=== PATIENT | female | born 1970 | race Caucasian/White ===

== ENCOUNTER → 2017-03-06 | Outpatient (CLI) | payer OTHER ==
[2017-03-06 10:34] LABS: ALT 24 U/L (9-52); AST 19 U/L (14-36); Alkaline Phosphatase 72 U/L (38-126); Anion Gap 11 mmol/L; Blood Urea Nitrogen 17 mg/dL (7-17); Calcium 9.4 mg/dL (8.4-10.2); Carbon Dioxide 23 mmol/L (22-30); Chloride 105 mmol/L (98-107); Cholesterol 283 mg/dL (<200); Glucose 111 mg/dL (74-99); HDL Cholesterol 56 mg/dL (40-60); Non-African American GFR(MDRD) >60 (>60 ml/min/1.73 sqM); Potassium 3.8 mmol/L (3.5-5.1); Sodium 139 mmol/L (137-145); Total Bilirubin 0.5 mg/dL (0.2-1.3); Total Protein 7.5 g/dL (6.3-8.2); Triglycerides 169 mg/dL (<150)
== END | disposition home or self-care (01) ==
LOC: LABWHC1 09:26
PROVIDERS: ATTEND Internal Medicine Cardiovascular Disease
DX: E78.5 Hyperlipidemia, unspecified (principal); R06.02 Shortness of breath
CPT/HCPCS: 36415; 80053; 80061; 83880

== ENCOUNTER 2017-04-10 22:24 | Emergency (ER) | payer OTHER ==
[2017-04-10] MEDS ORDERED: PROPARACAINE 0.5% OPHTH DROPS 15 ML BTL BOTH EYES STA (22:59)
--- NOTE | 2017-04-10 23:04 | ED ---
ENT HPI - General Chief complaint: ENT Stated complaint: eye drainage & burning Time Seen by Provider: 04/10/17 22:53 Source: patient, RN notes reviewed, old records reviewed Mode of arrival: ambulatory Limitations: no limitations - History of Present Illness Initial comments: 47-year-old female complains of bilateral eye pain and burning and drainage for the past 3 days. She reports that he pain originally started on Thursday. She states that she was recently got over an eye infection and was put on polymyxin B drops. Patient reports that she stop the drops on Thursday. She was good for a day. Then the irritation restarted on Thursday. She reports that she thinks she may have been bit by a mosquito near in her left eye. She states it's a clear fluid in denies any yellow or green drainage. She reports that her eyes feel dry. She states that the eye pain is worse in the left eye. She denies any fevers or chills. She reports she does have a mild headache due to the eye pain. Patient reports that she did start to wear her contacts yesterday on despite having the eye pain. She did not wear her contacts today. - Related Data Previous Rx's Medication Instructions Recorded Atorvastatin [Lipitor] 10 mg PO HS #30 tab 08/28/16 Docusate [Colace] 100 mg PO BID #60 cap 08/28/16 EPINEPHrine (Auto Inject) [Epipen] 0.3 mg IM ONCE PRN #1 syringe 08/28/16 LORazepam [Ativan] 0.5 mg PO HS #30 tab 08/28/16 Levothyroxine Sodium [Synthroid] 75 mcg PO DAILY #30 tab 08/28/16 Loratadine [Claritin] 5 mg PO DAILY #30 tab 08/28/16 Nicotine 14Mg/24Hr Patch [Habitrol] 1 patch TRANSDERM DAILY #28 patch 08/28/16 Pantoprazole Sodium [Protonix] 40 mg PO DAILY #30 tablet.dr 08/28/16 Propranolol [Inderal] 40 mg PO BID #60 tab 08/28/16 Tiotropium 18 Mcg/Puff [Spiriva] 1 cap INHALATION RT-DAILY #1 08/28/16 inhaler Topiramate [Topamax] 50 mg PO BID #120 tab 08/28/16 Triamterene-Hctz 37.5-25Mg 1 cap PO DAILY #30 cap 08/28/16 [Dyazide 37.5-25 Capsule] Venlafaxine HCl ER [Effexor XR] 150 mg PO DAILY #30 cap.er.24h 08/28/16 risperiDONE [RisperDAL] 2 mg PO BID #60 tab 08/28/16 Ciprofloxacin Ophth Soln [Cipro 1 drops LEFT EYE Q4HR #1 bottle 04/10/17 0.3% Ophth Soln] Ketotifen 0.025% Ophth Soln 1 drop BOTH EYES BID #1 bottle 04/10/17 [Zaditor] Allergies Allergy/AdvReac Type Severity Reaction Status Date / Time furosemide [From Lasix] Allergy hypotension Verified 04/10/17 22:49 ibuprofen [From Motrin] Allergy Unknown Verified 04/10/17 22:49 Review of Systems ROS Statement: Those systems with pertinent positive or pertinent negative responses have been documented in the HPI. ROS Other: All systems not noted in ROS Statement are negative. Past Medical History Past Medical History: Asthma, Heart Failure, COPD, Hyperlipidemia, Hypertension , Myocardial Infarction ([place]), Seizure Disorder, Thyroid Disorder Additional Past Medical History / Comment(s): IBS, colitis, fibromyalgia, restless legs flexed syndrome, migraine, vitamin D deficiency, left breast mass a 1 cm, gastritis Last Myocardial Infarction Date:: unknown History of Any Multi-Drug Resistant Organisms: None Reported Past Surgical History: Appendectomy, Hysterectomy Additional Past Surgical History / Comment(s): D&C, uterine ablation, bilateral arthroscopic knee of the knees Past Anesthesia/Blood Transfusion Reactions: No Reported Reaction Past Psychological History: Anxiety, Bipolar, Depression Smoking Status: Current every day smoker Past Alcohol Use History: Rare Past Drug Use History: Marijuana - Past Family History Father Additional Family Medical History / Comment(s): Father is 59 years of age with history of heart problems. Mother Additional Family Medical History / Comment(s): Mother is alive at age 62 with history of heart failure. Brother(s) Additional Family Medical History / Comment(s): Patient had 1 brother that at 5 months of age. Sister(s) Additional Family Medical History / Comment(s): Patient has one sister with history of depression and bipolar. Patient has 2 half-sisters and one at age 26 from overdose. Patient does not have any children. General Exam - General Exam Comments Initial Comments: 47-year-old female. No distress. Limitations: no limitations General appearance: alert, in no apparent distress Head exam: Present: atraumatic, normocephalic, normal inspection Eye exam: Present: normal appearance, PERRL, EOMI, conjunctival injection ( Bilateral conjunctival injection. Left eye is worse on the right .). Absent: scleral icterus, periorbital swelling ENT exam: Present: normal exam, normal oropharynx, mucous membranes moist Neck exam: Present: normal inspection. Absent: tenderness, meningismus, lymphadenopathy Respiratory exam: Present: normal lung sounds bilaterally. Absent: respiratory distress, wheezes, rales, rhonchi, stridor Cardiovascular Exam: Present: regular rate, normal rhythm, normal heart sounds. Absent: systolic murmur, diastolic murmur, rubs, gallop, clicks GI/Abdominal exam: Present: soft, normal bowel sounds. Absent: distended, tenderness, guarding, rebound, rigid Extremities exam: Present: normal inspection, full ROM, normal capillary refill. Absent: tenderness, pedal edema, joint swelling, calf tenderness Back exam: Present: normal inspection Neurological exam: Present: alert, oriented X3, CN II-XII intact Psychiatric exam: Present: normal affect, normal mood Skin exam: Present: warm, dry, intact, normal color. Absent: rash Course Vital Signs 04/10/17 22:45 Temperature 97.5 F L Pulse Rate 76 Respiratory 20 Rate Blood Pressure 100/51 O2 Sat by Pulse 97 Oximetry Medical Decision Making - Medical Decision Making 47-year-old female complains of bilateral eye pain and burning and drainage for the past 3 days. She reports that he pain originally started on Thursday. She states that she was recently got over an eye infection and was put on polymyxin B drops. Patient reports that she stop the drops on Thursday. She was good for a day. Then the irritation restarted on Thursday. She reports that she thinks she may have been bit by a mosquito near in her left eye. She states it's a clear fluid in denies any yellow or green drainage. She reports that her eyes feel dry. Patient does have significant conjunctivitis in the left eye. There is an area of firmness towards the epicanthus consistent with possible insect or mosquito bite. Patient's were seen eye exam was performed shows no evidence of ulcerations. Pressures were normal at 16 and for the right eye and 15 for the left eye. Patient visual acuity was mildly disturbed with 20/50 of the left eye and 20/30 of the right eye. She reports that she is typically 20/30 does have to wear glasses and contacts. Patient has been advised to use antihistamines as it does appear to be somewhat of an ALLERGIC reaction over the eye. Patient will be started on Zaditor drops. Given she also wears contacts and has been rubbing her eyes frequently and would also like to cover her for infection. She is recently finished polymyxin B drops. Discussed that with contacts there is more likely to have a soonest pseudomonas infection and she will be started on Cipro drops. Discussed no use of contacts. Discussed if it worsens he needs return to the emergency department. Patient agrees to treatment plan will comply. Return parameters were discussed. Discussed close follow-up with egg worker referral. Disposition Clinical Impression: Allergic conjunctivitis, left eye Disposition: HOME SELF-CARE Condition: Good Instructions: Conjunctivitis (ED) Additional Instructions: Patient is to follow-up with primary care provider as well as egg worker. No contact use until cleared. Use the ALLERGY drops and continue to take Benadryl. Patient should take Motrin and Tylenol for pain. Patient also use the antihistamine drops, and antibiotic drops. Prescriptions: Ciprofloxacin Ophth Soln [Cipro 0.3% Ophth Soln] 1 drops LEFT EYE Q4HR #1 bottle Ketotifen 0.025% Ophth Soln [Zaditor] 1 drop BOTH EYES BID #1 bottle Referrals: Evelio Álvarez MD [Primary Care Provider] - 1-2 days Edward Hall MD [STAFF PHYSICIAN] - 1-2 days Time of Disposition: 23:27
[2017-04-10] MEDS ORDERED: CIPROFLOXACIN 0.3% OPHTH SOLN 2.5 ML BTL LEFT EYE STA (23:19)
[2017-04-10] MEDS ORDERED: KETOTIFEN 0.025% OPHTH DROPS 5 ML BTL LEFT EYE STA (23:19)
[2017-04-10 23:38] VITALS: BP 118/74; PULSE 63; RESP 15; TEMP 97.9
== END 2017-04-10 23:37 | disposition home or self-care (01) ==
LOC: EC 22:24
DX: H10.12 Acute atopic conjunctivitis, left eye (principal); F17.200 Nicotine dependence, unspecified, uncomplicated; Z88.6 Allergy status to analgesic agent; Z88.8 Allergy status to other drugs, medicaments and biological substances
CPT/HCPCS: 99283

== ENCOUNTER → 2017-04-22 | Outpatient (CLI) | payer OTHER ==
--- NOTE | 2017-04-22 13:58 | MM ---
Reason for exam: clinical finding. History: Patient is postmenopausal and is nulliparous. Family history of breast cancer in paternal aunt at age 42. Took hormonal contraceptives for 6 months. Indicated problem(s): lump or thickening in the left breast. Physical Findings: Nurse Summary: 0.5cm nodule in the left breast at 6 o'clock (nurse jack). [facility] Diagnostic Mammo w CAD MIKE Bilateral CC and MLO view(s) were taken. There are scattered fibroglandular densities. There is no discrete abnormality including area of concern. No significant new findings when compared with previous films. These results were verbally communicated with the patient and result sheet given to the patient on 04/22/17. ASSESSMENT: Incomplete: need additional imaging evaluation, BI-RAD 0 RECOMMENDATION: Ultrasound of the left breast. Manage patient on a clinical basis.
--- NOTE | 2017-04-22 13:58 | USB ---
Reason for exam: additional evaluation requested from abnormal screening. History: Patient is postmenopausal and is nulliparous. Family history of breast cancer in paternal aunt at age 42. Took hormonal contraceptives for 6 months. US Breast Limited LT Left breast ultrasound demonstrates no cystic or solid lesion seen. These results were verbally communicated with the patient and result sheet given to the patient on 04/22/17. ASSESSMENT: Negative, BI-RAD 1 RECOMMENDATION: Routine screening mammogram of both breasts in 1 year. Manage patient on a clinical basis.
--- NOTE | 2017-04-29 15:44 | P.ARTDOP ---
Arterial Doppler LOWER EXTREMITY ARTERIAL DOPPLER: DATE OF SERVICE: 04/22/2017 Reason for study: Bilateral leg pain. Doppler waveforms: Multiphasic bilaterally throughout. Pulse volume recording: []. Pressure gradients: None. Ankle-brachial indices: Greater than 1 bilaterally. Toe pressures: [] on the right, [] on the left Impression: Normal study.
== END | disposition home or self-care (01) ==
LOC: RADMAMWWP 11:54
PROVIDERS: ATTEND Internal Medicine
DX: N63 Unspecified lump in breast (principal); M79.1 Myalgia
CPT/HCPCS: 93922; 76642; G0204

== ENCOUNTER → 2017-04-23 | Outpatient (CLI) | payer OTHER ==
--- NOTE | 2017-04-23 11:45 | MR ---
EXAMINATION TYPE: MR brain/cspine wo DATE OF EXAM: 04/23/2017 10:56 AM COMPARISON: NONE HISTORY: Neck pain, leg spasms, loss of balance Multiplanar and multispin-echo imaging of the brain was performed . The ventricles, basal cisterns and sulci overlying the cerebral convexities are within normal limits. There is no evidence for midline shift or mass effect. Acute intracranial hemorrhage or extra-axial collection is not evident. Approximately 4to 5 tiny nonspecific foci of increased signal within the deep white matter of both ce rebral hemispheres. No acute edema is identified. The paranasal sinuses and mastoid air cells are well-aerated. IMPRESSION: Nonspecific white matter changes. EXAMINATION TYPE: MR brain/cspine wo DATE OF EXAM: 04/23/2017 10:56 AM COMPARISON: NONE HISTORY: Neck pain, leg spasms, loss of balance Multiplanar MultiSpin echo imaging of the cervical spine was performed. Comparison: none C2-C3: No evidence for degenerative disc disease. No disc bulge/herniation or protrusion. No Canal stenosis. Foramina are patent bilaterally. C3-C4: Mild disc desiccation noted. Left paracentral disc bulge mildly effaces the ventral thecal sac . No evidence for central stenosis. No foraminal encroachment identified. C4-C5: Mild disc desiccation noted. Posterocentral disc bulge with small disc protrusion. Mild efface ment ventral thecal sac. No evidence for cord contact or central stenosis. Foramina are patent bilate rally. C5-C6: Moderate disc desiccation with mild to moderate circumferential disc bulge. Small left paracen tral disc protrusion suspected. Mild encapsulating spur resulting in hard disc. Effacement of the ngozi tral thecal sac with mild constriction noted however no definite overt stenosis is present at this ti me. Mild left foraminal encroachment is identified. C6-C7: Mild disc desiccation is identified. No disc bulge/herniation or protrusion. No Canal stenosi s. Foramina are patent bilaterally. C7-T1: No evidence for degenerative disc disease. No disc bulge/herniation or protrusion. No Canal stenosis. Foramina are patent bilaterally. Cervical segments are intact. There is normal alignment. Cervical spinal cord is of normal signal. Craniovertebral junction relationships are within normal limits. IMPRESSION: 1. Multilevel degenerative disc disease. 2. Disc bulging and small protrusions as discussed. Constriction of the ankle sac at C5-[address] stenosis. See above.
== END | disposition home or self-care (01) ==
LOC: RADMRIMAIN 09:42
PROVIDERS: ATTEND Psychiatry & Neurology Neurology
DX: R90.82 White matter disease, unspecified (principal); M50.30 Other cervical disc degeneration, unspecified cervical region; M50.21 Other cervical disc displacement, high cervical region
CPT/HCPCS: 70551; 72141

== ENCOUNTER 2017-04-30 20:06 | Inpatient (IN) | payer OTHER ==
[2017-04-30] MEDS ORDERED: SODIUM CHLORIDE 0.9% 1,000 ML IV STA (21:43)
[2017-04-30] MEDS ORDERED: levETIRAcetam IV 500 MG in SODIUM CHLORIDE 0.9% 100 ML IVPB STA (21:45)
[2017-04-30] MEDS ORDERED: NALOXONE 0.4 MG/ML 1 ML VIAL IV PRN (22:02)
--- NOTE | 2017-04-30 22:07 | ED ---
Seizure HPI <Philipp Sandhu - Last Filed: 04/30/17 22:14> - General Source: patient Mode of arrival: wheelchair Limitations: no limitations <Ceci Flores - Last Filed: 04/30/17 22:28> - General Chief Complaint: Seizure Stated Complaint: Seizure Time Seen by Provider: 04/30/17 20:51 - History of Present Illness Initial Comments: 47-year-old female patient presents to emergency department today for evaluation after having a seizure at home. Patient was seen earlier in the department for similar symptoms and admitted, however left from the fifth floor against medical advice. Patient states that when she got home she was resting on the couch, patient states that next thing she knew she woke up, stated she was very groggy and confused. Patient believed she had a seizure at that time. She denies any loss of bowel or bladder function. She states that no one was home at the time and therefore the episode was unwitnessed. Patient states that she currently has a migraine headache, feels very tired, and is requesting to be admitted again. Patient denies any neck pain, chest pain, shortness of breath, abdominal pain, nausea, vomiting, difficulty with urination or bowel movements. She denies any fever or chills. Denies any falls or injuries from the seizure. Patient states that the seizures began over the last 2 weeks. She denies any history of seizures prior to this. Patient states that she did have an MRI for history of migraines and neck pain 1 week ago. (Ceci Flores) - Related Data Home Medications Medication Instructions Recorded Confirmed Albuterol Inhaler [Ventolin Hfa 1 - 2 puff INHALATION RT-Q6H PRN 04/30/17 Inhaler] Albuterol Nebulized [Ventolin 2.5 mg INHALATION RT-Q4H 04/30/17 04/30/17 Nebulized] Asenapine Maleate [Saphris] 10 mg SUBLINGUAL BID 04/30/17 04/30/17 Estradiol [Estrace] 1 mg PO DAILY 04/30/17 04/30/17 Fluticasone/Vilanterol [Breo 1 puff INHALATION RT-DAILY 04/30/17 04/30/17 Ellipta 100-25 Mcg Inhaler] Gabapentin 600 mg PO TID 04/30/17 04/30/17 Sertraline [Zoloft] 150 mg PO DAILY 04/30/17 04/30/17 Topiramate [Topamax] 25 mg PO BID 04/30/17 04/30/17 cloNIDine HCL [cloNIDine HCL] 0.3 mg PO TID 04/30/17 04/30/17 rOPINIRole HCL [Requip] 1.5 mg PO HS 04/30/17 04/30/17 traZODone HCL [Desyrel] 200 mg PO HS 04/30/17 04/30/17 Previous Rx's Medication Instructions Recorded Atorvastatin [Lipitor] 10 mg PO HS #30 tab 08/28/16 Docusate [Colace] 100 mg PO BID #60 cap 08/28/16 EPINEPHrine (Auto Inject) [Epipen] 0.3 mg IM ONCE PRN #1 syringe 08/28/16 Levothyroxine Sodium [Synthroid] 75 mcg PO DAILY #30 tab 08/28/16 Loratadine [Claritin] 5 mg PO DAILY #30 tab 08/28/16 Pantoprazole Sodium [Protonix] 40 mg PO DAILY #30 tablet.dr 08/28/16 Propranolol [Inderal] 40 mg PO BID #60 tab 08/28/16 Tiotropium 18 Mcg/Puff [Spiriva] 1 cap INHALATION RT-DAILY #1 08/28/16 inhaler Triamterene-Hctz 37.5-25Mg 1 cap PO DAILY #30 cap 08/28/16 [Dyazide 37.5-25 Capsule] Allergies Allergy/AdvReac Type Severity Reaction Status Date / Time bee venom protein (honey bee) Allergy Anaphylaxis Verified 04/30/17 20:50 furosemide [From Lasix] Allergy hypotension Verified 04/30/17 20:50 ibuprofen [From Motrin] Allergy Unknown Verified 04/30/17 20:50 Review of Systems ROS Other: All systems not noted in ROS Statement are negative. <Philipp Sandhu - Last Filed: 04/30/17 22:14> ROS Other: All systems not noted in ROS Statement are negative. <Ceci Flores - Last Filed: 04/30/17 22:28> ROS Statement: Those systems with pertinent positive or pertinent negative responses have been documented in the HPI. Past Medical History Past Medical History: Asthma, Heart Failure, COPD, Hyperlipidemia, Hypertension , Myocardial Infarction ([place]), Seizure Disorder, Thyroid Disorder Additional Past Medical History / Comment(s): Migraines which have recently been more severe, new seizures per pt, IBS, colitis, fibromyalgia, restless legs syndrome, vitamin D deficiency, left breast mass a 1 cm being monitored, gastritis, hiatal hernia, hypothyroid. Pt states she had a stress test yesterday at [facility] and a recent MRI of head/neck and a recent mammogram. Last Myocardial Infarction Date:: Pt states 2013-hospitalized at [facility] History of Any Multi-Drug Resistant Organisms: None Reported Past Surgical History: Appendectomy, Hysterectomy, Orthopedic Surgery, Uterine Ablation Additional Past Surgical History / Comment(s): D&C, bilateral arthroscopic knee sx, EGD/colonoscopy Past Anesthesia/Blood Transfusion Reactions: No Reported Reaction Past Psychological History: Anxiety, Bipolar, Depression Smoking Status: Current every day smoker Past Alcohol Use History: None Reported Past Drug Use History: Marijuana - Past Family History Father Family Medical History: Cancer Additional Family Medical History / Comment(s): Father of pancreatic cancer at the age of 62yrs. Mother Family Medical History: Congestive Heart Failure (CHF) Additional Family Medical History / Comment(s): Mother of CHF at the age of 60yrs. Brother(s) Additional Family Medical History / Comment(s): Patient had 1 brother that at 5 months of age. Sister(s) Additional Family Medical History / Comment(s): Patient has one sister with history of depression and bipolar. Patient has 2 half-sisters and one at age 26 from overdose. Patient does not have any children. <Ceci Flores - Last Filed: 04/30/17 22:28> General Exam Limitations: no limitations General appearance: in no apparent distress, other (Patient is drowsy) Head exam: Present: atraumatic, normocephalic, normal inspection Eye exam: Present: normal appearance, PERRL, EOMI. Absent: scleral icterus, conjunctival injection, periorbital swelling ENT exam: Present: normal exam, normal oropharynx, mucous membranes moist Neck exam: Present: normal inspection. Absent: tenderness, meningismus, lymphadenopathy Respiratory exam: Present: normal lung sounds bilaterally. Absent: respiratory distress, wheezes, rales, rhonchi, stridor Cardiovascular Exam: Present: regular rate, normal rhythm, normal heart sounds. Absent: systolic murmur, diastolic murmur, rubs, gallop, clicks GI/Abdominal exam: Present: soft, normal bowel sounds. Absent: distended, tenderness, guarding, rebound, rigid Extremities exam: Present: normal inspection, full ROM, normal capillary refill. Absent: tenderness, pedal edema, joint swelling, calf tenderness Back exam: Present: normal inspection Neurological exam: Present: oriented X3, CN II-XII intact. Absent: alert ( Drowsy), other (Patient is arousable to verbal stimuli. Slow to respond however answers are appropriate. ) Psychiatric exam: Present: normal affect, normal mood Skin exam: Present: warm, dry, intact, normal color. Absent: rash <Ceci Flores - Last Filed: 04/30/17 22:28> Medical Decision Making <Philipp Sandhu - Last Filed: 04/30/17 22:14> <Ceci Flores - Last Filed: 04/30/17 22:28> - Medical Decision Making Patient reportedly left AMA earlier and went home and had another seizure. Case was discussed with Dr. Laws who will readmit the [facility] call. (Philipp Sandhu) 47-year-old female patient sent to emergency department today for evaluation after experiencing a seizure at home. The patient reportedly left AMA earlier today after being admitted for a similar episode. Patient was brought back in stating that she agrees to be admitted again. Lab work was performed. Keppra 500 mg given in emergency department. No CT of the brain was ordered as patient did have an MRI one week ago, she states that seizures did start prior to the MRI however she did not inform her neurologist of this. Dr. Sandhu by attending did speak to Dr. Delong and patient will be admitted for fruther neurological evaluation. (Ceci Flores) Disposition <Philipp Sandhu - Last Filed: 04/30/17 22:14> Decision to Admit Reason: Admit from EC Decision Date: 04/30/17 Decision Time: 22:07 <Ceci Flores - Last Filed: 04/30/17 22:28> Clinical Impression: New onset seizure Disposition: ADMITTED IP TO THIS [facility] Condition: Fair Referrals: Evelio Álvarez MD [Primary Care Provider] - 1-2 days
[2017-04-30 22:25] LABS: Appearance,Urine Clear (Clear); Bilirubin,Urine Negative (Negative); Glucose,Urine (UA) Negative (Negative); Ketones,Urine Negative (Negative); Leukocyte Esterase,Urine Negative (Negative); Nitrite,Urine Negative (Negative); PH, Urine 6.5 (5.0-8.0); Protein,Urine Negative (Negative); Specific Gravity,Urine 1.006 (1.001-1.035); UA Billing (MACRO vs. MICRO) CHEM; Urobilinogen,Urine <2.0 mg/dL (<2.0)
[2017-04-30 22:48] LABS: Basophils % (A) 1 %; CH 33.2; CHCM 34.1; Eosinophils % (A) 3 %; HCT 43.8 % (34.0-46.0); HDW 2.45; HGB 15.2 gm/dL (11.4-16.0); Luc % (Auto) 2; Lymphocytes % (A) 33 %; MCHC 34.8 g/dL (31.0-37.0); MCV 97.8 fL (80.0-100.0); Mean Platelet Volume 6.4; Monocytes % (A) 6 %; Neutrophils # (A) 6.6 k/uL (1.3-7.7); Neutrophils % (A) 56 %; RBC 4.47 m/uL (3.80-5.40); RDW 12.7 % (11.5-15.5); WBC 11.8 k/uL (3.8-10.6); WBC (Perox) 11.62
[2017-04-30 22:49] LABS: Basophils # (A) 0.1 k/uL (0-0.2); Eosinophils # (A) 0.4 k/uL (0-0.7); Luc # (Auto) 0.28; Lymphocytes # (A) 3.8 k/uL (1.0-4.8); Monocytes # (A) 0.7 k/uL (0-1.0)
[2017-04-30 22:57] LABS: ALT 28 U/L (9-52); AST 21 U/L (14-36); Alkaline Phosphatase 67 U/L (38-126); Anion Gap 7 mmol/L; Blood Urea Nitrogen 10 mg/dL (7-17); Calcium 9.1 mg/dL (8.4-10.2); Carbon Dioxide 26 mmol/L (22-30); Chloride 108 mmol/L (98-107); Glucose 74 mg/dL (74-99); Non-African American GFR(MDRD) >60 (>60 ml/min/1.73 sqM); Potassium 3.3 mmol/L (3.5-5.1); Sodium 141 mmol/L (137-145); Total Bilirubin 0.3 mg/dL (0.2-1.3); Total Protein 6.6 g/dL (6.3-8.2)
--- NOTE | 2017-05-01 00:55 | P.PN ---
Subjective Principal diagnosis: Seizures Patient is a 47 years old female sent hypertension bipolar disorder headaches and a recent seizure episodes left the hospital AGAINST MEDICAL ADVICE, after her departure according to her she was doing okay until 6 PM when she had seizure was generalized was of consciousness unwitnessed with no apparent serious injury, she is sleepy but able to provide information and history was in the room was well, according to the patient she left because, "they messed up my schedule medication", the was upset at her and are not to let her go again if she wants to leave AMA however excipient to him that this is illegal and we have to abide by her wishes if she isn't appropriate mental state, patient stated that she did not have marijuana which she uses medically but her drug screen came back positive for THC, denied any change in her medication or any other symptoms Objective - Vital Signs Vital signs: Vital Signs Temp 96.8 F L 05/01/17 00:29 Pulse 78 05/01/17 00:29 Resp 18 05/01/17 00:29 BP 110/64 05/01/17 00:29 Pulse Ox 95 05/01/17 00:29 Intake & Output 04/30/17 04/30/17 05/01/17 06:59 18:59 06:59 Weight 78.018 kg - Constitutional General appearance: Present: average body habitus, disheveled, no acute distress - EENT Eyes: Present: PERRLA, normal appearance. Absent: photophobia, ptosis Ears: bilateral: normal - Neck Neck: Present: normal ROM, thyromegaly. Absent: lymphadenopathy, rigidity Carotids: bilateral: upstroke normal Thyroid: bilateral: normal size - Respiratory Respiratory: bilateral: CTA, negative: rales, rhonchi - Cardiovascular Rhythm: regular Heart sounds: normal: S1, S2 Abnormal Heart Sounds: Absent: systolic murmur, diastolic murmur, S4 Gallop - Gastrointestinal General gastrointestinal: Present: normal bowel sounds, soft. Absent: distended , hepatomegaly, tenderness - Integumentary Integumentary: Present: normal, normal turgor. Absent: cellulitis, flushed, jaundiced, rash - Neurologic Neurologic: Present: CNII-XII intact. Absent: focal deficits - Psychiatric Psychiatric: Present: A&O x's 3, appropriate affect, intact judgment & insight - Labs CBC & Chem 7: 04/30/17 22:30 04/30/17 22:30 Labs: Abnormal Lab Results - Last 24 Hours (Table) 04/30/17 04/30/17 04/30/17 Range/Units 22:05 22:30 22:30 WBC 11.8 H (3.8-10.6) k/uL Potassium 3.3 L (3.5-5.1) mmol/L Chloride 108 H (98-107) mmol/L Ur Barbiturates Screen Detected H (NotDetected) U Benzodiazepines Scrn Detected H (NotDetected) U Marijuana (THC) Screen Detected H (NotDetected) Assessment and Plan (1) New onset seizure Narrative/Plan: As per patient as per above the patient is back with seizures after leaving AMA. Explained to her and counseled her extensively along with her and also told her questionsI and addressed all her concerns, I explained the importance of following up medical recommendation she agreed and promised to comply, we will reconsult neurology place her on telemetry supplement his oxygen provided Ativan IV 1 mg as needed for seizures every 4 hours, we will also order neurochecks to be done every 2-4 hours, I iasked to provide a list of her medication with schedule and i will reconcil and resume.. Her seizures could be caused by TSC, we will await neurology recommendation she had a negative MRI as an outpatient and here her head CAT scan is negative Status: Acute (2) Bipolar 1 disorder, manic, moderate Narrative/Plan: This is chronic problem , we will obtain psychiatriy consult and resume her medication for now Status: Chronic (3) Hypertension Narrative/Plan: Blood pressure stable we will review medication and adjust as needed Status: Chronic Time with Patient: Greater than 30
[2017-05-01] MEDS ORDERED: ALBUTEROL NEBULIZED 2.5 MG/3 ML INHALATION PRN (04:50)
[2017-05-01] MEDS ORDERED: ACETAMINOPHEN TAB 325 MG TAB PO PRN (04:55)
[2017-05-01] MEDS ORDERED: cloNIDine HCL 0.1 MG TAB PO ONE (06:00)
[2017-05-01] MEDS ORDERED: GABAPENTIN 300 MG CAP PO ONE (06:00)
[2017-05-01] MEDS: LEVOTHYROXINE 75 MCG TAB PO SCH (06:29)
[2017-05-01] MEDS: SERTRALINE 100 MG TAB PO SCH (08:15)
[2017-05-01] MEDS: PROPRANOLOL 40 MG TAB PO SCH ×2 (08:15→20:05)
[2017-05-01] MEDS: ALBUTEROL NEBULIZED 2.5 MG/3 ML INHALATION SCH ×4 (08:15→20:01)
[2017-05-01] MEDS: ESTRADIOL 0.5 MG TAB PO SCH (08:15)
[2017-05-01] MEDS: SYMBICORT 80-4.5 MCG INHALER INHALATION SCH ×2 (08:15→20:01)
[2017-05-01] MEDS: ASENAPINE 5 MG TAB SUBLINGUAL SCH ×2 (08:16→21:52)
[2017-05-01] MEDS: LORATADINE 10 MG TAB PO SCH (08:16)
[2017-05-01] MEDS: TIOTROPIUM 18 MCG/PUFF INHALER INHALATION SCH (08:16)
[2017-05-01] MEDS: DOCUSATE 100 MG CAP PO SCH ×2 (08:17→20:05)
[2017-05-01] MEDS: levETIRAcetam IV 500 MG in SODIUM CHLORIDE 0.9% 100 ML IVPB SCH ×2 (08:17→21:51)
[2017-05-01] MEDS: TRIAMTERENE-HCTZ 37.5-25MG 1 EACH CAP PO SCH (08:18)
[2017-05-01] MEDS: PANTOPRAZOLE 40 MG TABLET PO SCH (08:18)
[2017-05-01] MEDS: TOPIRAMATE 25 MG TAB PO SCH ×2 (08:18→20:06)
[2017-05-01] MEDS: NICOTINE 21MG/24HR PATCH TRANSDERM SCH (08:19)
[2017-05-01] MEDS: BUTALB/APAP/CAFF 50-325-40MG TAB PO PRN ×3 (11:14→20:09)
[2017-05-01] MEDS ORDERED: POTASSIUM CHLORIDE ORAL LIQUID 40 MEQ/30 ML CUP PO ONE (11:19)
[2017-05-01] MEDS: cloNIDine HCL 0.1 MG TAB PO SCH ×2 (15:01→21:51)
[2017-05-01] MEDS: GABAPENTIN 300 MG CAP PO SCH ×2 (15:02→21:51)
--- NOTE | 2017-05-01 16:21 | P.PN ---
Subjective Principal diagnosis: Seizures patient is a 47-year-old female with a past medical history of migraine, irritable bowel syndrome, anxiety and mental illness, and recent onset of seizure disorder who initially had presented on 04/30 with seizures. She then left AMA 04/30 with home and additional seizure. She really presented to the emergency department. She was admitted for further evaluation of her seizure. She had been seeing Dr. Powell in the clinic and had a recent MRI of the brain. She admits to increased stress. She has not had any changes in her medications by formerly [facility]. After a long discussion she feels that her seizures may be brought on by stress. Her significant other was not a witness to the last seizure. Patient seen and examined at bedside. She complains of a headache. She believes this is due to her Topamax being decreased approximately 7 months ago. She has not had any additional seizures since admission. She is upset and tearful. She denies any chest pain, shortness of breath, nausea, vomiting, or diarrhea. She denies any unusual weakness or numbness. Objective - Vital Signs Vital signs: Vital Signs Temp 96.7 F L 05/01/17 07:00 Pulse 88 05/01/17 08:25 Resp 20 05/01/17 07:00 BP 121/65 05/01/17 07:00 Pulse Ox 98 05/01/17 08:15 Intake & Output 04/30/17 05/01/17 05/01/17 18:59 06:59 18:59 Intake Total 200 Balance 200 Weight 78.018 kg Intake: Oral 200 Other: # Voids 1 - Exam General: non toxic, no distress, appears at stated age Derm: no rashes, no lesions Head: atraumatic, normocephalic, symmetric Eyes: EOMI, no lid lag, anicteric sclera ENT: no post nasal drip, no thrush Mouth: no lip lesion, mucus membranes moist Cardiovascular: S1S2 reg, no murmur, positive posterior tibial pulse bilateral, Lungs: CTA bilateral, no rhonchi, no rales , no accessory muscle use Abdominal: soft, nontender to palpation, no guarding, no appreciable organomegaly Ext: no gross muscle atrophy, no edema, no contractures Neuro: CN II-XI grossly intact, no focal neuro deficits Psych: Alert, oriented, anxious - Labs CBC & Chem 7: 04/30/17 22:30 04/30/17 22:30 Labs: Abnormal Lab Results - Last 24 Hours (Table) 04/30/17 04/30/17 04/30/17 Range/Units 22:05 22:30 22:30 WBC 11.8 H (3.8-10.6) k/uL Potassium 3.3 L (3.5-5.1) mmol/L Chloride 108 H (98-107) mmol/L Ur Barbiturates Screen Detected H (NotDetected) U Benzodiazepines Scrn Detected H (NotDetected) U Marijuana (THC) Screen Detected H (NotDetected) Assessment and Plan Plan: # breakthrough seizure with recently diagnosed seizure disorder8. Continue Keppra, seizure precautions, neuro checks, EEG,await neurology evaluation, ? stress induced, ? pseudoseizure activity # anxiety with history of bipolar and depression-patient denies suicidal ideation, consult psychiatry, maintain home psychiatric medications, check TSH #migraine headache-continue Topamax will not increase at this time until evaluated by neurology, as needed Fioricet # Leukocytosis undetermined etiology-repeat CBC in a.m., may be secondary to seizure activity # hypokalemia-replace and recheck #HTN- continue clonidine Chronic: IVS Fibromyalgia Restless leg syndrome Vitamin D deficiency Hiatal hernia Hypothyroidism Dyslipidemia Congestive heart failure, chronic, unknown ejection fraction DVT prophylaxis: early ambulation Discussed with: patient, nursing on phone, significant other Anticipated discharge: 24-48 hours if seizure free Anticipated discharge place: home A total of 45 minutes was spent on the care of this complex patient more than 50% of the time was spent in counseling and care coordination.
[2017-05-01] MEDS ORDERED: traZODone HCL 100 MG TAB PO SCH (21:00)
[2017-05-01] MEDS ORDERED: ATORVASTATIN 10 MG TAB PO SCH (21:00)
[2017-05-02] MEDS: BUTALB/APAP/CAFF 50-325-40MG TAB PO PRN ×2 (02:55→07:48)
[2017-05-02] MEDS: LEVOTHYROXINE 75 MCG TAB PO SCH (06:32)
[2017-05-02 07:27] LABS: CH 33.6; CHCM 33.6; HCT 44.2 % (34.0-46.0); HDW 2.41; HGB 14.4 gm/dL (11.4-16.0); MCH 32.7 pg (25.0-35.0); MCHC 32.6 g/dL (31.0-37.0); MCV 100.3 fL (80.0-100.0); Mean Platelet Volume 7.3; RBC 4.41 m/uL (3.80-5.40); RDW 13.3 % (11.5-15.5); WBC 9.5 k/uL (3.8-10.6)
[2017-05-02 07:49] LABS: ALT 30 U/L (9-52); AST 17 U/L (14-36); Alkaline Phosphatase 69 U/L (38-126); Anion Gap 9 mmol/L; Blood Urea Nitrogen 16 mg/dL (7-17); Calcium 8.7 mg/dL (8.4-10.2); Carbon Dioxide 22 mmol/L (22-30); Chloride 110 mmol/L (98-107); Glucose 108 mg/dL (74-99); Magnesium 1.6 mg/dL (1.6-2.3); Non-African American GFR(MDRD) >60 (>60 ml/min/1.73 sqM); Potassium 3.8 mmol/L (3.5-5.1); Sodium 141 mmol/L (137-145); Total Bilirubin 0.2 mg/dL (0.2-1.3); Total Protein 6.5 g/dL (6.3-8.2)
[2017-05-02] MEDS: cloNIDine HCL 0.1 MG TAB PO SCH (07:49)
[2017-05-02] MEDS: DOCUSATE 100 MG CAP PO SCH (07:49)
[2017-05-02] MEDS: NICOTINE 21MG/24HR PATCH TRANSDERM SCH (07:49)
[2017-05-02 07:50] VITALS: BP 93/61; PULSE 73; RESP 16; TEMP 96.6
[2017-05-02] MEDS: LORATADINE 10 MG TAB PO SCH (07:51)
[2017-05-02] MEDS: PROPRANOLOL 40 MG TAB PO SCH (07:52)
[2017-05-02] MEDS: SERTRALINE 100 MG TAB PO SCH (07:52)
[2017-05-02] MEDS: PANTOPRAZOLE 40 MG TABLET PO SCH (07:54)
[2017-05-02] MEDS: ESTRADIOL 0.5 MG TAB PO SCH (07:55)
[2017-05-02] MEDS: GABAPENTIN 300 MG CAP PO SCH (07:55)
[2017-05-02] MEDS: ASENAPINE 5 MG TAB SUBLINGUAL SCH (07:55)
[2017-05-02] MEDS: TRIAMTERENE-HCTZ 37.5-25MG 1 EACH CAP PO SCH (07:57)
[2017-05-02] MEDS ORDERED: ALBUTEROL NEBULIZED 2.5 MG/3 ML INHALATION SCH (08:00)
--- NOTE | 2017-05-02 08:46 | P.CNNES ---
History of Present Illness Consult date: 05/01/17 Reason for Consult: Patient with seizure disorder. History of Present Illness: This patient is a 47-year-old right-handed white female who was brought into the emergency room at [facility] for breakthrough seizure. Patient apparently signed out AGAINST MEDICAL ADVICE the day before but returned as she had a seizure at home. Apparently she was sitting on the couch and suddenly developed acute confusion followed by seizure-like activity. She denied any bowel or bladder incontinence during this episode. She apparently has a history of underlying seizure disorder for which she has been taking Keppra for seizure prevention. She had been taking Keppra 500 mg twice a day and Keppra blood level was ordered today. Patient did undergo an MRI of the brain and cervical spine on 04/23/2017. MRI of the brain revealed nonspecific white matter changes. MRI of the cervical spine revealed disc bulging and spinal stenosis at C5-C6 level. Cervical spinal cord signal was normal throughout. The patient states that she also has a history of migraine headaches. She has been taking Topamax 50 mg twice a day. We would recommend that she be maintained on the same dose. We would also recommend that she should increase her Keppra level to 750 mg twice a day. We will obtain a Keppra level for her and adjust her dose as needed. We will obtain routine EEG as well for further evaluation. The patient states that she has not had recent follow-up with her psychologist and psychiatrist. We would recommend possible inpatient psychiatry consultation for the patient. Patient has been noncompliant and has signed out AGAINST MEDICAL ADVICE recently and we have stressed to her that she needs to make a decision for further treatment and care of her multiple complex medical issues. We will continue close neurological evaluation of this patient during this admission. Her overall prognosis at this time remains guarded. Review of Systems Constitutional: Denies chills, Denies fever Eyes: denies blurred vision, denies pain Ears, nose, mouth and throat: Denies headache, Denies sore throat Cardiovascular: Denies chest pain, Denies shortness of breath Respiratory: Denies cough Gastrointestinal: Denies abdominal pain, Denies diarrhea, Denies nausea, Denies vomiting Genitourinary: Denies dysuria, Denies hematuria Musculoskeletal: Denies myalgias Integumentary: Denies pruritus, Denies rash Neurological: Reports change in mentation, Reports confusion, Reports convulsions, Reports headaches, Reports memory loss, Reports seizures, Reports tingling, Denies numbness, Denies weakness Psychiatric: Denies anxiety, Denies depression Endocrine: Denies fatigue, Denies weight change Past Medical History Past Medical History: Asthma, Heart Failure, COPD, Hyperlipidemia, Hypertension , Myocardial Infarction ([place]), Seizure Disorder, Thyroid Disorder Additional Past Medical History / Comment(s): Migraines which have recently been more severe, new seizures per pt, IBS, colitis, fibromyalgia, restless legs syndrome, vitamin D deficiency, left breast mass a 1 cm being monitored, gastritis, hiatal hernia, hypothyroid. Pt states she had a stress test yesterday at [facility] and a recent MRI of head/neck and a recent mammogram. Last Myocardial Infarction Date:: Pt states 2013-hospitalized at [facility] History of Any Multi-Drug Resistant Organisms: None Reported Past Surgical History: Appendectomy, Hysterectomy, Orthopedic Surgery, Uterine Ablation Additional Past Surgical History / Comment(s): D&C, bilateral arthroscopic knee sx, EGD/colonoscopy Past Anesthesia/Blood Transfusion Reactions: No Reported Reaction Past Psychological History: Anxiety, Bipolar, Depression Additional Psychological History / Comment(s): Borderline personality disorder. Pt states her mental health is stable and that her current medications are working well for her. She resides with a roomate. She does not drive, her friend drives her. She is otherwise, independent. Smoking Status: Current every day smoker Past Alcohol Use History: None Reported Additional Past Alcohol Use History / Comment(s): Patient is a smoker of 1 packs per day since she was 16 years of age. She states she has been using medical marijuana on a daily basis, either as edibles or a joint. Past Drug Use History: Marijuana Additional Drug Use History / Comment(s): See above - Past Family History Father Family Medical History: Cancer Additional Family Medical History / Comment(s): Father of pancreatic cancer at the age of 62yrs. Mother Family Medical History: Congestive Heart Failure (CHF) Additional Family Medical History / Comment(s): Mother of CHF at the age of 60yrs. Brother(s) Additional Family Medical History / Comment(s): Patient had 1 brother that at 5 months of age. Sister(s) Additional Family Medical History / Comment(s): Patient has one sister with history of depression and bipolar. Patient has 2 half-sisters and one at age 26 from overdose. Patient does not have any children. Medications and Allergies Home Medications Medication Instructions Recorded Confirmed Type Albuterol Inhaler [Ventolin Hfa 1 - 2 puff INHALATION RT-Q6H PRN 04/30/17 History Inhaler] Albuterol Nebulized [Ventolin 2.5 mg INHALATION RT-Q4H 04/30/17 04/30/17 History Nebulized] Asenapine Maleate [Saphris] 10 mg SUBLINGUAL BID 04/30/17 04/30/17 History Estradiol [Estrace] 1 mg PO DAILY 04/30/17 04/30/17 History Fluticasone/Vilanterol [Breo 1 puff INHALATION RT-DAILY 04/30/17 04/30/17 History Ellipta 100-25 Mcg Inhaler] Gabapentin 600 mg PO TID 04/30/17 04/30/17 History Sertraline [Zoloft] 150 mg PO DAILY 04/30/17 04/30/17 History Topiramate [Topamax] 25 mg PO BID 04/30/17 04/30/17 History cloNIDine HCL [cloNIDine HCL] 0.3 mg PO TID 04/30/17 04/30/17 History rOPINIRole HCL [Requip] 1.5 mg PO HS 04/30/17 04/30/17 History traZODone HCL [Desyrel] 200 mg PO HS 04/30/17 04/30/17 History Allergies Allergy/AdvReac Type Severity Reaction Status Date / Time bee venom protein (honey bee) Allergy Anaphylaxis Verified 04/30/17 20:50 furosemide [From Lasix] Allergy hypotension Verified 04/30/17 20:50 ibuprofen [From Motrin] Allergy Unknown Verified 04/30/17 20:50 Physical Examination - Vital Signs Vital Signs: Vital Signs Temp Pulse Pulse Resp BP Pulse Ox 05/01/17 23:00 97.4 F L 80 18 101/51 96 05/01/17 15:41 18 05/01/17 15:00 97.2 F L 79 18 113/62 97 05/01/17 08:25 88 05/01/17 08:15 84 98 05/01/17 07:00 96.7 F L 94 20 121/65 97 05/01/17 06:35 119/76 05/01/17 00:29 96.8 F L 78 18 110/64 95 Intake and Output 05/01/17 05/01/17 05/02/17 14:59 22:59 06:59 Intake Total 440 200 Balance 440 200 Intake: Oral 440 200 Other: # Voids 3 1 # Bowel Movements 0 - Constitutional General appearance: average body habitus, cooperative - EENT EENT: PERRL, mucous membranes moist - Respiratory Respiratory: lungs clear, normal breath sounds - Cardiovascular Cardiovascular: regular rate, normal S1, normal S2 Extremities: no peripheral edema bilaterally - Gastrointestinal Gastrointestinal: normoactive bowel sounds - Integumentary Integumentary: normal - Neurologic Cranial nerve examination: PERRL, EOMI, VFF, V1/V2/V3 grossly intact, face symmetric, intact gag reflex, intact corneal reflex, normal palatal elevation Speech examination: intact Sensorimotor examination: intact Motor examination - right side: 4/5: biceps, triceps, wrist flexion, wrist extension, transportation security screener, hip flexors, knee extensors, dorsiflexion, toe extension (EHL) , plantarflexion Motor examination - left side: 4/5: biceps, triceps, wrist flexion, wrist extension, transportation security screener, hip flexors, knee extensors, dorsiflexion, toe extension (EHL) , plantarflexion Detailed sensory examination: intact Reflex and gait examination: intact Reflexes: 1+: ankle, bicep, knee, tricep - Musculoskeletal Musculoskeletal: no pain - Psychiatric Psychiatric: mood/affect appropriate, cooperative Results - Laboratory Findings CBC and BMP: 05/02/17 07:11 05/02/17 07:11 Abnormal Lab Findings: Abnormal Labs 04/30/17 04/30/17 04/30/17 22:05 22:30 22:30 WBC 11.8 H Potassium 3.3 L Chloride 108 H Ur Barbiturates Screen Detected H U Benzodiazepines Scrn Detected H U Marijuana (THC) Screen Detected H Assessment and Plan (1) Complex partial epilepsy Status: Acute Code(s): G40.209 - LOCAL-REL SYMPTC EPI W CMPLX PRT SEIZ,NOT NTRCT,W/O STAT EPI (2) Cervical disc disease Status: Acute Code(s): M50.90 - CERVICAL DISC DISORDER, UNSP, UNSPECIFIED CERVICAL REGION (3) Bipolar 1 disorder, manic, moderate Status: Chronic Code(s): F31.12 - BIPOLAR DISORD, CRNT EPISODE MANIC W/O PSYCH FEATURES, MOD (4) Chronic schizoaffective disorder with acute exacerbation Status: Chronic Code(s): F25.8 - OTHER SCHIZOAFFECTIVE DISORDERS Plan: This patient is a 47-year-old female who has a long-standing history of seizure disorder. She has been on treatment for seizures for the past several years. She was brought into the emergency room after she signed out AGAINST MEDICAL ADVICE. She had a seizure at home and return to the ER for further treatment. She is undergone computed tomography scan and recent MRI of the brain and cervical spine. MRI of the brain revealed nonspecific white matter changes. MRI of the cervical spine reveals a disc bulge with mild cord involvement at C5- C6 level. We are recommending orthopedic spine surgery consultation for further assessment. Patient is to be maintained on Keppra for long-term seizure prophylaxis. We recommend to increase her dose of Keppra to 750 mg twice a day. We will obtain a repeat Keppra blood level tomorrow morning and will await the results. Would recommend a psychiatry consultation for this patient given her rather extensive psychiatric history. Her overall prognosis at this time remains very guarded. Time with Patient: Greater than 30
[2017-05-02] MEDS ORDERED: TOPIRAMATE 25 MG TAB PO SCH (09:00)
[2017-05-02] MEDS ORDERED: levETIRAcetam IV 750 MG in SODIUM CHLORIDE 0.9% 100 ML IVPB SCH (09:00)
[2017-05-02] MEDS: TIOTROPIUM 18 MCG/PUFF INHALER INHALATION SCH (09:02)
[2017-05-02] MEDS: SYMBICORT 80-4.5 MCG INHALER INHALATION SCH (09:02)
--- NOTE | 2017-05-02 17:15 | P.DS ---
Providers Date of admission: 04/30/17 21:45 Expected date of discharge: 05/02/17 ( left AGAINST MEDICAL ADVICE at 1300) Attending physician: Albaro Delong MD Consults: 04/30/17 22:02 Consult Physician Stat Consulting Provider: Ritika Pendleton Consult Reason/Comments: New Onset Seizure Do you want consulting provider notified?: Yes 05/01/17 12:04 Consult Physician Routine Consulting Provider: Reji Cueto Consult Reason/Comments: anxiety, stress, seen by [facility] Do you want consulting provider notified?: Yes 05/02/17 09:00 Consult Physician Urgent Consulting Provider: Maribel Golden Consult Reason/Comments: Cervical spondylosis and disc herniation. Do you want consulting provider notified?: Yes Primary care physician: Evelio Álvarez - [place] Diagnosis(es) (1) Complex partial epilepsy Status: Acute (2) New onset seizure Status: Acute (3) Schizoaffective disorder Status: Acute (4) Hypertension Status: Chronic Priority: Low (5) Migraine headache Status: Acute (6) Leukocytosis Status: Acute (7) Hypokalemia Status: Acute (8) Fibromyalgia Status: Acute Hospital Course: Patient is a 47-year-old female with past medical history of migraine headaches, irritable bowel syndrome, anxiety and mental illness, and break through seizures with a history of complex partial epilepsy who initially presented on 04/30 with new seizures. She left against medical advise on 04/30. She returned the same day after having another seizure. She was started on IV Keppra by the ER. She was admitted for further monitoring and care. She was seen by neurology who recommended Keppra 500 mg twice daily in addition to her normal regimen. She did not have any more witnessed seizures during her hospital stay. She again left AGAINST MEDICAL ADVICE on 05/02. I did try to convince her to stay. We discussed the risks of recurrent seizures, worsening of her condition, and possibility of . She still wanted to leave AMA. She was alert and oriented 3. She appeared to have a clear thought process. She was upset about delay in seeing the neurologist. Vital signs reviewed and stable General: non toxic, no distress, appears at stated age Derm: no rashes, no lesions Head: atraumatic, normocephalic, symmetric Eyes: EOMI, no lid lag, anicteric sclera ENT: no post nasal drip, no thrush Mouth: no lip lesion, mucus membranes moist Cardiovascular: S1S2 reg, no murmur, positive posterior tibial pulse bilateral, Lungs: CTA bilateral, no rhonchi, no rales , no accessory muscle use Abdominal: soft, nontender to palpation, no guarding, no appreciable organomegaly Ext: no gross muscle atrophy, trace edema , no contractures Neuro: CN II-XI grossly intact, no focal neuro deficits Psych: Alert, oriented, appropriate affect A total of 20 minutes was spent preparing this complex discharge summary. Patient Condition at Discharge: Fair Plan - Discharge Summary New Discharge Prescriptions: New levETIRAcetam [Keppra] 750 mg PO BID #60 tab No Action Atorvastatin [Lipitor] 10 mg PO HS #30 tab Docusate [Colace] 100 mg PO BID #60 cap EPINEPHrine (Auto Inject) [Epipen] 0.3 mg IM ONCE PRN #1 syringe PRN Reason: Anaphylaxis Levothyroxine Sodium [Synthroid] 75 mcg PO DAILY #30 tab Loratadine [Claritin] 5 mg PO DAILY #30 tab Pantoprazole Sodium [Protonix] 40 mg PO DAILY #30 tablet.dr Propranolol [Inderal] 40 mg PO BID #60 tab Tiotropium 18 Mcg/Puff [Spiriva] 1 cap INHALATION RT-DAILY #1 inhaler Triamterene-Hctz 37.5-25Mg [Dyazide 37.5-25 Capsule] 1 cap PO DAILY #30 cap Topiramate [Topamax] 25 mg PO BID Estradiol [Estrace] 1 mg PO DAILY cloNIDine HCL [cloNIDine HCL] 0.3 mg PO TID Fluticasone/Vilanterol [Breo Ellipta 100-25 Mcg Inhaler] 1 puff INHALATION RT -DAILY Albuterol Inhaler [Ventolin Hfa Inhaler] 1 - 2 puff INHALATION RT-Q6H PRN PRN Reason: Shortness Of Breath Sertraline [Zoloft] 150 mg PO DAILY Albuterol Nebulized [Ventolin Nebulized] 2.5 mg INHALATION RT-Q4H traZODone HCL [Desyrel] 200 mg PO HS Asenapine Maleate [Saphris] 10 mg SUBLINGUAL BID Gabapentin 600 mg PO TID rOPINIRole HCL [Requip] 1.5 mg PO HS Discharge Medication List Atorvastatin [Lipitor] 10 mg PO HS #30 tab 08/28/16 [Rx] Docusate [Colace] 100 mg PO BID #60 cap 08/28/16 [Rx] EPINEPHrine (Auto Inject) [Epipen] 0.3 mg IM ONCE PRN #1 syringe 08/28/16 [Rx] Levothyroxine Sodium [Synthroid] 75 mcg PO DAILY #30 tab 08/28/16 [Rx] Loratadine [Claritin] 5 mg PO DAILY #30 tab 08/28/16 [Rx] Pantoprazole Sodium [Protonix] 40 mg PO DAILY #30 tablet.dr 08/28/16 [Rx] Propranolol [Inderal] 40 mg PO BID #60 tab 08/28/16 [Rx] Tiotropium 18 Mcg/Puff [Spiriva] 1 cap INHALATION RT-DAILY #1 inhaler 08/28/16 [ Rx] Triamterene-Hctz 37.5-25Mg [Dyazide 37.5-25 Capsule] 1 cap PO DAILY #30 cap [Rx] Albuterol Inhaler [Ventolin Hfa Inhaler] 1 - 2 puff INHALATION RT-Q6H PRN [History] Albuterol Nebulized [Ventolin Nebulized] 2.5 mg INHALATION RT-Q4H 04/30/17 [ History] Asenapine Maleate [Saphris] 10 mg SUBLINGUAL BID 04/30/17 [History] Estradiol [Estrace] 1 mg PO DAILY 04/30/17 [History] Fluticasone/Vilanterol [Breo Ellipta 100-25 Mcg Inhaler] 1 puff INHALATION RT- DAILY 04/30/17 [History] Gabapentin 600 mg PO TID 04/30/17 [History] Sertraline [Zoloft] 150 mg PO DAILY 04/30/17 [History] Topiramate [Topamax] 25 mg PO BID 04/30/17 [History] cloNIDine HCL [cloNIDine HCL] 0.3 mg PO TID 04/30/17 [History] rOPINIRole HCL [Requip] 1.5 mg PO HS 04/30/17 [History] traZODone HCL [Desyrel] 200 mg PO HS 04/30/17 [History] levETIRAcetam [Keppra] 750 mg PO BID #60 tab 05/02/17 [Rx] Follow up Appointment(s)/Referral(s): Evelio Álvarez MD [Primary Care Provider] - 1-2 days Discharge Disposition: Left Against Medical Advice
== END 2017-05-02 12:04 | disposition left against medical advice (07) | DRG 101 ==
LOC: EC 20:06 → 4MS4W 21:45
PROVIDERS: ADMIT Internal Medicine; ATTEND Internal Medicine
DX: G40.209 Localization-related (focal) (partial) symptomatic epilepsy and epileptic syndromes with complex partial seizures, not intractable, without status epilepticus (principal); I11.0 Hypertensive heart disease with heart failure; I50.9 Heart failure, unspecified; F25.9 Schizoaffective disorder, unspecified; E03.9 Hypothyroidism, unspecified; D72.829 Elevated white blood cell count, unspecified; E78.5 Hyperlipidemia, unspecified; E87.6 Hypokalemia; F17.200 Nicotine dependence, unspecified, uncomplicated; F41.9 Anxiety disorder, unspecified; F60.3 Borderline personality disorder; G25.81 Restless legs syndrome; G43.909 Migraine, unspecified, not intractable, without status migrainosus; I25.2 Old myocardial infarction; J44.9 Chronic obstructive pulmonary disease, unspecified; K58.9 Irritable bowel syndrome, unspecified; M47.812 Spondylosis without myelopathy or radiculopathy, cervical region; M48.02 Spinal stenosis, cervical region; M79.7 Fibromyalgia; M50.20 Other cervical disc displacement, unspecified cervical region; E55.9 Vitamin D deficiency, unspecified; F32.9 Major depressive disorder, single episode, unspecified; K44.9 Diaphragmatic hernia without obstruction or gangrene; N63 Unspecified lump in breast; F12.90 Cannabis use, unspecified, uncomplicated; Z91.19 Patient's noncompliance with other medical treatment and regimen; Z79.899 Other long term (current) drug therapy; Z88.5 Allergy status to narcotic agent; Z88.8 Allergy status to other drugs, medicaments and biological substances
CPT/HCPCS: 80053; 80177; 80306; 81003; 83735; 84443; 85025; 85027; 94640; 96365; 99285

== ENCOUNTER → 2017-05-14 | Outpatient (CLI) | payer OTHER | END | disposition home or self-care (01) | LOC: LABWHC1 08:05 | PROVIDERS: ATTEND Psychiatry & Neurology Neurology | DX: M47.22 Other spondylosis with radiculopathy, cervical region (principal) | CPT/HCPCS: 36415; 80177 ==

== ENCOUNTER 2017-05-24 09:55 | Emergency (ER) | payer OTHER ==
[2017-05-24] MEDS ORDERED: LORazepam 2 MG/ML SYRINGE IV STA (10:37)
[2017-05-24] MEDS ORDERED: SODIUM CHLORIDE 0.9% 1,000 ML IV STA (10:37)
--- NOTE | 2017-05-24 10:39 | ED ---
General Adult HPI - General Chief complaint: Seizure Stated complaint: seizure Time Seen by Provider: 05/24/17 10:30 Source: patient, RN notes reviewed Mode of arrival: wheelchair Limitations: no limitations - History of Present Illness Initial comments: 47-year-old female presents to the emergency Department chief complaint of seizure. Patient has recently been diagnosed with seizures and was started on Keppra. Patient states she's under the care of Dr. Pendleton. Patient states that she's been more stress and anxiety lately and that seems to promote her seizures and she's had one a day for the past 3 days. They last the most 30 seconds according to the family member who has witnessed them. She has never hurt any part of her body during the seizure. They state they were concerned because she continues to have these seizures so he thought that they should be seen. This time she denies any pain. She states she does have chronic migraines and she has a little bit of a headache she's also been under a lot of stress lately. Patient and family were concerned due to seizures without that they should be seen. Patient denies any recent fever, chills, shortness of breath, chest pain, back pain, abdominal pain, nausea vomiting, numbness or tingling, dysuria or hematuria, constipation or diarrhea, headaches or visual changes, or any other current symptoms. - Related Data Home Medications Medication Instructions Recorded Confirmed Albuterol Inhaler [Ventolin Hfa 1 - 2 puff INHALATION RT-Q6H PRN 04/30/17 Inhaler] Albuterol Nebulized [Ventolin 2.5 mg INHALATION RT-Q4H 04/30/17 05/24/17 Nebulized] Asenapine Maleate [Saphris] 10 mg SUBLINGUAL BID 04/30/17 05/24/17 Estradiol [Estrace] 1 mg PO DAILY 04/30/17 05/24/17 Fluticasone/Vilanterol [Breo 1 puff INHALATION RT-DAILY 04/30/17 05/24/17 Ellipta 100-25 Mcg Inhaler] Gabapentin 600 mg PO TID 04/30/17 05/24/17 Sertraline [Zoloft] 150 mg PO DAILY 04/30/17 05/24/17 Topiramate [Topamax] 25 mg PO BID 04/30/17 05/24/17 cloNIDine HCL [cloNIDine HCL] 0.3 mg PO TID 04/30/17 05/24/17 rOPINIRole HCL [Requip] 1.5 mg PO HS 04/30/17 05/24/17 traZODone HCL [Desyrel] 200 mg PO HS 04/30/17 05/24/17 Atorvastatin [Lipitor] 40 mg PO HS 05/24/17 05/24/17 Loratadine [Claritin] 10 mg PO DAILY 05/24/17 05/24/17 Previous Rx's Medication Instructions Recorded Docusate [Colace] 100 mg PO BID #60 cap 08/28/16 EPINEPHrine (Auto Inject) [Epipen] 0.3 mg IM ONCE PRN #1 syringe 08/28/16 Levothyroxine Sodium [Synthroid] 75 mcg PO DAILY #30 tab 08/28/16 Pantoprazole Sodium [Protonix] 40 mg PO DAILY #30 tablet. 08/28/16 Propranolol [Inderal] 40 mg PO BID #60 tab 08/28/16 Tiotropium 18 Mcg/Puff [Spiriva] 1 cap INHALATION RT-DAILY #1 08/28/16 inhaler Triamterene-Hctz 37.5-25Mg 1 cap PO DAILY #30 cap 08/28/16 [Dyazide 37.5-25 Capsule] levETIRAcetam [Keppra] 750 mg PO BID #60 tab 05/02/17 Allergies Allergy/AdvReac Type Severity Reaction Status Date / Time bee venom protein (honey bee) Allergy Anaphylaxis Verified 05/24/17 11:31 furosemide [From Lasix] Allergy hypotension Verified 05/24/17 11:31 ibuprofen [From Motrin] Allergy Unknown Verified 05/24/17 11:31 Review of Systems ROS Statement: Those systems with pertinent positive or pertinent negative responses have been documented in the HPI. ROS Other: All systems not noted in ROS Statement are negative. Past Medical History Past Medical History: Asthma, Heart Failure, COPD, Hyperlipidemia, Hypertension , Myocardial Infarction ([place]), Seizure Disorder, Thyroid Disorder Additional Past Medical History / Comment(s): Migraines which have recently been more severe, new seizures per pt, IBS, colitis, fibromyalgia, restless legs syndrome, vitamin D deficiency, left breast mass a 1 cm being monitored, gastritis, hiatal hernia, hypothyroid. Pt states she had a stress test yesterday at [facility] and a recent MRI of head/neck and a recent mammogram. Last Myocardial Infarction Date:: Pt 2013-hospitalized at [facility] History of Any Multi-Drug Resistant Organisms: None Reported Past Surgical History: Appendectomy, Hysterectomy, Orthopedic Surgery, Uterine Ablation Additional Past Surgical History / Comment(s): D&C, bilateral arthroscopic knee sx, EGD/colonoscopy Past Anesthesia/Blood Transfusion Reactions: No Reported Reaction Past Psychological History: Anxiety, Bipolar, Depression Smoking Status: Current every day smoker Past Alcohol Use History: None Reported Past Drug Use History: Marijuana - Past Family History Father Family Medical History: Cancer Additional Family Medical History / Comment(s): Father of pancreatic cancer at the age of 62yrs. Mother Family Medical History: Congestive Heart Failure (CHF) Additional Family Medical History / Comment(s): Mother of CHF at the age of 60yrs. Brother(s) Additional Family Medical History / Comment(s): Patient had 1 brother that at 5 months of age. Sister(s) Additional Family Medical History / Comment(s): Patient has one sister with history of depression and bipolar. Patient has 2 half-sisters and one at age 26 from overdose. Patient does not have any children. General Exam - General Exam Comments Initial Comments: General: The patient is awake and alert, in no distress, and does not appear acutely ill. Eye: Pupils are equal, round and reactive to light, extra-ocular movements are intact; there is normal conjunctiva bilaterally. No signs of icterus. Ears, nose, mouth and throat: There are moist mucous membranes and no oral lesions. Neck: The neck is supple, there is no tenderness. Cardiovascular: There is a regular rate and rhythm. No murmur, rub or gallop is appreciated. Respiratory: Lungs are clear to auscultation, respirations are non-labored, breath sounds are equal. No wheezes, stridor, rales, or rhonchi. Gastrointestinal: Soft, non-distended, non-tender abdomen without masses or organomegaly noted. There is no rebound or guarding present. No CVA tenderness. Bowel sounds are unremarkable. Back: There is no tenderness to palpation in the midline. There is no obvious deformity. No rashes noted. Musculoskeletal: Normal ROM, no tenderness, There is no pedal edema. There is no calf tenderness or swelling. Sensation intact. Pulses equal bilaterally 2+. Neurological: CN II-XII intact, There are no obvious motor or sensory deficits. Coordination appears grossly intact. Speech is normal. Skin: Skin is warm and dry and no rashes or lesions are noted. Psychiatric: Cooperative, appropriate mood & affect, normal judgment. Limitations: no limitations Course Vital Signs 05/24/17 10:23 Temperature 98.3 F Pulse Rate 77 Respiratory 20 Rate Blood Pressure 95/52 O2 Sat by Pulse 97 Oximetry Medical Decision Making - Medical Decision Making 47-year-old female presents emergency Department chief complaint of seizures who has seizures and is on Keppra for seizures. At this time patient's lab work has been reviewed. At this time we are pending the Eye which has not come back today. This time we discussed follow-up. We discussed continuing to see the surgeon. We discussed return parameters and all questions. Patient is agreement plan. This time patient will be discharged home. - Lab Data Result diagrams: 05/24/17 11:03 05/24/17 11:03 Lab Results 05/24/17 05/24/17 05/24/17 Range/Units 11:03 11:03 11:04 WBC 13.1 H (3.8-10.6) k/uL RBC 4.17 (3.80-5.40) m/uL Hgb 13.9 (11.4-16.0) gm/dL Hct 39.7 (34.0-46.0) % MCV 95.1 D (80.0-100.0) fL MCH 33.3 (25.0-35.0) pg MCHC 35.0 (31.0-37.0) g/dL RDW 12.8 (11.5-15.5) % Plt Count 412 (150-450) k/uL Neutrophils % 68 % Lymphocytes % 23 % Monocytes % 5 % Eosinophils % 2 % Basophils % 1 % Neutrophils # 8.9 H (1.3-7.7) k/uL Lymphocytes # 3.1 (1.0-4.8) k/uL Monocytes # 0.6 (0-1.0) k/uL Eosinophils # 0.2 (0-0.7) k/uL Basophils # 0.1 (0-0.2) k/uL Sodium 137 (137-145) mmol/L Potassium 3.4 L (3.5-5.1) mmol/L Chloride 108 H (98-107) mmol/L Carbon Dioxide 22 (22-30) mmol/L Anion Gap 7 mmol/L BUN 10 (7-17) mg/dL Creatinine 0.60 (0.52-1.04) mg/dL Est GFR (MDRD) Af Amer >60 (>60 ml/min/1.73 sqM) Est GFR (MDRD) Non-Af >60 (>60 ml/min/1.73 sqM) Glucose 109 H (74-99) mg/dL Calcium 9.1 (8.4-10.2) mg/dL Phosphorus 3.3 (2.5-4.5) mg/dL Magnesium 1.9 (1.6-2.3) mg/dL Total Bilirubin 0.3 (0.2-1.3) mg/dL AST 19 (14-36) U/L ALT 30 (9-52) U/L Alkaline Phosphatase 93 (38-126) U/L Total Protein 6.6 (6.3-8.2) g/dL Albumin 3.5 (3.5-5.0) g/dL Urine Color Urine Appearance (Clear) Urine pH (5.0-8.0) Ur Specific Hondo (1.001-1.035) Urine Protein (Negative) Urine Glucose (UA) (Negative) Urine Ketones (Negative) Urine Blood (Negative) Urine Nitrite (Negative) Urine Bilirubin (Negative) Urine Urobilinogen (<2.0) mg/dL Ur Leukocyte Esterase (Negative) Ur Squamous Epith Cells (0-4) /hpf Amorphous Sediment (None) /hpf Urine Mucus (None) /hpf Urine Opiates Screen Detected H (NotDetected) Ur Oxycodone Screen Not Detected (NotDetected) Urine Methadone Screen Not Detected (NotDetected) Ur Propoxyphene Screen Not Detected (NotDetected) Ur Barbiturates Screen Detected H (NotDetected) U Tricyclic Antidepress Not Detected (NotDetected) Ur Phencyclidine Scrn Not Detected (NotDetected) Ur Amphetamines Screen Not Detected (NotDetected) U Methamphetamines Scrn Not Detected (NotDetected) U Benzodiazepines Scrn Not Detected (NotDetected) Urine Cocaine Screen Not Detected (NotDetected) U Marijuana (THC) Screen Detected H (NotDetected) 05/24/17 Range/Units 11:04 WBC (3.8-10.6) k/uL RBC (3.80-5.40) m/uL Hgb (11.4-16.0) gm/dL Hct (34.0-46.0) % MCV (80.0-100.0) fL MCH (25.0-35.0) pg MCHC (31.0-37.0) g/dL RDW (11.5-15.5) % Plt Count (150-450) k/uL Neutrophils % % Lymphocytes % % Monocytes % % Eosinophils % % Basophils % % Neutrophils # (1.3-7.7) k/uL Lymphocytes # (1.0-4.8) k/uL Monocytes # (0-1.0) k/uL Eosinophils # (0-0.7) k/uL Basophils # (0-0.2) k/uL Sodium (137-145) mmol/L Potassium (3.5-5.1) mmol/L Chloride (98-107) mmol/L Carbon Dioxide (22-30) mmol/L Anion Gap mmol/L BUN (7-17) mg/dL Creatinine (0.52-1.04) mg/dL Est GFR (MDRD) Af Amer (>60 ml/min/1.73 sqM) Est GFR (MDRD) Non-Af (>60 ml/min/1.73 sqM) Glucose (74-99) mg/dL Calcium (8.4-10.2) mg/dL Phosphorus (2.5-4.5) mg/dL Magnesium (1.6-2.3) mg/dL Total Bilirubin (0.2-1.3) mg/dL AST (14-36) U/L ALT (9-52) U/L Alkaline Phosphatase (38-126) U/L Total Protein (6.3-8.2) g/dL Albumin (3.5-5.0) g/dL Urine Color Yellow Urine Appearance Cloudy H (Clear) Urine pH 7.5 (5.0-8.0) Ur Specific Hondo 1.009 (1.001-1.035) Urine Protein Negative (Negative) Urine Glucose (UA) Negative (Negative) Urine Ketones Negative (Negative) Urine Blood Negative (Negative) Urine Nitrite Negative (Negative) Urine Bilirubin Negative (Negative) Urine Urobilinogen <2.0 (<2.0) mg/dL Ur Leukocyte Esterase Negative (Negative) Ur Squamous Epith Cells 1 (0-4) /hpf Amorphous Sediment Occasional H (None) /hpf Urine Mucus Rare H (None) /hpf Urine Opiates Screen (NotDetected) Ur Oxycodone Screen (NotDetected) Urine Methadone Screen (NotDetected) Ur Propoxyphene Screen (NotDetected) Ur Barbiturates Screen (NotDetected) U Tricyclic Antidepress (NotDetected) Ur Phencyclidine Scrn (NotDetected) Ur Amphetamines Screen (NotDetected) U Methamphetamines Scrn (NotDetected) U Benzodiazepines Scrn (NotDetected) Urine Cocaine Screen (NotDetected) U Marijuana (THC) Screen (NotDetected) Disposition Clinical Impression: Generalized seizure Disposition: HOME SELF-CARE Condition: Stable Instructions: Recurrent Seizures in Adults (ED) Additional Instructions: Please use medication as discussed. Please follow up with family doctor if symptoms have not improved over the next two days. Please return to the emergency room if your symptoms increase or worsen or for any other concerns. Referrals: Evelio Álvarez MD [Primary Care Provider] - 1-2 days Time of Disposition: 12:21
[2017-05-24 11:17] LABS: Basophils # (A) 0.1 k/uL (0-0.2); Basophils % (A) 1 %; CH 33.2; CHCM 35.1; Eosinophils # (A) 0.2 k/uL (0-0.7); Eosinophils % (A) 2 %; HCT 39.7 % (34.0-46.0); HDW 2.64; HGB 13.9 gm/dL (11.4-16.0); Luc # (Auto) 0.17; Luc % (Auto) 1; Lymphocytes # (A) 3.1 k/uL (1.0-4.8); Lymphocytes % (A) 23 %; MCH 33.3 pg (25.0-35.0); Mean Platelet Volume 6.8; Monocytes # (A) 0.6 k/uL (0-1.0); Monocytes % (A) 5 %; Neutrophils # (A) 8.9 k/uL (1.3-7.7); Neutrophils % (A) 68 %; RBC 4.17 m/uL (3.80-5.40); RDW 12.8 % (11.5-15.5); WBC 13.1 k/uL (3.8-10.6)
[2017-05-24 11:25] LABS: Amorphous Sediment,Urine Occasional /hpf; Appearance,Urine Cloudy (Clear); Bilirubin,Urine Negative (Negative); Glucose,Urine (UA) Negative (Negative); Ketones,Urine Negative (Negative); Leukocyte Esterase,Urine Negative (Negative); Mucus,Urine Rare /hpf; Nitrite,Urine Negative (Negative); PH, Urine 7.5 (5.0-8.0); Particle Count 12937; Protein,Urine Negative (Negative); Specific Gravity,Urine 1.009 (1.001-1.035); Squamous Epithelial Cell,Urine 1 /hpf (0-4); UA Billing (MACRO vs. MICRO) MICRO; Urobilinogen,Urine <2.0 mg/dL (<2.0)
[2017-05-24 11:27] LABS: ALT 30 U/L (9-52); AST 19 U/L (14-36); Alkaline Phosphatase 93 U/L (38-126); Anion Gap 7 mmol/L; Blood Urea Nitrogen 10 mg/dL (7-17); Calcium 9.1 mg/dL (8.4-10.2); Carbon Dioxide 22 mmol/L (22-30); Chloride 108 mmol/L (98-107); Glucose 109 mg/dL (74-99); Magnesium 1.9 mg/dL (1.6-2.3); Non-African American GFR(MDRD) >60 (>60 ml/min/1.73 sqM); Phosphorous 3.3 mg/dL (2.5-4.5); Potassium 3.4 mmol/L (3.5-5.1); Sodium 137 mmol/L (137-145); Total Bilirubin 0.3 mg/dL (0.2-1.3); Total Protein 6.6 g/dL (6.3-8.2)
[2017-05-24 11:30] LABS: MCV 95.1 fL (80.0-100.0)
[2017-05-24] MEDS ORDERED: KETOROLAC 30 MG/ML 1 ML VIAL IVP STA (12:20)
[2017-05-24 12:32] VITALS: BP 126/61; PULSE 75; RESP 16; TEMP 98
== END 2017-05-24 12:34 | disposition home or self-care (01) ==
LOC: EC 09:55
DX: G40.409 Other generalized epilepsy and epileptic syndromes, not intractable, without status epilepticus (principal); J44.9 Chronic obstructive pulmonary disease, unspecified; E78.5 Hyperlipidemia, unspecified; I11.0 Hypertensive heart disease with heart failure; I50.9 Heart failure, unspecified; G25.81 Restless legs syndrome; M79.7 Fibromyalgia; E03.9 Hypothyroidism, unspecified; F31.9 Bipolar disorder, unspecified; F41.9 Anxiety disorder, unspecified; F17.200 Nicotine dependence, unspecified, uncomplicated; Z86.69 Personal history of other diseases of the nervous system and sense organs; Z88.6 Allergy status to analgesic agent; Z88.8 Allergy status to other drugs, medicaments and biological substances; Z91.030 Bee allergy status; Z79.51 Long term (current) use of inhaled steroids; Z79.899 Other long term (current) drug therapy
CPT/HCPCS: 36415; 80053; 83735; 84100; 85025; 81001; 80306; 99284; 96374; 96375; 96361; J2060; J1885

== ENCOUNTER → 2017-06-15 | Outpatient (CLI) | payer OTHER ==
[2017-06-16 19:34] LABS: Appearance,CSF Clear
[2017-06-19 13:45] LABS: Lyme Specimen Source Not Provided
== END | disposition home or self-care (01) ==
LOC: LABWHC1 08:01
PROVIDERS: ATTEND Psychiatry & Neurology Neurology
DX: R90.82 White matter disease, unspecified (principal); R53.83 Other fatigue
CPT/HCPCS: 36415; 82040; 82042; 82784; 83873; 83916; 84157; 87476; 88108; 89050

== ENCOUNTER 2017-06-17 09:56 | Emergency (ER) | payer OTHER ==
[2017-06-17 10:09] VITALS: RESP 18
[2017-06-17] MEDS ORDERED: METOCLOPRAMIDE 5 MG/ML 2 ML VIAL IVP STA (10:18)
[2017-06-17] MEDS ORDERED: diphenhydrAMINE 50 MG/ML 1 ML VIAL IVP STA (10:18)
[2017-06-17] MEDS ORDERED: SODIUM CHLORIDE 0.9% 1,000 ML IV ONE (10:18)
--- NOTE | 2017-06-17 10:35 | ED ---
Headache HPI - General Chief Complaint: Headache Stated Complaint: migraine Time Seen by Provider: 06/17/17 10:12 Mode of arrival: ambulatory Limitations: no limitations - History of Present Illness Initial Comments: This is a 47-year-old female with a history of migraines and left lower extremity tingling who presents emergency department for headache. The patient had a lumbar puncture performed yesterday for evaluation of MS because she had an MRI that showed some plaques. She states that her headache is posterior and does not radiate. It is worth was sitting up and better with laying down. She tried taking some Fioricet at home however did not relieve her symptoms. She called Dr. Walsh's office who advised her to come to the emergency department for a blood patch. The patient denies any fevers or chills. No focal weakness. She does have chronic tingling in her left lower extremity that she states is unchanged. She denies any other symptoms at this time. - Related Data Home Medications Medication Instructions Recorded Confirmed Albuterol Inhaler [Ventolin Hfa 1 - 2 puff INHALATION RT-Q6H PRN 04/30/17 Inhaler] Albuterol Nebulized [Ventolin 2.5 mg INHALATION RT-Q4H 04/30/17 06/17/17 Nebulized] Asenapine Maleate [Saphris] 10 mg SUBLINGUAL BID 04/30/17 06/17/17 Estradiol [Estrace] 1 mg PO DAILY 04/30/17 06/17/17 Fluticasone/Vilanterol [Breo 1 puff INHALATION RT-DAILY 04/30/17 06/17/17 Ellipta 100-25 Mcg Inhaler] Gabapentin 600 mg PO TID 04/30/17 06/17/17 Sertraline [Zoloft] 150 mg PO DAILY 04/30/17 06/17/17 cloNIDine HCL [cloNIDine HCL] 0.3 mg PO TID 04/30/17 06/17/17 rOPINIRole HCL [Requip] 1.5 mg PO HS 04/30/17 06/17/17 traZODone HCL [Desyrel] 200 mg PO HS 04/30/17 06/17/17 Atorvastatin [Lipitor] 40 mg PO HS 05/24/17 06/17/17 Loratadine [Claritin] 10 mg PO DAILY 05/24/17 06/17/17 Butalb/APAP/Caff 50-325-40Mg 1 tab PO TID 06/17/17 06/17/17 [Fioricet 50-325-40] Eslicarbazepine Acetate [Aptiom] 800 mg PO DAILY 06/17/17 06/17/17 Topiramate [Topamax] 50 mg PO BID 06/17/17 06/17/17 Previous Rx's Medication Instructions Recorded Docusate [Colace] 100 mg PO BID #60 cap 08/28/16 EPINEPHrine (Auto Inject) [Epipen] 0.3 mg IM ONCE PRN #1 syringe 08/28/16 Levothyroxine Sodium [Synthroid] 75 mcg PO DAILY #30 tab 08/28/16 Pantoprazole Sodium [Protonix] 40 mg PO DAILY #30 tablet. 08/28/16 Propranolol [Inderal] 40 mg PO BID #60 tab 08/28/16 Tiotropium 18 Mcg/Puff [Spiriva] 1 cap INHALATION RT-DAILY #1 08/28/16 inhaler Triamterene-Hctz 37.5-25Mg 1 cap PO DAILY #30 cap 08/28/16 [Dyazide 37.5-25 Capsule] Allergies Allergy/AdvReac Type Severity Reaction Status Date / Time bee venom protein (honey bee) Allergy Anaphylaxis Verified 06/17/17 10:46 furosemide [From Lasix] Allergy hypotension Verified 06/17/17 10:46 ibuprofen [From Motrin] AdvReac Nausea & Verified 06/17/17 10:46 Vomiting & Diarrhea Review of Systems ROS Statement: Those systems with pertinent positive or pertinent negative responses have been documented in the HPI. ROS Other: All systems not noted in ROS Statement are negative. Past Medical History Past Medical History: Asthma, Heart Failure, COPD, Hyperlipidemia, Hypertension , Myocardial Infarction ([place]), Seizure Disorder, Thyroid Disorder Additional Past Medical History / Comment(s): Migraines which have recently been more severe, new seizures per pt, IBS, colitis, fibromyalgia, restless legs syndrome, vitamin D deficiency, left breast mass a 1 cm being monitored, gastritis, hiatal hernia, hypothyroid. Pt states she had a stress test yesterday at [facility] and a recent MRI of head/neck and a recent mammogram. Last Myocardial Infarction Date:: Pt states 2013-hospitalized at [facility] History of Any Multi-Drug Resistant Organisms: None Reported Past Surgical History: Appendectomy, Hysterectomy, Orthopedic Surgery, Uterine Ablation Additional Past Surgical History / Comment(s): D&C, bilateral arthroscopic knee sx, EGD/colonoscopy Past Anesthesia/Blood Transfusion Reactions: No Reported Reaction Past Psychological History: Anxiety, Bipolar, Depression Smoking Status: Current every day smoker Past Alcohol Use History: None Reported Past Drug Use History: Marijuana - Past Family History Father Family Medical History: Cancer Additional Family Medical History / Comment(s): Father of pancreatic cancer at the age of 62yrs. Mother Family Medical History: Congestive Heart Failure (CHF) Additional Family Medical History / Comment(s): Mother of CHF at the age of 60yrs. Brother(s) Additional Family Medical History / Comment(s): Patient had 1 brother that at 5 months of age. Sister(s) Additional Family Medical History / Comment(s): Patient has one sister with history of depression and bipolar. Patient has 2 half-sisters and one at age 26 from overdose. Patient does not have any children. General Exam - General Exam Comments Initial Comments: Constitutional: Awake alert Appears comfortable Head: Normocephalic atraumatic Eyes: no conjunctival injection No scleral icterus EOMI Neck: No JVD Supple Heart: Regular rate rhythm normal S1-S2 no murmurs Lungs: Clear to auscultation bilaterally No wheezing No rales Abdomen: Soft nondistended nontender Extremities: Non edematous DP pulses intact Radial pulses intact Neuro: A&Ox3 pupils are 4 mm and reactive bilaterally, cranial nerves II through XII are grossly intact, 5 out of 5 strength in upper and lower extremities bilaterally, 2 out of 4 patellar reflexes bilaterally. Sensation intact to light touch in all extremities Psych: Appropriate mood and affect Limitations: no limitations Course Vital Signs 06/17/17 06/17/17 10:07 12:10 Temperature 97.1 F L 97.9 F Pulse Rate 68 65 Respiratory 18 18 Rate Blood Pressure 111/57 119/73 O2 Sat by Pulse 98 100 Oximetry Medical Decision Making - Medical Decision Making This is a 47-year-old female presents emergency report for spinal headache. The patient reported improved headache after blood patch administration by Dr. Jackson. The patient has Fioricet at home. She was encouraged to drink plenty fluids and take it easy today. She is to follow-up with Dr. Walsh per she can return if she has worsening or changing symptoms. All questions were answered. - Lab Data Lab Results 06/17/17 Range/Units 10:30 PT 9.3 (9.0-12.0) sec INR 0.9 (<1.2) APTT 25.8 (22.0-30.0) sec Disposition Clinical Impression: Spinal headache Disposition: HOME SELF-CARE Condition: Stable Instructions: Lumbar Puncture (ED), Acute Headache (ED) Additional Instructions: Please drink plenty of fluids today. If your headache seems to return later down flat. He may take your Fioricet as needed for pain. Return if the headache seems to worsen or the pain becomes uncontrolled. Call Dr. Walsh. Referrals: Evelio Álvarez MD [Primary Care Provider] - 1-2 days Yanira Walsh MD [STAFF PHYSICIAN] - 1-2 days
[2017-06-17 11:06] LABS: INR 0.9 (<1.2); Partial Thromboplastin Time 25.8 sec (22.0-30.0); Prothrombin Time 9.3 sec (9.0-12.0)
[2017-06-17 12:11] VITALS: BP 119/73; PULSE 65; TEMP 97.9
--- NOTE | 2017-06-17 12:22 | P.PCN ---
Date of Procedure: 06/17/17 Procedure(s) Performed: Operation= epidural blood patch. preoperative diagnosis= post dural puncture headache. Post operative diagnoses= post dural puncture headache. Anesthesia= local infiltration with lidocaine 1% 3 mL. Condition= stable. Complications= none. Indication for the procedure= this patient had diagnostic lumbar puncture done yesterday, to rule out MS, and currently patient complaining of severe positional headache, improved with the supine position and increased with the sitting and standing position, and she is diagnosed with post dural puncture headache, there is no focal neurological deficit, no fever,, and no neck stiffness, patient is a good candidate to have epidural blood patch, because the conservative treatment failed, risks and benefits of the procedure discussed with the patient and agreed with proceeding, Description of the procedure= patient in sitting position, back lumbar area prepped with chlorhexidine x3 times then the back draped , then L5 S1 interlaminar space local infiltration of the skin and subcu tissues with lidocaine 1% 3 mL, then 20 -gauge Tuohy needle, advanced at the L5-S1 interlaminar space, as positive loss of resistance to normal saline, was no heme and no paresthesia, no cerebrospinal fluid, then after that 20 mL of autologous blood taken under strict sterile technique from the antecubital area was prepped with the chlorhexidine 3 times, and using Angiocath 20 ML of the block taken from the left antecubital vein under strict sterile technique injected in the epidural space after negative aspiration for heme or cerebrospinal fluid, and there was no paresthesia, and after 20 ML of the blood injected in the epidural space ,, and patient tolerated the procedure well without any complication and patient discharged home after discharge criteria met and patient will follow up with the neurologist as an outpatient
== END 2017-06-17 12:23 | disposition home or self-care (01) ==
LOC: EC 09:56
DX: G97.1 Other reaction to spinal and lumbar puncture (principal); R20.2 Paresthesia of skin; E78.5 Hyperlipidemia, unspecified; I10 Essential (primary) hypertension; G25.81 Restless legs syndrome; J44.9 Chronic obstructive pulmonary disease, unspecified; G40.909 Epilepsy, unspecified, not intractable, without status epilepticus; M79.7 Fibromyalgia; F31.9 Bipolar disorder, unspecified; F41.9 Anxiety disorder, unspecified; I25.2 Old myocardial infarction; F17.200 Nicotine dependence, unspecified, uncomplicated; Z79.51 Long term (current) use of inhaled steroids; Z79.899 Other long term (current) drug therapy; Z88.6 Allergy status to analgesic agent; Z88.8 Allergy status to other drugs, medicaments and biological substances; Z91.030 Bee allergy status; Z86.69 Personal history of other diseases of the nervous system and sense organs; Y84.4 Aspiration of fluid as the cause of abnormal reaction of the patient, or of later complication, without mention of misadventure at the time of the procedure
CPT/HCPCS: 99283 ×2; 62273 ×2; 96374 ×2; 96375 ×2; 96361 ×3; 36415; 85610; 85730; J1200; J2765

== ENCOUNTER → 2017-09-08 | Outpatient (CLI) | payer OTHER ==
--- NOTE | 2017-09-09 06:14 | CONS ---
CONSULTATION Referring physician is Dr. Walsh. A 47-year-old female patient coming in for sleep apnea evaluation. I noted that the patient is having significant difficulties in breathing on today's evaluation. She is known to have COPD and I have seen her in my office approximately a year ago for COPD exacerbation. She has not seen me since. The patient is a chronic smoker and she continues to smoke. She is on Dulera and she remains bronchospastic and wheezing and she is to come back to the pulmonary clinic to optimize her COPD. Meanwhile, she is also being investigated for obstructive sleep apnea. Based on history of snoring and waking up tired and fatigued and sleepy during the day. I have suggested to postpone the treatment at least for now till her COPD is under better treatment. She does have some features of obstructive sleep apnea and she would deserve further evaluation at later stage. PAST MEDICAL HISTORY: 1. COPD. 2. Bipolar disorder/depression. 3. RLS. 4. Hot flashes. 5. Acid reflux. 6. COPD with FEV1 of 69% of predicted. 7. IBS. 8. Fibromyalgia. 9. Migraines. 10.Vitamin D deficiency. 11.Hypothyroidism. SURGICAL HISTORY: None. DRUG ALLERGIES: Drug allergies are not known of. OUTPATIENT MEDICATION LIST: Outpatient medication list includes Requip, clonidine, propranolol, trazodone, Protonix, levothyroxine, Topamax, triamterene hydrochlorothiazide, gabapentin and Lipitor. SOCIAL HISTORY: Smokes 1 pack of cigarettes a day. No history of alcohol. No history of IV drugs. FAMILY HISTORY: Negative for sleep apnea. REVIEW OF SYSTEMS: Twelve-point review of system was done. Positive findings are mentioned above in the history of present illness. PHYSICAL EXAMINATION: BP is 119/24, pulse 74, respirations 16, temperature 98.2, saturation 96% on room air. Weight is 175, height is 5 feet 1 inch. Neck size 14 inches and BMI 33. GENERAL APPEARANCE: Calm, comfortable. Head is atraumatic, normocephalic. Neck is poor dental condition. No goiter or neck masses. Mallampati class IV. LUNGS: Clear to auscultation. HEART: Sounds are regular rate and rhythm. Normal S1, S2. No S3, S4. No murmurs. ABDOMEN: Soft, nontender. No organomegaly. EXTREMITIES: No edema. No cyanosis or clubbing. SKIN: Negative for any wounds or ulceration. NEUROLOGIC: Alert and oriented x3. No focal neurological deficits. PSYCHIATRICALLY: No anxiety or depression. IMPRESSION: 1. Obstructive sleep apnea suspected, will need investigation at later stage. 2. Moderate to severe chronic obstructive pulmonary disease, currently in acute exacerbation. 3. Chronic smoker. 4. Bipolar disease/depression. 5. Restless leg syndrome. 6. Hot flashes. 7. Acid reflux. 8. Irritable bowel syndrome. 9. Fibromyalgia. 10.Migraines. 11.Vitamin D deficiency. 12.Hypothyroidism. PLAN: 1. Will restart the Dulera and treatments around the clock regarding her COPD exacerbation. We will avoid systemic steroids based on her previous psychiatric history. 2. Smoking cessation counseling was done. 3. Defer back to the pulmonary clinic for further evaluation. 4. Sleep study will be done at later stage once her COPD is under better control. MMODL / IJN: [id number] /
== END | disposition home or self-care (01) ==
LOC: SLEEP 13:12
PROVIDERS: ATTEND Internal Medicine Critical Care Medicine
DX: G47.33 Obstructive sleep apnea (adult) (pediatric) (principal); F17.200 Nicotine dependence, unspecified, uncomplicated; F31.9 Bipolar disorder, unspecified; G25.81 Restless legs syndrome; N95.1 Menopausal and female climacteric states; K21.9 Gastro-esophageal reflux disease without esophagitis; K58.9 Irritable bowel syndrome, unspecified; M79.7 Fibromyalgia; E55.9 Vitamin D deficiency, unspecified; E03.9 Hypothyroidism, unspecified; F32.9 Major depressive disorder, single episode, unspecified
CPT/HCPCS: 99211

== ENCOUNTER 2018-05-13 17:22 | Emergency (ER) | payer OTHER ==
[2018-05-13 18:05] VITALS: RESP 18; TEMP 98
[2018-05-13 19:54] LABS: Basophils # (A) 0.1 k/uL (0-0.2); Basophils % (A) 0 %; Eosinophils # (A) 0.3 k/uL (0-0.7); Eosinophils % (A) 2 %; HGB 16.3 gm/dL (11.4-16.0); Lymphocytes # (A) 2.7 k/uL (1.0-4.8); Lymphocytes % (A) 18 %; MCH 33.9 pg (25.0-35.0); MCHC 34.7 g/dL (31.0-37.0); MCV 97.7 fL (80.0-100.0); Mean Platelet Volume 6.1; Monocytes # (A) 0.6 k/uL (0-1.0); Monocytes % (A) 4 %; Neutrophils # (A) 10.9 k/uL (1.3-7.7); Neutrophils % (A) 74 %; Platelet Count 510 k/uL (150-450); RBC 4.81 m/uL (3.80-5.40); RDW 12.4 % (11.5-15.5); WBC 14.8 k/uL (3.8-10.6)
[2018-05-13 20:00] LABS: INR 0.9 (<1.2); Partial Thromboplastin Time 24.9 sec (22.0-30.0); Prothrombin Time 9.4 sec (9.0-12.0)
[2018-05-13 20:11] LABS: ALT 39 U/L (9-52); AST 28 U/L (14-36); Albumin 4.1 g/dL (3.5-5.0); Alkaline Phosphatase 111 U/L (38-126); Anion Gap 11 mmol/L; Blood Urea Nitrogen 12 mg/dL (7-17); Calcium 9.6 mg/dL (8.4-10.2); Carbon Dioxide 22 mmol/L (22-30); Chloride 94 mmol/L (98-107); Glucose 98 mg/dL (74-99); Potassium 3.8 mmol/L (3.5-5.1); Sodium 127 mmol/L (137-145); Total Bilirubin 0.5 mg/dL (0.2-1.3); Total Protein 7.4 g/dL (6.3-8.2)
[2018-05-13 20:21] LABS: Creatine Kinase 42 U/L (30-135)
[2018-05-13 20:34] LABS: Creatine Kinase MB 0.4 ng/mL (0.0-2.4); Troponin I <0.012 ng/mL (0.000-0.034)
[2018-05-13] MEDS ORDERED: ONDANSETRON 4 MG/2 ML VIAL IVP STA (21:06)
[2018-05-13] MEDS ORDERED: SODIUM CHLORIDE 0.9% 1,000 ML IV ONE (21:06)
[2018-05-13 21:42] VITALS: PULSE 77
[2018-05-13] MEDS ORDERED: POTASSIUM CHLORIDE ER 20 MEQ TAB.ER PO STA (21:53)
--- NOTE | 2018-05-13 21:58 | ED ---
Dizziness HPI - General Chief Complaint: Dizziness Stated Complaint: ABNORMAL LABS Time Seen by Provider: 05/13/18 21:05 Source: patient Mode of arrival: ambulatory Limitations: no limitations - History of Present Illness Initial Comments: This patient is a 48-year-old woman who presents to the emergency department with concerns about her sodium and potassium levels. She states that she had gone to see her physician today Dr. Álvarez, and had some routine lab tests. She states that she received a call tonight informing her that her sodium and her potassium were both low and that she should be seen in the emergency department. The patient states that for the past couple of days she has been having little bit of dizziness, that is worse with activity. She has also had some fatigue. She has had what she is describing as diarrhea for the past day and a half, having a total of 4 right bowel movements. She denies seeing any blood. She is not having any fevers or chills nor any abdominal or perianal pain. MD Complaint: dizziness Onset/Timin -: days(s) Timing: gradual onset Description: lightheadedness, off-balance History of Same: No History of Trauma: No Severity: moderate Improves With: remaining still Worsens With: movement, exertion Associated Symptoms: other (Fatigue) - Related Data Home Medications Medication Instructions Recorded Confirmed Albuterol Inhaler [Ventolin Hfa 1 - 2 puff INHALATION RT-Q6H PRN 04/30/17 Inhaler] Albuterol Nebulized [Ventolin 2.5 mg INHALATION RT-Q4H 04/30/17 05/13/18 Nebulized] Asenapine Maleate [Saphris] 10 mg SUBLINGUAL BID 04/30/17 05/13/18 Estradiol [Estrace] 1 mg PO DAILY 04/30/17 05/13/18 Gabapentin 600 mg PO TID 04/30/17 05/13/18 Sertraline [Zoloft] 200 mg PO DAILY 04/30/17 05/13/18 cloNIDine HCL 0.3 mg PO TID 04/30/17 05/13/18 rOPINIRole HCL [Requip] 3 mg PO HS 04/30/17 05/13/18 Atorvastatin [Lipitor] 40 mg PO HS 05/24/17 05/13/18 Loratadine [Claritin] 10 mg PO DAILY 05/24/17 05/13/18 Butalb/APAP/Caff 50-325-40Mg 1 tab PO TID 06/17/17 05/13/18 [Fioricet 50-325-40] Eslicarbazepine Acetate [Aptiom] 800 mg PO DAILY 06/17/17 05/13/18 Topiramate [Topamax] 100 mg PO BID 06/17/17 05/13/18 Methocarbamol [Robaxin] 750 mg PO BID 05/13/18 05/13/18 Ondansetron HCl [Zofran] 4 mg PO TID PRN 05/13/18 05/13/18 Ranitidine HCl 150 mg PO HS 05/13/18 05/13/18 busPIRone HCL 15 mg PO TID 05/13/18 05/13/18 busPIRone HCl [Buspar] 15 mg PO TID 05/13/18 05/13/18 Previous Rx's Medication Instructions Recorded Docusate [Colace] 100 mg PO BID #60 cap 08/28/16 EPINEPHrine (Auto Inject) [Epipen] 0.3 mg IM ONCE PRN #1 syringe 08/28/16 Levothyroxine Sodium [Synthroid] 75 mcg PO DAILY #30 tab 08/28/16 Pantoprazole Sodium [Protonix] 40 mg PO DAILY #30 tablet. 08/28/16 Triamterene-Hctz 37.5-25Mg 1 cap PO DAILY #30 cap 08/28/16 [Dyazide 37.5-25 Capsule] Allergies Allergy/AdvReac Type Severity Reaction Status Date / Time bee venom protein (honey bee) Allergy Anaphylaxis Verified 05/13/18 18:05 furosemide [From Lasix] Allergy hypotension Verified 05/13/18 18:05 ibuprofen [From Motrin] AdvReac Nausea & Verified 05/13/18 18:05 Vomiting & Diarrhea Review of Systems ROS Statement: Those systems with pertinent positive or pertinent negative responses have been documented in the HPI. ROS Other: All systems not noted in ROS Statement are negative. Constitutional: Reports: weakness (Her last). Denies: fever, chills Respiratory: Denies: cough, dyspnea Cardiovascular: Denies: chest pain, palpitations, edema, syncope Gastrointestinal: Reports: diarrhea. Denies: abdominal pain, nausea, vomiting, constipation, melena, hematochezia Genitourinary: Denies: dysuria, hematuria Musculoskeletal: Denies: back pain Skin: Denies: rash Neurological: Reports: paresthesias (Patient states she is having mild extremity paresthesias). Denies: headache, weakness, numbness Past Medical History Past Medical History: Asthma, Heart Failure, COPD, Hyperlipidemia, Hypertension , Myocardial Infarction (NM), Thyroid Disorder Additional Past Medical History / Comment(s): IBS, colitis, fibromyalgia, restless legs flexed syndrome, migraine, vitamin D deficiency, left breast mass a 1 cm, gastritis Last Myocardial Infarction Date:: unknown History of Any Multi-Drug Resistant Organisms: None Reported Past Surgical History: Appendectomy, Hysterectomy Additional Past Surgical History / Comment(s): D&C, uterine ablation, bilateral arthroscopic knee of the knees Past Anesthesia/Blood Transfusion Reactions: No Reported Reaction Past Psychological History: Anxiety, Bipolar, Depression Smoking Status: Current every day smoker Past Alcohol Use History: Rare Past Drug Use History: None Reported - Past Family History Father Family Medical History: Cancer Additional Family Medical History / Comment(s): Father of pancreatic cancer at the age of 62yrs. Mother Family Medical History: Congestive Heart Failure (CHF) Additional Family Medical History / Comment(s): Mother of CHF at the age of 60yrs. Brother(s) Additional Family Medical History / Comment(s): Patient had 1 brother that at 5 months of age. Sister(s) Additional Family Medical History / Comment(s): Patient has one sister with history of depression and bipolar. Patient has 2 half-sisters and one at age 26 from overdose. Patient does not have any children. General Exam Limitations: no limitations General appearance: alert, in no apparent distress Head exam: Present: atraumatic, normocephalic Eye exam: Present: normal appearance. Absent: scleral icterus, conjunctival injection ENT exam: Present: normal oropharynx, mucous membranes dry Respiratory exam: Present: normal lung sounds bilaterally. Absent: respiratory distress, wheezes, rales, rhonchi, stridor Cardiovascular Exam: Present: regular rate, normal rhythm, normal heart sounds. Absent: systolic murmur, diastolic murmur, rubs, gallop GI/Abdominal exam: Present: soft, normal bowel sounds. Absent: distended, tenderness, guarding, rebound, rigid, mass, pulsatile mass, hernia Extremities exam: Present: normal inspection, normal capillary refill. Absent: pedal edema, calf tenderness Back exam: Present: normal inspection. Absent: CVA tenderness (R), CVA tenderness (L) Neurological exam: Present: alert, oriented X3, CN II-XII intact, normal gait. Absent: motor sensory deficit Skin exam: Present: warm, dry, intact, normal color. Absent: rash Course Vital Signs 05/13/18 05/13/18 18:03 21:40 Temperature 98 F Pulse Rate 75 77 Respiratory 18 18 Rate Blood Pressure 125/82 113/68 O2 Sat by Pulse 98 95 Oximetry EKG Findings - EKG Results: EKG: interpreted by [facility], sinus rhythm (Rate 69 bpm), normal axis, normal QRS, normal ST/T, no acute changes - NM, Pacemaker, Normal: Normal tracing: normal tracing Medical Decision Making - Lab Data Result diagrams: 05/13/18 19:35 05/13/18 19:35 Lab Results 05/13/18 05/13/18 05/13/18 Range/Units 19:35 19:35 19:35 WBC 14.8 H (3.8-10.6) k/uL RBC 4.81 (3.80-5.40) m/uL Hgb 16.3 H (11.4-16.0) gm/dL Hct 47.0 H (34.0-46.0) % MCV 97.7 (80.0-100.0) fL MCH 33.9 (25.0-35.0) pg MCHC 34.7 (31.0-37.0) g/dL RDW 12.4 (11.5-15.5) % Plt Count 510 H (150-450) k/uL Neutrophils % 74 % Lymphocytes % 18 % Monocytes % 4 % Eosinophils % 2 % Basophils % 0 % Neutrophils # 10.9 H (1.3-7.7) k/uL Lymphocytes # 2.7 (1.0-4.8) k/uL Monocytes # 0.6 (0-1.0) k/uL Eosinophils # 0.3 (0-0.7) k/uL Basophils # 0.1 (0-0.2) k/uL PT (9.0-12.0) sec INR (<1.2) APTT (22.0-30.0) sec Sodium 127 L (137-145) mmol/L Potassium 3.8 (3.5-5.1) mmol/L Chloride 94 L (98-107) mmol/L Carbon Dioxide 22 (22-30) mmol/L Anion Gap 11 mmol/L BUN 12 (7-17) mg/dL Creatinine 0.65 (0.52-1.04) mg/dL Est GFR (CKD-EPI)AfAm >90 (>60 ml/min/1.73 sqM) Est GFR (CKD-EPI)NonAf >90 (>60 ml/min/1.73 sqM) Glucose 98 (74-99) mg/dL Calcium 9.6 (8.4-10.2) mg/dL Total Bilirubin 0.5 (0.2-1.3) mg/dL AST 28 (14-36) U/L ALT 39 (9-52) U/L Alkaline Phosphatase 111 (38-126) U/L Total Creatine Kinase 42 (30-135) U/L CK-MB (CK-2) 0.4 (0.0-2.4) ng/mL CK-MB (CK-2) Rel Index 1.0 Troponin I <0.012 (0.000-0.034) ng/mL Total Protein 7.4 (6.3-8.2) g/dL Albumin 4.1 (3.5-5.0) g/dL 05/13/18 Range/Units 19:35 WBC (3.8-10.6) k/uL RBC (3.80-5.40) m/uL Hgb (11.4-16.0) gm/dL Hct (34.0-46.0) % MCV (80.0-100.0) fL MCH (25.0-35.0) pg MCHC (31.0-37.0) g/dL RDW (11.5-15.5) % Plt Count (150-450) k/uL Neutrophils % % Lymphocytes % % Monocytes % % Eosinophils % % Basophils % % Neutrophils # (1.3-7.7) k/uL Lymphocytes # (1.0-4.8) k/uL Monocytes # (0-1.0) k/uL Eosinophils # (0-0.7) k/uL Basophils # (0-0.2) k/uL PT 9.4 (9.0-12.0) sec INR 0.9 (<1.2) APTT 24.9 (22.0-30.0) sec Sodium (137-145) mmol/L Potassium (3.5-5.1) mmol/L Chloride (98-107) mmol/L Carbon Dioxide (22-30) mmol/L Anion Gap mmol/L BUN (7-17) mg/dL Creatinine (0.52-1.04) mg/dL Est GFR (CKD-EPI)AfAm (>60 ml/min/1.73 sqM) Est GFR (CKD-EPI)NonAf (>60 ml/min/1.73 sqM) Glucose (74-99) mg/dL Calcium (8.4-10.2) mg/dL Total Bilirubin (0.2-1.3) mg/dL AST (14-36) U/L ALT (9-52) U/L Alkaline Phosphatase (38-126) U/L Total Creatine Kinase (30-135) U/L CK-MB (CK-2) (0.0-2.4) ng/mL CK-MB (CK-2) Rel Index Troponin I (0.000-0.034) ng/mL Total Protein (6.3-8.2) g/dL Albumin (3.5-5.0) g/dL Disposition Clinical Impression: Hyponatremia Disposition: HOME SELF-CARE Condition: Good Instructions: Dizziness (ED), Hyponatremia (ED) Additional Instructions: As we discussed, hold the diuretic medicine for 2 days. Also as we discussed he must follow-up to have the sodium rechecked and follow with your physician. Should any of the symptoms we discussed develop please return immediately. Referrals: Evelio Álvarez MD [Primary Care Provider] - 1-2 days
[2018-05-13 23:28] VITALS: BP 129/76
== END 2018-05-13 23:28 | disposition home or self-care (01) ==
LOC: EC 17:22
DX: E87.1 Hypo-osmolality and hyponatremia (principal); R19.7 Diarrhea, unspecified; J44.9 Chronic obstructive pulmonary disease, unspecified; E78.5 Hyperlipidemia, unspecified; I11.0 Hypertensive heart disease with heart failure; I50.9 Heart failure, unspecified; G25.81 Restless legs syndrome; F41.9 Anxiety disorder, unspecified; F31.9 Bipolar disorder, unspecified; M79.7 Fibromyalgia; I25.2 Old myocardial infarction; F17.200 Nicotine dependence, unspecified, uncomplicated; Z88.6 Allergy status to analgesic agent; Z88.8 Allergy status to other drugs, medicaments and biological substances; Z91.018 Allergy to other foods; Z79.891 Long term (current) use of opiate analgesic; Z86.69 Personal history of other diseases of the nervous system and sense organs; Z87.19 Personal history of other diseases of the digestive system; Z79.899 Other long term (current) drug therapy; Z90.49 Acquired absence of other specified parts of digestive tract
CPT/HCPCS: 36415; 93005; 80053; 82550; 82553; 84484; 85025; 85610; 85730; 99284; 96374; 96361 ×2; J2405

== ENCOUNTER → 2018-06-28 | Outpatient (CLI) | payer OTHER ==
[2018-06-28 12:02] LABS: Blood Urea Nitrogen 14 mg/dL (7-17)
--- NOTE | 2018-06-28 13:02 | MR ---
MRI of the brain with and without contrast EXAM DATE: 06/28/2018 HISTORY: Headaches. TECHNIQUE: T1-weighted sagittal, T2, FLAIR, and diffusion axial, postcontrast T1 axial and coronal vi ews of the brain are submitted. CONTRAST: Gadavist 6.5 mL COMPARISON: 04/23/2017 FINDINGS: There is no evidence of acute ischemia. There is no mass effect or enhancing mass. Craniocervical junction maintained. Sella turcica has a normal appearance. No evidence of cerebellopo ntine angle mass. No cerebellopontine angle mass. There is a tiny amount of fluid surrounding the optic nerves bilaterally. Changes of mild chronic sinusitis. WHITE MATTER: There are approximately 5 focal areas of abnormal signal the white matter all measuring 5 mm or less. No enhancing lesions. No callosal lesions No lesions perpendicular to ventricular system. IMPRESSION: 1. Stable minimal nonspecific white matter changes. No interval change in size or number of lesions. No enhancing lesions. Differential diagnosis includes remote microvascular ischemia, hypertension, mi graine headaches or demyelinating process. 2. Findings of mild chronic sinusitis. 3. Tiny amount of fluid surrounding the optic nerves bilaterally is nonspecific and occasionally BE s een with papilledema or increased intracranial hypertension correlate clinically.
== END | disposition home or self-care (01) ==
LOC: RADMRIMAIN 10:57
PROVIDERS: ATTEND Psychiatry & Neurology Neurology
DX: R90.89 Other abnormal findings on diagnostic imaging of central nervous system (principal); H35.89 Other specified retinal disorders
CPT/HCPCS: 82565; 84520; 70553; 36415; A9585

== ENCOUNTER → 2018-09-13 | Outpatient (CLI) | payer OTHER | LOC: LABPAT 09:31 | PROVIDERS: ATTEND Psychiatry & Neurology Pain Medicine | DX: Z01.818 Encounter for other preprocedural examination (principal) | CPT/HCPCS: 36415; 93005 ==

== ENCOUNTER → 2018-09-15 | Outpatient (CLI) | payer OTHER ==
--- NOTE | 2018-09-15 09:05 | BD ---
EXAMINATION TYPE: Axial Bone Density DATE OF EXAM: 09/15/2018 COMPARISON: NONE CLINICAL HISTORY: Osteoporosis screening. Z13.820 Height: 61.5 Weight: 135.4 FRAX RISK QUESTIONS: Alcohol (3 or more units per day): no Family History (Parent hip fracture): no Glucocorticoids (More than 3mos): no (Ex: prednisone, prednisolone, methylprednisolone, dexamethasone, and hydrocortisone). History of Fracture in Adulthood: no Secondary Osteoporosis: 1. Type 1 Diabetes: no 2. Hyperthyroidism: no 3. Menopause before 45: yes 4. Malnutrition: no 5. Chronic liver disease: no Rheumatoid Arthritis: no Current Tobacco Use: yes RISK FACTORS HISTORY OF: Family History of Osteoporosis: yes Active: yes Diet low in dairy products/other sources of calcium: yes Postmenopausal woman: age 40 Lost more than 2 inches in height since high school: no Frequent falls: yes MEDICATIONS: pt stated she takes 23 medications, unsure of what kind and no list Thyroid Medications: synthroid How Long: long time Additional History: EXAM MEASUREMENTS: Bone mineral densitometry was performed using the [employer] System. Bone mineral density as measured about the Lumbar spine is: ----- L1-L4(G/cm2): 0.906 T Score Values are as follows: ----- L2: -2.4 ----- L3: -2.1 ----- L4: -2.6 ----- L1-L4: -2.3 Bone mineral density : baseline Bone mineral density about the R hip (g/cm2): 0.745 Bone mineral density about the L hip (g/cm2): 0.827 T Score values are as follows: -----R Neck: -2.1 -----L Neck: -1.5 -----R Total: -1.7 -----L Total: -1.3 Bone mineral density : baseline IMPRESSION: Osteopenia (T Score between -2.5 and -1). Values approach osteoporosis of the lumbar spine although t here are not 2 consecutive levels of values concordant with osteoporosis in the lumbar spine at this time. There is slightly increased risk of fracture and the patient may be considered for treatment. Re-Screen 2-5 years. NOTE: T-SCORE=SD OF THE YOUNG ADULT MEAN.
--- NOTE | 2018-09-16 13:10 | MM ---
Reason for exam: screening (asymptomatic). Last mammogram was performed 1 year and 5 months ago. History: Patient is postmenopausal and is nulliparous. Family history of breast cancer in aunt at age 42. Took hormonal contraceptives for 6 months. Taking estrogen for 2 years. MG Screening Mammo w CAD Bilateral CC and MLO view(s) were taken. Prior study comparison: April 22, 2017, bilateral MG diagnostic mammo w CAD MIKE. The breast tissue is heterogeneously dense. This may lower the sensitivity of mammography. There is a 10 mm round obscured density in the left breast anterior position along the posterior aspect of the asymmetric tissue on the cc view only. Left asymmetric breast tissue subareolar redemonstrated. ASSESSMENT: Incomplete: need additional imaging evaluation, BI-RAD 0 RECOMMENDATION: Special view mammogram of the left breast.
== END ==
LOC: RADMAMWWP 07:24
PROVIDERS: ATTEND Internal Medicine
DX: Z12.31 Encounter for screening mammogram for malignant neoplasm of breast (principal); M85.88 Other specified disorders of bone density and structure, other site
CPT/HCPCS: 77067; 77080

== ENCOUNTER → 2018-09-29 | Outpatient (CLI) | payer OTHER ==
--- NOTE | 2018-10-03 08:30 | MM ---
Reason for exam: additional evaluation requested from abnormal screening. Last mammogram was performed less than 1 month ago. History: Patient is postmenopausal and is nulliparous. Family history of breast cancer in aunt at age 42. Took hormonal contraceptives for 6 months. Taking estrogen for 2 years. Physical Findings: Nurse did not find any significant physical abnormalities on exam. MG Work Up Mamm w CAD LT Spot compression CC, spot compression MLO, and LM view(s) were taken of the left breast. Prior study comparison: September 15, 2018, bilateral MG screening mammo w CAD. April 22, 2017, bilateral MG diagnostic mammo w CAD MIKE. No discrete abnormality, including area of concern. These results were verbally communicated with the patient and result sheet given to the patient on 09/29/18. ASSESSMENT: Negative, BI-RAD 1 RECOMMENDATION: Return to routine screening mammogram schedule for both breasts.
== END ==
LOC: RADMAMWWP 10:10
PROVIDERS: ATTEND Internal Medicine
DX: R92.8 Other abnormal and inconclusive findings on diagnostic imaging of breast (principal)
CPT/HCPCS: 77065

== ENCOUNTER 2019-01-11 11:29 | Day surgery (SDC) | payer OTHER ==
[2019-01-07 11:31] VITALS: BMI 23.0
[~2019-01-11 11:29] MED LIST: LACTATED RINGERS 1,000 ML IV SCH; METOCLOPRAMIDE 5 MG/ML 2 ML VIAL IVP PRN; ONDANSETRON 4 MG/2 ML VIAL IVP PRN
[2019-01-11 11:45] VITALS: TEMP 97.8
[2019-01-11] MEDS ORDERED: LACTATED RINGERS 1,000 ML IV ONE (11:56)
[2019-01-11] MEDS ORDERED: LIDOCAINE 1% 20 ML VIAL (10MG/ML) FOR IV START INTRADERMA ONE (11:57)
[2019-01-11] MEDS ORDERED: LIDOCAINE 1% INJ 10MG/ML (20 ML MDV) ONE (11:58)
[2019-01-11] MEDS ORDERED: PROPOFOL 10 MG/ML 20 ML VIAL IV ONE (11:58)
[2019-01-11] MEDS ORDERED: GLYCOPYRROLATE 0.2 MG/ML 2 ML VIAL ONE (11:58)
[2019-01-11 12:32] VITALS: RESP 16
--- NOTE | 2019-01-11 12:36 | P.PCN ---
Date of Procedure: 01/11/19 Procedure(s) Performed: Procedure: 1. Esophagogastroduodenoscopy and biopsy. 2. Colonoscopy and biopsy. Preoperative diagnosis: History of reflux and irritable bowel syndrome with diarrhea and abnormal weight loss. Postoperative diagnosis: 1. Small sliding hiatal hernia with no obvious esophagitis or complicated reflux disease. 2. Mild antral gastritis. 3. Biopsies obtained from the duodenum, antrum and esophagus. 4. An isolated area of inflammation in the rectum, close to the rectosigmoid junction, of uncertain clinical significance, otherwise, colon exam within normal limits. 5. Biopsies obtained from the right colon and in the rectum. Preparation: HalfLytely prep. Sedation: Was provided by anesthesia. Brief clinical history: The patient is a 58-year-old female who was evaluated in our office last month regarding worsening reflux symptoms and diarrhea. The patient has history of gastroesophageal reflux disease maintained on twice a day PPI therapy as well as history of irritable bowel syndrome, diarrhea predominant. Her last EGD and colonoscopy where more than 6 years ago. This evaluation is to assess for complicated reflux disease, neoplasia or other pathology. Procedure: With the patient on her left lateral decubitus position and after informed consent and adequate sedation, I passed the Olympus-GIF H190 video upper endoscope through the cricopharyngeus down the esophagus. GE junction was around 38 cm from the incisors and there was a small sliding hiatal hernia but no obvious esophagitis or complicated reflux disease. The endoscope was then passed into the stomach which was insufflated with air and inspected in detail including the retroflex view in the cardia. There was some mottling and erythema in the antrum but no ulcers or erosions. Pyloric channel, duodenal bulb, post bulbar area and descending duodenum appeared within normal limits. I obtained multiple biopsies from the duodenum, antrum and esophagus then the endoscope was withdrawn and I proceeded to perform the colonoscopy. Perianal area did not show any fissures or fistulas. There were no masses felt on digital rectal examination. The Olympus CFH 190L video colonoscope was then inserted in the rectum in the usual fashion and advanced to the cecum. Other than an isolated area of inflammation in the rectum, close to the rectosigmoid junction, the mucosa appeared healthy to the cecum. No polyps or tumors were seen or any obvious diverticular disease or other pathology. I was not able to intubate the ileocecal valve to examine the terminal ileum. Biopsies were obtained from the right colon and rectum then I retroflexed the endoscope in the rectum before the endoscope was withdrawn. The patient tolerated the procedure well. Plan: The patient was reassured. Will await biopsy results. She will follow-up in the office in a week or 2 and we will keep you updated on her progress.
[2019-01-11 12:45] VITALS: BP 122/80; PULSE 77
== END 2019-01-11 13:24 | disposition home or self-care (01) ==
LOC: ORWHC2ENDO 11:29
DX: K44.9 Diaphragmatic hernia without obstruction or gangrene (principal); K29.50 Unspecified chronic gastritis without bleeding; K62.89 Other specified diseases of anus and rectum; K21.9 Gastro-esophageal reflux disease without esophagitis; J45.909 Unspecified asthma, uncomplicated; I11.0 Hypertensive heart disease with heart failure; I50.9 Heart failure, unspecified; K58.0 Irritable bowel syndrome with diarrhea; E78.5 Hyperlipidemia, unspecified; M19.90 Unspecified osteoarthritis, unspecified site; I25.10 Atherosclerotic heart disease of native coronary artery without angina pectoris; I11.9 Hypertensive heart disease without heart failure; F17.210 Nicotine dependence, cigarettes, uncomplicated; E55.9 Vitamin D deficiency, unspecified; M79.7 Fibromyalgia; G25.81 Restless legs syndrome; R55 Syncope and collapse; G40.909 Epilepsy, unspecified, not intractable, without status epilepticus; Z79.890 Hormone replacement therapy; Z79.891 Long term (current) use of opiate analgesic; Z79.51 Long term (current) use of inhaled steroids; Z79.899 Other long term (current) drug therapy; Z88.8 Allergy status to other drugs, medicaments and biological substances; Z88.6 Allergy status to analgesic agent; Z91.030 Bee allergy status
CPT/HCPCS: 88305; 45380; 43239; J2001; J2704

== ENCOUNTER → 2019-07-06 | Outpatient (CLI) | payer OTHER ==
[~2019-07-06] MED LIST changes: +IODINE/POTASS IOD (LUGOLS) 8 ML BTL TOPICAL ONE; -LACTATED RINGERS 1,000 ML IV SCH; -METOCLOPRAMIDE 5 MG/ML 2 ML VIAL IVP PRN; -ONDANSETRON 4 MG/2 ML VIAL IVP PRN
--- NOTE | 2019-07-06 15:55 | NM ---
EXAMINATION TYPE: NM DatScan Brain SPECT DATE OF EXAM: 07/06/2019 COMPARISON: NONE HISTORY: Tremor TECHNIQUE: 10 drops of Lugol's solution was administered 1 hour prior to injection as a thyroid bloc roman agent. After the administration of 4.43 mCi I-123 Ioflupane DaTscan. Images obtained 3 hours p ost injection. SPECT images of the brain were acquired with axial and coronal reconstructions. FINDINGS: The axial SPECT images demonstrate increased background activity and symmetric activity wit hin the bilateral striata. IMPRESSION: 1. Symmetric, shaped uptake is seen within the bilateral striata with no definite abnormality noted.
== END | disposition home or self-care (01) ==
LOC: RADNMMAIN 10:23
PROVIDERS: ATTEND Psychiatry & Neurology Neurology
DX: G25.0 Essential tremor (principal)
CPT/HCPCS: 78607; A9584

== ENCOUNTER → 2019-07-13 | Outpatient (CLI) | payer OTHER ==
[2019-07-13 19:02] LABS: Total Protein,CSF 56 mg/dL (12-60)
[2019-07-13 19:41] LABS: Appearance,CSF Clear; CSF Tube Number 4; CSF Tube Volume 2.75; Nucleated Cells, CSF 1 u/L (0-5); Red Blood Cell,CSF 0 u/L (0-10)
[2019-07-14 13:29] LABS: IgG - CSF 2.6 mg/dL (0.0 - 3.4); Immunoglobulin G 732 mg/dL (700 - 1600)
== END | disposition home or self-care (01) ==
LOC: LABWHC1 09:25
PROVIDERS: ATTEND Psychiatry & Neurology Neurology
DX: R90.82 White matter disease, unspecified (principal); H46.9 Unspecified optic neuritis
CPT/HCPCS: 36415; 82040; 82042; 82784; 83873; 83916; 84157; 87801; 89050

== ENCOUNTER → 2019-09-13 | Outpatient (CLI) | payer OTHER ==
--- NOTE | 2019-09-13 08:26 | US ---
EXAMINATION TYPE: US abdomen complete DATE OF EXAM: 09/13/2019 COMPARISON: NONE CLINICAL HISTORY: R63.4 Abnormal weight loss. Generalized not feeling well, weight loss. Patient stat es she is NPO EXAM MEASUREMENTS: Liver Length: 16.0 cm Gallbladder Wall: 0.4 cm CBD: 0.4 cm Spleen: 9.7 cm Right Kidney: 10.9 x 4.2 x 4.8 cm Left Kidney: 10.4 x 5.1 x 4.2 cm Pancreas: Tail obscured by overlying bowel gas, visualized portions appear wnl Liver: wnl Gallbladder: Wall appears mildly thickened Evidence for sonographic Calderon's sign: No CBD: wnl Spleen: wnl Right Kidney: No hydronephrosis or masses seen Left Kidney: No hydronephrosis or masses seen Upper IVC: wnl Abd Aorta: Atherosclerotic changes visualized, no sonographic evidence for AAA The learning disabilities resource teacher notes possible pericardial fluid. The liver is homogenous. The intrahepatic portion of the IVC and proximal abdominal aorta are within normal limits. Common bile duct is unremarkable . The visualized portions of the pancreas are homogenous. The spleen is unremarkable. Kidneys are symmetric and free of hydronephrosis. No renal lesions are seen. IMPRESSION: 1. Mild diffuse gallbladder wall thickening without other sonographic evidence of acute cholecystitis . HIDA scan could be considered to evaluate for chronic cholecystitis or biliary dyskinesia. 2. Questionable trace pericardial fluid on a single image. Echocardiogram could further evaluate this finding.
== END | disposition home or self-care (01) ==
LOC: RADUSWWP 06:51
PROVIDERS: ATTEND Internal Medicine Gastroenterology
DX: K82.8 Other specified diseases of gallbladder (principal)
CPT/HCPCS: 76700

== ENCOUNTER → 2021-03-01 | Outpatient (CLI) | payer OTHER ==
--- NOTE | 2021-03-01 14:16 | CT ---
EXAMINATION TYPE: CT chest w con DATE OF EXAM: 03/01/2021 COMPARISON: None HISTORY: Cough, observation for mets CT DLP: 135.30 mGycm, Automated exposure control for dose reduction was used. CONTRAST: Performed injected with 100 ml mL of Isovue 300. TECHNIQUE: Axial images were obtained at 5 mm thick sections. Reconstructed images are reviewed on [employer] computer in the coronal plane. FINDINGS: Portion of the thyroid visualized is normal. No suspicious lung nodules or focal infiltrates are present. No enlarged mediastinal or hilar adenopathy is evident. The ascending aorta diameter at the level o f the main pulmonary artery is 2.9 cm. The main pulmonary artery diameter at the bifurcation is 2.4 cm. There is a moderate size pericardial effusion. Limited CT sections are obtained through the upper abdomen. Abdomen is essentially unremarkable. IMPRESSIONS: 1. Moderate-sized pericardial effusion. 2. Suspicious changes are not otherwise evident
== END | disposition home or self-care (01) ==
LOC: RADCTMAIN 08:09
PROVIDERS: ATTEND Internal Medicine Hematology & Oncology
DX: I31.3 Pericardial effusion (noninflammatory) (principal)
CPT/HCPCS: 71260; Q9967

== ENCOUNTER 2021-04-16 06:31 | Day surgery (SDC) | payer OTHER ==
[2021-04-15 13:35] VITALS: BMI 20.6
[2021-04-16 07:01] VITALS: TEMP 98.6
[2021-04-16] MEDS ORDERED: LIDOCAINE 1% (10MG/ML) FOR IV START INTRADERMA ONE ×2 (07:18→07:19)
[2021-04-16] MEDS ORDERED: LACTATED RINGERS 1,000 ML IV ONE (07:26)
[2021-04-16] MEDS ORDERED: PROPOFOL 10 MG/ML 20 ML VIAL IV ONE (09:07)
[2021-04-16] MEDS ORDERED: MIDAZOLAM 2 MG/2 ML VIAL ONE (09:07)
[2021-04-16] MEDS ORDERED: LIDOCAINE 1% INJ 10MG/ML (20 ML MDV) ONE (09:07)
[2021-04-16] MEDS ORDERED: fentaNYL (PF) 50 MCG/ML 2 ML AMP ONE (09:07)
[2021-04-16] MEDS ORDERED: IV FLUID CONTINUATION 200 ML IV ONE (09:35)
[2021-04-16 09:54] VITALS: RESP 16
[2021-04-16 09:56] LABS: Basophils % (A) 1 %; Eosinophils # (A) 0.2 k/uL (0-0.7); Eosinophils % (A) 2 %; HCT 41.8 % (34.0-46.0); HGB 14.1 gm/dL (11.4-16.0); Lymphocytes # (A) 2.2 k/uL (1.0-4.8); Lymphocytes % (A) 24 %; MCH 34.6 pg (25.0-35.0); MCHC 33.8 g/dL (31.0-37.0); MCV 102.5 fL (80.0-100.0); Macrocytosis Slight; Mean Platelet Volume 7.3; Monocytes # (A) 0.5 k/uL (0-1.0); Monocytes % (A) 5 %; Neutrophils # (A) 6.1 k/uL (1.3-7.7); Neutrophils % (A) 67 %; Platelet Count 418 k/uL (150-450); RBC 4.08 m/uL (3.80-5.40); RDW 12.9 % (11.5-15.5); Reticulocyte % 1.6 % (0.5-2.0); WBC 9.1 k/uL (3.8-10.6)
[2021-04-16 10:15] VITALS: BP 157/76; PULSE 97
--- NOTE | 2021-04-16 13:11 | PCN ---
PROCEDURE NOTE DATE OF SERVICE: April 16, 2021. PROCEDURE: Bone marrow aspirate biopsy. INDICATION: Abnormal bone marrow signal on MRI. DESCRIPTION OF PROCEDURE: After obtaining consent from the patient, procedure was performed in the endoscopy suite under general anesthesia performed by anesthesia team. The patient was placed in left lateral decubitus position. The right was localized. Cleansed with ChloraPrep. All sterile procedures were followed. Monoject needle was introduced. 2% lidocaine was used for the anesthetic. Monoject needle was inserted. 10 mL aspirate and about 1.5 cm core biopsy was obtained with the 2nd attempt. There was negligible blood loss. Pressure applied afterwards. The patient tolerated the procedure very well without any immediate complications. MMODL / IJN: [id number] /
== END 2021-04-16 10:25 | disposition home or self-care (01) ==
LOC: OR 06:31
PROVIDERS: ATTEND Internal Medicine Hematology & Oncology
DX: D75.89 Other specified diseases of blood and blood-forming organs (principal); R79.9 Abnormal finding of blood chemistry, unspecified; I31.3 Pericardial effusion (noninflammatory); R56.9 Unspecified convulsions; E03.9 Hypothyroidism, unspecified; K58.9 Irritable bowel syndrome, unspecified; J44.9 Chronic obstructive pulmonary disease, unspecified; F31.9 Bipolar disorder, unspecified; F17.210 Nicotine dependence, cigarettes, uncomplicated; I25.10 Atherosclerotic heart disease of native coronary artery without angina pectoris; I11.0 Hypertensive heart disease with heart failure; I50.9 Heart failure, unspecified; E78.5 Hyperlipidemia, unspecified; I25.2 Old myocardial infarction; F43.10 Post-traumatic stress disorder, unspecified; M79.7 Fibromyalgia; F41.9 Anxiety disorder, unspecified; Z90.89 Acquired absence of other organs; Z90.710 Acquired absence of both cervix and uterus; Z98.890 Other specified postprocedural states; Z80.52 Family history of malignant neoplasm of bladder; Z80.1 Family history of malignant neoplasm of trachea, bronchus and lung; Z80.0 Family history of malignant neoplasm of digestive organs; Z80.8 Family history of malignant neoplasm of other organs or systems; Z80.3 Family history of malignant neoplasm of breast; Z86.19 Personal history of other infectious and parasitic diseases; Z79.890 Hormone replacement therapy; Z79.51 Long term (current) use of inhaled steroids; Z79.899 Other long term (current) drug therapy; Z88.6 Allergy status to analgesic agent; Z88.8 Allergy status to other drugs, medicaments and biological substances
CPT/HCPCS: 85025; 85045; 38222; J2250; J2001; J3010; J2704

== ENCOUNTER 2021-05-10 03:41 | Emergency (ER) | payer OTHER ==
[2021-05-10 03:55] VITALS: TEMP 97.6
--- NOTE | 2021-05-10 04:11 | ED ---
Nausea/Vomiting/Diarrhea HPI - General Chief complaint: Nausea/Vomiting/Diarrhea Stated complaint: NVD Time Seen by Provider: 05/10/21 03:45 Source: patient, RN notes reviewed, old records reviewed Mode of arrival: ambulatory Limitations: no limitations - History of Present Illness Initial comments: This is a 51-year-old female to the emergency department tonight for evaluation, patient presents with multiple complaints tonight. Nausea vomiting weakness decreased appetite weight loss, persistent diarrhea 8-10 times a day significant increase in stress and anxiety. Rectal pain with family states he's abdominal pain. Without fever. Patient believes that his blood in her stool as well. MD complaint: nausea, vomiting, diarrhea, abdominal pain -: days(s) Description of Vomiting: watery Associated Abdominal Pain: Yes Location: diffuse Radiation: none Severity: moderate Severity scale (1-10): 4 Quality: cramping, aching Consistency: constant Improves with: none Worsens with: none Context: recent surgery/procedure Associated Symptoms: loss of appetite, nausea/vomiting, weakness - Related Data Home Medications Medication Instructions Recorded Confirmed Albuterol Inhaler (Mhu) [Ventolin 1 - 2 puff INHALATION RT-Q6H PRN 04/30/17 04/16/21 Hfa Inhaler] Albuterol Nebulized [Ventolin 2.5 mg INHALATION RT-Q4H 04/30/17 04/16/21 Nebulized] Asenapine Maleate [Saphris] 10 mg SUBLINGUAL BID 04/30/17 04/16/21 Sertraline [Zoloft] 250 mg PO QAM 04/30/17 04/16/21 Atorvastatin [Lipitor] 40 mg PO HS 05/24/17 04/16/21 Loratadine [Claritin] 10 mg PO DAILY 05/24/17 04/16/21 Multivitamins, Thera [Multivitamin 1 tab PO DAILY 01/07/19 04/16/21 (formulary)] Pantoprazole Sodium [Protonix] 40 mg PO BID 01/07/19 04/16/21 Albuterol Sulfate [Proair Hfa] 1 - 2 puff INHALATION TID 04/15/21 04/16/21 Amitriptyline HCl [Elavil] 50 mg PO HS 04/15/21 04/16/21 Asenapine Maleate [Saphris] 2.5 mg SUBLINGUAL DAILY@1700 08/09/21 08/10/21 Brivaracetam [Briviact] 20 mg PO BID 04/15/21 04/16/21 Cholecalciferol [Vitamin D3 (25 50 mcg PO DAILY 04/15/21 04/16/21 Mcg = 1000 Iu)] Clobazam [Sympazan] 10 mg PO BID 04/15/21 04/16/21 Docusate [Colace] 100 mg PO HS 04/15/21 04/16/21 Eslicarbazepine Acetate [Aptiom] 400 mg PO BID 04/15/21 04/16/21 Gabapentin 800 mg PO TID 04/15/21 04/16/21 Mometasone/Formoterol [Dulera 50 1 puff PO BID 04/15/21 04/16/21 Mcg-5 Mcg Inhaler] Prazosin [Minipress] 1 mg PO HS 04/15/21 04/16/21 Prazosin [Minipress] 2 mg PO BID 04/15/21 04/16/21 Propranolol [Inderal] 40 mg PO HS 04/15/21 04/16/21 SUMAtriptan SUCCINATE [Imitrex] 100 mg PO DAILY PRN 04/15/21 04/16/21 Topiramate [Trokendi Xr] 100 mg PO DAILY 04/15/21 04/16/21 amLODIPine [Norvasc] 5 mg PO DAILY 04/15/21 04/16/21 busPIRone HCl [Buspar] 20 mg PO QID 04/15/21 04/16/21 rOPINIRole HCL [Requip] 3 mg PO BID 04/15/21 04/16/21 tiZANidine [Zanaflex] 2 mg PO Q8HR 04/15/21 04/16/21 hydrOXYzine pamoate [Vistaril] 50 mg PO BID 04/16/21 04/16/21 Previous Rx's Medication Instructions Recorded EPINEPHrine (Auto Inject) [Epipen] 0.3 mg IM ONCE PRN #1 syringe 08/28/16 Levothyroxine Sodium [Synthroid] 75 mcg PO DAILY #30 tab 08/28/16 Allergies Allergy/AdvReac Type Severity Reaction Status Date / Time bee venom protein (honey bee) Allergy Anaphylaxis Verified 05/10/21 03:55 ibuprofen [From Motrin] AdvReac Nausea & Verified 05/10/21 03:55 Vomiting & Diarrhea Review of Systems ROS Statement: Those systems with pertinent positive or pertinent negative responses have been documented in the HPI. ROS Other: All systems not noted in ROS Statement are negative. Past Medical History Past Medical History: Asthma, Heart Failure, COPD, Eye Disorder, Fibromyalgia, GERD/Reflux, Hyperlipidemia, Hypertension, Memory Impairment, Myocardial Infarction ([place]), Osteoarthritis (OA), Pneumonia, Seizure Disorder, Skin Disorder, Syncope, Thyroid Disorder Additional Past Medical History / Comment(s): IBS, colitis, restless legs flexed syndrome, daily migraines, Vitamin D deficiency, benign left breast mass, gastritis, short term memory loss. Vision - "sees an orange aura." BILAT CATARACTS Last seizure 04/15/21, PT STATES THAT DR. VILLALBA IS AWARE"Legs are weak and balance is off." FELL SAT. AND INJURED TAILBONE, checked bone marrow for cancer Last Myocardial Infarction Date:: unknown History of Any Multi-Drug Resistant Organisms: None Reported Past Surgical History: Appendectomy, Hysterectomy, Orthopedic Surgery, Uterine Ablation Additional Past Surgical History / Comment(s): D&C, bilateral knee arthroscopy. Past Anesthesia/Blood Transfusion Reactions: No Reported Reaction Past Psychological History: Anxiety, Bipolar, Depression, PTSD Smoking Status: Current every day smoker Past Alcohol Use History: None Reported Past Drug Use History: Marijuana - Past Family History Father Family Medical History: Cancer Additional Family Medical History / Comment(s): Father of pancreatic cancer at the age of 62yrs. Mother Family Medical History: Congestive Heart Failure (CHF) Additional Family Medical History / Comment(s): Mother of CHF at the age of 60yrs. Brother(s) Additional Family Medical History / Comment(s): Patient had 1 brother that at 5 months of age. Sister(s) Additional Family Medical History / Comment(s): Patient has one sister with history of depression and bipolar. Patient has 2 half-sisters and one at age 26 from overdose. Patient does not have any children. General Exam General appearance: alert, in no apparent distress Head exam: Present: atraumatic, normocephalic, normal inspection Eye exam: Present: normal appearance, PERRL, EOMI. Absent: scleral icterus, conjunctival injection, periorbital swelling ENT exam: Present: normal exam, mucous membranes moist Neck exam: Present: normal inspection. Absent: tenderness, meningismus, lymphadenopathy Respiratory exam: Present: normal lung sounds bilaterally. Absent: respiratory distress, wheezes, rales, rhonchi, stridor Cardiovascular Exam: Present: regular rate, normal rhythm, normal heart sounds. Absent: systolic murmur, diastolic murmur, rubs, gallop, clicks GI/Abdominal exam: Present: soft, normal bowel sounds. Absent: distended, tenderness, guarding, rebound, rigid Extremities exam: Present: normal inspection, full ROM, normal capillary refill. Absent: tenderness, pedal edema, joint swelling, calf tenderness Back exam: Present: normal inspection Neurological exam: Present: alert, oriented X3, CN II-XII intact Psychiatric exam: Present: normal affect, normal mood Skin exam: Present: warm, dry, intact, normal color. Absent: rash Course Vital Signs 05/10/21 03:50 Temperature 97.6 F Pulse Rate 92 Respiratory 18 Rate Blood Pressure 95/40 O2 Sat by Pulse 99 Oximetry - Reevaluation(s) Reevaluation #1: 05/10/21 06:38 Medical records reviewed Reevaluation #2: 05/10/21 06:38 patient has no improvement in symptoms here in the ER Reevaluation #3: 05/10/21 06:38 Patient informed results and questions have been answered Medical Decision Making - Medical Decision Making 51 female to the emergency department for evaluation patient presents today for evaluation of weakness persistent diarrhea colitis, dehydration and electrolyte abnormalities. Patient will be admitted for symptomatic therapy - Lab Data Result diagrams: 05/10/21 04:31 05/10/21 04:31 Lab Results 05/10/21 05/10/21 Range/Units 04:31 04:31 WBC 12.8 H (3.8-10.6) k/uL RBC 3.53 L (3.80-5.40) m/uL Hgb 12.6 (11.4-16.0) gm/dL Hct 35.8 (34.0-46.0) % MCV 101.6 H (80.0-100.0) fL MCH 35.6 H (25.0-35.0) pg MCHC 35.1 (31.0-37.0) g/dL RDW 14.1 (11.5-15.5) % Plt Count 452 H (150-450) k/uL MPV 7.0 Neutrophils % 74 % Lymphocytes % 13 % Monocytes % 8 % Eosinophils % 3 % Basophils % 1 % Neutrophils # 9.5 H (1.3-7.7) k/uL Lymphocytes # 1.6 (1.0-4.8) k/uL Monocytes # 1.0 (0-1.0) k/uL Eosinophils # 0.3 (0-0.7) k/uL Basophils # 0.1 (0-0.2) k/uL Macrocytosis Slight Sodium 128 L (137-145) mmol/L Potassium 5.4 H (3.5-5.1) mmol/L Chloride 106 (98-107) mmol/L Carbon Dioxide 14 L (22-30) mmol/L Anion Gap 8 mmol/L BUN 16 (7-17) mg/dL Creatinine 0.81 (0.52-1.04) mg/dL Est GFR (CKD-EPI)AfAm >90 (>60 ml/min/1.73 sqM) Est GFR (CKD-EPI)NonAf 86 (>60 ml/min/1.73 sqM) Glucose 103 H (74-99) mg/dL Calcium 9.3 (8.4-10.2) mg/dL Phosphorus 4.2 (2.5-4.5) mg/dL Magnesium 1.3 L (1.6-2.3) mg/dL Total Bilirubin 0.9 (0.2-1.3) mg/dL AST 38 H (14-36) U/L ALT 14 (4-34) U/L Alkaline Phosphatase 111 (38-126) U/L Total Protein 6.8 (6.3-8.2) g/dL Albumin 3.5 (3.5-5.0) g/dL Amylase 47 (30-110) U/L Lipase 129 (23-300) U/L - Radiology Data Radiology results: report reviewed (CT head and pelvis does show significant n onspecific colitis), image reviewed Disposition Clinical Impression: Dehydration, Gastroenteritis, Hypomagnesemia, Hypokalemia, Colitis Disposition: ADMITTED IP TO THIS [facility] Condition: Good Is patient prescribed a controlled substance at d/c from ED?: No Referrals: Harpreet Ballard MD [Primary Care Provider] - 1-2 days
[2021-05-10] MEDS ORDERED: SODIUM CHLORIDE 0.9% 1,000 ML IV STA ×3 (04:17→06:32)
[2021-05-10] MEDS ORDERED: PANTOPRAZOLE 40 MG/10 ML VIAL IVP STA (04:18)
[2021-05-10] MEDS ORDERED: ONDANSETRON 4 MG/2 ML VIAL IVP STA (04:18)
[2021-05-10] MEDS ORDERED: MORPHINE SULFATE 4 MG/ML SYRINGE IVP STA (04:30)
[2021-05-10 04:53] LABS: Basophils # (A) 0.1 k/uL (0-0.2); Basophils % (A) 1 %; Eosinophils # (A) 0.3 k/uL (0-0.7); Eosinophils % (A) 3 %; HCT 35.8 % (34.0-46.0); HGB 12.6 gm/dL (11.4-16.0); Lymphocytes # (A) 1.6 k/uL (1.0-4.8); Lymphocytes % (A) 13 %; MCH 35.6 pg (25.0-35.0); MCHC 35.1 g/dL (31.0-37.0); MCV 101.6 fL (80.0-100.0); Macrocytosis Slight; Monocytes % (A) 8 %; Neutrophils # (A) 9.5 k/uL (1.3-7.7); Neutrophils % (A) 74 %; Platelet Count 452 k/uL (150-450); RBC 3.53 m/uL (3.80-5.40); RDW 14.1 % (11.5-15.5); WBC 12.8 k/uL (3.8-10.6)
[2021-05-10 05:10] LABS: ALT 14 U/L (4-34); AST 38 U/L (14-36); African American GFR (CKD) >90 (>60 ml/min/1.73 sqM); Albumin 3.5 g/dL (3.5-5.0); Alkaline Phosphatase 111 U/L (38-126); Amylase 47 U/L (30-110); Anion Gap 8 mmol/L; Blood Urea Nitrogen 16 mg/dL (7-17); Calcium 9.3 mg/dL (8.4-10.2); Carbon Dioxide 14 mmol/L (22-30); Chloride 106 mmol/L (98-107); Glucose 103 mg/dL (74-99); Lipase 129 U/L (23-300); Magnesium 1.3 mg/dL (1.6-2.3); Non-African American GFR(CKD) 86 (>60 ml/min/1.73 sqM); Phosphorus 4.2 mg/dL (2.5-4.5); Sodium 128 mmol/L (137-145); Total Bilirubin 0.9 mg/dL (0.2-1.3); Total Protein 6.8 g/dL (6.3-8.2)
[2021-05-10 05:17] LABS: Potassium 5.4 mmol/L (3.5-5.1)
--- NOTE | 2021-05-10 06:03 | CT ---
EXAMINATION TYPE: CT abdomen pelvis w con DATE OF EXAM: 05/10/2021 COMPARISON: None HISTORY: N/V/D, Blood in diarrhea CT DLP: 683.60 mGycm Automated exposure control for dose reduction was used. CONTRAST: Performed with IV Contrast, patient injected with 100 mL of Isovue 300. Images obtained from the diaphragm to the floor the pelvis with IV contrast. There is pericardial effusion. Lung bases are clear of infiltrate. There is no pleural effusion. Liver spleen stomach pancreas gallbladder appear intact. Bile ducts are not dilated. There is no adre nal mass. Kidneys show satisfactory contrast opacification. There is no hydronephrosis. Ureters are n ot dilated. There is no retroperitoneal adenopathy. Bladder distends smoothly. There is no inguinal h ernia. There is no free fluid in the pelvis. There is wall thickening involving the ascending colon a nd transverse colon. There is no evidence of free air. There is no ascites. There is no evidence of a pelvic mass. There is hysterectomy. Lumbar vertebra have normal alignment. Disc spaces are fairly no rmal. There is 15% wedging of L1 vertebral body. Appendix is not clearly seen. There is no sign of th ickened appendix. There is no sign of a bowel obstruction. Small bowel is not dilated. There is some mild wall thickening also seen in the lower sigmoid colon. Bony pelvis is intact. Hip joints are intact. IMPRESSION: Wall thickening and edema seen in the ascending colon and transverse colon and lower sigmoid colon co nsistent with nonspecific colitis. No evidence of a bowel obstruction. Pericardial effusion. Fluid measures up to 1.5 cm in thickness. There is compression fracture of L1 which is not changed compared to chest CT scan of 03/01/2021. Heather cardial effusion not significantly different than old CT scan.
[2021-05-10] MEDS ORDERED: MAGNESIUM OXIDE 400 MG TAB PO STA ×2 (06:10)
[2021-05-10] MEDS ORDERED: NALOXONE 0.4 MG/ML 1 ML VIAL IV PRN (06:33)
[2021-05-10] MEDS ORDERED: MORPHINE SULFATE 4 MG/ML SYRINGE IV PRN (06:33)
[2021-05-10] MEDS ORDERED: ONDANSETRON 4 MG/2 ML VIAL IVP PRN (06:33)
[2021-05-10 07:00] VITALS: RESP 16
[2021-05-10] MEDS ORDERED: MAGNESIUM SULFATE-D5W PMX 1 GM in DEXTROSE/WATER 1 100ML.BAG IVPB SCH (07:00)
[2021-05-10 07:10] VITALS: BP 138/72; PULSE 85
[2021-05-10] MEDS ORDERED: PANTOPRAZOLE 40 MG/10 ML VIAL IV SCH (16:00)
== END 2021-05-10 06:59 | disposition other institution (70) ==
LOC: EC 03:41 → 5NMEDONC 06:34 → UNDOADMIN 06:34 → UNDODISIN 07:08
DX: E83.42 Hypomagnesemia (principal); I11.0 Hypertensive heart disease with heart failure; I50.9 Heart failure, unspecified; G40.909 Epilepsy, unspecified, not intractable, without status epilepticus; K52.9 Noninfective gastroenteritis and colitis, unspecified; F31.9 Bipolar disorder, unspecified; J44.9 Chronic obstructive pulmonary disease, unspecified; Z53.21 Procedure and treatment not carried out due to patient leaving prior to being seen by health care provider; E87.6 Hypokalemia; E86.0 Dehydration; K21.9 Gastro-esophageal reflux disease without esophagitis; E78.5 Hyperlipidemia, unspecified; G43.909 Migraine, unspecified, not intractable, without status migrainosus; E55.9 Vitamin D deficiency, unspecified; K58.9 Irritable bowel syndrome, unspecified; M19.90 Unspecified osteoarthritis, unspecified site; I25.2 Old myocardial infarction; F17.200 Nicotine dependence, unspecified, uncomplicated; Z79.51 Long term (current) use of inhaled steroids; Z79.899 Other long term (current) drug therapy; Z87.01 Personal history of pneumonia (recurrent); Z98.42 Cataract extraction status, left eye; Z98.41 Cataract extraction status, right eye; Z88.6 Allergy status to analgesic agent; Z91.030 Bee allergy status
CPT/HCPCS: 96361; 96374; 96375; 99285; 80053; 82150; 83690; 83735; 84100; 85025; 74177; J2270; J2405; C9113; Q9967

== ENCOUNTER 2021-05-10 10:13 | Observation (INO) | payer OTHER ==
[2021-05-10] MEDS ORDERED: SODIUM CHLORIDE 0.9% 500 ML 500 ML IV STA (10:47)
--- NOTE | 2021-05-10 11:30 | ED ---
Recheck HPI - General Chief Complaint: Recheck/Abnormal Lab/Rx Stated Complaint: Revisit GI bleed Time Seen by Provider: 05/10/21 10:30 Source: patient Mode of arrival: wheelchair Limitations: no limitations - History of Present Illness Initial Comments: Patient is a 51-year-old female, with multiple comorbidities including colitis, hypertension, GERD, seizure disorder, presenting to the emergency department after leaving AMA earlier today. Patient states she was seen late last night for dehydration, nausea, weakness and having blood in her stools. She was admitted however left about 45 minutes later as she was "scared". She states she talked to a few of her doctors and they urged her to come back and for evaluation. Patient states she feels the same, she continues to be nauseous, abdominal pain and not able to tolerate oral intake. She does admit to having blood in her stools on and off for many months now, she does have history of hem orrhoids, it only happens when she has a bowel movement it is bright red in nature, this is not continuous. She does have an appointment with FELTON Rudd, on May 21. She states that she is willing to stay in the hospital to receive fluids and medications to improve her symptoms. She denies any recent fevers or chills. She is having a mild headache, no blurry vision or changes in her vision. She denies any chest pain or shortness of breath at this time. She has no further complaints. Her vitals are stable upon arrival. - Related Data Home Medications Medication Instructions Recorded Confirmed Albuterol Nebulized [Ventolin 2.5 mg INHALATION RT-Q4H 04/30/17 05/10/21 Nebulized] Asenapine Maleate [Saphris] 10 mg SUBLINGUAL BID 04/30/17 05/10/21 Sertraline [Zoloft] 250 mg PO DAILY 04/30/17 05/10/21 Atorvastatin [Lipitor] 40 mg PO HS 05/24/17 05/10/21 Loratadine [Claritin] 10 mg PO DAILY 05/24/17 05/10/21 Pantoprazole Sodium [Protonix] 40 mg PO BID 01/07/19 05/10/21 Asenapine Maleate [Saphris] 2.5 mg SUBLINGUAL DAILY PRN 04/15/21 05/10/21 Brivaracetam [Briviact] 10 mg PO BID 04/15/21 05/10/21 Clobazam [Sympazan] 10 mg PO BID 04/15/21 05/10/21 Docusate [Colace] 100 mg PO DAILY PRN 04/15/21 05/10/21 Gabapentin 800 mg PO TID 04/15/21 05/10/21 Mometasone/Formoterol [Dulera 50 2 puff PO RT-BID 04/15/21 05/10/21 Mcg-5 Mcg Inhaler] Propranolol [Inderal] 40 mg PO BID 04/15/21 05/10/21 SUMAtriptan SUCCINATE [Imitrex] 100 mg PO DAILY PRN 04/15/21 05/10/21 Topiramate [Trokendi Xr] 100 mg PO DAILY 04/15/21 05/10/21 amLODIPine [Norvasc] 5 mg PO DAILY 04/15/21 05/10/21 busPIRone HCl [Buspar] 20 mg PO QID 04/15/21 05/10/21 tiZANidine [Zanaflex] 2 mg PO TID PRN 04/15/21 05/10/21 hydrOXYzine pamoate [Vistaril] 50 mg PO TID PRN 04/16/21 05/10/21 Albuterol Sulfate [Proair Hfa] 2 puff INHALATION RT-QID PRN 05/10/21 05/10/21 Amitriptyline HCl [Elavil] 100 mg PO HS 05/10/21 05/10/21 Butalb/Asprin/Caff 50-325-40Mg 1 cap PO Q8H PRN 05/10/21 05/10/21 [Fiorinal 50-325-40 MG] Colchicine [Mitigare] 0.6 mg PO BID 05/10/21 05/10/21 Diclofenac Potassium [Cataflam] 50 mg PO TID 05/10/21 05/10/21 Eslicarbazepine Acetate [Aptiom] 800 mg PO DAILY 05/10/21 05/10/21 Etodolac [Lodine] 300 mg PO DAILY 05/10/21 05/10/21 Furosemide [Lasix] 20 mg PO DAILY 05/10/21 05/10/21 Linaclotide [Linzess] 290 mcg PO DAILY 05/10/21 05/10/21 Potassium Chloride ER [K-Dur 10] 10 meq PO DAILY 05/10/21 05/10/21 Prazosin HCl [Minipress] 4 mg PO DAILY@1200 05/10/21 05/10/21 Prazosin HCl [Minipress] 6 mg PO HS 05/10/21 05/10/21 Tiotropium 18 Mcg/Puff [Spiriva] 1 puff INHALATION RT-DAILY 05/10/21 05/10/21 rOPINIRole HCL [Requip] 1 mg PO BID 05/10/21 05/10/21 rOPINIRole HCL [Requip] 2 mg PO BID 05/10/21 05/10/21 Previous Rx's Medication Instructions Recorded EPINEPHrine (Auto Inject) [Epipen] 0.3 mg IM ONCE PRN #1 syringe 08/28/16 Levothyroxine Sodium [Synthroid] 75 mcg PO DAILY #30 tab 08/28/16 Allergies Allergy/AdvReac Type Severity Reaction Status Date / Time bee venom protein (honey bee) Allergy Anaphylaxis Verified 05/10/21 03:55 ibuprofen [From Motrin] AdvReac Nausea & Verified 05/10/21 03:55 Vomiting & Diarrhea Review of Systems ROS Statement: Those systems with pertinent positive or pertinent negative responses have been documented in the HPI. ROS Other: All systems not noted in ROS Statement are negative. Past Medical History Past Medical History: Asthma, Heart Failure, COPD, Eye Disorder, Fibromyalgia, GERD/Reflux, Hyperlipidemia, Hypertension, Memory Impairment, Myocardial Infarction ([place]), Osteoarthritis (OA), Pneumonia, Seizure Disorder, Skin Disorder, Syncope, Thyroid Disorder Additional Past Medical History / Comment(s): IBS, colitis, restless legs flexed syndrome, daily migraines, Vitamin D deficiency, benign left breast mass, gastritis, short term memory loss. Vision - "sees an orange aura." BILAT CATARACTS Last seizure 04/15/21, PT STATES THAT DR. VILLALBA IS AWARE"Legs are weak and balance is off." FELL SAT. AND INJURED TAILBONE, checked bone marrow for cancer Last Myocardial Infarction Date:: unknown History of Any Multi-Drug Resistant Organisms: None Reported Past Surgical History: Appendectomy, Hysterectomy, Orthopedic Surgery, Uterine Ablation Additional Past Surgical History / Comment(s): D&C, bilateral knee arthroscopy. Past Anesthesia/Blood Transfusion Reactions: No Reported Reaction Past Psychological History: Anxiety, Bipolar, Depression, PTSD Smoking Status: Current every day smoker Past Alcohol Use History: None Reported Past Drug Use History: Marijuana - Past Family History Father Family Medical History: Cancer Additional Family Medical History / Comment(s): Father of pancreatic cancer at the age of 62yrs. Mother Family Medical History: Congestive Heart Failure (CHF) Additional Family Medical History / Comment(s): Mother of CHF at the age of 60yrs. Brother(s) Additional Family Medical History / Comment(s): Patient had 1 brother that at 5 months of age. Sister(s) Additional Family Medical History / Comment(s): Patient has one sister with history of depression and bipolar. Patient has 2 half-sisters and one at age 26 from overdose. Patient does not have any children. General Exam - General Exam Comments Initial Comments: GENERAL: Patient is well-developed and well-nourished. Patient is nontoxic and in mild distress. HEAD: Atraumatic, normocephalic. EYES: Pupils equal round and reactive to light, extraocular movements intact, sclera anicteric, conjunctiva are normal. Eyelids were unremarkable. ENT: Nares patent, oropharynx clear without exudates. Moist mucous membranes. NECK: Normal range of motion, supple without lymphadenopathy or JVD. LUNGS: Unlabored respirations. Breath sounds clear to auscultation bilaterally and equal. No wheezes rales or rhonchi. HEART: Regular rate and rhythm without murmurs, rubs or gallops. ABDOMEN: Soft, generalized abdominal tenderness, no specific area pain, normoactive bowel sounds. No guarding, no rebound. No masses appreciated. : Deferred MUSCULOSKELETAL: Normal extremities with adequate strength and normal range of motion, no pitting or edema. No clubbing or cyanosis. NEUROLOGICAL: Patient is alert and oriented x 3. Motor and sensory are also intact. Cranial nerves II through XII grossly intact. Symmetrical smile. Normal speech, normal gait. PSYCH: Normal mood, normal affect. SKIN: Warm, Dry, normal turgor, no rashes or lesions noted. Limitations: no limitations Course Vital Signs 05/10/21 10:21 Temperature 97.6 F Pulse Rate 70 Respiratory 16 Rate Blood Pressure 101/58 O2 Sat by Pulse 99 Oximetry Medical Decision Making - Medical Decision Making Patient is a 51-year-old female here with abdominal pain, nausea, dehydration, diarrhea over the past few days. She was seen here earlier today, admitted and left AMA as she was scared. She returned about 2-3 hours later wanting to stay. She states she feels about the same. She has generalized abdominal pain on palpation, no specific area. She continues to be nauseous. Her vital signs are stable. Labs from earlier this morning at 4:30 in the morning show a slight white count at 12.8, sodium was 128 with potassium of 5.4, this was hemolyzed. Magnesium was low at 1.3 lipase was normal at 129. He received 1 L of fluids and some magnesium prior to leaving AMA. Her sodium has improved to 132 and magnesium currently is 1.4. She continues to feel nauseous and weak. Patient will be admitted, interviewed on Protonix, fluids and Zofran as needed, patient accepted by Dr. Cuevas. Case discussed with Dr. Marshall. - Lab Data Result diagrams: 05/10/21 11:28 05/10/21 11:28 Lab Results 05/10/21 05/10/21 Range/Units 11:28 11:28 WBC 8.7 (3.8-10.6) k/uL RBC 3.20 L (3.80-5.40) m/uL Hgb 11.0 L (11.4-16.0) gm/dL Hct 32.8 L (34.0-46.0) % MCV 102.6 H (80.0-100.0) fL MCH 34.6 (25.0-35.0) pg MCHC 33.7 (31.0-37.0) g/dL RDW 14.4 (11.5-15.5) % Plt Count 527 H (150-450) k/uL MPV 6.5 Neutrophils % 64 % Lymphocytes % 21 % Monocytes % 7 % Eosinophils % 3 % Basophils % 1 % Neutrophils # 5.6 (1.3-7.7) k/uL Lymphocytes # 1.9 (1.0-4.8) k/uL Monocytes # 0.6 (0-1.0) k/uL Eosinophils # 0.3 (0-0.7) k/uL Basophils # 0.1 (0-0.2) k/uL Macrocytosis Slight Sodium 132 L (137-145) mmol/L Potassium 4.2 (3.5-5.1) mmol/L Chloride 107 (98-107) mmol/L Carbon Dioxide 19 L (22-30) mmol/L Anion Gap 6 mmol/L BUN 13 (7-17) mg/dL Creatinine 0.81 (0.52-1.04) mg/dL Est GFR (CKD-EPI)AfAm >90 (>60 ml/min/1.73 sqM) Est GFR (CKD-EPI)NonAf 86 (>60 ml/min/1.73 sqM) Glucose 95 (74-99) mg/dL Calcium 9.2 (8.4-10.2) mg/dL Magnesium 1.4 L (1.6-2.3) mg/dL Total Bilirubin 0.3 (0.2-1.3) mg/dL AST 18 (14-36) U/L ALT 11 (4-34) U/L Alkaline Phosphatase 113 (38-126) U/L Total Protein 5.7 L (6.3-8.2) g/dL Albumin 3.0 L (3.5-5.0) g/dL Disposition Clinical Impression: Hypomagnesemia, Colitis, Dehydration, Hyponatremia Disposition: ADMITTED IP TO THIS [facility] Condition: Stable Referrals: Harpreet Ballard MD [Primary Care Provider] - 1-2 days Decision Date: 05/10/21 Decision Time: 12:05
[2021-05-10 11:43] LABS: Basophils # (A) 0.1 k/uL (0-0.2); Basophils % (A) 1 %; Eosinophils # (A) 0.3 k/uL (0-0.7); Eosinophils % (A) 3 %; HCT 32.8 % (34.0-46.0); Lymphocytes # (A) 1.9 k/uL (1.0-4.8); Lymphocytes % (A) 21 %; MCH 34.6 pg (25.0-35.0); MCHC 33.7 g/dL (31.0-37.0); MCV 102.6 fL (80.0-100.0); Macrocytosis Slight; Mean Platelet Volume 6.5; Monocytes # (A) 0.6 k/uL (0-1.0); Monocytes % (A) 7 %; Neutrophils # (A) 5.6 k/uL (1.3-7.7); Neutrophils % (A) 64 %; Platelet Count 527 k/uL (150-450); RDW 14.4 % (11.5-15.5); WBC 8.7 k/uL (3.8-10.6)
[2021-05-10 11:48] LABS: ALT 11 U/L (4-34); AST 18 U/L (14-36); African American GFR (CKD) >90 (>60 ml/min/1.73 sqM); Alkaline Phosphatase 113 U/L (38-126); Anion Gap 6 mmol/L; Blood Urea Nitrogen 13 mg/dL (7-17); Calcium 9.2 mg/dL (8.4-10.2); Carbon Dioxide 19 mmol/L (22-30); Chloride 107 mmol/L (98-107); Glucose 95 mg/dL (74-99); Magnesium 1.4 mg/dL (1.6-2.3); Non-African American GFR(CKD) 86 (>60 ml/min/1.73 sqM); Potassium 4.2 mmol/L (3.5-5.1); Sodium 132 mmol/L (137-145); Total Bilirubin 0.3 mg/dL (0.2-1.3); Total Protein 5.7 g/dL (6.3-8.2)
[2021-05-10] MEDS ORDERED: MORPHINE SULFATE 2 MG/ML SYRINGE IV PRN (12:02)
[2021-05-10] MEDS ORDERED: ONDANSETRON 4 MG/2 ML VIAL IVP PRN (12:02)
[2021-05-10] MEDS ORDERED: NALOXONE 0.4 MG/ML 1 ML VIAL IV PRN (12:02)
[2021-05-10] MEDS: SODIUM CHLORIDE 0.9% 1,000 ML IV SCH ×2 (13:46→21:42)
[2021-05-10] MEDS: PANTOPRAZOLE 40 MG/10 ML VIAL IV SCH (13:46)
[2021-05-10 14:08] LABS: Appearance,Urine Clear (Clear); Bacteria,Urine Rare /hpf; Bilirubin,Urine Negative (Negative); Blood,Urine Negative (Negative); Color,Urine Light Yellow; Glucose,Urine (UA) Negative (Negative); Hyaline Casts,Urine 1 /lpf (0-2); Ketones,Urine Negative (Negative); Leukocyte Esterase,Urine Small (Negative); Nitrite,Urine Positive (Negative); PH, Urine 5.5 (5.0-8.0); Protein,Urine Negative (Negative); RBC,Urine 1 /hpf (0-5); Specific Gravity,Urine 1.017 (1.001-1.035); Squamous Epithelial Cell,Urine 1 /hpf (0-4); Urobilinogen,Urine <2.0 mg/dL (<2.0); WBC,Urine 15 /hpf (0-5)
[2021-05-10] MEDS ORDERED: Magnesium Replacement Protocol 1 EACH MISC MISCELLANE PRN (14:46)
[2021-05-10] MEDS ORDERED: hydrOXYzine pamoate 25 MG CAP PO PRN (14:47)
[2021-05-10] MEDS ORDERED: DOCUSATE 100 MG CAP PO PRN (14:47)
[2021-05-10] MEDS ORDERED: SUMAtriptan succinate 50 MG TAB PO PRN (14:47)
[2021-05-10] MEDS ORDERED: tiZANidine 4 MG TAB PO PRN (14:47)
[2021-05-10] MEDS ORDERED: NON FORMULARY DRUG (Butalb/Asprin/Caff 50-325-40mg 1 EACH Cap) PO PRN (14:47)
[2021-05-10] MEDS ORDERED: ALBUTEROL HFA INHALER INHALATION PRN (14:47)
[2021-05-10] MEDS ORDERED: ASENAPINE 5 MG TAB SUBLINGUAL PRN (14:47)
[2021-05-10] MEDS: MAGNESIUM SULFATE-D5W PMX 1 GM in DEXTROSE/WATER 1 100ML.BAG IVPB SCH ×3 (15:13→18:21)
[2021-05-10] MEDS: ALBUTEROL NEBULIZED 2.5 MG/3 ML INHALATION SCH ×2 (15:52→19:55)
[2021-05-10] MEDS: GABAPENTIN 400 MG CAP PO SCH ×2 (16:54→21:14)
[2021-05-10] MEDS: busPIRone HCl 10 MG TAB PO SCH ×2 (18:09→21:20)
[2021-05-10] MEDS ORDERED: PRAZOSIN 1 MG CAP PO SCH ×2 (18:30→21:00)
[2021-05-10] MEDS: SYMBICORT 80-4.5 MCG INHALER INHALATION SCH (19:55)
[2021-05-10] MEDS ORDERED: ATORVASTATIN 40 MG TAB PO SCH (21:00)
[2021-05-10] MEDS ORDERED: AMITRIPTYLINE HCL 50 MG TAB PO SCH (21:00)
[2021-05-10] MEDS: BRIVARACETAM PO SCH ×2 (21:14→22:33)
[2021-05-10] MEDS: PANTOPRAZOLE 40 MG TABLET PO SCH (21:14)
[2021-05-10] MEDS: CLOBAZAM 10 MG PO SCH ×2 (21:14→22:33)
[2021-05-10] MEDS: ASENAPINE 5 MG TAB SUBLINGUAL SCH (21:15)
[2021-05-10] MEDS: PROPRANOLOL 40 MG TAB PO SCH (21:19)
[2021-05-10] MEDS: COLCHICINE 0.6 MG EACH PO SCH (21:19)
[2021-05-11] MEDS: ALBUTEROL NEBULIZED 2.5 MG/3 ML INHALATION SCH ×4 (02:30→11:31)
[2021-05-11] MEDS ORDERED: LEVOTHYROXINE 75 MCG TAB PO SCH (06:30)
[2021-05-11] MEDS: PROPRANOLOL 40 MG TAB PO SCH (07:48)
[2021-05-11] MEDS: PANTOPRAZOLE 40 MG/10 ML VIAL IV SCH (07:48)
[2021-05-11] MEDS: busPIRone HCl 10 MG TAB PO SCH (07:49)
[2021-05-11] MEDS: COLCHICINE 0.6 MG EACH PO SCH (07:49)
[2021-05-11] MEDS: ASENAPINE 5 MG TAB SUBLINGUAL SCH (07:50)
[2021-05-11] MEDS: GABAPENTIN 400 MG CAP PO SCH (07:51)
[2021-05-11] MEDS: PANTOPRAZOLE 40 MG TABLET PO SCH (07:52)
[2021-05-11] MEDS ORDERED: TIOTROPIUM 2.5 MCG INHALER INHALATION SCH (08:00)
[2021-05-11] MEDS: SYMBICORT 80-4.5 MCG INHALER INHALATION SCH (08:23)
[2021-05-11] MEDS: BRIVARACETAM PO SCH (08:25)
[2021-05-11] MEDS: CLOBAZAM 10 MG PO SCH (08:25)
[2021-05-11] MEDS ORDERED: NICOTINE 21MG/24HR PATCH TRANSDERM STA (08:29)
[2021-05-11 08:32] VITALS: BP 110/73; PULSE 92; RESP 18; TEMP 98.1
[2021-05-11] MEDS: SODIUM CHLORIDE 0.9% 1,000 ML IV SCH (08:40)
[2021-05-11] MEDS ORDERED: ETODOLAC 300 MG CAPSULE PO SCH (09:00)
[2021-05-11] MEDS ORDERED: amLODIPine 5 MG TAB PO SCH (09:00)
[2021-05-11] MEDS ORDERED: TOPIRAMATE 25 MG TAB PO SCH (09:00)
[2021-05-11] MEDS ORDERED: LORATADINE 10 MG TAB PO SCH (09:00)
[2021-05-11] MEDS ORDERED: POTASSIUM CHLORIDE ER 10 MEQ TAB.ER.PRT PO SCH (09:00)
[2021-05-11] MEDS ORDERED: NON FORMULARY DRUG (Linaclotide [Linzess] 290 MCG Capsule) PO SCH (09:00)
[2021-05-11] MEDS ORDERED: ESLICARBAZEPINE ACETATE 400 MG PO SCH ×2 (09:00→09:30)
[2021-05-11] MEDS ORDERED: FUROSEMIDE 20 MG TAB PO SCH (09:00)
[2021-05-11] MEDS ORDERED: SERTRALINE 100 MG TAB PO SCH (09:00)
[2021-05-11] MEDS ORDERED: PRAZOSIN 1 MG CAP PO SCH (12:00)
--- NOTE | 2021-05-11 19:09 | P.HPIM ---
History of Present Illness H&P Date: 05/11/21 Patient was not in the room, at apparently began went home AGAINST MEDICAL ADVICE, patient was seen in emergency room early that morning 05/10, went home AGAINST MEDICAL ADVICE, again showed up emergency room for a second visit, was recommended for admission, for dehydration, nausea vomiting, abdominal pain. Again went home AGAINST MEDICAL ADVICE Past Medical History Past Medical History: Asthma, Heart Failure, COPD, Eye Disorder, Fibromyalgia, GERD/Reflux, Hyperlipidemia, Hypertension, Memory Impairment, Myocardial Infarction ([place]), Osteoarthritis (OA), Pneumonia, Seizure Disorder, Skin Disorder, Syncope, Thyroid Disorder Additional Past Medical History / Comment(s): IBS, colitis, restless legs flexed syndrome, daily migraines, Vitamin D deficiency, benign left breast mass, gastritis, short term memory loss. Vision - "sees an orange aura." BILAT CATARACTS Last seizure 04/15/21, PT STATES THAT DR. VILLALBA IS AWARE"Legs are weak and balance is off." FELL SAT. AND INJURED TAILBONE, checked bone marrow for cancer Last Myocardial Infarction Date:: unknown History of Any Multi-Drug Resistant Organisms: None Reported Past Surgical History: Appendectomy, Hysterectomy, Orthopedic Surgery, Uterine Ablation Additional Past Surgical History / Comment(s): D&C, bilateral knee arthroscopy. Past Anesthesia/Blood Transfusion Reactions: No Reported Reaction Past Psychological History: Anxiety, Bipolar, Depression, PTSD Additional Psychological History / Comment(s): Borderline personality disorder. Smoking Status: Current every day smoker Past Alcohol Use History: None Reported Additional Past Alcohol Use History / Comment(s): Patient is a smoker of 2 packs per day since she was 17 years of age. Past Drug Use History: Marijuana Additional Drug Use History / Comment(s): Has been using Marijuana since age 16. Currently uses once a day. Aware no use 24 hrs prior to procedure. - Past Family History Father Family Medical History: Cancer Additional Family Medical History / Comment(s): Father of pancreatic cancer at the age of 62yrs. Mother Family Medical History: Congestive Heart Failure (CHF) Additional Family Medical History / Comment(s): Mother of CHF at the age of 60yrs. Brother(s) Additional Family Medical History / Comment(s): Patient had 1 brother that at 5 months of age. Sister(s) Additional Family Medical History / Comment(s): Patient has one sister with history of depression and bipolar. Patient has 2 half-sisters and one at age 26 from overdose. Patient does not have any children. Medications and Allergies Home Medications Medication Instructions Recorded Confirmed Type EPINEPHrine (Auto Inject) [Epipen] 0.3 mg IM ONCE PRN #1 syringe 08/28/16 05/10/21 Rx Levothyroxine Sodium [Synthroid] 75 mcg PO DAILY #30 tab 08/28/16 05/10/21 Rx Albuterol Nebulized [Ventolin 2.5 mg INHALATION RT-Q4H 04/30/17 05/10/21 History Nebulized] Asenapine Maleate [Saphris] 10 mg SUBLINGUAL BID 04/30/17 05/10/21 History Sertraline [Zoloft] 250 mg PO DAILY 04/30/17 05/10/21 History Atorvastatin [Lipitor] 40 mg PO HS 05/24/17 05/10/21 History Loratadine [Claritin] 10 mg PO DAILY 05/24/17 05/10/21 History Pantoprazole Sodium [Protonix] 40 mg PO BID 01/07/19 05/10/21 History Asenapine Maleate [Saphris] 2.5 mg SUBLINGUAL DAILY PRN 04/15/21 05/10/21 History Brivaracetam [Briviact] 10 mg PO BID 04/15/21 05/10/21 History Clobazam [Sympazan] 10 mg PO BID 04/15/21 05/10/21 History Docusate [Colace] 100 mg PO DAILY PRN 04/15/21 05/10/21 History Gabapentin 800 mg PO TID 04/15/21 05/10/21 History Mometasone/Formoterol [Dulera 50 2 puff PO RT-BID 04/15/21 05/10/21 History Mcg-5 Mcg Inhaler] Propranolol [Inderal] 40 mg PO BID 04/15/21 05/10/21 History SUMAtriptan SUCCINATE [Imitrex] 100 mg PO DAILY PRN 04/15/21 05/10/21 History Topiramate [Trokendi Xr] 100 mg PO DAILY 04/15/21 05/10/21 History amLODIPine [Norvasc] 5 mg PO DAILY 04/15/21 05/10/21 History busPIRone HCl [Buspar] 20 mg PO QID 04/15/21 05/10/21 History tiZANidine [Zanaflex] 2 mg PO TID PRN 04/15/21 05/10/21 History hydrOXYzine pamoate [Vistaril] 50 mg PO TID PRN 04/16/21 05/10/21 History Albuterol Sulfate [Proair Hfa] 2 puff INHALATION RT-QID PRN 05/10/21 05/10/21 History Amitriptyline HCl [Elavil] 100 mg PO HS 05/10/21 05/10/21 History Butalb/Asprin/Caff 50-325-40Mg 1 cap PO Q8H PRN 05/10/21 05/10/21 History [Fiorinal 50-325-40 MG] Colchicine [Mitigare] 0.6 mg PO BID 05/10/21 05/10/21 History Diclofenac Potassium [Cataflam] 50 mg PO TID 05/10/21 05/10/21 History Eslicarbazepine Acetate [Aptiom] 800 mg PO DAILY 05/10/21 05/10/21 History Etodolac [Lodine] 300 mg PO DAILY 05/10/21 05/10/21 History Furosemide [Lasix] 20 mg PO DAILY 05/10/21 05/10/21 History Linaclotide [Linzess] 290 mcg PO DAILY 05/10/21 05/10/21 History Potassium Chloride ER [K-Dur 10] 10 meq PO DAILY 05/10/21 05/10/21 History Prazosin HCl [Minipress] 4 mg PO DAILY@1200 05/10/21 05/10/21 History Prazosin HCl [Minipress] 6 mg PO HS 05/10/21 05/10/21 History Tiotropium 18 Mcg/Puff [Spiriva] 1 puff INHALATION RT-DAILY 05/10/21 05/10/21 History rOPINIRole HCL [Requip] 1 mg PO BID 05/10/21 05/10/21 History rOPINIRole HCL [Requip] 2 mg PO BID 05/10/21 05/10/21 History Allergies Allergy/AdvReac Type Severity Reaction Status Date / Time bee venom protein (honey bee) Allergy Anaphylaxis Verified 05/10/21 03:55 ibuprofen [From Motrin] AdvReac Nausea & Verified 05/10/21 03:55 Vomiting & Diarrhea Physical Exam Vitals: Vital Signs Temp Pulse Pulse Resp BP BP Pulse Ox 05/11/21 08:00 92 18 05/11/21 07:00 98.1 F 92 18 110/73 98 05/11/21 01:06 97.9 F 83 16 92/55 95 05/10/21 19:01 97.9 F 77 16 97/61 96 05/10/21 16:00 90 05/10/21 15:52 88 05/10/21 15:33 97.6 F 17 95/67 05/10/21 15:00 97.6 F 18 95/67 98 05/10/21 10:21 97.6 F 70 16 101/58 99 Intake and Output 05/10/21 05/11/21 05/11/21 22:59 06:59 14:59 Intake Total 300 Balance 300 Intake: Oral 300 Other: Voiding Method Toilet # Voids 1 2 Weight 48.988 kg Results CBC & Chem 7: 05/10/21 11:28 05/10/21 11:28 Labs: Abnormal Lab Results - Last 24 Hours (Table) 05/10/21 05/10/21 05/10/21 Range/Units 11:28 11:28 13:52 RBC 3.20 L (3.80-5.40) m/uL Hgb 11.0 L (11.4-16.0) gm/dL Hct 32.8 L (34.0-46.0) % MCV 102.6 H (80.0-100.0) fL Plt Count 527 H (150-450) k/uL Sodium 132 L (137-145) mmol/L Carbon Dioxide 19 L (22-30) mmol/L Magnesium 1.4 L (1.6-2.3) mg/dL Total Protein 5.7 L (6.3-8.2) g/dL Albumin 3.0 L (3.5-5.0) g/dL Urine Nitrite Positive H (Negative) Ur Leukocyte Esterase Small H (Negative) Urine WBC 15 H (0-5) /hpf Urine Bacteria Rare H (None) /hpf Microbiology - Last 24 Hours (Table) 05/10/21 13:52 Urine Culture - Preliminary Urine,Voided Thrombosis Risk Factor Assmnt - Choose All That Apply Each Factor Represents 1 point: Age 41-60 years Other Risk Factors: Yes Thrombosis Risk Factor Assessment Total Risk Factor Score: 1 Thrombosis Risk Factor Assessment Level: Low Risk
== END 2021-05-11 12:57 | disposition left against medical advice (07) ==
LOC: EC 10:13 → 6NMEDSUR 13:16 → INTOOBSV 05-11 09:27 → OBSVTOIN 05-11 09:27 → UNDODISIN 05-11 12:57
PROVIDERS: ADMIT Family Medicine; ATTEND Family Medicine
DX: E86.0 Dehydration (principal); E87.1 Hypo-osmolality and hyponatremia; K58.0 Irritable bowel syndrome with diarrhea; E55.9 Vitamin D deficiency, unspecified; K64.9 Unspecified hemorrhoids; M79.7 Fibromyalgia; I25.2 Old myocardial infarction; I11.0 Hypertensive heart disease with heart failure; I50.9 Heart failure, unspecified; G40.909 Epilepsy, unspecified, not intractable, without status epilepticus; G43.909 Migraine, unspecified, not intractable, without status migrainosus; G25.81 Restless legs syndrome; E78.5 Hyperlipidemia, unspecified; M19.90 Unspecified osteoarthritis, unspecified site; K21.9 Gastro-esophageal reflux disease without esophagitis; J44.9 Chronic obstructive pulmonary disease, unspecified; N63.20 Unspecified lump in the left breast, unspecified quadrant; F17.210 Nicotine dependence, cigarettes, uncomplicated; F31.9 Bipolar disorder, unspecified; F43.10 Post-traumatic stress disorder, unspecified; F41.9 Anxiety disorder, unspecified; R41.3 Other amnesia; H26.9 Unspecified cataract; Z53.29 Procedure and treatment not carried out because of patient's decision for other reasons; K29.70 Gastritis, unspecified, without bleeding; F60.3 Borderline personality disorder; Z79.890 Hormone replacement therapy; Z79.51 Long term (current) use of inhaled steroids; Z79.899 Other long term (current) drug therapy; Z88.6 Allergy status to analgesic agent; Z91.030 Bee allergy status; Z90.49 Acquired absence of other specified parts of digestive tract; Z98.890 Other specified postprocedural states; Z90.710 Acquired absence of both cervix and uterus; Z80.0 Family history of malignant neoplasm of digestive organs; Z82.49 Family history of ischemic heart disease and other diseases of the circulatory system; Z81.8 Family history of other mental and behavioral disorders
CPT/HCPCS: 96376; 96365; 96366; 96375 ×2; 99285; 36415; 94640 ×2; 80053; 83735 ×2; 85025; 81001; 87086; 87077; 87186; G0378 ×2; S4990; J2270; J3475; C9113 ×2; 96360

== ENCOUNTER 2021-05-23 10:44 | Emergency (ER) | payer OTHER ==
[2021-05-23 10:49] VITALS: BP 96/63; PULSE 94; RESP 18; TEMP 97.9
--- NOTE | 2021-05-23 11:53 | ED ---
General Adult HPI - General Chief complaint: Urogenital Stated complaint: Hemorrhoid Time Seen by Provider: 05/23/21 11:05 Source: patient, RN notes reviewed Mode of arrival: wheelchair Limitations: no limitations - History of Present Illness Initial comments: 51-year-old female presents to the emergency room for a chief complaint of rectal problem. Patient states she has had something painful near the rectum for about 3 days now. States it is starting to drain somewhat. Patient states she is not sure what it is with thinks it is a hemorrhoid. States it is painful.Patient has no other complaints at this time including shortness of breath, chest pain, abdominal pain, nausea or vomiting, headache, or visual changes. - Related Data Home Medications Medication Instructions Recorded Confirmed Albuterol Nebulized [Ventolin 2.5 mg INHALATION RT-Q4H 04/30/17 05/10/21 Nebulized] Asenapine Maleate [Saphris] 10 mg SUBLINGUAL BID 04/30/17 05/10/21 Sertraline [Zoloft] 250 mg PO DAILY 04/30/17 05/10/21 Atorvastatin [Lipitor] 40 mg PO HS 05/24/17 05/10/21 Loratadine [Claritin] 10 mg PO DAILY 05/24/17 05/10/21 Pantoprazole Sodium [Protonix] 40 mg PO BID 01/07/19 05/10/21 Asenapine Maleate [Saphris] 2.5 mg SUBLINGUAL DAILY PRN 04/15/21 05/10/21 Brivaracetam [Briviact] 10 mg PO BID 04/15/21 05/10/21 Clobazam [Sympazan] 10 mg PO BID 04/15/21 05/10/21 Docusate [Colace] 100 mg PO DAILY PRN 04/15/21 05/10/21 Gabapentin 800 mg PO TID 04/15/21 05/10/21 Mometasone/Formoterol [Dulera 50 2 puff PO RT-BID 04/15/21 05/10/21 Mcg-5 Mcg Inhaler] Propranolol [Inderal] 40 mg PO BID 04/15/21 05/10/21 SUMAtriptan SUCCINATE [Imitrex] 100 mg PO DAILY PRN 04/15/21 05/10/21 Topiramate [Trokendi Xr] 100 mg PO DAILY 04/15/21 05/10/21 amLODIPine [Norvasc] 5 mg PO DAILY 04/15/21 05/10/21 busPIRone HCl [Buspar] 20 mg PO QID 04/15/21 05/10/21 tiZANidine [Zanaflex] 2 mg PO TID PRN 04/15/21 05/10/21 hydrOXYzine pamoate [Vistaril] 50 mg PO TID PRN 04/16/21 05/10/21 Albuterol Sulfate [Proair Hfa] 2 puff INHALATION RT-QID PRN 05/10/21 05/10/21 Amitriptyline HCl [Elavil] 100 mg PO HS 05/10/21 05/10/21 Butalb/Asprin/Caff 50-325-40Mg 1 cap PO Q8H PRN 05/10/21 05/10/21 [Fiorinal 50-325-40 MG] Colchicine [Mitigare] 0.6 mg PO BID 05/10/21 05/10/21 Diclofenac Potassium [Cataflam] 50 mg PO TID 05/10/21 05/10/21 Eslicarbazepine Acetate [Aptiom] 800 mg PO DAILY 05/10/21 05/10/21 Etodolac [Lodine] 300 mg PO DAILY 05/10/21 05/10/21 Furosemide [Lasix] 20 mg PO DAILY 05/10/21 05/10/21 Linaclotide [Linzess] 290 mcg PO DAILY 05/10/21 05/10/21 Potassium Chloride ER [K-Dur 10] 10 meq PO DAILY 05/10/21 05/10/21 Prazosin HCl [Minipress] 4 mg PO DAILY@1200 05/10/21 05/10/21 Prazosin HCl [Minipress] 6 mg PO HS 05/10/21 05/10/21 Tiotropium 18 Mcg/Puff [Spiriva] 1 puff INHALATION RT-DAILY 05/10/21 05/10/21 rOPINIRole HCL [Requip] 1 mg PO BID 05/10/21 05/10/21 rOPINIRole HCL [Requip] 2 mg PO BID 05/10/21 05/10/21 Previous Rx's Medication Instructions Recorded EPINEPHrine (Auto Inject) [Epipen] 0.3 mg IM ONCE PRN #1 syringe 08/28/16 Levothyroxine Sodium [Synthroid] 75 mcg PO DAILY #30 tab 08/28/16 Docusate Sodium [Dok] 100 mg PO BID PRN #20 cap 05/23/21 Allergies Allergy/AdvReac Type Severity Reaction Status Date / Time bee venom protein (honey bee) Allergy Anaphylaxis Verified 05/23/21 10:48 ibuprofen [From Motrin] AdvReac Nausea & Verified 05/23/21 10:48 Vomiting & Diarrhea Review of Systems ROS Statement: Those systems with pertinent positive or pertinent negative responses have been documented in the HPI. ROS Other: All systems not noted in ROS Statement are negative. Past Medical History Past Medical History: Asthma, Heart Failure, COPD, Eye Disorder, Fibromyalgia, GERD/Reflux, Hyperlipidemia, Hypertension, Memory Impairment, Myocardial Infarction ([place]), Osteoarthritis (OA), Pneumonia, Seizure Disorder, Skin Disorder, Syncope, Thyroid Disorder Additional Past Medical History / Comment(s): IBS, colitis, restless legs flexed syndrome, daily migraines, Vitamin D deficiency, benign left breast mass, gastritis, short term memory loss. Vision - "sees an orange aura." BILAT CATARACTS Last seizure 04/15/21, PT STATES THAT DR. VILLALBA IS AWARE"Legs are weak and balance is off." FELL SAT. AND INJURED TAILBONE, checked bone marrow for cancer Last Myocardial Infarction Date:: unknown History of Any Multi-Drug Resistant Organisms: None Reported Past Surgical History: Appendectomy, Hysterectomy, Orthopedic Surgery, Uterine Ablation Additional Past Surgical History / Comment(s): D&C, bilateral knee arthroscopy. Past Anesthesia/Blood Transfusion Reactions: No Reported Reaction Past Psychological History: Anxiety, Bipolar, Depression, PTSD Smoking Status: Current every day smoker Past Alcohol Use History: None Reported Past Drug Use History: Marijuana - Past Family History Father Family Medical History: Cancer Additional Family Medical History / Comment(s): Father of pancreatic cancer at the age of 62yrs. Mother Family Medical History: Congestive Heart Failure (CHF) Additional Family Medical History / Comment(s): Mother of CHF at the age of 60yrs. Brother(s) Additional Family Medical History / Comment(s): Patient had 1 brother that at 5 months of age. Sister(s) Additional Family Medical History / Comment(s): Patient has one sister with history of depression and bipolar. Patient has 2 half-sisters and one at age 26 from overdose. Patient does not have any children. General Exam Limitations: no limitations General appearance: alert, in no apparent distress Head exam: Present: atraumatic Eye exam: Present: normal appearance, PERRL, EOMI. Absent: scleral icterus, conjunctival injection ENT exam: Present: normal exam, mucous membranes moist Neck exam: Present: normal inspection, full ROM. Absent: tenderness Respiratory exam: Present: normal lung sounds bilaterally. Absent: respiratory distress, wheezes Cardiovascular Exam: Present: regular rate, normal rhythm, normal heart sounds Rectal exam: Present: other (Rectal prolapse noted) Course Vital Signs 05/23/21 10:45 Temperature 97.9 F Pulse Rate 94 Respiratory 18 Rate Blood Pressure 96/63 O2 Sat by Pulse 95 Oximetry Medical Decision Making - Medical Decision Making Physical exam was performed and patient has a rectal prolapse. Direct pressure was applied and this was reduced easily without much pain. At this time patient can be discharged home. She was written for stool softeners. She can follow up with primary care or general surgery. She'll return here for any worsening symptoms. Disposition Clinical Impression: Rectal prolapse Disposition: HOME SELF-CARE Condition: Good Instructions (If sedation given, give patient instructions): Rectal Prolapse (ED) Additional Instructions: If prolapse occurs again apply direct pressure. If you cannot get it reduced come to the emergency room. Otherwise follow-up with primary care or general surgery Prescriptions: Docusate Sodium [Dok] 100 mg PO BID PRN #20 cap PRN Reason: Constipation Is patient prescribed a controlled substance at d/c from ED?: No Referrals: Harpreet Ballard MD [Primary Care Provider] - 1-2 days Adonay Agee MD [Medical Doctor] - 1-2 days Time of Disposition: 11:51
== END 2021-05-23 11:59 | disposition home or self-care (01) ==
LOC: EC 10:44
DX: K62.3 Rectal prolapse (principal); Z88.6 Allergy status to analgesic agent; I11.0 Hypertensive heart disease with heart failure; I50.9 Heart failure, unspecified; K21.9 Gastro-esophageal reflux disease without esophagitis; E78.5 Hyperlipidemia, unspecified; I25.2 Old myocardial infarction; J45.909 Unspecified asthma, uncomplicated; M19.90 Unspecified osteoarthritis, unspecified site; E07.9 Disorder of thyroid, unspecified; F41.9 Anxiety disorder, unspecified; F31.9 Bipolar disorder, unspecified; F43.12 Post-traumatic stress disorder, chronic; F17.200 Nicotine dependence, unspecified, uncomplicated; F12.90 Cannabis use, unspecified, uncomplicated; Z90.49 Acquired absence of other specified parts of digestive tract; Z90.710 Acquired absence of both cervix and uterus; Z87.19 Personal history of other diseases of the digestive system; Z79.899 Other long term (current) drug therapy; Z79.51 Long term (current) use of inhaled steroids
CPT/HCPCS: 99283

== ENCOUNTER 2021-05-23 22:48 | Observation (INO) | payer OTHER ==
[2021-05-23] MEDS ORDERED: SODIUM CHLORIDE 0.9% 1,000 ML IV STA (22:59)
--- NOTE | 2021-05-23 23:26 | ED ---
Abdominal Pain HPI - General Chief Complaint: Abdominal Pain Stated Complaint: Rectal Bleeding Time Seen by Provider: 05/23/21 22:54 Source: patient, RN notes reviewed, old records reviewed Mode of arrival: wheelchair Limitations: no limitations - History of Present Illness Initial Comments: This is a 51-year-old female to the emergency room today. Today she presents for evaluation regards to multiple complaints. Severe anxiety abdominal pain nausea no vomiting. All the symptoms began just prior to arrival. Patient is no other complaints. Patient was seen in emergency from earlier for rectal prolapse was reduced successfully. Patient herself has noticed symptoms of rectal prolapse significantly more frequently as of late. Otherwise no fevers no cough no congestion of travel history. MD Complaint: abdominal pain, other (Rectal pain and prolapse) -: hour(s) Location: suprapubic Radiation: suprapubic Migration to: other (Rectal pain) Severity: moderate Severity scale (1-10): 6 Quality: sharp Consistency: intermittent Improves With: nothing Worsens With: nothing Associated Symptoms: nausea, constipation Treatments Prior to Arrival: prescription analgesics - Related Data Home Medications Medication Instructions Recorded Confirmed Albuterol Nebulized [Ventolin 2.5 mg INHALATION RT-Q4H 04/30/17 05/24/21 Nebulized] Asenapine Maleate [Saphris] 10 mg SUBLINGUAL BID 04/30/17 05/24/21 Sertraline [Zoloft] 250 mg PO DAILY 04/30/17 05/24/21 Atorvastatin [Lipitor] 40 mg PO HS 05/24/17 05/24/21 Loratadine [Claritin] 10 mg PO DAILY 05/24/17 05/24/21 Pantoprazole Sodium [Protonix] 40 mg PO BID 01/07/19 05/24/21 Asenapine Maleate [Saphris] 2.5 mg SUBLINGUAL DAILY PRN 04/15/21 05/24/21 Brivaracetam [Briviact] 10 mg PO BID 04/15/21 05/24/21 Clobazam [Sympazan] 10 mg PO BID 04/15/21 05/24/21 Docusate [Colace] 100 mg PO HS 04/15/21 05/24/21 Gabapentin 800 mg PO TID 04/15/21 05/24/21 Propranolol [Inderal] 40 mg PO BID 04/15/21 05/24/21 SUMAtriptan SUCCINATE [Imitrex] 100 mg PO DAILY PRN 04/15/21 05/24/21 Topiramate [Trokendi Xr] 100 mg PO DAILY 04/15/21 05/24/21 amLODIPine [Norvasc] 5 mg PO DAILY 04/15/21 05/24/21 busPIRone HCl [Buspar] 20 mg PO QID 04/15/21 05/24/21 tiZANidine [Zanaflex] 2 mg PO TID PRN 04/15/21 05/24/21 hydrOXYzine pamoate [Vistaril] 50 mg PO TID PRN 04/16/21 05/24/21 Albuterol Sulfate [Proair Hfa] 2 puff INHALATION RT-QID PRN 05/10/21 05/24/21 Amitriptyline HCl [Elavil] 100 mg PO HS 05/10/21 05/24/21 Butalb/Asprin/Caff 50-325-40Mg 1 cap PO Q8H PRN 05/10/21 05/24/21 [Fiorinal 50-325-40 MG] Colchicine [Mitigare] 0.6 mg PO BID 05/10/21 05/24/21 Diclofenac Potassium [Cataflam] 50 mg PO TID 05/10/21 05/24/21 Eslicarbazepine Acetate [Aptiom] 800 mg PO DAILY 05/10/21 05/24/21 Etodolac [Lodine] 300 mg PO DAILY 05/10/21 05/24/21 Furosemide [Lasix] 20 mg PO DAILY 05/10/21 05/24/21 Linaclotide [Linzess] 290 mcg PO DAILY 05/10/21 05/24/21 Potassium Chloride ER [K-Dur 10] 10 meq PO DAILY 05/10/21 05/24/21 Prazosin HCl [Minipress] 4 mg PO DAILY@1700 05/10/21 05/24/21 Prazosin HCl [Minipress] 6 mg PO HS 05/10/21 05/24/21 Tiotropium 18 Mcg/Puff [Spiriva] 1 puff INHALATION RT-DAILY 05/10/21 05/24/21 rOPINIRole HCL [Requip] 1 mg PO BID 05/10/21 05/24/21 rOPINIRole HCL [Requip] 2 mg PO BID 05/10/21 05/24/21 Mometasone/Formoterol [Dulera 200 2 puff INHALATION RT-BID 05/24/21 05/24/21 Mcg-5 Mcg Inhaler] predniSONE See Taper PO DAILY 05/24/21 05/24/21 Previous Rx's Medication Instructions Recorded EPINEPHrine (Auto Inject) [Epipen] 0.3 mg IM ONCE PRN #1 syringe 08/28/16 Levothyroxine Sodium [Synthroid] 75 mcg PO DAILY #30 tab 08/28/16 Docusate Sodium [Dok] 100 mg PO BID PRN #20 cap 05/23/21 Allergies Allergy/AdvReac Type Severity Reaction Status Date / Time bee venom protein (honey bee) Allergy Anaphylaxis Verified 05/24/21 00:00 ibuprofen [From Motrin] AdvReac Nausea & Verified 05/24/21 00:00 Vomiting & Diarrhea Review of Systems ROS Statement: Those systems with pertinent positive or pertinent negative responses have been documented in the HPI. ROS Other: All systems not noted in ROS Statement are negative. Past Medical History Past Medical History: Asthma, Heart Failure, COPD, Eye Disorder, Fibromyalgia, GERD/Reflux, Hyperlipidemia, Hypertension, Memory Impairment, Myocardial Infarction (HI), Osteoarthritis (OA), Pneumonia, Seizure Disorder, Skin Diso rder, Syncope, Thyroid Disorder Additional Past Medical History / Comment(s): IBS, colitis, restless legs flexed syndrome, daily migraines, Vitamin D deficiency, benign left breast mass, gastritis, short term memory loss. Vision - "sees an orange aura." BILAT CATARACTS Last seizure 04/15/21, PT STATES THAT DR. VILLALBA IS AWARE"Legs are weak and balance is off." FELL SAT. AND INJURED TAILBONE, checked bone marrow for cancer Last Myocardial Infarction Date:: unknown History of Any Multi-Drug Resistant Organisms: None Reported Past Surgical History: Appendectomy, Hysterectomy, Orthopedic Surgery, Uterine Ablation Additional Past Surgical History / Comment(s): D&C, bilateral knee arthroscopy. Past Anesthesia/Blood Transfusion Reactions: No Reported Reaction Past Psychological History: Anxiety, Bipolar, Depression, PTSD Smoking Status: Current every day smoker Past Alcohol Use History: None Reported Past Drug Use History: Marijuana - Past Family History Father Family Medical History: Cancer Additional Family Medical History / Comment(s): Father of pancreatic cancer at the age of 62yrs. Mother Family Medical History: Congestive Heart Failure (CHF) Additional Family Medical History / Comment(s): Mother of CHF at the age of 60yrs. Brother(s) Additional Family Medical History / Comment(s): Patient had 1 brother that at 5 months of age. Sister(s) Additional Family Medical History / Comment(s): Patient has one sister with hist ory of depression and bipolar. Patient has 2 half-sisters and one at age 26 from overdose. Patient does not have any children. General Exam Limitations: no limitations General appearance: alert, in no apparent distress, anxious Head exam: Present: atraumatic, normocephalic, normal inspection Eye exam: Present: normal appearance, PERRL, EOMI. Absent: scleral icterus, conjunctival injection, periorbital swelling ENT exam: Present: normal exam, mucous membranes moist Neck exam: Present: normal inspection. Absent: tenderness, meningismus, lymphadenopathy Respiratory exam: Present: normal lung sounds bilaterally. Absent: respiratory distress, wheezes, rales, rhonchi, stridor Cardiovascular Exam: Present: regular rate, normal rhythm, normal heart sounds. Absent: systolic murmur, diastolic murmur, rubs, gallop, clicks GI/Abdominal exam: Present: soft, normal bowel sounds. Absent: distended, tenderness, guarding, rebound, rigid Extremities exam: Present: normal inspection, full ROM, normal capillary refill. Absent: tenderness, pedal edema, joint swelling, calf tenderness Back exam: Present: normal inspection Neurological exam: Present: alert, oriented X3, CN II-XII intact Psychiatric exam: Present: normal affect, normal mood Skin exam: Present: warm, dry, intact, normal color. Absent: rash Course Vital Signs 05/23/21 05/24/21 22:49 00:47 Temperature 98.3 F Pulse Rate 102 H 102 H Respiratory 16 16 Rate Blood Pressure 110/70 107/64 O2 Sat by Pulse 98 98 Oximetry - Reevaluation(s) Reevaluation #1: Medical record is reviewed Patient symptoms are not improved here in the emergency department Patient informed of results and questions answered Patient is in no acute distress Reevaluation #2: Patient understands need for admission and surgical consultation Medical Decision Making - Medical Decision Making 51 female to the emergency department for evaluation with recurrent rectal prolapse abdominal pain and ileus on computed tomography scan. Patient has significant anxiety nausea vomiting here in the emergency room with significant pain. Patient be admitted for evaluation monitoring and surgical evaluation - Lab Data Result diagrams: 05/25/21 06:41 05/25/21 06:41 Lab Results 05/23/21 05/23/21 05/23/21 Range/Units 23:23 23:23 23:23 WBC 21.6 H (3.8-10.6) k/uL RBC 3.35 L (3.80-5.40) m/uL Hgb 11.4 (11.4-16.0) gm/dL Hct 34.1 (34.0-46.0) % MCV 101.9 H (80.0-100.0) fL MCH 34.0 (25.0-35.0) pg MCHC 33.4 (31.0-37.0) g/dL RDW 14.8 (11.5-15.5) % Plt Count 664 H (150-450) k/uL MPV 7.0 Neutrophils % 79 % Lymphocytes % 13 % Monocytes % 6 % Eosinophils % 1 % Basophils % 0 % Neutrophils # 17.1 H (1.3-7.7) k/uL Lymphocytes # 2.8 (1.0-4.8) k/uL Monocytes # 1.2 H (0-1.0) k/uL Eosinophils # 0.2 (0-0.7) k/uL Basophils # 0.1 (0-0.2) k/uL Macrocytosis Slight PT 9.5 (9.0-12.0) sec INR 0.9 (<1.2) APTT 24.1 (22.0-30.0) sec Sodium 135 L (137-145) mmol/L Potassium 3.9 (3.5-5.1) mmol/L Chloride 107 (98-107) mmol/L Carbon Dioxide 18 L (22-30) mmol/L Anion Gap 10 mmol/L BUN 27 H (7-17) mg/dL Creatinine 1.05 H (0.52-1.04) mg/dL Est GFR (CKD-EPI)AfAm 72 (>60 ml/min/1.73 sqM) Est GFR (CKD-EPI)NonAf 63 (>60 ml/min/1.73 sqM) Glucose 99 (74-99) mg/dL Plasma Lactic Acid Memo (0.7-2.0) mmol/L Calcium 8.7 (8.4-10.2) mg/dL Phosphorus 4.5 (2.5-4.5) mg/dL Magnesium 0.8 L* (1.6-2.3) mg/dL Total Bilirubin 0.5 (0.2-1.3) mg/dL AST 18 (14-36) U/L ALT 13 (4-34) U/L Alkaline Phosphatase 110 (38-126) U/L Troponin I (0.000-0.034) ng/mL Total Protein 5.8 L (6.3-8.2) g/dL Albumin 2.9 L (3.5-5.0) g/dL Blood Type Blood Type Confirm Blood Type Recheck Bld Type Recheck Status Antibody Screen Spec Expiration Date 05/23/21 05/23/21 05/23/21 Range/Units 23:23 23:23 23:23 WBC (3.8-10.6) k/uL RBC (3.80-5.40) m/uL Hgb (11.4-16.0) gm/dL Hct (34.0-46.0) % MCV (80.0-100.0) fL MCH (25.0-35.0) pg MCHC (31.0-37.0) g/dL RDW (11.5-15.5) % Plt Count (150-450) k/uL MPV Neutrophils % % Lymphocytes % % Monocytes % % Eosinophils % % Basophils % % Neutrophils # (1.3-7.7) k/uL Lymphocytes # (1.0-4.8) k/uL Monocytes # (0-1.0) k/uL Eosinophils # (0-0.7) k/uL Basophils # (0-0.2) k/uL Macrocytosis PT (9.0-12.0) sec INR (<1.2) APTT (22.0-30.0) sec Sodium (137-145) mmol/L Potassium (3.5-5.1) mmol/L Chloride (98-107) mmol/L Carbon Dioxide (22-30) mmol/L Anion Gap mmol/L BUN (7-17) mg/dL Creatinine (0.52-1.04) mg/dL Est GFR (CKD-EPI)AfAm (>60 ml/min/1.73 sqM) Est GFR (CKD-EPI)NonAf (>60 ml/min/1.73 sqM) Glucose (74-99) mg/dL Plasma Lactic Acid Memo 1.1 (0.7-2.0) mmol/L Calcium (8.4-10.2) mg/dL Phosphorus (2.5-4.5) mg/dL Magnesium (1.6-2.3) mg/dL Total Bilirubin (0.2-1.3) mg/dL AST (14-36) U/L ALT (4-34) U/L Alkaline Phosphatase (38-126) U/L Troponin I <0.012 (0.000-0.034) ng/mL Total Protein (6.3-8.2) g/dL Albumin (3.5-5.0) g/dL Blood Type A Positive Blood Type Confirm Blood Type Recheck No Previous Record Bld Type Recheck Status CABO Indicated Antibody Screen NEGATIVE Spec Expiration Date 05/26/2021 - 232205/23/21 Range/Units 23:25 WBC (3.8-10.6) k/uL RBC (3.80-5.40) m/uL Hgb (11.4-16.0) gm/dL Hct (34.0-46.0) % MCV (80.0-100.0) fL MCH (25.0-35.0) pg MCHC (31.0-37.0) g/dL RDW (11.5-15.5) % Plt Count (150-450) k/uL MPV Neutrophils % % Lymphocytes % % Monocytes % % Eosinophils % % Basophils % % Neutrophils # (1.3-7.7) k/uL Lymphocytes # (1.0-4.8) k/uL Monocytes # (0-1.0) k/uL Eosinophils # (0-0.7) k/uL Basophils # (0-0.2) k/uL Macrocytosis PT (9.0-12.0) sec INR (<1.2) APTT (22.0-30.0) sec Sodium (137-145) mmol/L Potassium (3.5-5.1) mmol/L Chloride (98-107) mmol/L Carbon Dioxide (22-30) mmol/L Anion Gap mmol/L BUN (7-17) mg/dL Creatinine (0.52-1.04) mg/dL Est GFR (CKD-EPI)AfAm (>60 ml/min/1.73 sqM) Est GFR (CKD-EPI)NonAf (>60 ml/min/1.73 sqM) Glucose (74-99) mg/dL Plasma Lactic Acid Memo (0.7-2.0) mmol/L Calcium (8.4-10.2) mg/dL Phosphorus (2.5-4.5) mg/dL Magnesium (1.6-2.3) mg/dL Total Bilirubin (0.2-1.3) mg/dL AST (14-36) U/L ALT (4-34) U/L Alkaline Phosphatase (38-126) U/L Troponin I (0.000-0.034) ng/mL Total Protein (6.3-8.2) g/dL Albumin (3.5-5.0) g/dL Blood Type Blood Type Confirm A Positive Blood Type Recheck Bld Type Recheck Status Antibody Screen Spec Expiration Date - EKG Data -: EKG Interpreted by Me (EKG shows sinus rhythm of 99 MI 148 QRS 84 QTc 438) - Radiology Data Radiology results: report reviewed (CT of the abdomen and pelvis shows significant ileus and small bowel dilation), image reviewed Disposition Clinical Impression: Acute anxiety, Rectal prolapse, Abdominal pain, Dehydration, Ileus, Colitis Disposition: ADMITTED IP TO THIS HOSP Condition: Fair Is patient prescribed a controlled substance at d/c from ED?: No
[2021-05-23 23:37] LABS: Basophils # (A) 0.1 k/uL (0-0.2); Basophils % (A) 0 %; Eosinophils # (A) 0.2 k/uL (0-0.7); Eosinophils % (A) 1 %; HCT 34.1 % (34.0-46.0); HGB 11.4 gm/dL (11.4-16.0); Lymphocytes # (A) 2.8 k/uL (1.0-4.8); Lymphocytes % (A) 13 %; MCHC 33.4 g/dL (31.0-37.0); MCV 101.9 fL (80.0-100.0); Macrocytosis Slight; Monocytes # (A) 1.2 k/uL (0-1.0); Monocytes % (A) 6 %; Neutrophils # (A) 17.1 k/uL (1.3-7.7); Neutrophils % (A) 79 %; Platelet Count 664 k/uL (150-450); RBC 3.35 m/uL (3.80-5.40); RDW 14.8 % (11.5-15.5); WBC 21.6 k/uL (3.8-10.6)
[2021-05-23] MEDS ORDERED: MORPHINE SULFATE 4 MG/ML SYRINGE IV PRN (23:42)
[2021-05-23] MEDS ORDERED: NALOXONE 0.4 MG/ML 1 ML VIAL IV PRN (23:42)
[2021-05-23 23:46] LABS: INR 0.9 (<1.2); Partial Thromboplastin Time 24.1 sec (22.0-30.0); Prothrombin Time 9.5 sec (9.0-12.0)
[2021-05-23 23:47] LABS: Albumin 2.9 g/dL (3.5-5.0); Calcium 8.7 mg/dL (8.4-10.2); Phosphorus 4.5 mg/dL (2.5-4.5); Potassium 3.9 mmol/L (3.5-5.1); Total Bilirubin 0.5 mg/dL (0.2-1.3); Total Protein 5.8 g/dL (6.3-8.2)
[2021-05-23 23:59] LABS: Magnesium 0.8 mg/dL (1.6-2.3)
[2021-05-24] MEDS ORDERED: LORazepam 2 MG/ML INJ IV STA (00:04)
[2021-05-24] MEDS ORDERED: LORazepam 2 MG/ML INJ IV PRN (00:04)
[2021-05-24] MEDS ORDERED: MORPHINE SULFATE 4 MG/ML SYRINGE IVP STA (00:05)
[2021-05-24] MEDS: SODIUM CHLORIDE 0.9% 1,000 ML IV SCH ×4 (00:46→22:50)
[2021-05-24] MEDS: MAGNESIUM SULFATE-D5W PMX 1 GM in DEXTROSE/WATER 1 100ML.BAG IVPB SCH ×3 (00:55→04:25)
--- NOTE | 2021-05-24 01:04 | CT ---
EXAMINATION TYPE: CT abdomen pelvis w con DATE OF EXAM: 05/24/2021 COMPARISON: 05/10/2021 HISTORY: pain CT DLP: 578.7 mGycm Automated exposure control for dose reduction was used. CONTRAST: Performed with IV Contrast, patient injected with 100 mL of Isovue 300. Images obtained from the diaphragm to the floor the pelvis with IV contrast. There is pericardial effusion. Fluid measures up to 12 mm in thickness. Heart size is normal. The armani g bases are clear of consolidation. There is no pleural effusion. Liver spleen stomach pancreas gallbladder appear intact. Bile ducts are not dilated. There is no adrenal mass. Kidneys show satisfactory contrast opacification. There is no hydronephrosi s. There are multiple nonobstructing small right renal calculi measuring up to almost 3 mm. Ureters a re not dilated. There is no retroperitoneal adenopathy. Bladder distends smoothly. There is no inguin al hernia. There is retained fecal material and fluid in the large bowel down to the rectum. There is mild distention of the large bowel. Appendix is not definitely seen. There is no sign of thickened a ppendix. There is no free fluid in the pelvis. There is no evidence of a pelvic mass. There is hysterectomy. There is no mesenteric edema. There is no ascites or free air. There is no evidence of a bowel obstru ction. The lumbar vertebra have normal alignment. There is 15-20% anterior wedging of L1 vertebra unc hanged. Posterior elements are intact. Bony pelvis is intact. The hip joints are intact. IMPRESSION: There is distended large bowel with fluid suggestive of ileus and diarrhea. No free air. Appendix not seen. No sign of thickened appendix. Nonobstructing right renal calculi. Wall thickening of the right colon is improved compared to old exam. Large bowel distention is increased compared to last exam. There is pericardial effusion unchanged.
[2021-05-24] MEDS ORDERED: AMPICILLIN-SULBACTAM 3 GM in SODIUM CHLORIDE 0.9% 100 ML IVPB STA (01:19)
[2021-05-24] MEDS: MORPHINE SULFATE 4 MG/ML SYRINGE IVP PRN ×4 (05:27→17:07)
[2021-05-24 06:33] LABS: ALT 12 U/L (4-34); AST 27 U/L (14-36); African American GFR (CKD) >90 (>60 ml/min/1.73 sqM); Albumin 2.7 g/dL (3.5-5.0); Alkaline Phosphatase 96 U/L (38-126); Anion Gap 8 mmol/L; Blood Urea Nitrogen 26 mg/dL (7-17); Calcium 8.3 mg/dL (8.4-10.2); Carbon Dioxide 18 mmol/L (22-30); Chloride 108 mmol/L (98-107); Glucose 88 mg/dL (74-99); Magnesium 2.5 mg/dL (1.6-2.3); Non-African American GFR(CKD) 84 (>60 ml/min/1.73 sqM); Phosphorus 4.1 mg/dL (2.5-4.5); Sodium 134 mmol/L (137-145); Total Bilirubin 0.6 mg/dL (0.2-1.3); Total Protein 5.6 g/dL (6.3-8.2)
[2021-05-24 06:51] LABS: Basophils % (A) 0 %; Eosinophils # (A) 0.3 k/uL (0-0.7); Eosinophils % (A) 2 %; HCT 33.2 % (34.0-46.0); HGB 11.1 gm/dL (11.4-16.0); Lymphocytes # (A) 2.4 k/uL (1.0-4.8); Lymphocytes % (A) 13 %; MCH 34.2 pg (25.0-35.0); MCHC 33.6 g/dL (31.0-37.0); MCV 101.8 fL (80.0-100.0); Macrocytosis Slight; Mean Platelet Volume 7.5; Monocytes # (A) 0.9 k/uL (0-1.0); Monocytes % (A) 4 %; Neutrophils # (A) 15.6 k/uL (1.3-7.7); Neutrophils % (A) 81 %; Platelet Count 551 k/uL (150-450); RBC 3.26 m/uL (3.80-5.40); WBC 19.4 k/uL (3.8-10.6)
[2021-05-24] MEDS ORDERED: FUROSEMIDE 10 MG/ML 2 ML VIAL IV ONE (07:11)
[2021-05-24 08:10] LABS: Basophils # (A) 0.1 k/uL (0-0.2); Basophils % (A) 0 %; Eosinophils # (A) 0.3 k/uL (0-0.7); Eosinophils % (A) 2 %; HCT 33.5 % (34.0-46.0); Lymphocytes # (A) 1.8 k/uL (1.0-4.8); Lymphocytes % (A) 9 %; MCH 33.4 pg (25.0-35.0); MCHC 32.7 g/dL (31.0-37.0); MCV 102.1 fL (80.0-100.0); Macrocytosis Slight; Mean Platelet Volume 6.9; Monocytes # (A) 0.7 k/uL (0-1.0); Monocytes % (A) 4 %; Neutrophils # (A) 16.4 k/uL (1.3-7.7); Neutrophils % (A) 84 %; Platelet Count 687 k/uL (150-450); RBC 3.28 m/uL (3.80-5.40); RDW 15.6 % (11.5-15.5); WBC 19.6 k/uL (3.8-10.6)
--- NOTE | 2021-05-24 08:13 | XR ---
EXAMINATION TYPE: XR chest 1V portable DATE OF EXAM: 05/24/2021 COMPARISON: Chest x-ray 04/30/[address] 05/24/2021 HISTORY: Shortness of breath, chest tightness TECHNIQUE: Single frontal view of the chest is obtained. FINDINGS: There is no focal air space opacity, pleural effusion, or pneumothorax seen. The cardiac silhouette size is at slightly enlarged, there is a pericardial effusion. Patient is rotated. Scatter ed interstitial changes are present within the lungs. The osseous structures are intact. IMPRESSION: Borderline enlarged cardiac silhouette, patient with known pericardial effusion, questio n some scarring or interstitial changes in the mid lungs.
[2021-05-24] MEDS: PROPRANOLOL 40 MG TAB PO SCH ×2 (08:20→21:26)
[2021-05-24 08:23] LABS: ALT 12 U/L (4-34); AST 20 U/L (14-36); African American GFR (CKD) >90 (>60 ml/min/1.73 sqM); Albumin 2.7 g/dL (3.5-5.0); Albumin/Globulin Ratio 0.9; Alkaline Phosphatase 110 U/L (38-126); Anion Gap 9 mmol/L; Blood Urea Nitrogen 24 mg/dL (7-17); Calcium 8.2 mg/dL (8.4-10.2); Carbon Dioxide 18 mmol/L (22-30); Chloride 109 mmol/L (98-107); Globulin 2.9 g/dL; Glucose 91 mg/dL (74-99); Non-African American GFR(CKD) 89 (>60 ml/min/1.73 sqM); Potassium 3.8 mmol/L (3.5-5.1); Sodium 136 mmol/L (137-145); Total Bilirubin 0.5 mg/dL (0.2-1.3); Total Protein 5.6 g/dL (6.3-8.2)
[2021-05-24] MEDS ORDERED: DOCUSATE 100 MG CAP PO PRN (09:26)
[2021-05-24] MEDS ORDERED: SUMAtriptan succinate 50 MG TAB PO PRN (09:26)
[2021-05-24] MEDS ORDERED: tiZANidine 4 MG TAB PO PRN (09:26)
[2021-05-24] MEDS ORDERED: ALBUTEROL NEBULIZED 2.5 MG/3 ML INHALATION PRN (09:26)
[2021-05-24] MEDS ORDERED: ASENAPINE 5 MG TAB SUBLINGUAL PRN (09:26)
[2021-05-24] MEDS ORDERED: hydrOXYzine pamoate 25 MG CAP PO PRN (09:26)
[2021-05-24] MEDS ORDERED: BUTALB/APAP/CAFF 50-325-40MG TAB PO PRN (09:26)
[2021-05-24] MEDS ORDERED: IPRATROPIUM-ALBUTEROL 3 ML NEB INHALATION PRN (09:37)
[2021-05-24] MEDS: metroNIDAZOLE-NS PMX 500 MG in SALINE 1 100ML.BAG IVPB SCH ×2 (10:39→15:26)
--- NOTE | 2021-05-24 11:05 | P.GSCN ---
<Janet Aguiar - Last Filed: 05/24/21 12:44> History of Present Illness Consult date: 05/24/21 Requesting physician: Eduardo Yusuf History of present illness: CHIEF COMPLAINT: Rectal prolapse, abdominal pain HISTORY OF PRESENT ILLNESS: This is a 51-year-old female who presented to the emergency department yesterday evening with ongoing complaints of rectal prolapse as well as abdominal pain. The patient was seen earlier in the day in the emergency department for rectal prolapse which was easily reduced and she was sent home. The patient states she's been having prolapsed rectum for the past 2 weeks and just pushes it back in. She states she has not seen any specialist ordered. States she did talk to her PCP but was not referred to a specialist. She states she has a history of colitis, irritable bowel disease and had seen Ana Skinner from gastroenterology and was prescribed Linzess. She is also on a taper dose of steroids currently for her reported colitis. States she has IBS constipation, however states that she has a bowel movement daily. States she only takes her Linzess as needed. She has not been taking it reg ularly. She also has a past medical history of asthma, heart failure, COPD, fibromyalgia, GERD, hypertension, VA, seizure disorder, thyroid disorder, weakness with falls, short-term memory loss, anxiety, bipolar disease and posttraumatic stress disorder. The current every day smoker. Her past surgical history includes appendectomy, hysterectomy, orthopedic surgery, D&C and uterine ablation. Her last EGD and colonoscopy was done by Dr. Jo on 01/11/2019. EGD with findings small hiatal hernia with no obvious esophagitis or complicated reflux disease. Mild antral gastritis. Colonoscopy revealed isolated area of inflammation in the rectum, close to the rectum toe sigmoid junction, of unc ertain clinical significance, otherwise, exam within normal limits. Biopsies obtained. EGD biopsy shows gastritis. Colonoscopy showed mild nonspecific acute proctitis. Denies any nausea or vomiting. As part of the patient's workup in the emergency department they did a CT of the abdomen and pelvis that showed distended large bowel with fluid suggestive of ileus and diarrhea. No free air. Appendix not seen. No sign of thickened appendix. Nonobstructing right renal calculi. Wall thickening of the right colon is improved compared to old exam. Large bowel distention is increased compared to last exam. There is pericardial effusion unchanged. The patient states she is still having some mild right upper quadrant tenderness, she had a bowel movement this morning with return of her rectal prolapse, small amount of bleeding. She states that her bowels are loose, that she has a bowel movement daily. She is denying any burning with urination. She denies any fevers or chills. Patient does have leukocytosis on presentation with a white count of 21.6. Repeat labs today WBC 19.6 hemoglobin 11 hematocrit 33 platelet count 687,000 pain or was 0.9. Sodium 136 potassium 3.8 BUN 24 creatinine 0.79 glucose 91 magnesium 2.2 LFTs unremarkable. PAST MEDICAL HISTORY: See list. PAST SURGICAL HISTORY: See list. MEDICATIONS: See list. ALLERGIES: See list. SOCIAL HISTORY: No illicit drug use. REVIEW OF SYSTEMS: CONSTITUTIONAL: Denies fever or chills. HEENT: Denies blurred vision, vision changes, or eye pain. Denies hemoptysis CARDIOVASCULAR: Denies chest pain or pressure. RESPIRATORY: No shortness of breath. GASTROINTESTINAL: See HPI for pertinent findings HEMATOLOGIC: Denies bleeding disorders. GENITOURINARY: Denies any blood in urine or increased urinary frequency. SKIN: Denies pruitis. Denies rash. PHYSICAL EXAM: VITAL SIGNS: Reviewed GENERAL: Well-developed in no acute distress. HEENT: No sclera icterus. Extraocular movements grossly intact. Moist buccal mucosa. Head is atraumatic, normocephalic. No nasal drainage. ABDOMEN: Soft. Nondistended. Tenderness with palpation to right upper quadrant. Genitourinary: Rectal prolapse pink, easily reducible. No active bleeding. NEUROLOGIC: Alert and oriented. Cranial nerves II through XII grossly intact. LABORATORY DATA: WBC 19.6 hemoglobin 11 hematocrit 33 platelet count 687,000 INR 0.9 troponin 0.012 Sodium 136 potassium 3.8 BUN 24 creatinine 0.79 glucose 91 magnesium 2.2 albumin 2.7 Total bilirubin 0.5 AST 20 he'll T 12 alk phos 110 IMAGING: CT of the abdomen and pelvis that showed distended large bowel with fluid suggestive of ileus and diarrhea. No free air. Appendix not seen. No sign of thickened appendix. Nonobstructing right renal calculi. Wall thickening of the right colon is improved compared to old exam. Large bowel distention is increased compared to last exam. There is pericardial effusion unchanged. ASSESSMENT: 1. Rectal prolapse 2. Abdominal pain 3. Leukocytosis 4. History of IBS 5. History of acute proctitis PLAN: -Further recommendations forthcoming per surgeon -May have clear liquid diet -Please obtain urinalysis with culture -Repeat CBC, BMP -Continue medical management -Continue stool softeners and Linzesse -Continue antibiotics as ordered -Outpatient follow-up with referral to colorectal surgeon The impression and plan of care has been dictated as directed. Dr. Agee I performed a history and examination of this patient, discussed the same with the dictator. I agree with the dictator's note ,documented as a scribe. Any additional findings or plans will be noted. Past Medical History Past Medical History: Asthma, Heart Failure, COPD, Eye Disorder, Fibromyalgia, GERD/Reflux, Hyperlipidemia, Hypertension, Memory Impairment, Myocardial Infarction (VA), Osteoarthritis (OA), Pneumonia, Seizure Disorder, Skin Disorder, Syncope, Thyroid Disorder Additional Past Medical History / Comment(s): IBS, colitis, restless legs flexed syndrome, daily migraines, Vitamin D deficiency, benign left breast mass, gastritis, short term memory loss. Vision - "sees an orange aura." BILAT CATARACTS Last seizure 04/15/21, PT STATES THAT DR. VILLALBA IS AWARE"Legs are weak and balance is off." FELL SAT. AND INJURED TAILBONE, checked bone marrow for cancer Last Myocardial Infarction Date:: unknown History of Any Multi-Drug Resistant Organisms: None Reported Past Surgical History: Appendectomy, Hysterectomy, Orthopedic Surgery, Uterine Ablation Additional Past Surgical History / Comment(s): D&C, bilateral knee arthroscopy. Past Anesthesia/Blood Transfusion Reactions: No Reported Reaction Past Psychological History: Anxiety, Bipolar, Depression, PTSD Additional Psychological History / Comment(s): Borderline personality disorder. Smoking Status: Current every day smoker Past Alcohol Use History: None Reported Additional Past Alcohol Use History / Comment(s): Patient is a smoker of 2 packs per day since she was 17 years of age. Past Drug Use History: Marijuana Additional Drug Use History / Comment(s): Has been using Marijuana since age 16. Currently uses once a day. Aware no use 24 hrs prior to procedure. - Past Family History Father Family Medical History: Cancer Additional Family Medical History / Comment(s): Father of pancreatic cancer at the age of 62yrs. Mother Family Medical History: Congestive Heart Failure (CHF) Additional Family Medical History / Comment(s): Mother of CHF at the age of 60yrs. Brother(s) Additional Family Medical History / Comment(s): Patient had 1 brother that at 5 months of age. Sister(s) Additional Family Medical History / Comment(s): Patient has one sister with history of depression and bipolar. Patient has 2 half-sisters and one at age 26 from overdose. Patient does not have any children. Medications and Allergies Home Medications Medication Instructions Recorded Confirmed Type EPINEPHrine (Auto Inject) [Epipen] 0.3 mg IM ONCE PRN #1 syringe 08/28/16 05/24/21 Rx Levothyroxine Sodium [Synthroid] 75 mcg PO DAILY #30 tab 08/28/16 05/24/21 Rx Albuterol Nebulized [Ventolin 2.5 mg INHALATION RT-Q4H 04/30/17 05/24/21 History Nebulized] Asenapine Maleate [Saphris] 10 mg SUBLINGUAL BID 04/30/17 05/24/21 History Sertraline [Zoloft] 250 mg PO DAILY 04/30/17 05/24/21 History Atorvastatin [Lipitor] 40 mg PO HS 05/24/17 05/24/21 History Loratadine [Claritin] 10 mg PO DAILY 05/24/17 05/24/21 History Pantoprazole Sodium [Protonix] 40 mg PO BID 01/07/19 05/24/21 History Asenapine Maleate [Saphris] 2.5 mg SUBLINGUAL DAILY PRN 04/15/21 05/24/21 History Brivaracetam [Briviact] 10 mg PO BID 04/15/21 05/24/21 History Clobazam [Sympazan] 10 mg PO BID 04/15/21 05/24/21 History Docusate [Colace] 100 mg PO HS 04/15/21 05/24/21 History Gabapentin 800 mg PO TID 04/15/21 05/24/21 History Propranolol [Inderal] 40 mg PO BID 04/15/21 05/24/21 History SUMAtriptan SUCCINATE [Imitrex] 100 mg PO DAILY PRN 04/15/21 05/24/21 History Topiramate [Trokendi Xr] 100 mg PO DAILY 04/15/21 05/24/21 History amLODIPine [Norvasc] 5 mg PO DAILY 04/15/21 05/24/21 History busPIRone HCl [Buspar] 20 mg PO QID 04/15/21 05/24/21 History tiZANidine [Zanaflex] 2 mg PO TID PRN 04/15/21 05/24/21 History hydrOXYzine pamoate [Vistaril] 50 mg PO TID PRN 04/16/21 05/24/21 History Albuterol Sulfate [Proair Hfa] 2 puff INHALATION RT-QID PRN 05/10/21 05/24/21 History Amitriptyline HCl [Elavil] 100 mg PO HS 05/10/21 05/24/21 History Butalb/Asprin/Caff 50-325-40Mg 1 cap PO Q8H PRN 05/10/21 05/24/21 History [Fiorinal 50-325-40 MG] Colchicine [Mitigare] 0.6 mg PO BID 05/10/21 05/24/21 History Diclofenac Potassium [Cataflam] 50 mg PO TID 05/10/21 05/24/21 History Eslicarbazepine Acetate [Aptiom] 800 mg PO DAILY 05/10/21 05/24/21 History Etodolac [Lodine] 300 mg PO DAILY 05/10/21 05/24/21 History Furosemide [Lasix] 20 mg PO DAILY 05/10/21 05/24/21 History Linaclotide [Linzess] 290 mcg PO DAILY 05/10/21 05/24/21 History Potassium Chloride ER [K-Dur 10] 10 meq PO DAILY 05/10/21 05/24/21 History Prazosin HCl [Minipress] 4 mg PO DAILY@1700 05/10/21 05/24/21 History Prazosin HCl [Minipress] 6 mg PO HS 05/10/21 05/24/21 History Tiotropium 18 Mcg/Puff [Spiriva] 1 puff INHALATION RT-DAILY 05/10/21 05/24/21 History rOPINIRole HCL [Requip] 1 mg PO BID 05/10/21 05/24/21 History rOPINIRole HCL [Requip] 2 mg PO BID 05/10/21 05/24/21 History Docusate Sodium [Dok] 100 mg PO BID PRN #20 cap 05/23/21 05/24/21 Rx Mometasone/Formoterol [Dulera 200 2 puff INHALATION RT-BID 05/24/21 05/24/21 History Mcg-5 Mcg Inhaler] predniSONE See Taper PO DAILY 05/24/21 05/24/21 History Allergies Allergy/AdvReac Type Severity Reaction Status Date / Time bee venom protein (honey bee) Allergy Anaphylaxis Verified 05/24/21 00:00 ibuprofen [From Motrin] AdvReac Nausea & Verified 05/24/21 00:00 Vomiting & Diarrhea Surgical - Exam Vital Signs Temp Pulse Resp BP Pulse Ox 98.3 F 102 H 16 110/70 98 05/23/21 22:49 05/23/21 22:49 05/23/21 22:49 05/23/21 22:49 05/23/21 22:49 Results - Labs 05/24/21 07:34 05/24/21 07:34 Abnormal Lab Results - Last 24 Hours (Table) 05/23/21 05/23/21 05/24/21 Range/Units 23:23 23:23 05:24 WBC 21.6 H 19.4 H (3.8-10.6) k/uL RBC 3.35 L 3.26 L (3.80-5.40) m/uL Hgb 11.1 L (11.4-16.0) gm/dL Hct 33.2 L (34.0-46.0) % MCV 101.9 H 101.8 H (80.0-100.0) fL RDW (11.5-15.5) % Plt Count 664 H 551 H (150-450) k/uL Neutrophils # 17.1 H 15.6 H (1.3-7.7) k/uL Monocytes # 1.2 H (0-1.0) k/uL Sodium 135 L (137-145) mmol/L Chloride (98-107) mmol/L Carbon Dioxide 18 L (22-30) mmol/L BUN 27 H (7-17) mg/dL Creatinine 1.05 H (0.52-1.04) mg/dL Calcium (8.4-10.2) mg/dL Magnesium 0.8 L* (1.6-2.3) mg/dL Total Protein 5.8 L (6.3-8.2) g/dL Albumin 2.9 L (3.5-5.0) g/dL 05/24/21 05/24/21 05/24/21 Range/Units 05:24 07:34 07:34 WBC 19.6 H (3.8-10.6) k/uL RBC 3.28 L (3.80-5.40) m/uL Hgb 11.0 L (11.4-16.0) gm/dL Hct 33.5 L (34.0-46.0) % MCV 102.1 H (80.0-100.0) fL RDW 15.6 H (11.5-15.5) % Plt Count 687 H (150-450) k/uL Neutrophils # 16.4 H (1.3-7.7) k/uL Monocytes # (0-1.0) k/uL Sodium 134 L 136 L (137-145) mmol/L Chloride 108 H 109 H (98-107) mmol/L Carbon Dioxide 18 L 18 L (22-30) mmol/L BUN 26 H 24 H (7-17) mg/dL Creatinine (0.52-1.04) mg/dL Calcium 8.3 L 8.2 L (8.4-10.2) mg/dL Magnesium 2.5 H (1.6-2.3) mg/dL Total Protein 5.6 L 5.6 L (6.3-8.2) g/dL Albumin 2.7 L 2.7 L (3.5-5.0) g/dL Diabetes panel 05/23/21 05/24/21 05/24/21 Range/Units 23:23 05:24 07:34 Sodium 135 L 134 L 136 L (137-145) mmol/L Potassium 3.9 4.0 3.8 (3.5-5.1) mmol/L Chloride 107 108 H 109 H (98-107) mmol/L Carbon Dioxide 18 L 18 L 18 L (22-30) mmol/L BUN 27 H 26 H 24 H (7-17) mg/dL Creatinine 1.05 H 0.82 0.79 (0.52-1.04) mg/dL Glucose 99 88 91 (74-99) mg/dL Calcium 8.7 8.3 L 8.2 L (8.4-10.2) mg/dL AST 18 27 20 (14-36) U/L ALT 13 12 12 (4-34) U/L Alkaline Phosphatase 110 96 110 (38-126) U/L Total Protein 5.8 L 5.6 L 5.6 L (6.3-8.2) g/dL Albumin 2.9 L 2.7 L 2.7 L (3.5-5.0) g/dL Calcium panel 05/23/21 05/24/21 05/24/21 Range/Units 23:23 05:24 07:34 Calcium 8.7 8.3 L 8.2 L (8.4-10.2) mg/dL Phosphorus 4.5 4.1 (2.5-4.5) mg/dL Albumin 2.9 L 2.7 L 2.7 L (3.5-5.0) g/dL Pituitary panel 05/23/21 05/24/21 05/24/21 Range/Units 23:23 05:24 07:34 Sodium 135 L 134 L 136 L (137-145) mmol/L Potassium 3.9 4.0 3.8 (3.5-5.1) mmol/L Chloride 107 108 H 109 H (98-107) mmol/L Carbon Dioxide 18 L 18 L 18 L (22-30) mmol/L BUN 27 H 26 H 24 H (7-17) mg/dL Creatinine 1.05 H 0.82 0.79 (0.52-1.04) mg/dL Glucose 99 88 91 (74-99) mg/dL Calcium 8.7 8.3 L 8.2 L (8.4-10.2) mg/dL Adrenal panel 05/23/21 05/24/21 05/24/21 Range/Units 23:23 05:24 07:34 Sodium 135 L 134 L 136 L (137-145) mmol/L Potassium 3.9 4.0 3.8 (3.5-5.1) mmol/L Chloride 107 108 H 109 H (98-107) mmol/L Carbon Dioxide 18 L 18 L 18 L (22-30) mmol/L BUN 27 H 26 H 24 H (7-17) mg/dL Creatinine 1.05 H 0.82 0.79 (0.52-1.04) mg/dL Glucose 99 88 91 (74-99) mg/dL Calcium 8.7 8.3 L 8.2 L (8.4-10.2) mg/dL Total Bilirubin 0.5 0.6 0.5 (0.2-1.3) mg/dL AST 18 27 20 (14-36) U/L ALT 13 12 12 (4-34) U/L Alkaline Phosphatase 110 96 110 (38-126) U/L Total Protein 5.8 L 5.6 L 5.6 L (6.3-8.2) g/dL Albumin 2.9 L 2.7 L 2.7 L (3.5-5.0) g/dL <Adonay Agee - Last Filed: 05/24/21 13:07> History of Present Illness History of present illness: As above. Patient with intermittent rectal prolapse for the last several years. Symptoms had become much more frequent recently. Came to the ER for evaluation. Patient had a CAT scan showing inflammatory changes of the rectum and constipation. Patient says she is having bowel movements although struggles with chronic constipation and is on medications for this at home. Patient states she has ulcerative colitis however the last colonoscopy available to us did not appear to demonstrate that. She's follows with GI as an outpatient. Her next appointment with Dr. Ruby is in July. Patient has mild pain in the rectal area. She does admit to sitting on the toilet for long periods of time. Nursing staff has witnessed the rectal prolapse and assisted her with reducing at the last time. Per the nurse it was prolapsed approximately 3 inches or so. Apparently it was pinkish red in color and viable. Patient appears comfortable. Her white blood cell count is elevated and she was tachycardic last night. She is on oral steroids. Would increase stool softeners at this time however had a long discussion with the patient that she needs to spend a very short period of time on the toilet. Continue antibiotics and tapering steroids. Outpatient follow-up with GI. If symptoms persist despite appropriate improvement in bowel habits would consider referral to colorectal surgery for possible robotic rectopexy. We'll follow with you. Surgical - Exam Vital Signs Temp Pulse Resp BP Pulse Ox 98.3 F 102 H 16 110/70 98 05/23/21 22:49 09/16/21 22:49 05/23/21 22:49 05/23/21 22:49 05/23/21 22:49 Results - Labs 05/24/21 07:34 05/24/21 07:34 Abnormal Lab Results - Last 24 Hours (Table) 05/23/21 05/23/21 05/24/21 Range/Units 23:23 23:23 05:24 WBC 21.6 H 19.4 H (3.8-10.6) k/uL RBC 3.35 L 3.26 L (3.80-5.40) m/uL Hgb 11.1 L (11.4-16.0) gm/dL Hct 33.2 L (34.0-46.0) % MCV 101.9 H 101.8 H (80.0-100.0) fL RDW (11.5-15.5) % Plt Count 664 H 551 H (150-450) k/uL Neutrophils # 17.1 H 15.6 H (1.3-7.7) k/uL Monocytes # 1.2 H (0-1.0) k/uL Sodium 135 L (137-145) mmol/L Chloride (98-107) mmol/L Carbon Dioxide 18 L (22-30) mmol/L BUN 27 H (7-17) mg/dL Creatinine 1.05 H (0.52-1.04) mg/dL Calcium (8.4-10.2) mg/dL Magnesium 0.8 L* (1.6-2.3) mg/dL Total Protein 5.8 L (6.3-8.2) g/dL Albumin 2.9 L (3.5-5.0) g/dL Urine Protein (Negative) Urine Blood (Negative) Urine Nitrite (Negative) Urine Bilirubin (Negative) Ur Leukocyte Esterase (Negative) Urine RBC (0-5) /hpf Urine WBC (0-5) /hpf Urine Bacteria (None) /hpf Hyaline Casts (0-2) /lpf 05/24/21 05/24/21 05/24/21 Range/Units 05:24 07:34 07:34 WBC 19.6 H (3.8-10.6) k/uL RBC 3.28 L (3.80-5.40) m/uL Hgb 11.0 L (11.4-16.0) gm/dL Hct 33.5 L (34.0-46.0) % MCV 102.1 H (80.0-100.0) fL RDW 15.6 H (11.5-15.5) % Plt Count 687 H (150-450) k/uL Neutrophils # 16.4 H (1.3-7.7) k/uL Monocytes # (0-1.0) k/uL Sodium 134 L 136 L (137-145) mmol/L Chloride 108 H 109 H (98-107) mmol/L Carbon Dioxide 18 L 18 L (22-30) mmol/L BUN 26 H 24 H (7-17) mg/dL Creatinine (0.52-1.04) mg/dL Calcium 8.3 L 8.2 L (8.4-10.2) mg/dL Magnesium 2.5 H (1.6-2.3) mg/dL Total Protein 5.6 L 5.6 L (6.3-8.2) g/dL Albumin 2.7 L 2.7 L (3.5-5.0) g/dL Urine Protein (Negative) Urine Blood (Negative) Urine Nitrite (Negative) Urine Bilirubin (Negative) Ur Leukocyte Esterase (Negative) Urine RBC (0-5) /hpf Urine WBC (0-5) /hpf Urine Bacteria (None) /hpf Hyaline Casts (0-2) /lpf 05/24/21 Range/Units 10:40 WBC (3.8-10.6) k/uL RBC (3.80-5.40) m/uL Hgb (11.4-16.0) gm/dL Hct (34.0-46.0) % MCV (80.0-100.0) fL RDW (11.5-15.5) % Plt Count (150-450) k/uL Neutrophils # (1.3-7.7) k/uL Monocytes # (0-1.0) k/uL Sodium (137-145) mmol/L Chloride (98-107) mmol/L Carbon Dioxide (22-30) mmol/L BUN (7-17) mg/dL Creatinine (0.52-1.04) mg/dL Calcium (8.4-10.2) mg/dL Magnesium (1.6-2.3) mg/dL Total Protein (6.3-8.2) g/dL Albumin (3.5-5.0) g/dL Urine Protein Trace H (Negative) Urine Blood Moderate H (Negative) Urine Nitrite Positive H (Negative) Urine Bilirubin 1+ H (Negative) Ur Leukocyte Esterase Large H (Negative) Urine RBC 11 H (0-5) /hpf Urine WBC 26 H (0-5) /hpf Urine Bacteria Rare H (None) /hpf Hyaline Casts 4 H (0-2) /lpf Diabetes panel 05/23/21 05/24/21 05/24/21 Range/Units 23:23 05:24 07:34 Sodium 135 L 134 L 136 L (137-145) mmol/L Potassium 3.9 4.0 3.8 (3.5-5.1) mmol/L Chloride 107 108 H 109 H (98-107) mmol/L Carbon Dioxide 18 L 18 L 18 L (22-30) mmol/L BUN 27 H 26 H 24 H (7-17) mg/dL Creatinine 1.05 H 0.82 0.79 (0.52-1.04) mg/dL Glucose 99 88 91 (74-99) mg/dL Calcium 8.7 8.3 L 8.2 L (8.4-10.2) mg/dL AST 18 27 20 (14-36) U/L ALT 13 12 12 (4-34) U/L Alkaline Phosphatase 110 96 110 (38-126) U/L Total Protein 5.8 L 5.6 L 5.6 L (6.3-8.2) g/dL Albumin 2.9 L 2.7 L 2.7 L (3.5-5.0) g/dL Calcium panel 05/23/21 05/24/21 05/24/21 Range/Units 23:23 05:24 07:34 Calcium 8.7 8.3 L 8.2 L (8.4-10.2) mg/dL Phosphorus 4.5 4.1 (2.5-4.5) mg/dL Albumin 2.9 L 2.7 L 2.7 L (3.5-5.0) g/dL Pituitary panel 05/23/21 05/24/21 05/24/21 Range/Units 23:23 05:24 07:34 Sodium 135 L 134 L 136 L (137-145) mmol/L Potassium 3.9 4.0 3.8 (3.5-5.1) mmol/L Chloride 107 108 H 109 H (98-107) mmol/L Carbon Dioxide 18 L 18 L 18 L (22-30) mmol/L BUN 27 H 26 H 24 H (7-17) mg/dL Creatinine 1.05 H 0.82 0.79 (0.52-1.04) mg/dL Glucose 99 88 91 (74-99) mg/dL Calcium 8.7 8.3 L 8.2 L (8.4-10.2) mg/dL Adrenal panel 05/23/21 05/24/21 05/24/21 Range/Units 23:23 05:24 07:34 Sodium 135 L 134 L 136 L (137-145) mmol/L Potassium 3.9 4.0 3.8 (3.5-5.1) mmol/L Chloride 107 108 H 109 H (98-107) mmol/L Carbon Dioxide 18 L 18 L 18 L (22-30) mmol/L BUN 27 H 26 H 24 H (7-17) mg/dL Creatinine 1.05 H 0.82 0.79 (0.52-1.04) mg/dL Glucose 99 88 91 (74-99) mg/dL Calcium 8.7 8.3 L 8.2 L (8.4-10.2) mg/dL Total Bilirubin 0.5 0.6 0.5 (0.2-1.3) mg/dL AST 18 27 20 (14-36) U/L ALT 13 12 12 (4-34) U/L Alkaline Phosphatase 110 96 110 (38-126) U/L Total Protein 5.8 L 5.6 L 5.6 L (6.3-8.2) g/dL Albumin 2.9 L 2.7 L 2.7 L (3.5-5.0) g/dL
[2021-05-24 11:09] LABS: Appearance,Urine Clear (Clear); Bacteria,Urine Rare /hpf; Bilirubin,Urine 1+ (Negative); Blood,Urine Moderate (Negative); Color,Urine Yellow; Glucose,Urine (UA) Negative (Negative); Hyaline Casts,Urine 4 /lpf (0-2); Ketones,Urine Negative (Negative); Leukocyte Esterase,Urine Large (Negative); Nitrite,Urine Positive (Negative); PH, Urine 5.5 (5.0-8.0); Protein,Urine Trace (Negative); RBC,Urine 11 /hpf (0-5); Specific Gravity,Urine 1.023 (1.001-1.035); Squamous Epithelial Cell,Urine 3 /hpf (0-4); Urobilinogen,Urine <2.0 mg/dL (<2.0); WBC,Urine 26 /hpf (0-5)
[2021-05-24] MEDS ORDERED: ALBUTEROL NEBULIZED 2.5 MG/3 ML INHALATION SCH (12:00)
[2021-05-24] MEDS ORDERED: LEVOFLOXACIN 500MG-D5W PMX 500 MG in DEXTROSE/WATER 1 100ML.BAG IVPB SCH (12:00)
[2021-05-24] MEDS ORDERED: AMPICILLIN-SULBACTAM 3 GM in SODIUM CHLORIDE 0.9% 100 ML IVPB SCH (12:00)
--- NOTE | 2021-05-24 12:10 | P.HPIM ---
History of Present Illness H&P Date: 05/24/21 Chief Complaint: abd pain HISTORY OF PRESENT ILLNESS This is a 51-year-old female patient of Tom Paul NP with past medical history of COPD, fibromyalgia, hypertension, hyperlipidemia, myocardial infarction in 2013, hypothyroidism, irritable bowel syndrome, colitis, restless leg syndrome, migraines, bipolar disorder, personality disorder, PTSD, generalized anxiety disorder, tobacco use and dependence. Patient states that she has had problems with her "rectum coming out"for the past 4 years. She states she is usually able to push it back and side without problems but now she is having difficulty with this. She states she has had constipation but usually has a bowel movement every day. She did have a bowel movement this morning that was soft. She denies any diarrhea. She states it was some fresh blood in her stool. She does state she has hemorrhoids. She complains of nausea and shortness of breath. She is currently on prednisone in the outpatient setting which she states is for colitis. She has an appointment with Dr. Kathrine Shahid on July 21 and was previously being followed by Ana BURTON in the office. Her last EGD and colonoscopy was by Dr. Jo on 01/2019. EGD with findings small hiatal hernia with no obvious esophagitis or complicated reflux disease. Mild antral gastritis. Colonoscopy revealed isolated area of inflammation in the rectum, close to the rectum sigmoid junction, of uncertain clinical significance, otherwise, exam within normal limits. EGD biopsy shows gastritis. Colonoscopy showed mild nonspecific acute proctitis. Patient has colonoscopy scheduled with Dr. Kathrine Shahid on June 19. Patient presented to [facility] emergency center for evaluation. She was found to be afebrile, blood pressure 110/70, heart rate 102, pulse ox 98% on room air. WBC 21.6, hemoglobin 11.4, platelet count 664. Sodium 135, potassium 3.9, chloride 107, CO2 18, BUN 27 creatinine 1.05. Magnesium 0.8 with repeat 2.2. Liver function tests were normal. Lactic acid 1.1. Troponin negative on 2 draws. Urinalysis revealed blood moderate, nitrate positive, leukoesterase large, RBCs 11, WBC 26. Coronavirus PCR not detected. CT of the abdomen and pelvis with contrast revealed distended large bowel with fluid suggestive of ileus and diarrhea. No free air. Appendix not seen. No sign of thickened appendix. Nonobstructing right renal calculi. Wall thickening of the right colon is improved compared to old exam. Large bowel distention is increased compared to last exam. There is pericardial effusion unchanged. Chest x-ray revealed borderline enlarged cardiac silhouette, patient with known pericardial effusion, question some scarring or interstitial changes in the mid lungs. She admitted to the [facility] and patient is seen by general surgery and prolapsed rectum has been reduced, no sign of active bleeding, mild hemorrhoids. REVIEW OF SYSTEMS Constitutional: No fever, no chills, no night sweats. No weight change. No weakness, fatigue or lethargy. No daytime sleepiness. EENT: No headache. No blurred vision or double vision, no loss of vision. No loss of Hearing, no ringing in the ears, no dizziness. No nasal drainage or congestion. No epistaxis. No sore throat. Lungs: No shortness of breath, cough, no sputum production. Reports wheezing. Cardiovascular: No chest pain, no lower extremity edema. No palpitations. No paroxysmal nocturnal dyspnea. No orthopnea. No lightheadedness or dizziness. No syncopal episodes. Abdominal: Reports abdominal pain. No nausea, vomiting. No diarrhea. No constipation. No bloody or tarry stools.. No loss of appetite. Genitourinary: Reports dysuria, reports increased frequency, urgency. No ur inary retention. Musculoskeletal: No myalgias. No muscle weakness, no gait dysfunction, no frequent falls. No back pain. No neck pain. Integumentary: No wounds, no lesions. No rash or pruritus. No unusual bruising. No change in hair or nails. Neurologic: No aphasia. No facial droop. No change in mentation. No head injury. No headache. No paralysis. No paresthesia. Psychiatric: No depression. No anxiety. No mood swings. Endocrine: No abnormal blood sugars. No weight change. No excessive sweating or thirst. No cold intolerance. SOCIAL HISTORY Patient is a smoker of 2 packs per day since she was 17 years of age. She has been using Marijuana since age 16. Currently uses once a day. No alcohol use. FAMILY HISTORY Father of pancreatic cancer at the age of 62yrsMother of CHF at the age of 60yrs. Patient had 1 brother that at 5 months of age. Patient has one sister with history of depression and bipolar. Patient has 2 half-sisters and one at age 26 from overdose. Patient does not have any children.. PHYSICAL EXAMINATION Gen: This is a 81-year-old female. Patient is found walking from the bathroom to bed and appears to be comfortable. No acute distress is noted. Gait is steady. HEENT: Head is atraumatic, normocephalic. Pupils equal, round. Sclerae is anicteric. NECK: Supple. No JVD. No lymphadenopathy. No thyromegaly. LUNGS: Clear to auscultation. Mild expiratory expiratory wheezing bilaterally. No intercostal retractions. HEART: Regular rate and rhythm. No murmur. ABDOMEN: Soft. Bowel sounds are present. No masses. Right upper quadrant tenderness. EXTREMITIES: No pedal edema. No calf tenderness. Cells pedis +2 bilaterally. NEUROLOGICAL: Patient is awake, alert and oriented x3. Cranial nerves 2 through 12 are grossly intact. ASSESSMENT AND PLAN 1. Rectal prolapse. Surgery consult consult appreciated. Plan for outpatient follow-up. 2. Possible acute colitis. She started on IV Levaquin and IV Flagyl. She was on oral prednisone as an outpatient which she states was for colitis 3. Acute urinary tract infection. Continue antibiotics. 4. COPD with mild exacerbation. Patient started on DuoNeb treatments scheduled 3 times daily and as needed, continue Symbicort 2 puffs twice daily. 5. Hypertension. Continue Norvasc 5 mg daily, Lasix 20 mg daily, Inderal 40 mg twice daily. 6. Hyperlipidemia. Continue Lipitor 40 mg at bedtime 7. Hypothyroidism. Continue Synthroid 75 g daily. 8. Bipolar disorder, personality disorder, PTSD, generalized anxiety disorder. Continue patient on amitriptyline 100 mg at bedtime, asenapine 10 mg sublingually twice daily and 2.5 mg daily as needed, gabapentin 800 mg 3 times daily, Vistaril 50 mg 3 times daily as needed, prazosin 4 mg daily and 6 mg at bedtime, Zoloft 250 mg daily. 9. Hypothyroidism. Continue levothyroxine 75 g daily. 10. IBS. Continue Linzess 290 g daily. Follow up with Dr. Vora tomorrow for colonoscopy as scheduled. 11. Seasonal ALLERGIES. Continue Claritin 10 mg daily. 12. Gastroesophageal reflux disease. Continue Protonix 40 mg twicedaily. 13. Seizure disorder. Continue Briviact 10 mg twice daily, clobazam 10 mg twice daily, eslicarbazepine 800 mg daily, Topamax 50 mg twice daily 14. Chronic gout. Continue colchicine 0.6 mg twice daily. 15. Restless leg syndrome. Continue Requip 3 mg twice daily. 16. Migraine headaches. Continue Fioricet 1 every 8 hours as needed, Topamax 100 mg twice daily, Imitrex 100 mg daily as needed.. 17. Fibromyalgia, stable. Patient will be admitted to the hospital for a minimum of 2 night stay. DISCHARGE PLAN Home on Thursday. Impression and plan of care have been directed as dictated by the signing physician. Natasha Nichols nurse practitioner acting as scribe for signing physician. Past Medical History Past Medical History: Asthma, Heart Failure, COPD, Eye Disorder, Fibromyalgia, GERD/Reflux, Hyperlipidemia, Hypertension, Memory Impairment, Myocardial Infarction (DE), Osteoarthritis (OA), Pneumonia, Seizure Disorder, Skin Disorder, Syncope, Thyroid Disorder Additional Past Medical History / Comment(s): IBS, colitis, restless legs flexed syndrome, daily migraines, Vitamin D deficiency, benign left breast mass, gastritis, short term memory loss. Vision - "sees an orange aura." BILAT CATARACTS Last seizure 04/15/21, PT STATES THAT DR. VILLALBA IS AWARE"Legs are weak and balance is off." FELL SAT. AND INJURED TAILBONE, checked bone marrow for cancer Last Myocardial Infarction Date:: unknown History of Any Multi-Drug Resistant Organisms: None Reported Past Surgical History: Appendectomy, Hysterectomy, Orthopedic Surgery, Uterine Ablation Additional Past Surgical History / Comment(s): D&C, bilateral knee arthroscopy. Past Anesthesia/Blood Transfusion Reactions: No Reported Reaction Past Psychological History: Anxiety, Bipolar, Depression, PTSD Additional Psychological History / Comment(s): Borderline personality disorder. Smoking Status: Current every day smoker Past Alcohol Use History: None Reported Additional Past Alcohol Use History / Comment(s): Patient is a smoker of 2 packs per day since she was 17 years of age. Past Drug Use History: Marijuana Additional Drug Use History / Comment(s): Has been using Marijuana since age 16. Currently uses once a day. Aware no use 24 hrs prior to procedure. - Past Family History Father Family Medical History: Cancer Additional Family Medical History / Comment(s): Father of pancreatic cancer at the age of 62yrs. Mother Family Medical History: Congestive Heart Failure (CHF) Additional Family Medical History / Comment(s): Mother of CHF at the age of 60yrs. Brother(s) Additional Family Medical History / Comment(s): Patient had 1 brother that at 5 months of age. Sister(s) Additional Family Medical History / Comment(s): Patient has one sister with history of depression and bipolar. Patient has 2 half-sisters and one at age 26 from overdose. Patient does not have any children. Medications and Allergies Home Medications Medication Instructions Recorded Confirmed Type EPINEPHrine (Auto Inject) [Epipen] 0.3 mg IM ONCE PRN #1 syringe 08/28/16 05/24/21 Rx Levothyroxine Sodium [Synthroid] 75 mcg PO DAILY #30 tab 08/28/16 05/24/21 Rx Albuterol Nebulized [Ventolin 2.5 mg INHALATION RT-Q4H 04/30/17 05/24/21 History Nebulized] Asenapine Maleate [Saphris] 10 mg SUBLINGUAL BID 04/30/17 05/24/21 History Sertraline [Zoloft] 250 mg PO DAILY 04/30/17 05/24/21 History Atorvastatin [Lipitor] 40 mg PO HS 05/24/17 05/24/21 History Loratadine [Claritin] 10 mg PO DAILY 05/24/17 05/24/21 History Pantoprazole Sodium [Protonix] 40 mg PO BID 01/07/19 05/24/21 History Asenapine Maleate [Saphris] 2.5 mg SUBLINGUAL DAILY PRN 04/15/21 05/24/21 History Brivaracetam [Briviact] 10 mg PO BID 04/15/21 05/24/21 History Clobazam [Sympazan] 10 mg PO BID 04/15/21 05/24/21 History Docusate [Colace] 100 mg PO HS 04/15/21 05/24/21 History Gabapentin 800 mg PO TID 04/15/21 05/24/21 History Propranolol [Inderal] 40 mg PO BID 04/15/21 05/24/21 History SUMAtriptan SUCCINATE [Imitrex] 100 mg PO DAILY PRN 04/15/21 05/24/21 History Topiramate [Trokendi Xr] 100 mg PO DAILY 04/15/21 05/24/21 History amLODIPine [Norvasc] 5 mg PO DAILY 04/15/21 05/24/21 History busPIRone HCl [Buspar] 20 mg PO QID 04/15/21 05/24/21 History tiZANidine [Zanaflex] 2 mg PO TID PRN 04/15/21 05/24/21 History hydrOXYzine pamoate [Vistaril] 50 mg PO TID PRN 04/16/21 05/24/21 History Albuterol Sulfate [Proair Hfa] 2 puff INHALATION RT-QID PRN 05/10/21 05/24/21 History Amitriptyline HCl [Elavil] 100 mg PO HS 05/10/21 05/24/21 History Butalb/Asprin/Caff 50-325-40Mg 1 cap PO Q8H PRN 05/10/21 05/24/21 History [Fiorinal 50-325-40 MG] Colchicine [Mitigare] 0.6 mg PO BID 05/10/21 05/24/21 History Diclofenac Potassium [Cataflam] 50 mg PO TID 05/10/21 05/24/21 History Eslicarbazepine Acetate [Aptiom] 800 mg PO DAILY 05/10/21 05/24/21 History Etodolac [Lodine] 300 mg PO DAILY 05/10/21 05/24/21 History Furosemide [Lasix] 20 mg PO DAILY 05/10/21 05/24/21 History Linaclotide [Linzess] 290 mcg PO DAILY 05/10/21 05/24/21 History Potassium Chloride ER [K-Dur 10] 10 meq PO DAILY 05/10/21 05/24/21 History Prazosin HCl [Minipress] 4 mg PO DAILY@1700 05/10/21 05/24/21 History Prazosin HCl [Minipress] 6 mg PO HS 05/10/21 05/24/21 History Tiotropium 18 Mcg/Puff [Spiriva] 1 puff INHALATION RT-DAILY 05/10/21 05/24/21 History rOPINIRole HCL [Requip] 1 mg PO BID 05/10/21 05/24/21 History rOPINIRole HCL [Requip] 2 mg PO BID 05/10/21 05/24/21 History Docusate Sodium [Dok] 100 mg PO BID PRN #20 cap 05/23/21 05/24/21 Rx Mometasone/Formoterol [Dulera 200 2 puff INHALATION RT-BID 05/24/21 05/24/21 History Mcg-5 Mcg Inhaler] predniSONE See Taper PO DAILY 05/24/21 05/24/21 History Allergies Allergy/AdvReac Type Severity Reaction Status Date / Time bee venom protein (honey bee) Allergy Anaphylaxis Verified 05/24/21 00:00 ibuprofen [From Motrin] AdvReac Nausea & Verified 05/24/21 00:00 Vomiting & Diarrhea Physical Exam Vitals: Vital Signs Temp Pulse Pulse Resp BP BP Pulse Ox 05/24/21 07:09 98.2 F 117 H 18 110/71 92 L 05/24/21 02:32 99 15 05/24/21 01:45 97.6 F 99 15 110/74 96 05/24/21 00:47 102 H 16 107/64 98 05/23/21 22:49 98.3 F 102 H 16 110/70 98 Intake and Output 05/23/21 05/24/21 05/24/21 22:59 06:59 14:59 Other: Weight 47.627 kg 47.627 kg Results CBC & Chem 7: 05/24/21 07:34 05/24/21 07:34 Labs: Abnormal Lab Results - Last 24 Hours (Table) 05/23/21 05/23/21 05/24/21 Range/Units 23:23 23:23 05:24 WBC 21.6 H 19.4 H (3.8-10.6) k/uL RBC 3.35 L 3.26 L (3.80-5.40) m/uL Hgb 11.1 L (11.4-16.0) gm/dL Hct 33.2 L (34.0-46.0) % MCV 101.9 H 101.8 H (80.0-100.0) fL RDW (11.5-15.5) % Plt Count 664 H 551 H (150-450) k/uL Neutrophils # 17.1 H 15.6 H (1.3-7.7) k/uL Monocytes # 1.2 H (0-1.0) k/uL Sodium 135 L (137-145) mmol/L Chloride (98-107) mmol/L Carbon Dioxide 18 L (22-30) mmol/L BUN 27 H (7-17) mg/dL Creatinine 1.05 H (0.52-1.04) mg/dL Calcium (8.4-10.2) mg/dL Magnesium 0.8 L* (1.6-2.3) mg/dL Total Protein 5.8 L (6.3-8.2) g/dL Albumin 2.9 L (3.5-5.0) g/dL 05/24/21 05/24/21 05/24/21 Range/Units 05:24 07:34 07:34 WBC 19.6 H (3.8-10.6) k/uL RBC 3.28 L (3.80-5.40) m/uL Hgb 11.0 L (11.4-16.0) gm/dL Hct 33.5 L (34.0-46.0) % MCV 102.1 H (80.0-100.0) fL RDW 15.6 H (11.5-15.5) % Plt Count 687 H (150-450) k/uL Neutrophils # 16.4 H (1.3-7.7) k/uL Monocytes # (0-1.0) k/uL Sodium 134 L 136 L (137-145) mmol/L Chloride 108 H 109 H (98-107) mmol/L Carbon Dioxide 18 L 18 L (22-30) mmol/L BUN 26 H 24 H (7-17) mg/dL Creatinine (0.52-1.04) mg/dL Calcium 8.3 L 8.2 L (8.4-10.2) mg/dL Magnesium 2.5 H (1.6-2.3) mg/dL Total Protein 5.6 L 5.6 L (6.3-8.2) g/dL Albumin 2.7 L 2.7 L (3.5-5.0) g/dL Thrombosis Risk Factor Assmnt - Choose All That Apply Any of the Below Risk Factors Present?: Yes Each Factor Represents 1 point: Age 41-60 years, Swollen legs (current) Each Risk Factor Represents 3 Points: History of DVT/PE Thrombosis Risk Factor Assessment Total Risk Factor Score: 5 Thrombosis Risk Factor Assessment Level: High Risk
[2021-05-24] MEDS: busPIRone HCl 10 MG TAB PO SCH ×3 (12:11→21:25)
[2021-05-24] MEDS: IPRATROPIUM-ALBUTEROL 3 ML NEB INHALATION SCH ×2 (12:14→19:30)
[2021-05-24] MEDS ORDERED: MAGNESIUM CITRATE 296 ML BOTTLE PO ONE (13:02)
[2021-05-24] MEDS: GABAPENTIN 400 MG CAP PO SCH ×2 (15:26→21:25)
[2021-05-24] MEDS ORDERED: PRAZOSIN 1 MG CAP PO SCH ×2 (17:00→21:00)
[2021-05-24] MEDS ORDERED: PANTOPRAZOLE 40 MG TABLET PO SCH (17:30)
[2021-05-24] MEDS: AMPICILLIN-SULBACTAM 3 GM in SODIUM CHLORIDE 0.9% 100 ML IVPB SCH (17:37)
[2021-05-24] MEDS: ETODOLAC 200 MG CAPSULE PO SCH ×2 (17:37→21:26)
[2021-05-24 18:05] LABS: Appearance,Urine Clear (Clear); Bilirubin,Urine 2+ (Negative); Blood,Urine Negative (Negative); Color,Urine Yellow; Glucose,Urine (UA) Negative (Negative); Ketones,Urine Negative (Negative); Leukocyte Esterase,Urine Moderate (Negative); Mucus,Urine Rare /hpf; Nitrite,Urine Positive (Negative); PH, Urine 5.5 (5.0-8.0); Protein,Urine Negative (Negative); RBC,Urine 1 /hpf (0-5); Specific Gravity,Urine 1.022 (1.001-1.035); Squamous Epithelial Cell,Urine <1 /hpf (0-4); Urobilinogen,Urine <2.0 mg/dL (<2.0); WBC,Urine 22 /hpf (0-5)
[2021-05-24] MEDS: SYMBICORT 160-4.5 MCG INHALER INHALATION SCH (19:30)
[2021-05-24] MEDS ORDERED: AMITRIPTYLINE HCL 50 MG TAB PO SCH (21:00)
[2021-05-24] MEDS ORDERED: NON FORMULARY DRUG (Ropinirole Hcl [Requip] 2 MG Tablet) PO SCH (21:00)
[2021-05-24] MEDS ORDERED: COLCHICINE 0.6 MG EACH PO SCH (21:00)
[2021-05-24] MEDS ORDERED: ASENAPINE 5 MG TAB SUBLINGUAL SCH (21:00)
[2021-05-24] MEDS ORDERED: DOCUSATE 100 MG CAP PO SCH (21:00)
[2021-05-24] MEDS ORDERED: CLOBAZAM 10 MG PO SCH (21:00)
[2021-05-24] MEDS ORDERED: ATORVASTATIN 40 MG TAB PO SCH (21:00)
[2021-05-25] MEDS: AMPICILLIN-SULBACTAM 3 GM in SODIUM CHLORIDE 0.9% 100 ML IVPB SCH ×2 (00:49→06:26)
[2021-05-25] MEDS: metroNIDAZOLE-NS PMX 500 MG in SALINE 1 100ML.BAG IVPB SCH (00:50)
[2021-05-25] MEDS ORDERED: LEVOTHYROXINE 75 MCG TAB PO SCH (06:30)
[2021-05-25 07:59] VITALS: BP 122/79; PULSE 98; RESP 17; TEMP 98.7
[2021-05-25] MEDS ORDERED: NON FORMULARY DRUG (Tiotropium 18 Mcg/Puff 1 PUFF Each) INHALATION SCH (08:00)
[2021-05-25] MEDS: SYMBICORT 160-4.5 MCG INHALER INHALATION SCH (08:06)
[2021-05-25] MEDS: IPRATROPIUM-ALBUTEROL 3 ML NEB INHALATION SCH (08:06)
[2021-05-25] MEDS ORDERED: LORATADINE 10 MG TAB PO SCH (09:00)
[2021-05-25] MEDS ORDERED: ETODOLAC 300 MG CAPSULE PO SCH (09:00)
[2021-05-25] MEDS ORDERED: Linaclotide [Linzess] 290 MCG Capsule PO SCH (09:00)
[2021-05-25] MEDS ORDERED: POTASSIUM CHLORIDE ER 10 MEQ TAB.ER.PRT PO SCH (09:00)
[2021-05-25] MEDS ORDERED: TOPIRAMATE 25 MG TAB PO SCH (09:00)
[2021-05-25] MEDS ORDERED: SERTRALINE 100 MG TAB PO SCH (09:00)
[2021-05-25] MEDS ORDERED: amLODIPine 5 MG TAB PO SCH (09:00)
[2021-05-25] MEDS ORDERED: ESLICARBAZEPINE ACETATE 400 MG PO SCH (09:00)
[2021-05-25] MEDS ORDERED: FUROSEMIDE 20 MG TAB PO SCH (09:00)
[2021-05-25 12:19] LABS: Albumin 2.7 g/dL (3.80-4.90); Albumin/Globulin Ratio 1.29 (1.60-3.17); BUN/Creat Ratio 23.33 Ratio (12.00-20.00); Calcium 7.4 mg/dL (8.7-10.3); Globulin 2.1 g/dL (1.6-3.3); Potassium 3.9 mmol/L (3.5-5.5); Total Bilirubin 0.3 mg/dL (0.2-1.2); Total Protein 4.8 g/dL (6.2-8.2)
[2021-05-25 12:24] LABS: HCT 29.5 % (37.2-46.3); HGB 9.6 g/dL (12.0-15.0); MCH 32.2 pg (27.0-32.0); MCHC 32.5 g/dL (32.0-37.0); Mean Platelet Volume 8.6 fL (9.5-12.2); Platelet Count 574 X 10*3/uL (140-440); RBC 2.98 X 10*6/uL (4.10-5.20); WBC 15.58 X 10*3/uL (4.50-10.00)
[2021-05-25 13:18] LABS: Basophils # (A) 0.04 X 10*3/uL (0.00-0.10); Basophils % (A) 0.3 %; Eosinophils # (A) 0.22 X 10*3/uL (0.04-0.35); Eosinophils % (A) 1.4 %; Lymphocytes # (A) 1.51 X 10*3/uL (0.90-5.00); Lymphocytes % (A) 9.7 %; Monocytes # (A) 1.09 X 10*3/uL (0.20-1.00); Neutrophils # (A) 12.61 X 10*3/uL (1.80-7.70); Neutrophils % (A) 80.9 %
--- NOTE | 2021-06-06 10:50 | P.DS ---
Providers Date of admission: 05/23/21 23:42 Expected date of discharge: 05/25/21 Attending physician: Nikita Nichols Consults: 05/23/21 23:42 Consult Physician Routine Consulting Provider: Adonay Agee Consult Reason/Comments: prolapse Do you want consulting provider notified?: Yes Primary care physician: Harpreet Mcdu[facility] Course: HISTORY OF PRESENT ILLNESS This is a 51-year-old female patient of Tom Paul NP with past medical history of COPD, fibromyalgia, hypertension, hyperlipidemia, myocardial infarction in 2014, hypothyroidism, irritable bowel syndrome, colitis, restless leg syndrome, migraines, bipolar disorder, personality disorder, PTSD, generalized anxiety disorder, tobacco use and dependence. Patient states that she has had problems with her "rectum coming out"for the past 4 years. She states she is usually able to push it back and side without problems but now she is having difficulty with this. She states she has had constipation but usually has a bowel movement every day. She did have a bowel movement this morning that was soft. She denies any diarrhea. She states it was some fresh blood in her stool. She does state she has hemorrhoids. She complains of nausea and shortness of breath. She is currently on prednisone in the outpatient setting which she states is for colitis. She has an appointment with Dr. Kathrine Shahid on July 21 and was previously being followed by Ana BURTON in the office. Her last EGD and colonoscopy was by Dr. Jo on 01/2019. EGD with findings small hiatal hernia with no obvious esophagitis or complicated reflux disease. Mild antral gastritis. Colonoscopy revealed isolated area of inflammation in the rectum, close to the rectum sigmoid junction, of uncertain clinical significance, otherwise, exam within normal limits. EGD biopsy shows gastritis. Colonoscopy showed mild nonspecific acute proctitis. Patient has colonoscopy scheduled with Dr. Kathrine Shahid on June 19. Patient presented to [facility] emergency center for evaluation. She was found to be afebrile, blood pressure 110/70, heart rate 102, pulse ox 98% on room air. WBC 21.6, hemoglobin 11.4, platelet count 664. Sodium 135, potassium 3.9, chloride 107, CO2 18, BUN 27 creatinine 1.05. Magnesium 0.8 with repeat 2.2. Liver function tests were normal. Lactic acid 1.1. Troponin negative on 2 draws. Urinalysis revealed blood moderate, nitrate positive, leukoesterase large, RBCs 11, WBC 26. Coronavirus PCR not detected. CT of the abdomen and pelvis with contrast revealed distended large bowel with fluid suggestive of ileus and diarrhea. No free air. Appendix not seen. No sign of thickened appendix. Nonobstructing right renal calculi. Wall thickening of the right colon is improved compared to old exam. Large bowel distention is increased compared to last exam. There is pericardial effusion unchanged. Chest x-ray revealed borderline enlarged cardiac silhouette, patient with known pericardial effusion, question some scarring or interstitial changes in the mid lungs. She admitted to the [facility] floor and patient is seen by general surgery and prolapsed rectum has been reduced, no sign of active bleeding, mild hemorrhoids. PATIENT LEFT AMA. PLEASE SEE NURSING DOCUMENTATION FOR DETAILS. ASSESSMENT AND PLAN 1. Rectal prolapse. Surgery consult consult appreciated. Plan for outpatient follow-up. 2. Possible acute colitis. 3. Acute urinary tract infection. 4. COPD with mild exacerbation. 5. Hypertension. 6. Hyperlipidemia. 7. Hypothyroidism. 8. Bipolar disorder, personality disorder, PTSD, generalized anxiety disorder. 9. Hypothyroidism. 10. IBS. 11. Seasonal ALLERGIES. 12. Gastroesophageal reflux disease. 13. Seizure disorder. 14. Chronic gout. 15. Restless leg syndrome. 16. Migraine headaches. 17. Fibromyalgia, stable. Impression and plan of care have been directed as dictated by the signing physician. Natasha Nichols nurse practitioner acting as scribe for signing physician. Patient Condition at Discharge: Undetermined Plan - Discharge Summary Discharge Rx Participant: No New Discharge Prescriptions: No Action EPINEPHrine (Auto Inject) [Epipen] 0.3 mg IM ONCE PRN #1 syringe PRN Reason: Anaphylaxis Levothyroxine Sodium [Synthroid] 75 mcg PO DAILY #30 tab Sertraline [Zoloft] 250 mg PO DAILY Albuterol Nebulized [Ventolin Nebulized] 2.5 mg INHALATION RT-Q4H Asenapine Maleate [Saphris] 10 mg SUBLINGUAL BID Atorvastatin [Lipitor] 40 mg PO HS Loratadine [Claritin] 10 mg PO DAILY Pantoprazole Sodium [Protonix] 40 mg PO BID tiZANidine [Zanaflex] 2 mg PO TID PRN PRN Reason: Muscle Spasm Gabapentin 800 mg PO TID Brivaracetam [Briviact] 10 mg PO BID Propranolol [Inderal] 40 mg PO BID busPIRone HCl [Buspar] 20 mg PO QID SUMAtriptan SUCCINATE [Imitrex] 100 mg PO DAILY PRN PRN Reason: Migraine Headache Albuterol Sulfate [Proair Hfa] 2 puff INHALATION RT-QID PRN PRN Reason: Shortness Of Breath Butalb/Asprin/Caff 50-325-40Mg [Fiorinal 50-325-40 MG] 1 cap PO Q8H PRN PRN Reason: Headache Colchicine [Mitigare] 0.6 mg PO BID Etodolac [Lodine] 300 mg PO DAILY Furosemide [Lasix] 20 mg PO DAILY Linaclotide [Linzess] 290 mcg PO DAILY Prazosin HCl [Minipress] 4 mg PO DAILY@1700 Prazosin HCl [Minipress] 6 mg PO HS Tiotropium 18 Mcg/Puff [Spiriva] 1 puff INHALATION RT-DAILY Docusate Sodium [Dok] 100 mg PO BID PRN #20 cap PRN Reason: Constipation predniSONE See Taper PO DAILY Mometasone/Formoterol [Dulera 200 Mcg-5 Mcg Inhaler] 2 puff INHALATION RT-BID Docusate [Colace] 100 mg PO HS Clobazam [Sympazan] 10 mg PO BID Topiramate [Trokendi Xr] 100 mg PO DAILY Asenapine Maleate [Saphris] 2.5 mg SUBLINGUAL DAILY PRN PRN Reason: Agitation amLODIPine [Norvasc] 5 mg PO DAILY hydrOXYzine pamoate [Vistaril] 50 mg PO TID PRN PRN Reason: Anxiety Amitriptyline HCl [Elavil] 100 mg PO HS Diclofenac Potassium [Cataflam] 50 mg PO TID Eslicarbazepine Acetate [Aptiom] 800 mg PO DAILY Potassium Chloride ER [K-Dur 10] 10 meq PO DAILY rOPINIRole HCL [Requip] 1 mg PO BID rOPINIRole HCL [Requip] 2 mg PO BID Discharge Medication List EPINEPHrine (Auto Inject) [Epipen] 0.3 mg IM ONCE PRN #1 syringe 08/28/16 [Rx] Levothyroxine Sodium [Synthroid] 75 mcg PO DAILY #30 tab 08/28/16 [Rx] Albuterol Nebulized [Ventolin Nebulized] 2.5 mg INHALATION RT-Q4H 08/24/17 [History] Asenapine Maleate [Saphris] 10 mg SUBLINGUAL BID 04/30/17 [History] Sertraline [Zoloft] 250 mg PO DAILY 04/30/17 [History] Atorvastatin [Lipitor] 40 mg PO HS 05/24/17 [History] Loratadine [Claritin] 10 mg PO DAILY 05/24/17 [History] Pantoprazole Sodium [Protonix] 40 mg PO BID 01/07/19 [History] Asenapine Maleate [Saphris] 2.5 mg SUBLINGUAL DAILY PRN 04/15/21 [History] Brivaracetam [Briviact] 10 mg PO BID 04/15/21 [History] Clobazam [Sympazan] 10 mg PO BID 04/15/21 [History] Docusate [Colace] 100 mg PO HS 04/15/21 [History] Gabapentin 800 mg PO TID 04/15/21 [History] Propranolol [Inderal] 40 mg PO BID 04/15/21 [History] SUMAtriptan SUCCINATE [Imitrex] 100 mg PO DAILY PRN 04/15/21 [History] Topiramate [Trokendi Xr] 100 mg PO DAILY 04/15/21 [History] amLODIPine [Norvasc] 5 mg PO DAILY 04/15/21 [History] busPIRone HCl [Buspar] 20 mg PO QID 04/15/21 [History] tiZANidine [Zanaflex] 2 mg PO TID PRN 04/15/21 [History] hydrOXYzine pamoate [Vistaril] 50 mg PO TID PRN 04/16/21 [History] Albuterol Sulfate [Proair Hfa] 2 puff INHALATION RT-QID PRN 05/10/21 [History] Amitriptyline HCl [Elavil] 100 mg PO HS 05/10/21 [History] Butalb/Asprin/Caff 50-325-40Mg [Fiorinal 50-325-40 MG] 1 cap PO Q8H PRN 05/10/21 [History] Colchicine [Mitigare] 0.6 mg PO BID 05/10/21 [History] Diclofenac Potassium [Cataflam] 50 mg PO TID 05/10/21 [History] Eslicarbazepine Acetate [Aptiom] 800 mg PO DAILY 05/10/21 [History] Etodolac [Lodine] 300 mg PO DAILY 05/10/21 [History] Furosemide [Lasix] 20 mg PO DAILY 05/10/21 [History] Linaclotide [Linzess] 290 mcg PO DAILY 05/10/21 [History] Potassium Chloride ER [K-Dur 10] 10 meq PO DAILY 05/10/21 [History] Prazosin HCl [Minipress] 4 mg PO DAILY@1700 05/10/21 [History] Prazosin HCl [Minipress] 6 mg PO HS 05/10/21 [History] Tiotropium 18 Mcg/Puff [Spiriva] 1 puff INHALATION RT-DAILY 05/10/21 [History] rOPINIRole HCL [Requip] 1 mg PO BID 05/10/21 [History] rOPINIRole HCL [Requip] 2 mg PO BID 05/10/21 [History] Docusate Sodium [Dok] 100 mg PO BID PRN #20 cap 05/23/21 [Rx] Mometasone/Formoterol [Dulera 200 Mcg-5 Mcg Inhaler] 2 puff INHALATION RT-BID 05/24/21 [History] predniSONE See Taper PO DAILY 05/24/21 [History] Follow up Appointment(s)/Referral(s): Adonay Agee MD [Medical Doctor] - 1 Week Harpreet Ballard MD [Primary Care Provider] - 1-2 days Discharge Disposition: Left Against Medical Advice
== END 2021-05-25 08:48 | disposition left against medical advice (07) ==
LOC: EC 22:48 → INTOOBSV 23:42 → 4SSUR 23:42 → UNDODISIN 05-25 08:48
PROVIDERS: ADMIT Internal Medicine Geriatric Medicine; ATTEND Internal Medicine Geriatric Medicine
DX: K62.3 Rectal prolapse (principal); N39.0 Urinary tract infection, site not specified; J44.1 Chronic obstructive pulmonary disease with (acute) exacerbation; I11.0 Hypertensive heart disease with heart failure; I50.9 Heart failure, unspecified; E03.9 Hypothyroidism, unspecified; F31.9 Bipolar disorder, unspecified; F43.10 Post-traumatic stress disorder, unspecified; F41.1 Generalized anxiety disorder; F60.3 Borderline personality disorder; J30.2 Other seasonal allergic rhinitis; K21.9 Gastro-esophageal reflux disease without esophagitis; G40.909 Epilepsy, unspecified, not intractable, without status epilepticus; M1A.9XX0 Chronic gout, unspecified, without tophus (tophi); G25.81 Restless legs syndrome; G43.909 Migraine, unspecified, not intractable, without status migrainosus; K58.1 Irritable bowel syndrome with constipation; M79.7 Fibromyalgia; M79.89 Other specified soft tissue disorders; L98.9 Disorder of the skin and subcutaneous tissue, unspecified; N20.0 Calculus of kidney; R00.0 Tachycardia, unspecified; E86.0 Dehydration; R41.3 Other amnesia; M19.90 Unspecified osteoarthritis, unspecified site; E55.9 Vitamin D deficiency, unspecified; N63.20 Unspecified lump in the left breast, unspecified quadrant; I25.2 Old myocardial infarction; F17.210 Nicotine dependence, cigarettes, uncomplicated; E78.5 Hyperlipidemia, unspecified; K29.70 Gastritis, unspecified, without bleeding; K64.9 Unspecified hemorrhoids; I31.3 Pericardial effusion (noninflammatory); K44.9 Diaphragmatic hernia without obstruction or gangrene; Z20.822 Contact with and (suspected) exposure to COVID-19; Z53.29 Procedure and treatment not carried out because of patient's decision for other reasons; Z87.01 Personal history of pneumonia (recurrent); Z91.81 History of falling; Z79.51 Long term (current) use of inhaled steroids; Z79.52 Long term (current) use of systemic steroids; Z79.890 Hormone replacement therapy; Z79.899 Other long term (current) drug therapy; Z88.6 Allergy status to analgesic agent; Z91.030 Bee allergy status; Z86.718 Personal history of other venous thrombosis and embolism; Z86.711 Personal history of pulmonary embolism; Z90.710 Acquired absence of both cervix and uterus; Z90.49 Acquired absence of other specified parts of digestive tract; Z80.0 Family history of malignant neoplasm of digestive organs; Z82.49 Family history of ischemic heart disease and other diseases of the circulatory system; Z81.8 Family history of other mental and behavioral disorders
CPT/HCPCS: 96376; 96361; 96365; 96366 ×2; 96367; 96375 ×2; 99285; 36415; 94640; 93005 ×2; 86900; 86901; 80053 ×3; 83605; 83735 ×2; 84100 ×2; 84484 ×2; 85025 ×3; 85610; 85730; 86850; 81001 ×2; 87086; 87635; 71045; 74177; G0378 ×2; J2060; J2270; J1940; J1956; J3475; J0295 ×2; Q9967

== ENCOUNTER 2021-06-10 01:58 | Emergency (ER) | payer OTHER ==
[2021-06-10 02:08] VITALS: TEMP 97.9
--- NOTE | 2021-06-10 03:05 | XR ---
EXAMINATION TYPE: XR chest 2V DATE OF EXAM: 06/10/2021 COMPARISON: 05/24/2021 HISTORY: Chest pain TECHNIQUE: 2 views FINDINGS: Heart and mediastinum are normal. Lungs are clear. Diaphragm is normal. There are chest gavin ds. Bony thorax is intact. IMPRESSION: Normal chest. No change.
[2021-06-10 03:09] LABS: Anisocytosis Slight; Basophils # (A) 0.1 k/uL (0-0.2); Basophils % (A) 0 %; Eosinophils # (A) 0.2 k/uL (0-0.7); Eosinophils % (A) 2 %; HCT 34.3 % (34.0-46.0); Lymphocytes # (A) 2.6 k/uL (1.0-4.8); Lymphocytes % (A) 22 %; MCH 34.1 pg (25.0-35.0); Macrocytosis Marked; Monocytes # (A) 0.6 k/uL (0-1.0); Monocytes % (A) 5 %; Neutrophils % (A) 69 %; Platelet Count 691 k/uL (150-450); RBC 3.22 m/uL (3.80-5.40); WBC 11.6 k/uL (3.8-10.6)
[2021-06-10 03:11] LABS: MCV 106.4 fL (80.0-100.0)
[2021-06-10 03:13] LABS: Albumin 2.9 g/dL (3.5-5.0); Calcium 8.7 mg/dL (8.4-10.2); INR 0.9 (<1.2); Partial Thromboplastin Time 23.5 sec (22.0-30.0); Potassium 3.6 mmol/L (3.5-5.1); Total Bilirubin 0.3 mg/dL (0.2-1.3); Total Protein 5.9 g/dL (6.3-8.2)
[2021-06-10 03:28] LABS: Magnesium 0.8 mg/dL (1.6-2.3)
[2021-06-10] MEDS ORDERED: MAGNESIUM OXIDE 400 MG TAB PO STA (04:37)
[2021-06-10] MEDS ORDERED: MAGNESIUM SULFATE-D5W PMX 1 GM in DEXTROSE/WATER 1 100ML.BAG IVPB ONE (04:37)
[2021-06-10] MEDS ORDERED: ALBUTEROL NEBULIZED 2.5 MG/3 ML INHALATION STA (04:38)
[2021-06-10 04:55] VITALS: RESP 20
[2021-06-10] MEDS ORDERED: SODIUM CHLORIDE 0.9% 500 ML 500 ML IV STA (05:01)
--- NOTE | 2021-06-10 06:03 | ED ---
General Adult HPI - General Chief complaint: Chest Pain Stated complaint: Chest Pains Time Seen by Provider: 06/10/21 02:16 Source: patient Mode of arrival: ambulatory - Related Data Home Medications Medication Instructions Recorded Confirmed Albuterol Nebulized [Ventolin 2.5 mg INHALATION RT-Q4H 04/30/17 05/24/21 Nebulized] Asenapine Maleate [Saphris] 10 mg SUBLINGUAL BID 04/30/17 05/24/21 Sertraline [Zoloft] 250 mg PO DAILY 04/30/17 05/24/21 Atorvastatin [Lipitor] 40 mg PO HS 05/24/17 05/24/21 Loratadine [Claritin] 10 mg PO DAILY 05/24/17 05/24/21 Pantoprazole Sodium [Protonix] 40 mg PO BID 01/07/19 05/24/21 Asenapine Maleate [Saphris] 2.5 mg SUBLINGUAL DAILY PRN 04/15/21 05/24/21 Brivaracetam [Briviact] 10 mg PO BID 04/15/21 05/24/21 Clobazam [Sympazan] 10 mg PO BID 04/15/21 05/24/21 Docusate [Colace] 100 mg PO HS 04/15/21 05/24/21 Gabapentin 800 mg PO TID 04/15/21 05/24/21 Propranolol [Inderal] 40 mg PO BID 04/15/21 05/24/21 SUMAtriptan SUCCINATE [Imitrex] 100 mg PO DAILY PRN 04/15/21 05/24/21 Topiramate [Trokendi Xr] 100 mg PO DAILY 04/15/21 05/24/21 amLODIPine [Norvasc] 5 mg PO DAILY 04/15/21 05/24/21 busPIRone HCl [Buspar] 20 mg PO QID 04/15/21 05/24/21 tiZANidine [Zanaflex] 2 mg PO TID PRN 04/15/21 05/24/21 hydrOXYzine pamoate [Vistaril] 50 mg PO TID PRN 04/16/21 05/24/21 Albuterol Sulfate [Proair Hfa] 2 puff INHALATION RT-QID PRN 05/10/21 05/24/21 Amitriptyline HCl [Elavil] 100 mg PO HS 05/10/21 05/24/21 Butalb/Asprin/Caff 50-325-40Mg 1 cap PO Q8H PRN 05/10/21 05/24/21 [Fiorinal 50-325-40 MG] Colchicine [Mitigare] 0.6 mg PO BID 05/10/21 05/24/21 Diclofenac Potassium [Cataflam] 50 mg PO TID 05/10/21 05/24/21 Eslicarbazepine Acetate [Aptiom] 800 mg PO DAILY 05/10/21 05/24/21 Etodolac [Lodine] 300 mg PO DAILY 05/10/21 05/24/21 Furosemide [Lasix] 20 mg PO DAILY 05/10/21 05/24/21 Linaclotide [Linzess] 290 mcg PO DAILY 05/10/21 05/24/21 Potassium Chloride ER [K-Dur 10] 10 meq PO DAILY 05/10/21 05/24/21 Prazosin HCl [Minipress] 4 mg PO DAILY@1700 05/10/21 05/24/21 Prazosin HCl [Minipress] 6 mg PO HS 05/10/21 05/24/21 Tiotropium 18 Mcg/Puff [Spiriva] 1 puff INHALATION RT-DAILY 05/10/21 05/24/21 rOPINIRole HCL [Requip] 1 mg PO BID 05/10/21 05/24/21 rOPINIRole HCL [Requip] 2 mg PO BID 05/10/21 05/24/21 Mometasone/Formoterol [Dulera 200 2 puff INHALATION RT-BID 05/24/21 05/24/21 Mcg-5 Mcg Inhaler] predniSONE See Taper PO DAILY 05/24/21 05/24/21 Previous Rx's Medication Instructions Recorded EPINEPHrine (Auto Inject) [Epipen] 0.3 mg IM ONCE PRN #1 syringe 08/28/16 Levothyroxine Sodium [Synthroid] 75 mcg PO DAILY #30 tab 08/28/16 Docusate Sodium [Dok] 100 mg PO BID PRN #20 cap 05/23/21 Magnesium Oxide [Mag-Ox] 400 mg PO BID #40 tablet 06/10/21 Allergies Allergy/AdvReac Type Severity Reaction Status Date / Time bee venom protein (honey bee) Allergy Anaphylaxis Verified 05/24/21 00:00 ibuprofen [From Motrin] AdvReac Nausea & Verified 05/24/21 00:00 Vomiting & Diarrhea Review of Systems ROS Statement: Those systems with pertinent positive or pertinent negative responses have been documented in the HPI. ROS Other: All systems not noted in ROS Statement are negative. Past Medical History Past Medical History: Asthma, Heart Failure, COPD, Eye Disorder, Fibromyalgia, GERD/Reflux, Hyperlipidemia, Hypertension, Memory Impairment, Myocardial Infarction ([place]), Osteoarthritis (OA), Pneumonia, Seizure Disorder, Skin Disorder, Syncope, Thyroid Disorder Additional Past Medical History / Comment(s): IBS, colitis, restless legs flexed syndrome, daily migraines, Vitamin D deficiency, benign left breast mass, gastritis, short term memory loss. Vision - "sees an orange aura." BILAT CATARACTS Last seizure 04/15/21, PT STATES THAT DR. VILLALBA IS AWARE"Legs are weak and balance is off." FELL SAT. AND INJURED TAILBONE, checked bone marrow for cancer Last Myocardial Infarction Date:: unknown History of Any Multi-Drug Resistant Organisms: None Reported Past Surgical History: Appendectomy, Hysterectomy, Orthopedic Surgery, Uterine Ablation Additional Past Surgical History / Comment(s): D&C, bilateral knee arthroscopy. Past Anesthesia/Blood Transfusion Reactions: No Reported Reaction Past Psychological History: Anxiety, Bipolar, Depression, PTSD Smoking Status: Current every day smoker Past Alcohol Use History: None Reported Past Drug Use History: Marijuana - Past Family History Father Family Medical History: Cancer Additional Family Medical History / Comment(s): Father of pancreatic cancer at the age of 62yrs. Mother Family Medical History: Congestive Heart Failure (CHF) Additional Family Medical History / Comment(s): Mother of CHF at the age of 60yrs. Brother(s) Additional Family Medical History / Comment(s): Patient had 1 brother that at 5 months of age. Sister(s) Additional Family Medical History / Comment(s): Patient has one sister with history of depression and bipolar. Patient has 2 half-sisters and one at age 26 from overdose. Patient does not have any children. Course Vital Signs 06/10/21 06/10/21 06/10/21 02:03 02:28 04:03 Temperature 97.9 F Pulse Rate 112 H 131 H Respiratory 20 24 20 Rate Blood Pressure 82/50 92/59 O2 Sat by Pulse 96 95 Oximetry 06/10/21 06/10/21 05:17 05:40 Temperature Pulse Rate 115 H 125 H Respiratory 20 Rate Blood Pressure 114/60 O2 Sat by Pulse 97 Oximetry Procedures - [place] Protocol (Time Out) Nurse: Nikita Neville Medical Decision Making - Lab Data Result diagrams: 06/10/21 02:54 06/10/21 02:54 Lab Results 06/10/21 06/10/21 06/10/21 Range/Units 02:54 02:54 02:54 WBC 11.6 H (3.8-10.6) k/uL RBC 3.22 L (3.80-5.40) m/uL Hgb 11.0 L (11.4-16.0) gm/dL Hct 34.3 (34.0-46.0) % MCV 106.4 H (80.0-100.0) fL MCH 34.1 (25.0-35.0) pg MCHC 32.0 (31.0-37.0) g/dL RDW 19.0 H (11.5-15.5) % Plt Count 691 H (150-450) k/uL MPV 7.0 Neutrophils % 69 % Lymphocytes % 22 % Monocytes % 5 % Eosinophils % 2 % Basophils % 0 % Neutrophils # 8.0 H (1.3-7.7) k/uL Lymphocytes # 2.6 (1.0-4.8) k/uL Monocytes # 0.6 (0-1.0) k/uL Eosinophils # 0.2 (0-0.7) k/uL Basophils # 0.1 (0-0.2) k/uL Anisocytosis Slight Macrocytosis Marked A PT 10.0 (9.0-12.0) sec INR 0.9 (<1.2) APTT 23.5 (22.0-30.0) sec Sodium 137 (137-145) mmol/L Potassium 3.6 (3.5-5.1) mmol/L Chloride 105 (98-107) mmol/L Carbon Dioxide 24 (22-30) mmol/L Anion Gap 8 mmol/L BUN 19 H (7-17) mg/dL Creatinine 1.09 H (0.52-1.04) mg/dL Est GFR (CKD-EPI)AfAm 69 (>60 ml/min/1.73 sqM) Est GFR (CKD-EPI)NonAf 60 (>60 ml/min/1.73 sqM) Glucose 112 H (74-99) mg/dL Calcium 8.7 (8.4-10.2) mg/dL Magnesium 0.8 L* (1.6-2.3) mg/dL Total Bilirubin 0.3 (0.2-1.3) mg/dL AST 30 (14-36) U/L ALT 15 (4-34) U/L Alkaline Phosphatase 117 (38-126) U/L Troponin I (0.000-0.034) ng/mL NT-Pro-B Natriuret Pep pg/mL Total Protein 5.9 L (6.3-8.2) g/dL Albumin 2.9 L (3.5-5.0) g/dL 06/10/21 06/10/21 Range/Units 02:54 02:54 WBC (3.8-10.6) k/uL RBC (3.80-5.40) m/uL Hgb (11.4-16.0) gm/dL Hct (34.0-46.0) % MCV (80.0-100.0) fL MCH (25.0-35.0) pg MCHC (31.0-37.0) g/dL RDW (11.5-15.5) % Plt Count (150-450) k/uL MPV Neutrophils % % Lymphocytes % % Monocytes % % Eosinophils % % Basophils % % Neutrophils # (1.3-7.7) k/uL Lymphocytes # (1.0-4.8) k/uL Monocytes # (0-1.0) k/uL Eosinophils # (0-0.7) k/uL Basophils # (0-0.2) k/uL Anisocytosis Macrocytosis PT (9.0-12.0) sec INR (<1.2) APTT (22.0-30.0) sec Sodium (137-145) mmol/L Potassium (3.5-5.1) mmol/L Chloride (98-107) mmol/L Carbon Dioxide (22-30) mmol/L Anion Gap mmol/L BUN (7-17) mg/dL Creatinine (0.52-1.04) mg/dL Est GFR (CKD-EPI)AfAm (>60 ml/min/1.73 sqM) Est GFR (CKD-EPI)NonAf (>60 ml/min/1.73 sqM) Glucose (74-99) mg/dL Calcium (8.4-10.2) mg/dL Magnesium (1.6-2.3) mg/dL Total Bilirubin (0.2-1.3) mg/dL AST (14-36) U/L ALT (4-34) U/L Alkaline Phosphatase (38-126) U/L Troponin I <0.012 (0.000-0.034) ng/mL NT-Pro-B Natriuret Pep 89 pg/mL Total Protein (6.3-8.2) g/dL Albumin (3.5-5.0) g/dL Disposition Clinical Impression: Hypomagnesemia, COPD (chronic obstructive pulmonary disease) Disposition: HOME SELF-CARE Condition: Fair Instructions (If sedation given, give patient instructions): Hypomagnesemia (ED), COPD (Chronic Obstructive Pulmonary Disease) ([place]) Prescriptions: Magnesium Oxide [Mag-Ox] 400 mg PO BID #40 tablet Is patient prescribed a controlled substance at d/c from ED?: No Referrals: Harpreet Ballard MD [Primary Care Provider] - 1-2 days
[2021-06-10 06:28] VITALS: BP 121/84; PULSE 105
== END 2021-06-10 06:29 | disposition home or self-care (01) ==
LOC: EC 01:58
DX: E83.42 Hypomagnesemia (principal); J44.9 Chronic obstructive pulmonary disease, unspecified; I11.0 Hypertensive heart disease with heart failure; I50.9 Heart failure, unspecified; K21.9 Gastro-esophageal reflux disease without esophagitis; E78.5 Hyperlipidemia, unspecified; I25.2 Old myocardial infarction; M19.90 Unspecified osteoarthritis, unspecified site; E07.9 Disorder of thyroid, unspecified; F41.9 Anxiety disorder, unspecified; F31.9 Bipolar disorder, unspecified; F43.12 Post-traumatic stress disorder, chronic; F17.200 Nicotine dependence, unspecified, uncomplicated; F12.90 Cannabis use, unspecified, uncomplicated; Z88.6 Allergy status to analgesic agent; Z90.49 Acquired absence of other specified parts of digestive tract; Z90.710 Acquired absence of both cervix and uterus
CPT/HCPCS: 99285; 96365; 36415; 94640; 93005; 83880; 80053; 83735; 84484; 85025; 85610; 85730; 71046; J3475

== ENCOUNTER 2021-07-21 01:20 | Emergency (ER) | payer OTHER ==
[2021-07-21 01:29] VITALS: BP 104/63; PULSE 57; RESP 18; TEMP 97.2
--- NOTE | 2021-07-21 01:51 | ED ---
Fall HPI - General Chief Complaint: Fall Stated Complaint: Fall, LT arm numbness Time Seen by Provider: 07/21/21 01:49 Source: patient, RN notes reviewed, old records reviewed Mode of arrival: wheelchair Limitations: no limitations - History of Present Illness Initial Comments: This is a 51-year-old female to the emergency department today. Patient Dese for evaluation after fall. Significant fall with chest wall pain left elbow pain. Pain is significant after fall. Patient has no other complaints no headache follows mechanical in nature. She did fall down something like 8 steps history day pain is and persistent into today. But no significant shortness of breath or other complaints. MD Complaint: fall -: days(s) When Fall Occurred: 24 hours [facility] Fall Witnessed: no Place Fall Occurred: home Loss of Consciousness: none Prolonged Down Time?: no Symptoms Prior to Fall: none Location: chest Location - Extremities: Left: Elbow, Forearm Severity: moderate Severity scale (1-10): 5 Quality: sharp Context: tripped/slipped Associated Symptoms: denies - Related Data Home Medications Medication Instructions Recorded Confirmed Albuterol Nebulized [Ventolin 2.5 mg INHALATION RT-Q4H 04/30/17 05/24/21 Nebulized] Asenapine Maleate [Saphris] 10 mg SUBLINGUAL BID 04/30/17 05/24/21 Sertraline [Zoloft] 250 mg PO DAILY 04/30/17 05/24/21 Atorvastatin [Lipitor] 40 mg PO HS 05/24/17 05/24/21 Loratadine [Claritin] 10 mg PO DAILY 05/24/17 05/24/21 Pantoprazole Sodium [Protonix] 40 mg PO BID 01/07/19 05/24/21 Asenapine Maleate [Saphris] 2.5 mg SUBLINGUAL DAILY PRN 04/15/21 05/24/21 Brivaracetam [Briviact] 10 mg PO BID 04/15/21 05/24/21 Clobazam [Sympazan] 10 mg PO BID 04/15/21 05/24/21 Docusate [Colace] 100 mg PO HS 04/15/21 05/24/21 Gabapentin 800 mg PO TID 04/15/21 05/24/21 Propranolol [Inderal] 40 mg PO BID 04/15/21 05/24/21 SUMAtriptan SUCCINATE [Imitrex] 100 mg PO DAILY PRN 04/15/21 05/24/21 Topiramate [Trokendi Xr] 100 mg PO DAILY 04/15/21 05/24/21 amLODIPine [Norvasc] 5 mg PO DAILY 04/15/21 05/24/21 busPIRone HCl [Buspar] 20 mg PO QID 04/15/21 05/24/21 tiZANidine [Zanaflex] 2 mg PO TID PRN 04/15/21 05/24/21 hydrOXYzine pamoate [Vistaril] 50 mg PO TID PRN 04/16/21 05/24/21 Albuterol Sulfate [Proair Hfa] 2 puff INHALATION RT-QID PRN 05/10/21 05/24/21 Amitriptyline HCl [Elavil] 100 mg PO HS 05/10/21 05/24/21 Butalb/Asprin/Caff 50-325-40Mg 1 cap PO Q8H PRN 05/10/21 05/24/21 [Fiorinal 50-325-40 MG] Colchicine [Mitigare] 0.6 mg PO BID 05/10/21 05/24/21 Diclofenac Potassium [Cataflam] 50 mg PO TID 05/10/21 05/24/21 Eslicarbazepine Acetate [Aptiom] 800 mg PO DAILY 05/10/21 05/24/21 Etodolac [Lodine] 300 mg PO DAILY 05/10/21 05/24/21 Furosemide [Lasix] 20 mg PO DAILY 05/10/21 05/24/21 Linaclotide [Linzess] 290 mcg PO DAILY 05/10/21 05/24/21 Potassium Chloride ER [K-Dur 10] 10 meq PO DAILY 05/10/21 05/24/21 Prazosin HCl [Minipress] 4 mg PO DAILY@1700 05/10/21 05/24/21 Prazosin HCl [Minipress] 6 mg PO HS 05/10/21 05/24/21 Tiotropium 18 Mcg/Puff [Spiriva] 1 puff INHALATION RT-DAILY 05/10/21 05/24/21 rOPINIRole HCL [Requip] 1 mg PO BID 05/10/21 05/24/21 rOPINIRole HCL [Requip] 2 mg PO BID 05/10/21 05/24/21 Mometasone/Formoterol [Dulera 200 2 puff INHALATION RT-BID 05/24/21 05/24/21 Mcg-5 Mcg Inhaler] predniSONE See Taper PO DAILY 05/24/21 05/24/21 Previous Rx's Medication Instructions Recorded EPINEPHrine (Auto Inject) [Epipen] 0.3 mg IM ONCE PRN #1 syringe 08/28/16 Levothyroxine Sodium [Synthroid] 75 mcg PO DAILY #30 tab 08/28/16 Docusate Sodium [Dok] 100 mg PO BID PRN #20 cap 05/23/21 Magnesium Oxide [Mag-Ox] 400 mg PO BID #40 tablet 06/10/21 Allergies Allergy/AdvReac Type Severity Reaction Status Date / Time bee venom protein (honey bee) Allergy Anaphylaxis Verified 07/21/21 01:29 ibuprofen [From Motrin] AdvReac Nausea & Verified 07/21/21 01:29 Vomiting & Diarrhea Review of Systems ROS Statement: Those systems with pertinent positive or pertinent negative responses have been documented in the HPI. ROS Other: All systems not noted in ROS Statement are negative. Past Medical History Past Medical History: Asthma, Heart Failure, COPD, Eye Disorder, Fibromyalgia, GERD/Reflux, Hyperlipidemia, Hypertension, Memory Impairment, Myocardial Infarction ([place]), Osteoarthritis (OA), Pneumonia, Seizure Disorder, Skin Disorder, Syncope, Thyroid Disorder Additional Past Medical History / Comment(s): IBS, colitis, restless legs flexed syndrome, daily migraines, Vitamin D deficiency, benign left breast mass, gastritis, short term memory loss. Vision - "sees an orange aura." BILAT CATARACTS Last seizure 04/15/21, PT STATES THAT DR. VILLALBA IS AWARE"Legs are weak and balance is off." FELL SAT. AND INJURED TAILBONE, checked bone marrow for cancer Last Myocardial Infarction Date:: unknown History of Any Multi-Drug Resistant Organisms: None Reported Past Surgical History: Appendectomy, Hysterectomy, Orthopedic Surgery, Uterine Ablation Additional Past Surgical History / Comment(s): D&C, bilateral knee arthroscopy. Past Anesthesia/Blood Transfusion Reactions: No Reported Reaction Past Psychological History: Anxiety, Bipolar, Depression, PTSD Smoking Status: Current every day smoker Past Alcohol Use History: None Reported Past Drug Use History: Marijuana - Past Family History Father Family Medical History: Cancer Additional Family Medical History / Comment(s): Father of pancreatic cancer at the age of 62yrs. Mother Family Medical History: Congestive Heart Failure (CHF) Additional Family Medical History / Comment(s): Mother of CHF at the age of 60yrs. Brother(s) Additional Family Medical History / Comment(s): Patient had 1 brother that at 5 months of age. Sister(s) Additional Family Medical History / Comment(s): Patient has one sister with history of depression and bipolar. Patient has 2 half-sisters and one at age 26 from overdose. Patient does not have any children. General Exam Limitations: no limitations General appearance: alert, in no apparent distress Head exam: Present: atraumatic, normocephalic, normal inspection Eye exam: Present: normal appearance, PERRL, EOMI. Absent: scleral icterus, conjunctival injection, periorbital swelling ENT exam: Present: normal exam, mucous membranes moist Neck exam: Present: normal inspection. Absent: tenderness, meningismus, lymphadenopathy Respiratory exam: Present: normal lung sounds bilaterally. Absent: respiratory distress, wheezes, rales, rhonchi, stridor Cardiovascular Exam: Present: regular rate, normal rhythm, normal heart sounds, other (Left chest wall tenderness). Absent: systolic murmur, diastolic murmur, rubs, gallop, clicks GI/Abdominal exam: Present: soft, normal bowel sounds. Absent: distended, tenderness, guarding, rebound, rigid Extremities exam: Present: normal inspection, full ROM, normal capillary refill, other (Left elbow pain). Absent: tenderness, pedal edema, joint swelling, calf tenderness Back exam: Present: normal inspection Neurological exam: Present: alert, oriented X3, CN II-XII intact Psychiatric exam: Present: normal affect, normal mood Skin exam: Present: warm, dry, intact, normal color. Absent: rash Course Vital Signs 07/21/21 01:23 Temperature 97.2 F L Pulse Rate 57 L Respiratory 18 Rate Blood Pressure 104/63 O2 Sat by Pulse 95 Oximetry - Reevaluation(s) Reevaluation #1: Medical records reviewed Patient has significant improvement here in the emergency department Patient informed results and questions answered Medical Decision Making - Medical Decision Making 51 female to the emergency department status post fall fall. Arm pain chest wall pain. No acute medical injury from fall patient can be discharged home - EKG Data -: EKG Interpreted by Me (EKG sinus rhythm 93 DC 158 QRS 78 QTc 425) - Radiology Data Radiology results: report reviewed (Forearm x-ray chest and pelvis x-ray are negative for traumatic injury), image reviewed Disposition Clinical Impression: Fall, Chest wall contusion Disposition: HOME SELF-CARE Condition: Good Instructions (If sedation given, give patient instructions): Fall Prevention for Older Adults (ED) Is patient prescribed a controlled substance at d/c from ED?: No Referrals: Harpreet Ballard MD [Primary Care Provider] - 1-2 days
[2021-07-21] MEDS ORDERED: HYDROcodone/APAP 5-325MG 1 EACH TAB PO STA (02:03)
--- NOTE | 2021-07-21 02:30 | XR ---
EXAMINATION TYPE: XR pelvis AP view DATE OF EXAM: 07/21/2021 COMPARISON: NONE HISTORY: None TECHNIQUE: Single view FINDINGS: Pelvic ring is intact. Proximal femurs and hip joints are intact. Sacroiliac joints are int act. IMPRESSION: Negative pelvis x-ray exam.
--- NOTE | 2021-07-21 02:36 | XR ---
EXAMINATION TYPE: XR chest 2V DATE OF EXAM: 07/21/2021 COMPARISON: 07/09/2021 HISTORY: Chest pain TECHNIQUE: FINDINGS: Heart and mediastinum are normal. Lungs are clear of consolidation. There are no hilar mass es. There is minimal pleural thickening on the right lateral chest wall. Costophrenic angles are christopher r. There are no hilar masses. Bony thorax is intact. There is old right-sided healed rib fractures. IMPRESSION: No active cardiomegaly disease. No adverse change.
--- NOTE | 2021-07-21 02:36 | XR ---
EXAMINATION TYPE: XR forearm LT DATE OF EXAM: 07/21/2021 COMPARISON: NONE HISTORY: Fall. Pain TECHNIQUE: 2 views FINDINGS: Radius and ulna appear intact. I see no fracture nor dislocation. Carpal bones are intact. Elbow joint is intact. IMPRESSION: Negative left forearm exam.
== END 2021-07-21 02:49 | disposition home or self-care (01) ==
LOC: EC 01:20
DX: S20.212A Contusion of left front wall of thorax, initial encounter (principal); M25.522 Pain in left elbow; I11.0 Hypertensive heart disease with heart failure; I50.9 Heart failure, unspecified; J44.9 Chronic obstructive pulmonary disease, unspecified; I25.2 Old myocardial infarction; E78.5 Hyperlipidemia, unspecified; K21.9 Gastro-esophageal reflux disease without esophagitis; M79.7 Fibromyalgia; M19.90 Unspecified osteoarthritis, unspecified site; G40.909 Epilepsy, unspecified, not intractable, without status epilepticus; F31.9 Bipolar disorder, unspecified; F41.9 Anxiety disorder, unspecified; F17.200 Nicotine dependence, unspecified, uncomplicated; F12.90 Cannabis use, unspecified, uncomplicated; Z79.890 Hormone replacement therapy; Z79.52 Long term (current) use of systemic steroids; Z79.51 Long term (current) use of inhaled steroids; Z79.899 Other long term (current) drug therapy; W10.9XXA Fall (on) (from) unspecified stairs and steps, initial encounter; Y92.009 Unspecified place in unspecified non-institutional (private) residence as the place of occurrence of the external cause
CPT/HCPCS: 71046; 72170; 93005; 99284

== ENCOUNTER 2021-12-18 09:12 | Emergency (ER) | payer OTHER ==
[2021-12-18 09:23] VITALS: TEMP 97.8
[2021-12-18 09:55] LABS: Basophils # (A) 0.1 k/uL (0-0.2); Basophils % (A) 1 %; Eosinophils # (A) 0.3 k/uL (0-0.7); Eosinophils % (A) 3 %; HCT 44.5 % (34.0-46.0); HGB 14.2 gm/dL (11.4-16.0); Lymphocytes # (A) 2.5 k/uL (1.0-4.8); Lymphocytes % (A) 22 %; MCH 32.6 pg (25.0-35.0); MCHC 31.9 g/dL (31.0-37.0); MCV 102.2 fL (80.0-100.0); Monocytes # (A) 0.4 k/uL (0-1.0); Monocytes % (A) 3 %; Neutrophils % (A) 70 %; Platelet Count 370 k/uL (150-450); RBC 4.36 m/uL (3.80-5.40); RDW 12.4 % (11.5-15.5); WBC 11.5 k/uL (3.8-10.6)
--- NOTE | 2021-12-18 10:03 | ED ---
General Adult HPI - General Chief complaint: Recheck/Abnormal Lab/Rx Stated complaint: pain from fall Time Seen by Provider: 12/18/21 09:33 Source: patient, RN notes reviewed, old records reviewed Mode of arrival: wheelchair Limitations: no limitations - History of Present Illness Initial comments: 51-year-old female presents for evaluation of abnormal laboratory testing and fall which occurred 2 weeks ago. She was seen at an outside hospital and told that she had a low potassium as well as had either fracture or contusion to her hips or pelvis. She'll fall which occurred 2 weeks ago and she has been walking since that time. Patient's denies a more recent trauma after this fall which was evaluated at outside emergency department. She was seen by her primary care physician who recommended she present to the emergency department for reevalua tion. - Related Data Home Medications Medication Instructions Recorded Confirmed Albuterol Nebulized [Ventolin 2.5 mg INHALATION RT-Q4H 04/30/17 05/24/21 Nebulized] Asenapine Maleate [Saphris] 10 mg SUBLINGUAL BID 04/30/17 05/24/21 Sertraline [Zoloft] 250 mg PO DAILY 04/30/17 05/24/21 Atorvastatin [Lipitor] 40 mg PO HS 05/24/17 05/24/21 Loratadine [Claritin] 10 mg PO DAILY 05/24/17 05/24/21 Pantoprazole Sodium [Protonix] 40 mg PO BID 01/07/19 05/24/21 Asenapine Maleate [Saphris] 2.5 mg SUBLINGUAL DAILY PRN 04/15/21 05/24/21 Brivaracetam [Briviact] 10 mg PO BID 04/15/21 05/24/21 Clobazam [Sympazan] 10 mg PO BID 04/15/21 05/24/21 Docusate [Colace] 100 mg PO HS 04/15/21 05/24/21 Gabapentin 800 mg PO TID 04/15/21 05/24/21 Propranolol [Inderal] 40 mg PO BID 04/15/21 05/24/21 SUMAtriptan SUCCINATE [Imitrex] 100 mg PO DAILY PRN 04/15/21 05/24/21 Topiramate [Trokendi Xr] 100 mg PO DAILY 04/15/21 05/24/21 amLODIPine [Norvasc] 5 mg PO DAILY 04/15/21 05/24/21 busPIRone HCl [Buspar] 20 mg PO QID 04/15/21 05/24/21 tiZANidine [Zanaflex] 2 mg PO TID PRN 04/15/21 05/24/21 hydrOXYzine pamoate [Vistaril] 50 mg PO TID PRN 04/16/21 05/24/21 Albuterol Sulfate [Proair Hfa] 2 puff INHALATION RT-QID PRN 05/10/21 05/24/21 Amitriptyline HCl [Elavil] 100 mg PO HS 05/10/21 05/24/21 Butalb/Asprin/Caff 50-325-40Mg 1 cap PO Q8H PRN 05/10/21 05/24/21 [Fiorinal 50-325-40 MG] Colchicine [Mitigare] 0.6 mg PO BID 05/10/21 05/24/21 Diclofenac Potassium [Cataflam] 50 mg PO TID 05/10/21 05/24/21 Eslicarbazepine Acetate [Aptiom] 800 mg PO DAILY 05/10/21 05/24/21 Etodolac [Lodine] 300 mg PO DAILY 05/10/21 05/24/21 Furosemide [Lasix] 20 mg PO DAILY 05/10/21 05/24/21 Linaclotide [Linzess] 290 mcg PO DAILY 05/10/21 05/24/21 Potassium Chloride ER [K-Dur 10] 10 meq PO DAILY 05/10/21 05/24/21 Prazosin HCl [Minipress] 4 mg PO DAILY@1700 05/10/21 05/24/21 Prazosin HCl [Minipress] 6 mg PO HS 05/10/21 05/24/21 Tiotropium 18 Mcg/Puff [Spiriva] 1 puff INHALATION RT-DAILY 05/10/21 05/24/21 rOPINIRole HCL [Requip] 1 mg PO BID 05/10/21 05/24/21 rOPINIRole HCL [Requip] 2 mg PO BID 05/10/21 05/24/21 Mometasone/Formoterol [Dulera 200 2 puff INHALATION RT-BID 09/17/21 09/17/21 Mcg-5 Mcg Inhaler] predniSONE See Taper PO DAILY 05/24/21 05/24/21 Previous Rx's Medication Instructions Recorded EPINEPHrine (Auto Inject) [Epipen] 0.3 mg IM ONCE PRN #1 syringe 08/28/16 Levothyroxine Sodium [Synthroid] 75 mcg PO DAILY #30 tab 08/28/16 Docusate Sodium [Dok] 100 mg PO BID PRN #20 cap 05/23/21 Magnesium Oxide [Mag-Ox] 400 mg PO BID #40 tablet 06/10/21 Allergies Allergy/AdvReac Type Severity Reaction Status Date / Time bee venom protein (honey bee) Allergy Anaphylaxis Verified 12/18/21 09:22 ibuprofen [From Motrin] AdvReac Nausea & Verified 12/18/21 09:22 Vomiting & Diarrhea Review of Systems ROS Statement: Those systems with pertinent positive or pertinent negative responses have been documented in the HPI. ROS Other: All systems not noted in ROS Statement are negative. Past Medical History Past Medical History: Asthma, Heart Failure, COPD, Eye Disorder, Fibromyalgia, GERD/Reflux, Hyperlipidemia, Hypertension, Memory Impairment, Myocardial Infarction (CT), Osteoarthritis (OA), Pneumonia, Seizure Disorder, Skin Disorder, Syncope, Thyroid Disorder Additional Past Medical History / Comment(s): IBS, colitis, restless legs flexed syndrome, daily migraines, Vitamin D deficiency, benign left breast mass, gastritis, short term memory loss. Vision - "sees an orange aura." BILAT CATARACTS Last seizure 04/15/21, PT STATES THAT DR. VILLALBA IS AWARE"Legs are weak and balance is off." FELL SAT. AND INJURED TAILBONE, checked bone marrow for cancer Last Myocardial Infarction Date:: unknown History of Any Multi-Drug Resistant Organisms: None Reported Past Surgical History: Appendectomy, Hysterectomy, Orthopedic Surgery, Uterine Ablation Additional Past Surgical History / Comment(s): D&C, bilateral knee arthroscopy. Past Anesthesia/Blood Transfusion Reactions: No Reported Reaction Past Psychological History: Anxiety, Bipolar, Depression, PTSD Smoking Status: Current every day smoker Past Alcohol Use History: None Reported Past Drug Use History: Marijuana - Past Family History Father Family Medical History: Cancer Additional Family Medical History / Comment(s): Father of pancreatic cancer at the age of 62yrs. Mother Family Medical History: Congestive Heart Failure (CHF) Additional Family Medical History / Comment(s): Mother of CHF at the age of 60yrs. Brother(s) Additional Family Medical History / Comment(s): Patient had 1 brother that at 5 months of age. Sister(s) Additional Family Medical History / Comment(s): Patient has one sister with history of depression and bipolar. Patient has 2 half-sisters and one at age 26 from overdose. Patient does not have any children. General Exam Limitations: no limitations General appearance: alert, in no apparent distress Head exam: Present: atraumatic, normocephalic Eye exam: Present: normal appearance, PERRL ENT exam: Present: normal exam Neck exam: Present: normal inspection. Absent: tenderness, meningismus Respiratory exam: Present: normal lung sounds bilaterally. Absent: respiratory distress, wheezes Cardiovascular Exam: Present: regular rate, normal rhythm GI/Abdominal exam: Present: soft. Absent: distended, tenderness, guarding Extremities exam: Present: normal inspection, normal capillary refill. Absent: pedal edema Neurological exam: Present: alert, oriented X3, CN II-XII intact, normal gait. Absent: motor sensory deficit Psychiatric exam: Present: normal affect, normal mood Skin exam: Present: warm, dry, intact. Absent: cyanosis, diaphoretic Course Vital Signs 12/18/21 12/18/21 12/18/21 09:18 10:00 11:00 Temperature 97.8 F Pulse Rate 97 79 87 Respiratory 18 18 16 Rate Blood Pressure 109/77 103/73 112/70 O2 Sat by Pulse 100 98 98 Oximetry EKG Findings - EKG Comments: EKG Findings:: EKG: Sinus rhythm, rate of 89, SC interval 176, QRS duration 89, QTC [address] segment elevation. Medical Decision Making - Medical Decision Making 51-year-old female presents for reevaluation, of hypokalemia and possibility of either pelvis or hip fracture. The fall occurred about 2 weeks ago and she has been ambulatory since that time. Repeat x-rays of the chest and pelvis are obtained and are negative for acute traumatic injury, there is no pneumothorax or pneumonia. She has a mild leukocytosis. She has a normal potassium 3.9. She is in sinus rhythm. I did reevaluate the patient she is resting comfortably she is eager for discharge. I did initially order a urine test but the patient is unable to give this is not having any urinary symptoms and is eager for discharge at this time. She will follow-up with her primary care physician. - Lab Data Result diagrams: 12/18/21 09:49 12/18/21 09:49 Lab Results 12/18/21 12/18/21 12/18/21 Range/Units 09:49 09:49 09:49 WBC 11.5 H (3.8-10.6) k/uL RBC 4.36 (3.80-5.40) m/uL Hgb 14.2 (11.4-16.0) gm/dL Hct 44.5 (34.0-46.0) % MCV 102.2 H (80.0-100.0) fL MCH 32.6 (25.0-35.0) pg MCHC 31.9 (31.0-37.0) g/dL RDW 12.4 (11.5-15.5) % Plt Count 370 (150-450) k/uL MPV 7.0 Neutrophils % 70 % Lymphocytes % 22 % Monocytes % 3 % Eosinophils % 3 % Basophils % 1 % Neutrophils # 8.0 H (1.3-7.7) k/uL Lymphocytes # 2.5 (1.0-4.8) k/uL Monocytes # 0.4 (0-1.0) k/uL Eosinophils # 0.3 (0-0.7) k/uL Basophils # 0.1 (0-0.2) k/uL PT 9.5 (9.0-12.0) sec INR 0.8 (<1.2) APTT 24.6 (22.0-30.0) sec Sodium 140 (137-145) mmol/L Potassium 3.9 (3.5-5.1) mmol/L Chloride 111 H (98-107) mmol/L Carbon Dioxide 20 L (22-30) mmol/L Anion Gap 9 mmol/L BUN 14 (7-17) mg/dL Creatinine 0.67 (0.52-1.04) mg/dL Est GFR (CKD-EPI)AfAm >90 (>60 ml/min/1.73 sqM) Est GFR (CKD-EPI)NonAf >90 (>60 ml/min/1.73 sqM) Glucose 92 (74-99) mg/dL Calcium 9.3 (8.4-10.2) mg/dL Magnesium 1.9 (1.6-2.3) mg/dL Total Bilirubin 0.5 (0.2-1.3) mg/dL AST 20 (14-36) U/L ALT 10 (4-34) U/L Alkaline Phosphatase 115 (38-126) U/L Troponin I (0.000-0.034) ng/mL Total Protein 7.2 (6.3-8.2) g/dL Albumin 3.9 (3.5-5.0) g/dL 12/18/21 Range/Units 09:49 WBC (3.8-10.6) k/uL RBC (3.80-5.40) m/uL Hgb (11.4-16.0) gm/dL Hct (34.0-46.0) % MCV (80.0-100.0) fL MCH (25.0-35.0) pg MCHC (31.0-37.0) g/dL RDW (11.5-15.5) % Plt Count (150-450) k/uL MPV Neutrophils % % Lymphocytes % % Monocytes % % Eosinophils % % Basophils % % Neutrophils # (1.3-7.7) k/uL Lymphocytes # (1.0-4.8) k/uL Monocytes # (0-1.0) k/uL Eosinophils # (0-0.7) k/uL Basophils # (0-0.2) k/uL PT (9.0-12.0) sec INR (<1.2) APTT (22.0-30.0) sec Sodium (137-145) mmol/L Potassium (3.5-5.1) mmol/L Chloride (98-107) mmol/L Carbon Dioxide (22-30) mmol/L Anion Gap mmol/L BUN (7-17) mg/dL Creatinine (0.52-1.04) mg/dL Est GFR (CKD-EPI)AfAm (>60 ml/min/1.73 sqM) Est GFR (CKD-EPI)NonAf (>60 ml/min/1.73 sqM) Glucose (74-99) mg/dL Calcium (8.4-10.2) mg/dL Magnesium (1.6-2.3) mg/dL Total Bilirubin (0.2-1.3) mg/dL AST (14-36) U/L ALT (4-34) U/L Alkaline Phosphatase (38-126) U/L Troponin I <0.012 (0.000-0.034) ng/mL Total Protein (6.3-8.2) g/dL Albumin (3.5-5.0) g/dL Disposition Clinical Impression: Palpitations, Coccyx contusion Disposition: HOME SELF-CARE Condition: Fair Instructions (If sedation given, give patient instructions): Fall Prevention (ED), Contusion in Adults (ED) Is patient prescribed a controlled substance at d/c from ED?: No Referrals: Harpreet Ballard MD [Primary Care Provider] - 1-2 days Time of Disposition: 12:06
[2021-12-18 10:08] LABS: ALT 10 U/L (4-34); AST 20 U/L (14-36); African American GFR (CKD) >90 (>60 ml/min/1.73 sqM); Albumin 3.9 g/dL (3.5-5.0); Alkaline Phosphatase 115 U/L (38-126); Anion Gap 9 mmol/L; Blood Urea Nitrogen 14 mg/dL (7-17); Calcium 9.3 mg/dL (8.4-10.2); Carbon Dioxide 20 mmol/L (22-30); Chloride 111 mmol/L (98-107); Glucose 92 mg/dL (74-99); Magnesium 1.9 mg/dL (1.6-2.3); Non-African American GFR(CKD) >90 (>60 ml/min/1.73 sqM); Potassium 3.9 mmol/L (3.5-5.1); Sodium 140 mmol/L (137-145); Total Bilirubin 0.5 mg/dL (0.2-1.3); Total Protein 7.2 g/dL (6.3-8.2)
[2021-12-18 10:17] LABS: INR 0.8 (<1.2); Partial Thromboplastin Time 24.6 sec (22.0-30.0); Prothrombin Time 9.5 sec (9.0-12.0)
--- NOTE | 2021-12-18 10:34 | XR ---
EXAMINATION TYPE: XR pelvis AP view DATE OF EXAM: 12/18/2021 COMPARISON: NONE HISTORY: Pain The osseous structures are intact and the joint spaces are preserved. No acute fracture is seen. Vi sualized bowel gas pattern is nonspecific. Osteitis pubis condensans. IMPRESSION: 1. No acute fracture.
--- NOTE | 2021-12-18 10:35 | XR ---
EXAMINATION TYPE: XR chest 2V DATE OF EXAM: 12/18/2021 COMPARISON: NONE TECHNIQUE: PA and lateral views submitted. HISTORY: Dysrhythmia FINDINGS: The lungs are clear and there is no pneumothorax, pleural effusion, or focal pneumonia. There is hy perinflation compatible with emphysema. Sclerotic density overlying the right humerus likely related to bone island. Diffuse osteopenia. Multiple remote rib fractures. There are nodule seen at both lung bases most likely in the basis of nipple shadows and could be confirmed with repeat view with nipple markers. IMPRESSION: 1. No acute process. Diffuse emphysematous changes correlate for COPD. 2. Chronic rib deformities correlate for prior trauma. 3. Probable bilateral nipple shadows.
[2021-12-18 11:40] VITALS: BP 112/70; PULSE 87; RESP 16
== END 2021-12-18 12:22 | disposition home or self-care (01) ==
LOC: EC 09:12
DX: S30.0XXA Contusion of lower back and pelvis, initial encounter (principal); R00.2 Palpitations; I11.0 Hypertensive heart disease with heart failure; I50.9 Heart failure, unspecified; J44.9 Chronic obstructive pulmonary disease, unspecified; K21.9 Gastro-esophageal reflux disease without esophagitis; E78.5 Hyperlipidemia, unspecified; I25.2 Old myocardial infarction; M19.90 Unspecified osteoarthritis, unspecified site; G40.909 Epilepsy, unspecified, not intractable, without status epilepticus; F31.9 Bipolar disorder, unspecified; F41.9 Anxiety disorder, unspecified; F17.200 Nicotine dependence, unspecified, uncomplicated; F12.90 Cannabis use, unspecified, uncomplicated; Z79.52 Long term (current) use of systemic steroids; Z79.890 Hormone replacement therapy; Z79.51 Long term (current) use of inhaled steroids; Z79.899 Other long term (current) drug therapy; W19.XXXA Unspecified fall, initial encounter
CPT/HCPCS: 36415; 71046; 72170; 80053; 83735; 84484; 85025; 85610; 85730; 93005; 99284

== ENCOUNTER → 2022-04-08 | Outpatient (CLI) | payer OTHER ==
--- NOTE | 2022-04-08 08:03 | CT ---
EXAMINATION TYPE: CT cervical spine wo con CT DLP: 267.8 mGycm, Automated exposure control for dose reduction was used. DATE OF EXAM: 04/08/2022 7:21 AM COMPARISON: MR C-spine 04/23/2017. CLINICAL INDICATION:Female, 52 years old with history of G95.9 cervical myelopathy, Kyphosis Cervicot horacic, Cervical myelopathy region TECHNIQUE: Axial CT images from the skull base to the inferior aspect of T2 we obtained without intra venous contrast. Coronal and sagittal reformatted images were also reviewed. FINDINGS: Fracture: None. Osseous structures: Multilevel degenerative disc disease changes with endplate spurring and disc oste ophyte complex's. Chronic appearing compression deformity of C7, T1 and T2 superior endplate. Vertebral alignment: Straightening of the cervical alignment. Spinal canal/Neural Foramina: Disc osteophyte complexes at C5-C6 with at least mild spinal canal sten osis. Facet joint uncovertebral joint arthropathy scattered throughout the cervical spine with mild n eural foraminal stenosis. Neck soft tissues: Prevertebral soft tissues are within normal limits. Other: The airway is patent. Paraseptal emphysema with centrilobular emphysema changes are seen withi n lung apices. IMPRESSION: 1. No evidence of cervical spine fracture. 2. Mild to moderate multilevel degenerative disc disease resulting in scattered mild neural foraminal and mild C5-C6 spinal canal stenosis. 3. COPD.
--- NOTE | 2022-04-08 08:08 | CT ---
EXAMINATION TYPE: CT thoracic spine wo con CT DLP: 414.2 mGycm, Automated exposure control for dose reduction was used. DATE OF EXAM: 04/08/2022 7:22 AM COMPARISON: CT chest 03/01/2021. CLINICAL INDICATION:Female, 52 years old with history of M40.204 kyphosis, Kyphosis, Cervicothoracic TECHNIQUE: Axial images of the thoracic spine were obtained without contrast. Coronal and sagittal re formats were performed. FINDINGS: Position. Compression deformity of the L1 vertebrae with near complete height loss anterio r centrally. There is mild retropulsion at this level of 4 mm. Additionally the T1 and T2 superior en dplate compression deformities have increased from prior on 09/08 less than 25% height loss and retropulsion. I do not see any evidence of extradural defects nor significant spinal canal narrowing at any thoracic vertebral body level. The neural foramina are patent. No evidence for disc bulge or h erniation. Scattered mild atherosclerosis. Mild centrilobular emphysema changes are seen within the lungs. IMPRESSION: 1. New from 03/01/2021 L1 vertebral body compression fracture with near complete height loss and 4 mm retropulsion. This appears more subacute to chronic. If this concern for acute fracture considered M RI. 2. Progression of T1 and T2 superior endplate compression deformities with less than 25% height loss . 3. Diffuse osseous demineralization. 4. Mild multilevel disc degeneration changes. 5. Mild COPD changes.
== END | disposition home or self-care (01) ==
LOC: RADCTMAIN 06:45
PROVIDERS: ATTEND Orthopaedic Surgery
DX: M51.34 Other intervertebral disc degeneration, thoracic region (principal); M50.323 Other cervical disc degeneration at C6-C7 level; M40.204 Unspecified kyphosis, thoracic region; G95.9 Disease of spinal cord, unspecified; M99.71 Connective tissue and disc stenosis of intervertebral foramina of cervical region
CPT/HCPCS: 72125; 72128

== ENCOUNTER → 2022-04-15 | Outpatient (CLI) | payer OTHER ==
--- NOTE | 2022-04-16 00:06 | MR ---
EXAMINATION TYPE: MR cspine/tspine wo con DATE OF EXAM: 04/15/2022 COMPARISON: Cervical spine exam 04/23/2017 HISTORY: Neck pain that radiates down arms, and mid back pain, fall 2 months ago. Multiplanar multi echo imaging of the cervical and thoracic spine performed with no contrast. The cervical vertebrae are fairly normal alignment. There is small posterior disc herniation at C4-5. Cervical spinal cord shows no edema. The spinal canal is narrowed to 7 mm at C4-5. There is anterior wedging of the C7 vertebral body 30% without edema. This is consistent with an old fracture. Fractur e appears new compared to old exam. The thoracic vertebra have normal alignment. There is mild wedging of T1 and T2 vertebra tend to 15%. There is L1 anterior wedging 70%. There is no thoracic paraspinal mass. The posterior elements are intact. No focal bone destruction. N o evidence of thoracic spinal stenosis. Thoracic spinal cord shows normal signal pattern. No edema. IMPRESSION: Multiple compression fractures do not show increased signal on the T2 images and I do not suspect an acute fracture. No cervical or thoracic spinal stenosis. There is significant progression of the L1 c ompression fracture compared to the old CT scan of 05/24/2021. There is posterior C4-5 mild cervical disc herniation with 7 mm narrowing of the spinal canal.
== END | disposition home or self-care (01) ==
LOC: RADMRIMAIN 16:38
PROVIDERS: ATTEND Nurse Practitioner Family
DX: M50.321 Other cervical disc degeneration at C4-C5 level (principal); M40.204 Unspecified kyphosis, thoracic region; G95.9 Disease of spinal cord, unspecified
CPT/HCPCS: 72141; 72146

== ENCOUNTER → 2022-05-27 | Outpatient (CLI) | payer OTHER ==
--- NOTE | 2022-05-27 13:58 | XR ---
EXAMINATION TYPE: XR scoliosis survey DATE OF EXAM: 05/27/2022 12:01 PM COMPARISON: CT thorax 04/08/2022. CLINICAL INDICATION:Female, 52 years old with history of M95.3 ACQUIRED DEFORMITY OF NECK; TECHNIQUE: Frontal and lateral views of the spine while standing. FINDINGS: Mild levoscoliosis apex at T4-T5. The remainder of the spine is grossly separate in the anterior post erior imaging. On lateral imaging there is anterior wedge compression deformity of the lower thoracic spine at L1 unchanged from prior imaging. IMPRESSION: 1. Mild levoscoliosis apex at T4. 2. Similar L1 vertebral compression deformity as seen on prior CT.
== END | disposition home or self-care (01) ==
LOC: RADXRMAIN 11:39
PROVIDERS: ATTEND Orthopaedic Surgery
DX: S32.010A Wedge compression fracture of first lumbar vertebra, initial encounter for closed fracture (principal); M95.3 Acquired deformity of neck
CPT/HCPCS: 72082

== ENCOUNTER → 2022-07-16 | Outpatient (CLI) | payer OTHER | END | disposition home or self-care (01) | LOC: LABWHC1 13:53 | PROVIDERS: ATTEND Nurse Practitioner Family | DX: R90.82 White matter disease, unspecified (principal) | CPT/HCPCS: 36415; 82040; 82042; 82784; 83916 ==

== ENCOUNTER → 2022-08-06 | Outpatient (CLI) | payer OTHER ==
--- NOTE | 2022-08-06 13:48 | XR ---
EXAMINATION TYPE: XR chest 2V DATE OF EXAM: 08/06/2022 COMPARISON: 2 view chest x-ray September 13, 2021 HISTORY: 52-year-old female with COPD TECHNIQUE: Frontal and lateral views of the chest are obtained. FINDINGS: There is no focal air space opacity, pleural effusion, or pneumothorax seen. Hyperinflati on of the lung bills is again noted. The cardiac silhouette size is within normal limits. The previo usly seen healed rib fractures are again noted. IMPRESSION: 1. No acute cardiopulmonary process. 2. No significant interval change since previous study of September 13, 2021
== END | disposition home or self-care (01) ==
LOC: RADXRMAIN 12:32
PROVIDERS: ATTEND Nurse Practitioner
DX: J44.0 Chronic obstructive pulmonary disease with (acute) lower respiratory infection (principal)
CPT/HCPCS: 71046

== ENCOUNTER → 2022-10-08 | Outpatient (CLI) | payer OTHER ==
--- NOTE | 2022-10-08 12:28 | MR ---
EXAMINATION TYPE: MR lumbar spine wo con DATE OF EXAM: 10/08/2022 COMPARISON: None HISTORY: LBP, hx fracture, RLE radiculopathy. TECHNIQUE: Multiplanar, multisequence images of the lumbar spine were acquired without IV contrast. L1-L2: Severe wedge compression fracture of L1 with bony retropulsion of 5 mm. Fracture is nonacute i n nature. Severe degenerative disc disease. Mild posterior disc bulge. Mild effacement ventral thecal sac however no evidence for central stenosis or cord contact. L2-L3: Normal disc appearance without desiccation. No herniation, protrusion or disc bulging. No ca nal stenosis is present. Foramina are patent bilaterally. L3-L4: Normal disc appearance without desiccation. No herniation, protrusion or disc bulging. No ca nal stenosis is present. Foramina are patent bilaterally. L4-L5: Normal disc appearance without desiccation. No herniation, protrusion or disc bulging. No ca nal stenosis is present. Foramina are patent bilaterally. L5-S1: Normal disc appearance without desiccation. No herniation, protrusion or disc bulging. No ca nal stenosis is present. Foramina are patent bilaterally. Lumbar segments are intact. No paraspinal masses are identified. Conus medullaris has a normal appe arance. IMPRESSION: 1. Severe nonacute wedge compression fracture at L1 with the bony retropulsion of [address] di [address] desiccation and posterior disc bulge. Effacement ventral thecal sac without evidence for cord comp ression or central stenosis.
== END | disposition home or self-care (01) ==
LOC: RADMRIMAIN 11:33
PROVIDERS: ATTEND Orthopaedic Surgery
DX: S32.011A Stable burst fracture of first lumbar vertebra, initial encounter for closed fracture (principal); M51.16 Intervertebral disc disorders with radiculopathy, lumbar region; X58.XXXA Exposure to other specified factors, initial encounter
CPT/HCPCS: 72148

== ENCOUNTER → 2022-10-08 | Outpatient (CLI) | payer OTHER ==
--- NOTE | 2022-10-08 13:06 | CT ---
EXAMINATION TYPE: CT lumbar spine wo con CT DLP: 337.8 mGycm, Automated exposure control for dose reduction was used. DATE OF EXAM: 10/08/2022 12:44 PM COMPARISON: MRI lumbar spine 10/08/2022. CLINICAL INDICATION:Female, 52 years old with history of S32.001A BURST FRACTURE OF UNSP LUMBAR VERT EBRA; , back pain TECHNIQUE: Multiple axial images were obtained from the midportion of T11 through the sacroiliac eris nts. Soft tissue and bone windows in coronal and sagittal planes were obtained and reviewed. Contrast used: none. Oral contrast used: none. FINDINGS: Alignment: There are 5 lumbar type vertebral bodies. Bone: Compression deformity of the L1 vertebral body with 5 mm retropulsion as seen on prior MRI repo rt. No evidence for posterior element involvement of the anterior wedge compression fracture. The rem ainder of the vertebral bodies have maintained height. No evidence for additional fracture. Minimal d egeneration changes of the spine. Discs: T12-L1: Wedge compression fracture L1 with 5 mm retropulsion without evidence for significant spinal canal stenosis. The neural foramen are patent. L1-L2: No spinal canal or neural foraminal stenosis is identified. L2-L3: No spinal canal or neural foraminal stenosis is identified. L3-L4: No spinal canal or neural foraminal stenosis is identified. L4-L5: No spinal canal or neural foraminal stenosis is identified. L5-S1: No spinal canal or neural foraminal stenosis is identified. Other: Arthrosis course of the arterial vasculature. Nonobstructing bilateral inferior pole 2 mm calc elizabeth. IMPRESSION: Wedge compression fracture at L1 with bony retropulsion of 5 as well as disc desiccation and posterio r disc bulge. No significant spinal cord stenosis.
== END | disposition home or self-care (01) ==
LOC: RADCTMAIN 11:38
PROVIDERS: ATTEND Orthopaedic Surgery
DX: S32.011A Stable burst fracture of first lumbar vertebra, initial encounter for closed fracture (principal)
CPT/HCPCS: 72131

== ENCOUNTER → 2022-12-04 | Outpatient (CLI) | payer OTHER | END | disposition home or self-care (01) | LOC: LABPAT 10:26 | PROVIDERS: ATTEND Orthopaedic Surgery | DX: Z01.812 Encounter for preprocedural laboratory examination (principal); Z22.322 Carrier or suspected carrier of Methicillin resistant Staphylococcus aureus | CPT/HCPCS: 87070 ==

== ENCOUNTER 2022-12-11 10:10 | Inpatient (IN) | payer OTHER ==
--- NOTE | 2022-12-10 07:58 | P.HPOR ---
History of Present Illness H&P Date: 12/08/22 .D:Date: 12/08/22 : 03:41pm .T:Title: [facility] Date of :[birth year] R14 Allergies: Age: 52 year Height: 5'2" Weight: 96 lbs BP:/ BMI: 17.56 kg/m2 Occupation: Disability VAS: 9 CHIEF COMPLAINT: recheck cervical/lumbar spine DOI: Chronic DOS: N/A Duration of current treatment regiment: 10 months HISTORY : Xrays No new xrays taken in office Trauma or injury No Work-Related No Pain description aching, burning, increasing . Location posterior diffuse Patient notes that their pain radiates to bilateral lower extremities Activity Modification yes Hand Dominance right TREATMENTS COMPLETED: 6 weeks of PT completed? Month and Year of last PT date? No Physician directed home exercise completed? Patient has trailed the physician directed home exercise program for greater than 3 months without relief of their symptoms. Medications yes List: Fioricet with mild relief Gabapentin without relief Ibuprofen with mild relief Alternative interventions Chiropractic: yes, without relief Massage therapy: No R.I.C.E: yes heat/ice without relief Brace: No Did it help? No Injections No RFA: No SUBJECTIVE: Ms. Weinstein returns to the office regarding a recheck of their lumbar pain and her pre-op appt for a T11-L3 minimally invasive stabilization. Patient reports no changes to her lumbar pain and continues to have a significant increase in bilateral lower extremity radicular pain. Overall she notes that she is very limited with her daily functionality due to pain. The patient has seen a progressive increase in symptoms since their onset. Patient feels she has exhausted all conservative measures and is looking forward to surgical intervention. She denies any acute concerns. Risks and benefits have been discussed. Patient states all of her questions and concerns have been addressed at this time. Otherwise the patient denies any f/c/sob/cp, no bladder or bowel retention/incontinence, no perineal numbness/tingling, and ambulates independently. HPI: Ms. Weinstein was last seen on 10/30/22 regarding a recheck of their lumbar pain. Patient reports no changes to her lumbar pain but has seen a significant increase in bilateral lower extremity radicular pain with no new injury or trauma. Furthermore the patient does also report a sharp increase in pain about the L1 region without injury, noting an inability to flex/extend, and ambulate any length without severe pain. Overall she notes that she is very limited with her daily functionality due to pain. The patient has seen a progressive increase in symptoms since their onset. Ms. Weinstein symptoms are exacerbated with any standing, ambulation, flexion/extension/twisting of the neck or low back, due to this they notes that it is increasingly difficult for Ms. Weinstein to complete many of their daily tasks. Patient is having severe sleep disturbances as well due to their ongoing pain and associated symptoms. Regarding treatments, the patient has previously trailed all abovementioned treatment modalities without relief of her symptoms. Patient denies trialing any other modalities at this time. Otherwise the patient denies any f/c/sob/cp, no bladder or bowel retention/incontinence, no perineal numbness/tingling, and ambulates independently. Ms. Weinstein returns to the office for a recheck of their cervical pain on 08/13/2022. Patient reports a o changes to her cervical pain but has seen a significant increase in right upper extremity radicular pain with no new injury or trauma. Furthermore the patient does also report a sharp increase in pain about the L1 region without injury, noting an inability to flex/extend, and ambulate any length without severe pain. Overall she notes that she is very limited with her daily functionality due to pain. The patient has seen a progressive increase in symptoms since their onset. Ms. Weinstein symptoms are exacerbated with any standing, ambulation, flexion/extension/twisting of the neck or low back, due to this they notes that it is increasingly difficult for Ms. Weinstein to complete many of their daily tasks. Patient is having severe sleep disturbances as well due to their ongoing pain and associated symptoms. Regarding treatments, the patient has previously trailed all abovementioned treatment modalities without relief of her symptoms. Patient denies trialing any other modalities at this time. Otherwise the patient denies any f/c/sob/cp, no bladder or bowel retention/incontinence, no perineal numbness/tingling, and ambulates independently. Of note the patient reports that she has been compliant with wearing a soft cervical collar. Ms. Weinstein was last seen on 06/05/22 regarding their cervical pain and review of her recent imaging. Patient reports since the time of the last appointment the patient reports that she has seen no improvements to her symptoms. Patient continues to complain of an aching/burning pain about the neck that is radiating into the bilateral upper extremities. In addition to the pain the patient does also complain of numbness and tingling extending diffusely through the bilateral upper extremities. Of note, the patient feels that her head has been progressively leaning forward and has seen a significant loss in cervical ROM and increase in debility with ADL's. For their symptoms, the patient has been taking Tylenol #3 (moderate relief) and Gabapentin (no relief). Otherwise the patient denies any f/c/sob/cp, no incision concerns, no bladder or bowel retention/incontinence, no perineal numbness/tingling, and ambulates independently. Ms. Weinstein last returned to the office on 04/25/2022 for a recheck of their cervical pain. Patient reports a continued cervical pain ongoing for greater than 1 year with no known injury or trauma to indicate an exact onset of their symptoms. In addition to their cervical pain, they do report that it radiates into the bilateral upper extremities, associated with numbness and tingling through the arms diffusely. Overall the patient has seen a progressive increase in symptoms since their onset. Ms. Weinstein symptoms are exacerbated with most daily activities which is significantly impacting her ability to perform daily functions, due to this they notes that it is increasingly difficult for Ms. Weinstein to complete many of their daily tasks. Patient is having severe sleep disturbances as well due to their ongoing pain and associated symptoms. Regarding treatments, the patient has previously trailed all abovementioned treatment modalities without relief of her symptoms. Patient denies trialing any other modalities at this time. For their symptoms, the patient has been taking Tylenol #3 (moderate relief) and Gabapentin (no relief). Otherwise the patient denies any f/c/sob/cp, no incision concerns, no bladder or bowel retention/incontinence, no perineal numbness/tingling, and ambulates independently. Ms. Weinstein last presented to the office on 02/28/2022 for a recheck of her cervical spine on referral from [facility]. Since the time of the last appointment the patient reports that she has seen no improvements to her symptoms. Patient continues to complain of an aching/burning pain about the neck that is radiating into the bilateral upper extremities. In addition to the pain the patient does also complain of numbness and tingling extending diffusely through the bilateral upper extremities. Of note, the patient feels that her head has been progressively leaning forward and has seen a significant loss in cervical ROM and increase in debility with ADL's. Overall she notes that she is very limited in her daily functionality due to her ongoing symptoms. As for treatments, the patient reports that she has trailed the physician recommended home exercise program for the last month without any relief. Furthermore she has trailed Tylenol #3 with moderate/temporary relief of her symptoms lastly the patient has had several cervical JOANN's all without any discernable improvement. The patient denies any lasting improvements with all modalities trailed thus far. Patient denies any f/c/sob/cp, no bladder or bowel retention/incontinence, no perineal numbness/tingling, and ambulates independently. Ms. Weinstein was last seen on 01/29/2022 regarding chronic neck pain that has worsened over the past year. Patient states she is having frequent headaches that start on the right side. Patient states she has nerve damage in bilateral upper extremities, per previous EMG. Patient states she's had numerous falls recently, no known injuries. Patient states she is a patient of Dr. Walsh, has been receiving steroid injections into cervical and lumbar regions, with no relief. she states she has more scheduled in the near future. Patient is currently taking Tylenol 3 and gabapentin. She denies any dizziness and nausea/vomiting. Patient has inflammatory independently. The patients' past social, medical, family, surgical history, as well as review of systems, have been reviewed. Please refer to the Neurosurgery History and Physical form that has been scanned in to our electronic medical record system. 14 points review of systems completed and as stated in HPI, all other systems reviewed are negative. Social History: P3 Social History: .CE:Clinical Elements:Clinical Elements: Smoking: Formert smoker P3 .CE:Clinical Elements:Clinical Elements: Alcohol: none P3 P3 Family History: Reviewed, see appropriate section of the chart for details. P2 Past Medical History: Reviewed, see appropriate section of the chart for details. P1 Current Medications: Rx: gabapentin Ref: 0 Instructions: as directed Rx: unable to provide medication list at this time. , Ref: 0 Rx: ibuprofen 800 mg tablet Ref: 1 Instructions: take 1 tablet (800 mg) by oral route 3 times per day with food Rx: pkjizjztxj-iteaklpjjbagt-drtmerpw 50 mg-300 mg-40 mg capsule Ref: 0 P1 PHYSICAL EXAMINATION: General: Awake, alert, appropriate for age, in no acute distress. HEENT: No unusual neck masses around region of lateral neck triangle, thyroid, supraclavicular groove Extremities: Skin warm and dry without acute lesions, coloration, temperature, skin intact, no tenderness or erythema Integument: Hairy patches: ABSENT Dorsal skin dimples: ABSENT Cafe au lait spots: ABSENT Surgical incisions: NONE Palpation: Please see Pain drawing on Intake sheet for further detail. Midline spinal tenderness: No E6 Cervical Tenderness: No E6 Paralumbar tenderness: No E6 Parathoracic tenderness: No E6 Buttocks tenderness: No E6 Sacroilliac Tenderness: No Pain with ballottment at L1 POSTURAL and MUSCULO-SKELETAL EVALUATION: Coronal Balance: NEUTRAL Recumbent testing: Patient is not able to lay flat on back Sagittal Balance: POSITIVE +4 Shoulder Profile: LEVEL Pelvic Girdle: LEVEL Neck ROM: RESTRICTED Lumbar ROM: RESTRICTED Shoulder ROM: Symmetrical Hip ROM: Symmetrical Knee ROM: Symmetrical Hands: Normal appearance, symmetrical Feet: Normal appearance, Symmetrical Severe chin on chest deformity with cervical kyphosis as well as CT kyphosis. Minimal TTP of the SP or paraspinal areas. There is hyperkyphotic T spine noted as well. VASCULAR STATUS : LEFT RIGHT Wrist Pulses INTACT INTACT Pedal Pulses (Dors. pedis & post.tibialis) INTACT INTACT Color NORMAL NORMAL Edema Absent Absent NEUROLOGIC EXAMINATION: Mental Status:Awake and alert, fully oriented, with normal attention, concentration and memory, and fluent, appropriate speech. Cranial Nerves: I: Olfactory not tested. II: Visual acuity normal, no visual field deficit noted with confrontation. III,IV: Normal pupillary reflexes & intact extraocular movements without nystagmus. V,: Intact symmetrical facial sensation. VII: Intact symmetrical facial motor movement VIII: Hearing intact. IX,X: Intact gag, swallow, & normal voice. XI: Sternocleidomastoid, trapezius function intact. XII: Tongue midline with normal movements. L'hermitte's Sign: Negative / absent Spurling'Sign: Absent bilaterally. Cubital percussion test: Absent bilaterally. Robles-Tinel sign - Carpal region: Absent bilaterally. Straight Leg Raising: Absent bilaterally. Crossed straight leg raise: negative O8 MOTOR EXAM (0-5/5, N/T Muscle appearance: Symmetrical, without signs of atrophy or dystrophy UPPER EXTREMITY RIGHT LEFT Shoulder Abduction 4/5 4/5 Biceps 4/5 4/5 Triceps 4/5 4/5 Wrist Extension 4/5 4/5 Hand Intrnsics 4/5 4/5 Group Director 4/5 4/5 Hand and finger dexterity intact bilaterally? yes Disdiadochokinesis examination negative bilaterally? yes LOWER EXTREMITY RIGHT LEFT Hip Flexion 5/5 5/5 Knee Extension 5/5 5/5 Knee Flexion 5/5 5/5 Dorsiflexion 5/5 5/5 Plantarflexion 5/5 5/5 EHL 4+/5 4+/5 FHL 4+/5 4+/5 Toe heel walk / heel-toe walk intact while maintaining satisfactory balance? No Squatting/straightening w/o assistance to a min of 60 degree knee flexion? No Single leg stance: intact Trendelenburg sign negative bilaterally REFLEXES(0-4/2, NT)Upper ExtremityLower Extremity Right 2 2 Left 2 2 Pathological Reflexes RIGHT LEFT Robles's Present Absent Clonus Absent Absent Babinski Absent Absent Sensory system (0-4, N/T) Test type RU MIRYAM RL LL Joint-Position 2 2 2 2 Vibration 2 2 2 2 Pain & LT sense 2 2 2 2 Dermatomal Deficit: Global decrease None None None Gait and Functional Evaluation: Ambulatory aids: Independent Romberg's test: Intact bilaterally Unsteady Gait RADIOGRAPHIC STUDIE S: MRI Lumbar spine [facility] on 10/08/2022: Images reviewd with pt. L1 burst type fracture that is A/C with newar 80% height loss. No retropulsion. Acute kyphotic deformity noted at this region with measurement around 28 deg of segmental kyphoisis. No other fractures noted at this time. CT Lumbar spine [facility] on 10/08/2022: Redmonstration of the fracture and deformity at l1 with burst type fracture that is due to likely progressive compressive deformity. No retropulsion or stenosis noted. Kyphotic deformity as described above. No other fractures noted. XRay Cervical multiview (Lateral, Flexion, Extension, AP, Oblique) 6 views taken at [facility] on 01/29/22 of Cervical Spine: cervical spine alignment is compromised due to degenerative changes. Grade 1 spondylolisthesis C3 onto C4, C4 onto C5. Loss of disc height throughout cervical spine. No acute osseous abnormalities. Xrays Lumbar Multiview (AP, Lateral, Flexion, Extension) with AP pelvis; 5 views taken on at [facility] of the lumbar Spine and Pelvis: Images reviewed demonstrate overall fairly well maintained alignment of the lumbar spine. There is however a fracture of L1 which is near 95% collapsed causing local kyphosis related to this. This accentuates the kyphosis in this area and my be leading to her flattened thoracic kyphosis which in turn could be leading to her cervical deformity. There is mild coronal deformity. Positive sagittal balance noted. PI is around 58 deg with LL around 50 deg. No other fractures noted. No lesions noted at this time. Xrays taken on 05/27/22 at [facility] Scoliosis Survey: IMPRESSION: 1. Mild levoscoliosis apex at T4. 2. Similar L1 vertebral compression deformity as seen on prior CT. CT taken on 04/15/22 at [facility] Thor[facility] Sp[facility]: Multilevel spondylotic changes with disc dessication, disc height loss as well as facet arthrosis and kyphosis related to deformity. Deformity is likely centered around C7 in the neck as there is an old C7 compression type fracture noted with about 50% height loss. This causes kyphosis of the neck along with spondylotic changes. There is related stenosis through the neck. OC and C1-2 are stable w/o fracture. There is nearly 0 deg of lordosis in c spine with -5 kyphosis. Thoracic spine shows overall flattening of normal kyphosis with spondylotic changes overall. There are old VCF noted at T10 and T12. T12 is the worst with near 80% height loss and resorption of bone. No malignant evident. No other areas of fracture. No instability noted however there is increased kyphosis at this level which lends to the deformity of the thoracic spine. There is only about 10 deg of thoracic kyphosis noted. MRI taken on 04/08/2022 at [facility] Sp[facility]: MRI reflects CT scan above with fractures noted that are old in nature. There is stenosis through the c spine related to spondylotic changes as well as kyphotic deformity with chin on chest deformity. There is no myelomalacia at this time. Thoracic spine shows similar changes as noted above.. There is no significant stenosis related to fractures in the T spine at this time. No myelomalacia of T spine cord. IMPRESSION: It was my pleasure to have seen and examined Rosario. I reviewed the patient's clinical syndrome, physical findings, and imaging studies during the appointment today. It is my impression that the patient has a diagnosis of. 1. L1 A/C burst fracture with kyphotic deformity 2. Severe low back pain, impeding on ADLs 3. UE and LE radiculopathy 4. UE and LE weakness 5. Cervical myelopathy with impending hisb-ce-qhjar deformity as well. 6. Osteoporosis. I outlined the natural course history without intervention and various interventional options. PLAN All options were reviewed today, we decided the best course of action would be: -Advised patient to continue with supplements, health maintenance, and home exercise programs. Patient expressed understanding and will continue with these modalities. - I discussed treatment options with the patient, including operative and non-operative options, and they have elected to proceed with the following surgical procedure: T11-L3 stabilization MIS The indications, risks, benefits, and alternatives to surgery were discussed with the patient at length. Specifically (but not limited to) the risks of infection, stiffness, recurrence of symptoms, need for revision surgery, local numbness, neurovascular injury, and blood clots were discussed. The patient's questions were answered. The decision to proceed was made. Consent will be obtained for the procedure. -Wear TLSO when up and about, do not sleep or shower in it. -Ambulate daily -Take pain medications and post op medications as needed and as directed . -Ice and rest for pain and swelling control. Spine Surgery Risk Review Ms. Weinstein is presenting for evaluation of low back pain. It was my pleasure to have seen and examined Ms. Weinstein. In our visit today we have had a chance to go over subjective complaints, physical examination findings and treatments including the natural course history without intervention and various interventional options. The patients imaging demonstrates: MRI Lumbar spine [facility] on 10/08/2022: Images reviewd with pt. L1 burst type fracture that is A/C with newar 80% height loss. No retropulsion. Acute kyphotic deformity noted at this region with measurement around 28 deg of segmental kyphoisis. No other fractures noted at this time. CT Lumbar spine [facility] on 10/08/2022: Redmonstration of the fracture and deformity at l1 with burst type fracture that is due to likely progressive compressive deformity. No retropulsion or stenosis noted. Kyphotic deformity as described above. No other fractures noted. XRay Cervical multiview (Lateral, Flexion, Extension, AP, Oblique) 6 views taken at [facility] on 01/29/22 of Cervical Spine: cervical spine alignment is compromised due to degenerative changes. Grade 1 spondylolisthesis C3 onto C4, C4 onto C5. Loss of disc height throughout cervical spine. No acute osseous abnormalities. Xrays Lumbar Multiview (AP, Lateral, Flexion, Extension) with AP pelvis; 5 views taken on at [facility] of the lumbar Spine and Pelvis: Images reviewed demonstrate overall fairly well maintained alignment of the lumbar spine. There is however a fracture of L1 which is near 95% collapsed causing local kyphosis related to this. This accentuates the kyphosis in this area and my be leading to her flattened thoracic kyphosis which in turn could be leading to her cervical deformity. There is mild coronal deformity. Positive sagittal balance noted. PI is around 58 deg with LL around 50 deg. No other fractures noted. No lesions noted at this time. Xrays taken on 05/27/22 at [facility] Scoliosis Survey: IMPRESSION: 1. Mild levoscoliosis apex at T4. 2. Similar L1 vertebral compression deformity as seen on prior CT. CT taken on 04/15/22 at [facility]: Multilevel spondylotic changes with disc dessication, disc height loss as well as facet arthrosis and kyphosis related to deformity. Deformity is likely centered around C7 in the neck as there is an old C7 compression type fracture noted with about 50% height loss. This causes kyphosis of the neck along with spondylotic changes. There is related stenosis through the neck. OC and C1-2 are stable w/o fracture. There is nearly 0 deg of lordosis in c spine with -5 kyphosis. Thoracic spine shows overall flattening of normal kyphosis with spondylotic changes overall. There are old VCF noted at T10 and T12. T12 is the worst with near 80% height loss and resorption of bone. No malignant evident. No other areas of fracture. No instability noted however there is increased kyphosis at this level which lends to the deformity of the thoracic spine. There is only about 10 deg of thoracic kyphosis noted. MRI taken on 04/08/2022 at [facility]: MRI reflects CT scan above with fractures noted that are old in nature. There is stenosis through the c spine related to spondylotic changes as well as kyphotic deformity with chin on chest deformity. There is no myelomalacia at this time. Thoracic spine shows similar changes as noted above.. There is no significant stenosis related to fractures in the T spine at this time. No myelomalacia of T spine cord. On physical exam, Ms. Weinstein demonstrates: Patient reports no changes to her lumbar pain but has seen a significant increase in bilateral lower extremity radicular pain with no new injury or trauma. Furthermore the patient does also report a sharp increase in pain about the L1 region without injury, noting an inability to flex/extend, and ambulate any length without severe pain. Overall she notes that she is very limited with her daily functionality due to pain. I have explained to the patient that as their condition progresses it will cause further neurological deficits and eventual paralysis. Based on the patients imaging, physical exam, and the rapid progression and disabling nature of their symptoms, at this time I recommend surgery in the form of a: T11-L3 stabilization MIS. I discussed the risk and benefits of this procedure at length with Ms. Weinstein. The patient spouse agreed to considered pursuing the procedure abovementioned. Prior to surgery, she should follow up with her PCP (Cardio, ID, IM etc) for clearance. Questions were invited and answered, and the patient wishes to proceed as outlined below. Currently, I am recommendin. T11-L3 posterior stabilization 2.Follow up with PCP for surgical clearance 3.Review of surgical risks and benefits as well as an educational packet on the proposed surgical procedure. Risks: All surgical procedures come with inherent risks, including those related to positioning, anesthesia, intraoperative findings, and postoperative complications. It is important to understand that surgery does not come with any guarantee of a successful outcome as complications and adverse events are always possible. The patient was given a handout in office today discussing the surgical proced ure and risks associated with the intervention, both of which were discussed with the patient. These risks include but are not limited to the following: * Experiencing same, different or even worse symptoms in back, neck, arms, or legs compared to before surgery. Requiring further surgery or other forms of treatment presently or at some time in the future at same or other levels of the intended spine surgery. On an extreme but fortunately relatively rare basis severe complication such as blindness, stroke, heart attack, temporary and/or permanent nerve injury, paralysis, coma, or may occur, sometimes without known explanation. Surgical complications may include but are not limited to risk of infection, fluid accumulation in the surgical dissection site, including a seroma or hematoma, that requires additional surgery, wound drainage, bleeding, new numbness or weakness, vision changes/loss, spinal fluid leakage, non-healing and/or infected incision, headaches, difficulty or inability to swallow, hoarseness, hemopneumothorax, pneumothorax, impotence, retrograde ejaculation, vaginal dryness; injury to nerves, spinal cord, blood vessels, lymphatics or other vital organs (i.e., bowel injury, injury to the great vessels); heterotopic bone formation; complications related to the hardware such as screws, rods, cages including misplaced hardware, device failure, instrumentation at the wrong spine level, hardware fracture/breakage, or hardware loosening; vertebral failure of the spinal column above or below the newly placed hardware; retained surgical instrumentations or devices and the need for further surgery. * Medical risks of the planned spine surgery include but are not limited to generalized Infections to the whole body or local areas outside of the surgical site (sepsis), heart attack, bleeding, anaphylaxis, meningitis, seizure, epilepsy, hearing loss, burn lópez, laceration of the head or other areas of the body, bruising, hypersensitivity of the skin, bladder over distension; allergic reaction; shoulder injury related to positioning; fat, blood and air clots to other areas of the body like heart, lungs, brain; failure of internal organs such as lungs, kidneys, liver and excessive bleeding. If blood transfusions are necessary, note that transfusions may cause intolerance reactions such as anaphylaxis or other complex reactions. Despite best efforts, the results of spine surgery might not heal in terms of bone, soft tissues such as skin, fascia, ligaments, and joints. Additionally, in order to achieve best possible results, spine surgery may be carried out beyond the initially planned levels and involve decompression, fusion including insertion of hardware at levels other than the original intended area of surgica l interest change some portions of the procedure in order to ensure the best possible outcomes. With spine surgery and spinal fusion, there are different off label uses of instrumentation (devices, implants and hardware) as well as biological substances (bone morphogenic proteins, demineralized bone matrix) as well as using extra bone from allograft sources (i.e. cadaver bone) or autograft (iliac crest bone, ribs, or the spine itself). The patient has been given information about these practices and their inherent risks and benefits. [facility] is an educational center that serves as a training facility for neurosurgical and orthopedic CONSTRUCTION COORDINATOR and Nursing students. Physician assistants are medically trained surgical providers who function in the outpatient, inpatient, and operating room setting under the direct supervision of the attending surgeon. [facility] has multiple operating rooms with single and overlapping rooms running daily. They currently function under the required guidelines as produced by the [facility] Finance Committee with regards to the overlapping rooms and will continue to comply with changes to this policy as they occur. The requirements include and are complied with as follows: (1) the critical portions of the overlapping rooms will not occur at the same time, (2) the attending physician will be physically present during the critical portions of the procedure and immediately available during the entire case, and (3) a back-up attending is designated should the primary attending not be immediately available. The patient has had a chance to review all the listed information, has been given print outs detailing this information, and has had all his/her questions answered to their satisfaction. It was my pleasure to have seen and examined Ms. Weinstein. In our visit today we have had a chance to go over my understanding of our patient's current condition, the natural course history without intervention and various interventional options. Questions were invited and answered, and the patient wishes to proceed as outlined above. I have seen and examined the patient for 25 minutes and we have spent more than 50% of the time in repeat and detailed counseling about the patient's condition, its natural course history with out and as much as can be predicted with surgery and re-review of various surgical treatment options. In conclusion, Ms. Weinstein and her spouserequested we proceed with the above suggested surgery and are willing to accept risks and limitations of the suggested surgery as nature of the disease process and our best attempts at treatment for the condition. FOLLOW-UP 1 week pre op Pt Education (Informational booklet, instructions, etc) given at today's appointment: Yes .ED:Patient Education: Y Medications Reviewed: YES Attestation: In our visit today Ms. Weinstein and I have had a chance to go over my understanding of the patient's current condition, the natural course history without intervention and various interventional options. Questions were invited and answered, and the patient wishes to proceed as outlined above. I will be sure to keep you updated afterMsLexus Weinstein returns here for further follow-up. Thank you again for your referral. Please do not hesitate to contact me if you have any further questions. Signed and authenticated by: Leonel Massey [facility] [address] [id number] This message is confidential, intended only for the named recipient(s) and may contain information that is privileged or exempt from disclosure under applicable law. If you are not the intended recipient(s), you are notified that the dissemination, distribution or copying of this information is strictly prohibited. If you received this message in error, please notify the sender then delete this message. Patient verbalizes understanding of the information discussed. CC: JOSEPHINE Paul Past Medical History Past Medical History: Asthma, Heart Failure, COPD, Eye Disorder, Fibromyalgia, G ERD/Reflux, Hyperlipidemia, Hypertension, Memory Impairment, Myocardial Infarction (GA), Osteoarthritis (OA), Pneumonia, Seizure Disorder, Skin Disorder, Syncope, Thyroid Disorder Additional Past Medical History / Comment(s): IBS, colitis, restless legs flexed syndrome, daily migraines, Vitamin D deficiency, benign left breast mass, gastritis, short term memory loss. Vision - "sees an orange aura." BILAT CATARACTS Last seizure 04/15/21, PT STATES THAT DR. VILLALBA IS AWARE"Legs are weak and balance is off." FELL SAT. AND INJURED TAILBONE, checked bone marrow for cancer Last Myocardial Infarction Date:: unknown History of Any Multi-Drug Resistant Organisms: None Reported Past Surgical History: Appendectomy, Hysterectomy, Orthopedic Surgery, Uterine Ablation Additional Past Surgical History / Comment(s): D&C, bilateral knee arthroscopy. Past Anesthesia/Blood Transfusion Reactions: No Reported Reaction Past Psychological History: Anxiety, Bipolar, Depression, PTSD Smoking Status: Current every day smoker Past Alcohol Use History: None Reported Past Drug Use History: Marijuana - Past Family History Father Family Medical History: Cancer Additional Family Medical History / Comment(s): Father of pancreatic cancer at the age of 62yrs. Mother Family Medical History: Congestive Heart Failure (CHF) Additional Family Medical History / Comment(s): Mother of CHF at the age of 60yrs. Brother(s) Additional Family Medical History / Comment(s): Patient had 1 brother that at 5 months of age. Sister(s) Additional Family Medical History / Comment(s): Patient has one sister with history of depression and bipolar. Patient has 2 half-sisters and one at age 26 from overdose. Patient does not have any children. Medications and Allergies Home Medications Medication Instructions Recorded Confirmed Type EPINEPHrine (Auto Inject) [Epipen] 0.3 mg IM ONCE PRN #1 syringe 08/28/16 Rx Levothyroxine Sodium [Synthroid] 75 mcg PO DAILY #30 tab 08/28/16 05/24/21 Rx Albuterol Nebulized [Ventolin 2.5 mg INHALATION RT-Q4H 04/30/17 05/24/21 History Nebulized] Asenapine Maleate [Saphris] 10 mg SUBLINGUAL BID 04/30/17 05/24/21 History Sertraline [Zoloft] 250 mg PO DAILY 04/30/17 05/24/21 History Atorvastatin [Lipitor] 40 mg PO HS 05/24/17 05/24/21 History Loratadine [Claritin] 10 mg PO DAILY 05/24/17 05/24/21 History Pantoprazole Sodium [Protonix] 40 mg PO BID 01/07/19 05/24/21 History Asenapine Maleate [Saphris] 2.5 mg SUBLINGUAL DAILY PRN 04/15/21 05/24/21 History Brivaracetam [Briviact] 10 mg PO BID 04/15/21 05/24/21 History Docusate [Colace] 100 mg PO HS 04/15/21 05/24/21 History Gabapentin 800 mg PO TID 04/15/21 05/24/21 History Propranolol [Inderal] 40 mg PO BID 04/15/21 05/24/21 History SUMAtriptan succinate [Imitrex] 100 mg PO DAILY PRN 04/15/21 05/24/21 History Topiramate [Trokendi Xr] 100 mg PO DAILY 04/15/21 05/24/21 History amLODIPine [Norvasc] 5 mg PO DAILY 04/15/21 05/24/21 History busPIRone HCl [Buspar] 20 mg PO QID 04/15/21 05/24/21 History cloBAZam [Sympazan] 10 mg PO BID 04/15/21 05/24/21 History tiZANidine [Zanaflex] 2 mg PO TID PRN 04/15/21 05/24/21 History hydrOXYzine pamoate [Vistaril] 50 mg PO TID PRN 04/16/21 05/24/21 History Albuterol Sulfate [Proair Hfa] 2 puff INHALATION RT-QID PRN 05/10/21 05/24/21 History Amitriptyline HCl [Elavil] 100 mg PO HS 05/10/21 05/24/21 History Butalb/Asprin/Caff 50-325-40Mg 1 cap PO Q8H PRN 05/10/21 05/24/21 History [Fiorinal 50-325-40 MG] Colchicine [Mitigare] 0.6 mg PO BID 05/10/21 05/24/21 History Diclofenac Potassium [Cataflam] 50 mg PO TID 05/10/21 05/24/21 History Eslicarbazepine Acetate [Aptiom] 800 mg PO DAILY 05/10/21 05/24/21 History Etodolac [Lodine] 300 mg PO DAILY 05/10/21 05/24/21 History Furosemide [Lasix] 20 mg PO DAILY 05/10/21 05/24/21 History Linaclotide [Linzess] 290 mcg PO DAILY 05/10/21 05/24/21 History Potassium Chloride ER [K-Dur 10] 10 meq PO DAILY 05/10/21 05/24/21 History Prazosin HCl [Minipress] 4 mg PO DAILY@1700 05/10/21 05/24/21 History Prazosin HCl [Minipress] 6 mg PO HS 05/10/21 05/24/21 History Tiotropium 18 Mcg/Puff [Spiriva] 1 puff INHALATION RT-DAILY 05/10/21 05/24/21 History rOPINIRole HCL [Requip] 1 mg PO BID 05/10/21 05/24/21 History rOPINIRole HCL [Requip] 2 mg PO BID 05/10/21 05/24/21 History Docusate Sodium [Dok] 100 mg PO BID PRN #20 cap 05/23/21 05/24/21 Rx Mometasone/Formoterol [Dulera 200 2 puff INHALATION RT-BID 05/24/21 05/24/21 History Mcg-5 Mcg Inhaler] predniSONE See Taper PO DAILY 05/24/21 05/24/21 History Magnesium Oxide [Mag-Ox] 400 mg PO BID #40 tablet 06/10/21 Rx Allergies Allergy/AdvReac Type Severity Reaction Status Date / Time bee venom protein (honey bee) Allergy Anaphylaxis Verified 12/18/21 09:22 ibuprofen [From Motrin] AdvReac Nausea & Verified 12/18/21 09:22 Vomiting & Diarrhea Physical Examination Osteopathic Statement: *. No significant issues noted on an osteopathic structural exam other than those noted in the History and Physical/Consult.
[~2022-12-11 10:10] MED LIST changes: +ACETAMINOPHEN TAB 500 MG TAB PO PRN; +DEXAMETHASONE SOD PHOSPHATE 4 MG/ML 1 ML VIAL IV ONE; +GABAPENTIN 300 MG CAP PO PRN; +HYDROmorphone 0.5 MG/0.5 ML SYRINGE IVP PRN; -IODINE/POTASS IOD (LUGOLS) 8 ML BTL TOPICAL ONE; +ONDANSETRON 4 MG/2 ML VIAL IVP ONE; +ONDANSETRON 4 MG/2 ML VIAL IVP PRN; +SCOPOLAMINE 1 MG/72 HR PATCH TRANSDERM ONE; +TRANEXAMIC ACID IN NACL,ISO-OS 1,000 MG in SALINE 1 100ML.BAG IVPB PRN; +fentaNYL (PF) 50 MCG/ML 2 ML AMP IV PRN
[2022-12-11] MEDS: LACTATED RINGERS 1,000 ML IV SCH ×2 (11:21→11:42)
[2022-12-11] MEDS ORDERED: MIDAZOLAM 2 MG/2 ML VIAL IV ONE (11:34)
[2022-12-11] MEDS ORDERED: HYDROmorphone (PF) 1 MG/ML ONE (12:11)
[2022-12-11] MEDS ORDERED: GLYCOPYRROLATE 0.2 MG/ML 2 ML VIAL ONE (12:11)
[2022-12-11] MEDS ORDERED: PROPOFOL 10 MG/ML 20 ML VIAL IV ONE (12:11)
[2022-12-11] MEDS ORDERED: SUCCINYLCHOLINE CHLORIDE 200 MG/10 ML VIAL IV ONE (12:11)
[2022-12-11] MEDS ORDERED: ePHEDrine 50 MG/ML 1 ML VIAL ONE (12:11)
[2022-12-11] MEDS ORDERED: SODIUM BICARB 8.4% 50 ML SYR (1 MEQ/ML) ONE (12:11)
[2022-12-11] MEDS ORDERED: LIDOCAINE 2% INJ 20 MG/ML (2 ML VIAL) ONE (12:11)
[2022-12-11] MEDS ORDERED: fentaNYL (PF) 50 MCG/ML 2 ML AMP ONE (12:11)
[2022-12-11] MEDS ORDERED: ROCURONIUM 10 MG/ML (5 ML VIAL) IV ONE (12:11)
[2022-12-11] MEDS ORDERED: TRANEXAMIC ACID IN NACL,ISO-OS 1,000 MG/100 ML BAG ONE (12:11)
[2022-12-11] MEDS ORDERED: NEOSTIGMINE 1 MG/ML 10 ML VIAL ONE (12:11)
[2022-12-11] MEDS ORDERED: THROMBIN (BOVINE) 5,000 UNIT VIAL TOPICAL ONE (12:16)
[2022-12-11] MEDS ORDERED: BUPIVACAIN-EPI 0.25%-1:200,000 30 ML VIAL SQ ONE (12:16)
[2022-12-11] MEDS ORDERED: GELATIN SPONGE,ABSORB (LARGE) 1 EACH SPONGE TOPICAL ONE (12:16)
[2022-12-11] MEDS ORDERED: IOPAMIDOL M200 10 ML VIAL MISCELLANE ONE (12:16)
[2022-12-11 13:38] LABS: Basophils % (A) 0 %; Eosinophils # (A) 0.2 k/uL (0-0.7); Eosinophils % (A) 2 %; HCT 36.6 % (34.0-46.0); HGB 12.5 gm/dL (11.4-16.0); Lymphocytes # (A) 2.6 k/uL (1.0-4.8); Lymphocytes % (A) 32 %; MCH 34.4 pg (25.0-35.0); MCHC 34.2 g/dL (31.0-37.0); MCV 100.7 fL (80.0-100.0); Macrocytosis Slight; Mean Platelet Volume 7.5; Monocytes # (A) 0.3 k/uL (0-1.0); Monocytes % (A) 4 %; Neutrophils # (A) 4.7 k/uL (1.3-7.7); Neutrophils % (A) 58 %; Platelet Count 280 k/uL (150-450); RBC 3.64 m/uL (3.80-5.40); RDW 14.5 % (11.5-15.5); WBC 8.1 k/uL (3.8-10.6)
[2022-12-11 13:47] LABS: Allen Test Performed? Yes
[2022-12-11 13:50] LABS: ABG Base Excess -8.6 mmol/L; ABG HCO3 16 mmol/L (21-25); ABG Oxygen Saturation 98.9 % (94-97); ABG PCO2 32 mmHg (35-45); ABG PH 7.32 (7.35-7.45); ABG PO2 190 mmHg (83-108)
[2022-12-11 13:56] LABS: Potassium 4.1 mmol/L (3.5-5.1)
[2022-12-11] MEDS ORDERED: VANCOMYCIN 1,000 MG VIAL MISCELLANE ONE (14:33)
[2022-12-11] MEDS ORDERED: LACTATED RINGERS 1,000 ML IV ONE (14:42)
[2022-12-11] MEDS ORDERED: SENNOSIDES-DOCUSATE SODIUM 1 EACH TAB PO PRN (15:02)
[2022-12-11] MEDS ORDERED: MAGNESIUM HYDROXIDE 2,400 MG/10 ML CUP PO PRN (15:02)
[2022-12-11] MEDS ORDERED: CYCLOBENZAPRINE 5 MG TAB PO PRN (15:02)
[2022-12-11] MEDS ORDERED: HYDROcodone/APAP 10-325MG 1 EACH TAB PO PRN (15:02)
[2022-12-11] MEDS ORDERED: HYDROcodone/APAP 7.5-325MG 1 EACH TAB PO PRN (15:05)
--- NOTE | 2022-12-11 15:51 | FL ---
EXAMINATION TYPE: FL guidance operating room DATE OF EXAM: 12/11/2022 HISTORY: Fluoroscopy time 54 seconds of fluoroscopy provided. 920.69 DAP. IMPRESSION: 1. Fluoroscopy time.
[2022-12-11 16:01] LABS: African American GFR (CKD) >90 (>60 ml/min/1.73 sqM); Anion Gap 6 mmol/L; Blood Urea Nitrogen 12 mg/dL (7-17); Calcium 8.2 mg/dL (8.4-10.2); Carbon Dioxide 23 mmol/L (22-30); Chloride 107 mmol/L (98-107); Glucose 125 mg/dL (74-99); Non-African American GFR(CKD) >90 (>60 ml/min/1.73 sqM); Potassium 4.1 mmol/L (3.5-5.1); Sodium 136 mmol/L (137-145)
[2022-12-11] MEDS: GABAPENTIN 400 MG CAP PO SCH ×2 (16:36→23:09)
[2022-12-11] MEDS: ACETAMINOPHEN TAB 325 MG TAB PO SCH ×2 (17:07→23:06)
[2022-12-11] MEDS: HYDROmorphone 1 MG/ML 1 ML SYRINGE IVP PRN ×2 (18:38→21:39)
[2022-12-11] MEDS ORDERED: ALBUTEROL HFA INHALER INHALATION PRN (18:50)
[2022-12-11] MEDS ORDERED: SUMAtriptan succinate 50 MG TAB PO PRN (18:50)
--- NOTE | 2022-12-11 18:53 | CT ---
EXAMINATION TYPE: CT lumbar spine wo con DATE OF EXAM: 12/11/2022 6:43 PM COMPARISON: Prior CT October 08, 2012. HISTORY: s/p thoracic/lumbar stabilization pain. Fracture injury. CT DLP: 909.3 mGycm Automated exposure control for dose reduction was used. Unenhanced CT of the lumbar spine was performed. Bone and soft tissue window settings are submitted as well as coronal and sagittal reconstructions. There are 5 lumbar-type vertebra redemonstrated. There are posterior interpedicular rods and screws b ilaterally now running from the T11 level through the L3 level. There is vertebroplasty performed at T11 and L3 levels. There is severe compression fracture deformity involving the L1 vertebra redemonst rated. Vertebral body heights and disc space heights otherwise are preserved. Review of axial images shows right T12 screw to slightly passed through the anterior vertebral body m argin on axial image 49. Lytic destruction of the anterior inferior L1 vertebra is redemonstrated. Th e right L2 screw also slightly passes through the anterior vertebral body margin on axial image 74. S dontrell canal is grossly preserved. Posterior subcutaneous gas and some mild ill-defined fluid is prese nt. There are overlying vertical oriented skin garland. Coronary artery calcification is present. Gal lbladder has distended margins. IMPRESSION: Postsurgical changes to stabilize severe L1 compression fracture as detailed above. Alig nment remains stable and satisfactory.
[2022-12-11] MEDS ORDERED: ALBUTEROL NEBULIZED 2.5 MG/3 ML INHALATION PRN (19:27)
[2022-12-11] MEDS: ALBUTEROL NEBULIZED 2.5 MG/3 ML INHALATION SCH (19:58)
[2022-12-11] MEDS ORDERED: ALBUTEROL NEBULIZED 2.5 MG/3 ML INHALATION SCH (20:00)
[2022-12-11] MEDS ORDERED: BRIVARACETAM PO SCH (21:00)
[2022-12-11] MEDS: ONDANSETRON 4 MG/2 ML VIAL IVP PRN (22:14)
[2022-12-11] MEDS: hydrOXYzine pamoate 25 MG CAP PO SCH (23:07)
[2022-12-11] MEDS: PRAZOSIN 1 MG CAP PO SCH (23:08)
[2022-12-11] MEDS: SENNOSIDES 8.6 MG TAB PO SCH (23:08)
[2022-12-11] MEDS: ATORVASTATIN 40 MG TAB PO SCH (23:09)
[2022-12-11] MEDS: MAGNESIUM OXIDE 400 MG TAB PO SCH (23:09)
[2022-12-11] MEDS: busPIRone HCl 10 MG TAB PO SCH (23:11)
[2022-12-11] MEDS: LEVOTHYROXINE 88 MCG TAB PO SCH (23:11)
[2022-12-12] MEDS: PROPRANOLOL 20 MG TAB PO SCH ×3 (00:05→22:03)
[2022-12-12] MEDS: NON FORMULARY DRUG (Brivaracetam [Briviact] 100 MG) PO SCH ×3 (00:06→22:25)
[2022-12-12] MEDS: CLOBAZAM 10 MG PO SCH ×3 (00:06→22:25)
[2022-12-12] MEDS: HYDROmorphone 1 MG/ML 1 ML SYRINGE IVP PRN ×6 (01:26→19:40)
[2022-12-12] MEDS: LEVOTHYROXINE 88 MCG TAB PO SCH (05:26)
[2022-12-12] MEDS: ACETAMINOPHEN TAB 325 MG TAB PO SCH ×3 (05:26→17:21)
[2022-12-12] MEDS: PANTOPRAZOLE 40 MG TABLET PO SCH ×2 (05:26→16:16)
[2022-12-12] MEDS: ONDANSETRON 4 MG/2 ML VIAL IVP PRN (05:27)
[2022-12-12] MEDS ORDERED: SYMBICORT 80-4.5 MCG INHALER INHALATION SCH (08:00)
[2022-12-12] MEDS ORDERED: IPRATROPIUM 0.5 MG/2.5 ML NEBU INHALATION SCH (08:00)
--- NOTE | 2022-12-12 08:17 | P.OP ---
Date of Procedure: 12/11/22 Preoperative Diagnosis: 1. L1 burst fracture with progressive kyphosis 2. Low back pain 3. Complicated medical patient Postoperative Diagnosis: 1. L1 burst fracture with progressive kyphosis 2. Low back pain 3. Complicated medical patient Procedure(s) Performed: 1. ORIF L1 burst fracture (92793) 2. Segmental stabilization T11-L3 (54580) 3. Use of [place] navigation for screw placement (89289) Use of IONM all screws testing above 20 mA Implants: -[place] -Elvin cement Anesthesia: GETA Surgeon: Leonel Mchugh Grease Cup Filler #1: Bob Small (Was present and assisted with all aspects of the case from positioning to dressing placement) Estimated Blood Loss (ml): 100 IV fluids (ml): 1,500 Urine output (ml): 550 Pathology: none sent Condition: stable Disposition: PACU Indications for Procedure: Ms. Weinstein is presenting for evaluation of low back pain. It was my pleasure to have seen and examined Ms. Weinstein. In our visit today we have had a chance to go over subjective complaints, physical examination findings and treatments including the natural course history without intervention and various interventional options. The patients imaging demonstrates: MRI Lumbar spine [facility] on 10/08/2022: Images reviewd with pt. L1 burst type fracture that is A/C with newar 80% height loss. No retropulsion. Acute kyphotic deformity noted at this region with measurement around 28 deg of segmental kyphoisis. No other fractures noted at this time. CT Lumbar spine [facility] on 10/08/2022: Redmonstration of the fracture and deformity at l1 with burst type fracture that is due to likely progressive compressive deformity. No retropulsion or stenosis noted. Kyphotic deformity as described above. No other fractures noted. XRay Cervical multiview (Lateral, Flexion, Extension, AP, Oblique) 6 views taken at [facility] on 01/29/22 of Cervical Spine: cervical spine alignment is compromised due to degenerative changes. Grade 1 spondylolisthesis C3 onto C4, C4 onto C5. Loss of disc height throughout cervical spine. No acute osseous abnormalities. Xrays Lumbar Multiview (AP, Lateral, Flexion, Extension) with AP pelvis; 5 views taken on at [facility] of the lumbar Spine and Pelvis: Images reviewed demonstrate overall fairly well maintained alignment of the lumbar spine. There is however a fracture of L1 which is near 95% collapsed causing local kyphosis related to this. This accentuates the kyphosis in this area and my be leading to her flattened thoracic kyphosis which in turn could be leading to her cervical deformity. There is mild coronal deformity. Positive sagittal balance noted. PI is around 58 deg with LL around 50 deg. No other fractures noted. No lesions noted at this time. Xrays taken on 05/27/22 at [facility] Scoliosis Survey: IMPRESSION: 1. Mild levoscoliosis apex at T4. 2. Similar L1 vertebral compression deformity as seen on prior CT. CT taken on 04/15/22 at [facility]: Multilevel spondylotic changes with disc dessication, disc height loss as well as facet arthrosis and kyphosis related to deformity. Deformity is likely centered around C7 in the neck as there is an old C7 compression type fracture noted with about 50% height loss. This causes kyphosis of the neck along with spondylotic changes. There is related stenosis through the neck. OC and C1-2 are stable w/o fracture. There is nearly 0 deg of lordosis in c spine with -5 kyphosis. Thoracic spine shows overall flattening of normal kyphosis with spondylotic changes overall. There are old VCF noted at T10 and T12. T12 is the worst with near 80% height loss and resorption of bone. No malignant evident. No other areas of fracture. No instability noted however there is increased kyphosis at this level which lends to the deformity of the thoracic spine. There is only about 10 deg of thoracic kyphosis noted. MRI taken on 04/08/2022 at [facility]: MRI reflects CT scan above with fractures noted that are old in nature. There is stenosis through the c spine related to spondylotic changes as well as kyphotic deformity with chin on chest deformity. There is no myelomalacia at this time. Thoracic spine shows similar changes as noted above.. There is no significant stenosis related to fractures in the T spine at this time. No myelomalacia of T spine cord. On physical exam, Ms. Weinstein demonstrates: Patient reports no changes to her lumbar pain but has seen a significant increase in bilateral lower extremity radicular pain with no new injury or trauma. Furthermore the patient does also report a sharp increase in pain about the L1 region without injury, noting an inability to flex/extend, and ambulate any length without severe pain. Overall she notes that she is very limited with her daily functionality due to pain. I have explained to the patient that as their condition progresses it will cause further neurological deficits and eventual paralysis. Based on the patients imaging, physical exam, and the rapid progression and disabling nature of their symptoms, at this time I recommend surgery in the form of a: T11-L3 stabilization MIS. I discussed the risk and benefits of this procedure at length with Ms. Weinstein. The patient spouse agreed to considered pursuing the procedure abovementioned. Prior to surgery, she should follow up with her PCP (Cardio, ID, IM etc) for clearance. Questions were invited and answered, and the patient wishes to proceed as outlined below. Currently, I am recommendin. T11-L3 posterior stabilization with ORIF L1 burst fracture Description of Procedure: T11-L3 stabilization The patient was seen and examined in the preoperative area. All preoperative pr otocols were followed. Informed consent was obtained, risks and benefits of the procedure were discussed at length. Risks including bleeding infection damage to the surrounding tissue and risk of reoperation were discussed with the patient. Risk of anesthesia up to and including was discussed with the patient. These are outlined in the risk review. They were willing to accept these risks and all of the risks of surgery. The patient was given a weight- based dose of antibiotics in the form of 2 g Ancef. The patient was seen and evaluated by the anesthesia team who deemed them fit for surgery. The site was marked, the patient was willing to proceed with the procedure. The patient was transferred to the operative suite by the Department of anesthesia. They were then drifted off to sleep by the department anesthesia and GETA was performed. The patient tolerated this well. [Howell catheter was placed by nursing staff, atraumatically]. Once confirmation of lines and ventilation the patient was transferred to a [prone Valentino table very carefully]. All bony prominences including wrists, elbows, axilla, chest, hips, and thighs, and feet were padded very well. Special attention was paid to the genitalia and these were padded accordingly. SCDs were placed on bilateral lower extremities and were connected. Arms were well padded and placed [on arm boards up and out in the 90/90 position]. Once in position, again we confirmed good ventilation capabilities and that lines were running appropriately. The patient's thoracolumbar spine was then exposed. 1010s were placed outlining the incision site. Standard alcohol was used to clean the incision site and allowed to dry. C-arm was used to needle localize and then biomark the patient and confirm level for incision which was marked with a skin marker. Operative briefing was performed with all teams and everyone in agreement to proceed. The patient was then prepped and draped in a normal sterile fashion. Timeout was then performed and all parties were in agreement with the procedure to be performed. Needle was then placed again sterilely at the L1 region and skin incision was then made over the SP for the SP tracker placement. It was then draped in a 3-D C-arm and was obtained from the area of interest for Reachable navigation. Once then was registered and confirmed to be accurately the screws were then planned bilateraly from T11 to L3 on Elvin bandar. A navigated sole, followed by bandar tap and bandar screw were then placed into b/l pedicles from T11-L3 and unilateral only at L1 on the right as when this area was accessed to see if it was ammendable to [facility], it was noted that it was not and simply ORIF and stabilization could be done. All screws were then confirmed in good position on AP and Lateral imaging. All screws were then tested and tested well with IONM. T11 and L3 screws were then cemented under pulsed lateral flouroscopy. The patient remained stable throughout cementation and there was no cement extravasation angiogram a myelogram. We then sized and selected rods for the area rods were then placed subfascially through the tulips of each screw. Set screws were then placed and all screws to secure the rods bilaterally.Reduction was performed under lateral flouroscopy for sagittal alignment correction. Set screws were then final tightened and tabs broken off the screws. Final imaging confirmed good placement of rods and screws, good reduction and stabilization. We irrigated the wounds thoroughly with normal sterile saline. The deep fascia was closed with 0 Vicryl superficial subcu closed with 2-0 Vicryl and skin closed with skin garland the wound edges approximated very well. wounds were then cleaned and sterilely dressed without dressings. The patient was transferred back to their hospital bed atraumatically. Patient was then awakened and extubated by the department of anesthesia having tolerated the procedure very well with no complications. They were transferred to the postoperative care unit in stable condition.
--- NOTE | 2022-12-12 08:18 | P.PN ---
Subjective Progress Note Date: 12/12/22 Principal diagnosis: 1. L1 A/C burst fracture with kyphotic deformity 2. Severe low back pain, impeding on ADLs 3. UE and LE radiculopathy 4. UE and LE weakness 5. Cervical myelopathy with impending [id number] deformity as well. 6. Osteoporosis. Patient seen and examined this morning. Patient is resting comfortably in bed. She reports moderate low back pain with activity and she does not feel current medications are managing her pain, medications will be adjusted. Bilateral surgical dressings are clean dry and intact. Patient reports parts feeling more stable when ambulating since procedure. Patient states she has been up to the bedside commode multiple times without difficulty. Patient is inquiring about discharge, explained to patient she needs to work with physical therapy and we need to make sure that her pain is managed under current regimen. Patient denies any numbness or tingling to bilateral lower extremities. She has been afebrile, denies nausea/vomiting, or chest pain. Objective - Vital Signs Vital signs: Vital Signs Temp 98.8 F 12/12/22 01:14 Pulse 98 12/12/22 01:14 Resp 15 12/12/22 01:14 BP 114/73 12/12/22 01:14 Pulse Ox 91 L 12/12/22 01:14 FiO2 Intake & Output 12/11/22 12/12/22 12/12/22 18:59 06:59 18:59 Intake Total 1450 270 Output Total 1050 150 Balance 400 120 Weight 45.7 kg Intake: IV 1450 Intake, IV Titration 270 Amount Lactated Ringers 1,000 ml 220 @ 0 mls/hr IV [facility] Rx#:[id number] ceFAZolin 1,000 mg In 50 Sodium Chloride 0.9% 50 ml @ 100 mls/hr IVPB Q8HR [facility] Rx#:[id number] Output: Urine 950 150 Estimated Blood Loss 100 Other: Voiding Method Indwelling Catheter # Voids 2 - Exam Physical Examination General: The patient is awake and alert, in no acute distress Skin: Skin is warm and dry with no obvious rashes or lesions. Bilateral surgical dressings to the lumbar spine are clean dry and intact. Eye: Pupils are equal, round and reactive to light, extra-ocular movements are intact; there is normal conjunctiva bilaterally. Neck: The neck is supple, there is no tenderness and ROM intact. Cardiovascular: There is a regular rate and rhythm. No murmur, rub or gallop is appreciated. Respiratory: Lungs are clear to auscultation, respirations are non-labored, breath sounds are equal. Gastrointestinal: Soft, non-distended, non-tender abdomen. Back: There is no tenderness to palpation in the midline, paralumbar, parathoracic or buttocks region. There is no obvious deformity . Musculoskeletal: ROM limited secondary to pain and stiffness from surgical procedure. Muscle strength in all major muscle groups of bilateral upper extremities 5/5, bilateral lower extremities 4/5. Neurological: CN 2-12 intact. There are no obvious motor or sensory deficits. Movement and coordination equal and intact. Sensory exam to light touch intact C5-T1 and intact from L2-S1. Reflexes 2/4 in bilateral upper and lower extremities. Negative Hoffmans, babinski, and clonus signs. Psychiatric: Cooperative, appropriate mood & affect, normal judgment. - Labs CBC & Chem 7: 12/11/22 13:19 12/11/22 14:06 Labs: Abnormal Lab Results - Last 24 Hours (Table) 12/11/22 12/11/22 12/11/22 Range/Units 13:19 13:19 13:19 RBC 3.64 L (3.80-5.40) m/uL MCV 100.7 H (80.0-100.0) fL ABG pH 7.32 L (7.35-7.45) ABG pCO2 32 L (35-45) mmHg ABG pO2 190 H (83-108) mmHg ABG HCO3 16 L (21-25) mmol/L ABG O2 Saturation 98.9 H (94-97) % Sodium (137-145) mmol/L Chloride 108 H (98-107) mmol/L Glucose (74-99) mg/dL Calcium (8.4-10.2) mg/dL 12/11/22 Range/Units 14:06 RBC (3.80-5.40) m/uL MCV (80.0-100.0) fL ABG pH (7.35-7.45) ABG pCO2 (35-45) mmHg ABG pO2 (83-108) mmHg ABG HCO3 (21-25) mmol/L ABG O2 Saturation (94-97) % Sodium 136 L (137-145) mmol/L Chloride (98-107) mmol/L Glucose 125 H (74-99) mg/dL Calcium 8.2 L (8.4-10.2) mg/dL Assessment and Plan Assessment: Postop day 1: T11-L3 stabilization with L1 kyphoplasty 1. L1 A/C burst fracture with kyphotic deformity 2. Severe low back pain, impeding on ADLs 3. UE and LE radiculopathy 4. UE and LE weakness 5. Cervical myelopathy with impending [id number]-dyqfq deformity as well. 6. Osteoporosis. Plan: -Appreciate energy consultant and team management. -Activity: Ambulate QID, OOB all meals, up and about, limit lifting bending tw isting to less than 5 lbs. Use walker or cane if needed for stability. -Daily PT/OT, increase ambulation strength and balance. -Brace when up and about, not needed in bed or chair -Pain control: Adequate at this time -Meds: reviewed -GI ppx: senna, Miralax -DVT PPX: OK to restart Heparin tonight -Hygiene: Shower today. Maintain dressing clean and dry. Meticulous cleaning after BMs away from the incision site -Encourage IS 10x/hr -Dispo: Anticipate discharge home later today vs tomorrow with homecare *I reviewed and discussed this case with my attending Dr. Mchugh, whom has reviewed this chart and films and is in agreement with assessment and plan of care as outlined above. I have personally seen and examined the patient, performed the documentation and the assessment and plan as written. Number of minutes spent on the visit: 20m.
[2022-12-12] MEDS: ALBUTEROL NEBULIZED 2.5 MG/3 ML INHALATION SCH ×4 (08:40→21:57)
[2022-12-12] MEDS: HYDROcodone/APAP 10-325MG 1 EACH TAB PO PRN ×4 (08:54→22:04)
[2022-12-12] MEDS: GABAPENTIN 400 MG CAP PO SCH ×3 (09:21→22:04)
[2022-12-12] MEDS: hydrOXYzine pamoate 25 MG CAP PO SCH ×3 (09:23→22:04)
[2022-12-12] MEDS: LORATADINE 10 MG TAB PO SCH (09:24)
[2022-12-12] MEDS: SERTRALINE 100 MG TAB PO SCH (09:24)
[2022-12-12] MEDS: busPIRone HCl 10 MG TAB PO SCH ×3 (09:24→22:03)
[2022-12-12] MEDS: MAGNESIUM OXIDE 400 MG TAB PO SCH ×2 (09:24→22:02)
[2022-12-12] MEDS: TOPIRAMATE 25 MG TAB PO SCH ×2 (09:24→22:03)
[2022-12-12] MEDS: Linaclotide [Linzess] 290 MCG Capsule PO SCH (09:57)
[2022-12-12 11:19] LABS: Basophils # (A) 0.04 X 10*3/uL (0.00-0.10); Basophils % (A) 0.4 %; Eosinophils # (A) 0.01 X 10*3/uL (0.04-0.35); Eosinophils % (A) 0.1 %; HCT 38.3 % (37.2-46.3); HGB 12.2 g/dL (12.0-15.0); Immature Grans, Automated 0.4 %; Lymphocytes # (A) 1.66 X 10*3/uL (0.90-5.00); Lymphocytes % (A) 14.8 %; MCH 33.1 pg (27.0-32.0); MCHC 31.9 g/dL (32.0-37.0); MCV 103.8 fL (80.0-97.0); Mean Platelet Volume 9.5 fL (9.5-12.2); Monocytes # (A) 1.02 X 10*3/uL (0.20-1.00); Monocytes % (A) 9.1 %; NRBC Per 100 WBC 0 /100 WBCS (0.0-0.0); Neutrophils # (A) 8.41 X 10*3/uL (1.80-7.70); Neutrophils % (A) 75.2 %; Platelet Count 290 X 10*3/uL (140-440); RBC 3.69 X 10*6/uL (4.10-5.20); WBC 11.19 X 10*3/uL (4.50-10.00)
[2022-12-12] MEDS: LACTATED RINGERS 1,000 ML IV SCH (12:06)
[2022-12-12 12:33] VITALS: BMI 18.4
[2022-12-12] MEDS: methocarbamoL 750 MG TAB PO SCH ×2 (14:03→22:25)
[2022-12-12] MEDS ORDERED: IPRATROPIUM-ALBUTEROL 3 ML NEB INHALATION PRN (15:08)
[2022-12-12] MEDS ORDERED: IPRATROPIUM 0.5 MG/2.5 ML NEBU INHALATION PRN (15:15)
[2022-12-12] MEDS ORDERED: ALBUTEROL NEBULIZED 2.5 MG/3 ML INHALATION PRN (15:15)
[2022-12-12] MEDS ORDERED: NON FORMULARY DRUG (Gabapentin [Gabapentin] 800 MG Tablet) PO SCH (16:00)
[2022-12-12] MEDS ORDERED: IPRATROPIUM-ALBUTEROL 3 ML NEB INHALATION SCH (16:00)
[2022-12-12] MEDS: IPRATROPIUM 0.5 MG/2.5 ML NEBU INHALATION SCH ×2 (16:02→21:57)
[2022-12-12] MEDS: PRAZOSIN 1 MG CAP PO SCH ×2 (16:15→22:04)
[2022-12-12] MEDS: FUROSEMIDE 20 MG TAB PO SCH (16:16)
[2022-12-12] MEDS ORDERED: ASENAPINE MALEATE 2.5 MG SUBLINGUAL SCH (17:00)
[2022-12-12 19:30] VITALS: RESP 16
[2022-12-12] MEDS ORDERED: SYMBICORT 160-4.5 MCG INHALER INHALATION SCH (20:00)
[2022-12-12] MEDS ORDERED: AMITRIPTYLINE HCL 50 MG TAB PO SCH (21:00)
[2022-12-12] MEDS: ATORVASTATIN 40 MG TAB PO SCH (22:02)
[2022-12-12] MEDS: SENNOSIDES 8.6 MG TAB PO SCH (22:03)
[2022-12-12] MEDS: ASENAPINE MALEATE 10 MG SUBLINGUAL SCH (22:08)
[2022-12-12] MEDS: HYDROmorphone 0.5 MG/0.5 ML SYRINGE IVP PRN (22:48)
[2022-12-13] MEDS: ACETAMINOPHEN TAB 325 MG TAB PO SCH ×3 (00:33→12:00)
--- NOTE | 2022-12-13 01:49 | CONS ---
CONSULTATION REASON FOR CONSULTATION: Advice regarding asthma and other multiple medical issues requested by Orthopedic Surgery. HISTORY OF PRESENT ILLNESS: This is a 52-year-old woman with a past medical history of multiple medical issues including asthma, underwent ORIF of the L1 burst fracture and stabilization. The patient has some shortness of breath. Otherwise, there is no history of any fever, rigors, or chills at this time. The patient is saturating 94% on room air. PAST MEDICAL HISTORY: Reviewed, include asthma. Rest of the history and rest of the chart is also reviewed. HOME MEDICATIONS: Reviewed include rest of medication noted. ALLERGIES: Bee venom. FAMILY HISTORY: History of cancer in the family. SOCIAL HISTORY: History of smoking continued, ongoing. REVIEW OF SYSTEMS: A 14-point review is negative except as mentioned earlier. PHYSICAL EXAMINATION: VITAL SIGNS: Pulse is 82, blood pressure 106/60, respirations 17, temperature normal. HEENT: Conjunctivae normal. NECK: No JVD. CARDIOVASCULAR: S1, S2 muffled. RESPIRATIONS: Few scattered rhonchi and crackles. ABDOMEN: Soft. LEGS: N SKIN: No ulcers. LABORATORY DATA: Reviewed. ASSESSMENT: 1. Status post ORIF of the L1 burst fracture and stabilization. 2. Asthma. 3. Chronic obstructive pulmonary disease. 4. GERD. 5. Hypertension. 6. Hyperlipidemia. 7. History of myocardial infarction. 8. Multiple medical issues. RECOMMENDATIONS: This 52-year-old woman presented after surgery. At this time, I recommend to continue current medications. bronchodilator treatment and continue the rest of medication. DVT prophylaxis. Incentive spirometry. Follow the patient closely. The patient may be asked to follow up with primary care physician closely after discharge. BRIDGETTE / LUKEN: [id number] / MTDD
[2022-12-13] MEDS: HYDROmorphone 0.5 MG/0.5 ML SYRINGE IVP PRN ×2 (01:54→05:21)
[2022-12-13 02:06] VITALS: TEMP 98
[2022-12-13] MEDS: PANTOPRAZOLE 40 MG TABLET PO SCH (06:39)
[2022-12-13] MEDS: LEVOTHYROXINE 88 MCG TAB PO SCH (06:39)
[2022-12-13 07:46] VITALS: BP 121/82; PULSE 93
[2022-12-13] MEDS ORDERED: TRELEGY ELLIPTA INHALER INHALATION SCH (08:00)
[2022-12-13] MEDS: busPIRone HCl 10 MG TAB PO SCH (08:06)
[2022-12-13] MEDS: GABAPENTIN 400 MG CAP PO SCH (08:06)
[2022-12-13] MEDS: PROPRANOLOL 20 MG TAB PO SCH (08:06)
[2022-12-13] MEDS: methocarbamoL 750 MG TAB PO SCH (08:06)
[2022-12-13] MEDS: TOPIRAMATE 25 MG TAB PO SCH (08:06)
[2022-12-13] MEDS: hydrOXYzine pamoate 25 MG CAP PO SCH (08:07)
[2022-12-13] MEDS: HYDROcodone/APAP 10-325MG 1 EACH TAB PO PRN (08:07)
[2022-12-13] MEDS: MAGNESIUM OXIDE 400 MG TAB PO SCH (08:08)
[2022-12-13] MEDS: SERTRALINE 100 MG TAB PO SCH (08:08)
[2022-12-13] MEDS: LORATADINE 10 MG TAB PO SCH (08:08)
[2022-12-13] MEDS: FUROSEMIDE 20 MG TAB PO SCH (08:08)
[2022-12-13] MEDS: ASENAPINE MALEATE 10 MG SUBLINGUAL SCH (08:13)
[2022-12-13] MEDS: Linaclotide [Linzess] 290 MCG Capsule PO SCH (08:23)
[2022-12-13] MEDS ORDERED: POTASSIUM CHLORIDE ER 10 MEQ TAB.ER.PRT PO SCH (09:00)
[2022-12-13] MEDS: ALBUTEROL NEBULIZED 2.5 MG/3 ML INHALATION SCH ×2 (09:04→11:58)
[2022-12-13] MEDS: IPRATROPIUM 0.5 MG/2.5 ML NEBU INHALATION SCH ×2 (09:05→11:58)
[2022-12-13] MEDS: NON FORMULARY DRUG (Brivaracetam [Briviact] 100 MG) PO SCH (09:38)
[2022-12-13] MEDS: CLOBAZAM 10 MG PO SCH (09:38)
[2022-12-13] MEDS: HYDROmorphone 1 MG/ML 1 ML SYRINGE IVP PRN (09:42)
--- NOTE | 2022-12-13 10:26 | P.PN ---
Subjective Progress Note Date: 12/13/22 Principal diagnosis: 1. L1 A/C burst fracture with kyphotic deformity 2. Severe low back pain, impeding on ADLs 3. UE and LE radiculopathy 4. UE and LE weakness 5. Cervical myelopathy with impending [id number]-ijand deformity as well. 6. Osteoporosis. Patient seen and examined this morning. Patient is resting comfortably in bed. She states her pain is being managed on current regimen. Instucted patient if she wants to go home later today, there is no more IV pain medication to be given. Pateint verbalizes understanding. Bilateral surgical dressings are clean dry and intact. Patient states she has been up to the bedside commode multiple times without difficulty. Patient is wanting to be discharged home later today. Patient denies any numbness or tingling to bilateral lower extremities. She has been afebrile, denies nausea/vomiting, or chest pain. Objective - Vital Signs Vital signs: Vital Signs Temp 98.0 F 12/13/22 01:07 Pulse 93 12/13/22 06:55 Resp 16 12/13/22 10:03 BP 121/82 12/13/22 06:55 Pulse Ox 94 L 12/13/22 09:07 FiO2 21 12/13/22 09:07 Intake & Output 12/12/22 12/13/22 12/13/22 18:59 06:59 18:59 Weight 45.7 kg Other: Voiding Method Indwelling Catheter # Voids 2 5 # Bowel Movements 0 - Exam Physical Examination General: The patient is awake and alert, in no acute distress Skin: Skin is warm and dry with no obvious rashes or lesions. Bilateral surgical dressings to the lumbar spine are clean dry and intact. Eye: Pupils are equal, round and reactive to light, extra-ocular movements are intact; there is normal conjunctiva bilaterally. Neck: The neck is supple, there is no tenderness and ROM intact. Cardiovascular: There is a regular rate and rhythm. No murmur, rub or gallop is appreciated. Respiratory: Lungs are clear to auscultation, respirations are non-labored, breath sounds are equal. Gastrointestinal: Soft, non-distended, non-tender abdomen. Back: There is no tenderness to palpation in the midline, paralumbar, parathoracic or buttocks region. There is no obvious deformity . Musculoskeletal: ROM limited secondary to pain and stiffness from surgical procedure. Muscle strength in all major muscle groups of bilateral upper extremities 5/5, bilateral lower extremities 4/5. Neurological: CN 2-12 intact. There are no obvious motor or sensory deficits. Movement and coordination equal and intact. Sensory exam to light touch intact C5-T1 and intact from L2-S1. Reflexes 2/4 in bilateral upper and lower extremities. Negative Hoffmans, babinski, and clonus signs. Psychiatric: Cooperative, appropriate mood & affect, normal judgment. - Labs CBC & Chem 7: 12/12/22 05:11 12/11/22 14:06 Labs: Abnormal Lab Results - Last 24 Hours (Table) 12/12/22 Range/Units 05:11 WBC 11.19 H (4.50-10.00) X 10*3/uL RBC 3.69 L (4.10-5.20) X 10*6/uL MCV 103.8 H (80.0-97.0) fL MCH 33.1 H (27.0-32.0) pg MCHC 31.9 L (32.0-37.0) g/dL RDW 15.0 H (11.5-14.5) % Immature Gran # 0.05 H (0.00-0.04) X 10*3/uL Neutrophils # 8.41 H (1.80-7.70) X 10*3/uL Monocytes # 1.02 H (0.20-1.00) X 10*3/uL Eosinophils # 0.01 L (0.04-0.35) X 10*3/uL Assessment and Plan Assessment: Postop day 2 : T11-L3 stabilization with L1 kyphoplasty 1. L1 A/C burst fracture with kyphotic deformity 2. Severe low back pain, impeding on ADLs 3. UE and LE radiculopathy 4. UE and LE weakness 5. Cervical myelopathy with impending rboq-jw-gwtox deformity as well. 6. Osteoporosis. Plan: -Appreciate nursing consultant and team management. -Activity: Ambulate QID, OOB all meals, up and about, limit lifting bending twisting to less than 5 lbs. Use walker or cane if needed for stability. -Daily PT/OT, increase ambulation strength and balance. -Brace when up and about, not needed in bed or chair -Pain control: Adequate at this time -Meds: reviewed -GI ppx: senna, Miralax -DVT PPX: Heparin -Hygiene: Shower today. Maintain dressing clean and dry. Meticulous cleaning after BMs away from the incision site -Encourage IS 10x/hr -Dispo: Anticipate discharge home later today with homecare *I reviewed and discussed this case with my attending Dr. Mchugh, whom has reviewed this chart and films and is in agreement with assessment and plan of care as outlined above. I have personally seen and examined the patient, performed the documentation and the assessment and plan as written. Number of minutes spent on the visit: 20m.
--- NOTE | 2022-12-13 13:17 | PN ---
PROGRESS NOTE DATE OF SERVICE: 12/13/2022 SUBJECTIVE: This is a 52-year-old woman who was admitted after ORIF L1 burst fracture, is being closely monitored. No chest pain, no palpitations. No fever. OBJECTIVE: VITAL SIGNS: Pulse is 93, blood pressure 120/80, respirations 16. CHEST: Clear to auscultation. CARDIOVASCULAR: S1, S2. ABDOMEN: Soft. BACK: Status post surgery. LABORATORY DATA: Reviewed. ASSESSMENT: 1. Status post open reduction internal fixation of the L1 burst fracture and stabilization. 2. Asthma. 3. Chronic obstructive pulmonary disease. 4. Gastroesophageal reflux disease. 5. Hypertension. 6. Hyperlipidemia. 7. Multiple medical issues. RECOMMENDATIONS AND DISCUSSION: Recommended to continue current management, continue symptomatic treatment. Otherwise at this time resume the home medication, bronchodilators, and incentive spirometry. Rest of the recommendations per Orthopedic Surgery. Further recommendations to follow. MMODL / IJN: [id number] /
[2022-12-13 13:25] LABS: Basophils # (A) 0.03 X 10*3/uL (0.00-0.10); Basophils % (A) 0.3 %; Eosinophils # (A) 0.24 X 10*3/uL (0.04-0.35); Eosinophils % (A) 2.1 %; HCT 33.6 % (37.2-46.3); Immature Grans, Automated 0.4 %; Lymphocytes # (A) 1.27 X 10*3/uL (0.90-5.00); Lymphocytes % (A) 11.3 %; MCH 33.3 pg (27.0-32.0); MCHC 32.7 g/dL (32.0-37.0); MCV 101.8 fL (80.0-97.0); Mean Platelet Volume 9.4 fL (9.5-12.2); Monocytes # (A) 0.97 X 10*3/uL (0.20-1.00); Monocytes % (A) 8.7 %; NRBC Per 100 WBC 0 /100 WBCS (0.0-0.0); Neutrophils # (A) 8.65 X 10*3/uL (1.80-7.70); Neutrophils % (A) 77.2 %; Platelet Count 242 X 10*3/uL (140-440); RDW 14.6 % (11.5-14.5)
[2022-12-13 15:25] LABS: African American GFR (CKD) 100.1 (60.0-200.0); Anion Gap 13.2 mmol/L (10.00-18.00); BUN/Creat Ratio 13.55 Ratio (12.00-20.00); Blood Urea Nitrogen 10.8 mg/dL (9.0-27.0); Calcium 8.7 mg/dL (8.7-10.3); Carbon Dioxide 23.6 mmol/L (20.0-27.5); Non-African American GFR(CKD) 86.4 (60.0-200.0); Potassium 3.4 mmol/L (3.5-5.5)
== END 2022-12-13 13:00 | disposition home health service (06) | DRG 321 ==
LOC: 2ORMAIN 10:10 → 4SSUR 15:12
PROVIDERS: ADMIT Orthopaedic Surgery; ATTEND Orthopaedic Surgery
PROC: 0QS004Z Reposition Lumbar Vertebra with Internal Fixation Device, Open Approach (ICD-10-PCS; principal; 2022-12-12)
PROC: 8E0WXBZ Computer Assisted Procedure of Trunk Region (ICD-10-PCS; 2022-12-12)
PROC: 0QH004Z Insertion of Internal Fixation Device into Lumbar Vertebra, Open Approach (ICD-10-PCS; 2022-12-12)
PROC: 0PH404Z Insertion of Internal Fixation Device into Thoracic Vertebra, Open Approach (ICD-10-PCS; 2022-12-12)
DX: S32.011A Stable burst fracture of first lumbar vertebra, initial encounter for closed fracture (principal); G99.2 Myelopathy in diseases classified elsewhere; I11.0 Hypertensive heart disease with heart failure; I50.9 Heart failure, unspecified; G25.81 Restless legs syndrome; J44.9 Chronic obstructive pulmonary disease, unspecified; G40.909 Epilepsy, unspecified, not intractable, without status epilepticus; M40.204 Unspecified kyphosis, thoracic region; M95.4 Acquired deformity of chest and rib; M48.52XS Collapsed vertebra, not elsewhere classified, cervical region, sequela of fracture; E78.5 Hyperlipidemia, unspecified; K21.9 Gastro-esophageal reflux disease without esophagitis; M79.7 Fibromyalgia; M50.10 Cervical disc disorder with radiculopathy, unspecified cervical region; M81.0 Age-related osteoporosis without current pathological fracture; F17.210 Nicotine dependence, cigarettes, uncomplicated; G89.29 Other chronic pain; M43.12 Spondylolisthesis, cervical region; E07.9 Disorder of thyroid, unspecified; R41.3 Other amnesia; G47.9 Sleep disorder, unspecified; I25.2 Old myocardial infarction; Z79.51 Long term (current) use of inhaled steroids; Z79.890 Hormone replacement therapy; Z79.899 Other long term (current) drug therapy
CPT/HCPCS: 72100; 72131; 80048; 80051; 82805; 85025; 86850; 86900; 86901; 94640; 94760

== ENCOUNTER → 2023-04-10 | Outpatient (CLI) | payer OTHER ==
--- NOTE | 2023-04-12 12:15 | CT ---
EXAMINATION TYPE: CT cervical spine wo con DATE OF EXAM: 04/10/2023 COMPARISON: 04/08/2022 HISTORY: 53-year-old female S12.600A, Pre-surgical, C-7. Extremity numbness, dropping things, pain TECHNIQUE: Contiguous axial scanning of the cervical spine without IV contrast. Coronal and sagittal reconstructions performed. CT DLP: 175 mGycm Automated exposure control for dose reduction was used. FINDINGS: No craniocervical junction and modality, predental space widening, or prevertebral soft tissue swelli ng. Degenerative change at the C1 dens articulation. Moderate disc/endplate degenerative change especially C4-C5 with complete loss of disc space towards the left. Advanced multilevel facet and uncovertebral joint arthropathy, again, greater towards the l eft. There is a new degenerative grade 1, nearly grade 2 anterolisthesis at C4-C5. Similar superior plate deformity of C7. At least mild spinal canal narrowing C4-C5 and C5-C6. No acute fracture of the cervical spine. Moderate left neural foraminal stenosis C3-C4 and C4-C5. Mild neuroforaminal stenosis on the left at C5-C6. Emphysematous change in the visualized upper lungs. IMPRESSION: 1. MODERATE TO ADVANCED SPONDYLOTIC CHANGE ESPECIALLY C4-C5 WHERE THERE IS A NEW GRADE 1, NEARLY GRAD E 2 ANTEROLISTHESIS. 2. AT LEAST MILD SPINAL CANAL STENOSES AT C4-C5 AND C5-C6. 3. DEGENERATIVE CHANGES ARE ASYMMETRICALLY GREATER TOWARDS THE LEFT. THIS RESULTS IN MODERATE LEFT NE URAL FORAMINAL STENOSES AT C3-C4 4. COPD. AND C4-C5.
== END | disposition home or self-care (01) ==
LOC: RADCTMAIN 12:28
PROVIDERS: ATTEND Orthopaedic Surgery
DX: S12.600A Unspecified displaced fracture of seventh cervical vertebra, initial encounter for closed fracture (principal); M47.812 Spondylosis without myelopathy or radiculopathy, cervical region; M43.12 Spondylolisthesis, cervical region; M48.02 Spinal stenosis, cervical region; M99.71 Connective tissue and disc stenosis of intervertebral foramina of cervical region; J44.9 Chronic obstructive pulmonary disease, unspecified
CPT/HCPCS: 72125

== ENCOUNTER → 2023-05-14 | Outpatient (CLI) | payer OTHER | END | disposition home or self-care (01) | LOC: LABWHC1 10:17 | PROVIDERS: ATTEND Orthopaedic Surgery | DX: Z01.812 Encounter for preprocedural laboratory examination (principal); Z22.322 Carrier or suspected carrier of Methicillin resistant Staphylococcus aureus; M47.812 Spondylosis without myelopathy or radiculopathy, cervical region; M48.02 Spinal stenosis, cervical region | CPT/HCPCS: 87070 ==

== ENCOUNTER 2023-05-18 06:44 | Inpatient (IN) | payer OTHER ==
[2023-05-14 16:20] VITALS: BMI 21.4
[~2023-05-18 06:44] MED LIST changes: +LIDOCAINE 1% (10MG/ML) FOR IV START INTRADERMA PRN; +MIDAZOLAM 2 MG/2 ML VIAL IV PRN; -SCOPOLAMINE 1 MG/72 HR PATCH TRANSDERM ONE; +TRANEXAMIC 1,000 MG/100ML-NACL 1,000 MG in SALINE 1 100ML.BAG IVPB PRN; -TRANEXAMIC ACID IN NACL,ISO-OS 1,000 MG in SALINE 1 100ML.BAG IVPB PRN; -fentaNYL (PF) 50 MCG/ML 2 ML AMP IV PRN
--- NOTE | 2023-05-18 07:10 | P.HPOR ---
History of Present Illness H&P Date: 05/13/23 Chief Complaint: cervical spondylotic myelopathy .D:Date: 05/13/23 : 04:12pm .T:Title: *[facility] History and Physical PROVSIGN... COPY... Date of :[birth year] R14 Allergies: Age: 53 year Height: 5'2" Weight: 96 lbs BP:/ BMI: 17.56 kg/m2 Occupation: Retired VAS: 7 CHIEF COMPLAINT: *Neck pain Duration of current treatment regiment: DEL *6 mo HISTORY: Xrays DEL brought xrays from outside facility which were reviewed New xrays taken in office Trauma or injury DEL yes No MVAWork Work-Related DEL yes No Pain description DEL dull, burning, sharp. Location DEL lateral medial posterior anterior diffuse RADICULAR Activity Modification DEL yes no Hand Dominance DEL right left ambidex TREATMENTS COMPLETED: 6 weeks of PT completed? Month and Year of last PT date? DEL NO Yes How many sessions? *8 Did it help? YES No Physician recommended home exercise completed? Duration of HEP course: yes HEPTREAT no Medications yes no List: Chokio, Jonathan, Medrol, Flexeril Alternative interventions Chiropractic: yes No Massage therapy: yes No R.I.C.E: yes no Brace: DEL No YES BRACE Injections DEL NO Yes How many? *1 Did they help? YES No RFA: yes No SUBJECTIV E: Today Ms. Weinstein presents to the office for pre-op eval for her neck. She has had continued and unrelenting pain in her neck as well as b/l UE radiculopathy, increased incidence of dropping object, difficulty with fine motor skills and is now feeling more off balance than usual. She has tried medications, PT, HEP, a neck brace without relief of her sx. She had injections in her neck in the past but this made it worse. She states she is ready for surgery and for this to be better. She denies any bowel or bladder issues. States she has seen her PCP, Cardio and they have cleared her for surgery. All questions were asked and answered today. HISTORY: The patients' past social, medical, family, surgical history, as well as review of systems, have been reviewed. Please refer to the Neurosurgery History and Physical form that has been scanned in to our electronic medical record system. 16 points review of systems completed and as stated in HPI, all other systems reviewed are negative. Social History: DEL Obtained Reviewed P3 Social History: .CE:Clinical Elements:Clinical Elements: Smoking: FORMER smoker P3 .CE:Clinical Elements:Clinical Elements: Alcohol: none P3 P3 Family History: DEL Obtained Reviewed P2 Family History: Mother: P2 Father: P2 Sibling(s): alive & well. P2 Family History: lung cancer., pancreatic cancer, stomach cancer P2 P2 Past Medical History: DEL obtained reviewed Current Medications: DEL none P1 Current Medications: Rx: gabapentin Ref: 0 Instructions: as directed Rx: unable to provide medication list at this time. , Ref: 0 Rx: ibuprofen 800 mg tablet Ref: 0 Instructions: take 1 tablet (800 mg) by oral route 3 times per day with food P1 PHYSICALEXAMINATION: General: DEL Awake, alert, appropriate for age, in no acute distress. HEENT: DEL No unusual neck masses around region of lateral neck triangle, thyroid, supraclavicular groove *Heart: DEL Regular rate and rhythm, normal S1, S2 and no murmur/gallop. *Lungs: DEL Clear to auscultation bilaterally with no use of accessory muscles. Extremities: DELSkin warm and dry without acute lesions, coloration, temperature, skin intact, no tenderness or erythema * Integument: Hairy patches: DEL * ABSENT Dorsal skin dimples: DEL * ABSENT Cafe au lait spots: DEL * ABSENT Surgical incisions: DEL * Posterior T spine from stablization well healed. Palpation: Please see Pain drawing on Intake sheet for further detail. * Midline spinal tenderness: YES, C E6 Cervical Tenderness: YES E6 Paralumbar tenderness: No E6 Parathoracic tenderness: No E6 Buttocks tenderness: No E6 Sacroilliac Tenderness: DEL YES No Laterality: DEL * POSTURAL and MUSCULO-SKELETAL EVALUATION: Coronal Balance: DEL * NEUTRAL Recumbent testing: DEL Patient is * able to lay flat on back Sagittal Balance: DEL * POSITIVE Shoulder Profile: DEL * LEVEL Pelvic Girdle: DEL * LEVEL Neck ROM: DEL * RESTRICTED Lumbar ROM: DEL * RESTRICTED Shoulder ROM: DEL * Symmetrical Hip ROM: DEL * Symmetrical Knee ROM: DEL * Symmetrical Hands: DEL * Normal appearance, symmetrical Feet: DEL * Normal appearance, Symmetrical VASCULAR STATUS : LEFT RIGHT Wrist Pulses * INTACT * INTACT Pedal Pulses (Dors. pedis & post.tibialis) * INTACT * INTACT Color * NORMAL * NORMAL Edema ABSENT PRESENT ABSENT PRESENT NEUROLOGIC EXAMINATION: Mental Status:Awake and alert, fully oriented, with normal attention, concentration and memory, and fluent, appropriate speech. Cranial Nerves: I: Olfactory not tested. II: Visual acuity normal, no visual field deficit noted with confrontation. III,IV: Normal pupillary reflexes & intact extraocular movements without nystagmus. V,: Intact symmetrical facial sensation. VII: Intact symmetrical facial motor movement VIII: Hearing intact. IX,X: Intact gag, swallow, & normal voice. XI: Sternocleidomastoid, trapezius function intact. XII: Tongue midline with normal movements. L'hermitte's Sign: DEL Negative / absent Spurling'Sign: DEL ABSENT MIKE present Cubital percussion test: DEL Absent bilaterally. Robles-Tinel sign - Carpal region: DEL Absent bilaterally. Straight Leg Raising: DEL Absent bilaterally. * Crossed straight leg raise: DEL negative positive O8 + test in affected leg while raising opposite leg, MORE SPECIFIC than regular straight leg raise MOTOR EXAM (0-5/5, N/T) Muscle appearance: DEL *Symmetrical, without signs of atrophy or dystrophy UPPER EXTREMITY RIGHT LEFT Shoulder Abduction *4 *4 Biceps *4 *4 Triceps *4 *4 Wrist Extension *4 *4 Hand Intrnsics *4 *4 Recordak Operator *4 *4 Hand and finger dexterity intact bilaterally? DEL YES No Disdiadochokinesis examination negative bilaterally? DEL YES No LOWER EXTREMITY RIGHT LEFT Hip Flexion *4+ *4+ Knee Extension *4+ *4+ Knee Flexion *4+ *4+ Dorsiflexion *4+ *4+ Plantarflexion *4+ *4+ EHL *4+ *4+ FHL *4+ *4+ Toe heel walk / heel-toe walk intact while maintaining satisfactory balance? DELYES No Squatting/straightening w/o assistance to a min of 60 degree knee flexion?DEL YES No Single leg stance: DEL INTACT Trendelenburg sign negative bilaterally REFLEXES(0-4/2, NT)Upper ExtremityLower Extremity Right * 3 *1 Left *3 * 2 Pathological Reflexes RIGHT LEFT Robles's ABSENT Present ABSENT Present Clonus Absent #BEATS Absent #BEATS Babinski Absent PRESENT Absent PRESENT Sensory system (0-4, N/T) Test type RU MIRYAM RL LL Joint-Position *2 *2 *2 *2 Vibration *2 *2 *2 *2 Pain & LT sense *2 *2 *2 *2 Dermatomal Deficit: * Global *Global *None *None Gait and Functional Evaluation: Ambulatory aids: DEL Cane Romberg's test: DEL Intact bilaterally *Unsteady gait RADIOGRAPHIC STUDIES: XRay taken on 05/18/23 of Cervical Spine: * risks reviewed and demonstrated widespread cervical spondylosis with spo ndylolisthesis C3-C4 C4-C5 with kyphotic alignment of the cervical spine. There is about 12-15 of kyphosis noted in neutral films on flexion there is listhesis which is translated to anteriorly C3-C4 and C4-C5. There is severe spondylosis throughout the cervical spine. On extension this does reduce fairly well. No lesions or fractures noted. Occipital cervical C1 [address] scan from * of Cervical Spine: * This is reviewed and again demonstrates cervical spondylosis throughout the cervical spine with cervical kyphosis. 10-12 noted in the supine film. Again spondylolisthesis is noted C3-C4 and C4-C5. No acute fractures are noted. Stenosis is variable foraminal and central throughout the cervical spine. Occipital cervical C1 2 joints are stable. MRI scan from * of Cervical Spine: * It was reviewed and again demonstrate similar findings with spondylolisthesis and spondylosis along with kyphosis of the cervical spine. There is moderate to severe stenosis C3-C4 and C4-C5 and C5-C6. There is moderate stenosis C6-C7 which could just be due to gantry. There are no acute fractures or dislocations otherwise noted. No lesions. Listhesis is noted similarly to before. IMPRESSION: It was my pleasure to have seen and examined Rosario. I reviewed the patient's clinical syndrome, physical findings, and imaging studies during the appointment today. It is my impression that the patient has a diagnosis of. 1. * Cervical spondylotic myelopathy 2.DEL Cervical stenosis severe 3. DEL bilateral upper extremity radiculopathy 4. Bilateral upper Ramirez weakness 5. Unsteady gait I outlined the natural course history without intervention and various interventional options. PLAN: Based on my findings I suggest the following course of action: -* we discussed again all the different options and potential outcomes of surgery. We discussed all the risks and benefits as outlined in the risk review previously. The patient understands these risks and is willing to assume all the risks of surgery. All questions were asked and answered and the patient was satisfied. I discussed treatment options with the patient, including operative and non- operative options, and they have elected to proceed with the following surgical procedure: cervical thoracic lumbar BACKSURGT... stage I: C3 through C7 ACDF followed by same day stage II C2 to T2 posterior decompression and fusion The indications, risks, benefits, and alternatives to surgery were discussed with the patient ANDFAMILY at length. Specifically (but not limited to) the risks of infection, stiffness, recurrence of symptoms, need for revision surgery, local numbness, neurovascular injury, and blood clots were discussed. The patient's questions were answered.CALL BACK The decision to proceed was made. Consent will be obtained for the procedure. -RXGIVEN MRIAPPTL Bracing Back Brace Liftingreturnact The patient should remain off work offwrk... returnwork casemgr DEL -Ambulate daily -Take medications as directed -Ice and rest for pain and swelling control. Spine Surgery Risk Review Ms. Weinstein is presenting for evaluation of neck and upper extremity pain, bilateral upper extremity numbness and tingling, and decreased hand dexterity bilaterally. It was my pleasure to have seen and examined Ms. Weinstein. In our visit today we have had a chance to go over subjective complaints, physical examination findings and treatments including the natural course history without intervention and various interventional options. The patients imaging demonstrates: XRay Cervical multiview (Lateral, Flexion, Extension, AP, Oblique) 6 views taken at [facility] on 01/29/22 of Cervical Spine: cervical spine alignment is compromised due to degenerative changes. Grade 1 spondylolisthesis C3 onto C4, C4 onto C5. Loss of disc height throughout cervical spine. No acute osseous abnormalities. CT taken on 04/15/22 at [facility] of Cervical and Thoracic Spine: Multilevel spondylotic changes with disc dessication, disc height loss as well as facet arthrosis and kyphosis related to deformity. Deformity is likely centered around C7 in the neck as there is an old C7 compression type fracture noted with about 50% height loss. This causes kyphosis of the neck along with spondylotic changes. There is related stenosis through the neck. OC and C1-2 are stable w/o fracture. There is nearly 0 deg of lordosis in c spine with -5 kyphosis. Thoracic spine shows overall flattening of normal kyphosis with spondylotic changes overall. There are old VCF noted at T10 and T12. T12 is the worst with near 80% height loss and resorption of bone. No malignant evident. No other areas of fracture. No instability noted however there is increased kyphosis at this level which lends to the deformity of the thoracic spine. There is only about 10 deg of thoracic kyphosis noted. MRI taken on 04/08/2022 at [facility] of Cervical and Thoracic Spine: MRI reflects CT scan above with fractures noted that are old in nature. There is stenosis through the c spine related to spondylotic changes as well as kyphotic deformity with chin on chest deformity. There is no myelomalacia at this time. Thoracic spine shows similar changes as noted above.. There is no significant stenosis related to fractures in the T spine at this time. No myelomalacia of T spine cord. On physical exam, Ms. Weinstein demonstrates: The patient presents to the office today with continued neck pain. The patient notes that her neck pain radiates down into the bilateral upper extremities, associated with numbness and tingling. The patient notes decreased hand dexterity, as she has been frequently dropping things. The patient notes increased numbness throughout the fingertips of the bilateral hand. The patient notes that her cervical symptoms are exacerbated by all activity, which makes it very difficult for her to complete many of her daily tasks. The patient is having severe sleep disturbances due to her ongoing pain and associated symptoms. The patient notes her symptoms have become unbearable. I have explained to the patient that as their condition progresses it will cause further neurological deficits and eventual paralysis. Based on the patients imaging, physical exam, and the rapid progression and disabling nature of their symptoms, at this time I recommend surgery in the form of a: 360 degree cervical - Stage I: C3-7 ACDF & Stage II: C2-T4 decompression and fusion. I discussed the risk and benefits of this procedure at length with Ms. Weinstein. The patient agreed to considered pursuing the procedure above mentioned. Prior to surgery, she should follow up with her PCP (Cardio, ID, IM etc) for clearance. Questions were invited and answered, and the patient wishes to proceed as outlined below. Currently, I am recommendin.360 degree cervical - Stage I: C3-7 anterior cervical decompression and fusion & Stage II: C2-T4 decompression and fusion 2.Follow up with PCP for surgical clearance 3.Review of surgical risks and benefits as well as an educational packet on the proposed surgical procedure. Risks: All surgical procedures come with inherent risks, including those related to positioning, anesthesia, intraoperative findings, and postoperative complications. It is important to understand that surgery does not come with any guarantee of a successful outcome as complications and adverse events are always possible. The patient was given a handout in office today discussing the surgical procedure and risks associated with the intervention, both of which were discussed with the patient. These risks include but are not limited to the following: * Experiencing same, different or even worse symptoms in back, neck, arms, or legs compared to before surgery. Requiring further surgery or other forms of treatment presently or at some time in the future at same or other levels of the intended spine surgery. On an extreme but fortunately relatively rare basis severe complication such as blindness, stroke, heart attack, temporary and/or permanent nerve injury, paralysis, coma, or may occur, sometimes without known explanation. Surgical complications may include but are not limited to risk of infection, fluid accumulation in the surgical dissection site, including a seroma or hematoma, that requires additional surgery, wound drainage, bleeding, new numbness or weakness, vision changes/loss, spinal fluid leakage, non-healing and/or infected incision, headaches, difficulty or inability to swallow, hoarseness, hemopneumothorax, pneumothorax, impotence, retrograde ejaculation, vaginal dryness; injury to nerves, spinal cord, blood vessels, lymphatics or other vital organs (i.e., bowel injury, injury to the great vessels); heterotopic bone formation; complications related to the hardware such as screws, rods, cages including misplaced hardware, device failure, instrumentati on at the wrong spine level, hardware fracture/breakage, or hardware loosening; vertebral failure of the spinal column above or below the newly placed hardware; retained surgical instrumentations or devices and the need for further surgery. * Medical risks of the planned spine surgery include but are not limited to generalized Infections to the whole body or local areas outside of the surg ical site (sepsis), heart attack, bleeding, anaphylaxis, meningitis, seizure, epilepsy, hearing loss, burn lópez, laceration of the head or other areas of the body, bruising, hypersensitivity of the skin, bladder over distension; allergic reaction; shoulder injury related to positioning; fat, blood and air clots to other areas of the body like heart, lungs, brain; failure of internal organs such as lungs, kidneys, liver and excessive bleeding. If blood transfusions are necessary, note that transfusions may cause intolerance reactions such as anaphylaxis or other complex reactions. Despite best efforts, the results of spine surgery might not heal in terms of bone, soft tissues such as skin, fascia, ligaments, and joints. Additionally, in order to achieve best possible results, spine surgery may be carried out beyond the initially planned levels and involve decompression, fusion including insertion of hardware at levels other than the original intended area of surgical interest change some portions of the procedure in order to ensure the best possible outcomes. With spine surgery and spinal fusion, there are different off label uses of instrumentation (devices, implants and hardware) as well as biological substances (bone morphogenic proteins, demineralized bone matrix) as well as using extra bone from allograft sources (i.e. cadaver bone) or autograft (iliac crest bone, ribs, or the spine itself). The patient has been given information about these practices and their inherent risks and benefits. [facility] is an educational center that serves as a training facility for neurosurgical and orthopedic ELECTRICAL TRANSMISSION ENGINEER and Nursing students. Physician assistants are medically trained surgical providers who function in the outpatient, inpatient, and operating room setting under the direct supervision of the attending surgeon. [facility] has multiple operating rooms with single and overlapping rooms running daily. They currently function under the required guidelines as produced by the [facility] Finance Committee with regards to the overlapping rooms and will continue to comply with changes to this policy as they occur. The requirements include and are complied with as follows: (1) the critical portions of the overlapping rooms will not occur at the same time, (2) the attending physician will be physically present during the critical portions of the proce dure and immediately available during the entire case, and (3) a back-up attending is designated should the primary attending not be immediately available. The patient has had a chance to review all the listed information, has been given print outs detailing this information, and has had all his/her questions answered to their satisfaction. It was my pleasure to have seen and examined Ms. Weinstein. In our visit today we have had a chance to go over my understanding of our patient's current condition, the natural course history without intervention and various interventional options. Questions were invited and answered, and the patient wishes to proceed as outlined above. I have seen and examined the patient for 25 minutes and we have spent more than 50% of the time in repeat and detailed c ounseling about the patient's condition, its natural course history with out and as much as can be predicted with surgery and re-review of various surgical treatment options. In conclusion, Ms. Weinstein requested we proceed with the above suggested surgery and are willing to accept risks and limitations of the suggested surgery as nature of the disease process and our best attempts at treatment for the condition. Thank you again for allowing us to be part of your patient's care. Please don't hesitate to contact me if you have any further questions. Follow- up: Postoperatively Patient Education: (Informational booklet, instructions, etc) given at today's appointment: CRISTINA Yes .ED:Patient Education: Y Plan at next visit: CRISTINA xip xop X-ray oop Medications Reviewed: YES In our visit today Ms. Weinstein and I have had a chance to go over my understanding of the patient's current condition, the natural course history without intervention and various interventional options. Questions were invited and answered, and the patient wishes to proceed as outlined above. I will be sure to keep you updated afterMs. Weinstein returns here for further follow-up. Thank you again for your referral. Please do not hesitate to contact me if you have any further questions. Signed and authenticated by: Leonel Demarco [facility] [address] [place] [id number] This message is confidential, intended only for the named recipient(s) and may contain information that is privileged or exempt from disclosure under applicable law. If you are not the intended recipient(s), you are notified that the dissemination, distribution or copying of this information is strictly prohibited. If you received this message in error, please notify the sender then delete this message. SCRIBE SIGN CC: DEL REFDR... Past Medical History Past Medical History: Asthma, Heart Failure, COPD, Eye Disorder, Fibromyalgia, GERD/Reflux, Hyperlipidemia, Hypertension, Memory Impairment, Myocardial Infarction (AL), Osteoarthritis (OA), Pneumonia, Seizure Disorder, Skin Disorder, Syncope, Thyroid Disorder Additional Past Medical History / Comment(s): seizures occur weekly- Vision - "sees an orange aura.,IBS, colitis, restless legs flexed syndrome, daily migraines, Vitamin D deficiency, benign left breast mass, gastritis, short term memory loss." BILAT CATARACTS, PT Legs are weak and balance is off." hx falls,- better since last surgery,eczema Last Myocardial Infarction Date:: ?2010 History of Any Multi-Drug Resistant Organisms: None Reported Past Surgical History: Appendectomy, Hysterectomy, Orthopedic Surgery, Uterine Ablation Additional Past Surgical History / Comment(s): D&C, bilateral knee arthroscopy,rectocele,"mesh put into my stomach because of my colitis and IBS",ORIF L1,fusion T11-L3 Past Anesthesia/Blood Transfusion Reactions: No Reported Reaction Additional Past Anesthesia/Blood Transfusion Reaction / Comment(s): severe anxiety coming out of anesthesia,no hx blood transfusion Smoking Status: Current every day smoker - Past Family History Father Family Medical History: Cancer Additional Family Medical History / Comment(s): Father of pancreatic cancer at the age of 62yrs. Mother Family Medical History: Congestive Heart Failure (CHF) Additional Family Medical History / Comment(s): Mother of CHF at the age of 60yrs. Brother(s) Additional Family Medical History / Comment(s): Patient had 1 brother that at 5 months of age. Sister(s) Additional Family Medical History / Comment(s): Patient has one sister with history of depression and bipolar. Patient has 2 half-sisters and one at age 26 from overdose. Patient does not have any children. Medications and Allergies Home Medications Medication Instructions Recorded Confirmed Type Albuterol Nebulized [Ventolin 2.5 mg INHALATION RT-Q4H PRN 04/30/17 05/14/23 History Nebulized] Asenapine Maleate [Saphris] 10 mg SUBLINGUAL BID@0900,2200 04/30/17 05/14/23 History Sertraline [Zoloft] 200 mg PO QAM 04/30/17 05/14/23 History Atorvastatin [Lipitor] 40 mg PO Q3D 05/24/17 05/14/23 History Pantoprazole Sodium [Protonix] 40 mg PO BID 01/07/19 05/14/23 History Asenapine Maleate [Saphris] 2.5 mg SUBLINGUAL 1700 04/15/21 05/14/23 History Brivaracetam [Briviact] 10 mg PO BID 04/15/21 05/14/23 History Gabapentin 800 mg PO TID 04/15/21 05/14/23 History Propranolol [Inderal] 20 mg PO BID 04/15/21 05/14/23 History SUMAtriptan succinate [Imitrex] 100 mg PO DAILY PRN 04/15/21 05/14/23 History Topiramate [Trokendi Xr] 100 mg PO QAM 04/15/21 05/14/23 History busPIRone HCl [Buspar] 15 mg PO TID 04/15/21 05/14/23 History cloBAZam [Sympazan] 10 mg PO BID 04/15/21 05/14/23 History hydrOXYzine pamoate [Vistaril] 50 mg PO TID 04/16/21 05/14/23 History Albuterol Sulfate [Proair Hfa] 2 puff INHALATION RT-QID PRN 05/10/21 05/14/23 History Amitriptyline HCl [Elavil] 100 mg PO HS 05/10/21 05/14/23 History Furosemide [Lasix] 40 mg PO DAILY 05/10/21 05/14/23 History Prazosin HCl [Minipress] 2 mg PO BID@0300,1700 05/10/21 05/14/23 History rOPINIRole HCL [Requip] 4 mg PO BID 05/10/21 05/14/23 History Magnesium Oxide [Mag-Ox] 400 mg PO BID #40 tablet 06/10/21 05/14/23 Rx Buta/APAP/Caf/Cod 86-979-95-30 1 cap PO BID 12/10/22 05/14/23 History [Fioricet w/Cod 44-269-57-30MG] Fluticasone/Umeclidin/Vilanter 1 inhalation INHALATION QAM 12/10/22 05/14/23 History [Trelegy Ellipta 100-62.5-25] Ibuprofen 800 mg PO Q8H PRN 12/10/22 05/14/23 History Levothyroxine Sodium [Synthroid] 88 mcg PO QAM 12/10/22 05/14/23 History Sennosides [Senokot] 17.2 mg PO HS 12/10/22 05/14/23 History Budesonide [Pulmicort] 1 mg INHALATION BID PRN 05/14/23 05/14/23 History Cetirizine HCl [Zyrtec] 10 mg PO BID 05/14/23 05/14/23 History Cyclobenzaprine [Flexeril] 10 mg PO BID 05/14/23 05/14/23 History Allergies Allergy/AdvReac Type Severity Reaction Status Date / Time bee venom protein (honey bee) Allergy Anaphylaxis Verified 05/14/23 15:38 Physical Examination Osteopathic Statement: *. No significant issues noted on an osteopathic structural exam other than those noted in the History and Physical/Consult.
[2023-05-18] MEDS: LACTATED RINGERS 1,000 ML IV SCH (07:36)
[2023-05-18 07:39] LABS: Glucose,Whole Blood 114 mg/dL (70-110)
[2023-05-18] MEDS ORDERED: GLYCOPYRROLATE 0.2 MG/ML 2 ML VIAL ONE (08:28)
[2023-05-18] MEDS ORDERED: TRANEXAMIC 1,000 MG/100ML-NACL PREMIX BAG ONE (08:28)
[2023-05-18] MEDS ORDERED: PROPOFOL 10 MG/ML 20 ML VIAL IV ONE (08:28)
[2023-05-18] MEDS ORDERED: PHENYLEPHRINE-0.9% NACL SYG 1,000 MCG/10 ML SYRINGE ONE (08:28)
[2023-05-18] MEDS ORDERED: ePHEDrine 50 MG/ML 1 ML VIAL ONE (08:28)
[2023-05-18] MEDS ORDERED: SUCCINYLCHOLINE CHLORIDE 200 MG/10 ML VIAL IV ONE (08:28)
[2023-05-18] MEDS ORDERED: NEOSTIGMINE 1 MG/ML 10 ML VIAL ONE (08:28)
[2023-05-18] MEDS ORDERED: fentaNYL (PF) 50 MCG/ML 2 ML AMP ONE (08:28)
[2023-05-18] MEDS ORDERED: LIDOCAINE 2% INJ 20 MG/ML (2 ML VIAL) ONE (08:28)
[2023-05-18] MEDS ORDERED: MIDAZOLAM 2 MG/2 ML VIAL ONE (08:28)
[2023-05-18] MEDS ORDERED: ROCURONIUM 10 MG/ML (5 ML VIAL) IV ONE (08:28)
[2023-05-18] MEDS ORDERED: THROMBIN (BOVINE) 5,000 UNIT VIAL MISCELLANE ONE (09:10)
[2023-05-18] MEDS ORDERED: GELATIN SPONGE,ABSORB (LARGE) 1 EACH SPONGE MISCELLANE ONE (09:20)
--- NOTE | 2023-05-18 11:10 | XR ---
Intraoperative/procedural fluoroscopic services were provided for anterior cervical fusion. Total flu oroscopy time is 49.8 seconds with a total of 5 submitted images to PACS. Total DAP 1.[address] ease see the operative note for further details.
[2023-05-18] MEDS ORDERED: ONDANSETRON 4 MG/2 ML VIAL IVP PRN (11:24)
[2023-05-18] MEDS ORDERED: CYCLOBENZAPRINE 5 MG TAB PO PRN (11:24)
[2023-05-18] MEDS ORDERED: MAGNESIUM HYDROXIDE 2,400 MG/30 ML CUP PO PRN (11:24)
[2023-05-18] MEDS ORDERED: bisacodyL 10 MG SUPP RECTAL PRN (11:24)
[2023-05-18] MEDS ORDERED: HYDROcodone/APAP 5-325MG 1 EACH TAB PO PRN (11:24)
[2023-05-18] MEDS ORDERED: HYDROmorphone 0.5 MG/0.5 ML SYRINGE IVP PRN (11:24)
--- NOTE | 2023-05-18 12:57 | P.ANPRN ---
Procedure Note - Anesthesia - Invasive Line Left Arterial Line Date of Procedure: 05/18/23 Time of Procedure: 08:05 Location of Patient: PreOp Preparation: Sterile Prep Arterial Line Location: Radial Ultrasound Used: Yes Image Stored and Saved: Yes Narrative: Central line placement per sterile protocol utilized.
[2023-05-18] MEDS ORDERED: DEXAMETHASONE SOD PHOSPHATE 10 MG/ML 1 ML VIAL IVP ONE (13:46)
[2023-05-18] MEDS ORDERED: HYDROmorphone 0.5 MG/0.5 ML SYRINGE IVP ONE (13:46)
[2023-05-18] MEDS ORDERED: LACTATED RINGERS 1,000 ML IV ONE (14:00)
[2023-05-18] MEDS: HYDROmorphone 1 MG/ML 1 ML SYRINGE IVP PRN ×2 (17:02→23:41)
[2023-05-18] MEDS: GABAPENTIN 400 MG CAP PO SCH ×2 (17:02→22:19)
[2023-05-18] MEDS ORDERED: ALBUTEROL NEBULIZED 2.5 MG/3 ML INHALATION PRN (18:40)
[2023-05-18] MEDS ORDERED: BUDESONIDE 1 MG/2 ML NEBU INHALATION PRN (18:40)
[2023-05-18] MEDS ORDERED: SUMAtriptan succinate 50 MG TAB PO PRN (18:40)
[2023-05-18] MEDS ORDERED: ALBUTEROL HFA INHALER INHALATION PRN (18:40)
[2023-05-18] MEDS ORDERED: ASENAPINE 5 MG TAB SUBLINGUAL SCH (19:00)
[2023-05-18] MEDS ORDERED: BRIVIACT PO SCH (21:00)
[2023-05-18] MEDS ORDERED: AMITRIPTYLINE HCL 50 MG TAB PO SCH (21:00)
[2023-05-18] MEDS ORDERED: SENNOSIDES 8.6 MG TAB PO SCH (21:00)
[2023-05-18] MEDS: HYDROcodone/APAP 10-325MG 1 EACH TAB PO PRN (22:19)
[2023-05-18] MEDS: hydrOXYzine pamoate 25 MG CAP PO SCH (22:20)
[2023-05-18] MEDS: busPIRone HCl 5 MG TAB PO SCH (22:20)
[2023-05-18] MEDS: SENNOSIDES-DOCUSATE SODIUM 1 EACH TAB PO SCH (22:20)
[2023-05-18] MEDS: PANTOPRAZOLE 40 MG TABLET PO SCH (22:21)
[2023-05-18] MEDS: ASENAPINE 5 MG TAB SUBLINGUAL SCH (22:21)
[2023-05-18] MEDS: MAGNESIUM OXIDE 400 MG TAB PO SCH (22:21)
[2023-05-18] MEDS: PROPRANOLOL 20 MG TAB PO SCH (22:22)
[2023-05-18] MEDS: rOPINIRole HCL 4 MG TABLET PO SCH (22:22)
[2023-05-18] MEDS: CLOBAZAM 10 MG PO SCH (23:31)
[2023-05-19] MEDS ORDERED: LEVOTHYROXINE 88 MCG TAB PO SCH (06:30)
[2023-05-19] MEDS: LACTATED RINGERS 1,000 ML IV SCH (06:44)
[2023-05-19 07:33] LABS: Basophils % (A) 0 %; Eosinophils # (A) 0.1 k/uL (0-0.7); Eosinophils % (A) 1 %; HCT 38.2 % (34.0-46.0); Hypochromasia Slight; Lymphocytes % (A) 22 %; MCHC 31.4 g/dL (31.0-37.0); MCV 108.4 fL (80.0-100.0); Macrocytosis Moderate; Monocytes # (A) 0.7 k/uL (0-1.0); Monocytes % (A) 5 %; Neutrophils # (A) 9.9 k/uL (1.3-7.7); Neutrophils % (A) 71 %; Platelet Count 364 k/uL (150-450); RBC 3.52 m/uL (3.80-5.40); RDW 12.6 % (11.5-15.5)
[2023-05-19 08:10] LABS: African American GFR (CKD) 87 (>60 ml/min/1.73 sqM); Anion Gap 3 mmol/L; Blood Urea Nitrogen 12 mg/dL (7-17); Carbon Dioxide 27 mmol/L (22-30); Chloride 107 mmol/L (98-107); Glucose 82 mg/dL (74-99); Non-African American GFR(CKD) 75 (>60 ml/min/1.73 sqM); Potassium 4.4 mmol/L (3.5-5.1); Sodium 137 mmol/L (137-145)
--- NOTE | 2023-05-19 08:29 | CT ---
EXAMINATION TYPE: CT cervical spine wo con DATE OF EXAM: 05/19/2023 COMPARISON: April 10, 2023 HISTORY: Post op C3-C7 CT DLP: 247.[address] of the cervical spine was performed with bone and soft tissue window settings submitted . Coronal and sagittal reconstruction is obtained. C2-3: Within normal limits C3-4: Postsurgical changes of ACDF with intervertebral spacer in place. Anterior fixation plate and s crews noted. Postoperative alignment is near-anatomic. C4-5:Postsurgical changes of ACDF with intervertebral spacer in place. Anterior fixation plate and sc rews noted. Postoperative alignment is near-anatomic. C5-6:Postsurgical changes of ACDF with intervertebral spacer in place. Anterior fixation plate and sc rews noted. Postoperative alignment is near-anatomic. C6-7: Again noted is loss of height along the anterior vertebral body of C7. There is mild degenerati ve disc space narrowing. No disc bulge or herniation. Alignment is stable and unremarkable. C7-T1: Stable and unremarkable Postsurgical soft tissue changes noted anterior right neck. Surgical drain is in place. Soft tissue a ir seen. IMPRESSION: Post Surgical changes of ACDF extending from C3-4 through C5-6. Appropriate postoperative alignment.
[2023-05-19] MEDS ORDERED: TOPIRAMATE 25 MG TAB PO SCH (09:00)
[2023-05-19] MEDS ORDERED: SERTRALINE 100 MG TAB PO SCH (09:00)
[2023-05-19] MEDS ORDERED: LORATADINE 10 MG TAB PO SCH (09:00)
[2023-05-19] MEDS: busPIRone HCl 5 MG TAB PO SCH (09:21)
[2023-05-19] MEDS: GABAPENTIN 400 MG CAP PO SCH (09:22)
[2023-05-19] MEDS: hydrOXYzine pamoate 25 MG CAP PO SCH (09:22)
[2023-05-19] MEDS: PROPRANOLOL 20 MG TAB PO SCH (09:23)
[2023-05-19] MEDS: PANTOPRAZOLE 40 MG TABLET PO SCH (09:23)
[2023-05-19] MEDS: MAGNESIUM OXIDE 400 MG TAB PO SCH (09:23)
[2023-05-19] MEDS: rOPINIRole HCL 4 MG TABLET PO SCH (09:23)
[2023-05-19] MEDS: HYDROcodone/APAP 10-325MG 1 EACH TAB PO PRN ×2 (09:25→17:00)
[2023-05-19] MEDS: SENNOSIDES-DOCUSATE SODIUM 1 EACH TAB PO SCH (09:25)
[2023-05-19] MEDS: ASENAPINE 5 MG TAB SUBLINGUAL SCH (09:29)
[2023-05-19] MEDS: IPRATROPIUM 0.5 MG/2.5 ML NEBU INHALATION SCH ×3 (09:48→16:03)
--- NOTE | 2023-05-19 10:21 | XR ---
EXAMINATION TYPE: XR cervical spine limited DATE OF EXAM: 05/19/2023 COMPARISON: NONE HISTORY: Post surgery TECHNIQUE: 2 views submitted FINDINGS: Postoperative ACDF from levels C3-C7 noted. BE in near anatomic alignment. Degenerative dis c disease C7-T1 with chronic appearing loss of vertebral body height T1. There is a tubing or drain a long the right margin of the surgical site on the AP view which be correlated clinically. Prevertebral soft tissue structures are within normal limits. IMPRESSION: 1. Postoperative change appears in near-anatomic alignment. Correlate for a surgical drain along the lateral right lateral margin of the surgical site
--- NOTE | 2023-05-19 10:26 | P.PN ---
Subjective Progress Note Date: 05/19/23 Principal diagnosis: 1. Cervical spondylotic myelopathy 2. Cervical stenosis severe 3. Bilateral upper extremity radiculopathy 4. Bilateral upper Ramirez weakness 5. Unsteady gait Patient seen and examined this morning. Patient is resting comfortably in bed. Jackson J collar is present. Surgical dressing to the anterior spine is CDI. JEROD d rain present with minimal output. Discussed with patient we may discontinue drain later today. Patient reports improvement in her upper extremity radiculopathy since the procedure. Patient reports her pain is managed on current regimen. Informed patient that PT will be in to work with her. No acute concerns at this time. Objective - Vital Signs Vital signs: Vital Signs Temp 98 F 05/19/23 01:33 Pulse 78 05/19/23 01:33 Resp 18 05/19/23 01:33 BP 116/78 05/19/23 01:33 Pulse Ox 90 L 05/19/23 01:33 FiO2 Intake & Output 05/18/23 05/18/23 05/19/23 06:59 18:59 06:59 Intake Total 2330 Output Total 445 Balance 1885 Weight 46.3 kg Intake: IV 1850 Oral 480 Output: Drainage 20 Neck 20 Urine 400 Estimated Blood Loss 25 Other: Voiding Method Indwelling Catheter # Voids 0 - Exam Physical Examination General: The patient is awake and alert, in no acute distress Skin: Skin is warm and dry with no obvious rashes or lesions. Surgical incis ion to the anterior cervical spine, dressing is clean dry and intact JEROD drain present Eye: Pupils are equal, round and reactive to light, extra-ocular movements are intact; there is normal conjunctiva bilaterally. Neck: The neck is supple, there is mild tenderness and limited range of motion due to surgical procedure and presence of a Jackson J collar Cardiovascular: There is a regular rate and rhythm. No murmur, rub or gallop is appreciated. Respiratory: Lungs are clear to auscultation, respirations are non-labored, breath sounds are equal. Gastrointestinal: Soft, non-distended, non-tender abdomen. Back: There is no tenderness to palpation in the midline, paralumbar, parathora cic or buttocks region. There is no obvious deformity . Musculoskeletal: ROM limited secondary to pain and stiffness from surgical procedure. Muscle strength in all major muscle groups of bilateral upper extremities 4/5, bilateral lower extremities 5/5. Neurological: CN 2-12 intact. There are no obvious motor or sensory deficits. Movement and coordination equal and intact. Sensory exam to light touch intact C5-T1 and intact from L2-S1. Reflexes 2/4 in bilateral upper and lower extremities. Negative Hoffmans, babinski, and clonus signs. Psychiatric: Cooperative, appropriate mood & affect, normal judgment. - Labs CBC & Chem 7: 05/19/23 07:07 05/19/23 07:07 Labs: Abnormal Lab Results - Last 24 Hours (Table) 05/18/23 Range/Units 07:38 POC Glucose (mg/dL) 114 H (70-110) mg/dL Assessment and Plan Assessment: Post Op Day 1: C3-C7 ACDF 1. Cervical spondylotic myelopathy 2. Cervical stenosis severe 3. Bilateral upper extremity radiculopathy 4. Bilateral upper Ramirez weakness 5. Unsteady gait Plan: -Appreciate recruiting and selection consultant and team management. -Activity: Ambulate QID, OOB all meals, up and about, limit lifting bending twisting to less than 5 lbs. Use walker or cane if needed for stability. -Daily PT/OT, increase ambulation strength and balance. -Jackson J Collar at all times. -Pain control: Adequate at this time -Meds: reviewed -GI ppx: senna, Miralax -DC michelle when up and about, bedside commode if needed -DVT PPX: OK to restart Heparin tonight -Hygiene: Shower today. Maintain dressing clean and dry. -Drains: Maintain for now. Continue to monitor and record output q shift. -Encourage IS 10x/hr -Dispo: Anticipate discharge home with homecare in the next 48hrs *I reviewed and discussed this case with my attending Dr. Mchugh, whom has reviewed this chart and films and is in agreement with assessment and plan of care as outlined above. I have personally seen and examined the patient, performed the documentation and the assessment and plan as written. Number of minutes spent on the visit: 20m
[2023-05-19] MEDS: CLOBAZAM 10 MG PO SCH (11:24)
[2023-05-19] MEDS: HYDROmorphone 1 MG/ML 1 ML SYRINGE IVP PRN (11:24)
--- NOTE | 2023-05-19 12:24 | P.CONS ---
History of Present Illness - Reason for Consult Leukocytosis - History of Present Illness Patient is a pleasant 53-year-old female admitted for cervical vertebral decompression and fusion surgery P patient denied any fever chills nausea vomiting abdominal pain dysuria. Patient does have leukocytosis does have elevated MCV of 4.8. REVIEW OF SYSTEMS: CONSTITUTIONAL: No fever, no malaise, no fatigue. HEENT: No recent visual problems or hearing problems. Denied any sore throat. CARDIOVASCULAR: No chest pain, orthopnea, PND, no palpitations, no syncope. PULMONARY: No shortness of breath, no cough, no hemoptysis. GASTROINTESTINAL: No diarrhea, no nausea, no vomiting, no abdominal pain. NEUROLOGICAL: No headaches, no weakness, no numbness. HEMATOLOGICAL: Denies any bleeding or petechiae. GENITOURINARY: Denies any burning micturition, frequency, or urgency. MUSCULOSKELETAL/RHEUMATOLOGICAL: Denies any joint pain, swelling, or any muscle pain. ENDOCRINE: Denies any polyuria or polydipsia. The rest of the 14-point review of systems is negative. PHYSICAL EXAMINATION: GENERAL: The patient is alert and oriented x3, not in any acute distress. Well developed, well nourished. Patient had a hard cervical collar in place HEENT: Pupils are round and equally reacting to light. EOMI. No scleral icterus. No conjunctival pallor. Normocephalic, atraumatic. No pharyngeal erythema. No thyromegaly. CARDIOVASCULAR: S1 and S2 present. No murmurs, rubs, or gallops. PULMONARY: Chest is clear to auscultation, no wheezing or crackles. ABDOMEN: Soft, nontender, nondistended, normoactive bowel sounds. No palpable organomegaly. MUSCULOSKELETAL: No joint swelling or deformity. EXTREMITIES: No cyanosis, clubbing, or pedal edema. NEUROLOGICAL: Gross neurological examination did not reveal any focal deficits. SKIN: No rashes. Assessment and plan Hyperleukocytosis without any onset infection and reactive seconded surgery -Elevated MCV will obtain B12 levels patient probably will be discharged later today and these be closely to be followed as an outpatient. -Asthma without any acute exacerbation -Hyperlipidemia -Hypertension -Seizure disorder -Hypothyroidism -Patient has multiple medical problems I'll her medications and interactions were reviewed all her medications can be continued except for Lasix patient doesn't have any history of congestive heart failure -Nicotine use: Counseling was provided DVT prophylaxis: As per primary service Patient is medically stable can be discharged if stable from surgical perspective Past Medical History Past Medical History: Asthma, Heart Failure, COPD, Eye Disorder, Fibromyalgia, GERD/Reflux, Hyperlipidemia, Hypertension, Memory Impairment, Myocardial Infarction ([place]), Osteoarthritis (OA), Pneumonia, Seizure Disorder, Skin Disorder, Syncope, Thyroid Disorder Additional Past Medical History / Comment(s): seizures occur weekly- Vision - "sees an orange aura.,IBS, colitis, restless legs flexed syndrome, daily migraines, Vitamin D deficiency, benign left breast mass, gastritis, short term memory loss." BILAT CATARACTS, PT Legs are weak and balance is off." hx falls,- better since last surgery,eczema Last Myocardial Infarction Date:: ?2010 History of Any Multi-Drug Resistant Organisms: None Reported Past Surgical History: Appendectomy, Hysterectomy, Orthopedic Surgery, Uterine Ablation Additional Past Surgical History / Comment(s): D&C, bilateral knee arthrosco py,rectocele,"mesh put into my stomach because of my colitis and IBS",ORIF L1,fusion T11-L3 Past Anesthesia/Blood Transfusion Reactions: No Reported Reaction Additional Past Anesthesia/Blood Transfusion Reaction / Comm: severe anxiety coming out of anesthesia,no hx blood transfusion Past Psychological History: Anxiety, Bipolar, Depression, Panic Disorder, PTSD Additional Psychological History / Comment(s): Borderline personality disorder- Follows with Psychiatrist at [facility] Smoking Status: Current every day smoker Past Alcohol Use History: None Reported Additional Past Alcohol Use History / Comment(s): Patient is a smoker <1ppd day since she was 17 years of age. Past Drug Use History: Marijuana Additional Drug Use History / Comment(s): Has been using Marijuana since age 16. Currently uses once a day. Aware no use 24 hrs prior to procedure. - Past Family History Father Family Medical History: Cancer Additional Family Medical History / Comment(s): Father of pancreatic cancer at the age of 62yrs. Mother Family Medical History: Congestive Heart Failure (CHF) Additional Family Medical History / Comment(s): Mother of CHF at the age of 60yrs. Brother(s) Additional Family Medical History / Comment(s): Patient had 1 brother that at 5 months of age. Sister(s) Additional Family Medical History / Comment(s): Patient has one sister with history of depression and bipolar. Patient has 2 half-sisters and one at age 26 from overdose. Patient does not have any children. Medications and Allergies Home Medications Medication Instructions Recorded Confirmed Type Albuterol Nebulized [Ventolin 2.5 mg INHALATION RT-Q4H PRN 04/30/17 05/14/23 History Nebulized] Asenapine Maleate [Saphris] 10 mg SUBLINGUAL BID@0900,2200 04/30/17 05/14/23 History Sertraline [Zoloft] 200 mg PO QAM 04/30/17 05/14/23 History Atorvastatin [Lipitor] 40 mg PO Q3D 05/24/17 05/14/23 History Pantoprazole Sodium [Protonix] 40 mg PO BID 01/07/19 05/14/23 History Asenapine Maleate [Saphris] 2.5 mg SUBLINGUAL 1700 04/15/21 05/14/23 History Brivaracetam [Briviact] 10 mg PO BID 04/15/21 05/14/23 History Gabapentin 800 mg PO TID 04/15/21 05/14/23 History Propranolol [Inderal] 20 mg PO BID 04/15/21 05/14/23 History SUMAtriptan succinate [Imitrex] 100 mg PO DAILY PRN 04/15/21 05/14/23 History Topiramate [Trokendi Xr] 100 mg PO QAM 04/15/21 05/14/23 History busPIRone HCl [Buspar] 15 mg PO TID 04/15/21 05/14/23 History cloBAZam [Sympazan] 10 mg PO BID 04/15/21 05/14/23 History hydrOXYzine pamoate [Vistaril] 50 mg PO TID 04/16/21 05/14/23 History Albuterol Sulfate [Proair Hfa] 2 puff INHALATION RT-QID PRN 05/10/21 05/14/23 History Amitriptyline HCl [Elavil] 100 mg PO HS 05/10/21 05/14/23 History Furosemide [Lasix] 40 mg PO DAILY 05/10/21 05/14/23 History Prazosin HCl [Minipress] 2 mg PO BID@0300,1700 05/10/21 05/14/23 History rOPINIRole HCL [Requip] 4 mg PO BID 05/10/21 05/14/23 History Magnesium Oxide [Mag-Ox] 400 mg PO BID #40 tablet 06/10/21 05/14/23 Rx Buta/APAP/Caf/Cod 01-384-59-30 1 cap PO BID 12/10/22 05/14/23 History [Fioricet w/Cod 25-704-58-30MG] Fluticasone/Umeclidin/Vilanter 1 inhalation INHALATION QAM 12/10/22 05/14/23 History [Trelegy Ellipta 100-62.5-25] Ibuprofen 800 mg PO Q8H PRN 12/10/22 05/14/23 History Levothyroxine Sodium [Synthroid] 88 mcg PO QAM 12/10/22 05/14/23 History Sennosides [Senokot] 17.2 mg PO HS 12/10/22 05/14/23 History Budesonide [Pulmicort] 1 mg INHALATION BID PRN 05/14/23 05/14/23 History Cetirizine HCl [Zyrtec] 10 mg PO BID 05/14/23 05/14/23 History Cyclobenzaprine [Flexeril] 10 mg PO BID 05/14/23 05/14/23 History Allergies Allergy/AdvReac Type Severity Reaction Status Date / Time bee venom protein (honey bee) Allergy Anaphylaxis Verified 05/18/23 07:26 Physical Exam Vitals: Vital Signs Temp Pulse Pulse Pulse Resp BP Pulse Ox 05/19/23 10:03 92 05/19/23 09:49 91 05/19/23 07:24 98 F 85 94 16 129/85 94 L 05/19/23 01:33 98 F 78 18 116/78 90 L 05/18/23 19:41 98.1 F 95 20 105/71 96 05/18/23 16:59 98.6 F 81 18 123/75 93 L 05/18/23 16:30 82 16 133/60 100 05/18/23 16:00 82 16 119/80 100 05/18/23 15:30 81 16 113/76 100 05/18/23 15:00 80 16 109/74 100 05/18/23 14:30 80 16 109/75 100 05/18/23 14:00 77 16 119/81 100 05/18/23 13:30 82 16 135/84 100 05/18/23 12:54 77 16 132/88 100 05/18/23 12:39 79 16 135/84 100 Intake and Output 05/18/23 05/19/23 05/19/23 22:59 06:59 14:59 Intake Total 480 Output Total 848 218 9447 Balance 160 -400 -2201 Intake: Oral 480 Output: Drainage 20 1 Neck 20 1 Urine 596 617 1672 Other: Voiding Method Indwelling Catheter # Voids 0 1 # Bowel Movements 1 Weight 46.3 kg Results CBC & Chem 7: 05/19/23 07:07 05/19/23 07:07 Labs: Abnormal Lab Results - Last 24 Hours (Table) 05/19/23 Range/Units 07:07 WBC 14.0 H (3.8-10.6) k/uL RBC 3.52 L (3.80-5.40) m/uL MCV 108.4 H (80.0-100.0) fL Neutrophils # 9.9 H (1.3-7.7) k/uL
--- NOTE | 2023-05-19 14:52 | P.DS ---
Providers Date of admission: 05/18/23 06:44 Expected date of discharge: 05/19/23 Attending physician: Leonel Mchugh DO Consults: 05/18/23 11:29 Consult Physician Routine Consulting Provider: Honey Forte Reason/Comments: Medical Management Do you want consulting provider notified?: Yes Primary care physician: Harpreet Mcduffie [facility] Course: Hospital Course: The patient was evaluated preoperatively and found to have the diagnosis of cervical spondylosis, spondylolisthesis. They underwent appropriate preoperative care and were willing to undergo the intended procedure. They underwent a successful C3-C6 ACDF, were recovered appropriately and sent to the floor. While on the floor they worked with physical therapy, occupational therapy and nursing to enhance their recovery experience. Their pain was well controlled through their stay and they were started on appropriate medications, DVT ppx modalities, activity and dietary needs. Daily labs were monitored closely, and transfusions were only used when necessary. Medicine as well as other consulting services have made their input and have helped with our team approach and multidisciplinary care. PT milestones have been met and passed and they have made the recommendation of home for this patient and treating providers agree with this care path. The patient will be discharged home with appropriate medications, instructions and follow-up information and in stable condition. Patient Condition at Discharge: Good Plan - Discharge Summary Discharge Rx Participant: No New Discharge Prescriptions: New cefaDROXiL [Duricef] 500 mg PO Q12HR 5 Days #10 cap Cyclobenzaprine [Flexeril] 5 mg PO TID PRN #60 tablet PRN Reason: Muscle Spasm HYDROcodone/APAP 10-325MG [[place] 10-325] 1 tab PO Q4-6H PRN #56 tab PRN Reason: Pain Sennosides/Docusate Sodium [Senna Plus 8.6-50 mg Softgel] 1 each PO DAILY PRN #20 capsule PRN Reason: Constipation No Action Sertraline [Zoloft] 200 mg PO QAM Albuterol Nebulized [Ventolin Nebulized] 2.5 mg INHALATION RT-Q4H PRN PRN Reason: sob Asenapine Maleate [Saphris] 10 mg SUBLINGUAL BID@0900,2200 Atorvastatin [Lipitor] 40 mg PO Q3D Pantoprazole Sodium [Protonix] 40 mg PO BID Gabapentin 800 mg PO TID Brivaracetam [Briviact] 10 mg PO BID Propranolol [Inderal] 20 mg PO BID busPIRone HCl [Buspar] 15 mg PO TID SUMAtriptan succinate [Imitrex] 100 mg PO DAILY PRN PRN Reason: Migraine Headache Albuterol Sulfate [Proair Hfa] 2 puff INHALATION RT-QID PRN PRN Reason: Shortness Of Breath Furosemide [Lasix] 40 mg PO DAILY Prazosin HCl [Minipress] 2 mg PO BID@0300,1700 Magnesium Oxide [Mag-Ox] 400 mg PO BID #40 tablet Sennosides [Senokot] 17.2 mg PO HS Levothyroxine Sodium [Synthroid] 88 mcg PO QAM Fluticasone/Umeclidin/Vilanter [Trelegy Ellipta 100-62.5-25] 1 inhalation INHALATION QAM Budesonide [Pulmicort] 1 mg INHALATION BID PRN PRN Reason: sob Cyclobenzaprine [Flexeril] 10 mg PO BID Cetirizine HCl [Zyrtec] 10 mg PO BID cloBAZam [Sympazan] 10 mg PO BID Topiramate [Trokendi Xr] 100 mg PO QAM Asenapine Maleate [Saphris] 2.5 mg SUBLINGUAL 1700 hydrOXYzine pamoate [Vistaril] 50 mg PO TID Amitriptyline HCl [Elavil] 100 mg PO HS rOPINIRole HCL [Requip] 4 mg PO BID Ibuprofen 800 mg PO Q8H PRN PRN Reason: Pain [place]a/APAP/Caf/Cod [id number] [Fioricet w/Cod 28-153-73-30MG] 1 cap PO BID Discharge Medication List Albuterol Nebulized [Ventolin Nebulized] 2.5 mg INHALATION RT-Q4H PRN 04/30/17 [History] Asenapine Maleate [Saphris] 10 mg SUBLINGUAL BID@0900,2200 04/30/17 [History] Sertraline [Zoloft] 200 mg PO QAM 04/30/17 [History] Atorvastatin [Lipitor] 40 mg PO Q3D 05/24/17 [History] Pantoprazole Sodium [Protonix] 40 mg PO BID 01/07/19 [History] Asenapine Maleate [Saphris] 2.5 mg SUBLINGUAL 1700 04/15/21 [History] Brivaracetam [Briviact] 10 mg PO BID 04/15/21 [History] Gabapentin 800 mg PO TID 04/15/21 [History] Propranolol [Inderal] 20 mg PO BID 04/15/21 [History] SUMAtriptan succinate [Imitrex] 100 mg PO DAILY PRN 04/15/21 [History] Topiramate [Trokendi Xr] 100 mg PO QAM 04/15/21 [History] busPIRone HCl [Buspar] 15 mg PO TID 04/15/21 [History] cloBAZam [Sympazan] 10 mg PO BID 04/15/21 [History] hydrOXYzine pamoate [Vistaril] 50 mg PO TID 04/16/21 [History] Albuterol Sulfate [Proair Hfa] 2 puff INHALATION RT-QID PRN 05/10/21 [History] Amitriptyline HCl [Elavil] 100 mg PO HS 05/10/21 [History] Furosemide [Lasix] 40 mg PO DAILY 05/10/21 [History] Prazosin HCl [Minipress] 2 mg PO BID@0300,1700 05/10/21 [History] rOPINIRole HCL [Requip] 4 mg PO BID 05/10/21 [History] Magnesium Oxide [Mag-Ox] 400 mg PO BID #40 tablet 06/10/21 [Rx] Buta/APAP/Caf/Cod [id number] [Fioricet w/Cod 64-902-06-30MG] 1 cap PO BID 12/10/22 [History] Fluticasone/Umeclidin/Vilanter [Trelegy Ellipta 100-62.5-25] 1 inhalation INHALATION QAM 12/10/22 [History] Ibuprofen 800 mg PO Q8H PRN 12/10/22 [History] Levothyroxine Sodium [Synthroid] 88 mcg PO QAM 12/10/22 [History] Sennosides [Senokot] 17.2 mg PO HS 12/10/22 [History] Budesonide [Pulmicort] 1 mg INHALATION BID PRN 05/14/23 [History] Cetirizine HCl [Zyrtec] 10 mg PO BID 05/14/23 [History] Cyclobenzaprine [Flexeril] 10 mg PO BID 05/14/23 [History] Cyclobenzaprine [Flexeril] 5 mg PO TID PRN #60 tablet 05/19/23 [Rx] HYDROcodone/APAP 10-325MG [[place] 10-325] 1 tab PO Q4-6H PRN #56 tab 05/19/23 [Rx] Sennosides/Docusate Sodium [Senna Plus 8.6-50 mg Softgel] 1 each PO DAILY PRN #20 capsule 05/19/23 [Rx] cefaDROXiL [Duricef] 500 mg PO Q12HR 5 Days #10 cap 05/19/23 [Rx] Follow up Appointment(s)/Referral(s): Harpreet Ballard [Primary Care Provider] - 1 Week Leonel Mchugh DO [Doctor of Osteopathic Medicine] - 06/03/23 10:15 am Activity/Diet/Wound Care/Special Instructions: Spine Discharge and Recovery Instructions Patient to wear [place] J collar at all times, may remove only for showers for the next 6 weeks. Date of Surgery: 05/18/2023 Diagnosis: Cervical spondylosis, spondylolisthesis Procedure: C3-C6 ACDF Medications: See medication list All medication refills should be obtained through your primary care doctor or your clinic spine surgeon. Please discuss prescription refills at your follow up appointment. Do not call the hospital for medication refills. Dressing: Leave your dressing in place for a total of 5 days post operatively. Then you may remove your dressing and leave open to air. Keep the area clean and if not able to keep area clean, then cover with sterile gauze and tape. Showering: You may shower 3 days after your procedure allowing soap and water to run over incision. Do not scrub. Do not soak. Blot dry. Follow up: Please confirm a follow up appointment with your surgeon 3 weeks post operatively. Please make an appointment to follow up with your PCP in 1-2 weeks after surgery for evaluation 3 phase, 3-week plan POST OP WEEKS 1-3 1. Lifting/carrying/pushing/pulling limited to less than 5 pounds. 2. Do not sit for longer than 15 minutes at one time. Get up and walk around. Prolonged sitting is NOT advised. If you lay down, see if you can tolerate laying down on you front (belly side) 3. Walk for periods of 15 minutes = 1 mile but no longer; do it multiple times times each day. 4. Ice your low back after activity. POST OP WEEKS 3-6 1. Lifting limited to less than 20 pounds. 2. Do not sit for longer than 30 minutes at a time. Frequently change positions. Use a sit-to stand workstation or take frequent breaks from sitting if you have returned to work. 3. Walk for 30 minutes each day. If possible, do these three or more times a day POST OP WEEKS 6+ At your 6-week appointment we will give you a physical therapy referral to focus on a core stabilization and strengthening program. You should also work on leg & buttock strengthening, hamstring & quadriceps stretching, and continue a low impact aerobic activity program such as swimming, walking, or riding a stationary bicycle. During the initial 6 weeks after your surgery, you are at the highest risk of re-injuring your spine. You should generally avoid BLTs (bending, lifting and twisting combination motions) and follow the above guidelines to reduce the chance of reinjury. You can anticipate post op appointments in our office at approximately 3 weeks and 6 weeks after your surgery. INCISION CARE: If your incision is not draining you do NOT need to cover it with a dressing. Keep your incision clean, dry and intact. In most cases, we apply skin glue, garland or sutures to the incision at the time of surgery. This will be like a crust or have the appearance of a scab and will fall off in time on its own. The stitches or garland need to be removed at 3 weeks post op appointment. You may begin to shower 3 days after surgery (this allows the glue to amador well). However, please avoid scrubbing the incision site or peeling off any of the skin glue. This will ensure optimal healing of your incision. Also, during this time avoid soaking the incision area in water - this includes swimming pools, hot tubs or baths. No ointments, lotions or oils on the incision until your surgeon allows. Leave garland, sutures or glue in place. Neurological dysfunction that comes on suddenly can also be a sign of a stroke. Below some common symptoms of a stroke are listed: B - balance difficulty such as sudden onset walking or leaning to one side - NEW E - eye problem such as sudden double vision or trouble seeing on one side - NEW F - Facial weakness or numbness on one side - NEW A - Arm or leg weakness or numbness on one side - NEW S - Slurred speech or difficulty with word finding - NEW T - Time is BRAIN! Call 911 as soon as you recognize these symptoms Diet: Consume a regular diet rich in vegetables and lean protein such as chicken or fish. You should consume in a ratio of approximately 20% fats|40% carbohydrates|40%protein. Vegetables, sweet potatoes, brown rice or quinoa are examples of good carbohydrates. Chips, white bread, cookies and sweets/sugar are examples of bad carbohydrates. Limit your bad carbs, go wild with good carbs. "Life's Simple 7" Guidelines as per [place] [employer] These will help you reclaim your life after surgery and billboard erector helper in your recovery, keeping in mind your restrictions. (1) Get Active. Physical activity can help people lose weight, control high blood pressure and cholesterol, feel emotionally better, and sleep better. (2) Control Cholesterol. Avoid a diet high in saturated fat, trans fat, & cholesterol. Limit whole milk & cream, ice cream, butter, egg yolks, processed meats (like sausage and hot dogs), and fatty meats. Choose healthy foods that are low in saturated fat, trans fat and cholesterol which include: Fruits and vegetables, fiber rich grain products (like whole grain pasta and brown rice), lean meat such as chicken, fish, nuts, seeds, and legumes. (3) Eat Better. Eat small portions. Shop at the grocery with a list and do not stray from it. Tips for a healthy diet include: Limit sodium intake to less than 1500mg daily, avoid prepackaged, processed, and fast foods, choose a diet rich in fruits, vegetables, and whole grain, high fiber foods, and limit saturated & cholesterol in your diet. (4) Manage Blood Pressure. If you have high blood pressure, you should have a cuff at home so that you can check your blood pressure regularly. Be sure you have a good cuff. An arm one is generally better than a wrist one. Bring the cuff to a doctor's appointment to validate that the measurements that your cuff are taking are accurate. Take your blood pressure twice daily when you are sitting down and relaxing. Record the numbers in a log and bring this log with you to your doctors' appointments. (5) Lose Weight if your BMI is above 25. A healthy BMI is between 19-25. To calculate Your BMI, you may use a Standard BMI Calculator on the NIH BMI website: <www.nhlbi.nih.gov/guidelines/obesity/BMI/bmicalc.htm>. Weigh oneself daily. If you are overweight, set a goal to lose weight. A pound a week loss if needed is a good target. (6) Reduce Blood Sugar. Limit foods and liquids with "added sugars." (Added s ugars include sucrose, fructose, glucose, maltose, dextrose, high fructose corn syrup, corn syrup, concentrated fruit juice and honey). (7) Stop Smoking. If you smoke, quitting smoking is one of the best things that you can do for your health. Smoking increases your risk of heart attack, stroke, and peripheral vascular disease, which is a build-up of plaque in your arteries. Please discard all the cigarettes and lighters in your house. Have a plan for what you will do when you have the urge to smoke. Direct and second- hand smoke shortens your life as well as the lives of your family, friends and others around you. For your health and the health of those around you, please consider quitting! Proper Bending Body Mechanics: Maintain a wide stance with one foot slightly in front of the other. Keep your back straight. Bend utilizing the strength in your hips and knees. Do not bend at the waist. Maintain the lifted object at your waist-level close to your body. Avoid lifting weight that causes immediately pain or pain anywhere in the body afterwards. Smoking/Nicotine If there was ever one thing that you could do to increase your overall health, decrease your risk of cardiovascular problems by about 39% the second you make the choice, it is to STOP SMOKING. Your body's most instant gratification is the second you stop smoking. We have all heard the studies, read the articles but it is true, smoking is extremely bad for your overall health, and moreover it is detrimental to your bone health. Nicotine, IN ANY FORM, kills bone cells, prevents your body from healing fractures, and significantly prolongs healing after surgery. In spine surgery specifically, it increases your risk of not healing your bones to create a fusion and increases your risk of having a revision surgery due to this up to 60%. I know it is hard. I know it feels impossible. But there are ways. Take control of your life. We are here to help you through it. And when you are ready, ask us and we can direct you to help if you desire. Use the START Plan to Quit Smoking (please visit the Helpguide.org website listed below for more information): S = Set a quit date. Choose a date within the next 2 weeks, so you have enough time to prepare without losing your motivation to quit. If you mainly smoke at work, quit on the weekend, so you have a few days to adjust to the change. T = Tell family, friends, and co-workers that you plan to quit. Let your friends and family in on your plan to quit smoking and tell them you need their support and encouragement to stop. Look for a quit gabrielle who wants to stop smoking as well. You can help each other get through the rough times. A = Anticipate and plan for the challenges you'll face while quitting. Most people who begin smoking again do so within the first 3 months. You can help yourself make it through by preparing ahead for common challenges, such as nicotine withdrawal and cigarette cravings. R = Remove cigarettes and other tobacco products from your home, car, and work. Throw away all your cigarettes (no emergency pack!), lighters, ashtrays, and matches. Wash your clothes and freshen up anything that smells like smoke. Shampoo your car, clean your drapes and carpet, and steam your furniture. T = Talk to your doctor about getting help to quit. Your doctor can prescribe medication to help with withdrawal and suggest other alternatives. If you can't see a doctor, you can get many products over the counter at your local pharmacy or grocery store, including the nicotine patch, nicotine lozenges, and nicotine gum. Resources for Quitting Smoking: <htt ps://www.[place].gov/documents/[facility]/Quit_Tobacco_Resources_for_patients_313480_ 7.pdf> Supplementation: Take recommended dosages of Vitamin D and Calcium to help fortify your bones and help them to heal. See your health maintenance packet for dosages and recommended levels. DVT/VTE prophylaxis: You will be given compression stockings from the hospital. Wear these daily for the first two weeks after surgery. You may take them off at night. You may be prescribed a medication to help thin your blood. Take this as directed. If you are not prescribed this medication, early and frequent ambulation has been shown to be the best prophylaxis to deep vein thrombosis and sequelae related to this event. Discharge Disposition: HOME SELF-CARE
[2023-05-19 15:38] VITALS: BP 123/85; PULSE 93; RESP 18; TEMP 98.1
[2023-05-20] MEDS ORDERED: ATORVASTATIN 40 MG TAB PO SCH (21:00)
--- NOTE | 2023-05-23 12:00 | P.OP ---
Date of Procedure: 05/18/23 Preoperative Diagnosis: 1. Cervical spondylotic myelopathy 2. Upper extremity radiculopathy bilaterally 3. Upper extremity weakness bilateral 4. Unsteady gait 5. Neck pain Postoperative Diagnosis: 1. Cervical spondylotic myelopathy 2. Upper extremity radiculopathy bilaterally 3. Upper extremity weakness bilateral 4. Unsteady gait 5. Neck pain Procedure(s) Performed: 1. C3-C4 anterior interbody arthrodesis (20038) 2. C4-C5 anterior interbody arthrodesis (54864) 3. C5-C6 anterior interbody arthrodesis (99085) 4. Application of 4 segment anterior cervical plate nonintegrated C3 to C6 (99140) 5. C3 4, C4 5, C5 6 insertion of biomechanical device (11808 x 3) use of intraoperative neuro monitoring use of intraoperative microscope Implants: - [place] cages 8 mm 8 mm 7 mm 7 lordotic - [place] anterior plate - magna toss, autograft Anesthesia: GETA Surgeon: Leonle Mchugh Registered Clinical Dietitian #1: Magnolia Mosquera (Magnolia Mosquera, TRACTOR MECHANIC Was present and assisted with all aspects of the case from positioning to dressing placement) Estimated Blood Loss (ml): 25 IV fluids (ml): 1,200 Urine output (ml): 250 Pathology: none sent Condition: stable Disposition: PACU Indications for Procedure: Ms. Weinstein is presenting for evaluation of neck and upper extremity pain, bilateral upper extremity numbness and tingling, and decreased hand dexterity bilaterally. It was my pleasure to have seen and examined Ms. Weinstein. In our visit today we have had a chance to go over subjective complaints, physical examination findings and treatments including the natural course history without intervention and various interventional options. The patients imaging demonstrates: XRay Cervical multiview (Lateral, Flexion, Extension, AP, Oblique) 6 views taken at [facility] on 01/29/22 of Cervical Spine: cervical spine alignment is compromised due to degenerative changes. Grade 1 spondylolisthesis C3 onto C4, C4 onto C5. Loss of disc height throughout cervical spine. No acute osseous abnormalities. CT taken on 04/15/22 at [facility] Thor[facility] Sp[facility]: Multilevel spondylotic changes with disc dessication, disc height loss as well as facet arthrosis and kyphosis related to deformity. Deformity is likely centered around C7 in the neck as there is an old C7 compression type fracture noted with about 50% height loss. This causes kyphosis of the neck along with spondylotic changes. There is related stenosis through the neck. OC and C1-2 are stable w/o fracture. There is nearly 0 deg of lordosis in c spine with -5 kyphosis. Thoracic spine shows overall flattening of normal kyphosis with spondylotic changes overall. There are old VCF noted at T10 and T12. T12 is the worst with near 80% height loss and resorption of bone. No malignant evident. No other areas of fracture. No instability noted however there is increased kyphosis at this level which lends to the deformity of the thoracic spine. There is only about 10 deg of thoracic kyphosis noted. MRI taken on 04/08/2022 at [facility] Cervical and Thoracic Spine: MRI reflects CT scan above with fractures noted that are old in nature. There is stenosis through the c spine related to spondylotic changes as well as kyphotic deformity with chin on chest deformity. There is no myelomalacia at this time. Thoracic spine shows similar changes as noted above.. There is no significant stenosis related to fractures in the T spine at this time. No myelomalacia of T spine cord. On physical exam, Ms. Weinstein demonstrates: The patient presents to the office today with continued neck pain. The patient notes that her neck pain radiates down into the bilateral upper extremities, associated with numbness and tingling. The patient notes decreased hand dexterity, as she has been frequently dropping things. The patient notes increased numbness throughout the fingertips of the bilateral hand. The patient notes that her cervical symptoms are exacerbated by all activity, which makes it very difficult for her to complete many of her daily tasks. The patient is having severe sleep disturbances due to her ongoing pain and associated symptoms. The patient notes her symptoms have become unbearable. I have explained to the patient that as their condition progresses it will cause further neurological deficits and eventual paralysis. Based on the patients imaging, physical exam, and the rapid progression and disabling nature of their symptoms, at this time I recommend surgery in the form of a: 360 degree cervical - Stage I: C3-7 ACDF & Stage II: C2-T4 decompression and fusion. I discussed the risk and benefits of this procedure at length with Ms. Weinstein. The patient agreed to considered pursuing the procedure above mentioned. Prior to surgery, she should follow up with her PCP (Cardio, ID, IM etc) for clearance. Questions were invited and answered, and the patient wishes to proceed as outlined below. Currently, I am recommendin.360 degree cervical - Stage I: C3-7 anterior cervical decompression and fusion & Stage II: C2-T4 decompression and fusion Description of Procedure: C3-6 ACDF plate screws The patient was seen and examined in the preoperative area. All preoperative protocols were followed. Informed consent was obtained risks and benefits of the procedure were discussed at length. Risks including bleeding infection damage to the surrounding tissue and risk of reoperation were discussed with the patient. Risk of anesthesia up to and including was a discussed with the patient. These are outlined in the risk review. They were willing to accept these risks and all the risks of surgery. The patient was given a weight-based dose of antibiotics in the form of 2 g Ancef. The patient was seen and evaluated by the anesthesia team who deemed them fit for surgery. The site was marked, the patient was willing to proceed with the procedure. The patient was transferred to the operative suite by the Department of anesthesia. They were then drifted off to sleep by the department anesthesia and GETA was performed. The patient tolerated this well. Howell catheter was placed by nursing staff, a-traumatically. Once confirmation of lines and v entilation the patient was transferred to a Supine Valentino table very carefully. All bony prominences including wrists, elbows, axilla, chest, hips, and thighs, and feet were padded very well. Special attention was paid to the genitalia, and these were padded accordingly. SCDs were placed on bilateral lower extremities and were connected. Arms were well padded and placed at their side thumbs up. Once in position, again we confirmed good ventilation capabilities and that lines were running appropriately. The patients Cervical spine was then exposed. 1010s were placed outlining the incision site. Standard alcohol was used to clean the incision site and allowed to dry. C-arm was used to bio- david the patient and confirm level for incision which was marked with a skin marker. Operative briefing was performed with all teams and everyone in agreement to proceed. The patient was then prepped and draped in a normal sterile fashion. Timeout was then performed, and all parties agreed with the procedure to be performed. Transverse skin incision was then made on the right side of the patients neck 3 cm and dissection taken down to the platysma which was split transversely. Sub platysma flap was made, and interval identified between SCM and medial structures. Omohyoid was visualized and protected. Blunt dissection taken down to the anterior cervical facia which was identified. Blunt prob was then placed and lateral image taken which confirmed levels for operation. These levels were then marked with a bovi. Subperiosteal dissection of the longissimus muscles were then done over these levels identifying uncovertebral joints bilaterally. Retractor was then placed deep to these muscles and held in place with a bed arm. [place] pins were placed into C3 and C4 and gentle distraction taken out over the levels. Elroy rongure used to remove disc material. Operating microscope brought in for visualization. Complete discectomy performed at this level with curette, rongure and pituitary. High speed sole used to remove osteophytes anteriorly and posteriorly until PLL was identified. 6-0 up curette then used to identify the canal and resect the PLL. 2-0 and 3-0 Kerrison used then to remove PLL and disc herniation and performed b/l foraminotomies. Once good decompression accomplished, meticulous hemostasis was performed. Sizers were then placed under lateral fluoroscopy until the desired height and lordosis. Cage was then selected, packed with autograft and allograft and placed under lateral imaging. Once in good position it was tested and stable. Motors run before and after cage placement were stable. The wound was irrigated, and autograft placed lateral to the cage anteriorly for fusion. [place] pin was then removed from C3 and placed into C5 and bone wax placed in their void. Gentle distraction taken out over C4-5 now. Complete discectomy done at C4-5 as described including decompression, b/l foraminotomies and PLL resection. Burring of endplates was minimal, osteophytes removed as described. Spacers were then sized and placed under lateral imaging. Cage selected, packed with graft and placed under lateral images. Once in position, meticulous hemostasis performed, and motors remained stable before and after cage placement. AP image confirmed good placement of cages. Wound was irrigated. At C5-6, [place] pins were placed into C5 and C6 and gentle distraction taken out over the levels. Elroy rongure used to remove disc material. Operating microscope brought in for visualization. Complete discectomy performed at this level with curette, rongure and pituitary. High speed sole used to remove osteophytes anteriorly and posteriorly until PLL was identified. 6-0 up curette then used to identify the canal and resect the PLL. 2-0 and 3-0 Kerrison used then to remove PLL and disc herniation and performed b/l foraminotomies. Once good decompression accomplished, meticulous hemostasis was performed. Sizers were then placed under lateral fluoroscopy until the desired height and lordosis. Cage was then selected, packed with autograft and allograft and placed under lateral imaging. Once in good position it was tested and stable. Motors run before and after cage placement were stable. The wound was irrigated, and autograft placed lateral to the cage anteriorly for fusion. A separate, non-integrated plate was then selected and sized under lateral image. The plate was then placed with screws. Fixed screws drilled into C6 b/l and screws placed. AP taken and plate was centered. Remainder of screws then drilled and placed. All had good purchase. All locking mechanisms set, and all screws had good purchase. Final AP and lateral images taken confirmed good placement of hardware and good reduction and latter-day of height. The wound was then irrigated copiously with NSS. Surgicel placed deep in the wound. A deep drain placed out a separate incision and sewed into place. Layered closure then performed with 3-0 Vicryl in the platysma and sub-Q tissue. 2-0 Nylon placed in the skin The wound was then cleaned, and dried and skin glue placed. Once glue dried an Opifoam was placed. The patient was then transferred back to their hospital bed a-traumatically. The drain continued to hold suction. They were placed in a soft collar. They were then awakened by the department of anesthesia having tolerated the procedure well without complications.
== END 2023-05-19 17:15 | disposition home or self-care (01) | DRG 321 ==
LOC: EEVIPCON 06:44 → 2ORMAIN 06:44 → EEVIPCON 07:30 → 4SSUR 16:14
PROVIDERS: ADMIT Orthopaedic Surgery; ATTEND Orthopaedic Surgery
PROC: 0RT30ZZ Resection of Cervical Vertebral Disc, Open Approach (ICD-10-PCS; 2023-05-18)
PROC: 00NW0ZZ Release Cervical Spinal Cord, Open Approach (ICD-10-PCS; principal; 2023-05-18 08:15)
PROC: 4A11X4G Monitoring of Peripheral Nervous Electrical Activity, Intraoperative, External Approach (ICD-10-PCS; principal; 2023-05-18 08:15)
PROC: 0RG20A0 Fusion of 2 or more Cervical Vertebral Joints with Interbody Fusion Device, Anterior Approach, Anterior Column, Open Approach (ICD-10-PCS; principal; 2023-05-18 08:15)
DX: M47.12 Other spondylosis with myelopathy, cervical region (principal); M47.22 Other spondylosis with radiculopathy, cervical region; M48.02 Spinal stenosis, cervical region; D72.829 Elevated white blood cell count, unspecified; I11.0 Hypertensive heart disease with heart failure; E03.9 Hypothyroidism, unspecified; J44.9 Chronic obstructive pulmonary disease, unspecified; I50.9 Heart failure, unspecified; E78.5 Hyperlipidemia, unspecified; Z71.6 Tobacco abuse counseling; F17.210 Nicotine dependence, cigarettes, uncomplicated; F31.9 Bipolar disorder, unspecified; F43.10 Post-traumatic stress disorder, unspecified; F60.3 Borderline personality disorder; G25.81 Restless legs syndrome; G40.909 Epilepsy, unspecified, not intractable, without status epilepticus; I25.2 Old myocardial infarction; M40.204 Unspecified kyphosis, thoracic region; M43.12 Spondylolisthesis, cervical region; M79.7 Fibromyalgia; M95.4 Acquired deformity of chest and rib; K21.9 Gastro-esophageal reflux disease without esophagitis; M19.90 Unspecified osteoarthritis, unspecified site; R41.3 Other amnesia; K58.9 Irritable bowel syndrome, unspecified; R26.9 Unspecified abnormalities of gait and mobility; E55.9 Vitamin D deficiency, unspecified; R71.8 Other abnormality of red blood cells; Z79.890 Hormone replacement therapy; Z79.899 Other long term (current) drug therapy; Z81.8 Family history of other mental and behavioral disorders; Z82.49 Family history of ischemic heart disease and other diseases of the circulatory system; Z98.1 Arthrodesis status; Z91.030 Bee allergy status; Z87.01 Personal history of pneumonia (recurrent); Z79.51 Long term (current) use of inhaled steroids; Z71.3 Dietary counseling and surveillance
CPT/HCPCS: 36415; 72040; 72125; 80048; 85025; 86850; 86900; 86901; 94640

== ENCOUNTER → 2023-06-26 | Outpatient (CLI) | payer OTHER ==
[2023-06-27 01:53] LABS: HCT 42.2 % (37.2-46.3); HGB 13.1 d/dL (12.0-15.0); MCH 33.6 pg (27.0-32.0); MCV 108.2 FL (80.0-97.0); Mean Platelet Volume 9.2 FL (9.5-12.2); NRBC Per 100 WBC 0 X 10*3/uL (0.00-0.01); Platelet Count 524 X 10*3/uL (140-440); RDW 14.7 % (11.5-14.5); WBC 8.95 X 10*3/uL (4.50-10.00)
[2023-06-27 02:59] LABS: ALT 18 U/L (8-44); AST 27 U/L (13-35); Albumin 3.9 d/dL (3.8-4.9); Alkaline Phosphatase 104 U/L (41-126); BUN/Creat Ratio 19.78 Ratio (12.00-20.00); Blood Urea Nitrogen 17.8 mg/dL (9.0-27.0); Calcium 9.2 mg/dL (8.7-10.3); Carbon Dioxide 23.9 mmol/L (21.6-31.8); Chloride 101 mmol/L (96-109); Globulin 2.6 d/dL (1.6-3.3); Glucose 125 mg/dL (70-110); Potassium 4.6 mmol/L (3.5-5.5); Sodium 140 mmol/L (135-145); Total Bilirubin <0.2 mg/dL (0.3-1.2); Total Protein 6.5 d/dL (6.2-8.2)
== END | disposition home or self-care (01) ==
LOC: LABPAT 14:53
PROVIDERS: ATTEND Orthopaedic Surgery
DX: Z01.812 Encounter for preprocedural laboratory examination (principal); Z22.322 Carrier or suspected carrier of Methicillin resistant Staphylococcus aureus; M50.123 Cervical disc disorder at C6-C7 level with radiculopathy; M50.023 Cervical disc disorder at C6-C7 level with myelopathy
CPT/HCPCS: 80053; 82306; 85027; 87070

== ENCOUNTER → 2023-06-30 | Outpatient (CLI) | payer OTHER ==
[2023-06-30 13:52] LABS: INR 0.8 (<1.2); Partial Thromboplastin Time 24.7 sec (22.0-30.0); Prothrombin Time 9.5 sec (10.0-12.5)
== END | disposition home or self-care (01) ==
LOC: LABWHC1 11:57
PROVIDERS: ATTEND Orthopaedic Surgery
DX: M50.00 Cervical disc disorder with myelopathy, unspecified cervical region (principal); S12.600A Unspecified displaced fracture of seventh cervical vertebra, initial encounter for closed fracture; Y99.9 Unspecified external cause status
CPT/HCPCS: 36415; 85610; 85730; 86850; 86900; 86901

== ENCOUNTER → 2023-07-09 | Outpatient (CLI) | payer OTHER ==
[2023-07-09 15:07] LABS: INR 0.9 (<1.2); Prothrombin Time 9.7 sec (10.0-12.5)
== END | disposition home or self-care (01) ==
LOC: LABWHC1 14:07
PROVIDERS: ATTEND Orthopaedic Surgery
DX: S12.690A Other displaced fracture of seventh cervical vertebra, initial encounter for closed fracture (principal); G95.29 Other cord compression; R94.31 Abnormal electrocardiogram [ECG] [EKG]
CPT/HCPCS: 36415; 85610; 85730; 93005

== ENCOUNTER 2023-07-14 07:30 | Inpatient (IN) | payer OTHER ==
[2023-07-10 16:00] VITALS: BMI 21.7
--- NOTE | 2023-07-14 06:14 | P.HPOR ---
History of Present Illness H&P Date: 06/19/23 .D:Date: 06/19/23 : 01:23pm .T:Title: [facility] Date of :[birth year] R14 Allergies: Age: 53 year Height: 5'2" Weight: 96 lbs BP:/ BMI: 17.56 Occupation: Disabled VAS: 8 CHIEF COMPLAINT: s/p C3-C6 ACDF DOI:Chronic DOS:05/18/23 Post Op Week: 4.5 week Subjective: Ms. Weinstein presents to the office for a post-operative evaluation following their C3-C6 ACDF. Since last visit patient reports an increase in right shoulder pain which she describes as aching and throbbing. Patient also states she has been increasingly dropping objects with her right hand. Patient reports aching, burning cervical pain since the time of their procedure. She presents with hard cervical collar present. Overall the patient has seen increased cervical pain and increased right upper extremity numbness and tingling. Patient states her migraines have increased. Ms. Weinstein notes that their symptoms are exacerbated with prolonged sitting and most activity. Patient is having severe sleep disturbances as well. She is currently taking [place], Flexeril, and Gabapentin with no relief of her symptoms. Patient states she has stopped smoking. She denies any f/c/sob/cp, no incision concerns, and ambulates with walker. patient is several complex social history HISTORY: Ms. Weinstein presents to the office on 06/05/23 for a post-operative evaluation following their C3-C6 ACDF. Patient reports aching, burning cervical pain since the time of their procedure. She presents with hard cervical collar present. Overall the patient has seen increased cervical pain. She states she is continuing to drop items from her right hand. Patient states her migraines have increased. Ms. Weinstein notes that their symptoms are exacerbated with any activity, but this is moderately controlled with [place]. She has since moved back to town with her significant other. She [place] her aunt was becoming volatile. Patient is continuing to smoke. Patient is having moderate sleep disturbances as well. She denies any f/c/sob/cp, no incision concerns, and ambulates with walker. The patient's past medical history; past surgical history; family history; medicines; allergies and social history have been reviewed and are as stated elsewhere in the chart. 16 points review of systems completed and as stated in HPI, all other systems reviewed are negative. PHYSICAL EXAM: -Patient is alert and oriented 3 appears well-nourished well-hydrated is in no acute distress. They do not appear septic. -On exam the patient has no tenderness to palpation of their thoracic or lumbar spine. There is no edema or ballottement sign. -Right upper extremity 3/5, Left upper extremity 3+/5 strength in all major muscle groups. -Lower extremities with 4/5 strength in all major muscle groups -There is FROM that is painless of the b/l UE and LE in all major joints. -They are intact to light touch sensation in L2 to S1 nerve distribution as well as the C5-T1 distribution. -DTRs 2/4 all upper and lower -Patient has palpable distal pulses in all four extremeties -Compartments are soft and compressible. -Neg Robles's -No Clonus -Neg Babinski -Neg Jb's -No tensioning signs. -Cranial nerves II through XII are grossly intact. -Overall alignment is well-maintained in the sagittal coronal planes. . Surgical incision: Looks good, no sign of any infection, no drainage, EEE, edema, or ecchymosis. No fevers or chills. RADIOGRAPHS: XRay Cervical AP/lateral 2 views taken at [facility] on 06/19/23 of Cervical Spine: These are compared to intra and post op. There is some interval change at the CT junction. There is increased kyphosis at the CT junction. There is co ntinued stenosis posteriorly. We discussed previously that she would need posterior surgery which she refused at that time and now she is back with continued symptoms upper extremity as well as myelopathy. Hardware in good position, no signs of any screw loosening, migration, dislocation, or failure. Overall good coronal alignment with stable sagittal balance. Good reduction maintained.No osseous abnormalities noted. ASSESSMENT: 1. S/P C3-6 ACDF 2. C7 fracture 3. Upper extremity radiculopathy 4. Cervical myelopathy PLAN: All options were reviewed today, we decided the best course of action would be: -Advised patient to continue with supplements, health maintenance, and home exercise programs. Patient expressed understanding and will continue with these modalities. - SMOKING CESSATION FOLLOW UP The patient and I have discussed their current Stop Smoking plan and how the plan has been going. They state they have stopped. They state they have noticed the effects of their plan and are happy with their progress. We d iscussed again their plan as well as the benefits of quitting. We have adjusted their plan as necessary, and the patient is comfortable with this. We will check back with them on our next visit to see how they are doing with this. Time Spent: 3-10 min I discussed treatment options with the patient, including operative and non- operative options, and they have elected to proceed with the following surgical procedure: C2-T2 Decompression and Fusion STAT The indications, risks, benefits, and alternatives to surgery were discussed with the patient at length. Specifically (but not limited to) the risks of infection, stiffness, recurrence of symptoms, need for revision surgery, local numbness, neurovascular injury, and blood clots were discussed. The patient's questions were answered. The decision to proceed was made. Consent will be obtained for the procedure. -No lifting, bending, twisting no lifting greater than 10lbs -Wear brace as needed/when up and about, do not sleep or shower in it. -Ambulate daily -Take pain medications and post op medications as needed and as directed -Maintain incisions clean and dry. Do no submerge incisions. OK to shower. Blot dry after. dressings as needed. -Ice and rest for pain and swelling control. Spine Surgery Risk Review Ms. Weinstein is presenting for evaluation of cervical pain. It was my pleasure to have seen and examined Ms. Weinstein. In our visit today we have had a chance to go over subjective complaints, physical examination findings and treatments including the natural course history without intervention and various interventional options. The patients imaging demonstrates: XRay Cervical AP/lateral 2 views taken at [facility] on 06/19/23 of Cervical Spine: These are compared to intra and post op. There is some interval change at the CT junction. There is increased kyphosis at the CT junction. There is continued stenosis posteriorly. We discussed previously that she would need posterior surgery which she refused at that time and now she is back with continued symptoms upper extremity as well as myelopathy. Hardware in good position, no signs of any screw loosening, migration, dislocation, or failure. Overall good coronal alignment with stable sagittal balance. Good reduction maintained.No osseous abnormalities noted. On physical exam, Ms. Weinstein demonstrates: Since last visit patient reports an increase in right shoulder pain which she describes as aching and throbbing. Patient also states she has been increasingly dropping objects with her right hand. Patient reports aching, burning cervical pain since the time of their procedure. She presents with hard cervical collar present. Overall the patient has seen increased cervical pain and increased right upper extremity numbness and tingling. Patient states her migraines have increased. Ms. Weinstein notes that their symptoms are exacerbated with prolonged sitting and most activity. Patient is having severe sleep disturbances as well. She is currently taking [place], Flexeril, and Gabapentin with no relief of her symptoms. I have explained to the patient that as their condition progresses it will cause further neurological deficits and eventual paralysis. Based on the patients imaging, physical exam, and the rapid progression and disabling nature of their symptoms, at this time I recommend surgery in the form of a: C2-T2 decompression and fusion. I discussed the risk and benefits of this procedure at length with Ms. Weinstein. The patient agreed to considered pursuing the procedure abovementioned. Prior to surgery, she should follow up with her PCP (Cardio, ID, IM etc) for clearance. Questions were invited and answered, and the patient wishes to proceed as outlined below. Currently, I am recommendin.C2-T2 decompression and fusion STAT 2.Follow up with PCP for surgical clearance 3.Review of surgical risks and benefits as well as an educational packet on the proposed surgical procedure. Risks: All surgical procedures come with inherent risks, including those related to positioning, anesthesia, intraoperative findings, and postoperative complica tions. It is important to understand that surgery does not come with any guarantee of a successful outcome as complications and adverse events are always possible. The patient was given a handout in office today discussing the surgical procedure and risks associated with the intervention, both of which were discussed with the patient. These risks include but are not limited to the following: * Experiencing same, different or even worse symptoms in back, neck, arms, or legs compared to before surgery. Requiring further surgery or other forms of treatment presently or at some time in the future at same or other levels of the intended spine surgery. On an extreme but fortunately relatively rare basis severe complication such as blindness, stroke, heart attack, temporary and/or permanent nerve injury, paralysis, coma, or may occur, sometimes without known explanation. Surgical complications may include but are not limited to risk of infection, fluid accumulation in the surgical dissection site, including a seroma or hematoma, that requires additional surgery, wound drainage, bleeding, new numbness or weakness, vision changes/loss, spinal fluid leakage, non-healing and/or infected incision, headaches, difficulty or inability to swallow, hoarseness, hemopneumothorax, pneumothorax, impotence, retrograde ejaculation, vaginal dryness; injury to nerves, spinal cord, blood vessels, lymphatics or other vital organs (i.e., bowel injury, injury to the great vessels); heterotopic bone formation; complications related to the hardware such as screws, rods, cages including misplaced hardware, device failure, instrumentation at the wrong spine level, hardware fracture/breakage, or hardware loosening; vertebral failure of the spinal column above or below the newly placed hardware; retained surgical instrumentations or devices and the need for further surgery. * Medical risks of the planned spine surgery include but are not limited to generalized Infections to the whole body or local areas outside of the surgical site (sepsis), heart attack, bleeding, anaphylaxis, meningitis, seizure, epilepsy, hearing loss, burn lópez, laceration of the head or other areas of the body, bruising, hypersensitivity of the skin, bladder over distension; allergic reaction; shoulder injury related to positioning; fat, blood and air clots to other areas of the body like heart, lungs, brain; failure of internal organs such as lungs, kidneys, liver and excessive bleeding. If blood transfusions are necessary, note that transfusions may cause intolerance reactions such as anaphylaxis or other complex reactions. Despite best efforts, the results of spine surgery might not heal in terms of bone, soft tissues such as skin, fascia, ligaments, and joints. Additionally, in order to achieve best possible results, spine surgery may be carried out beyond the initially planned levels and involve decompression, fusion including insertion of hardware at levels other than the original intended area of surgical interest change some portions of the procedure in order to ensure the best possible outcomes. With spine surgery and spinal fusion, there are different off label uses of instrumentation (devices, implants and hardware) as well as biological substances (bone morphogenic proteins, demineralized bone matrix) as well as using extra bone from allograft sources (i.e. cadaver bone) or autograft (iliac crest bone, ribs, or the spine itself). The patient has been given information about these practices and their inherent risks and benefits. [facility] is an educational center that serves as a training facility for neurosurgical and orthopedic [employer] and Nursing students. Physician assistants are medically trained surgical providers who function in the outpatient, inpatient, and operating room setting under the direct supervision of the attending surgeon. [facility] has multiple operating rooms with single and overlapping rooms running daily. They currently function under the required guidelines as produced by the [facility] Finance Committee with regards to the overlapping rooms and will continue to comply with changes to this policy as they occur. The requirements include and are complied with as follows: (1) the critical portions of the overlapping rooms will not occur at the same time, (2) the attending physician will be physically present during the critical portions of the procedure and immediately available during the entire case, and (3) a back-up attending is designated should the primary attending not be immediately available. The patient has had a chance to review all the listed information, has been given print outs detailing this information, and has had all his/her questions answered to their satisfaction. It was my pleasure to have seen and examined Ms. Weinstein. In our visit today we have had a chance to go over my understanding of our patient's current condition, the natural course history without intervention and various interventional options. Questions were invited and answered, and the patient wishes to proceed as outlined above. I have seen and examined the patient for 25 minutes and we have spent more than 50% of the time in repeat and detailed counseling about the patient's condition, its natural course history with out and as much as can be predicted with surgery and re-review of various surgical treatment options. In conclusion, Ms. Weinstein requested we proceed with the above suggested surgery and are willing to accept risks and limitations of the suggested surgery as nature of the disease process and our best attempts at treatment for the condition. Follow-up: Post procedure Patient Education: (Informational booklet, instructions, etc) given at today's appointment: Yes .ED:Patient Education: Y Medications Reviewed: YES Attestation: In our visit today Ms. Weinstein and I have had a chance to go over my understanding of the patient's current condition, the natural course history without intervention and various interventional options. Questions were invited and answered, and the patient wishes to proceed as outlined above. I will be sure to keep you updated afterMs. Weinstein returns here for further follow-up. Thank you again for your referral. Please do not hesitate to contact me if you have any further questions. Signed and authenticated by: Leonel Demarco [facility] [address] [place] [address] This message is confidential, intended only for the named recipient(s) and may contain information that is privileged or exempt from disclosure under applicable law. If you are not the intended recipient(s), you are notified that the dissemination, distribution or copying of this information is strictly prohibited. If you received this message in error, please notify the sender then delete this message. Patient verbalizes understanding of the information discussed. The above note was initiated by Dinesh Mcdermott, physician recording preschool teacher's assistant for Dr. Leonel Mchugh. This note has been reviewed by Dr. Mchugh, who has made his personal changes and impressions for this document. CC: Lizeth Riojas D.O. #Orders: Cervical Spine 2v xray # SIGNED BY Leonel Mchugh (GOO)06/25/2023 12:28P Past Medical History Past Medical History: Asthma, COPD, Eye Disorder, Fibromyalgia, GERD/Reflux, Hyperlipidemia, Hypertension, Memory Impairment, Myocardial Infarction ([place]), Osteoarthritis (OA), Pneumonia, Seizure Disorder, Skin Disorder, Syncope, Thyroid Disorder Additional Past Medical History / Comment(s): Patient states current difficulty swallowing food, states she starts coughing and it comes back up, states told doctor twice and they did nothing about it. Environmental allergies. Patient states gets swelling in legs. Hard of hearing. IBS, colitis, restless legs flexed syndrome, daily migraines, Vitamin D deficiency, benign left breast mass, gastritis, short term memory loss. Vision - "sees an orange aura." BILATERAL CATARACTS. Last seizure 04/15/21. "Legs are weak and balance is off, has fallen before. Had bone marrow checked for cancer. Last Myocardial Infarction Date:: unknown History of Any Multi-Drug Resistant Organisms: None Reported Past Surgical History: Appendectomy, Hysterectomy, Orthopedic Surgery, Uterine Ablation Additional Past Surgical History / Comment(s): D&C, bilateral knee arthroscopy, "spacers put in neck". Past Anesthesia/Blood Transfusion Reactions: No Reported Reaction Additional Past Anesthesia/Blood Transfusion Reaction / Comment(s): Severe anxiety coming out of anesthesia. No hx blood transfusion. Past Psychological History: Anxiety, Bipolar, Depression, PTSD Additional Psychological History / Comment(s): Borderline personality disorder. Smoking Status: Current every day smoker Past Alcohol Use History: None Reported Additional Past Alcohol Use History / Comment(s): Patient is a smoker of 2 packs per day since she was 17 years of age. Aware no smoking after midnight day prior to procedure. Past Drug Use History: Marijuana Additional Drug Use History / Comment(s): Has been using Marijuana since age 16. Currently uses once a day. Aware no use 24 hrs prior to procedure. - Past Family History Father Family Medical History: Cancer Additional Family Medical History / Comment(s): Father of pancreatic cancer at the age of 62yrs. Mother Family Medical History: Congestive Heart Failure (CHF) Additional Family Medical History / Comment(s): Mother of CHF at the age of 60yrs. Brother(s) Additional Family Medical History / Comment(s): Patient had 1 brother that at 5 months of age. Sister(s) Additional Family Medical History / Comment(s): Patient has one sister with history of depression and bipolar. Patient has 2 half-sisters and one at age 26 from overdose. Patient does not have any children. Medications and Allergies Home Medications Medication Instructions Recorded Confirmed Type Albuterol Nebulized [Ventolin 2.5 mg INHALATION RT-Q4H PRN 04/30/17 07/10/23 History Nebulized] Asenapine Maleate [Saphris] 10 mg SUBLINGUAL BID@0900,2200 04/30/17 07/10/23 History Sertraline [Zoloft] 200 mg PO QAM 04/30/17 07/10/23 History Atorvastatin [Lipitor] 40 mg PO Q3D 05/24/17 07/10/23 History Pantoprazole Sodium [Protonix] 40 mg PO BID 01/07/19 07/10/23 History Asenapine Maleate [Saphris] 2.5 mg SUBLINGUAL 1700 04/15/21 07/10/23 History Gabapentin 800 mg PO TID 04/15/21 07/10/23 History Propranolol [Inderal] 20 mg PO BID 04/15/21 07/10/23 History SUMAtriptan succinate [Imitrex] 100 mg PO DAILY PRN 04/15/21 07/10/23 History Topiramate [Trokendi Xr] 100 mg PO QAM 04/15/21 07/10/23 History busPIRone HCl [Buspar] 15 mg PO TID 04/15/21 07/10/23 History cloBAZam [Sympazan] 10 mg PO BID 04/15/21 07/10/23 History hydrOXYzine pamoate [Vistaril] 50 mg PO TID 04/16/21 07/10/23 History Albuterol Sulfate [Proair Hfa] 2 puff INHALATION RT-QID PRN 05/10/21 07/10/23 History Amitriptyline HCl [Elavil] 100 mg PO HS 05/10/21 07/10/23 History Furosemide [Lasix] 40 mg PO DAILY 05/10/21 07/10/23 History Prazosin HCl [Minipress] 2 mg PO BID@0300,1700 05/10/21 07/10/23 History rOPINIRole HCL [Requip] 4 mg PO BID 05/10/21 07/10/23 History Buta/APAP/Caf/Cod 43-367-07-30 1 cap PO BID 12/10/22 07/10/23 History [Fioricet w/Cod 49-485-95-30MG] Fluticasone/Umeclidin/Vilanter 1 inhalation INHALATION QAM 12/10/22 07/10/23 History [Trelegy Ellipta 100-62.5-25] Ibuprofen 800 mg PO Q8H PRN 12/10/22 07/10/23 History Levothyroxine Sodium [Synthroid] 88 mcg PO QAM 12/10/22 07/10/23 History Sennosides [Senokot] 17.2 mg PO HS 12/10/22 07/10/23 History Budesonide [Pulmicort] 1 mg INHALATION BID PRN 05/14/23 07/10/23 History Cetirizine HCl [Zyrtec] 10 mg PO BID 05/14/23 07/10/23 History HYDROcodone/APAP 10-325MG [[place] 1 tab PO Q4-6H PRN #56 tab 05/19/23 07/10/23 Rx 10-325] Sennosides/Docusate Sodium [Senna 1 each PO DAILY PRN #20 capsule 05/19/23 07/10/23 Rx Plus 8.6-50 mg Softgel] Brivaracetam [Briviact] 100 mg PO BID 07/10/23 07/10/23 History Cyclobenzaprine [Flexeril] 10 mg PO BID 07/10/23 07/10/23 History Magnesium Oxide [Mag-Ox] 400 mg PO DAILY 07/10/23 07/10/23 History Allergies Allergy/AdvReac Type Severity Reaction Status Date / Time bee venom protein (honey bee) Allergy Anaphylaxis Verified 07/10/23 14:58 Physical Examination Osteopathic Statement: *. No significant issues noted on an osteopathic st ructural exam other than those noted in the History and Physical/Consult.
[~2023-07-14 07:30] MED LIST changes: -MIDAZOLAM 2 MG/2 ML VIAL IV PRN; -ONDANSETRON 4 MG/2 ML VIAL IVP ONE
[2023-07-14] MEDS: LACTATED RINGERS 1,000 ML IV SCH (08:51)
[2023-07-14] MEDS ORDERED: MIDAZOLAM 2 MG/2 ML VIAL ONE (10:52)
[2023-07-14] MEDS ORDERED: fentaNYL (PF) 50 MCG/ML 2 ML AMP ONE (10:52)
[2023-07-14] MEDS ORDERED: ROCURONIUM 10 MG/ML (5 ML VIAL) IV ONE (10:52)
[2023-07-14] MEDS ORDERED: NEOSTIGMINE 1 MG/ML 10 ML VIAL ONE (10:52)
[2023-07-14] MEDS ORDERED: LIDOCAINE 1% INJ 10MG/ML (20 ML MDV) ONE (10:52)
[2023-07-14] MEDS ORDERED: HYDROmorphone (PF) 1 MG/ML ONE (10:52)
[2023-07-14] MEDS ORDERED: PHENYLEPHRINE 10 MG/ML 5 ML VIAL ONE (10:52)
[2023-07-14] MEDS ORDERED: SUCCINYLCHOLINE CHLORIDE 200 MG/10 ML VIAL IV ONE (10:52)
[2023-07-14] MEDS ORDERED: TRANEXAMIC 1,000 MG/100ML-NACL PREMIX BAG ONE (10:52)
[2023-07-14] MEDS ORDERED: ePHEDrine 50 MG/ML 1 ML VIAL ONE (10:52)
[2023-07-14] MEDS ORDERED: PROPOFOL 10 MG/ML 20 ML VIAL IV ONE (10:52)
[2023-07-14] MEDS ORDERED: GELATIN SPONGE,ABSORB (LARGE) 1 EACH SPONGE TOPICAL ONE (11:50)
[2023-07-14] MEDS ORDERED: THROMBIN (BOVINE) 5,000 UNIT VIAL TOPICAL ONE (11:51)
[2023-07-14] MEDS ORDERED: VANCOMYCIN 1,000 MG VIAL MISCELLANE ONE (13:08)
--- NOTE | 2023-07-14 13:23 | FL ---
Intraoperative/procedural fluoroscopic services were provided. Total fluoroscopy time is 30 seconds w ith a total of 7 submitted images to PACS. Please see the operative/procedural note for further detai ls. DAP: 0.4858 Gycm2
[2023-07-14] MEDS ORDERED: HYDROcodone/APAP 10-325MG 1 EACH TAB PO PRN (13:29)
[2023-07-14] MEDS ORDERED: ONDANSETRON 4 MG/2 ML VIAL IVP PRN (13:29)
[2023-07-14] MEDS ORDERED: CYCLOBENZAPRINE 5 MG TAB PO PRN (13:29)
[2023-07-14] MEDS ORDERED: HYDROcodone/APAP 5-325MG 1 EACH TAB PO PRN (13:29)
[2023-07-14] MEDS ORDERED: LACTATED RINGERS 1,000 ML IV ONE (13:35)
[2023-07-14] MEDS: GABAPENTIN 400 MG CAP PO SCH ×2 (16:28→23:01)
[2023-07-14] MEDS: HYDROmorphone 0.5 MG/0.5 ML SYRINGE IVP PRN ×2 (16:28→20:53)
--- NOTE | 2023-07-14 16:46 | CT ---
EXAMINATION TYPE: CT cervical spine wo con DATE OF EXAM: 07/14/2023 COMPARISON: 05/18/2023 HISTORY: 53-year-old female post-op cervical fusion TECHNIQUE: Contiguous axial scanning of the cervical spine without IV contrast. Coronal and sagittal reconstructions performed. CT DLP: 313.3 mGycm Automated exposure control for dose reduction was used. FINDINGS: Previous C3-C6 ACDF. Grade 1 anterolisthesis above this radius ACDF at C2-C3. There has been interval placement of posterior cervicothoracic fusion from C2 down through the T3 lev el. Chronic anterior wedge deformity C7. Wide laminectomies along the new surgical level. Associated foci of air within the laminectomy bed an d also within the posterior soft tissues. A surgical drain is in place. Of note, the left C4 trans fa cet screw extends into the C3-C4 facet joint space. Otherwise, the hardware appears uncomplicated. Extensive metal artifact. Moderate emphysema in the visualized upper lungs. IMPRESSION: 1. IMMEDIATE POSTOPERATIVE CHANGES FOLLOWING PLACEMENT OF C2-T3 POSTERIOR CERVICOTHORACIC FUSION WITH WIDE LAMINECTOMIES. THERE WAS PREVIOUS C3-C6 ACDF. 2. OF NOTE, THE LEFT C4 TRANSFACET SCREW EXTENDS INTO THE C3-C4 FACET JOINT SPACE.
[2023-07-14] MEDS: HYDROcodone/APAP 10-325MG 1 EACH TAB PO PRN ×2 (19:31→23:00)
[2023-07-14] MEDS: CYCLOBENZAPRINE 5 MG TAB PO SCH (23:01)
[2023-07-14] MEDS ORDERED: ALBUTEROL NEBULIZED 2.5 MG/3 ML INHALATION PRN ×2 (23:23)
[2023-07-14] MEDS ORDERED: BUDESONIDE 1 MG/2 ML NEBU INHALATION PRN (23:23)
[2023-07-15] MEDS: PANTOPRAZOLE 40 MG TABLET PO SCH ×3 (00:07→22:08)
[2023-07-15] MEDS: hydrOXYzine pamoate 25 MG CAP PO SCH ×4 (00:07→22:07)
[2023-07-15] MEDS: AMITRIPTYLINE HCL 50 MG TAB PO SCH ×2 (00:07→22:08)
[2023-07-15] MEDS: PROPRANOLOL 20 MG TAB PO SCH ×3 (00:07→23:53)
[2023-07-15] MEDS: busPIRone HCl 5 MG TAB PO SCH ×4 (00:07→22:06)
[2023-07-15] MEDS: LORATADINE 10 MG TAB PO SCH ×3 (00:07→22:06)
[2023-07-15] MEDS: rOPINIRole HCL 4 MG TABLET PO SCH ×3 (00:07→22:06)
[2023-07-15] MEDS: HYDROmorphone 0.5 MG/0.5 ML SYRINGE IVP PRN (00:08)
[2023-07-15] MEDS: ATORVASTATIN 40 MG TAB PO SCH ×2 (00:13→22:08)
[2023-07-15] MEDS: BUTA/APAP/CAF/COD 50-325-40-30 CAP PO SCH ×3 (00:13→22:06)
[2023-07-15] MEDS: NON FORMULARY DRUG (Brivaracetam [Briviact] 100 MG Tablet) PO SCH ×3 (01:34→23:53)
[2023-07-15] MEDS: CLOBAZAM 10 MG PO SCH ×2 (01:34→08:02)
[2023-07-15] MEDS: PRAZOSIN 1 MG CAP PO SCH ×2 (01:35→17:24)
[2023-07-15] MEDS: oxyCODONE-APAP 5-325MG 1 EACH TAB PO PRN ×2 (02:25→19:38)
[2023-07-15] MEDS: LEVOTHYROXINE 88 MCG TAB PO SCH (02:26)
[2023-07-15] MEDS: HYDROmorphone 1 MG/ML 1 ML SYRINGE IVP PRN ×6 (03:10→22:55)
[2023-07-15] MEDS: HYDROcodone/APAP 10-325MG 1 EACH TAB PO PRN ×3 (04:05→13:23)
--- NOTE | 2023-07-15 07:04 | P.OP ---
Date of Procedure: 07/14/23 Preoperative Diagnosis: 1. S/P C3-7 ACDF FOR SEVERE SPONDYLOSIS, DEFORMITY AND STENOSIS, CONTINUED STENOSIS WITH PROGRESSIVE UE SYMPTOMS 2. PROGRESSIVE NEUROLOGICAL DEFICIT DUE TO CERVICAL MYELOPATHY 3. NECK PAIN 4. UE AND LE WEAKNESS, DEBILITY 5. COMPLEX MEDICAL AND SOCIAL PATIENT Postoperative Diagnosis: 1. S/P C3-7 ACDF FOR SEVERE SPONDYLOSIS, DEFORMITY AND STENOSIS, CONTINUED STENOSIS WITH PROGRESSIVE UE SYMPTOMS 2. PROGRESSIVE NEUROLOGICAL DEFICIT DUE TO CERVICAL MYELOPATHY 3. NECK PAIN 4. UE AND LE WEAKNESS, DEBILITY 5. COMPLEX MEDICAL AND SOCIAL PATIENT Procedure(s) Performed: 1. C2-T2 POSTERIORLATERAL INSTRUMENTED FUSION (81170, [id number]) 2. BILATERAL LAMINECTOMY, PARTIAL MEDIAL FACETECTOMY AND FORAMINOTOMY C2-C7 (00813, [id number]) 3. INSTRUMENTATION C2-T2 (78117) USE OF IONM Implants: -YESSI POSTERIOR C -MAGNATOS Anesthesia: GETA Surgeon: Leonel Mchugh Theoretical Physics Teacher #1: Magnolia Mosquera (WAS PRESENT AND ASSISTED WITH ALL ASPECTS OF THE CASE FROM POSITION TO DRESSING) Estimated Blood Loss (ml): 100 IV fluids (ml): 1,120 Urine output (ml): 250 Pathology: none sent Condition: stable Disposition: PACU Indications for Procedure: Ms. Weinstein is presenting for evaluation of cervical pain. It was my pleasure to have seen and examined Ms. Weinstein. In our visit today we have had a chance to go over subjective complaints, physical examination findings and treatments including the natural course history without intervention and various interventional options. The patients imaging demonstrates: XRay Cervical AP/lateral [address] [facility] on 06/19/23 of Cervical Spine: These are compared to intra and post op. There is some interval change at the CT junction. There is increased kyphosis at the CT junction. There is continued stenosis posteriorly. We discussed previously that she would need posterior surgery which she refused at that time and now she is back with continued symptoms upper extremity as well as myelopathy. Hardware in good position, no signs of any screw loosening, migration, dislocation, or failure. Overall good coronal alignment with stable sagittal balance. Good reduction maintained.No osseous abnormalities noted. On physical exam, Ms. Weinstein demonstrates: Since last visit patient reports an increase in right shoulder pain which she describes as aching and throbbing. Patient also states she has been increasingly dropping objects with her right hand. Patient reports aching, burning cervical pain since the time of their procedure. She presents with hard cervical collar present. Overall the patient has seen increased cervical pain and increased right upper extremity numbness and tingling. Patient states her migraines have increased. Ms. Weinstein notes that their symptoms are exacerbated with prolonged sitting and most activity. Patient is having severe sleep disturbances as well. She is currently taking [place], Flexeril, and Gabapentin with no relief of her symptoms. I have explained to the patient that as their condition progresses it will cause further neurological deficits and eventual paralysis. Based on the patients imaging, physical exam, and the rapid progression and disabling nature of their symptoms, at this time I recommend surgery in the form of a: C2-T2 decompression and fusion. I discussed the risk and benefits of this procedure at length with Ms. Weinstein. The patient agreed to considered pursuing the procedure abovementioned. Prior to surgery, she should follow up with her PCP (Cardio, ID, IM etc) for clearance. Questions were invited and answered, and the patient wishes to proceed as outlined below. Currently, I am recommendin.C2-T2 decompression and fusion STAT Description of Procedure: C2-T2 decompression and fusion The patient was seen and examined in the preoperative area. All preoperative protocols were followed. Informed consent was obtained, risks and benefits of the procedure were discussed at length. Risks including bleeding infection damage to the surrounding tissue and risk of reoperation were discussed with the patient. Risk of anesthesia up to and including was discussed with the patient. These are outlined in the risk review. They were willing to accept these risks and all of the risks of surgery. The patient was given a weight- based dose of antibiotics in the form of 2 g Ancef. The patient was seen and evaluated by the anesthesia team who deemed them fit for surgery. The site was marked, the patient was willing to proceed with the procedure. The patient was transferred to the operative suite by the Department of anesthesia. They were then drifted off to sleep by the department anesthesia and GETA was performed. The patient tolerated this well. pre-positioning motors were obtained.Howell in place from the floor. Once confirmation of lines and ventilation Barrett head clamp was placed on the patient and secured and the patient was transferred to a [prone Valentino table very carefully] with the Barrett headhunter the head was secured and placed into an optimal position x- ray confirmed this position. Post-positioning motors remained stable. All bony prominences including wrists, elbows, axilla, chest, hips, and thighs, and feet were padded very well. Special attention was paid to the genitalia and these were padded accordingly. SCDs were placed on bilateral lower extremities and were connected. Arms were well padded and placed tucked at his side thumbs down . Shoulders were gently taped down to the table.. Once in position, again we confirmed good ventilation capabilities and that lines were running appropriately. The patient's posterior cervical spine was then exposed. 1010s were placed outlining the incision site. Standard alcohol was used to clean the incision site and allowed to dry. C-arm was used to biomark the patient and confirm level for incision which was marked with a skin marker. Operative briefing was performed with all teams and everyone in agreement to proceed. The patient was then prepped and draped in a normal sterile fashion. Timeout was then performed and all parties were in agreement with the procedure to be performed. Midline skin incision made over the previously bio-marked area and dissection taken down midline to the SP of C2-T2. Subperiosteal dissection taken out over the lamina and lateral masses of C2-C7 and TVP of T1 and T2. Once exposure complete, the wound was irrigated and the C-arm brought in for imaging. A penfield 4 was used to bluntly dissect the medial border of C2 pedicle and placed for guidance. C arm used and a sole hole made for the starting point. The C2 pedicle was then drilled in 2 mm increments to 18 mm using a ball tip feeler in between each drill session to make sure within the 4 desai with a good bottom. Once this was accomplished a screw was selected and placed under l ateral fluoroscopic guidance. Screw had a good purchase. This was then repeated on the contralateral side. AP confirmed good placement of both screws. We then proceeded to the T1 and T2 screws bilaterally; a sole was used to remove the facet joint of C7 and to create a starting point for T1 and T2. Pedicle finder was then passed into T1 and T2 and imaging taken to confirm placement this was then removed and a tap placed ball-tipped probe was then placed and 4 desai of pedicle fell with good bottom. Screw was then measured and placed intoT1 and T2. This is repeated on the contralateral side. The wound was then irrigated. Lateral mass screws were then drilled to 12 mm and placed at each level. Each had a good bite. Rods were then sized and selected and cut to length. They were bent accordingly and lordosis. There is secured into C2 bilaterally and then sequentially her diet reduced into T1 and T2. All set screws were placed and were then final tightened and the position. Laminectomy was then performed using Ronjair followed by sole bilateral laminotomies and laminectomy was performed using high-speed bur Kerrison Rongeur and up-biting curette. Motors were run before and after decompression and they remain stable. Good pulsations of the cord were noted after decompression. The wound was then copiously irrigated with 3 L of Ancef irrigation followed by 3 L of gentamicin irrigation followed by 3 L of normal sterile saline. Facet joints were drilled at each level to allow for fusion Surgicel was placed over the dura. MagnetOs were placed in the posterior lateral gutters along with Azalia and DBM. This was impacted into position for fusion. 2 g of powdered bank was not placed deep within the wound and a deep drain was placed. A cross-link was placed and final tightened. We then proceeded with layered closure first in the deep fascia with #1 PDS then in the middle fascia with 0 Vicryl superficial fascia was closed with 2-0 Vicryl and skin closed with skin garland. The wound edges approximated very well. The wound was then cleaned and dressed sterilely with an operative foam dressing 4 x 4 and Tegaderm. The drain had good suction. The patient was placed in a hard cervical collar. The patient was transferred back to their hospital bed atraumatically. Barrett head clamp was removed and pin sites were clear. Drain continued to hold suc tion. Patient was then awakened and extubated by the department of anesthesia having tolerated the procedure very well with no complications. They were transferred to the postoperative care unit in stable condition.
[2023-07-15 07:05] LABS: Basophils % (A) 0 %; Eosinophils # (A) 0.1 k/uL (0-0.7); Eosinophils % (A) 1 %; HCT 42.6 % (34.0-46.0); HGB 13.7 gm/dL (11.4-16.0); Lymphocytes # (A) 1.1 k/uL (1.0-4.8); Lymphocytes % (A) 10 %; MCH 34.3 pg (25.0-35.0); MCHC 32.1 g/dL (31.0-37.0); MCV 106.7 fL (80.0-100.0); Macrocytosis Moderate; Mean Platelet Volume 7.7; Monocytes # (A) 0.8 k/uL (0-1.0); Monocytes % (A) 7 %; Neutrophils # (A) 8.8 k/uL (1.3-7.7); Neutrophils % (A) 80 %; Platelet Count 325 k/uL (150-450); RBC 3.99 m/uL (3.80-5.40); RDW 13.3 % (11.5-15.5)
[2023-07-15 07:13] LABS: African American GFR (CKD) >90 (>60 ml/min/1.73 sqM); Anion Gap 8 mmol/L; Blood Urea Nitrogen 12 mg/dL (7-17); Calcium 8.9 mg/dL (8.4-10.2); Carbon Dioxide 22 mmol/L (22-30); Chloride 105 mmol/L (98-107); Glucose 83 mg/dL (74-99); Non-African American GFR(CKD) >90 (>60 ml/min/1.73 sqM); Potassium 4.6 mmol/L (3.5-5.1); Sodium 135 mmol/L (137-145)
[2023-07-15] MEDS: ASENAPINE MALEATE 10 MG SUBLINGUAL SCH ×2 (08:02→23:54)
[2023-07-15] MEDS: SYMBICORT 80-4.5 MCG INHALER INHALATION SCH ×2 (08:11→20:07)
[2023-07-15] MEDS: IPRATROPIUM 0.5 MG/2.5 ML NEBU INHALATION SCH ×4 (08:11→20:07)
[2023-07-15] MEDS: SERTRALINE 100 MG TAB PO SCH (08:43)
[2023-07-15] MEDS: GABAPENTIN 400 MG CAP PO SCH ×3 (08:43→22:07)
[2023-07-15] MEDS: MAGNESIUM OXIDE 400 MG TAB PO SCH (08:44)
[2023-07-15] MEDS: CYCLOBENZAPRINE 5 MG TAB PO SCH ×3 (08:44→22:08)
[2023-07-15] MEDS: FUROSEMIDE 40 MG TAB PO SCH (08:44)
[2023-07-15] MEDS: TOPIRAMATE 25 MG TAB PO SCH ×2 (08:45→22:09)
[2023-07-15] MEDS: SENNOSIDES-DOCUSATE SODIUM 1 EACH TAB PO SCH (08:45)
[2023-07-15] MEDS ORDERED: SUMAtriptan succinate 50 MG TAB PO PRN (09:00)
[2023-07-15] MEDS: CLOBAZAM 10 MG TABLET PO SCH ×2 (13:24→23:53)
--- NOTE | 2023-07-15 13:47 | P.PN ---
Subjective Progress Note Date: 07/15/23 Principal diagnosis: 1. S/P C3-6 ACDF 2. C7 fracture 3. Upper extremity radiculopathy 4. Cervical myelopathy Patient seen and examined this afternoon. Patient is resting comfortable in bed. Patient does report increased pain to the posterior neck that radiates into bilateral shoulders and upper extremities. Informed patient to utilize ice packs to the posterior neck and bilateral shoulders. Medications will be reviewed. Patient does report that she has been up since procedure and is tolerating activity well. Surgical incision to the posterior cervical spine, dressing is intact with Hemovac present, 20ml output overnight. There is a staple to the right side of her temporal area. Patient does report that she has had a decrease in appetite prior to the procedure, strongly encouraged patient to increase her oral intake and to include protein. Patient verbalizes understanding. Patient does report that she has been urinating without difficulty. She does report that she is passing gas no bowel movement at this time. No acute concerns. Objective - Vital Signs Vital signs: Vital Signs Temp 97.4 F L 07/15/23 07:25 Pulse 74 07/15/23 12:12 Resp 18 07/15/23 07:25 BP 110/78 07/15/23 07:25 Pulse Ox 93 L 07/15/23 07:25 FiO2 Intake & Output 07/14/23 07/15/23 07/15/23 18:59 06:59 18:59 Intake Total 1520 650 Output Total 50 12 20 Balance 1470 638 -20 Weight 52 kg Intake: IV 1400 Intake, IV Titration 290 Amount Lactated Ringers 1,000 ml 240 @ 20 mls/hr IV .Q24H VIVI Rx#:[id number] ceFAZolin 2 gm In Sodium 50 Chloride 0.9% 50 ml @ 100 mls/hr IVPB Q8H VIVI Rx#: [id number] Oral 120 360 Output: Drainage 12 20 Posterior Neck 12 20 Estimated Blood Loss 50 Other: # Voids 1 2 1 - Exam Physical Examination General: The patient is awake and alert, in no acute distress Skin: Skin is warm and dry with no obvious rashes or lesions. Surgical incision to the posterior cervical spine. Hemovac is present with 20 mL output overnight. Eye: Pupils are equal, round and reactive to light, extra-ocular movements are intact; there is normal conjunctiva bilaterally. Neck: The neck is supple, there is moderate tenderness and limited ROM due to pain secondary to surgical procedure. Cardiovascular: There is a regular rate and rhythm. No murmur, rub or gallop is appreciated. Respiratory: Lungs are clear to auscultation, respirations are non-labored, breath sounds are equal. Gastrointestinal: Soft, non-distended, non-tender abdomen. Back: There is no tenderness to palpation in the midline, paralumbar, parathor acic or buttocks region. There is no obvious deformity . Musculoskeletal: ROM limited secondary to pain and stiffness from surgical procedure. Muscle strength in all major muscle groups of bilateral upper extremities 4/5, bilateral lower extremities 5/5. Neurological: CN 2-12 intact. There are no obvious motor or sensory deficits. Movement and coordination equal and intact. Sensory exam to light touch intact C5-T1 and intact from L2-S1. Reflexes 2/4 in bilateral upper and lower extremities. Negative Hoffmans, babinski, and clonus signs. Psychiatric: Cooperative, appropriate mood & affect, normal judgment. - Labs CBC & Chem 7: 07/15/23 06:10 07/15/23 06:10 Labs: Abnormal Lab Results - Last 24 Hours (Table) 07/15/23 07/15/23 Range/Units 06:10 06:10 WBC 11.0 H (3.8-10.6) k/uL MCV 106.7 H (80.0-100.0) fL Neutrophils # 8.8 H (1.3-7.7) k/uL Sodium 135 L (137-145) mmol/L Assessment and Plan Assessment: Postop day 1: C2-T2 decompression and fusion 1. S/P C3-6 ACDF 2. C7 fracture 3. Upper extremity radiculopathy 4. Cervical myelopathy Plan: -Appreciate security consultant and team management. -Activity: Ambulate QID, OOB all meals, up and about, limit lifting bending twisting to less than 5 lbs. Use walker or cane if needed for stability. -Daily PT/OT, increase ambulation strength and balance. -[place] Hard collar at all times, may remove for showers. -Pain control: Adequate at this time, please provide additional ice packs for patient to place on posterior cervical spine and bilateral shoulders. -Meds: reviewed -GI ppx: senna, Miralax -DVT PPX: Heparin -Hygiene: Shower today. Maintain dressing clean and dry. -Drains: Maintain for now. Continue to monitor and record output q shift. -Encourage IS 10x/hr -Dispo: Anticipate discharge home in the next 48-72hrs. *I reviewed and discussed this case with my attending Dr. Mchugh, whom has reviewed this chart and films and is in agreement with assessment and plan of care as outlined above. I have personally seen and examined the patient, performed the documentation and the assessment and plan as written. Number of minutes spent on the visit: 15m.
[2023-07-15] MEDS ORDERED: SENNOSIDES-DOCUSATE SODIUM 1 EACH TAB PO PRN (16:13)
--- NOTE | 2023-07-15 16:15 | P.CONS ---
History of Present Illness - Reason for Consult Consult date: 07/15/23 - History of Present Illness This is a 53 year old female with medical history of seizure disorder, Asthma, COPD, fibromyalgia, hypertension, hyperlipidemia, osteoarthritis, thyroid disorder, syncope, IBS, restless legs, anxiety, depression, bipolar, PTSD. Patient is a some day smoker. Patient comes in for scheduled C2-T2 decompression and fusion with Dr. Mchugh. 20 mL of drainage overnight to the hemovac. Evaluated in her room complaining of burning on the right neck. Currently on IV dilaudid, percocet and norco for pain management. Patient has been tolerating diet, has been resumed on seizure medications from home. No chest pain, no shortness of breath post procedure. Her main complaint today is pain. REVIEW OF SYSTEMS: CONSTITUTIONAL: No fever, no malaise, no fatigue. HEENT: No recent visual problems or hearing problems. Denied any sore throat. CARDIOVASCULAR: No chest pain, orthopnea, PND, no palpitations, no syncope. PULMONARY: No shortness of breath, no cough, no hemoptysis. GASTROINTESTINAL: No diarrhea, no nausea, no vomiting, no abdominal pain. NEUROLOGICAL: No headaches, no weakness, no numbness. HEMATOLOGICAL: Denies any bleeding or petechiae. GENITOURINARY: Denies any burning micturition, frequency, or urgency. MUSCULOSKELETAL/RHEUMATOLOGICAL: Denies any joint pain, swelling, or any muscle pain. ENDOCRINE: Denies any polyuria or polydipsia. The rest of the 14-point review of systems is negative. PHYSICAL EXAMINATION: GENERAL: The patient is alert and oriented x3, not in any acute distress. Well developed, well nourished. HEENT: Pupils are round and equally reacting to light. EOMI. No scleral icterus. No conjunctival pallor. Normocephalic, atraumatic. No pharyngeal erythema. No thyromegaly. CARDIOVASCULAR: S1 and S2 present. No murmurs, rubs, or gallops. PULMONARY: Chest is clear to auscultation, no wheezing or crackles. ABDOMEN: Soft, nontender, nondistended, normoactive bowel sounds. No palpable organomegaly. MUSCULOSKELETAL: No joint swelling or deformity. EXTREMITIES: No cyanosis, clubbing, or pedal edema. NEUROLOGICAL: Gross neurological examination did not reveal any focal deficits. Cervical colar in place. SKIN: No rashes. Assessment Postoperative day #1 C2-T2 decompression and fusion and C3-C6 ACDF. C7 fracture. Cervical radiculopathy affecting the upper extremities Hypertension Hx seizure disorder resumed on antiseizure medications Fibromyalgia Asthma/COPD with no acute exacerbation Hyperlipidemia hx. Osteoarthritis Hypothyroidism Hx of IBS Hx of restless leg Anxiety/Depression/Bipolar/PTSD Chronic nicotine use GI prophylaxis DVT prophylaxis as per primary Full Code Plan Resume appropriate home medications Continue seizure medication Continue pain management as per primary Lasix has been resumed postoperatively monitor BMP repeat tomorrow Encourage incentive spirometer 10 x an hr while awake Increase activity level PT/OT consultation Soft cervical collar in place AM labs Thank you kindly for this consultation we will continue to follow along with you this hospital stay. The impression and plan of care has been dictated by Nichelle Loya Nurse Practitioner as directed. Dr. Jayson MD I have performed a history and physical examination and medical decision making of this patient, discussed the same with the dictator, and agree with the dictators assessment and plan as written, documented as a scribe. Based on total visit time, I have performed more than 50% of this visit. Past Medical History Past Medical History: Asthma, COPD, Eye Disorder, Fibromyalgia, GERD/Reflux, Hyperlipidemia, Hypertension, Memory Impairment, Myocardial Infarction ([place]), Osteoarthritis ([place]), Pneumonia, Seizure Disorder, Skin Disorder, Syncope, Thyroid Disorder Additional Past Medical History / Comment(s): Patient states current difficulty swallowing food, states she starts coughing and it comes back up, states told doctor twice and they did nothing about it. Environmental allergies. Patient sta kristian gets swelling in legs. Hard of hearing. IBS, colitis, restless legs flexed syndrome, daily migraines, Vitamin D deficiency, benign left breast mass, gastritis, short term memory loss. Vision - "sees an orange aura." BILATERAL CATARACTS. Last seizure 04/15/21. "Legs are weak and balance is off, has fallen before. Had bone marrow checked for cancer. Last Myocardial Infarction Date:: unknown History of Any Multi-Drug Resistant Organisms: None Reported Past Surgical History: Appendectomy, Hysterectomy, Orthopedic Surgery, Uterine Ablation Additional Past Surgical History / Comment(s): D&C, bilateral knee arthroscopy, "spacers put in neck". Past Anesthesia/Blood Transfusion Reactions: No Reported Reaction Additional Past Anesthesia/Blood Transfusion Reaction / Comm: Severe anxiety coming out of anesthesia. No hx blood transfusion. Past Psychological History: Anxiety, Bipolar, Depression, PTSD Additional Psychological History / Comment(s): Borderline personality disorder. Smoking Status: Current every day smoker Past Alcohol Use History: None Reported Additional Past Alcohol Use History / Comment(s): Patient is a smoker of 2 packs per day since she was 17 years of age. Aware no smoking after midnight day prior to procedure. Past Drug Use History: Marijuana Additional Drug Use History / Comment(s): Has been using Marijuana since age 16. Currently uses once a day. Aware no use 24 hrs prior to procedure. - Past Family History Father Family Medical History: Cancer Additional Family Medical History / Comment(s): Father of pancreatic cancer at the age of 62yrs. Mother Family Medical History: Congestive Heart Failure (CHF) Additional Family Medical History / Comment(s): Mother of CHF at the age of 60yrs. Brother(s) Additional Family Medical History / Comment(s): Patient had 1 brother that at 5 months of age. Sister(s) Additional Family Medical History / Comment(s): Patient has one sister with history of depression and bipolar. Patient has 2 half-sisters and one at age 26 from overdose. Patient does not have any children. Medications and Allergies Home Medications Medication Instructions Recorded Confirmed Type Albuterol Nebulized [Ventolin 2.5 mg INHALATION RT-Q4H PRN 04/30/17 07/10/23 History Nebulized] Asenapine Maleate [Saphris] 10 mg SUBLINGUAL BID@0900,2200 04/30/17 07/10/23 History Sertraline [Zoloft] 200 mg PO QAM 04/30/17 07/10/23 History Atorvastatin [Lipitor] 40 mg PO Q3D 05/24/17 07/14/23 History Pantoprazole Sodium [Protonix] 40 mg PO BID 01/07/19 07/10/23 History Asenapine Maleate [Saphris] 2.5 mg SUBLINGUAL 1700 04/15/21 07/14/23 History Gabapentin 800 mg PO TID 04/15/21 07/10/23 History Propranolol [Inderal] 20 mg PO BID 04/15/21 07/14/23 History SUMAtriptan succinate [Imitrex] 100 mg PO DAILY PRN 04/15/21 07/10/23 History Topiramate [Trokendi Xr] 100 mg PO QAM 04/15/21 07/10/23 History busPIRone HCl [Buspar] 15 mg PO TID 04/15/21 07/14/23 History cloBAZam [Sympazan] 10 mg PO BID 04/15/21 07/10/23 History hydrOXYzine pamoate [Vistaril] 50 mg PO TID 04/16/21 07/10/23 History Albuterol Sulfate [Proair Hfa] 2 puff INHALATION RT-QID PRN 05/10/21 07/10/23 History Amitriptyline HCl [Elavil] 100 mg PO HS 05/10/21 07/14/23 History Furosemide [Lasix] 40 mg PO DAILY 05/10/21 07/14/23 History Prazosin HCl [Minipress] 2 mg PO BID@0300,1700 05/10/21 07/10/23 History rOPINIRole HCL [Requip] 4 mg PO BID 05/10/21 07/10/23 History Buta/APAP/Caf/Cod 13-404-60-30 1 cap PO BID 12/10/22 07/10/23 History [Fioricet w/Cod 59-682-36-30MG] Fluticasone/Umeclidin/Vilanter 1 inhalation INHALATION QAM 12/10/22 07/10/23 History [Trelegy Ellipta 100-62.5-25] Ibuprofen 800 mg PO Q8H PRN 12/10/22 07/10/23 History Levothyroxine Sodium [Synthroid] 88 mcg PO QAM 12/10/22 07/10/23 History Sennosides [Senokot] 17.2 mg PO HS 12/10/22 07/10/23 History Budesonide [Pulmicort] 1 mg INHALATION BID PRN 05/14/23 07/10/23 History Cetirizine HCl [Zyrtec] 10 mg PO BID 05/14/23 07/10/23 History HYDROcodone/APAP 10-325MG [Neversink 1 tab PO Q4-6H PRN #56 tab 05/19/23 07/10/23 Rx 10-325] Sennosides/Docusate Sodium [Senna 1 each PO DAILY PRN #20 capsule 05/19/23 07/10/23 Rx Plus 8.6-50 mg Softgel] Brivaracetam [Briviact] 100 mg PO BID 07/10/23 07/10/23 History Cyclobenzaprine [Flexeril] 10 mg PO BID 07/10/23 07/10/23 History Magnesium Oxide [Mag-Ox] 400 mg PO DAILY 07/10/23 07/14/23 History Allergies Allergy/AdvReac Type Severity Reaction Status Date / Time bee venom protein (honey bee) Allergy Anaphylaxis Verified 07/14/23 08:25 Physical Exam Vitals: Vital Signs Temp Pulse Resp BP Pulse Ox 07/15/23 07:25 97.4 F L 95 18 110/78 93 L 07/15/23 01:19 98.6 F 98 16 116/75 94 L 07/14/23 19:14 97.8 F 96 16 119/80 92 L 07/14/23 18:15 94 126/83 96 07/14/23 17:45 95 130/81 92 L 07/14/23 16:15 97 132/79 91 L 07/14/23 15:45 95 128/80 95 07/14/23 15:30 85 118/76 94 L 07/14/23 15:15 89 123/79 94 L 07/14/23 15:00 75 121/75 93 L 07/14/23 14:30 91 18 122/67 94 L 07/14/23 14:27 98 F 90 15 119/75 92 L 07/14/23 14:15 82 17 123/67 99 07/14/23 14:00 83 16 123/62 99 07/14/23 13:45 82 17 110/63 93 L 07/14/23 13:32 79 16 108/81 96 07/14/23 10:22 84 16 114/61 100 Intake and Output 07/14/23 07/15/23 07/15/23 22:59 06:59 14:59 Intake Total 120 650 Output Total 12 Balance 120 638 Intake: Intake, IV Titration 290 Amount Lactated Ringers 1,000 ml 240 @ 20 mls/hr IV .Q24H [facility] Rx#:[id number] ceFAZolin 2 gm In Sodium 50 Chloride 0.9% 50 ml @ 100 mls/hr IVPB Q8H [facility] Rx#: [id number] Oral 120 360 Output: Drainage 12 Posterior Neck 12 Other: # Voids 1 2 Results CBC & Chem 7: 07/15/23 06:10 07/15/23 06:10 Labs: Abnormal Lab Results - Last 24 Hours (Table) 07/15/23 07/15/23 Range/Units 06:10 06:10 WBC 11.0 H (3.8-10.6) k/uL MCV 106.7 H (80.0-100.0) fL Neutrophils # 8.8 H (1.3-7.7) k/uL Sodium 135 L (137-145) mmol/L Assessment and Plan Time with Patient: Less than 30
[2023-07-15] MEDS ORDERED: ASENAPINE MALEATE 2.5 MG SUBLINGUAL SCH (17:00)
[2023-07-15] MEDS: SENNOSIDES 8.6 MG TAB PO SCH (22:07)
[2023-07-16] MEDS: HYDROcodone/APAP 10-325MG 1 EACH TAB PO PRN ×2 (02:45→17:06)
[2023-07-16] MEDS: PRAZOSIN 1 MG CAP PO SCH ×2 (02:45→17:12)
[2023-07-16] MEDS: oxyCODONE-APAP 5-325MG 1 EACH TAB PO PRN (05:16)
[2023-07-16] MEDS: IPRATROPIUM 0.5 MG/2.5 ML NEBU INHALATION SCH (07:31)
[2023-07-16] MEDS: SYMBICORT 80-4.5 MCG INHALER INHALATION SCH (07:32)
[2023-07-16] MEDS: LACTATED RINGERS 1,000 ML IV SCH (07:52)
[2023-07-16] MEDS: LEVOTHYROXINE 88 MCG TAB PO SCH (07:52)
[2023-07-16] MEDS: hydrOXYzine pamoate 25 MG CAP PO SCH ×3 (08:29→22:14)
[2023-07-16] MEDS: SENNOSIDES-DOCUSATE SODIUM 1 EACH TAB PO SCH (08:29)
[2023-07-16] MEDS: busPIRone HCl 5 MG TAB PO SCH ×3 (08:31→22:15)
[2023-07-16] MEDS: SERTRALINE 100 MG TAB PO SCH (08:32)
[2023-07-16] MEDS: LORATADINE 10 MG TAB PO SCH ×2 (08:32→22:16)
[2023-07-16] MEDS: CYCLOBENZAPRINE 5 MG TAB PO SCH ×3 (08:32→22:13)
[2023-07-16] MEDS: FUROSEMIDE 40 MG TAB PO SCH (08:32)
[2023-07-16] MEDS: PANTOPRAZOLE 40 MG TABLET PO SCH ×2 (08:32→22:20)
[2023-07-16] MEDS: MAGNESIUM OXIDE 400 MG TAB PO SCH (08:32)
[2023-07-16] MEDS: GABAPENTIN 400 MG CAP PO SCH ×3 (08:32→22:14)
[2023-07-16] MEDS: ASENAPINE MALEATE 10 MG SUBLINGUAL SCH ×3 (08:34→22:15)
[2023-07-16] MEDS: TOPIRAMATE 25 MG TAB PO SCH ×2 (08:35→22:13)
[2023-07-16] MEDS: rOPINIRole HCL 4 MG TABLET PO SCH ×2 (08:35→22:14)
[2023-07-16] MEDS: PROPRANOLOL 20 MG TAB PO SCH ×2 (08:37→22:16)
[2023-07-16 08:59] LABS: BUN/Creat Ratio 13.43 Ratio (12.00-20.00); Blood Urea Nitrogen 9.4 mg/dL (9.0-27.0); Calcium 8.6 mg/dL (8.7-10.3); Carbon Dioxide 18.5 mmol/L (21.6-31.8); Chloride 100 mmol/L (96-109); Glucose 83 mg/dL (70-110); Potassium 3.5 mmol/L (3.5-5.5); Sodium 135 mmol/L (135-145)
[2023-07-16] MEDS ORDERED: TRELEGY ELLIPTA INHALATION SCH (10:15)
--- NOTE | 2023-07-16 10:34 | P.PN ---
Subjective Progress Note Date: 07/16/23 Principal diagnosis: 1. S/P C3-6 ACDF 2. C7 fracture 3. Upper extremity radiculopathy 4. Cervical myelopathy Patient seen and examined this morning. Patient is resting comfortable in bed. Patient does report pain to the posterior neck that radiates into bilateral shoulders and upper extremities. She does report that her pain is managed on current regimen. Patient does report that she has been up since procedure and is tolerating activity well. Surgical incision to the posterior cervical spine, dressing is intact with Hemovac present, 85ml output overnight. Encouraged patient to continue working with PT. Patient is expressing that she is worried about going home due to her toxic relationship with her significant other. Emotional support provided. Encouraged patient to discuss options with CM. No acute concerns. Objective - Vital Signs Vital signs: Vital Signs Temp 98.4 F 07/16/23 07:14 Pulse 103 H 07/16/23 07:14 Resp 18 07/16/23 07:14 BP 122/76 07/16/23 07:14 Pulse Ox 93 L 07/16/23 07:14 FiO2 Intake & Output 07/15/23 07/16/23 07/16/23 18:59 06:59 18:59 Intake Total 680 Output Total 20 80 Balance 660 -80 Intake: Oral 680 Output: Drainage 20 80 Posterior Neck 20 80 Other: Voiding Method Toilet # Voids 2 - Exam Physical Examination General: The patient is awake and alert, in no acute distress Skin: Skin is warm and dry with no obvious rashes or lesions. Surgical incision to the posterior cervical spine. Hemovac is present with 85 mL output overnight. Eye: Pupils are equal, round and reactive to light, extra-ocular movements are intact; there is normal conjunctiva bilaterally. Neck: The neck is supple, there is moderate tenderness and limited ROM due to pain secondary to surgical procedure. Cardiovascular: There is a regular rate and rhythm. No murmur, rub or gallop is appreciated. Respiratory: Lungs are clear to auscultation, respirations are non-labored, breath sounds are equal. Gastrointestinal: Soft, non-distended, non-tender abdomen. Back: There is no tenderness to palpation in the midline, paralumbar, parathoracic or buttocks region. There is no obvious deformity . Musculoskeletal: ROM limited secondary to pain and stiffness from surgical proc edure. Muscle strength in all major muscle groups of bilateral upper extremities 4/5, bilateral lower extremities 5/5. Neurological: CN 2-12 intact. There are no obvious motor or sensory deficits. M ovement and coordination equal and intact. Sensory exam to light touch intact C5-T1 and intact from L2-S1. Reflexes 2/4 in bilateral upper and lower extremities. Negative Hoffmans, babinski, and clonus signs. Psychiatric: Cooperative, appropriate mood & affect, normal judgment. - Labs CBC & Chem 7: 07/15/23 06:10 07/16/23 06:01 Labs: Abnormal Lab Results - Last 24 Hours (Table) 07/16/23 Range/Units 06:01 Carbon Dioxide 18.5 L (21.6-31.8) mmol/L Anion Gap 16.50 H (4.00-12.00) mmol/L Calcium 8.6 L (8.7-10.3) mg/dL Assessment and Plan Assessment: Postop day 2: C2-T2 decompression and fusion 1. S/P C3-6 ACDF 2. C7 fracture 3. Upper extremity radiculopathy 4. Cervical myelopathy Plan: -Appreciate webmethods consultant and team management. -Activity: Ambulate QID, OOB all meals, up and about, limit lifting bending twisting to less than 5 lbs. Use walker or cane if needed for stability. -Daily PT/OT, increase ambulation strength and balance. -[place] Hard collar at all times, may remove for showers. -Pain control: Adequate at this time, please provide additional ice packs for patient to place on posterior cervical spine and bilateral shoulders. -Meds: reviewed -GI ppx: senna, Miralax -DVT PPX: Heparin -Hygiene: Shower today. Maintain dressing clean and dry. -Drains: Maintain for now. Continue to monitor and record output q shift. -Encourage IS 10x/hr -Dispo: Anticipate discharge home in the next 24hrs *I reviewed and discussed this case with my attending Dr. Mchugh, whom has reviewed this chart and films and is in agreement with assessment and plan of care as outlined above. I have personally seen and examined the patient, performed the documentation and the assessment and plan as written. Number of minutes spent on the visit: 15m.
[2023-07-16] MEDS: TRELEGY ELLIPTA INHALATION SCH (10:41)
[2023-07-16] MEDS: BUTA/APAP/CAF/COD 50-325-40-30 CAP PO SCH ×2 (10:42→22:17)
[2023-07-16] MEDS: NON FORMULARY DRUG (Brivaracetam [Briviact] 100 MG Tablet) PO SCH ×2 (10:43→22:16)
[2023-07-16] MEDS: CLOBAZAM 10 MG TABLET PO SCH ×2 (10:43→22:17)
[2023-07-16] MEDS: HYDROmorphone 0.5 MG/0.5 ML SYRINGE IVP PRN (10:46)
--- NOTE | 2023-07-16 15:11 | P.PN ---
Subjective Progress Note Date: 07/16/23 This is a 53 year old female with medical history of seizure disorder, Asthma, COPD, fibromyalgia, hypertension, hyperlipidemia, osteoarthritis, thyroid disorder, syncope, IBS, restless legs, anxiety, depression, bipolar, PTSD. Patient is a some day smoker. Patient comes in for scheduled C2-T2 decompression and fusion with Dr. Mchugh. 20 mL of drainage overnight to the hemovac. Evaluated in her room complaining of burning on the right neck. Currently on IV dilaudid, percocet and norco for pain management. Patient has been tolerating diet, has been resumed on seizure medications from home. No chest pain, no shortness of breath post procedure. Her main complaint today is pain. 07/16/2023 Patient is evaluated today postoperative day #1 cervical spine surgery. She reports pain is improving somewhat today, cervical collar is in place. Surgical drain with increased drainage overnight and will be kept in today. Patient is tearful today regarding medications. OK to continue the trelegy, briviact and saphris from home however explained they need to be barcoded in order to admininster and she is in agreeance with this. Review of Systems Constitutional: Denied any fatigue denied any fever. Cardio vascular: denied any chest pain, palpitations Gastrointestinal: denied any nausea, vomiting, diarrhea Pulmonary: Denied any shortness of breath cough Neurologic denied any new focal deficits All inpatient medications were reviewed and appropriate changes in these medications as dictated in the interval history and assessment and plan. PHYSICAL EXAMINATION: GENERAL: The patient is alert and oriented x3, not in any acute distress. Well developed, well nourished. HEENT: Pupils are round and equally reacting to light. EOMI. No scleral icterus. No conjunctival pallor. Normocephalic, atraumatic. No pharyngeal erythema. No thyromegaly. CARDIOVASCULAR: S1 and S2 present. No murmurs, rubs, or gallops. PULMONARY: Chest is clear to auscultation, no wheezing or crackles. ABDOMEN: Soft, nontender, nondistended, normoactive bowel sounds. No palpable organomegaly. MUSCULOSKELETAL: No joint swelling or deformity. EXTREMITIES: No cyanosis, clubbing, or pedal edema. NEUROLOGICAL: Gross neurological examination did not reveal any focal deficits. Cervical colar in place. SKIN: No rashes. Assessment Postoperative day #2 C2-T2 decompression and fusion and C3-C6 ACDF. C7 fracture. Cervical radiculopathy affecting the upper extremities Hypertension Hx seizure disorder resumed on antiseizure medications Fibromyalgia Asthma/COPD with no acute exacerbation Hyperlipidemia hx. Osteoarthritis Hypothyroidism Hx of IBS Hx of restless leg Anxiety/Depression/Bipolar/PTSD Chronic nicotine use GI prophylaxis DVT prophylaxis as per primary Full Code Plan Resume appropriate home medications Continue seizure medication Continue pain management as per primary Encourage incentive spirometer 10 x an hr while awake Increase activity level PT/OT consultation Cervical collar in place AM labs Thank you kindly for this consultation we will continue to follow along with you this hospital stay. The impression and plan of care has been dictated by Nichelle Loya Nurse Practitioner as directed. Dr. Jayson MD I have performed a history and physical examination and medical decision making of this patient, discussed the same with the dictator, and agree with the dictators assessment and plan as written, documented as a scribe. Based on total visit time, I have performed more than 50% of this visit. Objective - Vital Signs Vital signs: Vital Signs Temp 98.3 F 07/16/23 12:19 Pulse 97 07/16/23 12:19 Resp 16 07/16/23 12:19 BP 129/85 07/16/23 12:19 Pulse Ox 99 07/16/23 12:19 FiO2 Intake & Output 07/15/23 07/16/23 07/16/23 18:59 06:59 18:59 Intake Total 680 Output Total 20 160 Balance 660 -160 Intake: Oral 680 Output: Drainage 20 160 Posterior Neck 20 160 Other: Voiding Method Toilet Toilet # Voids 2 - Labs CBC & Chem 7: 07/15/23 06:10 07/16/23 06:01 Labs: Abnormal Lab Results - Last 24 Hours (Table) 07/16/23 Range/Units 06:01 Carbon Dioxide 18.5 L (21.6-31.8) mmol/L Anion Gap 16.50 H (4.00-12.00) mmol/L Calcium 8.6 L (8.7-10.3) mg/dL Assessment and Plan Time with Patient: Less than 30
[2023-07-16] MEDS ORDERED: ASENAPINE MALEATE 2.5 MG SUBLINGUAL SCH (17:00)
[2023-07-16] MEDS: AMITRIPTYLINE HCL 50 MG TAB PO SCH (22:15)
[2023-07-16] MEDS: HEPARIN SODIUM,PORCINE 5,000 UNIT/ML 1 ML VIAL SQ SCH (22:16)
[2023-07-16] MEDS: SENNOSIDES 8.6 MG TAB PO SCH (22:16)
[2023-07-17] MEDS: HYDROmorphone 0.5 MG/0.5 ML SYRINGE IVP PRN ×2 (02:35→06:28)
[2023-07-17] MEDS: PRAZOSIN 1 MG CAP PO SCH ×2 (04:26→09:25)
[2023-07-17] MEDS: LEVOTHYROXINE 88 MCG TAB PO SCH (06:23)
[2023-07-17 07:35] VITALS: BP 100/66; PULSE 103; RESP 16; TEMP 97.5
[2023-07-17] MEDS: HYDROcodone/APAP 10-325MG 1 EACH TAB PO PRN (07:54)
[2023-07-17] MEDS: TRELEGY ELLIPTA INHALATION SCH (08:09)
--- NOTE | 2023-07-17 08:38 | P.PN ---
Subjective Progress Note Date: 07/17/23 Principal diagnosis: 1. S/P C3-6 ACDF 2. C7 fracture 3. Upper extremity radiculopathy 4. Cervical myelopathy Patient seen and examined this morning. Patient is assisted back to bed from restroom. She is tolerating activity well. Patient reports that her pain is controlled on current regimen. Surgical incision to the posterior cervical spin e, edges are well approximated with garland intact. No active drainage. Hemovac has been removed at this time, new dressing has been applied. [place] hard cervical collar is intact. Patient reports that she feels comfortable going home and would like to be discharged today. No acute concerns. Objective - Vital Signs Vital signs: Vital Signs Temp 98.8 F 07/17/23 02:23 Pulse 97 07/17/23 02:23 Resp 17 07/17/23 02:23 BP 137/94 07/17/23 04:21 Pulse Ox 93 L 07/17/23 02:23 FiO2 Intake & Output 07/16/23 07/16/23 07/17/23 06:59 18:59 06:59 Intake Total 820 Output Total 200 50 Balance -200 770 Intake: Oral 820 Output: Drainage 200 50 Posterior Neck 200 50 Other: Voiding Method Toilet Toilet # Voids 2 - Exam Physical Examination General: The patient is awake and alert, in no acute distress Skin: Skin is warm and dry with no obvious rashes or lesions. Surgical incision to the posterior cervical spine, edges are well approximated with garland intact. No active drainage. Clean dressing applied. Eye: Pupils are equal, round and reactive to light, extra-ocular movements are intact; there is normal conjunctiva bilaterally. Neck: The neck is supple, there is moderate tenderness and limited ROM due to pain secondary to surgical procedure. Cardiovascular: There is a regular rate and rhythm. No murmur, rub or gallop is appreciated. Respiratory: Lungs are clear to auscultation, respirations are non-labored, breath sounds are equal. Gastrointestinal: Soft, non-distended, non-tender abdomen. Back: There is no tenderness to palpation in the midline, paralumbar, parathoracic or buttocks region. There is no obvious deformity . Musculoskeletal: ROM limited secondary to pain and stiffness from surgical procedure. Muscle strength in all major muscle groups of bilateral upper extremities 4/5, bilateral lower extremities 5/5. Neurological: CN 2-12 intact. There are no obvious motor or sensory deficits. Movement and coordination equal and intact. Sensory exam to light touch intact C5-T1 and intact from L2-S1. Reflexes 2/4 in bilateral upper and lower extremities. Negative Hoffmans, babinski, and clonus signs. Psychiatric: Cooperative, appropriate mood & affect, normal judgment. - Labs CBC & Chem 7: 07/15/23 06:10 07/16/23 06:01 Labs: Abnormal Lab Results - Last 24 Hours (Table) 07/16/23 Range/Units 06:01 Carbon Dioxide 18.5 L (21.6-31.8) mmol/L Anion Gap 16.50 H (4.00-12.00) mmol/L Calcium 8.6 L (8.7-10.3) mg/dL Assessment and Plan Assessment: Postop day 3: C2-T2 decompression and fusion 1. S/P C3-6 ACDF 2. C7 fracture 3. Upper extremity radiculopathy 4. Cervical myelopathy Plan: -Appreciate marketing operations consultant and team management. -Activity: Ambulate QID, OOB all meals, up and about, limit lifting bending twisting to less than 5 lbs. Use walker or cane if needed for stability. -Daily PT/OT, increase ambulation strength and balance. -[place] Hard collar at all times, may remove for showers. -Pain control: Adequate at this time, please provide additional ice packs for patient to place on posterior cervical spine and bilateral shoulders. -Meds: reviewed -GI ppx: senna, Miralax -DVT PPX: Heparin -Hygiene: Shower today. Maintain dressing clean and dry. -Encourage IS 10x/hr -Dispo: Discharge home today. *I reviewed and discussed this case with my attending Dr. Mchugh, whom has reviewed this chart and films and is in agreement with assessment and plan of care as outlined above. I have personally seen and examined the patient, performed the documentation and the assessment and plan as written. Number of minutes spent on the visit: 15m.
--- NOTE | 2023-07-17 08:39 | P.DS ---
Providers Date of admission: 07/14/23 08:10 Expected date of discharge: 07/17/23 Attending physician: Leonel Mchugh DO Consults: 07/14/23 13:32 Consult Physician Routine Consulting Provider: Leighann Jennings Reason/Comments: Medical Management Do you want consulting provider notified?: Yes Primary care physician: Harpreet Mcduffie Eleanor Slater Hospital Course: Hospital Course: The patient was evaluated preoperatively and found to have the diagnosis of cervical spondylosis with stenosis. They underwent appropriate preoperative care and were willing to undergo the intended procedure. They underwent a successful C2-T2 decompression and fusion, were recovered appropriately and sent to the floor. While on the floor they worked with physical therapy, occupational therapy and nursing to enhance their recovery experience. Their pain was well controlled through their stay and they were started on appropriate medications, DVT ppx modalities, activity and dietary needs. Daily labs were monitored closely, and transfusions were only used when necessary. Medicine as well as other consulting services have made their input and have helped with our team approach and multidisciplinary care. PT milestones have been met and passed and they have made the recommendation of home for this patient and treating providers agree with this care path. The patient will be discharged home with appropriate medications, instructions and follow-up information and in stable condition. Plan - Discharge Summary Discharge Rx Participant: No New Discharge Prescriptions: New cefaDROXiL [Duricef] 500 mg PO Q12HR #10 cap Sennosides/Docusate Sodium [Senna Plus 8.6-50 mg Softgel] 1 each PO DAILY PRN #20 capsule PRN Reason: Constipation Cyclobenzaprine [Flexeril] 5 mg PO TID PRN #40 tablet PRN Reason: Muscle Spasm HYDROcodone/APAP 10-325MG [[place] 10-325] 1 tab PO Q4-6H PRN #42 tab PRN Reason: Pain No Action Sertraline [Zoloft] 200 mg PO QAM Albuterol Nebulized [Ventolin Nebulized] 2.5 mg INHALATION RT-Q4H PRN PRN Reason: sob Asenapine Maleate [Saphris] 10 mg SUBLINGUAL BID@0900,2200 Atorvastatin [Lipitor] 40 mg PO Q3D Pantoprazole Sodium [Protonix] 40 mg PO BID Gabapentin 800 mg PO TID Propranolol [Inderal] 20 mg PO BID busPIRone HCl [Buspar] 15 mg PO TID SUMAtriptan succinate [Imitrex] 100 mg PO DAILY PRN PRN Reason: Migraine Headache Albuterol Sulfate [Proair Hfa] 2 puff INHALATION RT-QID PRN PRN Reason: Shortness Of Breath Furosemide [Lasix] 40 mg PO DAILY Prazosin HCl [Minipress] 2 mg PO BID@0300,1700 Sennosides [Senokot] 17.2 mg PO HS Levothyroxine Sodium [Synthroid] 88 mcg PO QAM Fluticasone/Umeclidin/Vilanter [Trelegy Ellipta 100-62.5-25] 1 inhalation INHALATION QAM Budesonide [Pulmicort] 1 mg INHALATION BID PRN PRN Reason: Shortness Of Breath Cetirizine HCl [Zyrtec] 10 mg PO BID Brivaracetam [Briviact] 100 mg PO BID Cyclobenzaprine [Flexeril] 10 mg PO BID Magnesium Oxide [Mag-Ox] 400 mg PO DAILY cloBAZam [Sympazan] 10 mg PO BID Topiramate [Trokendi Xr] 100 mg PO QAM Asenapine Maleate [Saphris] 2.5 mg SUBLINGUAL 1700 hydrOXYzine pamoate [Vistaril] 50 mg PO TID Amitriptyline HCl [Elavil] 100 mg PO HS rOPINIRole HCL [Requip] 4 mg PO BID Ibuprofen 800 mg PO Q8H PRN PRN Reason: Pain [place]/APAP/Caf/Cod [id number] [Fioricet w/Cod [id number]] 1 cap PO BID HYDROcodone/APAP 10-325MG [[place] 10-325] 1 tab PO Q4-6H PRN #56 tab PRN Reason: Pain Sennosides/Docusate Sodium [Senna Plus 8.6-50 mg Softgel] 1 each PO DAILY PRN #20 capsule PRN Reason: Constipation Discharge Medication List Albuterol Nebulized [Ventolin Nebulized] 2.5 mg INHALATION RT-Q4H PRN 04/30/17 [History] Asenapine Maleate [Saphris] 10 mg SUBLINGUAL BID@0900,2200 04/30/17 [History] Sertraline [Zoloft] 200 mg PO QAM 04/30/17 [History] Atorvastatin [Lipitor] 40 mg PO Q3D 05/24/17 [History] Pantoprazole Sodium [Protonix] 40 mg PO BID 01/07/19 [History] Asenapine Maleate [Saphris] 2.5 mg SUBLINGUAL 1700 04/15/21 [History] Gabapentin 800 mg PO TID 04/15/21 [History] Propranolol [Inderal] 20 mg PO BID 04/15/21 [History] SUMAtriptan succinate [Imitrex] 100 mg PO DAILY PRN 04/15/21 [History] Topiramate [Trokendi Xr] 100 mg PO QAM 04/15/21 [History] busPIRone HCl [Buspar] 15 mg PO TID 04/15/21 [History] cloBAZam [Sympazan] 10 mg PO BID 04/15/21 [History] hydrOXYzine pamoate [Vistaril] 50 mg PO TID 04/16/21 [History] Albuterol Sulfate [Proair Hfa] 2 puff INHALATION RT-QID PRN 05/10/21 [History] Amitriptyline HCl [Elavil] 100 mg PO HS 05/10/21 [History] Furosemide [Lasix] 40 mg PO DAILY 05/10/21 [History] Prazosin HCl [Minipress] 2 mg PO BID@0300,1700 05/10/21 [History] rOPINIRole HCL [Requip] 4 mg PO BID 05/10/21 [History] Buta/APAP/Caf/Cod [id number] [Fioricet w/Cod 48-288-81-30MG] 1 cap PO BID 12/10/22 [History] Fluticasone/Umeclidin/Vilanter [Trelegy Ellipta 100-62.5-25] 1 inhalation INHALATION QAM 12/10/22 [History] Ibuprofen 800 mg PO Q8H PRN 12/10/22 [History] Levothyroxine Sodium [Synthroid] 88 mcg PO QAM 12/10/22 [History] Sennosides [Senokot] 17.2 mg PO HS 12/10/22 [History] Budesonide [Pulmicort] 1 mg INHALATION BID PRN 05/14/23 [History] Cetirizine HCl [Zyrtec] 10 mg PO BID 05/14/23 [History] HYDROcodone/APAP 10-325MG [[place] 10-325] 1 tab PO Q4-6H PRN #56 tab 05/19/23 [Rx] Sennosides/Docusate Sodium [Senna Plus 8.6-50 mg Softgel] 1 each PO DAILY PRN #20 capsule 05/19/23 [Rx] Brivaracetam [Briviact] 100 mg PO BID 07/10/23 [History] Cyclobenzaprine [Flexeril] 10 mg PO BID 07/10/23 [History] Magnesium Oxide [Mag-Ox] 400 mg PO DAILY 07/10/23 [History] Cyclobenzaprine [Flexeril] 5 mg PO TID PRN #40 tablet 07/16/23 [Rx] HYDROcodone/APAP 10-325MG [[place] 10-325] 1 tab PO Q4-6H PRN #42 tab 07/16/23 [Rx] Sennosides/Docusate Sodium [Senna Plus 8.6-50 mg Softgel] 1 each PO DAILY PRN #20 capsule 07/16/23 [Rx] cefaDROXiL [Duricef] 500 mg PO Q12HR #10 cap 07/16/23 [Rx] Follow up Appointment(s)/Referral(s): Harpreet Ballard [Primary Care Provider] - 1 Week Leonel Mchugh DO [Doctor of Osteopathic Medicine] - 2 Weeks Activity/Diet/Wound Care/Special Instructions: Spine Discharge and Recovery Instructions Date of Surgery: 07/14/2023 Diagnosis: Cervical stenosis Procedure: C2-T2 decompression and fusion Medications: See medication list All medication refills should be obtained through your primary care doctor or your clinic spine surgeon. Please discuss prescription refills at your follow up appointment. Do not call the hospital for medication refills. Activity: Encourage ambulation with assist of walker, Up and about 6-8x daily PT/OT daily work on balance, strength and mobility Up in chair with all meals Shower daily Brace: Use brace when up and about, do not wear in bed or shower Dressing: Leave your dressing in place for a total of 3 days post operatively. Then you may remove your dressing and leave open to air. Keep the area clean and if not able to keep area clean, then cover with sterile gauze and tape. Showering: You may shower 3 days after your procedure allowing soap and water to run over incision. Do not scrub. Do not soak. Blot dry. Follow up: Please confirm a follow up appointment with your surgeon 2 weeks post operatively. Please make an appointment to follow up with your PCP in 1-2 weeks after surgery for evaluation 3 phase, 3-week plan POST OP WEEKS 1-3 1. Lifting/carrying/pushing/pulling limited to less than 5 pounds. 2. Do not sit for longer than 15 minutes at one time. Get up and walk around. Prolonged sitting is NOT advised. If you lay down, see if you can tolerate laying down on you front (belly side) 3. Walk for periods of 15 minutes = 1 mile but no longer; do it multiple times times each day. 4. Ice your low back after activity. POST OP WEEKS 3-6 1. Lifting limited to less than 20 pounds. 2. Do not sit for longer than 30 minutes at a time. Frequently change positions. Use a sit-to stand workstation or take frequent breaks from sitting if you have returned to work. 3. Walk for 30 minutes each day. If possible, do these three or more times a day POST OP WEEKS 6+ At your 6-week appointment we will give you a physical therapy referral to focus on a core stabilization and strengthening program. You should also work on leg & buttock strengthening, hamstring & quadriceps stretching, and continue a low impact aerobic activity program such as swimming, walking, or riding a stationary bicycle. During the initial 6 weeks after your surgery, you are at the highest risk of re-injuring your spine. You should generally avoid BLTs (bending, lifting and twisting combination motions) and follow the above guidelines to reduce the chance of reinjury. You can anticipate post op appointments in our office at approximately 3 weeks and 6 weeks after your surgery. INCISION CARE: If your incision is not draining you do NOT need to cover it with a dressing. Keep your incision clean, dry and intact. In most cases, we apply skin glue, garland or sutures to the incision at the time of surgery. This will be like a crust or have the appearance of a scab and will fall off in time on its own. The stitches or garland need to be removed at 3 weeks post op appointment. You may begin to shower 3 days after surgery (this allows the glue to amador well). However, please avoid scrubbing the incision site or peeling off any of the skin glue. This will ensure optimal healing of your incision. Also, during this time avoid soaking the incision area in water - this includes swimming pools, hot tubs or baths. No ointments, lotions or oils on the incision until your surgeon allows. Leave garland, sutures or glue in place. Neurological dysfunction that comes on suddenly can also be a sign of a stroke. Below some common symptoms of a stroke are listed: B - balance difficulty such as sudden onset walking or leaning to one side - NEW E - eye problem such as sudden double vision or trouble seeing on one side - NEW F - Facial weakness or numbness on one side - NEW A - Arm or leg weakness or numbness on one side - NEW S - Slurred speech or difficulty with word finding - NEW T - Time is BRAIN! Call 911 as soon as you recognize these symptoms Diet: Consume a regular diet rich in vegetables and lean protein such as chicken or fish. You should consume in a ratio of approximately 20% fats|40% carbohydrates|40%protein. Vegetables, sweet potatoes, brown rice or quinoa are examples of good carbohydrates. Chips, white bread, cookies and sweets/sugar are examples of bad carbohydrates. Limit your bad carbs, go wild with good c arbs. "Life's Simple 7" Guidelines as per [place] [employer] These will help you reclaim your life after surgery and help desk engineer in your recovery, keeping in mind your restrictions. (1) Get Active. Physical activity can help people lose weight, control high blood pressure and cholesterol, feel emotionally better, and sleep better. (2) Control Cholesterol. Avoid a diet high in saturated fat, trans fat, & cholesterol. Limit whole milk & cream, ice cream, butter, egg yolks, processed meats (like sausage and hot dogs), and fatty meats. Choose healthy foods that are low in saturated fat, trans fat and cholesterol which include: Fruits and vegetables, fiber rich grain products (like whole grain pasta and brown rice), lean meat such as chicken, fish, nuts, seeds, and legumes. (3) Eat Better. Eat small portions. Shop at the grocery with a list and do not stray from it. Tips for a healthy diet include: Limit sodium intake to less than 1500mg daily, avoid prepackaged, processed, and fast foods, choose a diet rich in fruits, vegetables, and whole grain, high fiber foods, and limit saturated & cholesterol in your diet. (4) Manage Blood Pressure. If you have high blood pressure, you should have a cuff at home so that you can check your blood pressure regularly. Be sure you have a good cuff. An arm one is generally better than a wrist one. Bring the cuff to a doctor's appointment to validate that the measurements that your cuff are taking are accurate. Take your blood pressure twice daily when you are sitting down and relaxing. Record the numbers in a log and bring this log with you to your doctors' appointments. (5) Lose Weight if your BMI is above 25. A healthy BMI is between 19-25. To calculate Your BMI, you may use a Standard BMI Calculator on the NIH BMI website: <www.nhlbi.nih.gov/guidelines/obesity/BMI/bmicalc.htm>. Weigh oneself daily. If you are overweight, set a goal to lose weight. A pound a week loss if needed is a good target. (6) Reduce Blood Sugar. Limit foods and liquids with "added sugars." (Added sugars include sucrose, fructose, glucose, maltose, dextrose, high fructose corn syrup, corn syrup, concentrated fruit juice and honey). (7) Stop Smoking. If you smoke, quitting smoking is one of the best things that you can do for your health. Smoking increases your risk of heart attack, stroke, and peripheral vascular disease, which is a build-up of plaque in your arteries. Please discard all the cigarettes and lighters in your house. Have a plan for what you will do when you have the urge to smoke. Direct and second- hand smoke shortens your life as well as the lives of your family, friends and others around you. For your health and the health of those around you, please consider quitting! Proper Bending Body Mechanics: Maintain a wide stance with one foot slightly in front of the other. Keep your back straight. Bend utilizing the strength in your hips and knees. Do not bend at the waist. Maintain the lifted object at your waist-level close to your body. Avoid lifting weight that causes immediately pain or pain anywhere in the body afterwards. Smoking/Nicotine If there was ever one thing that you could do to increase your overall health, decrease your risk of cardiovascular problems by about 39% the second you make the choice, it is to STOP SMOKING. Your body's most instant gratification is the second you stop smoking. We have all heard the studies, read the articles but it is true, smoking is extremely bad for your overall health, and moreover it is detrimental to your bone health. Nicotine, IN ANY FORM, kills bone cells, prevents your body from healing fractures, and significantly prolongs healing after surgery. In spine surgery specifically, it increases your risk of not healing your bones to create a fusio n and increases your risk of having a revision surgery due to this up to 60%. I know it is hard. I know it feels impossible. But there are ways. Take control of your life. We are here to help you through it. And when you are ready, ask us and we can direct you to help if you desire. Use the START Plan to Quit Smoking (please visit the [employer] website listed below for more information): S = Set a quit date. Choose a date within the next 2 weeks, so you have enough time to prepare without losing your motivation to quit. If you mainly smoke at work, quit on the weekend, so you have a few days to adjust to the change. T = Tell family, friends, and co-workers that you plan to quit. Let your friends and family in on your plan to quit smoking and tell them you need their support and encouragement to stop. Look for a quit gabrielle who wants to stop smoking as well. You can help each other get through the rough times. A = Anticipate and plan for the challenges you'll face while quitting. Most people who begin smoking again do so within the first 3 months. You can help yourself make it through by preparing ahead for common challenges, such as nicotine withdrawal and cigarette cravings. R = Remove cigarettes and other tobacco products from your home, car, and work. Throw away all your cigarettes (no emergency pack!), lighters, ashtrays, and matches. Wash your clothes and freshen up anything that smells like smoke. Shampoo your car, clean your drapes and carpet, and steam your furniture. T = Talk to your doctor about getting help to quit. Your doctor can prescribe medication to help with withdrawal and suggest other alternatives. If you can't see a doctor, you can get many products over the counter at your local pharmacy or grocery store, including the nicotine patch, nicotine lozenges, and nicotine gum. Resources for Quitting Smoking: <https://www.[place].gov/documents/[facility]/Quit_Tobacco_Resources_for_patients_313 480_7.pdf> Supplementation: Take recommended dosages of Vitamin D and Calcium to help fortify your bones and help them to heal. See your health maintenance packet for dosages and recommended levels. DVT/VTE prophylaxis: You will be given compression stockings from the hospital. Wear these daily for the first two weeks after surgery. You may take them off at night. You may be prescribed a medication to help thin your blood. Take this as directed. If you are not prescribed this medication, early and frequent ambulation has been shown to be the best prophylaxis to deep vein thrombosis and sequelae related to this event. Discharge Disposition: HOME SELF-CARE
[2023-07-17] MEDS: PROPRANOLOL 20 MG TAB PO SCH (09:25)
[2023-07-17] MEDS: TOPIRAMATE 25 MG TAB PO SCH (09:25)
[2023-07-17] MEDS: HEPARIN SODIUM,PORCINE 5,000 UNIT/ML 1 ML VIAL SQ SCH (09:25)
[2023-07-17] MEDS: FUROSEMIDE 40 MG TAB PO SCH (09:26)
[2023-07-17] MEDS: SERTRALINE 100 MG TAB PO SCH (09:26)
[2023-07-17] MEDS: LORATADINE 10 MG TAB PO SCH (09:26)
[2023-07-17] MEDS: busPIRone HCl 5 MG TAB PO SCH (09:26)
[2023-07-17] MEDS: MAGNESIUM OXIDE 400 MG TAB PO SCH (09:26)
[2023-07-17] MEDS: hydrOXYzine pamoate 25 MG CAP PO SCH (09:26)
[2023-07-17] MEDS: GABAPENTIN 400 MG CAP PO SCH (09:27)
[2023-07-17] MEDS: SENNOSIDES-DOCUSATE SODIUM 1 EACH TAB PO SCH (09:27)
[2023-07-17] MEDS: PANTOPRAZOLE 40 MG TABLET PO SCH (09:27)
[2023-07-17] MEDS: CYCLOBENZAPRINE 5 MG TAB PO SCH (09:27)
[2023-07-17] MEDS: rOPINIRole HCL 4 MG TABLET PO SCH (09:28)
[2023-07-17] MEDS: ASENAPINE MALEATE 10 MG SUBLINGUAL SCH (09:29)
[2023-07-17] MEDS: BUTA/APAP/CAF/COD 50-325-40-30 CAP PO SCH (10:42)
[2023-07-17] MEDS: CLOBAZAM 10 MG TABLET PO SCH (10:43)
[2023-07-17] MEDS: NON FORMULARY DRUG (Brivaracetam [Briviact] 100 MG Tablet) PO SCH (10:44)
== END 2023-07-17 10:57 | disposition home or self-care (01) | DRG 304 ==
LOC: 2ORMAIN 08:10 → 5NMEDONC 14:28
PROVIDERS: ADMIT Orthopaedic Surgery; ATTEND Orthopaedic Surgery
PROC: 0RG20AJ Fusion of 2 or more Cervical Vertebral Joints with Interbody Fusion Device, Posterior Approach, Anterior Column, Open Approach (ICD-10-PCS; 2023-07-14)
PROC: 0RG2071 Fusion of 2 or more Cervical Vertebral Joints with Autologous Tissue Substitute, Posterior Approach, Posterior Column, Open Approach (ICD-10-PCS; 2023-07-14)
PROC: 00NW0ZZ Release Cervical Spinal Cord, Open Approach (ICD-10-PCS; 2023-07-14)
PROC: 0RG40AJ Fusion of Cervicothoracic Vertebral Joint with Interbody Fusion Device, Posterior Approach, Anterior Column, Open Approach (ICD-10-PCS; 2023-07-14)
PROC: 0RG4071 Fusion of Cervicothoracic Vertebral Joint with Autologous Tissue Substitute, Posterior Approach, Posterior Column, Open Approach (ICD-10-PCS; 2023-07-14)
PROC: 0RG60AJ Fusion of Thoracic Vertebral Joint with Interbody Fusion Device, Posterior Approach, Anterior Column, Open Approach (ICD-10-PCS; 2023-07-14)
PROC: 0RG6071 Fusion of Thoracic Vertebral Joint with Autologous Tissue Substitute, Posterior Approach, Posterior Column, Open Approach (ICD-10-PCS; principal; 2023-07-14 10:10)
DX: M47.12 Other spondylosis with myelopathy, cervical region (principal); G40.909 Epilepsy, unspecified, not intractable, without status epilepticus; F31.9 Bipolar disorder, unspecified; E03.9 Hypothyroidism, unspecified; G25.81 Restless legs syndrome; I10 Essential (primary) hypertension; R53.81 Other malaise; G43.909 Migraine, unspecified, not intractable, without status migrainosus; G47.9 Sleep disorder, unspecified; M79.7 Fibromyalgia; K58.9 Irritable bowel syndrome, unspecified; J44.89 Other specified chronic obstructive pulmonary disease; F43.10 Post-traumatic stress disorder, unspecified; E78.5 Hyperlipidemia, unspecified; K21.9 Gastro-esophageal reflux disease without esophagitis; R13.10 Dysphagia, unspecified; H91.90 Unspecified hearing loss, unspecified ear; R41.3 Other amnesia; M47.22 Other spondylosis with radiculopathy, cervical region; M48.02 Spinal stenosis, cervical region; F17.210 Nicotine dependence, cigarettes, uncomplicated; M40.203 Unspecified kyphosis, cervicothoracic region; Z63.0 Problems in relationship with spouse or partner; I25.2 Old myocardial infarction; Z79.51 Long term (current) use of inhaled steroids; Z79.890 Hormone replacement therapy; Z79.899 Other long term (current) drug therapy; Z81.8 Family history of other mental and behavioral disorders; Z86.69 Personal history of other diseases of the nervous system and sense organs
CPT/HCPCS: 72040; 72125; 80048; 85025; 94640

== ENCOUNTER 2023-07-27 01:50 | Observation (INO) | payer OTHER ==
[2023-07-27] MEDS ORDERED: SODIUM CHLORIDE 0.9% 1,000 ML IV STA (02:10)
[2023-07-27] MEDS ORDERED: LORazepam 2 MG/ML INJ IV STA (02:37)
--- NOTE | 2023-07-27 02:53 | ED ---
Chest Pain HPI <Sergo Echavarria - Last Filed: 07/27/23 06:09> - General Source: patient Mode of arrival: ambulatory Limitations: no limitations <Moshe Javed - Last Filed: 07/29/23 19:24> - General Chief Complaint: Chest Pain Stated Complaint: Chest Pain Time Seen by Provider: 07/27/23 01:58 - History of Present Illness Initial Comments: 53-year-old female presenting with chief complaint of chest pain. Pain started around 7:00 this evening. She states it is sharp in nature and worse with deep breaths. Located in the center of the chest. Patient has history surgery to the cervical spine with Dr. Mchugh on 07/14. She admits to shortness of breath. States that it feels like her heart is racing. States that she believes she had a blood clot back in her 30s. She is not currently on any blood thinners. No lower extremity swelling. (Moshe Javed) - Related Data Home Medications Medication Instructions Recorded Confirmed Asenapine Maleate [Saphris] 10 mg SUBLINGUAL BID 04/30/17 07/27/23 Sertraline [Zoloft] 200 mg PO QAM 04/30/17 07/27/23 Atorvastatin [Lipitor] 40 mg PO HS 05/24/17 07/27/23 Pantoprazole Sodium [Protonix] 40 mg PO BID 01/07/19 07/27/23 Asenapine Maleate [Saphris] 2.5 mg SUBLINGUAL DAILY@1700 PRN 04/15/21 07/27/23 Gabapentin 800 mg PO TID 04/15/21 07/27/23 SUMAtriptan succinate [Imitrex] 100 mg PO DAILY PRN 04/15/21 07/27/23 Topiramate [Trokendi Xr] 100 mg PO QAM 04/15/21 07/27/23 busPIRone HCl [Buspar] 15 mg PO TID 04/15/21 07/27/23 cloBAZam [Sympazan] 10 mg PO BID 04/15/21 07/27/23 hydrOXYzine pamoate [Vistaril] 50 mg PO TID PRN 04/16/21 07/27/23 Albuterol Sulfate [Proair Hfa] 2 puff INHALATION RT-QID PRN 05/10/21 07/27/23 Prazosin HCl [Minipress] 2 mg PO BID@0300,1700 05/10/21 07/27/23 rOPINIRole HCL [Requip] 2 mg PO BID 05/10/21 07/27/23 Fluticasone/Umeclidin/Vilanter 1 puff INHALATION RT-DAILY 12/10/22 07/27/23 [Trelegy Ellipta 100-62.5-25] Sennosides [Senokot] 17.2 mg PO HS 12/10/22 07/27/23 Brivaracetam [Briviact] 100 mg PO BID 07/10/23 07/27/23 Magnesium Oxide [Mag-Ox] 400 mg PO DAILY 07/10/23 07/27/23 Acetaminophen Tab [Tylenol] 500 mg PO Q6H 07/27/23 07/27/23 Amitriptyline HCl [Elavil] 50 mg PO HS 07/27/23 07/27/23 Budesonide [Pulmicort] 0.5 mg INHALATION RT-BID 07/27/23 07/27/23 Butalb/Acetaminophen/Caffeine 1 tab PO TID PRN 07/27/23 07/27/23 [Fioricet 50-325-40] Cetirizine HCl [Zyrtec] 10 mg PO DAILY 07/27/23 07/27/23 Cyclobenzaprine [Flexeril] 5 mg PO TID 07/27/23 07/27/23 Fluticasone Nasal [place] [Flonase 1 spray EA NOSTRIL DAILY 07/27/23 07/27/23 Nasal [place]] Furosemide [Lasix] 60 mg PO DAILY 07/27/23 07/27/23 HYDROcodone/APAP 7.5-325MG [[place] 1 tab PO Q8H PRN 07/27/23 07/27/23 7.5-325] Ipratropium-Albuterol Nebulize 3 ml INHALATION RT-QID 07/27/23 07/27/23 [Duoneb 0.5 mg-3 mg/3 ml Soln] Levothyroxine Sodium [Synthroid] 88 mcg PO DAILY 07/27/23 07/27/23 Propranolol [Inderal] 20 mg PO BID 07/27/23 07/27/23 rOPINIRole HCL [Requip] 1 mg PO BID 07/27/23 07/27/23 Previous Rx's Medication Instructions Recorded Amoxic-Pot Clav 875-125Mg 1 tab PO Q12HR 4 Days #8 tab 07/28/23 [Augmentin 875-125] Colchicine [Colcrys] 0.6 mg PO BID #60 each 07/28/23 Ibuprofen [Motrin] 400 mg PO TID 5 Days tab 07/28/23 Allergies Allergy/AdvReac Type Severity Reaction Status Date / Time bee venom protein (honey bee) Allergy Anaphylaxis Verified 07/27/23 09:13 Review of Systems ROS Other: All systems not noted in ROS Statement are negative. <Sergo Echavarria - Last Filed: 07/27/23 06:09> ROS Other: All systems not noted in ROS Statement are negative. <Moshe Javed - Last Filed: 07/29/23 19:24> ROS Statement: Those systems with pertinent positive or pertinent negative responses have been documented in the HPI. EKG Findings - EKG Comments: EKG Findings:: Sinus tachycardia ventricular rate 105. PA interval 153. QRS 82. QT 355. QTC 416. <Moshe Javed - Last Filed: 07/29/23 19:24> Past Medical History Past Medical History: Asthma, Heart Failure, COPD, Eye Disorder, Fibromyalgia, GERD/Reflux, Hyperlipidemia, Hypertension, Memory Impairment, Myocardial Infarction ([place]), Osteoarthritis (OA), Pneumonia, Seizure Disorder, Skin Disorder, Syncope, Thyroid Disorder Additional Past Medical History / Comment(s): IBS, colitis, restless legs flexed syndrome, daily migraines, Vitamin D deficiency, benign left breast mass, gastritis, short term memory loss. Vision - "sees an orange aura." BILAT CATARACTS Last seizure 04/15/21, PT STATES THAT DR. VILLALBA IS AWARE"Legs are weak and balance is off." FELL SAT. AND INJURED TAILBONE, checked bone marrow for cancer Last Myocardial Infarction Date:: unknown History of Any Multi-Drug Resistant Organisms: None Reported Past Surgical History: Back Surgery, Orthopedic Surgery Additional Past Surgical History / Comment(s): D&C, bilateral knee arthroscopy. Past Anesthesia/Blood Transfusion Reactions: No Reported Reaction Additional Past Anesthesia/Blood Transfusion Reaction / Comment(s): severe anxiety coming out of anesthesia,no hx blood transfusion Past Psychological History: Anxiety, Bipolar, Depression, PTSD Smoking Status: Current every day smoker Past Alcohol Use History: None Reported Past Drug Use History: Marijuana - Past Family History Father Family Medical History: Cancer Additional Family Medical History / Comment(s): Father of pancreatic cancer at the age of 62yrs. Mother Family Medical History: Congestive Heart Failure (CHF) Additional Family Medical History / Comment(s): Mother of CHF at the age of 60yrs. Brother(s) Additional Family Medical History / Comment(s): Patient had 1 brother that at 5 months of age. Sister(s) Additional Family Medical History / Comment(s): Patient has one sister with history of depression and bipolar. Patient has 2 half-sisters and one at a ge 28 from overdose. Patient does not have any children. <Moshe Javed - Last Filed: 07/29/23 19:24> General Exam Limitations: no limitations General appearance: alert, in no apparent distress Head exam: Present: atraumatic, normocephalic, normal inspection Eye exam: Present: normal appearance, EOMI Respiratory exam: Present: normal lung sounds bilaterally. Absent: respiratory distress, wheezes, rales, rhonchi, stridor Cardiovascular Exam: Present: regular rate, normal rhythm, normal heart sounds. Absent: systolic murmur, diastolic murmur, rubs, gallop, clicks Extremities exam: Absent: pedal edema Neurological exam: Present: alert, oriented X3 Psychiatric exam: Present: normal affect, normal mood Skin exam: Present: warm, dry, intact, normal color. Absent: rash <Moshe Javed - Last Filed: 07/29/23 19:24> Course Vital Signs 07/27/23 07/27/23 07/27/23 01:53 04:36 07:15 Temperature 97.5 F L Pulse Rate 113 H 103 H 108 H Respiratory 20 18 20 Rate Blood Pressure 126/84 127/95 130/78 O2 Sat by Pulse 98 97 97 Oximetry 07/27/23 07/27/23 07/27/23 09:50 11:24 11:53 Temperature Pulse Rate 90 96 98 Respiratory 18 18 Rate Blood Pressure 111/88 119/82 O2 Sat by Pulse 95 95 Oximetry 07/27/23 07/27/23 07/27/23 12:05 14:13 15:29 Temperature Pulse Rate 102 H 104 H 108 H Respiratory 18 Rate Blood Pressure 109/84 O2 Sat by Pulse 96 Oximetry 07/27/23 07/27/23 15:39 17:04 Temperature Pulse Rate 107 H 104 H Respiratory 18 Rate Blood Pressure 110/73 O2 Sat by Pulse 96 Oximetry Chest Pain MDM <Moshe Javed - Last Filed: 07/29/23 19:24> - MDM 53-year-old female presenting with chief complaint of sharp pleuritic chest pain that started this evening. Recent neck surgery with Dr. Mchugh on 07/14. History and physical exam were conducted. Lab work and chest x-ray are pending at this time. Patient is signed out to my attending Dr. Echavarria for further management and disposition. (Moshe Javed) Disposition Is patient prescribed a controlled substance at d/c from ED?: No Time of Disposition: 06:10 <Sergo Echavarria - Last Filed: 07/27/23 06:09> <Moshe Javed - Last Filed: 07/29/23 19:24> Clinical Impression: Chest pain, Pericardial effusion Disposition: ADMITTED IP TO THIS HOSP Condition: Stable
[2023-07-27 03:07] LABS: Basophils % (A) 0 %; Eosinophils # (A) 0.5 k/uL (0-0.7); Eosinophils % (A) 4 %; HGB 13.4 gm/dL (11.4-16.0); Lymphocytes # (A) 2.7 k/uL (1.0-4.8); Lymphocytes % (A) 21 %; MCHC 32.6 g/dL (31.0-37.0); MCV 104.4 fL (80.0-100.0); Macrocytosis Slight; Mean Platelet Volume 7.6; Monocytes # (A) 0.6 k/uL (0-1.0); Monocytes % (A) 4 %; Neutrophils % (A) 69 %; RBC 3.93 m/uL (3.80-5.40)
[2023-07-27 03:13] LABS: Platelet Count 706 k/uL (150-450)
[2023-07-27 04:07] LABS: ALT 11 U/L (4-34); AST 20 U/L (14-36); African American GFR (CKD) >90 (>60 ml/min/1.73 sqM); Albumin 3.4 g/dL (3.5-5.0); Alkaline Phosphatase 123 U/L (38-126); Anion Gap 9 mmol/L; Blood Urea Nitrogen 14 mg/dL (7-17); Calcium 8.9 mg/dL (8.4-10.2); Carbon Dioxide 23 mmol/L (22-30); Chloride 107 mmol/L (98-107); Glucose 107 mg/dL (74-99); Magnesium 1.7 mg/dL (1.6-2.3); Non-African American GFR(CKD) 80 (>60 ml/min/1.73 sqM); Potassium 3.2 mmol/L (3.5-5.1); Sodium 139 mmol/L (137-145); Total Bilirubin 0.4 mg/dL (0.2-1.3); Total Protein 6.4 g/dL (6.3-8.2)
[2023-07-27] MEDS ORDERED: POTASSIUM CHLORIDE ER 20 MEQ TAB.ER PO STA (04:20)
[2023-07-27 04:59] LABS: INR 0.9 (<1.2); Prothrombin Time 10.2 sec (10.0-12.5)
--- NOTE | 2023-07-27 05:07 | XR ---
EXAM: XR Chest, 2 Views CLINICAL HISTORY: Chest Pain TECHNIQUE: Frontal and lateral views of the chest. COMPARISON: September 24, 2022 FINDINGS: Lungs: Asymmetric density in the right lung base consistent with infiltration or atelectasis. The left chest is clear. Pleural space: Unremarkable. No pneumothorax. No pleural fluid. Heart: Unremarkable. No cardiomegaly. Mediastinum: Unremarkable. Normal mediastinal contour. Bones/joints: Recent cervical fusion surgery. Interval thoracolumbar fusion surgery. No acute bony abnormality. Old healed left rib fractures. IMPRESSION: Mild infiltration or atelectasis in the right lung base. Otherwise no acute findings in the chest.
--- NOTE | 2023-07-27 06:01 | CT ---
EXAM: CT Angiography Chest With Intravenous Contrast CLINICAL HISTORY: CP-pos dimer TECHNIQUE: Axial computed tomographic angiography images of the chest with intravenous contrast. CTDI is 11.7 mGy and DLP is 294.2 mGy-cm. This CT exam was performed using one or more of the following dose reduction techniques: automated exposure control, adjustment of the mA and/or kV according to patient size, and/or use of iterative reconstruction technique. MIP reconstructed images were created and reviewed. COMPARISON: No relevant prior studies available. FINDINGS: Pulmonary arteries: Unremarkable. No pulmonary embolism. Aorta: No acute findings. No thoracic aortic aneurysm. Lungs: Mild emphysematous changes. No mass. No consolidation. Pleural space: Unremarkable. No significant effusion. No pneumothorax. Heart: Moderate to large pericardial effusion. No evidence of RV dysfunction. Bones/joints: No acute fracture. No dislocation. Soft tissues: Unremarkable. Lymph nodes: Unremarkable. No enlarged lymph nodes. IMPRESSION: No evidence of pulmonary emboli. Moderately large pericardial effusion.
[2023-07-27] MEDS ORDERED: NALOXONE 0.4 MG/ML 1 ML VIAL IV PRN ×2 (06:08→08:56)
[2023-07-27] MEDS ORDERED: ACETAMINOPHEN TAB 325 MG TAB PO PRN (08:56)
[2023-07-27] MEDS ORDERED: ONDANSETRON 4 MG/2 ML VIAL IVP PRN (08:56)
[2023-07-27] MEDS ORDERED: ALBUTEROL NEBULIZED 2.5 MG/3 ML INHALATION PRN (09:04)
[2023-07-27] MEDS ORDERED: PNEUMONIA PROTOCOL UTILIZED 1 EACH MISC PO PRN (09:04)
[2023-07-27] MEDS: SODIUM CHLORIDE 0.9% 1,000 ML IV SCH ×2 (09:51→19:16)
[2023-07-27] MEDS: CEFEPIME 2 GM in SODIUM CHLORIDE 0.9% 100 ML IVPB SCH ×3 (09:52→23:56)
[2023-07-27] MEDS: traMADol 50 MG TAB PO PRN (09:52)
[2023-07-27] MEDS ORDERED: BUTALB/APAP/CAFF 50-325-40MG TAB PO PRN (11:20)
[2023-07-27] MEDS ORDERED: ALBUTEROL HFA INHALER INHALATION PRN (11:20)
[2023-07-27] MEDS ORDERED: ASENAPINE 5 MG TAB SUBLINGUAL PRN (11:20)
[2023-07-27] MEDS ORDERED: hydrOXYzine pamoate 25 MG CAP PO PRN (11:20)
[2023-07-27] MEDS ORDERED: SUMAtriptan succinate 50 MG TAB PO PRN (11:20)
[2023-07-27] MEDS: IPRATROPIUM-ALBUTEROL 3 ML NEB INHALATION SCH ×3 (12:05→20:04)
[2023-07-27] MEDS: busPIRone HCl 10 MG TAB PO SCH ×3 (12:17→20:44)
[2023-07-27] MEDS: LEVOTHYROXINE 88 MCG TAB PO SCH (12:18)
[2023-07-27] MEDS: FUROSEMIDE 20 MG TAB PO SCH (12:18)
[2023-07-27] MEDS: CYCLOBENZAPRINE 5 MG TAB PO SCH ×3 (12:19→20:46)
[2023-07-27] MEDS: SERTRALINE 100 MG TAB PO SCH (12:19)
[2023-07-27] MEDS: GABAPENTIN 400 MG CAP PO SCH ×3 (12:19→20:44)
[2023-07-27] MEDS: LORATADINE 10 MG TAB PO SCH (12:20)
[2023-07-27] MEDS: ASENAPINE 5 MG TAB SUBLINGUAL SCH ×2 (12:20→20:43)
--- NOTE | 2023-07-27 12:21 | P.HPIM ---
History of Present Illness H&P Date: 07/27/23 Chief Complaint: Chest pain * 53-year-old patient with past medical history significant for seizure disorder, asthma, COPD, hypothyroid, IBS, restless leg syndrome, anxiety, bi polar, PTSD, hypertension, chronic pericardial effusion, had a recent cervical/thoracic decompression and fusion for cervical radiculopathy. Patient presents to the hospital with complaints of chest pain. Patient states chest pain started around 7 PM on 07/26, patient described pain sharp in nature and worsened with breaths. Pain pleuritic in nature and located midsternal. Patient had surgery done with Dr. Pat Alba on 07/14/23. She was discharged home on 07/17/23. * Workup initiated in ER included basic metabolic panel which showed WBC count of 13, platelet count of 706, elevated neutrophil shift. D-dimer 1.64. Serum chemistry sodium 139 potassium 3.2, and Axid 23 BUN 14 creatinine 0.8 initial troponin obtained negative * CT chest angiography, negative for pulmonary embolism does show moderate pericardial effusion. * EKG obtained shows sinus a Cardia nonspecific ST segment changes * Chest x-ray shows mild infiltration in right lung base * Patient admitted to medical for with consultations obtained from cardiology, and started treatment for pneumonia REVIEW OF SYSTEMS: Pleuritic chest pain, CONSTITUTIONAL: No fever, no malaise, no fatigue. HEENT: No recent visual problems or hearing problems. Denied any sore throat. CARDIOVASCULAR: No chest pain, orthopnea, PND, no palpitations, no syncope. PULMONARY: No shortness of breath, no cough, no hemoptysis. GASTROINTESTINAL: No diarrhea, no nausea, no vomiting, no abdominal pain. NEUROLOGICAL: No headaches, no weakness, no numbness. HEMATOLOGICAL: Denies any bleeding or petechiae. GENITOURINARY: Denies any burning micturition, frequency, or urgency. MUSCULOSKELETAL/RHEUMATOLOGICAL: Denies any joint pain, swelling, or any muscle pain. ENDOCRINE: Denies any polyuria or polydipsia. PHYSICAL EXAMINATION: GENERAL: The patient is alert and oriented x3, not in any acute distress. Well developed, well nourished. Cervical collar in place HEENT: Pupils are round and equally reacting to light. EOMI. CARDIOVASCULAR: S1 and S2 present. No murmurs, rubs, or gallops. PULMONARY: Chest is clear to auscultation, no wheezing or crackles. ABDOMEN: Soft, nontender, nondistended, normoactive bowel sounds. No palpable organomegaly. MUSCULOSKELETAL: No joint swelling or deformity. EXTREMITIES: No cyanosis, clubbing, or pedal edema. NEUROLOGICAL: Gross neurological examination did not reveal any focal deficits. SKIN: No rashes. Past Medical History Past Medical History: Asthma, Heart Failure, COPD, Eye Disorder, Fibromyalgia, GERD/Reflux, Hyperlipidemia, Hypertension, Memory Impairment, Myocardial Infarction ([place]), Osteoarthritis ([place]), Pneumonia, Seizure Disorder, Skin Disorder, Syncope, Thyroid Disorder Additional Past Medical History / Comment(s): IBS, colitis, restless legs flexed syndrome, daily migraines, Vitamin D deficiency, benign left breast mass, gastritis, short term memory loss. Vision - "sees an orange aura." DAVI GIBSON Last seizure 04/15/21, PT STATES THAT DR. VILLALBA IS AWARE"Legs are weak and balance is off." FELL SAT. AND INJURED TAILBONE, checked bone marrow for cancer Last Myocardial Infarction Date:: unknown History of Any Multi-Drug Resistant Organisms: None Reported Past Surgical History: Back Surgery, Orthopedic Surgery Additional Past Surgical History / Comment(s): D&C, bilateral knee arthroscopy. Past Anesthesia/Blood Transfusion Reactions: No Reported Reaction Additional Past Anesthesia/Blood Transfusion Reaction / Comment(s): severe anxiety coming out of anesthesia,no hx blood transfusion Past Psychological History: Anxiety, Bipolar, Depression, PTSD Smoking Status: Current every day smoker Past Alcohol Use History: None Reported Past Drug Use History: Marijuana - Past Family History Father Family Medical History: Cancer Additional Family Medical History / Comment(s): Father of pancreatic cancer at the age of 62yrs. Mother Family Medical History: Congestive Heart Failure (CHF) Additional Family Medical History / Comment(s): Mother of CHF at the age of 60yrs. Brother(s) Additional Family Medical History / Comment(s): Patient had 1 brother that at 5 months of age. Sister(s) Additional Family Medical History / Comment(s): Patient has one sister with history of depression and bipolar. Patient has 2 half-sisters and one at age 26 from overdose. Patient does not have any children. Medications and Allergies Home Medications Medication Instructions Recorded Confirmed Type Asenapine Maleate [Saphris] 10 mg SUBLINGUAL BID 04/30/17 07/27/23 History Sertraline [Zoloft] 200 mg PO QAM 04/30/17 07/27/23 History Atorvastatin [Lipitor] 40 mg PO HS 05/24/17 07/27/23 History Pantoprazole Sodium [Protonix] 40 mg PO BID 01/07/19 07/27/23 History Asenapine Maleate [Saphris] 2.5 mg SUBLINGUAL DAILY@1700 PRN 04/15/21 07/27/23 History Gabapentin 800 mg PO TID 04/15/21 07/27/23 History SUMAtriptan succinate [Imitrex] 100 mg PO DAILY PRN 04/15/21 07/27/23 History Topiramate [Trokendi Xr] 100 mg PO QAM 04/15/21 07/27/23 History busPIRone HCl [Buspar] 15 mg PO TID 04/15/21 07/27/23 History cloBAZam [Sympazan] 10 mg PO BID 04/15/21 07/27/23 History hydrOXYzine pamoate [Vistaril] 50 mg PO TID PRN 04/16/21 07/27/23 History Albuterol Sulfate [Proair Hfa] 2 puff INHALATION RT-QID PRN 05/10/21 07/27/23 History Prazosin HCl [Minipress] 2 mg PO BID@0300,1700 05/10/21 07/27/23 History rOPINIRole HCL [Requip] 2 mg PO BID 05/10/21 07/27/23 History Fluticasone/Umeclidin/Vilanter 1 puff INHALATION RT-DAILY 12/10/22 07/27/23 History [Trelegy Ellipta 100-62.5-25] Sennosides [Senokot] 17.2 mg PO HS 12/10/22 07/27/23 History Brivaracetam [Briviact] 100 mg PO BID 07/10/23 07/27/23 History Magnesium Oxide [Mag-Ox] 400 mg PO DAILY 07/10/23 07/27/23 History Acetaminophen Tab [Tylenol Tab] 500 mg PO Q6H 07/27/23 07/27/23 History Amitriptyline HCl [Elavil] 50 mg PO HS 07/27/23 07/27/23 History Budesonide [Pulmicort] 0.5 mg INHALATION RT-BID 07/27/23 07/27/23 History Butalb/Acetaminophen/Caffeine 1 tab PO TID PRN 07/27/23 07/27/23 History [Fioricet 50-325-40] Cetirizine HCl [Zyrtec] 10 mg PO DAILY 07/27/23 07/27/23 History Cyclobenzaprine [Flexeril] 5 mg PO TID 07/27/23 07/27/23 History Fluticasone Nasal [place] [Flonase 1 spray EA NOSTRIL DAILY 07/27/23 07/27/23 History Nasal [place]] Furosemide [Lasix] 60 mg PO DAILY 07/27/23 07/27/23 History HYDROcodone/APAP 7.5-325MG [[place] 1 tab PO Q8H PRN 07/27/23 07/27/23 History 7.5-325] Ipratropium-Albuterol Nebulize 3 ml INHALATION RT-QID 07/27/23 07/27/23 History [Duoneb 0.5 mg-3 mg/3 ml Soln] Levothyroxine Sodium [Synthroid] 88 mcg PO DAILY 07/27/23 07/27/23 History Propranolol [Inderal] 20 mg PO BID 07/27/23 07/27/23 History rOPINIRole HCL [Requip] 1 mg PO BID 07/27/23 07/27/23 History Allergies Allergy/AdvReac Type Severity Reaction Status Date / Time bee venom protein (honey bee) Allergy Anaphylaxis Verified 07/27/23 09:13 Physical Exam Vitals: Vital Signs Temp Pulse Resp BP Pulse Ox 07/27/23 07:15 108 H 20 130/78 97 07/27/23 04:36 103 H 18 127/95 97 07/27/23 01:53 97.5 F L 113 H 20 126/84 98 Intake and Output 07/26/23 07/27/23 07/27/23 22:59 06:59 14:59 Other: Weight 51.71 kg Results CBC & Chem 7: 07/27/23 02:30 07/27/23 03:16 Labs: Abnormal Lab Results - Last 24 Hours (Table) 07/27/23 07/27/2307/27/23 Range/Units 02:30 03:16 03:16 WBC 13.0 H (3.8-10.6) k/uL MCV 104.4 H (80.0-100.0) fL Plt Count 706 H D (150-450) k/uL Neutrophils # 9.0 H (1.3-7.7) k/uL D-Dimer 1.64 H (<0.60) mg/L FEU Potassium 3.2 L (3.5-5.1) mmol/L Glucose 107 H (74-99) mg/dL Albumin 3.4 L (3.5-5.0) g/dL Thrombosis Risk Factor Assmnt - DVT/VTE Prophylaxis DVT/VTE Prophylaxis: Pharmacologic Prophylaxis ordered, Mechanical Prophylaxis ordered Assessment and Plan Assessment: Assessment and plan Pericardial effusion with chest pain Right lower lobe pneumonia Status post c2-T2 spine surgery 07/14/23 History of seizure disorder Hypothyroid Generalized anxiety/PTSD Dyslipidemia * In regards to chest pain, serial troponins ordered, echocardiogram ordered, cardiology consulted. CT chest negative for pulmonary embolism * In regards to right lower lobe pneumonia, noted to have elevated WBC count with elevated neutrophil shift continue patient on IV cefepime follow up on urine Legionella * In regards to cervical spine surgery, CT negative for pulmonary embolism * In regards to hypothyroid, continue Synthyroid * In regards to dyslipidemia continue Lipitor * In regards to history of seizure disorder home medications reviewed and reconciled, maintain seizure precautions * In regards to history of anxiety/psychiatric illness continue home regimen patient has a legal guardian as well * CODE STATUS is full code Time with Patient: Greater than 30
[2023-07-27] MEDS: NON FORMULARY DRUG (Brivaracetam [Briviact] 100 MG Tablet) PO SCH ×2 (12:25→20:11)
[2023-07-27] MEDS: CLOBAZAM 10 MG PO SCH ×2 (12:26→20:11)
[2023-07-27] MEDS: HYDROcodone/APAP 7.5-325MG 1 EACH TAB PO PRN ×2 (12:33→20:45)
[2023-07-27] MEDS: PRAZOSIN 1 MG CAP PO SCH (16:57)
[2023-07-27] MEDS: IBUPROFEN 400 MG TAB PO SCH ×2 (16:57→20:46)
[2023-07-27] MEDS: PANTOPRAZOLE 40 MG TABLET PO SCH (16:57)
--- NOTE | 2023-07-27 17:16 | P.CRDCN ---
History of Present Illness Consult date: 07/27/23 Consult reason: chest pain History of present illness: History of present illness: This is a 53-year-old female patient of Dr. Lexi Shahid with past medical history of hypertension, dyslipidemia, peripheral vascular disease, family history of premature coronary artery disease, tobacco use and dependence. We have been asked to evaluate the patient for chest pain. Patient states that she had recent surgery on her neck [address] Baez son. She had previously been seen in the office for preoperative clearance and underwent dobutamine stress echocardiogram that obtain a 76% of predicted maximal heart rate and did not have any chest pain or diagnostic ST segment depression. No dobutamine induced wall motion abnormalities. Patient was cleared for surgery. She states the chest pain was in her midsternal area and was a sharp and stabbing with deep breathing. It would also to her shoulders and her back. She complains of a cough she states it started right after she had an argument with her boyfriend and was moving furniture. EKG sinus tachycardia nonspecific ST-T wave changes. Chest x-ray: Mild infiltration or atelectasis in the right lung base. Otherwise no acute findings in the chest. CTA of the chest showed no evidence of pulmonary emboli. Moderately large pericardial effusion. WBC 13, hemoglobin 13.4, platelet count 706. D-dimer 1.64. Potassium 3.2 and has been replaced. Otherwise electrolytes are normal. Creatinine 0.85. Troponin negative 3. Glucose 107. Liver function tests are normal. Home cardiac medications: Atorvastatin 40 mg at bedtime, Lasix 60 mg daily, levothyroxine 88 g daily, Minipress 2 mg twice daily, Inderal 20 mg twice daily Review Of Systems: At the time of my evaluation: Constitutional: No fever, no chills. No weakness, fatigue or lethargy. EENT: No headache. No dizziness. Lungs: No shortness of breath, cough, no sputum production. No wheezing. Cardiovascular: No chest pain, no lower extremity edema. No palpitations. No paroxysmal nocturnal dyspnea. No orthopnea. No lightheadedness or dizziness. No syncopal episodes. Abdominal: No abdominal pain. No nausea, vomiting. No diarrhea. No constipation. No bloody or tarry stools. Genitourinary: No dysuria.. No urinary retention. Musculoskeletal: No myalgias. No muscle weakness, no frequent falls. No back pain. No neck pain. Integumentary: No wounds. No rash. No unusual bruising. Neurologic: No aphasia. No facial droop. No change in mentation. No head injury. No headache. Physical examination: Gen: This is a [ ] VS: reviewed HEENT: Head is atraumatic, normocephalic. Pupils equal, round. Sclerae is anicteric. NECK: Supple. No JVD. . LUNGS: Clear to auscultation. No wheezes or rhonchi. No intercostal retractions. HEART: Regular rate and rhythm. No murmur. ABDOMEN: Soft No tenderness. EXTREMITIES: No pedal edema. No calf tenderness. NEUROLOGICAL: Patient is awake, alert and oriented x3. Assessment: Pericardial effusion Chest pain, acute coronary syndrome ruled out Hypertension Dyslipidemia Plan: Continue patient's home cardiac medications Start patient on colchicine 0.6 mg twice daily for 1 week Start ibuprofen 400 mg 3 times daily and continue Protonix Obtain 2-D echocardiogram and Doppler study to assess cardiac structure and function Further recommendations to follow based upon clinical course Thank you kindly for this consultation. Nurse practitioner note has been reviewed, I agree with documented findings and plan of care. Patient was seen and examined. Past Medical History Past Medical History: Asthma, Heart Failure, COPD, Eye Disorder, Fibromyalgia, GERD/Reflux, Hyperlipidemia, Hypertension, Memory Impairment, Myocardial Infarction ([place]), Osteoarthritis (OA), Pneumonia, Seizure Disorder, Skin Disorder, Syncope, Thyroid Disorder Additional Past Medical History / Comment(s): IBS, colitis, restless legs flexed syndrome, daily migraines, Vitamin D deficiency, benign left breast mass, belén ritis, short term memory loss. Vision - "sees an orange aura." BILAT CATARACTS Last seizure 04/15/21, PT STATES THAT DR. VILLALBA IS AWARE"Legs are weak and balance is off." FELL SAT. AND INJURED TAILBONE, checked bone marrow for cancer Last Myocardial Infarction Date:: unknown History of Any Multi-Drug Resistant Organisms: None Reported Past Surgical History: Back Surgery, Orthopedic Surgery Additional Past Surgical History / Comment(s): D&C, bilateral knee arthroscopy. Past Anesthesia/Blood Transfusion Reactions: No Reported Reaction Additional Past Anesthesia/Blood Transfusion Reaction / Comment(s): severe anxiety coming out of anesthesia,no hx blood transfusion Past Psychological History: Anxiety, Bipolar, Depression, PTSD Smoking Status: Current every day smoker Past Alcohol Use History: None Reported Past Drug Use History: Marijuana - Past Family History Father Family Medical History: Cancer Additional Family Medical History / Comment(s): Father of pancreatic cancer at the age of 62yrs. Mother Family Medical History: Congestive Heart Failure (CHF) Additional Family Medical History / Comment(s): Mother of CHF at the age of 60yrs. Brother(s) Additional Family Medical History / Comment(s): Patient had 1 brother that at 5 months of age. Sister(s) Additional Family Medical History / Comment(s): Patient has one sister with history of depression and bipolar. Patient has 2 half-sisters and one at age 26 from overdose. Patient does not have any children. Medications and Allergies Home Medications Medication Instructions Recorded Confirmed Type Asenapine Maleate [Saphris] 10 mg SUBLINGUAL BID 04/30/17 07/27/23 History Sertraline [Zoloft] 200 mg PO QAM 04/30/17 07/27/23 History Atorvastatin [Lipitor] 40 mg PO HS 05/24/17 07/27/23 History Pantoprazole Sodium [Protonix] 40 mg PO BID 01/07/19 07/27/23 History Asenapine Maleate [Saphris] 2.5 mg SUBLINGUAL DAILY@1700 PRN 04/15/21 07/27/23 History Gabapentin 800 mg PO TID 04/15/21 07/27/23 History SUMAtriptan succinate [Imitrex] 100 mg PO DAILY PRN 04/15/21 07/27/23 History Topiramate [Trokendi Xr] 100 mg PO QAM 04/15/21 07/27/23 History busPIRone HCl [Buspar] 15 mg PO TID 04/15/21 07/27/23 History cloBAZam [Sympazan] 10 mg PO BID 04/15/21 07/27/23 History hydrOXYzine pamoate [Vistaril] 50 mg PO TID PRN 04/16/21 07/27/23 History Albuterol Sulfate [Proair Hfa] 2 puff INHALATION RT-QID PRN 05/10/21 07/27/23 History Prazosin HCl [Minipress] 2 mg PO BID@0300,1700 05/10/21 07/27/23 History rOPINIRole HCL [Requip] 2 mg PO BID 05/10/21 07/27/23 History Fluticasone/Umeclidin/Vilanter 1 puff INHALATION RT-DAILY 12/10/22 07/27/23 History [Trelegy Ellipta 100-62.5-25] Sennosides [Senokot] 17.2 mg PO HS 12/10/22 07/27/23 History Brivaracetam [Briviact] 100 mg PO BID 07/10/23 07/27/23 History Magnesium Oxide [Mag-Ox] 400 mg PO DAILY 07/10/23 07/27/23 History Acetaminophen Tab [Tylenol Tab] 500 mg PO Q6H 07/27/23 07/27/23 History Amitriptyline HCl [Elavil] 50 mg PO HS 07/27/23 07/27/23 History Budesonide [Pulmicort] 0.5 mg INHALATION RT-BID 07/27/23 07/27/23 History Butalb/Acetaminophen/Caffeine 1 tab PO TID PRN 07/27/23 07/27/23 History [Fioricet 50-325-40] Cetirizine HCl [Zyrtec] 10 mg PO DAILY 07/27/23 07/27/23 History Cyclobenzaprine [Flexeril] 5 mg PO TID 07/27/23 07/27/23 History Fluticasone Nasal [place] [Flonase 1 spray EA NOSTRIL DAILY 07/27/23 07/27/23 History Nasal [place]] Furosemide [Lasix] 60 mg PO DAILY 07/27/23 07/27/23 History HYDROcodone/APAP 7.5-325MG [[place] 1 tab PO Q8H PRN 07/27/23 07/27/23 History 7.5-325] Ipratropium-Albuterol Nebulize 3 ml INHALATION RT-QID 07/27/23 07/27/23 History [Duoneb 0.5 mg-3 mg/3 ml Soln] Levothyroxine Sodium [Synthroid] 88 mcg PO DAILY 07/27/23 07/27/23 History Propranolol [Inderal] 20 mg PO BID 07/27/23 07/27/23 History rOPINIRole HCL [Requip] 1 mg PO BID 07/27/23 07/27/23 History Allergies Allergy/AdvReac Type Severity Reaction Status Date / Time bee venom protein (honey bee) Allergy Anaphylaxis Verified 07/27/23 09:13 Physical Exam Vitals: Vital Signs Temp Pulse Resp BP Pulse Ox 07/27/23 17:04 104 H 18 110/73 96 07/27/23 15:39 107 H 07/27/23 15:29 108 H 07/27/23 14:13 104 H 18 109/84 96 07/27/23 12:05 102 H 07/27/23 11:53 98 07/27/23 11:24 96 18 119/82 95 07/27/23 09:50 90 18 111/88 95 07/27/23 07:15 108 H 20 130/78 97 07/27/23 04:36 103 H 18 127/95 97 07/27/23 01:53 97.5 F L 113 H 20 126/84 98 Intake and Output 07/27/23 07/27/23 07/27/23 06:59 14:59 22:59 Other: Weight 51.71 kg Results 07/27/23 02:30 07/27/23 03:16 Cardiac Enzymes 07/27/23 07/27/23 07/27/23 Range/Units 03:16 03:16 09:53 AST 20 (14-36) U/L Troponin I <0.012 <0.012 (0.000-0.034) ng/mL 07/27/23 Range/Units 12:35 AST (14-36) U/L Troponin I <0.012 (0.000-0.034) ng/mL Coagulation 07/27/23 Range/Units 03:16 PT 10.2 (10.0-12.5) sec APTT 25.0 (22.0-30.0) sec CBC 07/27/23 Range/Units 02:30 WBC 13.0 H (3.8-10.6) k/uL RBC 3.93 (3.80-5.40) m/uL Hgb 13.4 (11.4-16.0) gm/dL Hct 41.0 (34.0-46.0) % Plt Count 706 H D (150-450) k/uL Comprehensive Metabolic Panel 07/27/23 Range/Units 03:16 Sodium 139 (137-145) mmol/L Potassium 3.2 L (3.5-5.1) mmol/L Chloride 107 (98-107) mmol/L Carbon Dioxide 23 (22-30) mmol/L BUN 14 (7-17) mg/dL Creatinine 0.85 (0.52-1.04) mg/dL Glucose 107 H (74-99) mg/dL Calcium 8.9 (8.4-10.2) mg/dL AST 20 (14-36) U/L ALT 11 (4-34) U/L Alkaline Phosphatase 123 (38-126) U/L Total Protein 6.4 (6.3-8.2) g/dL Albumin 3.4 L (3.5-5.0) g/dL Current Medications Generic Name Dose Route Start Last Admin Trade Name Freq PRN Reason Stop Dose Admin Acetaminophen 650 mg 07/27/23 08:56 Acetaminophen Tab 325 Mg Tab PO Q6HR PRN Mild Pain or Fever > 100.5 Acetaminophen/Butalbital/Caffeine 1 each 07/27/23 11:20 Butalb/Apap/Caff 50-325-40mg Tab PO TID PRN Headache Hydrocodone Bitart/Acetaminophen 1 each 07/27/23 11:20 07/27/23 12:33 Hydrocodone/Apap 7.5-325mg 1 Each Tab PO 1 each Q8H PRN Administration Pain Albuterol Sulfate 2.5 mg 07/27/23 09:04 Albuterol Nebulized 2.5 Mg/3 Ml INHALATION RT-Q2H PRN Shortness Of Breath Or Wheezing Albuterol/Ipratropium 3 ml 07/27/23 12:00 07/27/23 15:29 Ipratropium-Albuterol 3 Ml Neb INHALATION 3 ml RT-QID VIVI Administration Amitriptyline HCl 50 mg 07/27/23 21:00 Amitriptyline Hcl 50 Mg Tab PO HS VIVI Asenapine 2.5 mg 07/27/23 11:20 Asenapine 5 Mg Tab SUBLINGUAL DAILY@1700 PRN Agitation Asenapine 10 mg 07/27/23 11:30 07/27/23 12:20 Asenapine 5 Mg Tab SUBLINGUAL 10 mg BID VIVI Administration Atorvastatin Calcium 40 mg 07/27/23 21:00 Atorvastatin 40 Mg Tab PO HS VIVI Budesonide 0.5 mg 07/27/23 20:00 Budesonide 0.5 Mg/2 Ml Nebu INHALATION RT-BID VIVI Buspirone HCl 15 mg 07/27/23 11:30 07/27/23 16:58 Buspirone Hcl 10 Mg Tab PO 15 mg TID VIVI Administration Colchicine 0.6 mg 07/27/23 21:00 Colchicine 0.6 Mg Each PO BID VIVI Cyclobenzaprine HCl 5 mg 07/27/23 11:30 07/27/23 16:57 Cyclobenzaprine 5 Mg Tab PO 5 mg TID VIVI Administration Enoxaparin Sodium 40 mg 07/28/23 09:00 Enoxaparin 40 Mg/0.4 Ml Syringe SQ DAILY VIVI Furosemide 60 mg 07/27/23 11:30 07/27/23 12:18 Furosemide 20 Mg Tab PO 60 mg DAILY VIVI Administration Gabapentin 800 mg 07/27/23 11:30 07/27/23 16:57 Gabapentin 400 Mg Cap PO 800 mg TID VIVI Administration Hydroxyzine Pamoate 50 mg 07/27/23 11:20 Hydroxyzine Pamoate 25 Mg Cap PO TID PRN Anxiety Sodium Chloride 1,000 mls @ 100 mls/hr 07/27/23 09:00 07/27/23 09:51 Saline 0.9% IV 100 mls/hr .Q10H VIVI Administration Cefepime HCl 2 gm/ Sodium 100 mls @ 25 mls/hr 07/27/23 09:15 07/27/23 16:56 Chloride IVPB 08/03/23 09:16 25 mls/hr Q8HR VIVI Administration Protocol Ibuprofen 400 mg 07/27/23 16:00 07/27/23 16:57 Ibuprofen 400 Mg Tab PO 400 mg TID VIVI Administration Levothyroxine Sodium 88 mcg 07/27/23 11:30 07/27/23 12:18 Levothyroxine 88 Mcg Tab PO 88 mcg DAILY@0630 VIVI Administration Loratadine 10 mg 07/27/23 11:30 07/27/23 12:20 Loratadine 10 Mg Tab PO 10 mg DAILY VIVI Administration Magnesium Oxide 400 mg 07/28/23 09:00 Magnesium Oxide 400 Mg Tab PO DAILY [facility] Miscellaneous Information 1 each 07/27/23 09:04 Pneumonia Protocol Utilized 1 Each Misc PO ONCE PRN Per Protocol Naloxone HCl 0.2 mg 07/27/23 06:08 Naloxone 0.4 Mg/Ml 1 Ml Vial IV Q2M PRN Opioid Reversal Non-Formulary Medication 100 mg 07/27/23 11:30 07/27/23 12:25 Brivaracetam [Briviact] PO Not Given BID VIVI Non-Formulary Medication 10 mg 07/27/23 11:30 07/27/23 12:26 Clobazam [Sympazan] PO Not Given BID VIVI Ondansetron HCl 4 mg 07/27/23 08:56 Ondansetron 4 Mg/2 Ml Vial IVP Q8HR PRN Nausea And Vomiting Pantoprazole Sodium 40 mg 07/27/23 17:30 07/27/23 16:57 Pantoprazole 40 Mg Tablet PO 40 mg BID-W/MEALS VIVI Administration Prazosin HCl 2 mg 07/27/23 17:00 07/27/23 16:57 Prazosin 1 Mg Cap PO 2 mg BID@0300,1700 VIVI Administration Propranolol HCl 20 mg 07/27/23 21:00 Propranolol 20 Mg Tab PO BID VIVI Ropinirole HCl 1 mg 07/27/23 11:30 07/27/23 12:17 Ropinirole Hcl 1 Mg Tab PO 1 mg BID VIVI Administration Ropinirole HCl 2 mg 07/27/23 11:30 07/27/23 12:17 Ropinirole Hcl 1 Mg Tab PO 2 mg BID VIVI Administration Sertraline HCl 200 mg 07/27/23 11:30 07/27/23 12:19 Sertraline 100 Mg Tab PO 200 mg QAM VIVI Administration Sumatriptan Succinate 100 mg 07/27/23 11:20 Sumatriptan Succinate 50 Mg Tab PO DAILY PRN Migraine Headache Topiramate 50 mg 07/27/23 21:00 Topiramate 25 Mg Tab PO BID VIVI Tramadol HCl 50 mg 07/27/23 08:56 07/27/23 09:52 Tramadol 50 Mg Tab PO 50 mg Q6H PRN Administration Moderate Pain (Scale 4 to 6) Intake and Output 07/27/23 07/27/23 07/27/23 06:59 14:59 22:59 Other: Weight 51.71 kg 07/27/23 02:30 07/27/23 03:16
--- NOTE | 2023-07-27 18:03 | CA ---
Transthoracic Echo Report Name: Rosario Weinstein Age: 53 Gender: F : 1970 Exam Date: 07/27/2023 08:27 Exam Location: [facility] Ht (in): 59 Wt (lb): 114 Ordering Physician: Sergo Echavarria MD Attending/Referring Phys: [id number], [employer] Alis Wade RDCS Procedure CPT: Indications: pericardial effusion Cardiac Hx: Technical Quality: Fair Contrast 1: Total Dose (mL): Contrast 2: Total Dose (mL): MEASUREMENTS (Male / Female) Normal Values 2D ECHO LV Diastolic Diameter PLAX 4.5 cm 4.2 - 5.9 / 3.9 - 5.3 cm LV Systolic Diameter PLAX 2.8 cm IVS Diastolic Thickness 1.0 cm 0.6 - 1.0 / 0.6 - 0.9 cm LVPW Diastolic Thickness 0.8 cm 0.6 - 1.0 / 0.6 - 0.9 cm LV Relative Wall Thickness 0.4 RV Internal Dim ED PLAX 3.1 cm LA Volume 30.6 cm??? 18 - 58 / 22 - 52 cm??? LA Volume Index 20.8 cm???/m??? 16 - 28 cm???/m??? M-MODE Aortic Root Diameter MM 2.8 cm LA Systolic Diameter MM 3.5 cm LA Ao Ratio MM 1.3 AV Cusp Separation MM 1.6 cm DOPPLER AV Peak Velocity 174.8 cm/s AV Peak Gradient 12.2 mmHg AV Mean Velocity 116.9 cm/s AV Mean Gradient 6.2 mmHg AV Velocity Time Integral 31.1 cm LVOT Peak Velocity 114.6 cm/s LVOT Peak Gradient 5.3 mmHg LVOT Velocity Time Integral 21.8 cm MV Area PHT 4.7 cm??? Mitral E Point Velocity 52.2 cm/s Mitral A Point Velocity 83.6 cm/s Mitral E to A Ratio 0.6 MV Deceleration Time 161.7 ms TR Peak Velocity 287.6 cm/s TR Peak Gradient 33.1 mmHg Right Ventricular Systolic Press 37.4 mmHg FINDINGS Left Ventricle Mildly increased left ventricular wall thickness. Left ventricular cavity size normal. Normal left ventricular systolic function with no obvious regional wall motion abnormalities. Left ventricular ejection fraction is estimated at 55-60%. Right Ventricle Normal right ventricular size and function. Mild pulmonary hypertension. Right Atrium Normal right atrial size. Left Atrium Normal left atrial size. Mitral Valve Structurally normal mitral valve. Mild mitral regurgitation. Aortic Valve Trileaflet aortic valve. No aortic valve stenosis or regurgitation. Tricuspid Valve Structurally normal tricuspid valve. Mild tricuspid regurgitation. Pulmonic Valve Structurally normal pulmonic valve. Pericardium Small to medium size pericardial effusion. Aorta Normal size aortic root and proximal ascending aorta. CONCLUSIONS Normal LV function A medium-sized pericardial effusion Mild pulmonary hypertension No evidence of tamponade Previewed by: Dr. Riky Shahid MD (Electronically Signed) Final Date: 27 July 2023 18:02
[2023-07-27] MEDS: BUDESONIDE 0.5 MG/2 ML NEBU INHALATION SCH (20:04)
[2023-07-27] MEDS: COLCHICINE 0.6 MG EACH PO SCH (20:45)
[2023-07-27] MEDS: TOPIRAMATE 25 MG TAB PO SCH (20:47)
[2023-07-27] MEDS: PROPRANOLOL 20 MG TAB PO SCH (20:47)
[2023-07-27] MEDS ORDERED: AMITRIPTYLINE HCL 50 MG TAB PO SCH (21:00)
[2023-07-27] MEDS ORDERED: ATORVASTATIN 40 MG TAB PO SCH (21:00)
[2023-07-28] MEDS: traMADol 50 MG TAB PO PRN (00:09)
[2023-07-28] MEDS: PRAZOSIN 1 MG CAP PO SCH (03:39)
[2023-07-28 04:25] VITALS: RESP 18
[2023-07-28] MEDS: HYDROcodone/APAP 7.5-325MG 1 EACH TAB PO PRN (06:02)
[2023-07-28] MEDS: PANTOPRAZOLE 40 MG TABLET PO SCH (06:02)
[2023-07-28] MEDS: SODIUM CHLORIDE 0.9% 1,000 ML IV SCH (06:02)
[2023-07-28] MEDS: LEVOTHYROXINE 88 MCG TAB PO SCH (06:02)
[2023-07-28] MEDS ORDERED: NON FORMULARY DRUG (Fluticasone/Umeclidin/Vilanter [Trelegy Ellipta 100-62.5-25] 1 EACH Bl INHALATION SCH (08:00)
[2023-07-28 08:31] LABS: Basophils % (A) 0 %; Eosinophils # (A) 0.3 k/uL (0-0.7); Eosinophils % (A) 3 %; HCT 37.5 % (34.0-46.0); Lymphocytes # (A) 2.4 k/uL (1.0-4.8); Lymphocytes % (A) 23 %; MCH 33.3 pg (25.0-35.0); MCHC 31.9 g/dL (31.0-37.0); MCV 104.3 fL (80.0-100.0); Macrocytosis Slight; Mean Platelet Volume 7.1; Monocytes # (A) 0.5 k/uL (0-1.0); Monocytes % (A) 5 %; Neutrophils # (A) 7.1 k/uL (1.3-7.7); Neutrophils % (A) 68 %; Platelet Count 625 k/uL (150-450); RDW 13.6 % (11.5-15.5); WBC 10.5 k/uL (3.8-10.6)
[2023-07-28 08:44] LABS: INR 0.9 (<1.2); Prothrombin Time 9.7 sec (10.0-12.5)
[2023-07-28] MEDS: PROPRANOLOL 20 MG TAB PO SCH (08:45)
[2023-07-28] MEDS: ENOXAPARIN 40 MG/0.4 ML SYRINGE SQ SCH ×2 (08:45→09:18)
[2023-07-28] MEDS: LORATADINE 10 MG TAB PO SCH (08:45)
[2023-07-28] MEDS: ASENAPINE 5 MG TAB SUBLINGUAL SCH (08:45)
[2023-07-28] MEDS: SERTRALINE 100 MG TAB PO SCH (08:46)
[2023-07-28] MEDS: COLCHICINE 0.6 MG EACH PO SCH (08:46)
[2023-07-28] MEDS: GABAPENTIN 400 MG CAP PO SCH (08:46)
[2023-07-28] MEDS: IBUPROFEN 400 MG TAB PO SCH (08:46)
[2023-07-28] MEDS: TOPIRAMATE 25 MG TAB PO SCH (08:47)
[2023-07-28] MEDS: busPIRone HCl 10 MG TAB PO SCH (08:47)
[2023-07-28 08:48] LABS: African American GFR (CKD) >90 (>60 ml/min/1.73 sqM); Anion Gap 8 mmol/L; Blood Urea Nitrogen 19 mg/dL (7-17); Calcium 8.5 mg/dL (8.4-10.2); Carbon Dioxide 20 mmol/L (22-30); Chloride 110 mmol/L (98-107); Glucose 116 mg/dL (74-99); Non-African American GFR(CKD) >90 (>60 ml/min/1.73 sqM); Potassium 4.1 mmol/L (3.5-5.1); Sodium 138 mmol/L (137-145)
[2023-07-28] MEDS: BUDESONIDE 0.5 MG/2 ML NEBU INHALATION SCH (08:48)
[2023-07-28] MEDS: CYCLOBENZAPRINE 5 MG TAB PO SCH (08:48)
[2023-07-28] MEDS: IPRATROPIUM-ALBUTEROL 3 ML NEB INHALATION SCH ×2 (08:48→12:24)
[2023-07-28] MEDS: CEFEPIME 2 GM in SODIUM CHLORIDE 0.9% 100 ML IVPB SCH (08:49)
[2023-07-28] MEDS: FUROSEMIDE 20 MG TAB PO SCH (08:52)
[2023-07-28 08:55] VITALS: TEMP 97.4
[2023-07-28] MEDS ORDERED: MAGNESIUM OXIDE 400 MG TAB PO SCH (09:00)
[2023-07-28] MEDS: NON FORMULARY DRUG (Brivaracetam [Briviact] 100 MG Tablet) PO SCH (09:08)
[2023-07-28] MEDS: CLOBAZAM 10 MG PO SCH (09:08)
--- NOTE | 2023-07-28 10:15 | P.PN ---
Subjective Progress Note Date: 07/28/23 History of present illness: This is a 53-year-old female patient of Dr. Lexi Shahid with past medical history of hypertension, dyslipidemia, peripheral vascular disease, family history of premature coronary artery disease, tobacco use and dependence. We have been asked to evaluate the patient for chest pain. Patient states that she had recent surgery on her neck [address] Baez son. She had previously been seen in the office for preoperative clearance and underwent dobutamine stress echocardiogram that obtain a 76% of predicted maximal heart rate and did not have any chest pain or diagnostic ST segment depression. No dobutamine induced wall motion abnormalities. Patient was cleared for surgery. She states the chest pain was in her midsternal area and was a sharp and stabbing with deep breathing. It would also to her shoulders and her back. She complains of a cough she states it started right after she had an argument with her boyfriend and was moving furniture. EKG sinus tachycardia nonspecific ST-T wave changes. Chest x-ray: Mild infiltration or atelectasis in the right lung base. Otherwise no acute findings in the chest. CTA of the chest showed no evidence of pulmonary emboli. Moderately large pericardial effusion. WBC 13, hemoglobin 13.4, platelet count 706. D-dimer 1.64. Potassium 3.2 and has been replaced. Otherwise electrolytes are normal. Creatinine 0.85. Troponin negative 3. Glucose 107. Liver function tests are normal. Home cardiac medications: Atorvastatin 40 mg at bedtime, Lasix 60 mg daily, levothyroxine 88 g daily, Minipress 2 mg twice daily, Inderal 20 mg twice daily 07/28 Patient is seen today on the cardiac stepdown unit. She states that her chest pain is better this morning. She was started yesterday on colchicine, ibuprofen and continued on Protonix. Echocardiogram reveals normal LV function. Medium sized pericardial effusion. Mild pulmonary hypertension. No evidence of tamponade. Patient is very anxious to be discharged home today. Physical examination: Gen: This is a 53-year-old female. She is resting in bed appears to be comfortable. VS: reviewed HEENT: Head is atraumatic, normocephalic. Pupils equal, round. Sclerae is anicteric. LUNGS: Clear to auscultation. No wheezes or rhonchi. No intercostal retractions. HEART: Regular rate and rhythm. No murmur. EXTREMITIES: No pedal edema. No calf tenderness. NEUROLOGICAL: Patient is awake, alert and oriented x3. Assessment: Pericardial effusion, medium size, most likely due to pericarditis Chest pain, acute coronary syndrome ruled out Hypertension Dyslipidemia Plan: Continue patient's home cardiac medications Continue patient on colchicine 0.6 mg twice daily for 1 month Continue ibuprofen 400 mg 3 times daily and continue Protonix Patient is cleared from cardiology for discharge to make follow-up in the office in 3-4 weeks. Nurse practitioner note has been reviewed, I agree with documented findings and plan of care. Patient was seen and examined. Objective - Vital Signs Vital signs: Vital Signs Temp 97 F L 07/28/23 04:00 Pulse 95 07/28/23 04:00 Resp 18 07/28/23 04:00 BP 115/78 07/28/23 04:00 Pulse Ox 97 07/28/23 04:00 FiO2 Intake & Output 07/27/23 07/28/23 07/28/23 18:59 06:59 18:59 Intake Total 240 Balance 240 Weight 51.71 kg Intake: Oral 240 Other: Voiding Method Toilet # Voids 1 - Labs CBC & Chem 7: 07/28/23 07:31 07/28/23 07:31
--- NOTE | 2023-07-28 11:06 | P.DS ---
Providers Date of admission: 07/27/23 06:08 Expected date of discharge: 07/28/23 Attending physician: Leighann Jennings Consults: 07/27/23 06:08 Consult Physician Routine Consulting Provider: Pino Romano Consult Reason/Comments: CP pericardial effusion Do you want consulting provider notified?: Yes Primary care physician: Harpreet Mcduffie Bradley Hospital Course: * 53-year-old patient with past medical history significant for seizure disorder, asthma, COPD, hypothyroid, IBS, restless leg syndrome, anxiety, bipolar, PTSD, hypertension, chronic pericardial effusion, had a recent cervical/thoracic decompression and fusion for cervical radiculopathy. Patient presents to the hospital with complaints of chest pain. Patient states chest pain started around 7 PM on 07/26, patient described pain sharp in nature and worsened with breaths. Pain pleuritic in nature and located midsternal. Patient had surgery done with Dr. Pat Alba on 07/14/23. She was discharged home on 07/17/23. * Workup initiated in ER included basic metabolic panel which showed WBC count of 13, platelet count of 706, elevated neutrophil shift. D-dimer 1.64. Serum chemistry sodium 139 potassium 3.2, and Axid 23 BUN 14 creatinine 0.8 initial troponin obtained negative * CT chest angiography, negative for pulmonary embolism does show moderate pericardial effusion. * EKG obtained shows sinus a Cardia nonspecific ST segment changes * Chest x-ray shows mild infiltration in right lung base * Patient admitted to medical for with consultations obtained from cardiology, and started treatment for pneumonia * 07/28/2023: Patient was admitted to medical floor, consultation obtained from cardiology, patient was seen by cardiology and echocardiogram completed which showed moderate pericardial effusion noted per not noted. Patient chest pain improved as well. Chest pain resolved. Breathing well on room air denies of back pain follow-up with spine team scheduled for 07/29/23. Patient received IV cefepime and transition to oral Augmentin. Prescription for Augmentin provided prescription for colchicine and Motrin provided by cardiology REVIEW OF SYSTEMS: Pleuritic chest painR JOYCE OLVED CONSTITUTIONAL: No fever, no malaise, no fatigue. HEENT: No recent visual problems or hearing problems. Denied any sore throat. CARDIOVASCULAR: No chest pain, orthopnea, PND, no palpitations, no syncope. PULMONARY: No shortness of breath, no cough, no hemoptysis. GASTROINTESTINAL: No diarrhea, no nausea, no vomiting, no abdominal pain. NEUROLOGICAL: No headaches, no weakness, no numbness. HEMATOLOGICAL: Denies any bleeding or petechiae. GENITOURINARY: Denies any burning micturition, frequency, or urgency. MUSCULOSKELETAL/RHEUMATOLOGICAL: Denies any joint pain, swelling, or any muscle pain. ENDOCRINE: Denies any polyuria or polydipsia. PHYSICAL EXAMINATION: GENERAL: The patient is alert and oriented x3, not in any acute distress. Well developed, well nourished. Cervical collar in place HEENT: Pupils are round and equally reacting to light. EOMI. CARDIOVASCULAR: S1 and S2 present. No murmurs, rubs, or gallops. PULMONARY: Chest is clear to auscultation, no wheezing or crackles. ABDOMEN: Soft, nontender, nondistended, normoactive bowel sounds. No palpable organomegaly. MUSCULOSKELETAL: No joint swelling or deformity. EXTREMITIES: No cyanosis, clubbing, or pedal edema. NEUROLOGICAL: Gross neurological examination did not reveal any focal deficits. SKIN: No rashes. Assessment: Assessment and plan Pericardial effusion with chest pain Right lower lobe pneumonia Status post c2-T2 spine surgery 07/14/23 History of seizure disorder Hypothyroid Generalized anxiety/PTSD Dyslipidemia * In regards to chest pain, serial troponins ordered, negative, echocardiogram ordered shows moderate pericardial effusion, cardiology consulted and dilated the patient and cleared for discharge. CT chest negative for pulmonary embolism * In regards to right lower lobe pneumonia, noted to have elevated WBC count with elevated neutrophil shift continue patient on IV cefepime, transition to Augmentin * In regards to cervical spine surgery, CT negative for pulmonary embolism * In regards to hypothyroid, continue Synthyroid * In regards to dyslipidemia continue Lipitor * In regards to history of seizure disorder home medications reviewed and reconciled, maintain seizure precautions * In regards to history of anxiety/psychiatric illness continue home regimen patient has a legal guardian as well, threatened to leave AGAINST MEDICAL ADVICE during the hospital stay. However legal guardian was notified * Patient discharged home in stable condition Patient Condition at Discharge: Stable Plan - Discharge Summary Discharge Rx Participant: No New Discharge Prescriptions: New Ibuprofen [Motrin] 400 mg PO TID 5 Days tab Amoxic-Pot Clav 875-125Mg [Augmentin 875-125] 1 tab PO Q12HR 4 Days #8 tab Colchicine [Colcrys] 0.6 mg PO BID #60 each Continue Sertraline [Zoloft] 200 mg PO QAM Asenapine Maleate [Saphris] 10 mg SUBLINGUAL BID Atorvastatin [Lipitor] 40 mg PO HS Pantoprazole Sodium [Protonix] 40 mg PO BID Gabapentin 800 mg PO TID busPIRone HCl [Buspar] 15 mg PO TID SUMAtriptan succinate [Imitrex] 100 mg PO DAILY PRN PRN Reason: Migraine Headache Albuterol Sulfate [Proair Hfa] 2 puff INHALATION RT-QID PRN PRN Reason: Shortness Of Breath Prazosin HCl [Minipress] 2 mg PO BID@0300,1700 Sennosides [Senokot] 17.2 mg PO HS Fluticasone/Umeclidin/Vilanter [Trelegy Ellipta 100-62.5-25] 1 puff INHALATION RT-DAILY Brivaracetam [Briviact] 100 mg PO BID Magnesium Oxide [Mag-Ox] 400 mg PO DAILY Acetaminophen Tab [Tylenol] 500 mg PO Q6H Budesonide [Pulmicort] 0.5 mg INHALATION RT-BID Butalb/Acetaminophen/Caffeine [Fioricet 50-325-40] 1 tab PO TID PRN PRN Reason: Headache Cyclobenzaprine [Flexeril] 5 mg PO TID Fluticasone Nasal [place] [Flonase Nasal [place]] 1 spray EA NOSTRIL DAILY Furosemide [Lasix] 60 mg PO DAILY HYDROcodone/APAP 7.5-325MG [[place] 7.5-325] 1 tab PO Q8H PRN PRN Reason: Pain Ipratropium-Albuterol Nebulize [Duoneb 0.5 mg-3 mg/3 ml Soln] 3 ml INHALATION RT-QID Propranolol [Inderal] 20 mg PO BID rOPINIRole HCL [Requip] 1 mg PO BID cloBAZam [Sympazan] 10 mg PO BID Topiramate [Trokendi Xr] 100 mg PO QAM Asenapine Maleate [Saphris] 2.5 mg SUBLINGUAL DAILY@1700 PRN PRN Reason: Agitation hydrOXYzine pamoate [Vistaril] 50 mg PO TID PRN PRN Reason: Anxiety rOPINIRole HCL [Requip] 2 mg PO BID Amitriptyline HCl [Elavil] 50 mg PO HS Cetirizine HCl [Zyrtec] 10 mg PO DAILY Levothyroxine Sodium [Synthroid] 88 mcg PO DAILY Discharge Medication List Asenapine Maleate [Saphris] 10 mg SUBLINGUAL BID 04/30/17 [History] Sertraline [Zoloft] 200 mg PO QAM 04/30/17 [History] Atorvastatin [Lipitor] 40 mg PO HS 05/24/17 [History] Pantoprazole Sodium [Protonix] 40 mg PO BID 01/07/19 [History] Asenapine Maleate [Saphris] 2.5 mg SUBLINGUAL DAILY@1700 PRN 04/15/21 [History] Gabapentin 800 mg PO TID 04/15/21 [History] SUMAtriptan succinate [Imitrex] 100 mg PO DAILY PRN 04/15/21 [History] Topiramate [Trokendi Xr] 100 mg PO QAM 04/15/21 [History] busPIRone HCl [Buspar] 15 mg PO TID 04/15/21 [History] cloBAZam [Sympazan] 10 mg PO BID 04/15/21 [History] hydrOXYzine pamoate [Vistaril] 50 mg PO TID PRN 04/16/21 [History] Albuterol Sulfate [Proair Hfa] 2 puff INHALATION RT-QID PRN 05/10/21 [History] Prazosin HCl [Minipress] 2 mg PO BID@0300,1700 05/10/21 [History] rOPINIRole HCL [Requip] 2 mg PO BID 05/10/21 [History] Fluticasone/Umeclidin/Vilanter [Trelegy Ellipta 100-62.5-25] 1 puff INHALATION RT-DAILY 12/10/22 [History] Sennosides [Senokot] 17.2 mg PO HS 12/10/22 [History] Brivaracetam [Briviact] 100 mg PO BID 07/10/23 [History] Magnesium Oxide [Mag-Ox] 400 mg PO DAILY 07/10/23 [History] Acetaminophen Tab [Tylenol] 500 mg PO Q6H 07/27/23 [History] Amitriptyline HCl [Elavil] 50 mg PO HS 07/27/23 [History] Budesonide [Pulmicort] 0.5 mg INHALATION RT-BID 07/27/23 [History] Butalb/Acetaminophen/Caffeine [Fioricet 50-325-40] 1 tab PO TID PRN 07/27/23 [History] Cetirizine HCl [Zyrtec] 10 mg PO DAILY 07/27/23 [History] Cyclobenzaprine [Flexeril] 5 mg PO TID 07/27/23 [History] Fluticasone Nasal [place] [Flonase Nasal [place]] 1 spray EA NOSTRIL DAILY 07/27/23 [History] Furosemide [Lasix] 60 mg PO DAILY 07/27/23 [History] HYDROcodone/APAP 7.5-325MG [[place] 7.5-325] 1 tab PO Q8H PRN 07/27/23 [History] Ipratropium-Albuterol Nebulize [Duoneb 0.5 mg-3 mg/3 ml Soln] 3 ml INHALATION RT-QID 07/27/23 [History] Levothyroxine Sodium [Synthroid] 88 mcg PO DAILY 07/27/23 [History] Propranolol [Inderal] 20 mg PO BID 07/27/23 [History] rOPINIRole HCL [Requip] 1 mg PO BID 07/27/23 [History] Amoxic-Pot Clav 875-125Mg [Augmentin 875-125] 1 tab PO Q12HR 4 Days #8 tab 07/28/23 [Rx] Colchicine [Colcrys] 0.6 mg PO BID #60 each 07/28/23 [Rx] Ibuprofen [Motrin] 400 mg PO TID 5 Days tab 07/28/23 [Rx] Follow up Appointment(s)/Referral(s): Harpreet Ballard [Primary Care Provider] - 1-2 days Riky Shahid MD [STAFF PHYSICIAN] - 3 Weeks Discharge Disposition: HOME WITH HOME HEALTH SERVICES
[2023-07-28 12:21] VITALS: BP 124/78; PULSE 96
[2023-07-29 02:04] LABS: Erythrocyte Sedimentation Rate 46 mm/Hr (0-30)
== END 2023-07-28 14:07 | disposition home health service (06) ==
LOC: EC 01:50 → 6NMEDSUR 06:08 → 3SCARD 06:19
PROVIDERS: ADMIT Hospitalist; ATTEND Hospitalist
DX: I31.39 Other pericardial effusion (noninflammatory) (principal); J44.0 Chronic obstructive pulmonary disease with (acute) lower respiratory infection; J18.9 Pneumonia, unspecified organism; I11.0 Hypertensive heart disease with heart failure; I50.9 Heart failure, unspecified; G40.909 Epilepsy, unspecified, not intractable, without status epilepticus; E03.9 Hypothyroidism, unspecified; E78.5 Hyperlipidemia, unspecified; I73.9 Peripheral vascular disease, unspecified; I27.20 Pulmonary hypertension, unspecified; M79.7 Fibromyalgia; I25.2 Old myocardial infarction; K21.9 Gastro-esophageal reflux disease without esophagitis; M19.90 Unspecified osteoarthritis, unspecified site; G25.81 Restless legs syndrome; E55.9 Vitamin D deficiency, unspecified; G43.909 Migraine, unspecified, not intractable, without status migrainosus; K58.9 Irritable bowel syndrome, unspecified; H26.9 Unspecified cataract; R41.3 Other amnesia; F43.10 Post-traumatic stress disorder, unspecified; F41.1 Generalized anxiety disorder; F31.9 Bipolar disorder, unspecified; F17.200 Nicotine dependence, unspecified, uncomplicated; Z79.51 Long term (current) use of inhaled steroids; Z79.890 Hormone replacement therapy; Z79.899 Other long term (current) drug therapy; Z91.030 Bee allergy status; Z98.1 Arthrodesis status; Z98.890 Other specified postprocedural states; Z80.0 Family history of malignant neoplasm of digestive organs; Z82.49 Family history of ischemic heart disease and other diseases of the circulatory system; Z81.8 Family history of other mental and behavioral disorders
CPT/HCPCS: 96361 ×2; 96366 ×3; 96365; 96375; 99285; 36415; 94640 ×3; 93005; 93306; 85379; 80053; 80048; 87449; 85652; 83735; 84484; 85025 ×2; 85610 ×2; 85730; 87040; 71046; 71275; G0378 ×2; J2060; J0692 ×2; Q9967

== ENCOUNTER → 2023-10-13 | Outpatient (CLI) | payer OTHER ==
[2023-10-13 15:33] LABS: Basophils # (A) 0.06 X 10*3/uL (0.00-0.10); Basophils % (A) 0.7 %; Eosinophils # (A) 0.21 X 10*3/uL (0.04-0.35); Eosinophils % (A) 2.4 %; HCT 42.9 % (37.2-46.3); HGB 14.1 g/dL (12.0-15.0); Lymphocytes # (A) 2.22 X 10*3/uL (0.90-5.00); Lymphocytes % (A) 25.5 %; MCH 33.7 pg (27.0-32.0); MCHC 32.9 g/dL (32.0-37.0); MCV 102.4 FL (80.0-97.0); Mean Platelet Volume 8.8 FL (9.5-12.2); Monocytes # (A) 0.75 X 10*3/uL (0.20-1.00); Monocytes % (A) 8.6 %; NRBC Per 100 WBC 0 X 10*3/uL (0.00-0.01); Neutrophils # (A) 5.43 X 10*3/uL (1.80-7.70); Neutrophils % (A) 62.3 %; Platelet Count 537 X 10*3/uL (140-440); RBC 4.19 X 10*6/uL (4.10-5.20); RDW 14.7 % (11.5-14.5); WBC 8.71 X 10*3/uL (4.50-10.00)
[2023-10-13 15:57] LABS: ALT 5 U/L (8-44); AST 10 U/L (13-35); Albumin/Globulin Ratio 1.54 Ratio (1.60-3.17); Alkaline Phosphatase 115 U/L (41-126); BUN/Creat Ratio 14.75 Ratio (12.00-20.00); Blood Urea Nitrogen 11.8 mg/dL (9.0-27.0); Calcium 9.9 mg/dL (8.7-10.3); Carbon Dioxide 24.1 mmol/L (21.6-31.8); Chloride 106 mmol/L (96-109); Chol/HDL Ratio 4.41 Ratio; Globulin 2.6 g/dL (1.6-3.3); Glucose 104 mg/dL (70-110); LDL Cholesterol,Calculated 136.7 mg/dL (0.0-131.0); Potassium 4.5 mmol/L (3.5-5.5); Sodium 144 mmol/L (135-145); T4, Free (Free Thyroxine) 1.04 ng/dL (0.80-1.80); Total Bilirubin <0.2 mg/dL (0.3-1.2); Total Protein 6.6 g/dL (6.2-8.2)
[2023-10-13 19:32] LABS: Valproic Acid (Depakene) <2.8 UG/ML (50.0-100.0)
== END | disposition home or self-care (01) ==
LOC: LABWHC1 11:22
PROVIDERS: ATTEND Nurse Practitioner Psychiatric/Mental Health
DX: F31.4 Bipolar disorder, current episode depressed, severe, without psychotic features (principal); Z79.899 Other long term (current) drug therapy
CPT/HCPCS: 36415; 80053; 80061; 80164; 82306; 82607; 82746; 83036; 84439; 84443; 85025

== ENCOUNTER → 2023-10-19 | Outpatient (CLI) | payer OTHER ==
[2023-10-19 10:32] VITALS: BP 111/81; PULSE 95; RESP 16; TEMP 97.5
--- NOTE | 2023-10-19 14:36 | P.PAINPG ---
PQRS Measure Charge Sheet Comment: HISTORY OF PRESENT ILLNESS: A 53 yr old female as a referral from Jessica Paul [facility] presents today w severe and chronic neck pain x 10 yrs secondary to post laminectomy syndrome for evaluation. Pt states pain level is provoked at 10 /10 in intensity, constant, localized in the lower cervical spine, predominantly axial, throbbing in character w occasional shooting pain towards the shoulders. Pain is provoked by standing for periods > 15 min. Pain is alleviated by . Cervical disability score at . PMH: OA, Asthma, CHF, COPD, Fibromyalgia, GERD, Hyperlipidemia, HTN, Memory Impairment, PR, Seizure Disorder (2020), Hypothyroid Disorder, IBS, Vitamin D Deficiency, MDD/ Anxiety/ PTSD PSH: Cervical ACDF C2-C6, BL Cataract Extraction, Lumbar Surgery, D&C, BL Knee Arthroscopy SH: Daily tobacco use, No ETOH abuse, Cannabis use. No children. FH: Fa- Pancreatic CA/ at age 64. Mo- CHG/ at age 62. Bro- at 5 mo age. Sis- Bipolar Disorder. Sis- fr Overdose at age 28. All: See list Meds: See list REVIEW OF ORGAN SYSTEMS: CONSTITUTIONAL: No fevers or chills. No recent weight loss. NEUROLOGICAL: + numbness and tingling along the distal extremities. No seizure disorders or headaches. MUSCULOSKELETAL: + pain PSYCHIATRIC: Denies current depression or suicidal thoughts. Physical Examinations : Constitutional : Cooperative , not in acute distress . Neurologic : Cranial nerve II to XII intact. No focal neurological deficits. Psychiatric : alert & oriented x 3. Matching mood & appropriate affect. Judgment & insight intact. Musculoskeletal : Cervical Spine Motor strength in the deltoid and biceps: Normal right side. Normal Left side Motor strength biceps and the wrist extensors: Normal right side . Normal left side Motor strength in the triceps muscle: Normal right side. Normal left side Deep tendon reflexes: Normal at the biceps. Normal at Brachioradialis. Normal at triceps Vertebral body tenderness to deep palpation over C7 Cervical facet loading test: positive bilaterally Spurling test: positive bilaterally Neck distraction test: positive bilaterally Suhas sign: positive bilaterally Lumbar spine Motor strength lower extremities ,thigh and legs 5/5 Right side , 5/5 Left side Deep tendon reflexes : Normal Knee Jerk. Normal Ankle Jerk Vertebral body tenderness over Bennett Test positive Lumbar facet Loading Test: positive Right / positive Left Range of motion of the lumbar spine Flexion 30 degrees, extension 10 degrees Straight Leg Raise test: Left/ Right positive at degrees Ilya test: positive right / positive left. Severe tenderness over the Sacroiliac joint on the Right / Left sides Gaenslen test: positive bilaterally Seated flexion test: positive bilaterally. Sacral spine : Severe tenderness over the Sacroiliac joint: right side / left side Range of motion: Flexion of the lumbar spine <60 degrees Range of motion: Extension of the lumbar spine <20 degrees Gaenslen's Test positive Ilya test: positive right side / left side Thigh Thrust Test Sacral Thrust Test Imaging: CT noncontrast of the cervical spine from 07/14/23 reviewed Assessment/ Plan : C2-3 ACDF, C3-C6 ACDF Recommendation of PT x 6 wks M50.30 Diclofenac gel 3% apply BID Disp 1 tube w 1 RF. All questions answered. I have spent greater than 30 minutes on patient care today. Dr Rodriguez was available by phone for the evaluation of this patient. The time was used to review the medical records including relevant urine studies and Prescription history (MAPs), review of the available imaging, evaluation and examination of the patient, coordination of care with the medical staff and if applicable referring physicians, as well as creation of the medical record PQRS Narrative: Smoking Status Current every day smoker Home Medications: Ambulatory Orders Asenapine Maleate [Saphris] 10 mg SUBLINGUAL BID 04/30/17 Sertraline [Zoloft] 200 mg PO QAM 04/30/17 Atorvastatin [Lipitor] 40 mg PO HS 05/24/17 Pantoprazole Sodium [Protonix] 40 mg PO BID 01/07/19 Asenapine Maleate [Saphris] 2.5 mg SUBLINGUAL DAILY@1700 PRN 04/15/21 Gabapentin 800 mg PO TID 04/15/21 SUMAtriptan succinate [Imitrex] 100 mg PO DAILY PRN 04/15/21 Topiramate [Trokendi Xr] 100 mg PO QAM 04/15/21 busPIRone HCl [Buspar] 15 mg PO TID 04/15/21 cloBAZam [Sympazan] 10 mg PO BID 04/15/21 hydrOXYzine pamoate [Vistaril] 50 mg PO TID PRN 04/16/21 Albuterol Sulfate [Proair Hfa] 2 puff INHALATION RT-QID PRN 05/10/21 Prazosin HCl [Minipress] 2 mg PO BID@0300,1700 05/10/21 rOPINIRole HCL [Requip] 2 mg PO BID 05/10/21 Fluticasone/Umeclidin/Vilanter [Trelegy Ellipta 100-62.5-25] 1 puff INHALATION RT-DAILY 12/10/22 Sennosides [Senokot] 17.2 mg PO HS 12/10/22 Brivaracetam [Briviact] 100 mg PO BID 07/10/23 Magnesium Oxide [Mag-Ox] 400 mg PO DAILY 07/10/23 Acetaminophen Tab [Tylenol] 500 mg PO Q6H 07/27/23 Amitriptyline HCl [Elavil] 50 mg PO HS 07/27/23 Budesonide [Pulmicort] 0.5 mg INHALATION RT-BID 07/27/23 Butalb/Acetaminophen/Caffeine [Fioricet 50-325-40] 1 tab PO TID PRN 07/27/23 Cetirizine HCl [Zyrtec] 10 mg PO DAILY 07/27/23 Cyclobenzaprine [Flexeril] 5 mg PO TID 07/27/23 Fluticasone Nasal [place] [Flonase Nasal [place]] 1 spray EA NOSTRIL DAILY 07/27/23 Furosemide [Lasix] 60 mg PO DAILY 07/27/23 HYDROcodone/APAP 7.5-325MG [[place] 7.5-325] 1 tab PO Q8H PRN 07/27/23 Ipratropium-Albuterol Nebulize [Duoneb 0.5 mg-3 mg/3 ml Soln] 3 ml INHALATION RT-QID 07/27/23 Levothyroxine Sodium [Synthroid] 88 mcg PO DAILY 07/27/23 Propranolol [Inderal] 20 mg PO BID 07/27/23 rOPINIRole HCL [Requip] 1 mg PO BID 07/27/23 Amoxic-Pot Clav 875-125Mg [Augmentin 875-125] 1 tab PO Q12HR 4 Days #8 tab 07/28/23 Colchicine [Colcrys] 0.6 mg PO BID #60 each 07/28/23 Ibuprofen [Motrin] 400 mg PO TID 5 Days tab 07/28/23 Controlled Substance Measures - Controlled Substance Measures Is patient prescribed a controlled substance at discharge?: No
== END ==
LOC: PNWHC3 09:35
PROVIDERS: ATTEND Specialist
DX: M47.812 Spondylosis without myelopathy or radiculopathy, cervical region (principal); M43.22 Fusion of spine, cervical region; M19.90 Unspecified osteoarthritis, unspecified site; J44.89 Other specified chronic obstructive pulmonary disease; I11.0 Hypertensive heart disease with heart failure; I50.9 Heart failure, unspecified; I25.2 Old myocardial infarction; E03.9 Hypothyroidism, unspecified; K58.9 Irritable bowel syndrome, unspecified; F32.9 Major depressive disorder, single episode, unspecified; F41.9 Anxiety disorder, unspecified; F43.10 Post-traumatic stress disorder, unspecified; K21.9 Gastro-esophageal reflux disease without esophagitis; E78.5 Hyperlipidemia, unspecified; F12.90 Cannabis use, unspecified, uncomplicated; F17.200 Nicotine dependence, unspecified, uncomplicated; Z79.899 Other long term (current) drug therapy; Z86.69 Personal history of other diseases of the nervous system and sense organs; Z87.39 Personal history of other diseases of the musculoskeletal system and connective tissue; Z79.890 Hormone replacement therapy; Z79.51 Long term (current) use of inhaled steroids; Z91.030 Bee allergy status
CPT/HCPCS: 99211

== ENCOUNTER → 2024-05-12 | Outpatient (CLI) | payer OTHER ==
--- NOTE | 2024-05-12 13:53 | CT ---
EXAMINATION TYPE: CT cervical spine wo con, CT thoracic spine wo con CT DLP: 290.4 (accession [id number]), 541.4 (accession [id number]) mGycm, Automated exposure control for dose reduction was used. DATE OF EXAM: 05/12/2024 1:24 PM COMPARISON: 07/14/2023. CLINICAL INDICATION: Female, 54 years old with history of M54.2 CERViCALGIA M54.6 THORACIC SPINE PAIN , chronic neck pain (accession [id number]), chronic back pain (accession [id number]) TECHNIQUE: Axial imaging of the cervical and thoracic spine without contrast. Coronal and sagittal re formatted images were also reviewed. Contrast used: mL of , (if blank None) Oral contrast used: (if blank None) FINDINGS: Fracture: None. Osseous structures: Postsurgical changes throughout C2-T2. Hardware appears intact. Some of the hardw are is anterior without gallbladder is posterior. Laminectomy changes throughout the cervical spine. Multilevel degeneration with facet and uncovertebral joint arthropathy. Remote appearing right ribs 2 and 3 fractures. Additional hardware seen at T11-T12 and extending inferiorly. Hardware appears inta ct. L1 compression fracture with hardware is present. Vertebroplasty changes at T11. Vertebral alignment: Compression fracture of L1 as well as T2 which appears chronic. Spinal canal/Neural Foramina: No evidence of significant spinal canal narrowing. No evidence for sign ificant neural foraminal stenosis. Neck soft tissues: Prevertebral soft tissues are within normal limits. Other: The airway is patent. [id number] centrilobular emphysema changes. 7 mm right upper lung pulmonary nodule series 5 image 51 IMPRESSION: 1. No evidence for acute thoracic or cervical spine fracture. No evidence for significant spinal junior l or neural foraminal stenosis within the limitations of this exam. 2. Postsurgical changes to the spine with hardware intact. 3. Right upper lung pulmonary nodule measuring up to 7 mm new from prior in 22. Further workup recomm ended. Consider short-term follow-up in 6-12 months. 4. [id number] multilevel degeneration changes of the spine. 5. [id number] emphysema changes. 6. Remote appearing right ribs 2 and 3 fractures.
== END | disposition home or self-care (01) ==
LOC: RADCTMAIN 12:56
PROVIDERS: ATTEND Orthopaedic Surgery
DX: R91.1 Solitary pulmonary nodule (principal); M47.812 Spondylosis without myelopathy or radiculopathy, cervical region; M54.6 Pain in thoracic spine; J43.2 Centrilobular emphysema; G89.29 Other chronic pain; Z98.890 Other specified postprocedural states
CPT/HCPCS: 72125; 72128

== ENCOUNTER → 2024-06-02 | Outpatient (CLI) | payer OTHER ==
--- NOTE | 2024-06-03 09:54 | XR ---
EXAMINATION TYPE: XR abdomen 1V DATE OF EXAM: 06/02/2024 COMPARISON: NONE HISTORY: Constipation TECHNIQUE: One view abdominal series FINDINGS: The osseous structures are intact. The bowel gas pattern is nonspecific. No diagnostic evidence of o bstruction. Significant amount of retained fecal debris. Arthropathy of the hips and chronic deformit y of the pubic rami. Postsurgical change vertebral canal. IMPRESSION: 1. Nonspecific abdomen. Correlate for constipation. [facility], , 06/03/2024 7:31 AM
--- NOTE | 2024-06-03 09:54 | XR ---
EXAMINATION TYPE: XR ribs LT DATE OF EXAM: 06/02/2024 COMPARISON: NONE HISTORY: Pain TECHNIQUE: 2 views of the left ribs FINDINGS: Surgical changes involving the vertebral column there are deformities of the left fourth, f ifth and sixth ribs which appear chronic. Technique limits assessment of the lower rib cage. Visualiz ed lung bills clear. Heart size normal. IMPRESSION: Deformities of the left third, fourth and fifth ribs most likely in the basis of remote f racture. Correlate with point tenderness. [facility], , 06/03/2024 7:49 AM
== END | disposition home or self-care (01) ==
LOC: RADXRMAIN 15:42
PROVIDERS: ATTEND Family Medicine
DX: S23.41XA Sprain of ribs, initial encounter (principal); K59.00 Constipation, unspecified; R31.9 Hematuria, unspecified; M95.4 Acquired deformity of chest and rib; R07.81 Pleurodynia
CPT/HCPCS: 74018

== ENCOUNTER → 2024-06-21 | Outpatient (CLI) | payer OTHER ==
[2024-06-21 18:42] LABS: Basophils # (A) 0.07 X 10*3/uL (0.00-0.10); Basophils % (A) 0.5 %; Eosinophils # (A) 0.14 X 10*3/uL (0.04-0.35); Eosinophils % (A) 1.1 %; HGB 15.1 g/dL (12.0-15.0); Lymphocytes # (A) 1.57 X 10*3/uL (0.90-5.00); Lymphocytes % (A) 12.3 %; MCH 34.1 pg (27.0-32.0); MCHC 32.8 g/dL (32.0-37.0); MCV 103.8 FL (80.0-97.0); Mean Platelet Volume 8.9 FL (9.5-12.2); Monocytes # (A) 0.76 X 10*3/uL (0.20-1.00); Monocytes % (A) 5.9 %; NRBC Per 100 WBC 0 X 10*3/uL (0.00-0.01); Neutrophils # (A) 10.19 X 10*3/uL (1.80-7.70); Neutrophils % (A) 79.7 %; Platelet Count 344 X 10*3/uL (140-440); RBC 4.43 X 10*6/uL (4.10-5.20)
[2024-06-21 18:55] LABS: ALT 10 U/L (8-44); AST 12 U/L (13-35); Albumin 4.2 g/dL (3.8-4.9); Albumin/Globulin Ratio 1.75 Ratio (1.60-3.17); Alkaline Phosphatase 56 U/L (41-126); BUN/Creat Ratio 16.78 Ratio (12.00-20.00); Blood Urea Nitrogen 15.1 mg/dL (9.0-27.0); Calcium 9.5 mg/dL (8.7-10.3); Carbon Dioxide 26.6 mmol/L (21.6-31.8); Chloride 101 mmol/L (96-109); Globulin 2.4 g/dL (1.6-3.3); Glucose 122 mg/dL (70-110); Potassium 4.8 mmol/L (3.5-5.5); Sodium 137 mmol/L (135-145); Total Bilirubin 0.2 mg/dL (0.3-1.2); Total Protein 6.6 g/dL (6.2-8.2)
[2024-06-21 22:26] LABS: INR <0.93 sec (0.93-1.11); Prothrombin Time 9.8 sec (9.9-11.9)
== END | disposition home or self-care (01) ==
LOC: LABWHC1 14:09
PROVIDERS: ATTEND Orthopaedic Surgery
CPT/HCPCS: 36415; 80053; 85025; 85610; 86850; 86900; 86901; 87070

== ENCOUNTER → 2024-09-02 | Outpatient (CLI) | payer OTHER ==
[2024-09-02 15:28] LABS: HCT 46.6 % (37.2-46.3); HGB 15.6 g/dL (12.0-15.0); MCH 33.7 pg (27.0-32.0); MCHC 33.5 g/dL (32.0-37.0); MCV 100.6 FL (80.0-97.0); NRBC Per 100 WBC 0 X 10*3/uL (0.00-0.01); Platelet Count 343 X 10*3/uL (140-440); RBC 4.63 X 10*6/uL (4.10-5.20)
[2024-09-02 15:51] LABS: ALT 10 U/L (8-44); AST 13 U/L (13-35); Alkaline Phosphatase 81 U/L (41-126); BUN/Creat Ratio 13.78 Ratio (12.00-20.00); Blood Urea Nitrogen 12.4 mg/dL (9.0-27.0); Calcium 8.9 mg/dL (8.7-10.3); Carbon Dioxide 26.8 mmol/L (21.6-31.8); Chloride 94 mmol/L (96-109); Globulin 2.5 g/dL (1.6-3.3); Glucose 98 mg/dL (70-110); Potassium 4.3 mmol/L (3.5-5.5); Sodium 132 mmol/L (135-145); Total Bilirubin <0.2 mg/dL (0.3-1.2); Total Protein 6.5 g/dL (6.2-8.2)
[2024-09-02 16:18] LABS: INR <0.93 sec (0.93-1.11); Prothrombin Time 10.1 sec (9.9-11.9)
== END | disposition home or self-care (01) ==
LOC: LABPAT 12:42
PROVIDERS: ATTEND Orthopaedic Surgery
DX: Z01.812 Encounter for preprocedural laboratory examination (principal); M48.02 Spinal stenosis, cervical region; Z22.322 Carrier or suspected carrier of Methicillin resistant Staphylococcus aureus; Z79.899 Other long term (current) drug therapy; Z79.01 Long term (current) use of anticoagulants
CPT/HCPCS: 36415; 80053; 85027; 85610; 86850; 86900; 86901; 87070

== ENCOUNTER 2024-09-09 08:48 | Inpatient (IN) | payer OTHER ==
[~2024-09-09 08:48] MED LIST changes: -DEXAMETHASONE SOD PHOSPHATE 4 MG/ML 1 ML VIAL IV ONE; -HYDROmorphone 0.5 MG/0.5 ML SYRINGE IVP PRN; +fentaNYL (PF) 50 MCG/ML 2 ML AMP IVP PRN
[2024-09-09] MEDS: LACTATED RINGERS 1,000 ML IV SCH (09:36)
[2024-09-09] MEDS: DEXAMETHASONE SOD PHOSPHATE 4 MG/ML 1 ML VIAL IV ONE (09:36)
[2024-09-09] MEDS: ONDANSETRON 4 MG/2 ML VIAL IVP ONE (09:37)
[2024-09-09] MEDS: IV FLUID CONTINUATION 1,000 ML IV ONE ×2 (09:53→09:54)
[2024-09-09] MEDS: MIDAZOLAM 2 MG/2 ML VIAL IV PRN (10:05)
--- NOTE | 2024-09-09 10:11 | P.HPOR ---
History of Present Illness H&P Date: 09/09/24 .T:Title: [facility] SPINE CENTER PREOPERATIVE VISIT ASSESSMENT: 1. s/p C2-T2 decompression and fusion 2.s/p C3-C6 ACDF 3. 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 CERVICOTHORACIC DEFORMITY WITH PAIN PLAN: Spine Surgery Risk Review Ms. Weinstein is presenting for evaluation of mid and low back pain. It was my pleasure to have seen and examined Ms. Weinstein. In our visit today we have had a chance to go over subjective complaints, physical examination findings and treatments including the natural course history without intervention and various interventional options. 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 CT scanfromof CervicalSpine at [facility] on 07/14/2023: - Re-reviewed with the patient today. This is reviewed and again demonstrates cervical spondylosis throughout the cervical spine with cervical kyphosis. 10-12 noted in the supine film. Again spondylolisthesis is noted C3-C4 and C4-C5. No acute fractures are noted. Stenosis is variable foraminal and central throughout the cervical spine. Occipital cervical C1 2 joints are stable. MRI scanfrom 2of Cervical Spine completed at [facility]: - Re-reviewed with the patient today. It was reviewed and again demonstrate similar findings with spondylolisthesis and spondylosis along with kyphosis of the cervical spine. There is moderate to severe stenosis C3-C4 and C4-C5 and C5-C6. There is moderate stenosis C6-C7 which could just be due to gantry. There are no acute fractures or dislocations otherwise noted. No lesions. Listhesis is noted similarly to before. On physical exam, Ms. Weinstein demonstrates: The patient states that she had fallen at home approximately 1 month ago after experiencing a seizure. She notes an intense increase in pain since the time of her fall. Today, she reports experiencing a deep, sharp, shooting pain throughout the mid back that radiates down into the low back. She notes intermittent pain radiating down into the bilateral lower extremities. She denies any significant lower extremity pain at this time. She states her symptoms worsen after all activity. She notes she experiences the most severe pain after prolonged standing. Se notes significant decrease in range of motion since the time of her fall. She reports intermittent headaches and onset of blurred vision about 1 month ago. She reports experiencing severe sleep disturbances related to her ongoing pain and associated symptoms. I have explained to the patient that as their condition progresses it will cause further neurological deficits and eventual paralysis. Based on the patients imaging, physical exam, and the rapid progression and disabling nature of their symptoms, at this time I recommend surgery in the form of a: Revision T2-6 decompression and fusion. I discussed the risk and benefits of this procedure at length with Ms. Weinstein. The patient agreed to considered pursuing the procedure abovementioned. Prior to surgery, she should follow up with her PCP (Cardio, ID, IM etc) for clearance. Questions were invited and answered, and the patient wishes to proceed as outlined below. She recently saw pulmonary, but was not cleared for surgery by them as of yet. We are working on gathering a plan for this as she will need their clearances for surgery. Currently, I am recommendin.Revision T2-6 decompression and fusion 2.Follow up with PCP for surgical clearance 3.Review of surgical risks and benefits as well as an educational packet on the proposed surgical procedure. Risks: All surgical procedures come with inherent risks, including those related to positioning, anesthesia, intraoperative findings, and postoperative complications. It is important to understand that surgery does not come with any guarantee of a successful outcome as complications and adverse events are always possible. The patient was given a handout in office today discussing the surgical procedure and risks associated with the intervention, both of which were discussed with the patient. These risks include but are not limited to the following: * Experiencing same, different or even worse symptoms in back, neck, arms, or legs compared to before surgery. Requiring further surgery or other forms of treatment presently or at some time in the future at same or other levels of the intended spine surgery. On an extreme but fortunately relatively rare basis severe complication such as blindness, stroke, heart attack, temporary and/or permanent nerve injury, paralysis, coma, or may occur, sometimes without known explanation. Surgical complications may include but are not limited to risk of infection, fluid accumulation in the surgical dissection site, including a seroma or hematoma, that requires additional surgery, wound drainage, bleeding, new numbness or weakness, vision changes/loss, spinal fluid leakage, non-healing and/or infected incision, headaches, difficulty or inability to swallow, lara rseness, hemopneumothorax, pneumothorax, impotence, retrograde ejaculation, vaginal dryness; injury to nerves, spinal cord, blood vessels, lymphatics or other vital organs (i.e., bowel injury, injury to the great vessels); heterotopic bone formation; complications related to the hardware such as screws, rods, cages including misplaced hardware, device failure, instrumentation at the wrong spine level, hardware fracture/breakage, or hardware loosening; vertebral failure of the spinal column above or below the newly placed hardware; retained surgical instrumentations or devices and the need for further surgery. * Medical risks of the planned spine surgery include but are not limited to generalized Infections to the whole body or local areas outside of the surgical site (sepsis), heart attack, bleeding, anaphylaxis, meningitis, seizure, epilepsy, hearing loss, burn lópez, laceration of the head or other areas of the body, bruising, hypersensitivity of the skin, bladder over distension; allergic reaction; shoulder injury related to positioning; fat, blood and air clots to other areas of the body like heart, lungs, brain; failure of internal organs such as lungs, kidneys, liver and excessive bleeding. If blood transfusions are necessary, note that transfusions may cause intolerance reactions such as anaphylaxis or other complex reactions. Despite best efforts, the results of spine surgery might not heal in terms of bone, soft tissues such as skin, fascia, ligaments, and joints. Additionally, in order to achieve best possible results, spine surgery may be carried out beyond the initially planned levels and involve decompression, fusion including insertion of hardware at levels other than the original intended area of surgical interest change some portions of the procedure in order to ensure the best possible outcomes. With spine surgery and spinal fusion, there are different off label uses of instrumentation (devices, implants and hardware) as well as biological ramirez bstances (bone morphogenic proteins, demineralized bone matrix) as well as using extra bone from allograft sources (i.e. cadaver bone) or autograft (iliac crest bone, ribs, or the spine itself). The patient has been given information about these practices and their inherent risks and benefits. [facility] is an educational center that serves as a training facility for neurosurgical and orthopedic [employer] and Nursing students. Physician assistants are medically trained surgical providers who function in the outpatient, inpatient, and operating room setting under the direct supervision of the attending surgeon. [facility] has multiple operating rooms with single and overlapping rooms running daily. They currently function under the required guidelines as produced by the [facility] Finance Committee with regards to the overlapping rooms and will continue to comply with changes to this policy as they occur. The requirements include and are complied with as follows: (1) the critical portions of the overlapping rooms will not occur at the same time, (2) the attending physician will be physically present during the critical portions of the procedure and immediately available during the entire case, and (3) a back-up attending is designated should the primary attending not be immediately available. The patient has had a chance to review all the listed information, has been given print outs detailing this information, and has had all his/her questions answered to their satisfaction. It was my pleasure to have seen and examined Ms. Weinstein. In our visit today we have had a chance to go over my understanding of our patient's current condition, the natural course history without intervention and various interventional options. Questions were invited and answered, and the patient wishes to proceed as outlined above. I have seen and examined the patient for 25 minutes and we have spent more than 50% of the time in repeat and detailed counseling about the patient's condition, its natural course history with out and as much as can be predicted with surgery and re-review of various surgical treatment options. In conclusion, Ms. Weinstein requested we proceed with the above suggested surgery and are willing to accept risks and limitations of the suggested surgery as nature of the disease process and our best attempts at treatment for the co ndition. Thank you again for allowing us to be part of your patient's care. Please don't hesitate to contact me if you have any further questions. Signed and authenticated by: Leonel Mchugh DO [facility] [address] [address] Past Medical History Past Medical History: Asthma, Heart Failure, COPD, Deep Vein Thrombosis (DVT), Eye Disorder, Fibromyalgia, GERD/Reflux, Hearing Disorder / Deafness, Hyperlipidemia, Hypertension, Memory Impairment, Myocardial Infarction ([place]), Osteoarthritis (OA), Pneumonia, Respiratory Disorder, Seizure Disorder, Skin Disorder, Syncope, Thyroid Disorder Additional Past Medical History / Comment(s): IBS, colitis, restless legs flexed syndrome, daily migraines, Vitamin D deficiency, benign left breast mass, gastritis, 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 Vision - "sees an orange aura." BILAT CATARACTS & glaucoma. [place]- no hearing aids. Last seizure "couple weeks ago". "Legs are weak and balance is off." emphysema; DVT "few yrs back" Last Myocardial Infarction Date:: 2011 History of Any Multi-Drug Resistant Organisms: None Reported Past Surgical History: Appendectomy, Back Surgery, Hysterectomy, Orthopedic Surgery Additional Past Surgical History / Comment(s): D&C, bilateral knee arthroscopy, neck surg x2, rods & screws in back and neck. Past Anesthesia/Blood Transfusion Reactions: No Reported Reaction, Family History of Problems w/ Anesthesia Additional Past Anesthesia/Blood Transfusion Reaction / Comment(s): severe anxiety & emotional coming out of anesthesia, no hx blood transfusion; mom with anxiety after anesthesia Smoking Status: Current every day smoker - Past Family History Father Family Medical History: Cancer Additional Family Medical History / Comment(s): Father of pancreatic cancer at the age of 62yrs. and lung cancer Mother Family Medical History: Congestive Heart Failure (CHF) Additional Family Medical History / Comment(s): Mother of CHF at the age of 60yrs. Brother(s) Additional Family Medical History / Comment(s): Patient had 1 brother that at 5 months of age. Sister(s) Family Medical History: Deep Vein Thrombosis (DVT) Additional Family Medical History / Comment(s): Patient has one sister with history of depression and bipolar. Patient has 2 half-sisters and one at age 26 from overdose. Patient does not have any children. Medications and Allergies Home Medications Medication Instructions Recorded Confirmed Type Asenapine Maleate [Saphris] 10 mg SUBLINGUAL BID 04/30/17 09/05/24 History Sertraline [Zoloft] 200 mg PO QAM 04/30/17 09/05/24 History Pantoprazole Sodium [Protonix] 40 mg PO BID 01/07/19 09/05/24 History Gabapentin 800 mg PO TID 04/15/21 09/05/24 History Topiramate [Trokendi Xr] 100 mg PO QAM 04/15/21 09/05/24 History busPIRone HCl [Buspar] 15 mg PO TID 04/15/21 09/05/24 History cloBAZam [Sympazan] 10 mg PO BID 04/15/21 09/05/24 History hydrOXYzine pamoate [Vistaril] 50 mg PO TID 04/16/21 09/05/24 History Albuterol Sulfate [Proair Hfa] 2 puff INHALATION RT-QID PRN 05/10/21 09/05/24 History Prazosin HCl [Minipress] 2 mg PO BID@1700,2100 05/10/21 09/05/24 History rOPINIRole HCL [Requip] 3 mg PO BID 05/10/21 09/05/24 History Fluticasone/Umeclidin/Vilanter 1 puff INHALATION RT-DAILY 12/10/22 09/05/24 History [Vidhi Ellipta 100-62.5-25] Sennosides [Senokot] 17.2 mg PO DAILY 12/10/22 09/05/24 History Brivaracetam [Briviact] 100 mg PO BID 07/10/23 09/05/24 History Magnesium Oxide [Mag-Ox] 400 mg PO DAILY 07/10/23 09/05/24 History Budesonide [Pulmicort] 0.5 mg INHALATION RT-BID 07/27/23 09/05/24 History Butalb/Acetaminophen/Caffeine 1 tab PO QID 07/27/23 09/05/24 History [Fioricet 50-325-40] Cetirizine HCl [Zyrtec] 10 mg PO DAILY 07/27/23 09/05/24 History Cyclobenzaprine [Flexeril] 5 mg PO TID 07/27/23 09/05/24 History Fluticasone Nasal [place] [Flonase 1 spray EA NOSTRIL DAILY 07/27/23 09/05/24 History Nasal [place]] Furosemide [Lasix] 60 mg PO DAILY 07/27/23 09/05/24 History Ipratropium-Albuterol Nebulize 3 ml INHALATION BID 07/27/23 09/05/24 History [Duoneb 0.5 mg-3 mg/3 ml Soln] Levothyroxine Sodium [Synthroid] 88 mcg PO DAILY 07/27/23 09/05/24 History Propranolol [Inderal] 20 mg PO BID 07/27/23 09/05/24 History Diclofenac Sodium Gel [Voltaren 1% 100 gm TOPICAL BID 30 Days #1 each 10/19/23 09/05/24 Rx Gel] Acetaminophen-Codeine 300-30mg 1 tab PO TID PRN 09/05/24 09/05/24 History [Tylenol w/codeine #3] Ibuprofen [Motrin] 800 mg PO TID 09/05/24 09/05/24 History Allergies Allergy/AdvReac Type Severity Reaction Status Date / Time bee venom protein (honey bee) Allergy Anaphylaxis Verified 09/09/24 09:10 Physical Examination Osteopathic Statement: *. No significant issues noted on an osteopathic structural exam other than those noted in the History and Physical/Consult.
--- NOTE | 2024-09-09 10:22 | P.ANPRN ---
Procedure Note - Anesthesia - Invasive Line Right Arterial Line Time Out Performed: Yes Date of Procedure: 09/09/24 Time of Procedure: 10:15 Location of Patient: PreOp Preparation: Sterile Prep Arterial Line Location: Radial Ultrasound Used: Yes Purpose - Visualization and Identification of Vasculature: Yes Image Stored and Saved: Yes Narrative: Invasive line placement per sterile protocol utilized. AttemptX1.
[2024-09-09] MEDS ORDERED: TRANEXAMIC 1,000 MG/100ML-NACL PREMIX BAG ONE (10:39)
[2024-09-09] MEDS ORDERED: ePHEDrine 50 MG/ML 1 ML VIAL ONE (10:39)
[2024-09-09] MEDS ORDERED: GLYCOPYRROLATE 0.2 MG/ML 2 ML VIAL ONE (10:39)
[2024-09-09] MEDS ORDERED: PROPOFOL 10 MG/ML 20 ML VIAL IV ONE (10:39)
[2024-09-09] MEDS ORDERED: ROCURONIUM 10 MG/ML (5 ML VIAL) IV ONE (10:39)
[2024-09-09] MEDS ORDERED: LIDOCAINE 1% INJ 10MG/ML (20 ML MDV) ONE (10:39)
[2024-09-09] MEDS ORDERED: NEOSTIGMINE 1 MG/ML 10 ML VIAL ONE (10:39)
[2024-09-09] MEDS ORDERED: VASOPRESSIN 20 UNIT/ML 1 ML VIAL ONE (10:39)
[2024-09-09] MEDS ORDERED: ALBUMIN HUMAN 5% (25gm) 500 ML VIAL IVPB ONE (10:39)
[2024-09-09] MEDS ORDERED: SUCCINYLCHOLINE CHLORIDE 200 MG/10 ML VIAL IV ONE (10:39)
[2024-09-09] MEDS ORDERED: PHENYLEPHRINE-0.9% NACL SYG 1,000 MCG/10 ML SYRINGE ONE (10:39)
[2024-09-09] MEDS ORDERED: fentaNYL (PF) 50 MCG/ML 2 ML AMP ONE (10:39)
[2024-09-09] MEDS: GENTAMICIN 80 MG in SODIUM CHLORIDE 0.9% IRRIGATIO 3,000 ML IRRIGATION ONE (11:38)
[2024-09-09] MEDS: ceFAZolin 3,000 MG in SODIUM CHLORIDE 0.9% IRRIGATIO 3,000 ML IRRIGATION ONE (11:38)
[2024-09-09] MEDS: THROMBIN (BOVINE) 5,000 UNIT VIAL TOPICAL ONE (11:38)
[2024-09-09] MEDS ORDERED: MAGNESIUM HYDROXIDE 2,400 MG/30 ML CUP PO PRN (12:56)
[2024-09-09] MEDS ORDERED: CYCLOBENZAPRINE 5 MG TAB PO PRN (12:56)
[2024-09-09] MEDS ORDERED: HYDROcodone/APAP 5-325MG 1 EACH TAB PO PRN ×2 (12:56→18:26)
[2024-09-09] MEDS ORDERED: SENNOSIDES-DOCUSATE SODIUM 1 EACH TAB PO PRN (12:56)
[2024-09-09] MEDS: VANCOMYCIN 1,000 MG VIAL MISCELLANE ONE (15:00)
[2024-09-09] MEDS: LACTATED RINGERS 1,000 ML IV ONE (15:44)
--- NOTE | 2024-09-09 16:55 | P.PN ---
Progress Note - Text Progress Note Date: 09/09/24 POST OP: DIAGNOSIS: DISTAL JUNCTIONAL FAILURE S/P C2-T2 WITH T2 FRACTURE, SEVERE KYPHOSIS AND DEFORMITY PROCEDURE: REVISION T2-T7 DECOMPRESSION FUSION AND DEFORMITY CORRECTION ANESTHESIA: GETA EBL: 500-600 CC FLUIDS: 2200 cc URINE: 400 cc COMPLICATION: NONE DISPO: STABLE TO PACU POST OP PLAN: -ADMIT TO ICU FOR PRESSURE CONTROL, RESUSCITATION AND MONITORING POST OP LARGE DEFORMITY CASE. MAINTAIN MAPS 80s 24 HRS POST OP- -PAIN CONTROL PRN -ORALS OK -GI PPX -START CHEMO DVT PPX TOMORROW -TEDS/SCDS -PT/OT TO START SOON PT IS ABLE -NON-CONTRASTED CT CERVICAL THORACIC SPINE WHEN ABLE -TURN Q2
[2024-09-09] MEDS: ALBUTEROL NEBULIZED 2.5 MG/3 ML INHALATION STA (17:24)
[2024-09-09] MEDS: HYDROmorphone 0.5 MG/0.5 ML SYRINGE IVP PRN (17:25)
[2024-09-09] MEDS: IPRATROPIUM-ALBUTEROL 3 ML NEB INHALATION STA (17:26)
[2024-09-09] MEDS: FUROSEMIDE 10 MG/ML 4 ML VIAL IV STA (17:27)
[2024-09-09] MEDS: BUDESONIDE 1 MG/2 ML NEBU INHALATION STA (17:54)
[2024-09-09] MEDS: SODIUM CHLORIDE 0.9% 1,000 ML IV SCH (18:00)
[2024-09-09 18:13] LABS: Glucose,Whole Blood 120 mg/dL (70-110)
[2024-09-09] MEDS: HYDROmorphone 1 MG/ML 1 ML SYRINGE IVP PRN (18:49)
[2024-09-09] MEDS: FUROSEMIDE 10 MG/ML 2 ML VIAL IV STA (18:52)
--- NOTE | 2024-09-09 19:07 | XR ---
EXAMINATION TYPE: XR chest 1V portable DATE OF EXAM: 09/09/2024 CLINICAL HISTORY: Increased oxygen needs, recent thoracic spine surgery TECHNIQUE: Single frontal view of the chest is obtained. COMPARISON: Chest x-ray and CT July 27, 2023 FINDINGS: There is no suspicious new focal air space opacity, pleural effusion, or pneumothorax seen . Underlying emphysematous change is redemonstrated The cardiac silhouette size is within normal limi ts. Surgical change of the thoracolumbar spine is partially imaged similar to prior. Surgical change to the cervical spine is partially imaged. There is extension of superior surgical change to the mid thoracic spine on current study noted. IMPRESSION: Chronic emphysematous change without new Suspicious acute pulmonary process. [facility], , 09/09/2024 7:05 PM
[2024-09-09] MEDS: ACETAMINOPHEN TAB 325 MG TAB PO SCH (19:47)
[2024-09-09] MEDS ORDERED: NON FORMULARY DRUG (Brivaracetam [Briviact] 100 MG Tablet) PO SCH (21:00)
[2024-09-09] MEDS: SYMBICORT 80-4.5 MCG INHALER INHALATION SCH (21:14)
[2024-09-09] MEDS: ALBUTEROL NEBULIZED 2.5 MG/3 ML INHALATION PRN (21:36)
[2024-09-09] MEDS: CLOBAZAM 10 MG PO SCH (21:50)
[2024-09-09] MEDS ORDERED: NON FORMULARY DRUG (Gabapentin [Gabapentin] 800 MG Tablet) PO SCH (22:00)
[2024-09-09] MEDS: PANTOPRAZOLE 40 MG TABLET PO SCH (22:10)
[2024-09-09] MEDS: busPIRone HCl 5 MG TAB PO SCH (23:41)
[2024-09-09] MEDS: GABAPENTIN 400 MG CAP PO SCH (23:41)
[2024-09-09] MEDS: CYCLOBENZAPRINE 5 MG TAB PO SCH (23:42)
[2024-09-09] MEDS: KETOROLAC 15 MG/ML 1 ML VIAL IVP SCH (23:47)
[2024-09-10] MEDS: HYDROcodone/APAP 10-325MG 1 EACH TAB PO PRN (00:21)
[2024-09-10 05:18] LABS: Basophils % (A) 0 %; Eosinophils # (A) 0.2 k/uL (0-0.7); Eosinophils % (A) 1 %; HCT 34.3 % (34.0-46.0); Lymphocytes # (A) 1.2 k/uL (1.0-4.8); Lymphocytes % (A) 9 %; MCH 33.7 pg (25.0-35.0); MCHC 32.1 g/dL (31.0-37.0); MCV 104.7 fL (80.0-100.0); Macrocytosis Slight; Mean Platelet Volume 7.2; Monocytes # (A) 0.7 k/uL (0-1.0); Monocytes % (A) 5 %; Neutrophils # (A) 11.2 k/uL (1.3-7.7); Neutrophils % (A) 83 %; Platelet Count 322 k/uL (150-450); RBC 3.28 m/uL (3.80-5.40); RDW 13.7 % (11.5-15.5); WBC 13.4 k/uL (3.8-10.6)
[2024-09-10 05:35] LABS: African American GFR (CKD) >90 (>60 ml/min/1.73 sqM); Anion Gap 5 mmol/L; Blood Urea Nitrogen 9 mg/dL (7-17); Calcium 7.9 mg/dL (8.4-10.2); Carbon Dioxide 26 mmol/L (22-30); Chloride 103 mmol/L (98-107); Glucose 81 mg/dL (74-99); Magnesium 1.6 mg/dL (1.6-2.3); Non-African American GFR(CKD) >90 (>60 ml/min/1.73 sqM); Potassium 3.8 mmol/L (3.5-5.1); Sodium 134 mmol/L (137-145)
[2024-09-10] MEDS ORDERED: Potassium Replacement Protocol 1 EACH MISC MISCELLANE PRN (05:42)
[2024-09-10] MEDS: POTASSIUM CHLORIDE ER 20 MEQ TAB.ER PO SCH (05:57)
[2024-09-10] MEDS: LEVOTHYROXINE 88 MCG TAB PO SCH (05:57)
[2024-09-10 06:51] LABS: Glucose,Whole Blood 97 mg/dL (70-110)
--- NOTE | 2024-09-10 07:13 | XR ---
EXAMINATION TYPE: XR chest 1V portable DATE OF EXAM: 09/10/2024 CLINICAL HISTORY: Difficulty breathing progress study. TECHNIQUE: Single AP portable upright view of the chest is obtained. COMPARISON: Chest x-ray from one day earlier FINDINGS: There is no suspicious new focal air space opacity, pleural effusion, or pneumothorax seen . Underlying emphysematous change is redemonstrated. The cardiac silhouette size is stable and within normal limits. Surgical change of the thoracolumbar spine is partially imaged similar to prior. Surg ical change to the cervical spine is partially imaged and extending to the mid thoracic spine similar to prior. IMPRESSION: Chronic emphysematous change without acute pulmonary process. No Significant change from one day earlier. [facility], , 09/10/2024 7:10 AM
[2024-09-10] MEDS: IPRATROPIUM 0.5 MG/2.5 ML NEBU INHALATION SCH (07:43)
--- NOTE | 2024-09-10 07:45 | P.PN ---
Progress Note - Text Progress Note Date: 09/10/24 CT reviewed post op. Hardware in good position. Improved post operative alignment. Screws in safe positions. No complicating process seen.
--- NOTE | 2024-09-10 07:47 | FL ---
EXAMINATION TYPE: FL guidance operating room, XR thoracic spine 1V DATE OF EXAM: 09/09/2024 CLINICAL HISTORY: PLDF. Back pain. TECHNIQUE: Fluoroscopy. Intraoperative 2 views of the thoracic spine. COMPARISON: Prior CT May 12, 2024. FINDINGS: Fluoroscopic guidance was provided during intraoperative supine surgical procedure perform ed by Dr. Mchugh. A total of 72 seconds of fluoroscopic time was utilized during the procedure a nd 5 spot intraoperative images are acquired. Intraoperative images acquired show extension of surgical hardware from posterior approach into the m id thoracic spine with new mid thoracic vertebroplasty. TOTAL DLP = 903.97 cGy x cm2 IMPRESSION: As Above. [facility], Workstation: [employer], 09/10/2024 7:45 AM
--- NOTE | 2024-09-10 08:27 | CT ---
EXAMINATION TYPE: CT cervical spine wo con, CT thoracic spine wo con DATE OF EXAM: 09/10/2024 COMPARISON: Prior CT cervical and thoracic spine May 12, 2024. HISTORY: s/p revision T2-T7 decompr fusion Automated Exposure Control for Dose Reduction was Utilized. TECHNIQUE: CT scan of the cervical and thoracic spine are obtained without contrast, axial images ar e obtained, sagittal and coronal reformatted images are also reviewed. FINDINGS:. Redemonstration of anterior fusion plate with metallic disc material at the C3-C6 levels. Posterior rods and screws are now identified in the bilateral C2 level extending to the T7 level. Zeny tebroplasty is present involving the T3, T6, and T7 vertebra on current study. Mild to moderate chron ic compression type fracture at C7 level is redemonstrated. Alignment is stable in the cervical spine . Review of axial images shows redemonstrated multilevel posterior decompression changes. There is new ill-defined fluid and air in the posterior soft tissue. There is new posterior percutaneous surgical drain terminating at left lateral C3 level. Overlying vertical oriented skin garland are noted. There is new metallic disc material at T2-T3 level. There is persistent surgical changes and vertebro plasty beginning at the T11 vertebra. This extends into the lumbar spine out of field of view. Persis tent severe compression fracture L1 vertebra is noted. Alignment in the thoracic spine is stable and satisfactory. Ill-defined fluid and air in the posterior soft tissues are noted. Visualized lungs dee w some emphysematous change without pneumothorax. Axial images show posterior decompression changes i n the upper thoracic spine. Hardware position is grossly satisfactory. Anterior medial apical bleb re demonstrated axial image 23. IMPRESSION: There is extensive surgical change to the cervical thoracic spine with stable and satisfa ctory alignment. [facility], , 09/10/2024 8:25 AM
[2024-09-10] MEDS: FUROSEMIDE 20 MG TAB PO SCH (08:28)
[2024-09-10] MEDS: FLUTICASONE NASAL 50MCG/SPRAY 16GM BTL EA NOSTRIL SCH (08:28)
[2024-09-10] MEDS: SERTRALINE 100 MG TAB PO SCH (08:29)
[2024-09-10] MEDS: SENNOSIDES-DOCUSATE SODIUM 1 EACH TAB PO SCH (08:29)
[2024-09-10] MEDS: LORATADINE 10 MG TAB PO SCH (08:29)
[2024-09-10] MEDS: TOPIRAMATE 25 MG TAB PO SCH (08:29)
[2024-09-10] MEDS: ONDANSETRON 4 MG/2 ML VIAL IVP PRN (10:35)
--- NOTE | 2024-09-10 11:02 | P.CONS ---
History of Present Illness - History of Present Illness Patient is admitted for C2-T2 decompression and fusion surgery patient is extuba wilbert patient is requiring continuous of oxygen at this time probably will need BiPAP patient has history of COPD has not been taking deep breaths patient is quite a bit drowsy pain is well-controlled. REVIEW OF SYSTEMS: All other systems are negative except those mentioned in the HPI PHYSICAL EXAMINATION: GENERAL: The patient is drowsy and oriented x3, not in any acute distress. Well developed, well nourished. HEENT: Pupils are round and equally reacting to light. EOMI. No scleral icterus. No conjunctival pallor. Normocephalic, atraumatic. No pharyngeal erythema. No thyromegaly. CARDIOVASCULAR: S1 and S2 present. No murmurs, rubs, or gallops. PULMONARY: Chest is clear to auscultation, no wheezing or crackles. ABDOMEN: Soft, nontender, nondistended, normoactive bowel sounds. No palpable organomegaly. MUSCULOSKELETAL: No joint swelling or deformity. EXTREMITIES: No cyanosis, clubbing, or pedal edema. NEUROLOGICAL: Gross neurological examination did not reveal any focal deficits. SKIN: No rashes. Assessment and plan -Cervical and thoracic degenerative disc disease and status post decompression and fusion surgery: Patient will be continued on present pain medications avoid opiates and benzodiazepines because of her drowsiness unable to take deep breaths. Patient on Toradol which we will continue -Acute hypoxic respiratory failure requiring 16 L of oxygen secondary to emphysema along with drowsiness:And patient not taking deep breaths. He is expected to improve -COPD without any acute exacerbation -History of DVT in the past presently not on any anticoagulation -Fibromyalgia -Hyperlipidemia -Hypertension -Seizure disorder -Hypothyroidism Peripheral mention chronic medical problems patient will be resumed and continued on appropriate home medications Past Medical History Past Medical History: Asthma, Heart Failure, COPD, Deep Vein Thrombosis (DVT), Eye Disorder, Fibromyalgia, GERD/Reflux, Hearing Disorder / Deafness, Hyperlipidemia, Hypertension, Memory Impairment, Myocardial Infarction (PR), Osteoarthritis (OA), Pneumonia, Respiratory Disorder, Seizure Disorder, Skin Disorder, Syncope, Thyroid Disorder Additional Past Medical History / Comment(s): IBS, colitis, restless legs flexed syndrome, daily migraines, Vitamin D deficiency, benign left breast mass, gastritis, short term & halfway memory loss. Vision - "sees an orange aura." BILAT CATARACTS & glaucoma. [place]- no hearing aids. Last seizure "couple weeks ago". "Legs are weak and balance is off." emphysema; DVT "few yrs back" Last Myocardial Infarction Date:: 2011 History of Any Multi-Drug Resistant Organisms: None Reported Past Surgical History: Appendectomy, Back Surgery, Hysterectomy, Orthopedic Surgery Additional Past Surgical History / Comment(s): D&C, bilateral knee arthroscopy, neck surg x2, rods & screws in back and neck. Past Anesthesia/Blood Transfusion Reactions: No Reported Reaction, Family History of Problems w/ Anesthesia Additional Past Anesthesia/Blood Transfusion Reaction / Comm: severe anxiety & emotional coming out of anesthesia, no hx blood transfusion; mom with anxiety after anesthesia Smoking Status: Current every day smoker - Past Family History Father Family Medical History: Cancer Additional Family Medical History / Comment(s): Father of pancreatic cancer at the age of 62yrs. and lung cancer Mother Family Medical History: Congestive Heart Failure (CHF) Additional Family Medical History / Comment(s): Mother of CHF at the age of 60yrs. Brother(s) Additional Family Medical History / Comment(s): Patient had 1 brother that at 5 months of age. Sister(s) Family Medical History: Deep Vein Thrombosis (DVT) Additional Family Medical History / Comment(s): Patient has one sister with history of depression and bipolar. Patient has 2 half-sisters and one at age 26 from overdose. Patient does not have any children. Medications and Allergies Home Medications Medication Instructions Recorded Confirmed Type Asenapine Maleate [Saphris] 10 mg SUBLINGUAL BID 04/30/17 09/05/24 History Sertraline [Zoloft] 200 mg PO QAM 04/30/17 09/05/24 History Pantoprazole Sodium [Protonix] 40 mg PO BID 01/07/19 09/05/24 History Gabapentin 800 mg PO TID 04/15/21 09/05/24 History Topiramate [Trokendi Xr] 100 mg PO QAM 04/15/21 09/05/24 History busPIRone HCl [Buspar] 15 mg PO TID 04/15/21 09/05/24 History cloBAZam [Sympazan] 10 mg PO BID 04/15/21 09/05/24 History hydrOXYzine pamoate [Vistaril] 50 mg PO TID 04/16/21 09/05/24 History Albuterol Sulfate [Proair Hfa] 2 puff INHALATION RT-QID PRN 05/10/21 09/05/24 History Prazosin HCl [Minipress] 2 mg PO BID@1700,2100 05/10/21 09/05/24 History rOPINIRole HCL [Requip] 3 mg PO BID 05/10/21 09/05/24 History Fluticasone/Umeclidin/Vilanter 1 puff INHALATION RT-DAILY 12/10/22 09/05/24 History [Trelegy Ellipta 100-62.5-25] Sennosides [Senokot] 17.2 mg PO DAILY 12/10/22 09/05/24 History Brivaracetam [Briviact] 100 mg PO BID 07/10/23 09/05/24 History Magnesium Oxide [Mag-Ox] 400 mg PO DAILY 07/10/23 09/05/24 History Budesonide [Pulmicort] 0.5 mg INHALATION RT-BID 07/27/23 09/05/24 History Butalb/Acetaminophen/Caffeine 1 tab PO QID 07/27/23 09/05/24 History [Fioricet 50325-40] Cetirizine HCl [Zyrtec] 10 mg PO DAILY 07/27/23 09/05/24 History Cyclobenzaprine [Flexeril] 5 mg PO TID 07/27/23 09/05/24 History Fluticasone [place] [Flonase 1 spray EA NOSTRIL DAILY 07/27/23 09/05/24 History Nas[place]] Furosemide [Lasix] 60 mg PO DAILY 07/27/23 09/05/24 History Ipratropium-Albuterol Nebulize 3 ml INHALATION BID 07/27/23 09/05/24 History [Duoneb 0.5 mg-3 mg/3 ml Soln] Levothyroxine Sodium [Synthroid] 88 mcg PO DAILY 07/27/23 09/05/24 History Propranolol [Inderal] 20 mg PO BID 07/27/23 09/05/24 History Diclofenac Sodium Gel [Voltaren 1% 100 gm TOPICAL BID 30 Days #1 each 10/19/23 09/05/24 Rx Gel] Acetaminophen-Codeine 300-30mg 1 tab PO TID PRN 09/05/24 09/05/24 History [Tylenol w/codeine #3] Ibuprofen [Motrin] 800 mg PO TID 09/05/24 09/05/24 History Allergies Allergy/AdvReac Type Severity Reaction Status Date / Time bee venom protein (honey bee) Allergy Anaphylaxis Verified 09/09/24 09:10 Physical Exam Vitals: Vital Signs Temp Pulse Pulse Resp BP BP BP 09/10/24 10:00 103 H 21 115/72 09/10/24 09:00 87 16 109/65 09/10/24 08:00 97.5 F L 89 10 L 97/62 09/10/24 07:55 88 09/10/24 07:44 92 09/10/24 07:00 91 10 L 97/61 09/10/24 06:00 96 14 09/10/24 05:00 91 15 09/10/24 04:37 09/10/24 04:00 97.5 F L 89 9 L 09/10/24 03:00 92 8 L 09/10/24 02:00 106 H 12 09/10/24 01:00 85 17 09/10/24 00:39 09/10/24 00:00 97.9 F 89 12 09/09/24 23:00 86 8 L 121/78 09/09/24 22:00 78 10 L 09/09/24 21:54 89 16 09/09/24 21:50 09/09/24 21:42 85 16 09/09/24 21:36 76 16 09/09/24 21:00 84 8 L 09/09/24 20:57 09/09/24 20:00 96.7 F L 83 9 L 09/09/24 19:00 75 10 L 112/80 09/09/24 18:50 81 10 L 112/80 09/09/24 18:40 90 14 100/68 09/09/24 18:30 90 10 L 100/68 09/09/24 18:20 96.5 F L 84 15 100/68 09/09/24 18:10 94 16 09/09/24 17:45 79 22 108/49 09/09/24 17:29 84 22 119/65 129/60 09/09/24 17:13 78 25 H 116/55 122/63 09/09/24 16:57 85 18 120/60 113/57 09/09/24 16:42 97.8 F 88 14 126/54 127/75 Pulse Ox FiO2 09/10/24 10:00 92 L 09/10/24 09:00 97 09/10/24 08:00 94 L 09/10/24 07:55 09/10/24 07:44 09/10/24 07:00 97 09/10/24 06:00 99 09/10/24 05:00 96 09/10/24 04:37 95 09/10/24 04:00 97 09/10/24 03:00 98 09/10/24 02:00 94 L 09/10/24 01:00 96 09/10/24 00:39 92 L 09/10/24 00:00 98 09/09/24 23:00 95 09/09/24 22:00 97 09/09/24 21:54 09/09/24 21:50 40 09/09/24 21:42 09/09/24 21:36 09/09/24 21:00 92 L 09/09/24 20:57 93 L 09/09/24 20:00 95 09/09/24 19:00 98 09/09/24 18:50 95 09/09/24 18:40 96 09/09/24 18:30 88 L 09/09/24 18:20 90 L 09/09/24 18:10 09/09/24 17:45 91 L 09/09/24 17:29 90 L 09/09/24 17:13 89 L 09/09/24 16:57 97 09/09/24 16:42 100 Intake and Output 09/09/24 09/10/24 09/10/24 22:59 06:59 14:59 Intake Total 762 624 234 Output Total 2470 465 160 Balance -1708 159 74 Intake: IV 662 624 234 0.9 sodium chloride 50 A line 12 24 9 Sodium Chloride 0.9% 1, 300 600 225 000 ml @ 75 mls/hr IV . [id number] [facility] Rx#:[id number] Intake, IV Titration 100 Amount Lactated Ringers 1,000 ml 100 @ 0 mls/hr IV .[facility] Rx#:[id number] Output: Urine 1970 465 160 Estimated Blood Loss 500 Other: Voiding Method Indwelling Catheter Indwelling Catheter Indwelling Catheter Weight 48.7 kg ABP, PAP, CO, CI - Last 8 Hours Arterial Blood Pressure 96/73 Arterial Blood Pressure 97/63 Arterial Blood Pressure 126/59 Arterial Blood Pressure 84/60 Arterial Blood Pressure 102/74 Results CBC & Chem 7: 09/10/24 05:00 09/10/24 05:00 Labs: Abnormal Lab Results - Last 24 Hours (Table) 09/09/24 09/10/24 09/10/24 Range/Units 18:12 05:00 05:00 WBC 13.4 H (3.8-10.6) k/uL RBC 3.28 L (3.80-5.40) m/uL Hgb 11.0 L (11.4-16.0) gm/dL MCV 104.7 H (80.0-100.0) fL Neutrophils # 11.2 H (1.3-7.7) k/uL Sodium 134 L (137-145) mmol/L POC Glucose (mg/dL) 120 H (70-110) mg/dL Calcium 7.9 L (8.4-10.2) mg/dL
[2024-09-10] MEDS: BUDESONIDE 0.5 MG/2 ML NEBU INHALATION SCH (11:35)
--- NOTE | 2024-09-10 12:17 | P.CNPUL ---
History of Present Illness Consult date: 09/10/24 Requesting physician: Leonel Mchugh Reason for consult: other Chief complaint: ICU management. History of present illness: Pulmonary consult dated September 10, 2024. This is a 54-year-old female who is seen today in room 261. The patient is postoperative day #1, status post T2-T7 decompression, with fusion. The patient was transferred to the intensive care unit, for further monitoring and management. She had surgery yesterday with Dr. Mchugh. Currently, she is resting comfortably in bed. When she first came to the intensive care unit, she was very lethargic and sleepy, and I placed her on BiPAP, with settings of 10/5, and 40%. She stayed on BiPAP till midnight. Currently, she is on 6 L nasal cannula. She still a bit sleepy. She is getting saline at 75 cc an hour. Current laboratory data includes a white count 13.4, hemoglobin 11, hematocrit 34.3, and a platelet count of 322,000. Sodium 134, potassium 3.8, chlorides 103, CO2 26, BUN 9, creatinine 0.6. Glucose was 97. Calcium 7.9. Magnesium was 1.6. The patient does have a cervical collar in place. Chest x-ray shows chronic emphysematous changes, without anything acute. The chest x-ray is unchanged compared to the x-ray done the day prior. Review of Systems REVIEW OF SYSTEMS: CONSTITUTIONAL: Somnolence, secondary to recent surgery. NEUROLOGIC: [ Negative.] HEENT: [ Negative.] CARDIAC: [Negative.] PULMONARY: [Negative.] GI: [Negative.] : [Negative.] RHEUMATOLOGIC: [ Negative.] IMMUNOLOGIC: [ Negative.] ENDOCRINE: [Negative. ] DERMATOLOGIC: [Negative.] Past Medical History Past Medical History: Asthma, Heart Failure, COPD, Deep Vein Thrombosis (DVT), Eye Disorder, Fibromyalgia, GERD/Reflux, Hearing Disorder / Deafness, Hyperlipidemia, Hypertension, Memory Impairment, Myocardial Infarction (VT), Osteoarthritis (OA), Pneumonia, Respiratory Disorder, Seizure Disorder, Skin Disorder, Syncope, Thyroid Disorder Additional Past Medical History / Comment(s): IBS, colitis, restless legs flexed syndrome, daily migraines, Vitamin D deficiency, benign left breast mass, gastritis, short term & manager intermediate memory loss. Vision - "sees an orange aura." BILAT CATARACTS & glaucoma. [place]- no hearing aids. Last seizure "couple weeks ago". "Legs are weak and balance is off." emphysema; DVT "few yrs back" Last Myocardial Infarction Date:: 2011 History of Any Multi-Drug Resistant Organisms: None Reported Past Surgical History: Appendectomy, Back Surgery, Hysterectomy, Orthopedic Surgery Additional Past Surgical History / Comment(s): D&C, bilateral knee arthroscopy, neck surg x2, rods & screws in back and neck. Past Anesthesia/Blood Transfusion Reactions: No Reported Reaction, Family History of Problems w/ Anesthesia Additional Past Anesthesia/Blood Transfusion Reaction / Comment(s): severe anxiety & emotional coming out of anesthesia, no hx blood transfusion; mom with anxiety after anesthesia Smoking Status: Current every day smoker - Past Family History Father Family Medical History: Cancer Additional Family Medical History / Comment(s): Father of pancreatic cancer at the age of 62yrs. and lung cancer Mother Family Medical History: Congestive Heart Failure (CHF) Additional Family Medical History / Comment(s): Mother of CHF at the age of 60yrs. Brother(s) Additional Family Medical History / Comment(s): Patient had 1 brother that at 5 months of age. Sister(s) Family Medical History: Deep Vein Thrombosis (DVT) Additional Family Medical History / Comment(s): Patient has one sister with history of depression and bipolar. Patient has 2 half-sisters and one at age 26 from overdose. Patient does not have any children. Medications and Allergies Home Medications Medication Instructions Recorded Confirmed Type Asenapine Maleate [Saphris] 10 mg SUBLINGUAL BID 04/30/17 09/05/24 History Sertraline [Zoloft] 200 mg PO QAM 04/30/17 09/05/24 History Pantoprazole Sodium [Protonix] 40 mg PO BID 01/07/19 09/05/24 History Gabapentin 800 mg PO TID 04/15/21 09/05/24 History Topiramate [Trokendi Xr] 100 mg PO QAM 04/15/21 09/05/24 History busPIRone HCl [Buspar] 15 mg PO TID 04/15/21 09/05/24 History cloBAZam [Sympazan] 10 mg PO BID 04/15/21 09/05/24 History hydrOXYzine pamoate [Vistaril] 50 mg PO TID 04/16/21 09/05/24 History Albuterol Sulfate [Proair Hfa] 2 puff INHALATION RT-QID PRN 05/10/21 09/05/24 History Prazosin HCl [Minipress] 2 mg PO BID@1700,2100 05/10/21 09/05/24 History rOPINIRole HCL [Requip] 3 mg PO BID 05/10/21 09/05/24 History Fluticasone/Umeclidin/Vilanter 1 puff INHALATION RT-DAILY 12/10/22 09/05/24 History [Trelegy Ellipta 100-62.5-25] Sennosides [Senokot] 17.2 mg PO DAILY 12/10/22 09/05/24 History Brivaracetam [Briviact] 100 mg PO BID 07/10/23 09/05/24 History Magnesium Oxide [Mag-Ox] 400 mg PO DAILY 07/10/23 09/05/24 History Budesonide [Pulmicort] 0.5 mg INHALATION RT-BID 07/27/23 09/05/24 History Butalb/Acetaminophen/Caffeine 1 tab PO QID 07/27/23 09/05/24 History [Fioricet 50325-40] Cetirizine HCl [Zyrtec] 10 mg PO DAILY 07/27/23 09/05/24 History Cyclobenzaprine [Flexeril] 5 mg PO TID 07/27/23 09/05/24 History Fluticasone Nasal [place] [Flonase 1 spray EA NOSTRIL DAILY 07/27/23 09/05/24 History Nasal [place]] Furosemide [Lasix] 60 mg PO DAILY 07/27/23 09/05/24 History Ipratropium-Albuterol Nebulize 3 ml INHALATION BID 07/27/23 09/05/24 History [Duoneb 0.5 mg-3 mg/3 ml Soln] Levothyroxine Sodium [Synthroid] 88 mcg PO DAILY 07/27/23 09/05/24 History Propranolol [Inderal] 20 mg PO BID 07/27/23 09/05/24 History Diclofenac Sodium Gel [Voltaren 1% 100 gm TOPICAL BID 30 Days #1 each 10/19/23 09/05/24 Rx Gel] Acetaminophen-Codeine 300-30mg 1 tab PO TID PRN 09/05/24 09/05/24 History [Tylenol w/codeine #3] Ibuprofen [Motrin] 800 mg PO TID 09/05/24 09/05/24 History Allergies Allergy/AdvReac Type Severity Reaction Status Date / Time bee venom protein (honey bee) Allergy Anaphylaxis Verified 09/09/24 09:10 Physical Exam Osteopathic Statement: *. No significant issues noted on an osteopathic structural exam other than those noted in the History and Physical/Consult. Vitals: Vital Signs Temp Pulse Pulse Resp BP BP BP 09/10/24 11:38 84 09/10/24 11:30 81 09/10/24 11:00 87 25 H 87/73 09/10/24 10:00 103 H 21 115/72 09/10/24 09:00 87 16 109/65 09/10/24 08:00 97.5 F L 89 10 L 97/62 09/10/24 07:55 88 09/10/24 07:44 92 09/10/24 07:00 91 10 L 97/61 09/10/24 06:00 96 14 09/10/24 05:00 91 15 09/10/24 04:37 09/10/24 04:00 97.5 F L 89 9 L 09/10/24 03:00 92 8 L 09/10/24 02:00 106 H 12 09/10/24 01:00 85 17 09/10/24 00:39 09/10/24 00:00 97.9 F 89 12 09/09/24 23:00 86 8 L 121/78 09/09/24 22:00 78 10 L 09/09/24 21:54 89 16 09/09/24 21:50 09/09/24 21:42 85 16 09/09/24 21:36 76 16 09/09/24 21:00 84 8 L 09/09/24 20:57 09/09/24 20:00 96.7 F L 83 9 L 09/09/24 19:00 75 10 L 112/80 09/09/24 18:50 81 10 L 112/80 09/09/24 18:40 90 14 100/68 09/09/24 18:30 90 10 L 100/68 09/09/24 18:20 96.5 F L 84 15 100/68 09/09/24 18:10 94 16 09/09/24 17:45 79 22 108/49 09/09/24 17:29 84 22 119/65 129/60 09/09/24 17:13 78 25 H 116/55 122/63 09/09/24 16:57 85 18 120/60 113/57 09/09/24 16:42 97.8 F 88 14 126/54 127/75 Pulse Ox FiO2 09/10/24 11:38 09/10/24 11:30 09/10/24 11:00 90 L 09/10/24 10:00 92 L 09/10/24 09:00 97 09/10/24 08:00 94 L 09/10/24 07:55 09/10/24 07:44 09/10/24 07:00 97 09/10/24 06:00 99 09/10/24 05:00 96 09/10/24 04:37 95 09/10/24 04:00 97 09/10/24 03:00 98 09/10/24 02:00 94 L 09/10/24 01:00 96 09/10/24 00:39 92 L 09/10/24 00:00 98 09/09/24 23:00 95 09/09/24 22:00 97 09/09/24 21:54 09/09/24 21:50 40 09/09/24 21:42 09/09/24 21:36 09/09/24 21:00 92 L 09/09/24 20:57 93 L 09/09/24 20:00 95 09/09/24 19:00 98 09/09/24 18:50 95 09/09/24 18:40 96 09/09/24 18:30 88 L 09/09/24 18:20 90 L 09/09/24 18:10 09/09/24 17:45 91 L 09/09/24 17:29 90 L 09/09/24 17:13 89 L 09/09/24 16:57 97 09/09/24 16:42 100 Intake and Output 09/09/24 09/10/24 09/10/24 22:59 06:59 14:59 Intake Total 762 624 234 Output Total 0000 465 160 Balance -1708 159 74 Intake: IV 662 624 234 0.9 sodium chloride 50 A line 12 24 9 Sodium Chloride 0.9% 1, 300 600 225 000 ml @ 75 mls/hr IV . [id number] [facility] Rx#:[id number] Intake, IV Titration 100 Amount Lactated Ringers 1,000 ml 100 @ 0 mls/hr IV .[facility] Rx#:[id number] Output: Urine 1970 465 160 Estimated Blood Loss 500 Other: Voiding Method Indwelling Catheter Indwelling Catheter Indwelling Catheter Weight 48.7 kg ABP, PAP, CO, CI - Last 8 Hours Arterial Blood Pressure 82/66 Arterial Blood Pressure 96/73 Arterial Blood Pressure 97/63 Arterial Blood Pressure 126/59 No acute distress, somnolent/lethargic, but does arouse. Currently on 6 L. HEENT examination is grossly unremarkable. Mucous membranes are moist. No oral lesions. Neck supple. Full range of motion. No adenopathy thyromegaly or neck vein distention. Cervical collar in place. Cardiovascular examination reveals regular rhythm rate. S1-S2 normal. No S3 or S4. No discernible murmur noted. Lungs reveal clear breath sounds. Breath sounds are equal bilaterally. No adventitious lung sounds including wheezes rhonchi or crackles. Abdomen soft bowel sounds are heard. No masses or tenderness. Extremities are intact. No cyanosis clubbing or edema. Skin is without rash or lesion. Neurologic examination is brief but nonfocal. Results - Laboratory Findings CBC and BMP: 09/10/24 05:00 09/10/24 05:00 Abnormal lab findings: Abnormal Labs 09/09/24 09/10/24 09/10/24 18:12 05:00 05:00 WBC 13.4 H RBC 3.28 L Hgb 11.0 L MCV 104.7 H Neutrophils # 11.2 H Sodium 134 L POC Glucose (mg/dL) 120 H Calcium 7.9 L - Diagnostic Findings Chest x-ray: image reviewed Assessment and Plan Assessment: Postoperative day #1, status post T2-T7 decompression with fusion. History of COPD. History of CAD with previous myocardial infarction. History of hypertension. History of hyperlipidemia. History of congestive heart failure. History of gastroesophageal reflux disease. History of seizure disorder. History of hypothyroidism. History of irritable bowel syndrome. History of anxiety/depression/PTSD. Plan: Plan dated September 10, 2024. The patient is seen today in the intensive care unit, room 261. She continues on O2 at 6 L. She is getting saline at 75 cc an hour. The patient was on BiPAP, with settings of 10/5 and 40%, told midnight. When she first came back from the operating room, she was quite lethargic and sleepy. Labs, x-rays, and all medications are reviewed. I encouraged her to use the incentive spirometer, every hour while awake. We will continue to follow the patient, make recommendations. Later today, if okay with orthopedic surgery, she could be tra nsferred out of the ICU. No active ICU issues at this time. Time with Patient: Greater than 30
[2024-09-10] MEDS: CLOBAZAM 10 MG PO SCH (13:10)
--- NOTE | 2024-09-10 13:18 | P.PN ---
Subjective Progress Note Date: 09/10/24 Principal diagnosis: 1. s/p C2-T2 decompression and fusion 2.s/p C3-C6 ACDF 3. 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 CERVICOTHORACIC DEFORMITY WITH PAIN Patient seen and examined this morning in ICU. Patient is resting comfortably in bed. She reports her pain is managed on current regimen. She does report generalized stiffnes of the cervical spine and upper extremities and shoulders. Discussed with patient utilizing ice packs on her shoulders and neck. Patient does state she notices improvement of the cervical pain since the procedure. Surgical incision to the posterior cervicothoracic spine, dressing is CDI with hemovac drain present. Enochs cervical collar is in place. Patient reports she is looking forward to working with physical therapy and toward her recovery. Michelle cath is present and patent. Encourage use of incentive spirometer. Patient may be transferred to medical floor (4S) when medically stable. Objective - Vital Signs Vital signs: Vital Signs Temp 97.5 F L 09/10/24 08:00 Pulse 103 H 09/10/24 10:00 Resp 21 09/10/24 10:00 BP 115/72 09/10/24 10:00 Pulse Ox 92 L 09/10/24 10:00 FiO2 40 09/09/24 21:50 Intake & Output 09/09/24 09/10/24 09/10/24 18:59 06:59 18:59 Intake Total 2452 986 234 Output Total 1825 1110 160 Balance 627 -124 74 Weight 54.4 kg 48.7 kg Intake: IV 2352 986 234 0.9 sodium chloride 50 A line 36 9 Sodium Chloride 0.9% 1, 900 225 000 ml @ 75 mls/hr IV . [id number] [facility] Rx#:[id number] Intake, IV Titration 100 Amount Lactated Ringers 1,000 ml 100 @ 0 mls/hr IV .[facility] Rx#:[id number] Output: Urine 1325 1110 160 Estimated Blood Loss 500 Other: Voiding Method Indwelling Catheter Indwelling Catheter Indwelling Catheter ABP, PAP, CO, CI - Last Documented Arterial Blood Pressure 96/73 - Exam Physical Examination General: The patient is awake and alert, in no acute distress Skin: Skin is warm and dry with no obvious rashes or lesions. Surgical incision to the posterior cervicothoracic spine, Dressing is CDI with Hemovac drain present. Eye: Pupils are equal, round and reactive to light, extra-ocular movements are intact; there is normal conjunctiva bilaterally. Neck: The neck is supple, there is moderate tenderness and limited ROM due to surgical procedure and Enochs collar intact. Cardiovascular: There is a regular rate and rhythm. No murmur, rub or gallop is appreciated. Respiratory: Respirations are non-labored, breath sounds are equal. Gastrointestinal: Soft, non-distended, non-tender abdomen. Back: There is no tenderness to palpation in the midline, paralumbar, parathoracic or buttocks region. There is no obvious deformity . Musculoskeletal: ROM limited secondary to pain and stiffness from surgical procedure. Right: Shoulder abduction 4/5, elbow flexors 4/5, wrist dorsiflexors 4/5. finger abductor 5/5, wire wrapper machine operator 5/5, hip flexor 5/5, knee flexor 5/5, ankle dorsiflexor 5/5, ankle plantarflexion 5/5 and extensor hallucis 5/5. Left: Shoulder abduction 4/5, elbow flexors 4/5, wrist dorsiflexors 4/5. finger abductor 5/5, wire wrapper machine operator 5/5, hip flexor 4-/5, knee flexor 4/5, ankle dorsiflexor 5/5, ankle plantarflexion 5/5 and extensor hallucis 5/5. Neurological: CN 2-12 intact. There are no obvious motor or sensory deficits. Movement and coordination equal and intact. Sensory exam to light touch intact C5-T1 and intact from L2-S1. Reflexes 2/4 in bilateral upper and lower extremities. Negative Hoffmans, babinski, and clonus signs. Psychiatric: Cooperative, appropriate mood & affect, normal judgment. - Labs CBC & Chem 7: 09/10/24 05:00 09/10/24 05:00 Labs: Abnormal Lab Results - Last 24 Hours (Table) 09/09/24 09/10/24 09/10/24 Range/Units 18:12 05:00 05:00 WBC 13.4 H (3.8-10.6) k/uL RBC 3.28 L (3.80-5.40) m/uL Hgb 11.0 L (11.4-16.0) gm/dL MCV 104.7 H (80.0-100.0) fL Neutrophils # 11.2 H (1.3-7.7) k/uL Sodium 134 L (137-145) mmol/L POC Glucose (mg/dL) 120 H (70-110) mg/dL Calcium 7.9 L (8.4-10.2) mg/dL Assessment and Plan Assessment: Post Op Day 1: Revision T2-T7 decompression and fusion with deformity correction Plan: -Appreciate residential solar consultant and team management. -Activity: Ambulate QID, OOB all meals, up and about, limit lifting bending twisting to less than 5 lbs. Use walker or cane if needed for stability. -Daily PT/OT, increase ambulation strength and balance. -Brace when up and about, not needed in bed or chair -Pain control: Adequate at this time -Meds: reviewed -GI ppx: senna, Miralax -DC michelle when up and about, bedside commode if needed -DVT PPX: Aspirin 81mg daily -Hygiene: Maintain incision clean and dry. May change dressing as needed, please document in notes if performed. -Drains: Maintain for now. Continue to monitor and record output q shift. -Encourage IS 10x/hr -Dispo: Clinically pending. *I reviewed and discussed this case with my attending Dr. Mchugh, whom has reviewed this chart and films and is in agreement with assessment and plan of care as outlined above. I have personally seen and examined the patient, performed the documentation and the assessment and plan as written. Number of minutes spent on the visit: [ ].
[2024-09-11] MEDS: HYDROmorphone 0.5 MG/0.5 ML SYRINGE IVP PRN (02:42)
[2024-09-11 05:14] LABS: Basophils % (A) 0 %; Eosinophils # (A) 0.2 k/uL (0-0.7); Eosinophils % (A) 2 %; HCT 31.6 % (34.0-46.0); HGB 10.3 gm/dL (11.4-16.0); Lymphocytes # (A) 1.3 k/uL (1.0-4.8); Lymphocytes % (A) 11 %; MCH 34.4 pg (25.0-35.0); MCHC 32.6 g/dL (31.0-37.0); MCV 105.7 fL (80.0-100.0); Macrocytosis Slight; Mean Platelet Volume 6.7; Monocytes # (A) 0.7 k/uL (0-1.0); Monocytes % (A) 6 %; Neutrophils % (A) 79 %; Platelet Count 283 k/uL (150-450); RBC 2.99 m/uL (3.80-5.40); RDW 13.1 % (11.5-15.5); WBC 11.3 k/uL (3.8-10.6)
[2024-09-11 05:25] LABS: African American GFR (CKD) >90 (>60 ml/min/1.73 sqM); Anion Gap 5 mmol/L; Blood Urea Nitrogen 7 mg/dL (7-17); Calcium 7.8 mg/dL (8.4-10.2); Carbon Dioxide 27 mmol/L (22-30); Chloride 99 mmol/L (98-107); Glucose 69 mg/dL (74-99); Magnesium 1.5 mg/dL (1.6-2.3); Non-African American GFR(CKD) >90 (>60 ml/min/1.73 sqM); Potassium 3.4 mmol/L (3.5-5.1); Sodium 131 mmol/L (137-145)
[2024-09-11 05:44] LABS: Glucose,Whole Blood 77 mg/dL (70-110)
[2024-09-11] MEDS: POTASSIUM CHLORIDE ER 20 MEQ TAB.ER PO SCH ×2 (05:47→15:22)
--- NOTE | 2024-09-11 06:58 | XR ---
EXAMINATION TYPE: XR chest 1V portable DATE OF EXAM: 09/11/2024 CLINICAL HISTORY: Difficulty breathing progress study. TECHNIQUE: Single AP portable semiupright view of the chest is obtained. COMPARISON: Chest x-ray from one day earlier and older studies FINDINGS: There is no suspicious new focal air space opacity, pleural effusion, or pneumothorax seen bilaterally. Underlying emphysematous change is redemonstrated. The cardiac silhouette size is stabl e and within normal limits. Surgical change of the thoracolumbar spine is partially imaged similar to prior. Surgical change to the cervical thoracic spine is partially imaged extending to the mid thor acic spine similar to prior. Old fractures of the posterior lateral left fourth through sixth ribs ar e redemonstrated. IMPRESSION: Chronic emphysematous change without acute pulmonary process. No significant change from one day earlier. [facility], , 09/11/2024 6:55 AM
[2024-09-11] MEDS: SAPHRIS 10 MG PO SCH (08:29)
[2024-09-11] MEDS: ASPIRIN 81 MG PO SCH (08:29)
[2024-09-11] MEDS: SENNOSIDES 8.6 MG TAB PO SCH (08:30)
[2024-09-11] MEDS ORDERED: SAPHRIS 10 MG PO SCH (09:00)
--- NOTE | 2024-09-11 10:20 | P.PN ---
Subjective Progress Note Date: 09/11/24 Principal diagnosis: 1. s/p C2-T2 decompression and fusion 2.s/p C3-C6 ACDF 3. 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 CERVICOTHORACIC DEFORMITY WITH PAIN Patient has been up and down throughout the night. She has been requesting to leave, AMA. Spoke with RN and she has been attempting to assist patient to chair at bedside and to educate patient on the importance of asking for assistance. RN states patient has been made aware of her hemovac drain from her cervicothoracic incision and patient continues to allow drain to move freely or she is sitting on drain as if she is not aware. Medicine has reordered patients behavioral medicine and RN is hoping to have patient called down to have her stay. Objective - Vital Signs Vital signs: Vital Signs Temp 98.2 F 09/11/24 08:00 Pulse 105 H 09/11/24 08:31 Resp 18 09/11/24 08:00 BP 132/80 09/11/24 08:00 Pulse Ox 93 L 09/11/24 08:00 FiO2 5 09/11/24 00:00 Intake & Output 09/10/24 09/11/24 09/11/24 18:59 06:59 18:59 Intake Total 858 936 150 Output Total 1330 1360 175 Balance -472 -424 -25 Weight 48.6 kg Intake: IV 858 936 150 A line 33 36 Sodium Chloride 0.9% 1, 825 900 150 000 ml @ 75 mls/hr IV . [id number] [facility] Rx#:[id number] Output: Drainage 120 75 Right Back 120 75 Urine 1210 1285 175 Other: Voiding Method Indwelling Catheter Indwelling Catheter ABP, PAP, CO, CI - Last Documented Arterial Blood Pressure 91/57 - Exam Physical Examination General: The patient is awake and alert, in no acute distress Skin: Skin is warm and dry with no obvious rashes or lesions. Surgical incision to the posterior cervicothoracic spine, Dressing to be changed today, Hemovac drain present. Eye: Pupils are equal, round and reactive to light, extra-ocular movements are intact; there is normal conjunctiva bilaterally. Neck: The neck is supple, there is moderate tenderness and limited ROM due to surgical procedure and Franklin collar intact. Cardiovascular: There is a regular rate and rhythm. No murmur, rub or gallop is appreciated. Respiratory: Respirations are non-labored, breath sounds are equal. Gastrointestinal: Soft, non-distended, non-tender abdomen. Back: There is no tenderness to palpation in the midline, paralumbar, parathoracic or buttocks region. There is no obvious deformity . Musculoskeletal: ROM limited secondary to pain and stiffness from surgical procedure. Right: Shoulder abduction 4/5, elbow flexors 4/5, wrist dorsiflexors 4/5. finger abductor 5/5, spare person 5/5, hip flexor 5/5, knee flexor 5/5, ankle dorsiflexor 5/5, ankle plantarflexion 5/5 and extensor hallucis 5/5. Left: Shoulder abduction 4/5, elbow flexors 4/5, wrist dorsiflexors 4/5. finger abductor 5/5, spare person 5/5, hip flexor 4-/5, knee flexor 4/5, ankle dorsiflexor 5/5, ankle plantarflexion 5/5 and extensor hallucis 5/5. Neurological: CN 2-12 intact. There are no obvious motor or sensory deficits. Movement and coordination equal and intact. Sensory exam to light touch intact C5-T1 and intact from L2-S1. Reflexes 2/4 in bilateral upper and lower extremities. Negative Hoffmans, babinski, and clonus signs. Psychiatric: Cooperative, appropriate mood & affect, normal judgment. - Labs CBC & Chem 7: 09/11/24 04:35 09/11/24 04:35 Labs: Abnormal Lab Results - Last 24 Hours (Table) 09/11/24 09/11/24 Range/Units 04:35 04:35 WBC 11.3 H (3.8-10.6) k/uL RBC 2.99 L (3.80-5.40) m/uL Hgb 10.3 L (11.4-16.0) gm/dL Hct 31.6 L (34.0-46.0) % MCV 105.7 H (80.0-100.0) fL Neutrophils # 9.0 H (1.3-7.7) k/uL Sodium 131 L (137-145) mmol/L Potassium 3.4 L (3.5-5.1) mmol/L Glucose 69 L (74-99) mg/dL Calcium 7.8 L (8.4-10.2) mg/dL Magnesium 1.5 L (1.6-2.3) mg/dL Assessment and Plan Assessment: Post Op Day 2: Revision T2-T7 decompression and fusion with deformity correction Plan: -Appreciate information resource consultant and team management. -Activity: Ambulate QID, OOB all meals, up and about, limit lifting bending twisting to less than 5 lbs. Use walker or cane if needed for stability. -Daily PT/OT, increase ambulation strength and balance. -Brace when up and about, not needed in bed or chair -Pain control: Adequate at this time -Meds: reviewed -GI ppx: senna, Miralax -DVT PPX: Aspirin 81mg daily -Hygiene: Maintain incision clean and dry. May change dressing as needed, please document in notes if performed. -Drains: Maintain for now. Continue to monitor and record output q shift, may discontinue drain if patient continues abrupt behavior. -Encourage IS 10x/hr -Dispo: Clinically pending.
[2024-09-11] MEDS ORDERED: ASENAPINE MALEATE 10 MG SUBLINGUAL SCH (11:00)
--- NOTE | 2024-09-11 11:03 | P.PN ---
Subjective Patient is admitted for C2-T2 decompression and fusion surgery patient is extubated patient is requiring continuous of oxygen at this time probably will need BiPAP patient has history of COPD has not been taking deep breaths patient is quite a bit drowsy pain is well-controlled. 09/11/2024 Patient has had psychosis episodes last night patient was resumed on her antipsychotics which will can be restarted if needed for anxiety. Patient hyponatremia worsened with IV fluids IV fluids will be discontinued patient may have SIADH from pain/antipsychotic medications patient will be started on fluid restriction 1800/day REVIEW OF SYSTEMS: All other systems are negative except those mentioned in the HPI PHYSICAL EXAMINATION: GENERAL: The patient is drowsy and oriented x3, not in any acute distress. Well developed, well nourished. HEENT: Pupils are round and equally reacting to light. EOMI. No scleral icterus. No conjunctival pallor. Normocephalic, atraumatic. No pharyngeal erythema. No thyromegaly. CARDIOVASCULAR: S1 and S2 present. No murmurs, rubs, or gallops. PULMONARY: Chest is clear to auscultation, no wheezing or crackles. ABDOMEN: Soft, nontender, nondistended, normoactive bowel sounds. No palpable organomegaly. MUSCULOSKELETAL: No joint swelling or deformity. EXTREMITIES: No cyanosis, clubbing, or pedal edema. NEUROLOGICAL: Gross neurological examination did not reveal any focal deficits. SKIN: No rashes. Assessment and plan -Cervical and thoracic degenerative disc disease and status post decompression and fusion surgery: Pain management as per primary service -Hyponatremia probably SIADH from pain IV fluids will be discontinued patient will be on fluid restriction -Acute hypoxic respiratory failure requiring secondary to emphysema along with drowsiness:And patient not taking deep breaths. This is improved and patient is presently on room air -COPD without any acute exacerbation -History of DVT in the past presently not on any anticoagulation -Fibromyalgia -Hyperlipidemia -Hypertension -Seizure disorder -Hypothyroidism Objective - Vital Signs Vital signs: Vital Signs Temp 98.2 F 09/11/24 08:00 Pulse 105 H 09/11/24 08:31 Resp 18 09/11/24 08:00 BP 132/80 09/11/24 08:00 Pulse Ox 93 L 09/11/24 08:00 FiO2 5 09/11/24 00:00 Intake & Output 09/10/24 09/11/24 09/11/24 18:59 06:59 18:59 Intake Total 858 936 150 Output Total 1330 1360 175 Balance -472 -424 -25 Weight 48.6 kg Intake: IV 858 936 150 A line 33 36 Sodium Chloride 0.9% 1, 825 900 150 000 ml @ 75 mls/hr IV . [id number] [facility] Rx#:[id number] Output: Drainage 120 75 Right Back 120 75 Urine 1210 1285 175 Other: Voiding Method Indwelling Catheter Indwelling Catheter ABP, PAP, CO, CI - Last Documented Arterial Blood Pressure 91/57 - Labs CBC & Chem 7: 09/11/24 04:35 09/11/24 04:35 Labs: Abnormal Lab Results - Last 24 Hours (Table) 09/11/24 09/11/24 Range/Units 04:35 04:35 WBC 11.3 H (3.8-10.6) k/uL RBC 2.99 L (3.80-5.40) m/uL Hgb 10.3 L (11.4-16.0) gm/dL Hct 31.6 L (34.0-46.0) % MCV 105.7 H (80.0-100.0) fL Neutrophils # 9.0 H (1.3-7.7) k/uL Sodium 131 L (137-145) mmol/L Potassium 3.4 L (3.5-5.1) mmol/L Glucose 69 L (74-99) mg/dL Calcium 7.8 L (8.4-10.2) mg/dL Magnesium 1.5 L (1.6-2.3) mg/dL
[2024-09-11] MEDS: hydrOXYzine pamoate 25 MG CAP PO SCH (11:17)
--- NOTE | 2024-09-11 11:49 | P.PN ---
Subjective Progress Note Date: 09/11/24 Principal diagnosis: ICU management. Pulmonary consult dated September 10, 2024. This is a 54-year-old female who is seen today in room 261. The patient is postoperative day #1, status post T2-T7 decompression, with fusion. The patient was transferred to the intensive care unit, for further monitoring and management. She had surgery yesterday with Dr. Mchugh. Currently, she is resting comfortably in bed. When she first came to the intensive care unit, she was very lethargic and sleepy, and I placed her on BiPAP, with settings of 10/5, and 40%. She stayed on BiPAP till midnight. Currently, she is on 6 L nasal cannula. She still a bit sleepy. She is getting saline at 75 cc an hour. Current laboratory data includes a white count 13.4, hemoglobin 11, hematocrit 34.3, and a platelet count of 322,000. Sodium 134, potassium 3.8, chlorides 103, CO2 26, BUN 9, creatinine 0.6. Glucose was 97. Calcium 7.9. Magnesium was 1.6. The patient does have a cervical collar in place. Chest x-ray shows chronic emphysematous changes, without anything acute. The chest x-ray is unchanged compared to the x-ray done the day prior. Progress note dated September 11, 2024. 54-year-old female postop day #2, status post thoracic surgery, resting comfortably in the intensive care unit, room 261. She is on room air. She is getting saline at 75 cc an hour. Many of her psychiatric medications are reordered today. The patient has no specific complaints. She is a bit ag itated, and I was informed about this, by the nurse. Current labs include white count 11.3, hemoglobin 10.3, hematocrit 31.6, and a normal platelet count. Sodium 131, potassium 3.4, chlorides 99, CO2 27, BUN 7, creatinine 0.6. Glucose 77. Calcium 7.8. Magnesium 1.5. Chest x-ray shows no acute pulmonary process. Objective - Vital Signs Vital signs: Vital Signs Temp 98.2 F 09/11/24 08:00 Pulse 105 H 09/11/24 08:31 Resp 18 09/11/24 08:00 BP 132/80 09/11/24 08:00 Pulse Ox 93 L 09/11/24 08:00 FiO2 5 09/11/24 00:00 Intake & Output 09/10/24 09/11/24 09/11/24 18:59 06:59 18:59 Intake Total 858 936 150 Output Total 1330 1360 275 Balance -472 -424 -125 Weight 48.6 kg Intake: IV 858 936 150 A line 33 36 Sodium Chloride 0.9% 1, 825 900 150 000 ml @ 75 mls/hr IV . [id number] [facility] Rx#:[id number] Output: Drainage 120 75 100 Right Back 120 75 100 Urine 1210 1285 175 Other: Voiding Method Indwelling Catheter Indwelling Catheter Indwelling Catheter ABP, PAP, CO, CI - Last Documented Arterial Blood Pressure 91/57 - Exam No acute distress, awake and alert. Currently on room air. HEENT examination is grossly unremarkable. Mucous membranes are moist. No oral lesions. Neck supple. Full range of motion. No adenopathy thyromegaly or neck vein distention. Cervical collar in place. Cardiovascular examination reveals regular rhythm rate. S1-S2 normal. No S3 or S4. No discernible murmur noted. Lungs reveal clear breath sounds. Breath sounds are equal bilaterally. No adventitious lung sounds including wheezes rhonchi or crackles. Abdomen soft bowel sounds are heard. No masses or tenderness. Extremities are intact. No cyanosis clubbing or edema. Skin is without rash or lesion. Neurologic examination is brief but nonfocal. - Labs CBC & Chem 7: 09/11/24 04:35 09/11/24 04:35 Labs: Abnormal Lab Results - Last 24 Hours (Table) 09/11/24 09/11/24 Range/Units 04:35 04:35 WBC 11.3 H (3.8-10.6) k/uL RBC 2.99 L (3.80-5.40) m/uL Hgb 10.3 L (11.4-16.0) gm/dL Hct 31.6 L (34.0-46.0) % MCV 105.7 H (80.0-100.0) fL Neutrophils # 9.0 H (1.3-7.7) k/uL Sodium 131 L (137-145) mmol/L Potassium 3.4 L (3.5-5.1) mmol/L Glucose 69 L (74-99) mg/dL Calcium 7.8 L (8.4-10.2) mg/dL Magnesium 1.5 L (1.6-2.3) mg/dL Assessment and Plan Assessment: Postoperative day #2, status post T2-T7 decompression with fusion. History of COPD. History of CAD with previous myocardial infarction. History of hypertension. History of hyperlipidemia. History of congestive heart failure. History of gastroesophageal reflux disease. History of seizure disorder. History of hypothyroidism. History of irritable bowel syndrome. History of anxiety/depression/PTSD. Plan: Plan dated September 10, 2024. The patient is seen today in the intensive care unit, room 261. She continues on O2 at 6 L. She is getting saline at 75 cc an hour. The patient was on BiPAP, with settings of 10/5 and 40%, told midnight. When she first came back from the operating room, she was quite lethargic and sleepy. Labs, x-rays, and all medications are reviewed. I encouraged her to use the incentive spirometer, every hour while awake. We will continue to follow the patient, make recommen dations. Later today, if okay with orthopedic surgery, she could be transferred out of the ICU. No active ICU issues at this time. Plan dated September 11, 2024. The patient is seen again in room 261. She is currently on room air. The patient is getting saline at 75 cc an hour. Today is postop day #2. According to the nurse, she has been agitated. Her psychiatric medications have been reordered, and given to her. Labs, x-rays, and medications are reviewed. We will continue to follow make recommendations along the way. Prognosis is guarded. Hopefully, the patient can move out of the intensive care unit, later today. Time with Patient: Less than 30
[2024-09-11] MEDS ORDERED: Potassium Replacement Protocol 1 EACH MISC MISCELLANE PRN (12:20)
--- NOTE | 2024-09-11 14:47 | P.OP ---
Date of Procedure: 09/09/24 Preoperative Diagnosis: 1. T2 VERTEBRAL BODY FRACTURE WITH DISTAL JUNCTIONAL FAILURE OF C2-T2 DECOMPRESSION AND FUSION 2. 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 THORACIC MYLEOPATHY 4. NECK AND BACK PAIN 5. UE AND LE WEAKNESS 6. COMPLEX MEDICAL PATIENT Postoperative Diagnosis: 1. T2 VERTEBRAL BODY FRACTURE WITH DISTAL JUNCTIONAL FAILURE OF C2-T2 DECOMPRESSION AND FUSION 2. 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 THORACIC MYLEOPATHY 4. NECK AND BACK PAIN 5. UE AND LE WEAKNESS 6. COMPLEX MEDICAL PATIENT Procedure(s) Performed: 1. OPEN TREATMENT T2 VERTEBRAL BODY FRACTURE 2. T2/3 3 COLUMN OSTEOTOMY FOR DEFORMITY CORRECTION 3. T2-3 POSTEROLATERAL AND INTERBODY FUSION 4. REVISION C2-T7 POSTEROLATERAL INSTRUMENTED FUSION 5. C2-T7 SEGMENTAL INSTRUMENTATION 6. T1-T4 BILATERAL LAMINECTOMY, COMPLETE FACETECTOMY AND FORAMINOTOMY FOR DECOMRESSPIN OF NEURAL ELEMENTS, DEFORMITY CORRECTION AND CAGE PLACEMENT 7. INSERTION OF BIOMECHANICAL DEVICE T2-3, CAGEx1 8. USE OF Affirm NAVIGATION FOR THE ASSISTANCE IN ACCURATE SCREW PLACEMENT 9. VERTEBRAL BODY AUGMENTATION T3, T6 AND T7 WITH BONE CEMENT USE OF IONM Implants: ELVIN EVEREST/ONTARIO, RODS AND SCREWS TRANSITIONAL CHARLENE 4.0-6.0+ CHARLENE -GLOBUS SABLE CAGE 7-14, 15 DEG, 8MM -CONTOUR, AUTOGRAFT, DBM FIBER/BOATS -ELVIN BONE CEMENT Anesthesia: GETA Surgeon: Leonel Mchugh Sales Clerk Supervisor #1: Magnolia Mosquera (was presnt and assisted from screw placement to dressing placement) Sales Clerk Supervisor #2: Win Wiseman (was present and assisted from positioniong to screw placement) Estimated Blood Loss (ml): 500 IV fluids (ml): 2,200 Urine output (ml): 600 Pathology: none sent Condition: stable Disposition: PACU Indications for Procedure: Ms. Weinstein is presenting for evaluation of mid and low back pain. It was my pleasure to have seen and examined Ms. Weinstein. In our visit today we have had a chance to go over subjective complaints, physical examination findings and treatments including the natural course history without intervention and various interventional options. 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 CT scanfromof CervicalSpine at [facility] on 07/14/2023: - Re-reviewed with the patient today. This is reviewed and again demonstrates cervical spondylosis throughout the cervical spine with cervical kyphosis. 10-12 noted in the supine film. Again spondylolisthesis is noted C3-C4 and C4-C5. No acute fractures are noted. Stenosis is variable foraminal and central throughout the cervical spine. Occipital cervical C1 2 joints are stable. MRI scanfrom 2of Cervical Spine completed at [facility]: - Re-reviewed with the patient today. It was reviewed and again demonstrate similar findings with spondylolisthesis and spondylosis along with kyphosis of the cervical spine. There is moderate to severe stenosis C3-C4 and C4-C5 and C5-C6. There is moderate stenosis C6-C7 which could just be due to gantry. There are no acute fractures or dislocations otherwise noted. No lesions. Listhesis is noted similarly to before. On physical exam, Ms. Weinstein demonstrates: The patient states that she had fallen at home approximately 1 month ago after experiencing a seizure. She notes an intense increase in pain since the time of her fall. Today, she reports experiencing a deep, sharp, shooting pain throughout the mid back that radiates down into the low back. She notes intermittent pain radiating down into the bilateral lower extremities. She denies any significant lower extremity pain at this time. She states her symptoms worsen after all activity. She notes she ex periences the most severe pain after prolonged standing. Se notes significant decrease in range of motion since the time of her fall. She reports intermittent headaches and onset of blurred vision about 1 month ago. She reports experiencing severe sleep disturbances related to her ongoing pain and associated symptoms. I have explained to the patient that as their condition progresses it will cause further neurological deficits and eventual paralysis. Based on the patients imaging, physical exam, and the rapid progression and disabling nature of their symptoms, at this time I recommend surgery in the form of a: Revision C2-T6 OR 7 decompression and fusion . I discussed the risk and benefits of this procedure at length with Ms. Weinstein. The patient agreed to considered pursuing the procedure abovementioned. Prior to surgery, she should follow up with her PCP (Cardio, ID, IM etc) for clearance. Questions were invited and answered, and the patient wishes to proceed as outlined below. She recently saw pulmonary, but was not cleared for surgery by them as of yet. We are working on gathering a plan for this as she will need their clearances for surgery. Currently, I am recommendin.Revision C2-T6 OR 7 decompression and fusion Description of Procedure: REVISION C2-T7 DECOMPRESSION AND FUSION WITH KYPHOSIS CORRECTION AND T2-3 INTERBODY FUSION The patient was seen and examined in the preoperative area. All preoperative protocols were followed. Informed consent was obtained, risks and benefits of the procedure were discussed at length. Risks including bleeding infection damage to the surrounding tissue and risk of reoperation were discussed with the patient. Risk of anesthesia up to and including was discussed with the patient. These are outlined in the risk review. They were willing to accept these risks and all of the risks of surgery. The patient was given a weight- based dose of antibiotics in the form of 2 g Ancef. The patient was seen and evaluated by the anesthesia team who deemed them fit for surgery. The site was marked, the patient was willing to proceed with the procedure. The patient was transferred to the operative suite by the Department of anesthesia. They were then drifted off to sleep by the department anesthesia and GETA was performed. The patient tolerated this well. pre-positioning motors were obtained.Howell in place from the floor. Once confirmation of lines and ventilation Barrett head clamp was placed on the patient and secured and the patient was transferred to a [prone Valentino table very carefully] with the Barrett head trimmer the head was secured and placed into an optimal position x-ray confirmed this position. Post-positioning motors remained stable. All bony prominences including wrists, elbows, axilla, chest, hips, and thighs, and feet were padded very well. Special attention was paid to the genitalia and these were padded accordingly. SCDs were placed on bilateral lower extremities and were connected. Arms were well padded and placed tucked at his side thumbs down. Shoulders were gently taped down to the table.. Once in position, again we confirmed good ventilation capabilities and that lines were running appropriately. The patient's posterior cervical spine was then exposed. 1010s were placed outlining the incision site. Standard alcohol was used to clean the incision site and allowed to dry. C-arm was used to biomark the patient and confirm level for incision which was marked with a skin marker. Operative briefing was performed with all teams and everyone in agreement to proceed. The patient was then prepped and draped in a normal sterile fashion. Timeout was then performed and all parties were in agreement with the procedure to be performed. Midline skin incision made over the previously bio-marked area and dissection taken down midline to the SP of C2 and T2 for normal anatomic identification. This was then extended down to the level of T7/8. Subperiosteal dissection taken out over the lamina and lateral masses of C2-C7 and TVP of T1 and T2 extending down to T7/8. Hardware was identified at the C2-T2 region and exposed. Midline exposure was extremely meticulous given the previous laminectomy in this area. No injuries occurred. Once exposure complete, the wound was irrigated and the fusion was inspected. There was reasonable bone formation posterolateral to the C2-3 region, but poor bone formation posterior to the remainder. There was severe kyphotic deformity between T1-2 and T2-3 noted with extreme angulation. There was no good bony fusion noted at T1-2 at this time. Set screws were then released and rods removed. The screws were tested. C2-T1 remained stable and T2 screws were loose and came out easily. These along with the T1 screws were removed bilaterally as we would end up replacing the current charlene with a transitional diameter charlene and would need the space to do so between C6 and T1. The tracts were palpated with ball tip probes and remained safe. We then placed a SP tracker on T7 for [place] navigation and secured it. We then obtained a 3D C arm spin and registered it with [employer] for the assistance in accurate screw placement. Screws were then placed uneventfully from T1-T7 bilaterally using navigated instruments. Navigated sole was used to decorticate the facet joints and perform type I and II osteotomies for mobility and eventual correction. Then this was used to create a bar pilot hole starting point for each screw. Then a navigated tap was sent in followed by a navigated measured screw. Once screws were placed they were visualized on AP and LAT and were in good position and were safe. A second 3D C arm spin was done and confirmed placement of screws and also allowed for further registration for cage placement and decompression. The wound was then irrigated. We then cemented screws at T3, T6 and T7 for further pull out strength and augmentation of these vertebral bodies given her osteoporotic nature. No issues with cementation done under lateral imaging, live. Pt remained stable and there was no extravasation. We then proceeded to decompression and correction with interbody and cage placement. Bilateral laminectomy, complete facetectomy and foraminotomies were done from T1-T4 to allow for mobilization of the CT junction as well as complete decompression of the neural elements. At T2-3 wide extracorporeal access was obtained bilaterally to allow for work around the cord. Roots were preserved at this level and we were able to drill down to the posterior aspect of the body. 3 column osteotomy was then done with an osteotome to mobilize the T2 and T3 segment to allow for kyphosis correction and cage placement. Osteotome was placed into the anterior ? of the vertebral bodies of each and wedge taken out. Sequential shaving then done for removal of any further disc material and bone. [address] production general manager was then placed for correction of the kyphosis and temporary charlene placed and secured to allow for maintenance of the reduction. Autograft and Contour were placed anterior within the disc space. Cage was then selected based on need for correction and size of the interspace. The cage was then placed without having to retract any neural elements, from far lateral to medial across the space optimally in AP and LAT imaging. Once the cage was in position it was expanded to meet the endplates, the [place] production general manager was then removed and t he temporary charlene was then loosened to allow for further expansion and reduction as well as fixation of the T2 fracture. With expansion we were able to obtain about 15-20 deg of kyphosis correction while monitoring the cord carefully. There was no pinching, there were no EMG trains and motors run before and after the correction were all stable. The cage was then locked into position and the temporary charlene was compressed to allow for further reduction. Motors run after were stable. Once this was complete we proceeded to charlene placement. Rods were then sized and selected and cut to length. They were bent accordingly and lordosis and to fit C2 and optimally transition into T1 and allow for further reduction all the way to T7. These were then secured into C2 bilaterally and then sequentially reduced into lateral mass screws followed by T1-4. This then corrected kyphosis and the head was lifted in the barrett dominguez to reduce any further tension placed on the rods and screws as well as to allow for tension free fit at the bottom of the construct. Motors run after were stable. Set screws were then all placed. All set screws were placed and were then final tightened and the position. \Meticulous hemostasis was performed after.. Motors were run before and after decompression and they remain stable. Good pulsations of the cord were noted after decompression. The wound was then copiously irrigated with 3 L of Ancef irrigation followed by 3 L of gentamicin irrigation followed by 3 bottles of Irricept through the case and 1 L betadine which was then washed with 3 L of normal sterile saline. Facet joints were further drilled at each level to allow for fusion Surgicel was placed over the dura. DBM fiber boats along with autograft were placed in the posterior lateral gutters along with autograft.. This was impacted into position for fusion. 2 g of powdered vancomycin was then placed deep within the wound and a deep drain was placed. We then proceeded with layered closure first in the deep fascia with #1 PDS then in the deep fascia followed by a running #1 stratafix. 0 Vicryl was used in the deep subq fascia and an 2-0 in the superficial subq. Skin garland then approximated skin edges. The wound edges approximated very well. The wound was then cleaned and dressed sterilely with an operative foam dressing 4 x 4 and Tegaderm. The drain had good suction. The patient was placed in a hard cervical collar. The patient was transferred back to their hospital bed atraumatically. Barrett head clamp was removed and pin sites were clear. Drain continued to hold suction. The patient was placed in a hard collar. The patient was then awakened and extubated by the department of anesthesia having tolerated the procedure very well with no complications. They were transferred to the postoperative care unit in stable condition.
--- NOTE | 2024-09-12 08:09 | P.PN ---
Subjective Progress Note Date: 09/12/24 Principal diagnosis: 1. s/p C2-T2 decompression and fusion 2.s/p C3-C6 ACDF 3. 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 CERVICOTHORACIC DEFORMITY WITH PAIN Patient seen and examined this morning. Patient is resting comfortably in bed. She is not okay this morning, she is refusing to take any of her medications because she feels that the staff is not going to give her the correct medications. Patient is stating that she is missing 4 of her rings from her purse. Informed patient that we will follow through with patient advocate and have security come up and speak with her. Patient verbalizes understanding. Encourage patient to take her medications that the medications will be reviewed with her as they are given to her. Patient is requesting to leave, educated patient on the importance of staying due to increased output of her surgical drain. Surgical incision to the posterior cervicothoracic spine, edges are well-approximated with garland intact. Hemovac drain is present to the right of the incision with an output of 125 mL overnight. New dressing has been applied. Patient reports that she is ambulatory up in room, encourage patient to ask for assistance due to the drain. Continue to encourage patient to utilize incentive spirometer. Objective - Vital Signs Vital signs: Vital Signs Temp 98.2 F 09/12/24 02:00 Pulse 77 09/12/24 02:00 Resp 17 09/12/24 02:00 BP 131/81 09/12/24 02:00 Pulse Ox 94 L 09/12/24 02:00 FiO2 5 09/11/24 00:00 Intake & Output 09/11/24 09/12/24 09/12/24 18:59 06:59 18:59 Intake Total 372 Output Total 375 125 Balance -3 -125 Intake: IV 150 Sodium Chloride 0.9% 1, 150 000 ml @ 75 mls/hr IV . [id number] VIVI Rx#:[id number] Oral 222 Output: Drainage 200 125 Right Back 200 125 Urine 175 Other: Voiding Method Indwelling Catheter Toilet # Voids 2 ABP, PAP, CO, CI - Last Documented Arterial Blood Pressure 91/57 - Exam Physical Examination General: The patient is awake and alert, in no acute distress Skin: Skin is warm and dry with no obvious rashes or lesions. Surgical incision to the posterior cervicothoracic spine, Well-approximated with garland intact. Hemovac drain is present to the right of the incision with a documented 125 mL output overnight dressing has been applied. Eye: Pupils are equal, round and reactive to light, extra-ocular movements are intact; there is normal conjunctiva bilaterally. Neck: The neck is supple, there is moderate tenderness and limited ROM due to surgical procedure and Effie collar intact. Cardiovascular: There is a regular rate and rhythm. No murmur, rub or gallop is appreciated. Respiratory: Respirations are non-labored, breath sounds are equal. Gastrointestinal: Soft, non-distended, non-tender abdomen. Back: There is no tenderness to palpation in the midline, paralumbar, parathoracic or buttocks region. There is no obvious deformity . Musculoskeletal: ROM limited secondary to pain and stiffness from surgical procedure. Right: Shoulder abduction 4/5, elbow flexors 4/5, wrist dorsiflexors 4/5. finger abductor 5/5, pole classifier 5/5, hip flexor 5/5, knee flexor 5/5, ankle dorsiflexor 5/5, ankle plantarflexion 5/5 and extensor hallucis 5/5. Left: Shoulder abduction 4/5, elbow flexors 4/5, wrist dorsiflexors 4/5. finger abductor 5/5, pole classifier 5/5, hip flexor 5/5, knee flexor 5/5, ankle dorsiflexor 5/5, ankle plantarflexion 5/5 and extensor hallucis 5/5. Neurological: CN 2-12 intact. There are no obvious motor or sensory deficits. Movement and coordination equal and intact. Sensory exam to light touch intact C5-T1 and intact from L2-S1. Reflexes 2/4 in bilateral upper and lower extr emities. Negative Hoffmans, babinski, and clonus signs. Psychiatric: Cooperative, appropriate mood & affect, normal judgment. - Labs CBC & Chem 7: 09/11/24 04:35 09/11/24 11:28 Labs: Abnormal Lab Results - Last 24 Hours (Table) 09/11/24 Range/Units 11:28 Potassium 3.3 L (3.5-5.1) mmol/L Assessment and Plan Assessment: Post Op Day 3: Revision T2-T7 decompression and fusion with deformity correction Plan: -Appreciate organizational effectiveness consultant and team management. -Activity: Ambulate QID, OOB all meals, up and about, limit lifting bending twisting to less than 5 lbs. Use walker or cane if needed for stability. -Daily PT/OT, increase ambulation strength and balance. - Hard cervical collar on at all times, may remove for showers. -Pain control: Adequate at this time -Meds: reviewed -GI ppx: senna, Miralax -DVT PPX: Aspirin 81mg daily -Hygiene: Maintain incision clean and dry. May change dressing as needed, please document in notes if performed. -Drains: Maintain for now. Continue to monitor and record output q shift, may discontinue drain if patient continues abrupt behavior. -Encourage IS 10x/hr -Dispo: Clinically pending.
[2024-09-12 08:43] LABS: Blood Urea Nitrogen 6.2 mg/dL (9.0-27.0); Calcium 8.5 mg/dL (8.7-10.3); Carbon Dioxide 22.9 mmol/L (21.6-31.8); Chloride 104 mmol/L (96-109); Glucose 91 mg/dL (70-110); Sodium 138 mmol/L (135-145)
[2024-09-12 10:26] LABS: HCT 33.2 % (34.0-46.0); HGB 11.1 gm/dL (11.4-16.0); MCH 34.7 pg (25.0-35.0); MCHC 33.4 g/dL (31.0-37.0); MCV 103.7 fL (80.0-100.0); Macrocytosis Slight; Mean Platelet Volume 6.9; Platelet Count 324 k/uL (150-450); WBC 13.7 k/uL (3.8-10.6)
--- NOTE | 2024-09-12 18:15 | P.PN ---
Subjective Progress Note Date: 09/12/24 This is a 54-year-old female who is seen today in room 261. The patient is postoperative day #1, status post T2-T7 decompression, with fusion. The patient was transferred to the intensive care unit, for further monitoring and management. She had surgery yesterday with Dr. Mchugh. Currently, she is resting comfortably in bed. When she first came to the intensive care unit, she was very lethargic and sleepy, and I placed her on BiPAP, with settings of 10/5, and 40%. She stayed on BiPAP till midnight. Currently, she is on 6 L nasal cannula. She still a bit sleepy. She is getting saline at 75 cc an hour. Current laboratory data includes a white count 13.4, hemoglobin 11, hematocrit 34.3, and a platelet count of 322,000. Sodium 134, potassium 3.8, chlorides 103, CO2 26, BUN 9, creatinine 0.6. Glucose was 97. Calcium 7.9. Magnesium was 1.6. The patient does have a cervical collar in place. Chest x-ray shows chronic emphysematous changes, without anything acute. The chest x-ray is unchanged compared to the x-ray done the day prior. Progress note dated September 11, 2024. 54-year-old female postop day #2, status post thoracic surgery, resting comfortably in the intensive care unit, room 261. She is on room air. She is getting saline at 75 cc an hour. Many of her psychiatric medications are reordered today. The patient has no specific complaints. She is a bit agitate d, and I was informed about this, by the nurse. Current labs include white count 11.3, hemoglobin 10.3, hematocrit 31.6, and a normal platelet count. Sodium 131, potassium 3.4, chlorides 99, CO2 27, BUN 7, creatinine 0.6. Glucose 77. Calcium 7.8. Magnesium 1.5. Chest x-ray shows no acute pulmonary process. On 09/12/2024, patient is being seen for a follow-up. Patient is currently postop day #3 following a T2/T7 decompression and fusion. Doing well. No significant respiratory distress. The patient is using incentive spirometer. She is on room air oxygen with a pulse ox of 95%. She remains on albuterol nebulized treatments. Pain is under adequate control. Adequate mobility in all 4 extremities. She is also on Symbicort as maintenance. No specific complaints. Labs from today shows a white cell count of 13, hemoglobin of 11.1 and a platelet count of 324. Sodium is at 138, potassium is at 4, BUN is at 6 with a creatinine of 0.5. No altered mentation. No other complaints otherwise for now. The output from the Hemovac is still bloody. Objective - Vital Signs Vital signs: Vital Signs Temp 97.7 F 09/12/24 07:57 Pulse 96 09/12/24 12:10 Resp 17 09/12/24 07:57 BP 142/70 09/12/24 07:57 Pulse Ox 95 09/12/24 07:57 FiO2 5 09/11/24 00:00 Intake & Output 09/11/24 09/12/24 09/12/24 18:59 06:59 18:59 Intake Total 372 Output Total 375 125 Balance -3 -125 Intake: IV 150 Sodium Chloride 0.9% 1, 150 000 ml @ 75 mls/hr IV . [id number] VIVI Rx#:[id number] Oral 222 Output: Drainage 200 125 Right Back 200 125 Urine 175 Other: Voiding Method Indwelling Catheter Toilet # Voids 2 ABP, PAP, CO, CI - Last Documented Arterial Blood Pressure 91/57 - Exam No acute distress, awake and alert. Currently on room air. HEENT examination is grossly unremarkable. Mucous membranes are moist. No oral lesions. Neck supple. Full range of motion. No adenopathy thyromegaly or neck vein distention. Cervical collar in place. Cardiovascular examination reveals regular rhythm rate. S1-S2 normal. No S3 or S4. No discernible murmur noted. Lungs reveal clear breath sounds. Breath sounds are equal bilaterally. No adventitious lung sounds including wheezes rhonchi or crackles. Abdomen soft bowel sounds are heard. No masses or tenderness. Extremities are intact. No cyanosis clubbing or edema. Skin is without rash or lesion. Neurologic examination is brief but nonfocal. - Labs CBC & Chem 7: 09/12/24 09:49 09/12/24 03:03 Labs: Abnormal Lab Results - Last 24 Hours (Table) 09/12/24 09/12/24 Range/Units 03:03 09:49 WBC 13.7 H (3.8-10.6) k/uL RBC 3.20 L (3.80-5.40) m/uL Hgb 11.1 L (11.4-16.0) gm/dL Hct 33.2 L (34.0-46.0) % MCV 103.7 H (80.0-100.0) fL BUN 6.2 L (9.0-27.0) mg/dL Creatinine 0.5 L (0.6-1.5) mg/dL Calcium 8.5 L (8.7-10.3) mg/dL Assessment and Plan Plan: Postoperative day #3, status post T2-T7 decompression with fusion. Adequate pain control. Adequate motor function of all 4 extremities. [address] still in place. History of COPD. History of CAD with previous myocardial infarction. History of hypertension. History of hyperlipidemia. History of congestive heart failure. History of gastroesophageal reflux disease. History of seizure disorder. History of hypothyroidism. History of irritable bowel syndrome. History of anxiety/depression/PTSD. Plan: Respiratory status is stable. Continue using the incentive spirometer Patient is on room air oxygen No signs of any respiratory insufficiency Monitor output from the Hemovac Continue current medication Increase mobility Will continue to follow
[2024-09-12 21:46] VITALS: RESP 16
--- NOTE | 2024-09-12 23:54 | P.PN ---
Subjective Progress Note Date: 09/12/24 Patient is admitted for C2-T2 decompression and fusion surgery patient is extubated patient is requiring continuous of oxygen at this time probably will need BiPAP patient has history of COPD has not been taking deep breaths patient is quite a bit drowsy pain is well-controlled. 09/11/2024 Patient has had psychosis episodes last night patient was resumed on her antipsychotics which will can be restarted if needed for anxiety. Patient hyponatremia worsened with IV fluids IV fluids will be discontinued patient may have SIADH from pain/antipsychotic medications patient will be started on fluid restriction 1800/day 09/12/2024 Patient is seen in follow-up with no reported overnight issues. Per nursing staff patient reported she wanted to leave even if it was against medical advice today. Orthopedics monitoring as patient has continued increased output in the Hemovac. Hemoglobin is stable above 11 and will follow-up with repeat CBC in AM. Hyponatremia significantly improved and sodium is 138. Continue current regimen and okay to discontinue fluids. Encouraged incentive spirometer use and patient needs reinforcement and proper use of this equipment. Encouraged increase activity as tolerated with continued PT/OT therapy daily. Review of systems: Constitutional: No reports of fatigue, fever, or chills Cardiovascular: No reports of chest pain or palpitations Respiratory: No reports of shortness of breath or cough GI: No reports of nausea, vomiting, or diarrhea : No reports of dysuria or retention Neurovascular: No reports of weakness or numbness All medications have been reviewed All other systems are negative except those mentioned in the HPI PHYSICAL EXAMINATION: GENERAL: The patient is awake and oriented x3, not in any acute distress. Slightly anxious, well developed, thin built, appears older than stated age HEENT: Pupils are round and equally reacting to light. EOMI. No scleral icterus. No conjunctival pallor. Normocephalic, atraumatic. No pharyngeal erythema. No thyromegaly. CARDIOVASCULAR: S1 and S2 present. No murmurs, rubs, or gallops. PULMONARY: Chest is clear to auscultation, no wheezing or crackles. ABDOMEN: Soft, thin, nontender, nondistended, normoactive bowel sounds. No palpable organomegaly. MUSCULOSKELETAL: No joint swelling or deformity. EXTREMITIES: No cyanosis, clubbing, or pedal edema. NEUROLOGICAL: Gross neurological examination did not reveal any focal deficits. SKIN: No rashes. Assessment: -Cervical and thoracic degenerative disc disease and status post decompression and fusion surgery: Pain management as per primary service -Hyponatremia probably SIADH from pain, improved and sodium is 138 -Acute hypoxic respiratory failure requiring secondary to emphysema along with drowsiness:And patient not taking deep breaths. This is improved and patient is presently on room air -COPD without any acute exacerbation -History of DVT in the past presently not on any anticoagulation -Fibromyalgia -Hyperlipidemia -Hypertension -Seizure disorder -Hypothyroidism Plan: Continue with current regimen and DVT prophylaxis along with pain management and bowel regimen per orthopedics Continued drainage noted in the Hemovac with concerns of increased output. CBC is stable above 11 and will follow-up with repeat Encourage incentive spirometer use and better instruction on how to properly use the device Continue with appropriate home medications and inhalers as needed Encouraged increase activity as tolerated and recommend PT/OT therapy Patient would like to go home and awaiting orthopedic clearance. Patient is medically stable once cleared by orthopedics. Thank you kindly for this consultation. We will continue to follow with orthopedics during hospitalization. The impression and plan of care has been dictated by Kristina Wells, Nurse Practitioner as directed. Dr. Jayson MD I have performed a history and examination and MDM of this patient, discussed the same with the dictator, and agree with the dictator's assessment and plan as written ,documented as a scribe. Based on total visit time, I have performed more than 50% of the visit. Objective - Vital Signs Vital signs: Vital Signs Temp 97.7 F 09/12/24 07:57 Pulse 94 09/12/24 09:18 Resp 17 09/12/24 07:57 BP 142/70 09/12/24 07:57 Pulse Ox 95 09/12/24 07:57 FiO2 5 09/11/24 00:00 Intake & Output 09/11/24 09/12/24 09/12/24 18:59 06:59 18:59 Intake Total 372 Output Total 375 125 Balance -3 -125 Intake: IV 150 Sodium Chloride 0.9% 1, 150 000 ml @ 75 mls/hr IV . [id number] VIVI Rx#:[id number] Oral 222 Output: Drainage 200 125 Right Back 200 125 Urine 175 Other: Voiding Method Indwelling Catheter Toilet # Voids 2 ABP, PAP, CO, CI - Last Documented Arterial Blood Pressure 91/57 - Labs CBC & Chem 7: 09/12/24 09:49 09/12/24 03:03 Labs: Abnormal Lab Results - Last 24 Hours (Table) 09/11/24 09/12/24 Range/Units 11:28 03:03 Potassium 3.3 L (3.5-5.1) mmol/L BUN 6.2 L (9.0-27.0) mg/dL Creatinine 0.5 L (0.6-1.5) mg/dL Calcium 8.5 L (8.7-10.3) mg/dL
--- NOTE | 2024-09-13 07:15 | P.PN ---
Subjective Progress Note Date: 09/13/24 Principal diagnosis: 1. s/p C2-T2 decompression and fusion 2.s/p C3-C6 ACDF 3. 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 CERVICOTHORACIC DEFORMITY WITH PAIN Patient seen and examined this morning. Patient is resting comfortably in bed. She reports that her pain is better managed at this time. Surgical incision to the posterior cervicothoracic spine, Hemovac is present with 80 mL output overnight. Drain may be removed and new dressing applied. Patient states that she has been ambulatory independently in the room and tolerating activity well. [place] hard collar is intact. Patient is requesting to be discharged today, this is reasonable. No acute concerns at this time. Objective - Vital Signs Vital signs: Vital Signs Temp 98.2 F 09/13/24 00:56 Pulse 109 H 09/13/24 00:56 Resp 16 09/13/24 00:56 BP 123/81 09/13/24 00:56 Pulse Ox 91 L 09/13/24 00:56 FiO2 5 09/11/24 00:00 Intake & Output 09/12/24 09/13/24 09/13/24 18:59 06:59 18:59 Intake Total 1014 1620 Output Total 50 40 Balance 964 1580 Intake: Oral 1014 1620 Output: Drainage 50 40 Right Back 50 40 Other: # Voids 3 5 # Bowel Movements 1 ABP, PAP, CO, CI - Last Documented Arterial Blood Pressure 91/57 - Exam Physical Examination General: The patient is awake and alert, in no acute distress Skin: Skin is warm and dry with no obvious rashes or lesions. Surgical incision to the posterior cervicothoracic spine, Hemovac drain is present with 80 mL output overnight. Dressing is clean dry and intact. Eye: Pupils are equal, round and reactive to light, extra-ocular movements are intact; there is normal conjunctiva bilaterally. Neck: The neck is supple, there is moderate tenderness and limited ROM due to surgical procedure and [place] collar intact. Cardiovascular: There is a regular rate and rhythm. No murmur, rub or gallop is appreciated. Respiratory: Respirations are non-labored, breath sounds are equal. Gastrointestinal: Soft, non-distended, non-tender abdomen. Back: There is no tenderness to palpation in the midline, paralumbar, parathoracic or buttocks region. There is no obvious deformity . Musculoskeletal: ROM limited secondary to pain and stiffness from surgical procedure. Right: Shoulder abduction 4/5, elbow flexors 4/5, wrist dorsiflexors 4/5. finger abductor 5/5, cloth covered helmet puller 5/5, hip flexor 5/5, knee flexor 5/5, ankle dorsiflexor 5/5, ankle plantarflexion 5/5 and extensor hallucis 5/5. Left: Shoulder abduction 4/5, elbow flexors 4/5, wrist dorsiflexors 4/5. finger abductor 5/5, cloth covered helmet puller 5/5, hip flexor 5/5, knee flexor 5/5, ankle dorsiflexor 5/5, ankle plantarflexion 5/5 and extensor hallucis 5/5. Neurological: CN 2-12 intact. There are no obvious motor or sensory deficits. Movement and coordination equal and intact. Sensory exam to light touch intact C5-T1 and intact from L2-S1. Reflexes 2/4 in bilateral upper and lower extre mities. Negative Hoffmans, babinski, and clonus signs. Psychiatric: Cooperative, appropriate mood & affect, normal judgment. - Labs CBC & Chem 7: 09/12/24 09:49 09/12/24 03:03 Labs: Abnormal Lab Results - Last 24 Hours (Table) 09/12/24 09/12/24 Range/Units 03:03 09:49 WBC 13.7 H (3.8-10.6) k/uL RBC 3.20 L (3.80-5.40) m/uL Hgb 11.1 L (11.4-16.0) gm/dL Hct 33.2 L (34.0-46.0) % MCV 103.7 H (80.0-100.0) fL BUN 6.2 L (9.0-27.0) mg/dL Creatinine 0.5 L (0.6-1.5) mg/dL Calcium 8.5 L (8.7-10.3) mg/dL Assessment and Plan Assessment: Post Op Day 4: Revision T2-T7 decompression and fusion with deformity correction Plan: -Appreciate work and family life consultant and team management. -Activity: Ambulate QID, OOB all meals, up and about, limit lifting bending twisting to less than 5 lbs. Use walker or cane if needed for stability. -Daily PT/OT, increase ambulation strength and balance. - Hard cervical collar on at all times, may remove for showers. -Pain control: Adequate at this time -Meds: reviewed -GI ppx: senna, Miralax -DVT PPX: Aspirin 81mg daily -Hygiene: Maintain incision clean and dry. May change dressing as needed, please document in notes if performed. -Drains: Hemovac drain to be removed and new surgical dressing applied. -Encourage IS 10x/hr -Dispo: Discharge home later today.
--- NOTE | 2024-09-13 07:21 | P.DS ---
Providers Date of admission: 09/09/24 08:48 Expected date of discharge: 09/13/24 Attending physician: Leonel Mchugh DO Consults: 09/09/24 12:56 Consult Physician Routine Consulting Provider: Harpreet Ballard Reason/Comments: medical management s/p revision T2-T7 decompr fusion Do you want consulting provider notified?: Yes 09/09/24 19:42 Consult Physician Routine Consulting Provider: Dustin Martinez Reason/Comments: medical management Do you want consulting provider notified?: Yes 09/10/24 07:41 Consult Physician Routine Consulting Provider: Sergo Rivera Reason/Comments: ICU management Do you want consulting provider notified?: Already Contacted Primary care physician: Harpreet Ballard Hospital Course: Hospital Course: The patient was evaluated preoperatively and found to have the diagnosis of cervical and thoracic stenosis with deformity. They underwent appropriate preoperative care and were willing to undergo the intended procedure. They underwent a successful revision T2-T7 decompression and fusion with deformity correction were recovered appropriately and sent to the floor. While on the floor they worked with physical therapy, occupational therapy and nursing to enhance their recovery experience. Their pain was well controlled through their stay and they were started on appropriate medications, DVT ppx modalities, activity and dietary needs. Daily labs were monitored closely, and transfusions were only used when necessary. Medicine as well as other consulting services have made their input and have helped with our team approach and multidisciplinary care. PT milestones have been met and passed and they have made the recommendation of home for this patient and treating providers agree with this care path. The patient will be discharged home with appropriate medications, instructions and follow-up information and in stable condition. Patient Condition at Discharge: Good Plan - Discharge Summary Discharge Rx Participant: No New Discharge Prescriptions: New Gabapentin 800 mg PO TID #90 tab HYDROcodone/APAP 10-325MG [Tomales 10-325] 1 tab PO Q4HR PRN #40 tab PRN Reason: Pain cefaDROXiL [Duricef] 500 mg PO Q12HR #10 cap Cyclobenzaprine [Flexeril] 5 mg PO TID PRN #40 tablet PRN Reason: Muscle Spasm Sennosides/Docusate Sodium [Senna Plus 8.6-50 mg Tablet] 2 each PO DAILY PRN #40 tab PRN Reason: Constipation No Action Sertraline [Zoloft] 200 mg PO QAM Asenapine Maleate [Saphris] 10 mg SUBLINGUAL BID Pantoprazole Sodium [Protonix] 40 mg PO BID Gabapentin 800 mg PO TID busPIRone HCl [Buspar] 15 mg PO TID Albuterol Sulfate [Proair Hfa] 2 puff INHALATION RT-QID PRN PRN Reason: Shortness Of Breath Prazosin HCl [Minipress] 2 mg PO BID@1700,2100 Sennosides [Senokot] 17.2 mg PO DAILY Fluticasone/Umeclidin/Vilanter [Trelegy Ellipta 100-62.5-25] 1 puff INHALATION RT-DAILY Brivaracetam [Briviact] 100 mg PO BID Magnesium Oxide [Mag-Ox] 400 mg PO DAILY Budesonide [Pulmicort] 0.5 mg INHALATION RT-BID Butalb/Acetaminophen/Caffeine [Fioricet 50-325-40] 1 tab PO QID Cyclobenzaprine [Flexeril] 5 mg PO TID Fluticasone Nasal Eleanor [Flonase Nasal Eleanor] 1 spray EA NOSTRIL DAILY Furosemide [Lasix] 60 mg PO DAILY Ipratropium-Albuterol Nebulize [Duoneb 0.5 mg-3 mg/3 ml Soln] 3 ml INHALATION BID Propranolol [Inderal] 20 mg PO BID Diclofenac Sodium Gel [Voltaren 1% Gel] 100 gm TOPICAL BID 30 Days #1 each Ibuprofen [Motrin] 800 mg PO TID cloBAZam [Sympazan] 10 mg PO BID Topiramate [Trokendi Xr] 100 mg PO QAM hydrOXYzine pamoate [Vistaril] 50 mg PO TID rOPINIRole HCL [Requip] 3 mg PO BID Cetirizine HCl [Zyrtec] 10 mg PO DAILY Levothyroxine Sodium [Synthroid] 88 mcg PO DAILY Acetaminophen-Codeine 300-30mg [Tylenol w/codeine #3] 1 tab PO TID PRN PRN Reason: Pain Discharge Medication List Asenapine Maleate [Saphris] 10 mg SUBLINGUAL BID 04/30/17 [History] Sertraline [Zoloft] 200 mg PO QAM 04/30/17 [History] Pantoprazole Sodium [Protonix] 40 mg PO BID 01/07/19 [History] Gabapentin 800 mg PO TID 04/15/21 [History] Topiramate [Trokendi Xr] 100 mg PO QAM 04/15/21 [History] busPIRone HCl [Buspar] 15 mg PO TID 04/15/21 [History] cloBAZam [Sympazan] 10 mg PO BID 04/15/21 [History] hydrOXYzine pamoate [Vistaril] 50 mg PO TID 04/16/21 [History] Albuterol Sulfate [Proair Hfa] 2 puff INHALATION RT-QID PRN 05/10/21 [History] Prazosin HCl [Minipress] 2 mg PO BID@1700,2100 05/10/21 [History] rOPINIRole HCL [Requip] 3 mg PO BID 05/10/21 [History] Fluticasone/Umeclidin/Vilanter [Trelegy Ellipta 100-62.5-25] 1 puff INHALATION RT-DAILY 12/10/22 [History] Sennosides [Senokot] 17.2 mg PO DAILY 12/10/22 [History] Brivaracetam [Briviact] 100 mg PO BID 07/10/23 [History] Magnesium Oxide [Mag-Ox] 400 mg PO DAILY 07/10/23 [History] Budesonide [Pulmicort] 0.5 mg INHALATION RT-BID 07/27/23 [History] Butalb/Acetaminophen/Caffeine [Fioricet 50-325-40] 1 tab PO QID 07/27/23 [History] Cetirizine HCl [Zyrtec] 10 mg PO DAILY 07/27/23 [History] Cyclobenzaprine [Flexeril] 5 mg PO TID 07/27/23 [History] Fluticasone Nasal Eleanor [Flonase Nasal Eleanor] 1 spray EA NOSTRIL DAILY 07/27/23 [History] Furosemide [Lasix] 60 mg PO DAILY 07/27/23 [History] Ipratropium-Albuterol Nebulize [Duoneb 0.5 mg-3 mg/3 ml Soln] 3 ml INHALATION BID 07/27/23 [History] Levothyroxine Sodium [Synthroid] 88 mcg PO DAILY 07/27/23 [History] Propranolol [Inderal] 20 mg PO BID 07/27/23 [History] Diclofenac Sodium Gel [Voltaren 1% Gel] 100 gm TOPICAL BID 30 Days #1 each 10/19/23 [Rx] Acetaminophen-Codeine 300-30mg [Tylenol w/codeine #3] 1 tab PO TID PRN 09/05/24 [History] Ibuprofen [Motrin] 800 mg PO TID 09/05/24 [History] Cyclobenzaprine [Flexeril] 5 mg PO TID PRN #40 tablet 09/13/24 [Rx] Gabapentin 800 mg PO TID #90 tab 09/13/24 [Rx] HYDROcodone/APAP 10-325MG [Tomales 10-325] 1 tab PO Q4HR PRN #40 tab 09/13/24 [Rx] Sennosides/Docusate Sodium [Senna Plus 8.6-50 mg Tablet] 2 each PO DAILY PRN #40 tab 09/13/24 [Rx] cefaDROXiL [Duricef] 500 mg PO Q12HR #10 cap 09/13/24 [Rx] Follow up Appointment(s)/Referral(s): Leonel Mchugh DO [Doctor of Osteopathic Medicine] - 2 Weeks Activity/Diet/Wound Care/Special Instructions: Spine Discharge and Recovery Instructions Date of Surgery: 09/09/2024 Diagnosis: 1. s/p C2-T2 decompression and fusion 2.s/p C3-C6 ACDF 3. 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 CERVICOTHORACIC DEFORMITY WITH PAIN Procedure: Revision T2-T7 decompression and fusion Medications: See medication list All medication refills should be obtained through your primary care doctor or your clinic spine surgeon. Please discuss prescription refills at your follow up appointment. Do not call the hospital for medication refills. Dressing: Leave your dressing in place for a total of 5 days post operatively. Then you may remove your dressing and leave open to air. Keep the area clean and if not able to keep area clean, then cover with sterile gauze and tape. Showering: You may shower 3 days after your procedure allowing soap and water to run over incision. Do not scrub. Do not soak. Blot dry. Follow up: Please confirm a follow up appointment with your surgeon 3 weeks post operatively. Please make an appointment to follow up with your PCP in 1-2 weeks after surgery for evaluation '3 phase, 3-week plan' POST OP WEEKS 1-3 1. Lifting/carrying/pushing/pulling limited to less than 5 pounds. 2. Do not sit for longer than 15 minutes at one time. Get up and walk around. Prolonged sitting is NOT advised. If you lay down, see if you can tolerate laying down on you front (belly side) 3. Walk for periods of 15 minutes = 1 mile but no longer; do it multiple times times each day. 4. Ice your low back after activity. POST OP WEEKS 3-6 1. Lifting limited to less than 20 pounds. 2. Do not sit for longer than 30 minutes at a time. Frequently change positions. Use a sit-to stand workstation or take frequent breaks from sitting if you have returned to work. 3. Walk for 30 minutes each day. If possible, do these three or more times a day POST OP WEEKS 6+ At your 6-week appointment we will give you a physical therapy referral to focus on a core stabilization and strengthening program. You should also work on leg & buttock strengthening, hamstring & quadriceps stretching, and continue a low impact aerobic activity program such as swimming, walking, or riding a stationary bicycle. During the initial 6 weeks after your surgery, you are at the highest risk of re-injuring your spine. You should generally avoid BLT's (bending, lifting and twisting combination motions) and follow the above guidelines to reduce the chance of reinjury. You can anticipate post op appointments in our office at approximately 3 weeks and 6 weeks after your surgery. INCISION CARE: If your incision is not draining you do NOT need to cover it with a dressing. Keep your incision clean, dry and intact. In most cases, we apply skin glue, garland or sutures to the incision at the time of surgery. This will be like a crust or have the appearance of a scab and will fall off in time on its own. The stitches or garland need to be removed at 3 weeks post op appointment. You may begin to shower 3 days after surgery (this allows the glue to amador well). However, please avoid scrubbing the incision site or peeling off any of the skin glue. This will ensure optimal healing of your incision. Also, during this time avoid soaking the incision area in water - this includes swimming pools, hot tubs or baths. No ointments, lotions or oils on the incision until your surgeon allows. Leave garland, sutures or glue in place. Neurological dysfunction that comes on suddenly can also be a sign of a stroke. Below some common symptoms of a stroke are listed: B - balance difficulty such as sudden onset walking or leaning to one side - NEW E - eye problem such as sudden double vision or trouble seeing on one side - NEW F - Facial weakness or numbness on one side - NEW A - Arm or leg weakness or numbness on one side - NEW S - Slurred speech or difficulty with word finding - NEW T - Time is BRAIN! Call 911 as soon as you recognize these symptoms Diet: Consume a regular diet rich in vegetables and lean protein such as chicken or fish. You should consume in a ratio of approximately 20% fats|40% carbohydrates|40%protein. Vegetables, sweet potatoes, brown rice or quinoa are examples of good carbohydrates. Chips, white bread, cookies and sweets/sugar are examples of bad carbohydrates. Limit your bad carbs, go wild with good carbs. 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 (1) Get Active. Physical activity can help people lose weight, control high blood pressure and cholesterol, feel emotionally better, and sleep better. (2) Control Cholesterol. Avoid a diet high in saturated fat, trans fat, & cholesterol. Limit whole milk & cream, ice cream, butter, egg yolks, processed meats (like sausage and hot dogs), and fatty meats. Choose healthy foods that are low in saturated fat, trans fat and cholesterol which include: Fruits and vegetables, fiber rich grain products (like whole grain pasta and brown rice), lean meat such as chicken, fish, nuts, seeds, and legumes. (3) Eat Better. Eat small portions. Shop at the grocery with a list and do not stray from it. Tips for a healthy diet include: Limit sodium intake to less than 1500mg daily, avoid prepackaged, processed, and fast foods, choose a diet rich in fruits, vegetables, and whole grain, high fiber foods, and limit saturated & cholesterol in your diet. (4) Manage Blood Pressure. If you have high blood pressure, you should have a cuff at home so that you can check your blood pressure regularly. Be sure you have a good cuff. An arm one is generally better than a wrist one. Bring the cuff to a doctor's appointment to validate that the measurements that your cuff are taking are accurate. Take your blood pressure twice daily when you are sitting down and relaxing. Record the numbers in a log and bring this log with you to your doctors' appointments. (5) Lose Weight if your BMI is above 25. A healthy BMI is between 19-25. To calculate Your BMI, you may use a Standard BMI Calculator on the NIH BMI website: <www.nhlbi.nih.gov/guidelines/obesity/BMI/bmicalc.htm>. Weigh oneself daily. If you are overweight, set a goal to lose weight. A pound a week loss if needed is a good target. (6) Reduce Blood Sugar. Limit foods and liquids with "added sugars." (Added sugars include sucrose, fructose, glucose, maltose, dextrose, high fructose corn syrup, corn syrup, concentrated fruit juice and honey). (7) Stop Smoking. If you smoke, quitting smoking is one of the best things that you can do for your health. Smoking increases your risk of heart attack, stroke, and peripheral vascular disease, which is a build-up of plaque in your arteries. Please discard all the cigarettes and lighters in your house. Have a plan for what you will do when you have the urge to smoke. Direct and second- hand smoke shortens your life as well as the lives of your family, friends and others around you. For your health and the health of those around you, please consider quitting! Proper Bending Body Mechanics: Maintain a wide stance with one foot slightly in front of the other. Keep your back straight. Bend utilizing the strength in your hips and knees. Do not bend at the waist. Maintain the lifted object at your waist-level close to your body. Avoid lifting weight that causes immediately pain or pain anywhere in the body afterwards. Smoking/Nicotine If there was ever one thing that you could do to increase your overall health, decrease your risk of cardiovascular problems by about 39% the second you make the choice, it is to STOP SMOKING. Your body's most instant gratification is the second you stop smoking. We have all heard the studies, read the articles but it is true, smoking is extremely bad for your overall health, and moreover it is detrimental to your bone health. Nicotine, IN ANY FORM, kills bone cells, prevents your body from healing fractures, and significantly prolongs healing after surgery. In spine surgery specifically, it increases your risk of not healing your bones to create a fusion and increases your risk of having a revision surgery due to this up to 60%. I know it is hard. I know it feels impossible. But there are ways. Take control of your life. We are here to help you through it. And when you are ready, ask us and we can direct you to help if you desire. Use the START Plan to Quit Smoking (please visit the Helpguide.org website listed below for more information): S = Set a quit date. Choose a date within the next 2 weeks, so you have enough time to prepare without losing your motivation to quit. If you mainly smoke at work, quit on the weekend, so you have a few days to adjust to the change. T = Tell family, friends, and co-workers that you plan to quit. Let your friends and family in on your plan to quit smoking and tell them you need their support and encouragement to stop. Look for a quit gabrielle who wants to stop smoking as well. You can help each other get through the rough times. A = Anticipate and plan for the challenges you'll face while quitting. Most people who begin smoking again do so within the first 3 months. You can help yourself make it through by preparing ahead for common challenges, such as nicotine withdrawal and cigarette cravings. R = Remove cigarettes and other tobacco products from your home, car, and work. Throw away all your cigarettes (no emergency pack!), lighters, ashtrays, and matches. Wash your clothes and freshen up anything that smells like smoke. Shampoo your car, clean your drapes and carpet, and steam your furniture. T = Talk to your doctor about getting help to quit. Your doctor can prescribe medication to help with withdrawal and suggest other alternatives. If you can't see a doctor, you can get many products over the counter at your local pharmacy or grocery store, including the nicotine patch, nicotine lozenges, and nicotine gum. Resources for Quitting Smoking: <https://www.[place].gov/documents/[facility]/Quit_Tobacco_Resources_for_patients_313 480_7.pdf> Supplementation: Take recommended dosages of Vitamin D and Calcium to help fortify your bones and help them to heal. See your health maintenance packet for dosages and recommended levels. DVT/VTE prophylaxis: You will be given compression stockings from the hospital. Wear these daily for the first two weeks after surgery. You may take them off at night. You may be prescribed a medication to help thin your blood. Take this as directed. If you are not prescribed this medication, early and frequent ambulation has been shown to be the best prophylaxis to deep vein thrombosis and sequelae related to this event. Discharge Disposition: HOME SELF-CARE
[2024-09-13 08:24] VITALS: BP 142/94; TEMP 98.3
[2024-09-13 08:31] LABS: Basophils # (A) 0.08 X 10*3/uL (0.00-0.10); Basophils % (A) 0.8 %; Eosinophils # (A) 0.36 X 10*3/uL (0.04-0.35); Eosinophils % (A) 3.6 %; HCT 33.9 % (37.2-46.3); Lymphocytes # (A) 1.93 X 10*3/uL (0.90-5.00); Lymphocytes % (A) 19.3 %; MCH 33.2 pg (27.0-32.0); MCHC 32.4 g/dL (32.0-37.0); MCV 102.4 FL (80.0-97.0); Mean Platelet Volume 9.4 FL (9.5-12.2); Monocytes # (A) 1.07 X 10*3/uL (0.20-1.00); Monocytes % (A) 10.7 %; NRBC Per 100 WBC 0 X 10*3/uL (0.00-0.01); Neutrophils # (A) 6.51 X 10*3/uL (1.80-7.70); Neutrophils % (A) 65.1 %; Platelet Count 369 X 10*3/uL (140-440); RBC 3.31 X 10*6/uL (4.10-5.20); RDW 13.6 % (11.5-14.5)
[2024-09-13 09:00] VITALS: PULSE 100
--- NOTE | 2024-09-13 22:35 | P.PN ---
Subjective Progress Note Date: 09/13/24 This is a 54-year-old female who is seen today in room 261. The patient is postoperative day #1, status post T2-T7 decompression, with fusion. The patient was transferred to the intensive care unit, for further monitoring and management. She had surgery yesterday with Dr. Mchugh. Currently, she is resting comfortably in bed. When she first came to the intensive care unit, she was very lethargic and sleepy, and I placed her on BiPAP, with settings of 10/5, and 40%. She stayed on BiPAP till midnight. Currently, she is on 6 L nasal cannula. She still a bit sleepy. She is getting saline at 75 cc an hour. Current laboratory data includes a white count 13.4, hemoglobin 11, hematocrit 34.3, and a platelet count of 322,000. Sodium 134, potassium 3.8, chlorides 103, CO2 26, BUN 9, creatinine 0.6. Glucose was 97. Calcium 7.9. Magnesium was 1.6. The patient does have a cervical collar in place. Chest x-ray shows chronic emphysematous changes, without anything acute. The chest x-ray is unchanged compared to the x-ray done the day prior. Progress note dated September 11, 2024. 54-year-old female postop day #2, status post thoracic surgery, resting comfortably in the intensive care unit, room 261. She is on room air. She is getting saline at 75 cc an hour. Many of her psychiatric medications are reordered today. The patient has no specific complaints. She is a bit agitate d, and I was informed about this, by the nurse. Current labs include white count 11.3, hemoglobin 10.3, hematocrit 31.6, and a normal platelet count. Sodium 131, potassium 3.4, chlorides 99, CO2 27, BUN 7, creatinine 0.6. Glucose 77. Calcium 7.8. Magnesium 1.5. Chest x-ray shows no acute pulmonary process. On 09/12/2024, patient is being seen for a follow-up. Patient is currently postop day #3 following a T2/T7 decompression and fusion. Doing well. No significant respiratory distress. The patient is using incentive spirometer. She is on room air oxygen with a pulse ox of 95%. She remains on albuterol nebulized treatments. Pain is under adequate control. Adequate mobility in all 4 extremities. She is also on Symbicort as maintenance. No specific complaints. Labs from today shows a white cell count of 13, hemoglobin of 11.1 and a platelet count of 324. Sodium is at 138, potassium is at 4, BUN is at 6 with a creatinine of 0.5. No altered mentation. No other complaints otherwise for now. The output from the Hemovac is still bloody. On 09/13/2024, the patient remains clinically stable. No new complaints. She is having adequate pain control with [place]. She is also on Flexeril. She is working with physical therapy and Occupational Therapy. No signs of any stroke exacerbation his COPD remains an active is stable. Her white cell count is at family hemoglobin 11 and a platelet count of 369. Her oxygenation remained stable and the patient remains on oxygen at room air with a pulse ox of 90 to 91%.Surgical incision to the posterior cervicothoracic spine, Hemovac is present with 80 mL output overnight. The patient is postop day #4. Objective - Vital Signs Vital signs: Vital Signs Temp 98.3 F 09/13/24 07:46 Pulse 100 09/13/24 09:07 Resp 16 09/13/24 09:07 BP 142/94 09/13/24 07:46 Pulse Ox 90 L 09/13/24 07:46 FiO2 5 09/11/24 00:00 Intake & Output 09/13/24 09/13/24 09/14/24 06:59 18:59 06:59 Intake Total 1620 Output Total 40 Balance 1580 Intake: Oral 1620 Output: Drainage 40 Right Back 40 Other: # Voids 5 ABP, PAP, CO, CI - Last Documented Arterial Blood Pressure 91/57 - Exam No acute distress, awake and alert. Currently on room air. HEENT examination is grossly unremarkable. Mucous membranes are moist. No oral lesions. Neck supple. Full range of motion. No adenopathy thyromegaly or neck vein distention. Cervical collar in place. Cardiovascular examination reveals regular rhythm rate. S1-S2 normal. No S3 or S4. No discernible murmur noted. Lungs reveal clear breath sounds. Breath sounds are equal bilaterally. No adventitious lung sounds including wheezes rhonchi or crackles. Abdomen soft bowel sounds are heard. No masses or tenderness. Extremities are intact. No cyanosis clubbing or edema. Skin is without rash or lesion. Neurologic examination is brief but nonfocal. - Labs CBC & Chem 7: 09/13/24 03:55 09/12/24 03:03 Labs: Abnormal Lab Results - Last 24 Hours (Table) 09/13/24 Range/Units 03:55 RBC 3.31 L (4.10-5.20) X 10*6/uL Hgb 11.0 L (12.0-15.0) g/dL Hct 33.9 L (37.2-46.3) % MCV 102.4 H (80.0-97.0) FL MCH 33.2 H (27.0-32.0) pg MPV 9.4 L (9.5-12.2) FL Immature Gran # 0.05 H (0.00-0.04) X 10*3/uL Monocytes # 1.07 H (0.20-1.00) X 10*3/uL Eosinophils # 0.36 H (0.04-0.35) X 10*3/uL Assessment and Plan Plan: Postoperative day # 4, status post T2-T7 decompression with fusion. Adequate pain control. Adequate motor function of all [address] extremities. [address] still in place. The output is minimal History of COPD. History of CAD with previous myocardial infarction. History of hypertension. History of hyperlipidemia. History of congestive heart failure. History of gastroesophageal reflux disease. History of seizure disorder. History of hypothyroidism. History of irritable bowel syndrome. History of anxiety/depression/PTSD. Plan: Patient currently on room air oxygen Respiratory status is stable. Continue using the incentive spirometer Patient is on room air oxygen No signs of any respiratory insufficiency Hemovac to be removed today Continue current medication Increase mobility Discharge today
--- NOTE | 2024-09-14 10:00 | P.PN ---
Subjective Progress Note Date: 09/13/24 Patient is admitted for C2-T2 decompression and fusion surgery patient is extubated patient is requiring continuous of oxygen at this time probably will need BiPAP patient has history of COPD has not been taking deep breaths patient is quite a bit drowsy pain is well-controlled. 09/11/2024 Patient has had psychosis episodes last night patient was resumed on her antipsychotics which will can be restarted if needed for anxiety. Patient hyponatremia worsened with IV fluids IV fluids will be discontinued patient may have SIADH from pain/antipsychotic medications patient will be started on fluid restriction 1800/day 09/12/2024 Patient is seen in follow-up with no reported overnight issues. Per nursing staff patient reported she wanted to leave even if it was against medical advice today. Orthopedics monitoring as patient has continued increased output in the Hemovac. Hemoglobin is stable above 11 and will follow-up with repeat CBC in AM. Hyponatremia significantly improved and sodium is 138. Continue current regimen and okay to discontinue fluids. Encouraged incentive spirometer use and patient needs reinforcement and proper use of this equipment. Encouraged increase activity as tolerated with continued PT/OT therapy daily. 09/13/2024 Patient is seen in follow-up this morning currently walking around the room with her cervical neck collar intact and family at the bedside awaiting to be discharged. Patient is medically stable with no reports of chest pain, shortness of breath, nausea or vomiting. Patient pain management per orthopedics and is being scheduled for discharge. Patient will have outpatient rehab once cleared by orthopedics. Patient has been instructed to follow-up with primary care provider on discharge. Review of systems: Constitutional: No reports of fatigue, fever, or chills Cardiovascular: No reports of chest pain or palpitations Respiratory: No reports of shortness of breath or cough GI: No reports of nausea, vomiting, or diarrhea : No reports of dysuria or retention Neurovascular: No reports of weakness or numbness PHYSICAL EXAMINATION: GENERAL: The patient is awake and oriented x3, not in any acute distress. Up and walking in the room, well developed, thin built, appears older than stated age HEENT: Pupils are round and equally reacting to light. EOMI. No scleral icterus. No conjunctival pallor. Normocephalic, atraumatic. No pharyngeal erythema. No thyromegaly. CARDIOVASCULAR: S1 and S2 present. No murmurs, rubs, or gallops. PULMONARY: Chest is clear to auscultation, no wheezing or crackles. ABDOMEN: Soft, thin, nontender, nondistended, normoactive bowel sounds. No palpable organomegaly. MUSCULOSKELETAL: No joint swelling or deformity. EXTREMITIES: No cyanosis, clubbing, or pedal edema. NEUROLOGICAL: Gross neurological examination did not reveal any focal deficits. SKIN: No rashes. Assessment: -Cervical and thoracic degenerative disc disease and status post decompression and fusion surgery: Pain management as per primary service -Hyponatremia probably SIADH from pain, improved and sodium is 138 -Acute hypoxic respiratory failure requiring secondary to emphysema along with drowsiness:And patient not taking deep breaths. This is improved and patient is presently on room air -COPD without any acute exacerbation -History of DVT in the past presently not on any anticoagulation -Fibromyalgia -Hyperlipidemia -Hypertension -Seizure disorder -Hypothyroidism Plan: Continue with current regimen and DVT prophylaxis along with pain management and bowel regimen per orthopedics Continued drainage noted in the Hemovac with no worsening output and drain is being DC'd by orthopedics. CBC is stable above 11 Encourage incentive spirometer use and better instruction on how to properly use the device. Encouraged the patient to take home and continue using Continue with appropriate home medications and inhalers as needed Encouraged increase activity as tolerated and recommend PT/OT therapy Patient is medically stable once cleared by orthopedics and reports she is being discharged today. Patient has been instructed to follow-up with primary care provider on discharge Thank you kindly for this consultation. We will continue to follow with orthopedics during hospitalization. The impression and plan of care has been dictated by Kristina Wells, Nurse Practitioner as directed. Dr. Jayson MD I have performed a history and examination and MDM of this patient, discussed the same with the dictator, and agree with the dictator's assessment and plan as written ,documented as a scribe. Based on total visit time, I have performed more than 50% of the visit. Objective - Vital Signs Vital signs: Vital Signs Temp 98.3 F 09/13/24 07:46 Pulse 100 09/13/24 09:07 Resp 16 09/13/24 09:07 BP 142/94 09/13/24 07:46 Pulse Ox 90 L 09/13/24 07:46 FiO2 5 09/11/24 00:00 Intake & Output 09/12/24 09/13/24 09/13/24 18:59 06:59 18:59 Intake Total 1014 1620 Output Total 50 40 Balance 964 1580 Intake: Oral 1014 1620 Output: Drainage 50 40 Right Back 50 40 Other: # Voids 3 5 # Bowel Movements 1 ABP, PAP, CO, CI - Last Documented Arterial Blood Pressure 91/57 - Labs CBC & Chem 7: 09/13/24 03:55 09/12/24 03:03 Labs: Abnormal Lab Results - Last 24 Hours (Table) 09/12/24 09/13/24 Range/Units 09:49 03:55 WBC 13.7 H (3.8-10.6) k/uL RBC 3.20 L 3.31 L (3.80-5.40) m/uL Hgb 11.1 L 11.0 L (11.4-16.0) gm/dL Hct 33.2 L 33.9 L (34.0-46.0) % MCV 103.7 H 102.4 H (80.0-100.0) fL MCH 33.2 H (27.0-32.0) pg MPV 9.4 L (9.5-12.2) FL Immature Gran # 0.05 H (0.00-0.04) X 10*3/uL Monocytes # 1.07 H (0.20-1.00) X 10*3/uL Eosinophils # 0.36 H (0.04-0.35) X 10*3/uL
== END 2024-09-13 10:19 | disposition home or self-care (01) | DRG 304 ==
LOC: 2ORMAIN 08:48 → 2SICU 18:23 → 4SSUR 09-11 12:46
PROVIDERS: ADMIT Orthopaedic Surgery; ATTEND Orthopaedic Surgery
PROC: 0RG7071 Fusion of 2 to 7 Thoracic Vertebral Joints with Autologous Tissue Substitute, Posterior Approach, Posterior Column, Open Approach (ICD-10-PCS; 2024-09-09)
PROC: 0RG20AJ Fusion of 2 or more Cervical Vertebral Joints with Interbody Fusion Device, Posterior Approach, Anterior Column, Open Approach (ICD-10-PCS; 2024-09-09)
PROC: 0RG2071 Fusion of 2 or more Cervical Vertebral Joints with Autologous Tissue Substitute, Posterior Approach, Posterior Column, Open Approach (ICD-10-PCS; 2024-09-09)
PROC: 0RG40AJ Fusion of Cervicothoracic Vertebral Joint with Interbody Fusion Device, Posterior Approach, Anterior Column, Open Approach (ICD-10-PCS; 2024-09-09)
PROC: 0RG1071 Fusion of Cervical Vertebral Joint with Autologous Tissue Substitute, Posterior Approach, Posterior Column, Open Approach (ICD-10-PCS; 2024-09-09)
PROC: 00NX0ZZ Release Thoracic Spinal Cord, Open Approach (ICD-10-PCS; 2024-09-09)
PROC: 8E0WXBZ Computer Assisted Procedure of Trunk Region (ICD-10-PCS; 2024-09-09)
PROC: 0PS40ZZ Reposition Thoracic Vertebra, Open Approach (ICD-10-PCS; 2024-09-09)
PROC: 0RG70AJ Fusion of 2 to 7 Thoracic Vertebral Joints with Interbody Fusion Device, Posterior Approach, Anterior Column, Open Approach (ICD-10-PCS; principal; 2024-09-09 10:45)
PROC: 5A09357 Assistance with Respiratory Ventilation, Less than 24 Consecutive Hours, Continuous Positive Airway Pressure (ICD-10-PCS; 2024-09-10)
DX: S22.029A Unspecified fracture of second thoracic vertebra, initial encounter for closed fracture (principal); J96.01 Acute respiratory failure with hypoxia; E22.2 Syndrome of inappropriate secretion of antidiuretic hormone; M48.04 Spinal stenosis, thoracic region; M51.04 Intervertebral disc disorders with myelopathy, thoracic region; I11.0 Hypertensive heart disease with heart failure; I50.9 Heart failure, unspecified; G40.909 Epilepsy, unspecified, not intractable, without status epilepticus; J43.9 Emphysema, unspecified; E03.9 Hypothyroidism, unspecified; F32.A Depression, unspecified; M40.204 Unspecified kyphosis, thoracic region; M95.4 Acquired deformity of chest and rib; M47.812 Spondylosis without myelopathy or radiculopathy, cervical region; G47.9 Sleep disorder, unspecified; M40.202 Unspecified kyphosis, cervical region; M43.12 Spondylolisthesis, cervical region; M48.02 Spinal stenosis, cervical region; M51.34 Other intervertebral disc degeneration, thoracic region; M40.203 Unspecified kyphosis, cervicothoracic region; E78.5 Hyperlipidemia, unspecified; H91.90 Unspecified hearing loss, unspecified ear; F17.210 Nicotine dependence, cigarettes, uncomplicated; T43.505A Adverse effect of unspecified antipsychotics and neuroleptics, initial encounter; T40.605A Adverse effect of unspecified narcotics, initial encounter; M79.7 Fibromyalgia; F43.10 Post-traumatic stress disorder, unspecified; F41.9 Anxiety disorder, unspecified; I25.10 Atherosclerotic heart disease of native coronary artery without angina pectoris; W19.XXXA Unspecified fall, initial encounter; Y92.009 Unspecified place in unspecified non-institutional (private) residence as the place of occurrence of the external cause; Z79.51 Long term (current) use of inhaled steroids; Z79.890 Hormone replacement therapy; I25.2 Old myocardial infarction; Z86.718 Personal history of other venous thrombosis and embolism; Z79.899 Other long term (current) drug therapy
CPT/HCPCS: 71045; 72020; 72125; 72128; 80048; 83735; 83880; 84132; 85025; 85027; 94640; 94660

== ENCOUNTER 2024-10-24 14:33 | Emergency (ER) | payer OTHER ==
[2024-10-24 14:46] VITALS: BP 102/65; PULSE 114; RESP 18; TEMP 97.6
--- NOTE | 2024-10-24 14:59 | ED ---
Skin/Abscess/FB HPI - General Chief complaint: Wound/Laceration Stated complaint: post surgical complication Time Seen by Provider: 10/24/24 14:50 Source: patient, RN notes reviewed Mode of arrival: ambulatory Limitations: no limitations - History of Present Illness Initial comments: Quick Note: This is a 54-year-old female who presents to the emergency department for concerns of a surgical site infection. She had surgery on her thoracic spine with Dr. Mchugh on 10/11. States that the site has been infected over the last 2 weeks. She has been on antibiotics without improvement. Reports brown and green discharge. She has had chills but no fev ers. - Related Data Home Medications Medication Instructions Recorded Confirmed Asenapine Maleate [Saphris] 10 mg SUBLINGUAL BID 04/30/17 10/11/24 Sertraline [Zoloft] 200 mg PO QAM 04/30/17 10/11/24 Pantoprazole Sodium [Protonix] 40 mg PO BID 01/07/19 10/11/24 Topiramate [Trokendi Xr] 100 mg PO QAM 04/15/21 10/11/24 busPIRone HCl [Buspar] 15 mg PO TID 04/15/21 10/11/24 cloBAZam [Sympazan] 10 mg PO BID 04/15/21 10/11/24 hydrOXYzine pamoate [Vistaril] 50 mg PO TID 04/16/21 10/11/24 Albuterol Sulfate [Proair Hfa] 2 puff INHALATION RT-QID PRN 05/10/21 10/11/24 Prazosin HCl [Minipress] 2 mg PO BID@1700,2100 05/10/21 10/11/24 rOPINIRole HCL [Requip] 3 mg PO BID 05/10/21 10/11/24 Fluticasone/Umeclidin/Vilanter 1 puff INHALATION RT-DAILY 12/10/22 10/11/24 [Trelegy Ellipta 100-62.5-25] Sennosides [Senokot] 17.2 mg PO DAILY 12/10/22 10/11/24 Brivaracetam [Briviact] 100 mg PO BID 07/10/23 10/11/24 Budesonide [Pulmicort] 0.5 mg INHALATION RT-BID 07/27/23 10/11/24 Butalb/Acetaminophen/Caffeine 1 tab PO QID 07/27/23 10/11/24 [Fioricet 50-325-40] Cetirizine HCl [Zyrtec] 10 mg PO DAILY 07/27/23 10/11/24 Fluticasone Nasal [place] [Flonase 1 spray EA NOSTRIL DAILY 07/27/23 10/11/24 Nasal [place]] Furosemide [Lasix] 60 mg PO DAILY 07/27/23 10/11/24 Ipratropium-Albuterol Nebulize 3 ml INHALATION BID 07/27/23 10/11/24 [Duoneb 0.5 mg-3 mg/3 ml Soln] Levothyroxine Sodium [Synthroid] 88 mcg PO DAILY 07/27/23 10/11/24 Propranolol [Inderal] 20 mg PO BID 07/27/23 10/11/24 Acetaminophen-Codeine 300-30mg 1 tab PO TID PRN 09/05/24 10/11/24 [Tylenol w/codeine #3] Ibuprofen [Motrin] 800 mg PO TID 09/05/24 10/11/24 Previous Rx's Medication Instructions Recorded Diclofenac Sodium Gel [Voltaren 1% 100 gm TOPICAL BID 30 Days #1 each 10/19/23 Gel] Aspirin [Adult Low Dose Aspirin EC] 81 mg PO DAILY #14 tab 09/13/24 Cyclobenzaprine [Flexeril] 5 mg PO TID PRN #40 tablet 09/13/24 Gabapentin 800 mg PO TID #90 tab 09/13/24 HYDROcodone/APAP 10-325MG [[place] 1 tab PO Q4HR PRN #40 tab 09/13/24 10-325] Doxycycline [Vibramycin] 100 mg PO BID 14 Days #28 capsule 10/13/24 Nicotine 21Mg/24Hr Patch [Habitrol] 1 patch TRANSDERM DAILY patch 10/13/24 Allergies Allergy/AdvReac Type Severity Reaction Status Date / Time bee venom protein (honey bee) Allergy Anaphylaxis Verified 10/11/24 06:02 Review of Systems ROS Statement: Those systems with pertinent positive or pertinent negative responses have been documented in the HPI. ROS Other: All systems not noted in ROS Statement are negative. Past Medical History Past Medical History: Asthma, Heart Failure, COPD, Deep Vein Thrombosis (DVT), Eye Disorder, Fibromyalgia, GERD/Reflux, Hyperlipidemia, Hypertension, Memory Impairment, Myocardial Infarction (OR), Osteoarthritis (OA), Pneumonia, Seizure Disorder, Skin Disorder, Syncope, Thyroid Disorder Additional Past Medical History / Comment(s): IBS, colitis, restless legs flexed syndrome, daily migraines, Vitamin D deficiency, benign left breast mass, gastritis, short term memory loss. Vision - "sees an orange aura." BILAT CATARACTS Last seizure 09/22/2024, PT STATES THAT DR. VILLALBA IS AWARE"Legs are weak and balance is off." checked bone marrow for cancer. Pt has pressure ulcer over lower incision from surgery on 09/09/2024. States she had a blood clot in leg but not sure which leg or when Last Myocardial Infarction Date:: 2009 History of Any Multi-Drug Resistant Organisms: None Reported Past Surgical History: Back Surgery, Hysterectomy, Orthopedic Surgery Additional Past Surgical History / Comment(s): D&C, bilateral knee arthroscopy. Past Anesthesia/Blood Transfusion Reactions: No Reported Reaction Additional Past Anesthesia/Blood Transfusion Reaction / Comment(s): severe anxiety coming out of anesthesia,no hx blood transfusion Past Psychological History: Anxiety, Bipolar, Depression, PTSD Smoking Status: Current every day smoker Past Alcohol Use History: None Reported Past Drug Use History: Marijuana - Past Family History Father Family Medical History: Cancer Additional Family Medical History / Comment(s): Father of pancreatic cancer at the age of 62yrs. and lung cancer Mother Family Medical History: Congestive Heart Failure (CHF) Additional Family Medical History / Comment(s): Mother of CHF at the age of 60yrs. Brother(s) Additional Family Medical History / Comment(s): Patient had 1 brother that at 5 months of age. Sister(s) Family Medical History: Deep Vein Thrombosis (DVT) Additional Family Medical History / Comment(s): Patient has one sister with history of depression and bipolar. Patient has 2 half-sisters and one at age 26 from overdose. Patient does not have any children. General Exam - General Exam Comments Initial Comments: Visual Physical Exam Vital signs reviewed General: Well-appearing, nontoxic, no acute distress. Head: Normocephalic, atraumatic Eyes: PERRLA, EOMI ENT: Airway patent Chest: Nonlabored breathing Skin: No visual rash, normal skin tone Neuro: Alert and oriented 3 Musculoskeletal: No gross abnormalities Limitations: no limitations Course Vital Signs 10/24/24 14:41 Temperature 97.6 F Pulse Rate 114 H Respiratory 18 Rate Blood Pressure 102/65 O2 Sat by Pulse 95 Oximetry Medical Decision Making - Medical Decision Making I performed the QuickNote portion of this chart. Signed Zoraida Kaur PA-C. Patient left AMA from the waiting room prior to full evaluation as well as completion and review of any ordered testing. - Lab Data Result diagrams: 10/24/24 15:02 10/24/24 15:02 Lab Results 10/24/24 10/24/24 10/24/24 Range/Units 15:02 15:02 15:02 WBC 18.0 H (3.8-10.6) k/uL RBC 3.99 (3.80-5.40) m/uL Hgb 12.3 (11.4-16.0) gm/dL Hct 41.0 (34.0-46.0) % MCV 102.6 H (80.0-100.0) fL MCH 30.9 (25.0-35.0) pg MCHC 30.1 L (31.0-37.0) g/dL RDW 14.9 (11.5-15.5) % Plt Count 601 H (150-450) k/uL MPV 7.1 Neutrophils % 71 % Lymphocytes % 20 % Monocytes % 4 % Eosinophils % 3 % Basophils % 1 % Neutrophils # 12.8 H (1.3-7.7) k/uL Lymphocytes # 3.5 (1.0-4.8) k/uL Monocytes # 0.8 (0-1.0) k/uL Eosinophils # 0.5 (0-0.7) k/uL Basophils # 0.1 (0-0.2) k/uL Manual Slide Review Performed Hypochromasia Moderate Macrocytosis Slight Target Cells Present ESR 38 H (0-30) mm/Hr Sodium 137 (137-145) mmol/L Potassium 4.7 (3.5-5.1) mmol/L Chloride 102 (98-107) mmol/L Carbon Dioxide 27 (22-30) mmol/L Anion Gap 8 mmol/L BUN 35 H (7-17) mg/dL Creatinine 0.85 (0.52-1.04) mg/dL Est GFR (CKD-EPI)AfAm >90 (>60 ml/min/1.73 sqM) Est GFR (CKD-EPI)NonAf 79 (>60 ml/min/1.73 sqM) Glucose 106 H (74-99) mg/dL Plasma Lactic Acid Memo 1.4 (0.7-2.0) mmol/L Calcium 9.6 (8.4-10.2) mg/dL Total Bilirubin 0.5 (0.2-1.3) mg/dL AST 33 (14-36) U/L ALT 28 (4-34) U/L Alkaline Phosphatase 178 H (38-126) U/L C-Reactive Protein 3.3 H (<1.0) mg/dL Total Protein 6.7 (6.3-8.2) g/dL Albumin 3.4 L (3.5-5.0) g/dL Disposition Clinical Impression: Drainage from surgical wound Disposition: LEFT AGAINST MEDICAL ADVICE Referrals: Harpreet Ballard [Primary Care Provider] - 1-2 days
[2024-10-24 15:12] LABS: Basophils # (A) 0.1 k/uL (0-0.2); Basophils % (A) 1 %; Eosinophils # (A) 0.5 k/uL (0-0.7); Eosinophils % (A) 3 %; HGB 12.3 gm/dL (11.4-16.0); Hypochromasia Moderate; Lymphocytes # (A) 3.5 k/uL (1.0-4.8); Lymphocytes % (A) 20 %; MCH 30.9 pg (25.0-35.0); MCHC 30.1 g/dL (31.0-37.0); MCV 102.6 fL (80.0-100.0); Macrocytosis Slight; Mean Platelet Volume 7.1; Monocytes # (A) 0.8 k/uL (0-1.0); Monocytes % (A) 4 %; Neutrophils # (A) 12.8 k/uL (1.3-7.7); Neutrophils % (A) 71 %; Platelet Count 601 k/uL (150-450); RBC 3.99 m/uL (3.80-5.40); RDW 14.9 % (11.5-15.5)
[2024-10-24 16:10] LABS: Target Cells Present
[2024-10-24 16:19] LABS: ALT 28 U/L (4-34); African American GFR (CKD) >90 (>60 ml/min/1.73 sqM); Albumin 3.4 g/dL (3.5-5.0); Anion Gap 8 mmol/L; Blood Urea Nitrogen 35 mg/dL (7-17); C Reactive Protein 3.3 mg/dL (<1.0); Calcium 9.6 mg/dL (8.4-10.2); Carbon Dioxide 27 mmol/L (22-30); Chloride 102 mmol/L (98-107); Glucose 106 mg/dL (74-99); Non-African American GFR(CKD) 79 (>60 ml/min/1.73 sqM); Sodium 137 mmol/L (137-145); Total Bilirubin 0.5 mg/dL (0.2-1.3); Total Protein 6.7 g/dL (6.3-8.2)
[2024-10-24 16:25] LABS: AST 33 U/L (14-36); Alkaline Phosphatase 178 U/L (38-126); Potassium 4.7 mmol/L (3.5-5.1)
[2024-10-25 01:52] LABS: Erythrocyte Sedimentation Rate 38 mm/Hr (0-30)
== END 2024-10-24 16:23 | disposition left against medical advice (07) ==
LOC: EC 14:33
DX: T81.89XA Other complications of procedures, not elsewhere classified, initial encounter (principal); F17.200 Nicotine dependence, unspecified, uncomplicated; Z91.030 Bee allergy status; Z53.29 Procedure and treatment not carried out because of patient's decision for other reasons
CPT/HCPCS: 36415; 80053; 83605; 85025; 85652; 86140; 99283

== ENCOUNTER 2024-10-25 11:41 | Inpatient (IN) | payer OTHER ==
--- NOTE | 2024-10-25 12:42 | ED ---
Back Pain HPI - General Chief Complaint: Back Pain/Injury Stated Complaint: Recheck-Back issue Time Seen by Provider: 10/25/24 11:42 Source: patient, RN notes reviewed Mode of arrival: ambulatory Limitations: no limitations - History of Present Illness Initial Comments: This is a 54-year-old female who presents to the emergency department for back pain. Patient had surgery on her thoracic spine with Dr. Mchugh on 10/11. States that she has been dealing with a surgical site infection for the last couple of weeks and has been on 2 rounds of antibiotics. Describes a brown and green drainage and states that the site is increasingly painful. She had come here yesterday but ended up leaving AMA from the waiting room due to the prolonged wait time. States that she contacted Dr. Mchugh's office and spoke with the telephonic rn, who advised she come here for evaluation. Denies any fevers. - Related Data Home Medications Medication Instructions Recorded Confirmed Asenapine Maleate [Saphris] 10 mg SUBLINGUAL BID 04/30/17 10/25/24 Sertraline [Zoloft] 200 mg PO DAILY 04/30/17 10/25/24 Pantoprazole Sodium [Protonix] 40 mg PO BID 01/07/19 10/25/24 Topiramate [Trokendi Xr] 100 mg PO DAILY 04/15/21 10/25/24 cloBAZam [Sympazan] 10 mg PO BID 04/15/21 10/25/24 hydrOXYzine pamoate [Vistaril] 50 mg PO TID PRN 04/16/21 10/25/24 Albuterol Sulfate [Proair Hfa] 2 puff INHALATION RT-QID PRN 05/10/21 10/25/24 Prazosin HCl [Minipress] 2 mg PO BID@1700,2100 05/10/21 10/25/24 rOPINIRole HCL [Requip] 2 mg PO BID 05/10/21 10/25/24 Fluticasone/Umeclidin/Vilanter 1 puff INHALATION RT-DAILY 12/10/22 10/25/24 [Trelegy Ellipta 100-62.5-25] Brivaracetam [Briviact] 100 mg PO BID 07/10/23 10/25/24 Budesonide [Pulmicort] 0.5 mg INHALATION RT-BID PRN 07/27/23 10/25/24 Butalb/Acetaminophen/Caffeine 1 tab PO Q6H PRN 07/27/23 10/25/24 [Fioricet 50-325-40] Cetirizine HCl [Zyrtec] 10 mg PO DAILY 07/27/23 10/25/24 Fluticasone Nasal [place] [Flonase 1 spray EA NOSTRIL DAILY 07/27/23 10/25/24 Nasal [place]] Ipratropium-Albuterol Nebulize 3 ml INHALATION RT-QID 07/27/23 10/25/24 [Duoneb 0.5 mg-3 mg/3 ml Soln] Levothyroxine Sodium [Synthroid] 88 mcg PO DAILY 07/27/23 10/25/24 Propranolol [Inderal] 20 mg PO BID 07/27/23 10/25/24 Acetaminophen-Codeine 300-30mg 1 tab PO TID PRN 09/05/24 10/25/24 [Tylenol w/codeine #3] Acetaminophen Tab [Tylenol Tab] 500 mg PO Q6HR PRN 10/25/24 10/25/24 Albuterol Nebulized [Ventolin 2.5 mg INHALATION RT-BID 10/25/24 10/25/24 Nebulized] Cholecalciferol (Vitamin D3) 50 mcg PO DAILY 10/25/24 10/25/24 [Vitamin D3 (50 Mcg = 2000 Iu)] Cyclobenzaprine [Flexeril] 10 mg PO BID 10/25/24 10/25/24 Furosemide [Lasix] 40 mg PO DAILY 10/25/24 10/25/24 HYDROcodone/APAP 10-325MG [[place] 1 tab PO Q6H PRN 10/25/24 10/25/24 10-325] Ibuprofen [Motrin] 800 mg PO Q8H PRN 10/25/24 10/25/24 Montelukast [Singulair] 10 mg PO HS 10/25/24 10/25/24 Multivitamins, Thera [Multivitamin 1 tab PO DAILY 10/25/24 10/25/24 (formulary)] busPIRone HCL 15 mg PO TID 10/25/24 10/25/24 rOPINIRole HCL [Requip] 1 mg PO BID 10/25/24 10/25/24 Previous Rx's Medication Instructions Recorded Gabapentin 800 mg PO TID #90 tab 09/13/24 Allergies Allergy/AdvReac Type Severity Reaction Status Date / Time bee venom protein (honey bee) Allergy Anaphylaxis Verified 10/25/24 14:46 Review of Systems ROS Statement: Those systems with pertinent positive or pertinent negative responses have been documented in the HPI. ROS Other: All systems not noted in ROS Statement are negative. Past Medical History Past Medical History: Asthma, Heart Failure, COPD, Deep Vein Thrombosis (DVT), Eye Disorder, Fibromyalgia, GERD/Reflux, Hyperlipidemia, Hypertension, Memory I mpairment, Myocardial Infarction ([place]), Osteoarthritis (OA), Pneumonia, Seizure Disorder, Skin Disorder, Syncope, Thyroid Disorder Additional Past Medical History / Comment(s): IBS, colitis, restless legs flexed syndrome, daily migraines, Vitamin D deficiency, benign left breast mass, gastritis, short term memory loss. Vision - "sees an orange aura." BILAT CATARACTS Last seizure 09/22/2024, PT STATES THAT DR. VILLALBA IS AWARE"Legs are weak and balance is off." checked bone marrow for cancer. Pt has pressure ulcer over lower incision from surgery on 09/09/2024. States she had a blood clot in leg but not sure which leg or when Last Myocardial Infarction Date:: 2009 History of Any Multi-Drug Resistant Organisms: None Reported Past Surgical History: Back Surgery, Hysterectomy, Orthopedic Surgery Additional Past Surgical History / Comment(s): D&C, bilateral knee arthroscopy. Past Anesthesia/Blood Transfusion Reactions: No Reported Reaction Additional Past Anesthesia/Blood Transfusion Reaction / Comment(s): severe anxiety coming out of anesthesia,no hx blood transfusion Past Psychological History: Anxiety, Bipolar, Depression, PTSD Smoking Status: Current every day smoker Past Alcohol Use History: None Reported Past Drug Use History: Marijuana - Past Family History Father Family Medical History: Cancer Additional Family Medical History / Comment(s): Father of pancreatic cancer at the age of 62yrs. and lung cancer Mother Family Medical History: Congestive Heart Failure (CHF) Additional Family Medical History / Comment(s): Mother of CHF at the age of 60yrs. Brother(s) Additional Family Medical History / Comment(s): Patient had 1 brother that at 5 months of age. Sister(s) Family Medical History: Deep Vein Thrombosis (DVT) Additional Family Medical History / Comment(s): Patient has one sister with history of depression and bipolar. Patient has 2 half-sisters and one at age 26 from overdose. Patient does not have any children. General Exam Limitations: no limitations General appearance: alert, in no apparent distress Head exam: Present: atraumatic, normocephalic, normal inspection Respiratory exam: Present: normal lung sounds bilaterally. Absent: respiratory distress, wheezes, rales, rhonchi, stridor Cardiovascular Exam: Present: regular rate, normal rhythm Back exam: Present: other (Wound dehiscence to the incision over the thoracic spine with some drainage on the bandage.) Neurological exam: Present: alert, oriented X3, CN II-XII intact Psychiatric exam: Present: normal affect, normal mood Course Vital Signs 10/25/24 10/25/24 10/25/24 11:55 14:41 18:05 Temperature 97.3 F L Pulse Rate 103 H 101 H 106 H Respiratory 17 18 16 Rate Blood Pressure 93/66 101/75 115/74 O2 Sat by Pulse 97 97 98 Oximetry 10/25/24 18:11 Temperature Pulse Rate 97 Respiratory 16 Rate Blood Pressure 115/74 O2 Sat by Pulse 98 Oximetry Medical Decision Making - Medical Decision Making This is a 54-year-old female who presents to the emergency department for back pain and concerns of infection. Was pt. sent in by a medical professional or institution? @ -No Did you speak to anyone other than the patient for history? @ -No Did you review nursing and triage notes? @ -Yes, and I agree, it is accurate with regards to the patient's symptoms. Were old charts reviewed? @ -Lab work done yesterday demonstrating leukocytosis with white blood cell count of 18. ESR of 38 and CRP of 3.3. Differential Diagnosis? @ -Differential Back Pain: Strain, zoster, cauda equina syndrome, epidural abscess, vertebral osteomyelitis, discitis, fracture, subluxation, disc herniation, DJD, spinal stenosis, dissection, AAA, pancreatitis, peptic ulcer disease, pyelonephritis, kidney stone, this is not meant to be an all-inclusive list. EKG interpreted by me (3pts min.)? @ -EKG interpreted by me demonstrating the following: Sinus rhythm. Ventricular rate 92 bpm, DE interval 145 ms, QRS duration 83 ms, QTc 345 ms. X-rays interpreted by me (1pt min.)? @ -Not obtained CT interpreted by me (1pt min.)? @ -Pending U/S interpreted by me (1pt. min.)? @ -Not obtained What testing was considered but not performed? (CT, X-rays, U/S, labs)? Why? @ -None What meds were considered but not given? Why? @ -None Did you discuss the management of the patient with other professionals? @ -Yes, Dr. Mchugh, orthopedics, who advised that the patient could be admitted to him with antibiotics and we could proceed with a CT scan as well. Did you reconcile home meds? @ -No Was smoking cessation discussed for >3mins.? @ -No Was critical care preformed (if so, how long)? @ -No Were there social determinants of health that impacted care today? How? (Homelessness, low income, unemployed, alcoholism, drug addiction, transpo rtation, low edu. Level, literacy, decrease access to med. care, alf, rehab)? @ -No Was there de-escalation of care discussed even if they declined? (Discuss DNR or withdrawal of care, Hospice)? @ -No What co-morbidities impacted this encounter? (DM, HTN, Smoking, COPD, CAD, Cancer, CVA, Hep., AIDS, mental health diagnosis, sleep apnea, morbid obesity)? @ -Smoking, osteoarthritis Was patient admitted / discharged? @ -Admitted. Lab work demonstrates leukocytosis with a white blood cell count of 12.2. This is decreased from yesterday when it was 18. CRP elevated at 4.3. On exam there was dehiscence to the surgical incision and she had drainage on her bandage. Case discussed with Dr. Mchugh, who advised the patient be admitted to himself and we start her on IV antibiotics with at least vancomycin. Blood cultures were obtained and she was started on vancomycin and cefepime for broad-spectrum coverage. CT scan of the thoracic spine ordered per orthopedics with results pending at the time of admission. Medicine consulted for medical management. Case discussed with ED attending Dr. Sandhu. Undiagnosed new problem with uncertain prognosis? @ -None Drug Therapy requiring intensive monitoring for toxicity (Heparin, Nitro, Insulin, Cardizem)? @ -None Were any procedures done? @ -None Diagnosis/symptom? @ -Postoperative infection, failure of outpatient treatment Acute, or Chronic, or Acute on Chronic? @ -Acute Uncomplicated (without systemic symptoms) or Complicated (systemic symptoms)? @ -Complicated Side effects of treatment? @ -None Exacerbation, Progression, or Severe Exacerbation] @ -Not applicable Poses a threat to life or bodily function? @ -Yes, can lead to worsening infection - Lab Data Result diagrams: 10/25/24 13:03 10/25/24 13:03 Lab Results 10/25/24 10/25/24 10/25/24 Range/Units 13:03 13:03 13:03 WBC 12.2 H (3.8-10.6) k/uL RBC 3.77 L (3.80-5.40) m/uL Hgb 12.0 (11.4-16.0) gm/dL Hct 38.4 (34.0-46.0) % MCV 101.9 H (80.0-100.0) fL MCH 31.9 (25.0-35.0) pg MCHC 31.3 (31.0-37.0) g/dL RDW 15.3 (11.5-15.5) % Plt Count 664 H (150-450) k/uL MPV 7.6 Neutrophils % 57 % Lymphocytes % 36 % Monocytes % 2 % Eosinophils % 2 % Basophils % 1 % Neutrophils # 7.0 (1.3-7.7) k/uL Lymphocytes # 4.4 (1.0-4.8) k/uL Monocytes # 0.2 (0-1.0) k/uL Eosinophils # 0.3 (0-0.7) k/uL Basophils # 0.1 (0-0.2) k/uL Manual Slide Review Performed Hypochromasia Slight Macrocytosis Slight Sodium 135 L (137-145) mmol/L Potassium 4.4 (3.5-5.1) mmol/L Chloride 102 (98-107) mmol/L Carbon Dioxide 25 (22-30) mmol/L Anion Gap 8 mmol/L BUN 34 H (7-17) mg/dL Creatinine 0.84 (0.52-1.04) mg/dL Est GFR (CKD-EPI)AfAm >90 (>60 ml/min/1.73 sqM) Est GFR (CKD-EPI)NonAf 80 (>60 ml/min/1.73 sqM) Glucose 123 H (74-99) mg/dL Plasma Lactic Acid Memo 1.4 (0.7-2.0) mmol/L Calcium 9.3 (8.4-10.2) mg/dL Total Bilirubin 0.5 (0.2-1.3) mg/dL AST 32 (14-36) U/L ALT 22 (4-34) U/L Alkaline Phosphatase 169 H (38-126) U/L C-Reactive Protein 4.3 H (<1.0) mg/dL NT-Pro-B Natriuret Pep 211 pg/mL Total Protein 6.4 (6.3-8.2) g/dL Albumin 3.1 L (3.5-5.0) g/dL - Radiology Data Radiology results: report reviewed, image reviewed Disposition Clinical Impression: Postoperative infection, Failure of outpatient treatment Disposition: ADMITTED IP TO THIS HOSP
[2024-10-25 13:14] LABS: Basophils # (A) 0.1 k/uL (0-0.2); Basophils % (A) 1 %; Eosinophils # (A) 0.3 k/uL (0-0.7); Eosinophils % (A) 2 %; HCT 38.4 % (34.0-46.0); Hypochromasia Slight; Lymphocytes # (A) 4.4 k/uL (1.0-4.8); Lymphocytes % (A) 36 %; MCH 31.9 pg (25.0-35.0); MCHC 31.3 g/dL (31.0-37.0); MCV 101.9 fL (80.0-100.0); Macrocytosis Slight; Mean Platelet Volume 7.6; Monocytes # (A) 0.2 k/uL (0-1.0); Monocytes % (A) 2 %; Neutrophils % (A) 57 %; Platelet Count 664 k/uL (150-450); RBC 3.77 m/uL (3.80-5.40); RDW 15.3 % (11.5-15.5); WBC 12.2 k/uL (3.8-10.6)
[2024-10-25 13:31] LABS: ALT 22 U/L (4-34); African American GFR (CKD) >90 (>60 ml/min/1.73 sqM); Albumin 3.1 g/dL (3.5-5.0); Anion Gap 8 mmol/L; Blood Urea Nitrogen 34 mg/dL (7-17); C Reactive Protein 4.3 mg/dL (<1.0); Calcium 9.3 mg/dL (8.4-10.2); Carbon Dioxide 25 mmol/L (22-30); Chloride 102 mmol/L (98-107); Glucose 123 mg/dL (74-99); Non-African American GFR(CKD) 80 (>60 ml/min/1.73 sqM); Sodium 135 mmol/L (137-145); Total Bilirubin 0.5 mg/dL (0.2-1.3); Total Protein 6.4 g/dL (6.3-8.2)
[2024-10-25] MEDS ORDERED: VANCOMYCIN IV PER PHARMACY 1 EACH MISC MISCELLANE PRN (13:34)
[2024-10-25 13:37] LABS: AST 32 U/L (14-36); Alkaline Phosphatase 169 U/L (38-126); NT-Pro-B-Type Natriuretic Pept 211 pg/mL; Potassium 4.4 mmol/L (3.5-5.1)
[2024-10-25] MEDS ORDERED: NALOXONE 0.4 MG/ML 1 ML VIAL IV PRN (13:53)
[2024-10-25] MEDS: SODIUM CHLORIDE 0.9% 1,000 ML IV STA (14:39)
[2024-10-25] MEDS: CEFEPIME 1 GM in SODIUM CHLORIDE 0.9% 50 ML IVPB ONE (14:39)
[2024-10-25] MEDS: SODIUM CHLORIDE 0.9% 500 ML 500 ML IV STA ×2 (14:40→16:45)
[2024-10-25] MEDS: VANCOMYCIN 750 MG in SODIUM CHLORIDE 0.9% 250 ML IVPB SCH (16:09)
--- NOTE | 2024-10-25 16:33 | CT ---
CT thoracic spine with and without contrast. HISTORY: Back pain following surgery. COMPARISON: CT thoracic spine dated 10/12/2024 TECHNIQUE: Multiple axial images are obtained through the thorax before and after the uneventful admi nistration of nonionic IV contrast material. FINDINGS: Again demonstrated are extensive postsurgical changes in the lower cervical spine, upper thoracic spi ne and thoracolumbar junction with posterior metallic fusion with bridging metallic rods and pedicle screws. There is methylmethacrylate glue in multiple thoracic and upper lumbar segments. There is a stable mild to moderate compression fracture of T8 but there is increasing lucency in the T8 vertebral segment raising the question of osteomyelitis. In addition, there is a minimally displac ed fracture of the left transverse process of T8 There are no paraspinal soft tissue fluid collections to suggest abscess. The exam is somewhat limite d due to marked metallic artifact. There is no definite evidence of compromise of the spinal canal th roughout the thoracic region. IMPRESSION: Stable moderate compression fracture of T8 however there is increased lucency or demineralization of the T8 vertebral segment raising the question of acute osteomyelitis. There is also a minimally displ aced fracture of the left transverse process of T8. There are no paraspinal fluid collections to sugg est abscess. [facility], , 10/25/2024 4:30 PM
[2024-10-25] MEDS ORDERED: BUTALB/APAP/CAFF 50-325-40MG TAB PO PRN (17:29)
[2024-10-25] MEDS ORDERED: BUDESONIDE 0.5 MG/2 ML NEBU INHALATION PRN (17:29)
[2024-10-25] MEDS ORDERED: ALBUTEROL NEBULIZED 2.5 MG/3 ML INHALATION PRN (17:29)
[2024-10-25] MEDS ORDERED: hydrOXYzine pamoate 25 MG CAP PO PRN (17:29)
[2024-10-25 19:06] LABS: Partial Thromboplastin Time 27.8 sec (22.0-30.0); Prothrombin Time 10.9 sec (10.0-12.5)
[2024-10-25 19:34] LABS: Erythrocyte Sedimentation Rate 49 mm/Hr (0-30)
[2024-10-25] MEDS ORDERED: ALBUTEROL NEBULIZED 2.5 MG/3 ML INHALATION SCH (20:00)
[2024-10-25] MEDS: IPRATROPIUM-ALBUTEROL 3 ML NEB INHALATION SCH (20:18)
[2024-10-25] MEDS: GABAPENTIN 400 MG CAP PO SCH (20:45)
[2024-10-25] MEDS: CYCLOBENZAPRINE 10 MG TAB PO SCH (20:46)
[2024-10-25] MEDS: MONTELUKAST 10 MG TAB PO SCH (20:46)
[2024-10-25] MEDS ORDERED: PANTOPRAZOLE 40 MG TABLET PO SCH (21:00)
[2024-10-25] MEDS: PROPRANOLOL 20 MG TAB PO SCH (21:23)
[2024-10-25] MEDS: PRAZOSIN 1 MG CAP PO SCH (21:23)
[2024-10-25] MEDS: CEFEPIME 1 GM in SODIUM CHLORIDE 0.9% 50 ML IVPB SCH (21:23)
[2024-10-25] MEDS: busPIRone HCl 5 MG TAB PO SCH (21:23)
[2024-10-25] MEDS: NON FORMULARY DRUG (Brivaracetam [Briviact] 100 MG Tablet) PO SCH ×2 (22:25→23:45)
[2024-10-25] MEDS: CLOBAZAM 10 MG PO SCH ×2 (22:25→23:46)
[2024-10-26] MEDS: HYDROmorphone 1 MG/ML 1 ML SYRINGE IVP PRN (00:49)
[2024-10-26] MEDS: LEVOTHYROXINE 88 MCG TAB PO SCH (05:54)
[2024-10-26] MEDS: SERTRALINE 100 MG TAB PO SCH (08:14)
[2024-10-26] MEDS: LORATADINE 10 MG TAB PO SCH (08:15)
[2024-10-26] MEDS: MULTIVITAMINS, THERA 1 EACH TAB PO SCH (08:15)
[2024-10-26] MEDS: TOPIRAMATE 25 MG TAB PO SCH (08:15)
[2024-10-26] MEDS: PANTOPRAZOLE 40 MG TABLET PO SCH (08:15)
[2024-10-26] MEDS: FLUTICASONE NASAL 50MCG/SPRAY 16GM BTL EA NOSTRIL SCH (08:16)
[2024-10-26] MEDS: CHOLECALCIFEROL 25 MCG (1000 IU) TABLET PO SCH (08:16)
[2024-10-26] MEDS ORDERED: PANTOPRAZOLE 40 MG/10 ML VIAL IV SCH (09:00)
[2024-10-26] MEDS: SYMBICORT 160-4.5 MCG INHALER INHALATION SCH (09:45)
[2024-10-26] MEDS: HYDROmorphone 0.5 MG/0.5 ML SYRINGE IVP PRN (09:46)
--- NOTE | 2024-10-26 14:10 | P.HPOR ---
History of Present Illness H&P Date: 10/26/24 Chief Complaint: back pain Patient is a 54-year-old female who presented to the emergency department last night due to back pain. Patient had surgery on her thoracic spine performed Dr. Mchugh on 09/09/2024 and has been dealing with a surgical site infection over the last couple weeks has been on a couple different rounds of antibiotics. Patient says there has been a brown and green drainage from the incision. For C2-T7 decompression, fusion, fracture reduction and realignment. Patient has been experiencing severe thoracic back pain and has wound dehiscence due to pressure ulceration from the lower aspect of the incision site attributed to the fracture and deformity. Surgical intervention was planned when patient last presented to the hospital but patient did leave AGAINST MEDICAL ADVICE. Surgery has been scheduled for tomorrow, , 10/27/2024 - Wound revision and washout with primary closure, T8 kyphoplasty. The patient does have severe pain with motion, standing, sitting and palpation over the T8 region. Patient is understanding that she needs to be n.p.o. at midnight tonight. Patient denies any other issues at this time. Past Medical History Past Medical History: Asthma, Heart Failure, COPD, Deep Vein Thrombosis (DVT), Eye Disorder, Fibromyalgia, GERD/Reflux, Hyperlipidemia, Hypertension, Memory Impairment, Myocardial Infarction ([place]), Osteoarthritis (OA), Pneumonia, Seizure Disorder, Skin Disorder, Syncope, Thyroid Disorder Additional Past Medical History / Comment(s): IBS, colitis, restless legs flexed syndrome, daily migraines, Vitamin D deficiency, benign left breast mass, gastritis, short term memory loss. Vision - "sees an orange aura." BILAT CATARACTS Last seizure 09/22/2024, PT STATES THAT DR. VILLALBA IS AWARE"Legs are weak and balance is off." checked bone marrow for cancer. Pt has pressure ulcer over lower incision from surgery on 09/09/2024. States she had a blood clot in leg but not sure which leg or when Last Myocardial Infarction Date:: 2009 History of Any Multi-Drug Resistant Organisms: None Reported Past Surgical History: Back Surgery, Hysterectomy, Orthopedic Surgery Additional Past Surgical History / Comment(s): D&C, bilateral knee arthroscopy. Past Anesthesia/Blood Transfusion Reactions: No Reported Reaction Additional Past Anesthesia/Blood Transfusion Reaction / Comment(s): severe an xiety coming out of anesthesia,no hx blood transfusion Past Psychological History: Anxiety, Bipolar, Depression, PTSD Smoking Status: Current every day smoker Past Alcohol Use History: None Reported Past Drug Use History: Marijuana - Past Family History Father Family Medical History: Cancer Additional Family Medical History / Comment(s): Father of pancreatic cancer at the age of 62yrs. and lung cancer Mother Family Medical History: Congestive Heart Failure (CHF) Additional Family Medical History / Comment(s): Mother of CHF at the age of 60yrs. Brother(s) Additional Family Medical History / Comment(s): Patient had 1 brother that at 5 months of age. Sister(s) Family Medical History: Deep Vein Thrombosis (DVT) Additional Family Medical History / Comment(s): Patient has one sister with history of depression and bipolar. Patient has 2 half-sisters and one at age 26 from overdose. Patient does not have any children. Medications and Allergies Home Medications Medication Instructions Recorded Confirmed Type Asenapine Maleate [Saphris] 10 mg SUBLINGUAL BID 04/30/17 10/25/24 History Sertraline [Zoloft] 200 mg PO DAILY 04/30/17 10/25/24 History Pantoprazole Sodium [Protonix] 40 mg PO BID 01/07/19 10/25/24 History Topiramate [Trokendi Xr] 100 mg PO DAILY 04/15/21 10/25/24 History cloBAZam [Sympazan] 10 mg PO BID 04/15/21 10/25/24 History hydrOXYzine pamoate [Vistaril] 50 mg PO TID PRN 04/16/21 10/25/24 History Albuterol Sulfate [Proair Hfa] 2 puff INHALATION RT-QID PRN 05/10/21 10/25/24 History Prazosin HCl [Minipress] 2 mg PO BID@1700,2100 05/10/21 10/25/24 History rOPINIRole HCL [Requip] 2 mg PO BID 05/10/21 10/25/24 History Fluticasone/Umeclidin/Vilanter 1 puff INHALATION RT-DAILY 12/10/22 10/25/24 History [Trelegy Ellipta 100-62.5-25] Brivaracetam [Briviact] 100 mg PO BID 07/10/23 10/25/24 History Budesonide [Pulmicort] 0.5 mg INHALATION RT-BID PRN 07/27/23 10/25/24 History Butalb/Acetaminophen/Caffeine 1 tab PO Q6H PRN 07/27/23 10/25/24 History [Fioricet 50-325-40] Cetirizine HCl [Zyrtec] 10 mg PO DAILY 07/27/23 10/25/24 History Fluticasone Nasal [place] [Flonase 1 spray EA NOSTRIL DAILY 07/27/23 10/25/24 History Nasal [place]] Ipratropium-Albuterol Nebulize 3 ml INHALATION RT-QID 07/27/23 10/25/24 History [Duoneb 0.5 mg-3 mg/3 ml Soln] Levothyroxine Sodium [Synthroid] 88 mcg PO DAILY 07/27/23 10/25/24 History Propranolol [Inderal] 20 mg PO BID 07/27/23 10/25/24 History Acetaminophen-Codeine 300-30mg 1 tab PO TID PRN 09/05/24 10/25/24 History [Tylenol w/codeine #3] Gabapentin 800 mg PO TID #90 tab 09/13/24 10/25/24 Rx Acetaminophen Tab [Tylenol Tab] 500 mg PO Q6HR PRN 10/25/24 10/25/24 History Albuterol Nebulized [Ventolin 2.5 mg INHALATION RT-BID 10/25/24 10/25/24 History Nebulized] Cholecalciferol (Vitamin D3) 50 mcg PO DAILY 10/25/24 10/25/24 History [Vitamin D3 (50 Mcg = 2000 Iu)] Cyclobenzaprine [Flexeril] 10 mg PO BID 10/25/24 10/25/24 History Furosemide [Lasix] 40 mg PO DAILY 10/25/24 10/25/24 History HYDROcodone/APAP 10-325MG [[place] 1 tab PO Q6H PRN 10/25/24 10/25/24 History 10-325] Ibuprofen [Motrin] 800 mg PO Q8H PRN 10/25/24 10/25/24 History Montelukast [Singulair] 10 mg PO HS 10/25/24 10/25/24 History Multivitamins, Thera [Multivitamin 1 tab PO DAILY 10/25/24 10/25/24 History (formulary)] busPIRone HCL 15 mg PO TID 10/25/24 10/25/24 History rOPINIRole HCL [Requip] 1 mg PO BID 10/25/24 10/25/24 History Allergies Allergy/AdvReac Type Severity Reaction Status Date / Time bee venom protein (honey bee) Allergy Anaphylaxis Verified 10/25/24 14:46 Physical Examination Superior and midportion aspect of the incision appears to be healing well. Negative for any drainage. There inferior portion of the incision is ulcerated with some purulent discharge. Sensation is equal, symmetric, by intact throughout the upper and lower extremities on exam. Patient does have tenderne ss palpation near the open portion of the incision as well as along T8 and T9 area at midline. Nontender on rest of exam. Patient does have good range of motion on exam. 4/5 in all major motor groups in bilateral upper and lower extremities. Radial pulse intact, 2+ bilaterally. Negative Homans bilaterally. Cap refill under 3 seconds in digits of upper extremities. Negative clonus bilaterally. Negative Suhas bilaterally. Results - Labs Labs: Abnormal Lab Results - Last 24 Hours (Table) 10/25/24 10/25/24 Range/Units 13:03 13:03 WBC 12.2 H (3.8-10.6) k/uL RBC 3.77 L (3.80-5.40) m/uL MCV 101.9 H (80.0-100.0) fL Plt Count 664 H (150-450) k/uL ESR 49 H (0-30) mm/Hr Sodium 135 L (137-145) mmol/L BUN 34 H (7-17) mg/dL Glucose 123 H (74-99) mg/dL Alkaline Phosphatase 169 H (38-126) U/L C-Reactive Protein 4.3 H (<1.0) mg/dL Albumin 3.1 L (3.5-5.0) g/dL H & H 10/25/24 Range/Units 13:03 Hgb 12.0 (11.4-16.0) gm/dL Hct 38.4 (34.0-46.0) % Coagulation 10/25/24 Range/Units 18:44 INR 1.0 (<1.2) Result Diagrams: 10/25/24 13:03 10/25/24 13:03 Assessment and Plan Assessment: 1.5 week s/p revision C2-T8 decompression and fusion for T1-2 fracture with open treatment fractures and kyphosis correction. 2.T8 burst compression fracture T8 3.Thoracic back pain, severe, acute 4. Wound dehiscense due to pressure ulcerization Plan: 1.s/p revision C2-T8 decompression and fusion for T1-2 fracture with open treatment fractures and kyphosis correction; T8 burst compression fracture; Thoracic back pain, severe, acute; Wound dehiscense due to pressure ulcerization -I discussed the importance with the patient and the need of surgical in tervention due to open wound. Patient is agreeable with the plan surgical intervention has been scheduled for tomorrow, , 10/27/2024 Wound revision and washout with primary closure, T8 kyphoplasty. Patient to be n.p.o. at midnight tonight. Pain medication as needed. Weightbearing as tolerated with walker. Keep soft c-collar on at all times. We will continue to follow patient during stay in hospital. 2. Appreciate medical management 3. Pain management - gabapentin; flexeril 4. DVT prophylaxis -withhold blood thinners at this time. ANNETTE vuonge 5. GI prophylaxis - protonix 6. PT/OT -weightbearing as tolerated with walker and soft c-collar on at all times 7. Encourage incentive spirometer use Time with Patient: Less than 30
--- NOTE | 2024-10-27 05:18 | P.CONS ---
History of Present Illness - Reason for Consult Consult date: 10/27/24 Medical management, failure of outpatient abx, previous decompression - History of Present Illness This is a pleasant 54-year-old female who presented to the emergency department and admitted under orthopedic services for failure of outpatient therapy with oral antibiotics from previous decompression with fusion and kyphoplasty of her thoracic spine that was done at the beginning of September. Patient has had a few hospitalizations and was scheduled to undergo revision with washout and patient refused surgery reporting she was not feeling well. Cultures were obtained at that time and were negative and sent on oral antibiotics per infectious disease recommending outpatient follow-up with orthopedics. Patient is back with persistent pain and failure of outpatient treatment with wound dehiscence of the area and continued drainage now agreeable to surgery and scheduled for wound revision with washout on 10/27/2024. Patient reports she follows with Dr. Ballard in the outpatient setting with a significant past medical history of asthma, heart failure, COPD, DVT, fibromyalgia, GERD, hyperlipidemia, hypertension, memory impairment with previous heart attacks, osteoarthritis, seizure disorder, thyroid disorder as well as restless legs, IBS, colitis. Patient also with significant anxiety, bipolar depression with PTSD smokes daily occasionally uses marijuana and denies any alcohol use. Patient does have a legal public guardian and reports to living with her significant other (boyfriend). Medical was consulted for medical management. REVIEW OF SYSTEMS: CONSTITUTIONAL: No fever, no malaise, no fatigue. HEENT: No recent visual problems or hearing problems. Denied any sore throat. CARDIOVASCULAR: No chest pain, orthopnea, PND, no palpitations, no syncope. PULMONARY: No shortness of breath, no cough, no hemoptysis. GASTROINTESTINAL: No diarrhea, no nausea, no vomiting, no abdominal pain. NEUROLOGICAL: No headaches, no weakness, no numbness. HEMATOLOGICAL: Denies any bleeding or petechiae. GENITOURINARY: Denies any burning micturition, frequency, or urgency. MUSCULOSKELETAL/RHEUMATOLOGICAL: Reports significant back pain and neck pain with difficulty ambulating ENDOCRINE: Denies any polyuria or polydipsia. The rest of the 14-point review of systems is negative. PHYSICAL EXAMINATION: GENERAL: The patient is lethargic although easily arousable, alert and oriented x3, not in any acute distress. Well developed, thin built, elderly appearing HEENT: Pupils are round and equally reacting to light. EOMI. No scleral icterus. No conjunctival pallor. Normocephalic, atraumatic. No pharyngeal erythema. No thyromegaly. Soft collar in place CARDIOVASCULAR: S1 and S2 present. No murmurs, rubs, or gallops. PULMONARY: Diminished breath sounds bilaterally otherwise chest is clear to auscultation, no wheezing, coarse scattered rhonchi noted ABDOMEN: Soft, thin, nontender, nondistended, normoactive bowel sounds. No palpable organomegaly. MUSCULOSKELETAL: No joint swelling or deformity. EXTREMITIES: No cyanosis, clubbing, or pedal edema. NEUROLOGICAL: Gross neurological examination did not reveal any focal deficits. Diffusely weak SKIN: No rashes. Assessment: Ongoing back pain of the T-spine with failure of outpatient treatment on oral antibiotics History of recent C2-T7 decompression, fusion, fracture reduction with realignment of the T8 fracture Wound dehiscence of that previous surgical site due to pressure ulceration History of noncompliance Significant history of anxiety/depression/bipolar/PTSD Hypertension history Hyperlipidemia history Asthma/COPD history, not in exacerbation Continued ongoing nicotine abuse History of previous DVT History of GERD History of fibromyalgia History of memory impairment has a legal public guardian GI prophylaxis DVT prophylaxis Full code Plan: Patient was admitted under orthopedic services with failure of outpatient treatment. Patient is now agreeable to surgery and is scheduled to undergo revision with washout on 10/27/2024 Recommend resuming home medications as appropriate Continue pain management per orthopedics Recommend PT/OT therapy evaluation postsurgical Encourage incentive spirometer use at least 10 times every hour while awake Nicotine patch as needed Will follow-up with repeat labs, replace electrolytes per protocol We will continue to follow with orthopedics during hospitalization. Thank you kindly for this consultation. The impression and plan of care has been dictated by Kristina Wells, Nurse Practitioner as directed. Dr. Jayson MD I have performed a history and examination and MDM of this patient, discussed the same with the dictator, and agree with the dictator's assessment and plan as written ,documented as a scribe. Based on total visit time, I have performed more than 50% of the visit. Past Medical History Past Medical History: Asthma, Heart Failure, COPD, Deep Vein Thrombosis (DVT), Eye Disorder, Fibromyalgia, GERD/Reflux, Hyperlipidemia, Hypertension, Memory Impairment, Myocardial Infarction (ID), Osteoarthritis (OA), Pneumonia, Seizure Disorder, Skin Disorder, Syncope, Thyroid Disorder Additional Past Medical History / Comment(s): IBS, colitis, restless legs flexed syndrome, daily migraines, Vitamin D deficiency, benign left breast mass, gastritis, short term memory loss. Vision - "sees an orange aura." BILAT CATARACTS Last seizure 09/22/2024, PT STATES THAT DR. VILLALBA IS AWARE"Legs are weak and balance is off." checked bone marrow for cancer. Pt has pressure ulcer over lower incision from surgery on 09/09/2024. States she had a blood clot in leg but not sure which leg or when Last Myocardial Infarction Date:: 2009 History of Any Multi-Drug Resistant Organisms: None Reported Past Surgical History: Back Surgery, Hysterectomy, Orthopedic Surgery Additional Past Surgical History / Comment(s): D&C, bilateral knee arthroscopy. Past Anesthesia/Blood Transfusion Reactions: No Reported Reaction Additional Past Anesthesia/Blood Transfusion Reaction / Comm: severe anxiety coming out of anesthesia,no hx blood transfusion Past Psychological History: Anxiety, Bipolar, Depression, PTSD Smoking Status: Current every day smoker Past Alcohol Use History: None Reported Past Drug Use History: Marijuana - Past Family History Father Family Medical History: Cancer Additional Family Medical History / Comment(s): Father of pancreatic cancer at the age of 62yrs. and lung cancer Mother Family Medical History: Congestive Heart Failure (CHF) Additional Family Medical History / Comment(s): Mother of CHF at the age of 60yrs. Brother(s) Additional Family Medical History / Comment(s): Patient had 1 brother that at 5 months of age. Sister(s) Family Medical History: Deep Vein Thrombosis (DVT) Additional Family Medical History / Comment(s): Patient has one sister with history of depression and bipolar. Patient has 2 half-sisters and one at age 26 from overdose. Patient does not have any children. Medications and Allergies Home Medications Medication Instructions Recorded Confirmed Type Asenapine Maleate [Saphris] 10 mg SUBLINGUAL BID 04/30/17 10/25/24 History Sertraline [Zoloft] 200 mg PO DAILY 04/30/17 10/25/24 History Pantoprazole Sodium [Protonix] 40 mg PO BID 01/07/19 10/25/24 History Topiramate [Trokendi Xr] 100 mg PO DAILY 04/15/21 10/25/24 History cloBAZam [Sympazan] 10 mg PO BID 04/15/21 10/25/24 History hydrOXYzine pamoate [Vistaril] 50 mg PO TID PRN 04/16/21 10/25/24 History Albuterol Sulfate [Proair Hfa] 2 puff INHALATION RT-QID PRN 05/10/21 10/25/24 History Prazosin HCl [Minipress] 2 mg PO BID@1700,2100 05/10/21 10/25/24 History rOPINIRole HCL [Requip] 2 mg PO BID 05/10/21 10/25/24 History Fluticasone/Umeclidin/Vilanter 1 puff INHALATION RT-DAILY 12/10/22 10/25/24 History [Trelegy Ellipta 100-62.5-25] Brivaracetam [Briviact] 100 mg PO BID 07/10/23 10/25/24 History Budesonide [Pulmicort] 0.5 mg INHALATION RT-BID PRN 07/27/23 10/25/24 History Butalb/Acetaminophen/Caffeine 1 tab PO Q6H PRN 07/27/23 10/25/24 History [Fioricet 50-325-40] Cetirizine HCl [Zyrtec] 10 mg PO DAILY 07/27/23 10/25/24 History Fluticasone Nasal [place] [Flonase 1 spray EA NOSTRIL DAILY 07/27/23 10/25/24 History Nasal [place]] Ipratropium-Albuterol Nebulize 3 ml INHALATION RT-QID 07/27/23 10/25/24 History [Duoneb 0.5 mg-3 mg/3 ml Soln] Levothyroxine Sodium [Synthroid] 88 mcg PO DAILY 07/27/23 10/25/24 History Propranolol [Inderal] 20 mg PO BID 07/27/23 10/25/24 History Acetaminophen-Codeine 300-30mg 1 tab PO TID PRN 09/05/24 10/25/24 History [Tylenol w/codeine #3] Gabapentin 800 mg PO TID #90 tab 09/13/24 10/25/24 Rx Acetaminophen Tab [Tylenol Tab] 500 mg PO Q6HR PRN 10/25/24 10/25/24 History Albuterol Nebulized [Ventolin 2.5 mg INHALATION RT-BID 10/25/24 10/25/24 History Nebulized] Cholecalciferol (Vitamin D3) 50 mcg PO DAILY 10/25/24 10/25/24 History [Vitamin D3 (50 Mcg = 2000 Iu)] Cyclobenzaprine [Flexeril] 10 mg PO BID 10/25/24 10/25/24 History Furosemide [Lasix] 40 mg PO DAILY 10/25/24 10/25/24 History HYDROcodone/APAP 10-325MG [[place] 1 tab PO Q6H PRN 10/25/24 10/25/24 History 10-325] Ibuprofen [Motrin] 800 mg PO Q8H PRN 10/25/24 10/25/24 History Montelukast [Singulair] 10 mg PO HS 10/25/24 10/25/24 History Multivitamins, Thera [Multivitamin 1 tab PO DAILY 10/25/24 10/25/24 History (formulary)] busPIRone HCL 15 mg PO TID 10/25/24 10/25/24 History rOPINIRole HCL [Requip] 1 mg PO BID 10/25/24 10/25/24 History Allergies Allergy/AdvReac Type Severity Reaction Status Date / Time bee venom protein (honey bee) Allergy Anaphylaxis Verified 10/25/24 14:46 Physical Exam Vitals: Vital Signs Temp Pulse Pulse Resp BP BP Pulse Ox 10/27/24 02:24 97.5 F L 80 15 102/66 93 L 10/26/24 21:47 80 10/26/24 21:36 80 10/26/24 20:55 18 10/26/24 19:31 97.8 F 83 18 92/56 90 L 10/26/24 16:29 82 16 10/26/24 16:22 81 16 10/26/24 13:25 98.2 F 84 16 96/65 91 L 10/26/24 13:12 80 18 10/26/24 13:07 81 106/71 10/26/24 13:05 82 18 10/26/24 09:55 88 20 10/26/24 09:45 88 20 10/26/24 09:44 97/61 10/26/24 07:40 97.5 F L 85 16 96/66 94 L Intake and Output 10/26/24 10/26/24 10/27/24 14:59 22:59 06:59 Other: Voiding Method Toilet # Voids 3 1 Weight 45.359 kg Results CBC & Chem 7: 10/25/24 13:03 10/25/24 13:03 Labs: Microbiology - Last 24 Hours (Table) 10/25/24 13:03 Blood Culture - Preliminary Blood
[2024-10-27 13:32] LABS: African American GFR (CKD) >90 (>60 ml/min/1.73 sqM); Anion Gap 4 mmol/L; Blood Urea Nitrogen 13 mg/dL (7-17); Calcium 8.9 mg/dL (8.4-10.2); Carbon Dioxide 25 mmol/L (22-30); Chloride 105 mmol/L (98-107); Glucose 89 mg/dL (74-99); Non-African American GFR(CKD) >90 (>60 ml/min/1.73 sqM); Potassium 3.9 mmol/L (3.5-5.1); Sodium 134 mmol/L (137-145)
[2024-10-27] MEDS: VANCOMYCIN TROUGH DUE 1 EACH MISC MISCELLANE ONE (13:33)
[2024-10-27] MEDS: ONDANSETRON 4 MG/2 ML VIAL IVP PRN (14:39)
[2024-10-27] MEDS: IV FLUID CONTINUATION 1,000 ML IV ONE ×2 (14:44)
[2024-10-27] MEDS: LACTATED RINGERS 1,000 ML BAG IV STA (14:50)
[2024-10-27] MEDS ORDERED: MIDAZOLAM 2 MG/2 ML VIAL ONE (15:25)
[2024-10-27] MEDS ORDERED: GLYCOPYRROLATE 0.2 MG/ML 2 ML VIAL ONE (15:25)
[2024-10-27] MEDS ORDERED: DEXAMETHASONE SOD PHOSPHATE 10 MG/ML 1 ML VIAL ONE (15:25)
[2024-10-27] MEDS ORDERED: ROCURONIUM 10 MG/ML (5 ML VIAL) IV ONE (15:25)
[2024-10-27] MEDS ORDERED: LIDOCAINE 1% INJ 10MG/ML (20 ML MDV) ONE (15:25)
[2024-10-27] MEDS ORDERED: NEOSTIGMINE 1 MG/ML 10 ML VIAL ONE (15:25)
[2024-10-27] MEDS ORDERED: PHENYLEPHRINE 10 MG/ML VIAL ONE (15:25)
[2024-10-27] MEDS ORDERED: SUCCINYLCHOLINE CHLORIDE 200 MG/10 ML VIAL IV ONE (15:25)
[2024-10-27] MEDS ORDERED: PROPOFOL 10 MG/ML 20 ML VIAL IV ONE (15:25)
[2024-10-27] MEDS ORDERED: fentaNYL (PF) 50 MCG/ML 2 ML AMP ONE (15:25)
[2024-10-27] MEDS ORDERED: HYDROmorphone (PF) 1 MG/ML ONE (15:25)
[2024-10-27] MEDS: TOBRAMYCIN SULFATE 1.2 GM VIAL MISCELLANE ONE (16:05)
[2024-10-27] MEDS: IOPAMIDOL M200 10 ML VIAL MISCELLANE ONE (16:05)
[2024-10-27] MEDS: THROMBIN (BOVINE) 5,000 UNIT VIAL TOPICAL ONE (16:05)
[2024-10-27] MEDS: GENTAMICIN 80 MG in SODIUM CHLORIDE 0.9% IRRIGATIO 3,000 ML IRRIGATION ONE (16:05)
[2024-10-27] MEDS: VANCOMYCIN 1,000 MG VIAL MISCELLANE ONE (16:05)
[2024-10-27] MEDS: ceFAZolin 3,000 MG in SODIUM CHLORIDE 0.9% IRRIGATIO 3,000 ML IRRIGATION ONE (16:05)
--- NOTE | 2024-10-27 16:54 | P.ANPRN ---
Procedure Note - Anesthesia - Invasive Line Left Arterial Line Time Out Performed: Yes Date of Procedure: 10/27/24 Time of Procedure: 15:45 Location of Patient: OR Preparation: Sterile Prep, Sterile Dressing Arterial Line Location: Briachial Central Line Location: Internal Jugular Ultrasound Used: No Purpose - Visualization and Identification of Vasculature: No Image Stored and Saved: No Narrative: Invasive line placement per sterile protocol utilized.
[2024-10-27] MEDS: LACTATED RINGERS 1,000 ML IV ONE (17:59)
[2024-10-27] MEDS: PHENYLEPHRINE 40 MG in SODIUM CHLORIDE 0.9% 250 ML IV SCH (18:33)
--- NOTE | 2024-10-27 18:39 | P.OP ---
Date of Procedure: 10/27/24 Preoperative Diagnosis: 1. WOUND DEHISCENCE THORACIC SPINE 2. T8 BURST COMPRESSION FRACTURE WITH KYPHOTIC DEFORMITY 3. S/P MULTIPLE FRACTURE SURGERIES AND REVISION 4. THORACIC BACK PAIN 5. COMPLEX MEDICAL PATIENT Postoperative Diagnosis: 1. WOUND DEHISCENCE THORACIC SPINE 2. T8 BURST COMPRESSION FRACTURE WITH KYPHOTIC DEFORMITY 3. S/P MULTIPLE FRACTURE SURGERIES AND REVISION 4. THORACIC BACK PAIN 5. COMPLEX MEDICAL PATIENT Procedure(s) Performed: 1. OPEN TREATMENT T8 FRACTURE 2. IRRIGATION AND EXCISIONAL DEBRIDMENT OF THE THORACIC SPINE WOUND 10 X 7 X 4 CM USING THE FOLLOWING: -SKIN KNIFE TO REMOVE SKIN -RONGURE TO REMOVE BONE AND TISSUES -CURETTE TO SCRAPE SOFT TISSUES 3. POSTEROLATERAL INSTRUMENTED FUSION T7-T11 4. SEGMENTAL INSTRUMENTATION T7-T11 5. SPINE ABRAM INTRAVERTEBRAL BODY PLACEMENT WITH FRACTURE REDUCTION T8 AND CEME NT AUGMENTATION 6. CEMENT AUGMENTATION T8, T9, T10 VERTEBRAL BODIES 7. USE OF YESSI NAVIGATION FOR SCREW PLACEMENT USE OF IONM Implants: -YESSI EVEREST RODS AND SCREWS -YESSI CEMENT -CONTOUR, VENTRIS Anesthesia: GETA Surgeon: Leonel Mchugh [employer] Bi Developer #1: Win Wiseman (WAS PRESENT AND ASSISTED WITH ALL ASPECTS OF THE CASE FROM POSITIONING TO DRESSING PLACEMENT) Estimated Blood Loss (ml): 150 IV fluids (ml): 1,400 Urine output (ml): 300 Pathology: none sent Condition: stable Disposition: ICU Indications for Procedure: Spine Surgery Clinical and Risk Review CLAUDIA CH is a 54 yo female presenting for evaluation of severe back pain, wound dehiscense with drainage and fever. It was my pleasure to have seen and examined CLAUDIA CH. In our visit today we have had a chance to go over subjective complaints, physical examination findings and treatments including the natural course history without intervention and various interventional options. The patient's imaging demonstrates the following: * T8 burst compression fracture with kyphosis * Osteoporosis * Post surgical changes C2-T7 and T11-L3 for fractures * Deformity On a physical exam, CLAUDIA CH demonstrates the following: * Open dehiscense of her posterior wound at the distal end of the C2-T7 incision with exposed hardware and bone * Drainage from the area * Severe mid back pain and pain with movement and palpation of the area. * Pain with movement and ambulation * debility * I have explained to the patient that as their condition progresses it will cause further neurological deficits and eventual paralysis. Based on the patients imaging, physical exam, and the rapid progression and disabling nature of their symptoms, at this time I recommend surgery in the form of a: THORACIC WOUND REVISION WITH WASHOUT AND T8 KYPHOPLASTY, AUGMENTATION AND STABILIZATION I discussed the risk and benefits of this procedure at length with CLAUDIA CH. The patient and family agreed to consider pursuing the procedure above mentioned. Prior to surgery, they should follow up with her PCP (Cardio, ID, IM etc) for clearance. Questions were invited and answered, and the patient wishes to proceed as outlined below. Currently, I am recommendin. THORACIC WOUND REVISION WITH WASHOUT AND T8 KYPHOPLASTY, AUGMENTATION AND STABILIZATION 2. Obtain appropriate presurgical workup and clearances as discussed with the patient. 3. Review of surgical risks and benefits as well as an educational packet on the proposed surgical procedure. Risks: All surgical procedures come with inherent risks, including those related to positioning, anesthesia, intraoperative findings, and postoperative complicatio ns. It is important to understand that surgery does not come with any guarantee of a successful outcome as complications and adverse events are always possible. The patient was given a handout in the office today discussing the surgical procedure and risks associated with the intervention, both of which were discussed with the patient. These risks include but are not limited to the following: Experiencing same, different or even worse symptoms in back, neck, arms, or legs compared to before surgery. Requiring further surgery or other forms of treatment presently or at some time in the future at same or other levels of the intended spine surgery. On an extreme but fortunately relatively rare basis severe complications such as blindness, stroke, heart attack, temporary and/or permanent nerve injury, paralysis, coma, or may occur, sometimes without known explanation. Surgical complications may include but are not limited to risk of infection, fluid accumulation in the surgical dissection site, including a seroma or hematoma, that requires additional surgery, wound drainage, bleeding, new numbness or weakness, vision changes/loss, spinal fluid leakage, non-healing and/or infected incision, headaches, difficulty or inability to swallow, hoarseness, hemopneumothorax, pneumothorax, impotence, retrograde ejaculation, vaginal dryness; injury to nerves, spinal cord, blood vessels, lymphatics or other vital organs (i.e., bowel injury, injury to the great vessels); heterotopic bone formation; complications related to the hardware such as sc rews, rods, cages including misplaced hardware, device failure, instrumentation at the wrong spine level, hardware fracture/breakage, or hardware loosening; vertebral failure of the spinal column above or below the newly placed hardware; retained surgical instrumentations or devices and the need for further surgery. Medical risks of the planned spine surgery include but are not limited to generalized Infections to the whole body or local areas outside of the surgical site (sepsis), heart attack, bleeding, anaphylaxis, meningitis, seizure, epilepsy, hearing loss, burn lópez, laceration of the head or other areas of the body, bruising, hypersensitivity of the skin, bladder over distension; allergic reaction; shoulder injury related to positioning; fat, blood and air clots to other areas of the body like heart, lungs, brain; failure of internal organs such as lungs, kidneys, liver and excessive bleeding. If blood transfusions are necessary, note that transfusions may cause intolerance reactions such as anaphylaxis or other complex reactions. Despite best efforts, the results of spine surgery might not heal in terms of bone, soft tissues such as skin, fascia, ligaments, and joints. Additionally, in order to achieve best possible results, spine surgery may be carried out beyond the initially planned levels and involve decompression, fusion including insertion of hardware at levels other than the original intended area of surgical interest change some portions of the procedure in order to ensure the best possible outcomes. With spine surgery and spinal fusion, there are different off label uses of instrumentation (devices, implants and hardware) as well as biological substances (bone morphogenic proteins, demineralized bone matrix) as well as using extra bone from allograft sources (i.e. cadaver bone) or autograft (iliac crest bone, ribs, or the spine itself). The patient has been given information about these practices and their inherent risks and benefits. The patient has had a chance to review all the listed information, has been given print outs detailing this information, and has had all his/her questions answered to their satisfaction. It was my pleasure to have seen and examined CLAUDIA CH. In our visit today we have had a chance to go over my understanding of our patient's current condition, the natural course history without intervention and various interventional options. Questions were invited and answered, and the patient wishes to proceed as outlined above. I have seen and examined the patient for 25 minutes and we have spent more than 50% of the time in repeat and detailed counseling about the patient's condition, its natural course history without and as much as can be predicted with surgery and re-review of various surgical treatment options. In conclusion, CLAUDIA CH and their family requested we proceed with the above suggested surgery and are willing to accept risks and limitations of the suggested surgery as the nature of the disease process and our best attempts at treatment for the condition. Thank you again for allowing us to be part of your patient's care. Please don't hesitate to contact me if you have any further questions. Signed and authenticated by: Leonel Massey [facility] [address] [address] Description of Procedure: WOUND REVISION, OPEN TREATMENT T8 BURST COMPRESSION FRACTURE WITH T7-11 STA BILIZATION AND FUSION WITH SPINE ABRAM T8, CEMENT AUGMENTATION (BANDAR) The patient was seen and examined in the preoperative area. All preoperative protocols were followed. Informed consent was obtained, risks and benefits of the procedure were discussed at length. Risks including bleeding infection damage to the surrounding tissue and risk of reoperation were discussed with the patient. Risk of anesthesia up to and including was discussed with the patient. These are outlined in the risk review. They were willing to accept these risks and all of the risks of surgery. The patient was given a weight- based dose of antibiotics in the form of 2 g Ancef. The patient was seen and evaluated by the anesthesia team who deemed them fit for surgery. The site was marked, the patient was willing to proceed with the procedure. The patient was transferred to the operative suite by the Department of anesthesia. They were then drifted off to sleep by the department anesthesia and GETA was performed. The patient tolerated this well. pre-positioning motors were obtained.Howell in place from the floor. Barrett head scorer was placed on the patient. Once confirmation of lines and ventilation the patient was secured and the patient was transferred to a [prone Valentino table very carefully] with the Post-positioning motors remaining stable. All bony prominences including wrists, elbows, axilla, chest, hips, and thighs, and feet were padded very well. Special attention was paid to the genitalia and these were padded accordingly. SCDs were placed on bilateral lower extremities and w ere connected. Arms were well padded and placed tucked at his side thumbs down. Once in position, again we confirmed good ventilation capabilities and that lines were running appropriately. The patient's cervicothoracic spine was then exposed. 1010s were placed outlining the incision site. Standard alcohol was used to clean the incision site and allowed to dry. C-arm was used to biomark the patient and confirm level for incision which was marked with a skin marker. Operative briefing was performed with all teams and everyone in agreement to proceed. The patient was then prepped and draped in a normal sterile fashion. Timeout was then performed and all parties were in agreement with the procedure to be performed. Midline skin incision made over the previously bio-marked area and dissection taken down to the lamina of T7-T11 with TVP exposed at these levels as well. Subperiosteal dissection was then performed and old hardware was identified at T7 and T11 for reference. The TP and PLG of T8-10 were exposed and decorticated with sole. Cultures were taken of the open area deep which was non purulent. Tracker was then placed on the SP and a 3D intraoperative spin was done and registered with [employer]. Once registered and confirmed to be accurate navigated instruments were used to place screws. A navigated sole was used to make aeroplane pilot holes followed by a tap and screw electric lift truck driver. Screws were placed at T9 and T10 b/l without issues. T8 pedicles were accessed and the vertebral body accessed using bandar and Jamshidi for Spine Abram placement. Screws were advanced to an appropriate level. AP/LAT confirmed good placement of Jamshidi and screws. Spine Jacks were then placed per protocol and expanded under lateral imaging to reduce the T8 fracture and restore height. Good height samaritan achieved. We then proceeded to cement augmentation. Screws and vertebral bodies were augmented with cement under lateral imaging at T8, T9 and T10. Good cement fill was noted. No extravasation or myelogram noted. Pt remained stable through cementation. We then proceeded to dorian placement. Rods were then sized and selected and cut to length. They were bent accordingly. Rods were then placed without tension in the tulip heads and set screws secured. Dorian to dorian connectors were used to attach the rods to the existing hardware and these were all tightened. AP and LAT confirmed good placement and reduction of alignment. All set screws were placed and were then final tightened. Meticulous hemostasis was performed. The wound was then copiously irrigated with 3 L of Ancef irrigation followed by 3 L of gentamicin irrigation followed by 2 bottles of Irricept through the case and 1 L betadine which was then washed with 3 L of normal sterile saline. SP were removed and Facet joints were further drilled at each level to allow for fusion. Contour and autograft was placed in the posterior lateral gutters. This was impacted into position for fusion. A deep subfacial drain was placed and secured to the skin. 2 g of powdered vancomycin was then placed deep. We then proceeded with layered closure first in the deep fascia with #1 PDS then in the deep fascia. 0 Vicryl was used in the deep subq fascia and 2-0 in the superficial subq. 2-0 nylon in a simple fashion was then placed in the skin. The wound edges approximated very well. The wound was then cleaned and dressed sterilely with adaptic, 4x4, abd and tape and Tegaderm. The patient was transferred back to their hospital bed atraumatically. Drain continued to hold suction. The patient was then awakened and extubated by the department of anesthesia having tolerated the procedure very well with no complications. They were transferred to the postoperative care unit in stable condition.
--- NOTE | 2024-10-27 18:46 | FL ---
EXAMINATION TYPE: FL guidance operating room, XR thoracic spine 2V DATE OF EXAM: 10/27/2024 6:38 PM COMPARISON: Pre Operative Images if available both CT/MRI or plain film CLINICAL INDICATION: Female, 54 years old with history of PLDF; TECHNIQUE: FL guidance operating room, XR thoracic spine 2V, multiple fluoroscopic images provided fo r procedure. DAP: 44.161 mGym2 Gycm2 uGym2 cGycm2 or equivalent. FINDINGS: Fluoroscopic images during internal fixation/arthroplasty demonstrate hardware in appropriate positio n. Hardware appears intact. No immediate complication identified. IMPRESSION: 1. No evidence for intraoperative complication. 2. Please see the operative/procedural note for further details. [facility], , 10/27/2024 6:44 PM
[2024-10-27 19:03] LABS: Basophils # (A) 0.1 k/uL (0-0.2); Basophils % (A) 0 %; Eosinophils # (A) 0.3 k/uL (0-0.7); Eosinophils % (A) 2 %; HCT 34.3 % (34.0-46.0); HGB 10.4 gm/dL (11.4-16.0); Hypochromasia Marked; Lymphocytes # (A) 1.7 k/uL (1.0-4.8); Lymphocytes % (A) 12 %; MCH 31.7 pg (25.0-35.0); MCHC 30.2 g/dL (31.0-37.0); MCV 104.9 fL (80.0-100.0); Macrocytosis Moderate; Mean Platelet Volume 6.8; Monocytes # (A) 0.7 k/uL (0-1.0); Monocytes % (A) 5 %; Neutrophils # (A) 11.1 k/uL (1.3-7.7); Neutrophils % (A) 80 %; Platelet Count 598 k/uL (150-450); RBC 3.27 m/uL (3.80-5.40); RDW 14.9 % (11.5-15.5); WBC 13.9 k/uL (3.8-10.6)
[2024-10-27 19:27] LABS: Potassium 4.5 mmol/L (3.5-5.1)
[2024-10-27 19:48] LABS: Glucose,Whole Blood 129 mg/dL (70-110)
[2024-10-27 20:58] LABS: ABG Base Excess -5.3 mmol/L; ABG HCO3 25 mmol/L (21-25); ABG Oxygen Saturation 92.1 % (94-97); ABG PO2 82 mmHg (83-108); ABG TCO2 28 mmol/L (19-24); Allen Test Performed? Yes
[2024-10-27 21:00] LABS: ABG PCO2 80 mmHg (35-45); ABG PH 7.11 (7.35-7.45)
--- NOTE | 2024-10-27 21:28 | XR ---
EXAMINATION TYPE: XR chest 1V portable DATE OF EXAM: 10/27/2024 9:08 PM COMPARISON: Chest radiographs from 10/11/2024 CLINICAL INDICATION: Female, 54 years old with history of post extubation; [facility] TECHNIQUE: XR chest 1V portable Frontal view of the chest. FINDINGS: Lungs/Pleura: Right upper lobe interstitial opacities. There is no evidence of pleural effusion, foca l consolidation, or pneumothorax. Pulmonary vascularity: Unremarkable. Heart/mediastinum: Cardiomediastinal silhouette is unremarkable. Musculoskeletal: No acute osseous pathology. Extensive fixation hardware throughout the spine appears intact. Other findings: None IMPRESSION: 1. Right upper lobe airspace and interstitial opacities correlate for developing pneumonia versus gi ngozi recent surgery aspiration. 2. Extensive fixation hardware throughout the spine appears grossly intact. [facility], , 10/27/2024 9:26 PM
[2024-10-27] MEDS: HYDROmorphone 0.5 MG/0.5 ML SYRINGE IVP PRN (21:50)
[2024-10-27] MEDS: SODIUM CHLORIDE 0.9% 2,000 ML IV ONE (22:40)
[2024-10-27 22:58] LABS: ABG Base Excess -4.4 mmol/L; ABG HCO3 23 mmol/L (21-25); ABG PCO2 50 mmHg (35-45); ABG PH 7.27 (7.35-7.45); ABG PO2 332 mmHg (83-108); ABG TCO2 24 mmol/L (19-24); Allen Test Performed? Yes
--- NOTE | 2024-10-27 22:59 | XR ---
EXAMINATION TYPE: XR chest 1V portable DATE OF EXAM: 10/27/2024 CLINICAL HISTORY: Difficulty breathing tube placement. TECHNIQUE: Single AP portable supine view of the chest is obtained. COMPARISON: Chest x-ray from earlier today an older studies. FINDINGS: There is new orogastric tube projecting below diaphragm. There is new endotracheal tube te rminating at the superior aortic knob level approximately 2 to 3 cm above the sergo. Long segment surgical changes in the spine is redemonstrated. Persistent increased opacities in the b ilateral upper lobes right greater than left. Cardiac silhouette size stable and within normal limits . IMPRESSION: 1. The new endotracheal and orogastric tubes are satisfactory in position. 2. Persistent right greater than left upper lung acute infiltrates and/or edema. [facility], , 10/27/2024 10:57 PM
[2024-10-28] MEDS: SODIUM CHLORIDE 0.9% 1,000 ML IV SCH (00:40)
--- NOTE | 2024-10-28 01:22 | P.CNPUL ---
History of Present Illness Consult date: 10/28/24 Requesting physician: Leonel Mchugh Reason for consult: other (Ventilator management) Chief complaint: Surgical site infection, postoperative back surgery History of present illness: Patient is a 54-year-old female with past medical history significant for asthma/COPD, hypertension, hyperlipidemia, CAD, heart failure, DVT, hypothyroidism, seizure disorder, osteoarthritis and multiple previous back surgeries. Most recently, underwent open treatment of T2 vertebral fracture and revision of C2-T7 posterior lateral fusion on 09/09/2024. Concerns for surgical site infection on outpatient basis, and was treated with antibiotics. On 10/24/2024 she was seen in the emergency department for continued concerns of a surgical site infection. Reports of thoracic level pain and green/brown dis charge. Unfortunately, patient left AGAINST MEDICAL ADVICE. Patient returned the following day with similar complaints, and was admitted to the hospital. Patient was taken back to the operating room and did undergo open treatment of a T8 fracture, irrigation and excisional debridement of thoracic spine wound measuring 10 x 7 x 4 cm, posterior lateral instrumented fusion of T7-T11 and cement augmentation of T8-T10 vertebral bodies. Following the surgery, patient was extubated in the postanesthesia care unit, and transferred to the intensive care unit. Per the ICU nurse, patient was on a 6 L simple mask and obtunded. ABGs consistent with severe hypercapnic respiratory failure. Patient was trialed on BiPAP with settings 14/5 and FiO2 50%. Repeat ABG showing only minimal improvement with a PaO2 of 85, pCO2 75, pH of 7.12. Dr. Dumont was previously contacted and gave orders to intubate the patient, and this was done by JOB PLACEMENT COUNSELOR at 2225. I am seeing this patient in room 252 following the intubation. Postintubation chest x-ray showing the ET tube tip approximately 2 to 3 cm above the sergo, orogastric tube in satisfactory position, cervical and thoracic postsurgical hardware, hyperinflation consistent with COPD. Current ventilator settings AC, respiratory rate 18, tidal volume 400, FiO2 100 %, PEEP of 5. Follow-up ABGs, showing a PaO2 of 332, pCO2 50, pH is 7.26. Appropriate adjustments were made. Peak pressures are elevated at 34 and static airway pressure is 21. She does have diffuse expiratory wheezing. Started on combination of DuoNebs, formoterol and budesonide inhalations, and steroids. No secretions in the ET tube. No reported aspiration events. Propofol is going to be started. She does have a Hemovac drain with small amount of sanguinous output. Also, started on some empiric antibiotics in the form of cefepime and vancomycin. Blood and wound cultures are pending. CBC: WBC count 13.9, hemoglobin 10.4, platelets 598. Preop BMP includes a sodium 134, potassium 3.9, chloride 105, serum bicarb 25, BUN 13, creatinine 0.6, glucose 89. Was noted to be hypotensive following intubation, and was given 2 L of normal saline bolused. Blood pressure now normotensive. Normal saline continuous at 100 mL/h. Review of Systems ROS unobtainable: due to endotracheal tube, due to mental status Past Medical History Past Medical History: Asthma, Heart Failure, COPD, Deep Vein Thrombosis (DVT), Eye Disorder, Fibromyalgia, GERD/Reflux, Hyperlipidemia, Hypertension, Memory Impairment, Myocardial Infarction ([place]), Osteoarthritis (OA), Pneumonia, Seizure Disorder, Skin Disorder, Syncope, Thyroid Disorder Additional Past Medical History / Comment(s): IBS, colitis, restless legs flexed syndrome, daily migraines, Vitamin D deficiency, benign left breast mass, gastritis, short term memory loss. Vision - "sees an orange aura." BILAT CATARACTS Last seizure 09/22/2024, PT STATES THAT DR. VILLALBA IS AWARE"Legs are weak and balance is off." checked bone marrow for cancer. Pt has pressure ulcer over lower incision from surgery on 09/09/2024. States she had a blood clot in leg but not sure which leg or when Last Myocardial Infarction Date:: 2009 History of Any Multi-Drug Resistant Organisms: None Reported Past Surgical History: Back Surgery, Hysterectomy, Orthopedic Surgery Additional Past Surgical History / Comment(s): D&C, bilateral knee arthroscopy. Past Anesthesia/Blood Transfusion Reactions: No Reported Reaction Additional Past Anesthesia/Blood Transfusion Reaction / Comment(s): severe anxiety coming out of anesthesia,no hx blood transfusion Past Psychological History: Anxiety, Bipolar, Depression, PTSD Smoking Status: Current every day smoker Past Alcohol Use History: None Reported Past Drug Use History: Marijuana - Past Family History Father Family Medical History: Cancer Additional Family Medical History / Comment(s): Father of pancreatic cancer at the age of 62yrs. and lung cancer Mother Family Medical History: Congestive Heart Failure (CHF) Additional Family Medical History / Comment(s): Mother of CHF at the age of 60yrs. Brother(s) Additional Family Medical History / Comment(s): Patient had 1 brother that at 5 months of age. Sister(s) Family Medical History: Deep Vein Thrombosis (DVT) Additional Family Medical History / Comment(s): Patient has one sister with history of depression and bipolar. Patient has 2 half-sisters and one at age 26 from overdose. Patient does not have any children. Medications and Allergies Home Medications Medication Instructions Recorded Confirmed Type Asenapine Maleate [Saphris] 10 mg SUBLINGUAL BID 04/30/17 10/25/24 History Sertraline [Zoloft] 200 mg PO DAILY 04/30/17 10/25/24 History Pantoprazole Sodium [Protonix] 40 mg PO BID 01/07/19 10/25/24 History Topiramate [Trokendi Xr] 100 mg PO DAILY 04/15/21 10/25/24 History cloBAZam [Sympazan] 10 mg PO BID 04/15/21 10/25/24 History hydrOXYzine pamoate [Vistaril] 50 mg PO TID PRN 04/16/21 10/25/24 History Albuterol Sulfate [Proair Hfa] 2 puff INHALATION RT-QID PRN 05/10/21 10/25/24 History Prazosin HCl [Minipress] 2 mg PO BID@1700,2100 05/10/21 10/25/24 History rOPINIRole HCL [Requip] 2 mg PO BID 05/10/21 10/25/24 History Fluticasone/Umeclidin/Vilanter 1 puff INHALATION RT-DAILY 12/10/22 10/25/24 History [Trelegy Ellipta 100-62.5-25] Brivaracetam [Briviact] 100 mg PO BID 07/10/23 10/25/24 History Budesonide [Pulmicort] 0.5 mg INHALATION RT-BID PRN 07/27/23 10/25/24 History Butalb/Acetaminophen/Caffeine 1 tab PO Q6H PRN 07/27/23 10/25/24 History [Fioricet 50-325-40] Cetirizine HCl [Zyrtec] 10 mg PO DAILY 07/27/23 10/25/24 History Fluticasone Nasal [place] [Flonase 1 spray EA NOSTRIL DAILY 07/27/23 10/25/24 History Nasal [place]] Ipratropium-Albuterol Nebulize 3 ml INHALATION RT-QID 07/27/23 10/25/24 History [Duoneb 0.5 mg-3 mg/3 ml Soln] Levothyroxine Sodium [Synthroid] 88 mcg PO DAILY 07/27/23 10/25/24 History Propranolol [Inderal] 20 mg PO BID 07/27/23 10/25/24 History Acetaminophen-Codeine 300-30mg 1 tab PO TID PRN 09/05/24 10/25/24 History [Tylenol w/codeine #3] Gabapentin 800 mg PO TID #90 tab 09/13/24 10/25/24 Rx Acetaminophen Tab [Tylenol Tab] 500 mg PO Q6HR PRN 10/25/24 10/25/24 History Albuterol Nebulized [Ventolin 2.5 mg INHALATION RT-BID 10/25/24 10/25/24 History Nebulized] Cholecalciferol (Vitamin D3) 50 mcg PO DAILY 10/25/24 10/25/24 History [Vitamin D3 (50 Mcg = 2000 Iu)] Cyclobenzaprine [Flexeril] 10 mg PO BID 10/25/24 10/25/24 History Furosemide [Lasix] 40 mg PO DAILY 10/25/24 10/25/24 History HYDROcodone/APAP 10-325MG [Welcome 1 tab PO Q6H PRN 10/25/24 10/25/24 History 10-325] Ibuprofen [Motrin] 800 mg PO Q8H PRN 10/25/24 10/25/24 History Montelukast [Singulair] 10 mg PO HS 10/25/24 10/25/24 History Multivitamins, Thera [Multivitamin 1 tab PO DAILY 10/25/24 10/25/24 History (formulary)] busPIRone HCL 15 mg PO TID 10/25/24 10/25/24 History rOPINIRole HCL [Requip] 1 mg PO BID 10/25/24 10/25/24 History Allergies Allergy/AdvReac Type Severity Reaction Status Date / Time bee venom protein (honey bee) Allergy Anaphylaxis Verified 10/25/24 14:46 Physical Exam Vitals: Vital Signs Temp Pulse Pulse Pulse Resp BP BP 10/27/24 23:00 10/27/24 22:30 10/27/24 21:30 82 10/27/24 21:14 80 10/27/24 21:06 10/27/24 19:45 76 16 94/45 10/27/24 19:30 79 17 87/43 80/49 10/27/24 19:15 83 15 89/46 75/45 10/27/24 19:00 76 15 86/42 83/48 10/27/24 18:45 61 17 86/42 83/48 10/27/24 18:33 97.0 F L 55 L 16 98/47 81/51 10/27/24 14:15 98.0 F 83 18 108/69 10/27/24 11:57 80 10/27/24 11:44 76 10/27/24 07:50 97.8 F 76 17 112/77 10/27/24 06:24 74 18 10/27/24 06:18 74 18 10/27/24 02:24 97.5 F L 80 15 102/66 Pulse Ox FiO2 10/27/24 23:00 100 10/27/24 22:30 100 10/27/24 21:30 10/27/24 21:14 10/27/24 21:06 50 10/27/24 19:45 94 L 10/27/24 19:30 93 L 10/27/24 19:15 96 10/27/24 19:00 94 L 10/27/24 18:45 97 10/27/24 18:33 97 10/27/24 14:15 92 L 10/27/24 11:57 10/27/24 11:44 10/27/24 07:50 95 10/27/24 06:24 10/27/24 06:18 10/27/24 02:24 93 L Intake and Output 10/27/24 10/27/24 10/28/24 14:59 22:59 06:59 Intake Total 200 1570.289 Output Total 635 Balance 200 935.289 Intake: IV 200 1452 Intake, IV Titration 118.289 Amount Phenylephrine 40 mg In 18.289 Sodium Chloride 0.9% 250 ml @ 0.5 MCG/KG/MIN 8.641 mls/hr IV .Q24H VIVI Rx#: [id number] Sodium Chloride 0.9% 1, 100 000 ml @ 100 mls/hr IV . Q10H VIVI Rx#:[id number] Output: Urine 485 Estimated Blood Loss 150 Other: Weight 45.359 kg GENERAL EXAM: Sedated, 54-year-old white female, intubated to mechanical ventilator. HEAD: Normocephalic and atraumatic EYES: Normal reaction of pupils, equal size. NOSE: Clear with pink turbinates. THROAT: No erythema or exudates. Orogastric tube noted NECK: No masses, no JVD. CHEST: No chest wall deformity. LUNGS: Equal air entry with diffuse expiratory wheezing. Some degree of airway resistance, 13. No endotracheal tube secretions noted. Synchronous with current ventilator settings. Propofol to be started. CVS: S1 and S2 normal with no audible murmur, regular rhythm. No extra heart sounds ABDOMEN: No hepatosplenomegaly, active bowel sounds, no guarding or rigidity. SPINE: No scoliosis or deformity SKIN: No rashes CENTRAL NERVOUS SYSTEM: Sedated, appears to move all 4 extremities, nonfocal EXTREMITIES: There is no peripheral edema, clubbing, or cyanosis. Peripheral pulses are intact. Results - Laboratory Findings CBC and BMP: 10/28/24 04:30 10/28/24 04:30 ABG ABG pH 7.27 (7.35-7.45) L 10/27/24 22:54 ABG pCO2 50 mmHg (35-45) H 10/27/24 22:54 ABG pO2 332 mmHg (83-108) H 10/27/24 22:54 ABG O2 Saturation 100.0 % (94-97) H 10/27/24 22:54 PT/INR, D-dimer PT 10.9 sec (10.0-12.5) 10/25/24 18:44 INR 1.0 (<1.2) 10/25/24 18:44 Abnormal lab findings: Abnormal Labs 10/25/24 10/25/24 10/27/24 13:03 13:03 12:56 WBC 12.2 H RBC 3.77 L Hgb MCV 101.9 H MCHC Plt Count 664 H Neutrophils # ESR 49 H ABG pH ABG pCO2 ABG pO2 ABG Total CO2 ABG O2 Saturation Hemoglobin Sodium 135 L 134 L BUN 34 H Glucose 123 H POC Glucose (mg/dL) Alkaline Phosphatase 169 H C-Reactive Protein 4.3 H Albumin 3.1 L 10/27/24 10/27/24 10/27/24 18:54 18:54 19:46 WBC 13.9 H RBC 3.27 L Hgb 10.4 L MCV 104.9 H MCHC 30.2 L Plt Count 598 H Neutrophils # 11.1 H ESR ABG pH ABG pCO2 ABG pO2 ABG Total CO2 ABG O2 Saturation Hemoglobin Sodium 132 L BUN Glucose POC Glucose (mg/dL) 129 H Alkaline Phosphatase C-Reactive Protein Albumin 10/27/24 10/27/24 20:55 22:54 WBC RBC Hgb MCV MCHC Plt Count Neutrophils # ESR ABG pH 7.11 L* 7.27 L ABG pCO2 80 H* 50 H ABG pO2 82 L 332 H ABG Total CO2 28 H ABG O2 Saturation 92.1 L 100.0 H Hemoglobin 10.5 L 9.7 L Sodium BUN Glucose POC Glucose (mg/dL) Alkaline Phosphatase C-Reactive Protein Albumin - Diagnostic Findings Chest x-ray: image reviewed Assessment and Plan Assessment: Status postoperative day #1 following open treatment of a T8 fracture, irrigation and excisional debridement of thoracic spine wound measuring 10 x 7 x 4 cm, posterior lateral instrumented fusion of T7-T11 and cement augmentation of T8-T10 vertebral bodies. Patient initially extubated and the postanesthesia care unit, and transferred to the intensive care care unit. Noted to be obtunded, ABG consistent with severe hypercapnic respiratory failure, patient briefly trialed on BiPAP, and did eventually require reintubation. Mechanical ventilator management, secondary to above, Postintubation chest x-ray showing the ET tube tip approximately 2 to 3 cm above the sergo, orogastric tube in satisfactory position, cervical and thoracic postsurgical hardware, coarsened interstitial opacities, COPD changes Acute hypoxemic and hypercapnic respiratory failure Chronic obstructive pulmonary disease/asthma Recent history of open treatment of a T2 vertebral fracture with revision of C2- T7 posterior lateral fusion on 09/09/2024 Surgical site infection and wound dehiscence, wound and blood cultures pending Acute leukocytosis Macrocytic anemia History of hypertension History of hyperlipidemia History of coronary artery disease History of heart failure with preserved ejection fraction History of gastroesophageal reflux disease History of seizure disorder History of hypothyroidism History of anxiety/depression/PTSD Plan: Patient is going to be remain on the mechanical ventilator at least overnight ABG was reviewed, appropriate ventilator adjustments were made, continue to wean FiO2 as tolerated Repeat chest x-ray in the morning Start combination of DuoNebs, budesonide and formoterol inhalation, and IV steroids Blood and wound cultures pending Empiric antibiotics are continued Follow-up CT of the thoracic spine is ordered Patient will continue to be monitored in the intensive care unit I have personally seen and examined the patient, performed the documentation and the assessment and plan as written. Number of minutes spent on the visit:20 On 10/28/2024, the patient is being seen in a joint evaluation along with the nurse practitioner. This evaluation was done in 37 minutes. In summary, the patient had a complicated spine surgery and the patient was brought into the intensive care unit initially on oxygen at 5 L/min nasal cannula. Upon arrival, the patient was quite obtunded, lethargic and had diminished level of consciousness. Her breathing was also labored. Blood gas was done that showed severe respiratory acidosis. The patient was placed on a BiPAP pressure of 12 over 5 cm of water. Subsequently, the follow-up blood gas showed ongoing respiratory acidosis. Based on that, the patient was intubated and placed on mechanical ventilator. This morning, the patient is on assist-control mode at rate of 22, tidal volume of 400, FiO2 40% with a PEEP of 5. Blood gas showed a pH of 7.38 with a pCO2 of 36 and pO2 of 145. Peak airway pressures 26. No significant bronchospasm wheezing. Hemovac output is minimal. Remains on normal citrate of 100 cc an hour. Remains on a combination of cefepime and vancomycin. Remains on propofol at 50 mcg/kg/min. Requiring Dilaudid for pain control. The patient has chronic issues with anxiety and depression. The patient has chronic use of narcotic medications for pain control. She has high tolerance to pain killers. Based on that, I made recommendations to stop the propofol and switch this patient to Precedex. I may use fentanyl for pain c ontrol in combination with Dilaudid. My plan is to graduate of the propofol and assess readiness to wean and give the patient a spontaneous breathing trial if the weaning parameters are adequate. I plan to ultimately extubate the patient today. Otherwise, labs were reviewed. No significant abnormalities. Hemoglobin is at 10.4. Blood gases were noted. Electrolytes are stable, normal renal function. Spine surgery is on the case. The patient is known to have COPD, coronary artery disease, congestive heart failure, previous history of DVT, hypothyroidism, seizure disorder and she has undergone multiple back surgeries. The patient underwent irrigation and excisional debridement of the t horacic spine wound and she is currently postop day #1. Time with Patient: Greater than 30
[2024-10-28] MEDS: HYDROmorphone 1 MG/ML 1 ML SYRINGE IVP PRN (02:02)
[2024-10-28] MEDS: IPRATROPIUM-ALBUTEROL 3 ML NEB INHALATION SCH (03:37)
--- NOTE | 2024-10-28 04:38 | P.PN ---
Subjective Progress Note Date: 10/27/24 - Reason for Consult Consult date: 10/27/24 Medical management, failure of outpatient abx, previous decompression - History of Present Illness This is a pleasant 54-year-old female who presented to the emergency department and admitted under orthopedic services for failure of outpatient therapy with oral antibiotics from previous decompression with fusion and kyphoplasty of her thoracic spine that was done at the beginning of September. Patient has had a few hospitalizations and was scheduled to undergo revision with washout and patient refused surgery reporting she was not feeling well. Cultures were obtained at that time and were negative and sent on oral antibiotics per infectious disease recommending outpatient follow-up with orthopedics. Patient is back with persistent pain and failure of outpatient treatment with wound dehiscence of the area and continued drainage now agreeable to surgery and scheduled for wound revision with washout on 10/27/2024. Patient reports she follows with Dr. Ballard in the outpatient setting with a significant past medical history of asthma, heart failure, COPD, DVT, fibromyalgia, GERD, hyperlipidemia, hypertension, memory impairment with previous heart attacks, osteoarthritis, seizure disorder, thyroid disorder as well as restless legs, IBS, colitis. Patient also with significant anxiety, bipolar depression with PTSD smokes daily occasionally uses marijuana and denies any alcohol use. Patient does have a legal public guardian and reports to living with her significant other (boyfriend). Medical was consulted for medical management. 10/27/2024 Patient is seen in follow-up today currently n.p.o. she is awaiting to undergo thoracic spine intervention with Dr. Mchugh today. Patient is afebrile with no reports of chest pain or shortness of breath. Patient does continue with soft collar at this time. Awaiting operative report. Recommend follow-up labs in the a.m. and will continue to follow along with orthopedics closely. Review of systems: Constitutional: No reports of fatigue, fever, or chills Cardiovascular: No reports of chest pain or palpitations Respiratory: No reports of shortness of breath or cough GI: No reports of nausea, vomiting, or diarrhea : No reports of dysuria or retention Neurovascular: No reports of weakness, reports continued back pain and discomfort All medications have been reviewed PHYSICAL EXAMINATION: GENERAL: The patient is awake, alert and oriented x3, not in any acute distress. Well developed, thin built, elderly appearing HEENT: Pupils are round and equally reacting to light. EOMI. No scleral icterus. No conjunctival pallor. Normocephalic, atraumatic. No pharyngeal erythema. No thyromegaly. Soft collar in place CARDIOVASCULAR: S1 and S2 present. No murmurs, rubs, or gallops. PULMONARY: Diminished breath sounds bilaterally otherwise chest is clear to auscultation, no wheezing, coarse scattered rhonchi noted ABDOMEN: Soft, thin, nontender, nondistended, normoactive bowel sounds. No palpable organomegaly. MUSCULOSKELETAL: No joint swelling or deformity. EXTREMITIES: No cyanosis, clubbing, or pedal edema. NEUROLOGICAL: Gross neurological examination did not reveal any focal deficits. Diffusely weak SKIN: No rashes. Assessment: Ongoing back pain of the T-spine with failure of outpatient treatment on oral antibiotics History of recent C2-T7 decompression, fusion, fracture reduction with realignment of the T8 fracture Wound dehiscence of that previous surgical site due to pressure ulceration History of noncompliance Significant history of anxiety/depression/bipolar/PTSD Hypertension history Hyperlipidemia history Asthma/COPD history, not in exacerbation Continued ongoing nicotine abuse History of previous DVT History of GERD History of fibromyalgia History of memory impairment has a legal public guardian GI prophylaxis DVT prophylaxis Full code Plan: Patient was admitted under orthopedic services with failure of outpatient treatment. Patient is scheduled to undergo revision with washout today 10/27/2024, currently n.p.o. and diet will be resumed once cleared by surgery Recommend resuming home medications as appropriate Continue pain management per orthopedics Recommend PT/OT therapy evaluation postsurgical Encourage incentive spirometer use at least 10 times every hour while awake Nicotine patch as needed Will follow-up with repeat labs, replace electrolytes per protocol We will continue to follow with orthopedics during hospitalization. Thank you kindly for this consultation. The impression and plan of care has been dictated by Kristina Wells, Nurse Practitioner as directed. Dr. Jayson MD I have performed a history and examination and MDM of this patient, discussed the same with the dictator, and agree with the dictator's assessment and plan as written ,documented as a scribe. Based on total visit time, I have performed more than 50% of the visit. Objective - Vital Signs Vital signs: Vital Signs Temp 97.5 F L 10/27/24 02:24 Pulse 80 10/27/24 02:24 Resp 15 10/27/24 02:24 BP 102/66 10/27/24 02:24 Pulse Ox 93 L 10/27/24 02:24 FiO2 Intake & Output 10/26/24 10/26/24 10/27/24 06:59 18:59 06:59 Intake Total 200 Balance 200 Weight 45.359 kg Intake: Oral 200 Other: Voiding Method Toilet # Voids 1 3 1 - Labs CBC & Chem 7: 10/27/24 18:54 10/27/24 18:54 Labs: Microbiology - Last 24 Hours (Table) 10/25/24 13:03 Blood Culture - Preliminary Blood
[2024-10-28 04:57] LABS: African American GFR (CKD) >90 (>60 ml/min/1.73 sqM); Anion Gap 6 mmol/L; Blood Urea Nitrogen 8 mg/dL (7-17); Calcium 8.2 mg/dL (8.4-10.2); Carbon Dioxide 20 mmol/L (22-30); Chloride 107 mmol/L (98-107); Glucose 105 mg/dL (74-99); Non-African American GFR(CKD) >90 (>60 ml/min/1.73 sqM); Potassium 3.8 mmol/L (3.5-5.1); Sodium 133 mmol/L (137-145)
[2024-10-28 04:58] LABS: Basophils % (A) 0 %; Eosinophils % (A) 0 %; HCT 33.2 % (34.0-46.0); HGB 10.4 gm/dL (11.4-16.0); Hypochromasia Marked; Lymphocytes # (A) 1.1 k/uL (1.0-4.8); Lymphocytes % (A) 9 %; MCH 32.4 pg (25.0-35.0); MCHC 31.2 g/dL (31.0-37.0); MCV 103.7 fL (80.0-100.0); Macrocytosis Slight; Monocytes # (A) 0.6 k/uL (0-1.0); Monocytes % (A) 5 %; Neutrophils # (A) 11.2 k/uL (1.3-7.7); Neutrophils % (A) 86 %; Platelet Count 507 k/uL (150-450); RDW 14.8 % (11.5-15.5); WBC 13.1 k/uL (3.8-10.6)
[2024-10-28 05:23] LABS: Glucose,Whole Blood 111 mg/dL (70-110)
[2024-10-28 05:48] LABS: ABG Base Excess -3.1 mmol/L; ABG HCO3 22 mmol/L (21-25); ABG Oxygen Saturation 98.2 % (94-97); ABG PCO2 36 mmHg (35-45); ABG PH 7.39 (7.35-7.45); ABG PO2 145 mmHg (83-108); ABG TCO2 23 mmol/L (19-24); Allen Test Performed? Yes
[2024-10-28] MEDS: methylPREDNISolone SOD SUCCI 125 MG/2 ML VIAL IV SCH (05:50)
[2024-10-28] MEDS: POTASSIUM BICARBONATE/CIT AC 20 MEQ TABLET.EFF NG-TUBE SCH (06:48)
--- NOTE | 2024-10-28 06:59 | XR ---
EXAMINATION TYPE: XR chest 1V portable DATE OF EXAM: 10/28/2024 5:02 AM COMPARISON: 10/27/2024 CLINICAL INDICATION: Female, 54 years old with history of Tube placement, TECHNIQUE: XR chest 1V portable view(s) obtained. Patient is rotated to the left. FINDINGS: The heart size is normal. The pulmonary vasculature is normal. No focal consolidations are evident. Mild diffuse increased lung markings are present may related to some mild volume overload Endotracheal tube tip is 4 cm above the sergo. Nasogastric tube transverses the thorax. IMPRESSION: 1. Mild diffuse increased lung markings present bilaterally may be some mild volume overload. 2. Lines and catheters discussed above [facility], , 10/28/2024 6:56 AM
[2024-10-28] MEDS: BUDESONIDE 1 MG/2 ML NEBU INHALATION SCH (08:15)
[2024-10-28] MEDS: FORMOTEROL FUMARATE 20 MCG/2 ML NEBU INHALATION SCH (08:16)
[2024-10-28] MEDS: NOREPINEPHRINE 4 MG in SODIUM CHLORIDE 0.9% 250 ML IV SCH (08:53)
[2024-10-28] MEDS: CHLORHEXIDINE GLUCONATE 15 ML CUP MUCOUS MEM SCH (08:55)
[2024-10-28] MEDS: DEXMEDETOMIDINE/0.9% NACL(PMX) 400 MCG in EMPTY BAG 1 BAG IV SCH (11:34)
[2024-10-28] MEDS: fentaNYL (PF). 1,000 MCG in SODIUM CHLORIDE 0.9% 80 ML IV SCH (11:34)
[2024-10-28] MEDS: HYDROcodone/APAP 10-325MG 1 EACH TAB PO PRN (11:48)
--- NOTE | 2024-10-28 12:21 | P.PN ---
Subjective Progress Note Date: 10/28/24 Principal diagnosis: 1. WOUND DEHISCENCE THORACIC SPINE 2. T8 BURST COMPRESSION FRACTURE WITH KYPHOTIC DEFORMITY 3. S/P MULTIPLE FRACTURE SURGERIES AND REVISION 4. THORACIC BACK PAIN 5. COMPLEX MEDICAL PATIENT Patient currently intubated in ICU. Postop day 1 from spine surgery. Dressings present over thoracic spine. Pulmonology and medicine following closely. Objective - Vital Signs Vital signs: Vital Signs Temp 97.9 F 10/28/24 04:00 Pulse 106 H 10/28/24 08:35 Resp 22 10/28/24 07:00 BP 126/79 10/28/24 07:00 Pulse Ox 99 10/28/24 07:00 FiO2 40 10/28/24 08:15 Intake & Output 10/27/24 10/28/24 10/28/24 18:59 06:59 18:59 Intake Total 1652 3595.590 73.71 Output Total 450 905 Balance 1202 2690.590 73.71 Weight 45.359 kg 52.6 kg Intake: IV 1652 Intake, IV Titration 3595.590 73.71 Amount Cefepime 1 gm In Sodium 50 Chloride 0.9% 50 ml @ 12. 5 mls/hr IVPB Q8H [facility] Rx# :[id number] Phenylephrine 40 mg In 94.674 Sodium Chloride 0.9% 250 ml @ 0.5 MCG/KG/MIN 8.641 mls/hr IV .Q24H [facility] Rx#: [id number] Sodium Chloride 0.9% 1, 1100 000 ml @ 100 mls/hr IV . Q10H [facility] Rx#:[id number] Sodium Chloride 0.9% 2, 2000 000 ml @ 999 mls/hr IV . Q2H1M [facility] Rx#:[id number] Vancomycin 750 mg In 250 Sodium Chloride 0.9% 250 ml @ 125 mls/hr IVPB Q12HR@0200,1400 [facility] Rx#: [id number] ceFAZolin 2 gm In Sodium 50 Chloride 0.9% 50 ml @ 100 mls/hr IVPB Q8HR [facility] Rx# :[id number] propofoL 1,000 mg In 50.916 73.71 Empty Bag 1 bag @ 15 MCG/ KG/MIN 4.082 mls/hr IV . Q24H [facility] Rx#:[id number] Output: Drainage 150 Back 150 Urine 300 755 Estimated Blood Loss 150 Other: Voiding Method Indwelling Catheter ABP, PAP, CO, CI - Last Documented Arterial Blood Pressure 147/80 - Exam patient intubated, exam limited. Dressings appear to be clean, dry, intact over the spine. Assess dressings daily. Maintain drain to set full suction at this time. Radial pulse intact, 2+ bilaterally. Negative Homans bilaterally. Cap refill under 3 seconds in digits of upper extremities. Negative clonus bila terally. Negative Suhas bilaterally. - Labs CBC & Chem 7: 10/28/24 04:30 10/28/24 04:30 Labs: Abnormal Lab Results - Last 24 Hours (Table) 10/27/24 10/27/24 10/27/24 Range/Units 12:56 18:54 18:54 WBC 13.9 H (3.8-10.6) k/uL RBC 3.27 L (3.80-5.40) m/uL Hgb 10.4 L (11.4-16.0) gm/dL Hct (34.0-46.0) % MCV 104.9 H (80.0-100.0) fL MCHC 30.2 L (31.0-37.0) g/dL Plt Count 598 H (150-450) k/uL Neutrophils # 11.1 H (1.3-7.7) k/uL ABG pH (7.35-7.45) ABG pCO2 (35-45) mmHg ABG pO2 (83-108) mmHg ABG Total CO2 (19-24) mmol/L ABG O2 Saturation (94-97) % Hemoglobin (11.4-16.0) gm/dL Sodium 134 L 132 L (137-145) mmol/L Carbon Dioxide (22-30) mmol/L Creatinine (0.52-1.04) mg/dL Glucose (74-99) mg/dL POC Glucose (mg/dL) (70-110) mg/dL Calcium (8.4-10.2) mg/dL 10/27/24 10/27/24 10/27/24 Range/Units 19:46 20:55 22:54 WBC (3.8-10.6) k/uL RBC (3.80-5.40) m/uL Hgb (11.4-16.0) gm/dL Hct (34.0-46.0) % MCV (80.0-100.0) fL MCHC (31.0-37.0) g/dL Plt Count (150-450) k/uL Neutrophils # (1.3-7.7) k/uL ABG pH 7.11 L* 7.27 L (7.35-7.45) ABG pCO2 80 H* 50 H (35-45) mmHg ABG pO2 82 L 332 H (83-108) mmHg ABG Total CO2 28 H (19-24) mmol/L ABG O2 Saturation 92.1 L 100.0 H (94-97) % Hemoglobin 10.5 L 9.7 L (11.4-16.0) gm/dL Sodium (137-145) mmol/L Carbon Dioxide (22-30) mmol/L Creatinine (0.52-1.04) mg/dL Glucose (74-99) mg/dL POC Glucose (mg/dL) 129 H (70-110) mg/dL Calcium (8.4-10.2) mg/dL 10/28/24 10/28/24 10/28/24 Range/Units 04:30 04:30 05:22 WBC 13.1 H (3.8-10.6) k/uL RBC 3.20 L (3.80-5.40) m/uL Hgb 10.4 L (11.4-16.0) gm/dL Hct 33.2 L (34.0-46.0) % MCV 103.7 H (80.0-100.0) fL MCHC (31.0-37.0) g/dL Plt Count 507 H (150-450) k/uL Neutrophils # 11.2 H (1.3-7.7) k/uL ABG pH (7.35-7.45) ABG pCO2 (35-45) mmHg ABG pO2 (83-108) mmHg ABG Total CO2 (19-24) mmol/L ABG O2 Saturation (94-97) % Hemoglobin (11.4-16.0) gm/dL Sodium 133 L (137-145) mmol/L Carbon Dioxide 20 L (22-30) mmol/L Creatinine 0.51 L (0.52-1.04) mg/dL Glucose 105 H (74-99) mg/dL POC Glucose (mg/dL) 111 H (70-110) mg/dL Calcium 8.2 L (8.4-10.2) mg/dL 10/28/24 Range/Units 05:44 WBC (3.8-10.6) k/uL RBC (3.80-5.40) m/uL Hgb (11.4-16.0) gm/dL Hct (34.0-46.0) % MCV (80.0-100.0) fL MCHC (31.0-37.0) g/dL Plt Count (150-450) k/uL Neutrophils # (1.3-7.7) k/uL ABG pH (7.35-7.45) ABG pCO2 (35-45) mmHg ABG pO2 145 H (83-108) mmHg ABG Total CO2 (19-24) mmol/L ABG O2 Saturation 98.2 H (94-97) % Hemoglobin 10.1 L (11.4-16.0) gm/dL Sodium (137-145) mmol/L Carbon Dioxide (22-30) mmol/L Creatinine (0.52-1.04) mg/dL Glucose (74-99) mg/dL POC Glucose (mg/dL) (70-110) mg/dL Calcium (8.4-10.2) mg/dL Microbiology - Last 24 Hours (Table) 10/27/24 17:00 Gram Stain - Preliminary Other - Other 10/25/24 13:03 Blood Culture - Preliminary Blood Assessment and Plan Assessment: 1. 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 Patient currently intubated in ICU. Maintain dressings clean, dry, intact maintain drain at full suction at this time. We will continue to follow patient during stay in hospital. Pain medication as needed. Appreciate medical and pulmonology management. 2. Appreciate medical and pulmonology management 3. Pain management - gabapentin; flexeril; [place] 4. DVT prophylaxis - mechanical 5. GI prophylaxis - protonix 6. PT/OT -weightbearing as tolerated with walker and soft c-collar on at all times 7. Encourage incentive spirometer use Time with Patient: Less than 30
[2024-10-28 17:34] LABS: Glucose,Whole Blood 121 mg/dL (70-110)
[2024-10-28] MEDS: ONDANSETRON 4 MG/2 ML VIAL IVP PRN (17:38)
[2024-10-28] MEDS: LACTULOSE 20 GM/30 ML CUP PO ONE (18:41)
[2024-10-29 03:15] LABS: Basophils % (A) 0 %; Eosinophils % (A) 0 %; HCT 31.8 % (34.0-46.0); HGB 9.6 gm/dL (11.4-16.0); Hypochromasia Marked; Lymphocytes # (A) 1.1 k/uL (1.0-4.8); Lymphocytes % (A) 10 %; MCHC 30.3 g/dL (31.0-37.0); MCV 105.7 fL (80.0-100.0); Macrocytosis Moderate; Mean Platelet Volume 7.6; Monocytes # (A) 0.7 k/uL (0-1.0); Monocytes % (A) 6 %; Neutrophils # (A) 9.7 k/uL (1.3-7.7); Neutrophils % (A) 83 %; Platelet Count 461 k/uL (150-450); RBC 3.01 m/uL (3.80-5.40); RDW 15.2 % (11.5-15.5); WBC 11.7 k/uL (3.8-10.6)
[2024-10-29 03:52] LABS: African American GFR (CKD) >90 (>60 ml/min/1.73 sqM); Anion Gap 3 mmol/L; Blood Urea Nitrogen 7 mg/dL (7-17); Calcium 8.5 mg/dL (8.4-10.2); Carbon Dioxide 22 mmol/L (22-30); Chloride 112 mmol/L (98-107); Glucose 88 mg/dL (74-99); Non-African American GFR(CKD) >90 (>60 ml/min/1.73 sqM); Sodium 137 mmol/L (137-145)
--- NOTE | 2024-10-29 05:00 | P.PN ---
Subjective Progress Note Date: 10/28/24 - Reason for Consult Consult date: 10/27/24 Medical management, failure of outpatient abx, previous decompression - History of Present Illness This is a pleasant 54-year-old female who presented to the emergency department and admitted under orthopedic services for failure of outpatient therapy with oral antibiotics from previous decompression with fusion and kyphoplasty of her thoracic spine that was done at the beginning of September. Patient has had a few hospitalizations and was scheduled to undergo revision with washout and patient refused surgery reporting she was not feeling well. Cultures were obtained at that time and were negative and sent on oral antibiotics per infectious disease recommending outpatient follow-up with orthopedics. Patient is back with persistent pain and failure of outpatient treatment with wound dehiscence of the area and continued drainage now agreeable to surgery and scheduled for wound revision with washout on 10/27/2024. Patient reports she follows with Dr. Ballard in the outpatient setting with a significant past medical history of asthma, heart failure, COPD, DVT, fibromyalgia, GERD, hyperlipidemia, hypertension, memory impairment with previous heart attacks, osteoarthritis, seizure disorder, thyroid disorder as well as restless legs, IBS, colitis. Patient also with significant anxiety, bipolar depression with PTSD smokes daily occasionally uses marijuana and denies any alcohol use. Patient does have a legal public guardian and reports to living with her significant other (boyfriend). Medical was consulted for medical management. 10/27/2024 Patient is seen in follow-up today currently n.p.o. she is awaiting to undergo thoracic spine intervention with Dr. Mchugh today. Patient is afebrile with no reports of chest pain or shortness of breath. Patient does continue with soft collar at this time. Awaiting operative report. Recommend follow-up labs in the a.m. and will continue to follow along with orthopedics closely. 10/28/2024 Patient is seen in follow-up in the ICU status post washout and revision of the thoracic spine. Per nursing staff after postop patient was obtunded and concerns of protecting airway and was intubated and put in ICU for close monitoring with pulmonary consulted. Patient on exam had ET tube and NG tube in her hand and had self extubated. Patient was alert and oriented able to answer questions and commands appropriately. Plans were for extubation sometime today per pulmonary as patient was doing relatively well. Patient is maintained on antibiotics and cultures were obtained and pending. White count mildly elevated although likely reactive and will follow-up on repeat labs. Review of systems: Unable to completely assess as patient is intubated maintained on sedation PHYSICAL EXAMINATION: GENERAL: The patient is awake, alert and oriented x2, has just self extubated. Well developed, thin built, elderly appearing HEENT: Pupils are round and equally reacting to light. EOMI. No scleral icterus. No conjunctival pallor. Normocephalic, atraumatic. No pharyngeal erythema. No thyromegaly. CARDIOVASCULAR: S1 and S2 present. No murmurs, rubs, or gallops. PULMONARY: Diminished breath sounds bilaterally otherwise chest is clear to auscultation, no wheezing, coarse scattered rhonchi noted ABDOMEN: Soft, thin, nontender, nondistended, normoactive bowel sounds. No palpable organomegaly. MUSCULOSKELETAL: No joint swelling or deformity. EXTREMITIES: No cyanosis, clubbing, or pedal edema. NEUROLOGICAL: Gross neurological examination did not reveal any focal deficits. Diffusely weak SKIN: No rashes. Assessment: Ongoing back pain of the T-spine with failure of outpatient treatment on oral antibiotics, status post washout and revision of the thoracic spine with fusion T7-T11 10/27/2024 History of recent C2-T7 decompression, fusion, fracture reduction with realignment of the T8 fracture Wound dehiscence of that previous surgical site due to pressure ulceration History of noncompliance Significant history of anxiety/depression/bipolar/PTSD Hypertension history Hyperlipidemia history Asthma/COPD history, not in exacerbation Continued ongoing nicotine abuse History of previous DVT History of GERD History of fibromyalgia History of memory impairment has a legal public guardian GI prophylaxis DVT prophylaxis Full code Plan: Patient was admitted under orthopedic services with failure of outpatient treat ment. Patient underwent revision with washout 10/27/2024 Patient in the ICU as per nursing staff postsurgical patient was obtunded and concerns of protecting airway patient was reintubated and brought to the ICU for close monitoring. On exam this morning patient was found to have ET tube in her hand as well as OG tube and has just self extubated. Propofol was discontinued and patient was placed on nonrebreather briefly. Patient maintaining oxygen saturations and is awake and alert following commands and being placed on nasal cannula. Per pulmonary plan was for extubation today. Patient will continue in ICU for close monitoring until cleared by pulmonary and general surgery for downgrade home medications reviewed and resumed as appropriate Continue pain management per orthopedics Recommend PT/OT therapy evaluation postsurgical Encourage incentive spirometer use at least 10 times every hour while awake Nicotine patch as needed Will follow-up with repeat labs, replace electrolytes per protocol We will continue to follow with orthopedics during hospitalization. Thank you kindly for this consultation. The impression and plan of care has been dictated by Kristina Wells, Nurse Practitioner as directed. Dr. Jayson MD I have performed a history and examination and MDM of this patient, discussed the same with the dictator, and agree with the dictator's assessment and plan as written ,documented as a scribe. Based on total visit time, I have performed more than 50% of the visit. Objective - Vital Signs Vital signs: Vital Signs Temp 98.1 F 10/29/24 04:00 Pulse 93 10/29/24 04:00 Resp 12 10/29/24 04:00 BP 101/63 10/29/24 04:00 Pulse Ox 100 10/29/24 04:00 FiO2 40 10/28/24 09:00 Intake & Output 10/28/24 10/28/24 10/29/24 06:59 18:59 06:59 Intake Total 3595.590 2223.648 600 Output Total 905 760 370 Balance 2690.590 1463.648 230 Weight 52.6 kg Intake: IV 1400 600 Sodium Chloride 0.9% 1, 1100 600 000 ml @ 100 mls/hr IV . Q10H [facility] Rx#:[id number] Vancomycin 750 mg In 250 Sodium Chloride 0.9% 250 ml @ 125 mls/hr IVPB Q12HR@0200,1400 [facility] Rx#: [id number] ceFAZolin 2 gm In Sodium 50 Chloride 0.9% 50 ml @ 100 mls/hr IVPB Q8HR [facility] Rx# :[id number] Intake, IV Titration 3595.590 103.648 Amount Cefepime 1 gm In Sodium 50 Chloride 0.9% 50 ml @ 12. 5 mls/hr IVPB Q8H [facility] Rx# :[id number] Phenylephrine 40 mg In 94.674 Sodium Chloride 0.9% 250 ml @ 0.5 MCG/KG/MIN 8.641 mls/hr IV .Q24H [facility] Rx#: [id number] Sodium Chloride 0.9% 1, 1100 000 ml @ 100 mls/hr IV . Q10H [facility] Rx#:[id number] Sodium Chloride 0.9% 2, 2000 000 ml @ 999 mls/hr IV . Q2H1M [facility] Rx#:[id number] Vancomycin 750 mg In 250 Sodium Chloride 0.9% 250 ml @ 125 mls/hr IVPB Q12HR@0200,1400 [facility] Rx#: [id number] ceFAZolin 2 gm In Sodium 50 Chloride 0.9% 50 ml @ 100 mls/hr IVPB Q8HR [facility] Rx# :[id number] propofoL 1,000 mg In 50.916 103.648 Empty Bag 1 bag @ 15 MCG/ KG/MIN 4.082 mls/hr IV . Q24H [facility] Rx#:[id number] Oral 720 Tube Feeding 0 Output: Drainage 150 90 Back 150 90 Urine 755 670 370 Other: Voiding Method Indwelling Catheter Indwelling Catheter Indwelling Catheter # Bowel Movements 0 ABP, PAP, CO, CI - Last Documented Arterial Blood Pressure 144/79 - Labs CBC & Chem 7: 10/29/24 02:35 10/29/24 02:35 Labs: Abnormal Lab Results - Last 24 Hours (Table) 10/28/24 10/28/24 10/28/24 Range/Units 04:30 04:30 05:22 WBC 13.1 H (3.8-10.6) k/uL RBC 3.20 L (3.80-5.40) m/uL Hgb 10.4 L (11.4-16.0) gm/dL Hct 33.2 L (34.0-46.0) % MCV 103.7 H (80.0-100.0) fL MCHC (31.0-37.0) g/dL Plt Count 507 H (150-450) k/uL Neutrophils # 11.2 H (1.3-7.7) k/uL ABG pO2 (83-108) mmHg ABG O2 Saturation (94-97) % Hemoglobin (11.4-16.0) gm/dL Sodium 133 L (137-145) mmol/L Chloride (98-107) mmol/L Carbon Dioxide 20 L (22-30) mmol/L Creatinine 0.51 L (0.52-1.04) mg/dL Glucose 105 H (74-99) mg/dL POC Glucose (mg/dL) 111 H (70-110) mg/dL Calcium 8.2 L (8.4-10.2) mg/dL 10/28/24 10/28/24 10/29/24 Range/Units 05:44 17:31 02:35 WBC (3.8-10.6) k/uL RBC (3.80-5.40) m/uL Hgb (11.4-16.0) gm/dL Hct (34.0-46.0) % MCV (80.0-100.0) fL MCHC (31.0-37.0) g/dL Plt Count (150-450) k/uL Neutrophils # (1.3-7.7) k/uL ABG pO2 145 H (83-108) mmHg ABG O2 Saturation 98.2 H (94-97) % Hemoglobin 10.1 L (11.4-16.0) gm/dL Sodium (137-145) mmol/L Chloride 112 H (98-107) mmol/L Carbon Dioxide (22-30) mmol/L Creatinine (0.52-1.04) mg/dL Glucose (74-99) mg/dL POC Glucose (mg/dL) 121 H (70-110) mg/dL Calcium (8.4-10.2) mg/dL 10/29/24 Range/Units 02:35 WBC 11.7 H (3.8-10.6) k/uL RBC 3.01 L (3.80-5.40) m/uL Hgb 9.6 L (11.4-16.0) gm/dL Hct 31.8 L (34.0-46.0) % MCV 105.7 H (80.0-100.0) fL MCHC 30.3 L (31.0-37.0) g/dL Plt Count 461 H (150-450) k/uL Neutrophils # 9.7 H (1.3-7.7) k/uL ABG pO2 (83-108) mmHg ABG O2 Saturation (94-97) % Hemoglobin (11.4-16.0) gm/dL Sodium (137-145) mmol/L Chloride (98-107) mmol/L Carbon Dioxide (22-30) mmol/L Creatinine (0.52-1.04) mg/dL Glucose (74-99) mg/dL POC Glucose (mg/dL) (70-110) mg/dL Calcium (8.4-10.2) mg/dL Microbiology - Last 24 Hours (Table) 10/25/24 13:03 Blood Culture - Preliminary Blood 10/27/24 17:00 Gram Stain - Preliminary Other - Other Wound Culture - Preliminary 10/27/24 16:54 Gram Stain - Preliminary Other - Other
--- NOTE | 2024-10-29 07:51 | XR ---
EXAMINATION TYPE: XR chest 1V portable DATE OF EXAM: 10/29/2024 5:41 AM COMPARISON: 10/28/2024 CLINICAL INDICATION: Female, 54 years old with history of post extubation, TECHNIQUE: XR chest 1V portable view(s) obtained. Patient is rotated to the right. FINDINGS: The heart size is normal. The pulmonary vasculature is prominent. Diffuse groundglass opacities may be present. Correlate for volume overload. Multiple pedicle screws and fixation rods through the thoracic and lumbar spine are present. IMPRESSION: 1. Correlate for volume overload. [facility], , 10/29/2024 7:49 AM
--- NOTE | 2024-10-29 09:22 | P.PN ---
Subjective Progress Note Date: 10/29/24 Principal diagnosis: 1. WOUND DEHISCENCE THORACIC SPINE 2. T8 BURST COMPRESSION FRACTURE WITH KYPHOTIC DEFORMITY 3. S/P MULTIPLE FRACTURE SURGERIES AND REVISION 4. THORACIC BACK PAIN 5. COMPLEX MEDICAL PATIENT Patient seen at bedside this morning in ICU currently receiving breathing treatment. Dressing was changed at bedside this morning. Patient mentions she is still having a lot of pain in the back at this time. ICU planning on transferring patient to 4 S. later today. Objective - Vital Signs Vital signs: Vital Signs Temp 98.1 F 10/29/24 04:00 Pulse 100 10/29/24 08:36 Resp 14 10/29/24 07:00 BP 117/61 10/29/24 07:00 Pulse Ox 99 10/29/24 08:36 FiO2 40 10/28/24 09:00 Intake & Output 10/28/24 10/29/24 10/29/24 18:59 06:59 18:59 Intake Total 2223.648 1350 100 Output Total 760 645 60 Balance 1463.648 705 40 Weight 52.6 kg Intake: IV 1400 1350 100 Sodium Chloride 0.9% 1, 1100 1100 100 000 ml @ 100 mls/hr IV . Q10H [facility] Rx#:[id number] Vancomycin 750 mg In 250 250 Sodium Chloride 0.9% 250 ml @ 125 mls/hr IVPB Q12HR@0200,1400 [facility] Rx#: [id number] ceFAZolin 2 gm In Sodium 50 Chloride 0.9% 50 ml @ 100 mls/hr IVPB Q8HR [facility] Rx# :[id number] Intake, IV Titration 103.648 Amount propofoL 1,000 mg In 103.648 Empty Bag 1 bag @ 15 MCG/ KG/MIN 4.082 mls/hr IV . Q24H [facility] Rx#:[id number] Oral 720 Tube Feeding 0 Output: Drainage 90 Back 90 Urine 670 645 60 Other: Voiding Method Indwelling Catheter Indwelling Catheter # Bowel Movements 0 ABP, PAP, CO, CI - Last Documented Arterial Blood Pressure 144/79 - Exam Incision appears to be clean, dry, intact. Negative for any drainage. Fair amount of output in drain overnight. Maintain drain to full suction at this time. Sensation is equal, symmetric, bilat intact throughout the upper and lower extremities on exam. Patient does have tenderness palpation over the incision. Nontender on rest of exam. Patient does have good range of motion on exam. 4/5 in all major motor groups in bilateral upper and lower extremities. Radial pulse intact, 2+ bilaterally. Negative Homans bilaterally. Cap refill under 3 seconds in digits of upper extremities. Negative clonus bilaterally. Negative Suhas bilaterally. - Labs CBC & Chem 7: 10/29/24 02:35 10/29/24 02:35 Labs: Abnormal Lab Results - Last 24 Hours (Table) 10/28/24 10/29/24 10/29/24 Range/Units 17:31 02:35 02:35 WBC 11.7 H (3.8-10.6) k/uL RBC 3.01 L (3.80-5.40) m/uL Hgb 9.6 L (11.4-16.0) gm/dL Hct 31.8 L (34.0-46.0) % MCV 105.7 H (80.0-100.0) fL MCHC 30.3 L (31.0-37.0) g/dL Plt Count 461 H (150-450) k/uL Neutrophils # 9.7 H (1.3-7.7) k/uL Chloride 112 H (98-107) mmol/L POC Glucose (mg/dL) 121 H (70-110) mg/dL Microbiology - Last 24 Hours (Table) 10/25/24 13:03 Blood Culture - Preliminary Blood 10/27/24 17:00 Gram Stain - Preliminary Other - Other Wound Culture - Preliminary 10/27/24 16:54 Gram Stain - Preliminary Other - Other Assessment and Plan Assessment: 1. WOUND DEHISCENCE THORACIC SPINE; T8 BURST COMPRESSION FRACTURE WITH KYPHOTIC DEFORMITY; S/P MULTIPLE FRACTURE SURGERIES AND REVISION; THORACIC BACK PAIN - Postop day 2 status post open treatment T8 fracture; irrigation and excisional debridement of thoracic spine wound; posterior lateral instrumented fusion T7- T11 Plan: 1. WOUND DEHISCENCE THORACIC SPINE; T8 BURST COMPRESSION FRACTURE WITH KYPHOTIC DEFORMITY; S/P MULTIPLE FRACTURE SURGERIES AND REVISION; THORACIC BACK PAIN - surgery performed , 10/27/2024open treatment T8 fracture; irrigation and excisional debridement of thoracic spine wound; posterior lateral instrumented fusion T7-T11. Patient currently in ICU. Dressing changed at bedside this morning. Maintain drain at full suction at this time. We will continue to fo llow patient during stay in hospital. Pain medication as needed. Appreciate medical and pulmonology management. 2. Appreciate medical and pulmonology management 3. Pain management - gabapentin; flexeril; [place] 4. DVT prophylaxis - mechanical 5. GI prophylaxis - protonix 6. PT/OT -weightbearing as tolerated with walker and soft c-collar on at all times 7. Encourage incentive spirometer use 8. Discharge planning -pending Time with Patient: Less than 30
[2024-10-29] MEDS: MAGNESIUM HYDROXIDE 2,400 MG/30 ML CUP PO PRN (09:56)
[2024-10-29] MEDS: ACETAMINOPHEN TAB 325 MG TAB PO PRN (09:56)
--- NOTE | 2024-10-29 12:54 | P.PN ---
Subjective Progress Note Date: 10/29/24 Patient is a 54-year-old female with past medical history significant for asthm a/COPD, hypertension, hyperlipidemia, CAD, heart failure, DVT, hypothyroidism, seizure disorder, osteoarthritis and multiple previous back surgeries. Most recently, underwent open treatment of T2 vertebral fracture and revision of C2- T7 posterior lateral fusion on 09/09/2024. Concerns for surgical site infection on outpatient basis, and was treated with antibiotics. On 10/24/2024 she was seen in the emergency department for continued concerns of a surgical site infection. Reports of thoracic level pain and green/brown discharge. Unfortunately, patient left AGAINST MEDICAL ADVICE. Patient returned the following day with similar complaints, and was admitted to the hospital. Patient was taken back to the operating room and did undergo open treatment of a T8 fracture, irrigation and excisional debridement of thoracic spine wound measuring 10 x 7 x 4 cm, posterior lateral instrumented fusion of T7-T11 and cement augmentation of T8-T10 vertebral bodies. Following the surgery, patient was extubated in the postanesthesia care unit, and transferred to the intensive care unit. Per the ICU nurse, patient was on a 6 L simple mask and obtunded. ABGs consistent with severe hypercapnic respiratory failure. Patient was trialed on BiPAP with settings 14/5 and FiO2 50%. Repeat ABG showing only minimal improvement with a PaO2 of 85, pCO2 75, pH of 7.12. Dr. Dumont was previously contacted and gave orders to intubate the patient, and this was done by [facility] RE[facility] OPERATOR at 2225. I am seeing this patient in room 252 following the intubation. Postintubation chest x-ray showing the ET tube tip approximately 2 to 3 cm above the sergo, orogastric tube in satisfactory position, cervical and thoracic postsurgical hardware, hyperinflation consistent with COPD. Current ventilator settings AC, respiratory rate 18, tidal volume 400, FiO2 100 %, PEEP of 5. Follow-up ABGs, showing a PaO2 of 332, pCO2 50, pH is 7.26. Appropriate adjustments were made. Peak pressures are elevated at 34 and static airway pressure is 21. She does have diffuse expiratory wheezing. Started on combination of DuoNebs, formoterol and budesonide inhalations, and steroids. No secretions in the ET tube. No reported aspiration events. Propofol is going to be started. She does have a Hemovac drain with small amount of sanguinous output. Also, started on some empiric antibiotics in the form of cefepime and vancomycin. Blood and wound cultures are pending. CBC: WBC count 13.9, hemoglobin 10.4, platelets 598. Preop BMP includes a sodium 134, potassium 3.9, chloride 105, serum bicarb 25, BUN 13, creatinine 0.6, glucose 89. Was noted to be hypotensive following intubation, and was given 2 L of normal saline bolused. Blood pressure now normotensive. Normal saline continuous at 100 mL/h. 10/29/2024, the patient is calm and comfortable, still complaining of pain in her back. Able to move all 4 extremities without any limitation. A bit sleepy. No significant shortness of breath. Surgical wound is dry. Hemovac is in place. Output is 10 cc over the past 8 hours. Fluid balance is +1.1 L and the patient remains on normal citrate of 100 cc an hour. No other significant events overnight. She is extubated. White cell count is 11 hemoglobin 9.6 and a platelet count of 461. Sodium is at 137, potassium is 4, BUN 7 with a creatinine of 0.5. Calcium level is at 8.5. Objective - Vital Signs Vital signs: Vital Signs Temp 98.1 F 10/29/24 04:00 Pulse 93 10/29/24 07:00 Resp 14 10/29/24 07:00 BP 117/61 10/29/24 07:00 Pulse Ox 97 10/29/24 07:00 FiO2 40 10/28/24 09:00 Intake & Output 10/28/24 10/29/24 10/29/24 18:59 06:59 18:59 Intake Total 2223.648 1350 100 Output Total 760 645 60 Balance 1463.648 705 40 Weight 52.6 kg Intake: IV 1400 1350 100 Sodium Chloride 0.9% 1, 1100 1100 100 000 ml @ 100 mls/hr IV . Q10H [facility] Rx#:[id number] Vancomycin 750 mg In 250 250 Sodium Chloride 0.9% 250 ml @ 125 mls/hr IVPB Q12HR@0200,1400 [facility] Rx#: [id number] ceFAZolin 2 gm In Sodium 50 Chloride 0.9% 50 ml @ 100 mls/hr IVPB Q8HR [facility] Rx# :[id number] Intake, IV Titration 103.648 Amount propofoL 1,000 mg In 103.648 Empty Bag 1 bag @ 15 MCG/ KG/MIN 4.082 mls/hr IV . Q24H [facility] Rx#:[id number] Oral 720 Tube Feeding 0 Output: Drainage 90 Back 90 Urine 670 645 60 Other: Voiding Method Indwelling Catheter Indwelling Catheter # Bowel Movements 0 ABP, PAP, CO, CI - Last Documented Arterial Blood Pressure 144/79 - Exam GENERAL EXAM: Sedated, 54-year-old white female, on 2 L of oxygen by nasal cannula, awake and alert HEAD: Normocephalic and atraumatic EYES: Normal reaction of pupils, equal size. NOSE: Clear with pink turbinates. THROAT: No erythema or exudates. Orogastric tube noted NECK: No masses, no JVD. CHEST: No chest wall deformity. LUNGS: Diminished breath sound bilaterally, no significant wheezing. Scar over the back is dry clean and intact. Hemovac is in place. CVS: S1 and S2 normal with no audible murmur, regular rhythm. No extra heart sounds ABDOMEN: No hepatosplenomegaly, active bowel sounds, no guarding or rigidity. SPINE: No scoliosis or deformity SKIN: No rashes CENTRAL NERVOUS SYSTEM: Sleepy, awake and alert, appears to move all 4 extremities, nonfocal EXTREMITIES: There is no peripheral edema, clubbing, or cyanosis. Peripheral pulses are intact. - Labs CBC & Chem 7: 10/29/24 02:35 10/29/24 02:35 Labs: Abnormal Lab Results - Last 24 Hours (Table) 10/28/24 10/29/24 10/29/24 Range/Units 17:31 02:35 02:35 WBC 11.7 H (3.8-10.6) k/uL RBC 3.01 L (3.80-5.40) m/uL Hgb 9.6 L (11.4-16.0) gm/dL Hct 31.8 L (34.0-46.0) % MCV 105.7 H (80.0-100.0) fL MCHC 30.3 L (31.0-37.0) g/dL Plt Count 461 H (150-450) k/uL Neutrophils # 9.7 H (1.3-7.7) k/uL Chloride 112 H (98-107) mmol/L POC Glucose (mg/dL) 121 H (70-110) mg/dL Microbiology - Last 24 Hours (Table) 10/25/24 13:03 Blood Culture - Preliminary Blood 10/27/24 17:00 Gram Stain - Preliminary Other - Other Wound Culture - Preliminary 10/27/24 16:54 Gram Stain - Preliminary Other - Other Assessment and Plan Assessment: Status postoperative day #2 following open treatment of a T8 fracture, irrigation and excisional debridement of thoracic spine wound measuring 10 x 7 x 4 cm, posterior lateral instrumented fusion of T7-T11 and cement augmentation of T8-T10 vertebral bodies. Extubated on 10/28/2024 and currently the patient on 2 L of oxygen by nasal cannula. Acute hypoxemic and hypercapnic respiratory failure, recovered and the patient is currently on 2 L of O2 nasal cannula Chronic obstructive pulmonary disease/asthma, currently inactive and stable T2 vertebral fracture with revision of C2-T7 posterior lateral fusion on 09/09/2024 Surgical site infection and wound dehiscence, wound and blood cultures pending Acute leukocytosis Macrocytic anemia History of hypertension History of hyperlipidemia History of coronary artery disease History of heart failure with preserved ejection fraction History of gastroesophageal reflux disease History of seizure disorder History of hypothyroidism History of anxiety/depression/PTSD Plan: Incentive spirometer Oxygen at 2 L/min nasal cannula Start combination of DuoNebs budesonide and formoterol inhalation Discontinue IV steroids Blood and wound cultures pending Empiric antibiotics are continued Follow-up CT of the thoracic spine is ordered Chest x-ray is clear consistent with COPD We will move this patient outside the ICU and send her to a medical surgical floor.
--- NOTE | 2024-10-29 14:31 | CT ---
EXAMINATION TYPE: CT thoracic spine wo con DATE OF EXAM: 10/29/2024 11:04 AM COMPARISON: None. CLINICAL INDICATION: Female, 54 years old with history of Wound revision and washout with primary hayder sure,T8, Wound revision and washout with primary closure,T8 TECHNIQUE: Contrast used: mL of , (none if empty) Oral contrast used: (none if empty) Axial images at 5 mm thick sections. Reconstructed images in the coronal and sagittal planes. FINDINGS: Beam hardening artifact from multilevel pedicle screws and fixation rods are present. This causes pérez itation in the evaluation. Spinal canal is largely nondiagnostic. Some loss of vertebral body height is noted in the lower cervi bettye upper thoracic level which does not have pedicle screw. A number of levels have cement present. S ignificant vertebral body height loss is not evident elsewhere within the thoracic spine. A severe co mpression deformity of what appears to be the upper lumbar spine is within the [id number], present previously and stable. Best appreciated in the coronal plane are multiple small beads which may be related to antibiotic rel ease. These are in the posterior element region of the surgery site. No suspicious abscess formation is identified. COMPARISON: IMPRESSION: 1. LIMITED EXAMINATION. 2. NO SUSPICIOUS INTERVAL CHANGE. 3. NO SUSPICIOUS RADIOGRAPHIC CHANGES IDENTIFIED TO LOCALIZE INFECTION. [facility], Workstation: [id number], 10/29/2024 2:29 PM
[2024-10-29] MEDS: bisacodyL 10 MG SUPP RECTAL PRN (16:13)
[2024-10-29] MEDS: LACTULOSE 20 GM/30 ML CUP PO PRN (16:32)
--- NOTE | 2024-10-29 17:14 | XR ---
EXAMINATION TYPE: XR abdomen 1V DATE OF EXAM: 10/29/2024 4:48 PM COMPARISON: 06/02/2024 CLINICAL INDICATION: Female, 54 years old with history of Constipation; TECHNIQUE: One radiographic view of the abdomen was obtained. FINDINGS: Gaseous dilation of bowel throughout the abdomen.. There is no evidence for organomegaly or pneumoperitoneum. No acute osseous process. No abnormal calcifications are present. Extensive post surgical changes spine, hardware appears intact. IMPRESSION: Gaseous dilation of bowel throughout the abdomen. Nonspecific bowel gas pattern without radiographic evidence for acute process. [facility], , 10/29/2024 5:12 PM
--- NOTE | 2024-10-29 19:23 | P.PN ---
Subjective Progress Note Date: 10/29/24 This is a pleasant 54-year-old female who presented to the emergency department and admitted under orthopedic services for failure of outpatient therapy with oral antibiotics from previous decompression with fusion and kyphoplasty of her thoracic spine that was done at the beginning of September. Patient has had a few hospitalizations and was scheduled to undergo revision with washout and patient refused surgery reporting she was not feeling well. Cultures were obtained at that time and were negative and sent on oral antibiotics per infectious disease recommending outpatient follow-up with orthopedics. Patient is back with persistent pain and failure of outpatient treatment with wound dehiscence of the area and continued drainage now agreeable to surgery and scheduled for wound revision with washout on 10/27/2024. Patient reports she follows with Dr. Ballard in the outpatient setting with a significant past medical history of asthma, heart failure, COPD, DVT, fibromyalgia, GERD, hyperlipidemia, hypertension, memory impairment with previous heart attacks, osteoarthritis, seizure disorder, thyr oid disorder as well as restless legs, IBS, colitis. Patient also with significant anxiety, bipolar depression with PTSD smokes daily occasionally uses marijuana and denies any alcohol use. Patient does have a legal public guardian and reports to living with her significant other (boyfriend). Medical was consulted for medical management. 10/27/2024 Patient is seen in follow-up today currently n.p.o. she is awaiting to undergo thoracic spine intervention with Dr. Mchugh today. Patient is afebrile with no reports of chest pain or shortness of breath. Patient does continue with soft collar at this time. Awaiting operative report. Recommend follow-up labs in the a.m. and will continue to follow along with orthopedics closely. 10/28/2024 Patient is seen in follow-up in the ICU status post washout and revision of the thoracic spine. Per nursing staff after postop patient was obtunded and concerns of protecting airway and was intubated and put in ICU for close monitoring with pulmonary consulted. Patient on exam had ET tube and NG tube in her hand and had self extubated. Patient was alert and oriented able to answer questions and commands appropriately. Plans were for extubation sometime today per pulmonary as patient was doing relatively well. Patient is maintained on a ntibiotics and cultures were obtained and pending. White count mildly elevated although likely reactive and will follow-up on repeat labs. 10/29/2024 Patient evaluated today in the ICU currently sitting up in the chair eating lunch. Postoperative day #2 washout and revision of the thoracic spine. Hemovac remains in place. Reports pain today at about a 5/10. She is currently on 2L of oxygen via nasal cannula. Patient not having any significant complaints today. Continues on IV cefepime and IV vancomycin. Chest xray this morning shows concern for volume overload. Sodium is better at 137, BUN 7, creatinine 0.53, white blood cell count 11.7. hgb 9.6. She is 98% on 3L of oxygen. Does not appear volume overloaded. Review of Systems Constitutional: Denied any fatigue denied any fever. Cardio vascular: denied any chest pain, palpitations Gastrointestinal: denied any nausea, vomiting, diarrhea Reports constipation Pulmonary: Denied any shortness of breath cough Neurologic denied any new focal deficits All inpatient medications were reviewed and appropriate changes in these medications as dictated in the interval history and assessment and plan. PHYSICAL EXAMINATION: GENERAL: The patient is awake, alert and oriented x2, has just self extubated. Well developed, thin built, elderly appearing HEENT: Pupils are round and equally reacting to light. EOMI. No scleral icterus. No conjunctival pallor. Normocephalic, atraumatic. No pharyngeal erythema. No thyromegaly. CARDIOVASCULAR: S1 and S2 present. No murmurs, rubs, or gallops. Diminished PULMONARY: Diminished breath sounds bilaterally otherwise chest is clear to auscultation, no wheezing, coarse scattered rhonchi noted ABDOMEN: Soft, thin, nontender, nondistended, normoactive bowel sounds. No palpable organomegaly. MUSCULOSKELETAL: No joint swelling or deformity. EXTREMITIES: No cyanosis, clubbing, or pedal edema. NEUROLOGICAL: Gross neurological examination did not reveal any focal deficits. Diffusely weak SKIN: No rashes. Assessment: Ongoing back pain of the T-spine with failure of outpatient treatment on oral antibiotics, status post washout and revision of the thoracic spine with fusion T7-T11 10/27/2024 Acute hypoxemic respiratory failure; self extubated on 10/28/2024 History of recent C2-T7 decompression, fusion, fracture reduction with realignment of the T8 fracture Wound dehiscence of that previous surgical site due to pressure ulceration History of noncompliance Significant history of anxiety/depression/bipolar/PTSD Hypertension history Hyperlipidemia history Asthma/COPD history, not in exacerbation Continued ongoing nicotine abuse History of previous DVT History of GERD History of fibromyalgia History of memory impairment has a legal public guardian GI prophylaxis DVT prophylaxis Full code Plan: Patient was admitted under orthopedic services with failure of outpatient treatment. Patient underwent revision with washout 10/27/2024 Patient will continue in ICU for close monitoring until cleared by pulmonary and general surgery for downgrade home medications reviewed and resumed as appropriate Continue pain management per orthopedics Recommend PT/OT therapy evaluation postsurgical Encourage incentive spirometer use at least 10 times every hour while awake Nicotine patch as needed Check abdominal xray and add bowel regiment including dulcolax and lactulose. Will follow-up with repeat labs, replace electrolytes per protocol We will continue to follow with orthopedics during hospitalization. Thank you kindly for this consultation. The impression and plan of care has been dictated by Nichelle Loya, Nurse Practitioner as directed. Dr. Jayson MD I have performed a history and physical examination and medical decision making of this patient, discussed the same with the dictator, and agree with the dictators assessment and plan as written, documented as a scribe. Based on total visit time, I have performed more than 50% of this visit. Objective - Vital Signs Vital signs: Vital Signs Temp 97.7 F 10/29/24 14:00 Pulse 80 10/29/24 16:06 Resp 18 10/29/24 14:00 BP 123/81 10/29/24 16:32 Pulse Ox 98 10/29/24 14:00 FiO2 40 10/28/24 09:00 Intake & Output 10/29/24 10/29/24 10/30/24 06:59 18:59 06:59 Intake Total 1350 570 Output Total 645 300 Balance 705 270 Weight 52.6 kg Intake: IV 1350 330 Invasive Line 4 10 Invasive Line 6 20 Sodium Chloride 0.9% 1, 1100 300 000 ml @ 100 mls/hr IV . Q10H [facility] Rx#:[id number] Vancomycin 750 mg In 250 Sodium Chloride 0.9% 250 ml @ 125 mls/hr IVPB Q12HR@0200,1400 [facility] Rx#: [id number] Oral 240 Output: Drainage 15 Back 15 Urine 645 285 Emesis 0 Other: Voiding Method Indwelling Catheter Indwelling Catheter # Bowel Movements 0 ABP, PAP, CO, CI - Last Documented Arterial Blood Pressure 144/79 - Labs CBC & Chem 7: 10/29/24 02:35 10/29/24 02:35 Labs: Abnormal Lab Results - Last 24 Hours (Table) 10/29/24 10/29/24 Range/Units 02:35 02:35 WBC 11.7 H (3.8-10.6) k/uL RBC 3.01 L (3.80-5.40) m/uL Hgb 9.6 L (11.4-16.0) gm/dL Hct 31.8 L (34.0-46.0) % MCV 105.7 H (80.0-100.0) fL MCHC 30.3 L (31.0-37.0) g/dL Plt Count 461 H (150-450) k/uL Neutrophils # 9.7 H (1.3-7.7) k/uL Chloride 112 H (98-107) mmol/L Microbiology - Last 24 Hours (Table) 10/27/24 17:00 Gram Stain - Preliminary Other - Other Wound Culture - Preliminary 10/27/24 16:54 Gram Stain - Preliminary Other - Other Wound Culture - Preliminary 10/25/24 13:03 Blood Culture - Preliminary Blood Assessment and Plan Time with Patient: Less than 30
[2024-10-29 23:20] LABS: Amorphous Sediment,Urine Rare /hpf; Appearance,Urine Clear (Clear); Bilirubin,Urine Negative (Negative); Blood,Urine Trace (Negative); Color,Urine Light Yellow; Glucose,Urine (UA) Negative (Negative); Hyaline Casts,Urine 41 /lpf (0-2); Ketones,Urine Negative (Negative); Leukocyte Esterase,Urine Negative (Negative); Mucus,Urine Rare /hpf; Nitrite,Urine Negative (Negative); PH, Urine 5.5 (5.0-8.0); Protein,Urine Trace (Negative); RBC,Urine 5 /hpf (0-5); Specific Gravity,Urine 1.016 (1.001-1.035); Urobilinogen,Urine <2.0 mg/dL (<2.0); WBC,Urine 4 /hpf (0-5)
[2024-10-30] MEDS: HYDROmorphone 0.5 MG/0.5 ML SYRINGE IVP PRN (02:15)
[2024-10-30 09:18] LABS: African American GFR (CKD) >90 (>60 ml/min/1.73 sqM); Anion Gap 7 mmol/L; Blood Urea Nitrogen 6 mg/dL (7-17); Calcium 8.7 mg/dL (8.4-10.2); Carbon Dioxide 20 mmol/L (22-30); Chloride 110 mmol/L (98-107); Glucose 87 mg/dL (74-99); Magnesium 1.8 mg/dL (1.6-2.3); Non-African American GFR(CKD) >90 (>60 ml/min/1.73 sqM); Potassium 3.4 mmol/L (3.5-5.1); Sodium 137 mmol/L (137-145)
[2024-10-30 09:21] LABS: Basophils % (A) 0 %; Eosinophils # (A) 0.2 k/uL (0-0.7); Eosinophils % (A) 1 %; HCT 30.8 % (34.0-46.0); HGB 9.6 gm/dL (11.4-16.0); Hypochromasia Marked; Lymphocytes # (A) 0.9 k/uL (1.0-4.8); Lymphocytes % (A) 7 %; MCH 32.5 pg (25.0-35.0); MCHC 31.1 g/dL (31.0-37.0); MCV 104.5 fL (80.0-100.0); Macrocytosis Moderate; Monocytes # (A) 0.8 k/uL (0-1.0); Monocytes % (A) 6 %; Neutrophils % (A) 85 %; Platelet Count 355 k/uL (150-450); RBC 2.94 m/uL (3.80-5.40); RDW 15.2 % (11.5-15.5)
[2024-10-30] MEDS: SODIUM CHLORIDE 0.9% 1,000 ML IV SCH (09:36)
[2024-10-30] MEDS: HYDROcodone/APAP 5-325MG 1 EACH TAB PO PRN (10:39)
[2024-10-30] MEDS: SENNOSIDES-DOCUSATE SODIUM 1 EACH TAB PO PRN (10:52)
--- NOTE | 2024-10-30 12:41 | P.PN ---
Subjective Progress Note Date: 10/30/24 Patient is a 54-year-old female with past medical history significant for asthm a/COPD, hypertension, hyperlipidemia, CAD, heart failure, DVT, hypothyroidism, seizure disorder, osteoarthritis and multiple previous back surgeries. Most recently, underwent open treatment of T2 vertebral fracture and revision of C2- T7 posterior lateral fusion on 09/09/2024. Concerns for surgical site infection on outpatient basis, and was treated with antibiotics. On 10/24/2024 she was seen in the emergency department for continued concerns of a surgical site infection. Reports of thoracic level pain and green/brown discharge. Unfortunately, patient left AGAINST MEDICAL ADVICE. Patient returned the following day with similar complaints, and was admitted to the hospital. Patient was taken back to the operating room and did undergo open treatment of a T8 fracture, irrigation and excisional debridement of thoracic spine wound measuring 10 x 7 x 4 cm, posterior lateral instrumented fusion of T7-T11 and cement augmentation of T8-T10 vertebral bodies. Following the surgery, patient was extubated in the postanesthesia care unit, and transferred to the intensive care unit. Per the ICU nurse, patient was on a 6 L simple mask and obtunded. ABGs consistent with severe hypercapnic respiratory failure. Patient was trialed on BiPAP with settings 14/5 and FiO2 50%. Repeat ABG showing only minimal improvement with a PaO2 of 85, pCO2 75, pH of 7.12. Dr. Dumont was previously contacted and gave orders to intubate the patient, and this was done by [employer] at 2225. I am seeing this patient in room 252 following the intubation. Postintubation chest x-ray showing the ET tube tip approximately 2 to 3 cm above the sergo, orogastric tube in satisfactory position, cervical and thoracic postsurgical hardware, hyperinflation consistent with COPD. Current ventilator settings AC, respiratory rate 18, tidal volume 400, FiO2 100 %, PEEP of 5. Follow-up ABGs, showing a PaO2 of 332, pCO2 50, pH is 7.26. Appropriate adjustments were made. Peak pressures are elevated at 34 and static airway pressure is 21. She does have diffuse expiratory wheezing. Started on combination of DuoNebs, formoterol and budesonide inhalations, and steroids. No secretions in the ET tube. No reported aspiration events. Propofol is going to be started. She does have a Hemovac drain with small amount of sanguinous output. Also, started on some empiric antibiotics in the form of cefepime and vancomycin. Blood and wound cultures are pending. CBC: WBC count 13.9, hemoglobin 10.4, platelets 598. Preop BMP includes a sodium 134, potassium 3.9, chloride 105, serum bicarb 25, BUN 13, creatinine 0.6, glucose 89. Was noted to be hypotensive following intubation, and was given 2 L of normal saline bolused. Blood pressure now normotensive. Normal saline continuous at 100 mL/h. 10/29/2024, the patient is calm and comfortable, still complaining of pain in her back. Able to move all 4 extremities without any limitation. A bit sleepy. No significant shortness of breath. Surgical wound is dry. Hemovac is in place. Output is 10 cc over the past 8 hours. Fluid balance is +1.1 L and the patient remains on normal citrate of 100 cc an hour. No other significant events overnight. She is extubated. White cell count is 11 hemoglobin 9.6 and a platelet count of 461. Sodium is at 137, potassium is 4, BUN 7 with a creatinine of 0.5. Calcium level is at 8.5. 10/30/2024, the patient is awake alert and comfortable. Pain is under better control. She is on status of oxygen by nasal cannula. She is on normal saline at 100 cc an hour. She had a urinary retention and Howell catheter was inserted. Hemovac has been removed. Surgical wound site is dry clean and intact.No other complaints otherwise for now. The white cell count is at 13 with a hemoglobin 9.6 and a platelet count is at 355. Electrolytes show a potassium level of 3.4, serum bicarb of 20, gap of 7, BUN 6 with a creatinine of 0.4. No other significant events overnight. Cultures are negative. The patient remains on cefepime and vancomycin. Tolerating her diet. Objective - Vital Signs Vital signs: Vital Signs Temp 97.6 F 10/30/24 08:31 Pulse 99 10/30/24 08:31 Resp 16 10/30/24 08:31 BP 99/60 10/30/24 08:31 Pulse Ox 96 10/30/24 08:31 FiO2 40 10/28/24 09:00 Intake & Output 10/29/24 10/30/24 10/30/24 18:59 06:59 18:59 Intake Total 580 2950 10 Output Total 500 1020 Balance 80 1930 10 Intake: IV 340 2710 10 Cefepime 1 gm In Sodium 200 Chloride 0.9% 50 ml @ 12. 5 mls/hr IVPB Q8H [facility] Rx# :[id number] Invasive Line 4 10 Invasive Line 6 30 10 10 Sodium Chloride 0.9% 1, 300 2000 000 ml @ 100 mls/hr IV . Q10H [facility] Rx#:[id number] Vancomycin 750 mg In 500 Sodium Chloride 0.9% 250 ml @ 125 mls/hr IVPB Q12HR@0200,1400 [facility] Rx#: [id number] Oral 240 240 Output: Drainage 15 Back 15 Urine 485 1020 Emesis 0 Other: Voiding Method Indwelling Catheter Bedside Commode # Bowel Movements 0 0 ABP, PAP, CO, CI - Last Documented Arterial Blood Pressure 144/79 - Exam GENERAL EXAM: Sedated, 54-year-old white female, on 2 L of oxygen by nasal cannula, awake and alert HEAD: Normocephalic and atraumatic EYES: Normal reaction of pupils, equal size. NOSE: Clear with pink turbinates. THROAT: No erythema or exudates. Orogastric tube noted NECK: No masses, no JVD. CHEST: No chest wall deformity. LUNGS: Diminished breath sound bilaterally, no significant wheezing. Scar over the back is dry clean and intact. Hemovac is in place. CVS: S1 and S2 normal with no audible murmur, regular rhythm. No extra heart sounds ABDOMEN: No hepatosplenomegaly, active bowel sounds, no guarding or rigidity. SPINE: No scoliosis or deformity SKIN: No rashes CENTRAL NERVOUS SYSTEM: Sleepy, awake and alert, appears to move all 4 extremities, nonfocal EXTREMITIES: There is no peripheral edema, clubbing, or cyanosis. Peripheral pulses are intact. - Labs CBC & Chem 7: 10/30/24 08:42 10/30/24 08:42 Labs: Abnormal Lab Results - Last 24 Hours (Table) 10/29/24 Range/Units 22:30 Urine Protein Trace H (Negative) Urine Blood Trace H (Negative) Amorphous Sediment Rare H (None) /hpf Hyaline Casts 41 H (0-2) /lpf Urine Mucus Rare H (None) /hpf Microbiology - Last 24 Hours (Table) 10/27/24 17:00 Anaerobic Culture - Preliminary Other - Other 10/27/24 17:00 Gram Stain - Preliminary Other - Other Wound Culture - Preliminary 10/27/24 16:54 Gram Stain - Preliminary Other - Other Wound Culture - Preliminary Assessment and Plan Assessment: Status postoperative day #3 following open treatment of a T8 fracture, irrigation and excisional debridement of thoracic spine wound measuring 10 x 7 x 4 cm, posterior lateral instrumented fusion of T7-T11 and cement augmentation of T8-T10 vertebral bodies. Extubated on 10/28/2024 and currently the patient on 2 L of oxygen by nasal cannula. Acute hypoxemic and hypercapnic respiratory failure, recovered and the patient is currently on 3 L of O2 nasal cannula, extubated on 10/28/2024. Chronic obstructive pulmonary disease/asthma, currently inactive and stable T2 vertebral fracture with revision of C2-T7 posterior lateral fusion on 09/09/2024 Surgical site infection and wound dehiscence, wound and blood cultures pending Acute leukocytosis Macrocytic anemia History of hypertension History of hyperlipidemia History of coronary artery disease History of heart failure with preserved ejection fraction History of gastroesophageal reflux disease History of seizure disorder History of hypothyroidism History of anxiety/depression/PTSD Plan: Incentive spirometer Oxygen at 3 L/min nasal cannula Continue DuoNebs budesonide and formoterol inhalation Steroids were discontinued Blood and wound cultures pending Empiric antibiotics are continued Follow-up CT of the thoracic spine is ordered and spine surgery is to follow Howell catheter placed for urinary retention Continue same medications Chest x-ray is clear consistent with COPD We will move this patient outside the ICU and send her to a medical surgical floor. Time with Patient: Greater than 30
[2024-10-30] MEDS: POTASSIUM CHLORIDE ER 20 MEQ TAB.ER PO STA (13:02)
--- NOTE | 2024-10-30 13:19 | P.PN ---
Subjective Progress Note Date: 10/30/24 Principal diagnosis: 1. WOUND DEHISCENCE THORACIC SPINE 2. T8 BURST COMPRESSION FRACTURE WITH KYPHOTIC DEFORMITY 3. S/P MULTIPLE FRACTURE SURGERIES AND REVISION 4. THORACIC BACK PAIN 5. COMPLEX MEDICAL PATIENT Patient seen sitting up at bedside this afternoon in ICU. dressing was changed at bedside this morning. Patient accidentally removed drain yesterday. Patient mentions she is still having a lot of pain in the back at this time. ICU planning on transferring patient to 4 S. later today. Objective - Vital Signs Vital signs: Vital Signs Temp 97.6 F 10/30/24 08:31 Pulse 95 10/30/24 12:21 Resp 16 10/30/24 08:31 BP 99/60 10/30/24 08:31 Pulse Ox 96 10/30/24 08:43 FiO2 40 10/28/24 09:00 Intake & Output 10/29/24 10/30/24 10/30/24 18:59 06:59 18:59 Intake Total 580 2950 10 Output Total 500 1020 465 Balance 80 1930 -455 Intake: IV 340 2710 10 Cefepime 1 gm In Sodium 200 Chloride 0.9% 50 ml @ 12. 5 mls/hr IVPB Q8H [facility] Rx# :[id number] Invasive Line 4 10 Invasive Line 6 30 10 10 Sodium Chloride 0.9% 1, 300 2000 000 ml @ 100 mls/hr IV . Q10H [facility] Rx#:[id number] Vancomycin 750 mg In 500 Sodium Chloride 0.9% 250 ml @ 125 mls/hr IVPB Q12HR@0200,1400 [facility] Rx#: [id number] Oral 240 240 Output: Drainage 15 Back 15 Urine 485 1020 465 Uretheral (Howell) 465 Emesis 0 Other: Voiding Method Indwelling Catheter Bedside Commode # Bowel Movements 0 0 ABP, PAP, CO, CI - Last Documented Arterial Blood Pressure 144/79 - Exam Some spotting on the dressing. Dressing changed at bedside this morning. Patient had removed drain by accident yesterday. Drain stitch removed at bed side this morning. Sensation is equal, symmetric, bilat intact throughout the upper and lower extremities on exam. Patient does have tenderness palpation over the incision. Nontender on rest of exam. Patient does have good range of motion on exam. 4/5 in all major motor groups in bilateral upper and lower extremities. Radial pulse intact, 2+ bilaterally. Negative Homans bilaterally. Cap refill under 3 seconds in digits of upper extremities. Negative clonus bilaterally. Negative Suhas bilaterally. - Labs CBC & Chem 7: 10/30/24 08:42 10/30/24 08:42 Labs: Abnormal Lab Results - Last 24 Hours (Table) 10/29/24 10/30/24 10/30/24 Range/Units 22:30 08:42 08:42 WBC 13.0 H (3.8-10.6) k/uL RBC 2.94 L (3.80-5.40) m/uL Hgb 9.6 L (11.4-16.0) gm/dL Hct 30.8 L (34.0-46.0) % MCV 104.5 H (80.0-100.0) fL Neutrophils # 11.0 H (1.3-7.7) k/uL Lymphocytes # 0.9 L (1.0-4.8) k/uL Potassium 3.4 L (3.5-5.1) mmol/L Chloride 110 H (98-107) mmol/L Carbon Dioxide 20 L (22-30) mmol/L BUN 6 L (7-17) mg/dL Creatinine 0.46 L (0.52-1.04) mg/dL Urine Protein Trace H (Negative) Urine Blood Trace H (Negative) Amorphous Sediment Rare H (None) /hpf Hyaline Casts 41 H (0-2) /lpf Urine Mucus Rare H (None) /hpf Microbiology - Last 24 Hours (Table) 10/27/24 16:54 Gram Stain - Final Other - Other Wound Culture - Final 10/27/24 17:00 Anaerobic Culture - Preliminary Other - Other 10/27/24 17:00 Gram Stain - Preliminary Other - Other Wound Culture - Preliminary Assessment and Plan Assessment: 1. WOUND DEHISCENCE THORACIC SPINE; T8 BURST COMPRESSION FRACTURE WITH KYPHOTIC DEFORMITY; S/P MULTIPLE FRACTURE SURGERIES AND REVISION; THORACIC BACK PAIN - Postop day 3 status post open treatment T8 fracture; irrigation and excisional debridement of thoracic spine wound; posterior lateral instrumented fusion T7- T11 Plan: 1. WOUND DEHISCENCE THORACIC SPINE; T8 BURST COMPRESSION FRACTURE WITH KYPHOTIC DEFORMITY; S/P MULTIPLE FRACTURE SURGERIES AND REVISION; THORACIC BACK PAIN - surgery performed , 2/20/2025open treatment T8 fracture; irrigation and excisional debridement of thoracic spine wound; posterior lateral instrumented fusion T7-T11. Patient currently in ICU. Dressing changed at bedside this morning. Drain removed. We will continue to follow patient during stay in hospital. Pain medication as needed. Appreciate medical and pulmonology management. 2. Appreciate medical and pulmonology management 3. Pain management - gabapentin; flexeril; [place] 4. DVT prophylaxis - mechanical 5. GI prophylaxis - protonix 6. PT/OT -weightbearing as tolerated with walker and soft c-collar on at all times 7. Encourage incentive spirometer use 8. Discharge planning -pending Time with Patient: Less than 30
[2024-10-30] MEDS: VANCOMYCIN TROUGH DUE 1 EACH MISC MISCELLANE ONE (14:48)
--- NOTE | 2024-10-30 18:29 | P.PN ---
Subjective Progress Note Date: 10/30/24 This is a pleasant 54-year-old female who presented to the emergency department and admitted under orthopedic services for failure of outpatient therapy with oral antibiotics from previous decompression with fusion and kyphoplasty of her thoracic spine that was done at the beginning of September. Patient has had a few hospitalizations and was scheduled to undergo revision with washout and patient refused surgery reporting she was not feeling well. Cultures were obtained at that time and were negative and sent on oral antibiotics per infectious disease recommending outpatient follow-up with orthopedics. Patient is back with persistent pain and failure of outpatient treatment with wound dehiscence of the area and continued drainage now agreeable to surgery and scheduled for wound revision with washout on 10/27/2024. Patient reports she follows with Dr. Ballard in the outpatient setting with a significant past medical history of asthma, heart failure, COPD, DVT, fibromyalgia, GERD, hyperlipidemia, hypertension, memory impairment with previous heart attacks, osteoarthritis, seizure disorder, thyr oid disorder as well as restless legs, IBS, colitis. Patient also with significant anxiety, bipolar depression with PTSD smokes daily occasionally uses marijuana and denies any alcohol use. Patient does have a legal public guardian and reports to living with her significant other (boyfriend). Medical was consulted for medical management. 10/27/2024 Patient is seen in follow-up today currently n.p.o. she is awaiting to undergo thoracic spine intervention with Dr. Mchugh today. Patient is afebrile with no reports of chest pain or shortness of breath. Patient does continue with soft collar at this time. Awaiting operative report. Recommend follow-up labs in the a.m. and will continue to follow along with orthopedics closely. 10/28/2024 Patient is seen in follow-up in the ICU status post washout and revision of the thoracic spine. Per nursing staff after postop patient was obtunded and concerns of protecting airway and was intubated and put in ICU for close monitoring with pulmonary consulted. Patient on exam had ET tube and NG tube in her hand and had self extubated. Patient was alert and oriented able to answer questions and commands appropriately. Plans were for extubation sometime today per pulmonary as patient was doing relatively well. Patient is maintained on a ntibiotics and cultures were obtained and pending. White count mildly elevated although likely reactive and will follow-up on repeat labs. 10/29/2024 Patient evaluated today in the ICU currently sitting up in the chair eating lunch. Postoperative day #2 washout and revision of the thoracic spine. Hemovac remains in place. Reports pain today at about a 5/10. She is currently on 2L of oxygen via nasal cannula. Patient not having any significant complaints today. Continues on IV cefepime and IV vancomycin. Chest xray this morning shows concern for volume overload. Sodium is better at 137, BUN 7, creatinine 0.53, white blood cell count 11.7. hgb 9.6. She is 98% on 3L of oxygen. Does not appear volume overloaded. 10/30/2023 Patient evaluated today in the intensive care unit. Resting in bed. States she has been unable to have a bowel movement despite bowel regimen. Enema to be given today. She is postoperative day #3 washout and revision of thoracic spine. Hemovac was removed accidently by the patient yesterday. She continues to have significant pain to the back although reports improved since yesterday. Labs today are showing white blood cell count 13.0, hgb 9.6, potassium 3.4, bun 6, creatinine 0.46. UA completed yesterday was not suggestive of infection. Patient remains on IV cefepime and IV vancomycin. Continues on normal saline at 50 mls/hr. Remains on oxygen via nasal cannula at 2L. Review of Systems Constitutional: Denied any fatigue denied any fever. Cardio vascular: denied any chest pain, palpitations Gastrointestinal: denied any nausea, vomiting, diarrhea Reports constipation Pulmonary: Denied any shortness of breath cough Neurologic denied any new focal deficits All inpatient medications were reviewed and appropriate changes in these medications as dictated in the interval history and assessment and plan. PHYSICAL EXAMINATION: GENERAL: The patient is awake, alert and oriented x2, has just self extubated. Well developed, thin built, elderly appearing HEENT: Pupils are round and equally reacting to light. EOMI. No scleral icterus. No conjunctival pallor. Normocephalic, atraumatic. No pharyngeal erythema. No thyromegaly. CARDIOVASCULAR: S1 and S2 present. No murmurs, rubs, or gallops. Diminished PULMONARY: Diminished breath sounds bilaterally otherwise chest is clear to auscultation, no wheezing, coarse scattered rhonchi noted ABDOMEN: Soft, thin, nontender, nondistended, normoactive bowel sounds. No palpable organomegaly. MUSCULOSKELETAL: No joint swelling or deformity. EXTREMITIES: No cyanosis, clubbing, or pedal edema. NEUROLOGICAL: Gross neurological examination did not reveal any focal deficits. Diffusely weak SKIN: No rashes. Surgical dressing intact with minimal drainage. Hemovac is removed. Assessment: Ongoing back pain of the T-spine with failure of outpatient treatment on oral antibiotics, status post washout and revision of the thoracic spine with fusion T7-T11 10/27/2024 Acute hypoxemic respiratory failure; self extubated on 10/28/2024 History of recent C2-T7 decompression, fusion, fracture reduction with realig nment of the T8 fracture Wound dehiscence of that previous surgical site due to pressure ulceration History of noncompliance Hypokalemia Significant history of anxiety/depression/bipolar/PTSD Hypertension history Hyperlipidemia history Asthma/COPD history, not in exacerbation Continued ongoing nicotine abuse History of previous DVT History of GERD History of fibromyalgia History of memory impairment has a legal public guardian GI prophylaxis DVT prophylaxis Full code Plan: Patient was admitted under orthopedic services with failure of outpatient treatment. Patient underwent revision with washout 10/27/2024 Patient will continue in ICU for close monitoring until cleared by pulmonary and general surgery for downgrade Home medications reviewed and resumed as appropriate Continue pain management per orthopedics Recommend PT/OT therapy evaluation postsurgical Encourage incentive spirometer use at least 10 times every hour while awake Nicotine patch as needed Check abdominal xray and add bowel regiment including dulcolax and lactulose. Patient to receive enema today as she has still not had a BM. Will follow-up with repeat labs, replace electrolytes per protocol oral potassium given today. We will continue to follow with orthopedics during hospitalization. Thank you kindly for this consultation. The impression and plan of care has been dictated by Nichelle Loya, Nurse Practitioner as directed. Dr. Jayson MD I have performed a history and physical examination and medical decision making of this patient, discussed the same with the dictator, and agree with the dictators assessment and plan as written, documented as a scribe. Based on total visit time, I have performed more than 50% of this visit. Objective - Vital Signs Vital signs: Vital Signs Temp 97.4 F L 10/30/24 14:00 Pulse 106 H 10/30/24 14:00 Resp 16 10/30/24 14:00 BP 98/56 10/30/24 14:00 Pulse Ox 94 L 10/30/24 14:00 FiO2 40 10/28/24 09:00 Intake & Output 10/29/24 10/30/24 10/30/24 18:59 06:59 18:59 Intake Total 580 2950 960 Output Total 500 1020 465 Balance 80 1930 495 Intake: IV 340 2710 960 Cefepime 1 gm In Sodium 200 100 Chloride 0.9% 50 ml @ 12. 5 mls/hr IVPB Q8H [facility] Rx# :[id number] Invasive Line 4 10 Invasive Line 6 30 10 10 Sodium Chloride 0.9% 1, 300 2000 600 000 ml @ 100 mls/hr IV . Q10H [facility] Rx#:[id number] Vancomycin 750 mg In 500 250 Sodium Chloride 0.9% 250 ml @ 125 mls/hr IVPB Q12HR@0200,1400 [facility] Rx#: [id number] Oral 240 240 Output: Drainage 15 Back 15 Urine 485 1020 465 Uretheral (Howell) 465 Emesis 0 Other: Voiding Method Indwelling Catheter Bedside Commode # Bowel Movements 0 0 3 ABP, PAP, CO, CI - Last Documented Arterial Blood Pressure 144/79 - Labs CBC & Chem 7: 10/30/24 08:42 10/30/24 08:42 Labs: Abnormal Lab Results - Last 24 Hours (Table) 10/29/24 10/30/24 10/30/24 Range/Units 22:30 08:42 08:42 WBC 13.0 H (3.8-10.6) k/uL RBC 2.94 L (3.80-5.40) m/uL Hgb 9.6 L (11.4-16.0) gm/dL Hct 30.8 L (34.0-46.0) % MCV 104.5 H (80.0-100.0) fL Neutrophils # 11.0 H (1.3-7.7) k/uL Lymphocytes # 0.9 L (1.0-4.8) k/uL Potassium 3.4 L (3.5-5.1) mmol/L Chloride 110 H (98-107) mmol/L Carbon Dioxide 20 L (22-30) mmol/L BUN 6 L (7-17) mg/dL Creatinine 0.46 L (0.52-1.04) mg/dL Urine Protein Trace H (Negative) Urine Blood Trace H (Negative) Amorphous Sediment Rare H (None) /hpf Hyaline Casts 41 H (0-2) /lpf Urine Mucus Rare H (None) /hpf Microbiology - Last 24 Hours (Table) 10/27/24 17:00 Gram Stain - Preliminary Other - Other Wound Culture - Preliminary 10/27/24 16:54 Anaerobic Culture - Preliminary Other - Other 10/27/24 16:54 Gram Stain - Final Other - Other Wound Culture - Final 10/27/24 17:00 Anaerobic Culture - Preliminary Other - Other Assessment and Plan Time with Patient: Less than 30
[2024-10-31] MEDS: NICOTINE 14MG/24HR PATCH TRANSDERM SCH (01:44)
[2024-10-31 05:03] LABS: African American GFR (CKD) >90 (>60 ml/min/1.73 sqM); Anion Gap 4 mmol/L; Blood Urea Nitrogen 5 mg/dL (7-17); Calcium 8.3 mg/dL (8.4-10.2); Carbon Dioxide 22 mmol/L (22-30); Chloride 109 mmol/L (98-107); Glucose 76 mg/dL (74-99); Non-African American GFR(CKD) >90 (>60 ml/min/1.73 sqM); Potassium 4.5 mmol/L (3.5-5.1); Sodium 135 mmol/L (137-145)
[2024-10-31 05:31] LABS: Basophils % (A) 0 %; Eosinophils # (A) 0.2 k/uL (0-0.7); Eosinophils % (A) 2 %; HCT 27.1 % (34.0-46.0); Hypochromasia Marked; Lymphocytes # (A) 0.8 k/uL (1.0-4.8); Lymphocytes % (A) 7 %; MCHC 29.9 g/dL (31.0-37.0); Macrocytosis Marked; Mean Platelet Volume 8.3; Monocytes # (A) 0.9 k/uL (0-1.0); Monocytes % (A) 8 %; Neutrophils # (A) 8.7 k/uL (1.3-7.7); Neutrophils % (A) 81 %; Platelet Count 355 k/uL (150-450); RBC 2.53 m/uL (3.80-5.40); RDW 15.2 % (11.5-15.5); WBC 10.8 k/uL (3.8-10.6)
[2024-10-31 05:40] LABS: HGB 8.1 gm/dL (11.4-16.0)
--- NOTE | 2024-10-31 09:23 | P.PN ---
Subjective Progress Note Date: 10/31/24 Principal diagnosis: 1. WOUND DEHISCENCE THORACIC SPINE 2. T8 BURST COMPRESSION FRACTURE WITH KYPHOTIC DEFORMITY 3. S/P MULTIPLE FRACTURE SURGERIES AND REVISION 4. THORACIC BACK PAIN 5. COMPLEX MEDICAL PATIENT Patient seen sitting up at bedside this morning in ICU. Patient mentions she is still having a lot of pain in the back at this time. ID consulted for abx recs. ICU planning on transferring patient to 4 S. later today. Objective - Vital Signs Vital signs: Vital Signs Temp 98.0 F 10/31/24 08:00 Pulse 85 10/31/24 08:23 Resp 18 10/31/24 08:00 BP 97/61 10/31/24 08:00 Pulse Ox 95 10/31/24 08:00 FiO2 40 10/28/24 09:00 Intake & Output 10/30/24 10/31/24 10/31/24 18:59 06:59 18:59 Intake Total 1480 1200 Output Total 915 1050 Balance 565 150 Intake: IV 960 960 Cefepime 1 gm In Sodium 100 100 Chloride 0.9% 50 ml @ 12. 5 mls/hr IVPB Q8H [facility] Rx# :[id number] Invasive Line 6 10 10 Sodium Chloride 0.9% 1, 600 600 000 ml @ 100 mls/hr IV . Q10H [facility] Rx#:[id number] Vancomycin 750 mg In 250 250 Sodium Chloride 0.9% 250 ml @ 125 mls/hr IVPB Q12HR@0200,1400 [facility] Rx#: [id number] Oral 520 240 Output: Urine 915 1050 Uretheral (Howell) 465 Other: Voiding Method Indwelling Catheter # Bowel Movements 2 ABP, PAP, CO, CI - Last Documented Arterial Blood Pressure 144/79 - Exam Dressing CDI. Sensation is equal, symmetric, bilat intact throughout the upper and lower extremities on exam. Patient does have tenderness palpation over the incision. Nontender on rest of exam. Patient does have good range of motion on exam. 4/5 in all major motor groups in bilateral upper and lower extremities. Radial pulse intact, 2+ bilaterally. Negative Homans bilaterally. Cap refill under 3 seconds in digits of upper extremities. Negative clonus bilaterally. Negative Suhas bilaterally. - Labs CBC & Chem 7: 10/31/24 03:54 10/31/24 03:54 Labs: Abnormal Lab Results - Last 24 Hours (Table) 10/30/24 10/31/24 10/31/24 Range/Units 08:42 03:54 03:54 WBC 13.0 H 10.8 H (3.8-10.6) k/uL RBC 2.94 L 2.53 L (3.80-5.40) m/uL Hgb 9.6 L 8.1 L D (11.4-16.0) gm/dL Hct 30.8 L 27.1 L (34.0-46.0) % MCV 104.5 H 107.0 H (80.0-100.0) fL MCHC 29.9 L (31.0-37.0) g/dL Neutrophils # 11.0 H 8.7 H (1.3-7.7) k/uL Lymphocytes # 0.9 L 0.8 L (1.0-4.8) k/uL Macrocytosis Marked A Sodium 135 L (137-145) mmol/L Chloride 109 H (98-107) mmol/L BUN 5 L (7-17) mg/dL Creatinine 0.41 L (0.52-1.04) mg/dL Calcium 8.3 L (8.4-10.2) mg/dL Microbiology - Last 24 Hours (Table) 10/25/24 13:03 Blood Culture - Final Blood 10/27/24 17:00 Gram Stain - Preliminary Other - Other Wound Culture - Preliminary 10/27/24 16:54 Anaerobic Culture - Preliminary Other - Other 10/27/24 16:54 Gram Stain - Final Other - Other Wound Culture - Final Assessment and Plan Assessment: 1. WOUND DEHISCENCE THORACIC SPINE; T8 BURST COMPRESSION FRACTURE WITH KYPHOTIC DEFORMITY; S/P MULTIPLE FRACTURE SURGERIES AND REVISION; THORACIC BACK PAIN - Postop day 4 status post open treatment T8 fracture; irrigation and excisional debridement of thoracic spine wound; posterior lateral instrumented fusion T7- T11 Plan: 1. WOUND DEHISCENCE THORACIC SPINE; T8 BURST COMPRESSION FRACTURE WITH KYPHOTIC DEFORMITY; S/P MULTIPLE FRACTURE SURGERIES AND REVISION; THORACIC BACK PAIN - surgery performed , 10/27/2024open treatment T8 fracture; irrigation and excisional debridement of thoracic spine wound; posterior lateral instrumented fusion T7-T11. Patient currently in ICU. Dressing CDI. work with PT/OT daily. We will continue to follow patient during stay in hospital. Pain medication as needed. Appreciate medical and pulmonology management. 2. Appreciate medical and pulmonology management 3. Pain management - gabapentin; flexeril; [place] 4. DVT prophylaxis - mechanical 5. GI prophylaxis - protonix 6. PT/OT -weightbearing as tolerated with walker and soft c-collar on at all times 7. Encourage incentive spirometer use 8. Discharge planning -pending Time with Patient: Less than 30
[2024-10-31 09:38] VITALS: BMI 25.0
[2024-10-31] MEDS: IPRATROPIUM-ALBUTEROL 3 ML NEB INHALATION SCH (12:47)
--- NOTE | 2024-10-31 13:23 | P.PN ---
Subjective Progress Note Date: 10/31/24 Principal diagnosis: Status post irrigation and debridement of thoracic spine wound, posterior lateral instrumented fusion of T7 T11 and cement augmentation of T8 T10 vertebral bodies. Postoperative day #4 Patient is a 54-year-old female with past medical history significant for asthma/COPD, hypertension, hyperlipidemia, CAD, heart failure, DVT, hyp othyroidism, seizure disorder, osteoarthritis and multiple previous back surgeries. Most recently, underwent open treatment of T2 vertebral fracture and revision of C2-T7 posterior lateral fusion on 09/09/2024. Concerns for surgical site infection on outpatient basis, and was treated with antibiotics. On 10/24/2024 she was seen in the emergency department for continued concerns of a surgical site infection. Reports of thoracic level pain and green/brown discharge. Unfortunately, patient left AGAINST MEDICAL ADVICE. Patient returned the following day with similar complaints, and was admitted to the hospital. Patient was taken back to the operating room and did undergo open treatment of a T8 fracture, irrigation and excisional debridement of thoracic spine wound measuring 10 x 7 x 4 cm, posterior lateral instrumented fusion of T7-T11 and cement augmentation of T8-T10 vertebral bodies. Following the surgery, patient was extubated in the postanesthesia care unit, and transferred to the intensive care unit. Per the ICU nurse, patient was on a 6 L simple mask and obtunded. ABGs consistent with severe hypercapnic respiratory failure. Patient was trialed on BiPAP with settings 14/5 and FiO2 50%. Repeat ABG showing only minimal improvement with a PaO2 of 85, pCO2 75, pH of 7.12. Dr. Dumont was previously contacted and gave orders to intubate the patient, and this was done by PASSENGER TIRE BUILDER at 2225. I am seeing this patient in room 252 following the intubation. Postintubation chest x-ray showing the ET tube tip approximately 2 to 3 cm above the sergo, orogastric tube in satisfactory position, cervical and thoracic postsurgical hardware, hyperinflation consistent with COPD. Current ventilator settings AC, respiratory rate 18, tidal volume 400, FiO2 100 %, PEEP of 5. Follow-up ABGs, showing a PaO2 of 332, pCO2 50, pH is 7.26. Appropriate adjustments were made. Peak pressures are elevated at 34 and static airway pressure is 21. She does have diffuse expiratory wheezing. Started on combination of DuoNebs, formoterol and budesonide inhalations, and steroids. No secretions in the ET tube. No reported aspiration events. Propofol is going to be started. She does have a Hemovac drain with small amount of sanguinous output. Also, started on some empiric antibiotics in the form of cefepime and vancomycin. Blood and wound cultures are pending. CBC: WBC count 13.9, hemoglobin 10.4, platelets 598. Preop BMP includes a sodium 134, potassium 3.9, chloride 105, serum bicarb 25, BUN 13, creatinine 0.6, glucose 89. Was noted to be hypotensive following intubation, and was given 2 L of normal saline bolused. Blood pressure now normotensive. Normal saline con tinuous at 100 mL/h. 10/29/2024, the patient is calm and comfortable, still complaining of pain in her back. Able to move all 4 extremities without any limitation. A bit sleepy. No significant shortness of breath. Surgical wound is dry. Hemovac is in place. Output is 10 cc over the past 8 hours. Fluid balance is +1.1 L and the patient remains on normal citrate of 100 cc an hour. No other significant events overnight. She is extubated. White cell count is 11 hemoglobin 9.6 and a platelet count of 461. Sodium is at 137, potassium is 4, BUN 7 with a creatinine of 0.5. Calcium level is at 8.5. 10/30/2024, the patient is awake alert and comfortable. Pain is under better control. She is on status of oxygen by nasal cannula. She is on normal saline at 100 cc an hour. She had a urinary retention and Howell catheter was inserted. Hemovac has been removed. Surgical wound site is dry clean and intact.No other complaints otherwise for now. The white cell count is at 13 with a hemoglobin 9.6 and a platelet count is at 355. Electrolytes show a potassium level of 3.4, serum bicarb of 20, gap of 7, BUN 6 with a creatinine of 0.4. No other significant events overnight. Cultures are negative. The patient remains on cefepime and vancomycin. Tolerating her diet. Patient was seen today on 10/31/2024, patient is now postoperative day #4, seems to be doing well remains on cefepime, off vancomycin, she is still receiving treatment for COPD, and she is being followed by infectious disease. She is hemodynamically stable not requiring any pressors. Her WBC count is 10.8 hemo globin 8.1 electrolytes are normal renal profile is normal. Patient denies any abdominal pain or discomfort Objective - Vital Signs Vital signs: Vital Signs Temp 98.0 F 10/31/24 08:00 Pulse 84 10/31/24 12:59 Resp 18 10/31/24 08:00 BP 97/61 10/31/24 08:00 Pulse Ox 95 10/31/24 08:00 FiO2 40 10/28/24 09:00 Intake & Output 10/30/24 10/31/24 10/31/24 18:59 06:59 18:59 Intake Total 1480 1200 600 Output Total 915 1050 250 Balance 565 150 350 Weight 52.6 kg Intake: IV 960 960 10 Cefepime 1 gm In Sodium 100 100 Chloride 0.9% 50 ml @ 12. 5 mls/hr IVPB Q8H [facility] Rx# :[id number] Invasive Line 6 10 10 10 Sodium Chloride 0.9% 1, 600 600 000 ml @ 100 mls/hr IV . Q10H [facility] Rx#:[id number] Vancomycin 750 mg In 250 250 Sodium Chloride 0.9% 250 ml @ 125 mls/hr IVPB Q12HR@0200,1400 [facility] Rx#: [id number] Intake, IV Titration 350 Amount Sodium Chloride 0.9% 1, 350 000 ml @ 50 mls/hr IV . Q20H [facility] Rx#:[id number] Oral 520 240 240 Output: Urine 915 1050 250 Uretheral (Howell) 465 Other: Voiding Method Indwelling Catheter Indwelling Catheter # Bowel Movements 2 1 ABP, PAP, CO, CI - Last Documented Arterial Blood Pressure 144/79 - Exam GENERAL EXAM: Revealed 54-year-old female in no distress, on 2 L nasal cannula HEAD: Normocephalic and atraumatic EYES: Normal reaction of pupils, equal size. NOSE: Clear with pink turbinates. THROAT: No erythema or exudates. Orogastric tube noted NECK: No masses, no JVD. CHEST: No chest wall deformity. LUNGS: Clear bilaterally minimal wheezing on forced expiratory maneuver CVS: S1 and S2 normal with no audible murmur, regular rhythm. No extra heart sounds ABDOMEN: No hepatosplenomegaly, active bowel sounds, no guarding or rigidity. SKIN: No rashes CENTRAL NERVOUS SYSTEM: Awake alert and oriented x 3 no gross focal deficit Psychiatric: Normal mood affect and no mental status examination Skin: No rashes. - Labs CBC & Chem 7: 10/31/24 03:54 10/31/24 03:54 Labs: Abnormal Lab Results - Last 24 Hours (Table) 10/31/24 10/31/24 Range/Units 03:54 03:54 WBC 10.8 H (3.8-10.6) k/uL RBC 2.53 L (3.80-5.40) m/uL Hgb 8.1 L D (11.4-16.0) gm/dL Hct 27.1 L (34.0-46.0) % MCV 107.0 H (80.0-100.0) fL MCHC 29.9 L (31.0-37.0) g/dL Neutrophils # 8.7 H (1.3-7.7) k/uL Lymphocytes # 0.8 L (1.0-4.8) k/uL Macrocytosis Marked A Sodium 135 L (137-145) mmol/L Chloride 109 H (98-107) mmol/L BUN 5 L (7-17) mg/dL Creatinine 0.41 L (0.52-1.04) mg/dL Calcium 8.3 L (8.4-10.2) mg/dL Microbiology - Last 24 Hours (Table) 10/25/24 13:03 Blood Culture - Final Blood 10/27/24 17:00 Gram Stain - Preliminary Other - Other Wound Culture - Preliminary 10/27/24 16:54 Anaerobic Culture - Preliminary Other - Other 10/27/24 16:54 Gram Stain - Final Other - Other Wound Culture - Final Assessment and Plan Assessment: Impression: Status postoperative day #4 following open treatment of a T8 fracture, irrigation and excisional debridement of thoracic spine wound measuring 10 x 7 x 4 cm, posterior lateral instrumented fusion of T7-T11 and cement augmentation of T8-T10 vertebral bodies. Extubated on 10/28/2024 and currently the patient on 2 L of oxygen by nasal cannula. Acute hypoxemic and hypercapnic respiratory failure, recovered and the patient is currently on 3 L of O2 nasal cannula, extubated on 10/28/2024. Chronic obstructive pulmonary disease/asthma, currently inactive and stable T2 vertebral fracture with revision of C2-T7 posterior lateral fusion on 09/09/2024 Surgical site infection and wound dehiscence, wound and blood cultures pending Acute leukocytosis Macrocytic anemia History of hypertension History of hyperlipidemia History of coronary artery disease History of heart failure with preserved ejection fraction History of gastroesophageal reflux disease History of seizure disorder History of hypothyroidism History of anxiety/depression/PTSD Recommendation: Patient remains in the ICU however I will transfer the patient today from ICU to regular medical floor. Continue incentive spirometry Continue updrafts/DuoNeb for her underlying COPD Continue Perforomist and budesonide Patient is now off systemic steroids Continue antibiotics presently on cefepime off vancomycin cultures have been negative Continue Howell catheter for urinary retention Continue GI and DVT prophylaxis Chest x-ray was reviewed, mostly consistent with COPD Patient could be considered for transfer out of the ICU/medical surgical floor once bed is available. Will continue to follow. Time with Patient: Greater than 30
[2024-10-31] MEDS ORDERED: KETOROLAC 15 MG/ML 1 ML VIAL IVP PRN (15:44)
[2024-10-31] MEDS: GABAPENTIN 300 MG CAP PO SCH (16:58)
--- NOTE | 2024-11-01 01:24 | P.PN ---
Subjective Progress Note Date: 10/31/24 - Reason for Consult Consult date: 10/27/24 Medical management, failure of outpatient abx, previous decompression - History of Present Illness This is a pleasant 54-year-old female who presented to the emergency department and admitted under orthopedic services for failure of outpatient therapy with oral antibiotics from previous decompression with fusion and kyphoplasty of her thoracic spine that was done at the beginning of September. Patient has had a few hospitalizations and was scheduled to undergo revision with washout and patient refused surgery reporting she was not feeling well. Cultures were obtained at that time and were negative and sent on oral antibiotics per infectious disease recommending outpatient follow-up with orthopedics. Patient is back with persistent pain and failure of outpatient treatment with wound dehiscence of the area and continued drainage now agreeable to surgery and scheduled for wound revision with washout on 10/27/2024. Patient reports she follows with Dr. Ballard in the outpatient setting with a significant past medical history of asthma, heart failure, COPD, DVT, fibromyalgia, GERD, hyperlipidemia, hypertension, memory impairment with previous heart attacks, osteoarthritis, seizure disorder, thyroid disorder as well as restless legs, IBS, colitis. Patient also with significant anxiety, bipolar depression with PTSD smokes daily occasionally uses marijuana and denies any alcohol use. Patient does have a legal public guardian and reports to living with her significant other (boyfriend). Medical was consulted for medical management. 10/27/2024 Patient is seen in follow-up today currently n.p.o. she is awaiting to undergo thoracic spine intervention with Dr. Mchugh today. Patient is afebrile with no reports of chest pain or shortness of breath. Patient does continue with soft collar at this time. Awaiting operative report. Recommend follow-up labs in the a.m. and will continue to follow along with orthopedics closely. 10/28/2024 Patient is seen in follow-up in the ICU status post washout and revision of the thoracic spine. Per nursing staff after postop patient was obtunded and concerns of protecting airway and was intubated and put in ICU for close monitoring with pulmonary consulted. Patient on exam had ET tube and NG tube in her hand and had self extubated. Patient was alert and oriented able to answer questions and commands appropriately. Plans were for extubation sometime today per pulmonary as patient was doing relatively well. Patient is maintained on antibiotics and cultures were obtained and pending. White count mildly elevated although likely reactive and will follow-up on repeat labs. 10/29/2024 Patient evaluated today in the ICU currently sitting up in the chair eating lunch. Postoperative day #2 washout and revision of the thoracic spine. Hemovac remains in place. Reports pain today at about a 5/10. She is currently on 2L of oxygen via nasal cannula. Patient not having any significant complaints today. Continues on IV cefepime and IV vancomycin. Chest xray this morning shows concern for volume overload. Sodium is better at 137, BUN 7, creatinine 0.53, white blood cell count 11.7. hgb 9.6. She is 98% on 3L of oxygen. Does not appear volume overloaded. 10/30/2024 Patient evaluated today in the intensive care unit. Resting in bed. States she has been unable to have a bowel movement despite bowel regimen. Enema to be gi ngozi today. She is postoperative day #3 washout and revision of thoracic spine. Hemovac was removed accidently by the patient yesterday. She continues to have significant pain to the back although reports improved since yesterday. Labs today are showing white blood cell count 13.0, hgb 9.6, potassium 3.4, bun 6, creatinine 0.46. UA completed yesterday was not suggestive of infection. Patient remains on IV cefepime and IV vancomycin. Continues on normal saline at 50 mls/hr. Remains on oxygen via nasal cannula at 2L. 10/31/2024 Patient is seen and evaluated in follow-up currently in the ICU although is a downgrade to [facility] once a bed becomes available. Per nursing staff patient continues with confusion at times and pulling at IVs and tubing and is impulsive and currently has manager food safety at the bedside. Patient is awake and responding to questions and commands appropriately. Patient takes a number of pain medications and will adjust accordingly. Recommend limiting IV Dilaudid use given her mentation. Patient is afebrile with no reported chest pain or shortness of breath. Cultures thus far negative and patient was on antibiotics. Infectious disease consulted per orthopedics for antibiotic recommendations on discharge. Continue local wound care per orthopedics. Encourage incentive spirometer use and getting up out of the bed more frequently. Review of Systems Constitutional: Denied any fatigue denied any fever. Cardio vascular: denied any chest pain, palpitations Gastrointestinal: denied any nausea, vomiting, diarrhea Reports had a bowel movement yesterday Pulmonary: Denied any shortness of breath cough Neurologic denied any new focal deficits, reports of continued weakness and back pain All inpatient medications were reviewed and appropriate changes in these medications as dictated in the interval history and assessment and plan. PHYSICAL EXAMINATION: GENERAL: The patient is awake, alert and oriented x2, appears somewhat confused at times. Well developed, thin built, elderly appearing HEENT: Pupils are round and equally reacting to light. EOMI. No scleral icterus. No conjunctival pallor. Normocephalic, atraumatic. No pharyngeal erythema. No thyromegaly. CARDIOVASCULAR: S1 and S2 present. No murmurs, rubs, or gallops. Diminished PULMONARY: Diminished breath sounds bilaterally otherwise chest is clear to auscultation, no wheezing, coarse scattered rhonchi noted ABDOMEN: Soft, thin, nontender, nondistended, normoactive bowel sounds. No palp able organomegaly. MUSCULOSKELETAL: No joint swelling or deformity. EXTREMITIES: No cyanosis, clubbing, or pedal edema. NEUROLOGICAL: Gross neurological examination did not reveal any focal deficits. Diffusely weak SKIN: No rashes. Surgical dressing intact with minimal drainage. Hemovac is removed. Assessment: Ongoing back pain of the T-spine with failure of outpatient treatment on oral antibiotics, status post washout and revision of the thoracic spine with fusion T7-T11 10/27/2024 Acute hypoxemic respiratory failure; self extubated on 10/28/2024 History of recent C2-T7 decompression, fusion, fracture reduction with realignment of the T8 fracture Wound dehiscence of that previous surgical site due to pressure ulceration History of noncompliance Hypokalemia, improved after replacement Significant history of anxiety/depression/bipolar/PTSD Hypertension history Hyperlipidemia history Asthma/COPD history, not in exacerbation Continued ongoing nicotine abuse History of previous DVT History of GERD History of fibromyalgia History of memory impairment has a legal public guardian GI prophylaxis DVT prophylaxis Full code Plan: Patient was admitted under orthopedic services with failure of outpatient treatment. Patient underwent revision with washout 10/27/2024 Patient is currently in the ICU for close monitoring and awaiting downgrade to [facility] today Home medications reviewed and resumed as appropriate. Recommend adjusting medications as patient takes a number of high-dose pain medications and STONEWORKING BELT SANDER agents. Patient is somewhat confused and lethargic at times and will adjust medications accordingly. Continue pain management and recommend limiting IV narcotics Recommend PT/OT therapy evaluation postsurgical Encourage incentive spirometer use at least 10 times every hour while awake Nicotine patch as needed Continue as needed as well as scheduled bowel regimen. Patient had a bowel movement yesterday Will follow-up with repeat labs, replace electrolytes per protocol We will continue to follow with orthopedics during hospitalization. Thank you kindly for this consultation. The impression and plan of care has been dictated by Kristina Wells, Nurse Practitioner as directed. Dr. Jayson MD I have performed a history and examination and MDM of this patient, discussed the same with the dictator, and agree with the dictator's assessment and plan as written ,documented as a scribe. Based on total visit time, I have performed more than 50% of the visit. Objective - Vital Signs Vital signs: Vital Signs Temp 98.0 F 10/31/24 08:00 Pulse 85 10/31/24 08:23 Resp 18 10/31/24 08:00 BP 97/61 10/31/24 08:00 Pulse Ox 95 10/31/24 08:00 FiO2 40 10/28/24 09:00 Intake & Output 10/30/24 10/31/24 10/31/24 18:59 06:59 18:59 Intake Total 1480 1200 Output Total 915 1050 Balance 565 150 Intake: IV 960 960 Cefepime 1 gm In Sodium 100 100 Chloride 0.9% 50 ml @ 12. 5 mls/hr IVPB Q8H [facility] Rx# :[id number] Invasive Line 6 10 10 Sodium Chloride 0.9% 1, 600 600 000 ml @ 100 mls/hr IV . Q10H [facility] Rx#:[id number] Vancomycin 750 mg In 250 250 Sodium Chloride 0.9% 250 ml @ 125 mls/hr IVPB Q12HR@0200,1400 [facility] Rx#: [id number] Oral 520 240 Output: Urine 915 1050 Uretheral (Howell) 465 Other: Voiding Method Indwelling Catheter # Bowel Movements 2 ABP, PAP, CO, CI - Last Documented Arterial Blood Pressure 144/79 - Labs CBC & Chem 7: 10/31/24 03:54 10/31/24 03:54 Labs: Abnormal Lab Results - Last 24 Hours (Table) 10/30/24 10/30/24 10/31/24 Range/Units 08:42 08:42 03:54 WBC 13.0 H (3.8-10.6) k/uL RBC 2.94 L (3.80-5.40) m/uL Hgb 9.6 L (11.4-16.0) gm/dL Hct 30.8 L (34.0-46.0) % MCV 104.5 H (80.0-100.0) fL MCHC (31.0-37.0) g/dL Neutrophils # 11.0 H (1.3-7.7) k/uL Lymphocytes # 0.9 L (1.0-4.8) k/uL Macrocytosis Sodium 135 L (137-145) mmol/L Potassium 3.4 L (3.5-5.1) mmol/L Chloride 110 H 109 H (98-107) mmol/L Carbon Dioxide 20 L (22-30) mmol/L BUN 6 L 5 L (7-17) mg/dL Creatinine 0.46 L 0.41 L (0.52-1.04) mg/dL Calcium 8.3 L (8.4-10.2) mg/dL 10/31/24 Range/Units 03:54 WBC 10.8 H (3.8-10.6) k/uL RBC 2.53 L (3.80-5.40) m/uL Hgb 8.1 L D (11.4-16.0) gm/dL Hct 27.1 L (34.0-46.0) % MCV 107.0 H (80.0-100.0) fL MCHC 29.9 L (31.0-37.0) g/dL Neutrophils # 8.7 H (1.3-7.7) k/uL Lymphocytes # 0.8 L (1.0-4.8) k/uL Macrocytosis Marked A Sodium (137-145) mmol/L Potassium (3.5-5.1) mmol/L Chloride (98-107) mmol/L Carbon Dioxide (22-30) mmol/L BUN (7-17) mg/dL Creatinine (0.52-1.04) mg/dL Calcium (8.4-10.2) mg/dL Microbiology - Last 24 Hours (Table) 10/25/24 13:03 Blood Culture - Final Blood 10/27/24 17:00 Gram Stain - Preliminary Other - Other Wound Culture - Preliminary 10/27/24 16:54 Anaerobic Culture - Preliminary Other - Other 10/27/24 16:54 Gram Stain - Final Other - Other Wound Culture - Final
[2024-11-01 02:31] LABS: Basophils % (A) 0 %; Eosinophils # (A) 0.3 k/uL (0-0.7); Eosinophils % (A) 3 %; HCT 29.7 % (34.0-46.0); HGB 8.4 gm/dL (11.4-16.0); Hypochromasia Marked; Lymphocytes # (A) 1.3 k/uL (1.0-4.8); Lymphocytes % (A) 12 %; MCH 30.3 pg (25.0-35.0); MCHC 28.4 g/dL (31.0-37.0); MCV 106.8 fL (80.0-100.0); Macrocytosis Moderate; Mean Platelet Volume 7.7; Monocytes # (A) 1.1 k/uL (0-1.0); Monocytes % (A) 10 %; Neutrophils # (A) 8.1 k/uL (1.3-7.7); Neutrophils % (A) 74 %; Platelet Count 383 k/uL (150-450); RBC 2.78 m/uL (3.80-5.40); RDW 15.1 % (11.5-15.5)
[2024-11-01 03:57] LABS: Basophils % (A) 0 %; Eosinophils # (A) 0.3 k/uL (0-0.7); Eosinophils % (A) 3 %; HCT 25.9 % (34.0-46.0); HGB 7.6 gm/dL (11.4-16.0); Hypochromasia Marked; Lymphocytes # (A) 0.9 k/uL (1.0-4.8); Lymphocytes % (A) 8 %; MCH 31.4 pg (25.0-35.0); MCHC 29.2 g/dL (31.0-37.0); Macrocytosis Marked; Mean Platelet Volume 7.3; Monocytes # (A) 0.9 k/uL (0-1.0); Monocytes % (A) 9 %; Neutrophils % (A) 78 %; Platelet Count 366 k/uL (150-450); RBC 2.41 m/uL (3.80-5.40); RDW 14.8 % (11.5-15.5); WBC 10.1 k/uL (3.8-10.6)
[2024-11-01 03:58] LABS: MCV 107.5 fL (80.0-100.0)
[2024-11-01 04:15] LABS: African American GFR (CKD) >90 (>60 ml/min/1.73 sqM); Anion Gap 4 mmol/L; Blood Urea Nitrogen 6 mg/dL (7-17); Calcium 8.4 mg/dL (8.4-10.2); Carbon Dioxide 27 mmol/L (22-30); Chloride 103 mmol/L (98-107); Glucose 108 mg/dL (74-99); Non-African American GFR(CKD) >90 (>60 ml/min/1.73 sqM); Potassium 3.2 mmol/L (3.5-5.1); Sodium 134 mmol/L (137-145)
--- NOTE | 2024-11-01 07:07 | P.CONS ---
History of Present Illness - Reason for Consult Consult date: 10/31/24 ID management of antibiotics Requesting physician: Win Wiseman - Chief Complaint Back pain and nonhealing wound x days - History of Present Illness Patient is a 54-year-old female with a past medical history significant for fibromyalgia hypertension hyperlipidemia CT osteoarthritis who has been brought to the hospital about a week ago for evaluation of back pain in this patient who recently did have a C2-T7 decompression and fusion fracture reduction and realignment and subsequently has been dealing with a nonhealing wound to the mid back area for the patient was also admitted to this facility from 10/11/2024 to 10/13/2024 at that point she did have a CT of the thoracic spine that was negative for any fluid collection and she did have local culture those were negative during this admission patient was taken to the OR on 10/27/2024 with a postoperative diagnosis of wound dehiscence T8 burst compression fracture status post open treatment of T8 fracture irrigation and excisional debridement of the thoracic spine wound posterior lateral fusion T7-T11 patient did have a operative culture which has been negative blood culture has been negative patient did not have any fever during this hospital stay did have elevated white count of 12.2 on admission which went up to 13,000 however has normalized as of this morning patient was empirically treated with vancomycin cefepime which has been discontinued and infectious disease was consulted today for further management of any by therapy after the patient has been in the hospital for 7 days for presumed postoperative wound infection patient currently denies having any fever or any chills she is breathing comfortably on the 2 L current oxygen denies any chest pain or shortness with occasional cough that has no nausea no vomiting no abdominal pain or diarrhea patient mention pain to the mid back area is currently controlled with the pain medication and there has been no further drainage Review of Systems Positive point and negatives has been mentioned in the HPI, complete review of systems was performed and all other systems are negative Past Medical History Past Medical History: Asthma, Heart Failure, COPD, Deep Vein Thrombosis (DVT), Eye Disorder, Fibromyalgia, GERD/Reflux, Hyperlipidemia, Hypertension, Memory Impairment, Myocardial Infarction (CT), Osteoarthritis (OA), Pneumonia, Seizure Disorder, Skin Disorder, Syncope, Thyroid Disorder Additional Past Medical History / Comment(s): IBS, colitis, restless legs flexed syndrome, daily migraines, Vitamin D deficiency, benign left breast mass, gastritis, short term memory loss. Vision - "sees an orange aura." BILAT CATARACTS Last seizure 09/22/2024, PT STATES THAT DR. VILLALBA IS AWARE"Legs are weak and balance is off." checked bone marrow for cancer. Pt has pressure ulcer over lower incision from surgery on 09/09/2024. States she had a blood clot in leg but not sure which leg or when Last Myocardial Infarction Date:: 2009 History of Any Multi-Drug Resistant Organisms: None Reported Past Surgical History: Back Surgery, Hysterectomy, Orthopedic Surgery Additional Past Surgical History / Comment(s): D&C, bilateral knee arthroscopy. Past Anesthesia/Blood Transfusion Reactions: No Reported Reaction Additional Past Anesthesia/Blood Transfusion Reaction / Comm: severe anxiety coming out of anesthesia,no hx blood transfusion Past Psychological History: Anxiety, Bipolar, Depression, PTSD Smoking Status: Current every day smoker Past Alcohol Use History: None Reported Past Drug Use History: Marijuana - Past Family History Father Family Medical History: Cancer Additional Family Medical History / Comment(s): Father of pancreatic cancer at the age of 62yrs. and lung cancer Mother Family Medical History: Congestive Heart Failure (CHF) Additional Family Medical History / Comment(s): Mother of CHF at the age of 60yrs. Brother(s) Additional Family Medical History / Comment(s): Patient had 1 brother that at 5 months of age. Sister(s) Family Medical History: Deep Vein Thrombosis (DVT) Additional Family Medical History / Comment(s): Patient has one sister with history of depression and bipolar. Patient has 2 half-sisters and one at age 26 from overdose. Patient does not have any children. Medications and Allergies Home Medications Medication Instructions Recorded Confirmed Type Asenapine Maleate [Saphris] 10 mg SUBLINGUAL BID 04/30/17 10/25/24 History Sertraline [Zoloft] 200 mg PO DAILY 04/30/17 10/25/24 History Pantoprazole Sodium [Protonix] 40 mg PO BID 01/07/19 10/25/24 History Topiramate [Trokendi Xr] 100 mg PO DAILY 04/15/21 10/25/24 History cloBAZam [Sympazan] 10 mg PO BID 04/15/21 10/25/24 History hydrOXYzine pamoate [Vistaril] 50 mg PO TID PRN 04/16/21 10/25/24 History Albuterol Sulfate [Proair Hfa] 2 puff INHALATION RT-QID PRN 05/10/21 10/25/24 History Prazosin HCl [Minipress] 2 mg PO BID@1700,2100 05/10/21 10/25/24 History rOPINIRole HCL [Requip] 2 mg PO BID 05/10/21 10/25/24 History Fluticasone/Umeclidin/Vilanter 1 puff INHALATION RT-DAILY 12/10/22 10/25/24 History [Trelegy Ellipta 100-62.5-25] Brivaracetam [Briviact] 100 mg PO BID 07/10/23 10/25/24 History Budesonide [Pulmicort] 0.5 mg INHALATION RT-BID PRN 07/27/23 10/25/24 History Butalb/Acetaminophen/Caffeine 1 tab PO Q6H PRN 07/27/23 10/25/24 History [Fioricet 50-325-40] Cetirizine HCl [Zyrtec] 10 mg PO DAILY 07/27/23 10/25/24 History Fluticasone Nasal [place] [Flonase 1 spray EA NOSTRIL DAILY 07/27/23 10/25/24 History Nasal [place]] Ipratropium-Albuterol Nebulize 3 ml INHALATION RT-QID 07/27/23 10/25/24 History [Duoneb 0.5 mg-3 mg/3 ml Soln] Levothyroxine Sodium [Synthroid] 88 mcg PO DAILY 07/27/23 10/25/24 History Propranolol [Inderal] 20 mg PO BID 07/27/23 10/25/24 History Acetaminophen-Codeine 300-30mg 1 tab PO TID PRN 09/05/24 10/25/24 History [Tylenol w/codeine #3] Gabapentin 800 mg PO TID #90 tab 09/13/24 10/25/24 Rx Acetaminophen Tab [Tylenol Tab] 500 mg PO Q6HR PRN 10/25/24 10/25/24 History Albuterol Nebulized [Ventolin 2.5 mg INHALATION RT-BID 10/25/24 10/25/24 History Nebulized] Cholecalciferol (Vitamin D3) 50 mcg PO DAILY 10/25/24 10/25/24 History [Vitamin D3 (50 Mcg = 2000 Iu)] Cyclobenzaprine [Flexeril] 10 mg PO BID 10/25/24 10/25/24 History Furosemide [Lasix] 40 mg PO DAILY 10/25/24 10/25/24 History HYDROcodone/APAP 10-325MG [[place] 1 tab PO Q6H PRN 10/25/24 10/25/24 History 10-325] Ibuprofen [Motrin] 800 mg PO Q8H PRN 10/25/24 10/25/24 History Montelukast [Singulair] 10 mg PO HS 10/25/24 10/25/24 History Multivitamins, Thera [Multivitamin 1 tab PO DAILY 10/25/24 10/25/24 History (formulary)] busPIRone HCL 15 mg PO TID 10/25/24 10/25/24 History rOPINIRole HCL [Requip] 1 mg PO BID 10/25/24 10/25/24 History Allergies Allergy/AdvReac Type Severity Reaction Status Date / Time bee venom protein (honey bee) Allergy Anaphylaxis Verified 10/25/24 14:46 Physical Exam Vitals: Vital Signs Temp Pulse Pulse Resp BP BP Pulse Ox 10/31/24 08:23 85 10/31/24 08:12 82 10/31/24 08:11 82 10/31/24 08:00 98.0 F 96 18 97/61 95 10/31/24 07:59 96 10/31/24 07:56 78 10/31/24 04:00 85 10/31/24 03:50 91 10/31/24 02:00 98.1 F 98 14 122/74 95 10/31/24 00:10 90 10/31/24 00:00 91 10/30/24 20:26 93 10/30/24 20:09 94 10/30/24 20:00 97.6 F 95 17 126/82 95 10/30/24 19:42 94 10/30/24 14:00 97.4 F L 106 H 16 98/56 94 L 10/30/24 12:21 95 10/30/24 12:12 95 Intake and Output 10/30/24 10/31/24 10/31/24 22:59 06:59 14:59 Intake Total 1480 1190 10 Output Total 450 1050 Balance 1030 140 10 Intake: IV 960 950 10 Cefepime 1 gm In Sodium 100 100 Chloride 0.9% 50 ml @ 12. 5 mls/hr IVPB Q8H [facility] Rx# :[id number] Invasive Line 6 10 10 Sodium Chloride 0.9% 1, 600 600 000 ml @ 100 mls/hr IV . Q10H [facility] Rx#:[id number] Vancomycin 750 mg In 250 250 Sodium Chloride 0.9% 250 ml @ 125 mls/hr IVPB Q12HR@0200,1400 [facility] Rx#: [id number] Oral 520 240 Output: Urine 450 1050 Other: Voiding Method Indwelling Catheter Indwelling Catheter # Bowel Movements 2 Weight 52.6 kg GENERAL DESCRIPTION: Middle-aged female lying in bed, no distress. No tachypnea or accessory muscle of respiration use. HEENT: Shows Pallor , no scleral icterus. Oral mucous membrane is dry. No pharyngeal erythema or thrush NECK: Trachea central, no thyromegaly. LUNGS: Unlabored breathing. Clear to auscultation anteriorly. No wheeze or crackle. HEART: S1, S2, regular rate and rhythm. No loud murmur ABDOMEN: Soft, no tenderness , guarding or rigidity, no organomegaly EXTREMITIES: No edema of feet. SKIN: Examination of the back incision is currently staged the no significant sw elling redness or any drainage was noticed on the dressing NEUROLOGICAL: The patient is awake, alert, oriented x3, mood and affect normal. Results CBC & Chem 7: 11/01/24 03:22 11/01/24 03:22 Labs: Abnormal Lab Results - Last 24 Hours (Table) 10/31/24 10/31/24 Range/Units 03:54 03:54 WBC 10.8 H (3.8-10.6) k/uL RBC 2.53 L (3.80-5.40) m/uL Hgb 8.1 L D (11.4-16.0) gm/dL Hct 27.1 L (34.0-46.0) % MCV 107.0 H (80.0-100.0) fL MCHC 29.9 L (31.0-37.0) g/dL Neutrophils # 8.7 H (1.3-7.7) k/uL Lymphocytes # 0.8 L (1.0-4.8) k/uL Macrocytosis Marked A Sodium 135 L (137-145) mmol/L Chloride 109 H (98-107) mmol/L BUN 5 L (7-17) mg/dL Creatinine 0.41 L (0.52-1.04) mg/dL Calcium 8.3 L (8.4-10.2) mg/dL Microbiology - Last 24 Hours (Table) 10/25/24 13:03 Blood Culture - Final Blood 10/27/24 17:00 Gram Stain - Preliminary Other - Other Wound Culture - Preliminary 10/27/24 16:54 Anaerobic Culture - Preliminary Other - Other 10/27/24 16:54 Gram Stain - Final Other - Other Wound Culture - Final Assessment and Plan (1) Postoperative wound dehiscence Current Visit: Yes Status: Acute Code(s): T81.31XA - DISRUPTION OF EXTERNAL OPERATION (SURGICAL) WOUND, NEC, INIT SNOMED Code(s): 863319183 (2) Leukocytosis Current Visit: No Status: Acute Code(s): D72.829 - ELEVATED WHITE BLOOD CELL COUNT, UNSPECIFIED SNOMED Code(s): 109255101 Plan: 1patient with a complicated history and this patient who recently did have extensive thoracocervical spine surgery with subsequent nonhealing wound has been admitted to hospital about a week ago before admission and evaluation and is status post surgical debridement of the wound and open treatment of the fracture, operative report did not mention any purulent drainage she did have multiple cultures from the surgical site which has been negative blood culture h ave been negative did have mild elevated white count admission that has subsequent normalized and did not have any fever making infection to be less likely 2-antibiotics seems to have been discontinued and the patient will be monitored closely off antibiotic therapy at this point Multiple question concern answered We will follow on clinical condition and cultures to further adjust medication if needed Thank you for this consultation we will follow the patient along with you Dictation was produced using [employer] dictation software. please excuse any grammatical, word or spelling errors. Time with Patient: Greater than 30
[2024-11-01] MEDS: PANTOPRAZOLE 40 MG/10 ML VIAL IVP SCH (09:03)
--- NOTE | 2024-11-01 12:58 | P.PN ---
Subjective Progress Note Date: 11/01/24 Patient is a 54-year-old female with past medical history significant for asthma/COPD, hypertension, hyperlipidemia, CAD, heart failure, DVT, hypothyroidism, seizure disorder, osteoarthritis and multiple previous back surgeries. Most recently, underwent open treatment of T2 vertebral fracture and revision of C2-T7 posterior lateral fusion on 09/09/2024. Concerns for surgical site infection on outpatient basis, and was treated with antibiotics. On 10/24/2024 she was seen in the emergency department for continued concerns of a surgical site infection. Reports of thoracic level pain and green/brown discharge. Unfortunately, patient left AGAINST MEDICAL ADVICE. Patient returned the following day with similar complaints, and was admitted to the hospital. Patient was taken back to the operating room and did undergo open treatment of a T8 fracture, irrigation and excisional debridement of thoracic spine wound measuring 10 x 7 x 4 cm, posterior lateral instrumented fusion of T7-T11 and cement augmentation of T8-T10 vertebral bodies. Following the surgery, patient was extubated in the postanesthesia care unit, and transferred to the intensive care unit. Per the ICU nurse, patient was on a 6 L simple mask and obtunded. ABGs consistent with severe hypercapnic respiratory failure. Patient was trialed on BiPAP with settings 14/5 and FiO2 50%. Repeat ABG showing only minimal improvement with a PaO2 of 85, pCO2 75, pH of 7.12. Dr. Dumont was previously contacted and gave orders to intubate the patient, and this was done by [facility] [employer] TECHNICIAN at 2225. I am seeing this patient in room 252 following the intubation. Postintubation chest x-ray showing the ET tube tip approximately 2 to 3 cm above the sergo, orogastric tube in satisfactory position, cervical and thoracic postsurgical hardware, hyperinflation consistent with COPD. Current ventilator settings AC, respiratory rate 18, tidal volume 400, FiO2 100 %, PEEP of 5. Follow-up ABGs, showing a PaO2 of 332, pCO2 50, pH is 7.26. Appropriate adjustments were made. Peak pressures are elevated at 34 and static airway pressure is 21. She does have diffuse expiratory wheezing. Started on combination of DuoNebs, formoterol and budesonide inhalations, and steroids. No secretions in the ET tube. No reported aspiration events. Prop ofol is going to be started. She does have a Hemovac drain with small amount of sanguinous output. Also, started on some empiric antibiotics in the form of cefepime and vancomycin. Blood and wound cultures are pending. CBC: WBC count 13.9, hemoglobin 10.4, platelets 598. Preop BMP includes a sodium 134, potassium 3.9, chloride 105, serum bicarb 25, BUN 13, creatinine 0.6, glucose 89. Was noted to be hypotensive following intubation, and was given 2 L of normal saline bolused. Blood pressure now normotensive. Normal saline continuous at 100 mL/h. 10/29/2024, the patient is calm and comfortable, still complaining of pain in her back. Able to move all 4 extremities without any limitation. A bit sleepy. No significant shortness of breath. Surgical wound is dry. Hemovac is in place. Output is 10 cc over the past 8 hours. Fluid balance is +1.1 L and the patient remains on normal citrate of 100 cc an hour. No other significant events overnight. She is extubated. White cell count is 11 hemoglobin 9.6 and a platelet count of 461. Sodium is at 137, potassium is 4, BUN 7 with a creatinine of 0.5. Calcium level is at 8.5. 10/30/2024, the patient is awake alert and comfortable. Pain is under better control. She is on status of oxygen by nasal cannula. She is on normal saline at 100 cc an hour. She had a urinary retention and Howell catheter was inserted. Hemovac has been removed. Surgical wound site is dry clean and intact.No other complaints otherwise for now. The white cell count is at 13 with a hemoglobin 9.6 and a platelet count is at 355. Electrolytes show a potassium level of 3.4, serum bicarb of 20, gap of 7, BUN 6 with a creatinine of 0.4. No other significant events overnight. Cultures are negative. The patient remains on cefepime and vancomycin. Tolerating her diet. Patient was seen today on 10/31/2024, patient is now postoperative day #4, seems to be doing well remains on cefepime, off vancomycin, she is still receiving treatment for COPD, and she is being followed by infectious disease. She is hemodynamically stable not requiring any pressors. Her WBC count is 10.8 hemoglobin 8.1 electrolytes are normal renal profile is normal. Patient denies any abdominal pain or discomfort. The patient is seen today November 01, 2024 in follow-up on the regular medical floor. Postoperative day #5. She is currently sitting up in a chair at the bedside. Awake and alert in no acute distress. Maintaining good O2 saturations in the 90s on 2 L/min per nasal cannula. She is afebrile. Hemodynamically stable. Blood and wound cultures from her back revealed no growth. Hemoglobin 7.6. Platelets 366. Sodium 134. Potassium 3.2. Bicarb 27. BUN 6. Creatinine 0.42. Glucose 108. She is continued on DuoNeb inhalations, Pulmicort and Perforomist inhalations. NicoDerm patch in place. She completed a course of antibiotics. She did have issues with rectal prolapse and bleeding last night. Surgery has been consulted. Objective - Vital Signs Vital signs: Vital Signs Temp 97.5 F L 11/01/24 06:48 Pulse 70 11/01/24 09:10 Resp 16 11/01/24 09:10 BP 110/73 11/01/24 06:48 Pulse Ox 93 L 11/01/24 06:48 FiO2 40 10/28/24 09:00 Intake & Output 10/31/24 11/01/24 11/01/24 18:59 06:59 18:59 Intake Total 1090 Output Total 675 600 Balance 415 -600 Weight 52.6 kg Intake: IV 10 Invasive Line 6 10 Intake, IV Titration 600 Amount Sodium Chloride 0.9% 1, 600 000 ml @ 50 mls/hr IV . Q20H [facility] Rx#:[id number] Oral 480 Output: Urine 675 600 Other: Voiding Method Indwelling Catheter Indwelling Catheter Indwelling Catheter # Bowel Movements 1 ABP, PAP, CO, CI - Last Documented Arterial Blood Pressure 144/79 - Exam GENERAL EXAM: Revealed a pleasant 54-year-old female in no distress, sitting up in a chair, on 2 L nasal cannula HEAD: Normocephalic and atraumatic EYES: Normal reaction of pupils, equal size. NOSE: Clear with pink turbinates. THROAT: No erythema or exudates. Orogastric tube noted NECK: No masses, no JVD. CHEST: No chest wall deformity. LUNGS: Clear bilaterally minimal wheezing on forced expiratory maneuver CVS: S1 and S2 normal with no audible murmur, regular rhythm. No extra heart sounds ABDOMEN: No hepatosplenomegaly, active bowel sounds, no guarding or rigidity. SKIN: No rashes CENTRAL NERVOUS SYSTEM: Awake alert and oriented x 3 no gross focal deficit Psychiatric: Normal mood affect and no mental status examination Skin: No rashes. - Labs CBC & Chem 7: 11/01/24 03:22 11/01/24 03:22 Labs: Abnormal Lab Results - Last 24 Hours (Table) 11/01/24 11/01/24 11/01/24 Range/Units 01:47 03:22 03:22 WBC 11.0 H (3.8-10.6) k/uL RBC 2.78 L 2.41 L (3.80-5.40) m/uL Hgb 8.4 L 7.6 L (11.4-16.0) gm/dL Hct 29.7 L 25.9 L (34.0-46.0) % MCV 106.8 H 107.5 H (80.0-100.0) fL MCHC 28.4 L 29.2 L (31.0-37.0) g/dL Neutrophils # 8.1 H 8.0 H (1.3-7.7) k/uL Lymphocytes # 0.9 L (1.0-4.8) k/uL Monocytes # 1.1 H (0-1.0) k/uL Macrocytosis Marked A Sodium 134 L (137-145) mmol/L Potassium 3.2 L (3.5-5.1) mmol/L BUN 6 L (7-17) mg/dL Creatinine 0.42 L (0.52-1.04) mg/dL Glucose 108 H (74-99) mg/dL Microbiology - Last 24 Hours (Table) 10/27/24 16:54 Anaerobic Culture - Final Other - Other 10/27/24 17:00 Anaerobic Culture - Final Other - Other 10/27/24 17:00 Gram Stain - Final Other - Other Wound Culture - Final Assessment and Plan Assessment: Status postoperative day #5 following open treatment of a T8 fracture, irrigation and excisional debridement of thoracic spine wound measuring 10 x 7 x 4 cm, posterior lateral instrumented fusion of T7-T11 and cement augmentation of T8-T10 vertebral bodies. Acute hypoxemic and hypercapnic respiratory failure, recovered and the patient is currently on 3 L of O2 nasal cannula, extubated on 10/28/2024. Chronic obstructive pulmonary disease/asthma, currently inactive and stable T2 vertebral fracture with revision of C2-T7 posterior lateral fusion on 09/09/2024 Surgical site infection and wound dehiscence, wound and blood cultures revealed no growth Acute leukocytosis, improved Macrocytic anemia Rectal prolapse with bleeding History of hypertension History of hyperlipidemia History of coronary artery disease History of heart failure with preserved ejection fraction History of gastroesophageal reflux disease History of seizure disorder History of hypothyroidism History of anxiety/depression/PTSD Plan: The patient was seen and evaluated Labs and medications reviewed Surgery consulted regarding rectal prolapse Completed antibiotics Blood and wound cultures revealed no growth Stable and on 2 L nasal cannula Continue DuoNeb inhalations Continue Pulmicort and performance inhalations Educated regarding smoking cessation NicoDerm patch in place Titrate down the FiO2 as tolerated This patient was seen independently by the pulmonary nurse practitioner addressing pulmonary issues I have personally seen and examined the patient, performed the documentation and the assessment and plan as written. Number of minutes spent on the visit: 25 Dictation was produced using [employer] dictation software. Please excuse any grammatical, word or spelling errors.
--- NOTE | 2024-11-01 13:03 | P.PN ---
Subjective Progress Note Date: 11/01/24 Principal diagnosis: 1. WOUND DEHISCENCE THORACIC SPINE 2. T8 BURST COMPRESSION FRACTURE WITH KYPHOTIC DEFORMITY 3. S/P MULTIPLE FRACTURE SURGERIES AND REVISION 4. THORACIC BACK PAIN 5. COMPLEX MEDICAL PATIENT Patient seen sitting up in chair on 4 S. with dressing present over lumbar spine. Patient says she is having a lot of pain in her buttocks at this time. Was found to have rectal prolapse. Medicine has consulted general surgery awaiting general surgery recommendations. Patient says she does still want to go home when she is cleared. Infectious disease following. Patient says she did get up with therapy this morning and walked around the room using walker and did fairly well. Patient denies any other issues at this time. Objective - Vital Signs Vital signs: Vital Signs Temp 97.5 F L 11/01/24 06:48 Pulse 70 11/01/24 09:10 Resp 16 11/01/24 09:10 BP 110/73 11/01/24 06:48 Pulse Ox 93 L 11/01/24 06:48 FiO2 40 10/28/24 09:00 Intake & Output 10/31/24 11/01/24 11/01/24 18:59 06:59 18:59 Intake Total 1090 Output Total 675 600 Balance 415 -600 Weight 52.6 kg Intake: IV 10 Invasive Line 6 10 Intake, IV Titration 600 Amount Sodium Chloride 0.9% 1, 600 000 ml @ 50 mls/hr IV . Q20H [facility] Rx#:[id number] Oral 480 Output: Urine 675 600 Other: Voiding Method Indwelling Catheter Indwelling Catheter Indwelling Catheter # Bowel Movements 1 ABP, PAP, CO, CI - Last Documented Arterial Blood Pressure 144/79 - Exam Dressing CDI. Sensation is equal, symmetric, bilat intact throughout the upper and lower extremities on exam. Patient does have tenderness palpation over the incision. Nontender on rest of exam. Patient does have good range of motion on exam. 4/5 in all major motor groups in bilateral upper and lower extremities. Radial pulse intact, 2+ bilaterally. Negative Homans bilaterally. Cap refill under 3 seconds in digits of upper extremities. Negative clonus bilaterally. Negative Suhas bilaterally. - Labs CBC & Chem 7: 11/01/24 03:22 11/01/24 03:22 Labs: Abnormal Lab Results - Last 24 Hours (Table) 0211/01/24 11/01/24 Range/Units 01:47 03:22 03:22 WBC 11.0 H (3.8-10.6) k/uL RBC 2.78 L 2.41 L (3.80-5.40) m/uL Hgb 8.4 L 7.6 L (11.4-16.0) gm/dL Hct 29.7 L 25.9 L (34.0-46.0) % MCV 106.8 H 107.5 H (80.0-100.0) fL MCHC 28.4 L 29.2 L (31.0-37.0) g/dL Neutrophils # 8.1 H 8.0 H (1.3-7.7) k/uL Lymphocytes # 0.9 L (1.0-4.8) k/uL Monocytes # 1.1 H (0-1.0) k/uL Macrocytosis Marked A Sodium 134 L (137-145) mmol/L Potassium 3.2 L (3.5-5.1) mmol/L BUN 6 L (7-17) mg/dL Creatinine 0.42 L (0.52-1.04) mg/dL Glucose 108 H (74-99) mg/dL Microbiology - Last 24 Hours (Table) 10/27/24 16:54 Anaerobic Culture - Final Other - Other 10/27/24 17:00 Anaerobic Culture - Final Other - Other 10/27/24 17:00 Gram Stain - Final Other - Other Wound Culture - Final Assessment and Plan Assessment: 1. WOUND DEHISCENCE THORACIC SPINE; T8 BURST COMPRESSION FRACTURE WITH KYPHOTIC DEFORMITY; S/P MULTIPLE FRACTURE SURGERIES AND REVISION; THORACIC BACK PAIN - Postop day 5 status post open treatment T8 fracture; irrigation and excisional debridement of thoracic spine wound; posterior lateral instrumented fusion T7- T11 Plan: 1. WOUND DEHISCENCE THORACIC SPINE; T8 BURST COMPRESSION FRACTURE WITH KYPHOTIC DEFORMITY; S/P MULTIPLE FRACTURE SURGERIES AND REVISION; THORACIC BACK PAIN - surgery performed , 10/27/2024open treatment T8 fracture; irrigation and excisional debridement of thoracic spine wound; posterior lateral instrumented fusion T7-T11. Patient currently on 4S. Found to have rectal prolapse, medicine consulted general surgery. Dressing CDI. work with PT/OT daily. We will continue to follow patient during stay in hospital. Pain medication as needed. Plan for discharge home tomorrow with home care pending general surgery clearance 2. Appreciate medical, general surgery, infectious disease, pulmonology management 3. Pain management - gabapentin; flexeril; [place] 4. DVT prophylaxis - mechanical 5. GI prophylaxis - protonix 6. PT/OT -weightbearing as tolerated with walker and soft c-collar on at all times 7. Encourage incentive spirometer use 8. Discharge planning -plan for discharge home tomorrow pending clearance from general surgery Time with Patient: Less than 30
--- NOTE | 2024-11-01 14:35 | P.CONS ---
History of Present Illness - Reason for Consult Consult date: 11/01/24 Rectal bleeding with rectal prolapse Requesting physician: Kristina Wells - Chief Complaint Rectal prolapse - History of Present Illness This a pleasant 54-year-old female with multiple comorbidities including recent back surgery with readmission for infected surgical site, significant anxiety, depression and posttraumatic stress disorder, memory loss, irritable bowel s yndrome mixed with constipation and diarrhea. Apparently yesterday patient had a bowel movement earlier in the day which she states was normal. Later in the day she felt as though she had to have a bowel movement she got up to go to the bathroom and she had rectal bleeding that was a darker red with burning around her rectum and prolapsed rectum. She has a history of a prolapsed rectum for the past several years. States that it has been prolapse for the last 2 or 3 days. She had constipation prior to coming into the hospital but since being in the hospital bowel movements have been regular. Gastroenterology was consulted for rectal bleeding with prolapsed rectum. Her last colonoscopy was in [address] Aguirre which at that time she also had an upper endoscopy. Colonoscopy with findings of inflammation near the rectal sigmoid junction and proctitis. She was treated for infectious colitis at that time. Her upper endoscopy showed a small hiatal hernia and mild antral gastritis. She states that she has not had any further bowel movements since yesterday morning, she has not had any further rectal bleeding. Review of Systems REVIEW OF SYSTEMS: CARDIOPULMONARY: No chest pain or shortness of breath. Gastrointestinal: No abdominal pain. No nausea or vomiting. No hematemesis, coffee-ground emesis. Rectal bleeding now resolved. Constipation mixed with diarrhea. GENITOURINARY: No dysuria or hematuria. Rectal prolapse. MUSCULOSKELETAL: Reports normal range of motion. back pain. SKIN: No rashes. No jaundice. ENDOCRINE: No chills, fevers. No excessive weight gain or loss. No polydipsia or polyuria. PSYCHIATRIC: Anxiety, depression, PTSD. Memory loss. NEUROLOGY: No change in mental status. Denies dizziness, headache. ENT: Vision unremarkable. CONSTITUTIONAL: No recent weight loss. No fever, chills, night sweats. Past Medical History Past Medical History: Asthma, Heart Failure, COPD, Deep Vein Thrombosis (DV[place]), Eye Disorder, Fibromyalgia, GERD/Reflux, Hyperlipidemia, Hypertension, Memory Impairment, Myocardial Infarction ([place]), Osteoarthritis ([place]), Pneumonia, Seizure Disorder, Skin Disorder, Syncope, Thyroid Disorder Additional Past Medical History / Comment(s): IBS, colitis, restless legs flexed syndrome, daily migraines, Vitamin D deficiency, benign left breast mass, gastritis, short term memory loss. Vision - "sees an orange aura." BILAT CATARACTS Last seizure 09/22/2024, PT STATES THAT DR. VILLALBA IS AWARE"Legs are weak and balance is off." checked bone marrow for cancer. Pt has pressure ulcer over lower incision from surgery on 09/09/2024. States she had a blood clot in leg but not sure which leg or when Last Myocardial Infarction Date:: 2009 History of Any Multi-Drug Resistant Organisms: None Reported Past Surgical History: Back Surgery, Hysterectomy, Orthopedic Surgery Additional Past Surgical History / Comment(s): D&C, bilateral knee arthroscopy. Past Anesthesia/Blood Transfusion Reactions: No Reported Reaction Additional Past Anesthesia/Blood Transfusion Reaction / Comm: severe anxiety coming out of anesthesia,no hx blood transfusion Past Psychological History: Anxiety, Bipolar, Depression, PTSD Smoking Status: Current every day smoker Past Alcohol Use History: None Reported Past Drug Use History: Marijuana - Past Family History Father Family Medical History: Cancer Additional Family Medical History / Comment(s): Father of pancreatic cancer at the age of 62yrs. and lung cancer Mother Family Medical History: Congestive Heart Failure (CHF) Additional Family Medical History / Comment(s): Mother of CHF at the age of 60yrs. Brother(s) Additional Family Medical History / Comment(s): Patient had 1 brother that at 5 months of age. Sister(s) Family Medical History: Deep Vein Thrombosis (DVT) Additional Family Medical History / Comment(s): Patient has one sister with history of depression and bipolar. Patient has 2 half-sisters and one at age 26 from overdose. Patient does not have any children. Medications and Allergies Home Medications Medication Instructions Recorded Confirmed Type Asenapine Maleate [Saphris] 10 mg SUBLINGUAL BID 04/30/17 10/25/24 History Sertraline [Zoloft] 200 mg PO DAILY 04/30/17 10/25/24 History Pantoprazole Sodium [Protonix] 40 mg PO BID 01/07/19 10/25/24 History Topiramate [Trokendi Xr] 100 mg PO DAILY 04/15/21 10/25/24 History cloBAZam [Sympazan] 10 mg PO BID 04/15/21 10/25/24 History hydrOXYzine pamoate [Vistaril] 50 mg PO TID PRN 04/16/21 10/25/24 History Albuterol Sulfate [Proair Hfa] 2 puff INHALATION RT-QID PRN 05/10/21 10/25/24 History Prazosin HCl [Minipress] 2 mg PO BID@1700,2100 05/10/21 10/25/24 History rOPINIRole HCL [Requip] 2 mg PO BID 05/10/21 10/25/24 History Fluticasone/Umeclidin/Vilanter 1 puff INHALATION RT-DAILY 12/10/22 10/25/24 History [Vidhi Ellipta 100-62.5-25] Brivaracetam [Briviact] 100 mg PO BID 07/10/23 10/25/24 History Budesonide [Pulmicort] 0.5 mg INHALATION RT-BID PRN 07/27/23 10/25/24 History Butalb/Acetaminophen/Caffeine 1 tab PO Q6H PRN 07/27/23 10/25/24 History [Fioricet 50-325-40] Cetirizine HCl [Zyrtec] 10 mg PO DAILY 07/27/23 10/25/24 History Fluticasone Nasal [place] [Flonase 1 spray EA NOSTRIL DAILY 07/27/23 10/25/24 History Nasal [place]] Ipratropium-Albuterol Nebulize 3 ml INHALATION RT-QID 07/27/23 10/25/24 History [Duoneb 0.5 mg-3 mg/3 ml Soln] Levothyroxine Sodium [Synthroid] 88 mcg PO DAILY 07/27/23 10/25/24 History Propranolol [Inderal] 20 mg PO BID 07/27/23 10/25/24 History Acetaminophen-Codeine 300-30mg 1 tab PO TID PRN 09/05/24 10/25/24 History [Tylenol w/codeine #3] Gabapentin 800 mg PO TID #90 tab 09/13/24 10/25/24 Rx Acetaminophen Tab [Tylenol Tab] 500 mg PO Q6HR PRN 10/25/24 10/25/24 History Albuterol Nebulized [Ventolin 2.5 mg INHALATION RT-BID 10/25/24 10/25/24 History Nebulized] Cholecalciferol (Vitamin D3) 50 mcg PO DAILY 10/25/24 10/25/24 History [Vitamin D3 (50 Mcg = 2000 Iu)] Cyclobenzaprine [Flexeril] 10 mg PO BID 10/25/24 10/25/24 History Furosemide [Lasix] 40 mg PO DAILY 10/25/24 10/25/24 History HYDROcodone/APAP 10-325MG [[place] 1 tab PO Q6H PRN 10/25/24 10/25/24 History 10-325] Ibuprofen [Motrin] 800 mg PO Q8H PRN 10/25/24 10/25/24 History Montelukast [Singulair] 10 mg PO HS 10/25/24 10/25/24 History Multivitamins, Thera [Multivitamin 1 tab PO DAILY 10/25/24 10/25/24 History (formulary)] busPIRone HCL 15 mg PO TID 10/25/24 10/25/24 History rOPINIRole HCL [Requip] 1 mg PO BID 10/25/24 10/25/24 History Allergies Allergy/AdvReac Type Severity Reaction Status Date / Time bee venom protein (honey bee) Allergy Anaphylaxis Verified 10/25/24 14:46 Physical Exam Vitals: Vital Signs Temp Pulse Pulse Pulse Resp BP BP 11/01/24 08:52 92 11/01/24 08:38 92 11/01/24 08:37 92 11/01/24 08:22 92 11/01/24 06:48 97.5 F L 70 16 110/73 11/01/24 02:01 98 F 87 17 104/69 10/31/24 22:21 98.5 F 95 17 104/67 10/31/24 20:00 98.6 F 94 94 16 101/59 10/31/24 14:00 98.3 F 92 18 129/75 10/31/24 12:59 84 10/31/24 12:47 84 Pulse Ox 11/01/24 08:52 11/01/24 08:38 11/01/24 08:37 11/01/24 08:22 11/01/24 06:48 93 L 11/01/24 02:01 98 10/31/24 22:21 98 10/31/24 20:00 94 L 10/31/24 14:00 98 10/31/24 12:59 10/31/24 12:47 Intake and Output 10/31/24 11/01/24 11/01/24 22:59 06:59 14:59 Intake Total 490 Output Total 425 600 Balance 65 -600 Intake: Intake, IV Titration 250 Amount Sodium Chloride 0.9% 1, 250 000 ml @ 50 mls/hr IV . Q20H [facility] Rx#:[id number] Oral 240 Output: Urine 425 600 Other: Voiding Method Indwelling Catheter General appearance: The patient is alert, oriented, appears in no acute distress. HET: Head is normocephalic and atraumatic. Conjunctiva pink. Sclera anicteric. Neck: Supple without lymphadenopathy. Trachea midline. Heart: Regular. Lungs: Equal expansion, normal respiratory effort. Abdomen: Soft, nontender, nondistended. Rectum: Patient with rectal prolapse, with erythema, swollen and firm. No active bleeding noted. Skin: No rashes. No jaundice. Extremities: Normal skin color and turgor. No pedal edema. Neurological: No focal deficits. Alert and oriented x3. Results CBC & Chem 7: 11/01/24 03:22 11/01/24 03:22 Labs: Abnormal Lab Results - Last 24 Hours (Table) 11/01/24 11/01/24 11/01/24 Range/Units 01:47 03:22 03:22 WBC 11.0 H (3.8-10.6) k/uL RBC 2.78 L 2.41 L (3.80-5.40) m/uL Hgb 8.4 L 7.6 L (11.4-16.0) gm/dL Hct 29.7 L 25.9 L (34.0-46.0) % MCV 106.8 H 107.5 H (80.0-100.0) fL MCHC 28.4 L 29.2 L (31.0-37.0) g/dL Neutrophils # 8.1 H 8.0 H (1.3-7.7) k/uL Lymphocytes # 0.9 L (1.0-4.8) k/uL Monocytes # 1.1 H (0-1.0) k/uL Macrocytosis Marked A Sodium 134 L (137-145) mmol/L Potassium 3.2 L (3.5-5.1) mmol/L BUN 6 L (7-17) mg/dL Creatinine 0.42 L (0.52-1.04) mg/dL Glucose 108 H (74-99) mg/dL Microbiology - Last 24 Hours (Table) 10/27/24 17:00 Anaerobic Culture - Final Other - Other 10/27/24 17:00 Gram Stain - Final Other - Other Wound Culture - Final Assessment and Plan (1) Rectal prolapse Narrative/Plan: 54-year-old female with history of rectal prolapse with recurrent rectal pr olapse. Patient states she has not followed in the past with any particular surgeon. Will recommend surgical consultation for evaluation of rectal prolapse. Patient last colonoscopy in 2019. No need for repeat colonoscopy at this time. Continue with recommendations from general surgery. Current Visit: No Status: Acute Code(s): K62.3 - RECTAL PROLAPSE SNOMED Code(s): 11004231 (2) IBS (irritable bowel syndrome) Narrative/Plan: Patient with history of IBS with constipation mixed with diarrhea. Patient was constipated several days prior to coming into the hospital. Likely prolapsed rectum secondary to chronic constipation and straining. Current Visit: Yes Status: Acute Code(s): K58.9 - IRRITABLE BOWEL SYNDROME, UNSPECIFIED SNOMED Code(s): 10641415 (3) Postoperative infection Current Visit: Yes Status: Acute Code(s): T81.40XA - INFECTION FOLLOWING A PROCEDURE, UNSPECIFIED, INIT SNOMED Code(s): 49661190 Plan: 1. Continue symptomatic and supportive care 2. Continue with stool softeners and laxatives to avoid constipation 3. Consult to general surgery for rectal prolapse 4. No further workup from gastroenterology Thank you for this consultation, we will sign off at this time. Dr. Kathrine Shahid I agree with the dictator's note, documented as a scribe by Janet Corey.
[2024-11-01] MEDS ORDERED: Potassium Replacement Protocol 1 EACH MISC MISCELLANE PRN (16:11)
[2024-11-01] MEDS: POTASSIUM CHLORIDE ER 20 MEQ TAB.ER PO SCH (16:28)
--- NOTE | 2024-11-01 16:52 | P.PN ---
Subjective Progress Note Date: 11/01/24 Principal diagnosis: Reason for follow-up is surgical wound dehiscence concern of infection Patient is a 54-year-old female with a past medical history significant for fibromyalgia hypertension hyperlipidemia MD osteoarthritis who has been brought to the hospital about a week ago for evaluation of back pain in this patient who recently did have a C2-T7 decompression and fusion fracture reduction and realignment and subsequently has been dealing with a nonhealing wo und to the mid back area, status post operative repair ID consulted for possible infection need for antibiotic therapy. On today's evaluation that is 11/01/2024, Patient is afebrile this morning patie nt denies having any chest pain shortness of breath or cough, the patient is currently on 2 L current oxygen, patient denies any abdominal pain no diarrhea no nausea no vomiting, pain to the back area is currently controlled. Patient white count normalized to 10.1, creatinine 0.42 cultures remains to be negative Objective - Vital Signs Vital signs: Vital Signs Temp 98.5 F 11/01/24 14:17 Pulse 88 11/01/24 15:49 Resp 16 11/01/24 14:17 BP 121/72 11/01/24 14:17 Pulse Ox 95 11/01/24 14:17 FiO2 40 10/28/24 09:00 Intake & Output 10/31/24 11/01/24 11/01/24 18:59 06:59 18:59 Intake Total 1090 Output Total 675 600 Balance 415 -600 Weight 52.6 kg Intake: IV 10 Invasive Line 6 10 Intake, IV Titration 600 Amount Sodium Chloride 0.9% 1, 600 000 ml @ 50 mls/hr IV . Q20H [facility] Rx#:[id number] Oral 480 Output: Urine 675 600 Other: Voiding Method Indwelling Catheter Indwelling Catheter Indwelling Catheter # Bowel Movements 1 ABP, PAP, CO, CI - Last Documented Arterial Blood Pressure 144/79 - Exam GENERAL DESCRIPTION: Middle-age female lying in bed in no distress RESPIRATORY SYSTEM: Unlabored breathing , decreased breath sounds at bases HEART: S1 S2 regular rate and rhythm , ABDOMEN: Soft , no tenderness EXTREMITIES: No edema feet - Labs CBC & Chem 7: 11/01/24 03:22 11/01/24 03:22 Labs: Abnormal Lab Results - Last 24 Hours (Table) 11/01/24 11/01/24 11/01/24 Range/Units 01:47 03:22 03:22 WBC 11.0 H (3.8-10.6) k/uL RBC 2.78 L 2.41 L (3.80-5.40) m/uL Hgb 8.4 L 7.6 L (11.4-16.0) gm/dL Hct 29.7 L 25.9 L (34.0-46.0) % MCV 106.8 H 107.5 H (80.0-100.0) fL MCHC 28.4 L 29.2 L (31.0-37.0) g/dL Neutrophils # 8.1 H 8.0 H (1.3-7.7) k/uL Lymphocytes # 0.9 L (1.0-4.8) k/uL Monocytes # 1.1 H (0-1.0) k/uL Macrocytosis Marked A Sodium 134 L (137-145) mmol/L Potassium 3.2 L (3.5-5.1) mmol/L BUN 6 L (7-17) mg/dL Creatinine 0.42 L (0.52-1.04) mg/dL Glucose 108 H (74-99) mg/dL Microbiology - Last 24 Hours (Table) 10/27/24 16:54 Anaerobic Culture - Final Other - Other 10/27/24 17:00 Anaerobic Culture - Final Other - Other 10/27/24 17:00 Gram Stain - Final Other - Other Wound Culture - Final Assessment and Plan (1) Postoperative wound dehiscence Current Visit: Yes Status: Acute Code(s): T81.31XA - DISRUPTION OF EXTERNAL OPERATION (SURGICAL) WOUND, NEC, INIT SNOMED Code(s): 884178308 (2) Leukocytosis Current Visit: No Status: Acute Code(s): D72.829 - ELEVATED WHITE BLOOD CELL COUNT, UNSPECIFIED SNOMED Code(s): 052388194 Plan: 1patient with a complicated history and this patient who recently did have extensive thoracocervical spine surgery with subsequent nonhealing wound has been admitted to hospital about a week ago before admission and evaluation and is status post surgical debridement of the wound and open treatment of the fracture, operative report did not mention any purulent drainage she did have multiple cultures from the surgical site which has been negative blood culture have been negative did have mild elevated white count admission that has subsequent normalized and did not have any fever making infection to be less likely 2-patient culture remains to be negative white count has normalized no fever will monitor closely off antibiotic therapy Dictation was produced using Linq3 dictation software. please excuse any grammatical, word or spelling errors. Time with Patient: Less than 30
--- NOTE | 2024-11-02 06:02 | P.CON ---
Consult Note - . Consult date: 11/02/24 Assessment/Plan:: This a pleasant 54-year-old female with multiple comorbidities including recent back surgery with readmission for infected surgical site, evaluated for rectal prolapse. She has had this many times before. It is currently inflamed and p ainful. Review of Systems REVIEW OF SYSTEMS: CARDIOPULMONARY: No chest pain or shortness of breath. Gastrointestinal: No abdominal pain. No nausea or vomiting. No hematemesis, coffee-ground emesis. Rectal bleeding now resolved. Constipation mixed with diarrhea. GENITOURINARY: No dysuria or hematuria. Rectal prolapse. MUSCULOSKELETAL: Reports normal range of motion. back pain. SKIN: No rashes. No jaundice. ENDOCRINE: No chills, fevers. No excessive weight gain or loss. No polydipsia or polyuria. PSYCHIATRIC: Anxiety, depression, PTSD. Memory loss. NEUROLOGY: No change in mental status. Denies dizziness, headache. ENT: Vision unremarkable. CONSTITUTIONAL: No recent weight loss. No fever, chills, night sweats. Past Medical History Past Medical History: Asthma, Heart Failure, COPD, Deep Vein Thrombosis (DVT), Eye Disorder, Fibromyalgia, GERD/Reflux, Hyperlipidemia, Hypertension, Memory Impairment, Myocardial Infarction ([place]), Osteoarthritis (OA), Pneumonia, Seizure Disorder, Skin Disorder, Syncope, Thyroid Disorder Additional Past Medical History / Comment(s): IBS, colitis, restless legs flexed syndrome, daily migraines, Vitamin D deficiency, benign left breast mass, gastritis, short term memory loss. Vision - "sees an orange aura." BILAT CATARACTS Last seizure 09/22/2024, PT STATES THAT DR. VILLALBA IS AWARE"Legs are weak and balance is off." checked bone marrow for cancer. Pt has pressure ulcer over lower incision from surgery on 09/09/2024. States she had a blood clot in leg but not sure which leg or when Last Myocardial Infarction Date:: 2009 History of Any Multi-Drug Resistant Organisms: None Reported Past Surgical History: Back Surgery, Hysterectomy, Orthopedic Surgery Additional Past Surgical History / Comment(s): D&C, bilateral knee arthroscopy. Past Anesthesia/Blood Transfusion Reactions: No Reported Reaction Additional Past Anesthesia/Blood Transfusion Reaction / Comm: severe anxiety coming out of anesthesia,no hx blood transfusion Past Psychological History: Anxiety, Bipolar, Depression, PTSD Smoking Status: Current every day smoker Past Alcohol Use History: None Reported Past Drug Use History: Marijuana - Past Family History Father Family Medical History: Cancer Additional Family Medical History / Comment(s): Father of pancreatic cancer at the age of 62yrs. and lung cancer Mother Family Medical History: Congestive Heart Failure (CHF) Additional Family Medical History / Comment(s): Mother of CHF at the age of 60yrs. Brother(s) Additional Family Medical History / Comment(s): Patient had 1 brother that at 5 months of age. Sister(s) Family Medical History: Deep Vein Thrombosis (DVT) Additional Family Medical History / Comment(s): Patient has one sister with history of depression and bipolar. Patient has 2 half-sisters and one at age 26 from overdose. Patient does not have any children. Physical Exam General appearance: The patient is alert, oriented, appears in no acute distress. HET: Head is normocephalic and atraumatic. Conjunctiva pink. Sclera anicteric. Neck: Supple without lymphadenopathy. Trachea midline. Heart: Regular. Lungs: Equal expansion, normal respiratory effort. Abdomen: Soft, nontender, nondistended. Rectum: Patient with rectal prolapse, with erythema, swollen and firm. No active bleeding noted. Skin: No rashes. No jaundice. Extremities: Normal skin color and turgor. No pedal edema. Neurological: No focal deficits. Alert and oriented x3. 54 year old female with chronic rectal prolapse -sugar applied to site to decrease inflammation -would benefit from outpatient surgical intervention -pain control Bob Sánchez DO [facility] [phone]
[2024-11-02] MEDS ORDERED: Potassium Replacement Protocol 1 EACH MISC MISCELLANE PRN (09:12)
--- NOTE | 2024-11-02 09:36 | P.PN ---
Subjective Progress Note Date: 11/01/24 - Reason for Consult Consult date: 10/27/24 Medical management, failure of outpatient abx, previous decompression - History of Present Illness This is a pleasant 54-year-old female who presented to the emergency department and admitted under orthopedic services for failure of outpatient therapy with oral antibiotics from previous decompression with fusion and kyphoplasty of her thoracic spine that was done at the beginning of September. Patient has had a few hospitalizations and was scheduled to undergo revision with washout and patient refused surgery reporting she was not feeling well. Cultures were obtained at that time and were negative and sent on oral antibiotics per infectious disease recommending outpatient follow-up with orthopedics. Patient is back with persistent pain and failure of outpatient treatment with wound dehiscence of the area and continued drainage now agreeable to surgery and scheduled for wound revision with washout on 10/27/2024. Patient reports she follows with Dr. Ballard in the outpatient setting with a significant past medical history of asthma, heart failure, COPD, DVT, fibromyalgia, GERD, hyperlipidemia, hypertension, memory impairment with previous heart attacks, osteoarthritis, seizure disorder, thyroid disorder as well as restless legs, IBS, colitis. Patient also with significant anxiety, bipolar depression with PTSD smokes daily occasionally uses marijuana and denies any alcohol use. Patient does have a legal public guardian and reports to living with her significant other (boyfriend). Medical was consulted for medical management. 10/27/2024 Patient is seen in follow-up today currently n.p.o. she is awaiting to undergo thoracic spine intervention with Dr. Mchugh today. Patient is afebrile with no reports of chest pain or shortness of breath. Patient does continue with soft collar at this time. Awaiting operative report. Recommend follow-up labs in the a.m. and will continue to follow along with orthopedics closely. 10/28/2024 Patient is seen in follow-up in the ICU status post washout and revision of the thoracic spine. Per nursing staff after postop patient was obtunded and concerns of protecting airway and was intubated and put in ICU for close monitoring with pulmonary consulted. Patient on exam had ET tube and NG tube in her hand and had self extubated. Patient was alert and oriented able to answer questions and commands appropriately. Plans were for extubation sometime today per pulmonary as patient was doing relatively well. Patient is maintained on antibiotics and cultures were obtained and pending. White count mildly elevated although likely reactive and will follow-up on repeat labs. 10/29/2024 Patient evaluated today in the ICU currently sitting up in the chair eating lunch. Postoperative day #2 washout and revision of the thoracic spine. Hemovac remains in place. Reports pain today at about a 5/10. She is currently on 2L of oxygen via nasal cannula. Patient not having any significant complaints today. Continues on IV cefepime and IV vancomycin. Chest xray this morning shows concern for volume overload. Sodium is better at 137, BUN 7, creatinine 0.53, white blood cell count 11.7. hgb 9.6. She is 98% on 3L of oxygen. Does not appear volume overloaded. 10/30/2024 Patient evaluated today in the intensive care unit. Resting in bed. States she has been unable to have a bowel movement despite bowel regimen. Enema to be gi ngozi today. She is postoperative day #3 washout and revision of thoracic spine. Hemovac was removed accidently by the patient yesterday. She continues to have significant pain to the back although reports improved since yesterday. Labs today are showing white blood cell count 13.0, hgb 9.6, potassium 3.4, bun 6, creatinine 0.46. UA completed yesterday was not suggestive of infection. Patient remains on IV cefepime and IV vancomycin. Continues on normal saline at 50 mls/hr. Remains on oxygen via nasal cannula at 2L. 10/31/2024 Patient is seen and evaluated in follow-up currently in the ICU although is a downgrade to [facility] once a bed becomes available. Per nursing staff patient continues with confusion at times and pulling at IVs and tubing and is impulsive and currently has product safety tester at the bedside. Patient is awake and responding to questions and commands appropriately. Patient takes a number of pain medications and will adjust accordingly. Recommend limiting IV Dilaudid use given her mentation. Patient is afebrile with no reported chest pain or shortness of breath. Cultures thus far negative and patient was on antibiotics. Infectious disease consulted per orthopedics for antibiotic recommendations on discharge. Continue local wound care per orthopedics. Encourage incentive spirometer use and getting up out of the bed more frequently. 11/01/2024 Patient is seen in follow-up today hemoglobin is stable above 8 with no further bleeding noted from the rectum. Patient does have chronic history of rectal prolapse and has had previous surgeries with general surgery as well as hemorrhoids. General surgery was consulted and will be manually retracting the rectum. Otherwise patient is medically stable for discharge per orthopedics waiting on antibiotic recommendations per Bernardo. Plan is for patient to return home with home care. Patient is afebrile denies chest pain or shortness of breath. Patient continues to report significant back pain although mentation is much improved. Review of Systems Constitutional: Denied any fatigue denied any fever. Cardio vascular: denied any chest pain, palpitations Gastrointestinal: denied any nausea, vomiting, diarrhea Reports had a bowel movement yesterday Pulmonary: Denied any shortness of breath cough Neurologic denied any new focal deficits, reports of continued weakness and back pain All inpatient medications were reviewed and appropriate changes in these medications as dictated in the interval history and assessment and plan. PHYSICAL EXAMINATION: GENERAL: The patient is awake, alert and oriented x2, appears somewhat confused at times. Well developed, thin built, elderly appearing HEENT: Pupils are round and equally reacting to light. EOMI. No scleral icterus. No conjunctival pallor. Normocephalic, atraumatic. No pharyngeal erythema. No thyromegaly. CARDIOVASCULAR: S1 and S2 present. No murmurs, rubs, or gallops. Diminished PULMONARY: Diminished breath sounds bilaterally otherwise chest is clear to auscultation, no wheezing, coarse scattered rhonchi noted ABDOMEN: Soft, thin, nontender, nondistended, normoactive bowel sounds. No palpable organomegaly. MUSCULOSKELETAL: No joint swelling or deformity. EXTREMITIES: No cyanosis, clubbing, or pedal edema. NEUROLOGICAL: Gross neurological examination did not reveal any focal deficits. Diffusely weak SKIN: No rashes. Surgical dressing intact with minimal drainage. Hemovac is removed. Assessment: Ongoing back pain of the T-spine with failure of outpatient treatment on oral antibiotics, status post washout and revision of the thoracic spine with fusion T7-T11 10/27/2024 Acute hypoxemic respiratory failure; self extubated on 10/28/2024 History of recent C2-T7 decompression, fusion, fracture reduction with realignment of the T8 fracture Wound dehiscence of that previous surgical site due to pressure ulceration History of noncompliance Hypokalemia, improved after replacement Significant history of anxiety/depression/bipolar/PTSD Hypertension history Hyperlipidemia history Asthma/COPD history, not in exacerbation Continued ongoing nicotine abuse History of previous DVT History of GERD History of fibromyalgia History of memory impairment has a legal public guardian GI prophylaxis DVT prophylaxis Full code Plan: Patient was admitted under orthopedic services with failure of outpatient treatment. Patient underwent revision with washout 10/27/2024 Patient is currently in the ICU for close monitoring and awaiting downgrade to [facility] today Home medications reviewed and resumed as appropriate. Recommend adjusting medications as patient takes a number of high-dose pain medications and [employer] agents. Patient is somewhat confused and lethargic at times and will adjust medications accordingly. Patient experienced some rectal bleeding most likely secondary to chronic rectal prolapse and hemorrhoids. General surgery consulted. Hemoglobin is stable above 8. Continue pain management and recommend limiting IV narcotics Recommend PT/OT therapy evaluation postsurgical Encourage incentive spirometer use at least 10 times every hour while awake Nicotine patch as needed Continue as needed as well as scheduled bowel regimen. Patient had a bowel movement yesterday Will follow-up with repeat labs, replace electrolytes per protocol We will continue to follow with orthopedics during hospitalization. Thank you kindly for this consultation. The impression and plan of care has been dictated by Kristina Wells, Nurse Practitioner as directed. Dr. Jayson MD I have performed a history and examination and MDM of this patient, discussed the same with the dictator, and agree with the dictator's assessment and plan as written ,documented as a scribe. Based on total visit time, I have performed more than 50% of the visit. Objective - Vital Signs Vital signs: Vital Signs Temp 97.5 F L 11/01/24 06:48 Pulse 92 11/01/24 08:52 Resp 16 11/01/24 06:48 BP 110/73 11/01/24 06:48 Pulse Ox 93 L 11/01/24 06:48 FiO2 40 10/28/24 09:00 Intake & Output 10/31/24 11/01/24 11/01/24 18:59 06:59 18:59 Intake Total 1090 Output Total 675 600 Balance 415 -600 Weight 52.6 kg Intake: IV 10 Invasive Line 6 10 Intake, IV Titration 600 Amount Sodium Chloride 0.9% 1, 600 000 ml @ 50 mls/hr IV . Q20H [facility] Rx#:[id number] Oral 480 Output: Urine 675 600 Other: Voiding Method Indwelling Catheter Indwelling Catheter # Bowel Movements 1 ABP, PAP, CO, CI - Last Documented Arterial Blood Pressure 144/79 - Labs CBC & Chem 7: 11/01/24 03:22 11/01/24 03:22 Labs: Abnormal Lab Results - Last 24 Hours (Table) 11/01/24 11/01/24 11/01/24 Range/Units 01:47 03:22 03:22 WBC 11.0 H (3.8-10.6) k/uL RBC 2.78 L 2.41 L (3.80-5.40) m/uL Hgb 8.4 L 7.6 L (11.4-16.0) gm/dL Hct 29.7 L 25.9 L (34.0-46.0) % MCV 106.8 H 107.5 H (80.0-100.0) fL MCHC 28.4 L 29.2 L (31.0-37.0) g/dL Neutrophils # 8.1 H 8.0 H (1.3-7.7) k/uL Lymphocytes # 0.9 L (1.0-4.8) k/uL Monocytes # 1.1 H (0-1.0) k/uL Macrocytosis Marked A Sodium 134 L (137-145) mmol/L Potassium 3.2 L (3.5-5.1) mmol/L BUN 6 L (7-17) mg/dL Creatinine 0.42 L (0.52-1.04) mg/dL Glucose 108 H (74-99) mg/dL Microbiology - Last 24 Hours (Table) 10/27/24 17:00 Anaerobic Culture - Final Other - Other 10/27/24 17:00 Gram Stain - Final Other - Other Wound Culture - Final
[2024-11-02] MEDS ORDERED: SAPHRIS 10 MG SUBLINGUAL SCH (09:58)
[2024-11-02] MEDS ORDERED: POTASSIUM CHLORIDE ER 20 MEQ TAB.ER PO SCH (10:00)
[2024-11-02] MEDS: SAPHRIS 10 MG SUBLINGUAL SCH (10:20)
[2024-11-02] MEDS: ASENAPINE MALEATE 10 MG SUBLINGUAL SCH (10:26)
[2024-11-02 10:52] LABS: Basophils # (A) 0.03 X 10*3/uL (0.00-0.10); Basophils % (A) 0.3 %; Eosinophils # (A) 0.19 X 10*3/uL (0.04-0.35); Eosinophils % (A) 1.6 %; HCT 24.8 % (37.2-46.3); HGB 7.5 g/dL (12.0-15.0); Lymphocytes # (A) 0.94 X 10*3/uL (0.90-5.00); Lymphocytes % (A) 8.1 %; MCH 31.3 pg (27.0-32.0); MCHC 30.2 g/dL (32.0-37.0); MCV 103.3 FL (80.0-97.0); Mean Platelet Volume 9.6 FL (9.5-12.2); Monocytes # (A) 1.49 X 10*3/uL (0.20-1.00); Monocytes % (A) 12.8 %; NRBC Per 100 WBC 0 X 10*3/uL (0.00-0.01); Neutrophils # (A) 8.94 X 10*3/uL (1.80-7.70); Neutrophils % (A) 76.6 %; Platelet Count 413 X 10*3/uL (140-440); RDW 14.9 % (11.5-14.5); WBC 11.66 X 10*3/uL (4.50-10.00)
[2024-11-02 10:53] LABS: Blood Urea Nitrogen 4.8 mg/dL (9.0-27.0); Chloride 103 mmol/L (96-109); Glucose 93 mg/dL (70-110); Potassium 3.7 mmol/L (3.5-5.5); Sodium 137 mmol/L (135-145)
[2024-11-02 10:54] LABS: Calcium 8.3 mg/dL (8.7-10.3); Carbon Dioxide 24.5 mmol/L (21.6-31.8)
--- NOTE | 2024-11-02 13:39 | P.DS ---
Providers Date of admission: 10/25/24 13:47 Expected date of discharge: 11/02/24 Attending physician: Leonel Mchugh DO Consults: 10/25/24 13:53 Consult Physician Urgent Consulting Provider: Dustin Martinez Consult Reason/Comments: Medical management Do you want consulting provider notified?: Yes 10/28/24 00:33 Consult Physician Routine Consulting Provider: Joan Dumont Consult Reason/Comments: ICU management Do you want consulting provider notified?: Already Contacted 10/31/24 08:53 Consult Physician Routine Consulting Provider: Chevy Chang Consult Reason/Comments: ID Management s/p I&D spine incision wound dehis cence Do you want consulting provider notified?: Yes 11/01/24 10:05 Consult Physician Routine Consulting Provider: Bob Sánchez Consult Reason/Comments: Rectal prolapse with bleeding Do you want consulting provider notified?: Yes Primary care physician: Harpreet Ballard [facility] Course: Date of admission: 10/27/2024 Date of discharge: 11/02/2024 Admission diagnosis: WOUND DEHISCENCE THORACIC SPINE; T8 BURST COMPRESSION FRACTURE WITH KYPHOTIC DEFORMITY; S/P MULTIPLE FRACTURE SURGERIES AND REVISION; THORACIC BACK PAIN Discharge diagnosis: Same Attending physician: Dr. Mchugh Surgical procedures: open treatment T8 fracture; irrigation and excisional debridement of thoracic spine wound; posterior lateral instrumented fusion T7- T11 Brief history: Patient is a 54-year-old female with a history of wound dehiscence thoracic spine; T8 burst compression fracture with kyphotic deformity; status post multiple fracture surgeries and revision. At this point patient has failed conservative treatment measures and has opted to proceed with a elective open treatment T8 fracture; irrigation excisional debridement of thoracic spine wound; posterior lateral instrumented fusion T7-T11. Hospital course: Details of patient's surgery can be found in operative report. Patient tolerated the procedure well and was subsequently transported to orthopedic floor. Patient's orthopeidc and medical care was provided daily. Patient had daily laboratory tests performed for evaluation of overall blood counts. Patient had daily physical therapy to include strengthening range of motion as well as education with walker ambulation. Patient was noted to have a relatively uneventful postoperative course. Patient reported satisfactory pain control with oral pain medications by postoperative day 6. Patient showed satisfactory progress with physical therapy. Patient moved steadily through the program and had no difficulty meeting the goals by postoperative day 6. Given patient's otherwise satisfactory course and having met physical therapy goals, plan is to discharge patient home on postoperative day 6. Discharge condition/disposition: Patient will be discharged home in stable condition. Discharge medications: Instructions are given on resumption of patient's normal daily medications per primary care recommendation, in addition patient will be prescribed Glady; senna; Duricef; Flexeril. Spine Discharge and Recovery Instructions Date of Surgery: 10/27/2024 Diagnosis: WOUND DEHISCENCE THORACIC SPINE; T8 BURST COMPRESSION FRACTURE WITH KYPHOTIC DEFORMITY; S/P MULTIPLE FRACTURE SURGERIES AND REVISION; THORACIC BACK PAIN Procedure: open treatment T8 fracture; irrigation and excisional debridement of thoracic spine wound; posterior lateral instrumented fusion T7-T11 Medications: See medication list All medication refills should be obtained through your primary care doctor or your clinic spine surgeon. Please discuss prescription refills at your follow up appointment. Do not call the hospital for medication refills. Dressing: Leave your dressing in place for a total of 5 days post operatively. Then you may remove your dressing and leave open to air. Keep the area clean and if not able to keep area clean, then cover with sterile gauze and tape. Showering: You may shower 3 days after your procedure allowing soap and water to run over incision. Do not scrub. Do not soak. Blot dry. Follow up: Please confirm a follow up appointment with your surgeon 3 weeks post operatively. Please make an appointment to follow up with your PCP in 1-2 weeks after surgery for evaluation '3 phase, 3-week plan' POST OP WEEKS 1-3 1. Lifting/carrying/pushing/pulling limited to less than 5 pounds. 2. Do not sit for longer than 15 minutes at one time. Get up and walk around. Prolonged sitting is NOT advised. If you lay down, see if you can tolerate laying down on you front (belly side) 3. Walk for periods of 15 minutes = 1 mile but no longer; do it multiple times times each day. 4. Ice your low back after activity. POST OP WEEKS 3-6 1. Lifting limited to less than 20 pounds. 2. Do not sit for longer than 30 minutes at a time. Frequently change positions. Use a sit-to stand workstation or take frequent breaks from sitting if you have returned to work. 3. Walk for 30 minutes each day. If possible, do these three or more times a day POST OP WEEKS 6+ At your 6-week appointment we will give you a physical therapy referral to focus on a core stabilization and strengthening program. You should also work on leg & buttock strengthening, hamstring & quadriceps stretching, and continue a low impact aerobic activity program such as swimming, walking, or riding a stationary bicycle. During the initial 6 weeks after your surgery, you are at the highest risk of re-injuring your spine. You should generally avoid BLT's (bending, lifting and twisting combination motions) and follow the above guidelines to reduce the chance of reinjury. You can anticipate post op appointments in our office at approximately 3 weeks and 6 weeks after your surgery. INCISION CARE: If your incision is not draining you do NOT need to cover it with a dressing. Keep your incision clean, dry and intact. In most cases, we apply skin glue, garland or sutures to the incision at the time of surgery. This will be like a crust or have the appearance of a scab and will fall off in time on its own. The stitches or garland need to be removed at 3 weeks post op appointment. You may begin to shower 3 days after surgery (this allows the glue to amador well). However, please avoid scrubbing the incision site or peeling off any of the skin glue. This will ensure optimal healing of your incision. Also, during this time avoid soaking the incision area in water - this includes swimming pools, hot tubs or baths. No ointments, lotions or oils on the incision until your surgeon allows. Leave garland, sutures or glue in place. Neurological dysfunction that comes on suddenly can also be a sign of a stroke. Below some common symptoms of a stroke are listed: B - balance difficulty such as sudden onset walking or leaning to one side - NEW E - eye problem such as sudden double vision or trouble seeing on one side - NEW F - Facial weakness or numbness on one side - NEW A - Arm or leg weakness or numbness on one side - NEW S - Slurred speech or difficulty with word finding - NEW T - Time is BRAIN! Call 911 as soon as you recognize these symptoms Diet: Consume a regular diet rich in vegetables and lean protein such as chicken or fish. You should consume in a ratio of approximately 20% fats|40% carbohydrates|40%protein. Vegetables, sweet potatoes, brown rice or quinoa are examples of good carbohydrates. Chips, white bread, cookies and sweets/sugar are examples of bad carbohydrates. Limit your bad carbs, go wild with good carbs. "Life's Simple 7" Guidelines as per [place] [employer] These will help you reclaim your life after surgery and loading machine operator helper in your recovery, keeping in mind your restrictions. (1) Get Active. Physical activity can help people lose weight, control high blood pressure and cholesterol, feel emotionally better, and sleep better. (2) Control Cholesterol. Avoid a diet high in saturated fat, trans fat, & cholesterol. Limit whole milk & cream, ice cream, butter, egg yolks, processed meats (like sausage and hot dogs), and fatty meats. Choose healthy foods that are low in saturated fat, trans fat and cholesterol which include: Fruits and vegetables, fiber rich grain products (like whole grain pasta and brown rice), lean meat such as chicken, fish, nuts, seeds, and legumes. (3) Eat Better. Eat small portions. Shop at the grocery with a list and do not stray from it. Tips for a healthy diet include: Limit sodium intake to less than 1500mg daily, avoid prepackaged, processed, and fast foods, choose a diet rich in fruits, vegetables, and whole grain, high fiber foods, and limit saturated & cholesterol in your diet. (4) Manage Blood Pressure. If you have high blood pressure, you should have a cuff at home so that you can check your blood pressure regularly. Be sure you have a good cuff. An arm one is generally better than a wrist one. Bring the cuff to a doctor's appointment to validate that the measurements that your cuff are taking are accurate. Take your blood pressure twice daily when you are sitting down and relaxing. Record the numbers in a log and bring this log with you to your doctors' appointments. (5) Lose Weight if your BMI is above 25. A healthy BMI is between 19-25. To calculate Your BMI, you may use a Standard BMI Calculator on the NIH BMI website: <www.nhlbi.nih.gov/guidelines/obesity/BMI/bmicalc.htm>. Weigh oneself daily. If you are overweight, set a goal to lose weight. A pound a week loss if needed is a good target. (6) Reduce Blood Sugar. Limit foods and liquids with "added sugars." (Added sugars include sucrose, fructose, glucose, maltose, dextrose, high fructose corn syrup, corn syrup, concentrated fruit juice and honey). (7) Stop Smoking. If you smoke, quitting smoking is one of the best things that you can do for your health. Smoking increases your risk of heart attack, stroke, and peripheral vascular disease, which is a build-up of plaque in your arteries. Please discard all the cigarettes and lighters in your house. Have a plan for what you will do when you have the urge to smoke. Direct and second- hand smoke shortens your life as well as the lives of your family, friends and others around you. For your health and the health of those around you, please consider quitting! Proper Bending Body Mechanics: Maintain a wide stance with one foot slightly in front of the other. Keep your back straight. Bend utilizing the strength in your hips and knees. Do not bend at the waist. Maintain the lifted object at your waist-level close to your body. Avoid lifting weight that causes immediately pain or pain anywhere in the body afterwards. Smoking/Nicotine If there was ever one thing that you could do to increase your overall health, decrease your risk of cardiovascular problems by about 39% the second you make the choice, it is to STOP SMOKING. Your body's most instant gratification is the second you stop smoking. We have all heard the studies, read the articles but it is true, smoking is extremely bad for your overall health, and moreover it is detrimental to your bone health. Nicotine, IN ANY FORM, kills bone cells, prevents your body from healing fractures, and significantly prolongs healing after surgery. In spine surgery specifically, it increases your risk of not healing your bones to create a fusion and increases your risk of having a revision surgery due to this up to 60%. I know it is hard. I know it feels impossible. But there are ways. Take c ontrol of your life. We are here to help you through it. And when you are ready, ask us and we can direct you to help if you desire. Use the START Plan to Quit Smoking (please visit the [employer] [place] [employer]org website listed below for more information): S = Set a quit date. Choose a date within the next 2 weeks, so you have enough time to prepare without losing your motivation to quit. If you mainly smoke at work, quit on the weekend, so you have a few days to adjust to the change. T = Tell family, friends, and co-workers that you plan to quit. Let your friends and family in on your plan to quit smoking and tell them you need their support and encouragement to stop. Look for a quit gabrielle who wants to stop smoking as well. You can help each other get through the rough times. A = Anticipate and plan for the challenges you'll face while quitting. Most people who begin smoking again do so within the first 3 months. You can help yourself make it through by preparing ahead for common challenges, such as nicotine withdrawal and cigarette cravings. R = Remove cigarettes and other tobacco products from your home, car, and work. Throw away all your cigarettes (no emergency pack!), lighters, ashtrays, and matches. Wash your clothes and freshen up anything that smells like smoke. Shampoo your car, clean your drapes and carpet, and steam your furniture. T = Talk to your doctor about getting help to quit. Your doctor can prescribe medication to help with withdrawal and suggest other alternatives. If you can't see a doctor, you can get many products over the counter at your local pharmacy or grocery store, including the nicotine patch, nicotine lozenges, and nicotine gum. Resources for Quitting Smoking: <https://www.[place].gov/documents/[facility]/Qu it_Tobacco_Resources_for_patients_313480_7.pdf> Supplementation: Take recommended dosages of Vitamin D and Calcium to help fortify your bones and help them to heal. See your health maintenance packet for dosages and recommended levels. DVT/VTE prophylaxis: You will be given compression stockings from the hospital. Wear these daily for the first two weeks after surgery. You may take them off at night. You may be prescribed a medication to help thin your blood. Take this as directed. If you are not prescribed this medication, early and frequent ambulation has been shown to be the best prophylaxis to deep vein thrombosis and sequelae related to this event. Assessment: WOUND DEHISCENCE THORACIC SPINE; T8 BURST COMPRESSION FRACTURE WITH KYPHOTIC DEFORMITY; S/P MULTIPLE FRACTURE SURGERIES AND REVISION; THORACIC BACK PAIN Procedures: open treatment T8 fracture; irrigation and excisional debridement of thoracic spine wound; posterior lateral instrumented fusion T7-T11 Patient Condition at Discharge: Good Plan - Discharge Summary Discharge Rx Participant: Yes New Discharge Prescriptions: New cefaDROXiL [Duricef] 500 mg PO Q12HR 5 Days #10 cap Cyclobenzaprine [Flexeril] 10 mg PO TID #21 tab HYDROcodone/APAP 10-325MG [Glady 10-325] 1 tab PO Q6HR PRN #28 tab PRN Reason: Pain Sennosides/Docusate Sodium [Senna Plus 8.6-50 mg Softgel] 1 each PO DAILY #20 capsule Continue Gabapentin 800 mg PO TID #90 tab No Action Sertraline [Zoloft] 200 mg PO DAILY Asenapine Maleate [Saphris] 10 mg SUBLINGUAL BID Pantoprazole Sodium [Protonix] 40 mg PO BID Albuterol Sulfate [Proair Hfa] 2 puff INHALATION RT-QID PRN PRN Reason: Shortness Of Breath Prazosin HCl [Minipress] 2 mg PO BID@1700,2100 Fluticasone/Umeclidin/Vilanter [Trelegy Ellipta 100-62.5-25] 1 puff INHALATION RT-DAILY Brivaracetam [Briviact] 100 mg PO BID Budesonide [Pulmicort] 0.5 mg INHALATION RT-BID PRN PRN Reason: Shortness Of Breath Butalb/Acetaminophen/Caffeine [Fioricet 50-325-40] 1 tab PO Q6H PRN PRN Reason: Migraine Headache Fluticasone Nasal [place] [Flonase Nasal [place]] 1 spray EA NOSTRIL DAILY Ipratropium-Albuterol Nebulize [Duoneb 0.5 mg-3 mg/3 ml Soln] 3 ml INHALATION RT-QID Propranolol [Inderal] 20 mg PO BID Cholecalciferol (Vitamin D3) [Vitamin D3 (50 Mcg = 2000 Iu)] 50 mcg PO DAILY HYDROcodone/APAP 10-325MG [Glady 10-325] 1 tab PO Q6H PRN PRN Reason: Pain Furosemide [Lasix] 40 mg PO DAILY Cyclobenzaprine [Flexeril] 10 mg PO BID Acetaminophen Tab [Tylenol Tab] 500 mg PO Q6HR PRN PRN Reason: Mild Pain (Scale 1 To 3) Ibuprofen [Motrin] 800 mg PO Q8H PRN PRN Reason: Moderate Pain (Scale 4 To 6) cloBAZam [Sympazan] 10 mg PO BID Topiramate [Trokendi Xr] 100 mg PO DAILY hydrOXYzine pamoate [Vistaril] 50 mg PO TID PRN PRN Reason: Anxiety rOPINIRole HCL [Requip] 2 mg PO BID Cetirizine HCl [Zyrtec] 10 mg PO DAILY Levothyroxine Sodium [Synthroid] 88 mcg PO DAILY Acetaminophen-Codeine 300-30mg [Tylenol w/codeine #3] 1 tab PO TID PRN PRN Reason: Pain Montelukast [Singulair] 10 mg PO HS rOPINIRole HCL [Requip] 1 mg PO BID busPIRone HCL 15 mg PO TID Albuterol Nebulized [Ventolin Nebulized] 2.5 mg INHALATION RT-BID Multivitamins, Thera [Multivitamin (formulary)] 1 tab PO DAILY Discharge Medication List Asenapine Maleate [Saphris] 10 mg SUBLINGUAL BID 04/30/17 [History] Sertraline [Zoloft] 200 mg PO DAILY 04/30/17 [History] Pantoprazole Sodium [Protonix] 40 mg PO BID 01/07/19 [History] Topiramate [Trokendi Xr] 100 mg PO DAILY 04/15/21 [History] cloBAZam [Sympazan] 10 mg PO BID 04/15/21 [History] hydrOXYzine pamoate [Vistaril] 50 mg PO TID PRN 04/16/21 [History] Albuterol Sulfate [Proair Hfa] 2 puff INHALATION RT-QID PRN 05/10/21 [History] Prazosin HCl [Minipress] 2 mg PO BID@1700,2100 05/10/21 [History] rOPINIRole HCL [Requip] 2 mg PO BID 05/10/21 [History] Fluticasone/Umeclidin/Vilanter [Trelegy Ellipta 100-62.5-25] 1 puff INHALATION RT-DAILY 12/10/22 [History] Brivaracetam [Briviact] 100 mg PO BID 07/10/23 [History] Budesonide [Pulmicort] 0.5 mg INHALATION RT-BID PRN 07/27/23 [History] Butalb/Acetaminophen/Caffeine [Fioricet 50-325-40] 1 tab PO Q6H PRN 07/27/23 [History] Cetirizine HCl [Zyrtec] 10 mg PO DAILY 07/27/23 [History] Fluticasone Nasal [place] [Flonase Nasal [place]] 1 spray EA NOSTRIL DAILY 07/27/23 [History] Ipratropium-Albuterol Nebulize [Duoneb 0.5 mg-3 mg/3 ml Soln] 3 ml INHALATION RT-QID 07/27/23 [History] Levothyroxine Sodium [Synthroid] 88 mcg PO DAILY 07/27/23 [History] Propranolol [Inderal] 20 mg PO BID 07/27/23 [History] Acetaminophen-Codeine 300-30mg [Tylenol w/codeine #3] 1 tab PO TID PRN 09/05/24 [History] Gabapentin 800 mg PO TID #90 tab 09/13/24 [Rx] Acetaminophen Tab [Tylenol Tab] 500 mg PO Q6HR PRN 10/25/24 [History] Albuterol Nebulized [Ventolin Nebulized] 2.5 mg INHALATION RT-BID 10/25/24 [History] Cholecalciferol (Vitamin D3) [Vitamin D3 (50 Mcg = 2000 Iu)] 50 mcg PO DAILY 10/25/24 [History] Cyclobenzaprine [Flexeril] 10 mg PO BID 10/25/24 [History] Furosemide [Lasix] 40 mg PO DAILY 10/25/24 [History] HYDROcodone/APAP 10-325MG [Glady 10-325] 1 tab PO Q6H PRN 10/25/24 [History] Ibuprofen [Motrin] 800 mg PO Q8H PRN 10/25/24 [History] Montelukast [Singulair] 10 mg PO HS 10/25/24 [History] Multivitamins, Thera [Multivitamin (formulary)] 1 tab PO DAILY 10/25/24 [History] busPIRone HCL 15 mg PO TID 10/25/24 [History] rOPINIRole HCL [Requip] 1 mg PO BID 10/25/24 [History] Cyclobenzaprine [Flexeril] 10 mg PO TID #21 tab 11/02/24 [Rx] HYDROcodone/APAP 10-325MG [Glady 10-325] 1 tab PO Q6HR PRN #28 tab 11/02/24 [Rx] Sennosides/Docusate Sodium [Senna Plus 8.6-50 mg Softgel] 1 each PO DAILY #20 capsule 11/02/24 [Rx] cefaDROXiL [Duricef] 500 mg PO Q12HR 5 Days #10 cap 11/02/24 [Rx] Follow up Appointment(s)/Referral(s): [facility], [NON-STAFF] - 1-2 Days ([facility] will call you to schedule your in home nursing and physical therapy visits. ) Harpreet Ballard [Primary Care Provider] - 1-2 days Leonel Mchugh DO [Doctor of Osteopathic Medicine] - 2 Weeks Activity/Diet/Wound Care/Special Instructions: Spine Discharge and Recovery Instructions Date of Surgery: 10/27/2024 Diagnosis: WOUND DEHISCENCE THORACIC SPINE; T8 BURST COMPRESSION FRACTURE WITH KYPHOTIC DEFORMITY; S/P MULTIPLE FRACTURE SURGERIES AND REVISION; THORACIC BACK PAIN Procedure: open treatment T8 fracture; irrigation and excisional debridement of thoracic spine wound; posterior lateral instrumented fusion T7-T11 Medications: See medication list All medication refills should be obtained through your primary care doctor or your clinic spine surgeon. Please discuss prescription refills at your follow up appointment. Do not call the hospital for medication refills. Dressing: Leave your dressing in place for a total of 5 days post operatively. Then you may remove your dressing and leave open to air. Keep the area clean and if not able to keep area clean, then cover with sterile gauze and tape. Showering: You may shower 3 days after your procedure allowing soap and water to run over incision. Do not scrub. Do not soak. Blot dry. Follow up: Please confirm a follow up appointment with your surgeon 3 weeks post operatively. Please make an appointment to follow up with your PCP in 1-2 weeks after surgery for evaluation '3 phase, 3-week plan' POST OP WEEKS 1-3 1. Lifting/carrying/pushing/pulling limited to less than 5 pounds. 2. Do not sit for longer than 15 minutes at one time. Get up and walk around. Prolonged sitting is NOT advised. If you lay down, see if you can tolerate laying down on you front (belly side) 3. Walk for periods of 15 minutes = 1 mile but no longer; do it multiple times times each day. 4. Ice your low back after activity. POST OP WEEKS 3-6 1. Lifting limited to less than 20 pounds. 2. Do not sit for longer than 30 minutes at a time. Frequently change positions. Use a sit-to stand workstation or take frequent breaks from sitting if you have returned to work. 3. Walk for 30 minutes each day. If possible, do these three or more times a day POST OP WEEKS 6+ At your 6-week appointment we will give you a physical therapy referral to focus on a core stabilization and strengthening program. You should also work on leg & buttock strengthening, hamstring & quadriceps stretching, and continue a low impact aerobic activity program such as swimming, walking, or riding a stationary bicycle. During the initial 6 weeks after your surgery, you are at the highest risk of re-injuring your spine. You should generally avoid BLT's (bending, lifting and twisting combination motions) and follow the above guidelines to reduce the chance of reinjury. You can anticipate post op appointments in our office at approximately 3 weeks and 6 weeks after your surgery. INCISION CARE: If your incision is not draining you do NOT need to cover it with a dressing. Keep your incision clean, dry and intact. In most cases, we apply skin glue, garland or sutures to the incision at the time of surgery. This will be like a crust or have the appearance of a scab and will fall off in time on its own. The stitches or garland need to be removed at 3 weeks post op appointment. You may begin to shower 3 days after surgery (this allows the glue to amador well). However, please avoid scrubbing the incision site or peeling off any of the skin glue. This will ensure optimal healing of your incision. Also, during this time avoid soaking the incision area in water - this includes swimming pools, hot tubs or baths. No ointments, lotions or oils on the incision until your surgeon allows. Leave garland, sutures or glue in place. Neurological dysfunction that comes on suddenly can also be a sign of a stroke. Below some common symptoms of a stroke are listed: B - balance difficulty such as sudden onset walking or leaning to one side - NEW E - eye problem such as sudden double vision or trouble seeing on one side - NEW F - Facial weakness or numbness on one side - NEW A - Arm or leg weakness or numbness on one side - NEW S - Slurred speech or difficulty with word finding - NEW T - Time is BRAIN! Call 911 as soon as you recognize these symptoms Diet: Consume a regular diet rich in vegetables and lean protein such as chicken or fish. You should consume in a ratio of approximately 20% fats|40% carbohydrates|40%protein. Vegetables, sweet potatoes, brown rice or quinoa are examples of good carbohydrates. Chips, white bread, cookies and sweets/sugar are examples of bad carbohydrates. Limit your bad carbs, go wild with good carbs. "Life's Simple 7" Guidelines as per [place] [employer] These will help you reclaim your life after surgery and loading machine operator helper in your recovery, keeping in mind your restrictions. (1) Get Active. Physical activity can help people lose weight, control high blood pressure and cholesterol, feel emotionally better, and sleep better. (2) Control Cholesterol. Avoid a diet high in saturated fat, trans fat, & cholesterol. Limit whole milk & cream, ice cream, butter, egg yolks, processed meats (like sausage and hot dogs), and fatty meats. Choose healthy foods that are low in saturated fat, trans fat and cholesterol which include: Fruits and vegetables, fiber rich grain products (like whole gr ain pasta and brown rice), lean meat such as chicken, fish, nuts, seeds, and legumes. (3) Eat Better. Eat small portions. Shop at the grocery with a list and do not stray from it. Tips for a healthy diet include: Limit sodium intake to less than 1500mg daily, avoid prepackaged, processed, and fast foods, choose a diet rich in fruits, vegetables, and whole grain, high fiber foods, and limit saturated & cholesterol in your diet. (4) Manage Blood Pressure. If you have high blood pressure, you should have a cuff at home so that you can check your blood pressure regularly. Be sure you have a good cuff. An arm one is generally better than a wrist one. Bring the cuff to a doctor's appointment to validate that the measurements that your cuff are taking are accurate. Take your blood pressure twice daily when you are sitting down and relaxing. Record the numbers in a log and bring this log with you to your doctors' appointments. (5) Lose Weight if your BMI is above 25. A healthy BMI is between 19-25. To calculate Your BMI, you may use a Standard BMI Calculator on the NIH BMI website: <www.nhlbi.nih.gov/guidelines/obesity/BMI/bmicalc.htm>. Weigh oneself daily. If you are overweight, set a goal to lose weight. A pound a week loss if needed is a good target. (6) Reduce Blood Sugar. Limit foods and liquids with "added sugars." (Added sugars include sucrose, fructose, glucose, maltose, dextrose, high fructose corn syrup, corn syrup, concentrated fruit juice and honey). (7) Stop Smoking. If you smoke, quitting smoking is one of the best things that you can do for your health. Smoking increases your risk of heart attack, stroke, and peripheral vascular disease, which is a build-up of plaque in your arteries. Please discard all the cigarettes and lighters in your house. Have a plan for what you will do when you have the urge to smoke. Direct and second- hand smoke shortens your life as well as the lives of your family, friends and others around you. For your health and the health of those around you, please consider quitting! Proper Bending Body Mechanics: Maintain a wide stance with one foot slightly in front of the other. Keep your back straight. Bend utilizing the strength in your hips and knees. Do not bend at the waist. Maintain the lifted object at your waist-level close to your body. Avoid lifting weight that causes immediately pain or pain anywhere in the body afterwards. Smoking/Nicotine If there was ever one thing that you could do to increase your overall health, decrease your risk of cardiovascular problems by about 39% the second you make the choice, it is to STOP SMOKING. Your body's most instant gratification is the second you stop smoking. We have all heard the studies, read the articles but it is true, smoking is extremely bad for your overall health, and moreover it is detrimental to your bone health. Nicotine, IN ANY FORM, kills bone cells, prevents your body from healing fractures, and significantly prolongs healing after surgery. In spine surgery specifically, it increases your risk of not healing your bones to create a fusion and increases your risk of having a revision surgery due to this up to 60%. I know it is hard. I know it feels impossible. But there are ways. Take control of your life. We are here to help you through it. And when you are ready, ask us and we can direct you to help if you desire. Use the START Plan to Quit Smoking (please visit the Helpguide.org website listed below for more information): S = Set a quit date. Choose a date within the next 2 weeks, so you have enough time to prepare without losing your motivation to quit. If you mainly smoke at work, quit on the weekend, so you have a few days to adjust to the change. T = Tell family, friends, and co-workers that you plan to quit. Let your friends and family in on your plan to quit smoking and tell them you need their support and encouragement to stop. Look for a quit gabrielle who wants to stop smoking as well. You can help each other get through the rough times. A = Anticipate and plan for the challenges you'll face while quitting. Most people who begin smoking again do so within the first 3 months. You can help yourself make it through by preparing ahead for common challenges, such as nicotine withdrawal and cigarette cravings. R = Remove cigarettes and other tobacco products from your home, car, and work. Throw away all your cigarettes (no emergency pack!), lighters, ashtrays, and matches. Wash your clothes and freshen up anything that smells like smoke. Shampoo your car, clean your drapes and carpet, and steam your furniture. T = Talk to your doctor about getting help to quit. Your doctor can prescribe medication to help with withdrawal and suggest other alternatives. If you can't see a doctor, you can get many products over the counter at your local pharmacy or grocery store, including the nicotine patch, nicotine lozenges, and nicotine gum. Resources for Quitting Smoking: <https://www.[place].gov/documents/[facility]/Quit_Tobacco_Resources_for_patients_313 480_7.pdf> Supplementation: Take recommended dosages of Vitamin D and Calcium to help fortify your bones and help them to heal. See your health maintenance packet for dosages and recommended levels. DVT/VTE prophylaxis: You will be given compression stockings from the hospital. Wear these daily for the first two weeks after surgery. You may take them off at night. You may be prescribed a medication to help thin your blood. Take this as directed. If you are not prescribed this medication, early and frequent ambulation has been shown to be the best prophylaxis to deep vein thrombosis and sequelae related to this event.
--- NOTE | 2024-11-02 13:41 | P.PN ---
Subjective Progress Note Date: 11/02/24 Principal diagnosis: 1. WOUND DEHISCENCE THORACIC SPINE 2. T8 BURST COMPRESSION FRACTURE WITH KYPHOTIC DEFORMITY 3. S/P MULTIPLE FRACTURE SURGERIES AND REVISION 4. THORACIC BACK PAIN 5. COMPLEX MEDICAL PATIENT Patient seen sitting up in chair on 4 S. with dressing present over lumbar spine. Patient says she is having oain in her buttocks at this time, but it is better controlled than it was yesterday. Was found to have rectal prolapse. General surgery followig closely. Infectious disease following. Patient says she did get up with therapy this morning and walked around the room using walker and did fairly well. Patient denies any other issues at this time. Objective - Vital Signs Vital signs: Vital Signs Temp 97.9 F 11/02/24 06:54 Pulse 80 11/02/24 09:15 Resp 18 11/02/24 06:54 BP 143/86 11/02/24 06:54 Pulse Ox 90 L 11/02/24 06:54 FiO2 40 10/28/24 09:00 Intake & Output 11/01/24 11/02/24 11/02/24 18:59 06:59 18:59 Output Total 2200 Balance -2200 Output: Urine 2200 Other: Voiding Method Indwelling Catheter Indwelling Catheter ABP, PAP, CO, CI - Last Documented Arterial Blood Pressure 144/79 - Exam Dressing CDI. Sensation is equal, symmetric, bilat intact throughout the upper and lower extremities on exam. Patient does have tenderness palpation over the incision. Nontender on rest of exam. Patient does have good range of motion on exam. 4/5 in all major motor groups in bilateral upper and lower extremities. Radial pulse intact, 2+ bilaterally. Negative Homans bilaterally. Cap refill under 3 seconds in digits of upper extremities. Negative clonus bilaterally. Negative Suhas bilaterally. - Labs CBC & Chem 7: 11/02/24 07:05 11/02/24 07:05 Labs: Abnormal Lab Results - Last 24 Hours (Table) 11/02/24 11/02/24 Range/Units 07:05 07:05 WBC 11.66 H (4.50-10.00) X 10*3/uL RBC 2.40 L (4.10-5.20) X 10*6/uL Hgb 7.5 L (12.0-15.0) g/dL Hct 24.8 L (37.2-46.3) % MCV 103.3 H (80.0-97.0) FL MCHC 30.2 L (32.0-37.0) g/dL RDW 14.9 H (11.5-14.5) % Immature Gran # 0.07 H (0.00-0.04) X 10*3/uL Neutrophils # 8.94 H (1.80-7.70) X 10*3/uL Monocytes # 1.49 H (0.20-1.00) X 10*3/uL BUN 4.8 L (9.0-27.0) mg/dL Creatinine 0.4 L (0.6-1.5) mg/dL Calcium 8.3 L (8.7-10.3) mg/dL Microbiology - Last 24 Hours (Table) 10/27/24 16:54 Anaerobic Culture - Final Other - Other Assessment and Plan Assessment: 1. WOUND DEHISCENCE THORACIC SPINE; T8 BURST COMPRESSION FRACTURE WITH KYPHOTIC DEFORMITY; S/P MULTIPLE FRACTURE SURGERIES AND REVISION; THORACIC BACK PAIN - Postop day 6 status post open treatment T8 fracture; irrigation and excisional debridement of thoracic spine wound; posterior lateral instrumented fusion T7- T11 Plan: 1. WOUND DEHISCENCE THORACIC SPINE; T8 BURST COMPRESSION FRACTURE WITH KYPHOTIC DEFORMITY; S/P MULTIPLE FRACTURE SURGERIES AND REVISION; THORACIC BACK PAIN - surgery performed , 10/27/2024open treatment T8 fracture; irrigation and excisional debridement of thoracic spine wound; posterior lateral instrumented fusion T7-T11. Patient currently on 4S. Found to have rectal prolapse, medicine consulted general surgery. Dressing CDI. work with PT/OT daily. We will continue to follow patient during stay in hospital. Pain medication as needed. Plan for discharge home today 2. Appreciate medical, general surgery, infectious disease, pulmonology management 3. Pain management - gabapentin; flexeril; [place] 4. DVT prophylaxis - mechanical 5. GI prophylaxis - protonix 6. PT/OT -weightbearing as tolerated with walker and soft c-collar on at all times 7. Encourage incentive spirometer use 8. Discharge planning -plan for discharge home today Time with Patient: Less than 30
--- NOTE | 2024-11-02 13:49 | P.PN ---
Subjective Progress Note Date: 11/02/24 Patient is a 54-year-old female with past medical history significant for asthma/COPD, hypertension, hyperlipidemia, CAD, heart failure, DVT, hypothyroidism, seizure disorder, osteoarthritis and multiple previous back surgeries. Most recently, underwent open treatment of T2 vertebral fracture and revision of C2-T7 posterior lateral fusion on 09/09/2024. Concerns for surgical site infection on outpatient basis, and was treated with antibiotics. On 10/24/2024 she was seen in the emergency department for continued concerns of a surgical site infection. Reports of thoracic level pain and green/brown discharge. Unfortunately, patient left AGAINST MEDICAL ADVICE. Patient returned the following day with similar complaints, and was admitted to the hospital. Patient was taken back to the operating room and did undergo open treatment of a T8 fracture, irrigation and excisional debridement of thoracic spine wound measuring 10 x 7 x 4 cm, posterior lateral instrumented fusion of T7-T11 and cement augmentation of T8-T10 vertebral bodies. Following the surgery, patient was extubated in the postanesthesia care unit, and transferred to the intensive care unit. Per the ICU nurse, patient was on a 6 L simple mask and obtunded. ABGs consistent with severe hypercapnic respiratory failure. Patient was trialed on BiPAP with settings 14/5 and FiO2 50%. Repeat ABG showing only minimal improvement with a PaO2 of 85, pCO2 75, pH of 7.12. Dr. Dumont was previously contacted and gave orders to intubate the patient, and this was done by PRIMARY CARE PROVIDER at 2225. I am seeing this patient in room 252 following the intubation. Postintubation chest x-ray showing the ET tube tip approximately 2 to 3 cm above the sergo, orogastric tube in satisfactory position, cervical and thoracic postsurgical hardware, hyperinflation consistent with COPD. Current ventilator settings AC, respiratory rate 18, tidal volume 400, FiO2 100 %, PEEP of 5. Follow-up ABGs, showing a PaO2 of 332, pCO2 50, pH is 7.26. Appropriate adjustments were made. Peak pressures are elevated at 34 and static airway pressure is 21. She does have diffuse expiratory wheezing. Started on combination of DuoNebs, formoterol and budesonide inhalations, and steroids. No secretions in the ET tube. No reported aspiration events. Prop ofol is going to be started. She does have a Hemovac drain with small amount of sanguinous output. Also, started on some empiric antibiotics in the form of cefepime and vancomycin. Blood and wound cultures are pending. CBC: WBC count 13.9, hemoglobin 10.4, platelets 598. Preop BMP includes a sodium 134, potassium 3.9, chloride 105, serum bicarb 25, BUN 13, creatinine 0.6, glucose 89. Was noted to be hypotensive following intubation, and was given 2 L of normal saline bolused. Blood pressure now normotensive. Normal saline continuous at 100 mL/h. 10/29/2024, the patient is calm and comfortable, still complaining of pain in her back. Able to move all 4 extremities without any limitation. A bit sleepy. No significant shortness of breath. Surgical wound is dry. Hemovac is in place. Output is 10 cc over the past 8 hours. Fluid balance is +1.1 L and the patient remains on normal citrate of 100 cc an hour. No other significant events overnight. She is extubated. White cell count is 11 hemoglobin 9.6 and a platelet count of 461. Sodium is at 137, potassium is 4, BUN 7 with a creatinine of 0.5. Calcium level is at 8.5. 10/30/2024, the patient is awake alert and comfortable. Pain is under better control. She is on status of oxygen by nasal cannula. She is on normal saline at 100 cc an hour. She had a urinary retention and Howell catheter was inserted. Hemovac has been removed. Surgical wound site is dry clean and intact.No other complaints otherwise for now. The white cell count is at 13 with a hemoglobin 9.6 and a platelet count is at 355. Electrolytes show a potassium level of 3.4, serum bicarb of 20, gap of 7, BUN 6 with a creatinine of 0.4. No other significant events overnight. Cultures are negative. The patient remains on cefepime and vancomycin. Tolerating her diet. Patient was seen today on 10/31/2024, patient is now postoperative day #4, seems to be doing well remains on cefepime, off vancomycin, she is still receiving treatment for COPD, and she is being followed by infectious disease. She is hemodynamically stable not requiring any pressors. Her WBC count is 10.8 hemoglobin 8.1 electrolytes are normal renal profile is normal. Patient denies any abdominal pain or discomfort. The patient is seen today November 01, 2024 in follow-up on the regular medical floor. Postoperative day #5. She is currently sitting up in a chair at the bedside. Awake and alert in no acute distress. Maintaining good O2 saturations in the 90s on 2 L/min per nasal cannula. She is afebrile. Hemodynamically stable. Blood and wound cultures from her back revealed no growth. Hemoglobin 7.6. Platelets 366. Sodium 134. Potassium 3.2. Bicarb 27. BUN 6. Creatinine 0.42. Glucose 108. She is continued on DuoNeb inhalations, Pulmicort and Perforomist inhalations. NicoDerm patch in place. She completed a course of antibiotics. She did have issues with rectal prolapse and bleeding last night. Surgery has been consulted. The patient is seen today November 02, 2024 in follow-up on the regular medical floor. Postoperative day #6. She is awake and alert in no acute distress. Sitting up in a chair. Denies any worsening shortness of breath, cough or congestion. Good O2 saturations in the 90s on 2 L/min per nasal cannula. She is afebrile. Hemodynamically stable. Blood cultures revealed no growth. Wound cultures revealed no growth. White count 11.6. Hemoglobin 7.5. Platelets 413. Sodium 137. Potassium 3.7. Bicarb 25. BUN 5. Creatinine 0.4. Glucose 93. She is continued on DuoNeb inhalations, Pulmicort and Perforomist inhalations. NicoDerm patch in place. Objective - Vital Signs Vital signs: Vital Signs Temp 97.9 F 11/02/24 06:54 Pulse 80 11/02/24 09:15 Resp 18 11/02/24 06:54 BP 143/86 11/02/24 06:54 Pulse Ox 90 L 11/02/24 06:54 FiO2 40 10/28/24 09:00 Intake & Output 11/01/24 11/02/24 11/02/24 18:59 06:59 18:59 Output Total 2200 Balance -2200 Output: Urine 2200 Other: Voiding Method Indwelling Catheter Indwelling Catheter ABP, PAP, CO, CI - Last Documented Arterial Blood Pressure 144/79 - Exam GENERAL EXAM: This is a pleasant 54-year-old female in no distress, up in a chair, on 2 L nasal cannula HEAD: Normocephalic and atraumatic EYES: Normal reaction of pupils, equal size. NOSE: Clear with pink turbinates. THROAT: No erythema or exudates. NECK: No masses, no JVD. CHEST: No chest wall deformity. LUNGS: Clear bilaterally minimal wheezing on forced expiratory maneuver CVS: S1 and S2 normal with no audible murmur, regular rhythm. No extra heart sounds ABDOMEN: No hepatosplenomegaly, active bowel sounds, no guarding or rigidity. SKIN: No rashes CENTRAL NERVOUS SYSTEM: Awake alert and oriented x 3 no gross focal deficit Psychiatric: Normal mood affect and no mental status examination Skin: No rashes. - Labs CBC & Chem 7: 11/02/24 07:05 11/02/24 07:05 Labs: Abnormal Lab Results - Last 24 Hours (Table) 11/02/24 11/02/24 Range/Units 07:05 07:05 WBC 11.66 H (4.50-10.00) X 10*3/uL RBC 2.40 L (4.10-5.20) X 10*6/uL Hgb 7.5 L (12.0-15.0) g/dL Hct 24.8 L (37.2-46.3) % MCV 103.3 H (80.0-97.0) FL MCHC 30.2 L (32.0-37.0) g/dL RDW 14.9 H (11.5-14.5) % Immature Gran # 0.07 H (0.00-0.04) X 10*3/uL Neutrophils # 8.94 H (1.80-7.70) X 10*3/uL Monocytes # 1.49 H (0.20-1.00) X 10*3/uL BUN 4.8 L (9.0-27.0) mg/dL Creatinine 0.4 L (0.6-1.5) mg/dL Calcium 8.3 L (8.7-10.3) mg/dL Microbiology - Last 24 Hours (Table) 10/27/24 16:54 Anaerobic Culture - Final Other - Other Assessment and Plan Assessment: Status postoperative day #6 following open treatment of a T8 fracture, irrigation and excisional debridement of thoracic spine wound measuring 10 x 7 x 4 cm, posterior lateral instrumented fusion of T7-T11 and cement augmentation of T8-T10 vertebral bodies. Acute hypoxemic and hypercapnic respiratory failure, recovered and the patient is currently on 2 L of O2 nasal cannula, extubated on 10/28/2024. Chronic obstructive pulmonary disease/asthma, currently inactive and stable T2 vertebral fracture with revision of C2-T7 posterior lateral fusion on 09/09/2024 Surgical site infection and wound dehiscence, wound and blood cultures revealed no growth Acute leukocytosis, improved Macrocytic anemia Rectal prolapse with bleeding History of hypertension History of hyperlipidemia History of coronary artery disease History of heart failure with preserved ejection fraction History of gastroesophageal reflux disease History of seizure disorder History of hypothyroidism History of anxiety/depression/PTSD Plan: The patient was seen and evaluated Labs and medications reviewed Plan is for home with home care today Continue her home Trelegy, Albuterol Educated regarding smoking cessation NicoDerm patch in place Follow closely with her PCP This patient was seen independently by the pulmonary nurse practitioner addressing pulmonary issues I have personally seen and examined the patient, performed the documentation and the assessment and plan as written. Number of minutes spent on the visit: 23 Dictation was produced using [employer] dictation software. Please excuse any grammatical, word or spelling errors.
--- NOTE | 2024-11-02 14:06 | P.PN ---
Subjective Progress Note Date: 11/02/24 - Reason for Consult Consult date: 10/27/24 Medical management, failure of outpatient abx, previous decompression - History of Present Illness This is a pleasant 54-year-old female who presented to the emergency department and admitted under orthopedic services for failure of outpatient therapy with oral antibiotics from previous decompression with fusion and kyphoplasty of her thoracic spine that was done at the beginning of September. Patient has had a few hospitalizations and was scheduled to undergo revision with washout and patient refused surgery reporting she was not feeling well. Cultures were obtained at that time and were negative and sent on oral antibiotics per infectious disease recommending outpatient follow-up with orthopedics. Patient is back with persistent pain and failure of outpatient treatment with wound dehiscence of the area and continued drainage now agreeable to surgery and scheduled for wound revision with washout on 10/27/2024. Patient reports she follows with Dr. Ballard in the outpatient setting with a significant past medical history of asthma, heart failure, COPD, DVT, fibromyalgia, GERD, hyperlipidemia, hypertension, memory impairment with previous heart attacks, osteoarthritis, seizure disorder, thyroid disorder as well as restless legs, IBS, colitis. Patient also with significant anxiety, bipolar depression with PTSD smokes daily occasionally uses marijuana and denies any alcohol use. Patient does have a legal public guardian and reports to living with her significant other (boyfriend). Medical was consulted for medical management. 10/27/2024 Patient is seen in follow-up today currently n.p.o. she is awaiting to undergo thoracic spine intervention with Dr. Mchugh today. Patient is afebrile with no reports of chest pain or shortness of breath. Patient does continue with soft collar at this time. Awaiting operative report. Recommend follow-up labs in the a.m. and will continue to follow along with orthopedics closely. 10/28/2024 Patient is seen in follow-up in the ICU status post washout and revision of the thoracic spine. Per nursing staff after postop patient was obtunded and concerns of protecting airway and was intubated and put in ICU for close monitoring with pulmonary consulted. Patient on exam had ET tube and NG tube in her hand and had self extubated. Patient was alert and oriented able to answer questions and commands appropriately. Plans were for extubation sometime today per pulmonary as patient was doing relatively well. Patient is maintained on antibiotics and cultures were obtained and pending. White count mildly elevated although likely reactive and will follow-up on repeat labs. 10/29/2024 Patient evaluated today in the ICU currently sitting up in the chair eating lunch. Postoperative day #2 washout and revision of the thoracic spine. Hemovac remains in place. Reports pain today at about a 5/10. She is currently on 2L of oxygen via nasal cannula. Patient not having any significant complaints today. Continues on IV cefepime and IV vancomycin. Chest xray this morning shows concern for volume overload. Sodium is better at 137, BUN 7, creatinine 0.53, white blood cell count 11.7. hgb 9.6. She is 98% on 3L of oxygen. Does not appear volume overloaded. 10/30/2024 Patient evaluated today in the intensive care unit. Resting in bed. States she has been unable to have a bowel movement despite bowel regimen. Enema to be gi ngozi today. She is postoperative day #3 washout and revision of thoracic spine. Hemovac was removed accidently by the patient yesterday. She continues to have significant pain to the back although reports improved since yesterday. Labs today are showing white blood cell count 13.0, hgb 9.6, potassium 3.4, bun 6, creatinine 0.46. UA completed yesterday was not suggestive of infection. Patient remains on IV cefepime and IV vancomycin. Continues on normal saline at 50 mls/hr. Remains on oxygen via nasal cannula at 2L. 10/31/2024 Patient is seen and evaluated in follow-up currently in the ICU although is a downgrade to [facility] once a bed becomes available. Per nursing staff patient continues with confusion at times and pulling at IVs and tubing and is impulsive and currently has safety relief valve technician at the bedside. Patient is awake and responding to questions and commands appropriately. Patient takes a number of pain medications and will adjust accordingly. Recommend limiting IV Dilaudid use given her mentation. Patient is afebrile with no reported chest pain or shortness of breath. Cultures thus far negative and patient was on antibiotics. Infectious disease consulted per orthopedics for antibiotic recommendations on discharge. Continue local wound care per orthopedics. Encourage incentive spirometer use and getting up out of the bed more frequently. 11/01/2024 Patient is seen in follow-up today hemoglobin is stable above 8 with no further bleeding noted from the rectum. Patient does have chronic history of rectal prolapse and has had previous surgeries with general surgery as well as hemorrhoids. General surgery was consulted and will be manually retracting the rectum. Otherwise patient is medically stable for discharge per orthopedics waiting on antibiotic recommendations per Bernardo. Plan is for patient to return home with home care. Patient is afebrile denies chest pain or shortness of breath. Patient continues to report significant back pain although mentation is much improved. 11/02/2024 Patient is seen in follow-up today continuing to report severe pain although it is improved and has been up and working with physical therapy. Plan will be to go home on discharge. Hemoglobin is stable with no active bleeding noted although does have some rectal discomfort. Patient was evaluated by general surgery for rectal prolapse and is doing slightly better. Patient to continue on bowel regimen scheduled as well as as needed especially while taking multiple pain medications. Patient is afebrile with no reported chest pain or shortness of breath. Patient looking forward to going home. Infectious disease following making antibiotic recommendations for discharge Review of Systems Constitutional: Denied any fatigue denied any fever. Cardio vascular: denied any chest pain, palpitations Gastrointestinal: denied any nausea, vomiting, diarrhea Reports had a bowel movement yesterday Pulmonary: Denied any shortness of breath cough Neurologic denied any new focal deficits, reports of continued weakness and back pain but slightly improved from yesterday All inpatient medications were reviewed and appropriate changes in these medications as dictated in the interval history and assessment and plan. PHYSICAL EXAMINATION: GENERAL: The patient is awake, alert and oriented x2-3, appears somewhat confused at times. Well developed, thin built, elderly appearing HEENT: Pupils are round and equally reacting to light. EOMI. No scleral icterus. No conjunctival pallor. Normocephalic, atraumatic. No pharyngeal erythema. No thyromegaly. CARDIOVASCULAR: S1 and S2 present. No murmurs, rubs, or gallops. Diminished PULMONARY: Diminished breath sounds bilaterally otherwise chest is clear to auscultation, no wheezing, coarse scattered rhonchi noted ABDOMEN: Soft, thin, nontender, nondistended, normoactive bowel sounds. No palpable organomegaly. MUSCULOSKELETAL: No joint swelling or deformity. EXTREMITIES: No cyanosis, clubbing, or pedal edema. NEUROLOGICAL: Gross neurological examination did not reveal any focal deficits. Diffusely weak SKIN: No rashes. Surgical dressing intact with minimal drainage. Hemovac is removed. Assessment: Ongoing back pain of the T-spine with failure of outpatient treatment on oral antibiotics, status post washout and revision of the thoracic spine with fusion T7-T11 10/27/2024 Acute hypoxemic respiratory failure; self extubated on 10/28/2024 History of recent C2-T7 decompression, fusion, fracture reduction with realignment of the T8 fracture Rectal bleeding with history of hemorrhoids, chronic rectal prolapse, no GI bleed per general surgery Wound dehiscence of that previous surgical site due to pressure ulceration History of noncompliance Hypokalemia, improved after replacement Significant history of anxiety/depression/bipolar/PTSD Hypertension history Hyperlipidemia history Asthma/COPD history, not in exacerbation Continued ongoing nicotine abuse History of previous DVT History of GERD History of fibromyalgia History of memory impairment has a legal public guardian GI prophylaxis DVT prophylaxis Full code Plan: Patient was admitted under orthopedic services with failure of outpatient treatment. Patient underwent revision with washout 10/27/2024 Patient is currently in the ICU for close monitoring and awaiting downgrade to [facility] today Home medications reviewed and resumed as appropriate. Recommend adjusting medications as patient takes a number of high-dose pain medications and BAGGING SALVAGER agents. Patient is somewhat confused and lethargic at times and will adjust medications accordingly. Patient experienced some rectal bleeding most likely secondary to chronic rectal prolapse and hemorrhoids. General surgery has evaluated recommending no further surgical intervention and outpatient follow-up with primary surgeon. Hemoglobin is stable Continue pain management and recommend limiting IV narcotics Recommend PT/OT therapy evaluation postsurgical Encourage incentive spirometer use at least 10 times every hour while awake Nicotine patch as needed Continue as needed as well as scheduled bowel regimen. Patient had a bowel movement yesterday Will follow-up with repeat labs, replace electrolytes per protocol We will continue to follow with orthopedics during hospitalization. Thank you kindly for this consultation. The impression and plan of care has been dictated by Kristina Wells, Nurse Practitioner as directed. Dr. Jayson MD I have performed a history and examination and MDM of this patient, discussed the same with the dictator, and agree with the dictator's assessment and plan as written ,documented as a scribe. Based on total visit time, I have performed more than 50% of the visit. Objective - Vital Signs Vital signs: Vital Signs Temp 97.9 F 11/02/24 06:54 Pulse 80 11/02/24 09:15 Resp 18 11/02/24 06:54 BP 143/86 11/02/24 06:54 Pulse Ox 96 11/02/24 01:09 FiO2 40 10/28/24 09:00 Intake & Output 11/01/24 11/02/24 11/02/24 18:59 06:59 18:59 Output Total 2200 Balance -2200 Output: Urine 2200 Other: Voiding Method Indwelling Catheter Indwelling Catheter ABP, PAP, CO, CI - Last Documented Arterial Blood Pressure 144/79 - Labs CBC & Chem 7: 11/02/24 07:05 11/02/24 07:05 Labs: Microbiology - Last 24 Hours (Table) 10/27/24 16:54 Anaerobic Culture - Final Other - Other
--- NOTE | 2024-11-02 14:25 | P.PN ---
Subjective Progress Note Date: 11/02/24 SURGICAL PROGRESS NOTE CHIEF COMPLAINT: Back surgery HISTORY OF PRESENT ILLNESS: Surgical service following in regards to patient's rectal prolapse. They have been applying sugar around the area. Patient still had some bleeding noted on the tissue papers. They report possible discharge later today. Patient denies any rectal pain. Afebrile. WBC is 11.6 Hgb 7.5 PHYSICAL EXAM: VITAL SIGNS: Reviewed. GENERAL: Well-developed in no acute distress. ASSESSMENT: 1. Chronic rectal prolapse PLAN: -Recommend outpatient surgical intervention -Continue to apply sugar to decrease inflammation -Continue pain control -Continue good bowel regimen. Avoid straining with bowel movements. Physician Leather Heel Breaster note has been reviewed by physician. Signing provider agrees with the documented findings, assessment, and plan of care. Attestation Patient seen and examined at bedside. Surgery consulted secondary to patient's rectal prolapse. Sugar has been applied around the area with some bleeding noted over the site. The patient does have a chronic rectal prolapse. She has not had a bowel movement in 3 days and recommendation was made for bowel regimen to avoid further pressure on the prolapse. She did have bowel function with some mild improvement in the prolapse. Currently denying any additional pain. She is surgically stable for discharge should primary service want to discharge her. Did recommend follow-up as she will benefit from repair of this rectal prolapse as an outpatient. Narinder Young, Objective - Vital Signs Vital signs: Vital Signs Temp 97.9 F 11/02/24 06:54 Pulse 80 11/02/24 09:15 Resp 18 11/02/24 06:54 BP 143/86 11/02/24 06:54 Pulse Ox 90 L 11/02/24 06:54 FiO2 40 10/28/24 09:00 Intake & Output 11/01/24 11/02/24 11/02/24 18:59 06:59 18:59 Output Total 2200 Balance -2200 Output: Urine 2200 Other: Voiding Method Indwelling Catheter Indwelling Catheter ABP, PAP, CO, CI - Last Documented Arterial Blood Pressure 144/79 - Labs CBC & Chem 7: 11/02/24 07:05 11/02/24 07:05 Labs: Abnormal Lab Results - Last 24 Hours (Table) 11/02/24 11/02/24 Range/Units 07:05 07:05 WBC 11.66 H (4.50-10.00) X 10*3/uL RBC 2.40 L (4.10-5.20) X 10*6/uL Hgb 7.5 L (12.0-15.0) g/dL Hct 24.8 L (37.2-46.3) % MCV 103.3 H (80.0-97.0) FL MCHC 30.2 L (32.0-37.0) g/dL RDW 14.9 H (11.5-14.5) % Immature Gran # 0.07 H (0.00-0.04) X 10*3/uL Neutrophils # 8.94 H (1.80-7.70) X 10*3/uL Monocytes # 1.49 H (0.20-1.00) X 10*3/uL BUN 4.8 L (9.0-27.0) mg/dL Creatinine 0.4 L (0.6-1.5) mg/dL Calcium 8.3 L (8.7-10.3) mg/dL Microbiology - Last 24 Hours (Table) 10/27/24 16:54 Anaerobic Culture - Final Other - Other
--- NOTE | 2024-11-02 15:59 | P.PN ---
Subjective Progress Note Date: 11/02/24 Principal diagnosis: Reason for follow-up is surgical wound dehiscence concern of infection Patient is a 54-year-old female with a past medical history significant for fibromyalgia hypertension hyperlipidemia ME osteoarthritis who has been brought to the hospital about a week ago for evaluation of back pain in this patient who recently did have a C2-T7 decompression and fusion fracture reduction and realignment and subsequently has been dealing with a nonhealing wo und to the mid back area, status post operative repair ID consulted for possible infection need for antibiotic therapy. On today's evaluation that is 11/02/2024,the patient denies any fever or any chi lls, patient is breathing comfortably on 2 L nasal oxygen the patient denies chest pain shortness of breath and no significant cough, patient denies abdominal pain, no nausea vomiting or diarrhea, has been complaining of Howell catheter wanted to be out. Patient white count is 11.66 creatinine 0.4 culture remains to be negative Objective - Vital Signs Vital signs: Vital Signs Temp 97.9 F 11/02/24 06:54 Pulse 80 11/02/24 09:15 Resp 18 11/02/24 06:54 BP 143/86 11/02/24 06:54 Pulse Ox 90 L 11/02/24 06:54 FiO2 40 10/28/24 09:00 Intake & Output 11/01/24 11/02/24 11/02/24 18:59 06:59 18:59 Output Total 2200 Balance -2200 Output: Urine 2200 Other: Voiding Method Indwelling Catheter Indwelling Catheter ABP, PAP, CO, CI - Last Documented Arterial Blood Pressure 144/79 - Exam GENERAL DESCRIPTION: Middle-age female lying in bed in no distress RESPIRATORY SYSTEM: Unlabored breathing , decreased breath sounds at bases HEART: S1 S2 regular rate and rhythm , ABDOMEN: Soft , no tenderness EXTREMITIES: No edema feet - Labs CBC & Chem 7: 11/02/24 07:05 11/02/24 07:05 Labs: Abnormal Lab Results - Last 24 Hours (Table) 11/02/24 11/02/24 Range/Units 07:05 07:05 WBC 11.66 H (4.50-10.00) X 10*3/uL RBC 2.40 L (4.10-5.20) X 10*6/uL Hgb 7.5 L (12.0-15.0) g/dL Hct 24.8 L (37.2-46.3) % MCV 103.3 H (80.0-97.0) FL MCHC 30.2 L (32.0-37.0) g/dL RDW 14.9 H (11.5-14.5) % Immature Gran # 0.07 H (0.00-0.04) X 10*3/uL Neutrophils # 8.94 H (1.80-7.70) X 10*3/uL Monocytes # 1.49 H (0.20-1.00) X 10*3/uL BUN 4.8 L (9.0-27.0) mg/dL Creatinine 0.4 L (0.6-1.5) mg/dL Calcium 8.3 L (8.7-10.3) mg/dL Microbiology - Last 24 Hours (Table) 10/27/24 16:54 Anaerobic Culture - Final Other - Other Assessment and Plan (1) Postoperative wound dehiscence Current Visit: Yes Status: Acute Code(s): T81.31XA - DISRUPTION OF EXTERNAL OPERATION (SURGICAL) WOUND, NEC, INIT SNOMED Code(s): 438519387 (2) Leukocytosis Current Visit: No Status: Acute Code(s): D72.829 - ELEVATED WHITE BLOOD CELL COUNT, UNSPECIFIED SNOMED Code(s): 881790623 Plan: 1patient with a complicated history and this patient who recently did have extensive thoracocervical spine surgery with subsequent nonhealing wound has been admitted to hospital about a week ago before admission and evaluation and is status post surgical debridement of the wound and open treatment of the fracture, operative report did not mention any purulent drainage she did have multiple cultures from the surgical site which has been negative blood culture have been negative did have mild elevated white count admission that has subsequent normalized and did not have any fever making infection to be less likely 2-patient culture remains to be negative and the patient remains to be afebrile will monitor the patient closely off antibiotic therapy at this point Dictation was produced using [employer] dictation software. please excuse any gramm atical, word or spelling errors.
[2024-11-02] MEDS: LACTULOSE 20 GM/30 ML CUP PO SCH (20:50)
[2024-11-03 07:57] VITALS: BP 127/69; RESP 18; TEMP 98.3
[2024-11-03 10:18] VITALS: PULSE 88
[2024-11-03] MEDS: TAMSULOSIN 0.4 MG CAP.ER.24H PO STA (11:24)
--- NOTE | 2024-11-03 11:43 | P.PN ---
Subjective Progress Note Date: 11/03/24 Patient is a 54-year-old female with past medical history significant for asthma/COPD, hypertension, hyperlipidemia, CAD, heart failure, DVT, hypothyroidism, seizure disorder, osteoarthritis and multiple previous back surgeries. Most recently, underwent open treatment of T2 vertebral fracture and revision of C2-T7 posterior lateral fusion on 09/09/2024. Concerns for surgical site infection on outpatient basis, and was treated with antibiotics. On 10/24/2024 she was seen in the emergency department for continued concerns of a surgical site infection. Reports of thoracic level pain and green/brown discharge. Unfortunately, patient left AGAINST MEDICAL ADVICE. Patient returned the following day with similar complaints, and was admitted to the hospital. Patient was taken back to the operating room and did undergo open treatment of a T8 fracture, irrigation and excisional debridement of thoracic spine wound measuring 10 x 7 x 4 cm, posterior lateral instrumented fusion of T7-T11 and cement augmentation of T8-T10 vertebral bodies. Following the surgery, patient was extubated in the postanesthesia care unit, and transferred to the intensive care unit. Per the ICU nurse, patient was on a 6 L simple mask and obtunded. ABGs consistent with severe hypercapnic respiratory failure. Patient was trialed on BiPAP with settings 14/5 and FiO2 50%. Repeat ABG showing only minimal improvement with a PaO2 of 85, pCO2 75, pH of 7.12. Dr. Dumont was previously contacted and gave orders to intubate the patient, and this was done by SKIP LOADER at 2225. I am seeing this patient in room 252 following the intubation. Postintubation chest x-ray showing the ET tube tip approximately 2 to 3 cm above the sergo, orogastric tube in satisfactory position, cervical and thoracic postsurgical hardware, hyperinflation consistent with COPD. Current ventilator settings AC, respiratory rate 18, tidal volume 400, FiO2 100 %, PEEP of 5. Follow-up ABGs, showing a PaO2 of 332, pCO2 50, pH is 7.26. Appropriate adjustments were made. Peak pressures are elevated at 34 and static airway pressure is 21. She does have diffuse expiratory wheezing. Started on combination of DuoNebs, formoterol and budesonide inhalations, and steroids. No secretions in the ET tube. No reported aspiration events. Prop ofol is going to be started. She does have a Hemovac drain with small amount of sanguinous output. Also, started on some empiric antibiotics in the form of cefepime and vancomycin. Blood and wound cultures are pending. CBC: WBC count 13.9, hemoglobin 10.4, platelets 598. Preop BMP includes a sodium 134, potassium 3.9, chloride 105, serum bicarb 25, BUN 13, creatinine 0.6, glucose 89. Was noted to be hypotensive following intubation, and was given 2 L of normal saline bolused. Blood pressure now normotensive. Normal saline continuous at 100 mL/h. 10/29/2024, the patient is calm and comfortable, still complaining of pain in her back. Able to move all 4 extremities without any limitation. A bit sleepy. No significant shortness of breath. Surgical wound is dry. Hemovac is in place. Output is 10 cc over the past 8 hours. Fluid balance is +1.1 L and the patient remains on normal citrate of 100 cc an hour. No other significant events overnight. She is extubated. White cell count is 11 hemoglobin 9.6 and a platelet count of 461. Sodium is at 137, potassium is 4, BUN 7 with a creatinine of 0.5. Calcium level is at 8.5. 10/30/2024, the patient is awake alert and comfortable. Pain is under better control. She is on status of oxygen by nasal cannula. She is on normal saline at 100 cc an hour. She had a urinary retention and Howell catheter was inserted. Hemovac has been removed. Surgical wound site is dry clean and intact.No other complaints otherwise for now. The white cell count is at 13 with a hemoglobin 9.6 and a platelet count is at 355. Electrolytes show a potassium level of 3.4, serum bicarb of 20, gap of 7, BUN 6 with a creatinine of 0.4. No other significant events overnight. Cultures are negative. The patient remains on cefepime and vancomycin. Tolerating her diet. Patient was seen today on 10/31/2024, patient is now postoperative day #4, seems to be doing well remains on cefepime, off vancomycin, she is still receiving treatment for COPD, and she is being followed by infectious disease. She is hemodynamically stable not requiring any pressors. Her WBC count is 10.8 hemoglobin 8.1 electrolytes are normal renal profile is normal. Patient denies any abdominal pain or discomfort. The patient is seen today November 01, 2024 in follow-up on the regular medical floor. Postoperative day #5. She is currently sitting up in a chair at the bedside. Awake and alert in no acute distress. Maintaining good O2 saturations in the 90s on 2 L/min per nasal cannula. She is afebrile. Hemodynamically stable. Blood and wound cultures from her back revealed no growth. Hemoglobin 7.6. Platelets 366. Sodium 134. Potassium 3.2. Bicarb 27. BUN 6. Creatinine 0.42. Glucose 108. She is continued on DuoNeb inhalations, Pulmicort and Perforomist inhalations. NicoDerm patch in place. She completed a course of antibiotics. She did have issues with rectal prolapse and bleeding last night. Surgery has been consulted. The patient is seen today November 02, 2024 in follow-up on the regular medical floor. Postoperative day #6. She is awake and alert in no acute distress. Sitting up in a chair. Denies any worsening shortness of breath, cough or congestion. Good O2 saturations in the 90s on 2 L/min per nasal cannula. She is afebrile. Hemodynamically stable. Blood cultures revealed no growth. Wound cultures revealed no growth. White count 11.6. Hemoglobin 7.5. Platelets 413. Sodium 137. Potassium 3.7. Bicarb 25. BUN 5. Creatinine 0.4. Glucose 93. She is continued on DuoNeb inhalations, Pulmicort and Perforomist inhalations. NicoDerm patch in place. The patient is seen today November 03, 2024 in follow-up on the regular medical floor. Postoperative day #7. She is currently resting in bed. Awake and alert in no acute distress. She is maintaining O2 saturations in the 90s on room air. She is afebrile. Hemodynamically stable. Blood and wound cultures revealed no growth. She is continued on DuoNeb inhalations, Pulmicort and Perforomist inhalations. NicoDerm patch in place. Objective - Vital Signs Vital signs: Vital Signs Temp 98.3 F 11/03/24 07:01 Pulse 88 11/03/24 10:14 Resp 18 11/03/24 10:14 BP 127/69 11/03/24 07:01 Pulse Ox 89 L 11/03/24 09:33 FiO2 40 10/28/24 09:00 Intake & Output 11/02/24 11/03/24 11/03/24 18:59 06:59 18:59 Output Total 1200 1505 Balance -1200 -1505 Output: Urine 1200 1505 Straight 1355 Post Void Residual 0 Other: Voiding Method Indwelling Catheter # Bowel Movements 1 ABP, PAP, CO, CI - Last Documented Arterial Blood Pressure 144/79 - Exam GENERAL EXAM: This is a 54-year-old female in no distress, sitting in bed, on room air, HEAD: Normocephalic and atraumatic EYES: Normal reaction of pupils, equal size. NOSE: Clear with pink turbinates. THROAT: No erythema or exudates. NECK: No masses, no JVD. CHEST: No chest wall deformity. LUNGS: Clear bilaterally minimal wheezing on forced expiratory maneuver CVS: S1 and S2 normal with no audible murmur, regular rhythm. No extra heart sounds ABDOMEN: No hepatosplenomegaly, active bowel sounds, no guarding or rigidity. SKIN: No rashes CENTRAL NERVOUS SYSTEM: Awake alert and oriented x 3 no gross focal deficit Psychiatric: Normal mood affect and no mental status examination Skin: No rashes. - Labs CBC & Chem 7: 11/02/24 07:05 11/02/24 07:05 Assessment and Plan Assessment: Status postoperative day #7 following open treatment of a T8 fracture, irriga tion and excisional debridement of thoracic spine wound measuring 10 x 7 x 4 cm, posterior lateral instrumented fusion of T7-T11 and cement augmentation of T8- T10 vertebral bodies. Acute hypoxemic and hypercapnic respiratory failure, recovered and the patient is currently on 2 L of O2 nasal cannula, extubated on 10/28/2024. Chronic obstructive pulmonary disease/asthma, currently inactive and stable T2 vertebral fracture with revision of C2-T7 posterior lateral fusion on 09/09/2024 Surgical site infection and wound dehiscence, wound and blood cultures revealed no growth Acute leukocytosis, improved Macrocytic anemia Rectal prolapse with bleeding History of hypertension History of hyperlipidemia History of coronary artery disease History of heart failure with preserved ejection fraction History of gastroesophageal reflux disease History of seizure disorder History of hypothyroidism History of anxiety/depression/PTSD Plan: The patient was seen and evaluated Medications reviewed Other providers notes reviewed Stable and on room air Continue her home Trelegy, Albuterol Educated regarding smoking cessation NicoDerm patch in place To follow-up with surgeon in the outpatient setting regarding rectal prolapse This patient was seen independently by the pulmonary nurse practitioner addressing pulmonary issues I have personally seen and examined the patient, performed the documentation and the assessment and plan as written. Number of minutes spent on the visit: 24 Dictation was produced using [employer] dictation software. Please excuse any grammatical, word or spelling errors.
--- NOTE | 2024-11-03 15:32 | P.PN ---
Subjective Progress Note Date: 11/03/24 SURGICAL PROGRESS NOTE CHIEF COMPLAINT: Back surgery HISTORY OF PRESENT ILLNESS: Surgical service following in regards to patient's rectal prolapse. They have been applying sugar around the area. Patient reports small amount of blood spotting from the rectal prolapse. Patient did have a bowel movement. Afebrile. WBC 11.6 Hgb 7.5 PHYSICAL EXAM: VITAL SIGNS: Reviewed. GENERAL: Well-developed in no acute distress. ASSESSMENT: 1. Chronic rectal prolapse PLAN: -Patient can be discharged from surgical standpoint -Recommend outpatient surgical intervention -Continue to apply sugar to decrease inflammation -Continue pain control -Continue good bowel regimen. Avoid straining with bowel movements. Physician Manager Talent Management note has been reviewed by physician. Signing provider agrees with the documented findings, assessment, and plan of care. Attestation Patient seen and examined at bedside. Presented with chief complaint of back surgery and is status post back procedure. She has history of rectal prolapse that worsened slightly during the admission. After having bowel movement she states that this area has improved. Recommended follow-up outpatient for discussing treatment plan. Recommended bowel regimen at home. Patient surgically stable for discharge. Narinder Young DO Objective - Vital Signs Vital signs: Vital Signs Temp 98.3 F 11/03/24 07:01 Pulse 88 11/03/24 10:14 Resp 18 11/03/24 10:14 BP 127/69 11/03/24 07:01 Pulse Ox 89 L 11/03/24 09:33 FiO2 40 10/28/24 09:00 Intake & Output 11/02/24 11/03/24 11/03/24 18:59 06:59 18:59 Output Total 1200 1505 Balance -1200 -1505 Output: Urine 1200 1505 Straight 1355 Post Void Residual 0 Other: Voiding Method Indwelling Catheter Indwelling Catheter # Bowel Movements 1 ABP, PAP, CO, CI - Last Documented Arterial Blood Pressure 144/79 - Labs CBC & Chem 7: 11/02/24 07:05 11/02/24 07:05
--- NOTE | 2024-11-04 05:14 | P.PN ---
Subjective Progress Note Date: 11/03/24 - Reason for Consult Consult date: 10/27/24 Medical management, failure of outpatient abx, previous decompression - History of Present Illness This is a pleasant 54-year-old female who presented to the emergency department and admitted under orthopedic services for failure of outpatient therapy with oral antibiotics from previous decompression with fusion and kyphoplasty of her thoracic spine that was done at the beginning of September. Patient has had a few hospitalizations and was scheduled to undergo revision with washout and patient refused surgery reporting she was not feeling well. Cultures were obtained at that time and were negative and sent on oral antibiotics per infectious disease recommending outpatient follow-up with orthopedics. Patient is back with persistent pain and failure of outpatient treatment with wound dehiscence of the area and continued drainage now agreeable to surgery and scheduled for wound revision with washout on 10/27/2024. Patient reports she follows with Dr. Ballard in the outpatient setting with a significant past medical history of asthma, heart failure, COPD, DVT, fibromyalgia, GERD, hyperlipidemia, hypertension, memory impairment with previous heart attacks, osteoarthritis, seizure disorder, thyroid disorder as well as restless legs, IBS, colitis. Patient also with significant anxiety, bipolar depression with PTSD smokes daily occasionally uses marijuana and denies any alcohol use. Patient does have a legal public guardian and reports to living with her significant other (boyfriend). Medical was consulted for medical management. 10/27/2024 Patient is seen in follow-up today currently n.p.o. she is awaiting to undergo thoracic spine intervention with Dr. Mchugh today. Patient is afebrile with no reports of chest pain or shortness of breath. Patient does continue with soft collar at this time. Awaiting operative report. Recommend follow-up labs in the a.m. and will continue to follow along with orthopedics closely. 10/28/2024 Patient is seen in follow-up in the ICU status post washout and revision of the thoracic spine. Per nursing staff after postop patient was obtunded and concerns of protecting airway and was intubated and put in ICU for close monitoring with pulmonary consulted. Patient on exam had ET tube and NG tube in her hand and had self extubated. Patient was alert and oriented able to answer questions and commands appropriately. Plans were for extubation sometime today per pulmonary as patient was doing relatively well. Patient is maintained on antibiotics and cultures were obtained and pending. White count mildly elevated although likely reactive and will follow-up on repeat labs. 10/29/2024 Patient evaluated today in the ICU currently sitting up in the chair eating lunch. Postoperative day #2 washout and revision of the thoracic spine. Hemovac remains in place. Reports pain today at about a 5/10. She is currently on 2L of oxygen via nasal cannula. Patient not having any significant complaints today. Continues on IV cefepime and IV vancomycin. Chest xray this morning shows concern for volume overload. Sodium is better at 137, BUN 7, creatinine 0.53, white blood cell count 11.7. hgb 9.6. She is 98% on 3L of oxygen. Does not appear volume overloaded. 10/30/2024 Patient evaluated today in the intensive care unit. Resting in bed. States she has been unable to have a bowel movement despite bowel regimen. Enema to be gi ngozi today. She is postoperative day #3 washout and revision of thoracic spine. Hemovac was removed accidently by the patient yesterday. She continues to have significant pain to the back although reports improved since yesterday. Labs today are showing white blood cell count 13.0, hgb 9.6, potassium 3.4, bun 6, creatinine 0.46. UA completed yesterday was not suggestive of infection. Patient remains on IV cefepime and IV vancomycin. Continues on normal saline at 50 mls/hr. Remains on oxygen via nasal cannula at 2L. 10/31/2024 Patient is seen and evaluated in follow-up currently in the ICU although is a downgrade to [facility] once a bed becomes available. Per nursing staff patient continues with confusion at times and pulling at IVs and tubing and is impulsive and currently has product safety administrator at the bedside. Patient is awake and responding to questions and commands appropriately. Patient takes a number of pain medications and will adjust accordingly. Recommend limiting IV Dilaudid use given her mentation. Patient is afebrile with no reported chest pain or shortness of breath. Cultures thus far negative and patient was on antibiotics. Infectious disease consulted per orthopedics for antibiotic recommendations on discharge. Continue local wound care per orthopedics. Encourage incentive spirometer use and getting up out of the bed more frequently. 11/01/2024 Patient is seen in follow-up today hemoglobin is stable above 8 with no further bleeding noted from the rectum. Patient does have chronic history of rectal prolapse and has had previous surgeries with general surgery as well as hemorrhoids. General surgery was consulted and will be manually retracting the rectum. Otherwise patient is medically stable for discharge per orthopedics waiting on antibiotic recommendations per Bernardo. Plan is for patient to return home with home care. Patient is afebrile denies chest pain or shortness of breath. Patient continues to report significant back pain although mentation is much improved. 11/02/2024 Patient is seen in follow-up today continuing to report severe pain although it is improved and has been up and working with physical therapy. Plan will be to go home on discharge. Hemoglobin is stable with no active bleeding noted although does have some rectal discomfort. Patient was evaluated by general surgery for rectal prolapse and is doing slightly better. Patient to continue on bowel regimen scheduled as well as as needed especially while taking multiple pain medications. Patient is afebrile with no reported chest pain or shortness of breath. Patient looking forward to going home. Infectious disease following making antibiotic recommendations for discharge 11/03/2024 Patient is seen in follow-up today dressed at the bedside with family ready to go. Patient did have Howell catheter removed and was due to void and per nursing staff went a small amount and had post void residual noted on bladder scan. Plan will be for patient to receive an indwelling Howell catheter with outpatient follow-up with urology. Will initiate Flomax. Home care is being arranged and patient will continue on oral antibiotics per ID recommendations. Review of Systems Constitutional: Denied any fatigue denied any fever. Cardio vascular: denied any chest pain, palpitations Gastrointestinal: denied any nausea, vomiting, diarrhea Reports had a bowel movement yesterday Pulmonary: Denied any shortness of breath cough Neurologic denied any new focal deficits, reports of continued weakness and back pain but slightly improved from yesterday All inpatient medications were reviewed and appropriate changes in these medications as dictated in the interval history and assessment and plan. PHYSICAL EXAMINATION: GENERAL: The patient is awake, alert and oriented x2-3, baseline. Well developed, thin built, elderly appearing HEENT: Pupils are round and equally reacting to light. EOMI. No scleral icterus. No conjunctival pallor. Normocephalic, atraumatic. No pharyngeal erythema. No thyromegaly. CARDIOVASCULAR: S1 and S2 present. No murmurs, rubs, or gallops. Diminished PULMONARY: Diminished breath sounds bilaterally otherwise chest is clear to auscultation, no wheezing, coarse scattered rhonchi noted ABDOMEN: Soft, thin, nontender, nondistended, normoactive bowel sounds. No palpable organomegaly. MUSCULOSKELETAL: No joint swelling or deformity. EXTREMITIES: No cyanosis, clubbing, or pedal edema. NEUROLOGICAL: Gross neurological examination did not reveal any focal deficits. Diffusely weak SKIN: No rashes. Surgical dressing intact with minimal drainage. Hemovac is removed. Assessment: Ongoing back pain of the T-spine with failure of outpatient treatment on oral antibiotics, status post washout and revision of the thoracic spine with fusion T7-T11 10/27/2024 Acute hypoxemic respiratory failure; self extubated on 10/28/2024 History of recent C2-T7 decompression, fusion, fracture reduction with realignment of the T8 fracture Rectal bleeding with history of hemorrhoids, chronic rectal prolapse, no GI bleed per general surgery Wound dehiscence of that previous surgical site due to pressure ulceration Urinary retention requiring indwelling Howell catheter. History of noncompliance Hypokalemia, improved after replacement Significant history of anxiety/depression/bipolar/PTSD Hypertension history Hyperlipidemia history Asthma/COPD history, not in exacerbation Continued ongoing nicotine abuse History of previous DVT History of GERD History of fibromyalgia History of memory impairment has a legal public guardian GI prophylaxis DVT prophylaxis Full code Plan: Patient was admitted under orthopedic services with failure of outpatient treatment. Patient underwent revision with washout 10/27/2024 Home medications reviewed and resumed as appropriate. Recommend adjusting medications as patient takes a number of high-dose pain medications and PROP MAKING SUPERVISOR agents. Patient mentation is improved and at baseline Patient experienced some rectal bleeding most likely secondary to chronic rectal prolapse and hemorrhoids. General surgery has evaluated recommending no further surgical intervention and outpatient follow-up with primary surgeon. Hemoglobin is stable Continue pain management and recommend limiting IV narcotics Recommend PT/OT therapy evaluation postsurgical Encourage incentive spirometer use at least 10 times every hour while awake Nicotine patch as needed Continue as needed as well as scheduled bowel regimen. Patient had a bowel movement yesterday Nursing staff instructed to remove Howell and patient did void although scant amount with postvoid residual retention noted on bladder scan will receive an indwelling Howell catheter and recommend outpatient follow-up with urology consultation. Initiate Flomax on discharge as well. Patient was given a dose while hospitalized Patient is medically stable once cleared by orthopedics and has antibiotic recommendations We will continue to follow with orthopedics during hospitalization. Thank you kindly for this consultation. The impression and plan of care has been dictated by Kristina Wells, Nurse Practitioner as directed. Dr. Jayson MD I have performed a history and examination and MDM of this patient, discussed the same with the dictator, and agree with the dictator's assessment and plan as written ,documented as a scribe. Based on total visit time, I have performed more than 50% of the visit. Objective - Vital Signs Vital signs: Vital Signs Temp 98.3 F 11/03/24 07:01 Pulse 88 11/03/24 10:14 Resp 18 11/03/24 10:14 BP 127/69 11/03/24 07:01 Pulse Ox 89 L 11/03/24 09:33 FiO2 40 10/28/24 09:00 Intake & Output 11/02/24 11/03/24 11/03/24 18:59 06:59 18:59 Output Total 1200 1505 Balance -1200 -1505 Output: Urine 1200 1505 Straight 1355 Post Void Residual 0 Other: Voiding Method Indwelling Catheter # Bowel Movements 1 ABP, PAP, CO, CI - Last Documented Arterial Blood Pressure 144/79 - Labs CBC & Chem 7: 11/02/24 07:05 11/02/24 07:05
--- NOTE | 2024-11-04 15:27 | P.PN ---
Subjective Progress Note Date: 11/03/24 Principal diagnosis: Reason for follow-up is surgical wound dehiscence concern of infection Patient is a 54-year-old female with a past medical history significant for fibromyalgia hypertension hyperlipidemia ND osteoarthritis who has been brought to the hospital about a week ago for evaluation of back pain in this patient who recently did have a C2-T7 decompression and fusion fracture reduction and realignment and subsequently has been dealing with a nonhealing wo und to the mid back area, status post operative repair ID consulted for possible infection need for antibiotic therapy. On today's evaluation that is 11/03/2024,the patient remains to be afebrile, pat ient is on room air not requiring supplemental oxygen and denies any shortness of breath no chest pain or cough.Patient denies having any nausea or vomiting, no abdominal pain and no diarrhea, seem to have problem with urine retention after removal of his Howell catheter. The patient did have a lab draw today culture remains to be negative Objective - Vital Signs Vital signs: Vital Signs Temp 98.3 F 11/03/24 07:01 Pulse 88 11/03/24 10:14 Resp 18 11/03/24 10:14 BP 127/69 11/03/24 07:01 Pulse Ox 89 L 11/03/24 09:33 FiO2 40 10/28/24 09:00 Intake & Output 11/02/24 11/03/24 11/03/24 18:59 06:59 18:59 Output Total 1200 1505 Balance -1200 -1505 Output: Urine 1200 1505 Straight 1355 Post Void Residual 0 Other: Voiding Method Indwelling Catheter Indwelling Catheter # Bowel Movements 1 ABP, PAP, CO, CI - Last Documented Arterial Blood Pressure 144/79 - Exam GENERAL DESCRIPTION: Middle-age female lying in bed in no distress RESPIRATORY SYSTEM: Unlabored breathing , decreased breath sounds at bases HEART: S1 S2 regular rate and rhythm , ABDOMEN: Soft , no tenderness EXTREMITIES: No edema feet - Labs CBC & Chem 7: 11/02/24 07:05 11/02/24 07:05 Assessment and Plan (1) Postoperative wound dehiscence Status: Acute Code(s): T81.31XA - DISRUPTION OF EXTERNAL OPERATION (SURGICAL) WOUND, NEC, INIT SNOMED Code(s): 178827799 (2) Leukocytosis Status: Acute Code(s): D72.829 - ELEVATED WHITE BLOOD CELL COUNT, UNSPECIFIED SNOMED Code(s): 433636400 Plan: 1patient with a complicated history and this patient who recently did have extensive thoracocervical spine surgery with subsequent nonhealing wound has been admitted to hospital about a week ago before admission and evaluation and is status post surgical debridement of the wound and open treatment of the fracture, operative report did not mention any purulent drainage she did have multiple cultures from the surgical site which has been negative blood culture have been negative did have mild elevated white count admission that has subsequent normalized and did not have any fever making infection to be less likely 2-patient culture remains to be negative and the patient remains to be afebrile hence no need for any antibiotic on discharge Dictation was produced using [employer] dictation software. please excuse any grammatical, word or spelling errors. Time with Patient: Less than 30
== END 2024-11-03 12:53 | disposition home health service (06) | DRG 792 ==
LOC: EC 11:41 → 4SSUR 13:47 → 2SICU 10-27 16:46 → 4SSUR 10-31 22:06
PROVIDERS: ADMIT Orthopaedic Surgery; ATTEND Orthopaedic Surgery
PROC: 0PS434Z Reposition Thoracic Vertebra with Internal Fixation Device, Percutaneous Approach (ICD-10-PCS; 2024-10-27)
PROC: 0PB40ZZ Excision of Thoracic Vertebra, Open Approach (ICD-10-PCS; 2024-10-27)
PROC: 8E0WXBG Computer Assisted Procedure of Trunk Region, With Computerized Tomography (ICD-10-PCS; 2024-10-27)
PROC: 03HY32Z Insertion of Monitoring Device into Upper Artery, Percutaneous Approach (ICD-10-PCS; 2024-10-27)
PROC: 4A133B1 Monitoring of Arterial Pressure, Peripheral, Percutaneous Approach (ICD-10-PCS; 2024-10-27)
PROC: 4A133J1 Monitoring of Arterial Pulse, Peripheral, Percutaneous Approach (ICD-10-PCS; 2024-10-27)
PROC: 0PU43JZ Supplement Thoracic Vertebra with Synthetic Substitute, Percutaneous Approach (ICD-10-PCS; 2024-10-27)
PROC: 0PB43ZX Excision of Thoracic Vertebra, Percutaneous Approach, Diagnostic (ICD-10-PCS; 2024-10-27)
PROC: 5A09357 Assistance with Respiratory Ventilation, Less than 24 Consecutive Hours, Continuous Positive Airway Pressure (ICD-10-PCS; 2024-10-27)
PROC: XNU4356 Supplement Thoracic Vertebra with Mechanically Expandable (Paired) Synthetic Substitute, Percutaneous Approach, New Technology Group 6 (ICD-10-PCS; principal; 2024-10-27 07:30)
DX: T81.31XA Disruption of external operation (surgical) wound, not elsewhere classified, initial encounter (principal); Y84.8 Other medical procedures as the cause of abnormal reaction of the patient, or of later complication, without mention of misadventure at the time of the procedure; T81.41XA Infection following a procedure, superficial incisional surgical site, initial encounter; E78.5 Hyperlipidemia, unspecified; J44.9 Chronic obstructive pulmonary disease, unspecified; Z86.718 Personal history of other venous thrombosis and embolism; M79.7 Fibromyalgia; K21.9 Gastro-esophageal reflux disease without esophagitis; I50.32 Chronic diastolic (congestive) heart failure; I11.0 Hypertensive heart disease with heart failure; F31.30 Bipolar disorder, current episode depressed, mild or moderate severity, unspecified; K62.3 Rectal prolapse; J96.01 Acute respiratory failure with hypoxia; J96.02 Acute respiratory failure with hypercapnia; D53.9 Nutritional anemia, unspecified; E03.9 Hypothyroidism, unspecified; Z79.890 Hormone replacement therapy; E87.6 Hypokalemia; L89.129 Pressure ulcer of left upper back, unspecified stage; L89.119 Pressure ulcer of right upper back, unspecified stage; R33.8 Other retention of urine; S22.029D Unspecified fracture of second thoracic vertebra, subsequent encounter for fracture with routine healing; S22.019D Unspecified fracture of first thoracic vertebra, subsequent encounter for fracture with routine healing; F43.10 Post-traumatic stress disorder, unspecified; G25.81 Restless legs syndrome; G40.909 Epilepsy, unspecified, not intractable, without status epilepticus; I25.10 Atherosclerotic heart disease of native coronary artery without angina pectoris; I25.2 Old myocardial infarction; K58.9 Irritable bowel syndrome, unspecified; Z87.01 Personal history of pneumonia (recurrent); E55.9 Vitamin D deficiency, unspecified; G43.909 Migraine, unspecified, not intractable, without status migrainosus; K62.5 Hemorrhage of anus and rectum; K44.9 Diaphragmatic hernia without obstruction or gangrene; M81.0 Age-related osteoporosis without current pathological fracture; Z79.899 Other long term (current) drug therapy; Z82.49 Family history of ischemic heart disease and other diseases of the circulatory system; Z90.710 Acquired absence of both cervix and uterus; Z91.199 Patient's noncompliance with other medical treatment and regimen due to unspecified reason; M40.204 Unspecified kyphosis, thoracic region; S22.061A Stable burst fracture of T7-T8 vertebra, initial encounter for closed fracture; Z98.42 Cataract extraction status, left eye; Z98.41 Cataract extraction status, right eye
CPT/HCPCS: 36415; 71045; 72070; 72128; 72130; 74018; 80048; 80051; 80053; 80202; 81001; 82805; 83605; 83735; 83880; 85025; 85610; 85652; 85730; 86140; 87040; 87070; 87075; 87205; 88307; 88311; 93005; 94002; 94003; 94640; 94660; 94760; 96365; 99285

== ENCOUNTER 2024-11-06 10:07 | Inpatient (IN) | payer OTHER ==
[2024-11-06] MEDS: NALOXONE 0.4 MG/ML 1 ML VIAL IV STA (10:14)
--- NOTE | 2024-11-06 10:21 | ED ---
General Adult HPI - General Stated complaint: AMS Time Seen by Provider: 11/06/24 10:07 Source: patient, RN notes reviewed, old records reviewed - History of Present Illness Initial comments: This is a 54-year-old female who presents to the emergency department after having had thoracic surgery on . Patient was also back in for a wound infection on 226. Patient was found by her unresponsive this morning when EMS arrived she was unresponsive but eventually was able to open her eyes to verbal stimuli but was not able to interact or understand any commands. No other history is available currently - Related Data Home Medications Medication Instructions Recorded Confirmed Asenapine Maleate [Saphris] 10 mg SUBLINGUAL BID 04/30/17 10/25/24 Sertraline [Zoloft] 200 mg PO DAILY 04/30/17 10/25/24 Pantoprazole Sodium [Protonix] 40 mg PO BID 01/07/19 10/25/24 Topiramate [Trokendi Xr] 100 mg PO DAILY 04/15/21 10/25/24 cloBAZam [Sympazan] 10 mg PO BID 04/15/21 10/25/24 hydrOXYzine pamoate [Vistaril] 50 mg PO TID PRN 04/16/21 10/25/24 Albuterol Sulfate [Proair Hfa] 2 puff INHALATION RT-QID PRN 05/10/21 10/25/24 Prazosin HCl [Minipress] 2 mg PO BID@1700,2100 05/10/21 10/25/24 rOPINIRole HCL [Requip] 2 mg PO BID 05/10/21 10/25/24 Fluticasone/Umeclidin/Vilanter 1 puff INHALATION RT-DAILY 12/10/22 10/25/24 [Trelegy Ellipta 100-62.5-25] Brivaracetam [Briviact] 100 mg PO BID 07/10/23 10/25/24 Budesonide [Pulmicort] 0.5 mg INHALATION RT-BID PRN 07/27/23 10/25/24 Butalb/Acetaminophen/Caffeine 1 tab PO Q6H PRN 07/27/23 10/25/24 [Fioricet 50-325-40] Cetirizine HCl [Zyrtec] 10 mg PO DAILY 07/27/23 10/25/24 Fluticasone Nasal [place] [Flonase 1 spray EA NOSTRIL DAILY 07/27/23 10/25/24 Nasal [place]] Ipratropium-Albuterol Nebulize 3 ml INHALATION RT-QID 07/27/23 10/25/24 [Duoneb 0.5 mg-3 mg/3 ml Soln] Levothyroxine Sodium [Synthroid] 88 mcg PO DAILY 07/27/23 10/25/24 Propranolol [Inderal] 20 mg PO BID 07/27/23 10/25/24 Acetaminophen Tab [Tylenol] 500 mg PO Q6HR PRN 10/25/24 10/25/24 Albuterol Nebulized [Ventolin 2.5 mg INHALATION RT-BID 10/25/24 10/25/24 Nebulized] Cholecalciferol (Vitamin D3) 50 mcg PO DAILY 10/25/24 10/25/24 [Vitamin D3 (50 Mcg = 2000 Iu)] Cyclobenzaprine [Flexeril] 10 mg PO BID 10/25/24 10/25/24 Furosemide [Lasix] 40 mg PO DAILY 10/25/24 10/25/24 HYDROcodone/APAP 10-325MG [[place] 1 tab PO Q6H PRN 10/25/24 10/25/24 10-325] Ibuprofen [Motrin] 800 mg PO Q8H PRN 10/25/24 10/25/24 Montelukast [Singulair] 10 mg PO HS 10/25/24 10/25/24 Multivitamins, Thera [Multivitamin 1 tab PO DAILY 10/25/24 10/25/24 (formulary)] busPIRone HCL 15 mg PO TID 10/25/24 10/25/24 rOPINIRole HCL [Requip] 1 mg PO BID 10/25/24 10/25/24 Previous Rx's Medication Instructions Recorded Cyclobenzaprine [Flexeril] 10 mg PO TID #21 tab 11/02/24 Gabapentin [Neurontin] 300 mg PO TID cap 11/02/24 HYDROcodone/APAP 10-325MG [[place] 1 tab PO Q6HR PRN #28 tab 11/02/24 10-325] Sennosides/Docusate Sodium [Senna 1 each PO DAILY #20 capsule 11/02/24 Plus 8.6-50 mg Softgel] cefaDROXiL [Duricef] 500 mg PO Q12HR 5 Days #10 cap 11/02/24 Tamsulosin HCl [Flomax] 0.4 mg PO DAILY #30 capsule 11/03/24 Allergies Allergy/AdvReac Type Severity Reaction Status Date / Time bee venom protein (honey bee) Allergy Anaphylaxis Verified 11/06/24 10:20 Review of Systems ROS Statement: Those systems with pertinent positive or pertinent negative responses have been documented in the HPI. ROS Other: All systems not noted in ROS Statement are negative. Past Medical History Past Medical History: Asthma, Heart Failure, COPD, Deep Vein Thrombosis (DVT), Eye Disorder, Fibromyalgia, GERD/Reflux, Hyperlipidemia, Hypertension, Memory Impairment, Myocardial Infarction (NV), Osteoarthritis (OA), Pneumonia, Seizure Disorder, Skin Disorder, Syncope, Thyroid Disorder Additional Past Medical History / Comment(s): IBS, colitis, restless legs flexed syndrome, daily migraines, Vitamin D deficiency, benign left breast mass, gastritis, short term memory loss. Vision - "sees an orange aura." BILAT CATAR ACTS Last seizure 09/22/2024, PT STATES THAT DR. VILLALBA IS AWARE"Legs are weak and balance is off." checked bone marrow for cancer. Pt has pressure ulcer over lower incision from surgery on 09/09/2024. States she had a blood clot in leg but not sure which leg or when Last Myocardial Infarction Date:: 2009 History of Any Multi-Drug Resistant Organisms: None Reported Past Surgical History: Back Surgery, Hysterectomy, Orthopedic Surgery Additional Past Surgical History / Comment(s): D&C, bilateral knee arthroscopy. Past Anesthesia/Blood Transfusion Reactions: No Reported Reaction Additional Past Anesthesia/Blood Transfusion Reaction / Comment(s): severe anxiety coming out of anesthesia,no hx blood transfusion Past Psychological History: Anxiety, Bipolar, Depression, PTSD Smoking Status: Current every day smoker Past Alcohol Use History: None Reported Past Drug Use History: Marijuana - Past Family History Father Family Medical History: Cancer Additional Family Medical History / Comment(s): Father of pancreatic cancer at the age of 62yrs. and lung cancer Mother Family Medical History: Congestive Heart Failure (CHF) Additional Family Medical History / Comment(s): Mother of CHF at the age of 60yrs. Brother(s) Additional Family Medical History / Comment(s): Patient had 1 brother that at 5 months of age. Sister(s) Family Medical History: Deep Vein Thrombosis (DVT) Additional Family Medical History / Comment(s): Patient has one sister with history of depression and bipolar. Patient has 2 half-sisters and one at age 26 from overdose. Patient does not have any children. General Exam - General Exam Comments Initial Comments: GENERAL: Patient is well-developed and well-nourished. Patient is nontoxic and well- hydrated and is opens eyes to verbal commands but does not follow any commands. ENT: Neck is soft and supple. No significant lymphadenopathy is noted. Oropharynx is clear. Moist mucous membranes. Neck has full range of motion without eliciting any pain. EYES: The sclera were anicteric and conjunctiva were pink and moist. PULMONARY: Unlabored respirations. Good breath sounds bilaterally. No audible rales rhonchi or wheezing was noted. CARDIOVASCULAR: Patient is tachycardic at 130 beats a minute ABDOMEN: Soft and nontender with normal bowel sounds. SKIN: Skin is clear with no lesions or rashes and otherwise unremarkable. Patient does have a bandage in the thoracic region where I suspect her surgery was NEUROLOGIC: Patient is arousable with verbal stimuli but does not answer or follow any commands. MUSCULOSKELETAL: Unable to assess at this time LYMPHATICS: No significant lymphadenopathy is noted PSYCHIATRIC: Unable to assess Course Vital Signs 11/06/24 11/06/24 11/06/24 10:14 10:15 10:16 Temperature 98.1 F Pulse Rate 128 H 117 H Respiratory 20 24 26 H Rate Blood Pressure 102/62 100/61 O2 Sat by Pulse 99 100 Oximetry Fraction of Inspired Oxygen (FIO2) 11/06/24 11/06/24 11/06/24 10:21 10:23 10:32 Temperature Pulse Rate 120 H 119 H Respiratory 26 H 26 H 24 Rate Blood Pressure 103/71 95/67 O2 Sat by Pulse 100 100 Oximetry Fraction of Inspired Oxygen (FIO2) 11/06/24 11/06/24 11/06/24 10:35 10:40 10:45 Temperature Pulse Rate 120 H 118 H Respiratory 20 20 Rate Blood Pressure 89/61 100/68 O2 Sat by Pulse 100 100 Oximetry Fraction of 100 Inspired Oxygen (FIO2) 11/06/24 11/06/24 11/06/24 10:56 11:11 11:20 Temperature Pulse Rate 126 H 121 H 122 H Respiratory 24 20 20 Rate Blood Pressure 90/56 94/48 99/55 O2 Sat by Pulse 100 100 100 Oximetry Fraction of Inspired Oxygen (FIO2) 11/06/24 11/06/24 11/06/24 11:30 11:49 12:00 Temperature Pulse Rate 120 H 122 H 115 H Respiratory 20 20 20 Rate Blood Pressure 109/69 101/59 112/61 O2 Sat by Pulse 100 100 100 Oximetry Fraction of Inspired Oxygen (FIO2) 11/06/24 11/06/24 11/06/24 12:27 12:28 12:33 Temperature Pulse Rate 112 H Respiratory 18 Rate Blood Pressure 112/51 O2 Sat by Pulse 100 Oximetry Fraction of 50 50 Inspired Oxygen (FIO2) 11/06/24 11/06/24 13:00 13:35 Temperature Pulse Rate 106 H 104 H Respiratory 18 20 Rate Blood Pressure 107/60 108/72 O2 Sat by Pulse 100 100 Oximetry Fraction of Inspired Oxygen (FIO2) Procedures - Intubation Sedative: Versed Mg Given: 5 Paralytic: Succinylcholine Mg Given: 60 Laryngoscope: Perez Size: 3 ET Tube Size: 7.5 ET Tube Uncuffed: No Tube Secured Location: teeth Tube Placement Confirmation: visualized tube passing through cords, equal breath sounds bilaterally, no breath sounds over epigastrium, confirmation by capnometry Patient Tolerated Procedure: well Intubation Complications: none Medical Decision Making - Medical Decision Making EKG is interpreted by myself but EKG shows sinus tachycardia at 127 bpm IL interval 112 QRS is 90 QT interval 335 QTc is 410. Patient's EKG has no ST segment elevation. Was pt. sent in by a medical professional or institution (, PA, [employer], urgent care, hospital, or retirement...) When possible be specific @ -No Did you speak to anyone other than the patient for history (EMS, parent, family, police, friend...)? What history was obtained from this source @ -No Did you review nursing and triage notes (agree or disagree)? Why? @ -I reviewed and agree with nursing and triage notes Were old charts reviewed (outside hosp., previous admission, EMS record, old EKG, old radiological studies, urgent care reports/EKG's, retirement records)? Report findings @ -No old charts were reviewed Differential Diagnosis? @ -Differential Altered Mental Status: Hypoglycemia, DKA, hypercapnia, ETOH, overdose, CO poisoning, trauma, myxedema coma, HTN encephalopathy, infection, encephalitis, psychosis, intercranial hemorrhage, hepatic encephalopathy, meningitis, CVA, this is not meant to be an all-inclusive list EKG interpreted by me (3pts min.). @ -As above X-rays interpreted by me (1pt min.). @ -Chest x-ray shows no acute abnormality CT interpreted by me (1pt min.). @ -CT of the chest showed no PE. CT of the thoracic spine did show some air in the superior clavicle region possible infection. CT of the brain showed no acute abnormality U/S interpreted by me (1pt. min.). @ -None done What testing was considered but not performed or refused? (CT, X-rays, U/S, labs)? Why? @ -None What meds were considered but not given or refused? Why? @ -None Did you discuss the management of the patient with other professionals (professionals i.e. , PA, [employer], lab, RT, psych nurse, social science teacher, shredder tender, teacher, information assurance officer, outpatient case manager)? Give summary @ -I spoke with Dr. Starkey he agreed to admit the patient to the ICU. I spoke with Dr. Robertson and she agreed to admit the patient I wrote admitting orders. Was smoking cessation discussed for >3mins.? @ -No Was critical care preformed (if so, how long)? @ -35 minutes Were there social determinants of health that impacted care today? How? (Homelessness, low income, unemployed, alcoholism, drug addiction, transportation, low edu. Level, literacy, decrease access to med. care, halfway, rehab)? @ -No Was there de-escalation of care discussed even if they declined (Discuss DNR or withdrawal of care, Hospice)? DNR status @ -No What co-morbidities impacted this encounter? (DM, HTN, Smoking, COPD, CAD, Cancer, CVA, ARF, Chemo, Hep., AIDS, mental health diagnosis, sleep apnea, morbid obesity)? @ -None Was patient admitted / discharged? Hospital course, mention meds given and route, prescriptions, significant lab abnormalities, going to OR and other pertinent info. @ -Patient came in unresponsive patient was given Narcan in the emergency department she seemed to come around a little more and was opening her eyes to verbal however after about 15 minutes she stopped doing that and she had no gag reflex so at this point time we intubated the patient. Patient had a CAT scan of the brain thoracic spine and chest and some air was seen in supraclavicular region which is consistent was a wound infection. Patient was started on vancom ycin and cefepime. Patient was also put on propofol because she was fighting the ventilator. Undiagnosed new problem with uncertain prognosis? @ -No Drug Therapy requiring intensive monitoring for toxicity (Heparin, Nitro, Insulin, Cardizem)? @ -No Were any procedures done? @ -No Diagnosis/symptom? @ -Unresponsive Acute, or Chronic, or Acute on Chronic? @ -Acute Uncomplicated (without systemic symptoms) or Complicated (systemic symptoms)? @ -Complicated Side effects of treatment? @ -No Exacerbation, Progression, or Severe Exacerbation? @ -No Poses a threat to life or bodily function? How? (Chest pain, [place], NV, pneumonia, PE, COPD, DKA, ARF, appy, cholecystitis, CVA, Diverticulitis, Homicidal, Suicidal, threat to staff... and all critical care pts) @ -Yes this can lead to a patient being hypoxic and causing endorgan dysfunction Diagnosis/symptom? @ -Wound infection Acute, or Chronic, or Acute on Chronic? @ -Acute Uncomplicated (without systemic symptoms) or Complicated (systemic symptoms)? @ -Complicated Side effects of treatment? @ -None Exacerbation, Progression, or Severe Exacerbation] @ -No Poses a threat to life or bodily function? @ -Yes this can lead to sepsis and endorgan dysfunction - Lab Data Result diagrams: 11/06/24 10:30 11/06/24 10:30 Lab Results 11/06/24 11/06/24 11/06/24 Range/Units 10:14 10:30 10:30 WBC 9.0 (3.8-10.6) k/uL RBC 3.59 L (3.80-5.40) m/uL Hgb 10.6 L D (11.4-16.0) gm/dL Hct 37.3 (34.0-46.0) % MCV 104.0 H (80.0-100.0) fL MCH 29.6 (25.0-35.0) pg MCHC 28.5 L (31.0-37.0) g/dL RDW 15.2 (11.5-15.5) % Plt Count 800 H D (150-450) k/uL MPV 6.8 Neutrophils % 86 % Lymphocytes % 8 % Monocytes % 3 % Eosinophils % 0 % Basophils % 0 % Neutrophils # 7.8 H (1.3-7.7) k/uL Lymphocytes # 0.7 L (1.0-4.8) k/uL Monocytes # 0.3 (0-1.0) k/uL Eosinophils # 0.0 (0-0.7) k/uL Basophils # 0.0 (0-0.2) k/uL Hypochromasia Marked Macrocytosis Moderate PT 10.5 (10.0-12.5) sec INR 0.9 (<1.2) APTT 23.0 (22.0-30.0) sec Sample Site ABG pH (7.35-7.45) ABG pCO2 (35-45) mmHg ABG pO2 (83-108) mmHg ABG HCO3 (21-25) mmol/L ABG Total CO2 (19-24) mmol/L ABG O2 Saturation (94-97) % ABG Base Excess mmol/L James Test Hemoglobin (11.4-16.0) gm/dL FiO2 % Sodium (137-145) mmol/L Potassium (3.5-5.1) mmol/L Chloride (98-107) mmol/L Carbon Dioxide (22-30) mmol/L Anion Gap mmol/L BUN (7-17) mg/dL Creatinine (0.52-1.04) mg/dL Est GFR (CKD-EPI)AfAm (>60 ml/min/1.73 sqM) Est GFR (CKD-EPI)NonAf (>60 ml/min/1.73 sqM) Glucose (74-99) mg/dL POC Glucose (mg/dL) 119 H (70-110) mg/dL POC Glu Sport Intern ID December Lactic Ac Sepsis Rflx Plasma Lactic Acid Memo (0.7-2.0) mmol/L Calcium (8.4-10.2) mg/dL Total Bilirubin (0.2-1.3) mg/dL AST (14-36) U/L ALT (4-34) U/L Alkaline Phosphatase (38-126) U/L Ammonia (<30) umol/L Troponin I (0.000-0.034) ng/mL Total Protein (6.3-8.2) g/dL Albumin (3.5-5.0) g/dL Urine Color Urine Appearance (Clear) Urine pH (5.0-8.0) Ur Specific [place] (1.001-1.035) Urine Protein (Negative) Urine Glucose (UA) (Negative) Urine Ketones (Negative) Urine Blood (Negative) Urine Nitrite (Negative) Urine Bilirubin (Negative) Urine Urobilinogen (<2.0) mg/dL Ur Leukocyte Esterase (Negative) Urine RBC (0-5) /hpf Urine WBC (0-5) /hpf Ur Squamous Epith Cells (0-4) /hpf Urine Mucus (None) /hpf Urine Opiates Screen (NotDetected) Ur Oxycodone Screen (NotDetected) Urine Methadone Screen (NotDetected) Ur Barbiturates Screen (NotDetected) U Tricyclic Antidepress (NotDetected) Ur Phencyclidine Scrn (NotDetected) Ur Amphetamines Screen (NotDetected) U Methamphetamines Scrn (NotDetected) U Benzodiazepines Scrn (NotDetected) Urine Cocaine Screen (NotDetected) U Marijuana (THC) Screen (NotDetected) 11/06/24 11/06/24 11/06/24 Range/Units 10:30 10:30 10:30 WBC (3.8-10.6) k/uL RBC (3.80-5.40) m/uL Hgb (11.4-16.0) gm/dL Hct (34.0-46.0) % MCV (80.0-100.0) fL MCH (25.0-35.0) pg MCHC (31.0-37.0) g/dL RDW (11.5-15.5) % Plt Count (150-450) k/uL MPV Neutrophils % % Lymphocytes % % Monocytes % % Eosinophils % % Basophils % % Neutrophils # (1.3-7.7) k/uL Lymphocytes # (1.0-4.8) k/uL Monocytes # (0-1.0) k/uL Eosinophils # (0-0.7) k/uL Basophils # (0-0.2) k/uL Hypochromasia Macrocytosis PT (10.0-12.5) sec INR (<1.2) APTT (22.0-30.0) sec Sample Site ABG pH (7.35-7.45) ABG pCO2 (35-45) mmHg ABG pO2 (83-108) mmHg ABG HCO3 (21-25) mmol/L ABG Total CO2 (19-24) mmol/L ABG O2 Saturation (94-97) % ABG Base Excess mmol/L James Test Hemoglobin (11.4-16.0) gm/dL FiO2 % Sodium 144 (137-145) mmol/L Potassium 4.1 (3.5-5.1) mmol/L Chloride 104 (98-107) mmol/L Carbon Dioxide 27 (22-30) mmol/L Anion Gap 13 mmol/L BUN 16 (7-17) mg/dL Creatinine 0.96 (0.52-1.04) mg/dL Est GFR (CKD-EPI)AfAm 79 (>60 ml/min/1.73 sqM) Est GFR (CKD-EPI)NonAf 68 (>60 ml/min/1.73 sqM) Glucose 111 H (74-99) mg/dL POC Glucose (mg/dL) (70-110) mg/dL POC Glu Sport Intern ID Lactic Ac Sepsis Rflx Plasma Lactic Acid Memo 3.0 H* (0.7-2.0) mmol/L Calcium 9.6 (8.4-10.2) mg/dL Total Bilirubin 0.5 (0.2-1.3) mg/dL AST 86 H (14-36) U/L ALT 39 H (4-34) U/L Alkaline Phosphatase 187 H (38-126) U/L Ammonia 33 H (<30) umol/L Troponin I (0.000-0.034) ng/mL Total Protein 7.7 (6.3-8.2) g/dL Albumin 3.8 (3.5-5.0) g/dL Urine Color Light Yellow Urine Appearance Clear (Clear) Urine pH 6.0 (5.0-8.0) Ur Specific [place] 1.016 (1.001-1.035) Urine Protein 1+ H (Negative) Urine Glucose (UA) Negative (Negative) Urine Ketones Negative (Negative) Urine Blood Negative (Negative) Urine Nitrite Negative (Negative) Urine Bilirubin Negative (Negative) Urine Urobilinogen <2.0 (<2.0) mg/dL Ur Leukocyte Esterase Negative (Negative) Urine RBC 1 (0-5) /hpf Urine WBC 2 (0-5) /hpf Ur Squamous Epith Cells 3 (0-4) /hpf Urine Mucus Rare H (None) /hpf Urine Opiates Screen Detected H (NotDetected) Ur Oxycodone Screen Not Detected (NotDetected) Urine Methadone Screen Not Detected (NotDetected) Ur Barbiturates Screen Detected H (NotDetected) U Tricyclic Antidepress Detected H (NotDetected) Ur Phencyclidine Scrn Not Detected (NotDetected) Ur Amphetamines Screen Not Detected (NotDetected) U Methamphetamines Scrn Not Detected (NotDetected) U Benzodiazepines Scrn Detected H (NotDetected) Urine Cocaine Screen Not Detected (NotDetected) U Marijuana (THC) Screen Detected H (NotDetected) 11/06/24 11/06/24 11/06/24 Range/Units 10:30 11:10 12:04 WBC (3.8-10.6) k/uL RBC (3.80-5.40) m/uL Hgb (11.4-16.0) gm/dL Hct (34.0-46.0) % MCV (80.0-100.0) fL MCH (25.0-35.0) pg MCHC (31.0-37.0) g/dL RDW (11.5-15.5) % Plt Count (150-450) k/uL MPV Neutrophils % % Lymphocytes % % Monocytes % % Eosinophils % % Basophils % % Neutrophils # (1.3-7.7) k/uL Lymphocytes # (1.0-4.8) k/uL Monocytes # (0-1.0) k/uL Eosinophils # (0-0.7) k/uL Basophils # (0-0.2) k/uL Hypochromasia Macrocytosis PT (10.0-12.5) sec INR (<1.2) APTT (22.0-30.0) sec Sample Site rbrach ABG pH 7.07 L* (7.35-7.45) ABG pCO2 89 H* (35-45) mmHg ABG pO2 34 L* (83-108) mmHg ABG HCO3 26 H (21-25) mmol/L ABG Total CO2 28 H (19-24) mmol/L ABG O2 Saturation 37.1 L (94-97) % ABG Base Excess -4.8 mmol/L James Test yes Hemoglobin 7.6 L (11.4-16.0) gm/dL FiO2 100 % Sodium (137-145) mmol/L Potassium (3.5-5.1) mmol/L Chloride (98-107) mmol/L Carbon Dioxide (22-30) mmol/L Anion Gap mmol/L BUN (7-17) mg/dL Creatinine (0.52-1.04) mg/dL Est GFR (CKD-EPI)AfAm (>60 ml/min/1.73 sqM) Est GFR (CKD-EPI)NonAf (>60 ml/min/1.73 sqM) Glucose (74-99) mg/dL POC Glucose (mg/dL) (70-110) mg/dL POC Glu Sport Intern ID Lactic Ac Sepsis Rflx Y Plasma Lactic Acid Memo (0.7-2.0) mmol/L Calcium (8.4-10.2) mg/dL Total Bilirubin (0.2-1.3) mg/dL AST (14-36) U/L ALT (4-34) U/L Alkaline Phosphatase (38-126) U/L Ammonia (<30) umol/L Troponin I 0.044 H* (0.000-0.034) ng/mL Total Protein (6.3-8.2) g/dL Albumin (3.5-5.0) g/dL Urine Color Urine Appearance (Clear) Urine pH (5.0-8.0) Ur Specific [place] (1.001-1.035) Urine Protein (Negative) Urine Glucose (UA) (Negative) Urine Ketones (Negative) Urine Blood (Negative) Urine Nitrite (Negative) Urine Bilirubin (Negative) Urine Urobilinogen (<2.0) mg/dL Ur Leukocyte Esterase (Negative) Urine RBC (0-5) /hpf Urine WBC (0-5) /hpf Ur Squamous Epith Cells (0-4) /hpf Urine Mucus (None) /hpf Urine Opiates Screen (NotDetected) Ur Oxycodone Screen (NotDetected) Urine Methadone Screen (NotDetected) Ur Barbiturates Screen (NotDetected) U Tricyclic Antidepress (NotDetected) Ur Phencyclidine Scrn (NotDetected) Ur Amphetamines Screen (NotDetected) U Methamphetamines Scrn (NotDetected) U Benzodiazepines Scrn (NotDetected) Urine Cocaine Screen (NotDetected) U Marijuana (THC) Screen (NotDetected) 11/06/24 Range/Units 12:20 WBC (3.8-10.6) k/uL RBC (3.80-5.40) m/uL Hgb (11.4-16.0) gm/dL Hct (34.0-46.0) % MCV (80.0-100.0) fL MCH (25.0-35.0) pg MCHC (31.0-37.0) g/dL RDW (11.5-15.5) % Plt Count (150-450) k/uL MPV Neutrophils % % Lymphocytes % % Monocytes % % Eosinophils % % Basophils % % Neutrophils # (1.3-7.7) k/uL Lymphocytes # (1.0-4.8) k/uL Monocytes # (0-1.0) k/uL Eosinophils # (0-0.7) k/uL Basophils # (0-0.2) k/uL Hypochromasia Macrocytosis PT (10.0-12.5) sec INR (<1.2) APTT (22.0-30.0) sec Sample Site lrad ABG pH 7.20 L (7.35-7.45) ABG pCO2 61 H (35-45) mmHg ABG pO2 >420 H (83-108) mmHg ABG HCO3 24 (21-25) mmol/L ABG Total CO2 26 H (19-24) mmol/L ABG O2 Saturation 100.0 H (94-97) % ABG Base Excess -3.9 mmol/L James Test Yes Hemoglobin 7.7 L (11.4-16.0) gm/dL FiO2 100 % Sodium (137-145) mmol/L Potassium (3.5-5.1) mmol/L Chloride (98-107) mmol/L Carbon Dioxide (22-30) mmol/L Anion Gap mmol/L BUN (7-17) mg/dL Creatinine (0.52-1.04) mg/dL Est GFR (CKD-EPI)AfAm (>60 ml/min/1.73 sqM) Est GFR (CKD-EPI)NonAf (>60 ml/min/1.73 sqM) Glucose (74-99) mg/dL POC Glucose (mg/dL) (70-110) mg/dL POC Glu Sport Intern ID Lactic Ac Sepsis Rflx Plasma Lactic Acid Memo (0.7-2.0) mmol/L Calcium (8.4-10.2) mg/dL Total Bilirubin (0.2-1.3) mg/dL AST (14-36) U/L ALT (4-34) U/L Alkaline Phosphatase (38-126) U/L Ammonia (<30) umol/L Troponin I (0.000-0.034) ng/mL Total Protein (6.3-8.2) g/dL Albumin (3.5-5.0) g/dL Urine Color Urine Appearance (Clear) Urine pH (5.0-8.0) Ur Specific [place] (1.001-1.035) Urine Protein (Negative) Urine Glucose (UA) (Negative) Urine Ketones (Negative) Urine Blood (Negative) Urine Nitrite (Negative) Urine Bilirubin (Negative) Urine Urobilinogen (<2.0) mg/dL Ur Leukocyte Esterase (Negative) Urine RBC (0-5) /hpf Urine WBC (0-5) /hpf Ur Squamous Epith Cells (0-4) /hpf Urine Mucus (None) /hpf Urine Opiates Screen (NotDetected) Ur Oxycodone Screen (NotDetected) Urine Methadone Screen (NotDetected) Ur Barbiturates Screen (NotDetected) U Tricyclic Antidepress (NotDetected) Ur Phencyclidine Scrn (NotDetected) Ur Amphetamines Screen (NotDetected) U Methamphetamines Scrn (NotDetected) U Benzodiazepines Scrn (NotDetected) Urine Cocaine Screen (NotDetected) U Marijuana (THC) Screen (NotDetected) Disposition Clinical Impression: Unresponsive, Wound infection Disposition: ADMITTED IP TO THIS HOSP Referrals: Harpreet Ballard [Primary Care Provider] - 1-2 days Time of Disposition: 14:06
[2024-11-06] MEDS: NALOXONE 0.4 MG/ML 1 ML VIAL IVP STA (10:23)
[2024-11-06] MEDS: SODIUM CHLORIDE 0.9% 1,000 ML IV ONE ×3 (10:23→22:52)
[2024-11-06 10:26] LABS: Glucose,Whole Blood 119 mg/dL (70-110)
[2024-11-06] MEDS: MIDAZOLAM 1 MG/ML 5 ML VIAL IV STA (10:33)
[2024-11-06] MEDS: SUCCINYLCHOLINE CHLORIDE 200 MG/10 ML VIAL IV STA (10:33)
[2024-11-06 10:52] LABS: Basophils % (A) 0 %; Eosinophils % (A) 0 %; HCT 37.3 % (34.0-46.0); Hypochromasia Marked; Lymphocytes # (A) 0.7 k/uL (1.0-4.8); Lymphocytes % (A) 8 %; MCH 29.6 pg (25.0-35.0); MCHC 28.5 g/dL (31.0-37.0); Macrocytosis Moderate; Mean Platelet Volume 6.8; Monocytes # (A) 0.3 k/uL (0-1.0); Monocytes % (A) 3 %; Neutrophils # (A) 7.8 k/uL (1.3-7.7); Neutrophils % (A) 86 %; RBC 3.59 m/uL (3.80-5.40); RDW 15.2 % (11.5-15.5)
--- NOTE | 2024-11-06 10:56 | XR ---
EXAMINATION TYPE: XR chest 1V portable DATE OF EXAM: 11/06/2024 10:49 AM COMPARISON: Chest radiographs from 11/01/2024 TECHNIQUE: XR chest 1V portable Portable AP radiograph of the chest. CLINICAL INDICATION:Female, 54 years old with history of altered mental status; FINDINGS: Lungs/Pleura: No pleural effusion or pneumothorax. Hyperinflation. Bilateral upper lung interstitial opacities. Heart/mediastinum: Cardiomediastinal silhouette is unremarkable. Musculoskeletal: No acute osseous pathology. Extensive postsurgical changes of the cervicothoracic sp ine Other findings: None Lines/Tubes: Endotracheal tube with distal tip 2.1 cm above the sergo Nasogastric tube with its distal tip and side-port projecting under the diaphragm. IMPRESSION: 1. Bilateral upper lung interstitial opacities concerning for pneumonia versus volume overload. 2. Appropriate position of support tubes. 3. COPD changes. [facility], , 11/06/2024 10:53 AM
[2024-11-06] MEDS: LORazepam 2 MG/ML INJ IV STA (11:00)
[2024-11-06 11:03] LABS: ALT 39 U/L (4-34); AST 86 U/L (14-36); African American GFR (CKD) 79 (>60 ml/min/1.73 sqM); Albumin 3.8 g/dL (3.5-5.0); Alkaline Phosphatase 187 U/L (38-126); Anion Gap 13 mmol/L; Blood Urea Nitrogen 16 mg/dL (7-17); Calcium 9.6 mg/dL (8.4-10.2); Carbon Dioxide 27 mmol/L (22-30); Chloride 104 mmol/L (98-107); Glucose 111 mg/dL (74-99); Non-African American GFR(CKD) 68 (>60 ml/min/1.73 sqM); Potassium 4.1 mmol/L (3.5-5.1); Sodium 144 mmol/L (137-145); Total Bilirubin 0.5 mg/dL (0.2-1.3); Total Protein 7.7 g/dL (6.3-8.2)
[2024-11-06 11:04] LABS: INR 0.9 (<1.2); Prothrombin Time 10.5 sec (10.0-12.5)
[2024-11-06 11:18] LABS: HGB 10.6 gm/dL (11.4-16.0); Platelet Count 800 k/uL (150-450)
--- NOTE | 2024-11-06 11:19 | CT ---
EXAMINATION TYPE: CT brain wo con CT DLP: 1168.4 mGycm, Automated exposure control for dose reduction was used. DATE OF EXAM: 11/06/2024 11:11 AM COMPARISON: MRI brain 06/28/2018 CLINICAL INDICATION:Female, 54 years old with history of Unresponsive, UNRESPONSIVE RECENT SX ON BACK TECHNIQUE: Brain: Multiple axial CT images of the brain were obtained without IV contrast. . Coronal and sagitta l reformats reviewed. FINDINGS: Brain: Extra-axial spaces: No abnormal extra-axial fluid collections. Ventricular system: Within normal limits Cerebral parenchyma: No acute intraparenchymal hemorrhage or mass effect. The dominguez-white junction is well differentiated. Scattered hypoattenuating areas are seen within the periventricular white matte r. Cerebellum: Unremarkable. Mass effect: No evidence of midline shift. Intracranial vasculature: unremarkable Soft tissues: Normal. Calvarium/osseous structures: No depressed skull fracture. Partial visualization of cervical fusion h ardware with stranding gas in the posterior paravertebral cervical region. Paranasal sinuses and mastoid air cells: Mastoid air cells are clear. Mild mucosal thickening of the posterior ethmoid sinuses. Visualized orbits: Orbital contents are intact. Other: Partial visualization of orogastric and endotracheal tubes. IMPRESSION: 1. No acute intracranial process. 2. Nonspecific white matter changes, likely secondary to chronic small vessel ischemic disease. 3. Postsurgical changes of the visualized cervical spine with gas identified within the paravertebral soft tissues. This raises concern for infectious process. Consider further evaluation with CT cervic al spine. [facility], , 11/06/2024 11:16 AM
--- NOTE | 2024-11-06 11:30 | CT ---
EXAMINATION TYPE: CT chest angio for PE CT DLP: 395.8 mGycm, Automated exposure control for dose reduction was used. DATE OF EXAM: 11/06/2024 11:13 AM COMPARISON: CTA chest 07/27/2023. Chest radiograph from same day. CLINICAL INDICATION:Female, 54 years old with history of Unresponsive; UNRESPONSIVE RECENT BACK SX TECHNIQUE/CONTRAST: CTA scan of the thorax is performed with IV Contrast, patient injected with 100 mL of Isovue 370, pul monary embolism protocol. MIP images are created and reviewed. FINDINGS: Pulmonary Artery: There is no evidence for a filling defect within the pulmonary vasculature to sugge st acute pulmonary embolism. The pulmonary artery is of normal size. Lungs/Pleura: No pleural effusion. Centrilobular emphysematous changes. Minimal bilateral upper lobe reticular opacities with right greater than left. Posterior right upper lobe patchy consolidative opa city. No discrete pneumothorax. Anterior medial right upper lobe paraseptal blebs image changes. Airway: Endotracheal tube identified with distal tip trachea approximately 2.1 cm above the sergo. Heart: Heart is within normal limits for size. Small anterior pericardial effusion. Vasculature: No evidence of aortic aneurysm. Mediastinum: No gross evidence of adenopathy. Musculoskeletal: No acute osseous abnormalities. Multilevel vertebral augmentation changes redemonstr ated. Central compression deformity of the L1 vertebral body redemonstrated. Extensive postsurgical c hanges of the visualized cervical thoracic and lumbar spine with bilateral pedicle screws and rods. T his creates streak artifact which limits evaluation. No osseous erosions. No gross evidence of organi zed fluid collection. No paravertebral soft tissue gas identified. Remote bilateral rib fractures. Po stsurgical change versus remote fracture involving the posterior lateral right eighth rib. Soft Tissues: Diffuse anasarca. Few foci of gas identified within the left supraclavicular region and within the left anterior chest wall. Possibly within venous vascular structure. Lower neck: No significant findings. Upper Abdomen: Enteric tube terminates appropriately within the stomach. Nonobstructive right renal l ower pole 5 mm calculus. Nonobstructive punctate left renal calculus. IMPRESSION: 1. No evidence of pulmonary embolism. 2. Posterior upper lobe patchy opacity with bilateral upper lobe reticular opacities with right great er than left. Raises concern for an infectious process. 3. Few foci of gas identified within the left supraclavicular region and left anterior chest wall pos sibly within venous vasculature. Could be from IV access versus infectious process. 4. Appropriate position of support tubes. 5. COPD changes. [facility], , 11/06/2024 11:27 AM
[2024-11-06 11:41] LABS: Appearance,Urine Clear (Clear); Bilirubin,Urine Negative (Negative); Blood,Urine Negative (Negative); Color,Urine Light Yellow; Glucose,Urine (UA) Negative (Negative); Ketones,Urine Negative (Negative); Leukocyte Esterase,Urine Negative (Negative); Mucus,Urine Rare /hpf; Nitrite,Urine Negative (Negative); Protein,Urine 1+ (Negative); RBC,Urine 1 /hpf (0-5); Specific Gravity,Urine 1.016 (1.001-1.035); Squamous Epithelial Cell,Urine 3 /hpf (0-4); Urobilinogen,Urine <2.0 mg/dL (<2.0); WBC,Urine 2 /hpf (0-5)
--- NOTE | 2024-11-06 11:44 | CT ---
EXAMINATION TYPE: CT thoracic spine w con CT DLP: 351.7 mGycm, Automated exposure control for dose reduction was used. DATE OF EXAM: 11/06/2024 11:31 AM COMPARISON: CTA chest 11/06/2024, CT thoracic spine 10/29/2024, 10/25/2024, 10/12/2024, 09/10/2024. CLINICAL INDICATION:Female, 54 years old with history of Postop wound; PHH, RECENT SX, POST OP WOUND THORACIC, SCAN THROUGH HARDWARE PER DR, pain TECHNIQUE: Axial images of the thoracic spine were obtained without contrast. Coronal and sagittal re formats were performed. FINDINGS: Extensive postsurgical changes of the visualized cervical, thoracic, lumbar spine. This cre ates extensive streak artifact which limits evaluation There are bilateral pedicle screws and rods in volving the T1-T7 vertebral bodies and the T8-T11 vertebral bodies and the L2 and L3 vertebral bodies . Single left-sided pedicle screw involving the L1 vertebral body. Partial visualization of anterior cervical fusion hardware. Vertebral augmentation changes involving the T3, T6, T7, T8, T9, T10, and L 3 vertebral bodies. No significant extravasation of contrast identified. Remote stable central compression deformity of the L1 vertebral body with approximately 1 mm retropul samantha. There is approximately 60% height loss centrally. Remote superior endplate compression deformit y of the T8 vertebral body with approximately 5% height loss and no retropulsion. Vertebral augmentat ion changes at this level. Disc spacer identified at T3-T4. All the hardware appears intact with appr opriate alignment. Similar anterior wedge compression deformity of the C7 vertebral body without retr opulsion. Approximately 10% height loss. No new fractures or vertebral body height loss. No osseous erosions identified. No paravertebral soft tissue gas or definitive organized fluid collections identified. No gross evidence for significant c entral canal or neural foraminal stenosis within limitations. Diffuse anasarca. No visualized soft ti ssue wound is identified. IMPRESSION: 1. Extensive postsurgical changes of the visualized cervical thoracic lumbar spine. This creates sig nificant streak artifact which limits evaluation. No gross evidence for complication. 2. Stable remote fractures of the C7 and L1 vertebral bodies with additional remote fracture involvi ng superior endplate of the T8 vertebral body with vertebral augmentation changes. 3. Please refer to concurrent CTA chest for other findings. [facility], , 11/06/2024 11:41 AM
[2024-11-06 11:51] LABS: Amphetamine Screen,Urine Not Detected (NotDetected); Barbiturate Screen,Urine Detected (NotDetected); Benzodiazepines Screen,Urine Detected (NotDetected); Cocaine Screen,Urine Not Detected (NotDetected); Methadone Screen, Urine Not Detected (NotDetected); Opiate Screen,Urine Detected (NotDetected); Oxycodone Screen, Urine Not Detected (NotDetected); Phencyclidine Screen,Urine Not Detected (NotDetected); Tricyclic Antidepressant,Urine Detected (NotDetected); Urn Cannabinoid Scrn Detected (NotDetected)
[2024-11-06] MEDS: HYDROmorphone 0.5 MG/0.5 ML SYRINGE IVP PRN (11:55)
[2024-11-06 12:08] LABS: ABG Base Excess -4.8 mmol/L; ABG HCO3 26 mmol/L (21-25); ABG Oxygen Saturation 37.1 % (94-97); ABG TCO2 28 mmol/L (19-24)
[2024-11-06 12:21] LABS: ABG PH 7.07 (7.35-7.45)
[2024-11-06] MEDS ORDERED: VANCOMYCIN IV PER PHARMACY 1 EACH MISC MISCELLANE PRN (12:21)
[2024-11-06 12:22] LABS: ABG Base Excess -3.9 mmol/L; ABG HCO3 24 mmol/L (21-25); ABG PCO2 61 mmHg (35-45); ABG TCO2 26 mmol/L (19-24); Allen Test Performed? Yes
[2024-11-06 12:22] LABS: ABG PCO2 89 mmHg (35-45); ABG PO2 34 mmHg (83-108); Allen Test Performed? yes
[2024-11-06] MEDS: HYDROmorphone 0.5 MG/0.5 ML SYRINGE IVP STA (12:22)
[2024-11-06 12:27] LABS: ABG PO2 >420 mmHg (83-108)
[2024-11-06] MEDS: VANCOMYCIN 750 MG in SODIUM CHLORIDE 0.9% 250 ML IVPB ONE (13:23)
[2024-11-06] MEDS: CEFEPIME 2 GM in SODIUM CHLORIDE 0.9% 100 ML IVPB STA (13:25)
[2024-11-06] MEDS ORDERED: NALOXONE 0.4 MG/ML 1 ML VIAL IV PRN (14:06)
--- NOTE | 2024-11-06 15:10 | P.CNPUL ---
History of Present Illness Consult date: 11/06/24 Requesting physician: Tavia Masterson Reason for consult: other (Ventilator/critical care management) Chief complaint: Altered mental status History of present illness: This is a 54-year-old female patient with a known history of COPD, hypertension, hyperlipidemia, coronary disease, congestive heart failure, DVT, hypothyroidism, seizure disorder, multiple previous back surgeries. She had most recently undergone a C2-T7 posterior lateral fusion on 09/09/2024. She developed a significant infection and wound dehiscence and was back here in the hospital and had undergone irrigation and excisional debridement of a thoracic spine wound on 10/27/2024 and discharged to home on 11/02/2024. She was brought back here to the emergency room earlier this morning after being found obtunded and unresponsive by her . She was intubated here in the emergency department. Chest x- ray revealed bilateral upper interstitial opacities concerning for pneumonia versus fluid volume overload. Evidence of COPD. Endotracheal tube and nasogastric tubes in position. CT scan of the brain revealed no acute intracranial process. CT angiogram ruled out pulmonary embolism. There is bilateral upper lobe reticular opacities with right greater than left raising concerns for infection. Few foci of gas identified within the left supraclavicular region and left anterior chest wall possibly with venous vas culature. CT scan of the thoracic spine reveals extensive postsurgical changes. No gross evidence of complication. White count 9.0. Hemoglobin 10.6. Platelets 800,000. INR 0.9. Sodium 144. Potassium 4.0. Bicarb 27. BUN 16. Creatinine 0.96. Glucose 111. Lactic acid 3.0. AST 86. ALT 39. Troponin 0.044. Urinalysis clean. Drug urine screen is positive for opiates, barbiturates, antidepressants, benzodiazepines and marijuana. Initial arterial blood gases on 100% FiO2 revealed a PaO2 of 34, pCO2 89 and a pH of 7.07. Follow-up blood gases on the mechanical ventilator on 100% revealed a PaO2 greater than 420, pCO2 61 and a pH of 7.20. Her current vent settings are assist-control mode at a rate of 26, tidal volume 320 and FiO2 50% and a PEEP of 5. She is sedated on propofol at 50 mcg/kg/h. She has been initiated on vancomycin and cefepime. Received Narcan without improvement initially. She received 2 L of fluid resuscitation. Review of Systems ROS unobtainable: due to endotracheal tube Past Medical History Past Medical History: Asthma, Heart Failure, COPD, Deep Vein Thrombosis (DVT), Eye Disorder, Fibromyalgia, GERD/Reflux, Hyperlipidemia, Hypertension, Memory Impairment, Myocardial Infarction (NH), Osteoarthritis (OA), Pneumonia, Seizure Disorder, Skin Disorder, Syncope, Thyroid Disorder Additional Past Medical History / Comment(s): IBS, colitis, restless legs flexed syndrome, daily migraines, Vitamin D deficiency, benign left breast mass, gastritis, short term memory loss. Vision - "sees an orange aura." BILAT CATARACTS Last seizure 09/22/2024, PT STATES THAT DR. VILLALBA IS AWARE"Legs are weak and balance is off." checked bone marrow for cancer. Pt has pressure ulcer over lower incision from surgery on 09/09/2024. States she had a blood clot in leg but not sure which leg or when Last Myocardial Infarction Date:: 2009 History of Any Multi-Drug Resistant Organisms: None Reported Past Surgical History: Back Surgery, Hysterectomy, Orthopedic Surgery Additional Past Surgical History / Comment(s): D&C, bilateral knee arthroscopy. Past Anesthesia/Blood Transfusion Reactions: No Reported Reaction Additional Past Anesthesia/Blood Transfusion Reaction / Comment(s): severe anxiety coming out of anesthesia,no hx blood transfusion Past Psychological History: Anxiety, Bipolar, Depression, PTSD Smoking Status: Current every day smoker Past Alcohol Use History: None Reported Past Drug Use History: Marijuana - Past Family History Father Family Medical History: Cancer Additional Family Medical History / Comment(s): Father of pancreatic cancer at the age of 62yrs. and lung cancer Mother Family Medical History: Congestive Heart Failure (CHF) Additional Family Medical History / Comment(s): Mother of CHF at the age of 60yrs. Brother(s) Additional Family Medical History / Comment(s): Patient had 1 brother that at 5 months of age. Sister(s) Family Medical History: Deep Vein Thrombosis (DVT) Additional Family Medical History / Comment(s): Patient has one sister with history of depression and bipolar. Patient has 2 half-sisters and one at age 26 from overdose. Patient does not have any children. Medications and Allergies Home Medications Medication Instructions Recorded Confirmed Type Asenapine Maleate [Saphris] 10 mg SUBLINGUAL BID 04/30/17 10/25/24 History Sertraline [Zoloft] 200 mg PO DAILY 04/30/17 10/25/24 History Pantoprazole Sodium [Protonix] 40 mg PO BID 01/07/19 10/25/24 History Topiramate [Trokendi Xr] 100 mg PO DAILY 04/15/21 10/25/24 History cloBAZam [Sympazan] 10 mg PO BID 04/15/21 10/25/24 History hydrOXYzine pamoate [Vistaril] 50 mg PO TID PRN 04/16/21 10/25/24 History Albuterol Sulfate [Proair Hfa] 2 puff INHALATION RT-QID PRN 05/10/21 10/25/24 History Prazosin HCl [Minipress] 2 mg PO BID@1700,2100 05/10/21 10/25/24 History rOPINIRole HCL [Requip] 2 mg PO BID 05/10/21 10/25/24 History Fluticasone/Umeclidin/Vilanter 1 puff INHALATION RT-DAILY 12/10/22 10/25/24 History [Trelegy Ellipta 100-62.5-25] Brivaracetam [Briviact] 100 mg PO BID 07/10/23 10/25/24 History Budesonide [Pulmicort] 0.5 mg INHALATION RT-BID PRN 07/27/23 10/25/24 History Butalb/Acetaminophen/Caffeine 1 tab PO Q6H PRN 07/27/23 10/25/24 History [Fioricet 50-325-40] Cetirizine HCl [Zyrtec] 10 mg PO DAILY 07/27/23 10/25/24 History Fluticasone Nasal [place] [Flonase 1 spray EA NOSTRIL DAILY 07/27/23 10/25/24 History Nasal Porter] Ipratropium-Albuterol Nebulize 3 ml INHALATION RT-QID 07/27/23 10/25/24 History [Duoneb 0.5 mg-3 mg/3 ml Soln] Levothyroxine Sodium [Synthroid] 88 mcg PO DAILY 07/27/23 10/25/24 History Propranolol [Inderal] 20 mg PO BID 07/27/23 10/25/24 History Acetaminophen Tab [Tylenol] 500 mg PO Q6HR PRN 10/25/24 10/25/24 History Albuterol Nebulized [Ventolin 2.5 mg INHALATION RT-BID 10/25/24 10/25/24 History Nebulized] Cholecalciferol (Vitamin D3) 50 mcg PO DAILY 10/25/24 10/25/24 History [Vitamin D3 (50 Mcg = 2000 Iu)] Cyclobenzaprine [Flexeril] 10 mg PO BID 10/25/24 10/25/24 History Furosemide [Lasix] 40 mg PO DAILY 10/25/24 10/25/24 History HYDROcodone/APAP 10-325MG [[place] 1 tab PO Q6H PRN 10/25/24 10/25/24 History 10-325] Ibuprofen [Motrin] 800 mg PO Q8H PRN 10/25/24 10/25/24 History Montelukast [Singulair] 10 mg PO HS 10/25/24 10/25/24 History Multivitamins, Thera [Multivitamin 1 tab PO DAILY 10/25/24 10/25/24 History (formulary)] busPIRone HCL 15 mg PO TID 10/25/24 10/25/24 History rOPINIRole HCL [Requip] 1 mg PO BID 10/25/24 10/25/24 History Cyclobenzaprine [Flexeril] 10 mg PO TID #21 tab 11/02/24 Rx Gabapentin [Neurontin] 300 mg PO TID cap 11/02/24 Rx HYDROcodone/APAP 10-325MG [[place] 1 tab PO Q6HR PRN #28 tab 11/02/24 Rx 10-325] Sennosides/Docusate Sodium [Senna 1 each PO DAILY #20 capsule 11/02/24 Rx Plus 8.6-50 mg Softgel] cefaDROXiL [Duricef] 500 mg PO Q12HR 5 Days #10 cap 11/02/24 Rx Tamsulosin HCl [Flomax] 0.4 mg PO DAILY #30 capsule 11/03/24 Rx Allergies Allergy/AdvReac Type Severity Reaction Status Date / Time bee venom protein (honey bee) Allergy Anaphylaxis Verified 11/06/24 10:20 Physical Exam Vitals: Vital Signs Temp Pulse Resp BP Pulse Ox FiO2 11/06/24 14:00 102 H 18 111/67 100 11/06/24 13:35 104 H 20 108/72 100 11/06/24 13:00 106 H 18 107/60 100 11/06/24 12:33 50 11/06/24 12:28 50 11/06/24 12:27 112 H 18 112/51 100 11/06/24 12:00 115 H 20 112/61 100 11/06/24 11:49 122 H 20 101/59 100 11/06/24 11:30 120 H 20 109/69 100 11/06/24 11:20 122 H 20 99/55 100 11/06/24 11:11 121 H 20 94/48 100 11/06/24 10:56 126 H 24 90/56 11/06/24 10:45 118 H 20 100/68 11/06/24 10:40 120 H 20 89/61 11/06/24 10:35 100 11/06/24 10:32 119 H 24 95/67 11/06/24 10:23 26 H 11/06/24 10:21 120 H 26 H 103/71 11/06/24 10:16 117 H 26 H 100/61 11/06/24 10:15 98.1 F 128 H 24 102/62 99 11/06/24 10:14 20 Intake and Output 11/05/24 11/06/24 11/06/24 22:59 06:59 14:59 Intake Total 7.794 Balance 7.794 Intake: Intake, IV Titration 7.794 Amount propofoL 1,000 mg In 7.794 Empty Bag 1 bag @ 15 MCG/ KG/MIN 4.291 mls/hr IV . [id number] [facility] Rx#:[id number] Other: Weight 47.673 kg GENERAL EXAM: Intubated, sedated, thin 54-year-old female, on the ventilator, in no apparent distress. HEAD: Normocephalic. EYES: Normal reaction of pupils, equal size. NOSE: Clear with pink turbinates. THROAT: No erythema or exudates. NECK: No masses, no JVD. CHEST: No chest wall deformity. LUNGS: Equal air entry with no crackles, wheeze, rhonchi or dullness. CVS: S1 and S2 normal with no audible murmur, regular rhythm. ABDOMEN: No hepatosplenomegaly, normal bowel sounds, no guarding or rigidity. SPINE: No scoliosis or deformity. Surgical dressing dry and intact. SKIN: No rashes CENTRAL NERVOUS SYSTEM: Sedated, tone is normal in all 4 extremities. EXTREMITIES: There is no peripheral edema. No clubbing, no cyanosis. Peripheral pulses are intact. Results - Laboratory Findings CBC and BMP: 11/06/24 10:30 11/06/24 10:30 ABG ABG pH 7.20 (7.35-7.45) L 11/06/24 12:20 ABG pCO2 61 mmHg (35-45) H 11/06/24 12:20 ABG pO2 >420 mmHg (83-108) H 11/06/24 12:20 ABG O2 Saturation 100.0 % (94-97) H 11/06/24 12:20 PT/INR, D-dimer PT 10.5 sec (10.0-12.5) 11/06/24 10:30 INR 0.9 (<1.2) 11/06/24 10:30 Abnormal lab findings: Abnormal Labs 11/06/24 11/06/24 11/06/24 10:14 10:30 10:30 RBC 3.59 L Hgb 10.6 L D MCV 104.0 H MCHC 28.5 L Plt Count 800 H D Neutrophils # 7.8 H Lymphocytes # 0.7 L ABG pH ABG pCO2 ABG pO2 ABG HCO3 ABG Total CO2 ABG O2 Saturation Hemoglobin Glucose POC Glucose (mg/dL) 119 H Plasma Lactic Acid Memo AST ALT Alkaline Phosphatase Ammonia Troponin I Urine Protein 1+ H Urine Mucus Rare H Urine Opiates Screen Detected H Ur Barbiturates Screen Detected H U Tricyclic Antidepress Detected H U Benzodiazepines Scrn Detected H U Marijuana (THC) Screen Detected H 11/06/24 11/06/24 11/06/24 10:30 10:30 10:30 RBC Hgb MCV MCHC Plt Count Neutrophils # Lymphocytes # ABG pH ABG pCO2 ABG pO2 ABG HCO3 ABG Total CO2 ABG O2 Saturation Hemoglobin Glucose 111 H POC Glucose (mg/dL) Plasma Lactic Acid Memo 3.0 H* AST 86 H ALT 39 H Alkaline Phosphatase 187 H Ammonia 33 H Troponin I 0.044 H* Urine Protein Urine Mucus Urine Opiates Screen Ur Barbiturates Screen U Tricyclic Antidepress U Benzodiazepines Scrn U Marijuana (THC) Screen 11/06/24 11/06/24 12:04 12:20 RBC Hgb MCV MCHC Plt Count Neutrophils # Lymphocytes # ABG pH 7.07 L* 7.20 L ABG pCO2 89 H* 61 H ABG pO2 34 L* >420 H ABG HCO3 26 H ABG Total CO2 28 H 26 H ABG O2 Saturation 37.1 L 100.0 H Hemoglobin 7.6 L 7.7 L Glucose POC Glucose (mg/dL) Plasma Lactic Acid Memo AST ALT Alkaline Phosphatase Ammonia Troponin I Urine Protein Urine Mucus Urine Opiates Screen Ur Barbiturates Screen U Tricyclic Antidepress U Benzodiazepines Scrn U Marijuana (THC) Screen - Diagnostic Findings Chest x-ray: image reviewed CT scan - chest: image reviewed Assessment and Plan Assessment: Altered mental status, obtunded requiring intubation and mechanical ventilatory support. Suspect secondary to narcotics. Urine drug screen positive for opiates, barbiturates, tricyclic antidepressants, benzodiazepines and marijuana Acute hypoxemic and hypercapnic respiratory failure secondary to above Discharge from the hospital following surgery on 10/27/2024 for open treatment of a T8 fracture, irrigation and excisional debridement of thoracic spine wound measuring 10 x 7 x 4 cm, posterior lateral instrumented fusion of T7-T11 and cement augmentation of T8-T10 vertebral bodies. Chronic obstructive pulmonary disease/asthma, currently inactive and stable T2 vertebral fracture with revision of C2-T7 posterior lateral fusion on 09/09/2024 Surgical site infection and wound dehiscence, wound and blood cultures revealed no growth Acute leukocytosis, improved Macrocytic anemia Rectal prolapse with bleeding History of hypertension History of hyperlipidemia History of coronary artery disease History of heart failure with preserved ejection fraction History of gastroesophageal reflux disease History of seizure disorder History of hypothyroidism History of anxiety/depression/PTSD Plan: The patient was seen and evaluated Imaging, labs and medications reviewed Currently intubated on the mechanical ventilator ABGs reviewed, appropriate vent changes made Continue propofol for sedation Continue vancomycin and cefepime Add bronchodilators every 4 hours Received 2 L of fluid resuscitation Admit to the intensive care unit ICU and vent bundle orders We will continue to follow and make further recommendations based on her clinical status I have personally seen and examined the patient, performed the documentation and the assessment and plan as written. Number of minutes spent on the visit: 20 Dictation was produced using [employer] software. Please excuse any grammatical, word or spelling errors.
[2024-11-06 15:50] LABS: Glucose,Whole Blood 91 mg/dL (70-110)
--- NOTE | 2024-11-06 15:54 | P.HPIM ---
History of Present Illness H&P Date: 11/06/24 Chief Complaint: Unresponsiveness 54-year-old female, history of COPD, hypertension, hyperlipidemia, coronary disease, congestive heart failure, DVT, hypothyroidism, seizure disorder, multiple previous back surgeries, who presents to the emergency department after having had thoracic surgery on 10/24/2024. Patient was also back in ER for a wound infection on 11/02/2024. Patient was found by her unresponsive this morning when EMS arrived she was unresponsive but eventually was able to open her eyes to verbal stimuli but was not able to interact or understand any commands. No other history is available currently She was intubated here in the emergency department. Chest x-ray revealed bilateral upper interstitial opacities concerning for pneumonia versus fluid volume overload. Evidence of COPD. Endotracheal tube and nasogastric tubes in position. CT scan of the brain revealed no acute intracranial process. CT angiogram ruled out pulmonary embolism. There is bilateral upper lobe reticular opacities with right greater than left raising concerns for infection. Few foci of gas identified within the left supraclavicular region and left anterior chest wall possibly with venous vasculature. CT scan of the thoracic spine reveals extensive postsurgical changes. No gross evidence of complication. Lab review shows White count 9.0. Hemoglobin 10.6. Platelets 800,000. INR 0.9. Sodium 144. Potassium 4.0. Bicarb 27. BUN 16. Creatinine 0.96. Glucose 111. Lactic acid 3.0. AST 86. ALT 39. Troponin 0.044. Urinalysis clean. Drug urine screen is positive for opiates, barbiturates, antidepressants, benzodiazepines and marijuana. Review of Systems ROS unobtainable: due to endotracheal tube Past Medical History Past Medical History: Asthma, Heart Failure, COPD, Deep Vein Thrombosis (DVT), Eye Disorder, Fibromyalgia, GERD/Reflux, Hyperlipidemia, Hypertension, Memory Impairment, Myocardial Infarction ([place]), Osteoarthritis (OA), Pneumonia, Seizure Disorder, Skin Disorder, Syncope, Thyroid Disorder Additional Past Medical History / Comment(s): IBS, colitis, restless legs flexed syndrome, daily migraines, Vitamin D deficiency, benign left breast mass, gastritis, short term memory loss. Vision - "sees an orange aura." DAVI Corey [employer] Last seizure 09/22/2024, PT STATES THAT DR. VILLALBA IS AWARE"Legs are weak and balance is off." checked bone marrow for cancer. Pt has pressure ulcer over lower incision from surgery on 09/09/2024. States she had a blood clot in leg but not sure which leg or when Last Myocardial Infarction Date:: 2009 History of Any Multi-Drug Resistant Organisms: None Reported Past Surgical History: Back Surgery, Hysterectomy, Orthopedic Surgery Additional Past Surgical History / Comment(s): D&C, bilateral knee arthroscopy. Past Anesthesia/Blood Transfusion Reactions: No Reported Reaction Additional Past Anesthesia/Blood Transfusion Reaction / Comment(s): severe anxiety coming out of anesthesia,no hx blood transfusion Past Psychological History: Anxiety, Bipolar, Depression, PTSD Smoking Status: Current every day smoker Past Alcohol Use History: None Reported Past Drug Use History: Marijuana - Past Family History Father Family Medical History: Cancer Additional Family Medical History / Comment(s): Father of pancreatic cancer at the age of 62yrs. and lung cancer Mother Family Medical History: Congestive Heart Failure (CHF) Additional Family Medical History / Comment(s): Mother of CHF at the age of 60yrs. Brother(s) Additional Family Medical History / Comment(s): Patient had 1 brother that at 5 months of age. Sister(s) Family Medical History: Deep Vein Thrombosis (DVT) Additional Family Medical History / Comment(s): Patient has one sister with history of depression and bipolar. Patient has 2 half-sisters and one at age 26 from overdose. Patient does not have any children. Medications and Allergies Home Medications Medication Instructions Recorded Confirmed Type Asenapine Maleate [Saphris] 10 mg SUBLINGUAL BID 04/30/17 11/06/24 History Sertraline [Zoloft] 200 mg PO DAILY 04/30/17 11/06/24 History Pantoprazole Sodium [Protonix] 40 mg PO BID 01/07/19 11/06/24 History Topiramate [Trokendi Xr] 100 mg PO DAILY 04/15/21 11/06/24 History cloBAZam [Sympazan] 10 mg PO BID 04/15/21 11/06/24 History hydrOXYzine pamoate [Vistaril] 50 mg PO TID PRN 04/16/21 11/06/24 History Albuterol Sulfate [Proair Hfa] 2 puff INHALATION RT-QID PRN 05/10/21 11/06/24 History Prazosin HCl [Minipress] 2 mg PO BID@1700,2100 05/10/21 11/06/24 History rOPINIRole HCL [Requip] 2 mg PO BID 05/10/21 11/06/24 History Fluticasone/Umeclidin/Vilanter 1 puff INHALATION RT-DAILY 12/10/22 11/06/24 History [Trelegy Ellipta 100-62.5-25] Brivaracetam [Briviact] 100 mg PO BID 07/10/23 11/06/24 History Budesonide [Pulmicort] 0.5 mg INHALATION RT-BID PRN 07/27/23 11/06/24 History Butalb/Acetaminophen/Caffeine 1 tab PO Q6H PRN 07/27/23 11/06/24 History [Fioricet 50-325-40] Cetirizine HCl [Zyrtec] 10 mg PO DAILY 07/27/23 11/06/24 History Fluticasone Nasal [place] [Flonase 1 spray EA NOSTRIL DAILY 07/27/23 11/06/24 History Nasal [place]] Ipratropium-Albuterol Nebulize 3 ml INHALATION RT-QID 07/27/23 11/06/24 History [Duoneb 0.5 mg-3 mg/3 ml Soln] Levothyroxine Sodium [Synthroid] 88 mcg PO DAILY 07/27/23 11/06/24 History Propranolol [Inderal] 20 mg PO BID 07/27/23 11/06/24 History Acetaminophen Tab [Tylenol] 500 mg PO Q6HR PRN 10/25/24 11/06/24 History Albuterol Nebulized [Ventolin 2.5 mg INHALATION RT-BID 10/25/24 11/06/24 History Nebulized] Cholecalciferol (Vitamin D3) 50 mcg PO DAILY 10/25/24 11/06/24 History [Vitamin D3 (50 Mcg = 2000 Iu)] Furosemide [Lasix] 40 mg PO DAILY 10/25/24 11/06/24 History Ibuprofen [Motrin] 800 mg PO Q8H PRN 10/25/24 11/06/24 History Montelukast [Singulair] 10 mg PO HS 10/25/24 11/06/24 History busPIRone HCL 15 mg PO TID 10/25/24 11/06/24 History rOPINIRole HCL [Requip] 1 mg PO BID 10/25/24 11/06/24 History Cyclobenzaprine [Flexeril] 10 mg PO TID #21 tab 11/02/24 11/06/24 Rx HYDROcodone/APAP 10-325MG [[place] 1 tab PO Q6HR PRN #28 tab 11/02/24 11/06/24 Rx 10-325] cefaDROXiL [Duricef] 500 mg PO Q12HR 5 Days #10 cap 11/02/24 11/06/24 Rx Tamsulosin HCl [Flomax] 0.4 mg PO DAILY #30 capsule 11/03/24 11/06/24 Rx Daily-[place]yle[place](With Folic Acid) 400mcg 1 tab PO DAILY 11/06/24 11/06/24 History Tablet Gabapentin [Neurontin] 800 mg PO TID 11/06/24 11/06/24 History Sennosides/Docusate Sodium [Senna 1 cap PO DAILY 11/06/24 11/06/24 History Plus 8.6-50 mg Softgel] Allergies Allergy/AdvReac Type Severity Reaction Status Date / Time bee venom protein (honey bee) Allergy Anaphylaxis Verified 11/06/24 15:29 Physical Exam Vitals: Vital Signs Temp Pulse Resp BP Pulse Ox FiO2 11/06/24 15:36 103 H 20 113/73 100 11/06/24 15:09 50 11/06/24 15:00 98.1 F 101 H 18 105/59 100 11/06/24 14:00 102 H 18 111/67 100 11/06/24 13:35 104 H 20 108/72 100 11/06/24 13:00 106 H 18 107/60 100 11/06/24 12:33 50 11/06/24 12:28 50 11/06/24 12:27 112 H 18 112/51 100 11/06/24 12:00 115 H 20 112/61 100 11/06/24 11:49 122 H 20 101/59 100 11/06/24 11:30 120 H 20 109/69 100 11/06/24 11:20 122 H 20 99/55 100 11/06/24 11:11 121 H 20 94/48 100 11/06/24 10:56 126 H 24 90/56 100 11/06/24 10:45 118 H 20 100/68 100 11/06/24 10:40 120 H 20 89/61 100 11/06/24 10:35 100 11/06/24 10:32 119 H 24 95/67 100 11/06/24 10:23 26 H 11/06/24 10:21 120 H 26 H 103/71 100 11/06/24 10:16 117 H 26 H 100/61 100 11/06/24 10:15 98.1 F 128 H 24 102/62 99 11/06/24 10:14 20 Intake and Output 11/06/24 11/06/24 11/06/24 06:59 14:59 22:59 Intake Total 7.794 Balance 7.794 Intake: Intake, IV Titration 7.794 Amount propofoL 1,000 mg In 7.794 Empty Bag 1 bag @ 15 MCG/ KG/MIN 4.291 mls/hr IV . [id number] [facility] Rx#:[id number] Other: Weight 47.673 kg GENERAL EXAM: Intubated, mechanically ventilated, thin 54-year-old female, on the ventilator, in no apparent distress. HEAD: Normocephalic. Normal reaction of pupils, equal size. THROAT: No erythema or exudates. NECK: No masses, no JVD. CHEST: No chest wall deformity. LUNGS: Equal air entry with no crackles, wheeze, rhonchi or dullness. CVS: S1 and S2 normal with no audible murmur, regular rhythm. ABDOMEN: No hepatosplenomegaly, normal bowel sounds, no guarding or rigidity. SPINE: No scoliosis or deformity. Surgical dressing dry and intact. SKIN: No rashes CENTRAL NERVOUS SYSTEM: Sedated, tone is normal in all 4 extremities. EXTREMITIES: There is no peripheral edema. No clubbing, no cyanosis. Peripheral pulses are intact. Results CBC & Chem 7: 11/06/24 10:30 11/06/24 10:30 Labs: Abnormal Lab Results - Last 24 Hours (Table) 11/06/24 11/06/24 11/06/24 Range/Units 10:14 10:30 10:30 RBC 3.59 L (3.80-5.40) m/uL Hgb 10.6 L D (11.4-16.0) gm/dL MCV 104.0 H (80.0-100.0) fL MCHC 28.5 L (31.0-37.0) g/dL Plt Count 800 H D (150-450) k/uL Neutrophils # 7.8 H (1.3-7.7) k/uL Lymphocytes # 0.7 L (1.0-4.8) k/uL ABG pH (7.35-7.45) ABG pCO2 (35-45) mmHg ABG pO2 (83-108) mmHg ABG HCO3 (21-25) mmol/L ABG Total CO2 (19-24) mmol/L ABG O2 Saturation (94-97) % Hemoglobin (11.4-16.0) gm/dL Glucose (74-99) mg/dL POC Glucose (mg/dL) 119 H (70-110) mg/dL Plasma Lactic Acid Memo (0.7-2.0) mmol/L AST (14-36) U/L ALT (4-34) U/L Alkaline Phosphatase (38-126) U/L Ammonia (<30) umol/L Troponin I (0.000-0.034) ng/mL Urine Protein 1+ H (Negative) Urine Mucus Rare H (None) /hpf Urine Opiates Screen Detected H (NotDetected) Ur Barbiturates Screen Detected H (NotDetected) U Tricyclic Antidepress Detected H (NotDetected) U Benzodiazepines Scrn Detected H (NotDetected) U Marijuana (THC) Screen Detected H (NotDetected) 11/06/24 11/06/24 11/06/24 Range/Units 10:30 10:30 10:30 RBC (3.80-5.40) m/uL Hgb (11.4-16.0) gm/dL MCV (80.0-100.0) fL MCHC (31.0-37.0) g/dL Plt Count (150-450) k/uL Neutrophils # (1.3-7.7) k/uL Lymphocytes # (1.0-4.8) k/uL ABG pH (7.35-7.45) ABG pCO2 (35-45) mmHg ABG pO2 (83-108) mmHg ABG HCO3 (21-25) mmol/L ABG Total CO2 (19-24) mmol/L ABG O2 Saturation (94-97) % Hemoglobin (11.4-16.0) gm/dL Glucose 111 H (74-99) mg/dL POC Glucose (mg/dL) (70-110) mg/dL Plasma Lactic Acid Memo 3.0 H* (0.7-2.0) mmol/L AST 86 H (14-36) U/L ALT 39 H (4-34) U/L Alkaline Phosphatase 187 H (38-126) U/L Ammonia 33 H (<30) umol/L Troponin I 0.044 H* (0.000-0.034) ng/mL Urine Protein (Negative) Urine Mucus (None) /hpf Urine Opiates Screen (NotDetected) Ur Barbiturates Screen (NotDetected) U Tricyclic Antidepress (NotDetected) U Benzodiazepines Scrn (NotDetected) U Marijuana (THC) Screen (NotDetected) 11/06/24 11/06/24 Range/Units 12:04 12:20 RBC (3.80-5.40) m/uL Hgb (11.4-16.0) gm/dL MCV (80.0-100.0) fL MCHC (31.0-37.0) g/dL Plt Count (150-450) k/uL Neutrophils # (1.3-7.7) k/uL Lymphocytes # (1.0-4.8) k/uL ABG pH 7.07 L* 7.20 L (7.35-7.45) ABG pCO2 89 H* 61 H (35-45) mmHg ABG pO2 34 L* >420 H (83-108) mmHg ABG HCO3 26 H (21-25) mmol/L ABG Total CO2 28 H 26 H (19-24) mmol/L ABG O2 Saturation 37.1 L 100.0 H (94-97) % Hemoglobin 7.6 L 7.7 L (11.4-16.0) gm/dL Glucose (74-99) mg/dL POC Glucose (mg/dL) (70-110) mg/dL Plasma Lactic Acid Memo (0.7-2.0) mmol/L AST (14-36) U/L ALT (4-34) U/L Alkaline Phosphatase (38-126) U/L Ammonia (<30) umol/L Troponin I (0.000-0.034) ng/mL Urine Protein (Negative) Urine Mucus (None) /hpf Urine Opiates Screen (NotDetected) Ur Barbiturates Screen (NotDetected) U Tricyclic Antidepress (NotDetected) U Benzodiazepines Scrn (NotDetected) U Marijuana (THC) Screen (NotDetected) Assessment and Plan Assessment: 1. Altered mental status/unresponsive, likely related to narcotics versus sepsis -Patient was intubated and mechanically ventilated in ED - Urine drug screen positive for opiates, barbiturates, tricyclic antidepressants, benzodiazepines and marijuana -Critical care service on board 2. Acute hypoxic/hypercapnic respiratory failure; as indicated above; patient remains intubated with mechanical ventilation 3. Surgical site infection/wound dehiscence -Patient is status post surgery on 10/27/2024 for open treatment of a T8 fracture, irrigation and excisional debridement of thoracic spine wound measuring 10 x 7 x 4 cm, posterior lateral instrumented fusion of T7-T11 and cement augmentation of T8-T10 vertebral bodies. -Orthopedic surgery consulted -Patient has been placed on IV antibiotics in form of cefepime and vancomycin 4. Leukocytosis/sepsis; continue with IV antibiotics as indicated above; patient has been pancultured 5. History of hypertension; propranolol 20 mg twice daily; prazosin 2 mg twice daily 6. Hyperlipidemia; currently not on any statin therapy 7. Hypothyroidism; levothyroxine 88 mcg daily 8. History of CAD/CHF DVT prophylaxis; SCDs/subcu heparin CODE STATUS; full code
[2024-11-06] MEDS: IPRATROPIUM-ALBUTEROL 3 ML NEB INHALATION SCH (16:03)
[2024-11-06] MEDS: FORMOTEROL FUMARATE 20 MCG/2 ML NEBU INHALATION SCH (20:25)
[2024-11-06] MEDS: BUDESONIDE 1 MG/2 ML NEBU INHALATION SCH (20:25)
[2024-11-06] MEDS: CEFEPIME 2 GM in SODIUM CHLORIDE 0.9% 100 ML IVPB SCH (20:37)
[2024-11-06] MEDS ORDERED: CEFEPIME 2 GM in SODIUM CHLORIDE 0.9% 100 ML IVPB SCH (21:00)
[2024-11-06 21:59] LABS: Glucose,Whole Blood 89 mg/dL (70-110)
--- NOTE | 2024-11-06 22:32 | P.CONS ---
History of Present Illness - Reason for Consult Consult date: 11/06/24 Wound infection Requesting physician: Eduardo Marshall - Chief Complaint Found nonresponsive x 1 day - History of Present Illness Patient is a 54-year-old female with a past medical history significant for COPD DVT hypertension hyperlipidemia who recently did have a cervical thoracic spine surgery revision for a nonhealing wound to the mid/upper back area patient cultures were negative and he was subsequent discharged home in stable condition a few days ago patient has not been brought back to the hospital after the patient was found to be unresponsive by the on arrival to the emergency patient was unresponsive but eventually was able to open her eyes patient was subsequently resuscitated in the ER and currently intubated on presentation to the hospital the patient was afebrile no fever have recorded subsequently patient was tachycardic mildly hypotensive requiring pressor support and is currently on 50% FiO2 patient did have elevated lactic acid white count was normal at 9.0 creatinine 0.96 electrolytes are normal liver isms are elevated urine is negative urine drug screen is positive for opiates barbiturates and tricyclic benzo and marijuana patient did have chest x-ray bilateral upper lung interstitial opacity concerning for pneumonia did have CT angiogram of the chest that was negative for PE posterior upper lobe opacity with bilateral pulm lobe opacity concerning for infectious process foci of gas ill-defined within the left subpleural clavicular region and left anterior chest wall possibly within the nearest vasculature patient also have a thoracic spine CT extensive postsurgical changes of the visualized cervical and thoracic spine no gross evidence for complication patient was started on vancomycin and cefepime has been admitted to ICU infectious disease was consulted for further management of antibiotic therapy most information has been obtained from review the chart talking to nursing staff and the patient is [facility] Review of Systems Positive points has been mentioned in HPI complete review could not be obtained because patient intubated [facility] the [facility] Past Medical History Past Medical History: Asthma, Heart Failure, COPD, Deep Vein Thrombosis (DVT), Eye Disorder, Fibromyalgia, GERD/Reflux, Hyperlipidemia, Hypertension, Memory Impairment, Myocardial Infarction (DE), Osteoarthritis (OA), Pneumonia, Seizure Disorder, Skin Disorder, Syncope, Thyroid Disorder Additional Past Medical History / Comment(s): IBS, colitis, restless legs flexed syndrome, daily migraines, Vitamin D deficiency, benign left breast mass, gastritis, short term memory loss. Vision - "sees an orange aura." DAVI GIBSON Last seizure 09/22/2024, PT STATES THAT DR. VILLALBA IS AWARE"Legs are weak and balance is off." checked bone marrow for cancer. Pt has pressure ulcer over lower incision from surgery on 09/09/2024. States she had a blood clot in leg but not sure which leg or when Last Myocardial Infarction Date:: 2009 History of Any Multi-Drug Resistant Organisms: None Reported Past Surgical History: Back Surgery, Hysterectomy, Orthopedic Surgery Additional Past Surgical History / Comment(s): D&C, bilateral knee arthroscopy. Past Anesthesia/Blood Transfusion Reactions: No Reported Reaction Additional Past Anesthesia/Blood Transfusion Reaction / Comm: severe anxiety coming out of anesthesia,no hx blood transfusion Past Psychological History: Anxiety, Bipolar, Depression, PTSD Smoking Status: Current every day smoker Past Alcohol Use History: None Reported Past Drug Use History: Marijuana - Past Family History Father Family Medical History: Cancer Additional Family Medical History / Comment(s): Father of pancreatic cancer at the age of 62yrs. and lung cancer Mother Family Medical History: Congestive Heart Failure (CHF) Additional Family Medical History / Comment(s): Mother of CHF at the age of 60yrs. Brother(s) Additional Family Medical History / Comment(s): Patient had 1 brother that at 5 months of age. Sister(s) Family Medical History: Deep Vein Thrombosis (DVT) Additional Family Medical History / Comment(s): Patient has one sister with history of depression and bipolar. Patient has 2 half-sisters and one at age 26 from overdose. Patient does not have any children. Medications and Allergies Home Medications Medication Instructions Recorded Confirmed Type Asenapine Maleate [Saphris] 10 mg SUBLINGUAL BID 04/30/17 11/06/24 History Sertraline [Zoloft] 200 mg PO DAILY 04/30/17 11/06/24 History Pantoprazole Sodium [Protonix] 40 mg PO BID 01/07/19 11/06/24 History Topiramate [Trokendi Xr] 100 mg PO DAILY 04/15/21 11/06/24 History cloBAZam [Sympazan] 10 mg PO BID 04/15/21 11/06/24 History hydrOXYzine pamoate [Vistaril] 50 mg PO TID PRN 04/16/21 11/06/24 History Albuterol Sulfate [Proair Hfa] 2 puff INHALATION RT-QID PRN 05/10/21 11/06/24 History Prazosin HCl [Minipress] 2 mg PO BID@1700,2100 05/10/21 11/06/24 History rOPINIRole HCL [Requip] 2 mg PO BID 05/10/21 11/06/24 History Fluticasone/Umeclidin/Vilanter 1 puff INHALATION RT-DAILY 12/10/22 11/06/24 History [Trelegy Ellipta 100-62.5-25] Brivaracetam [Briviact] 100 mg PO BID 07/10/23 11/06/24 History Budesonide [Pulmicort] 0.5 mg INHALATION RT-BID PRN 07/27/23 11/06/24 History Butalb/Acetaminophen/Caffeine 1 tab PO Q6H PRN 07/27/23 11/06/24 History [Fioricet 50-325-40] Cetirizine HCl [Zyrtec] 10 mg PO DAILY 07/27/23 11/06/24 History Fluticasone Nasal [place] [Flonase 1 spray EA NOSTRIL DAILY 07/27/23 11/06/24 History Nasal [place]] Ipratropium-Albuterol Nebulize 3 ml INHALATION RT-QID 07/27/23 11/06/24 History [Duoneb 0.5 mg-3 mg/3 ml Soln] Levothyroxine Sodium [Synthroid] 88 mcg PO DAILY 07/27/23 11/06/24 History Propranolol [Inderal] 20 mg PO BID 07/27/23 11/06/24 History Acetaminophen Tab [Tylenol] 500 mg PO Q6HR PRN 10/25/24 11/06/24 History Albuterol Nebulized [Ventolin 2.5 mg INHALATION RT-BID 10/25/24 11/06/24 History Nebulized] Cholecalciferol (Vitamin D3) 50 mcg PO DAILY 10/25/24 11/06/24 History [Vitamin D3 (50 Mcg = 2000 Iu)] Furosemide [Lasix] 40 mg PO DAILY 10/25/24 11/06/24 History Ibuprofen [Motrin] 800 mg PO Q8H PRN 10/25/24 11/06/24 History Montelukast [Singulair] 10 mg PO HS 10/25/24 11/06/24 History busPIRone HCL 15 mg PO TID 10/25/24 11/06/24 History rOPINIRole HCL [Requip] 1 mg PO BID 10/25/24 11/06/24 History Cyclobenzaprine [Flexeril] 10 mg PO TID #21 tab 11/02/24 11/06/24 Rx HYDROcodone/APAP 10-325MG [[place] 1 tab PO Q6HR PRN #28 tab 11/02/24 11/06/24 Rx 10-325] cefaDROXiL [Duricef] 500 mg PO Q12HR 5 Days #10 cap 11/02/24 11/06/24 Rx Tamsulosin HCl [Flomax] 0.4 mg PO DAILY #30 capsule 11/03/24 11/06/24 Rx Daily-Kylee(With Folic Acid) 400mcg 1 tab PO DAILY 11/06/24 11/06/24 History Tablet Gabapentin [Neurontin] 800 mg PO TID 11/06/24 11/06/24 History Sennosides/Docusate Sodium [Senna 1 cap PO DAILY 11/06/24 11/06/24 History Plus 8.6-50 mg Softgel] Allergies Allergy/AdvReac Type Severity Reaction Status Date / Time bee venom protein (honey bee) Allergy Anaphylaxis Verified 11/06/24 15:29 Physical Exam Vitals: Vital Signs Temp Pulse Resp BP Pulse Ox FiO2 11/06/24 15:36 103 H 20 113/73 100 11/06/24 15:09 50 11/06/24 15:00 98.1 F 101 H 18 105/59 100 11/06/24 14:00 102 H 18 111/67 100 11/06/24 13:35 104 H 20 108/72 100 11/06/24 13:00 106 H 18 107/60 100 11/06/24 12:33 50 11/06/24 12:28 50 11/06/24 12:27 112 H 18 112/51 100 11/06/24 12:00 115 H 20 112/61 100 11/06/24 11:49 122 H 20 101/59 100 11/06/24 11:30 120 H 20 109/69 100 11/06/24 11:20 122 H 20 99/55 100 11/06/24 11:11 121 H 20 94/48 100 11/06/24 10:56 126 H 24 90/56 100 11/06/24 10:45 118 H 20 100/68 100 11/06/24 10:40 120 H 20 89/61 100 11/06/24 10:35 100 11/06/24 10:32 119 H 24 95/67 100 11/06/24 10:23 26 H 11/06/24 10:21 120 H 26 H 103/71 100 11/06/24 10:16 117 H 26 H 100/61 100 11/06/24 10:15 98.1 F 128 H 24 102/62 99 11/06/24 10:14 20 Intake and Output 11/06/24 11/06/24 11/06/24 06:59 14:59 22:59 Intake Total 7.794 Balance 7.794 Intake: Intake, IV Titration 7.794 Amount propofoL 1,000 mg In 7.794 Empty Bag 1 bag @ 15 MCG/ KG/MIN 4.291 mls/hr IV . [id number] [facility] Rx#:[id number] Other: Weight 47.673 kg GENERAL DESCRIPTION: Middle-age female intubated on the [facility] HEENT: Shows Pallor , no scleral icterus. Oral mucous membrane is dry. NECK: Trachea central, no thyromegaly. LUNGS: Unlabored breathing. Decreased breath sounds at the base HEART: S1, S2, regular rate and rhythm. No loud murmur ABDOMEN: Soft, no tenderness , did have evidence of rectal prolapse EXTREMITIES: No edema of feet. SKIN: Stitches are still intact to the thoracocervical spine incision with no significant swelling redness or drainage NEUROLOGICAL: The patient is sedated on the [facility] Results CBC & Chem 7: 11/06/24 10:30 11/06/24 10:30 Labs: Abnormal Lab Results - Last 24 Hours (Table) 11/06/24 11/06/24 11/06/24 Range/Units 10:14 10:30 10:30 RBC 3.59 L (3.80-5.40) m/uL Hgb 10.6 L D (11.4-16.0) gm/dL MCV 104.0 H (80.0-100.0) fL MCHC 28.5 L (31.0-37.0) g/dL Plt Count 800 H D (150-450) k/uL Neutrophils # 7.8 H (1.3-7.7) k/uL Lymphocytes # 0.7 L (1.0-4.8) k/uL ABG pH (7.35-7.45) ABG pCO2 (35-45) mmHg ABG pO2 (83-108) mmHg ABG HCO3 (21-25) mmol/L ABG Total CO2 (19-24) mmol/L ABG O2 Saturation (94-97) % Hemoglobin (11.4-16.0) gm/dL Glucose (74-99) mg/dL POC Glucose (mg/dL) 119 H (70-110) mg/dL Plasma Lactic Acid Memo (0.7-2.0) mmol/L AST (14-36) U/L ALT (4-34) U/L Alkaline Phosphatase (38-126) U/L Ammonia (<30) umol/L Troponin I (0.000-0.034) ng/mL Urine Protein 1+ H (Negative) Urine Mucus Rare H (None) /hpf Urine Opiates Screen Detected H (NotDetected) Ur Barbiturates Screen Detected H (NotDetected) U Tricyclic Antidepress Detected H (NotDetected) U Benzodiazepines Scrn Detected H (NotDetected) U Marijuana (THC) Screen Detected H (NotDetected) 11/06/24 11/06/24 11/06/24 Range/Units 10:30 10:30 10:30 RBC (3.80-5.40) m/uL Hgb (11.4-16.0) gm/dL MCV (80.0-100.0) fL MCHC (31.0-37.0) g/dL Plt Count (150-450) k/uL Neutrophils # (1.3-7.7) k/uL Lymphocytes # (1.0-4.8) k/uL ABG pH (7.35-7.45) ABG pCO2 (35-45) mmHg ABG pO2 (83-108) mmHg ABG HCO3 (21-25) mmol/L ABG Total CO2 (19-24) mmol/L ABG O2 Saturation (94-97) % Hemoglobin (11.4-16.0) gm/dL Glucose 111 H (74-99) mg/dL POC Glucose (mg/dL) (70-110) mg/dL Plasma Lactic Acid Memo 3.0 H* (0.7-2.0) mmol/L AST 86 H (14-36) U/L ALT 39 H (4-34) U/L Alkaline Phosphatase 187 H (38-126) U/L Ammonia 33 H (<30) umol/L Troponin I 0.044 H* (0.000-0.034) ng/mL Urine Protein (Negative) Urine Mucus (None) /hpf Urine Opiates Screen (NotDetected) Ur Barbiturates Screen (NotDetected) U Tricyclic Antidepress (NotDetected) U Benzodiazepines Scrn (NotDetected) U Marijuana (THC) Screen (NotDetected) 11/06/24 11/06/24 Range/Units 12:04 12:20 RBC (3.80-5.40) m/uL Hgb (11.4-16.0) gm/dL MCV (80.0-100.0) fL MCHC (31.0-37.0) g/dL Plt Count (150-450) k/uL Neutrophils # (1.3-7.7) k/uL Lymphocytes # (1.0-4.8) k/uL ABG pH 7.07 L* 7.20 L (7.35-7.45) ABG pCO2 89 H* 61 H (35-45) mmHg ABG pO2 34 L* >420 H (83-108) mmHg ABG HCO3 26 H (21-25) mmol/L ABG Total CO2 28 H 26 H (19-24) mmol/L ABG O2 Saturation 37.1 L 100.0 H (94-97) % Hemoglobin 7.6 L 7.7 L (11.4-16.0) gm/dL Glucose (74-99) mg/dL POC Glucose (mg/dL) (70-110) mg/dL Plasma Lactic Acid Memo (0.7-2.0) mmol/L AST (14-36) U/L ALT (4-34) U/L Alkaline Phosphatase (38-126) U/L Ammonia (<30) umol/L Troponin I (0.000-0.034) ng/mL Urine Protein (Negative) Urine Mucus (None) /hpf Urine Opiates Screen (NotDetected) Ur Barbiturates Screen (NotDetected) U Tricyclic Antidepress (NotDetected) U Benzodiazepines Scrn (NotDetected) U Marijuana (THC) Screen (NotDetected) Assessment and Plan (1) Pneumonia Current Visit: Yes Status: Acute Code(s): J18.9 - PNEUMONIA, UNSPECIFIED ORGANISM SNOMED Code(s): 527257623 (2) Abnormal CT scan, chest Current Visit: Yes Status: Acute Code(s): R93.89 - ABNORMAL FINDINGS ON DX IMAGING OF OTH BODY STRUCTURES SNOMED Code(s): 79847529502361417 Plan: 1patient presented to hospital after the patient was found to be unresponsive at home concerning for possible drug overdose also noted to have significant finding on a chest x-ray and the CT concerning for possible pneumonia question of aspiration etiology in this patient has been around the hospital concerning for possible resistant gram-positive as well as gram-negative pathogen, the thor acic or cervical incision currently looks clean without gross cellulitis or any drainage 2-try to obtain sputum for Gram stain culture and follow-up on the blood cultures 3-we will empirically covered with the cefepime and vancomycin while waiting for the culture to finalize We will follow on clinical condition and cultures to further adjust medication if needed Thank you for this consultation we will follow the patient along with you Dictation was produced using [employer] dictation software. please excuse any grammatical, word or spelling errors. Time with Patient: Greater than 30
[2024-11-06] MEDS: SODIUM CHLORIDE 0.9% 1,000 ML IV SCH (22:53)
[2024-11-07] MEDS: VANCOMYCIN 750 MG in SODIUM CHLORIDE 0.9% 250 ML IVPB SCH (05:55)
[2024-11-07 06:15] LABS: ABG Base Excess -4.6 mmol/L; ABG HCO3 24 mmol/L (21-25); ABG Oxygen Saturation 90.5 % (94-97); ABG PCO2 66 mmHg (35-45); ABG PO2 70 mmHg (83-108); ABG TCO2 26 mmol/L (19-24); Allen Test Performed? Yes
[2024-11-07 06:19] LABS: ABG PH 7.17 (7.35-7.45)
[2024-11-07 07:06] LABS: Basophils # (A) 0.1 k/uL (0-0.2); Basophils % (A) 0 %; Eosinophils % (A) 0 %; HCT 29.7 % (34.0-46.0); Hypochromasia Marked; Lymphocytes # (A) 1.1 k/uL (1.0-4.8); Lymphocytes % (A) 3 %; MCHC 27.7 g/dL (31.0-37.0); MCV 108.1 fL (80.0-100.0); Macrocytosis Marked; Monocytes # (A) 0.7 k/uL (0-1.0); Monocytes % (A) 2 %; Neutrophils # (A) 36.6 k/uL (1.3-7.7); Platelet Count 659 k/uL (150-450); RBC 2.75 m/uL (3.80-5.40); RDW 15.6 % (11.5-15.5); WBC 38.9 k/uL (3.8-10.6)
--- NOTE | 2024-11-07 07:22 | XR ---
EXAMINATION TYPE: XR chest 1V portable DATE OF EXAM: 11/07/2024 5:25 AM COMPARISON: 11/06/2024 CLINICAL INDICATION: Female, 54 years old with history of mechanical ventilation, TECHNIQUE: XR chest 1V portable views of the chest are obtained. FINDINGS: Demonstrated are scattered senescent parenchymal change. Stable upper lobe interstitial opacities which are nonspecific. Endotracheal tube and NG tube remain unchanged in position. Bilateral Paul rods in place. The heart is stable. Hilar and mediastinal structures are within normal limits. Degenerative changes are seen of the dorsal spine. IMPRESSION: 1. Stable upper lobe interstitial opacities which are nonspecific. Endotracheal tube and NG tube rem ain unchanged in position. [facility], , 11/07/2024 7:19 AM
[2024-11-07 07:27] LABS: Glucose,Whole Blood 79 mg/dL (70-110)
[2024-11-07 07:31] LABS: ALT 111 U/L (4-34); AST 277 U/L (14-36); African American GFR (CKD) 79 (>60 ml/min/1.73 sqM); Albumin 2.7 g/dL (3.5-5.0); Alkaline Phosphatase 137 U/L (38-126); Anion Gap 12 mmol/L; Blood Urea Nitrogen 16 mg/dL (7-17); Carbon Dioxide 21 mmol/L (22-30); Chloride 111 mmol/L (98-107); Glucose 72 mg/dL (74-99); Non-African American GFR(CKD) 68 (>60 ml/min/1.73 sqM); Potassium 3.5 mmol/L (3.5-5.1); Sodium 144 mmol/L (137-145); Total Bilirubin 0.4 mg/dL (0.2-1.3); Total Protein 5.7 g/dL (6.3-8.2)
[2024-11-07 07:44] LABS: C Reactive Protein 26.5 mg/dL (<1.0)
[2024-11-07] MEDS: PANTOPRAZOLE 40 MG/10 ML VIAL IVP SCH (08:01)
[2024-11-07] MEDS: ENOXAPARIN 40 MG/0.4 ML SYRINGE SQ SCH (08:01)
[2024-11-07] MEDS ORDERED: Potassium Replacement Protocol 1 EACH MISC MISCELLANE PRN (08:13)
[2024-11-07 08:19] LABS: Neutrophils % (M) 91 %; Nucleated Red Blood Cells 0 /100 WBC (0-0); Total Cells Counted 100
[2024-11-07 08:22] LABS: HGB 8.2 gm/dL (11.4-16.0)
[2024-11-07] MEDS: POTASSIUM BICARBONATE/CIT AC 20 MEQ TABLET.EFF NG-TUBE SCH (09:05)
[2024-11-07] MEDS: CHLORHEXIDINE GLUCONATE 15 ML CUP MUCOUS MEM SCH (09:05)
[2024-11-07 11:37] LABS: ABG Base Excess -4.3 mmol/L; ABG HCO3 24 mmol/L (21-25); ABG Oxygen Saturation 99.1 % (94-97); ABG PCO2 59 mmHg (35-45); ABG PH 7.21 (7.35-7.45); ABG PO2 145 mmHg (83-108); ABG TCO2 25 mmol/L (19-24); Allen Test Performed? Yes
--- NOTE | 2024-11-07 12:21 | P.PN ---
Subjective Progress Note Date: 11/07/24 This is a 54-year-old female patient with a known history of COPD, hypertension, hyperlipidemia, coronary disease, congestive heart failure, DVT, hypothyroidism, seizure disorder, multiple previous back surgeries. She had most recently undergone a C2-T7 posterior lateral fusion on 09/09/2024. She developed a significant infection and wound dehiscence and was back here in the hospital and had undergone irrigation and excisional debridement of a thoracic spine wound on 10/27/2024 and discharged to home on 11/02/2024. She was brought back here to the emergency room earlier this morning after being found obtunded and unresponsive by her . She was intubated here in the emergency department. Chest x- ray revealed bilateral upper interstitial opacities concerning for pneumonia versus fluid volume overload. Evidence of COPD. Endotracheal tube and nasogastric tubes in position. CT scan of the brain revealed no acute intracranial process. CT angiogram ruled out pulmonary embolism. There is b ilateral upper lobe reticular opacities with right greater than left raising concerns for infection. Few foci of gas identified within the left supraclavicular region and left anterior chest wall possibly with venous vasculature. CT scan of the thoracic spine reveals extensive postsurgical changes. No gross evidence of complication. White count 9.0. Hemoglobin 10.6. Platelets 800,000. INR 0.9. Sodium 144. Potassium 4.0. Bicarb 27. BUN 16. Creatinine 0.96. Glucose 111. Lactic acid 3.0. AST 86. ALT 39. Troponin 0.044. Urinalysis clean. Drug urine screen is positive for opiates, barbiturates, antidepressants, benzodiazepines and marijuana. Initial arterial blood gases on 100% FiO2 revealed a PaO2 of 34, pCO2 89 and a pH of 7.07. Follow-up blood gases on the mechanical ventilator on 100% revealed a PaO2 greater than 420, pCO2 61 and a pH of 7.20. Her current vent settings are assist-control mode at a rate of 26, tidal volume 320 and FiO2 50% and a PEEP of 5. She is sedated on propofol at 50 mcg/kg/h. She has been initiated on vancomycin and cefepime. Received Narcan without improvement initially. She received 2 L of fluid resuscitation. 11/07/2024: Patient is a 54 year old female who was admmited to the ICU on 11/06/2024 with acute hypoxic respiratory failure. She arrived to ED unresponsive. Initially thought it was narcotic overdose. Did not improve with narcan. Ultimately intubated and mechanically ventillated on 11/06 . Patient tested positive for opiates, barbiturates, tricyclic's, benzodiazepines, and marijuana. Her underlying problems include COPD, hypertension, hyperlipidemia, coronary disease, congestive heart failure, DVT, hypothyroidism, seizure disorder, multiple previous back surgeries, T2 vertebral fracture with revision of C2-T7 posterior lateral fusion on 09/09/2024 patient developed surgical wound infection and dehiscence of wound. Patient was seen today 11/07/2024. Remains intubated and mechanically ventillated on assist controlled at a rate of 30, tidal volume 320, FiO2 50%, PEEP of 5. ABG: pH 7.17/pCO2 66 /pO2 70. Currently on propofol 50 mcg/kg/min and normal saline 0.9% at 125 cc/hr. No acute events overnight. Repeat CXR showing bilateral pleural and interstitial opacities. Labs WBC 38.9 Hgb 8.2, platelets 659, CO2 21, anion gap 11, BUN 16, creatinine 0.96 CRP 26.5. Patient currently on IV vancomycin dosed by pharmacy and cefepime 2 g IVPB every 12 hours. Blood cultures are pending. MRSA/MSSA screening pending. Currently not on any tube feeding. Objective - Vital Signs Vital signs: Vital Signs Temp 99 F 11/07/24 00:00 Pulse 121 H 11/07/24 07:00 Resp 30 H 11/07/24 07:00 BP 124/75 11/07/24 07:00 Pulse Ox 100 11/07/24 07:00 FiO2 50 11/07/24 04:56 Intake & Output 11/06/24 11/07/24 11/07/24 18:59 06:59 18:59 Intake Total 2959.889 5888.673 250 Output Total 500 730 100 Balance 600.000 797.673 150 Weight 47.673 kg 46.3 kg Intake: IV 1000 1380 250 0.9 1000 1155 125 Sodium Chloride 0.9% 1, 100 000 ml @ 999 mls/hr IV . Q1H1M ONE Rx#:[id number] Vancomycin 750 mg In 125 125 Sodium Chloride 0.9% 250 ml @ 125 mls/hr IVPB ONCE ONE Rx#:[id number] Intake, IV Titration 100.000 147.673 Amount propofoL 1,000 mg In 100.000 147.673 Empty Bag 1 bag @ 15 MCG/ KG/MIN 4.291 mls/hr IV . [id number] [facility] Rx#:[id number] Output: Gastric Drainage 400 Urine 100 730 100 Other: Voiding Method Indwelling Catheter Indwelling Catheter - Labs CBC & Chem 7: 11/07/24 06:29 11/07/24 06:29 Labs: Abnormal Lab Results - Last 24 Hours (Table) 11/06/24 11/06/24 11/06/24 Range/Units 10:14 10:30 10:30 RBC 3.59 L (3.80-5.40) m/uL Hgb 10.6 L D (11.4-16.0) gm/dL MCV 104.0 H (80.0-100.0) fL MCHC 28.5 L (31.0-37.0) g/dL Plt Count 800 H D (150-450) k/uL Neutrophils # 7.8 H (1.3-7.7) k/uL Lymphocytes # 0.7 L (1.0-4.8) k/uL ABG pH (7.35-7.45) ABG pCO2 (35-45) mmHg ABG pO2 (83-108) mmHg ABG HCO3 (21-25) mmol/L ABG Total CO2 (19-24) mmol/L ABG O2 Saturation (94-97) % Hemoglobin (11.4-16.0) gm/dL Chloride (98-107) mmol/L Carbon Dioxide (22-30) mmol/L Glucose (74-99) mg/dL POC Glucose (mg/dL) 119 H (70-110) mg/dL Plasma Lactic Acid Memo (0.7-2.0) mmol/L Calcium (8.4-10.2) mg/dL AST (14-36) U/L ALT (4-34) U/L Alkaline Phosphatase (38-126) U/L Ammonia (<30) umol/L Troponin I (0.000-0.034) ng/mL C-Reactive Protein (<1.0) mg/dL Total Protein (6.3-8.2) g/dL Albumin (3.5-5.0) g/dL Urine Protein 1+ H (Negative) Urine Mucus Rare H (None) /hpf Urine Opiates Screen Detected H (NotDetected) Ur Barbiturates Screen Detected H (NotDetected) U Tricyclic Antidepress Detected H (NotDetected) U Benzodiazepines Scrn Detected H (NotDetected) U Marijuana (THC) Screen Detected H (NotDetected) 11/06/24 11/06/24 11/06/24 Range/Units 10:30 10:30 10:30 RBC (3.80-5.40) m/uL Hgb (11.4-16.0) gm/dL MCV (80.0-100.0) fL MCHC (31.0-37.0) g/dL Plt Count (150-450) k/uL Neutrophils # (1.3-7.7) k/uL Lymphocytes # (1.0-4.8) k/uL ABG pH (7.35-7.45) ABG pCO2 (35-45) mmHg ABG pO2 (83-108) mmHg ABG HCO3 (21-25) mmol/L ABG Total CO2 (19-24) mmol/L ABG O2 Saturation (94-97) % Hemoglobin (11.4-16.0) gm/dL Chloride (98-107) mmol/L Carbon Dioxide (22-30) mmol/L Glucose 111 H (74-99) mg/dL POC Glucose (mg/dL) (70-110) mg/dL Plasma Lactic Acid Memo 3.0 H* (0.7-2.0) mmol/L Calcium (8.4-10.2) mg/dL AST 86 H (14-36) U/L ALT 39 H (4-34) U/L Alkaline Phosphatase 187 H (38-126) U/L Ammonia 33 H (<30) umol/L Troponin I 0.044 H* (0.000-0.034) ng/mL C-Reactive Protein (<1.0) mg/dL Total Protein (6.3-8.2) g/dL Albumin (3.5-5.0) g/dL Urine Protein (Negative) Urine Mucus (None) /hpf Urine Opiates Screen (NotDetected) Ur Barbiturates Screen (NotDetected) U Tricyclic Antidepress (NotDetected) U Benzodiazepines Scrn (NotDetected) U Marijuana (THC) Screen (NotDetected) 11/06/24 11/06/24 11/06/24 Range/Units 12:04 12:20 16:15 RBC (3.80-5.40) m/uL Hgb (11.4-16.0) gm/dL MCV (80.0-100.0) fL MCHC (31.0-37.0) g/dL Plt Count (150-450) k/uL Neutrophils # (1.3-7.7) k/uL Lymphocytes # (1.0-4.8) k/uL ABG pH 7.07 L* 7.20 L (7.35-7.45) ABG pCO2 89 H* 61 H (35-45) mmHg ABG pO2 34 L* >420 H (83-108) mmHg ABG HCO3 26 H (21-25) mmol/L ABG Total CO2 28 H 26 H (19-24) mmol/L ABG O2 Saturation 37.1 L 100.0 H (94-97) % Hemoglobin 7.6 L 7.7 L (11.4-16.0) gm/dL Chloride (98-107) mmol/L Carbon Dioxide (22-30) mmol/L Glucose (74-99) mg/dL POC Glucose (mg/dL) (70-110) mg/dL Plasma Lactic Acid Memo 3.9 H* (0.7-2.0) mmol/L Calcium (8.4-10.2) mg/dL AST (14-36) U/L ALT (4-34) U/L Alkaline Phosphatase (38-126) U/L Ammonia (<30) umol/L Troponin I (0.000-0.034) ng/mL C-Reactive Protein (<1.0) mg/dL Total Protein (6.3-8.2) g/dL Albumin (3.5-5.0) g/dL Urine Protein (Negative) Urine Mucus (None) /hpf Urine Opiates Screen (NotDetected) Ur Barbiturates Screen (NotDetected) U Tricyclic Antidepress (NotDetected) U Benzodiazepines Scrn (NotDetected) U Marijuana (THC) Screen (NotDetected) 03/11/0111/06/24 11/07/24 Range/Units 19:41 22:38 04:57 RBC (3.80-5.40) m/uL Hgb (11.4-16.0) gm/dL MCV (80.0-100.0) fL MCHC (31.0-37.0) g/dL Plt Count (150-450) k/uL Neutrophils # (1.3-7.7) k/uL Lymphocytes # (1.0-4.8) k/uL ABG pH 7.17 L* (7.35-7.45) ABG pCO2 66 H (35-45) mmHg ABG pO2 70 L (83-108) mmHg ABG HCO3 (21-25) mmol/L ABG Total CO2 26 H (19-24) mmol/L ABG O2 Saturation 90.5 L (94-97) % Hemoglobin 7.8 L (11.4-16.0) gm/dL Chloride (98-107) mmol/L Carbon Dioxide (22-30) mmol/L Glucose (74-99) mg/dL POC Glucose (mg/dL) (70-110) mg/dL Plasma Lactic Acid Memo 3.9 H* 3.1 H* (0.7-2.0) mmol/L Calcium (8.4-10.2) mg/dL AST (14-36) U/L ALT (4-34) U/L Alkaline Phosphatase (38-126) U/L Ammonia (<30) umol/L Troponin I (0.000-0.034) ng/mL C-Reactive Protein (<1.0) mg/dL Total Protein (6.3-8.2) g/dL Albumin (3.5-5.0) g/dL Urine Protein (Negative) Urine Mucus (None) /hpf Urine Opiates Screen (NotDetected) Ur Barbiturates Screen (NotDetected) U Tricyclic Antidepress (NotDetected) U Benzodiazepines Scrn (NotDetected) U Marijuana (THC) Screen (NotDetected) 11/07/24 Range/Units 06:29 RBC (3.80-5.40) m/uL Hgb (11.4-16.0) gm/dL MCV (80.0-100.0) fL MCHC (31.0-37.0) g/dL Plt Count (150-450) k/uL Neutrophils # (1.3-7.7) k/uL Lymphocytes # (1.0-4.8) k/uL ABG pH (7.35-7.45) ABG pCO2 (35-45) mmHg ABG pO2 (83-108) mmHg ABG HCO3 (21-25) mmol/L ABG Total CO2 (19-24) mmol/L ABG O2 Saturation (94-97) % Hemoglobin (11.4-16.0) gm/dL Chloride 111 H (98-107) mmol/L Carbon Dioxide 21 L (22-30) mmol/L Glucose 72 L (74-99) mg/dL POC Glucose (mg/dL) (70-110) mg/dL Plasma Lactic Acid Memo (0.7-2.0) mmol/L Calcium 8.0 L (8.4-10.2) mg/dL AST 277 H (14-36) U/L ALT 111 H (4-34) U/L Alkaline Phosphatase 137 H (38-126) U/L Ammonia (<30) umol/L Troponin I (0.000-0.034) ng/mL C-Reactive Protein 26.5 H (<1.0) mg/dL Total Protein 5.7 L (6.3-8.2) g/dL Albumin 2.7 L (3.5-5.0) g/dL Urine Protein (Negative) Urine Mucus (None) /hpf Urine Opiates Screen (NotDetected) Ur Barbiturates Screen (NotDetected) U Tricyclic Antidepress (NotDetected) U Benzodiazepines Scrn (NotDetected) U Marijuana (THC) Screen (NotDetected) Assessment and Plan Assessment: Altered mental status, obtunded requiring intubation and mechanical ventilatory support. Suspect secondary to narcotics. Urine drug screen positive for opiates, barbiturates, tricyclic antidepressants, benzodiazepines and marijuana Acute hypoxemic and hypercapnic respiratory failure secondary to above Discharge from the hospital following surgery on 10/27/2024 for open treatment of a T8 fracture, irrigation and excisional debridement of thoracic spine wound measuring 10 x 7 x 4 cm, posterior lateral instrumented fusion of T7-T11 and cement augmentation of T8-T10 vertebral bodies. Chronic obstructive pulmonary disease/asthma, currently inactive and stable T2 vertebral fracture with revision of C2-T7 posterior lateral fusion on 09/09/2024 Surgical site infection and wound dehiscence, wound and blood cultures revealed no growth Acute leukocytosis, improved Macrocytic anemia Rectal prolapse with bleeding History of hypertension History of hyperlipidemia History of coronary artery disease History of heart failure with preserved ejection fraction History of gastroesophageal reflux disease History of seizure disorder History of hypothyroidism History of anxiety/depression/PTSD Plan: The patient was seen and evaluated Imaging, labs and medications reviewed Currently intubated on the mechanical ventilator ABGs reviewed, appropriate vent changes made Attempt to wean off propofol Continue vancomycin and cefepime Consult dietitian to start tube feeds vital HP Blood cultures pending MRSA/MSSA screening pending Will continue to follow in intensive care unit We will continue to follow and make further recommendations based on her clinical status
[2024-11-07 12:25] LABS: Glucose,Whole Blood 68 mg/dL (70-110)
[2024-11-07] MEDS ORDERED: DEXTROSE 50% SYRINGE 50 ML IVP PRN (12:50)
[2024-11-07] MEDS: DEXTROSE 50% SYRINGE 50 ML IVP PRN (13:13)
[2024-11-07 13:34] LABS: Glucose,Whole Blood 84 mg/dL (70-110)
[2024-11-07] MEDS: PROPRANOLOL 20 MG TAB PO STA (14:24)
--- NOTE | 2024-11-07 15:48 | P.CNOR ---
History of Present Illness - [facility] Consult date: 11/07/24 Requesting physician: Eduardo Marshall Consult reason: other (Recent surgery status post open treatment T8 fracture; irrigation and excisional debridement of thoracic spine wound; posterior lateral instrumented fusion T7-T11) History of present illness: History of Presenting Illness Patient is a 54-year-old female who presented to the ER via EMS unresponsive on 11/06/2024. Patient is known to our services, recent surgery with Dr. Mchugh on 10/27/24; open treatment T8 fracture; irrigation and excisional debridement of thoracic spine wound; posterior lateral instrumented fusion T7-T11. Patient was discharged home 11/02/2024 in stable condition. It is documented that she was found by her boyfriend unresponsive the morning of 11/06/24. When EMS arrived s he was unresponsive but eventually was able to open her eyes to verbal stimuli but was not able to interact or understand any commands. Patient was seen in the ICU this afternoon, she is currently mechanically ventilated. Spoke with dayshift RN and she states patient has opened eyes to verbal stimuli, but does not follow any commands. RN states that she had just changed the dressing to the surgical incision of the thoracic spine, edges are well-approximated with sutures intact. No active drainage. No erythema. CT of the thoracic spine taken on 11/06/2024 demonstrates extensive postsurgical changes of the visualized cervical thoracic lumbar spine. There is no gross evidence for complication. Stable remote fractures of the C7 and L1 vertebral bodies with additional remote fracture involving superior endplate of the T8 vertebral body with vertebral augmentation changes. Review of Systems Pertinent positives and negatives as discussed in HPI, a complete review of systems was performed and all other systems are negative. Physical Examination General: The patient is currently on mechanical ventilation, in no acute distress Skin: Skin is warm and dry with no obvious rashes or lesions. Surgical incision to the thoracic spine, edges are well-approximated with sutures intact. No active drainage. No erythema or edema. Dressing is clean dry and intact. There is no peripheral edema. No clubbing, no cyanosis. Peripheral pulses are intact. Limited exam due to patient's status. Assessment Altered mental status/unresponsive Postop day 11: open treatment T8 fracture; irrigation and excisional debridement of thoracic spine wound; posterior lateral instrumented fusion T7-T11 Plan At this time we do not recommend any emergent/urgent orthopedic surgical intervention. 2. Appreciate medical management 3. Pain management - Continue with current regimen, Utilize ice therapy 20min every hour as needed. 4. Bedrest; may perform bed exercises and ROM of extremities as tolerated. 7. Appreciate consult. I reviewed and discussed this case with my attending Dr. Mchugh, whom has reviewed this chart and films and is in agreement with assessment and plan of care as outlined above. I have personally seen and examined the patient, performed the documentation and the assessment and plan as written. Number of minutes spent on the visit: 30m. Past Medical History Past Medical History: Asthma, Heart Failure, COPD, Deep Vein Thrombosis (DVT), Eye Disorder, Fibromyalgia, GERD/Reflux, Hyperlipidemia, Hypertension, Memory Impairment, Myocardial Infarction (CO), Osteoarthritis (OA), Pneumonia, Seizure Disorder, Skin Disorder, Syncope, Thyroid Disorder Additional Past Medical History / Comment(s): IBS, colitis, restless legs flexed syndrome, daily migraines, Vitamin D deficiency, benign left breast mass, gastritis, short term memory loss. Vision - "sees an orange aura." DAVI NAPIERTS Last seizure 09/22/2024, PT STATES THAT DR. VILLALBA IS AWARE"Legs are weak and balance is off." checked bone marrow for cancer. Pt has pressure ulcer over lower incision from surgery on 09/09/2024. States she had a blood clot in leg but not sure which leg or when Last Myocardial Infarction Date:: 2009 History of Any Multi-Drug Resistant Organisms: None Reported Past Surgical History: Back Surgery, Hysterectomy, Orthopedic Surgery Additional Past Surgical History / Comment(s): D&C, bilateral knee arthroscopy. Past Anesthesia/Blood Transfusion Reactions: No Reported Reaction Additional Past Anesthesia/Blood Transfusion Reaction / Comm: severe anxiety coming out of anesthesia,no hx blood transfusion Past Psychological History: Anxiety, Bipolar, Depression, PTSD Smoking Status: Current every day smoker Past Alcohol Use History: None Reported Past Drug Use History: Marijuana - Past Family History Father Family Medical History: Cancer Additional Family Medical History / Comment(s): Father of pancreatic cancer at the age of 62yrs. and lung cancer Mother Family Medical History: Congestive Heart Failure (CHF) Additional Family Medical History / Comment(s): Mother of CHF at the age of 60yrs. Brother(s) Additional Family Medical History / Comment(s): Patient had 1 brother that at 5 months of age. Sister(s) Family Medical History: Deep Vein Thrombosis (DVT) Additional Family Medical History / Comment(s): Patient has one sister with history of depression and bipolar. Patient has 2 half-sisters and one at age 26 from overdose. Patient does not have any children. Medications and Allergies Home Medications Medication Instructions Recorded Confirmed Type Asenapine Maleate [Saphris] 10 mg SUBLINGUAL BID 04/30/17 11/06/24 History Sertraline [Zoloft] 200 mg PO DAILY 04/30/17 11/06/24 History Pantoprazole Sodium [Protonix] 40 mg PO BID 01/07/19 11/06/24 History Topiramate [Trokendi Xr] 100 mg PO DAILY 04/15/21 11/06/24 History cloBAZam [Sympazan] 10 mg PO BID 04/15/21 11/06/24 History hydrOXYzine pamoate [Vistaril] 50 mg PO TID PRN 04/16/21 11/06/24 History Albuterol Sulfate [Proair Hfa] 2 puff INHALATION RT-QID PRN 05/10/21 11/06/24 History Prazosin HCl [Minipress] 2 mg PO BID@1700,2100 05/10/21 11/06/24 History rOPINIRole HCL [Requip] 2 mg PO BID 05/10/21 11/06/24 History Fluticasone/Umeclidin/Vilanter 1 puff INHALATION RT-DAILY 12/10/22 11/06/24 History [Trelegy Ellipta 100-62.5-25] Brivaracetam [Briviact] 100 mg PO BID 07/10/23 11/06/24 History Budesonide [Pulmicort] 0.5 mg INHALATION RT-BID PRN 07/27/23 11/06/24 History Butalb/Acetaminophen/Caffeine 1 tab PO Q6H PRN 07/27/23 11/06/24 History [Fioricet 50-325-40] Cetirizine HCl [Zyrtec] 10 mg PO DAILY 07/27/23 11/06/24 History Fluticasone Nasal [place] [Flonase 1 spray EA NOSTRIL DAILY 07/27/23 11/06/24 History Nasal [place]] Ipratropium-Albuterol Nebulize 3 ml INHALATION RT-QID 07/27/23 11/06/24 History [Duoneb 0.5 mg-3 mg/3 ml Soln] Levothyroxine Sodium [Synthroid] 88 mcg PO DAILY 07/27/23 11/06/24 History Propranolol [Inderal] 20 mg PO BID 07/27/23 11/06/24 History Acetaminophen Tab [Tylenol] 500 mg PO Q6HR PRN 10/25/24 11/06/24 History Albuterol Nebulized [Ventolin 2.5 mg INHALATION RT-BID 10/25/24 11/06/24 History Nebulized] Cholecalciferol (Vitamin D3) 50 mcg PO DAILY 10/25/24 11/06/24 History [Vitamin D3 (50 Mcg = 2000 Iu)] Furosemide [Lasix] 40 mg PO DAILY 10/25/24 11/06/24 History Ibuprofen [Motrin] 800 mg PO Q8H PRN 10/25/24 11/06/24 History Montelukast [Singulair] 10 mg PO HS 10/25/24 11/06/24 History busPIRone HCL 15 mg PO TID 10/25/24 11/06/24 History rOPINIRole HCL [Requip] 1 mg PO BID 10/25/24 11/06/24 History Cyclobenzaprine [Flexeril] 10 mg PO TID #21 tab 11/02/24 11/06/24 Rx HYDROcodone/APAP 10-325MG [[place] 1 tab PO Q6HR PRN #28 tab 11/02/24 11/06/24 Rx 10-325] cefaDROXiL [Duricef] 500 mg PO Q12HR 5 Days #10 cap 11/02/24 11/06/24 Rx Tamsulosin HCl [Flomax] 0.4 mg PO DAILY #30 capsule 11/03/24 11/06/24 Rx Daily-Kylee(With Folic Acid) 400mcg 1 tab PO DAILY 11/06/24 11/06/24 History Tablet Gabapentin [Neurontin] 800 mg PO TID 11/06/24 11/06/24 History Sennosides/Docusate Sodium [Senna 1 cap PO DAILY 11/06/24 11/06/24 History Plus 8.6-50 mg Softgel] Allergies Allergy/AdvReac Type Severity Reaction Status Date / Time bee venom protein (honey bee) Allergy Anaphylaxis Verified 11/06/24 15:29 Results - Labs Labs: Abnormal Lab Results - Last 24 Hours (Table) 11/06/24 11/06/24 11/06/24 Range/Units 16:15 19:41 22:38 WBC (3.8-10.6) k/uL RBC (3.80-5.40) m/uL Hgb (11.4-16.0) gm/dL Hct (34.0-46.0) % MCV (80.0-100.0) fL MCHC (31.0-37.0) g/dL RDW (11.5-15.5) % Plt Count (150-450) k/uL Neutrophils # (1.3-7.7) k/uL Macrocytosis ABG pH (7.35-7.45) ABG pCO2 (35-45) mmHg ABG pO2 (83-108) mmHg ABG Total CO2 (19-24) mmol/L ABG O2 Saturation (94-97) % Hemoglobin (11.4-16.0) gm/dL Chloride (98-107) mmol/L Carbon Dioxide (22-30) mmol/L Glucose (74-99) mg/dL POC Glucose (mg/dL) (70-110) mg/dL Plasma Lactic Acid Memo 3.9 H* 3.9 H* 3.1 H* (0.7-2.0) mmol/L Calcium (8.4-10.2) mg/dL AST (14-36) U/L ALT (4-34) U/L Alkaline Phosphatase (38-126) U/L C-Reactive Protein (<1.0) mg/dL Total Protein (6.3-8.2) g/dL Albumin (3.5-5.0) g/dL 11/07/24 11/07/24 11/07/24 Range/Units 04:57 06:29 06:29 WBC 38.9 H (3.8-10.6) k/uL RBC 2.75 L (3.80-5.40) m/uL Hgb 8.2 L D (11.4-16.0) gm/dL Hct 29.7 L (34.0-46.0) % MCV 108.1 H (80.0-100.0) fL MCHC 27.7 L (31.0-37.0) g/dL RDW 15.6 H (11.5-15.5) % Plt Count 659 H (150-450) k/uL Neutrophils # 36.6 H (1.3-7.7) k/uL Macrocytosis Marked A ABG pH 7.17 L* (7.35-7.45) ABG pCO2 66 H (35-45) mmHg ABG pO2 70 L (83-108) mmHg ABG Total CO2 26 H (19-24) mmol/L ABG O2 Saturation 90.5 L (94-97) % Hemoglobin 7.8 L (11.4-16.0) gm/dL Chloride 111 H (98-107) mmol/L Carbon Dioxide 21 L (22-30) mmol/L Glucose 72 L (74-99) mg/dL POC Glucose (mg/dL) (70-110) mg/dL Plasma Lactic Acid Memo (0.7-2.0) mmol/L Calcium 8.0 L (8.4-10.2) mg/dL AST 277 H (14-36) U/L ALT 111 H (4-34) U/L Alkaline Phosphatase 137 H (38-126) U/L C-Reactive Protein 26.5 H (<1.0) mg/dL Total Protein 5.7 L (6.3-8.2) g/dL Albumin 2.7 L (3.5-5.0) g/dL 11/07/24 11/07/24 Range/Units 11:35 12:23 WBC (3.8-10.6) k/uL RBC (3.80-5.40) m/uL Hgb (11.4-16.0) gm/dL Hct (34.0-46.0) % MCV (80.0-100.0) fL MCHC (31.0-37.0) g/dL RDW (11.5-15.5) % Plt Count (150-450) k/uL Neutrophils # (1.3-7.7) k/uL Macrocytosis ABG pH 7.21 L (7.35-7.45) ABG pCO2 59 H (35-45) mmHg ABG pO2 145 H (83-108) mmHg ABG Total CO2 25 H (19-24) mmol/L ABG O2 Saturation 99.1 H (94-97) % Hemoglobin 7.6 L (11.4-16.0) gm/dL Chloride (98-107) mmol/L Carbon Dioxide (22-30) mmol/L Glucose (74-99) mg/dL POC Glucose (mg/dL) 68 L (70-110) mg/dL Plasma Lactic Acid Memo (0.7-2.0) mmol/L Calcium (8.4-10.2) mg/dL AST (14-36) U/L ALT (4-34) U/L Alkaline Phosphatase (38-126) U/L C-Reactive Protein (<1.0) mg/dL Total Protein (6.3-8.2) g/dL Albumin (3.5-5.0) g/dL H & H 11/06/24 11/07/24 Range/Units 10:30 06:29 Hgb 10.6 L D 8.2 L D (11.4-16.0) gm/dL Hct 37.3 29.7 L (34.0-46.0) % Coagulation 11/06/24 Range/Units 10:30 INR 0.9 (<1.2) Result Diagrams: 11/07/24 06:29 11/07/24 06:29
--- NOTE | 2024-11-07 15:49 | P.PN ---
Progress Note - Text Progress Note Date: 11/07/24 Patient is a 54-year-old female that is known to our orthopedic service, she recently underwent a irrigation and debridement of the thoracic wound with secondary wound closure, open fracture treatment T8, posterior instrumented fusion T7-T11 on 10/27/2024. During the hospital stay, patient was followed by multiple medical specialties, she was then sent home with home health care at discharge once stable. Patient was brought back to the hospital on 11/06/2024, ER note stated she was unresponsive upon arrival, she was then intubated, she has been in the ICU since then. There is concern for polysubstance use Patient was evaluated today, she was in the ICU intubated, she does respond to verbal stimuli. Thoracic wound was inspected today, incision is healing well with good staple placement, there is no areas of erythema, drainage or fluctuance noted Orthopedically, no acute concerns for infection involving the surgical wound at this time. Will continue to monitor during her hospital stay.
[2024-11-07 17:58] LABS: Glucose,Whole Blood 72 mg/dL (70-110)
[2024-11-07 18:16] LABS: Glucose,Whole Blood 114 mg/dL (70-110)
--- NOTE | 2024-11-07 19:55 | P.PN ---
Subjective Progress Note Date: 11/07/24 Patient is evaluated today in follow up in the intensive care unit. Patient remains intubated on the mechanical ventilator with PEEP of 5 and FiO2 of 40%. Patient remains sedated. LFTs remain elevated, white blood cell count up to 38. Blood culture pending. Patient continues on IV Vancomycin and IV cefepime. ID following. Chest xray today reveals stable upper lobe interstitial opacities. Spinal surgery evaluated the patient felt the wound was noninfectious and healing well. Patients heart rate has been in the 120s was resumed on home medication of propanolol and has had improvement in the heart rate down to the 80s this afternoon. Unable to complete review of systems patient is currently intubated and sedated. Physical Examination GENERAL EXAM: Intubated, mechanically ventilated, thin 54-year-old female, on the ventilator, in no apparent distress. HEAD: Normocephalic. Normal reaction of pupils, equal size. THROAT: No erythema or exudates. NECK: No masses, no JVD. CHEST: No chest wall deformity. LUNGS: Equal air entry with no crackles, wheeze, rhonchi or dullness. CVS: S1 and S2 normal with no audible murmur, regular rhythm. ABDOMEN: No hepatosplenomegaly, normal bowel sounds, no guarding or rigidity. SPINE: No scoliosis or deformity. Surgical dressing dry and intact. SKIN: No rashes CENTRAL NERVOUS SYSTEM: Sedated, tone is normal in all 4 extremities. EXTREMITIES: There is no peripheral edema. No clubbing, no cyanosis. Peripheral pulses are intact. Assessment and Plan -Altered mental status/unresponsive, likely related to narcotics versus sepsis -Acute hypoxic/hypercapnic respiratory failure; as indicated above; patient remains intubated with mechanical ventilation -Surgical site infection/wound dehiscence and Patient is status post surgery on 10/27/2024 for open treatment of a T8 fracture, irrigation and excisional debridement of thoracic spine wound measuring 10 x 7 x 4 cm, posterior lateral instrumented fusion of T7-T11 and cement augmentation of T8-T10 vertebral bodies; Orthopedic surgery consulted and felt the wound was noninfectious and healing well. -Leukocytosis/sepsis; continue with IV antibiotics as indicated above; patient has been pancultured -History of hypertension; propranolol 20 mg twice daily has been resumed; prazosin 2 mg twice daily on hold -Hyperlipidemia; currently not on any statin therapy -Hypothyroidism; levothyroxine 88 mcg daily -History of CAD -Chronic heart failure with preserved EF with no acute exacerbation -History of COPD/Asthma -PTSD/Bipolar/Borderline personality -Chronic nicotine use -Polysubstance use -Rectal prolapse -Hx seizure disorder -Gastroesophageal reflux DVT prophylaxis; SCDs/subcu heparin CODE STATUS; full code Plan -Patient was intubated and mechanically ventilated in ED -Urine drug screen positive for opiates, barbiturates, tricyclic antidepressants, benzodiazepines and marijuana concern for polysubstance use -Blood and sputum cultures pending -All narcotics are currently being held -Critical care service on board -Patient has been placed on IV antibiotics in form of cefepime and vancomycin -Antiseizure medications have been resumed -Monitor electrolytes and renal function The impression and plan of care has been dictated by Nichelle Loya, Nurse Practitioner as directed. Dr. Jayson MD I have performed a history and physical examination and medical decision making of this patient, discussed the same with the dictator, and agree with the dictators assessment and plan as written, documented as a scribe. Based on total visit time, I have performed more than 50% of this visit. Objective - Vital Signs Vital signs: Vital Signs Temp 99.7 F H 11/07/24 16:00 Pulse 95 11/07/24 19:00 Resp 30 H 11/07/24 19:00 BP 108/59 11/07/24 19:00 Pulse Ox 99 11/07/24 19:00 FiO2 40 11/07/24 16:18 Intake & Output 11/07/24 11/07/24 11/08/24 06:59 18:59 06:59 Intake Total 9105.782 0697.624 155 Output Total 730 600 65 Balance 225.787 7034.624 90 Weight 46.3 kg 46.3 kg Intake: IV 1380 1785 135 0.9 1155 1500 125 0.9 @ KVO 60 10 Cefepime 2 gm In Sodium 100 Chloride 0.9% 100 ml @ 200 mls/hr IVPB ONCE STA Rx#:[id number] Sodium Chloride 0.9% 1, 100 000 ml @ 999 mls/hr IV . Q1H1M ONE Rx#:[id number] Vancomycin 750 mg In 125 125 Sodium Chloride 0.9% 250 ml @ 125 mls/hr IVPB ONCE ONE Rx#:[id number] Intake, IV Titration 147.673 171.624 Amount propofoL 1,000 mg In 147.673 171.624 Empty Bag 1 bag @ 15 MCG/ KG/MIN 4.291 mls/hr IV . [id number] Rx#:[id number] Tube Feeding 120 20 Other 60 Output: Urine 730 600 65 Other: Voiding Method Indwelling Catheter Indwelling Catheter - Labs CBC & Chem 7: 11/07/24 06:29 11/07/24 06:29 Labs: Abnormal Lab Results - Last 24 Hours (Table) 11/06/24 11/06/24 11/07/24 Range/Units 19:41 22:38 04:57 WBC (3.8-10.6) k/uL RBC (3.80-5.40) m/uL Hgb (11.4-16.0) gm/dL Hct (34.0-46.0) % MCV (80.0-100.0) fL MCHC (31.0-37.0) g/dL RDW (11.5-15.5) % Plt Count (150-450) k/uL Neutrophils # (1.3-7.7) k/uL Macrocytosis ABG pH 7.17 L* (7.35-7.45) ABG pCO2 66 H (35-45) mmHg ABG pO2 70 L (83-108) mmHg ABG Total CO2 26 H (19-24) mmol/L ABG O2 Saturation 90.5 L (94-97) % Hemoglobin 7.8 L (11.4-16.0) gm/dL Chloride (98-107) mmol/L Carbon Dioxide (22-30) mmol/L Glucose (74-99) mg/dL POC Glucose (mg/dL) (70-110) mg/dL Plasma Lactic Acid Memo 3.9 H* 3.1 H* (0.7-2.0) mmol/L Calcium (8.4-10.2) mg/dL AST (14-36) U/L ALT (4-34) U/L Alkaline Phosphatase (38-126) U/L C-Reactive Protein (<1.0) mg/dL Total Protein (6.3-8.2) g/dL Albumin (3.5-5.0) g/dL 11/07/24 11/07/24 11/07/24 Range/Units 06:29 06:29 11:35 WBC 38.9 H (3.8-10.6) k/uL RBC 2.75 L (3.80-5.40) m/uL Hgb 8.2 L D (11.4-16.0) gm/dL Hct 29.7 L (34.0-46.0) % MCV 108.1 H (80.0-100.0) fL MCHC 27.7 L (31.0-37.0) g/dL RDW 15.6 H (11.5-15.5) % Plt Count 659 H (150-450) k/uL Neutrophils # 36.6 H (1.3-7.7) k/uL Macrocytosis Marked A ABG pH 7.21 L (7.35-7.45) ABG pCO2 59 H (35-45) mmHg ABG pO2 145 H (83-108) mmHg ABG Total CO2 25 H (19-24) mmol/L ABG O2 Saturation 99.1 H (94-97) % Hemoglobin 7.6 L (11.4-16.0) gm/dL Chloride 111 H (98-107) mmol/L Carbon Dioxide 21 L (22-30) mmol/L Glucose 72 L (74-99) mg/dL POC Glucose (mg/dL) (70-110) mg/dL Plasma Lactic Acid Memo (0.7-2.0) mmol/L Calcium 8.0 L (8.4-10.2) mg/dL AST 277 H (14-36) U/L ALT 111 H (4-34) U/L Alkaline Phosphatase 137 H (38-126) U/L C-Reactive Protein 26.5 H (<1.0) mg/dL Total Protein 5.7 L (6.3-8.2) g/dL Albumin 2.7 L (3.5-5.0) g/dL 11/07/24 11/07/24 Range/Units 12:23 18:15 WBC (3.8-10.6) k/uL RBC (3.80-5.40) m/uL Hgb (11.4-16.0) gm/dL Hct (34.0-46.0) % MCV (80.0-100.0) fL MCHC (31.0-37.0) g/dL RDW (11.5-15.5) % Plt Count (150-450) k/uL Neutrophils # (1.3-7.7) k/uL Macrocytosis ABG pH (7.35-7.45) ABG pCO2 (35-45) mmHg ABG pO2 (83-108) mmHg ABG Total CO2 (19-24) mmol/L ABG O2 Saturation (94-97) % Hemoglobin (11.4-16.0) gm/dL Chloride (98-107) mmol/L Carbon Dioxide (22-30) mmol/L Glucose (74-99) mg/dL POC Glucose (mg/dL) 68 L 114 H (70-110) mg/dL Plasma Lactic Acid Memo (0.7-2.0) mmol/L Calcium (8.4-10.2) mg/dL AST (14-36) U/L ALT (4-34) U/L Alkaline Phosphatase (38-126) U/L C-Reactive Protein (<1.0) mg/dL Total Protein (6.3-8.2) g/dL Albumin (3.5-5.0) g/dL Microbiology - Last 24 Hours (Table) 11/07/24 04:15 Gram Stain - Preliminary Sputum Assessment and Plan Time with Patient: Less than 30
[2024-11-07] MEDS: PROPRANOLOL 20 MG TAB PO SCH (20:07)
[2024-11-07 22:11] LABS: Glucose,Whole Blood 102 mg/dL (70-110)
--- NOTE | 2024-11-07 23:45 | P.PCN ---
Date of Procedure: 11/07/24 Preoperative Diagnosis: Acute hypoxemic and hypercapnic respiratory failure Postoperative Diagnosis: Acute hypoxemic and hypercapnic respiratory failure Procedure(s) Performed: Insertion of the left brachial arterial line Indications for Procedure: Hemodynamic monitoring and frequent blood draws Description of Procedure: Informed consent was obtained, and a procedural timeout was performed . The patient was placed in supine position. The left brachial region was prepared in a sterile fashion, and a sterile drape was applied. Area was locally anesthetized with 1% lidocaine. The left brachial artery was palpated, easily cannulated, and a guidewire was placed. A Cook catheter was inserted over the guidewire, and the guidewire was removed. There was good arterial blood flow, good arterial waveform, and no complications. The line was secured with using a 3-0 silk suture.
[2024-11-07 23:48] LABS: Glucose,Whole Blood 88 mg/dL (70-110)
[2024-11-08 04:13] LABS: Glucose,Whole Blood 114 mg/dL (70-110)
[2024-11-08 05:09] LABS: ALT 73 U/L (4-34); AST 71 U/L (14-36); African American GFR (CKD) >90 (>60 ml/min/1.73 sqM); Albumin 2.1 g/dL (3.5-5.0); Alkaline Phosphatase 122 U/L (38-126); Anion Gap 6 mmol/L; Blood Urea Nitrogen 19 mg/dL (7-17); Calcium 8.3 mg/dL (8.4-10.2); Carbon Dioxide 24 mmol/L (22-30); Chloride 115 mmol/L (98-107); Glucose 103 mg/dL (74-99); Magnesium 1.7 mg/dL (1.6-2.3); Non-African American GFR(CKD) 79 (>60 ml/min/1.73 sqM); Potassium 3.3 mmol/L (3.5-5.1); Sodium 145 mmol/L (137-145); Total Bilirubin 0.2 mg/dL (0.2-1.3); Total Protein 4.7 g/dL (6.3-8.2)
[2024-11-08 05:19] LABS: ABG Base Excess -3.2 mmol/L; ABG HCO3 24 mmol/L (21-25); ABG Oxygen Saturation 98.2 % (94-97); ABG PCO2 56 mmHg (35-45); ABG PH 7.24 (7.35-7.45); ABG PO2 110 mmHg (83-108); ABG TCO2 26 mmol/L (19-24)
[2024-11-08] MEDS ORDERED: Magnesium Replacement Protocol 1 EACH MISC MISCELLANE PRN (05:20)
[2024-11-08 05:33] LABS: Anisocytosis Slight; Basophils % (A) 0 %; Eosinophils # (A) 0.1 k/uL (0-0.7); Eosinophils % (A) 0 %; HCT 24.3 % (34.0-46.0); Hypochromasia Marked; Lymphocytes # (A) 1.1 k/uL (1.0-4.8); Lymphocytes % (A) 6 %; MCH 30.3 pg (25.0-35.0); MCHC 28.7 g/dL (31.0-37.0); MCV 105.6 fL (80.0-100.0); Macrocytosis Moderate; Mean Platelet Volume 7.5; Monocytes # (A) 0.3 k/uL (0-1.0); Monocytes % (A) 2 %; Neutrophils % (A) 91 %; Platelet Count 505 k/uL (150-450); RDW 16.2 % (11.5-15.5); WBC 18.7 k/uL (3.8-10.6)
[2024-11-08 05:36] LABS: Allen Test Performed? No
[2024-11-08] MEDS: MAGNESIUM SULFATE-D5W PMX 1 GM in DEXTROSE/WATER 1 100ML.BAG IVPB ONE (05:43)
[2024-11-08] MEDS: POTASSIUM BICARBONATE/CIT AC 20 MEQ TABLET.EFF NG-TUBE SCH (05:44)
[2024-11-08 05:52] LABS: Glucose,Whole Blood 104 mg/dL (70-110)
--- NOTE | 2024-11-08 07:14 | XR ---
EXAMINATION TYPE: XR chest 1V portable DATE OF EXAM: 11/08/2024 5:34 AM COMPARISON: Chest radiographs from 11/07/2024 CLINICAL INDICATION: Female, 54 years old with history of mechanical ventilation; TECHNIQUE: XR chest 1V portable Frontal view of the chest. FINDINGS: Lungs/Pleura: There is no evidence of pleural effusion, focal consolidation, or pneumothorax. Pulmonary vascularity: Unremarkable. Heart/mediastinum: Cardiomediastinal silhouette is unremarkable. Musculoskeletal: No acute osseous pathology. There is fixation hardware in the lower cervical spine. Other findings: None Lines/Tubes: Endotracheal tube with distal tip above the sergo. Evaluation obscured by fixation hardware. Nasogastric tube with its distal tip and side-port projecting under the diaphragm. IMPRESSION: 1. Interstitial opacities of the lungs correlate for atypical pneumonia. 2. Extensive fixation hardware throughout spine limits evaluation. Endotracheal tube is thought to b e above the sergo. [facility], , 11/08/2024 7:12 AM
--- NOTE | 2024-11-08 07:35 | P.PN ---
Subjective Progress Note Date: 11/08/24 Principal diagnosis: AMS/Nonresponsive Recent back surgery Patient seen and examined this morning. Patient on mechanical ventilator with a PEEP of 5.0 and FiO2 at 40%. Patient is moderately sedated on Propofol. She continues on cefepime and vancomycin. Surgical dressing is clean dry and intact to the thoracic spine. Howell catheter is present and patent with adequate outp ut. No acute changes overnight. Objective - Vital Signs Vital signs: Vital Signs Temp 99.8 F H 11/08/24 04:00 Pulse 85 11/08/24 07:00 Resp 30 H 11/08/24 07:00 BP 93/52 11/07/24 23:30 Pulse Ox 99 11/08/24 07:00 FiO2 40 11/08/24 04:05 Intake & Output 11/07/24 11/08/24 11/08/24 18:59 06:59 18:59 Intake Total 2136.624 2635.915 178 Output Total 600 655 60 Balance 2189.479 9576.915 118 Weight 46.3 kg 50.2 kg Intake: IV 1785 1601 138 0.9 1500 1500 125 0.9 @ KVO 60 80 10 Cefepime 2 gm In Sodium 100 Chloride 0.9% 100 ml @ 200 mls/hr IVPB ONCE STA Rx#:[id number] Pressure Bag 0.9% NS 21 3 Vancomycin 750 mg In 125 Sodium Chloride 0.9% 250 ml @ 125 mls/hr IVPB ONCE ONE Rx#:[id number] Intake, IV Titration 171.624 584.915 Amount Cefepime 2 gm In Sodium 100 Chloride 0.9% 100 ml @ 25 mls/hr IVPB Q12H [facility] Rx# :[id number] Magnesium Sulfate-D5w Pmx 100 1 gm In Dextrose/Water 1 100ml.bag @ 100 mls/hr IVPB ONCE ONE Rx#: [id number] Vancomycin 750 mg In 250 Sodium Chloride 0.9% 250 ml @ 125 mls/hr IVPB Q16H [facility] Rx#:[id number] propofoL 1,000 mg In 171.624 134.915 Empty Bag 1 bag @ 15 MCG/ KG/MIN 4.291 mls/hr IV . [id number] [facility] Rx#:[id number] Tube Feeding 120 360 40 Other 60 90 Output: Urine 600 655 60 Other: Voiding Method Indwelling Catheter Indwelling Catheter ABP, PAP, CO, CI - Last Documented Arterial Blood Pressure 96/46 - Exam General: The patient is currently on mechanical ventilation, in no acute distress Skin: Skin is warm and dry with no obvious rashes or lesions. Surgical incision to the thoracic spine, dressing is clean dry and intact. There is mild edema to patients hands. No clubbing, no cyanosis. Peripheral pulses are intact. Limited exam due to patient's status. - Labs CBC & Chem 7: 11/08/24 04:10 11/08/24 04:10 Labs: Abnormal Lab Results - Last 24 Hours (Table) 11/07/24 11/07/24 11/07/24 Range/Units 06:29 06:29 11:35 WBC 38.9 H (3.8-10.6) k/uL RBC 2.75 L (3.80-5.40) m/uL Hgb 8.2 L D (11.4-16.0) gm/dL Hct 29.7 L (34.0-46.0) % MCV 108.1 H (80.0-100.0) fL MCHC 27.7 L (31.0-37.0) g/dL RDW 15.6 H (11.5-15.5) % Plt Count 659 H (150-450) k/uL Neutrophils # 36.6 H (1.3-7.7) k/uL Macrocytosis Marked A ABG pH 7.21 L (7.35-7.45) ABG pCO2 59 H (35-45) mmHg ABG pO2 145 H (83-108) mmHg ABG Total CO2 25 H (19-24) mmol/L ABG O2 Saturation 99.1 H (94-97) % Hemoglobin 7.6 L (11.4-16.0) gm/dL Potassium (3.5-5.1) mmol/L Chloride 111 H (98-107) mmol/L Carbon Dioxide 21 L (22-30) mmol/L BUN (7-17) mg/dL Glucose 72 L (74-99) mg/dL POC Glucose (mg/dL) (70-110) mg/dL Calcium 8.0 L (8.4-10.2) mg/dL AST 277 H (14-36) U/L ALT 111 H (4-34) U/L Alkaline Phosphatase 137 H (38-126) U/L C-Reactive Protein 26.5 H (<1.0) mg/dL Total Protein 5.7 L (6.3-8.2) g/dL Albumin 2.7 L (3.5-5.0) g/dL 11/07/24 11/07/24 11/08/24 Range/Units 12:23 18:15 04:10 WBC 18.7 H (3.8-10.6) k/uL RBC 2.30 L (3.80-5.40) m/uL Hgb 7.0 L (11.4-16.0) gm/dL Hct 24.3 L (34.0-46.0) % MCV 105.6 H (80.0-100.0) fL MCHC 28.7 L (31.0-37.0) g/dL RDW 16.2 H (11.5-15.5) % Plt Count 505 H (150-450) k/uL Neutrophils # 17.0 H (1.3-7.7) k/uL Macrocytosis ABG pH (7.35-7.45) ABG pCO2 (35-45) mmHg ABG pO2 (83-108) mmHg ABG Total CO2 (19-24) mmol/L ABG O2 Saturation (94-97) % Hemoglobin (11.4-16.0) gm/dL Potassium (3.5-5.1) mmol/L Chloride (98-107) mmol/L Carbon Dioxide (22-30) mmol/L BUN (7-17) mg/dL Glucose (74-99) mg/dL POC Glucose (mg/dL) 68 L 114 H (70-110) mg/dL Calcium (8.4-10.2) mg/dL AST (14-36) U/L ALT (4-34) U/L Alkaline Phosphatase (38-126) U/L C-Reactive Protein (<1.0) mg/dL Total Protein (6.3-8.2) g/dL Albumin (3.5-5.0) g/dL 11/08/24 11/08/24 11/08/24 Range/Units 04:10 04:11 05:15 WBC (3.8-10.6) k/uL RBC (3.80-5.40) m/uL Hgb (11.4-16.0) gm/dL Hct (34.0-46.0) % MCV (80.0-100.0) fL MCHC (31.0-37.0) g/dL RDW (11.5-15.5) % Plt Count (150-450) k/uL Neutrophils # (1.3-7.7) k/uL Macrocytosis ABG pH 7.24 L (7.35-7.45) ABG pCO2 56 H (35-45) mmHg ABG pO2 110 H (83-108) mmHg ABG Total CO2 26 H (19-24) mmol/L ABG O2 Saturation 98.2 H (94-97) % Hemoglobin 7.1 L (11.4-16.0) gm/dL Potassium 3.3 L (3.5-5.1) mmol/L Chloride 115 H (98-107) mmol/L Carbon Dioxide (22-30) mmol/L BUN 19 H (7-17) mg/dL Glucose 103 H (74-99) mg/dL POC Glucose (mg/dL) 114 H (70-110) mg/dL Calcium 8.3 L (8.4-10.2) mg/dL AST 71 H (14-36) U/L ALT 73 H (4-34) U/L Alkaline Phosphatase (38-126) U/L C-Reactive Protein (<1.0) mg/dL Total Protein 4.7 L (6.3-8.2) g/dL Albumin 2.1 L (3.5-5.0) g/dL Microbiology - Last 24 Hours (Table) 11/06/24 12:36 Blood Culture - Preliminary Blood 11/07/24 04:15 Gram Stain - Preliminary Sputum Assessment and Plan Assessment: Altered mental status/unresponsive Postop day 12: open treatment T8 fracture; irrigation and excisional debridement of thoracic spine wound; posterior lateral instrumented fusion T7-T11 Plan: At this time we do not recommend any emergent/urgent orthopedic surgical intervention. 2. Appreciate medical management 3. Pain management - Continue with current regimen, Utilize ice therapy 20min every hour as needed. 4. Bedrest; may perform bed exercises and ROM of extremities as tolerated. 7. Appreciate consult.
[2024-11-08] MEDS: TOPIRAMATE 25 MG TAB PO SCH (08:05)
[2024-11-08] MEDS: TAMSULOSIN 0.4 MG CAP.ER.24H PO SCH (08:05)
[2024-11-08] MEDS: SERTRALINE 100 MG TAB PO SCH (08:05)
[2024-11-08] MEDS: methylPREDNISolone SOD SUCCI 40 MG/ML 1 ML VIAL IV SCH (10:41)
--- NOTE | 2024-11-08 11:08 | P.PN ---
Subjective Progress Note Date: 11/08/24 This is a 54-year-old female patient with a known history of COPD, hypertension, hyperlipidemia, coronary disease, congestive heart failure, DVT, hypothyroidism, seizure disorder, multiple previous back surgeries. She had most recently undergone a C2-T7 posterior lateral fusion on 09/09/2024. She developed a significant infection and wound dehiscence and was back here in the hospital and had undergone irrigation and excisional debridement of a thoracic spine wound on 10/27/2024 and discharged to home on 11/02/2024. She was brought back here to the emergency room earlier this morning after being found obtunded and unresponsive by her . She was intubated here in the emergency department. Chest x- ray revealed bilateral upper interstitial opacities concerning for pneumonia versus fluid volume overload. Evidence of COPD. Endotracheal tube and nasogastric tubes in position. CT scan of the brain revealed no acute intracranial process. CT angiogram ruled out pulmonary embolism. There is b ilateral upper lobe reticular opacities with right greater than left raising concerns for infection. Few foci of gas identified within the left supraclavicular region and left anterior chest wall possibly with venous vasculature. CT scan of the thoracic spine reveals extensive postsurgical changes. No gross evidence of complication. White count 9.0. Hemoglobin 10.6. Platelets 800,000. INR 0.9. Sodium 144. Potassium 4.0. Bicarb 27. BUN 16. Creatinine 0.96. Glucose 111. Lactic acid 3.0. AST 86. ALT 39. Troponin 0.044. Urinalysis clean. Drug urine screen is positive for opiates, barbiturates, antidepressants, benzodiazepines and marijuana. Initial arterial blood gases on 100% FiO2 revealed a PaO2 of 34, pCO2 89 and a pH of 7.07. Follow-up blood gases on the mechanical ventilator on 100% revealed a PaO2 greater than 420, pCO2 61 and a pH of 7.20. Her current vent settings are assist-control mode at a rate of 26, tidal volume 320 and FiO2 50% and a PEEP of 5. She is sedated on propofol at 50 mcg/kg/h. She has been initiated on vancomycin and cefepime. Received Narcan without improvement initially. She received 2 L of fluid resuscitation. 11/07/2024: Patient is a 54 year old female who was admmited to the ICU on 11/06/2024 with acute hypoxic respiratory failure. She arrived to ED unresponsive. Initially thought it was narcotic overdose. Did not improve with narcan. Ultimately intubated and mechanically ventillated on 11/06 . Patient tested positive for opiates, barbiturates, tricyclic's, benzodiazepines, and marijuana. Her underlying problems include COPD, hypertension, hyperlipidemia, coronary disease, congestive heart failure, DVT, hypothyroidism, seizure disorder, multiple previous back surgeries, T2 vertebral fracture with revision of C2-T7 posterior lateral fusion on 09/09/2024 patient developed surgical wound infection and dehiscence of wound. Patient was seen today 11/07/2024. Remains intubated and mechanically ventillated on assist controlled at a rate of 30, tidal volume 320, FiO2 50%, PEEP of 5. ABG: pH 7.17/pCO2 66 /pO2 70. Currently on propofol 50 mcg/kg/min and normal saline 0.9% at 125 cc/hr. No acute events overnight. Repeat CXR showing bilateral pleural and interstitial opacities. Labs WBC 38.9 Hgb 8.2, platelets 659, CO2 21, anion gap 11, BUN 16, creatinine 0.96 CRP 26.5. Patient currently on IV vancomycin dosed by pharmacy and cefepime 2 g IVPB every 12 hours. Blood cultures are pending. MRSA/MSSA screening pending. Currently not on any tube feeding. The patient is seen on 11/08/2024 in room 262. She remains on volume assist- control, rate 30, tidal volume 320, FiO2 40%, PEEP of 5. Most recent blood gases show pO2 of 110, pCO2 of 56, pH is 7.24. The patient is on propofol at 50 mcg/kg/min, saline at 125 cc an hour which we will decrease to 75cc an hour d/t suspected dillutional anemia, and vancomycin and cefepime. Tube feedings VITAL HP 40 cc/hr which is goal. Blood cultures showing no growth. Left brachial ART line was placed last night. All labs, x-rays, and medications are reviewed. CXR showing bilateral interstitial opacities. White count 18.7, hemoglobin 7.0, platelet count 505,000. BUN was 19, creatinine was 0.85. We will continue to follow make recommendations along the way. All labs, x-rays, and medications ar e reviewed. The patient has a history of underlying COPD, hypertension, hyperlipidemia, coronary disease, heart failure, DVT, hypothyroidism, seizure disorder, and multiple surgical procedures on her cervical and thoracic spine. Prognosis is guarded. Objective - Vital Signs Vital signs: Vital Signs Temp 99.8 F H 11/08/24 04:00 Pulse 85 11/08/24 07:00 Resp 30 H 11/08/24 07:00 BP 93/52 11/07/24 23:30 Pulse Ox 99 11/08/24 07:00 FiO2 40 11/08/24 04:05 Intake & Output 11/07/24 11/08/24 11/08/24 18:59 06:59 18:59 Intake Total 2136.624 2635.915 178 Output Total 600 655 60 Balance 6287.408 2604.915 118 Weight 46.3 kg 50.2 kg Intake: IV 1785 1601 138 0.9 1500 1500 125 0.9 @ KVO 60 80 10 Cefepime 2 gm In Sodium 100 Chloride 0.9% 100 ml @ 200 mls/hr IVPB ONCE STA Rx#:[id number] Pressure Bag 0.9% NS 21 3 Vancomycin 750 mg In 125 Sodium Chloride 0.9% 250 ml @ 125 mls/hr IVPB ONCE ONE Rx#:[id number] Intake, IV Titration 171.624 584.915 Amount Cefepime 2 gm In Sodium 100 Chloride 0.9% 100 ml @ 25 mls/hr IVPB Q12H [facility] Rx# :[id number] Magnesium Sulfate-D5w Pmx 100 1 gm In Dextrose/Water 1 100ml.bag @ 100 mls/hr IVPB ONCE ONE Rx#: [id number] Vancomycin 750 mg In 250 Sodium Chloride 0.9% 250 ml @ 125 mls/hr IVPB Q16H [facility] Rx#:[id number] propofoL 1,000 mg In 171.624 134.915 Empty Bag 1 bag @ 15 MCG/ KG/MIN 4.291 mls/hr IV . [id number] [facility] Rx#:[id number] Tube Feeding 120 360 40 Other 60 90 Output: Urine 600 655 60 Other: Voiding Method Indwelling Catheter Indwelling Catheter ABP, PAP, CO, CI - Last Documented Arterial Blood Pressure 96/46 - Labs CBC & Chem 7: 11/08/24 04:10 11/08/24 04:10 Labs: Abnormal Lab Results - Last 24 Hours (Table) 11/07/24 11/07/24 11/07/24 Range/Units 06:29 06:29 11:35 WBC 38.9 H (3.8-10.6) k/uL RBC 2.75 L (3.80-5.40) m/uL Hgb 8.2 L D (11.4-16.0) gm/dL Hct 29.7 L (34.0-46.0) % MCV 108.1 H (80.0-100.0) fL MCHC 27.7 L (31.0-37.0) g/dL RDW 15.6 H (11.5-15.5) % Plt Count 659 H (150-450) k/uL Neutrophils # 36.6 H (1.3-7.7) k/uL Macrocytosis Marked A ABG pH 7.21 L (7.35-7.45) ABG pCO2 59 H (35-45) mmHg ABG pO2 145 H (83-108) mmHg ABG Total CO2 25 H (19-24) mmol/L ABG O2 Saturation 99.1 H (94-97) % Hemoglobin 7.6 L (11.4-16.0) gm/dL Potassium (3.5-5.1) mmol/L Chloride 111 H (98-107) mmol/L Carbon Dioxide 21 L (22-30) mmol/L BUN (7-17) mg/dL Glucose 72 L (74-99) mg/dL POC Glucose (mg/dL) (70-110) mg/dL Calcium 8.0 L (8.4-10.2) mg/dL AST 277 H (14-36) U/L ALT 111 H (4-34) U/L Alkaline Phosphatase 137 H (38-126) U/L C-Reactive Protein 26.5 H (<1.0) mg/dL Total Protein 5.7 L (6.3-8.2) g/dL Albumin 2.7 L (3.5-5.0) g/dL 11/07/24 11/07/24 11/08/24 Range/Units 12:23 18:15 04:10 WBC 18.7 H (3.8-10.6) k/uL RBC 2.30 L (3.80-5.40) m/uL Hgb 7.0 L (11.4-16.0) gm/dL Hct 24.3 L (34.0-46.0) % MCV 105.6 H (80.0-100.0) fL MCHC 28.7 L (31.0-37.0) g/dL RDW 16.2 H (11.5-15.5) % Plt Count 505 H (150-450) k/uL Neutrophils # 17.0 H (1.3-7.7) k/uL Macrocytosis ABG pH (7.35-7.45) ABG pCO2 (35-45) mmHg ABG pO2 (83-108) mmHg ABG Total CO2 (19-24) mmol/L ABG O2 Saturation (94-97) % Hemoglobin (11.4-16.0) gm/dL Potassium (3.5-5.1) mmol/L Chloride (98-107) mmol/L Carbon Dioxide (22-30) mmol/L BUN (7-17) mg/dL Glucose (74-99) mg/dL POC Glucose (mg/dL) 68 L 114 H (70-110) mg/dL Calcium (8.4-10.2) mg/dL AST (14-36) U/L ALT (4-34) U/L Alkaline Phosphatase (38-126) U/L C-Reactive Protein (<1.0) mg/dL Total Protein (6.3-8.2) g/dL Albumin (3.5-5.0) g/dL 11/08/24 11/08/24 11/08/24 Range/Units 04:10 04:11 05:15 WBC (3.8-10.6) k/uL RBC (3.80-5.40) m/uL Hgb (11.4-16.0) gm/dL Hct (34.0-46.0) % MCV (80.0-100.0) fL MCHC (31.0-37.0) g/dL RDW (11.5-15.5) % Plt Count (150-450) k/uL Neutrophils # (1.3-7.7) k/uL Macrocytosis ABG pH 7.24 L (7.35-7.45) ABG pCO2 56 H (35-45) mmHg ABG pO2 110 H (83-108) mmHg ABG Total CO2 26 H (19-24) mmol/L ABG O2 Saturation 98.2 H (94-97) % Hemoglobin 7.1 L (11.4-16.0) gm/dL Potassium 3.3 L (3.5-5.1) mmol/L Chloride 115 H (98-107) mmol/L Carbon Dioxide (22-30) mmol/L BUN 19 H (7-17) mg/dL Glucose 103 H (74-99) mg/dL POC Glucose (mg/dL) 114 H (70-110) mg/dL Calcium 8.3 L (8.4-10.2) mg/dL AST 71 H (14-36) U/L ALT 73 H (4-34) U/L Alkaline Phosphatase (38-126) U/L C-Reactive Protein (<1.0) mg/dL Total Protein 4.7 L (6.3-8.2) g/dL Albumin 2.1 L (3.5-5.0) g/dL Microbiology - Last 24 Hours (Table) 11/06/24 12:36 Blood Culture - Preliminary Blood 11/07/24 04:15 Gram Stain - Preliminary Sputum Assessment and Plan Assessment: Altered mental status, obtunded requiring intubation and mechanical ventilatory support. Suspect secondary to narcotics. Urine drug screen positive for opiates, barbiturates, tricyclic antidepressants, benzodiazepines and marijuana Acute hypoxemic and hypercapnic respiratory failure secondary to above Discharge from the hospital following surgery on 10/27/2024 for open treatment of a T8 fracture, irrigation and excisional debridement of thoracic spine wound measuring 10 x 7 x 4 cm, posterior lateral instrumented fusion of T7-T11 and cement augmentation of T8-T10 vertebral bodies. Chronic obstructive pulmonary disease/asthma, currently inactive and stable T2 vertebral fracture with revision of C2-T7 posterior lateral fusion on 09/09/2024 Surgical site infection and wound dehiscence, wound and blood cultures revealed no growth Acute leukocytosis, improved Macrocytic anemia Rectal prolapse with bleeding History of hypertension History of hyperlipidemia History of coronary artery disease History of heart failure with preserved ejection fraction History of gastroesophageal reflux disease History of seizure disorder History of hypothyroidism History of anxiety/depression/PTSD Plan: The patient was seen and evaluated Imaging, labs and medications reviewed Currently intubated on the mechanical ventilator ABGs reviewed, appropriate vent changes made Attempt to wean off propofol - on sedation holiday Continue vancomycin and cefepime Maintain vital HP at goal of 40 cc/hr Blood cultures showing no growth so far MRSA/MSSA screening pending Placed on IV solumedrol 40 mg q8hr Will continue to follow in intensive care unit We will continue to follow and make further recommendations based on her clinical status
[2024-11-08] MEDS ORDERED: LORazepam 2 MG/ML INJ IV PRN (11:24)
[2024-11-08 11:40] LABS: Glucose,Whole Blood 110 mg/dL (70-110)
--- NOTE | 2024-11-08 14:30 | P.PN ---
Subjective Progress Note Date: 11/07/24 Principal diagnosis: Reason for follow-up is pneumonia Patient is a 54-year-old female with a past medical history significant for COPD DVT hypertension hyperlipidemia who recently did have a cervical thoracic spine surgery revision for a nonhealing wound to the mid/upper back area patient cultures were negative has been brought to the hospital on the patient was found to be unresponsive requiring elevation and admission to the ICU On today's evaluation that is 11/07/2024, Patient did have a low-grade fever of 99 F patient remains to be intubated on the vent FiO2 currently 40% no significant purulent secretion complete urinary changes reported by the nursing staff. Patient white count is up to 38.9, creatinine 0.96 Objective - Vital Signs Vital signs: Vital Signs Temp 98.1 F 11/07/24 08:00 Pulse 117 H 11/07/24 11:00 Resp 31 H 11/07/24 11:00 BP 113/63 11/07/24 11:00 Pulse Ox 100 11/07/24 11:00 FiO2 40 11/07/24 11:54 Intake & Output 11/06/24 11/07/24 11/07/24 18:59 06:59 18:59 Intake Total 7310.967 7582.673 830.801 Output Total 500 730 275 Balance 600.000 797.673 555.801 Weight 47.673 kg 46.3 kg Intake: IV 1000 1380 725 0.9 1000 1155 500 Cefepime 2 gm In Sodium 100 Chloride 0.9% 100 ml @ 200 mls/hr IVPB ONCE STA Rx#:[id number] Sodium Chloride 0.9% 1, 100 000 ml @ 999 mls/hr IV . Q1H1M ONE Rx#:[id number] Vancomycin 750 mg In 125 125 Sodium Chloride 0.9% 250 ml @ 125 mls/hr IVPB ONCE ONE Rx#:[id number] Intake, IV Titration 100.000 147.673 75.801 Amount propofoL 1,000 mg In 100.000 147.673 75.801 Empty Bag 1 bag @ 15 MCG/ KG/MIN 4.291 mls/hr IV . [id number] [facility] Rx#:[id number] Other 30 Output: Gastric Drainage 400 Urine 100 730 275 Other: Voiding Method Indwelling Catheter Indwelling Catheter Indwelling Catheter - Exam GENERAL DESCRIPTION: Middle-age female intubated on the vent RESPIRATORY SYSTEM: Unlabored breathing , decreased breath sounds at bases HEART: S1 S2 regular rate and rhythm , ABDOMEN: Soft , no tenderness EXTREMITIES: No edema feet - Labs CBC & Chem 7: 11/08/24 04:10 11/08/24 04:10 Labs: Abnormal Lab Results - Last 24 Hours (Table) 11/06/24 11/06/24 11/06/24 Range/Units 16:15 19:41 22:38 WBC (3.8-10.6) k/uL RBC (3.80-5.40) m/uL Hgb (11.4-16.0) gm/dL Hct (34.0-46.0) % MCV (80.0-100.0) fL MCHC (31.0-37.0) g/dL RDW (11.5-15.5) % Plt Count (150-450) k/uL Neutrophils # (1.3-7.7) k/uL Macrocytosis ABG pH (7.35-7.45) ABG pCO2 (35-45) mmHg ABG pO2 (83-108) mmHg ABG Total CO2 (19-24) mmol/L ABG O2 Saturation (94-97) % Hemoglobin (11.4-16.0) gm/dL Chloride (98-107) mmol/L Carbon Dioxide (22-30) mmol/L Glucose (74-99) mg/dL POC Glucose (mg/dL) (70-110) mg/dL Plasma Lactic Acid Memo 3.9 H* 3.9 H* 3.1 H* (0.7-2.0) mmol/L Calcium (8.4-10.2) mg/dL AST (14-36) U/L ALT (4-34) U/L Alkaline Phosphatase (38-126) U/L C-Reactive Protein (<1.0) mg/dL Total Protein (6.3-8.2) g/dL Albumin (3.5-5.0) g/dL 11/07/24 11/07/24 11/07/24 Range/Units 04:57 06:29 06:29 WBC 38.9 H (3.8-10.6) k/uL RBC 2.75 L (3.80-5.40) m/uL Hgb 8.2 L D (11.4-16.0) gm/dL Hct 29.7 L (34.0-46.0) % MCV 108.1 H (80.0-100.0) fL MCHC 27.7 L (31.0-37.0) g/dL RDW 15.6 H (11.5-15.5) % Plt Count 659 H (150-450) k/uL Neutrophils # 36.6 H (1.3-7.7) k/uL Macrocytosis Marked A ABG pH 7.17 L* (7.35-7.45) ABG pCO2 66 H (35-45) mmHg ABG pO2 70 L (83-108) mmHg ABG Total CO2 26 H (19-24) mmol/L ABG O2 Saturation 90.5 L (94-97) % Hemoglobin 7.8 L (11.4-16.0) gm/dL Chloride 111 H (98-107) mmol/L Carbon Dioxide 21 L (22-30) mmol/L Glucose 72 L (74-99) mg/dL POC Glucose (mg/dL) (70-110) mg/dL Plasma Lactic Acid Memo (0.7-2.0) mmol/L Calcium 8.0 L (8.4-10.2) mg/dL AST 277 H (14-36) U/L ALT 111 H (4-34) U/L Alkaline Phosphatase 137 H (38-126) U/L C-Reactive Protein 26.5 H (<1.0) mg/dL Total Protein 5.7 L (6.3-8.2) g/dL Albumin 2.7 L (3.5-5.0) g/dL 11/07/24 11/07/24 Range/Units 11:35 12:23 WBC (3.8-10.6) k/uL RBC (3.80-5.40) m/uL Hgb (11.4-16.0) gm/dL Hct (34.0-46.0) % MCV (80.0-100.0) fL MCHC (31.0-37.0) g/dL RDW (11.5-15.5) % Plt Count (150-450) k/uL Neutrophils # (1.3-7.7) k/uL Macrocytosis ABG pH 7.21 L (7.35-7.45) ABG pCO2 59 H (35-45) mmHg ABG pO2 145 H (83-108) mmHg ABG Total CO2 25 H (19-24) mmol/L ABG O2 Saturation 99.1 H (94-97) % Hemoglobin 7.6 L (11.4-16.0) gm/dL Chloride (98-107) mmol/L Carbon Dioxide (22-30) mmol/L Glucose (74-99) mg/dL POC Glucose (mg/dL) 68 L (70-110) mg/dL Plasma Lactic Acid Memo (0.7-2.0) mmol/L Calcium (8.4-10.2) mg/dL AST (14-36) U/L ALT (4-34) U/L Alkaline Phosphatase (38-126) U/L C-Reactive Protein (<1.0) mg/dL Total Protein (6.3-8.2) g/dL Albumin (3.5-5.0) g/dL Assessment and Plan (1) Pneumonia Current Visit: Yes Status: Acute Code(s): J18.9 - PNEUMONIA, UNSPECIFIED ORGANISM SNOMED Code(s): 104321798 (2) Abnormal CT scan, chest Current Visit: Yes Status: Acute Code(s): R93.89 - ABNORMAL FINDINGS ON DX IMAGING OF OTH BODY STRUCTURES SNOMED Code(s): 71146777397140456 (3) Leukocytosis Current Visit: No Status: Acute Code(s): D72.829 - ELEVATED WHITE BLOOD CELL COUNT, UNSPECIFIED SNOMED Code(s): 502922790 Plan: 1patient presented to hospital after the patient was found to be unresponsive at home concerning for possible drug overdose also noted to have significant finding on a chest x-ray and the CT concerning for possible pneumonia question of aspiration etiology in this patient has been around the hospital concerning for possible resistant gram-positive as well as gram-negative pathogen, the thoracic or cervical incision currently looks clean without gross cellulitis or any drainage 2-patient to have worsening of the white count more likely related to steroids will monitor closely, blood and sputum culture currently pending 3-patient to continue with the cefepime and vancomycin while waiting for the culture to finalize at the bedside question answered Dictation was produced using dragon dictation software. please excuse any grammatical, word or spelling errors. Time with Patient: Less than 30
--- NOTE | 2024-11-08 14:31 | P.PN ---
Subjective Progress Note Date: 11/08/24 Principal diagnosis: Reason for follow-up is pneumonia Patient is a 54-year-old female with a past medical history significant for COPD DVT hypertension hyperlipidemia who recently did have a cervical thoracic spine surgery revision for a nonhealing wound to the mid/upper back area patient cultures were negative has been brought to the hospital on the patient was found to be unresponsive requiring elevation and admission to the ICU On today's evaluation that is 11/08/2024, Patient did have a low-grade fever of 99.8 F at 4 AM patient is currently intubated on the vent FiO2 stable at 40% no significant purulent secretion through the ET [place] the changes reported sputum is currently growing Pseudomonas blood cultures are pending Objective - Vital Signs Vital signs: Vital Signs Temp 99.1 F 11/08/24 12:00 Pulse 96 11/08/24 14:00 Resp 33 H 11/08/24 14:00 BP 93/52 11/07/24 23:30 Pulse Ox 97 11/08/24 14:00 FiO2 40 11/08/24 12:04 Intake & Output 11/07/24 11/08/24 11/08/24 18:59 06:59 18:59 Intake Total 2136.624 2635.915 1385.287 Output Total 600 655 465 Balance 6452.450 5192.915 920.287 Weight 46.3 kg 50.2 kg Intake: IV 1785 1601 904 0.9 1500 1500 500 0.9 @ KVO 60 80 80 Cefepime 2 gm In Sodium 100 Chloride 0.9% 100 ml @ 200 mls/hr IVPB ONCE STA Rx#:[id number] Pressure Bag 0.9% NS 21 24 Sodium Chloride 0.9% 1, 300 000 ml @ 75 mls/hr IV . [id number] [facility] Rx#:[id number] Vancomycin 750 mg In 125 Sodium Chloride 0.9% 250 ml @ 125 mls/hr IVPB ONCE ONE Rx#:[id number] Intake, IV Titration 171.624 584.915 101.287 Amount Cefepime 2 gm In Sodium 100 Chloride 0.9% 100 ml @ 25 mls/hr IVPB Q12H [facility] Rx# :[id number] Magnesium Sulfate-D5w Pmx 100 1 gm In Dextrose/Water 1 100ml.bag @ 100 mls/hr IVPB ONCE ONE Rx#: [id number] Vancomycin 750 mg In 250 Sodium Chloride 0.9% 250 ml @ 125 mls/hr IVPB Q16H [facility] Rx#:[id number] propofoL 1,000 mg In 171.624 134.915 101.287 Empty Bag 1 bag @ 15 MCG/ KG/MIN 4.291 mls/hr IV . [id number] [facility] Rx#:[id number] Tube Feeding 120 360 320 Other 60 90 60 Output: Urine 600 655 465 Other: Voiding Method Indwelling Catheter Indwelling Catheter Indwelling Catheter ABP, PAP, CO, CI - Last Documented Arterial Blood Pressure 140/70 - Exam GENERAL DESCRIPTION: Middle-age female intubated on the vent RESPIRATORY SYSTEM: Unlabored breathing , decreased breath sounds at bases HEART: S1 S2 regular rate and rhythm , ABDOMEN: Soft , no tenderness EXTREMITIES: No edema feet - Labs CBC & Chem 7: 11/08/24 04:10 11/08/24 04:10 Labs: Abnormal Lab Results - Last 24 Hours (Table) 11/07/24 11/08/24 11/08/24 Range/Units 18:15 04:10 04:10 WBC 18.7 H (3.8-10.6) k/uL RBC 2.30 L (3.80-5.40) m/uL Hgb 7.0 L (11.4-16.0) gm/dL Hct 24.3 L (34.0-46.0) % MCV 105.6 H (80.0-100.0) fL MCHC 28.7 L (31.0-37.0) g/dL RDW 16.2 H (11.5-15.5) % Plt Count 505 H (150-450) k/uL Neutrophils # 17.0 H (1.3-7.7) k/uL ABG pH (7.35-7.45) ABG pCO2 (35-45) mmHg ABG pO2 (83-108) mmHg ABG Total CO2 (19-24) mmol/L ABG O2 Saturation (94-97) % Hemoglobin (11.4-16.0) gm/dL Potassium 3.3 L (3.5-5.1) mmol/L Chloride 115 H (98-107) mmol/L BUN 19 H (7-17) mg/dL Glucose 103 H (74-99) mg/dL POC Glucose (mg/dL) 114 H (70-110) mg/dL Calcium 8.3 L (8.4-10.2) mg/dL AST 71 H (14-36) U/L ALT 73 H (4-34) U/L Total Protein 4.7 L (6.3-8.2) g/dL Albumin 2.1 L (3.5-5.0) g/dL 11/08/24 11/08/24 Range/Units 04:11 05:15 WBC (3.8-10.6) k/uL RBC (3.80-5.40) m/uL Hgb (11.4-16.0) gm/dL Hct (34.0-46.0) % MCV (80.0-100.0) fL MCHC (31.0-37.0) g/dL RDW (11.5-15.5) % Plt Count (150-450) k/uL Neutrophils # (1.3-7.7) k/uL ABG pH 7.24 L (7.35-7.45) ABG pCO2 56 H (35-45) mmHg ABG pO2 110 H (83-108) mmHg ABG Total CO2 26 H (19-24) mmol/L ABG O2 Saturation 98.2 H (94-97) % Hemoglobin 7.1 L (11.4-16.0) gm/dL Potassium (3.5-5.1) mmol/L Chloride (98-107) mmol/L BUN (7-17) mg/dL Glucose (74-99) mg/dL POC Glucose (mg/dL) 114 H (70-110) mg/dL Calcium (8.4-10.2) mg/dL AST (14-36) U/L ALT (4-34) U/L Total Protein (6.3-8.2) g/dL Albumin (3.5-5.0) g/dL Microbiology - Last 24 Hours (Table) 11/07/24 04:15 Gram Stain - Preliminary Sputum Sputum Culture - Preliminary Pseudomonas aeruginosa 11/06/24 12:36 Blood Culture - Preliminary Blood Assessment and Plan (1) Pneumonia Current Visit: Yes Status: Acute Code(s): J18.9 - PNEUMONIA, UNSPECIFIED ORGANISM SNOMED Code(s): 385399323 (2) Abnormal CT scan, chest Current Visit: Yes Status: Acute Code(s): R93.89 - ABNORMAL FINDINGS ON DX IMAGING OF OTH BODY STRUCTURES SNOMED Code(s): 09473880254829558 (3) Leukocytosis Current Visit: No Status: Acute Code(s): D72.829 - ELEVATED WHITE BLOOD CELL COUNT, UNSPECIFIED SNOMED Code(s): 223257818 Plan: 1patient presented to hospital after the patient was found to be unresponsive at home concerning for possible drug overdose also noted to have significant finding on a chest x-ray and the CT concerning for possible pneumonia question of aspiration etiology in this patient has been around the hospital concerning for possible resistant gram-positive as well as gram-negative pathogen, the thoracic or cervical incision currently looks clean without gross cellulitis or any drainage 2-patient white count is trending down blood culture so far negative sputum is growing Pseudomonas 3-patient to continue with the cefepime however discontinue vancomycin as no MRSA growing so far Dictation was produced using [employer] dictation software. please excuse any grammatical, word or spelling errors. Time with Patient: Less than 30
[2024-11-08 17:19] LABS: Glucose,Whole Blood 153 mg/dL (70-110)
--- NOTE | 2024-11-08 18:33 | P.PN ---
Subjective Progress Note Date: 11/08/24 Patient is evaluated today in follow up in the intensive care unit. Patient remains intubated on the mechanical ventilator with PEEP of 5 and FiO2 of 40%. Patient remains sedated. LFTs remain elevated, white blood cell count up to 38. Blood culture pending. Patient continues on IV Vancomycin and IV cefepime. ID following. Chest xray today reveals stable upper lobe interstitial opacities. Spinal surgery evaluated the patient felt the wound was noninfectious and healing well. Patients heart rate has been in the 120s was resumed on home medication of propanolol and has had improvement in the heart rate down to the 80s this afternoon. 11/08/2024 Patient is evaluated today in follow up in the ICU. Remains intubated and sedated on the mechanical ventilator with settings at PEEP of 5 and 40% FiO2. Chest xray today reveals interstitial opacities correlating for atypical pneumonia. There is extensive fixation hardware throughout the spine. White blood cell count of 18.7, hgb 7.0, MCV 105.6. Magnesium 1.2, potassium 3.3. Remains on IV cefepime, IV vancomycin. Has been started on systemic steroids. P atient with low grade temp of 99.8 today. Blood pressure low/normal. Unable to complete review of systems patient is currently intubated and sedated. Physical Examination GENERAL EXAM: Intubated, mechanically ventilated, thin 54-year-old female, on the ventilator, in no apparent distress. HEAD: Normocephalic. Normal reaction of pupils, equal size. THROAT: No erythema or exudates. NECK: No masses, no JVD. CHEST: No chest wall deformity. LUNGS: Equal air entry with no crackles, wheeze, rhonchi or dullness. CVS: S1 and S2 normal with no audible murmur, regular rhythm. ABDOMEN: No hepatosplenomegaly, normal bowel sounds, no guarding or rigidity. SPINE: No scoliosis or deformity. Surgical dressing dry and intact. SKIN: No rashes CENTRAL NERVOUS SYSTEM: Sedated, tone is normal in all 4 extremities. EXTREMITIES: There is no peripheral edema. No clubbing, no cyanosis. Peripheral pulses are intact. Assessment and Plan -Altered mental status/unresponsive, likely related to narcotics versus sepsis -Unable to rule out aspiration pneumonia -Acute hypoxic/hypercapnic respiratory failure; as indicated above; patient remains intubated with mechanical ventilation -Surgical site infection/wound dehiscence and Patient is status post surgery on 10/27/2024 for open treatment of a T8 fracture, irrigation and excisional debridement of thoracic spine wound measuring 10 x 7 x 4 cm, posterior lateral instrumented fusion of T7-T11 and cement augmentation of T8-T10 vertebral bodies; Orthopedic surgery consulted and felt the wound was noninfectious and healing well. -Leukocytosis/sepsis; continue with IV antibiotics as indicated above; patient has been pancultured -History of hypertension; propranolol 20 mg twice daily has been resumed; prazosin 2 mg twice daily on hold -Macroctyic anemia -Hyperlipidemia; currently not on any statin therapy -Hypothyroidism; levothyroxine 88 mcg daily -History of CAD -Chronic heart failure with preserved EF with no acute exacerbation -History of COPD/Asthma -PTSD/Bipolar/Borderline personality -Chronic nicotine use -Polysubstance use -Rectal prolapse -Hx seizure disorder -Gastroesophageal reflux DVT prophylaxis; SCDs/subcu heparin CODE STATUS; full code Plan -Patient was intubated and mechanically ventilated in ED -Urine drug screen positive for opiates, barbiturates, tricyclic antidepressants, benzodiazepines and marijuana concern for polysubstance use -Blood culture pending -Sputum culture preliminary revealing pseudomonas aeruginosa. -All narcotics are currently being held -Critical care service on board -Patient has been placed on IV antibiotics in form of cefepime and vancomycin -Antiseizure medications have been resumed -Monitor electrolytes and renal function -Check vitamin B12 and Folate The impression and plan of care has been dictated by Nichelle Loya, Nurse Practitioner as directed. Dr. Jayson MD I have performed a history and physical examination and medical decision making of this patient, discussed the same with the dictator, and agree with the dictators assessment and plan as written, documented as a scribe. Based on total visit time, I have performed more than 50% of this visit. Objective - Vital Signs Vital signs: Vital Signs Temp 99.3 F 11/08/24 16:00 Pulse 91 11/08/24 17:00 Resp 30 H 11/08/24 17:00 BP 114/67 11/08/24 17:00 Pulse Ox 98 11/08/24 17:00 FiO2 40 11/08/24 16:00 Intake & Output 11/07/24 11/08/24 11/08/24 18:59 06:59 18:59 Intake Total 2136.624 2635.915 1864.361 Output Total 600 655 640 Balance 4251.062 0861.915 1224.361 Weight 46.3 kg 50.2 kg Intake: IV 1785 1601 1168 0.9 1500 1500 500 0.9 @ KVO 60 80 110 Cefepime 2 gm In Sodium 100 Chloride 0.9% 100 ml @ 200 mls/hr IVPB ONCE STA Rx#:[id number] Pressure Bag 0.9% NS 21 33 Sodium Chloride 0.9% 1, 525 000 ml @ 75 mls/hr IV . [id number] [facility] Rx#:[id number] Vancomycin 750 mg In 125 Sodium Chloride 0.9% 250 ml @ 125 mls/hr IVPB ONCE ONE Rx#:[id number] Intake, IV Titration 171.624 584.915 166.361 Amount Cefepime 2 gm In Sodium 100 Chloride 0.9% 100 ml @ 25 mls/hr IVPB Q12H [facility] Rx# :[id number] Magnesium Sulfate-D5w Pmx 100 1 gm In Dextrose/Water 1 100ml.bag @ 100 mls/hr IVPB ONCE ONE Rx#: [id number] Vancomycin 750 mg In 250 Sodium Chloride 0.9% 250 ml @ 125 mls/hr IVPB Q16H [facility] Rx#:[id number] propofoL 1,000 mg In 171.624 134.915 166.361 Empty Bag 1 bag @ 15 MCG/ KG/MIN 4.291 mls/hr IV . [id number] [facility] Rx#:[id number] Tube Feeding 120 360 440 Other 60 90 90 Output: Urine 600 655 640 Other: Voiding Method Indwelling Catheter Indwelling Catheter Indwelling Catheter ABP, PAP, CO, CI - Last Documented Arterial Blood Pressure 121/61 - Labs CBC & Chem 7: 11/08/24 04:10 11/08/24 04:10 Labs: Abnormal Lab Results - Last 24 Hours (Table) 11/07/24 11/08/24 11/08/24 Range/Units 18:15 04:10 04:10 WBC 18.7 H (3.8-10.6) k/uL RBC 2.30 L (3.80-5.40) m/uL Hgb 7.0 L (11.4-16.0) gm/dL Hct 24.3 L (34.0-46.0) % MCV 105.6 H (80.0-100.0) fL MCHC 28.7 L (31.0-37.0) g/dL RDW 16.2 H (11.5-15.5) % Plt Count 505 H (150-450) k/uL Neutrophils # 17.0 H (1.3-7.7) k/uL ABG pH (7.35-7.45) ABG pCO2 (35-45) mmHg ABG pO2 (83-108) mmHg ABG Total CO2 (19-24) mmol/L ABG O2 Saturation (94-97) % Hemoglobin (11.4-16.0) gm/dL Potassium 3.3 L (3.5-5.1) mmol/L Chloride 115 H (98-107) mmol/L BUN 19 H (7-17) mg/dL Glucose 103 H (74-99) mg/dL POC Glucose (mg/dL) 114 H (70-110) mg/dL Calcium 8.3 L (8.4-10.2) mg/dL AST 71 H (14-36) U/L ALT 73 H (4-34) U/L Total Protein 4.7 L (6.3-8.2) g/dL Albumin 2.1 L (3.5-5.0) g/dL 11/08/24 11/08/24 11/08/24 Range/Units 04:11 05:15 17:18 WBC (3.8-10.6) k/uL RBC (3.80-5.40) m/uL Hgb (11.4-16.0) gm/dL Hct (34.0-46.0) % MCV (80.0-100.0) fL MCHC (31.0-37.0) g/dL RDW (11.5-15.5) % Plt Count (150-450) k/uL Neutrophils # (1.3-7.7) k/uL ABG pH 7.24 L (7.35-7.45) ABG pCO2 56 H (35-45) mmHg ABG pO2 110 H (83-108) mmHg ABG Total CO2 26 H (19-24) mmol/L ABG O2 Saturation 98.2 H (94-97) % Hemoglobin 7.1 L (11.4-16.0) gm/dL Potassium (3.5-5.1) mmol/L Chloride (98-107) mmol/L BUN (7-17) mg/dL Glucose (74-99) mg/dL POC Glucose (mg/dL) 114 H 153 H (70-110) mg/dL Calcium (8.4-10.2) mg/dL AST (14-36) U/L ALT (4-34) U/L Total Protein (6.3-8.2) g/dL Albumin (3.5-5.0) g/dL Microbiology - Last 24 Hours (Table) 11/07/24 14:36 Nasal Screen MRSA/MSSA - Final Nasal Swab 11/07/24 04:15 Gram Stain - Preliminary Sputum Sputum Culture - Preliminary Pseudomonas aeruginosa 11/06/24 12:36 Blood Culture - Preliminary Blood Assessment and Plan Time with Patient: Less than 30
[2024-11-08] MEDS: HYDROmorphone 1 MG/ML 1 ML SYRINGE IVP PRN (21:45)
[2024-11-08 23:25] LABS: Glucose,Whole Blood 127 mg/dL (70-110)
[2024-11-08] MEDS: NOREPINEPHRINE 4 MG in SODIUM CHLORIDE 0.9% 250 ML IV SCH (23:49)
[2024-11-09] MEDS ORDERED: VANCOMYCIN TROUGH DUE 1 EACH MISC MISCELLANE ONE (05:00)
[2024-11-09 05:07] LABS: ABG Base Excess -3.6 mmol/L; ABG HCO3 24 mmol/L (21-25); ABG Oxygen Saturation 96.7 % (94-97); ABG PCO2 56 mmHg (35-45); ABG PH 7.24 (7.35-7.45); ABG PO2 89 mmHg (83-108); ABG TCO2 26 mmol/L (19-24)
[2024-11-09 05:15] LABS: Allen Test Performed? no
[2024-11-09 05:36] LABS: Basophils % (A) 0 %; Eosinophils % (A) 0 %; HCT 27.6 % (34.0-46.0); HGB 8.1 gm/dL (11.4-16.0); Hypochromasia Marked; Lymphocytes # (A) 0.9 k/uL (1.0-4.8); Lymphocytes % (A) 5 %; MCH 30.9 pg (25.0-35.0); MCHC 29.3 g/dL (31.0-37.0); MCV 105.5 fL (80.0-100.0); Macrocytosis Moderate; Mean Platelet Volume 7.3; Monocytes # (A) 0.2 k/uL (0-1.0); Monocytes % (A) 1 %; Neutrophils # (A) 16.6 k/uL (1.3-7.7); Neutrophils % (A) 93 %; Platelet Count 572 k/uL (150-450); RBC 2.61 m/uL (3.80-5.40); RDW 15.6 % (11.5-15.5); WBC 17.9 k/uL (3.8-10.6)
[2024-11-09 05:47] LABS: ALT 58 U/L (4-34); AST 35 U/L (14-36); African American GFR (CKD) >90 (>60 ml/min/1.73 sqM); Albumin 2.3 g/dL (3.5-5.0); Alkaline Phosphatase 125 U/L (38-126); Anion Gap 6 mmol/L; Blood Urea Nitrogen 23 mg/dL (7-17); Calcium 8.7 mg/dL (8.4-10.2); Carbon Dioxide 23 mmol/L (22-30); Chloride 116 mmol/L (98-107); Glucose 147 mg/dL (74-99); Non-African American GFR(CKD) >90 (>60 ml/min/1.73 sqM); Potassium 4.1 mmol/L (3.5-5.1); Sodium 145 mmol/L (137-145); Total Bilirubin 0.3 mg/dL (0.2-1.3); Total Protein 5.4 g/dL (6.3-8.2)
--- NOTE | 2024-11-09 07:37 | XR ---
EXAMINATION TYPE: XR chest 1V portable DATE OF EXAM: 11/09/2024 5:28 AM COMPARISON: Chest radiographs from 11/08/2024 CLINICAL INDICATION: Female, 54 years old with history of mechanical ventilation; TECHNIQUE: XR chest 1V portable Frontal view of the chest. FINDINGS: TECHNIQUE: XR chest 1V portable Frontal view of the chest. FINDINGS: Lungs/Pleura: There is no evidence of pleural effusion, focal consolidation, or pneumothorax. Pulmonary vascularity: Unremarkable. Heart/mediastinum: Cardiomediastinal silhouette is unremarkable. Musculoskeletal: No acute osseous pathology. There is fixation hardware in the lower cervical spine. Other findings: None Lines/Tubes: Endotracheal tube with distal tip above the sergo. Evaluation obscured by fixation hardware. Nasogastric tube with its distal tip and side-port projecting under the diaphragm. IMPRESSION: 1. Interstitial opacities of the lungs correlate for atypical pneumonia. 2. Extensive fixation hardware throughout spine limits evaluation. Endotracheal tube is thought to b e above the sergo. 3. [facility], , 11/09/2024 7:34 AM
--- NOTE | 2024-11-09 08:26 | P.PN ---
Subjective Progress Note Date: 11/09/24 Principal diagnosis: AMS/Nonresponsive Recent back surgery Patient seen and examined this morning. Patient on mechanical ventilator with a PEEP of 5.0 and FiO2 at 40%. Patient is moderately sedated on Propofol. She continues on cefepime. Surgical dressing is clean dry and intact to the thoracic spine. Howell catheter is present and patent with adequate output. No acute changes overnight. Objective - Vital Signs Vital signs: Vital Signs Temp 98.8 F 11/09/24 04:00 Pulse 88 11/09/24 07:00 Resp 30 H 11/09/24 07:00 BP 109/74 11/09/24 07:00 Pulse Ox 98 11/09/24 07:00 FiO2 40 11/09/24 08:12 Intake & Output 11/08/24 11/09/24 11/09/24 18:59 06:59 18:59 Intake Total 2120.361 1793.043 128 Output Total 740 475 40 Balance 1459.606 0143.043 88 Weight 54 kg Intake: IV 1344 968 88 0.9 500 0.9 @ KVO 130 110 10 Pressure Bag 0.9% NS 39 33 3 Sodium Chloride 0.9% 1, 675 825 75 000 ml @ 75 mls/hr IV . [id number] [facility] Rx#:[id number] Intake, IV Titration 166.361 295.043 Amount Cefepime 2 gm In Sodium 100 Chloride 0.9% 100 ml @ 25 mls/hr IVPB Q12H [facility] Rx# :[id number] Norepinephrine 4 mg In 29.135 Sodium Chloride 0.9% 250 ml @ 0.03 MCG/KG/MIN 5. 738 mls/hr IV .Q24H [facility] Rx#:[id number] propofoL 1,000 mg In 166.361 165.908 Empty Bag 1 bag @ 15 MCG/ KG/MIN 4.291 mls/hr IV . [id number] [facility] Rx#:[id number] Tube Feeding 520 440 40 Other 90 90 Output: Urine 740 475 40 Other: Voiding Method Indwelling Catheter Indwelling Catheter ABP, PAP, CO, CI - Last Documented Arterial Blood Pressure 134/70 - Exam General: The patient is currently on mechanical ventilation, in no acute distress Skin: Skin is warm and dry with no obvious rashes or lesions. Surgical incision to the thoracic spine, dressing is clean dry and intact. There is mild edema to patients hands. No clubbing, no cyanosis. Peripheral pulses are intact. Limited exam due to patient's status. - Labs CBC & Chem 7: 11/09/24 05:18 11/09/24 05:18 Labs: Abnormal Lab Results - Last 24 Hours (Table) 11/08/24 11/08/24 11/09/24 Range/Units 17:18 23:23 05:07 WBC (3.8-10.6) k/uL RBC (3.80-5.40) m/uL Hgb (11.4-16.0) gm/dL Hct (34.0-46.0) % MCV (80.0-100.0) fL MCHC (31.0-37.0) g/dL RDW (11.5-15.5) % Plt Count (150-450) k/uL Neutrophils # (1.3-7.7) k/uL Lymphocytes # (1.0-4.8) k/uL ABG pH 7.24 L (7.35-7.45) ABG pCO2 56 H (35-45) mmHg ABG Total CO2 26 H (19-24) mmol/L Hemoglobin 7.9 L (11.4-16.0) gm/dL Chloride (98-107) mmol/L BUN (7-17) mg/dL Glucose (74-99) mg/dL POC Glucose (mg/dL) 153 H 127 H (70-110) mg/dL ALT (4-34) U/L Total Protein (6.3-8.2) g/dL Albumin (3.5-5.0) g/dL 11/09/24 11/09/24 Range/Units 05:18 05:18 WBC 17.9 H (3.8-10.6) k/uL RBC 2.61 L (3.80-5.40) m/uL Hgb 8.1 L (11.4-16.0) gm/dL Hct 27.6 L (34.0-46.0) % MCV 105.5 H (80.0-100.0) fL MCHC 29.3 L (31.0-37.0) g/dL RDW 15.6 H (11.5-15.5) % Plt Count 572 H (150-450) k/uL Neutrophils # 16.6 H (1.3-7.7) k/uL Lymphocytes # 0.9 L (1.0-4.8) k/uL ABG pH (7.35-7.45) ABG pCO2 (35-45) mmHg ABG Total CO2 (19-24) mmol/L Hemoglobin (11.4-16.0) gm/dL Chloride 116 H (98-107) mmol/L BUN 23 H (7-17) mg/dL Glucose 147 H (74-99) mg/dL POC Glucose (mg/dL) (70-110) mg/dL ALT 58 H (4-34) U/L Total Protein 5.4 L (6.3-8.2) g/dL Albumin 2.3 L (3.5-5.0) g/dL Microbiology - Last 24 Hours (Table) 11/06/24 12:36 Blood Culture - Preliminary Blood 11/08/24 10:15 Gram Stain - Preliminary Sputum 11/07/24 14:36 Nasal Screen MRSA/MSSA - Final Nasal Swab 11/07/24 04:15 Gram Stain - Preliminary Sputum Sputum Culture - Preliminary Pseudomonas aeruginosa Assessment and Plan Assessment: Altered mental status/unresponsive Postop day 13: open treatment T8 fracture; irrigation and excisional debridement of thoracic spine wound; posterior lateral instrumented fusion T7-T11 Plan: At this time we do not recommend any emergent/urgent orthopedic surgical intervention. 2. Appreciate medical management 3. Pain management - Continue with current regimen, Utilize ice therapy 20min every hour as needed. 4. Bedrest; may perform bed exercises and ROM of extremities as tolerated. 5. Appreciate consult.
--- NOTE | 2024-11-09 10:03 | P.PN ---
Subjective Progress Note Date: 11/09/24 This is a 54-year-old female patient with a known history of COPD, hypertension, hyperlipidemia, coronary disease, congestive heart failure, DVT, hypothyroidism, seizure disorder, multiple previous back surgeries. She had most recently undergone a C2-T7 posterior lateral fusion on 09/09/2024. She developed a significant infection and wound dehiscence and was back here in the hospital and had undergone irrigation and excisional debridement of a thoracic spine wound on 10/27/2024 and discharged to home on 11/02/2024. She was brought back here to the emergency room earlier this morning after being found obtunded and unresponsive by her . She was intubated here in the emergency department. Chest x- ray revealed bilateral upper interstitial opacities concerning for pneumonia versus fluid volume overload. Evidence of COPD. Endotracheal tube and nasogastric tubes in position. CT scan of the brain revealed no acute intracranial process. CT angiogram ruled out pulmonary embolism. There is b ilateral upper lobe reticular opacities with right greater than left raising concerns for infection. Few foci of gas identified within the left supraclavicular region and left anterior chest wall possibly with venous vasculature. CT scan of the thoracic spine reveals extensive postsurgical changes. No gross evidence of complication. White count 9.0. Hemoglobin 10.6. Platelets 800,000. INR 0.9. Sodium 144. Potassium 4.0. Bicarb 27. BUN 16. Creatinine 0.96. Glucose 111. Lactic acid 3.0. AST 86. ALT 39. Troponin 0.044. Urinalysis clean. Drug urine screen is positive for opiates, barbiturates, antidepressants, benzodiazepines and marijuana. Initial arterial blood gases on 100% FiO2 revealed a PaO2 of 34, pCO2 89 and a pH of 7.07. Follow-up blood gases on the mechanical ventilator on 100% revealed a PaO2 greater than 420, pCO2 61 and a pH of 7.20. Her current vent settings are assist-control mode at a rate of 26, tidal volume 320 and FiO2 50% and a PEEP of 5. She is sedated on propofol at 50 mcg/kg/h. She has been initiated on vancomycin and cefepime. Received Narcan without improvement initially. She received 2 L of fluid resuscitation. 11/07/2024: Patient is a 54 year old female who was admmited to the ICU on 11/06/2024 with acute hypoxic respiratory failure. She arrived to ED unresponsive. Initially thought it was narcotic overdose. Did not improve with narcan. Ultimately intubated and mechanically ventillated on 11/06 . Patient tested positive for opiates, barbiturates, tricyclic's, benzodiazepines, and marijuana. Her underlying problems include COPD, hypertension, hyperlipidemia, coronary disease, congestive heart failure, DVT, hypothyroidism, seizure disorder, multiple previous back surgeries, T2 vertebral fracture with revision of C2-T7 posterior lateral fusion on 09/09/2024 patient developed surgical wound infection and dehiscence of wound. Patient was seen today 11/07/2024. Remains intubated and mechanically ventillated on assist controlled at a rate of 30, tidal volume 320, FiO2 50%, PEEP of 5. ABG: pH 7.17/pCO2 66 /pO2 70. Currently on propofol 50 mcg/kg/min and normal saline 0.9% at 125 cc/hr. No acute events overnight. Repeat CXR showing bilateral pleural and interstitial opacities. Labs WBC 38.9 Hgb 8.2, platelets 659, CO2 21, anion gap 11, BUN 16, creatinine 0.96 CRP 26.5. Patient currently on IV vancomycin dosed by pharmacy and cefepime 2 g IVPB every 12 hours. Blood cultures are pending. MRSA/MSSA screening pending. Currently not on any tube feeding. The patient is seen on 11/08/2024 in room 262. She remains on volume assist- control, rate 30, tidal volume 320, FiO2 40%, PEEP of 5. Most recent blood gases show pO2 of 110, pCO2 of 56, pH is 7.24. The patient is on propofol at 50 mcg/kg/min, saline at 125 cc an hour which we will decrease to 75cc an hour d/t suspected dillutional anemia, and vancomycin and cefepime. Tube feedings vital HP 40 cc/hr which is goal. Blood cultures showing no growth. Left brachial ART line was placed last night. All labs, x-rays, and medications are reviewed. CXR showing bilateral interstitial opacities. White count 18.7, hemoglobin 7.0, platelet count 505,000. BUN was 19, creatinine was 0.85. We will continue to follow make recommendations along the way. All labs, x-rays, and medications ar e reviewed. The patient has a history of underlying COPD, hypertension, hyperlipidemia, coronary disease, heart failure, DVT, hypothyroidism, seizure disorder, and multiple surgical procedures on her cervical and thoracic spine. Prognosis is guarded. The patient is seen on 11/09/2024 in room 262. She remains on volume assist- control, rate 30, tidal volume 320, FiO2 40%, PEEP of 5. Most recent blood gases show pO2 of 89, pCO2 of 56, pH is 7.24. The patient is on propofol at 20 mcg/kg/min, saline at 75cc. Remains on vancomycin and cefepime. Yesterday was placed IV solumedrol 40 mg q8hr, but will increase to 60 mg q6hr. Tube feedings vital HP 40 cc/hr which is goal. Blood cultures showing no growth. Sputum cultures showing pseudomonas. MRSA/MSSA nares negative. Yesterday she did not tolerate being off sedation. Only lasted for 20 minutes due to her peak pressuing and being tachypnic. She was given dilaudid yesterday which caused her to be hypotensive so she was subsequently put on levofed but has since been off it since 530a. All labs, x-rays, and medications are reviewed. CXR still showing bilateral interstitial opacities likely from atypical pneumonia. White count 17.9, hemoglobin 8.1, platelet count 572,000. BUN was 23, creatinine was 0.67. AST 35, ALT 58. We will continue to follow make recommendations along the way. All labs, x-rays, and medications are reviewed. The patient has a history of underlying COPD, hypertension, hyperlipidemia, coronary disease, heart failure, DVT, hypothyroidism, seizure disorder, and multiple surgical procedures on her cervical and thoracic spine. Prognosis is guarded. Objective - Vital Signs Vital signs: Vital Signs Temp 98.8 F 11/09/24 04:00 Pulse 88 11/09/24 07:00 Resp 30 H 11/09/24 07:00 BP 109/74 11/09/24 07:00 Pulse Ox 98 11/09/24 07:00 FiO2 40 11/09/24 04:00 Intake & Output 11/08/24 11/09/24 11/09/24 18:59 06:59 18:59 Intake Total 2120.361 1793.043 128 Output Total 740 475 40 Balance 2609.274 9996.043 88 Weight 54 kg Intake: IV 1344 968 88 0.9 500 0.9 @ KVO 130 110 10 Pressure Bag 0.9% NS 39 33 3 Sodium Chloride 0.9% 1, 675 825 75 000 ml @ 75 mls/hr IV . [id number] [facility] Rx#:[id number] Intake, IV Titration 166.361 295.043 Amount Cefepime 2 gm In Sodium 100 Chloride 0.9% 100 ml @ 25 mls/hr IVPB Q12H [facility] Rx# :[id number] Norepinephrine 4 mg In 29.135 Sodium Chloride 0.9% 250 ml @ 0.03 MCG/KG/MIN 5. 738 mls/hr IV .Q24H [facility] Rx#:[id number] propofoL 1,000 mg In 166.361 165.908 Empty Bag 1 bag @ 15 MCG/ KG/MIN 4.291 mls/hr IV . [id number] [facility] Rx#:[id number] Tube Feeding 520 440 40 Other 90 90 Output: Urine 740 475 40 Other: Voiding Method Indwelling Catheter Indwelling Catheter ABP, PAP, CO, CI - Last Documented Arterial Blood Pressure 134/70 - Labs CBC & Chem 7: 11/09/24 05:18 11/09/24 05:18 Labs: Abnormal Lab Results - Last 24 Hours (Table) 11/08/24 11/08/24 11/09/24 Range/Units 17:18 23:23 05:07 WBC (3.8-10.6) k/uL RBC (3.80-5.40) m/uL Hgb (11.4-16.0) gm/dL Hct (34.0-46.0) % MCV (80.0-100.0) fL MCHC (31.0-37.0) g/dL RDW (11.5-15.5) % Plt Count (150-450) k/uL Neutrophils # (1.3-7.7) k/uL Lymphocytes # (1.0-4.8) k/uL ABG pH 7.24 L (7.35-7.45) ABG pCO2 56 H (35-45) mmHg ABG Total CO2 26 H (19-24) mmol/L Hemoglobin 7.9 L (11.4-16.0) gm/dL Chloride (98-107) mmol/L BUN (7-17) mg/dL Glucose (74-99) mg/dL POC Glucose (mg/dL) 153 H 127 H (70-110) mg/dL ALT (4-34) U/L Total Protein (6.3-8.2) g/dL Albumin (3.5-5.0) g/dL 11/09/24 11/09/24 Range/Units 05:18 05:18 WBC 17.9 H (3.8-10.6) k/uL RBC 2.61 L (3.80-5.40) m/uL Hgb 8.1 L (11.4-16.0) gm/dL Hct 27.6 L (34.0-46.0) % MCV 105.5 H (80.0-100.0) fL MCHC 29.3 L (31.0-37.0) g/dL RDW 15.6 H (11.5-15.5) % Plt Count 572 H (150-450) k/uL Neutrophils # 16.6 H (1.3-7.7) k/uL Lymphocytes # 0.9 L (1.0-4.8) k/uL ABG pH (7.35-7.45) ABG pCO2 (35-45) mmHg ABG Total CO2 (19-24) mmol/L Hemoglobin (11.4-16.0) gm/dL Chloride 116 H (98-107) mmol/L BUN 23 H (7-17) mg/dL Glucose 147 H (74-99) mg/dL POC Glucose (mg/dL) (70-110) mg/dL ALT 58 H (4-34) U/L Total Protein 5.4 L (6.3-8.2) g/dL Albumin 2.3 L (3.5-5.0) g/dL Microbiology - Last 24 Hours (Table) 11/06/24 12:36 Blood Culture - Preliminary Blood 11/08/24 10:15 Gram Stain - Preliminary Sputum 11/07/24 14:36 Nasal Screen MRSA/MSSA - Final Nasal Swab 11/07/24 04:15 Gram Stain - Preliminary Sputum Sputum Culture - Preliminary Pseudomonas aeruginosa Assessment and Plan Assessment: Altered mental status, obtunded requiring intubation and mechanical ventilatory support. Suspect secondary to narcotics. Urine drug screen positive for opiates, barbiturates, tricyclic antidepressants, benzodiazepines and marijuana Acute hypoxemic and hypercapnic respiratory failure secondary to above Discharge from the hospital following surgery on 10/27/2024 for open treatment of a T8 fracture, irrigation and excisional debridement of thoracic spine wound measuring 10 x 7 x 4 cm, posterior lateral instrumented fusion of T7-T11 and cement augmentation of T8-T10 vertebral bodies. Chronic obstructive pulmonary disease/asthma, currently inactive and stable T2 vertebral fracture with revision of C2-T7 posterior lateral fusion on 09/09/2024 Surgical site infection and wound dehiscence, wound and blood cultures revealed no growth Acute leukocytosis, improved Macrocytic anemia Rectal prolapse with bleeding History of hypertension History of hyperlipidemia History of coronary artery disease History of heart failure with preserved ejection fraction History of gastroesophageal reflux disease History of seizure disorder History of hypothyroidism History of anxiety/depression/PTSD Plan: The patient was seen and evaluated Imaging, labs and medications reviewed Currently intubated on the mechanical ventilator ABGs reviewed, appropriate vent changes made Continue vancomycin and cefepime Maintain vital HP at goal of 40 cc/hr Blood cultures showing no growth so far, sputum culture showing pseudomonas MRSA/MSSA screening negative Placed on IV solumedrol 40 mg q8hr changed to 60 mg q6hr Patient only lasted 20 min after being weaned off of sedation yesterday. Plan to re-sedate today Will continue to follow in intensive care unit We will continue to follow and make further recommendations based on her clinical status
[2024-11-09 11:56] LABS: Glucose,Whole Blood 142 mg/dL (70-110)
[2024-11-09] MEDS: methylPREDNISolone SOD SUCCI 125 MG/2 ML VIAL IV SCH (12:00)
[2024-11-09] MEDS: CEFEPIME 2 GM in SODIUM CHLORIDE 0.9% 100 ML IVPB SCH (16:31)
[2024-11-09 18:15] LABS: Glucose,Whole Blood 152 mg/dL (70-110)
--- NOTE | 2024-11-09 19:39 | P.PN ---
Subjective Progress Note Date: 11/09/24 Patient is evaluated today in follow up in the intensive care unit. Patient remains intubated on the mechanical ventilator with PEEP of 5 and FiO2 of 40%. Patient remains sedated. LFTs remain elevated, white blood cell count up to 38. Blood culture pending. Patient continues on IV Vancomycin and IV cefepime. ID following. Chest xray today reveals stable upper lobe interstitial opacities. Spinal surgery evaluated the patient felt the wound was noninfectious and healing well. Patients heart rate has been in the 120s was resumed on home medication of propanolol and has had improvement in the heart rate down to the 80s this afternoon. 11/08/2024 Patient is evaluated today in follow up in the ICU. Remains intubated and sedated on the mechanical ventilator with settings at PEEP of 5 and 40% FiO2. Chest xray today reveals interstitial opacities correlating for atypical pneumonia. There is extensive fixation hardware throughout the spine. White blood cell count of 18.7, hgb 7.0, MCV 105.6. Magnesium 1.2, potassium 3.3. Remains on IV cefepime, IV vancomycin. Has been started on systemic steroids. P atient with low grade temp of 99.8 today. Blood pressure low/normal. 11/09/2024 Patient is evaluated in the Intensive care unit, family at the bedside. Patient remains on the mechanical ventilator with PEEP of 5, FiO2 of 40%. Not ready for weaning today. Chest xray reveals interstitial opacities of the lungs correlate for atypical pneumonia. Sputum positive for pseudomonas. Patient remains on IV Cefepime. Also on IV solumedrol. Patient is sedated with propofol. Normal saline is running at 75 mls/hr. White blood cell count 17.9, hgb 8.1. Sodium 145, potassium 4.1, BUN 23, creatinine 0.67. Patient with low grade temp 99 axillary. Unable to complete review of systems patient is currently intubated and sedated. Physical Examination GENERAL EXAM: Intubated, mechanically ventilated, thin 54-year-old female, on the ventilator, in no apparent distress. HEAD: Normocephalic. Normal reaction of pupils, equal size. THROAT: No erythema or exudates. NECK: No masses, no JVD. CHEST: No chest wall deformity. LUNGS: Equal air entry with no crackles, wheeze, rhonchi or dullness. CVS: S1 and S2 normal with no audible murmur, regular rhythm. ABDOMEN: No hepatosplenomegaly, normal bowel sounds, no guarding or rigidity. SPINE: No scoliosis or deformity. Surgical dressing dry and intact. SKIN: No rashes CENTRAL NERVOUS SYSTEM: Sedated, tone is normal in all 4 extremities. EXTREMITIES: There is no peripheral edema. No clubbing, no cyanosis. Peripheral pulses are intact. Assessment and Plan -Altered mental status/unresponsive, likely related to narcotics versus sepsis -Unable to rule out aspiration pneumonia -Acute hypoxic/hypercapnic respiratory failure; as indicated above; patient re presley intubated with mechanical ventilation -Surgical site infection/wound dehiscence and Patient is status post surgery on 10/27/2024 for open treatment of a T8 fracture, irrigation and excisional johana ridement of thoracic spine wound measuring 10 x 7 x 4 cm, posterior lateral instrumented fusion of T7-T11 and cement augmentation of T8-T10 vertebral bodies; Orthopedic surgery consulted and felt the wound was noninfectious and healing well. -Leukocytosis/sepsis; continue with IV antibiotics as indicated above; patient has been pancultured -History of hypertension; propranolol 20 mg twice daily has been resumed; prazosin 2 mg twice daily on hold -Macroctyic anemia -Hyperlipidemia; currently not on any statin therapy -Hypothyroidism; levothyroxine 88 mcg daily -History of CAD -Chronic heart failure with preserved EF with no acute exacerbation -History of COPD/Asthma -PTSD/Bipolar/Borderline personality -Chronic nicotine use -Polysubstance use -Rectal prolapse -Hx seizure disorder -Gastroesophageal reflux DVT prophylaxis; SCDs/subcu heparin CODE STATUS; full code Plan -Patient was intubated and mechanically ventilated in ED -Urine drug screen positive for opiates, barbiturates, tricyclic antidepressants, benzodiazepines and marijuana concern for polysubstance use -Blood culture pending -Sputum culture preliminary revealing pseudomonas aeruginosa. -All narcotics are currently being held -Critical care service on board -Patient has been placed on IV antibiotics in form of cefepime and vancomycin -Antiseizure medications have been resumed -Monitor electrolytes and renal function The impression and plan of care has been dictated by Nichelle Loya Nurse Practitioner as directed. Dr. Jayson MD I have performed a history and physical examination and medical decision making of this patient, discussed the same with the dictator, and agree with the dictators assessment and plan as written, documented as a scribe. Based on total visit time, I have performed more than 50% of this visit. Objective - Vital Signs Vital signs: Vital Signs Temp 99.0 F 11/09/24 16:00 Pulse 95 11/09/24 19:00 Resp 30 H 11/09/24 19:00 BP 139/89 11/09/24 19:00 Pulse Ox 98 11/09/24 19:00 FiO2 40 11/09/24 16:00 Intake & Output 11/09/24 11/09/24 11/10/24 06:59 18:59 06:59 Intake Total 9680.603 1456.746 Output Total 475 680 Balance 9853.492 6515.746 Weight 54 kg Intake: IV 968 1334 0.9 @ KVO 110 120 Cefepime 2 gm In Sodium 200 Chloride 0.9% 100 ml @ 25 mls/hr IVPB Q12H [facility] Rx# :[id number] Pressure Bag 0.9% NS 33 39 Sodium Chloride 0.9% 1, 825 975 000 ml @ 75 mls/hr IV . [id number] [facility] Rx#:[id number] Intake, IV Titration 295.043 194.746 Amount Cefepime 2 gm In Sodium 100 Chloride 0.9% 100 ml @ 25 mls/hr IVPB Q12H IVVI Rx# :[id number] Norepinephrine 4 mg In 29.135 Sodium Chloride 0.9% 250 ml @ 0.03 MCG/KG/MIN 5. 738 mls/hr IV .Q24H [facility] Rx#:[id number] propofoL 1,000 mg In 165.908 194.746 Empty Bag 1 bag @ 15 MCG/ KG/MIN 4.291 mls/hr IV . [id number] [facility] Rx#:[id number] Tube Feeding 440 4480 Other 90 60 Output: Urine 475 680 Other: Voiding Method Indwelling Catheter Indwelling Catheter ABP, PAP, CO, CI - Last Documented Arterial Blood Pressure 124/80 - Labs CBC & Chem 7: 11/09/24 05:18 11/09/24 05:18 Labs: Abnormal Lab Results - Last 24 Hours (Table) 11/08/24 11/09/24 11/09/24 Range/Units 23:23 05:07 05:18 WBC (3.8-10.6) k/uL RBC (3.80-5.40) m/uL Hgb (11.4-16.0) gm/dL Hct (34.0-46.0) % MCV (80.0-100.0) fL MCHC (31.0-37.0) g/dL RDW (11.5-15.5) % Plt Count (150-450) k/uL Neutrophils # (1.3-7.7) k/uL Lymphocytes # (1.0-4.8) k/uL ABG pH 7.24 L (7.35-7.45) ABG pCO2 56 H (35-45) mmHg ABG Total CO2 26 H (19-24) mmol/L Hemoglobin 7.9 L (11.4-16.0) gm/dL Chloride 116 H (98-107) mmol/L BUN 23 H (7-17) mg/dL Glucose 147 H (74-99) mg/dL POC Glucose (mg/dL) 127 H (70-110) mg/dL ALT 58 H (4-34) U/L Total Protein 5.4 L (6.3-8.2) g/dL Albumin 2.3 L (3.5-5.0) g/dL 11/09/24 11/09/24 11/09/24 Range/Units 05:18 11:55 18:14 WBC 17.9 H (3.8-10.6) k/uL RBC 2.61 L (3.80-5.40) m/uL Hgb 8.1 L (11.4-16.0) gm/dL Hct 27.6 L (34.0-46.0) % MCV 105.5 H (80.0-100.0) fL MCHC 29.3 L (31.0-37.0) g/dL RDW 15.6 H (11.5-15.5) % Plt Count 572 H (150-450) k/uL Neutrophils # 16.6 H (1.3-7.7) k/uL Lymphocytes # 0.9 L (1.0-4.8) k/uL ABG pH (7.35-7.45) ABG pCO2 (35-45) mmHg ABG Total CO2 (19-24) mmol/L Hemoglobin (11.4-16.0) gm/dL Chloride (98-107) mmol/L BUN (7-17) mg/dL Glucose (74-99) mg/dL POC Glucose (mg/dL) 142 H 152 H (70-110) mg/dL ALT (4-34) U/L Total Protein (6.3-8.2) g/dL Albumin (3.5-5.0) g/dL Microbiology - Last 24 Hours (Table) 11/08/24 10:15 Gram Stain - Preliminary Sputum Sputum Culture - Preliminary Pseudomonas aeruginosa 11/07/24 04:15 Gram Stain - Final Sputum Sputum Culture - Final Pseudomonas aeruginosa 11/06/24 12:36 Blood Culture - Preliminary Blood 11/07/24 14:36 Nasal Screen MRSA/MSSA - Final Nasal Swab Assessment and Plan Time with Patient: Less than 30
[2024-11-09] MEDS: METOCLOPRAMIDE 5 MG/ML 2 ML VIAL IVP PRN (21:49)
[2024-11-09 23:35] LABS: Glucose,Whole Blood 130 mg/dL (70-110)
[2024-11-10 00:12] LABS: ALT 43 U/L (4-34); AST 26 U/L (14-36); African American GFR (CKD) >90 (>60 ml/min/1.73 sqM); Albumin 2.4 g/dL (3.5-5.0); Alkaline Phosphatase 108 U/L (38-126); Anion Gap 5 mmol/L; Blood Urea Nitrogen 27 mg/dL (7-17); Calcium 8.8 mg/dL (8.4-10.2); Carbon Dioxide 24 mmol/L (22-30); Chloride 116 mmol/L (98-107); Glucose 126 mg/dL (74-99); Magnesium 1.8 mg/dL (1.6-2.3); Non-African American GFR(CKD) >90 (>60 ml/min/1.73 sqM); Potassium 4.1 mmol/L (3.5-5.1); Sodium 145 mmol/L (137-145); Total Bilirubin 0.4 mg/dL (0.2-1.3); Total Protein 5.5 g/dL (6.3-8.2)
[2024-11-10] MEDS: MAGNESIUM SULFATE-D5W PMX 1 GM in DEXTROSE/WATER 1 100ML.BAG IVPB ONE (02:50)
[2024-11-10 04:47] LABS: ABG Base Excess -2.4 mmol/L; ABG HCO3 24 mmol/L (21-25); ABG Oxygen Saturation 89.1 % (94-97); ABG PCO2 50 mmHg (35-45); ABG PH 7.29 (7.35-7.45); ABG TCO2 26 mmol/L (19-24); Allen Test Performed? Yes
[2024-11-10 04:49] LABS: ABG PO2 59 mmHg (83-108)
[2024-11-10 05:25] LABS: ABG Base Excess -1.5 mmol/L; ABG HCO3 25 mmol/L (21-25); ABG Oxygen Saturation 95.1 % (94-97); ABG PCO2 52 mmHg (35-45); ABG PH 7.29 (7.35-7.45); ABG PO2 78 mmHg (83-108); ABG TCO2 27 mmol/L (19-24); Allen Test Performed? Yes
[2024-11-10 05:49] LABS: Glucose,Whole Blood 129 mg/dL (70-110)
[2024-11-10 06:44] LABS: African American GFR (CKD) >90 (>60 ml/min/1.73 sqM); Anion Gap 7 mmol/L; Blood Urea Nitrogen 26 mg/dL (7-17); Calcium 8.9 mg/dL (8.4-10.2); Carbon Dioxide 23 mmol/L (22-30); Chloride 115 mmol/L (98-107); Glucose 126 mg/dL (74-99); Non-African American GFR(CKD) >90 (>60 ml/min/1.73 sqM); Potassium 3.8 mmol/L (3.5-5.1); Sodium 145 mmol/L (137-145)
--- NOTE | 2024-11-10 07:21 | XR ---
EXAMINATION TYPE: XR chest 1V portable DATE OF EXAM: 11/10/2024 4:55 AM COMPARISON: Chest radiograph from one day prior. CLINICAL INDICATION: Female, 54 years old with history of MECHANICAL VENTILATION; [facility] TECHNIQUE: XR chest 1V portable Frontal view of the chest. FINDINGS: Lungs/Pleura: There is no evidence of pleural effusion, focal consolidation, or pneumothorax. Pulmonary vascularity: Unremarkable. Heart/mediastinum: Cardiomediastinal silhouette is unremarkable. Musculoskeletal: No acute osseous pathology. There is fixation hardware in the lower cervical spine. Other findings: None Lines/Tubes: Endotracheal tube with distal tip above the sergo. Evaluation obscured by fixation hardware. Nasogastric tube with its distal tip and side-port projecting under the diaphragm. IMPRESSION: 1. Interstitial opacities of the lungs are unchanged. 2. Extensive fixation hardware throughout spine limits evaluation. Endotracheal tube is thought to b e above the sergo. [facility], , 11/10/2024 7:19 AM
[2024-11-10 07:36] LABS: Basophils % (A) 0 %; Eosinophils % (A) 0 %; HCT 29.8 % (34.0-46.0); HGB 8.6 gm/dL (11.4-16.0); Hypochromasia Marked; Lymphocytes % (A) 6 %; MCH 30.6 pg (25.0-35.0); MCHC 28.8 g/dL (31.0-37.0); MCV 106.5 fL (80.0-100.0); Macrocytosis Marked; Mean Platelet Volume 7.4; Monocytes # (A) 0.4 k/uL (0-1.0); Monocytes % (A) 2 %; Neutrophils # (A) 16.5 k/uL (1.3-7.7); Neutrophils % (A) 91 %; Platelet Count 625 k/uL (150-450); WBC 18.2 k/uL (3.8-10.6)
[2024-11-10] MEDS ORDERED: POTASSIUM BICARBONATE/CIT AC 20 MEQ TABLET.EFF NG-TUBE SCH (08:00)
[2024-11-10 08:25] LABS: Anisocytosis (M) Present; Poikilocytosis (M) Present
--- NOTE | 2024-11-10 08:46 | P.PN ---
Progress Note - Text Progress Note Date: 11/10/24 Patient seen and examined this morning. No changes overnight. RN informed that surgical dressing to the thoracic spine has been changed. Continue to turn patient every 2 hours to keep pressure from the surgical incision. No acute concerns
--- NOTE | 2024-11-10 09:57 | P.PN ---
Subjective Progress Note Date: 11/10/24 This is a 54-year-old female patient with a known history of COPD, hypertension, hyperlipidemia, coronary disease, congestive heart failure, DVT, hypothyroidism, seizure disorder, multiple previous back surgeries. She had most recently undergone a C2-T7 posterior lateral fusion on 09/09/2024. She developed a significant infection and wound dehiscence and was back here in the hospital and had undergone irrigation and excisional debridement of a thoracic spine wound on 10/27/2024 and discharged to home on 11/02/2024. She was brought back here to the emergency room earlier this morning after being found obtunded and unresponsive by her . She was intubated here in the emergency department. Chest x- ray revealed bilateral upper interstitial opacities concerning for pneumonia versus fluid volume overload. Evidence of COPD. Endotracheal tube and nasogastric tubes in position. CT scan of the brain revealed no acute intracranial process. CT angiogram ruled out pulmonary embolism. There is b ilateral upper lobe reticular opacities with right greater than left raising concerns for infection. Few foci of gas identified within the left supraclavicular region and left anterior chest wall possibly with venous vasculature. CT scan of the thoracic spine reveals extensive postsurgical changes. No gross evidence of complication. White count 9.0. Hemoglobin 10.6. Platelets 800,000. INR 0.9. Sodium 144. Potassium 4.0. Bicarb 27. BUN 16. Creatinine 0.96. Glucose 111. Lactic acid 3.0. AST 86. ALT 39. Troponin 0.044. Urinalysis clean. Drug urine screen is positive for opiates, barbiturates, antidepressants, benzodiazepines and marijuana. Initial arterial blood gases on 100% FiO2 revealed a PaO2 of 34, pCO2 89 and a pH of 7.07. Follow-up blood gases on the mechanical ventilator on 100% revealed a PaO2 greater than 420, pCO2 61 and a pH of 7.20. Her current vent settings are assist-control mode at a rate of 26, tidal volume 320 and FiO2 50% and a PEEP of 5. She is sedated on propofol at 50 mcg/kg/h. She has been initiated on vancomycin and cefepime. Received Narcan without improvement initially. She received 2 L of fluid resuscitation. 11/07/2024: Patient is a 54 year old female who was admmited to the ICU on 11/06/2024 with acute hypoxic respiratory failure. She arrived to ED unresponsive. Initially thought it was narcotic overdose. Did not improve with narcan. Ultimately intubated and mechanically ventillated on 11/06 . Patient tested positive for opiates, barbiturates, tricyclic's, benzodiazepines, and marijuana. Her underlying problems include COPD, hypertension, hyperlipidemia, coronary disease, congestive heart failure, DVT, hypothyroidism, seizure disorder, multiple previous back surgeries, T2 vertebral fracture with revision of C2-T7 posterior lateral fusion on 09/09/2024 patient developed surgical wound infection and dehiscence of wound. Patient was seen today 11/07/2024. Remains intubated and mechanically ventillated on assist controlled at a rate of 30, tidal volume 320, FiO2 50%, PEEP of 5. ABG: pH 7.17/pCO2 66 /pO2 70. Currently on propofol 50 mcg/kg/min and normal saline 0.9% at 125 cc/hr. No acute events overnight. Repeat CXR showing bilateral pleural and interstitial opacities. Labs WBC 38.9 Hgb 8.2, platelets 659, CO2 21, anion gap 11, BUN 16, creatinine 0.96 CRP 26.5. Patient currently on IV vancomycin dosed by pharmacy and cefepime 2 g IVPB every 12 hours. Blood cultures are pending. MRSA/MSSA screening pending. Currently not on any tube feeding. The patient is seen on 11/08/2024 in room 262. She remains on volume assist- control, rate 30, tidal volume 320, FiO2 40%, PEEP of 5. Most recent blood gases show pO2 of 110, pCO2 of 56, pH is 7.24. The patient is on propofol at 50 mcg/kg/min, saline at 125 cc an hour which we will decrease to 75cc an hour d/t suspected dillutional anemia, and vancomycin and cefepime. Tube feedings vital HP 40 cc/hr which is goal. Blood cultures showing no growth. Left brachial ART line was placed last night. All labs, x-rays, and medications are reviewed. CXR showing bilateral interstitial opacities. White count 18.7, hemoglobin 7.0, platelet count 505,000. BUN was 19, creatinine was 0.85. We will continue to follow make recommendations along the way. All labs, x-rays, and medications ar e reviewed. The patient has a history of underlying COPD, hypertension, hyperlipidemia, coronary disease, heart failure, DVT, hypothyroidism, seizure disorder, and multiple surgical procedures on her cervical and thoracic spine. Prognosis is guarded. The patient is seen on 11/09/2024 in room 262. She remains on volume assist- control, rate 30, tidal volume 320, FiO2 40%, PEEP of 5. Most recent blood gases show pO2 of 89, pCO2 of 56, pH is 7.24. The patient is on propofol at 20 mcg/kg/min, saline at 75cc. Remains on vancomycin and cefepime. Yesterday was placed IV solumedrol 40 mg q8hr, but will increase to 60 mg q6hr. Tube feedings vital HP 40 cc/hr which is goal. Blood cultures showing no growth. Sputum cultures showing pseudomonas. MRSA/MSSA nares negative. Yesterday she did not tolerate being off sedation. Only lasted for 20 minutes due to her peak pressuing and being tachypnic. She was given dilaudid yesterday which caused her to be hypotensive so she was subsequently put on levofed but has since been off it since 530a. All labs, x-rays, and medications are reviewed. CXR still showing bilateral interstitial opacities likely from atypical pneumonia. White count 17.9, hemoglobin 8.1, platelet count 572,000. BUN was 23, creatinine was 0.67. AST 35, ALT 58. We will continue to follow make recommendations along the way. All labs, x-rays, and medications are reviewed. The patient has a history of underlying COPD, hypertension, hyperlipidemia, coronary disease, heart failure, DVT, hypothyroidism, seizure disorder, and multiple surgical procedures on her cervical and thoracic spine. Prognosis is guarded. The patient is seen on 11/10/2024 in room 262. She remains on volume assist- control, rate 30, tidal volume 320, FiO2 40%, PEEP of 5. Most recent blood gases show pO2 of 78, pCO2 of 52, pH is 7.29. The patient is on propofol at 50 mcg/kg/min, saline at 75cc/hr. Remains on vancomycin and cefepime. Remains on IV solumedrol 60 mg q6hr. Tube feedings vital HP 20 cc/hr with a goal of 40. Yesterday she did not tolerate being off sedation. She was following some commands, but became agitated and hypertensive. All labs, x-rays, and medications are reviewed. CXR still showing bilateral interstitial opacities likely from atypical pneumonia. White count 18.2, hemoglobin 8.6, platelet count 625,000. BUN was 26, creatinine was 0.73. We will continue to follow make recommendations along the way. All labs, x-rays, and medications are reviewed. The patient has a history of underlying COPD, hypertension, hyperlipidemia, coronary disease, heart failure, DVT, hypothyroidism, seizure disorder, and multiple surgical procedures on her cervical and thoracic spine. Will attempt t o wean off sedation today. May end up being a candidate for trach and PEG. Prognosis is guarded. Objective - Vital Signs Vital signs: Vital Signs Temp 99.0 F 11/10/24 04:00 Pulse 89 11/10/24 07:00 Resp 30 H 11/10/24 07:00 BP 96/59 11/10/24 07:00 Pulse Ox 97 11/10/24 07:00 FiO2 40 11/10/24 04:23 Intake & Output 11/09/24 11/10/24 11/10/24 18:59 06:59 18:59 Intake Total 6068.746 1861.435 Output Total 680 1385 Balance 5388.746 476.435 Weight 55 kg Intake: IV 1334 1244 0.9 @ KVO 120 120 Cefepime 2 gm In Sodium 200 100 Chloride 0.9% 100 ml @ 25 mls/hr IVPB Q12H [facility] Rx# :[id number] Magnesium Sulfate-D5w Pmx 100 1 gm In Dextrose/Water 1 100ml.bag @ 100 mls/hr IVPB ONCE ONE Rx#: [id number] Pressure Bag 0.9% NS 39 24 Sodium Chloride 0.9% 1, 975 900 000 ml @ 75 mls/hr IV . [id number] [facility] Rx#:[id number] Intake, IV Titration 194.746 147.435 Amount propofoL 1,000 mg In 194.746 147.435 Empty Bag 1 bag @ 15 MCG/ KG/MIN 4.291 mls/hr IV . [id number] [facility]I Rx#:[id number] Tube Feeding 4480 320 Other 60 150 Output: Gastric Drainage 600 Urine 680 785 Other: Voiding Method Indwelling Catheter Indwelling Catheter ABP, PAP, CO, CI - Last Documented Arterial Blood Pressure 112/84 - Labs CBC & Chem 7: 11/10/24 05:50 11/10/24 05:50 Labs: Abnormal Lab Results - Last 24 Hours (Table) 11/09/24 11/09/24 11/09/24 Range/Units 11:55 18:14 23:33 ABG pH (7.35-7.45) ABG pCO2 (35-45) mmHg ABG pO2 (83-108) mmHg ABG Total CO2 (19-24) mmol/L ABG O2 Saturation (94-97) % Hemoglobin (11.4-16.0) gm/dL Chloride 116 H (98-107) mmol/L BUN 27 H (7-17) mg/dL Glucose 126 H (74-99) mg/dL POC Glucose (mg/dL) 142 H 152 H (70-110) mg/dL ALT 43 H (4-34) U/L Total Protein 5.5 L (6.3-8.2) g/dL Albumin 2.4 L (3.5-5.0) g/dL 11/09/24 11/10/24 11/10/24 Range/Units 23:33 04:45 05:20 ABG pH 7.29 L 7.29 L (7.35-7.45) ABG pCO2 50 H 52 H (35-45) mmHg ABG pO2 59 L* 78 L (83-108) mmHg ABG Total CO2 26 H 27 H (19-24) mmol/L ABG O2 Saturation 89.1 L (94-97) % Hemoglobin 8.3 L 8.2 L (11.4-16.0) gm/dL Chloride (98-107) mmol/L BUN (7-17) mg/dL Glucose (74-99) mg/dL POC Glucose (mg/dL) 130 H (70-110) mg/dL ALT (4-34) U/L Total Protein (6.3-8.2) g/dL Albumin (3.5-5.0) g/dL 11/10/24 11/10/24 Range/Units 05:47 05:50 ABG pH (7.35-7.45) ABG pCO2 (35-45) mmHg ABG pO2 (83-108) mmHg ABG Total CO2 (19-24) mmol/L ABG O2 Saturation (94-97) % Hemoglobin (11.4-16.0) gm/dL Chloride 115 H (98-107) mmol/L BUN 26 H (7-17) mg/dL Glucose 126 H (74-99) mg/dL POC Glucose (mg/dL) 129 H (70-110) mg/dL ALT (4-34) U/L Total Protein (6.3-8.2) g/dL Albumin (3.5-5.0) g/dL Microbiology - Last 24 Hours (Table) 11/06/24 12:36 Blood Culture - Preliminary Blood 11/08/24 10:15 Gram Stain - Preliminary Sputum Sputum Culture - Preliminary Pseudomonas aeruginosa 11/07/24 04:15 Gram Stain - Final Sputum Sputum Culture - Final Pseudomonas aeruginosa Assessment and Plan Assessment: Altered mental status, obtunded requiring intubation and mechanical ventilatory support. Suspect secondary to narcotics. Urine drug screen positive for opiates, barbiturates, tricyclic antidepressants, benzodiazepines and marijuana Acute hypoxemic and hypercapnic respiratory failure secondary to above Discharge from the hospital following surgery on 10/27/2024 for open treatment of a T8 fracture, irrigation and excisional debridement of thoracic spine wound measuring 10 x 7 x 4 cm, posterior lateral instrumented fusion of T7-T11 and cement augmentation of T8-T10 vertebral bodies. Chronic obstructive pulmonary disease/asthma, currently inactive and stable T2 vertebral fracture with revision of C2-T7 posterior lateral fusion on 09/09/2024 Surgical site infection and wound dehiscence, wound and blood cultures revealed no growth Acute leukocytosis, improved Macrocytic anemia Rectal prolapse with bleeding History of hypertension History of hyperlipidemia History of coronary artery disease History of heart failure with preserved ejection fraction History of gastroesophageal reflux disease History of seizure disorder History of hypothyroidism History of anxiety/depression/PTSD Plan: The patient was seen and evaluated Imaging, labs and medications reviewed Currently intubated on the mechanical ventilator ABGs reviewed, appropriate vent changes made Continue vancomycin and cefepime Maintain vital HP at goal of 40 cc/hr Blood cultures showing no growth so far, sputum culture showing pseudomonas MRSA/MSSA screening negative Continue IV solumedrol 60 mg q6hr Attempt to wean off sedation today. May become a likely candidate for trach and PEG Will continue to follow in intensive care unit We will continue to follow and make further recommendations based on her clini bettye status
[2024-11-10] MEDS: POTASSIUM CHLORIDE 10 MEQ in WATER FOR INJECTION 1 100ML.BAG IVPB SCH (10:20)
[2024-11-10 11:44] LABS: Glucose,Whole Blood 123 mg/dL (70-110)
[2024-11-10] MEDS: METOCLOPRAMIDE 5 MG/ML 2 ML VIAL IVP SCH (12:12)
--- NOTE | 2024-11-10 13:23 | P.PN ---
Subjective Progress Note Date: 11/09/24 Principal diagnosis: Reason for follow-up is pneumonia Patient is a 54-year-old female with a past medical history significant for COPD DVT hypertension hyperlipidemia who recently did have a cervical thoracic spine surgery revision for a nonhealing wound to the mid/upper back area patient cultures were negative has been brought to the hospital on the patient was found to be unresponsive requiring elevation and admission to the ICU On today's evaluation that is 11/09/2024,the patient did have resolution of her fever and is afebrile this morning patient remains to be intubated on the vent FiO2 is currently stable at 40%, patient is hemodynamically stable no diarrhea any changes reported by nursing staff. Patient white count is down to 17.9, creatinine 0.65 Objective - Vital Signs Vital signs: Vital Signs Temp 97.9 F 11/09/24 12:00 Pulse 90 11/09/24 12:00 Resp 32 H 11/09/24 12:00 BP 125/72 11/09/24 12:00 Pulse Ox 98 11/09/24 12:00 FiO2 40 11/09/24 12:00 Intake & Output 11/08/24 11/09/24 11/09/24 18:59 06:59 18:59 Intake Total 2120.361 1793.043 964.754 Output Total 740 475 315 Balance 1422.122 0689.043 649.754 Weight 54 kg Intake: IV 1344 968 618 0.9 500 0.9 @ KVO 130 110 50 Cefepime 2 gm In Sodium 100 Chloride 0.9% 100 ml @ 25 mls/hr IVPB Q12H [facility] Rx# :[id number] Pressure Bag 0.9% NS 39 33 18 Sodium Chloride 0.9% 1, 675 825 450 000 ml @ 75 mls/hr IV . [id number] [facility] Rx#:[id number] Intake, IV Titration 166.361 295.043 76.754 Amount Cefepime 2 gm In Sodium 100 Chloride 0.9% 100 ml @ 25 mls/hr IVPB Q12H [facility] Rx# :[id number] Norepinephrine 4 mg In 29.135 Sodium Chloride 0.9% 250 ml @ 0.03 MCG/KG/MIN 5. 738 mls/hr IV .Q24H [facility] Rx#:[id number] propofoL 1,000 mg In 166.361 165.908 76.754 Empty Bag 1 bag @ 15 MCG/ KG/MIN 4.291 mls/hr IV . [id number] [facility] Rx#:[id number] Tube Feeding 520 440 240 Other 90 90 30 Output: Urine 740 475 315 Other: Voiding Method Indwelling Catheter Indwelling Catheter Indwelling Catheter ABP, PAP, CO, CI - Last Documented Arterial Blood Pressure 109/69 - Exam GENERAL DESCRIPTION: Middle-age female intubated on the vent RESPIRATORY SYSTEM: Unlabored breathing , decreased breath sounds at bases HEART: S1 S2 regular rate and rhythm , ABDOMEN: Soft , no tenderness EXTREMITIES: No edema feet - Labs CBC & Chem 7: 11/10/24 05:50 11/10/24 05:50 Labs: Abnormal Lab Results - Last 24 Hours (Table) 11/08/24 11/08/24 11/09/24 Range/Units 17:18 23:23 05:07 WBC (3.8-10.6) k/uL RBC (3.80-5.40) m/uL Hgb (11.4-16.0) gm/dL Hct (34.0-46.0) % MCV (80.0-100.0) fL MCHC (31.0-37.0) g/dL RDW (11.5-15.5) % Plt Count (150-450) k/uL Neutrophils # (1.3-7.7) k/uL Lymphocytes # (1.0-4.8) k/uL ABG pH 7.24 L (7.35-7.45) ABG pCO2 56 H (35-45) mmHg ABG Total CO2 26 H (19-24) mmol/L Hemoglobin 7.9 L (11.4-16.0) gm/dL Chloride (98-107) mmol/L BUN (7-17) mg/dL Glucose (74-99) mg/dL POC Glucose (mg/dL) 153 H 127 H (70-110) mg/dL ALT (4-34) U/L Total Protein (6.3-8.2) g/dL Albumin (3.5-5.0) g/dL 11/09/24 11/09/24 11/09/24 Range/Units 05:18 05:18 11:55 WBC 17.9 H (3.8-10.6) k/uL RBC 2.61 L (3.80-5.40) m/uL Hgb 8.1 L (11.4-16.0) gm/dL Hct 27.6 L (34.0-46.0) % MCV 105.5 H (80.0-100.0) fL MCHC 29.3 L (31.0-37.0) g/dL RDW 15.6 H (11.5-15.5) % Plt Count 572 H (150-450) k/uL Neutrophils # 16.6 H (1.3-7.7) k/uL Lymphocytes # 0.9 L (1.0-4.8) k/uL ABG pH (7.35-7.45) ABG pCO2 (35-45) mmHg ABG Total CO2 (19-24) mmol/L Hemoglobin (11.4-16.0) gm/dL Chloride 116 H (98-107) mmol/L BUN 23 H (7-17) mg/dL Glucose 147 H (74-99) mg/dL POC Glucose (mg/dL) 142 H (70-110) mg/dL ALT 58 H (4-34) U/L Total Protein 5.4 L (6.3-8.2) g/dL Albumin 2.3 L (3.5-5.0) g/dL Microbiology - Last 24 Hours (Table) 11/07/24 04:15 Gram Stain - Final Sputum Sputum Culture - Final Pseudomonas aeruginosa 11/06/24 12:36 Blood Culture - Preliminary Blood 11/08/24 10:15 Gram Stain - Preliminary Sputum 11/07/24 14:36 Nasal Screen MRSA/MSSA - Final Nasal Swab Assessment and Plan (1) Pneumonia Current Visit: Yes Status: Acute Code(s): J18.9 - PNEUMONIA, UNSPECIFIED ORGANISM SNOMED Code(s): 989473734 (2) Abnormal CT scan, chest Current Visit: Yes Status: Acute Code(s): R93.89 - ABNORMAL FINDINGS ON DX IMAGING OF OTH BODY STRUCTURES SNOMED Code(s): 43362954204294285 (3) Leukocytosis Current Visit: No Status: Acute Code(s): D72.829 - ELEVATED WHITE BLOOD CELL COUNT, UNSPECIFIED SNOMED Code(s): 033547585 Plan: 1patient presented to hospital after the patient was found to be unresponsive at home concerning for possible drug overdose also noted to have significant finding on a chest x-ray and the CT concerning for possible pneumonia question of aspiration etiology in this patient has been around the hospital concerning for possible resistant gram-positive as well as gram-negative pathogen, the thoracic or cervical incision currently looks clean without gross cellulitis or any drainage 2-patient white count is trending down blood culture so far negative sputum is growing Pseudomonas 3-patient currently being treated with cefepime to continue and monitor clinical course closely Dictation was produced using [employer] dictation software. please excuse any gra mmatical, word or spelling errors. Time with Patient: Less than 30
--- NOTE | 2024-11-10 13:25 | P.PN ---
Subjective Progress Note Date: 11/10/24 Principal diagnosis: Reason for follow-up is pneumonia Patient is a 54-year-old female with a past medical history significant for COPD DVT hypertension hyperlipidemia who recently did have a cervical thoracic spine surgery revision for a nonhealing wound to the mid/upper back area patient cultures were negative has been brought to the hospital on the patient was found to be unresponsive requiring elevation and admission to the ICU On today's evaluation that is 11/10/2024, the patient did have a low-grade fever of 99.4 F at noon patient remains to be intubated on the vent FiO2 currently stable at 40% no significant tenderness incisions related to the changes r eported by nursing staff. The patient white count is 18.2 creatinine 0.73 sputum is growing Pseudomonas aeruginosa Objective - Vital Signs Vital signs: Vital Signs Temp 99.4 F 11/10/24 12:00 Pulse 96 11/10/24 13:00 Resp 31 H 11/10/24 13:00 BP 139/84 11/10/24 13:00 Pulse Ox 99 11/10/24 13:00 FiO2 40 11/10/24 12:00 Intake & Output 11/09/24 11/10/24 11/10/24 18:59 06:59 18:59 Intake Total 6068.746 1861.435 992.247 Output Total 680 1385 390 Balance 5388.746 476.435 602.247 Weight 55 kg Intake: IV 1334 1244 725 0.9 @ KVO 120 120 50 Cefepime 2 gm In Sodium 200 100 100 Chloride 0.9% 100 ml @ 25 mls/hr IVPB Q12H [facility] Rx# :[id number] Magnesium Sulfate-D5w Pmx 100 1 gm In Dextrose/Water 1 100ml.bag @ 100 mls/hr IVPB ONCE ONE Rx#: [id number] Potassium Chloride 10 meq 200 In Water For Injection 1 100ml.bag @ 100 mls/hr IVPB Q1H [facility] Rx#: [id number] Pressure Bag 0.9% NS 39 24 Sodium Chloride 0.9% 1, 975 900 375 000 ml @ 75 mls/hr IV . [id number] [facility] Rx#:[id number] Intake, IV Titration 194.746 147.435 107.247 Amount propofoL 1,000 mg In 194.746 147.435 107.247 Empty Bag 1 bag @ 15 MCG/ KG/MIN 4.291 mls/hr IV . [id number] [facility] Rx#:[id number] Tube Feeding 4480 320 100 Other 60 150 60 Output: Gastric Drainage 600 Urine 680 785 390 Other: Voiding Method Indwelling Catheter Indwelling Catheter Indwelling Catheter ABP, PAP, CO, CI - Last Documented Arterial Blood Pressure 112/84 - Exam GENERAL DESCRIPTION: Middle-age female intubated on the vent RESPIRATORY SYSTEM: Unlabored breathing , decreased breath sounds at bases HEART: S1 S2 regular rate and rhythm , ABDOMEN: Soft , no tenderness EXTREMITIES: No edema feet - Labs CBC & Chem 7: 11/10/24 05:50 11/10/24 05:50 Labs: Abnormal Lab Results - Last 24 Hours (Table) 11/09/24 11/09/24 11/09/24 Range/Units 18:14 23:33 23:33 WBC (3.8-10.6) k/uL RBC (3.80-5.40) m/uL Hgb (11.4-16.0) gm/dL Hct (34.0-46.0) % MCV (80.0-100.0) fL MCHC (31.0-37.0) g/dL RDW (11.5-15.5) % Plt Count (150-450) k/uL Neutrophils # (1.3-7.7) k/uL Macrocytosis ABG pH (7.35-7.45) ABG pCO2 (35-45) mmHg ABG pO2 (83-108) mmHg ABG Total CO2 (19-24) mmol/L ABG O2 Saturation (94-97) % Hemoglobin (11.4-16.0) gm/dL Chloride 116 H (98-107) mmol/L BUN 27 H (7-17) mg/dL Glucose 126 H (74-99) mg/dL POC Glucose (mg/dL) 152 H 130 H (70-110) mg/dL ALT 43 H (4-34) U/L Total Protein 5.5 L (6.3-8.2) g/dL Albumin 2.4 L (3.5-5.0) g/dL 11/10/24 11/10/24 11/10/24 Range/Units 04:45 05:20 05:47 WBC (3.8-10.6) k/uL RBC (3.80-5.40) m/uL Hgb (11.4-16.0) gm/dL Hct (34.0-46.0) % MCV (80.0-100.0) fL MCHC (31.0-37.0) g/dL RDW (11.5-15.5) % Plt Count (150-450) k/uL Neutrophils # (1.3-7.7) k/uL Macrocytosis ABG pH 7.29 L 7.29 L (7.35-7.45) ABG pCO2 50 H 52 H (35-45) mmHg ABG pO2 59 L* 78 L (83-108) mmHg ABG Total CO2 26 H 27 H (19-24) mmol/L ABG O2 Saturation 89.1 L (94-97) % Hemoglobin 8.3 L 8.2 L (11.4-16.0) gm/dL Chloride (98-107) mmol/L BUN (7-17) mg/dL Glucose (74-99) mg/dL POC Glucose (mg/dL) 129 H (70-110) mg/dL ALT (4-34) U/L Total Protein (6.3-8.2) g/dL Albumin (3.5-5.0) g/dL 11/10/24 11/10/24 11/10/24 Range/Units 05:50 05:50 11:40 WBC 18.2 H (3.8-10.6) k/uL RBC 2.80 L (3.80-5.40) m/uL Hgb 8.6 L (11.4-16.0) gm/dL Hct 29.8 L (34.0-46.0) % MCV 106.5 H (80.0-100.0) fL MCHC 28.8 L (31.0-37.0) g/dL RDW 16.0 H (11.5-15.5) % Plt Count 625 H (150-450) k/uL Neutrophils # 16.5 H (1.3-7.7) k/uL Macrocytosis Marked A ABG pH (7.35-7.45) ABG pCO2 (35-45) mmHg ABG pO2 (83-108) mmHg ABG Total CO2 (19-24) mmol/L ABG O2 Saturation (94-97) % Hemoglobin (11.4-16.0) gm/dL Chloride 115 H (98-107) mmol/L BUN 26 H (7-17) mg/dL Glucose 126 H (74-99) mg/dL POC Glucose (mg/dL) 123 H (70-110) mg/dL ALT (4-34) U/L Total Protein (6.3-8.2) g/dL Albumin (3.5-5.0) g/dL Microbiology - Last 24 Hours (Table) 11/08/24 10:15 Gram Stain - Final Sputum Sputum Culture - Final Pseudomonas aeruginosa 11/06/24 12:36 Blood Culture - Preliminary Blood 11/07/24 04:15 Gram Stain - Final Sputum Sputum Culture - Final Pseudomonas aeruginosa Assessment and Plan (1) Pneumonia Current Visit: Yes Status: Acute Code(s): J18.9 - PNEUMONIA, UNSPECIFIED ORGANISM SNOMED Code(s): 444022160 (2) Abnormal CT scan, chest Current Visit: Yes Status: Acute Code(s): R93.89 - ABNORMAL FINDINGS ON DX IMAGING OF OTH BODY STRUCTURES SNOMED Code(s): 17199316829763829 (3) Leukocytosis Current Visit: No Status: Acute Code(s): D72.829 - ELEVATED WHITE BLOOD CELL COUNT, UNSPECIFIED SNOMED Code(s): 038756352 Plan: 1patient presented to hospital after the patient was found to be unresponsive at home concerning for possible drug overdose also noted to have significant finding on a chest x-ray and the CT concerning for possible pneumonia question of aspiration etiology in this patient has been around the hospital concerning for possible resistant gram-positive as well as gram-negative pathogen, the thoracic or cervical incision currently looks clean without gross cellulitis or any drainage 2-patient white count is slightly up could be related to the steroid the patient is on as evidence of any worsening clinical condition blood culture remains to be negative patient will continue with the cefepime and will monitor clinical course closely Family at the bedside questions answered Dictation was produced using [employer] dictation software. please excuse any grammatical, word or spelling errors. Time with Patient: Less than 30
[2024-11-10 17:53] LABS: Glucose,Whole Blood 118 mg/dL (70-110)
--- NOTE | 2024-11-10 20:23 | P.PN ---
Subjective Progress Note Date: 11/10/24 Patient is evaluated today in follow up in the intensive care unit. Patient remains intubated on the mechanical ventilator with PEEP of 5 and FiO2 of 40%. Patient remains sedated. LFTs remain elevated, white blood cell count up to 38. Blood culture pending. Patient continues on IV Vancomycin and IV cefepime. ID following. Chest xray today reveals stable upper lobe interstitial opacities. Spinal surgery evaluated the patient felt the wound was noninfectious and healing well. Patients heart rate has been in the 120s was resumed on home medication of propanolol and has had improvement in the heart rate down to the 80s this afternoon. 11/08/2024 Patient is evaluated today in follow up in the ICU. Remains intubated and sedated on the mechanical ventilator with settings at PEEP of 5 and 40% FiO2. Chest xray today reveals interstitial opacities correlating for atypical pneumonia. There is extensive fixation hardware throughout the spine. White blood cell count of 18.7, hgb 7.0, MCV 105.6. Magnesium 1.2, potassium 3.3. Remains on IV cefepime, IV vancomycin. Has been started on systemic steroids. P atient with low grade temp of 99.8 today. Blood pressure low/normal. 11/09/2024 Patient is evaluated in the Intensive care unit, family at the bedside. Patient remains on the mechanical ventilator with PEEP of 5, FiO2 of 40%. Not ready for weaning today. Chest xray reveals interstitial opacities of the lungs correlate for atypical pneumonia. Sputum positive for pseudomonas. Patient remains on IV Cefepime. Also on IV solumedrol. Patient is sedated with propofol. Normal saline is running at 75 mls/hr. White blood cell count 17.9, hgb 8.1. Sodium 145, potassium 4.1, BUN 23, creatinine 0.67. Patient with low grade temp 99 axillary. 11/10/2024 Patient evaluated today in the intensive care unit. She remains sedated and intubated on mechanical ventilator settings of PEEP of 5 with FiO2 40%. She is awake and alert although her eyes are not tracking. She does remain on propofol. Chest x-ray today reveals interstitial opacities of the lungs are unchanged. Sputum culture shows Pseudomonas x 2. Her labs today reveal a white blood cell count of 18.2, hemoglobin 8.6, platelet count of 625, sodium of 145, potassium 3.8, BUN of 26, creatinine of 0.73, magnesium 2.1. Her blood glucose is controlled. She is having some residuals with the enteral feedings per the nurse they have been decreased to 20 mL/h and will monitor the residuals closely. Patient continues on IV cefepime IV Solu-Medrol. She is sedated with IV propofol she is on normal saline at 75 mL/h. Pulmonary is considering this patient for tracheostomy and PEG tube placement Unable to complete review of systems patient is currently intubated and sedated. Physical Examination GENERAL EXAM: Intubated, mechanically ventilated, thin 54-year-old female, on the ventilator, in no apparent distress. HEAD: Normocephalic. Normal reaction of pupils, equal size. THROAT: No erythema or exudates. NECK: No masses, no JVD. CHEST: No chest wall deformity. LUNGS: Equal air entry with no crackles, wheeze, rhonchi or dullness. CVS: S1 and S2 normal with no audible murmur, regular rhythm. ABDOMEN: No hepatosplenomegaly, normal bowel sounds, no guarding or rigidity. SPINE: No scoliosis or deformity. Surgical dressing dry and intact. SKIN: No rashes CENTRAL NERVOUS SYSTEM: Sedated, tone is normal in all 4 extremities. EXTREMITIES: There is no peripheral edema. No clubbing, no cyanosis. Peripheral pulses are intact. Assessment and Plan -Altered mental status/unresponsive, likely related to narcotics versus sepsis -Unable to rule out aspiration pneumonia -Pseudomonas pneumonia Healthcare acquired -Acute hypoxic/hypercapnic respiratory failure; as indicated above; patient remains intubated with mechanical ventilation -Surgical site infection/wound dehiscence and Patient is status post surgery on 10/27/2024 for open treatment of a T8 fracture, irrigation and excisional debridement of thoracic spine wound measuring 10 x 7 x 4 cm, posterior lateral instrumented fusion of T7-T11 and cement augmentation of T8-T10 vertebral bodies; Orthopedic surgery consulted and felt the wound was noninfectious and healing well. -Leukocytosis/sepsis; continue with IV antibiotics as indicated above; patient has been pancultured -History of hypertension; propranolol 20 mg twice daily has been resumed; prazosin 2 mg twice daily on hold -Macroctyic anemia -Hyperlipidemia; currently not on any statin therapy -Hypothyroidism; levothyroxine 88 mcg daily -History of CAD -Chronic heart failure with preserved EF with no acute exacerbation -History of COPD/Asthma -PTSD/Bipolar/Borderline personality -Chronic nicotine use -Polysubstance use -Rectal prolapse -Hx seizure disorder -Gastroesophageal reflux DVT prophylaxis; SCDs/subcu heparin CODE STATUS; full code Plan -Patient was intubated and mechanically ventilated in ED -Urine drug screen positive for opiates, barbiturates, tricyclic antidepressants, benzodiazepines and marijuana concern for polysubstance use -Blood culture pending -Sputum culture preliminary revealing pseudomonas aeruginosa. -All narcotics are currently being held -Critical care service on board -Patient has been placed on IV antibiotics in form of cefepime and vancomycin -Continue IV Solu-Medrol -Enteral feedings have been decreased to 20 mL/h secondary to large volume residuals. She is having bowel movements -Antiseizure medications have been resumed -Monitor electrolytes and renal function -Critical care service will attempt to wean patient off sedation today. She may be a candidate for trach and PEG tube placement. The impression and plan of care has been dictated by Nichelle Loya, Nurse Practitioner as directed. Dr. Jayson MD I have performed a history and physical examination and medical decision making of this patient, discussed the same with the dictator, and agree with the dictators assessment and plan as written, documented as a scribe. Based on total visit time, I have performed more than 50% of this visit. Objective - Vital Signs Vital signs: Vital Signs Temp 99.4 F 11/10/24 16:00 Pulse 104 H 11/10/24 20:16 Resp 34 H 11/10/24 20:16 BP 138/92 11/10/24 19:00 Pulse Ox 97 11/10/24 19:00 FiO2 40 11/10/24 20:15 Intake & Output 11/10/24 11/10/24 11/11/24 06:59 18:59 06:59 Intake Total 2326.106 8695.237 18.354 Output Total 1385 1020 Balance 476.435 892.237 18.354 Weight 55 kg 55 kg Intake: IV 1244 1420 0.9 @ KVO 120 120 Cefepime 2 gm In Sodium 100 200 Chloride 0.9% 100 ml @ 25 mls/hr IVPB Q12H [facility] Rx# :[id number] Magnesium Sulfate-D5w Pmx 100 1 gm In Dextrose/Water 1 100ml.bag @ 100 mls/hr IVPB ONCE ONE Rx#: [id number] Potassium Chloride 10 meq 200 In Water For Injection 1 100ml.bag @ 100 mls/hr IVPB Q1H [facility] Rx#: [id number] Pressure Bag 0.9% NS 24 Sodium Chloride 0.9% 1, 900 900 000 ml @ 75 mls/hr IV . [id number] [facility] Rx#:[id number] Intake, IV Titration 147.435 162.237 18.354 Amount propofoL 1,000 mg In 147.435 162.237 18.354 Empty Bag 1 bag @ 15 MCG/ KG/MIN 4.291 mls/hr IV . [id number] [facility] Rx#:[id number] Tube Feeding 320 240 Other 150 90 Output: Gastric Drainage 600 Urine 785 1020 Other: Voiding Method Indwelling Catheter Indwelling Catheter ABP, PAP, CO, CI - Last Documented Arterial Blood Pressure 112/84 - Labs CBC & Chem 7: 11/10/24 05:50 11/10/24 05:50 Labs: Abnormal Lab Results - Last 24 Hours (Table) 11/09/24 11/09/24 11/10/24 Range/Units 23:33 23:33 04:45 WBC (3.8-10.6) k/uL RBC (3.80-5.40) m/uL Hgb (11.4-16.0) gm/dL Hct (34.0-46.0) % MCV (80.0-100.0) fL MCHC (31.0-37.0) g/dL RDW (11.5-15.5) % Plt Count (150-450) k/uL Neutrophils # (1.3-7.7) k/uL Macrocytosis ABG pH 7.29 L (7.35-7.45) ABG pCO2 50 H (35-45) mmHg ABG pO2 59 L* (83-108) mmHg ABG Total CO2 26 H (19-24) mmol/L ABG O2 Saturation 89.1 L (94-97) % Hemoglobin 8.3 L (11.4-16.0) gm/dL Chloride 116 H (98-107) mmol/L BUN 27 H (7-17) mg/dL Glucose 126 H (74-99) mg/dL POC Glucose (mg/dL) 130 H (70-110) mg/dL ALT 43 H (4-34) U/L Total Protein 5.5 L (6.3-8.2) g/dL Albumin 2.4 L (3.5-5.0) g/dL 11/10/24 11/10/24 11/10/24 Range/Units 05:20 05:47 05:50 WBC 18.2 H (3.8-10.6) k/uL RBC 2.80 L (3.80-5.40) m/uL Hgb 8.6 L (11.4-16.0) gm/dL Hct 29.8 L (34.0-46.0) % MCV 106.5 H (80.0-100.0) fL MCHC 28.8 L (31.0-37.0) g/dL RDW 16.0 H (11.5-15.5) % Plt Count 625 H (150-450) k/uL Neutrophils # 16.5 H (1.3-7.7) k/uL Macrocytosis Marked A ABG pH 7.29 L (7.35-7.45) ABG pCO2 52 H (35-45) mmHg ABG pO2 78 L (83-108) mmHg ABG Total CO2 27 H (19-24) mmol/L ABG O2 Saturation (94-97) % Hemoglobin 8.2 L (11.4-16.0) gm/dL Chloride (98-107) mmol/L BUN (7-17) mg/dL Glucose (74-99) mg/dL POC Glucose (mg/dL) 129 H (70-110) mg/dL ALT (4-34) U/L Total Protein (6.3-8.2) g/dL Albumin (3.5-5.0) g/dL 11/10/24 11/10/24 11/10/24 Range/Units 05:50 11:40 17:51 WBC (3.8-10.6) k/uL RBC (3.80-5.40) m/uL Hgb (11.4-16.0) gm/dL Hct (34.0-46.0) % MCV (80.0-100.0) fL MCHC (31.0-37.0) g/dL RDW (11.5-15.5) % Plt Count (150-450) k/uL Neutrophils # (1.3-7.7) k/uL Macrocytosis ABG pH (7.35-7.45) ABG pCO2 (35-45) mmHg ABG pO2 (83-108) mmHg ABG Total CO2 (19-24) mmol/L ABG O2 Saturation (94-97) % Hemoglobin (11.4-16.0) gm/dL Chloride 115 H (98-107) mmol/L BUN 26 H (7-17) mg/dL Glucose 126 H (74-99) mg/dL POC Glucose (mg/dL) 123 H 118 H (70-110) mg/dL ALT (4-34) U/L Total Protein (6.3-8.2) g/dL Albumin (3.5-5.0) g/dL Microbiology - Last 24 Hours (Table) 11/08/24 10:15 Gram Stain - Final Sputum Sputum Culture - Final Pseudomonas aeruginosa 11/06/24 12:36 Blood Culture - Preliminary Blood Assessment and Plan Time with Patient: Less than 30
[2024-11-11] LABS: Glucose,Whole Blood 135 mg/dL (70-110)
--- NOTE | 2024-11-11 05:34 | XR ---
EXAMINATION TYPE: XR chest 1V portable DATE OF EXAM: 11/11/2024 CLINICAL INDICATION: Female, 54 years old with history of Intubated, progress study. TECHNIQUE: Single AP portable semiupright view of the chest is obtained. COMPARISON: Chest x-ray from one day earlier and older studies. FINDINGS: Stable endotracheal and orogastric tubes. Persistent increased interstitial markings bilaterally. No new focal airspace opacity, pleural effusi on, or pneumothorax is seen bilaterally. Cardiac silhouette size is stable and within normal limits. Extensive surgical change to the visualized spine is redemonstrated. IMPRESSION: Overall stable findings, no new acute pulmonary process. [facility], , 11/11/2024 5:32 AM
[2024-11-11 05:42] LABS: HCT 29.1 % (34.0-46.0); HGB 8.3 gm/dL (11.4-16.0); Hypochromasia Marked; MCH 30.2 pg (25.0-35.0); MCHC 28.3 g/dL (31.0-37.0); Macrocytosis Marked; Mean Platelet Volume 7.2; Platelet Count 627 k/uL (150-450); RBC 2.73 m/uL (3.80-5.40); RDW 15.8 % (11.5-15.5); WBC 19.2 k/uL (3.8-10.6)
[2024-11-11 05:43] LABS: MCV 106.7 fL (80.0-100.0)
[2024-11-11 05:53] LABS: Glucose,Whole Blood 120 mg/dL (70-110)
[2024-11-11 05:55] LABS: African American GFR (CKD) >90 (>60 ml/min/1.73 sqM); Anion Gap 6 mmol/L; Blood Urea Nitrogen 27 mg/dL (7-17); Calcium 8.9 mg/dL (8.4-10.2); Carbon Dioxide 23 mmol/L (22-30); Chloride 115 mmol/L (98-107); Glucose 120 mg/dL (74-99); Non-African American GFR(CKD) >90 (>60 ml/min/1.73 sqM); Sodium 144 mmol/L (137-145)
[2024-11-11 05:58] LABS: ABG Base Excess -1.5 mmol/L; ABG HCO3 25 mmol/L (21-25); ABG Oxygen Saturation 95.5 % (94-97); ABG PCO2 52 mmHg (35-45); ABG PH 7.29 (7.35-7.45); ABG PO2 79 mmHg (83-108); ABG TCO2 27 mmol/L (19-24); Allen Test Performed? Yes
--- NOTE | 2024-11-11 08:42 | P.PN ---
Progress Note - Text Progress Note Date: 11/11/24 Patient seen and examined this morning. Staff was at bedside, patient was opening her eyes spontaneously but is not following any direction. There is discussion of possible trach and PEG tube placement if patient does not improve. Surgical incision to the thoracic spine, edges are well-approximated with sutures intact. No active drainage. Dressing is clean dry and intact. No acute concerns.
--- NOTE | 2024-11-11 10:31 | P.PN ---
Subjective Progress Note Date: 11/11/24 This is a 54-year-old female patient with a known history of COPD, hypertension, hyperlipidemia, coronary disease, congestive heart failure, DVT, hypothyroidism, seizure disorder, multiple previous back surgeries. She had most recently undergone a C2-T7 posterior lateral fusion on 09/09/2024. She developed a significant infection and wound dehiscence and was back here in the hospital and had undergone irrigation and excisional debridement of a thoracic spine wound on 10/27/2024 and discharged to home on 11/02/2024. She was brought back here to the emergency room earlier this morning after being found obtunded and unresponsive by her . She was intubated here in the emergency department. Chest x- ray revealed bilateral upper interstitial opacities concerning for pneumonia versus fluid volume overload. Evidence of COPD. Endotracheal tube and nasogastric tubes in position. CT scan of the brain revealed no acute intracranial process. CT angiogram ruled out pulmonary embolism. There is bilateral upper lobe reticular opacities with right greater than left raising concerns for infection. Few foci of gas identified within the left supraclavicular region and left anterior chest wall possibly with venous vasculature. CT scan of the thoracic spine reveals extensive postsurgical changes. No gross evidence of complication. White count 9.0. Hemoglobin 10.6. Platelets 800,000. INR 0.9. Sodium 144. Potassium 4.0. Bicarb 27. BUN 16. Creatinine 0.96. Glucose 111. Lactic acid 3.0. AST 86. ALT 39. Troponin 0.044. Urinalysis clean. Drug urine screen is positive for opiates, barbiturates, antidepressants, benzodiazepines and marijuana. Initial arterial blood gases on 100% FiO2 revealed a PaO2 of 34, pCO2 89 and a pH of 7.07. Follow-up blood gases on the mechanical ventilator on 100% revealed a PaO2 greater than 420, pCO2 61 and a pH of 7.20. Her current vent settings are assist-control mode at a rate of 26, tidal volume 320 and FiO2 50% and a PEEP of 5. She is sedated on propofol at 50 mcg/kg/h. She has been initiated on vancomycin and cefepime. Received Narcan without improvement initially. She received 2 L of fluid resuscitation. 11/07/2024: Patient is a 54 year old female who was admmited to the ICU on 11/06/2024 with acute hypoxic respiratory failure. She arrived to ED unresponsive. Initially thought it was narcotic overdose. Did not improve with narcan. Ultimately intubated and mechanically ventillated on 11/06 . Patient tested positive for opiates, barbiturates, tricyclic's, benzodiazepines, and marijuana. Her underlying problems include COPD, hypertension, hyperlipidemia, coronary disease, congestive heart failure, DVT, hypothyroidism, seizure disorder, multiple previous back surgeries, T2 vertebral fracture with revision of C2-T7 posterior lateral fusion on 09/09/2024 patient developed surgical wound infection and dehiscence of wound. Patient was seen today 11/07/2024. Remains intubated and mechanically ventillated on assist controlled at a rate of 30, tidal volume 320, FiO2 50%, PEEP of 5. ABG: pH 7.17/pCO2 66 /pO2 70. Currently on propofol 50 mcg/kg/min and normal saline 0.9% at 125 cc/hr. No acute events overnight. Repeat CXR showing bilateral pleural and interstitial opacities. Labs WBC 38.9 Hgb 8.2, platelets 659, CO2 21, anion gap 11, BUN 16, creatinine 0.96 CRP 26.5. Patient currently on IV vancomycin dosed by pharmacy and cefepime 2 g IVPB every 12 hours. Blood cultures are pending. MRSA/MSSA screening pending. Currently not on any tube feeding. The patient is seen on 11/08/2024 in room 262. She remains on volume assist- control, rate 30, tidal volume 320, FiO2 40%, PEEP of 5. Most recent blood gases show pO2 of 110, pCO2 of 56, pH is 7.24. The patient is on propofol at 50 mcg/kg/min, saline at 125 cc an hour which we will decrease to 75cc an hour d/t suspected dillutional anemia, and vancomycin and cefepime. Tube feedings vital HP 40 cc/hr which is goal. Blood cultures showing no growth. Left brachial ART line was placed last night. All labs, x-rays, and medications are reviewed. CXR showing bilateral interstitial opacities. White count 18.7, hemoglobin 7.0, platelet count 505,000. BUN was 19, creatinine was 0.85. We will continue to follow make recommendations along the way. All labs, x-rays, and medications a re reviewed. The patient has a history of underlying COPD, hypertension, hyperlipidemia, coronary disease, heart failure, DVT, hypothyroidism, seizure disorder, and multiple surgical procedures on her cervical and thoracic spine. Prognosis is guarded. The patient is seen on 11/09/2024 in room 262. She remains on volume assist- control, rate 30, tidal volume 320, FiO2 40%, PEEP of 5. Most recent blood gases show pO2 of 89, pCO2 of 56, pH is 7.24. The patient is on propofol at 20 mcg/kg/min, saline at 75cc. Remains on vancomycin and cefepime. Yesterday was placed IV solumedrol 40 mg q8hr, but will increase to 60 mg q6hr. Tube feedings vital HP 40 cc/hr which is goal. Blood cultures showing no growth. Sputum cultures showing pseudomonas. MRSA/MSSA nares negative. Yesterday she did not tolerate being off sedation. Only lasted for 20 minutes due to her peak pressuing and being tachypnic. She was given dilaudid yesterday which caused her to be hypotensive so she was subsequently put on levofed but has since been off it since 530a. All labs, x-rays, and medications are reviewed. CXR still showing bilateral interstitial opacities likely from atypical pneumonia. White count 17.9, hemoglobin 8.1, platelet count 572,000. BUN was 23, creatinine was 0.67. AST 35, ALT 58. We will continue to follow make recommendations along the way. All labs, x-rays, and medications are reviewed. The patient has a history of underlying COPD, hypertension, hyperlipidemia, coronary disease, heart failure, DVT, hypothyroidism, seizure disorder, and multiple surgical procedures on her cervical and thoracic spine. Prognosis is guarded. The patient is seen on 11/10/2024 in room 262. She remains on volume assist- control, rate 30, tidal volume 320, FiO2 40%, PEEP of 5. Most recent blood gases show pO2 of 78, pCO2 of 52, pH is 7.29. The patient is on propofol at 50 mcg/kg/min, saline at 75cc/hr. Remains on vancomycin and cefepime. Remains on IV solumedrol 60 mg q6hr. Tube feedings vital HP 20 cc/hr with a goal of 40. Yesterday she did not tolerate being off sedation. She was following some commands, but became agitated and hypertensive. All labs, x-rays, and medications are reviewed. CXR still showing bilateral interstitial opacities likely from atypical pneumonia. White count 18.2, hemoglobin 8.6, platelet count 625,000. BUN was 26, creatinine was 0.73. We will continue to follow make recommendations along the way. All labs, x-rays, and medications are reviewed. The patient has a history of underlying COPD, hypertension, hyperlipidemia, coronary disease, heart failure, DVT, hypothyroidism, seizure disorder, and multiple surgical procedures on her cervical and thoracic spine. Will attempt to wean off sedation today. May end up being a candidate for trach and PEG. Prognosis is guarded. The patient is seen on 11/11/2024 in room 262. She remains on volume assist- control, rate 30, tidal volume 320, FiO2 40%, PEEP of 5. Most recent blood gases show pO2 of 79, pCO2 of 52, pH is 7.29. Airway resistance 17 cm H20/L/sec. Dynamic compliance 11.8 mL/cm of H20. Static compliance 27 mL/cm H 20. The patient is on propofol at 50 mcg/kg/min, saline at 70cc/hr. Remains on vancomycin and cefepime. Remains on IV solumedrol 60 mg q6hr. Tube feedings vital HP 20 cc/hr with a goal of 45. Yesterday she did not tolerate being off sedation. She became agitated and hypertensive. All labs, x-rays, and medications are reviewed. CXR still showing bilateral interstitial opacities. White count 19.2, hemoglobin 8.3, platelet count 627,000. BUN was 27, creatinine was 0.66. We will continue to follow make recommendations along the way. All labs, x-rays, and medications are reviewed. The patient has a history of underlying COPD, hypertension, hyperlipidemia, coronary disease, heart failure, DVT, hypothyroidism, seizure disorder, and multiple surgical procedures on her cervical and thoracic spine. Will attempt to wean off sedation today. M ay end up being a candidate for trach and PEG. Prognosis is guarded. Objective - Vital Signs Vital signs: Vital Signs Temp 98.8 F 11/11/24 04:00 Pulse 87 11/11/24 07:00 Resp 31 H 11/11/24 07:00 BP 109/67 11/11/24 07:00 Pulse Ox 97 11/11/24 07:00 FiO2 40 11/11/24 04:22 Intake & Output 11/10/24 11/11/24 11/11/24 18:59 06:59 18:59 Intake Total 6393.373 2835.333 Output Total 1020 1125 Balance 892.237 382.333 Weight 55 kg 56.1 kg Intake: IV 1420 1010 0.9 @ KVO 120 20 Cefepime 2 gm In Sodium 200 100 Chloride 0.9% 100 ml @ 25 mls/hr IVPB Q12H [facility] Rx# :[id number] Potassium Chloride 10 meq 200 In Water For Injection 1 100ml.bag @ 100 mls/hr IVPB Q1H [facility] Rx#: [id number] Sodium Chloride 0.9% 1, 900 890 000 ml @ 75 mls/hr IV . [id number] [facility] Rx#:[id number] Intake, IV Titration 162.237 167.333 Amount propofoL 1,000 mg In 162.237 167.333 Empty Bag 1 bag @ 15 MCG/ KG/MIN 4.291 mls/hr IV . [id number] [facility] Rx#:[id number] Tube Feeding 240 240 Other 90 90 Output: Urine 1020 1125 Other: Voiding Method Indwelling Catheter Indwelling Catheter ABP, PAP, CO, CI - Last Documented Arterial Blood Pressure 112/84 - Labs CBC & Chem 7: 11/11/24 05:18 11/11/24 05:18 Labs: Abnormal Lab Results - Last 24 Hours (Table) 11/10/24 11/10/24 11/10/24 Range/Units 05:50 11:40 17:51 WBC 18.2 H (3.8-10.6) k/uL RBC 2.80 L (3.80-5.40) m/uL Hgb 8.6 L (11.4-16.0) gm/dL Hct 29.8 L (34.0-46.0) % MCV 106.5 H (80.0-100.0) fL MCHC 28.8 L (31.0-37.0) g/dL RDW 16.0 H (11.5-15.5) % Plt Count 625 H (150-450) k/uL Neutrophils # 16.5 H (1.3-7.7) k/uL Macrocytosis Marked A ABG pH (7.35-7.45) ABG pCO2 (35-45) mmHg ABG pO2 (83-108) mmHg ABG Total CO2 (19-24) mmol/L Hemoglobin (11.4-16.0) gm/dL Chloride (98-107) mmol/L BUN (7-17) mg/dL Glucose (74-99) mg/dL POC Glucose (mg/dL) 123 H 118 H (70-110) mg/dL 11/10/24 11/11/24 11/11/24 Range/Units 23:59 05:18 05:18 WBC 19.2 H (3.8-10.6) k/uL RBC 2.73 L (3.80-5.40) m/uL Hgb 8.3 L (11.4-16.0) gm/dL Hct 29.1 L (34.0-46.0) % MCV 106.7 H (80.0-100.0) fL MCHC 28.3 L (31.0-37.0) g/dL RDW 15.8 H (11.5-15.5) % Plt Count 627 H (150-450) k/uL Neutrophils # (1.3-7.7) k/uL Macrocytosis Marked A ABG pH (7.35-7.45) ABG pCO2 (35-45) mmHg ABG pO2 (83-108) mmHg ABG Total CO2 (19-24) mmol/L Hemoglobin (11.4-16.0) gm/dL Chloride 115 H (98-107) mmol/L BUN 27 H (7-17) mg/dL Glucose 120 H (74-99) mg/dL POC Glucose (mg/dL) 135 H (70-110) mg/dL 11/11/24 11/11/24 Range/Units 05:52 05:57 WBC (3.8-10.6) k/uL RBC (3.80-5.40) m/uL Hgb (11.4-16.0) gm/dL Hct (34.0-46.0) % MCV (80.0-100.0) fL MCHC (31.0-37.0) g/dL RDW (11.5-15.5) % Plt Count (150-450) k/uL Neutrophils # (1.3-7.7) k/uL Macrocytosis ABG pH 7.29 L (7.35-7.45) ABG pCO2 52 H (35-45) mmHg ABG pO2 79 L (83-108) mmHg ABG Total CO2 27 H (19-24) mmol/L Hemoglobin 7.5 L (11.4-16.0) gm/dL Chloride (98-107) mmol/L BUN (7-17) mg/dL Glucose (74-99) mg/dL POC Glucose (mg/dL) 120 H (70-110) mg/dL Microbiology - Last 24 Hours (Table) 11/08/24 10:15 Gram Stain - Final Sputum Sputum Culture - Final Pseudomonas aeruginosa Assessment and Plan Assessment: Altered mental status, obtunded requiring intubation and mechanical ventilatory support. Suspect secondary to narcotics. Urine drug screen positive for opiates, barbiturates, tricyclic antidepressants, benzodiazepines and marijuana Acute hypoxemic and hypercapnic respiratory failure secondary to above Discharge from the hospital following surgery on 10/27/2024 for open treatment of a T8 fracture, irrigation and excisional debridement of thoracic spine wound measuring 10 x 7 x 4 cm, posterior lateral instrumented fusion of T7-T11 and cement augmentation of T8-T10 vertebral bodies. Chronic obstructive pulmonary disease/asthma, currently inactive and stable T2 vertebral fracture with revision of C2-T7 posterior lateral fusion on 09/09/2024 Surgical site infection and wound dehiscence, wound and blood cultures revealed no growth Acute leukocytosis, improved Macrocytic anemia Rectal prolapse with bleeding History of hypertension History of hyperlipidemia History of coronary artery disease History of heart failure with preserved ejection fraction History of gastroesophageal reflux disease History of seizure disorder History of hypothyroidism History of anxiety/depression/PTSD Plan: The patient was seen and evaluated Imaging, labs and medications reviewed Currently intubated on the mechanical ventilator ABGs reviewed, appropriate vent changes made Continue vancomycin and cefepime Continue vital HP Blood cultures showing no growth so far, sputum culture showing pseudomonas MRSA/MSSA screening negative Continue IV solumedrol 60 mg q6hr Attempt to wean off sedation today, likely candidate for trach and PEG Will continue to follow in intensive care unit We will continue to follow and make further recommendations based on her clinical status
[2024-11-11 11:52] LABS: Glucose,Whole Blood 122 mg/dL (70-110)
--- NOTE | 2024-11-11 15:32 | P.PN ---
Subjective Progress Note Date: 11/11/24 Principal diagnosis: Reason for follow-up is pneumonia Patient is a 54-year-old female with a past medical history significant for COPD DVT hypertension hyperlipidemia who recently did have a cervical thoracic spine surgery revision for a nonhealing wound to the mid/upper back area patient cultures were negative has been brought to the hospital on the patient was found to be unresponsive requiring elevation and admission to the ICU On today's evaluation that is 11/11/2024, the patient continues to be afebrile, the patient is intubated on the vent FiO2 at 40% no significant purulent secretion through the ET or any other changes reported by the nursing staff. Patient white count is 19.2, creatinine 0.66 Objective - Vital Signs Vital signs: Vital Signs Temp 98.8 F 11/11/24 04:00 Pulse 101 H 11/11/24 12:00 Resp 25 H 11/11/24 12:00 BP 148/77 11/11/24 12:00 Pulse Ox 98 11/11/24 12:00 FiO2 40 11/11/24 12:00 Intake & Output 11/10/24 11/11/24 11/11/24 18:59 06:59 18:59 Intake Total 3375.705 8526.333 673.949 Output Total 1020 1125 350 Balance 892.237 382.333 323.949 Weight 55 kg 56.1 kg 56.1 kg Intake: IV 1420 1010 285 0.9 @ KVO 120 20 Cefepime 2 gm In Sodium 200 100 Chloride 0.9% 100 ml @ 25 mls/hr IVPB Q12H [facility] Rx# :[id number] Potassium Chloride 10 meq 200 In Water For Injection 1 100ml.bag @ 100 mls/hr IVPB Q1H [facility] Rx#: [id number] Sodium Chloride 0.9% 1, 900 890 285 000 ml @ 75 mls/hr IV . [id number] [facility] Rx#:[id number] Intake, IV Titration 162.237 167.333 158.949 Amount Cefepime 2 gm In Sodium 100 Chloride 0.9% 100 ml @ 25 mls/hr IVPB Q8HR [facility] Rx# :[id number] propofoL 1,000 mg In 162.237 167.333 58.949 Empty Bag 1 bag @ 15 MCG/ KG/MIN 4.291 mls/hr IV . [id number] [facility] Rx#:[id number] Tube Feeding 240 240 100 Other 90 90 130 Output: Urine 1020 1125 350 Other: Voiding Method Indwelling Catheter Indwelling Catheter Indwelling Catheter ABP, PAP, CO, CI - Last Documented Arterial Blood Pressure 112/84 - Exam GENERAL DESCRIPTION: Middle-age female intubated on the vent RESPIRATORY SYSTEM: Unlabored breathing , decreased breath sounds at bases HEART: S1 S2 regular rate and rhythm , ABDOMEN: Soft , no tenderness EXTREMITIES: No edema feet - Labs CBC & Chem 7: 11/11/24 05:18 11/11/24 05:18 Labs: Abnormal Lab Results - Last 24 Hours (Table) 11/10/24 11/10/24 11/11/24 Range/Units 17:51 23:59 05:18 WBC (3.8-10.6) k/uL RBC (3.80-5.40) m/uL Hgb (11.4-16.0) gm/dL Hct (34.0-46.0) % MCV (80.0-100.0) fL MCHC (31.0-37.0) g/dL RDW (11.5-15.5) % Plt Count (150-450) k/uL Macrocytosis ABG pH (7.35-7.45) ABG pCO2 (35-45) mmHg ABG pO2 (83-108) mmHg ABG Total CO2 (19-24) mmol/L Hemoglobin (11.4-16.0) gm/dL Chloride 115 H (98-107) mmol/L BUN 27 H (7-17) mg/dL Glucose 120 H (74-99) mg/dL POC Glucose (mg/dL) 118 H 135 H (70-110) mg/dL 11/11/24 11/11/24 11/11/24 Range/Units 05:18 05:52 05:57 WBC 19.2 H (3.8-10.6) k/uL RBC 2.73 L (3.80-5.40) m/uL Hgb 8.3 L (11.4-16.0) gm/dL Hct 29.1 L (34.0-46.0) % MCV 106.7 H (80.0-100.0) fL MCHC 28.3 L (31.0-37.0) g/dL RDW 15.8 H (11.5-15.5) % Plt Count 627 H (150-450) k/uL Macrocytosis Marked A ABG pH 7.29 L (7.35-7.45) ABG pCO2 52 H (35-45) mmHg ABG pO2 79 L (83-108) mmHg ABG Total CO2 27 H (19-24) mmol/L Hemoglobin 7.5 L (11.4-16.0) gm/dL Chloride (98-107) mmol/L BUN (7-17) mg/dL Glucose (74-99) mg/dL POC Glucose (mg/dL) 120 H (70-110) mg/dL 11/11/24 Range/Units 11:49 WBC (3.8-10.6) k/uL RBC (3.80-5.40) m/uL Hgb (11.4-16.0) gm/dL Hct (34.0-46.0) % MCV (80.0-100.0) fL MCHC (31.0-37.0) g/dL RDW (11.5-15.5) % Plt Count (150-450) k/uL Macrocytosis ABG pH (7.35-7.45) ABG pCO2 (35-45) mmHg ABG pO2 (83-108) mmHg ABG Total CO2 (19-24) mmol/L Hemoglobin (11.4-16.0) gm/dL Chloride (98-107) mmol/L BUN (7-17) mg/dL Glucose (74-99) mg/dL POC Glucose (mg/dL) 122 H (70-110) mg/dL Microbiology - Last 24 Hours (Table) 11/08/24 10:15 Gram Stain - Final Sputum Sputum Culture - Final Pseudomonas aeruginosa Assessment and Plan (1) Pneumonia Current Visit: Yes Status: Acute Code(s): J18.9 - PNEUMONIA, UNSPECIFIED ORGANISM SNOMED Code(s): 286904545 (2) Abnormal CT scan, chest Current Visit: Yes Status: Acute Code(s): R93.89 - ABNORMAL FINDINGS ON DX IMAGING OF OTH BODY STRUCTURES SNOMED Code(s): 28398453423134575 (3) Leukocytosis Current Visit: No Status: Acute Code(s): D72.829 - ELEVATED WHITE BLOOD CELL COUNT, UNSPECIFIED SNOMED Code(s): 331739376 Plan: 1patient presented to hospital after the patient was found to be unresponsive at home concerning for possible drug overdose also noted to have significant finding on a chest x-ray and the CT concerning for possible pneumonia question of aspiration etiology in this patient has been around the hospital concerning for possible resistant gram-positive as well as gram-negative pathogen, the thoracic or cervical incision currently looks clean without gross cellulitis or any drainage 2-patient white count is slightly up could be related to the steroid, however with initial concern for possible aspiration pneumonitis sputum is growing Pseudomonas we will switch cefepime to Zosyn and see clinical response Dictation was produced using [employer] dictation software. please excuse any grammatical, word or spelling errors. Time with Patient: Less than 30
--- NOTE | 2024-11-11 16:03 | CDI ---
Documentation Clarification Form Date: 11/11/2024 03:32:35 PM From: Darcy Weiss RN CCDS Phone: [phone] Admit Date: 11/06/2024 02:06:00 PM Patient Name: Rosario Weinstein Visit Number: [id number] Discharge Date: ATTENTION: The Clinical Documentation Specialists (CDI) and [facility] Coding Staff appreciate your assistance in clarifying documentation. Please respond to the clarification below the line at the bottom and electronically sign. The CDI & [facility] Coding staff will review the response and follow-up if needed. Please note: Queries are made part of the Legal Health Record. If you have any questions, please contact the author of this message via ITS. Provider: RICKI Garcia Pseudomonas pneumonia healthcare acquired is documented 11/10/2024 Medicine note. For each diagnosis, documentation must be clear to determine if the condition was present at the time of the patients inpatient admission or developed during the hospital stay. Additional clarification regarding the Pseudomonas pneumonia healthcare acquired is requested. History/Risk Factors: 54 year old female presents to the ED via EMS unresponsive. She was intubated in the ED. Recent admission for wound infection with surgery on 10/27. Medical history: Asthma, Heart Failure, COPD, Fibromyalgia, GERD, HTN, [place] and Pneumonia. 11/06, HP. Clinical Indicators: 11/06 1015 VSS: B/P 102/62; HR 128; Temp 98.1F Oral; RR 24; SpO2 99% non rebreather 15 L 11/06 1045 Intubation with mechanical ventilation 11/06 CXR: Bilateral upper lung interstitial opacities concerning for pneumonia vs volume overload 11/07 0415 Sputum Culture: Final 11/09 1117 Pseudomonas aeruginosa Labs: 11/06 Wbc 9; 11/07 Wbc 38.9 Last Admission 10/25 with Surgery 10/27 for open treatment of a T8 fracture, irrigation and excisional debridement of thoracic spine wound measuring 10 x 7 x 4 cm, posterior lateral instrumented fusion of T7-T11 and cement augmentation of T8-T10 vertebral bodies discharge 11/03 Treatment: 11/06 0.9NS 1L IV Bolus x 2; 11/06 Cefepime IVPB x 1; 11/06 Vancomycin IVPB x 1; 11/09 Cefepime IVPB Q12H; 11/07 -11/08 Vancomycin IVPB Q16H; 11/09 -11/11 Cefepime IVPB Q8H; 11/11 Zosyn IVPB Q8H Definition of Present on Admission (POA): A diagnosis present at the time the order for admission to inpatient status was written. Please clarify if the Pseudomonas pneumonia healthcare acquired was POA [ x ] Y = Yes, the condition was present at the time of the order for inpatient admission. [ ] N = No, the condition was not present at the time of the order for inpatient admission. [ ] W = Clinically undetermined if the condition was present at the time of the order for inpatient admission. (Template Last Revised: November 2020) MTDD
--- NOTE | 2024-11-11 16:24 | CDI ---
Documentation Clarification Form Date: 11/11/2024 04:04:57 PM From: Darcy Weiss RN CCDS Phone: [phone] Admit Date: 11/06/2024 02:06:00 PM Patient Name: Rosario Weinstein Visit Number: [id number] Discharge Date: ATTENTION: The Clinical Documentation Specialists (CDI) and [facility] Coding Staff appreciate your assistance in clarifying documentation. Please respond to the clarification below the line at the bottom and electronically sign. The CDI & [facility] Coding staff will review the response and follow-up if needed. Please note: Queries are made part of the Legal Health Record. If you have any questions, please contact the author of this message via ITS. Provider: Nichelle Loya The patient has Sepsis is documented 11/06 11/10 Medicine notes. Based on this information and the findings below, is there an additional diagnosis that is clinically appropriate for this patient? History/Risk Factors: 54 year old female presents to the ED via EMS unresponsive. She was intubated in the ED. Recent admission for wound infection with surgery on 10/27. Medical history: Asthma, Heart Failure, COPD, Fibromyalgia, GERD, HTN, [place] and Pneumonia. 11/06, HP. Clinical Indicators: WBC 11/06 9.0 WBC 11/07 38.9 Lactic acid: 11/06 3.0 Blood cultures: 11/06 Final 11/10 No growth after 72 hours Sputum culture: 11/07 Final 11/09 Pseudomonas aeruginosa 11/06 1015 VSS: B/P 102/62; HR 128; Temp 98.1F Oral; RR 24; SpO2 99% non- rebreather 15 L 11/06 1045 Intubation with mechanical ventilation Treatment: 11/08 - 11/10 Norepinephrine IV ID Consult: 11/[address] Scan chest, possible pneumonia. Antibiotics: 11/06 Cefepime IVPB x 1; 11/06 Vancomycin IVPB x 1; 11/09 Cefepime IVPB Q12H; 11/07 -11/08 Vancomycin IVPB Q16H; 11/09 -11/11 Cefepime IVPB Q8H; 11/11 Zosyn IVPB Q8H IV Bolus: 11/06 0.9NS 1L IV Bolus x 2 Is there an additional diagnosis that is clinically appropriate for this patient? [x ] Septic Shock [ ] No additional diagnosis/not clinically significant [ ] Other, please specify [ ] Unable to determine SIRS Criteria: 2 or more of the following may indicate SIRS Temperature < 96.8F (36C) or > 101.0F (38.3C) Heart Rate > 90 bpm Respiratory Rate > 20 breaths/min or PaCO2 < 32 mmHg White Blood Cell Count > 12,000 or < 4,000 cells/mm3 or > 10% bands (Template Last Reviewed: September 2022) LEONIDD
[2024-11-11] MEDS: PIPERACILLIN-TAZOBACTAM 3.375 GM in SODIUM CHLORIDE 0.9% 100 ML IVPB SCH (17:10)
[2024-11-11 17:28] LABS: Glucose,Whole Blood 130 mg/dL (70-110)
[2024-11-11] MEDS: NON FORMULARY DRUG (Brivaracetam [Briviact] 100 MG Tablet) PO SCH (20:06)
[2024-11-11] MEDS: MONTELUKAST 10 MG TAB PO SCH (20:09)
[2024-11-11] MEDS: CLOBAZAM 10 MG PO SCH (20:09)
[2024-11-11] MEDS: ASENAPINE 5 MG TAB SUBLINGUAL SCH (21:38)
[2024-11-11] MEDS: busPIRone HCl 5 MG TAB PO SCH (21:38)
[2024-11-11] MEDS: PRAZOSIN 1 MG CAP PO SCH (21:38)
[2024-11-11 23:21] LABS: Glucose,Whole Blood 124 mg/dL (70-110)
[2024-11-12 05:08] LABS: Glucose,Whole Blood 135 mg/dL (70-110)
[2024-11-12] MEDS: LEVOTHYROXINE 88 MCG TAB PO SCH (06:16)
[2024-11-12 06:45] LABS: Basophils % (A) 0 %; Eosinophils % (A) 0 %; HCT 26.9 % (34.0-46.0); HGB 7.5 gm/dL (11.4-16.0); Hypochromasia Marked; Lymphocytes % (A) 7 %; MCH 29.7 pg (25.0-35.0); MCV 106.3 fL (80.0-100.0); Macrocytosis Moderate; Mean Platelet Volume 7.7; Monocytes # (A) 0.5 k/uL (0-1.0); Monocytes % (A) 3 %; Neutrophils # (A) 12.9 k/uL (1.3-7.7); Neutrophils % (A) 88 %; Platelet Count 598 k/uL (150-450); RBC 2.53 m/uL (3.80-5.40); WBC 14.6 k/uL (3.8-10.6)
--- NOTE | 2024-11-12 06:45 | XR ---
EXAMINATION TYPE: XR chest 1V DATE OF EXAM: 11/12/2024 COMPARISON: 11/25/2022 CLINICAL INDICATION: Female, 54 years old with history of vent; TECHNIQUE: Single frontal view of the chest is obtained. FINDINGS: There are extensive postsurgical changes of the dorsal spine with pedicle screws in rods which obscur es the midline. The tip of the ET tube cannot be determined. There appears to be an NG tube in the re gion of the GE junction. There is diffuse pulmonary vascular congestion in mild to moderate pulmonary edema. No pneumothorax or pleural effusion. The heart size is normal. IMPRESSION: 1. Acute cardiopulmonary disease as described above. 2. Extensive postsurgical changes with pedicle screws and interconnecting rods for spinal stabilizati on. 3. ET tube position cannot be identified with certainty. There appears to be an NG tube in the region of the GE junction. [facility], Workstation: CODIE 11/12/2024 6:43 AM
[2024-11-12 07:04] LABS: African American GFR (CKD) >90 (>60 ml/min/1.73 sqM); Anion Gap 5 mmol/L; Blood Urea Nitrogen 26 mg/dL (7-17); Calcium 8.7 mg/dL (8.4-10.2); Carbon Dioxide 25 mmol/L (22-30); Chloride 116 mmol/L (98-107); Glucose 131 mg/dL (74-99); Non-African American GFR(CKD) 89 (>60 ml/min/1.73 sqM); Potassium 3.8 mmol/L (3.5-5.1); Sodium 146 mmol/L (137-145)
[2024-11-12 08:49] LABS: ABG Base Excess -0.9 mmol/L; ABG HCO3 26 mmol/L (21-25); ABG Oxygen Saturation 96.8 % (94-97); ABG PCO2 54 mmHg (35-45); ABG PH 7.29 (7.35-7.45); ABG PO2 89 mmHg (83-108); ABG TCO2 28 mmol/L (19-24); Allen Test Performed? Yes
[2024-11-12] MEDS: POTASSIUM BICARBONATE/CIT AC 20 MEQ TABLET.EFF NG-TUBE SCH (09:01)
[2024-11-12] MEDS: CHOLECALCIFEROL 25 MCG (1000 IU) TABLET PO SCH (09:03)
[2024-11-12] MEDS: CISATRACURIUM 2 MG/ML 5 ML VIAL IV ONE (10:46)
--- NOTE | 2024-11-12 11:20 | P.PN ---
Subjective Progress Note Date: 11/12/24 This is a 54-year-old female patient with a known history of COPD, hypertension, hyperlipidemia, coronary disease, congestive heart failure, DVT, hypothyroidism, seizure disorder, multiple previous back surgeries. She had most recently undergone a C2-T7 posterior lateral fusion on 09/09/2024. She developed a significant infection and wound dehiscence and was back here in the hospital and had undergone irrigation and excisional debridement of a thoracic spine wound on 10/27/2024 and discharged to home on 11/02/2024. She was brought back here to the emergency room earlier this morning after being found obtunded and unresponsive by her . She was intubated here in the emergency department. Chest x- ray revealed bilateral upper interstitial opacities concerning for pneumonia versus fluid volume overload. Evidence of COPD. Endotracheal tube and nasogastric tubes in position. CT scan of the brain revealed no acute intracranial process. CT angiogram ruled out pulmonary embolism. There is bilateral upper lobe reticular opacities with right greater than left raising concerns for infection. Few foci of gas identified within the left supraclavicular region and left anterior chest wall possibly with venous vasculature. CT scan of the thoracic spine reveals extensive postsurgical changes. No gross evidence of complication. White count 9.0. Hemoglobin 10.6. Platelets 800,000. INR 0.9. Sodium 144. Potassium 4.0. Bicarb 27. BUN 16. Creatinine 0.96. Glucose 111. Lactic acid 3.0. AST 86. ALT 39. Troponin 0.044. Urinalysis clean. Drug urine screen is positive for opiates, barbiturates, antidepressants, benzodiazepines and marijuana. Initial arterial blood gases on 100% FiO2 revealed a PaO2 of 34, pCO2 89 and a pH of 7.07. Follow-up blood gases on the mechanical ventilator on 100% revealed a PaO2 greater than 420, pCO2 61 and a pH of 7.20. Her current vent settings are assist-control mode at a rate of 26, tidal volume 320 and FiO2 50% and a PEEP of 5. She is sedated on propofol at 50 mcg/kg/h. She has been initiated on vancomycin and cefepime. Received Narcan without improvement initially. She received 2 L of fluid resuscitation. 11/07/2024: Patient is a 54 year old female who was admmited to the ICU on 11/06/2024 with acute hypoxic respiratory failure. She arrived to ED unresponsive. Initially thought it was narcotic overdose. Did not improve with narcan. Ultimately intubated and mechanically ventillated on 11/06 . Patient tested positive for opiates, barbiturates, tricyclic's, benzodiazepines, and marijuana. Her underlying problems include COPD, hypertension, hyperlipidemia, coronary disease, congestive heart failure, DVT, hypothyroidism, seizure disorder, multiple previous back surgeries, T2 vertebral fracture with revision of C2-T7 posterior lateral fusion on 09/09/2024 patient developed surgical wound infection and dehiscence of wound. Patient was seen today 11/07/2024. Remains intubated and mechanically ventillated on assist controlled at a rate of 30, tidal volume 320, FiO2 50%, PEEP of 5. ABG: pH 7.17/pCO2 66 /pO2 70. Currently on propofol 50 mcg/kg/min and normal saline 0.9% at 125 cc/hr. No acute events overnight. Repeat CXR showing bilateral pleural and interstitial opacities. Labs WBC 38.9 Hgb 8.2, platelets 659, CO2 21, anion gap 11, BUN 16, creatinine 0.96 CRP 26.5. Patient currently on IV vancomycin dosed by pharmacy and cefepime 2 g IVPB every 12 hours. Blood cultures are pending. MRSA/MSSA screening pending. Currently not on any tube feeding. The patient is seen on 11/08/2024 in room 262. She remains on volume assist- control, rate 30, tidal volume 320, FiO2 40%, PEEP of 5. Most recent blood gases show pO2 of 110, pCO2 of 56, pH is 7.24. The patient is on propofol at 50 mcg/kg/min, saline at 125 cc an hour which we will decrease to 75cc an hour d/t suspected dillutional anemia, and vancomycin and cefepime. Tube feedings vital HP 40 cc/hr which is goal. Blood cultures showing no growth. Left brachial ART line was placed last night. All labs, x-rays, and medications are reviewed. CXR showing bilateral interstitial opacities. White count 18.7, hemoglobin 7.0, platelet count 505,000. BUN was 19, creatinine was 0.85. We will continue to follow make recommendations along the way. All labs, x-rays, and medications a re reviewed. The patient has a history of underlying COPD, hypertension, hyperlipidemia, coronary disease, heart failure, DVT, hypothyroidism, seizure disorder, and multiple surgical procedures on her cervical and thoracic spine. Prognosis is guarded. The patient is seen on 11/09/2024 in room 262. She remains on volume assist- control, rate 30, tidal volume 320, FiO2 40%, PEEP of 5. Most recent blood gases show pO2 of 89, pCO2 of 56, pH is 7.24. The patient is on propofol at 20 mcg/kg/min, saline at 75cc. Remains on vancomycin and cefepime. Yesterday was placed IV solumedrol 40 mg q8hr, but will increase to 60 mg q6hr. Tube feedings vital HP 40 cc/hr which is goal. Blood cultures showing no growth. Sputum cultures showing pseudomonas. MRSA/MSSA nares negative. Yesterday she did not tolerate being off sedation. Only lasted for 20 minutes due to her peak pressuing and being tachypnic. She was given dilaudid yesterday which caused her to be hypotensive so she was subsequently put on levofed but has since been off it since 530a. All labs, x-rays, and medications are reviewed. CXR still showing bilateral interstitial opacities likely from atypical pneumonia. White count 17.9, hemoglobin 8.1, platelet count 572,000. BUN was 23, creatinine was 0.67. AST 35, ALT 58. We will continue to follow make recommendations along the way. All labs, x-rays, and medications are reviewed. The patient has a history of underlying COPD, hypertension, hyperlipidemia, coronary disease, heart failure, DVT, hypothyroidism, seizure disorder, and multiple surgical procedures on her cervical and thoracic spine. Prognosis is guarded. The patient is seen on 11/10/2024 in room 262. She remains on volume assist- control, rate 30, tidal volume 320, FiO2 40%, PEEP of 5. Most recent blood gases show pO2 of 78, pCO2 of 52, pH is 7.29. The patient is on propofol at 50 mcg/kg/min, saline at 75cc/hr. Remains on vancomycin and cefepime. Remains on IV solumedrol 60 mg q6hr. Tube feedings vital HP 20 cc/hr with a goal of 40. Yesterday she did not tolerate being off sedation. She was following some commands, but became agitated and hypertensive. All labs, x-rays, and medications are reviewed. CXR still showing bilateral interstitial opacities likely from atypical pneumonia. White count 18.2, hemoglobin 8.6, platelet count 625,000. BUN was 26, creatinine was 0.73. We will continue to follow make recommendations along the way. All labs, x-rays, and medications are reviewed. The patient has a history of underlying COPD, hypertension, hyperlipidemia, coronary disease, heart failure, DVT, hypothyroidism, seizure disorder, and multiple surgical procedures on her cervical and thoracic spine. Will attempt to wean off sedation today. May end up being a candidate for trach and PEG. Prognosis is guarded. The patient is seen on 11/12/2024 in room 262. She remains on volume assist- control, rate 30, tidal volume 320, FiO2 40%, PEEP of 5. Most recent blood gases show pO2 of 89, pCO2 of 54, pH is 7.29. The patient had a large difference in her peak and plateau pressure, suggesting increased airways re sistance. Airway resistance calculation was 17 cm H20/L/sec. Dynamic compliance 11.8 mL/cm of H20. Static compliance 27 mL/cm H20. The patient is on propofol at 50 mcg/kg/min, saline at 70cc/hr. Sputum cultures showing pseudomonas. Cefepime was switched to Zosyn. Remains on IV solumedrol 60 mg q6hr. Tube feedings vital HP 30 cc/hr with a goal of 45. Yesterday she did not tolerate being off sedation. She became agitated and hypertensive. She has been on ventillator since 11/06. All labs, x-rays, and medications are reviewed. CXR showing diffuse pulmonary vascular congestation. White count 14.6, hemoglobin 7.5, platelet count 598,000. BUN was 26, creatinine was 0.77. We will continue to follow make recommendations along the way. All labs, x-rays, and medications are reviewed. The patient has a history of underlying COPD, hypertension, hyperlipidemia, coronary disease, heart failure, DVT, hypothyroidism, seizure disorder, and multiple surgical procedures on her cervical and thoracic spine. Will attempt to wean off sedation today. May end up being a candidate for trach and PEG. Prognosis is guarded. Objective - Vital Signs Vital signs: Vital Signs Temp 99.1 F 11/12/24 04:00 Pulse 95 11/12/24 07:00 Resp 30 H 11/12/24 07:00 BP 124/74 11/12/24 07:00 Pulse Ox 99 11/12/24 07:00 FiO2 40 11/12/24 04:00 Intake & Output 11/11/24 11/12/24 11/12/24 18:59 06:59 18:59 Intake Total 2786.141 9522.298 Output Total 820 1200 Balance 612.665 343.298 Weight 56.1 kg 57.6 kg Intake: IV 810 975 Sodium Chloride 0.9% 1, 810 975 000 ml @ 75 mls/hr IV . [id number] VIVI Rx#:[id number] Intake, IV Titration 182.665 178.298 Amount Cefepime 2 gm In Sodium 100 Chloride 0.9% 100 ml @ 25 mls/hr IVPB Q8HR [facility] Rx# :[id number] propofoL 1,000 mg In 82.665 178.298 Empty Bag 1 bag @ 15 MCG/ KG/MIN 4.291 mls/hr IV . [id number] [facility]IVI Rx#:[id number] Tube Feeding 310 390 Other 130 Output: Urine 820 1200 Other: Voiding Method Indwelling Catheter Indwelling Catheter ABP, PAP, CO, CI - Last Documented Arterial Blood Pressure 112/84 - Labs CBC & Chem 7: 11/12/24 05:37 11/12/24 05:37 Labs: Abnormal Lab Results - Last 24 Hours (Table) 11/11/24 11/11/24 11/11/24 Range/Units 11:49 17:26 23:20 WBC (3.8-10.6) k/uL RBC (3.80-5.40) m/uL Hgb (11.4-16.0) gm/dL Hct (34.0-46.0) % MCV (80.0-100.0) fL MCHC (31.0-37.0) g/dL RDW (11.5-15.5) % Plt Count (150-450) k/uL Neutrophils # (1.3-7.7) k/uL Sodium (137-145) mmol/L Chloride (98-107) mmol/L BUN (7-17) mg/dL Glucose (74-99) mg/dL POC Glucose (mg/dL) 122 H 130 H 124 H (70-110) mg/dL 11/12/24 11/12/24 11/12/24 Range/Units 05:06 05:37 05:37 WBC 14.6 H (3.8-10.6) k/uL RBC 2.53 L (3.80-5.40) m/uL Hgb 7.5 L (11.4-16.0) gm/dL Hct 26.9 L (34.0-46.0) % MCV 106.3 H (80.0-100.0) fL MCHC 28.0 L (31.0-37.0) g/dL RDW 16.0 H (11.5-15.5) % Plt Count 598 H (150-450) k/uL Neutrophils # 12.9 H (1.3-7.7) k/uL Sodium 146 H (137-145) mmol/L Chloride 116 H (98-107) mmol/L BUN 26 H (7-17) mg/dL Glucose 131 H (74-99) mg/dL POC Glucose (mg/dL) 135 H (70-110) mg/dL Microbiology - Last 24 Hours (Table) 11/06/24 12:36 Blood Culture - Final Blood Assessment and Plan Assessment: Altered mental status, obtunded requiring intubation and mechanical ventilatory support. Suspect secondary to narcotics. Urine drug screen positive for opiates, barbiturates, tricyclic antidepressants, benzodiazepines and marijuana Acute hypoxemic and hypercapnic respiratory failure secondary to above Discharge from the hospital following surgery on 10/27/2024 for open treatment of a T8 fracture, irrigation and excisional debridement of thoracic spine wound measuring 10 x 7 x 4 cm, posterior lateral instrumented fusion of T7-T11 and cement augmentation of T8-T10 vertebral bodies. Chronic obstructive pulmonary disease/asthma, currently inactive and stable T2 vertebral fracture with revision of C2-T7 posterior lateral fusion on 09/09/2024 Surgical site infection and wound dehiscence, wound and blood cultures revealed no growth Acute leukocytosis, improved Macrocytic anemia Rectal prolapse with bleeding History of hypertension History of hyperlipidemia History of coronary artery disease History of heart failure with preserved ejection fraction History of gastroesophageal reflux disease History of seizure disorder History of hypothyroidism History of anxiety/depression/PTSD Plan: The patient was seen and evaluated Imaging, labs and medications reviewed Currently intubated on the mechanical ventilator ABGs reviewed, appropriate vent changes made Continue Zoysn per ID Continue vital HP Blood cultures showing no growth so far, sputum culture showing pseudomonas MRSA/MSSA screening negative Continue IV solumedrol 60 mg q6hr Attempt to wean off sedation today, likely candidate for trach and PEG ART line and central line placed today Will continue to follow in intensive care unit We will continue to follow and make further recommendations based on her clinical status
--- NOTE | 2024-11-12 11:30 | XR ---
EXAMINATION TYPE: XR chest 1V portable DATE OF EXAM: 11/12/2024 COMPARISON: 11/11/2024 CLINICAL INDICATION: Female, 54 years old with history of central line placement; TECHNIQUE: Single frontal view of the chest is obtained. FINDINGS: There is been interval placement of a central venous catheter tip which is in the SVC/RA junction. No pneumothorax. There is no change in the diffuse interstitial process. The heart size is normal. There is an NG tube within the stomach. ET tube cannot be identified with certainty secondary to the extensive posterior metallic stabilization of the entire visualized dorsal spine. IMPRESSION: 1. Central venous catheter tip in SVC/RA junction. No pneumothorax. 2. No change in the diffuse interstitial process. [facility], , 11/12/2024 11:28 AM
[2024-11-12 11:48] LABS: Glucose,Whole Blood 151 mg/dL (70-110)
--- NOTE | 2024-11-12 13:02 | PCN ---
PROCEDURE NOTE PROCEDURE: Right brachial arterial line. PREOPERATIVE DIAGNOSIS: Frequent blood draws and blood gas monitoring. POSTOPERATIVE DIAGNOSIS: Frequent blood draws and blood gas monitoring. OPERATORS: Dr. Rivera, Dr. Edmonds, and Dr. Salamanca. We used a right brachial artery. There was good blood return and waveform. The catheter was sutured in place. Sterile dressing was applied by the nurse. There was no immediate complication. The patient tolerated the procedure well. There was informed consent and universal timeout. The patient's procedure was done in room 262. MMODL / IJN: [id number] /
--- NOTE | 2024-11-12 13:08 | PCN ---
PROCEDURE NOTE PROCEDURE: Left subclavian triple-lumen catheter. PREOPERATIVE DIAGNOSIS: Administration of fluids and pressors. POSTOPERATIVE DIAGNOSIS: Administration of fluids and pressors. OPERATORS: Dr. Rivera, Dr. Salamanca, and Dr. Edmonds. TRIPLE LUMEN CATHETER PLACEMENT: Indication: Hemodynamic monitoring/Intravenous access. A time-out was completed verifying correct patient, procedure, site, positioning, and implant(s) or special equipment if applicable. The patient was placed in a dependent position appropriate for triple lumen catheter placement based on the vein to be cannulated. The patient's left shoulder or left neck or left groin was prepped and draped in sterile fashion. 1% Lidocaine was used to anesthetize the surrounding skin area. A triple lumen 9F Cordis catheter was introduced into the left subclavian vein using Seldinger technique. The catheter was threaded smoothly over the guide wire and appropriate blood return was obtained. Each lumen of the catheter was evacuated of air and flushed with sterile saline. The catheter was then sutured in place to the skin and a sterile dressing applied. Perfusion to the extremity distal to the point of catheter insertion was checked and found to be adequate. There was informed consent and universal timeout. The patient's procedure took place in room 262. We used the left subclavian vein. There was no immediate complication. There was good blood return from all 3 ports. The patient tolerated the procedure well. The catheter was sutured in place. Sterile dressing was applied by the nurse. The tip of the catheter was seen in the junction of superior vena cava and right atrium. A chest x-ray was ordered. MMODL / IJN: [id number] /
--- NOTE | 2024-11-12 14:42 | P.PN ---
Subjective Progress Note Date: 11/12/24 Principal diagnosis: Reason for follow-up is pneumonia Patient is a 54-year-old female with a past medical history significant for COPD DVT hypertension hyperlipidemia who recently did have a cervical thoracic spine surgery revision for a nonhealing wound to the mid/upper back area patient cultures were negative has been brought to the hospital on the patient was found to be unresponsive requiring elevation and admission to the ICU On today's evaluation that is 11/12/2024, patient did not have any fever and remains to be debated on the wait FiO2 currently at 40% no significant purulent secretion through the ET or any changes reported by the nursing staff. Patient white count is down to 14.6 creatinine is 0.77 sputum with Pseudomonas Objective - Vital Signs Vital signs: Vital Signs Temp 98.7 F 11/12/24 12:00 Pulse 86 11/12/24 13:00 Resp 30 H 11/12/24 13:00 BP 137/81 11/12/24 11:00 Pulse Ox 100 11/12/24 13:00 FiO2 40 11/12/24 13:00 Intake & Output 11/11/24 11/12/24 11/12/24 18:59 06:59 18:59 Intake Total 7577.216 6118.298 695 Output Total 820 1200 610 Balance 612.665 343.298 85 Weight 56.1 kg 57.6 kg Intake: IV 810 975 485 0.9 @ KVO 10 Piperacillin-Tazobactam 3 100 .375 gm In Sodium Chloride 0.9% 100 ml @ 25 mls/hr IVPB Q8HR [facility] Rx# :[id number] Sodium Chloride 0.9% 1, 810 975 375 000 ml @ 75 mls/hr IV . [id number] [facility]I Rx#:[id number] Intake, IV Titration 182.665 178.298 Amount Cefepime 2 gm In Sodium 100 Chloride 0.9% 100 ml @ 25 mls/hr IVPB Q8HR [facility] Rx# :[id number] propofoL 1,000 mg In 82.665 178.298 Empty Bag 1 bag @ 15 MCG/ KG/MIN 4.291 mls/hr IV . [id number] [facility]I Rx#:[id number] Tube Feeding 310 390 150 Other 130 60 Output: Urine 820 1200 610 Other: Voiding Method Indwelling Catheter Indwelling Catheter Indwelling Catheter ABP, PAP, CO, CI - Last Documented Arterial Blood Pressure 134/68 - Exam GENERAL DESCRIPTION: Middle-age female intubated on the vent RESPIRATORY SYSTEM: Unlabored breathing , decreased breath sounds at bases HEART: S1 S2 regular rate and rhythm , ABDOMEN: Soft , no tenderness EXTREMITIES: No edema feet - Labs CBC & Chem 7: 11/12/24 05:37 11/12/24 05:37 Labs: Abnormal Lab Results - Last 24 Hours (Table) 11/11/24 11/11/24 11/12/24 Range/Units 17:26 23:20 05:06 WBC (3.8-10.6) k/uL RBC (3.80-5.40) m/uL Hgb (11.4-16.0) gm/dL Hct (34.0-46.0) % MCV (80.0-100.0) fL MCHC (31.0-37.0) g/dL RDW (11.5-15.5) % Plt Count (150-450) k/uL Neutrophils # (1.3-7.7) k/uL ABG pH (7.35-7.45) ABG pCO2 (35-45) mmHg ABG HCO3 (21-25) mmol/L ABG Total CO2 (19-24) mmol/L Hemoglobin (11.4-16.0) gm/dL Sodium (137-145) mmol/L Chloride (98-107) mmol/L BUN (7-17) mg/dL Glucose (74-99) mg/dL POC Glucose (mg/dL) 130 H 124 H 135 H (70-110) mg/dL 11/12/24 11/12/24 11/12/24 Range/Units 05:37 05:37 08:44 WBC 14.6 H (3.8-10.6) k/uL RBC 2.53 L (3.80-5.40) m/uL Hgb 7.5 L (11.4-16.0) gm/dL Hct 26.9 L (34.0-46.0) % MCV 106.3 H (80.0-100.0) fL MCHC 28.0 L (31.0-37.0) g/dL RDW 16.0 H (11.5-15.5) % Plt Count 598 H (150-450) k/uL Neutrophils # 12.9 H (1.3-7.7) k/uL ABG pH 7.29 L (7.35-7.45) ABG pCO2 54 H (35-45) mmHg ABG HCO3 26 H (21-25) mmol/L ABG Total CO2 28 H (19-24) mmol/L Hemoglobin 7.6 L (11.4-16.0) gm/dL Sodium 146 H (137-145) mmol/L Chloride 116 H (98-107) mmol/L BUN 26 H (7-17) mg/dL Glucose 131 H (74-99) mg/dL POC Glucose (mg/dL) (70-110) mg/dL 11/12/24 Range/Units 11:45 WBC (3.8-10.6) k/uL RBC (3.80-5.40) m/uL Hgb (11.4-16.0) gm/dL Hct (34.0-46.0) % MCV (80.0-100.0) fL MCHC (31.0-37.0) g/dL RDW (11.5-15.5) % Plt Count (150-450) k/uL Neutrophils # (1.3-7.7) k/uL ABG pH (7.35-7.45) ABG pCO2 (35-45) mmHg ABG HCO3 (21-25) mmol/L ABG Total CO2 (19-24) mmol/L Hemoglobin (11.4-16.0) gm/dL Sodium (137-145) mmol/L Chloride (98-107) mmol/L BUN (7-17) mg/dL Glucose (74-99) mg/dL POC Glucose (mg/dL) 151 H (70-110) mg/dL Microbiology - Last 24 Hours (Table) 11/06/24 12:36 Blood Culture - Final Blood Assessment and Plan (1) Pneumonia Current Visit: Yes Status: Acute Code(s): J18.9 - PNEUMONIA, UNSPECIFIED ORGANISM SNOMED Code(s): 564996531 (2) Abnormal CT scan, chest Current Visit: Yes Status: Acute Code(s): R93.89 - ABNORMAL FINDINGS ON DX IMAGING OF OTH BODY STRUCTURES SNOMED Code(s): 26877230472249398 (3) Leukocytosis Current Visit: No Status: Acute Code(s): D72.829 - ELEVATED WHITE BLOOD CELL COUNT, UNSPECIFIED SNOMED Code(s): 591113194 Plan: 1patient presented to hospital after the patient was found to be unresponsive at home concerning for possible drug overdose also noted to have significant finding on a chest x-ray and the CT concerning for possible pneumonia question of aspiration etiology in this patient has been around the hospital concerning for possible resistant gram-positive as well as gram-negative pathogen, the thoracic or cervical incision currently looks clean without gross cellulitis or any drainage 2-patient white count is trending down with adjustment of antibiotics to Zosyn to continue and monitor clinical course closely Dictation was produced using Pant[employer] dictation software. please excuse any grammatical, word or spelling errors. Time with Patient: Less than 30
[2024-11-12 17:35] LABS: Glucose,Whole Blood 152 mg/dL (70-110)
[2024-11-12 23:13] LABS: Glucose,Whole Blood 135 mg/dL (70-110)
[2024-11-13 05:20] LABS: HCT 23.5 % (34.0-46.0); Hypochromasia Marked; MCH 30.4 pg (25.0-35.0); MCHC 29.1 g/dL (31.0-37.0); MCV 104.5 fL (80.0-100.0); Macrocytosis Moderate; Mean Platelet Volume 7.6; Platelet Count 584 k/uL (150-450); RBC 2.25 m/uL (3.80-5.40); RDW 15.6 % (11.5-15.5); WBC 14.2 k/uL (3.8-10.6)
[2024-11-13 05:44] LABS: Glucose,Whole Blood 134 mg/dL (70-110)
[2024-11-13 05:51] LABS: African American GFR (CKD) >90 (>60 ml/min/1.73 sqM); Anion Gap 2 mmol/L; Blood Urea Nitrogen 24 mg/dL (7-17); Calcium 8.4 mg/dL (8.4-10.2); Carbon Dioxide 28 mmol/L (22-30); Chloride 116 mmol/L (98-107); Glucose 124 mg/dL (74-99); Non-African American GFR(CKD) >90 (>60 ml/min/1.73 sqM); Potassium 3.6 mmol/L (3.5-5.1); Sodium 146 mmol/L (137-145)
[2024-11-13 05:52] LABS: HGB 6.8 gm/dL (11.4-16.0)
[2024-11-13 06:15] LABS: ABG Base Excess 0.2 mmol/L; ABG HCO3 27 mmol/L (21-25); ABG Oxygen Saturation 95.7 % (94-97); ABG PCO2 53 mmHg (35-45); ABG PH 7.31 (7.35-7.45); ABG PO2 76 mmHg (83-108); ABG TCO2 28 mmol/L (19-24); Allen Test Performed? Yes
--- NOTE | 2024-11-13 07:04 | XR ---
EXAMINATION TYPE: XR chest 1V portable DATE OF EXAM: 11/13/2024 COMPARISON: 11/12/2024 CLINICAL INDICATION: Female, 54 years old with history of intubated; TECHNIQUE: Single frontal view of the chest is obtained. FINDINGS: The left central venous catheter tip is in the SVC/RA junction, unchanged in position. There is extensive metal stabilization of the dorsal spine which obscures the midline. The position o f the ET tube appears to be above the sergo but the distance above the sergo cannot be determined w ith certainty due to the stabilization pedicle screws and rods in the dorsal spine There is an NG tube within the stomach. There is diffuse fine interstitial prominence which is likely chronic in nature. There is no airspace consolidation. No pleural effusion or pneumothorax. The heart size is normal. IMPRESSION: 1. Cannot determine the position of the ET tube with certainty due to the spinal stabilization. 2. No change in the diffuse interstitial process which is possibly chronic in nature. 3. No airspace consolidation, pleural effusion or pneumothorax. [facility], Workstation: [email or web address] 11/13/2024 7:01 AM
[2024-11-13] MEDS: ACETAMINOPHEN TAB 500 MG TAB PO PRN (08:11)
[2024-11-13 11:36] LABS: Glucose,Whole Blood 136 mg/dL (70-110)
--- NOTE | 2024-11-13 12:46 | P.PN ---
Subjective Progress Note Date: 11/13/24 This is a 54-year-old female patient with a known history of COPD, hypertension, hyperlipidemia, coronary disease, congestive heart failure, DVT, hypothyroidism, seizure disorder, multiple previous back surgeries. She had most recently undergone a C2-T7 posterior lateral fusion on 09/09/2024. She developed a significant infection and wound dehiscence and was back here in the hospital and had undergone irrigation and excisional debridement of a thoracic spine wound on 10/27/2024 and discharged to home on 11/02/2024. She was brought back here to the emergency room earlier this morning after being found obtunded and unresponsive by her . She was intubated here in the emergency department. Chest x- ray revealed bilateral upper interstitial opacities concerning for pneumonia versus fluid volume overload. Evidence of COPD. Endotracheal tube and nasogastric tubes in position. CT scan of the brain revealed no acute intracranial process. CT angiogram ruled out pulmonary embolism. There is bilateral upper lobe reticular opacities with right greater than left raising concerns for infection. Few foci of gas identified within the left supraclavicular region and left anterior chest wall possibly with venous vasculature. CT scan of the thoracic spine reveals extensive postsurgical changes. No gross evidence of complication. White count 9.0. Hemoglobin 10.6. Platelets 800,000. INR 0.9. Sodium 144. Potassium 4.0. Bicarb 27. BUN 16. Creatinine 0.96. Glucose 111. Lactic acid 3.0. AST 86. ALT 39. Troponin 0.044. Urinalysis clean. Drug urine screen is positive for opiates, barbiturates, antidepressants, benzodiazepines and marijuana. Initial arterial blood gases on 100% FiO2 revealed a PaO2 of 34, pCO2 89 and a pH of 7.07. Follow-up blood gases on the mechanical ventilator on 100% revealed a PaO2 greater than 420, pCO2 61 and a pH of 7.20. Her current vent settings are assist-control mode at a rate of 26, tidal volume 320 and FiO2 50% and a PEEP of 5. She is sedated on propofol at 50 mcg/kg/h. She has been initiated on vancomycin and cefepime. Received Narcan without improvement initially. She received 2 L of fluid resuscitation. 11/07/2024: Patient is a 54 year old female who was admmited to the ICU on 11/06/2024 with acute hypoxic respiratory failure. She arrived to ED unresponsive. Initially thought it was narcotic overdose. Did not improve with narcan. Ultimately intubated and mechanically ventillated on 11/06 . Patient tested positive for opiates, barbiturates, tricyclic's, benzodiazepines, and marijuana. Her underlying problems include COPD, hypertension, hyperlipidemia, coronary disease, congestive heart failure, DVT, hypothyroidism, seizure disorder, multiple previous back surgeries, T2 vertebral fracture with revision of C2-T7 posterior lateral fusion on 09/09/2024 patient developed surgical wound infection and dehiscence of wound. Patient was seen today 11/07/2024. Remains intubated and mechanically ventillated on assist controlled at a rate of 30, tidal volume 320, FiO2 50%, PEEP of 5. ABG: pH 7.17/pCO2 66 /pO2 70. Currently on propofol 50 mcg/kg/min and normal saline 0.9% at 125 cc/hr. No acute events overnight. Repeat CXR showing bilateral pleural and interstitial opacities. Labs WBC 38.9 Hgb 8.2, platelets 659, CO2 21, anion gap 11, BUN 16, creatinine 0.96 CRP 26.5. Patient currently on IV vancomycin dosed by pharmacy and cefepime 2 g IVPB every 12 hours. Blood cultures are pending. MRSA/MSSA screening pending. Currently not on any tube feeding. The patient is seen on 11/08/2024 in room 262. She remains on volume assist- control, rate 30, tidal volume 320, FiO2 40%, PEEP of 5. Most recent blood gases show pO2 of 110, pCO2 of 56, pH is 7.24. The patient is on propofol at 50 mcg/kg/min, saline at 125 cc an hour which we will decrease to 75cc an hour d/t suspected dillutional anemia, and vancomycin and cefepime. Tube feedings vital HP 40 cc/hr which is goal. Blood cultures showing no growth. Left brachial ART line was placed last night. All labs, x-rays, and medications are reviewed. CXR showing bilateral interstitial opacities. White count 18.7, hemoglobin 7.0, platelet count 505,000. BUN was 19, creatinine was 0.85. We will continue to follow make recommendations along the way. All labs, x-rays, and medications a re reviewed. The patient has a history of underlying COPD, hypertension, hyperlipidemia, coronary disease, heart failure, DVT, hypothyroidism, seizure disorder, and multiple surgical procedures on her cervical and thoracic spine. Prognosis is guarded. The patient is seen on 11/09/2024 in room 262. She remains on volume assist- control, rate 30, tidal volume 320, FiO2 40%, PEEP of 5. Most recent blood gases show pO2 of 89, pCO2 of 56, pH is 7.24. The patient is on propofol at 20 mcg/kg/min, saline at 75cc. Remains on vancomycin and cefepime. Yesterday was placed IV solumedrol 40 mg q8hr, but will increase to 60 mg q6hr. Tube feedings vital HP 40 cc/hr which is goal. Blood cultures showing no growth. Sputum cultures showing pseudomonas. MRSA/MSSA nares negative. Yesterday she did not tolerate being off sedation. Only lasted for 20 minutes due to her peak pressuing and being tachypnic. She was given dilaudid yesterday which caused her to be hypotensive so she was subsequently put on levofed but has since been off it since 530a. All labs, x-rays, and medications are reviewed. CXR still showing bilateral interstitial opacities likely from atypical pneumonia. White count 17.9, hemoglobin 8.1, platelet count 572,000. BUN was 23, creatinine was 0.67. AST 35, ALT 58. We will continue to follow make recommendations along the way. All labs, x-rays, and medications are reviewed. The patient has a history of underlying COPD, hypertension, hyperlipidemia, coronary disease, heart failure, DVT, hypothyroidism, seizure disorder, and multiple surgical procedures on her cervical and thoracic spine. Prognosis is guarded. The patient is seen on 11/10/2024 in room 262. She remains on volume assist- control, rate 30, tidal volume 320, FiO2 40%, PEEP of 5. Most recent blood gases show pO2 of 78, pCO2 of 52, pH is 7.29. The patient is on propofol at 50 mcg/kg/min, saline at 75cc/hr. Remains on vancomycin and cefepime. Remains on IV solumedrol 60 mg q6hr. Tube feedings vital HP 20 cc/hr with a goal of 40. Yesterday she did not tolerate being off sedation. She was following some commands, but became agitated and hypertensive. All labs, x-rays, and medications are reviewed. CXR still showing bilateral interstitial opacities likely from atypical pneumonia. White count 18.2, hemoglobin 8.6, platelet count 625,000. BUN was 26, creatinine was 0.73. We will continue to follow make recommendations along the way. All labs, x-rays, and medications are reviewed. The patient has a history of underlying COPD, hypertension, hyperlipidemia, coronary disease, heart failure, DVT, hypothyroidism, seizure disorder, and multiple surgical procedures on her cervical and thoracic spine. Will attempt to wean off sedation today. May end up being a candidate for trach and PEG. Prognosis is guarded. The patient is seen on 11/12/2024 in room 262. She remains on volume assist- control, rate 30, tidal volume 320, FiO2 40%, PEEP of 5. Most recent blood gases show pO2 of 89, pCO2 of 54, pH is 7.29. The patient had a large difference in her peak and plateau pressure, suggesting increased airways re sistance. Airway resistance calculation was 17 cm H20/L/sec. Dynamic compliance 11.8 mL/cm of H20. Static compliance 27 mL/cm H20. The patient is on propofol at 50 mcg/kg/min, saline at 70cc/hr. Sputum cultures showing pseudomonas. Cefepime was switched to Zosyn. Remains on IV solumedrol 60 mg q6hr. Tube feedings vital HP 30 cc/hr with a goal of 45. Yesterday she did not tolerate being off sedation. She became agitated and hypertensive. She has been on ventillator since 11/06. All labs, x-rays, and medications are reviewed. CXR showing diffuse pulmonary vascular congestation. White count 14.6, hemoglobin 7.5, platelet count 598,000. BUN was 26, creatinine was 0.77. We will continue to follow make recommendations along the way. All labs, x-rays, and medications are reviewed. The patient has a history of underlying COPD, hypertension, hyperlipidemia, coronary disease, heart failure, DVT, hypothyroidism, seizure disorder, and multiple surgical procedures on her cervical and thoracic spine. Will attempt to wean off sedation today. May end up being a candidate for trach and PEG. Prognosis is guarded. The patient is seen today November 13, 2024 in follow-up in the intensive care unit. She remains intubated and on the mechanical ventilator and assist-control mode with a rate of 30, tidal volume 320, FiO2 40% and a PEEP of 5. Morning blood gases revealed a PaO2 of 76, pCO2 53 and a pH of 7.31. She is sedated on propofol at 50 mcg/kg/min. Receiving normal saline at 75 mL/h. Being nourished with vital HP at 40 mL/h with a goal of 45 mL/h. Chest x-ray shows no change in diffuse interstitial process possibly chronic in nature. No airspace consolidation, pleural effusion or pneumothorax. Sputum culture is positive for Pseudomonas aeruginosa. Count 14.2. Hemoglobin 6.8. Platelets 584. Sodium 146. Potassium 3.6. Bicarb 28. BUN 24. Creatinine 0.7. Glucose 124. She is continued on DuoNeb inhalations, Pulmicort and performance inhalations, Solu- Medrol. Antibiotics in the form of Zosyn. Objective - Vital Signs Vital signs: Vital Signs Temp 99.9 F H 11/13/24 10:00 Pulse 88 11/13/24 12:22 Resp 30 H 11/13/24 11:00 BP 137/81 11/12/24 11:00 Pulse Ox 99 11/13/24 11:00 FiO2 40 11/13/24 11:54 Intake & Output 11/12/24 11/13/24 11/13/24 17:59 06:59 18:59 Intake Total 825.427 Output Total 630 Balance 195.427 Weight Intake: IV 415 0.9 @ KVO 25 Piperacillin-Tazobactam 3 .375 gm In Sodium Chloride 0.9% 100 ml @ 25 mls/hr IVPB Q8HR [facility] Rx# :[id number] Sodium Chloride 0.9% 1, 375 000 ml @ 75 mls/hr IV . [id number] [facility] Rx#:[id number] pressure bag 15 Intake, IV Titration 165.427 Amount propofoL 1,000 mg In 165.427 Empty Bag 1 bag @ 15 MCG/ KG/MIN 4.291 mls/hr IV . [id number] [facility] Rx#:[id number] Tube Feeding 215 Other 30 Output: Urine 630 Other: Voiding Method Indwelling Catheter ABP, PAP, CO, CI - Last Documented Arterial Blood Pressure 163/75 - Exam GENERAL EXAM: Intubated, sedated 54-year-old female on the mechanical ventilator, in no apparent distress. HEAD: Normocephalic. EYES: Normal reaction of pupils, equal size. NOSE: Clear with pink turbinates. THROAT: Oral endotracheal and gastric tube secured in place. No erythema or exudates. NECK: No masses, no JVD. CHEST: No chest wall deformity. LUNGS: Equal air entry with no crackles, wheeze, rhonchi or dullness. CVS: S1 and S2 normal with no audible murmur, regular rhythm. ABDOMEN: No hepatosplenomegaly, normal bowel sounds, no guarding or rigidity. SPINE: No scoliosis or deformity SKIN: No rashes CENTRAL NERVOUS SYSTEM: Sedated, tone is normal in all 4 extremities. EXTREMITIES: There is no peripheral edema. No clubbing, no cyanosis. Peripheral pulses are intact. - Labs CBC & Chem 7: 11/13/24 05:00 11/13/24 05:00 Labs: Abnormal Lab Results - Last 24 Hours (Table) 11/12/24 11/12/24 11/12/24 Range/Units 11:45 17:34 23:11 WBC (3.8-10.6) k/uL RBC (3.80-5.40) m/uL Hgb (11.4-16.0) gm/dL Hct (34.0-46.0) % MCV (80.0-100.0) fL MCHC (31.0-37.0) g/dL RDW (11.5-15.5) % Plt Count (150-450) k/uL ABG pH (7.35-7.45) ABG pCO2 (35-45) mmHg ABG pO2 (83-108) mmHg ABG HCO3 (21-25) mmol/L ABG Total CO2 (19-24) mmol/L Hemoglobin (11.4-16.0) gm/dL Sodium (137-145) mmol/L Chloride (98-107) mmol/L BUN (7-17) mg/dL Glucose (74-99) mg/dL POC Glucose (mg/dL) 151 H 152 H 135 H (70-110) mg/dL 11/13/24 11/13/24 11/13/24 Range/Units 05:00 05:00 05:42 WBC 14.2 H (3.8-10.6) k/uL RBC 2.25 L (3.80-5.40) m/uL Hgb 6.8 L* (11.4-16.0) gm/dL Hct 23.5 L (34.0-46.0) % MCV 104.5 H (80.0-100.0) fL MCHC 29.1 L (31.0-37.0) g/dL RDW 15.6 H (11.5-15.5) % Plt Count 584 H (150-450) k/uL ABG pH (7.35-7.45) ABG pCO2 (35-45) mmHg ABG pO2 (83-108) mmHg ABG HCO3 (21-25) mmol/L ABG Total CO2 (19-24) mmol/L Hemoglobin (11.4-16.0) gm/dL Sodium 146 H (137-145) mmol/L Chloride 116 H (98-107) mmol/L BUN 24 H (7-17) mg/dL Glucose 124 H (74-99) mg/dL POC Glucose (mg/dL) 134 H (70-110) mg/dL 11/13/24 11/13/24 Range/Units 06:12 11:35 WBC (3.8-10.6) k/uL RBC (3.80-5.40) m/uL Hgb (11.4-16.0) gm/dL Hct (34.0-46.0) % MCV (80.0-100.0) fL MCHC (31.0-37.0) g/dL RDW (11.5-15.5) % Plt Count (150-450) k/uL ABG pH 7.31 L (7.35-7.45) ABG pCO2 53 H (35-45) mmHg ABG pO2 76 L (83-108) mmHg ABG HCO3 27 H (21-25) mmol/L ABG Total CO2 28 H (19-24) mmol/L Hemoglobin 7.2 L (11.4-16.0) gm/dL Sodium (137-145) mmol/L Chloride (98-107) mmol/L BUN (7-17) mg/dL Glucose (74-99) mg/dL POC Glucose (mg/dL) 136 H (70-110) mg/dL Assessment and Plan Assessment: Altered mental status, obtunded requiring intubation and mechanical ventilatory support on November 06, 2024. Suspect secondary to narcotics. Urine drug screen positive for opiates, barbiturates, tricyclic antidepressants, benzodiazepines and marijuana Acute hypoxemic and hypercapnic respiratory failure secondary to above, positive sputum culture for Pseudomonas aeruginosa, currently on Zosyn Discharge from the hospital following surgery on 10/27/2024 for open treatment of a T8 fracture, irrigation and excisional debridement of thoracic spine wound measuring 10 x 7 x 4 cm, posterior lateral instrumented fusion of T7-T11 and cement augmentation of T8-T10 vertebral bodies. Chronic obstructive pulmonary disease/asthma, currently inactive and stable T2 vertebral fracture with revision of C2-T7 posterior lateral fusion on 09/09/2024 Surgical site infection and wound dehiscence, wound and blood cultures revealed no growth Acute leukocytosis, improved Macrocytic anemia Rectal prolapse with bleeding History of hypertension History of hyperlipidemia History of coronary artery disease History of heart failure with preserved ejection fraction History of gastroesophageal reflux disease History of seizure disorder History of hypothyroidism History of anxiety/depression/PTSD Plan: The patient was seen and evaluated Chest x-ray, ABG's, labs and medications reviewed No changes to the ventilator today Continue propofol for sedation Continue Zosyn Continue DuoNeb inhalations, Solu-Medrol Continue Pulmicort and Perforomist inhalations Lovenox for DVT prophylaxis Continue with daily interruption of sedation Continue with weaning trials if tolerated May require tracheostomy and PEG tube placements early this week We will continue to follow make further recommendations based on her clinical status I have personally seen and examined the patient, performed the documentation and the assessment and plan as written. Number of minutes spent on the visit: 15 Dictation was produced using [employer] dictation software. Please excuse any grammatical, word or spelling errors.
[2024-11-13 14:24] LABS: HCT 27.2 % (34.0-46.0); HGB 7.7 gm/dL (11.4-16.0); Hypochromasia Marked; MCH 29.4 pg (25.0-35.0); MCHC 28.2 g/dL (31.0-37.0); MCV 104.1 fL (80.0-100.0); Macrocytosis Moderate; Mean Platelet Volume 7.4; Platelet Count 702 k/uL (150-450); RBC 2.61 m/uL (3.80-5.40); RDW 15.9 % (11.5-15.5); WBC 19.4 k/uL (3.8-10.6)
--- NOTE | 2024-11-13 15:58 | P.PN ---
Subjective Progress Note Date: 11/13/24 Principal diagnosis: Reason for follow-up is pneumonia Patient is a 54-year-old female with a past medical history significant for COPD DVT hypertension hyperlipidemia who recently did have a cervical thoracic spine surgery revision for a nonhealing wound to the mid/upper back area patient cultures were negative has been brought to the hospital on the patient was found to be unresponsive requiring elevation and admission to the ICU On today's evaluation that is 11/13/2024, Patient did have a low-grade fever of 99.9 F this morning patient remains to be intubated on the vent FiO2 currently 40% hemodynamically stable not requiring any pressor support no other changes has been reported. Patient white count is 19.4 creatinine 0.70 sputum is a Pseudomonas Objective - Vital Signs Vital signs: Vital Signs Temp 99.2 F 11/13/24 12:00 Pulse 80 11/13/24 15:50 Resp 30 H 11/13/24 14:00 BP 137/81 11/12/24 11:00 Pulse Ox 96 11/13/24 14:00 FiO2 40 11/13/24 15:31 Intake & Output 11/12/24 11/13/24 11/13/24 17:59 06:59 18:59 Intake Total 1239.427 Output Total 955 Balance 284.427 Weight Intake: IV 664 0.9 @ KVO 40 Piperacillin-Tazobactam 3 .375 gm In Sodium Chloride 0.9% 100 ml @ 25 mls/hr IVPB Q8HR [facility] Rx# :[id number] Sodium Chloride 0.9% 1, 600 000 ml @ 75 mls/hr IV . [id number] [facility] Rx#:[id number] pressure bag 24 Intake, IV Titration 165.427 Amount propofoL 1,000 mg In 165.427 Empty Bag 1 bag @ 15 MCG/ KG/MIN 4.291 mls/hr IV . [id number] [facility] Rx#:[id number] Tube Feeding 350 Other 60 Output: Urine 955 Other: Voiding Method Indwelling Catheter ABP, PAP, CO, CI - Last Documented Arterial Blood Pressure 159/79 - Exam GENERAL DESCRIPTION: Middle-age female intubated on the vent RESPIRATORY SYSTEM: Unlabored breathing , decreased breath sounds at bases HEART: S1 S2 regular rate and rhythm , ABDOMEN: Soft , no tenderness EXTREMITIES: No edema feet - Labs CBC & Chem 7: 11/13/24 14:02 11/13/24 05:00 Labs: Abnormal Lab Results - Last 24 Hours (Table) 11/12/24 11/12/24 11/13/24 Range/Units 17:34 23:11 05:00 WBC 14.2 H (3.8-10.6) k/uL RBC 2.25 L (3.80-5.40) m/uL Hgb 6.8 L* (11.4-16.0) gm/dL Hct 23.5 L (34.0-46.0) % MCV 104.5 H (80.0-100.0) fL MCHC 29.1 L (31.0-37.0) g/dL RDW 15.6 H (11.5-15.5) % Plt Count 584 H (150-450) k/uL ABG pH (7.35-7.45) ABG pCO2 (35-45) mmHg ABG pO2 (83-108) mmHg ABG HCO3 (21-25) mmol/L ABG Total CO2 (19-24) mmol/L Hemoglobin (11.4-16.0) gm/dL Sodium (137-145) mmol/L Chloride (98-107) mmol/L BUN (7-17) mg/dL Glucose (74-99) mg/dL POC Glucose (mg/dL) 152 H 135 H (70-110) mg/dL 11/13/24 11/13/24 11/13/24 Range/Units 05:00 05:42 06:12 WBC (3.8-10.6) k/uL RBC (3.80-5.40) m/uL Hgb (11.4-16.0) gm/dL Hct (34.0-46.0) % MCV (80.0-100.0) fL MCHC (31.0-37.0) g/dL RDW (11.5-15.5) % Plt Count (150-450) k/uL ABG pH 7.31 L (7.35-7.45) ABG pCO2 53 H (35-45) mmHg ABG pO2 76 L (83-108) mmHg ABG HCO3 27 H (21-25) mmol/L ABG Total CO2 28 H (19-24) mmol/L Hemoglobin 7.2 L (11.4-16.0) gm/dL Sodium 146 H (137-145) mmol/L Chloride 116 H (98-107) mmol/L BUN 24 H (7-17) mg/dL Glucose 124 H (74-99) mg/dL POC Glucose (mg/dL) 134 H (70-110) mg/dL 11/13/24 11/13/24 Range/Units 11:35 14:02 WBC 19.4 H (3.8-10.6) k/uL RBC 2.61 L (3.80-5.40) m/uL Hgb 7.7 L (11.4-16.0) gm/dL Hct 27.2 L (34.0-46.0) % MCV 104.1 H (80.0-100.0) fL MCHC 28.2 L (31.0-37.0) g/dL RDW 15.9 H (11.5-15.5) % Plt Count 702 H (150-450) k/uL ABG pH (7.35-7.45) ABG pCO2 (35-45) mmHg ABG pO2 (83-108) mmHg ABG HCO3 (21-25) mmol/L ABG Total CO2 (19-24) mmol/L Hemoglobin (11.4-16.0) gm/dL Sodium (137-145) mmol/L Chloride (98-107) mmol/L BUN (7-17) mg/dL Glucose (74-99) mg/dL POC Glucose (mg/dL) 136 H (70-110) mg/dL Assessment and Plan (1) Pneumonia Current Visit: Yes Status: Acute Code(s): J18.9 - PNEUMONIA, UNSPECIFIED ORGANISM SNOMED Code(s): 602459653 (2) Abnormal CT scan, chest Current Visit: Yes Status: Acute Code(s): R93.89 - ABNORMAL FINDINGS ON DX IMAGING OF OTH BODY STRUCTURES SNOMED Code(s): 68239262000440514 (3) Leukocytosis Current Visit: No Status: Acute Code(s): D72.829 - ELEVATED WHITE BLOOD CELL COUNT, UNSPECIFIED SNOMED Code(s): 887625960 Plan: 1patient presented to hospital after the patient was found to be unresponsive at home concerning for possible drug overdose also noted to have significant finding on a chest x-ray and the CT concerning for possible pneumonia question of aspiration etiology in this patient has been around the hospital concerning for possible resistant gram-positive as well as gram-negative pathogen, the thoracic or cervical incision currently looks clean without gross cellulitis or any drainage 2-patient white count is up to 19,000 today questionable steroid related and will be monitored closely continue with Zosyn Dictation was produced using [employer] dictation software. please excuse any grammatical, word or spelling errors. Time with Patient: Less than 30
[2024-11-13 18:09] LABS: Glucose,Whole Blood 140 mg/dL (70-110)
[2024-11-13 23:17] LABS: Glucose,Whole Blood 139 mg/dL (70-110)
[2024-11-14 05:11] LABS: Glucose,Whole Blood 138 mg/dL (70-110)
[2024-11-14 05:37] LABS: ABG Base Excess 0.6 mmol/L; ABG HCO3 27 mmol/L (21-25); ABG Oxygen Saturation 97.1 % (94-97); ABG PCO2 54 mmHg (35-45); ABG PH 7.31 (7.35-7.45); ABG PO2 90 mmHg (83-108); ABG TCO2 29 mmol/L (19-24); Allen Test Performed? Yes
--- NOTE | 2024-11-14 05:47 | XR ---
EXAMINATION TYPE: XR chest 1V portable DATE OF EXAM: 11/14/2024 CLINICAL INDICATION: Female, 54 years old with history of mechanical ventilation, progress study. TECHNIQUE: Single AP portable semiupright view of the chest is obtained. COMPARISON: Chest x-ray from one day earlier and older studies. FINDINGS: Stable endotracheal tube. Orogastric tube is seen on current study pass the upper thoracic level. Stable left subclavian central venous catheter. Persistent slight increased interstitial markings bilaterally. No new focal airspace opacity, pleural effusion, or pneumothorax is seen bilaterally. Cardiac silhouette size is stable and within normal l imits. Extensive surgical change to the visualized spine is redemonstrated. This makes evaluation sub optimal. IMPRESSION: No new acute pulmonary process. Distal portion of orogastric tube is less well seen on cu rrent study. [facility], , 11/14/2024 5:45 AM
[2024-11-14 06:03] LABS: Anisocytosis Slight; Basophils % (A) 0 %; Eosinophils # (A) 0.1 k/uL (0-0.7); Eosinophils % (A) 1 %; HCT 22.4 % (34.0-46.0); Hypochromasia Marked; Lymphocytes # (A) 0.6 k/uL (1.0-4.8); Lymphocytes % (A) 5 %; MCH 29.7 pg (25.0-35.0); MCHC 28.4 g/dL (31.0-37.0); MCV 104.7 fL (80.0-100.0); Macrocytosis Moderate; Mean Platelet Volume 7.8; Monocytes # (A) 0.4 k/uL (0-1.0); Monocytes % (A) 3 %; Neutrophils # (A) 11.4 k/uL (1.3-7.7); Neutrophils % (A) 90 %; Platelet Count 594 k/uL (150-450); RBC 2.14 m/uL (3.80-5.40); RDW 16.2 % (11.5-15.5); WBC 12.7 k/uL (3.8-10.6)
[2024-11-14 06:22] LABS: African American GFR (CKD) >90 (>60 ml/min/1.73 sqM); Anion Gap 3 mmol/L; Blood Urea Nitrogen 26 mg/dL (7-17); Calcium 8.1 mg/dL (8.4-10.2); Carbon Dioxide 28 mmol/L (22-30); Chloride 116 mmol/L (98-107); Glucose 133 mg/dL (74-99); HGB 6.4 gm/dL (11.4-16.0); Non-African American GFR(CKD) >90 (>60 ml/min/1.73 sqM); Potassium 3.3 mmol/L (3.5-5.1); Sodium 147 mmol/L (137-145)
[2024-11-14] MEDS: POTASSIUM BICARBONATE/CIT AC 20 MEQ TABLET.EFF NG-TUBE SCH (10:00)
--- NOTE | 2024-11-14 10:47 | P.PN ---
Subjective Progress Note Date: 11/14/24 Progress Note Date: 11/13/24 This is a 54-year-old female patient with a known history of COPD, hypertension, hyperlipidemia, coronary disease, congestive heart failure, DVT, hypothyroidism, seizure disorder, multiple previous back surgeries. She had most recently undergone a C2-T7 posterior lateral fusion on 09/09/2024. She developed a significant infection and wound dehiscence and was back here in the hospital and had undergone irrigation and excisional debridement of a thoracic spine wound on 10/27/2024 and discharged to home on 11/02/2024. She was brought back here to the emergency room earlier this morning after being found obtunded and unresponsive by her . She was intubated here in the emergency department. Chest x- ray revealed bilateral upper interstitial opacities concerning for pneumonia versus fluid volume overload. Evidence of COPD. Endotracheal tube and nasogastric tubes in position. CT scan of the brain revealed no acute intrac ranial process. CT angiogram ruled out pulmonary embolism. There is bilateral upper lobe reticular opacities with right greater than left raising concerns for infection. Few foci of gas identified within the left supraclavicular region and left anterior chest wall possibly with venous vasculature. CT scan of the thoracic spine reveals extensive postsurgical changes. No gross evidence of complication. White count 9.0. Hemoglobin 10.6. Platelets 800,000. INR 0.9. Sodium 144. Potassium 4.0. Bicarb 27. BUN 16. Creatinine 0.96. Glucose 111. Lactic acid 3.0. AST 86. ALT 39. Troponin 0.044. Urinalysis clean. Drug urine screen is positive for opiates, barbiturates, antidepressants, benzodiazepines and marijuana. Initial arterial blood gases on 100% FiO2 revealed a PaO2 of 34, pCO2 89 and a pH of 7.07. Follow-up blood gases on the mechanical ventilator on 100% revealed a PaO2 greater than 420, pCO2 61 and a pH of 7.20. Her current vent settings are assist-control mode at a rate of 26, tidal volume 320 and FiO2 50% and a PEEP of 5. She is sedated on propofol at 50 mcg/kg/h. She has been initiated on vancomycin and cefepime. Received Narcan without improvement initially. She received 2 L of fluid resuscitation. 11/07/2024: Patient is a 54 year old female who was admmited to the ICU on 11/06/2024 with acute hypoxic respiratory failure. She arrived to ED unresponsive. Initially thought it was narcotic overdose. Did not improve with narcan. Ultimately intubated and mechanically ventillated on 11/06 . Patient tested positive for opiates, barbiturates, tricyclic's, benzodiazepines, and marijuana. Her underlying problems include COPD, hypertension, hyperlipidemia, coronary disease, congestive heart failure, DVT, hypothyroidism, seizure disorder, multiple previous back surgeries, T2 vertebral fracture with revision of C2-T7 posterior lateral fusion on 09/09/2024 patient developed surgical wound infection and dehiscence of wound. Patient was seen today 11/07/2024. Remains intubated and mechanically ventillated on assist controlled at a rate of 30, tidal volume 320, FiO2 50%, PEEP of 5. ABG: pH 7.17/pCO2 66 /pO2 70. Currently on propofol 50 mcg/kg/min and normal saline 0.9% at 125 cc/hr. No acute events overnight. Repeat CXR showing bilateral pleural and interstitial opacities. Labs WBC 38.9 Hgb 8.2, platelets 659, CO2 21, anion gap 11, BUN 16, creatinine 0.96 CRP 26.5. Patient currently on IV vancomycin dosed by pharmacy and cefepime 2 g IVPB every 12 hours. Blood cultures are pending. MRSA/MSSA screening pending. Currently not on any tube feeding. The patient is seen on 11/08/2024 in room 262. She remains on volume assist- control, rate 30, tidal volume 320, FiO2 40%, PEEP of 5. Most recent blood gases show pO2 of 110, pCO2 of 56, pH is 7.24. The patient is on propofol at 50 mcg/kg/min, saline at 125 cc an hour which we will decrease to 75cc an hour d/t suspected dillutional anemia, and vancomycin and cefepime. Tube feedings vital HP 40 cc/hr which is goal. Blood cultures showing no growth. Left brachial ART line was placed last night. All labs, x-rays, and medications are reviewed. CXR showing bilateral interstitial opacities. White count 18.7, hemoglobin 7.0, platelet count 505,000. BUN was 19, creatinine was 0.85. We will continue to follow make recommendations along the way. All labs, x-rays, and medications are reviewed. The patient has a history of underlying COPD, hypertension, hyperlipidemia, coronary disease, heart failure, DVT, hypothyroidism, seizure disorder, and multiple surgical procedures on her cervical and thoracic spine. Prognosis is guarded. The patient is seen on 11/09/2024 in room 262. She remains on volume assist- control, rate 30, tidal volume 320, FiO2 40%, PEEP of 5. Most recent blood gases show pO2 of 89, pCO2 of 56, pH is 7.24. The patient is on propofol at 20 mcg/kg/min, saline at 75cc. Remains on vancomycin and cefepime. Yesterday was placed IV solumedrol 40 mg q8hr, but will increase to 60 mg q6hr. Tube feedings vital HP 40 cc/hr which is goal. Blood cultures showing no growth. Sputum cultures showing pseudomonas. MRSA/MSSA nares negative. Yesterday she did not tolerate being off sedation. Only lasted for 20 minutes due to her peak pressui ng and being tachypnic. She was given dilaudid yesterday which caused her to be hypotensive so she was subsequently put on levofed but has since been off it since 530a. All labs, x-rays, and medications are reviewed. CXR still showing bilateral interstitial opacities likely from atypical pneumonia. White count 17.9, hemoglobin 8.1, platelet count 572,000. BUN was 23, creatinine was 0.67. AST 35, ALT 58. We will continue to follow make recommendations along the way. All labs, x-rays, and medications are reviewed. The patient has a history of underlying COPD, hypertension, hyperlipidemia, coronary disease, heart failure, DVT, hypothyroidism, seizure disorder, and multiple surgical procedures on her cervical and thoracic spine. Prognosis is guarded. The patient is seen on 11/10/2024 in room 262. She remains on volume assist- control, rate 30, tidal volume 320, FiO2 40%, PEEP of 5. Most recent blood gases show pO2 of 78, pCO2 of 52, pH is 7.29. The patient is on propofol at 50 mcg/kg/min, saline at 75cc/hr. Remains on vancomycin and cefepime. Remains on IV solumedrol 60 mg q6hr. Tube feedings vital HP 20 cc/hr with a goal of 40. Yesterday she did not tolerate being off sedation. She was following some commands, but became agitated and hypertensive. All labs, x-rays, and medications are reviewed. CXR still showing bilateral interstitial opacities likely from atypical pneumonia. White count 18.2, hemoglobin 8.6, platelet count 625,000. BUN was 26, creatinine was 0.73. We will continue to follow make recommendations along the way. All labs, x-rays, and medications are reviewed. The patient has a history of underlying COPD, hypertension, hyperlipidemia, coronary disease, heart failure, DVT, hypothyroidism, seizure disorder, and multiple surgical procedures on her cervical and thoracic spine. Will attempt to wean off sedation today. May end up being a candidate for trach and PEG. Prognosis is guarded. The patient is seen on 11/12/2024 in room 262. She remains on volume assist- control, rate 30, tidal volume 320, FiO2 40%, PEEP of 5. Most recent blood gases show pO2 of 89, pCO2 of 54, pH is 7.29. The patient had a large differ ence in her peak and plateau pressure, suggesting increased airways resistance. Airway resistance calculation was 17 cm H20/L/sec. Dynamic compliance 11.8 mL/cm of H20. Static compliance 27 mL/cm H20. The patient is on propofol at 50 mcg/kg/min, saline at 70cc/hr. Sputum cultures showing pseudomonas. Cefepime was switched to Zosyn. Remains on IV solumedrol 60 mg q6hr. Tube feedings vital HP 30 cc/hr with a goal of 45. Yesterday she did not tolerate being off sedation. She became agitated and hypertensive. She has been on ventillator since 11/06. All labs, x-rays, and medications are reviewed. CXR showing diffuse pulmonary vascular congestation. White count 14.6, hemoglobin 7.5, platelet count 598,000. BUN was 26, creatinine was 0.77. We will continue to follow make recommendations along the way. All labs, x-rays, and medications are reviewed. The patient has a history of underlying COPD, hypertension, hyperlipidemia, coronary disease, heart failure, DVT, hypothyroidism, seizure disorder, and multiple surgical procedures on her cervical and thoracic spine. Will attempt to wean off sedation today. May end up being a candidate for trach and PEG. Prognosis is guarded. The patient is seen today November 13, 2024 in follow-up in the intensive care unit. She remains intubated and on the mechanical ventilator and assist-control mode with a rate of 30, tidal volume 320, FiO2 40% and a PEEP of 5. Morning blood gases revealed a PaO2 of 76, pCO2 53 and a pH of 7.31. She is sedated on propofol at 50 mcg/kg/min. Receiving normal saline at 75 mL/h. Being nourished with vital HP at 40 mL/h with a goal of 45 mL/h. Chest x-ray shows no change in diffuse interstitial process possibly chronic in nature. No airspace consolidation, pleural effusion or pneumothorax. Sputum culture is positive for Pseudomonas aeruginosa. Count 14.2. Hemoglobin 6.8. Platelets 584. Sodium 146. Potassium 3.6. Bicarb 28. BUN 24. Creatinine 0.7. Glucose 124. She is continued on DuoNeb inhalations, Pulmicort and performance inhalations, Solu- Medrol. Antibiotics in the form of Zosyn. On 11/14/2024, patient is being seen and follow-up. Is a very complicated case of patient with COPD who underwent an extensive spine surgery. The patient initially had a C2 T7 posterior lateral fusion that was done on 09/09/2024. The patient had a T2 vertebral fracture. Subsequently, she was discharged home to be readmitted for wound dehiscence and suspected infection. The patient underwent irrigation and excisional debridement of the thoracic spine wound and T7 T11 fusion with cement augmentation of T8 T10 vertebral bodies. The patient was discharged home to be readmitted for altered mentation and diminished level of consciousness. This was suspected to be related to excessive narcotic use along with COPD. As such, the patient was intubated and placed on mechanical ventilation the patient has failed to wean since. She has failed sedation holiday. She becomes quite restless and asynchronous with mechanical ventilator. Furthermore, she was found to have fullness in her lungs and a chest x-ray from today showing no acute pulmonary filtrates. This could be a colonization versus a true infection as the patient's initial chest x-ray at time of admission was showing extensive opacities in the lungs consistent with pneumonia. Noted does infiltrate improved pressure to 1 in the right upper lobe. The patient is currently on IV Zosyn. This morning, the patient is on assist-control mode of mechanical ventilation at rate of 30, tidal volume of 320, FiO2 of 40% with a PEEP of 5. Blood gas showed pH of 7.31 with a pCO2 of 54 and pO2 of 90. She is sedated on propofol running at 50 mcg/kg/min. She is on normal saline at rate of 75 cc an hour. Fluid balance is +1.2 L over the past 24 hours. She is on vital HP running at 45 cc an hour. White cell count of 12.7, hemoglobin is at 6.4 and a platelet count of 594. Sodium levels at 147, potassium is at 3.3, BUN 26 with a creatinine of 0.69. She remains on DuoNeb updrafts. She remains on IV Solu-Medrol 60 mg every 6 hours. She remains on IV Zosyn. Objective - Vital Signs Vital signs: Vital Signs Temp 98.4 F 11/14/24 04:00 Pulse 86 11/14/24 08:45 Resp 30 H 11/14/24 07:00 BP 137/81 11/12/24 11:00 Pulse Ox 99 11/14/24 07:00 FiO2 40 11/14/24 08:14 Intake & Output 11/13/24 11/14/24 11/14/24 18:59 06:59 18:59 Intake Total 2078.442 1666 347.056 Output Total 1355 1175 200 Balance 723.442 491 147.056 Weight 58.6 kg Intake: IV 1196 996 166 0.9 @ KVO 60 60 10 Piperacillin-Tazobactam 3 200 .375 gm In Sodium Chloride 0.9% 100 ml @ 25 mls/hr IVPB Q8HR [facility] Rx# :[id number] Sodium Chloride 0.9% 1, 900 900 150 000 ml @ 75 mls/hr IV . [id number] [facility] Rx#:[id number] pressure bag 36 36 6 Intake, IV Titration 262.442 100 91.056 Amount propofoL 1,000 mg In 262.442 100 91.056 Empty Bag 1 bag @ 15 MCG/ KG/MIN 4.291 mls/hr IV . [id number] [facility] Rx#:[id number] Tube Feeding 530 540 90 Other 90 30 Output: Urine 1355 1175 200 Other: Voiding Method Indwelling Catheter Indwelling Catheter ABP, PAP, CO, CI - Last Documented Arterial Blood Pressure 102/44 - Exam GENERAL EXAM: Intubated, sedated 54-year-old female on the mechanical ventilator, in no apparent distress. HEAD: Normocephalic. EYES: Normal reaction of pupils, equal size. NOSE: Clear with pink turbinates. THROAT: Oral endotracheal and gastric tube secured in place. No erythema or exudates. NECK: No masses, no JVD. CHEST: No chest wall deformity. LUNGS: Equal air entry with no crackles, wheeze, rhonchi or dullness. CVS: S1 and S2 normal with no audible murmur, regular rhythm. ABDOMEN: No hepatosplenomegaly, normal bowel sounds, no guarding or rigidity. SPINE: No scoliosis or deformity SKIN: No rashes CENTRAL NERVOUS SYSTEM: Sedated, tone is normal in all 4 extremities. EXTREMITIES: There is no peripheral edema. No clubbing, no cyanosis. Peripheral pulses are intact. - Labs CBC & Chem 7: 11/14/24 06:00 11/14/24 06:00 Labs: Abnormal Lab Results - Last 24 Hours (Table) 11/13/24 11/13/24 11/13/24 Range/Units 11:35 14:02 18:07 WBC 19.4 H (3.8-10.6) k/uL RBC 2.61 L (3.80-5.40) m/uL Hgb 7.7 L (11.4-16.0) gm/dL Hct 27.2 L (34.0-46.0) % MCV 104.1 H (80.0-100.0) fL MCHC 28.2 L (31.0-37.0) g/dL RDW 15.9 H (11.5-15.5) % Plt Count 702 H (150-450) k/uL Neutrophils # (1.3-7.7) k/uL Lymphocytes # (1.0-4.8) k/uL ABG pH (7.35-7.45) ABG pCO2 (35-45) mmHg ABG HCO3 (21-25) mmol/L ABG Total CO2 (19-24) mmol/L ABG O2 Saturation (94-97) % Hemoglobin (11.4-16.0) gm/dL Sodium (137-145) mmol/L Potassium (3.5-5.1) mmol/L Chloride (98-107) mmol/L BUN (7-17) mg/dL Glucose (74-99) mg/dL POC Glucose (mg/dL) 136 H 140 H (70-110) mg/dL Calcium (8.4-10.2) mg/dL 11/13/24 11/14/24 11/14/24 Range/Units 23:16 05:09 05:32 WBC (3.8-10.6) k/uL RBC (3.80-5.40) m/uL Hgb (11.4-16.0) gm/dL Hct (34.0-46.0) % MCV (80.0-100.0) fL MCHC (31.0-37.0) g/dL RDW (11.5-15.5) % Plt Count (150-450) k/uL Neutrophils # (1.3-7.7) k/uL Lymphocytes # (1.0-4.8) k/uL ABG pH 7.31 L (7.35-7.45) ABG pCO2 54 H (35-45) mmHg ABG HCO3 27 H (21-25) mmol/L ABG Total CO2 29 H (19-24) mmol/L ABG O2 Saturation 97.1 H (94-97) % Hemoglobin 6.3 L* (11.4-16.0) gm/dL Sodium (137-145) mmol/L Potassium (3.5-5.1) mmol/L Chloride (98-107) mmol/L BUN (7-17) mg/dL Glucose (74-99) mg/dL POC Glucose (mg/dL) 139 H 138 H (70-110) mg/dL Calcium (8.4-10.2) mg/dL 11/14/24 11/14/24 Range/Units 06:00 06:00 WBC 12.7 H (3.8-10.6) k/uL RBC 2.14 L (3.80-5.40) m/uL Hgb 6.4 L* (11.4-16.0) gm/dL Hct 22.4 L (34.0-46.0) % MCV 104.7 H (80.0-100.0) fL MCHC 28.4 L (31.0-37.0) g/dL RDW 16.2 H (11.5-15.5) % Plt Count 594 H (150-450) k/uL Neutrophils # 11.4 H (1.3-7.7) k/uL Lymphocytes # 0.6 L (1.0-4.8) k/uL ABG pH (7.35-7.45) ABG pCO2 (35-45) mmHg ABG HCO3 (21-25) mmol/L ABG Total CO2 (19-24) mmol/L ABG O2 Saturation (94-97) % Hemoglobin (11.4-16.0) gm/dL Sodium 147 H (137-145) mmol/L Potassium 3.3 L (3.5-5.1) mmol/L Chloride 116 H (98-107) mmol/L BUN 26 H (7-17) mg/dL Glucose 133 H (74-99) mg/dL POC Glucose (mg/dL) (70-110) mg/dL Calcium 8.1 L (8.4-10.2) mg/dL Assessment and Plan Plan: Acute exacerbation of COPD with pseudomonal pneumonia. The patient had diffuse bilateral pulmonary filtrates pressure in the right upper lobe which improved on subsequent chest x-ray and the patient remains on IV Zosyn. Acute on chronic hypoxic and hypercapnic respiratory failure due to above, remains intubated on mechanical ventilator, has failed to wean and heart failure is multifactorial. She has advanced COPD with poor pulmonary reserve due to her advanced COPD and extensive spinal surgery which has affected her ability to do adequate pulmonary toileting. Advanced COPD Altered mental status, obtunded requiring intubation and mechanical ventilatory support on November 06, 2024. T 8 fracture and the patient had spine surgery. The patient was discharged from the hospital following surgery on 10/27/2024 for open treatment of a T8 fracture, irrigation and excisional debridement of thoracic spine wound measuring 10 x 7 x 4 cm, posterior lateral instrumented fusion of T7-T11 and cement augmentation of T8-T10 vertebral bodies. T2 vertebral fracture with revision of C2-T7 posterior lateral fusion on 09/09/2024 Surgical site infection and wound dehiscence, wound and blood cultures revealed no growth Acute leukocytosis, improved Acute on chronic anemia with a hemoglobin of 6.4, no evidence of any acute bleeding Rectal prolapse History of hypertension History of hyperlipidemia History of coronary artery disease History of heart failure with preserved ejection fraction based on echocardiogram from July 2023 History of gastroesophageal reflux disease History of seizure disorder History of hypothyroidism History of anxiety/depression/PTSD Plan: Continue vent support No changes to the ventilator today. This will be a very difficult extubation due to comorbidities mentioned above. The patient was better served off with a tracheostomy and a chronic slow wean Continue propofol for sedation Continue Zosyn Continue DuoNeb inhalations, Solu-Medrol Continue Pulmicort and Perforomist inhalations Lovenox for DVT prophylaxis Continue with daily interruption of sedation Unable to tolerate weaning trials We will continue to follow make further recommendations based on her clinical status Critical care evaluation, 32 minutes Time with Patient: Greater than 30
[2024-11-14] MEDS: DEXTROSE 5%-0.45% NACL 1,000 ML IV SCH (11:29)
--- NOTE | 2024-11-14 11:52 | P.GSCN ---
History of Present Illness Consult date: 11/14/24 Reason for Consult: Respiratory failure History of present illness: 54-year-old female presented to the hospital unresponsive. She was found by her fianc. Etiology unclear. Patient had had a recent back surgery and subsequent revision of her incision and had been discharged a couple of days prior to her episode of unresponsiveness. Patient has been on the ventilator since the 11/06. I was consulted today for tracheostomy and PEG tube placement. Apparently the last 5 days she has not been able to wean. Has a history of underlying COPD. Patient was seen by myself several years ago. She has a rectal prolapse that is chronic. She was advised to follow-up as outpatient for possible colorectal surgery evaluation but she left AGAINST MEDICAL ADVICE that hospitalization. Have not seen her to my knowledge since then. Hemoglobin today is 6.4. It has been trending down since her admission. No rectal bleeding or melena. Had a n ormal stool this morning. Being given 1 unit of blood today. Review of Systems ROS unobtainable: due to endotracheal tube Past Medical History Past Medical History: Asthma, Heart Failure, COPD, Deep Vein Thrombosis (DVT), Eye Disorder, Fibromyalgia, GERD/Reflux, Hyperlipidemia, Hypertension, Memory Impairment, Myocardial Infarction ([place]), Osteoarthritis (OA), Pneumonia, Seizure Disorder, Skin Disorder, Syncope, Thyroid Disorder Additional Past Medical History / Comment(s): IBS, colitis, restless legs flexed syndrome, daily migraines, Vitamin D deficiency, benign left breast mass, gastritis, short term memory loss. Vision - "sees an orange aura." BILAT CATARACTS Last seizure 09/22/2024, PT STATES THAT DR. VILLALBA IS AWARE"Legs are weak and balance is off." checked bone marrow for cancer. Pt has pressure ulcer over lower incision from surgery on 09/09/2024. States she had a blood clot in leg but not sure which leg or when Last Myocardial Infarction Date:: 2009 History of Any Multi-Drug Resistant Organisms: None Reported Past Surgical History: Back Surgery, Hysterectomy, Orthopedic Surgery Additional Past Surgical History / Comment(s): D&C, bilateral knee arthroscopy. Past Anesthesia/Blood Transfusion Reactions: No Reported Reaction Additional Past Anesthesia/Blood Transfusion Reaction / Comm: severe anxiety coming out of anesthesia,no hx blood transfusion Past Psychological History: Anxiety, Bipolar, Depression, PTSD Smoking Status: Current every day smoker Past Alcohol Use History: None Reported Past Drug Use History: Marijuana - Past Family History Father Family Medical History: Cancer Additional Family Medical History / Comment(s): Father of pancreatic cancer at the age of 62yrs. and lung cancer Mother Family Medical History: Congestive Heart Failure (CHF) Additional Family Medical History / Comment(s): Mother of CHF at the age of 60yrs. Brother(s) Additional Family Medical History / Comment(s): Patient had 1 brother that at 5 months of age. Sister(s) Family Medical History: Deep Vein Thrombosis (DVT) Additional Family Medical History / Comment(s): Patient has one sister with history of depression and bipolar. Patient has 2 half-sisters and one at age 26 from overdose. Patient does not have any children. Medications and Allergies Home Medications Medication Instructions Recorded Confirmed Type Asenapine Maleate [Saphris] 10 mg SUBLINGUAL BID 04/30/17 11/06/24 History Sertraline [Zoloft] 200 mg PO DAILY 04/30/17 11/06/24 History Pantoprazole Sodium [Protonix] 40 mg PO BID 01/07/19 11/06/24 History Topiramate [Trokendi Xr] 100 mg PO DAILY 04/15/21 11/06/24 History cloBAZam [Sympazan] 10 mg PO BID 04/15/21 11/06/24 History hydrOXYzine pamoate [Vistaril] 50 mg PO TID PRN 04/16/21 11/06/24 History Albuterol Sulfate [Proair Hfa] 2 puff INHALATION RT-QID PRN 05/10/21 11/06/24 History Prazosin HCl [Minipress] 2 mg PO BID@1700,2100 05/10/21 11/06/24 History rOPINIRole HCL [Requip] 2 mg PO BID 05/10/21 11/06/24 History Fluticasone/Umeclidin/Vilanter 1 puff INHALATION RT-DAILY 12/10/22 11/06/24 History [Trelegy Ellipta 100-62.5-25] Brivaracetam [Briviact] 100 mg PO BID 07/10/23 11/06/24 History Budesonide [Pulmicort] 0.5 mg INHALATION RT-BID PRN 07/27/23 11/06/24 History Butalb/Acetaminophen/Caffeine 1 tab PO Q6H PRN 07/27/23 11/06/24 History [Fioricet 50-325-40] Cetirizine HCl [Zyrtec] 10 mg PO DAILY 07/27/23 11/06/24 History Fluticasone Nasal [place] [Flonase 1 spray EA NOSTRIL DAILY 07/27/23 11/06/24 History Nasal [place]] Ipratropium-Albuterol Nebulize 3 ml INHALATION RT-QID 07/27/23 11/06/24 History [Duoneb 0.5 mg-3 mg/3 ml Soln] Levothyroxine Sodium [Synthroid] 88 mcg PO DAILY 07/27/23 11/06/24 History Propranolol [Inderal] 20 mg PO BID 07/27/23 11/06/24 History Acetaminophen Tab [Tylenol] 500 mg PO Q6HR PRN 10/25/24 11/06/24 History Albuterol Nebulized [Ventolin 2.5 mg INHALATION RT-BID 10/25/24 11/06/24 History Nebulized] Cholecalciferol (Vitamin D3) 50 mcg PO DAILY 10/25/24 11/06/24 History [Vitamin D3 (50 Mcg = 2000 Iu)] Furosemide [Lasix] 40 mg PO DAILY 10/25/24 11/06/24 History Ibuprofen [Motrin] 800 mg PO Q8H PRN 10/25/24 11/06/24 History Montelukast [Singulair] 10 mg PO HS 10/25/24 11/06/24 History busPIRone HCL 15 mg PO TID 10/25/24 11/06/24 History rOPINIRole HCL [Requip] 1 mg PO BID 10/25/24 11/06/24 History Cyclobenzaprine [Flexeril] 10 mg PO TID #21 tab 11/02/24 11/06/24 Rx HYDROcodone/APAP 10-325MG [Lindsey 1 tab PO Q6HR PRN #28 tab 11/02/24 11/06/24 Rx 10-325] cefaDROXiL [Duricef] 500 mg PO Q12HR 5 Days #10 cap 11/02/24 11/06/24 Rx Tamsulosin HCl [Flomax] 0.4 mg PO DAILY #30 capsule 11/03/24 11/06/24 Rx Daily-Kylee(With Folic Acid) 400mcg 1 tab PO DAILY 11/06/24 11/06/24 History Tablet Gabapentin [Neurontin] 800 mg PO TID 11/06/24 11/06/24 History Sennosides/Docusate Sodium [Senna 1 cap PO DAILY 11/06/24 11/06/24 History Plus 8.6-50 mg Softgel] Allergies Allergy/AdvReac Type Severity Reaction Status Date / Time bee venom protein (honey bee) Allergy Anaphylaxis Verified 11/06/24 15:29 Surgical - Exam Vital Signs Resp 20 11/06/24 10:14 Physical exam: General: Well-developed, well-nourished HEENT: Normocephalic, sclerae nonicteric, endotracheal tube in place Abdomen: Nontender, nondistended Extremities: Mild extremity edema Rectal: Rectal prolapse present, protrusion 3 to 4 cm, mucosa viable, able to be reduced however prolapses quite easily after doing so Neuro: Alert and oriented Results - Labs 11/14/24 06:00 11/14/24 06:00 Abnormal Lab Results - Last 24 Hours (Table) 11/13/24 11/13/24 11/13/24 Range/Units 14:02 18:07 23:16 WBC 19.4 H (3.8-10.6) k/uL RBC 2.61 L (3.80-5.40) m/uL Hgb 7.7 L (11.4-16.0) gm/dL Hct 27.2 L (34.0-46.0) % MCV 104.1 H (80.0-100.0) fL MCHC 28.2 L (31.0-37.0) g/dL RDW 15.9 H (11.5-15.5) % Plt Count 702 H (150-450) k/uL Neutrophils # (1.3-7.7) k/uL Lymphocytes # (1.0-4.8) k/uL ABG pH (7.35-7.45) ABG pCO2 (35-45) mmHg ABG HCO3 (21-25) mmol/L ABG Total CO2 (19-24) mmol/L ABG O2 Saturation (94-97) % Hemoglobin (11.4-16.0) gm/dL Sodium (137-145) mmol/L Potassium (3.5-5.1) mmol/L Chloride (98-107) mmol/L BUN (7-17) mg/dL Glucose (74-99) mg/dL POC Glucose (mg/dL) 140 H 139 H (70-110) mg/dL Calcium (8.4-10.2) mg/dL Crossmatch 11/14/24 11/14/24 11/14/24 Range/Units 05:09 05:32 06:00 WBC 12.7 H (3.8-10.6) k/uL RBC 2.14 L (3.80-5.40) m/uL Hgb 6.4 L* (11.4-16.0) gm/dL Hct 22.4 L (34.0-46.0) % MCV 104.7 H (80.0-100.0) fL MCHC 28.4 L (31.0-37.0) g/dL RDW 16.2 H (11.5-15.5) % Plt Count 594 H (150-450) k/uL Neutrophils # 11.4 H (1.3-7.7) k/uL Lymphocytes # 0.6 L (1.0-4.8) k/uL ABG pH 7.31 L (7.35-7.45) ABG pCO2 54 H (35-45) mmHg ABG HCO3 27 H (21-25) mmol/L ABG Total CO2 29 H (19-24) mmol/L ABG O2 Saturation 97.1 H (94-97) % Hemoglobin 6.3 L* (11.4-16.0) gm/dL Sodium (137-145) mmol/L Potassium (3.5-5.1) mmol/L Chloride (98-107) mmol/L BUN (7-17) mg/dL Glucose (74-99) mg/dL POC Glucose (mg/dL) 138 H (70-110) mg/dL Calcium (8.4-10.2) mg/dL Crossmatch 11/14/24 11/14/24 Range/Units 06:00 07:43 WBC (3.8-10.6) k/uL RBC (3.80-5.40) m/uL Hgb (11.4-16.0) gm/dL Hct (34.0-46.0) % MCV (80.0-100.0) fL MCHC (31.0-37.0) g/dL RDW (11.5-15.5) % Plt Count (150-450) k/uL Neutrophils # (1.3-7.7) k/uL Lymphocytes # (1.0-4.8) k/uL ABG pH (7.35-7.45) ABG pCO2 (35-45) mmHg ABG HCO3 (21-25) mmol/L ABG Total CO2 (19-24) mmol/L ABG O2 Saturation (94-97) % Hemoglobin (11.4-16.0) gm/dL Sodium 147 H (137-145) mmol/L Potassium 3.3 L (3.5-5.1) mmol/L Chloride 116 H (98-107) mmol/L BUN 26 H (7-17) mg/dL Glucose 133 H (74-99) mg/dL POC Glucose (mg/dL) (70-110) mg/dL Calcium 8.1 L (8.4-10.2) mg/dL Crossmatch See Detail Diabetes panel 11/14/24 Range/Units 06:00 Sodium 147 H (137-145) mmol/L Potassium 3.3 L (3.5-5.1) mmol/L Chloride 116 H (98-107) mmol/L Carbon Dioxide 28 (22-30) mmol/L BUN 26 H (7-17) mg/dL Creatinine 0.69 (0.52-1.04) mg/dL Glucose 133 H (74-99) mg/dL Calcium 8.1 L (8.4-10.2) mg/dL Calcium panel 11/14/24 Range/Units 06:00 Calcium 8.1 L (8.4-10.2) mg/dL Pituitary panel 11/14/24 Range/Units 06:00 Sodium 147 H (137-145) mmol/L Potassium 3.3 L (3.5-5.1) mmol/L Chloride 116 H (98-107) mmol/L Carbon Dioxide 28 (22-30) mmol/L BUN 26 H (7-17) mg/dL Creatinine 0.69 (0.52-1.04) mg/dL Glucose 133 H (74-99) mg/dL Calcium 8.1 L (8.4-10.2) mg/dL Adrenal panel 11/14/24 Range/Units 06:00 Sodium 147 H (137-145) mmol/L Potassium 3.3 L (3.5-5.1) mmol/L Chloride 116 H (98-107) mmol/L Carbon Dioxide 28 (22-30) mmol/L BUN 26 H (7-17) mg/dL Creatinine 0.69 (0.52-1.04) mg/dL Glucose 133 H (74-99) mg/dL Calcium 8.1 L (8.4-10.2) mg/dL Assessment and Plan (1) Acute hypoxic on chronic hypercapnic respiratory failure Narrative/Plan: 54-year-old female with respiratory failure. Unable to wean from ventilator. Patient has a public guardian apparently. They have consented to tracheostomy and PEG tube placement already. Will schedule for tracheostomy and PEG tube placement at this time. Risks of bleeding, infection, loss of airway, fistula, pneumothorax, bowel perforation, prolonged respiratory failure, reviewed with the patient's boyfriend or fianc at the bedside. All questions answered. Current Visit: Yes Status: Acute Code(s): J96.01 - ACUTE RESPIRATORY FAILURE WITH HYPOXIA; J96.12 - CHRONIC RESPIRATORY FAILURE WITH HYPERCAPNIA SNOMED Code(s): 56926502
[2024-11-14 12:16] LABS: Glucose,Whole Blood 156 mg/dL (70-110)
--- NOTE | 2024-11-14 13:25 | P.PN ---
Subjective Progress Note Date: 11/14/24 Principal diagnosis: Reason for follow-up is pneumonia Patient is a 54-year-old female with a past medical history significant for COPD DVT hypertension hyperlipidemia who recently did have a cervical thoracic spine surgery revision for a nonhealing wound to the mid/upper back area patient cultures were negative has been brought to the hospital on the patient was found to be unresponsive requiring elevation and admission to the ICU On today's evaluation that is 11/14/2024, patient has been afebrile, patient is on the vent FiO2 currently at 40% no significant purulent secretions in the ET diarrhea or any other changes reported by nursing staff patient is currently not requiring any pressor support patient did fail her weaning trials and impair his be considered for trach and PEG. Patient white count is down to 12.7 creatinine 0.69 Objective - Vital Signs Vital signs: Vital Signs Temp 98.7 F 11/14/24 12:00 Pulse 101 H 11/14/24 13:00 Resp 30 H 11/14/24 13:00 BP 151/70 11/14/24 11:11 Pulse Ox 96 11/14/24 13:00 FiO2 40 11/14/24 12:00 Intake & Output 11/13/24 11/14/24 11/14/24 18:59 06:59 18:59 Intake Total 2078.442 1666 1082.056 Output Total 1355 1175 825 Balance 723.442 491 257.056 Weight 58.6 kg Intake: IV 1196 996 556 0.9 @ KVO 60 60 10 Dextrose 5%-0.45% NaCl 1, 150 000 ml @ 75 mls/hr IV . [id number] [facility] Rx#:[id number] Piperacillin-Tazobactam 3 200 .375 gm In Sodium Chloride 0.9% 100 ml @ 25 mls/hr IVPB Q8HR [facility] Rx# :[id number] Sodium Chloride 0.9% 1, 900 900 375 000 ml @ 75 mls/hr IV . [id number] [facility] Rx#:[id number] pressure bag 36 36 21 Intake, IV Titration 262.442 100 91.056 Amount propofoL 1,000 mg In 262.442 100 91.056 Empty Bag 1 bag @ 15 MCG/ KG/MIN 4.291 mls/hr IV . [id number] [facility] Rx#:[id number] Tube Feeding 530 540 315 Blood Product 0 Unit 0 Other 90 30 120 Output: Urine 1355 1175 825 Other: Voiding Method Indwelling Catheter Indwelling Catheter ABP, PAP, CO, CI - Last Documented Arterial Blood Pressure 137/68 - Exam GENERAL DESCRIPTION: Middle-age female intubated on the vent RESPIRATORY SYSTEM: Unlabored breathing , decreased breath sounds at bases HEART: S1 S2 regular rate and rhythm , ABDOMEN: Soft , no tenderness EXTREMITIES: No edema feet - Labs CBC & Chem 7: 11/14/24 06:00 11/14/24 06:00 Labs: Abnormal Lab Results - Last 24 Hours (Table) 11/13/24 11/13/24 11/13/24 Range/Units 14:02 18:07 23:16 WBC 19.4 H (3.8-10.6) k/uL RBC 2.61 L (3.80-5.40) m/uL Hgb 7.7 L (11.4-16.0) gm/dL Hct 27.2 L (34.0-46.0) % MCV 104.1 H (80.0-100.0) fL MCHC 28.2 L (31.0-37.0) g/dL RDW 15.9 H (11.5-15.5) % Plt Count 702 H (150-450) k/uL Neutrophils # (1.3-7.7) k/uL Lymphocytes # (1.0-4.8) k/uL ABG pH (7.35-7.45) ABG pCO2 (35-45) mmHg ABG HCO3 (21-25) mmol/L ABG Total CO2 (19-24) mmol/L ABG O2 Saturation (94-97) % Hemoglobin (11.4-16.0) gm/dL Sodium (137-145) mmol/L Potassium (3.5-5.1) mmol/L Chloride (98-107) mmol/L BUN (7-17) mg/dL Glucose (74-99) mg/dL POC Glucose (mg/dL) 140 H 139 H (70-110) mg/dL Calcium (8.4-10.2) mg/dL Crossmatch 11/14/24 11/14/24 11/14/24 Range/Units 05:09 05:32 06:00 WBC 12.7 H (3.8-10.6) k/uL RBC 2.14 L (3.80-5.40) m/uL Hgb 6.4 L* (11.4-16.0) gm/dL Hct 22.4 L (34.0-46.0) % MCV 104.7 H (80.0-100.0) fL MCHC 28.4 L (31.0-37.0) g/dL RDW 16.2 H (11.5-15.5) % Plt Count 594 H (150-450) k/uL Neutrophils # 11.4 H (1.3-7.7) k/uL Lymphocytes # 0.6 L (1.0-4.8) k/uL ABG pH 7.31 L (7.35-7.45) ABG pCO2 54 H (35-45) mmHg ABG HCO3 27 H (21-25) mmol/L ABG Total CO2 29 H (19-24) mmol/L ABG O2 Saturation 97.1 H (94-97) % Hemoglobin 6.3 L* (11.4-16.0) gm/dL Sodium (137-145) mmol/L Potassium (3.5-5.1) mmol/L Chloride (98-107) mmol/L BUN (7-17) mg/dL Glucose (74-99) mg/dL POC Glucose (mg/dL) 138 H (70-110) mg/dL Calcium (8.4-10.2) mg/dL Crossmatch 11/14/24 11/14/24 11/14/24 Range/Units 06:00 07:43 12:15 WBC (3.8-10.6) k/uL RBC (3.80-5.40) m/uL Hgb (11.4-16.0) gm/dL Hct (34.0-46.0) % MCV (80.0-100.0) fL MCHC (31.0-37.0) g/dL RDW (11.5-15.5) % Plt Count (150-450) k/uL Neutrophils # (1.3-7.7) k/uL Lymphocytes # (1.0-4.8) k/uL ABG pH (7.35-7.45) ABG pCO2 (35-45) mmHg ABG HCO3 (21-25) mmol/L ABG Total CO2 (19-24) mmol/L ABG O2 Saturation (94-97) % Hemoglobin (11.4-16.0) gm/dL Sodium 147 H (137-145) mmol/L Potassium 3.3 L (3.5-5.1) mmol/L Chloride 116 H (98-107) mmol/L BUN 26 H (7-17) mg/dL Glucose 133 H (74-99) mg/dL POC Glucose (mg/dL) 156 H (70-110) mg/dL Calcium 8.1 L (8.4-10.2) mg/dL Crossmatch See Detail Assessment and Plan (1) Pneumonia Current Visit: Yes Status: Acute Code(s): J18.9 - PNEUMONIA, UNSPECIFIED ORGANISM SNOMED Code(s): 506341570 (2) Abnormal CT scan, chest Current Visit: Yes Status: Acute Code(s): R93.89 - ABNORMAL FINDINGS ON DX IMAGING OF OTH BODY STRUCTURES SNOMED Code(s): 09962015905243355 (3) Leukocytosis Current Visit: No Status: Acute Code(s): D72.829 - ELEVATED WHITE BLOOD CELL COUNT, UNSPECIFIED SNOMED Code(s): 050969899 Plan: 1patient presented to hospital after the patient was found to be unresponsive at home concerning for possible drug overdose also noted to have significant finding on a chest x-ray and the CT concerning for possible pneumonia question of aspiration etiology in this patient has been around the hospital concerning for possible resistant gram-positive as well as gram-negative pathogen, the thoracic or cervical incision currently looks clean without cellulitis or any drainage 2-patient did have Pseudomonas aeruginosa in the sputum concerning for pneumonia possible aspiration, 3patient white count is down to 12,000 patient is afebrile hemodynamic stable continue with Zosyn and monitor clinical course closely Dictation was produced using [email or web address] dictation software. please excuse any grammatical, word or spelling errors. Time with Patient: Less than 30
--- NOTE | 2024-11-14 14:51 | P.PN ---
Subjective Progress Note Date: 11/11/24 Patient is evaluated today in follow up in the intensive care unit. Patient remains intubated on the mechanical ventilator with PEEP of 5 and FiO2 of 40%. Patient remains sedated. LFTs remain elevated, white blood cell count up to 38. Blood culture pending. Patient continues on IV Vancomycin and IV cefepime. ID following. Chest xray today reveals stable upper lobe interstitial opacities. Spinal surgery evaluated the patient felt the wound was noninfectious and healing well. Patients heart rate has been in the 120s was resumed on home medication of propanolol and has had improvement in the heart rate down to the 80s this afternoon. 11/08/2024 Patient is evaluated today in follow up in the ICU. Remains intubated and sedated on the mechanical ventilator with settings at PEEP of 5 and 40% FiO2. Chest xray today reveals interstitial opacities correlating for atypical pneumonia. There is extensive fixation hardware throughout the spine. White blood cell count of 18.7, hgb 7.0, MCV 105.6. Magnesium 1.2, potassium 3.3. Remains on IV cefepime, IV vancomycin. Has been started on systemic steroids. P atient with low grade temp of 99.8 today. Blood pressure low/normal. 11/09/2024 Patient is evaluated in the Intensive care unit, family at the bedside. Patient remains on the mechanical ventilator with PEEP of 5, FiO2 of 40%. Not ready for weaning today. Chest xray reveals interstitial opacities of the lungs correlate for atypical pneumonia. Sputum positive for pseudomonas. Patient remains on IV Cefepime. Also on IV solumedrol. Patient is sedated with propofol. Normal saline is running at 75 mls/hr. White blood cell count 17.9, hgb 8.1. Sodium 145, potassium 4.1, BUN 23, creatinine 0.67. Patient with low grade temp 99 axillary. 11/10/2024 Patient evaluated today in the intensive care unit. She remains sedated and intubated on mechanical ventilator settings of PEEP of 5 with FiO2 40%. She is awake and alert although her eyes are not tracking. She does remain on propofol. Chest x-ray today reveals interstitial opacities of the lungs are unchanged. Sputum culture shows Pseudomonas x 2. Her labs today reveal a white blood cell count of 18.2, hemoglobin 8.6, platelet count of 625, sodium of 145, potassium 3.8, BUN of 26, creatinine of 0.73, magnesium 2.1. Her blood glucose is controlled. She is having some residuals with the enteral feedings per the nurse they have been decreased to 20 mL/h and will monitor the residuals closely. Patient continues on IV cefepime IV Solu-Medrol. She is sedated with IV propofol she is on normal saline at 75 mL/h. Pulmonary is considering this patient for tracheostomy and PEG tube placement 11/11/2024 Patient evaluated in the ICU patient is unable to be weaned and continues to become agitated when weaning off the propofol. Residuals are better today and tube feeds up to 30 mls/hr and she is having bowel movements. Antibiotics have been transitioned to IV zosyn. ID following closely. Labs today reveal white blood cell count 19.2, hgb 8.3, sodium 144, potassium 4.0, BUN 27, creatinine 0.66. Chest xray today reveals stable findings. Unable to complete review of systems patient is currently intubated and sedated. Physical Examination GENERAL EXAM: Intubated, mechanically ventilated, thin 54-year-old female, on the ventilator, in no apparent distress. HEAD: Normocephalic. Normal reaction of pupils, equal size. THROAT: No erythema or exudates. NECK: No masses, no JVD. CHEST: No chest wall deformity. LUNGS: Equal air entry with no crackles, wheeze, rhonchi or dullness. CVS: S1 and S2 normal with no audible murmur, regular rhythm. ABDOMEN: No hepatosplenomegaly, normal bowel sounds, no guarding or rigidity. SPINE: No scoliosis or deformity. Surgical dressing dry and intact. SKIN: No rashes CENTRAL NERVOUS SYSTEM: Sedated, tone is normal in all 4 extremities. EXTREMITIES: There is no peripheral edema. No clubbing, no cyanosis. Peripheral pulses are intact. Assessment and Plan -Altered mental status from acute toxic and metabolic encephalopathy with episode of unresponsive, likely related to narcotics versus sepsis -Unable to rule out aspiration pneumonia -Pseudomonas pneumonia Healthcare acquired with septic shock POA -Acute hypoxic/hypercapnic respiratory failure; as indicated above; patient remains intubated with mechanical ventilation -Surgical site infection/wound dehiscence and Patient is status post surgery on 10/27/2024 for open treatment of a T8 fracture, irrigation and excisional debridement of thoracic spine wound measuring 10 x 7 x 4 cm, posterior lateral instrumented fusion of T7-T11 and cement augmentation of T8-T10 vertebral bodies; Orthopedic surgery consulted and felt the wound was noninfectious and healing well. -Leukocytosis/sepsis; continue with IV antibiotics as indicated above; patient has been pancultured -History of hypertension; propranolol 20 mg twice daily has been resumed; prazosin 2 mg twice daily on hold -Macroctyic anemia -Hyperlipidemia; currently not on any statin therapy -Hypothyroidism; levothyroxine 88 mcg daily -History of CAD -Chronic heart failure with preserved EF with no acute exacerbation -History of COPD/Asthma -PTSD/Bipolar/Borderline personality -Chronic nicotine use -Polysubstance use -Rectal prolapse -Hx seizure disorder -Gastroesophageal reflux DVT prophylaxis; SCDs/subcu heparin CODE STATUS; full code Plan -Patient was intubated and mechanically ventilated in ED -Urine drug screen positive for opiates, barbiturates, tricyclic antidepressants, benzodiazepines and marijuana concern for polysubstance use -Blood culture pending -Sputum culture preliminary revealing pseudomonas aeruginosa. -All narcotics are currently being held -Critical care service on board -Patient has been placed on IV antibiotics in form of cefepime and vancomycin -Continue IV Solu-Medrol -Enteral feedings have been decreased to 20 mL/h secondary to large volume residuals. She is having bowel movements -Antiseizure medications have been resumed -Monitor electrolytes and renal function -Critical care service will attempt to wean patient off sedation today. She may be a candidate for trach and PEG tube placement. The impression and plan of care has been dictated by Nichelle Loya, Nurse Practitioner as directed. Dr. Jayson MD I have performed a history and physical examination and medical decision making of this patient, discussed the same with the dictator, and agree with the dictators assessment and plan as written, documented as a scribe. Based on total visit time, I have performed more than 50% of this visit. Objective - Vital Signs Vital signs: Vital Signs Temp 98.8 F 11/11/24 04:00 Pulse 93 11/11/24 19:00 Resp 29 H 11/11/24 19:00 BP 138/87 11/11/24 19:00 Pulse Ox 99 11/11/24 19:00 FiO2 40 11/11/24 16:00 Intake & Output 11/11/24 11/11/24 11/12/24 06:59 18:59 06:59 Intake Total 2800.283 3262.665 105 Output Total 1125 820 130 Balance 382.333 612.665 -25 Weight 56.1 kg 56.1 kg Intake: IV 1010 810 75 0.9 @ KVO 20 Cefepime 2 gm In Sodium 100 Chloride 0.9% 100 ml @ 25 mls/hr IVPB Q12H [facility] Rx# :[id number] Sodium Chloride 0.9% 1, 890 810 75 000 ml @ 75 mls/hr IV . [id number] [facility] Rx#:[id number] Intake, IV Titration 167.333 182.665 Amount Cefepime 2 gm In Sodium 100 Chloride 0.9% 100 ml @ 25 mls/hr IVPB Q8HR [facility] Rx# :[id number] propofoL 1,000 mg In 167.333 82.665 Empty Bag 1 bag @ 15 MCG/ KG/MIN 4.291 mls/hr IV . [id number] [facility] Rx#:[id number] Tube Feeding 240 310 30 Other 90 130 Output: Urine 1125 820 130 Other: Voiding Method Indwelling Catheter Indwelling Catheter ABP, PAP, CO, CI - Last Documented Arterial Blood Pressure 112/84 - Labs CBC & Chem 7: 11/14/24 06:00 11/14/24 06:00 Labs: Abnormal Lab Results - Last 24 Hours (Table) 11/10/24 11/11/24 11/11/24 Range/Units 23:59 05:18 05:18 WBC 19.2 H (3.8-10.6) k/uL RBC 2.73 L (3.80-5.40) m/uL Hgb 8.3 L (11.4-16.0) gm/dL Hct 29.1 L (34.0-46.0) % MCV 106.7 H (80.0-100.0) fL MCHC 28.3 L (31.0-37.0) g/dL RDW 15.8 H (11.5-15.5) % Plt Count 627 H (150-450) k/uL Macrocytosis Marked A ABG pH (7.35-7.45) ABG pCO2 (35-45) mmHg ABG pO2 (83-108) mmHg ABG Total CO2 (19-24) mmol/L Hemoglobin (11.4-16.0) gm/dL Chloride 115 H (98-107) mmol/L BUN 27 H (7-17) mg/dL Glucose 120 H (74-99) mg/dL POC Glucose (mg/dL) 135 H (70-110) mg/dL 11/11/24 11/11/24 11/11/24 Range/Units 05:52 05:57 11:49 WBC (3.8-10.6) k/uL RBC (3.80-5.40) m/uL Hgb (11.4-16.0) gm/dL Hct (34.0-46.0) % MCV (80.0-100.0) fL MCHC (31.0-37.0) g/dL RDW (11.5-15.5) % Plt Count (150-450) k/uL Macrocytosis ABG pH 7.29 L (7.35-7.45) ABG pCO2 52 H (35-45) mmHg ABG pO2 79 L (83-108) mmHg ABG Total CO2 27 H (19-24) mmol/L Hemoglobin 7.5 L (11.4-16.0) gm/dL Chloride (98-107) mmol/L BUN (7-17) mg/dL Glucose (74-99) mg/dL POC Glucose (mg/dL) 120 H 122 H (70-110) mg/dL 11/11/24 Range/Units 17:26 WBC (3.8-10.6) k/uL RBC (3.80-5.40) m/uL Hgb (11.4-16.0) gm/dL Hct (34.0-46.0) % MCV (80.0-100.0) fL MCHC (31.0-37.0) g/dL RDW (11.5-15.5) % Plt Count (150-450) k/uL Macrocytosis ABG pH (7.35-7.45) ABG pCO2 (35-45) mmHg ABG pO2 (83-108) mmHg ABG Total CO2 (19-24) mmol/L Hemoglobin (11.4-16.0) gm/dL Chloride (98-107) mmol/L BUN (7-17) mg/dL Glucose (74-99) mg/dL POC Glucose (mg/dL) 130 H (70-110) mg/dL Assessment and Plan Time with Patient: Less than 30
--- NOTE | 2024-11-14 14:56 | P.PN ---
Subjective Progress Note Date: 11/14/24 Patient is evaluated today in follow up in the intensive care unit. Patient remains intubated on the mechanical ventilator with PEEP of 5 and FiO2 of 40%. Patient remains sedated. LFTs remain elevated, white blood cell count up to 38. Blood culture pending. Patient continues on IV Vancomycin and IV cefepime. ID following. Chest xray today reveals stable upper lobe interstitial opacities. Spinal surgery evaluated the patient felt the wound was noninfectious and healing well. Patients heart rate has been in the 120s was resumed on home medication of propanolol and has had improvement in the heart rate down to the 80s this afternoon. 11/08/2024 Patient is evaluated today in follow up in the ICU. Remains intubated and sedated on the mechanical ventilator with settings at PEEP of 5 and 40% FiO2. Chest xray today reveals interstitial opacities correlating for atypical pneumonia. There is extensive fixation hardware throughout the spine. White blood cell count of 18.7, hgb 7.0, MCV 105.6. Magnesium 1.2, potassium 3.3. Remains on IV cefepime, IV vancomycin. Has been started on systemic steroids. P atient with low grade temp of 99.8 today. Blood pressure low/normal. 11/09/2024 Patient is evaluated in the Intensive care unit, family at the bedside. Patient remains on the mechanical ventilator with PEEP of 5, FiO2 of 40%. Not ready for weaning today. Chest xray reveals interstitial opacities of the lungs correlate for atypical pneumonia. Sputum positive for pseudomonas. Patient remains on IV Cefepime. Also on IV solumedrol. Patient is sedated with propofol. Normal saline is running at 75 mls/hr. White blood cell count 17.9, hgb 8.1. Sodium 145, potassium 4.1, BUN 23, creatinine 0.67. Patient with low grade temp 99 axillary. 11/10/2024 Patient evaluated today in the intensive care unit. She remains sedated and intubated on mechanical ventilator settings of PEEP of 5 with FiO2 40%. She is awake and alert although her eyes are not tracking. She does remain on propofol. Chest x-ray today reveals interstitial opacities of the lungs are unchanged. Sputum culture shows Pseudomonas x 2. Her labs today reveal a white blood cell count of 18.2, hemoglobin 8.6, platelet count of 625, sodium of 145, potassium 3.8, BUN of 26, creatinine of 0.73, magnesium 2.1. Her blood glucose is controlled. She is having some residuals with the enteral feedings per the nurse they have been decreased to 20 mL/h and will monitor the residuals closely. Patient continues on IV cefepime IV Solu-Medrol. She is sedated with IV propofol she is on normal saline at 75 mL/h. Pulmonary is considering this patient for tracheostomy and PEG tube placement 11/11/2024 Patient evaluated in the ICU patient is unable to be weaned and continues to become agitated when weaning off the propofol. Residuals are better today and tube feeds up to 30 mls/hr and she is having bowel movements. Antibiotics have been transitioned to IV zosyn. ID following closely. Labs today reveal white blood cell count 19.2, hgb 8.3, sodium 144, potassium 4.0, BUN 27, creatinine 0.66. Chest xray today reveals stable findings. 11/14/2024 Patient is evaluated today in the intensive care unit. No family able to bring patients briviact up to the hospital so she has been started on oral keppra. Continues to be sedated and intubated on the mechanical ventilator. Chest xray today reveals no new acute pulmonary process. Hemoglobin 6.4 today and patient scheduled to receive 1 unit of PRBC. White blood cell count down to 12.7. Sodium 147, potassium 3.3., BUN 26, creatinine 0.69. General surgery was consulted for PEG/Trach. Unable to complete review of systems patient is currently intubated and sedated. Physical Examination GENERAL EXAM: Intubated, mechanically ventilated, thin 54-year-old female, on the ventilator, in no apparent distress. HEAD: Normocephalic. Normal reaction of pupils, equal size. THROAT: No erythema or exudates. NECK: No masses, no JVD. CHEST: No chest wall deformity. LUNGS: Equal air entry with no crackles, wheeze, rhonchi or dullness. CVS: S1 and S2 normal with no audible murmur, regular rhythm. ABDOMEN: No hepatosplenomegaly, normal bowel sounds, no guarding or rigidity. SPINE: No scoliosis or deformity. Surgical dressing dry and intact. SKIN: No rashes CENTRAL NERVOUS SYSTEM: Sedated, tone is normal in all 4 extremities. EXTREMITIES: There is no peripheral edema. No clubbing, no cyanosis. Peripheral pulses are intact. Assessment and Plan -Altered mental status from acute toxic and metabolic encephalopathy with episode of unresponsive, likely related to narcotics versus sepsis -Unable to rule out aspiration pneumonia -Pseudomonas pneumonia Healthcare acquired with septic shock POA -Acute hypoxic/hypercapnic respiratory failure; as indicated above; patient remains intubated with mechanical ventilation -Surgical site infection/wound dehiscence and Patient is status post surgery on 10/27/2024 for open treatment of a T8 fracture, irrigation and excisional debridement of thoracic spine wound measuring 10 x 7 x 4 cm, posterior lateral instrumented fusion of T7-T11 and cement augmentation of T8-T10 vertebral bodies; Orthopedic surgery consulted and felt the wound was noninfectious and healing well. -Leukocytosis/sepsis; continue with IV antibiotics as indicated above; patient has been pancultured -History of hypertension; propranolol 20 mg twice daily has been resumed; prazosin 2 mg twice daily on hold -Macroctyic anemia -Hyperlipidemia; currently not on any statin therapy -Hypothyroidism; levothyroxine 88 mcg daily -History of CAD -Chronic heart failure with preserved EF with no acute exacerbation -History of COPD/Asthma -PTSD/Bipolar/Borderline personality -Chronic nicotine use -Polysubstance use -Rectal prolapse -Hx seizure disorder -Gastroesophageal reflux DVT prophylaxis; SCDs/subcu heparin CODE STATUS; full code Plan -Patient was intubated and mechanically ventilated in ED -Urine drug screen positive for opiates, barbiturates, tricyclic antidepressants, benzodiazepines and marijuana concern for polysubstance use -Blood culture negative so far -Sputum culture revealing pseudomonas aeruginosa. x2 -All narcotics are currently being held -Critical care service on board -Patient continues on IV antibiotics in the form of IV zosyn. -Continue IV Solu-Medrol -Residuals are improved and at about 100 mls and patient continues on enteral feedings at goal and tolerating -Antiseizure medications have been resumed; we do not carry briviact so patient was transitioned over to [facility]. -Monitor electrolytes and renal function -Patient to receive 1 unit of PRBC today -General surgery consulted for trach/PEG tube placement The impression and plan of care has been dictated by Nichelle Loya, Nurse Practitioner as directed. Dr. Jayson MD I have performed a history and physical examination and medical decision making of this patient, discussed the same with the dictator, and agree with the dictators assessment and plan as written, documented as a scribe. Based on total visit time, I have performed more than 50% of this visit. Objective - Vital Signs Vital signs: Vital Signs Temp 98.5 F 11/14/24 13:48 Pulse 87 11/14/24 13:48 Resp 30 H 11/14/24 13:48 BP 141/73 11/14/24 13:48 Pulse Ox 98 11/14/24 13:48 FiO2 40 11/14/24 12:00 Intake & Output 11/13/24 11/14/24 11/14/24 18:59 06:59 18:59 Intake Total 2078.442 1666 1392.056 Output Total 1355 1175 825 Balance 723.442 491 567.056 Weight 58.6 kg Intake: IV 1196 996 556 0.9 @ KVO 60 60 10 Dextrose 5%-0.45% NaCl 1, 150 000 ml @ 75 mls/hr IV . [id number] [facility] Rx#:[id number] Piperacillin-Tazobactam 3 200 .375 gm In Sodium Chloride 0.9% 100 ml @ 25 mls/hr IVPB Q8HR [facility] Rx# :[id number] Sodium Chloride 0.9% 1, 900 900 375 000 ml @ 75 mls/hr IV . [id number] [facility] Rx#:[id number] pressure bag 36 36 21 Intake, IV Titration 262.442 100 91.056 Amount propofoL 1,000 mg In 262.442 100 91.056 Empty Bag 1 bag @ 15 MCG/ KG/MIN 4.291 mls/hr IV . [id number] [facility] Rx#:[id number] Tube Feeding 530 540 315 Blood Product 310 Rc As-1 Unit 310 [id number] Other 90 30 120 Output: Urine 1355 1175 825 Other: Voiding Method Indwelling Catheter Indwelling Catheter ABP, PAP, CO, CI - Last Documented Arterial Blood Pressure 137/68 - Labs CBC & Chem 7: 11/14/24 06:00 11/14/24 06:00 Labs: Abnormal Lab Results - Last 24 Hours (Table) 11/13/24 11/13/24 11/14/24 Range/Units 18:07 23:16 05:09 WBC (3.8-10.6) k/uL RBC (3.80-5.40) m/uL Hgb (11.4-16.0) gm/dL Hct (34.0-46.0) % MCV (80.0-100.0) fL MCHC (31.0-37.0) g/dL RDW (11.5-15.5) % Plt Count (150-450) k/uL Neutrophils # (1.3-7.7) k/uL Lymphocytes # (1.0-4.8) k/uL ABG pH (7.35-7.45) ABG pCO2 (35-45) mmHg ABG HCO3 (21-25) mmol/L ABG Total CO2 (19-24) mmol/L ABG O2 Saturation (94-97) % Hemoglobin (11.4-16.0) gm/dL Sodium (137-145) mmol/L Potassium (3.5-5.1) mmol/L Chloride (98-107) mmol/L BUN (7-17) mg/dL Glucose (74-99) mg/dL POC Glucose (mg/dL) 140 H 139 H 138 H (70-110) mg/dL Calcium (8.4-10.2) mg/dL Crossmatch 11/14/24 11/14/24 11/14/24 Range/Units 05:32 06:00 06:00 WBC 12.7 H (3.8-10.6) k/uL RBC 2.14 L (3.80-5.40) m/uL Hgb 6.4 L* (11.4-16.0) gm/dL Hct 22.4 L (34.0-46.0) % MCV 104.7 H (80.0-100.0) fL MCHC 28.4 L (31.0-37.0) g/dL RDW 16.2 H (11.5-15.5) % Plt Count 594 H (150-450) k/uL Neutrophils # 11.4 H (1.3-7.7) k/uL Lymphocytes # 0.6 L (1.0-4.8) k/uL ABG pH 7.31 L (7.35-7.45) ABG pCO2 54 H (35-45) mmHg ABG HCO3 27 H (21-25) mmol/L ABG Total CO2 29 H (19-24) mmol/L ABG O2 Saturation 97.1 H (94-97) % Hemoglobin 6.3 L* (11.4-16.0) gm/dL Sodium 147 H (137-145) mmol/L Potassium 3.3 L (3.5-5.1) mmol/L Chloride 116 H (98-107) mmol/L BUN 26 H (7-17) mg/dL Glucose 133 H (74-99) mg/dL POC Glucose (mg/dL) (70-110) mg/dL Calcium 8.1 L (8.4-10.2) mg/dL Crossmatch 11/14/24 11/14/24 Range/Units 07:43 12:15 WBC (3.8-10.6) k/uL RBC (3.80-5.40) m/uL Hgb (11.4-16.0) gm/dL Hct (34.0-46.0) % MCV (80.0-100.0) fL MCHC (31.0-37.0) g/dL RDW (11.5-15.5) % Plt Count (150-450) k/uL Neutrophils # (1.3-7.7) k/uL Lymphocytes # (1.0-4.8) k/uL ABG pH (7.35-7.45) ABG pCO2 (35-45) mmHg ABG HCO3 (21-25) mmol/L ABG Total CO2 (19-24) mmol/L ABG O2 Saturation (94-97) % Hemoglobin (11.4-16.0) gm/dL Sodium (137-145) mmol/L Potassium (3.5-5.1) mmol/L Chloride (98-107) mmol/L BUN (7-17) mg/dL Glucose (74-99) mg/dL POC Glucose (mg/dL) 156 H (70-110) mg/dL Calcium (8.4-10.2) mg/dL Crossmatch See Detail Assessment and Plan Time with Patient: Less than 30
[2024-11-14] MEDS: levETIRAcetam 500 MG TAB PO SCH (17:25)
[2024-11-14 18:25] LABS: Glucose,Whole Blood 139 mg/dL (70-110)
[2024-11-14 21:41] LABS: Anisocytosis Slight; HCT 27.4 % (34.0-46.0); Hypochromasia Marked; MCH 28.9 pg (25.0-35.0); MCHC 29.2 g/dL (31.0-37.0); Macrocytosis Slight; Platelet Count 561 k/uL (150-450); Poikilocytosis Slight; RBC 2.77 m/uL (3.80-5.40); WBC 18.3 k/uL (3.8-10.6)
[2024-11-15 00:15] LABS: Glucose,Whole Blood 131 mg/dL (70-110)
[2024-11-15 05:00] LABS: Anisocytosis Slight; Basophils % (A) 0 %; Eosinophils # (A) 0.1 k/uL (0-0.7); Eosinophils % (A) 1 %; HCT 30.4 % (34.0-46.0); HGB 8.7 gm/dL (11.4-16.0); Hypochromasia Marked; Lymphocytes # (A) 0.7 k/uL (1.0-4.8); Lymphocytes % (A) 3 %; MCH 28.5 pg (25.0-35.0); MCHC 28.7 g/dL (31.0-37.0); MCV 99.1 fL (80.0-100.0); Macrocytosis Slight; Mean Platelet Volume 7.7; Monocytes # (A) 0.5 k/uL (0-1.0); Monocytes % (A) 2 %; Neutrophils # (A) 20.4 k/uL (1.3-7.7); Neutrophils % (A) 93 %; Platelet Count 661 k/uL (150-450); Poikilocytosis Slight; RBC 3.07 m/uL (3.80-5.40); RDW 18.5 % (11.5-15.5); WBC 21.9 k/uL (3.8-10.6)
[2024-11-15 05:05] LABS: ABG Base Excess -0.2 mmol/L; ABG HCO3 27 mmol/L (21-25); ABG Oxygen Saturation 96.1 % (94-97); ABG PCO2 57 mmHg (35-45); ABG PH 7.28 (7.35-7.45); ABG PO2 80 mmHg (83-108); ABG TCO2 29 mmol/L (19-24)
[2024-11-15 05:09] LABS: African American GFR (CKD) >90 (>60 ml/min/1.73 sqM); Anion Gap 4 mmol/L; Blood Urea Nitrogen 22 mg/dL (7-17); Calcium 8.6 mg/dL (8.4-10.2); Carbon Dioxide 29 mmol/L (22-30); Chloride 114 mmol/L (98-107); Glucose 129 mg/dL (74-99); Magnesium 1.9 mg/dL (1.6-2.3); Non-African American GFR(CKD) >90 (>60 ml/min/1.73 sqM); Potassium 3.8 mmol/L (3.5-5.1); Sodium 147 mmol/L (137-145)
[2024-11-15 05:38] LABS: Allen Test Performed? no
--- NOTE | 2024-11-15 06:04 | XR ---
EXAMINATION TYPE: XR chest 1V portable DATE OF EXAM: 11/15/2024 CLINICAL INDICATION: Female, 54 years old with history of mechanical ventilation, progress study. Sh ortness of breath TECHNIQUE: Single AP portable semiupright view of the chest is obtained. COMPARISON: Chest x-ray from one day earlier and older studies. FINDINGS: Stable endotracheal tube. Orogastric tube tip less well seen on current study. Stable left subclavian central venous catheter. Persistent slight increased interstitial markings bilaterally. No new focal airspace opacity, pleural effusion, or pneumothorax is seen bilaterally. Cardiac silhouette size is stable and within normal l imits. Extensive surgical change to the visualized spine is redemonstrated. This makes evaluation sub optimal. IMPRESSION: No new acute pulmonary process. Distal portion of orogastric tube is not well seen on cur rent study. [facility], , 11/15/2024 6:01 AM
[2024-11-15 06:37] LABS: Glucose,Whole Blood 134 mg/dL (70-110)
[2024-11-15] MEDS: MAGNESIUM SULFATE-D5W PMX 1 GM in DEXTROSE/WATER 1 100ML.BAG IVPB ONE (07:44)
[2024-11-15] MEDS: POTASSIUM BICARBONATE/CIT AC 20 MEQ TABLET.EFF NG-TUBE SCH (08:41)
[2024-11-15] MEDS: DEXTROSE 5% IN WATER 1,000 ML IV SCH (11:04)
[2024-11-15] MEDS ORDERED: fentaNYL (PF) 50 MCG/ML 2 ML AMP ONE (11:46)
[2024-11-15] MEDS ORDERED: MIDAZOLAM 2 MG/2 ML VIAL ONE (11:46)
[2024-11-15] MEDS ORDERED: ROCURONIUM 10 MG/ML (5 ML VIAL) IV ONE (11:46)
[2024-11-15] MEDS ORDERED: HYDROmorphone (PF) 1 MG/ML ONE (11:46)
[2024-11-15] MEDS: LACTATED RINGERS 1,000 ML IV ONE (11:51)
--- NOTE | 2024-11-15 13:00 | P.OP ---
Date of Procedure: 11/15/24 Procedure(s) Performed: PREOPERATIVE DIAGNOSIS: Respiratory failure, malnutrition POSTOPERATIVE DIAGNOSIS: Same PROCEDURE: Tracheostomy, EGD with PEG tube placement SURGEON: Anuel EBL: Minimal ANESTHESIA: General COMPLICATIONS: None OPERATIVE PROCEDURE: Patient was placed in the operative table in the supine position. A shoulder roll was utilized. The neck was prepped and draped in usual sterile fashion. A small cervical incision was created using the scalpel. Dissection through the subcutaneous fat and platysma layer took place using electrocautery. A prominent vessel was divided using 3-0 silk ties. The underlying strap muscles were divided in the midline. The thyroid isthmus was divided using electrocautery as well. No bleeding was seen. The trachea was easily identified at this time. The endotracheal tube was advanced and the balloon was reinflated. The patient was preoxygenated with 100% FiO2. The FiO2 was then brought down to room air. Once the end title oxygen level was less than 35 a vertical tracheostomy was created using the electrocautery. This went through the second and third tracheal ring. The patient was again preoxygenated with 100% FiO2. The curriculum coach was utilized. Carefully the endotracheal tube was withdrawn just proximal to our tracheostomy. The 7.5-Uzbek Shiley nonfenestrated tracheostomy catheter with inner cannula was advanced under direct visualization into the trachea. This was then connected to the ventilator. Positive end tidal CO2 was confirmed. The tracheal ties were utilized. The trach was sutured to the skin superiorly using 2 separate 0 silk sutures. The skin was closed using 3-0 Vicryl sutures. A dressing was applied. The patient was kept in the supine position on the operating room table. The Olympus gastroscope was inserted into the oropharynx and passed under direct visualization to the region of the duodenum. No obstruction was seen. The pylorus was widely patent. The stomach was carefully inspected. The stomach was fully insufflated with air. The abdominal wall was inspected. The light was seen shining through the abdominal wall in the left upper quadrant. This site was chosen for PEG tube placement. The area was prepped in the usual sterile fashion. A small vertical incision was made using the scalpel. The Seldinger needle was advanced into the lumen of the stomach the wire was advanced. The wire was grasped with an endoscopic snare. The wire was pulled through the oropharynx. The catheter was then threaded over the guidewire and the guidewire and catheter were pulled anteriorly until the hub of the PEG tube catheter was seated against the anterior wall the stomach. The circular bolster was applied and tightened down. The endoscope was then readvanced into the stomach. There was no evidence of any bleeding and there was appropriate tightness on the bolster. The catheter was cut appropriately. The dual port feeding adapter was applied. DISPOSITION: Stable to ICU
[2024-11-15 13:54] LABS: Glucose,Whole Blood 103 mg/dL (70-110)
--- NOTE | 2024-11-15 16:10 | P.PN ---
Subjective Progress Note Date: 11/15/24 Progress Note Date: 11/13/24 This is a 54-year-old female patient with a known history of COPD, hypertension, hyperlipidemia, coronary disease, congestive heart failure, DVT, hypothyroidism, seizure disorder, multiple previous back surgeries. She had most recently undergone a C2-T7 posterior lateral fusion on 09/09/2024. She developed a significant infection and wound dehiscence and was back here in the hospital and had undergone irrigation and excisional debridement of a thoracic spine wound on 10/27/2024 and discharged to home on 11/02/2024. She was brought back here to the emergency room earlier this morning after being found obtunded and unresponsive by her . She was intubated here in the emergency department. Chest x- ray revealed bilateral upper interstitial opacities concerning for pneumonia versus fluid volume overload. Evidence of COPD. Endotracheal tube and nasogastric tubes in position. CT scan of the brain revealed no acute intrac ranial process. CT angiogram ruled out pulmonary embolism. There is bilateral upper lobe reticular opacities with right greater than left raising concerns for infection. Few foci of gas identified within the left supraclavicular region and left anterior chest wall possibly with venous vasculature. CT scan of the thoracic spine reveals extensive postsurgical changes. No gross evidence of complication. White count 9.0. Hemoglobin 10.6. Platelets 800,000. INR 0.9. Sodium 144. Potassium 4.0. Bicarb 27. BUN 16. Creatinine 0.96. Glucose 111. Lactic acid 3.0. AST 86. ALT 39. Troponin 0.044. Urinalysis clean. Drug urine screen is positive for opiates, barbiturates, antidepressants, benzodiazepines and marijuana. Initial arterial blood gases on 100% FiO2 revealed a PaO2 of 34, pCO2 89 and a pH of 7.07. Follow-up blood gases on the mechanical ventilator on 100% revealed a PaO2 greater than 420, pCO2 61 and a pH of 7.20. Her current vent settings are assist-control mode at a rate of 26, tidal volume 320 and FiO2 50% and a PEEP of 5. She is sedated on propofol at 50 mcg/kg/h. She has been initiated on vancomycin and cefepime. Received Narcan without improvement initially. She received 2 L of fluid resuscitation. 11/07/2024: Patient is a 54 year old female who was admmited to the ICU on 11/06/2024 with acute hypoxic respiratory failure. She arrived to ED unresponsive. Initially thought it was narcotic overdose. Did not improve with narcan. Ultimately intubated and mechanically ventillated on 11/06 . Patient tested positive for opiates, barbiturates, tricyclic's, benzodiazepines, and marijuana. Her underlying problems include COPD, hypertension, hyperlipidemia, coronary disease, congestive heart failure, DVT, hypothyroidism, seizure disorder, multiple previous back surgeries, T2 vertebral fracture with revision of C2-T7 posterior lateral fusion on 09/09/2024 patient developed surgical wound infection and dehiscence of wound. Patient was seen today 11/07/2024. Remains intubated and mechanically ventillated on assist controlled at a rate of 30, tidal volume 320, FiO2 50%, PEEP of 5. ABG: pH 7.17/pCO2 66 /pO2 70. Currently on propofol 50 mcg/kg/min and normal saline 0.9% at 125 cc/hr. No acute events overnight. Repeat CXR showing bilateral pleural and interstitial opacities. Labs WBC 38.9 Hgb 8.2, platelets 659, CO2 21, anion gap 11, BUN 16, creatinine 0.96 CRP 26.5. Patient currently on IV vancomycin dosed by pharmacy and cefepime 2 g IVPB every 12 hours. Blood cultures are pending. MRSA/MSSA screening pending. Currently not on any tube feeding. The patient is seen on 11/08/2024 in room 262. She remains on volume assist- control, rate 30, tidal volume 320, FiO2 40%, PEEP of 5. Most recent blood gases show pO2 of 110, pCO2 of 56, pH is 7.24. The patient is on propofol at 50 mcg/kg/min, saline at 125 cc an hour which we will decrease to 75cc an hour d/t suspected dillutional anemia, and vancomycin and cefepime. Tube feedings vital HP 40 cc/hr which is goal. Blood cultures showing no growth. Left brachial ART line was placed last night. All labs, x-rays, and medications are reviewed. CXR showing bilateral interstitial opacities. White count 18.7, hemoglobin 7.0, platelet count 505,000. BUN was 19, creatinine was 0.85. We will continue to follow make recommendations along the way. All labs, x-rays, and medications are reviewed. The patient has a history of underlying COPD, hypertension, hyperlipidemia, coronary disease, heart failure, DVT, hypothyroidism, seizure disorder, and multiple surgical procedures on her cervical and thoracic spine. Prognosis is guarded. The patient is seen on 11/09/2024 in room 262. She remains on volume assist- control, rate 30, tidal volume 320, FiO2 40%, PEEP of 5. Most recent blood gases show pO2 of 89, pCO2 of 56, pH is 7.24. The patient is on propofol at 20 mcg/kg/min, saline at 75cc. Remains on vancomycin and cefepime. Yesterday was placed IV solumedrol 40 mg q8hr, but will increase to 60 mg q6hr. Tube feedings vital HP 40 cc/hr which is goal. Blood cultures showing no growth. Sputum cultures showing pseudomonas. MRSA/MSSA nares negative. Yesterday she did not tolerate being off sedation. Only lasted for 20 minutes due to her peak pressui ng and being tachypnic. She was given dilaudid yesterday which caused her to be hypotensive so she was subsequently put on levofed but has since been off it since 530a. All labs, x-rays, and medications are reviewed. CXR still showing bilateral interstitial opacities likely from atypical pneumonia. White count 17.9, hemoglobin 8.1, platelet count 572,000. BUN was 23, creatinine was 0.67. AST 35, ALT 58. We will continue to follow make recommendations along the way. All labs, x-rays, and medications are reviewed. The patient has a history of underlying COPD, hypertension, hyperlipidemia, coronary disease, heart failure, DVT, hypothyroidism, seizure disorder, and multiple surgical procedures on her cervical and thoracic spine. Prognosis is guarded. The patient is seen on 11/10/2024 in room 262. She remains on volume assist- control, rate 30, tidal volume 320, FiO2 40%, PEEP of 5. Most recent blood gases show pO2 of 78, pCO2 of 52, pH is 7.29. The patient is on propofol at 50 mcg/kg/min, saline at 75cc/hr. Remains on vancomycin and cefepime. Remains on IV solumedrol 60 mg q6hr. Tube feedings vital HP 20 cc/hr with a goal of 40. Yesterday she did not tolerate being off sedation. She was following some commands, but became agitated and hypertensive. All labs, x-rays, and medications are reviewed. CXR still showing bilateral interstitial opacities likely from atypical pneumonia. White count 18.2, hemoglobin 8.6, platelet count 625,000. BUN was 26, creatinine was 0.73. We will continue to follow make recommendations along the way. All labs, x-rays, and medications are reviewed. The patient has a history of underlying COPD, hypertension, hyperlipidemia, coronary disease, heart failure, DVT, hypothyroidism, seizure disorder, and multiple surgical procedures on her cervical and thoracic spine. Will attempt to wean off sedation today. May end up being a candidate for trach and PEG. Prognosis is guarded. The patient is seen on 11/12/2024 in room 262. She remains on volume assist- control, rate 30, tidal volume 320, FiO2 40%, PEEP of 5. Most recent blood gases show pO2 of 89, pCO2 of 54, pH is 7.29. The patient had a large differ ence in her peak and plateau pressure, suggesting increased airways resistance. Airway resistance calculation was 17 cm H20/L/sec. Dynamic compliance 11.8 mL/cm of H20. Static compliance 27 mL/cm H20. The patient is on propofol at 50 mcg/kg/min, saline at 70cc/hr. Sputum cultures showing pseudomonas. Cefepime was switched to Zosyn. Remains on IV solumedrol 60 mg q6hr. Tube feedings vital HP 30 cc/hr with a goal of 45. Yesterday she did not tolerate being off sedation. She became agitated and hypertensive. She has been on ventillator since 11/06. All labs, x-rays, and medications are reviewed. CXR showing diffuse pulmonary vascular congestation. White count 14.6, hemoglobin 7.5, platelet count 598,000. BUN was 26, creatinine was 0.77. We will continue to follow make recommendations along the way. All labs, x-rays, and medications are reviewed. The patient has a history of underlying COPD, hypertension, hyperlipidemia, coronary disease, heart failure, DVT, hypothyroidism, seizure disorder, and multiple surgical procedures on her cervical and thoracic spine. Will attempt to wean off sedation today. May end up being a candidate for trach and PEG. Prognosis is guarded. The patient is seen today November 13, 2024 in follow-up in the intensive care unit. She remains intubated and on the mechanical ventilator and assist-control mode with a rate of 30, tidal volume 320, FiO2 40% and a PEEP of 5. Morning blood gases revealed a PaO2 of 76, pCO2 53 and a pH of 7.31. She is sedated on propofol at 50 mcg/kg/min. Receiving normal saline at 75 mL/h. Being nourished with vital HP at 40 mL/h with a goal of 45 mL/h. Chest x-ray shows no change in diffuse interstitial process possibly chronic in nature. No airspace consolidation, pleural effusion or pneumothorax. Sputum culture is positive for Pseudomonas aeruginosa. Count 14.2. Hemoglobin 6.8. Platelets 584. Sodium 146. Potassium 3.6. Bicarb 28. BUN 24. Creatinine 0.7. Glucose 124. She is continued on DuoNeb inhalations, Pulmicort and performance inhalations, Solu- Medrol. Antibiotics in the form of Zosyn. On 11/14/2024, patient is being seen and follow-up. Is a very complicated case of patient with COPD who underwent an extensive spine surgery. The patient initially had a C2 T7 posterior lateral fusion that was done on 09/09/2024. The patient had a T2 vertebral fracture. Subsequently, she was discharged home to be readmitted for wound dehiscence and suspected infection. The patient underwent irrigation and excisional debridement of the thoracic spine wound and T7 T11 fusion with cement augmentation of T8 T10 vertebral bodies. The patient was discharged home to be readmitted for altered mentation and diminished level of consciousness. This was suspected to be related to excessive narcotic use along with COPD. As such, the patient was intubated and placed on mechanical ventilation the patient has failed to wean since. She has failed sedation holiday. She becomes quite restless and asynchronous with mechanical ventilator. Furthermore, she was found to have fullness in her lungs and a chest x-ray from today showing no acute pulmonary filtrates. This could be a colonization versus a true infection as the patient's initial chest x-ray at time of admission was showing extensive opacities in the lungs consistent with pneumonia. Noted does infiltrate improved pressure to 1 in the right upper lobe. The patient is currently on IV Zosyn. This morning, the patient is on assist-control mode of mechanical ventilation at rate of 30, tidal volume of 320, FiO2 of 40% with a PEEP of 5. Blood gas showed pH of 7.31 with a pCO2 of 54 and pO2 of 90. She is sedated on propofol running at 50 mcg/kg/min. She is on normal saline at rate of 75 cc an hour. Fluid balance is +1.2 L over the past 24 hours. She is on vital HP running at 45 cc an hour. White cell count of 12.7, hemoglobin is at 6.4 and a platelet count of 594. Sodium levels at 147, potassium is at 3.3, BUN 26 with a creatinine of 0.69. She remains on DuoNeb updrafts. She remains on IV Solu-Medrol 60 mg every 6 hours. She remains on IV Zosyn. On 11/15/2024, the patient is being seen for a follow-up. The patient remains intubated on mechanical ventilator and the patient is awaiting a tracheostomy and a PEG tube insertion today. This morning, the patient is on a propofol running at 50 mcg/kg/min. The patient is also on D5 half-normal saline at rate of 75 cc an hour. The patient is hemodynamically stable. The patient's blood gases from today showed a pH of 7.28 with a pCO2 of 57 and pO2 of 80 and this was done on a assist-control mode at rate of 30, tidal volume of 320, FiO2 40% with a PEEP of 5. Chest x-ray shows no acute cardiopulmonary process. ET tube is in good location. NG tube is in good location. Extensive surgical changes seen involving the thoracic spine. The white cell count of 21, hemoglobin is at 8.7 and a platelet count of 661. Sodium is at 147, chloride 114, bicarb is 29, BUN 22 with a creatinine of 0.6. Blood sugar today is at 103. This plan is to proceed with a PEG and a tracheostomy tube insertion today. This will be done by general surgery. The patient remains on IV Zosyn. Objective - Vital Signs Vital signs: Vital Signs Temp 99.3 F 11/15/24 08:00 Pulse 90 11/15/24 09:00 Resp 30 H 11/15/24 09:00 BP 141/73 11/14/24 13:48 Pulse Ox 97 11/15/24 09:00 FiO2 40 11/15/24 08:30 Intake & Output 11/14/24 11/15/24 11/15/24 18:59 06:59 18:59 Intake Total 2260.056 1168 424.097 Output Total 1495 990 275 Balance 765.056 178 149.097 Weight 59.8 kg Intake: IV 1024 858 339 0.9 @ KVO 10 5 Dextrose 5%-0.45% NaCl 1, 600 825 225 000 ml @ 75 mls/hr IV . [id number] [facility] Rx#:[id number] Piperacillin-Tazobactam 3 100 .375 gm In Sodium Chloride 0.9% 100 ml @ 25 mls/hr IVPB Q8HR [facility] Rx# :[id number] Sodium Chloride 0.9% 1, 375 000 ml @ 75 mls/hr IV . [id number] [facility]I Rx#:[id number] pressure bag 39 33 9 Intake, IV Titration 191.056 100 85.097 Amount propofoL 1,000 mg In 191.056 100 85.097 Empty Bag 1 bag @ 15 MCG/ KG/MIN 4.291 mls/hr IV . [id number] [facility] Rx#:[id number] Tube Feeding 585 180 Blood Product 310 Rc As-1 Unit 310 [id number] Other 150 30 Output: Urine 1495 990 275 Other: Voiding Method Indwelling Catheter Indwelling Catheter ABP, PAP, CO, CI - Last Documented Arterial Blood Pressure 162/81 - Exam GENERAL EXAM: Intubated, sedated 54-year-old female on the mechanical ventilator, in no apparent distress. HEAD: Normocephalic. EYES: Normal reaction of pupils, equal size. NOSE: Clear with pink turbinates. THROAT: Oral endotracheal and gastric tube secured in place. No erythema or exudates. NECK: No masses, no JVD. CHEST: No chest wall deformity. LUNGS: Equal air entry with no crackles, wheeze, rhonchi or dullness. CVS: S1 and S2 normal with no audible murmur, regular rhythm. ABDOMEN: No hepatosplenomegaly, normal bowel sounds, no guarding or rigidity. SPINE: No scoliosis or deformity SKIN: No rashes CENTRAL NERVOUS SYSTEM: Sedated, tone is normal in all 4 extremities. EXTREMITIES: There is no peripheral edema. No clubbing, no cyanosis. Peripheral pulses are intact. - Labs CBC & Chem 7: 11/15/24 04:50 11/15/24 04:50 Labs: Abnormal Lab Results - Last 24 Hours (Table) 11/14/24 11/14/24 11/14/24 Range/Units 07:43 12:15 18:23 WBC (3.8-10.6) k/uL RBC (3.80-5.40) m/uL Hgb (11.4-16.0) gm/dL Hct (34.0-46.0) % MCHC (31.0-37.0) g/dL RDW (11.5-15.5) % Plt Count (150-450) k/uL Neutrophils # (1.3-7.7) k/uL Lymphocytes # (1.0-4.8) k/uL ABG pH (7.35-7.45) ABG pCO2 (35-45) mmHg ABG pO2 (83-108) mmHg ABG HCO3 (21-25) mmol/L ABG Total CO2 (19-24) mmol/L Hemoglobin (11.4-16.0) gm/dL Sodium (137-145) mmol/L Chloride (98-107) mmol/L BUN (7-17) mg/dL Glucose (74-99) mg/dL POC Glucose (mg/dL) 156 H 139 H (70-110) mg/dL Crossmatch See Detail 11/14/24 11/15/24 11/15/24 Range/Units 20:12 00:14 04:50 WBC 18.3 H 21.9 H (3.8-10.6) k/uL RBC 2.77 L 3.07 L (3.80-5.40) m/uL Hgb 8.0 L D 8.7 L (11.4-16.0) gm/dL Hct 27.4 L 30.4 L (34.0-46.0) % MCHC 29.2 L 28.7 L (31.0-37.0) g/dL RDW 19.0 H 18.5 H (11.5-15.5) % Plt Count 561 H 661 H (150-450) k/uL Neutrophils # 20.4 H (1.3-7.7) k/uL Lymphocytes # 0.7 L (1.0-4.8) k/uL ABG pH (7.35-7.45) ABG pCO2 (35-45) mmHg ABG pO2 (83-108) mmHg ABG HCO3 (21-25) mmol/L ABG Total CO2 (19-24) mmol/L Hemoglobin (11.4-16.0) gm/dL Sodium (137-145) mmol/L Chloride (98-107) mmol/L BUN (7-17) mg/dL Glucose (74-99) mg/dL POC Glucose (mg/dL) 131 H (70-110) mg/dL Crossmatch 11/15/24 11/15/24 11/15/24 Range/Units 04:50 05:03 06:35 WBC (3.8-10.6) k/uL RBC (3.80-5.40) m/uL Hgb (11.4-16.0) gm/dL Hct (34.0-46.0) % MCHC (31.0-37.0) g/dL RDW (11.5-15.5) % Plt Count (150-450) k/uL Neutrophils # (1.3-7.7) k/uL Lymphocytes # (1.0-4.8) k/uL ABG pH 7.28 L (7.35-7.45) ABG pCO2 57 H (35-45) mmHg ABG pO2 80 L (83-108) mmHg ABG HCO3 27 H (21-25) mmol/L ABG Total CO2 29 H (19-24) mmol/L Hemoglobin 8.7 L (11.4-16.0) gm/dL Sodium 147 H (137-145) mmol/L Chloride 114 H (98-107) mmol/L BUN 22 H (7-17) mg/dL Glucose 129 H (74-99) mg/dL POC Glucose (mg/dL) 134 H (70-110) mg/dL Crossmatch Assessment and Plan Plan: Acute exacerbation of COPD with pseudomonal pneumonia. The patient had diffuse bilateral pulmonary filtrates pressure in the right upper lobe which improved on subsequent chest x-ray and the patient remains on IV Zosyn. Overall respiratory status is unchanged. Chest x-ray is clear and there is no airspace disease or consolidation. Acute on chronic hypoxic and hypercapnic respiratory failure due to above, remains intubated on mechanical ventilator, has failed to wean and heart failure is multifactorial. She has advanced COPD with poor pulmonary reserve due to her advanced COPD and extensive spinal surgery which has affected her ability to do adequate pulmonary toileting. Awaiting tracheostomy tube and PEG tube insertion today. This will be done by general surgery. Advanced COPD Altered mental status, obtunded requiring intubation and mechanical ventilatory support on November 06, 2024. T 8 fracture and the patient had spine surgery. The patient was discharged from the hospital following surgery on 10/27/2024 for open treatment of a T8 fracture, irrigation and excisional debridement of thoracic spine wound measuring 10 x 7 x 4 cm, posterior lateral instrumented fusion of T7-T11 and cement augmentation of T8-T10 vertebral bodies. T2 vertebral fracture with revision of C2-T7 posterior lateral fusion on 09/09/2024 Surgical site infection and wound dehiscence, wound and blood cultures revealed no growth Acute leukocytosis, improved Acute on chronic anemia with a hemoglobin of 6.4, no evidence of any acute bleeding Rectal prolapse History of hypertension History of hyperlipidemia History of coronary artery disease History of heart failure with preserved ejection fraction based on echocardiogram from July 2023 History of gastroesophageal reflux disease History of seizure disorder History of hypothyroidism History of anxiety/depression/PTSD Plan: Continue vent support, increase the tidal volume to 350 and dropped respiratory rate down to 24. Obtain a follow-up blood gas. This will be a very difficult extubation due to comorbidities mentioned above. The patient was better served off with a tracheostomy and a chronic slow wean. The plan is to proceed with tracheostomy tube and PEG tube insertion today. Continue propofol for sedation Continue Zosyn Continue DuoNeb inhalations, Solu-Medrol Continue Pulmicort and Perforomist inhalations Lovenox for DVT prophylaxis Continue with daily interruption of sedation Unable to tolerate weaning trials We will continue to follow make further recommendations based on her clinical status Critical care evaluation, 32 minutes Time with Patient: Greater than 30
[2024-11-15 17:39] LABS: Glucose,Whole Blood 129 mg/dL (70-110)
[2024-11-15 23:32] LABS: Glucose,Whole Blood 148 mg/dL (70-110)
[2024-11-16 04:35] LABS: ABG HCO3 28 mmol/L (21-25); ABG Oxygen Saturation 95.3 % (94-97); ABG PCO2 58 mmHg (35-45); ABG PO2 76 mmHg (83-108); ABG TCO2 30 mmol/L (19-24)
[2024-11-16 04:51] LABS: African American GFR (CKD) >90 (>60 ml/min/1.73 sqM); Anion Gap 3 mmol/L; Blood Urea Nitrogen 17 mg/dL (7-17); Calcium 8.5 mg/dL (8.4-10.2); Carbon Dioxide 29 mmol/L (22-30); Chloride 108 mmol/L (98-107); Glucose 139 mg/dL (74-99); Non-African American GFR(CKD) >90 (>60 ml/min/1.73 sqM); Potassium 3.6 mmol/L (3.5-5.1); Sodium 140 mmol/L (137-145)
[2024-11-16 05:23] LABS: Allen Test Performed? no
[2024-11-16 05:38] LABS: Glucose,Whole Blood 119 mg/dL (70-110)
[2024-11-16 05:39] LABS: Anisocytosis Slight; Basophils % (A) 0 %; Eosinophils % (A) 0 %; HCT 30.4 % (34.0-46.0); HGB 8.7 gm/dL (11.4-16.0); Hypochromasia Marked; Lymphocytes # (A) 0.7 k/uL (1.0-4.8); Lymphocytes % (A) 4 %; MCH 28.3 pg (25.0-35.0); MCHC 28.7 g/dL (31.0-37.0); MCV 98.7 fL (80.0-100.0); Macrocytosis Slight; Mean Platelet Volume 7.8; Monocytes # (A) 0.3 k/uL (0-1.0); Monocytes % (A) 2 %; Neutrophils # (A) 15.4 k/uL (1.3-7.7); Neutrophils % (A) 93 %; Platelet Count 687 k/uL (150-450); Poikilocytosis Slight; RBC 3.08 m/uL (3.80-5.40); RDW 18.5 % (11.5-15.5); WBC 16.6 k/uL (3.8-10.6)
--- NOTE | 2024-11-16 05:47 | XR ---
EXAMINATION TYPE: XR chest 1V portable DATE OF EXAM: 11/16/2024 CLINICAL INDICATION: Female, 54 years old with history of mechanical ventilation, progress study. Sh ortness of breath. TECHNIQUE: Single AP portable semiupright view of the chest is obtained. COMPARISON: Chest x-ray from one day earlier and older studies. FINDINGS: Interval removal of endotracheal and orogastric tubes. New Tracheostomy tube is noted. Stable left sided subclavian central venous catheter. Improved increased interstitial markings bilaterally. No new focal airspace opacity, pleural effusion , or pneumothorax is seen bilaterally. Cardiac silhouette size is stable and within normal limits. Ex tensive surgical change to the visualized spine is redemonstrated. This makes evaluation suboptimal. Several old left lateral rib fractures are redemonstrated. IMPRESSION: No new acute pulmonary process. Improved bilateral interstitial edema noted. [facility], , 11/16/2024 5:45 AM
[2024-11-16] MEDS: POTASSIUM CHLORIDE 10 MEQ in WATER FOR INJECTION 1 100ML.BAG IVPB SCH (07:04)
--- NOTE | 2024-11-16 10:00 | P.PN ---
Subjective Progress Note Date: 11/15/24 Patient is evaluated today in follow up in the intensive care unit. Patient remains intubated on the mechanical ventilator with PEEP of 5 and FiO2 of 40%. Patient remains sedated. LFTs remain elevated, white blood cell count up to 38. Blood culture pending. Patient continues on IV Vancomycin and IV cefepime. ID following. Chest xray today reveals stable upper lobe interstitial opacities. Spinal surgery evaluated the patient felt the wound was noninfectious and healing well. Patients heart rate has been in the 120s was resumed on home medication of propanolol and has had improvement in the heart rate down to the 80s this afternoon. 11/08/2024 Patient is evaluated today in follow up in the ICU. Remains intubated and sedated on the mechanical ventilator with settings at PEEP of 5 and 40% FiO2. Chest xray today reveals interstitial opacities correlating for atypical pneumonia. There is extensive fixation hardware throughout the spine. White blood cell count of 18.7, hgb 7.0, MCV 105.6. Magnesium 1.2, potassium 3.3. Remains on IV cefepime, IV vancomycin. Has been started on systemic steroids. P atient with low grade temp of 99.8 today. Blood pressure low/normal. 11/09/2024 Patient is evaluated in the Intensive care unit, family at the bedside. Patient remains on the mechanical ventilator with PEEP of 5, FiO2 of 40%. Not ready for weaning today. Chest xray reveals interstitial opacities of the lungs correlate for atypical pneumonia. Sputum positive for pseudomonas. Patient remains on IV Cefepime. Also on IV solumedrol. Patient is sedated with propofol. Normal saline is running at 75 mls/hr. White blood cell count 17.9, hgb 8.1. Sodium 145, potassium 4.1, BUN 23, creatinine 0.67. Patient with low grade temp 99 axillary. 11/10/2024 Patient evaluated today in the intensive care unit. She remains sedated and intubated on mechanical ventilator settings of PEEP of 5 with FiO2 40%. She is awake and alert although her eyes are not tracking. She does remain on propofol. Chest x-ray today reveals interstitial opacities of the lungs are unchanged. Sputum culture shows Pseudomonas x 2. Her labs today reveal a white blood cell count of 18.2, hemoglobin 8.6, platelet count of 625, sodium of 145, potassium 3.8, BUN of 26, creatinine of 0.73, magnesium 2.1. Her blood glucose is controlled. She is having some residuals with the enteral feedings per the nurse they have been decreased to 20 mL/h and will monitor the residuals closely. Patient continues on IV cefepime IV Solu-Medrol. She is sedated with IV propofol she is on normal saline at 75 mL/h. Pulmonary is considering this patient for tracheostomy and PEG tube placement 11/11/2024 Patient evaluated in the ICU patient is unable to be weaned and continues to become agitated when weaning off the propofol. Residuals are better today and tube feeds up to 30 mls/hr and she is having bowel movements. Antibiotics have been transitioned to IV zosyn. ID following closely. Labs today reveal white blood cell count 19.2, hgb 8.3, sodium 144, potassium 4.0, BUN 27, creatinine 0.66. Chest xray today reveals stable findings. 11/14/2024 Patient is evaluated today in the intensive care unit. No family able to bring patients briviact up to the hospital so she has been started on oral keppra. Continues to be sedated and intubated on the mechanical ventilator. Chest xray today reveals no new acute pulmonary process. Hemoglobin 6.4 today and patient scheduled to receive 1 unit of PRBC. White blood cell count down to 12.7. Sodium 147, potassium 3.3., BUN 26, creatinine 0.69. General surgery was consulted for PEG/Trach. 11/15/2024 Patient is evaluated in follow-up remains in the ICU she is sedated and intubated; on the mechanical ventilator with an FiO2 of 30% PEEP of 5. Patient will be going for trach and PEG tube placement. Chest x-ray today reveals no acute new pulmonary process. White blood cell count is 21.9, hemoglobin 8.7, sodium of 147 potassium 3.8, BUN 22 creatinine 0.64 magnesium 1.9. Unable to complete review of systems patient is currently intubated and sedated. Physical Examination GENERAL EXAM: Intubated, mechanically ventilated, thin 54-year-old female, on the ventilator, in no apparent distress. HEAD: Normocephalic. Normal reaction of pupils, equal size. THROAT: No erythema or exudates. NECK: No masses, no JVD. CHEST: No chest wall deformity. LUNGS: Equal air entry with no crackles, wheeze, rhonchi or dullness. CVS: S1 and S2 normal with no audible murmur, regular rhythm. ABDOMEN: No hepatosplenomegaly, normal bowel sounds, no guarding or rigidity. SPINE: No scoliosis or deformity. Surgical dressing dry and intact. SKIN: No rashes CENTRAL NERVOUS SYSTEM: Sedated, tone is normal in all 4 extremities. EXTREMITIES: There is no peripheral edema. No clubbing, no cyanosis. Peripheral pulses are intact. Assessment and Plan -Altered mental status from acute toxic and metabolic encephalopathy with episode of unresponsive, likely related to narcotics versus sepsis -Unable to rule out aspiration pneumonia -Pseudomonas pneumonia Healthcare acquired with septic shock POA -Acute hypoxic/hypercapnic respiratory failure; as indicated above; patient remains intubated with mechanical ventilation -Surgical site infection/wound dehiscence and Patient is status post surgery on 10/27/2024 for open treatment of a T8 fracture, irrigation and excisional debridement of thoracic spine wound measuring 10 x 7 x 4 cm, posterior lateral instrumented fusion of T7-T11 and cement augmentation of T8-T10 vertebral bodies; Orthopedic surgery consulted and felt the wound was noninfectious and healing well. -Leukocytosis/sepsis; continue with IV antibiotics as indicated above; patient has been pancultured -Hypernatremia -History of hypertension; propranolol 20 mg twice daily has been resumed; prazosin 2 mg twice daily on hold -Macroctyic anemia -Hyperlipidemia; currently not on any statin therapy -Hypothyroidism; levothyroxine 88 mcg daily -History of CAD -Chronic heart failure with preserved EF with no acute exacerbation -History of COPD/Asthma -PTSD/Bipolar/Borderline personality -Chronic nicotine use -Polysubstance use -Rectal prolapse -Hx seizure disorder -Gastroesophageal reflux DVT prophylaxis; SCDs/subcu heparin CODE STATUS; full code Plan -Patient was intubated and mechanically ventilated in ED -Urine drug screen positive for opiates, barbiturates, tricyclic antidepressants, benzodiazepines and marijuana concern for polysubstance use -Blood culture negative so far -Sputum culture revealing pseudomonas aeruginosa. x2 -All narcotics are currently being held -Critical care service on board -Patient continues on IV antibiotics in the form of IV zosyn. -Patient remains on IV Solu-Medrol -Residuals are improved and at about 100 mls and patient continues on enteral feedings at goal and tolerating -Antiseizure medications have been resumed; we do not carry briviact so patient was transitioned over to [facility]. -Monitor electrolytes and renal function -Patient is status post 1 unit of packed red blood cells with improvement in her hemoglobin Will transition fluids over to D5 with water at 75 mL/h because of the hypernatremia -General surgery consulted for trach/PEG tube placement The impression and plan of care has been dictated by Nichelle Loya, Nurse Practitioner as directed. Dr. Jayson MD I have performed a history and physical examination and medical decision making of this patient, discussed the same with the dictator, and agree with the dictators assessment and plan as written, documented as a scribe. Based on total visit time, I have performed more than 50% of this visit. Objective - Vital Signs Vital signs: Vital Signs Temp 98.8 F 11/16/24 04:00 Pulse 71 11/16/24 06:00 Resp 24 11/16/24 06:00 BP 129/76 11/16/24 06:00 Pulse Ox 100 11/16/24 06:00 FiO2 40 11/16/24 04:00 Intake & Output 11/15/24 11/16/24 11/16/24 18:59 06:59 18:59 Intake Total 6585.693 5144.853 Output Total 940 700 Balance 806.097 393.853 Weight 59.8 kg 61.3 kg Intake: IV 1441 1014 0.9 @ KVO 5 Dextrose 5% in Water 1, 525 975 000 ml @ 75 mls/hr IV . [id number] [facility] Rx#:[id number] Dextrose 5%-0.45% NaCl 1, 375 000 ml @ 75 mls/hr IV . [id number] [facility] Rx#:[id number] Piperacillin-Tazobactam 3 200 .375 gm In Sodium Chloride 0.9% 100 ml @ 25 mls/hr IVPB Q8HR [facility] Rx# :[id number] pressure bag 36 39 Intake, IV Titration 185.097 79.853 Amount propofoL 1,000 mg In 185.097 79.853 Empty Bag 1 bag @ 15 MCG/ KG/MIN 4.291 mls/hr IV . [id number] [facility] Rx#:[id number] Other 120 Output: Urine 930 700 Estimated Blood Loss 10 Other: Voiding Method Indwelling Catheter Indwelling Catheter ABP, PAP, CO, CI - Last Documented Arterial Blood Pressure 107/77 - Labs CBC & Chem 7: 11/16/24 04:26 11/16/24 04:26 Labs: Abnormal Lab Results - Last 24 Hours (Table) 11/15/24 11/15/24 11/16/24 Range/Units 17:38 23:30 04:26 WBC 16.6 H (3.8-10.6) k/uL RBC 3.08 L (3.80-5.40) m/uL Hgb 8.7 L (11.4-16.0) gm/dL Hct 30.4 L (34.0-46.0) % MCHC 28.7 L (31.0-37.0) g/dL RDW 18.5 H (11.5-15.5) % Plt Count 687 H (150-450) k/uL Neutrophils # 15.4 H (1.3-7.7) k/uL Lymphocytes # 0.7 L (1.0-4.8) k/uL ABG pH (7.35-7.45) ABG pCO2 (35-45) mmHg ABG pO2 (83-108) mmHg ABG HCO3 (21-25) mmol/L ABG Total CO2 (19-24) mmol/L Hemoglobin (11.4-16.0) gm/dL Chloride (98-107) mmol/L Glucose (74-99) mg/dL POC Glucose (mg/dL) 129 H 148 H (70-110) mg/dL 11/16/24 11/16/24 11/16/24 Range/Units 04:26 04:33 05:36 WBC (3.8-10.6) k/uL RBC (3.80-5.40) m/uL Hgb (11.4-16.0) gm/dL Hct (34.0-46.0) % MCHC (31.0-37.0) g/dL RDW (11.5-15.5) % Plt Count (150-450) k/uL Neutrophils # (1.3-7.7) k/uL Lymphocytes # (1.0-4.8) k/uL ABG pH 7.30 L (7.35-7.45) ABG pCO2 58 H (35-45) mmHg ABG pO2 76 L (83-108) mmHg ABG HCO3 28 H (21-25) mmol/L ABG Total CO2 30 H (19-24) mmol/L Hemoglobin 8.7 L (11.4-16.0) gm/dL Chloride 108 H (98-107) mmol/L Glucose 139 H (74-99) mg/dL POC Glucose (mg/dL) 119 H (70-110) mg/dL Assessment and Plan Time with Patient: Less than 30
[2024-11-16 12:13] LABS: Glucose,Whole Blood 101 mg/dL (70-110)
--- NOTE | 2024-11-16 13:05 | P.PN ---
Subjective Progress Note Date: 11/16/24 SURGICAL PROGRESS NOTE CHIEF COMPLAINT: Respiratory failure HISTORY OF PRESENT ILLNESS: Patient is postop day #1 status post tracheostomy and PEG tube placement. Patient has been started on tube feeds at 20 mL/h. Nursing staff reports patient is having bowel movements. She does have her chronic rectal prolapse. Afebrile. WBC is down from 21-16 PHYSICAL EXAM: VITAL SIGNS: Reviewed. GENERAL: Well-developed in no acute distress. HEENT: Tracheostomy site intact with clearish drainage ABDOMEN: Soft. Nondistended. Nontender. PEG tube site dressing clean dry and intact NEUROLOGIC: Alert and oriented. Cranial nerves II through XII grossly intact. ASSESSMENT: 1. Respiratory failure status post tracheostomy placement 2. Severe protein calorie malnutrition status post PEG tube placement PLAN: -Continue to titrate tube feedings -Continue ICU management -Continue supportive care Physician Admin Asst note has been reviewed by physician. Signing provider agrees with the documented findings, assessment, and plan of care. I have personally seen and examined the patient, reviewed the ROOF PAINTER /PAs history, exam and MDM and agree with the assessment and plan as written. Based on total visit time, I have performed more than 50% of the visit. As above: Patient doing fairly well. Seems more alert. Some mucousy drainage around tracheostomy. Begin tube feeds. Objective - Vital Signs Vital signs: Vital Signs Temp 99.8 F H 11/16/24 08:00 Pulse 84 11/16/24 12:53 Resp 24 11/16/24 11:00 BP 142/90 11/16/24 11:00 Pulse Ox 100 11/16/24 11:00 FiO2 40 11/16/24 11:44 Intake & Output 11/15/24 11/16/24 11/16/24 18:59 06:59 18:59 Intake Total 0734.339 0517.853 332 Output Total 940 700 325 Balance 806.097 393.853 7 Weight 59.8 kg 61.3 kg Intake: IV 1441 1014 162 0.9 @ KVO 5 Dextrose 5% in Water 1, 525 975 150 000 ml @ 75 mls/hr IV . [id number] [facility] Rx#:[id number] Dextrose 5%-0.45% NaCl 1, 375 000 ml @ 75 mls/hr IV . [id number] [facility] Rx#:[id number] Piperacillin-Tazobactam 3 200 .375 gm In Sodium Chloride 0.9% 100 ml @ 25 mls/hr IVPB Q8HR [facility] Rx# :[id number] pressure bag 36 39 12 Intake, IV Titration 185.097 79.853 Amount propofoL 1,000 mg In 185.097 79.853 Empty Bag 1 bag @ 15 MCG/ KG/MIN 4.291 mls/hr IV . [id number] [facility] Rx#:[id number] Tube Feeding 80 Other 120 90 Output: Urine 930 700 325 Estimated Blood Loss 10 Other: Voiding Method Indwelling Catheter Indwelling Catheter ABP, PAP, CO, CI - Last Documented Arterial Blood Pressure 108/80 - Labs CBC & Chem 7: 11/16/24 04:26 11/16/24 04:26 Labs: Abnormal Lab Results - Last 24 Hours (Table) 11/15/24 11/15/24 11/16/24 Range/Units 17:38 23:30 04:26 WBC 16.6 H (3.8-10.6) k/uL RBC 3.08 L (3.80-5.40) m/uL Hgb 8.7 L (11.4-16.0) gm/dL Hct 30.4 L (34.0-46.0) % MCHC 28.7 L (31.0-37.0) g/dL RDW 18.5 H (11.5-15.5) % Plt Count 687 H (150-450) k/uL Neutrophils # 15.4 H (1.3-7.7) k/uL Lymphocytes # 0.7 L (1.0-4.8) k/uL ABG pH (7.35-7.45) ABG pCO2 (35-45) mmHg ABG pO2 (83-108) mmHg ABG HCO3 (21-25) mmol/L ABG Total CO2 (19-24) mmol/L Hemoglobin (11.4-16.0) gm/dL Chloride (98-107) mmol/L Glucose (74-99) mg/dL POC Glucose (mg/dL) 129 H 148 H (70-110) mg/dL 11/16/24 11/16/24 11/16/24 Range/Units 04:26 04:33 05:36 WBC (3.8-10.6) k/uL RBC (3.80-5.40) m/uL Hgb (11.4-16.0) gm/dL Hct (34.0-46.0) % MCHC (31.0-37.0) g/dL RDW (11.5-15.5) % Plt Count (150-450) k/uL Neutrophils # (1.3-7.7) k/uL Lymphocytes # (1.0-4.8) k/uL ABG pH 7.30 L (7.35-7.45) ABG pCO2 58 H (35-45) mmHg ABG pO2 76 L (83-108) mmHg ABG HCO3 28 H (21-25) mmol/L ABG Total CO2 30 H (19-24) mmol/L Hemoglobin 8.7 L (11.4-16.0) gm/dL Chloride 108 H (98-107) mmol/L Glucose 139 H (74-99) mg/dL POC Glucose (mg/dL) 119 H (70-110) mg/dL
--- NOTE | 2024-11-16 15:51 | P.PN ---
Subjective Progress Note Date: 11/16/24 Patient is evaluated today in follow up in the intensive care unit. Patient remains intubated on the mechanical ventilator with PEEP of 5 and FiO2 of 40%. Patient remains sedated. LFTs remain elevated, white blood cell count up to 38. Blood culture pending. Patient continues on IV Vancomycin and IV cefepime. ID following. Chest xray today reveals stable upper lobe interstitial opacities. Spinal surgery evaluated the patient felt the wound was noninfectious and healing well. Patients heart rate has been in the 120s was resumed on home medication of propanolol and has had improvement in the heart rate down to the 80s this afternoon. 11/08/2024 Patient is evaluated today in follow up in the ICU. Remains intubated and sedated on the mechanical ventilator with settings at PEEP of 5 and 40% FiO2. Chest xray today reveals interstitial opacities correlating for atypical pneumonia. There is extensive fixation hardware throughout the spine. White blood cell count of 18.7, hgb 7.0, MCV 105.6. Magnesium 1.2, potassium 3.3. Remains on IV cefepime, IV vancomycin. Has been started on systemic steroids. P atient with low grade temp of 99.8 today. Blood pressure low/normal. 11/09/2024 Patient is evaluated in the Intensive care unit, family at the bedside. Patient remains on the mechanical ventilator with PEEP of 5, FiO2 of 40%. Not ready for weaning today. Chest xray reveals interstitial opacities of the lungs correlate for atypical pneumonia. Sputum positive for pseudomonas. Patient remains on IV Cefepime. Also on IV solumedrol. Patient is sedated with propofol. Normal saline is running at 75 mls/hr. White blood cell count 17.9, hgb 8.1. Sodium 145, potassium 4.1, BUN 23, creatinine 0.67. Patient with low grade temp 99 axillary. 11/10/2024 Patient evaluated today in the intensive care unit. She remains sedated and intubated on mechanical ventilator settings of PEEP of 5 with FiO2 40%. She is awake and alert although her eyes are not tracking. She does remain on propofol. Chest x-ray today reveals interstitial opacities of the lungs are unchanged. Sputum culture shows Pseudomonas x 2. Her labs today reveal a white blood cell count of 18.2, hemoglobin 8.6, platelet count of 625, sodium of 145, potassium 3.8, BUN of 26, creatinine of 0.73, magnesium 2.1. Her blood glucose is controlled. She is having some residuals with the enteral feedings per the nurse they have been decreased to 20 mL/h and will monitor the residuals closely. Patient continues on IV cefepime IV Solu-Medrol. She is sedated with IV propofol she is on normal saline at 75 mL/h. Pulmonary is considering this patient for tracheostomy and PEG tube placement 11/11/2024 Patient evaluated in the ICU patient is unable to be weaned and continues to become agitated when weaning off the propofol. Residuals are better today and tube feeds up to 30 mls/hr and she is having bowel movements. Antibiotics have been transitioned to IV zosyn. ID following closely. Labs today reveal white blood cell count 19.2, hgb 8.3, sodium 144, potassium 4.0, BUN 27, creatinine 0.66. Chest xray today reveals stable findings. 11/14/2024 Patient is evaluated today in the intensive care unit. No family able to bring patients briviact up to the hospital so she has been started on oral keppra. Continues to be sedated and intubated on the mechanical ventilator. Chest xray today reveals no new acute pulmonary process. Hemoglobin 6.4 today and patient scheduled to receive 1 unit of PRBC. White blood cell count down to 12.7. Sodium 147, potassium 3.3., BUN 26, creatinine 0.69. General surgery was consulted for PEG/Trach. 11/15/2024 Patient is evaluated in follow-up remains in the ICU she is sedated and intubated; on the mechanical ventilator with an FiO2 of 40% PEEP of 5. Patient will be going for trach and PEG tube placement. Chest x-ray today reveals no acute new pulmonary process. White blood cell count is 21.9, hemoglobin 8.7, sodium of 147 potassium 3.8, BUN 22 creatinine 0.64 magnesium 1.9. 11/16/2024 Patient is evaluated in follow-up remains in the intensive care unit. Patient is currently sedated with propofol she is currently intubated on mechanical ventilator with a FiO2 of 40% and a PEEP of 5. Patient underwent tracheostomy and PEG tube placement yesterday. Chest x-ray reveals no new acute process. Improved bilateral interstitial edema noted. Patient to be started on oral Lasix today. She continues on IV Zosyn. Her labs reveal a white blood cell count of 16.6, hemoglobin 8.7, sodium of 140, potassium 3.6, creatinine 0.64. Unable to complete review of systems patient is currently intubated and sedated. Physical Examination GENERAL EXAM: Intubated, mechanically ventilated, thin 54-year-old female, on the ventilator, in no apparent distress. Tracheostomy HEAD: Normocephalic. Normal reaction of pupils, equal size. THROAT: No erythema or exudates. NECK: No masses, no JVD. CHEST: No chest wall deformity. LUNGS: Equal air entry with no crackles, wheeze, rhonchi or dullness. CVS: S1 and S2 normal with no audible murmur, regular rhythm. ABDOMEN: No hepatosplenomegaly, normal bowel sounds, no guarding or rigidity. Peg tube in place. SPINE: No scoliosis or deformity. Surgical dressing dry and intact. SKIN: No rashes CENTRAL NERVOUS SYSTEM: Sedated, tone is normal in all 4 extremities. EXTREMITIES: There is no peripheral edema. No clubbing, no cyanosis. Periphera l pulses are intact. Assessment and Plan -Altered mental status from acute toxic and metabolic encephalopathy with episode of unresponsive, likely related to narcotics versus sepsis -Unable to rule out aspiration pneumonia -Pseudomonas pneumonia Healthcare acquired with septic shock POA -Acute hypoxic/hypercapnic respiratory failure; as indicated above; patient remains intubated with mechanical ventilation -Surgical site infection/wound dehiscence and Patient is status post surgery on 10/27/2024 for open treatment of a T8 fracture, irrigation and excisional debridement of thoracic spine wound measuring 10 x 7 x 4 cm, posterior lateral instrumented fusion of T7-T11 and cement augmentation of T8-T10 vertebral bodies; Orthopedic surgery consulted and felt the wound was noninfectious and healing well. -Leukocytosis/sepsis; continue with IV antibiotics as indicated above; patient has been pancultured -Hypernatremia -History of hypertension; propranolol 20 mg twice daily has been resumed; prazosin 2 mg twice daily on hold -Macroctyic anemia -Hyperlipidemia; currently not on any statin therapy -Hypothyroidism; levothyroxine 88 mcg daily -History of CAD -Chronic heart failure with preserved EF with no acute exacerbation -History of COPD/Asthma -PTSD/Bipolar/Borderline personality -Chronic nicotine use -Polysubstance use -Rectal prolapse -Hx seizure disorder -Gastroesophageal reflux DVT prophylaxis; SCDs/subcu heparin CODE STATUS; full code Plan -Patient was intubated and mechanically ventilated in ED -Urine drug screen positive for opiates, barbiturates, tricyclic antidepre ssants, benzodiazepines and marijuana concern for polysubstance use -Blood culture negative so far -Sputum culture revealing pseudomonas aeruginosa. x2 -All narcotics are currently being held -Critical care service on board -Patient continues on IV antibiotics in the form of IV zosyn. -Patient remains on IV Solu-Medrol -Residuals are improved and at about 100 mls and patient continues on enteral feedings at goal and tolerating -Antiseizure medications have been resumed; we do not carry briviact so patient was transitioned over to keppra. -Monitor electrolytes and renal function -Patient is status post 1 unit of packed red blood cells with improvement in her hemoglobin Will transition fluids over to D5 with water at 75 mL/h because of the hypernatremia which sodium has normalized to 140 -Status post PEG/Trach The impression and plan of care has been dictated by Nichelle Loya, Nurse Practitioner as directed. Dr. Jayson MD I have performed a history and physical examination and medical decision making of this patient, discussed the same with the dictator, and agree with the d ictators assessment and plan as written, documented as a scribe. Based on total visit time, I have performed more than 50% of this visit. Objective - Vital Signs Vital signs: Vital Signs Temp 99.8 F H 11/16/24 08:00 Pulse 90 11/16/24 09:24 Resp 24 11/16/24 09:00 BP 127/83 11/16/24 09:00 Pulse Ox 98 11/16/24 09:00 FiO2 40 11/16/24 08:54 Intake & Output 11/15/24 11/16/24 11/16/24 18:59 06:59 18:59 Intake Total 8609.870 6791.853 286 Output Total 940 700 125 Balance 806.097 393.853 161 Weight 59.8 kg 61.3 kg Intake: IV 1441 1014 156 0.9 @ KVO 5 Dextrose 5% in Water 1, 525 975 150 000 ml @ 75 mls/hr IV . [id number] [facility] Rx#:[id number] Dextrose 5%-0.45% NaCl 1, 375 000 ml @ 75 mls/hr IV . [id number] [facility] Rx#:[id number] Piperacillin-Tazobactam 3 200 .375 gm In Sodium Chloride 0.9% 100 ml @ 25 mls/hr IVPB Q8HR [facility] Rx# :[id number] pressure bag 36 39 6 Intake, IV Titration 185.097 79.853 Amount propofoL 1,000 mg In 185.097 79.853 Empty Bag 1 bag @ 15 MCG/ KG/MIN 4.291 mls/hr IV . [id number] [facility] Rx#:[id number] Tube Feeding 40 Other 120 90 Output: Urine 930 700 125 Estimated Blood Loss 10 Other: Voiding Method Indwelling Catheter Indwelling Catheter ABP, PAP, CO, CI - Last Documented Arterial Blood Pressure 108/80 - Labs CBC & Chem 7: 11/16/24 04:26 11/16/24 04:26 Labs: Abnormal Lab Results - Last 24 Hours (Table) 11/15/24 11/15/24 11/16/24 Range/Units 17:38 23:30 04:26 WBC 16.6 H (3.8-10.6) k/uL RBC 3.08 L (3.80-5.40) m/uL Hgb 8.7 L (11.4-16.0) gm/dL Hct 30.4 L (34.0-46.0) % MCHC 28.7 L (31.0-37.0) g/dL RDW 18.5 H (11.5-15.5) % Plt Count 687 H (150-450) k/uL Neutrophils # 15.4 H (1.3-7.7) k/uL Lymphocytes # 0.7 L (1.0-4.8) k/uL ABG pH (7.35-7.45) ABG pCO2 (35-45) mmHg ABG pO2 (83-108) mmHg ABG HCO3 (21-25) mmol/L ABG Total CO2 (19-24) mmol/L Hemoglobin (11.4-16.0) gm/dL Chloride (98-107) mmol/L Glucose (74-99) mg/dL POC Glucose (mg/dL) 129 H 148 H (70-110) mg/dL 11/16/24 11/16/24 11/16/24 Range/Units 04:26 04:33 05:36 WBC (3.8-10.6) k/uL RBC (3.80-5.40) m/uL Hgb (11.4-16.0) gm/dL Hct (34.0-46.0) % MCHC (31.0-37.0) g/dL RDW (11.5-15.5) % Plt Count (150-450) k/uL Neutrophils # (1.3-7.7) k/uL Lymphocytes # (1.0-4.8) k/uL ABG pH 7.30 L (7.35-7.45) ABG pCO2 58 H (35-45) mmHg ABG pO2 76 L (83-108) mmHg ABG HCO3 28 H (21-25) mmol/L ABG Total CO2 30 H (19-24) mmol/L Hemoglobin 8.7 L (11.4-16.0) gm/dL Chloride 108 H (98-107) mmol/L Glucose 139 H (74-99) mg/dL POC Glucose (mg/dL) 119 H (70-110) mg/dL Assessment and Plan Time with Patient: Less than 30
--- NOTE | 2024-11-16 16:43 | P.PN ---
Subjective Progress Note Date: 11/16/24 Progress Note Date: 11/13/24 This is a 54-year-old female patient with a known history of COPD, hypertension, hyperlipidemia, coronary disease, congestive heart failure, DVT, hypothyroidism, seizure disorder, multiple previous back surgeries. She had most recently undergone a C2-T7 posterior lateral fusion on 09/09/2024. She developed a significant infection and wound dehiscence and was back here in the hospital and had undergone irrigation and excisional debridement of a thoracic spine wound on 10/27/2024 and discharged to home on 11/02/2024. She was brought back here to the emergency room earlier this morning after being found obtunded and unresponsive by her . She was intubated here in the emergency department. Chest x- ray revealed bilateral upper interstitial opacities concerning for pneumonia versus fluid volume overload. Evidence of COPD. Endotracheal tube and nasogastric tubes in position. CT scan of the brain revealed no acute intrac ranial process. CT angiogram ruled out pulmonary embolism. There is bilateral upper lobe reticular opacities with right greater than left raising concerns for infection. Few foci of gas identified within the left supraclavicular region and left anterior chest wall possibly with venous vasculature. CT scan of the thoracic spine reveals extensive postsurgical changes. No gross evidence of complication. White count 9.0. Hemoglobin 10.6. Platelets 800,000. INR 0.9. Sodium 144. Potassium 4.0. Bicarb 27. BUN 16. Creatinine 0.96. Glucose 111. Lactic acid 3.0. AST 86. ALT 39. Troponin 0.044. Urinalysis clean. Drug urine screen is positive for opiates, barbiturates, antidepressants, benzodiazepines and marijuana. Initial arterial blood gases on 100% FiO2 revealed a PaO2 of 34, pCO2 89 and a pH of 7.07. Follow-up blood gases on the mechanical ventilator on 100% revealed a PaO2 greater than 420, pCO2 61 and a pH of 7.20. Her current vent settings are assist-control mode at a rate of 26, tidal volume 320 and FiO2 50% and a PEEP of 5. She is sedated on propofol at 50 mcg/kg/h. She has been initiated on vancomycin and cefepime. Received Narcan without improvement initially. She received 2 L of fluid resuscitation. 11/07/2024: Patient is a 54 year old female who was admmited to the ICU on 11/06/2024 with acute hypoxic respiratory failure. She arrived to ED unresponsive. Initially thought it was narcotic overdose. Did not improve with narcan. Ultimately intubated and mechanically ventillated on 11/06 . Patient tested positive for opiates, barbiturates, tricyclic's, benzodiazepines, and marijuana. Her underlying problems include COPD, hypertension, hyperlipidemia, coronary disease, congestive heart failure, DVT, hypothyroidism, seizure disorder, multiple previous back surgeries, T2 vertebral fracture with revision of C2-T7 posterior lateral fusion on 09/09/2024 patient developed surgical wound infection and dehiscence of wound. Patient was seen today 11/07/2024. Remains intubated and mechanically ventillated on assist controlled at a rate of 30, tidal volume 320, FiO2 50%, PEEP of 5. ABG: pH 7.17/pCO2 66 /pO2 70. Currently on propofol 50 mcg/kg/min and normal saline 0.9% at 125 cc/hr. No acute events overnight. Repeat CXR showing bilateral pleural and interstitial opacities. Labs WBC 38.9 Hgb 8.2, platelets 659, CO2 21, anion gap 11, BUN 16, creatinine 0.96 CRP 26.5. Patient currently on IV vancomycin dosed by pharmacy and cefepime 2 g IVPB every 12 hours. Blood cultures are pending. MRSA/MSSA screening pending. Currently not on any tube feeding. The patient is seen on 11/08/2024 in room 262. She remains on volume assist- control, rate 30, tidal volume 320, FiO2 40%, PEEP of 5. Most recent blood gases show pO2 of 110, pCO2 of 56, pH is 7.24. The patient is on propofol at 50 mcg/kg/min, saline at 125 cc an hour which we will decrease to 75cc an hour d/t suspected dillutional anemia, and vancomycin and cefepime. Tube feedings vital HP 40 cc/hr which is goal. Blood cultures showing no growth. Left brachial ART line was placed last night. All labs, x-rays, and medications are reviewed. CXR showing bilateral interstitial opacities. White count 18.7, hemoglobin 7.0, platelet count 505,000. BUN was 19, creatinine was 0.85. We will continue to follow make recommendations along the way. All labs, x-rays, and medications are reviewed. The patient has a history of underlying COPD, hypertension, hyperlipidemia, coronary disease, heart failure, DVT, hypothyroidism, seizure disorder, and multiple surgical procedures on her cervical and thoracic spine. Prognosis is guarded. The patient is seen on 11/09/2024 in room 262. She remains on volume assist- control, rate 30, tidal volume 320, FiO2 40%, PEEP of 5. Most recent blood gases show pO2 of 89, pCO2 of 56, pH is 7.24. The patient is on propofol at 20 mcg/kg/min, saline at 75cc. Remains on vancomycin and cefepime. Yesterday was placed IV solumedrol 40 mg q8hr, but will increase to 60 mg q6hr. Tube feedings vital HP 40 cc/hr which is goal. Blood cultures showing no growth. Sputum cultures showing pseudomonas. MRSA/MSSA nares negative. Yesterday she did not tolerate being off sedation. Only lasted for 20 minutes due to her peak pressui ng and being tachypnic. She was given dilaudid yesterday which caused her to be hypotensive so she was subsequently put on levofed but has since been off it since 530a. All labs, x-rays, and medications are reviewed. CXR still showing bilateral interstitial opacities likely from atypical pneumonia. White count 17.9, hemoglobin 8.1, platelet count 572,000. BUN was 23, creatinine was 0.67. AST 35, ALT 58. We will continue to follow make recommendations along the way. All labs, x-rays, and medications are reviewed. The patient has a history of underlying COPD, hypertension, hyperlipidemia, coronary disease, heart failure, DVT, hypothyroidism, seizure disorder, and multiple surgical procedures on her cervical and thoracic spine. Prognosis is guarded. The patient is seen on 11/10/2024 in room 262. She remains on volume assist- control, rate 30, tidal volume 320, FiO2 40%, PEEP of 5. Most recent blood gases show pO2 of 78, pCO2 of 52, pH is 7.29. The patient is on propofol at 50 mcg/kg/min, saline at 75cc/hr. Remains on vancomycin and cefepime. Remains on IV solumedrol 60 mg q6hr. Tube feedings vital HP 20 cc/hr with a goal of 40. Yesterday she did not tolerate being off sedation. She was following some commands, but became agitated and hypertensive. All labs, x-rays, and medications are reviewed. CXR still showing bilateral interstitial opacities likely from atypical pneumonia. White count 18.2, hemoglobin 8.6, platelet count 625,000. BUN was 26, creatinine was 0.73. We will continue to follow make recommendations along the way. All labs, x-rays, and medications are reviewed. The patient has a history of underlying COPD, hypertension, hyperlipidemia, coronary disease, heart failure, DVT, hypothyroidism, seizure disorder, and multiple surgical procedures on her cervical and thoracic spine. Will attempt to wean off sedation today. May end up being a candidate for trach and PEG. Prognosis is guarded. The patient is seen on 11/12/2024 in room 262. She remains on volume assist- control, rate 30, tidal volume 320, FiO2 40%, PEEP of 5. Most recent blood gases show pO2 of 89, pCO2 of 54, pH is 7.29. The patient had a large differ ence in her peak and plateau pressure, suggesting increased airways resistance. Airway resistance calculation was 17 cm H20/L/sec. Dynamic compliance 11.8 mL/cm of H20. Static compliance 27 mL/cm H20. The patient is on propofol at 50 mcg/kg/min, saline at 70cc/hr. Sputum cultures showing pseudomonas. Cefepime was switched to Zosyn. Remains on IV solumedrol 60 mg q6hr. Tube feedings vital HP 30 cc/hr with a goal of 45. Yesterday she did not tolerate being off sedation. She became agitated and hypertensive. She has been on ventillator since 11/06. All labs, x-rays, and medications are reviewed. CXR showing diffuse pulmonary vascular congestation. White count 14.6, hemoglobin 7.5, platelet count 598,000. BUN was 26, creatinine was 0.77. We will continue to follow make recommendations along the way. All labs, x-rays, and medications are reviewed. The patient has a history of underlying COPD, hypertension, hyperlipidemia, coronary disease, heart failure, DVT, hypothyroidism, seizure disorder, and multiple surgical procedures on her cervical and thoracic spine. Will attempt to wean off sedation today. May end up being a candidate for trach and PEG. Prognosis is guarded. The patient is seen today November 13, 2024 in follow-up in the intensive care unit. She remains intubated and on the mechanical ventilator and assist-control mode with a rate of 30, tidal volume 320, FiO2 40% and a PEEP of 5. Morning blood gases revealed a PaO2 of 76, pCO2 53 and a pH of 7.31. She is sedated on propofol at 50 mcg/kg/min. Receiving normal saline at 75 mL/h. Being nourished with vital HP at 40 mL/h with a goal of 45 mL/h. Chest x-ray shows no change in diffuse interstitial process possibly chronic in nature. No airspace consolidation, pleural effusion or pneumothorax. Sputum culture is positive for Pseudomonas aeruginosa. Count 14.2. Hemoglobin 6.8. Platelets 584. Sodium 146. Potassium 3.6. Bicarb 28. BUN 24. Creatinine 0.7. Glucose 124. She is continued on DuoNeb inhalations, Pulmicort and performance inhalations, Solu- Medrol. Antibiotics in the form of Zosyn. On 11/14/2024, patient is being seen and follow-up. Is a very complicated case of patient with COPD who underwent an extensive spine surgery. The patient initially had a C2 T7 posterior lateral fusion that was done on 09/09/2024. The patient had a T2 vertebral fracture. Subsequently, she was discharged home to be readmitted for wound dehiscence and suspected infection. The patient underwent irrigation and excisional debridement of the thoracic spine wound and T7 T11 fusion with cement augmentation of T8 T10 vertebral bodies. The patient was discharged home to be readmitted for altered mentation and diminished level of consciousness. This was suspected to be related to excessive narcotic use along with COPD. As such, the patient was intubated and placed on mechanical ventilation the patient has failed to wean since. She has failed sedation holiday. She becomes quite restless and asynchronous with mechanical ventilator. Furthermore, she was found to have fullness in her lungs and a chest x-ray from today showing no acute pulmonary filtrates. This could be a colonization versus a true infection as the patient's initial chest x-ray at time of admission was showing extensive opacities in the lungs consistent with pneumonia. Noted does infiltrate improved pressure to 1 in the right upper lobe. The patient is currently on IV Zosyn. This morning, the patient is on assist-control mode of mechanical ventilation at rate of 30, tidal volume of 320, FiO2 of 40% with a PEEP of 5. Blood gas showed pH of 7.31 with a pCO2 of 54 and pO2 of 90. She is sedated on propofol running at 50 mcg/kg/min. She is on normal saline at rate of 75 cc an hour. Fluid balance is +1.2 L over the past 24 hours. She is on vital HP running at 45 cc an hour. White cell count of 12.7, hemoglobin is at 6.4 and a platelet count of 594. Sodium levels at 147, potassium is at 3.3, BUN 26 with a creatinine of 0.69. She remains on DuoNeb updrafts. She remains on IV Solu-Medrol 60 mg every 6 hours. She remains on IV Zosyn. On 11/15/2024, the patient is being seen for a follow-up. The patient remains intubated on mechanical ventilator and the patient is awaiting a tracheostomy and a PEG tube insertion today. This morning, the patient is on a propofol running at 50 mcg/kg/min. The patient is also on D5 half-normal saline at rate of 75 cc an hour. The patient is hemodynamically stable. The patient's blood gases from today showed a pH of 7.28 with a pCO2 of 57 and pO2 of 80 and this was done on a assist-control mode at rate of 30, tidal volume of 320, FiO2 40% with a PEEP of 5. Chest x-ray shows no acute cardiopulmonary process. ET tube is in good location. NG tube is in good location. Extensive surgical changes seen involving the thoracic spine. The white cell count of 21, hemoglobin is at 8.7 and a platelet count of 661. Sodium is at 147, chloride 114, bicarb is 29, BUN 22 with a creatinine of 0.6. Blood sugar today is at 103. This plan is to proceed with a PEG and a tracheostomy tube insertion today. This will be done by general surgery. The patient remains on IV Zosyn. On 11/16/2024, the patient is being seen for a follow-up. The patient is status post tracheostomy tube insertion and the PEG tube was also inserted for enteral feeding and nutritional support. The procedure was successful without any c omplications. The patient this morning is on propofol which is running at 50 mcg/kg/min. She assist-control mode at rate of 24, tidal volume of 350, FiO2 of 40% with a PEEP of 5. The blood gas showed a pH of 7.3 with a pCO2 of 58 and pO2 76. The peak airway pressure is at 34 and the patient remains bronchospastic and wheezy. No significant respiratory secretions. Follow-up chest x-ray was done today and the patient has developed increased interstitial marking bilaterally. No focal airspace disease or opacity. Tracheostomy tube is in good location. Postsurgical changes were also seen in the lower lobes bilaterally. The patient's white cell count is 16.6, hemoglobin is at 8 with a platelet count of 687. Sodium is at 140, potassium is at 3.6, bicarb is at 29, BUN 17 with a creatinine of 0.6. Remains on bronchodilators. Remains on IV Solu-Medrol. Remains on IV Zosyn as an empiric antibiotic coverage. Rest of the medication remain unchanged and the patient will be started on enteral feeding for nutritional support. She is also on Lovenox 40 mg subcu for DVT prophylaxis. Objective - Vital Signs Vital signs: Vital Signs Temp 98.3 F 11/16/24 12:00 Pulse 70 11/16/24 16:37 Resp 24 11/16/24 15:00 BP 139/84 11/16/24 15:00 Pulse Ox 97 11/16/24 15:00 FiO2 40 11/16/24 16:35 Intake & Output 11/15/24 11/16/24 11/16/24 18:59 06:59 18:59 Intake Total 3492.926 1157.853 677 Output Total 940 700 525 Balance 806.097 393.853 152 Weight 59.8 kg 61.3 kg Intake: IV 1441 1014 277 0.9 @ KVO 5 Dextrose 5% in Water 1, 525 975 150 000 ml @ 75 mls/hr IV . [id number] [facility] Rx#:[id number] Dextrose 5%-0.45% NaCl 1, 375 000 ml @ 75 mls/hr IV . [id number] [facility] Rx#:[id number] Piperacillin-Tazobactam 3 200 100 .375 gm In Sodium Chloride 0.9% 100 ml @ 25 mls/hr IVPB Q8HR [facility] Rx# :[id number] pressure bag 36 39 27 Intake, IV Titration 185.097 79.853 Amount propofoL 1,000 mg In 185.097 79.853 Empty Bag 1 bag @ 15 MCG/ KG/MIN 4.291 mls/hr IV . [id number] [facility] Rx#:[id number] Tube Feeding 220 Other 120 180 Output: Urine 930 700 525 Estimated Blood Loss 10 Other: Voiding Method Indwelling Catheter Indwelling Catheter Indwelling Catheter ABP, PAP, CO, CI - Last Documented Arterial Blood Pressure 108/80 - Exam GENERAL EXAM: Intubated, sedated 54-year-old female on the mechanical ventilator, in no apparent distress. The patient remains sedated. The patient has a Shiley tracheostomy tube in place. HEAD: Normocephalic. EYES: Normal reaction of pupils, equal size. NOSE: Clear with pink turbinates. THROAT: Oral endotracheal and gastric tube secured in place. No erythema or exudates. Tracheostomy tube in place. NECK: No masses, no JVD. CHEST: No chest wall deformity. LUNGS: Equal air entry. Diminished breath sounds bilateral lung with diffuse expiratory wheezes throughout the lung bills and prolongation of the exhalation phase of breathing. CVS: S1 and S2 normal with no audible murmur, regular rhythm. ABDOMEN: No hepatosplenomegaly, normal bowel sounds, no guarding or rigidity. The patient has a PEG tube in place and the exit site is dry clean and intact. SPINE: No scoliosis or deformity SKIN: No rashes CENTRAL NERVOUS SYSTEM: Sedated, tone is normal in all 4 extremities. EXTREMITIES: There is no peripheral edema. No clubbing, no cyanosis. Peripheral pulses are intact. - Labs CBC & Chem 7: 11/16/24 04:26 11/16/24 04:26 Labs: Abnormal Lab Results - Last 24 Hours (Table) 11/15/24 11/15/24 11/16/24 Range/Units 17:38 23:30 04:26 WBC 16.6 H (3.8-10.6) k/uL RBC 3.08 L (3.80-5.40) m/uL Hgb 8.7 L (11.4-16.0) gm/dL Hct 30.4 L (34.0-46.0) % MCHC 28.7 L (31.0-37.0) g/dL RDW 18.5 H (11.5-15.5) % Plt Count 687 H (150-450) k/uL Neutrophils # 15.4 H (1.3-7.7) k/uL Lymphocytes # 0.7 L (1.0-4.8) k/uL ABG pH (7.35-7.45) ABG pCO2 (35-45) mmHg ABG pO2 (83-108) mmHg ABG HCO3 (21-25) mmol/L ABG Total CO2 (19-24) mmol/L Hemoglobin (11.4-16.0) gm/dL Chloride (98-107) mmol/L Glucose (74-99) mg/dL POC Glucose (mg/dL) 129 H 148 H (70-110) mg/dL 11/16/24 11/16/24 11/16/24 Range/Units 04:26 04:33 05:36 WBC (3.8-10.6) k/uL RBC (3.80-5.40) m/uL Hgb (11.4-16.0) gm/dL Hct (34.0-46.0) % MCHC (31.0-37.0) g/dL RDW (11.5-15.5) % Plt Count (150-450) k/uL Neutrophils # (1.3-7.7) k/uL Lymphocytes # (1.0-4.8) k/uL ABG pH 7.30 L (7.35-7.45) ABG pCO2 58 H (35-45) mmHg ABG pO2 76 L (83-108) mmHg ABG HCO3 28 H (21-25) mmol/L ABG Total CO2 30 H (19-24) mmol/L Hemoglobin 8.7 L (11.4-16.0) gm/dL Chloride 108 H (98-107) mmol/L Glucose 139 H (74-99) mg/dL POC Glucose (mg/dL) 119 H (70-110) mg/dL Assessment and Plan Plan: Acute exacerbation of COPD with pseudomonal pneumonia. The patient remains on IV Zosyn. No clear airspace disease noted on today's chest x-ray. Remains bronchospastic and wheezy. Peak airway pressure remains elevated. Blood gases show a component of respiratory acidosis. Acute on chronic hypoxic and hypercapnic respiratory failure due to above, remains intubated on mechanical ventilator, has failed to wean. She has advanced COPD with poor pulmonary reserve due to her advanced COPD and extensive spinal surgery which has affected her ability to do adequate pulmonary toile ting. The patient is post tracheostomy tube insertion and tracheostomy was inserted on 11/15/2024. Advanced COPD Altered mental status, obtunded requiring intubation and mechanical ventilatory support on November 06, 2024. T 8 fracture and the patient had spine surgery. The patient was discharged from the hospital following surgery on 10/27/2024 for open treatment of a T8 fracture, irrigation and excisional debridement of thoracic spine wound measuring 10 x 7 x 4 cm, posterior lateral instrumented fusion of T7-T11 and cement augmentation of T8-T10 vertebral bodies. T2 vertebral fracture with revision of C2-T7 posterior lateral fusion on 09/09/2024 Surgical site infection and wound dehiscence, wound and blood cultures revealed no growth Acute leukocytosis, improved Acute on chronic anemia with a hemoglobin is stable for now Rectal prolapse History of hypertension History of hyperlipidemia History of coronary artery disease History of heart failure with preserved ejection fraction based on echocardiogram from July 2023 History of gastroesophageal reflux disease History of seizure disorder History of hypothyroidism History of anxiety/depression/PTSD Plan: Continue vent support Tracheostomy tube has been inserted successfully. The patient also has a PEG tube in place Continue propofol and gradually wean off the propofol Continue Zosyn Continue DuoNeb inhalations Continue Solu-Medrol Continue Pulmicort and Perforomist inhalations Lovenox for DVT prophylaxis Initiate enteral feeding for nutritional support Discontinue the D5 water Give the patientLasix 20 mg IV push x 2 doses Monitor electrolytes We will continue to follow make further recommendations based on her clinical status Critical care evaluation, 32 minutes Time with Patient: Greater than 30
--- NOTE | 2024-11-16 17:09 | P.PN ---
Subjective Progress Note Date: 11/15/24 Principal diagnosis: Reason for follow-up is pneumonia Patient is a 54-year-old female with a past medical history significant for COPD DVT hypertension hyperlipidemia who recently did have a cervical thoracic spine surgery revision for a nonhealing wound to the mid/upper back area patient cultures were negative has been brought to the hospital on the patient was found to be unresponsive requiring elevation and admission to the ICU Patient is status post tracheostomy and PEG tube placement completed on 11/15/2024. On today's evaluation that is 11/15/2024, Patient is afebrile this morning patient remains to be debated on the vent FiO2 currently 40% patient is hem odynamic stable not requiring any pressor support no other changes reported. Patient white count is 21.9, creatinine is 0.64 sputum with Pseudomonas aeruginosa Objective - Vital Signs Vital signs: Vital Signs Temp 99.3 F 11/15/24 08:00 Pulse 59 L 11/15/24 14:00 Resp 24 11/15/24 14:00 BP 127/80 11/15/24 14:00 Pulse Ox 99 11/15/24 14:00 FiO2 40 11/15/24 13:00 Intake & Output 11/14/24 11/15/24 11/15/24 18:59 06:59 18:59 Intake Total 2260.056 1168 1174.097 Output Total 1495 990 700 Balance 765.056 178 474.097 Weight 59.8 kg 59.8 kg Intake: IV 2793 784 4485 0.9 @ KVO 10 5 Dextrose 5% in Water 1, 225 000 ml @ 75 mls/hr IV . [id number] [facility] Rx#:[id number] Dextrose 5%-0.45% NaCl 1, 600 825 375 000 ml @ 75 mls/hr IV . [id number] [facility] Rx#:[id number] Piperacillin-Tazobactam 3 100 .375 gm In Sodium Chloride 0.9% 100 ml @ 25 mls/hr IVPB Q8HR [facility] Rx# :[id number] Sodium Chloride 0.9% 1, 375 000 ml @ 75 mls/hr IV . [id number] [facility] Rx#:[id number] pressure bag 39 33 24 Intake, IV Titration 191.056 100 85.097 Amount propofoL 1,000 mg In 191.056 100 85.097 Empty Bag 1 bag @ 15 MCG/ KG/MIN 4.291 mls/hr IV . [id number] [facility] Rx#:[id number] Tube Feeding 585 180 Blood Product 310 Rc As-1 Unit 310 [id number] Other 150 30 60 Output: Urine 1495 990 690 Estimated Blood Loss 10 Other: Voiding Method Indwelling Catheter Indwelling Catheter Indwelling Catheter ABP, PAP, CO, CI - Last Documented Arterial Blood Pressure 146/69 - Exam GENERAL DESCRIPTION: Middle-age female intubated through the trach RESPIRATORY SYSTEM: Unlabored breathing , decreased breath sounds at bases HEART: S1 S2 regular rate and rhythm , ABDOMEN: Soft , no tenderness EXTREMITIES: No edema feet - Labs CBC & Chem 7: 11/15/24 04:50 11/15/24 04:50 Labs: Abnormal Lab Results - Last 24 Hours (Table) 11/14/24 11/14/24 11/15/24 Range/Units 18:23 20:12 00:14 WBC 18.3 H (3.8-10.6) k/uL RBC 2.77 L (3.80-5.40) m/uL Hgb 8.0 L D (11.4-16.0) gm/dL Hct 27.4 L (34.0-46.0) % MCHC 29.2 L (31.0-37.0) g/dL RDW 19.0 H (11.5-15.5) % Plt Count 561 H (150-450) k/uL Neutrophils # (1.3-7.7) k/uL Lymphocytes # (1.0-4.8) k/uL ABG pH (7.35-7.45) ABG pCO2 (35-45) mmHg ABG pO2 (83-108) mmHg ABG HCO3 (21-25) mmol/L ABG Total CO2 (19-24) mmol/L Hemoglobin (11.4-16.0) gm/dL Sodium (137-145) mmol/L Chloride (98-107) mmol/L BUN (7-17) mg/dL Glucose (74-99) mg/dL POC Glucose (mg/dL) 139 H 131 H (70-110) mg/dL 11/15/24 11/15/24 11/15/24 Range/Units 04:50 04:50 05:03 WBC 21.9 H (3.8-10.6) k/uL RBC 3.07 L (3.80-5.40) m/uL Hgb 8.7 L (11.4-16.0) gm/dL Hct 30.4 L (34.0-46.0) % MCHC 28.7 L (31.0-37.0) g/dL RDW 18.5 H (11.5-15.5) % Plt Count 661 H (150-450) k/uL Neutrophils # 20.4 H (1.3-7.7) k/uL Lymphocytes # 0.7 L (1.0-4.8) k/uL ABG pH 7.28 L (7.35-7.45) ABG pCO2 57 H (35-45) mmHg ABG pO2 80 L (83-108) mmHg ABG HCO3 27 H (21-25) mmol/L ABG Total CO2 29 H (19-24) mmol/L Hemoglobin 8.7 L (11.4-16.0) gm/dL Sodium 147 H (137-145) mmol/L Chloride 114 H (98-107) mmol/L BUN 22 H (7-17) mg/dL Glucose 129 H (74-99) mg/dL POC Glucose (mg/dL) (70-110) mg/dL 11/15/24 Range/Units 06:35 WBC (3.8-10.6) k/uL RBC (3.80-5.40) m/uL Hgb (11.4-16.0) gm/dL Hct (34.0-46.0) % MCHC (31.0-37.0) g/dL RDW (11.5-15.5) % Plt Count (150-450) k/uL Neutrophils # (1.3-7.7) k/uL Lymphocytes # (1.0-4.8) k/uL ABG pH (7.35-7.45) ABG pCO2 (35-45) mmHg ABG pO2 (83-108) mmHg ABG HCO3 (21-25) mmol/L ABG Total CO2 (19-24) mmol/L Hemoglobin (11.4-16.0) gm/dL Sodium (137-145) mmol/L Chloride (98-107) mmol/L BUN (7-17) mg/dL Glucose (74-99) mg/dL POC Glucose (mg/dL) 134 H (70-110) mg/dL Assessment and Plan (1) Pneumonia Current Visit: Yes Status: Acute Code(s): J18.9 - PNEUMONIA, UNSPECIFIED ORGANISM SNOMED Code(s): 743438626 (2) Abnormal CT scan, chest Current Visit: Yes Status: Acute Code(s): R93.89 - ABNORMAL FINDINGS ON DX IMAGING OF OTH BODY STRUCTURES SNOMED Code(s): 66737491562039370 (3) Leukocytosis Current Visit: No Status: Acute Code(s): D72.829 - ELEVATED WHITE BLOOD CELL COUNT, UNSPECIFIED SNOMED Code(s): 674004149 Plan: 1patient presented to hospital after the patient was found to be unresponsive at home concerning for possible drug overdose also noted to have significant finding on a chest x-ray and the CT concerning for possible pneumonia question of aspiration etiology in this patient has been around the hospital concerning for possible resistant gram-positive as well as gram-negative pathogen, the thoracic or cervical incision currently looks clean without cellulitis or any drainage 2-patient did have Pseudomonas aeruginosa in the sputum concerning for pneumonia possible aspiration, 3patient noticed to have worsening of the white count possibly reactive/related to steroids will be monitored closely, continue with Zosyn and supportive care Dictation was produced using [employer] dictation software. please excuse any grammatical, word or spelling errors.
--- NOTE | 2024-11-16 17:10 | P.PN ---
Subjective Progress Note Date: 11/16/24 Principal diagnosis: Reason for follow-up is pneumonia Patient is a 54-year-old female with a past medical history significant for COPD DVT hypertension hyperlipidemia who recently did have a cervical thoracic spine surgery revision for a nonhealing wound to the mid/upper back area patient cultures were negative has been brought to the hospital on the patient was found to be unresponsive requiring elevation and admission to the ICU Patient is status post tracheostomy and PEG tube placement completed on 11/15/2024. On today's evaluation that is 11/16/2024,the patient remains to be afebrile, the patient remains to be intubated on the vent through the trach, FiO2 is currently at 40% patient is hemodynamic stable not requiring any pressor support no other changes reported by the nursing staff. Patient white count is down to 16.6 creatinine 0.64 Objective - Vital Signs Vital signs: Vital Signs Temp 98.3 F 11/16/24 12:00 Pulse 76 11/16/24 16:47 Resp 24 11/16/24 15:00 BP 139/84 11/16/24 15:00 Pulse Ox 97 11/16/24 15:00 FiO2 40 11/16/24 16:35 Intake & Output 11/15/24 11/16/24 11/16/24 18:59 06:59 18:59 Intake Total 7814.813 5647.853 677 Output Total 940 700 525 Balance 806.097 393.853 152 Weight 59.8 kg 61.3 kg Intake: IV 1441 1014 277 0.9 @ KVO 5 Dextrose 5% in Water 1, 525 975 150 000 ml @ 75 mls/hr IV . [id number] [facility] Rx#:[id number] Dextrose 5%-0.45% NaCl 1, 375 000 ml @ 75 mls/hr IV . [id number] [facility] Rx#:[id number] Piperacillin-Tazobactam 3 200 100 .375 gm In Sodium Chloride 0.9% 100 ml @ 25 mls/hr IVPB Q8HR [facility] Rx# :[id number] pressure bag 36 39 27 Intake, IV Titration 185.097 79.853 Amount propofoL 1,000 mg In 185.097 79.853 Empty Bag 1 bag @ 15 MCG/ KG/MIN 4.291 mls/hr IV . [id number] [facility] Rx#:[id number] Tube Feeding 220 Other 120 180 Output: Urine 930 700 525 Estimated Blood Loss 10 Other: Voiding Method Indwelling Catheter Indwelling Catheter Indwelling Catheter ABP, PAP, CO, CI - Last Documented Arterial Blood Pressure 108/80 - Exam GENERAL DESCRIPTION: Middle-age female intubated through the trach RESPIRATORY SYSTEM: Unlabored breathing , decreased breath sounds at bases HEART: S1 S2 regular rate and rhythm , ABDOMEN: Soft , no tenderness EXTREMITIES: No edema feet - Labs CBC & Chem 7: 11/16/24 04:26 11/16/24 04:26 Labs: Abnormal Lab Results - Last 24 Hours (Table) 11/15/24 11/15/24 11/16/24 Range/Units 17:38 23:30 04:26 WBC 16.6 H (3.8-10.6) k/uL RBC 3.08 L (3.80-5.40) m/uL Hgb 8.7 L (11.4-16.0) gm/dL Hct 30.4 L (34.0-46.0) % MCHC 28.7 L (31.0-37.0) g/dL RDW 18.5 H (11.5-15.5) % Plt Count 687 H (150-450) k/uL Neutrophils # 15.4 H (1.3-7.7) k/uL Lymphocytes # 0.7 L (1.0-4.8) k/uL ABG pH (7.35-7.45) ABG pCO2 (35-45) mmHg ABG pO2 (83-108) mmHg ABG HCO3 (21-25) mmol/L ABG Total CO2 (19-24) mmol/L Hemoglobin (11.4-16.0) gm/dL Chloride (98-107) mmol/L Glucose (74-99) mg/dL POC Glucose (mg/dL) 129 H 148 H (70-110) mg/dL 11/16/24 11/16/24 11/16/24 Range/Units 04:26 04:33 05:36 WBC (3.8-10.6) k/uL RBC (3.80-5.40) m/uL Hgb (11.4-16.0) gm/dL Hct (34.0-46.0) % MCHC (31.0-37.0) g/dL RDW (11.5-15.5) % Plt Count (150-450) k/uL Neutrophils # (1.3-7.7) k/uL Lymphocytes # (1.0-4.8) k/uL ABG pH 7.30 L (7.35-7.45) ABG pCO2 58 H (35-45) mmHg ABG pO2 76 L (83-108) mmHg ABG HCO3 28 H (21-25) mmol/L ABG Total CO2 30 H (19-24) mmol/L Hemoglobin 8.7 L (11.4-16.0) gm/dL Chloride 108 H (98-107) mmol/L Glucose 139 H (74-99) mg/dL POC Glucose (mg/dL) 119 H (70-110) mg/dL Assessment and Plan (1) Pneumonia Current Visit: Yes Status: Acute Code(s): J18.9 - PNEUMONIA, UNSPECIFIED ORGANISM SNOMED Code(s): 821131067 (2) Abnormal CT scan, chest Current Visit: Yes Status: Acute Code(s): R93.89 - ABNORMAL FINDINGS ON DX IMAGING OF OTH BODY STRUCTURES SNOMED Code(s): 66304290211323798 (3) Leukocytosis Current Visit: No Status: Acute Code(s): D72.829 - ELEVATED WHITE BLOOD CELL COUNT, UNSPECIFIED SNOMED Code(s): 277250946 Plan: 1patient presented to hospital after the patient was found to be unresponsive at home concerning for possible drug overdose also noted to have significant finding on a chest x-ray and the CT concerning for possible pneumonia question of aspiration etiology in this patient has been around the hospital concerning for possible resistant gram-positive as well as gram-negative pathogen, the thoracic or cervical incision currently looks clean without cellulitis or any drainage 2-patient did have Pseudomonas aeruginosa in the sputum concerning for pneumonia possible aspiration, 3patient white count is trending down for now continue with Zosyn and supportive care Dictation was produced using [employer] dictation software. please excuse any g rammatical, word or spelling errors.
[2024-11-16 17:34] LABS: Glucose,Whole Blood 119 mg/dL (70-110)
[2024-11-16] MEDS: FUROSEMIDE 10 MG/ML 2 ML VIAL IV SCH (19:44)
[2024-11-17 00:29] LABS: Glucose,Whole Blood 140 mg/dL (70-110)
[2024-11-17 04:31] LABS: Anisocytosis Slight; Basophils % (A) 0 %; Eosinophils % (A) 0 %; HCT 29.7 % (34.0-46.0); HGB 8.6 gm/dL (11.4-16.0); Hypochromasia Marked; Lymphocytes # (A) 0.5 k/uL (1.0-4.8); Lymphocytes % (A) 3 %; MCH 28.1 pg (25.0-35.0); MCHC 28.9 g/dL (31.0-37.0); MCV 97.1 fL (80.0-100.0); Macrocytosis Slight; Mean Platelet Volume 7.3; Monocytes # (A) 0.3 k/uL (0-1.0); Monocytes % (A) 2 %; Neutrophils % (A) 94 %; Platelet Count 652 k/uL (150-450); RBC 3.06 m/uL (3.80-5.40); RDW 17.9 % (11.5-15.5); WBC 15.9 k/uL (3.8-10.6)
[2024-11-17 05:01] LABS: ALT 25 U/L (4-34); AST 20 U/L (14-36); African American GFR (CKD) >90 (>60 ml/min/1.73 sqM); Albumin 2.5 g/dL (3.5-5.0); Alkaline Phosphatase 75 U/L (38-126); Anion Gap 3 mmol/L; Blood Urea Nitrogen 18 mg/dL (7-17); Calcium 8.7 mg/dL (8.4-10.2); Carbon Dioxide 31 mmol/L (22-30); Chloride 105 mmol/L (98-107); Glucose 128 mg/dL (74-99); Non-African American GFR(CKD) >90 (>60 ml/min/1.73 sqM); Potassium 3.2 mmol/L (3.5-5.1); Sodium 139 mmol/L (137-145); Total Bilirubin 0.4 mg/dL (0.2-1.3); Total Protein 5.6 g/dL (6.3-8.2)
[2024-11-17 05:02] LABS: ABG HCO3 31 mmol/L (21-25); ABG Oxygen Saturation 97.9 % (94-97); ABG PCO2 52 mmHg (35-45); ABG PH 7.38 (7.35-7.45); ABG PO2 94 mmHg (83-108); ABG TCO2 33 mmol/L (19-24)
[2024-11-17 05:08] LABS: Allen Test Performed? no
[2024-11-17] MEDS: POTASSIUM CHLORIDE 20 MEQ in WATER FOR INJECTION 1 100ML.BAG IVPB SCH (05:28)
--- NOTE | 2024-11-17 05:58 | XR ---
EXAMINATION TYPE: XR chest 1V portable DATE OF EXAM: 11/17/2024 CLINICAL INDICATION: Female, 54 years old with history of intubated, progress study. SOB. TECHNIQUE: Single AP portable semiupright view of the chest is obtained. COMPARISON: Chest x-ray from one day earlier and older studies. FINDINGS: Stable tracheostomy tube. Stable left sided subclavian central venous catheter. New small left pleural effusion and left basilar opacity. Right lung is clear. Cardiac silhouette siz e is stable and within normal limits. Extensive surgical change to the visualized spine is redemonstr ated. This makes evaluation suboptimal. Several old left lateral rib fractures are redemonstrated. IMPRESSION: New small pleural effusion and associated left basilar acute infiltrate and/or atelectasi s. [facility], , 11/17/2024 5:55 AM
[2024-11-17 06:09] LABS: Glucose,Whole Blood 120 mg/dL (70-110)
[2024-11-17 06:13] LABS: Glucose,Whole Blood 115 mg/dL (70-110)
[2024-11-17] MEDS: DEXMEDETOMIDINE/0.9% NACL(PMX) 400 MCG in EMPTY BAG 1 BAG IV SCH (08:23)
[2024-11-17 11:37] LABS: Glucose,Whole Blood 128 mg/dL (70-110)
--- NOTE | 2024-11-17 13:09 | P.PN ---
Subjective Progress Note Date: 11/17/24 SURGICAL PROGRESS NOTE CHIEF COMPLAINT: Respiratory failure HISTORY OF PRESENT ILLNESS: Patient is postop day #1 status post tracheostomy and PEG tube placement. Patient's tube feeds are at goal at 45 mL/h. She is tolerating the tube feeds. Afebrile. WBC 15.9 PHYSICAL EXAM: VITAL SIGNS: Reviewed. GENERAL: Well-developed in no acute distress. HEENT: Tracheostomy site clean dry and intact ABDOMEN: Soft. Nondistended. Nontender. PEG tube site dressing clean dry and intact NEUROLOGIC: Alert and oriented. Cranial nerves II through XII grossly intact. ASSESSMENT: 1. Respiratory failure status post tracheostomy placement 2. Severe protein calorie malnutrition status post PEG tube placement PLAN: -Continue tube feeds -Continue supportive care Physician Department Sales Manager note has been reviewed by physician. Signing provider agrees with the documented findings, assessment, and plan of care. I have personally seen and examined the patient, reviewed the GRADUATE STUDENT /PAs history, exam and MDM and agree with the assessment and plan as written. Based on total visit time, I have performed more than 50% of the visit. As above: Patient's sedation has been held. Seems more alert. Following some simple commands. Tolerating tube feeds. Tracheostomy site looks good. Continue weaning from vent per pulmonary. Objective - Vital Signs Vital signs: Vital Signs Temp 97.3 F L 11/17/24 08:00 Pulse 90 11/17/24 12:53 Resp 24 11/17/24 11:00 BP 108/67 11/17/24 11:00 Pulse Ox 99 11/17/24 11:00 FiO2 40 11/17/24 08:53 Intake & Output 11/16/24 11/17/24 11/17/24 18:59 06:59 18:59 Intake Total 949.551 834.741 563.244 Output Total 645 1825 575 Balance 304.551 -990.259 -11.756 Weight 60.8 kg Intake: IV 283 136 255 0.9 @ KVO 40 Dextrose 5% in Water 1, 150 000 ml @ 75 mls/hr IV . [id number] [facility] Rx#:[id number] Piperacillin-Tazobactam 3 100 100 .375 gm In Sodium Chloride 0.9% 100 ml @ 25 mls/hr IVPB Q8HR [facility] Rx# :[id number] Potassium Chloride 20 meq 100 100 In Water For Injection 1 100ml.bag @ 50 mls/hr IVPB Q2H [facility] Rx#: [id number] pressure bag 33 36 15 Intake, IV Titration 206.551 148.741 88.244 Amount propofoL 1,000 mg In 206.551 148.741 88.244 Empty Bag 1 bag @ 15 MCG/ KG/MIN 4.291 mls/hr IV . [id number] [facility] Rx#:[id number] Tube Feeding 280 460 220 Other 180 90 Output: Urine 645 1825 575 Other: Voiding Method Indwelling Catheter Indwelling Catheter ABP, PAP, CO, CI - Last Documented Arterial Blood Pressure 138/71 - Labs CBC & Chem 7: 11/17/24 04:10 11/17/24 04:10 Labs: Abnormal Lab Results - Last 24 Hours (Table) 11/16/24 11/17/24 11/17/24 Range/Units 17:32 00:28 04:10 WBC 15.9 H (3.8-10.6) k/uL RBC 3.06 L (3.80-5.40) m/uL Hgb 8.6 L (11.4-16.0) gm/dL Hct 29.7 L (34.0-46.0) % MCHC 28.9 L (31.0-37.0) g/dL RDW 17.9 H (11.5-15.5) % Plt Count 652 H (150-450) k/uL Neutrophils # 15.0 H (1.3-7.7) k/uL Lymphocytes # 0.5 L (1.0-4.8) k/uL ABG pCO2 (35-45) mmHg ABG HCO3 (21-25) mmol/L ABG Total CO2 (19-24) mmol/L ABG O2 Saturation (94-97) % Hemoglobin (11.4-16.0) gm/dL Potassium (3.5-5.1) mmol/L Carbon Dioxide (22-30) mmol/L BUN (7-17) mg/dL Glucose (74-99) mg/dL POC Glucose (mg/dL) 119 H 140 H (70-110) mg/dL Total Protein (6.3-8.2) g/dL Albumin (3.5-5.0) g/dL 11/17/24 11/17/24 11/17/24 Range/Units 04:10 05:05 06:08 WBC (3.8-10.6) k/uL RBC (3.80-5.40) m/uL Hgb (11.4-16.0) gm/dL Hct (34.0-46.0) % MCHC (31.0-37.0) g/dL RDW (11.5-15.5) % Plt Count (150-450) k/uL Neutrophils # (1.3-7.7) k/uL Lymphocytes # (1.0-4.8) k/uL ABG pCO2 52 H (35-45) mmHg ABG HCO3 31 H (21-25) mmol/L ABG Total CO2 33 H (19-24) mmol/L ABG O2 Saturation 97.9 H (94-97) % Hemoglobin 8.8 L (11.4-16.0) gm/dL Potassium 3.2 L (3.5-5.1) mmol/L Carbon Dioxide 31 H (22-30) mmol/L BUN 18 H (7-17) mg/dL Glucose 128 H (74-99) mg/dL POC Glucose (mg/dL) 120 H (70-110) mg/dL Total Protein 5.6 L (6.3-8.2) g/dL Albumin 2.5 L (3.5-5.0) g/dL 11/17/24 11/17/24 Range/Units 06:12 11:35 WBC (3.8-10.6) k/uL RBC (3.80-5.40) m/uL Hgb (11.4-16.0) gm/dL Hct (34.0-46.0) % MCHC (31.0-37.0) g/dL RDW (11.5-15.5) % Plt Count (150-450) k/uL Neutrophils # (1.3-7.7) k/uL Lymphocytes # (1.0-4.8) k/uL ABG pCO2 (35-45) mmHg ABG HCO3 (21-25) mmol/L ABG Total CO2 (19-24) mmol/L ABG O2 Saturation (94-97) % Hemoglobin (11.4-16.0) gm/dL Potassium (3.5-5.1) mmol/L Carbon Dioxide (22-30) mmol/L BUN (7-17) mg/dL Glucose (74-99) mg/dL POC Glucose (mg/dL) 115 H 128 H (70-110) mg/dL Total Protein (6.3-8.2) g/dL Albumin (3.5-5.0) g/dL
--- NOTE | 2024-11-17 15:37 | P.PN ---
Subjective Progress Note Date: 11/17/24 Principal diagnosis: Reason for follow-up is pneumonia Patient is a 54-year-old female with a past medical history significant for COPD DVT hypertension hyperlipidemia who recently did have a cervical thoracic spine surgery revision for a nonhealing wound to the mid/upper back area patient cultures were negative has been brought to the hospital on the patient was found to be unresponsive requiring elevation and admission to the ICU Patient is status post tracheostomy and PEG tube placement completed on 11/15/2024. On today's evaluation that is 11/17/2024,the patient remains to be afebrile, patient is on the vent through the trach FiO2 is currently at 40% patient did respond to her name but unable provide any history no vomiting or diarrhea has been reported. Patient white count is 15.9 creatinine 0.67 sputum with Pseudomonas blood culture negative Objective - Vital Signs Vital signs: Vital Signs Temp 97.3 F L 11/17/24 08:00 Pulse 86 11/17/24 13:07 Resp 24 11/17/24 11:00 BP 108/67 11/17/24 11:00 Pulse Ox 99 11/17/24 11:00 FiO2 40 11/17/24 08:53 Intake & Output 11/16/24 11/17/24 11/17/24 18:59 06:59 18:59 Intake Total 949.551 834.741 572.731 Output Total 645 1825 575 Balance 304.551 -990.259 -2.269 Weight 60.8 kg Intake: IV 283 136 255 0.9 @ KVO 40 Dextrose 5% in Water 1, 150 000 ml @ 75 mls/hr IV . [id number] [facility] Rx#:[id number] Piperacillin-Tazobactam 3 100 100 .375 gm In Sodium Chloride 0.9% 100 ml @ 25 mls/hr IVPB Q8HR [facility] Rx# :[id number] Potassium Chloride 20 meq 100 100 In Water For Injection 1 100ml.bag @ 50 mls/hr IVPB Q2H [facility] Rx#: [id number] pressure bag 33 36 15 Intake, IV Titration 206.551 148.741 97.731 Amount propofoL 1,000 mg In 206.551 148.741 97.731 Empty Bag 1 bag @ 15 MCG/ KG/MIN 4.291 mls/hr IV . [id number] COUNTS INCLUDE 234 BEDS AT THE [facility] Rx#:[id number] Tube Feeding 280 460 220 Other 180 90 Output: Urine 645 5 575 Other: Voiding Method Indwelling Catheter Indwelling Catheter ABP, PAP, CO, CI - Last Documented Arterial Blood Pressure 138/71 - Exam GENERAL DESCRIPTION: Middle-age female intubated through the trach RESPIRATORY SYSTEM: Unlabored breathing , decreased breath sounds at bases HEART: S1 S2 regular rate and rhythm , ABDOMEN: Soft , no tenderness EXTREMITIES: No edema feet - Labs CBC & Chem 7: 11/17/24 04:10 11/17/24 04:10 Labs: Abnormal Lab Results - Last 24 Hours (Table) 11/16/24 11/17/24 11/17/24 Range/Units 17:32 00:28 04:10 WBC 15.9 H (3.8-10.6) k/uL RBC 3.06 L (3.80-5.40) m/uL Hgb 8.6 L (11.4-16.0) gm/dL Hct 29.7 L (34.0-46.0) % MCHC 28.9 L (31.0-37.0) g/dL RDW 17.9 H (11.5-15.5) % Plt Count 652 H (150-450) k/uL Neutrophils # 15.0 H (1.3-7.7) k/uL Lymphocytes # 0.5 L (1.0-4.8) k/uL ABG pCO2 (35-45) mmHg ABG HCO3 (21-25) mmol/L ABG Total CO2 (19-24) mmol/L ABG O2 Saturation (94-97) % Hemoglobin (11.4-16.0) gm/dL Potassium (3.5-5.1) mmol/L Carbon Dioxide (22-30) mmol/L BUN (7-17) mg/dL Glucose (74-99) mg/dL POC Glucose (mg/dL) 119 H 140 H (70-110) mg/dL Total Protein (6.3-8.2) g/dL Albumin (3.5-5.0) g/dL 11/17/24 11/17/24 11/17/24 Range/Units 04:10 05:05 06:08 WBC (3.8-10.6) k/uL RBC (3.80-5.40) m/uL Hgb (11.4-16.0) gm/dL Hct (34.0-46.0) % MCHC (31.0-37.0) g/dL RDW (11.5-15.5) % Plt Count (150-450) k/uL Neutrophils # (1.3-7.7) k/uL Lymphocytes # (1.0-4.8) k/uL ABG pCO2 52 H (35-45) mmHg ABG HCO3 31 H (21-25) mmol/L ABG Total CO2 33 H (19-24) mmol/L ABG O2 Saturation 97.9 H (94-97) % Hemoglobin 8.8 L (11.4-16.0) gm/dL Potassium 3.2 L (3.5-5.1) mmol/L Carbon Dioxide 31 H (22-30) mmol/L BUN 18 H (7-17) mg/dL Glucose 128 H (74-99) mg/dL POC Glucose (mg/dL) 120 H (70-110) mg/dL Total Protein 5.6 L (6.3-8.2) g/dL Albumin 2.5 L (3.5-5.0) g/dL 11/17/24 11/17/24 Range/Units 06:12 11:35 WBC (3.8-10.6) k/uL RBC (3.80-5.40) m/uL Hgb (11.4-16.0) gm/dL Hct (34.0-46.0) % MCHC (31.0-37.0) g/dL RDW (11.5-15.5) % Plt Count (150-450) k/uL Neutrophils # (1.3-7.7) k/uL Lymphocytes # (1.0-4.8) k/uL ABG pCO2 (35-45) mmHg ABG HCO3 (21-25) mmol/L ABG Total CO2 (19-24) mmol/L ABG O2 Saturation (94-97) % Hemoglobin (11.4-16.0) gm/dL Potassium (3.5-5.1) mmol/L Carbon Dioxide (22-30) mmol/L BUN (7-17) mg/dL Glucose (74-99) mg/dL POC Glucose (mg/dL) 115 H 128 H (70-110) mg/dL Total Protein (6.3-8.2) g/dL Albumin (3.5-5.0) g/dL Assessment and Plan (1) Pneumonia Current Visit: Yes Status: Acute Code(s): J18.9 - PNEUMONIA, UNSPECIFIED ORGANISM SNOMED Code(s): 228986907 (2) Abnormal CT scan, chest Current Visit: Yes Status: Acute Code(s): R93.89 - ABNORMAL FINDINGS ON DX IMAGING OF OTH BODY STRUCTURES SNOMED Code(s): 63902030693210874 (3) Leukocytosis Current Visit: No Status: Acute Code(s): D72.829 - ELEVATED WHITE BLOOD CELL COUNT, UNSPECIFIED SNOMED Code(s): 556916264 Plan: 1patient presented to hospital after the patient was found to be unresponsive at home concerning for possible drug overdose also noted to have significant finding on a chest x-ray and the CT concerning for possible pneumonia question of aspiration etiology in this patient has been around the hospital concerning for possible resistant gram-positive as well as gram-negative pathogen, the thoracic or cervical incision currently looks clean without cellulitis or any drainage 2-patient did have Pseudomonas aeruginosa in the sputum concerning for pneumonia possible aspiration, 3patient is afebrile and white count is trending down currently being treated Zosyn and continue with supportive care Dictation was produced using [employer] dictation software. please excuse any grammatical, word or spelling errors. Time with Patient: Less than 30
[2024-11-17 17:45] LABS: Glucose,Whole Blood 127 mg/dL (70-110)
--- NOTE | 2024-11-17 18:35 | P.PN ---
Subjective Progress Note Date: 11/17/24 Progress Note Date: 11/13/24 This is a 54-year-old female patient with a known history of COPD, hypertension, hyperlipidemia, coronary disease, congestive heart failure, DVT, hypothyroidism, seizure disorder, multiple previous back surgeries. She had most recently undergone a C2-T7 posterior lateral fusion on 09/09/2024. She developed a significant infection and wound dehiscence and was back here in the hospital and had undergone irrigation and excisional debridement of a thoracic spine wound on 10/27/2024 and discharged to home on 11/02/2024. She was brought back here to the emergency room earlier this morning after being found obtunded and unresponsive by her . She was intubated here in the emergency department. Chest x- ray revealed bilateral upper interstitial opacities concerning for pneumonia versus fluid volume overload. Evidence of COPD. Endotracheal tube and nasogastric tubes in position. CT scan of the brain revealed no acute intrac ranial process. CT angiogram ruled out pulmonary embolism. There is bilateral upper lobe reticular opacities with right greater than left raising concerns for infection. Few foci of gas identified within the left supraclavicular region and left anterior chest wall possibly with venous vasculature. CT scan of the thoracic spine reveals extensive postsurgical changes. No gross evidence of complication. White count 9.0. Hemoglobin 10.6. Platelets 800,000. INR 0.9. Sodium 144. Potassium 4.0. Bicarb 27. BUN 16. Creatinine 0.96. Glucose 111. Lactic acid 3.0. AST 86. ALT 39. Troponin 0.044. Urinalysis clean. Drug urine screen is positive for opiates, barbiturates, antidepressants, benzodiazepines and marijuana. Initial arterial blood gases on 100% FiO2 revealed a PaO2 of 34, pCO2 89 and a pH of 7.07. Follow-up blood gases on the mechanical ventilator on 100% revealed a PaO2 greater than 420, pCO2 61 and a pH of 7.20. Her current vent settings are assist-control mode at a rate of 26, tidal volume 320 and FiO2 50% and a PEEP of 5. She is sedated on propofol at 50 mcg/kg/h. She has been initiated on vancomycin and cefepime. Received Narcan without improvement initially. She received 2 L of fluid resuscitation. 11/07/2024: Patient is a 54 year old female who was admmited to the ICU on 11/06/2024 with acute hypoxic respiratory failure. She arrived to ED unresponsive. Initially thought it was narcotic overdose. Did not improve with narcan. Ultimately intubated and mechanically ventillated on 11/06 . Patient tested positive for opiates, barbiturates, tricyclic's, benzodiazepines, and marijuana. Her underlying problems include COPD, hypertension, hyperlipidemia, coronary disease, congestive heart failure, DVT, hypothyroidism, seizure disorder, multiple previous back surgeries, T2 vertebral fracture with revision of C2-T7 posterior lateral fusion on 09/09/2024 patient developed surgical wound infection and dehiscence of wound. Patient was seen today 11/07/2024. Remains intubated and mechanically ventillated on assist controlled at a rate of 30, tidal volume 320, FiO2 50%, PEEP of 5. ABG: pH 7.17/pCO2 66 /pO2 70. Currently on propofol 50 mcg/kg/min and normal saline 0.9% at 125 cc/hr. No acute events overnight. Repeat CXR showing bilateral pleural and interstitial opacities. Labs WBC 38.9 Hgb 8.2, platelets 659, CO2 21, anion gap 11, BUN 16, creatinine 0.96 CRP 26.5. Patient currently on IV vancomycin dosed by pharmacy and cefepime 2 g IVPB every 12 hours. Blood cultures are pending. MRSA/MSSA screening pending. Currently not on any tube feeding. The patient is seen on 11/08/2024 in room 262. She remains on volume assist- control, rate 30, tidal volume 320, FiO2 40%, PEEP of 5. Most recent blood gases show pO2 of 110, pCO2 of 56, pH is 7.24. The patient is on propofol at 50 mcg/kg/min, saline at 125 cc an hour which we will decrease to 75cc an hour d/t suspected dillutional anemia, and vancomycin and cefepime. Tube feedings vital HP 40 cc/hr which is goal. Blood cultures showing no growth. Left brachial ART line was placed last night. All labs, x-rays, and medications are reviewed. CXR showing bilateral interstitial opacities. White count 18.7, hemoglobin 7.0, platelet count 505,000. BUN was 19, creatinine was 0.85. We will continue to follow make recommendations along the way. All labs, x-rays, and medications are reviewed. The patient has a history of underlying COPD, hypertension, hyperlipidemia, coronary disease, heart failure, DVT, hypothyroidism, seizure disorder, and multiple surgical procedures on her cervical and thoracic spine. Prognosis is guarded. The patient is seen on 11/09/2024 in room 262. She remains on volume assist- control, rate 30, tidal volume 320, FiO2 40%, PEEP of 5. Most recent blood gases show pO2 of 89, pCO2 of 56, pH is 7.24. The patient is on propofol at 20 mcg/kg/min, saline at 75cc. Remains on vancomycin and cefepime. Yesterday was placed IV solumedrol 40 mg q8hr, but will increase to 60 mg q6hr. Tube feedings vital HP 40 cc/hr which is goal. Blood cultures showing no growth. Sputum cultures showing pseudomonas. MRSA/MSSA nares negative. Yesterday she did not tolerate being off sedation. Only lasted for 20 minutes due to her peak pressui ng and being tachypnic. She was given dilaudid yesterday which caused her to be hypotensive so she was subsequently put on levofed but has since been off it since 530a. All labs, x-rays, and medications are reviewed. CXR still showing bilateral interstitial opacities likely from atypical pneumonia. White count 17.9, hemoglobin 8.1, platelet count 572,000. BUN was 23, creatinine was 0.67. AST 35, ALT 58. We will continue to follow make recommendations along the way. All labs, x-rays, and medications are reviewed. The patient has a history of underlying COPD, hypertension, hyperlipidemia, coronary disease, heart failure, DVT, hypothyroidism, seizure disorder, and multiple surgical procedures on her cervical and thoracic spine. Prognosis is guarded. The patient is seen on 11/10/2024 in room 262. She remains on volume assist- control, rate 30, tidal volume 320, FiO2 40%, PEEP of 5. Most recent blood gases show pO2 of 78, pCO2 of 52, pH is 7.29. The patient is on propofol at 50 mcg/kg/min, saline at 75cc/hr. Remains on vancomycin and cefepime. Remains on IV solumedrol 60 mg q6hr. Tube feedings vital HP 20 cc/hr with a goal of 40. Yesterday she did not tolerate being off sedation. She was following some commands, but became agitated and hypertensive. All labs, x-rays, and medications are reviewed. CXR still showing bilateral interstitial opacities likely from atypical pneumonia. White count 18.2, hemoglobin 8.6, platelet count 625,000. BUN was 26, creatinine was 0.73. We will continue to follow make recommendations along the way. All labs, x-rays, and medications are reviewed. The patient has a history of underlying COPD, hypertension, hyperlipidemia, coronary disease, heart failure, DVT, hypothyroidism, seizure disorder, and multiple surgical procedures on her cervical and thoracic spine. Will attempt to wean off sedation today. May end up being a candidate for trach and PEG. Prognosis is guarded. The patient is seen on 11/12/2024 in room 262. She remains on volume assist- control, rate 30, tidal volume 320, FiO2 40%, PEEP of 5. Most recent blood gases show pO2 of 89, pCO2 of 54, pH is 7.29. The patient had a large differ ence in her peak and plateau pressure, suggesting increased airways resistance. Airway resistance calculation was 17 cm H20/L/sec. Dynamic compliance 11.8 mL/cm of H20. Static compliance 27 mL/cm H20. The patient is on propofol at 50 mcg/kg/min, saline at 70cc/hr. Sputum cultures showing pseudomonas. Cefepime was switched to Zosyn. Remains on IV solumedrol 60 mg q6hr. Tube feedings vital HP 30 cc/hr with a goal of 45. Yesterday she did not tolerate being off sedation. She became agitated and hypertensive. She has been on ventillator since 11/06. All labs, x-rays, and medications are reviewed. CXR showing diffuse pulmonary vascular congestation. White count 14.6, hemoglobin 7.5, platelet count 598,000. BUN was 26, creatinine was 0.77. We will continue to follow make recommendations along the way. All labs, x-rays, and medications are reviewed. The patient has a history of underlying COPD, hypertension, hyperlipidemia, coronary disease, heart failure, DVT, hypothyroidism, seizure disorder, and multiple surgical procedures on her cervical and thoracic spine. Will attempt to wean off sedation today. May end up being a candidate for trach and PEG. Prognosis is guarded. The patient is seen today November 13, 2024 in follow-up in the intensive care unit. She remains intubated and on the mechanical ventilator and assist-control mode with a rate of 30, tidal volume 320, FiO2 40% and a PEEP of 5. Morning blood gases revealed a PaO2 of 76, pCO2 53 and a pH of 7.31. She is sedated on propofol at 50 mcg/kg/min. Receiving normal saline at 75 mL/h. Being nourished with vital HP at 40 mL/h with a goal of 45 mL/h. Chest x-ray shows no change in diffuse interstitial process possibly chronic in nature. No airspace consolidation, pleural effusion or pneumothorax. Sputum culture is positive for Pseudomonas aeruginosa. Count 14.2. Hemoglobin 6.8. Platelets 584. Sodium 146. Potassium 3.6. Bicarb 28. BUN 24. Creatinine 0.7. Glucose 124. She is continued on DuoNeb inhalations, Pulmicort and performance inhalations, Solu- Medrol. Antibiotics in the form of Zosyn. On 11/14/2024, patient is being seen and follow-up. Is a very complicated case of patient with COPD who underwent an extensive spine surgery. The patient initially had a C2 T7 posterior lateral fusion that was done on 09/09/2024. The patient had a T2 vertebral fracture. Subsequently, she was discharged home to be readmitted for wound dehiscence and suspected infection. The patient underwent irrigation and excisional debridement of the thoracic spine wound and T7 T11 fusion with cement augmentation of T8 T10 vertebral bodies. The patient was discharged home to be readmitted for altered mentation and diminished level of consciousness. This was suspected to be related to excessive narcotic use along with COPD. As such, the patient was intubated and placed on mechanical ventilation the patient has failed to wean since. She has failed sedation holiday. She becomes quite restless and asynchronous with mechanical ventilator. Furthermore, she was found to have fullness in her lungs and a chest x-ray from today showing no acute pulmonary filtrates. This could be a colonization versus a true infection as the patient's initial chest x-ray at time of admission was showing extensive opacities in the lungs consistent with pneumonia. Noted does infiltrate improved pressure to 1 in the right upper lobe. The patient is currently on IV Zosyn. This morning, the patient is on assist-control mode of mechanical ventilation at rate of 30, tidal volume of 320, FiO2 of 40% with a PEEP of 5. Blood gas showed pH of 7.31 with a pCO2 of 54 and pO2 of 90. She is sedated on propofol running at 50 mcg/kg/min. She is on normal saline at rate of 75 cc an hour. Fluid balance is +1.2 L over the past 24 hours. She is on vital HP running at 45 cc an hour. White cell count of 12.7, hemoglobin is at 6.4 and a platelet count of 594. Sodium levels at 147, potassium is at 3.3, BUN 26 with a creatinine of 0.69. She remains on DuoNeb updrafts. She remains on IV Solu-Medrol 60 mg every 6 hours. She remains on IV Zosyn. On 11/15/2024, the patient is being seen for a follow-up. The patient remains intubated on mechanical ventilator and the patient is awaiting a tracheostomy and a PEG tube insertion today. This morning, the patient is on a propofol running at 50 mcg/kg/min. The patient is also on D5 half-normal saline at rate of 75 cc an hour. The patient is hemodynamically stable. The patient's blood gases from today showed a pH of 7.28 with a pCO2 of 57 and pO2 of 80 and this was done on a assist-control mode at rate of 30, tidal volume of 320, FiO2 40% with a PEEP of 5. Chest x-ray shows no acute cardiopulmonary process. ET tube is in good location. NG tube is in good location. Extensive surgical changes seen involving the thoracic spine. The white cell count of 21, hemoglobin is at 8.7 and a platelet count of 661. Sodium is at 147, chloride 114, bicarb is 29, BUN 22 with a creatinine of 0.6. Blood sugar today is at 103. This plan is to proceed with a PEG and a tracheostomy tube insertion today. This will be done by general surgery. The patient remains on IV Zosyn. On 11/16/2024, the patient is being seen for a follow-up. The patient is status post tracheostomy tube insertion and the PEG tube was also inserted for enteral feeding and nutritional support. The procedure was successful without any c omplications. The patient this morning is on propofol which is running at 50 mcg/kg/min. She assist-control mode at rate of 24, tidal volume of 350, FiO2 of 40% with a PEEP of 5. The blood gas showed a pH of 7.3 with a pCO2 of 58 and pO2 76. The peak airway pressure is at 34 and the patient remains bronchospastic and wheezy. No significant respiratory secretions. Follow-up chest x-ray was done today and the patient has developed increased interstitial marking bilaterally. No focal airspace disease or opacity. Tracheostomy tube is in good location. Postsurgical changes were also seen in the lower lobes bilaterally. The patient's white cell count is 16.6, hemoglobin is at 8 with a platelet count of 687. Sodium is at 140, potassium is at 3.6, bicarb is at 29, BUN 17 with a creatinine of 0.6. Remains on bronchodilators. Remains on IV Solu-Medrol. Remains on IV Zosyn as an empiric antibiotic coverage. Rest of the medication remain unchanged and the patient will be started on enteral feeding for nutritional support. She is also on Lovenox 40 mg subcu for DVT prophylaxis. On 11/17/2024, the patient is being seen for a follow-up. This morning, the patient has been more responsive as the patient is being weaned off the propofol. Propofol is running at 30 mcg/kg/min. She is status post a Symptom insertion. She remains on assist-control mode of mechanical ventilation at rate of 24, tidal volume of 350, FiO2 40% with a PEEP of 5. Follow-up blood gas shows improvement in acid-base status. pH of 7.38 with a pCO2 of 22 and pO2 of 94. The peak airway pressure is at 30. Fluid balance is +60 disease over the past 24 hours. Chest x-ray shows no acute pulmonary infiltrates. Previous sputum samples showed Pseudomonas aeruginosa. Remains on DuoNeb updrafts. Remains on Perforomist and Pulmicort. Remains on IV Solu-Medrol 60 mg every 6 hours. Remains on IV Zosyn. Will start enteral feeding for nutritional support. Will continue weaning the sedation. The white cell count is 15.9, improving, hemoglobin stable at 8.6 and a platelet count is at 652. Sodium is at 139, potassium is at 3.2, BUN is 18 with a creatinine of 0.6. LFTs are normal. Objective - Vital Signs Vital signs: Vital Signs Temp 97 F L 11/17/24 16:30 Pulse 71 11/17/24 17:00 Resp 24 11/17/24 17:00 BP 124/80 11/17/24 17:00 Pulse Ox 96 11/17/24 17:00 FiO2 40 11/17/24 16:30 Intake & Output 11/16/24 11/17/24 11/17/24 18:59 06:59 18:59 Intake Total 949.551 834.741 935.731 Output Total 645 1825 940 Balance 304.551 -990.259 -4.269 Weight 60.8 kg Intake: IV 283 136 348 0.9 @ KVO 90 Dextrose 5% in Water 1, 150 000 ml @ 75 mls/hr IV . [id number] [facility] Rx#:[id number] Piperacillin-Tazobactam 3 100 125 .375 gm In Sodium Chloride 0.9% 100 ml @ 25 mls/hr IVPB Q8HR [facility] Rx# :[id number] Potassium Chloride 20 meq 100 100 In Water For Injection 1 100ml.bag @ 50 mls/hr IVPB Q2H [facility] Rx#: [id number] pressure bag 33 36 33 Intake, IV Titration 206.551 148.741 97.731 Amount propofoL 1,000 mg In 206.551 148.741 97.731 Empty Bag 1 bag @ 15 MCG/ KG/MIN 4.291 mls/hr IV . [id number] [facility] Rx#:[id number] Tube Feeding 280 460 490 Other 180 90 Output: Urine 645 1825 940 Other: Voiding Method Indwelling Catheter Indwelling Catheter Indwelling Catheter ABP, PAP, CO, CI - Last Documented Arterial Blood Pressure 148/70 - Exam GENERAL EXAM: Intubated, sedated 54-year-old female on the mechanical v entilator, in no apparent distress. The patient remains sedated. The patient has a Shiley tracheostomy tube in place. HEAD: Normocephalic. EYES: Normal reaction of pupils, equal size. NOSE: Clear with pink turbinates. THROAT: Oral endotracheal and gastric tube secured in place. No erythema or exu dates. Tracheostomy tube in place. NECK: No masses, no JVD. CHEST: No chest wall deformity. LUNGS: Equal air entry. Diminished breath sounds bilateral lung with diffuse expiratory wheezes throughout the lung bills and prolongation of the exhalation phase of breathing. CVS: S1 and S2 normal with no audible murmur, regular rhythm. ABDOMEN: No hepatosplenomegaly, normal bowel sounds, no guarding or rigidity. The patient has a PEG tube in place and the exit site is dry clean and intact. SPINE: No scoliosis or deformity SKIN: No rashes CENTRAL NERVOUS SYSTEM: Sedated, tone is normal in all 4 extremities. EXTREMITIES: There is no peripheral edema. No clubbing, no cyanosis. Peripheral pulses are intact. - Labs CBC & Chem 7: 11/17/24 04:10 11/17/24 04:10 Labs: Abnormal Lab Results - Last 24 Hours (Table) 11/17/24 11/17/24 11/17/24 Range/Units 00:28 04:10 04:10 WBC 15.9 H (3.8-10.6) k/uL RBC 3.06 L (3.80-5.40) m/uL Hgb 8.6 L (11.4-16.0) gm/dL Hct 29.7 L (34.0-46.0) % MCHC 28.9 L (31.0-37.0) g/dL RDW 17.9 H (11.5-15.5) % Plt Count 652 H (150-450) k/uL Neutrophils # 15.0 H (1.3-7.7) k/uL Lymphocytes # 0.5 L (1.0-4.8) k/uL ABG pCO2 (35-45) mmHg ABG HCO3 (21-25) mmol/L ABG Total CO2 (19-24) mmol/L ABG O2 Saturation (94-97) % Hemoglobin (11.4-16.0) gm/dL Potassium 3.2 L (3.5-5.1) mmol/L Carbon Dioxide 31 H (22-30) mmol/L BUN 18 H (7-17) mg/dL Glucose 128 H (74-99) mg/dL POC Glucose (mg/dL) 140 H (70-110) mg/dL Total Protein 5.6 L (6.3-8.2) g/dL Albumin 2.5 L (3.5-5.0) g/dL 11/17/24 11/17/24 11/17/24 Range/Units 05:05 06:08 06:12 WBC (3.8-10.6) k/uL RBC (3.80-5.40) m/uL Hgb (11.4-16.0) gm/dL Hct (34.0-46.0) % MCHC (31.0-37.0) g/dL RDW (11.5-15.5) % Plt Count (150-450) k/uL Neutrophils # (1.3-7.7) k/uL Lymphocytes # (1.0-4.8) k/uL ABG pCO2 52 H (35-45) mmHg ABG HCO3 31 H (21-25) mmol/L ABG Total CO2 33 H (19-24) mmol/L ABG O2 Saturation 97.9 H (94-97) % Hemoglobin 8.8 L (11.4-16.0) gm/dL Potassium (3.5-5.1) mmol/L Carbon Dioxide (22-30) mmol/L BUN (7-17) mg/dL Glucose (74-99) mg/dL POC Glucose (mg/dL) 120 H 115 H (70-110) mg/dL Total Protein (6.3-8.2) g/dL Albumin (3.5-5.0) g/dL 11/17/24 11/17/24 Range/Units 11:35 17:43 WBC (3.8-10.6) k/uL RBC (3.80-5.40) m/uL Hgb (11.4-16.0) gm/dL Hct (34.0-46.0) % MCHC (31.0-37.0) g/dL RDW (11.5-15.5) % Plt Count (150-450) k/uL Neutrophils # (1.3-7.7) k/uL Lymphocytes # (1.0-4.8) k/uL ABG pCO2 (35-45) mmHg ABG HCO3 (21-25) mmol/L ABG Total CO2 (19-24) mmol/L ABG O2 Saturation (94-97) % Hemoglobin (11.4-16.0) gm/dL Potassium (3.5-5.1) mmol/L Carbon Dioxide (22-30) mmol/L BUN (7-17) mg/dL Glucose (74-99) mg/dL POC Glucose (mg/dL) 128 H 127 H (70-110) mg/dL Total Protein (6.3-8.2) g/dL Albumin (3.5-5.0) g/dL Assessment and Plan Plan: Advanced COPD, failure to wean with chronic hypoxic and hypercapnic respiratory failure with ongoing history of the exacerbation. She was on sample was positive for Pseudomonas aeruginosa. Due to failure to wean, the patient was given a tracheostomy tube on 11/15/2024. Chest x-ray is clear. Follow-up blood gas showed improvement in the acid-base status. Acute on chronic hypoxic and hypercapnic respiratory failure due to above Advanced COPD Altered mental status, obtunded requiring intubation and mechanical ventilatory support on November 06, 2024. T 8 fracture and the patient had spine surgery. The patient was discharged from the hospital following surgery on 10/27/2024 for open treatment of a T8 fracture, irrigation and excisional debridement of thoracic spine wound measuring 10 x 7 x 4 cm, posterior lateral instrumented fusion of T7-T11 and cement augmentation of T8-T10 vertebral bodies. T2 vertebral fracture with revision of C2-T7 posterior lateral fusion on 09/09/2024 Surgical site infection and wound dehiscence, wound and blood cultures revealed no growth Acute leukocytosis, improved Acute on chronic anemia with a hemoglobin is stable for now Rectal prolapse History of hypertension History of hyperlipidemia History of coronary artery disease History of heart failure with preserved ejection fraction based on echocardiogram from July 2023 History of gastroesophageal reflux disease History of seizure disorder History of hypothyroidism History of anxiety/depression/PTSD Plan: Continue vent support Wean off propofol and discontinue. Use Precedex if needed Tracheostomy tube has been inserted successfully. PEG tube has been inserted successfully and the patient will be started on enteral feeding for nutritional support Continue Zosyn Continue DuoNeb inhalations Continue Solu-Medrol Continue Pulmicort and Perforomist inhalations Lovenox for DVT prophylaxis Initiate enteral feeding for nutritional support Continue IV Lasix 20 mg IV push every 12 hours Monitor electrolytes We will continue to follow make further recommendations based on her clinical status Critical care evaluation, 32 minutes Time with Patient: Greater than 30
--- NOTE | 2024-11-17 19:01 | P.PN ---
Subjective Progress Note Date: 11/17/24 Patient is evaluated today in follow up in the intensive care unit. Patient remains intubated on the mechanical ventilator with PEEP of 5 and FiO2 of 40%. Patient remains sedated. LFTs remain elevated, white blood cell count up to 38. Blood culture pending. Patient continues on IV Vancomycin and IV cefepime. ID following. Chest xray today reveals stable upper lobe interstitial opacities. Spinal surgery evaluated the patient felt the wound was noninfectious and healing well. Patients heart rate has been in the 120s was resumed on home medication of propanolol and has had improvement in the heart rate down to the 80s this afternoon. 11/08/2024 Patient is evaluated today in follow up in the ICU. Remains intubated and sedated on the mechanical ventilator with settings at PEEP of 5 and 40% FiO2. Chest xray today reveals interstitial opacities correlating for atypical pneumonia. There is extensive fixation hardware throughout the spine. White blood cell count of 18.7, hgb 7.0, MCV 105.6. Magnesium 1.2, potassium 3.3. Remains on IV cefepime, IV vancomycin. Has been started on systemic steroids. P atient with low grade temp of 99.8 today. Blood pressure low/normal. 11/09/2024 Patient is evaluated in the Intensive care unit, family at the bedside. Patient remains on the mechanical ventilator with PEEP of 5, FiO2 of 40%. Not ready for weaning today. Chest xray reveals interstitial opacities of the lungs correlate for atypical pneumonia. Sputum positive for pseudomonas. Patient remains on IV Cefepime. Also on IV solumedrol. Patient is sedated with propofol. Normal saline is running at 75 mls/hr. White blood cell count 17.9, hgb 8.1. Sodium 145, potassium 4.1, BUN 23, creatinine 0.67. Patient with low grade temp 99 axillary. 11/10/2024 Patient evaluated today in the intensive care unit. She remains sedated and intubated on mechanical ventilator settings of PEEP of 5 with FiO2 40%. She is awake and alert although her eyes are not tracking. She does remain on propofol. Chest x-ray today reveals interstitial opacities of the lungs are unchanged. Sputum culture shows Pseudomonas x 2. Her labs today reveal a white blood cell count of 18.2, hemoglobin 8.6, platelet count of 625, sodium of 145, potassium 3.8, BUN of 26, creatinine of 0.73, magnesium 2.1. Her blood glucose is controlled. She is having some residuals with the enteral feedings per the nurse they have been decreased to 20 mL/h and will monitor the residuals closely. Patient continues on IV cefepime IV Solu-Medrol. She is sedated with IV propofol she is on normal saline at 75 mL/h. Pulmonary is considering this patient for tracheostomy and PEG tube placement 11/11/2024 Patient evaluated in the ICU patient is unable to be weaned and continues to become agitated when weaning off the propofol. Residuals are better today and tube feeds up to 30 mls/hr and she is having bowel movements. Antibiotics have been transitioned to IV zosyn. ID following closely. Labs today reveal white blood cell count 19.2, hgb 8.3, sodium 144, potassium 4.0, BUN 27, creatinine 0.66. Chest xray today reveals stable findings. 11/14/2024 Patient is evaluated today in the intensive care unit. No family able to bring patients briviact up to the hospital so she has been started on oral keppra. Continues to be sedated and intubated on the mechanical ventilator. Chest xray today reveals no new acute pulmonary process. Hemoglobin 6.4 today and patient scheduled to receive 1 unit of PRBC. White blood cell count down to 12.7. Sodium 147, potassium 3.3., BUN 26, creatinine 0.69. General surgery was consulted for PEG/Trach. 11/15/2024 Patient is evaluated in follow-up remains in the ICU she is sedated and intubated; on the mechanical ventilator with an FiO2 of 40% PEEP of 5. Patient will be going for trach and PEG tube placement. Chest x-ray today reveals no acute new pulmonary process. White blood cell count is 21.9, hemoglobin 8.7, sodium of 147 potassium 3.8, BUN 22 creatinine 0.64 magnesium 1.9. 11/16/2024 Patient is evaluated in follow-up remains in the intensive care unit. Patient is currently sedated with propofol she is currently intubated on mechanical ventilator with a FiO2 of 40% and a PEEP of 5. Patient underwent tracheostomy and PEG tube placement yesterday. Chest x-ray reveals no new acute process. Improved bilateral interstitial edema noted. Patient to be started on oral Lasix today. She continues on IV Zosyn. Her labs reveal a white blood cell count of 16.6, hemoglobin 8.7, sodium of 140, potassium 3.6, creatinine 0.64. 11/17/2024 Patient evaluated in the ICU. Remains on the mechanical ventilator intubated. Awake alert and following some commands. Status post tracheostomy and PEG tube placement. Labs today 15.9, hgb 8.6, sodium 139, potassium 3.2, BUN 18, creatinine 0.67. Unable to complete review of systems patient is currently intubated and sedated. Physical Examination GENERAL EXAM: Intubated, mechanically ventilated, thin 54-year-old female, on the ventilator, in no apparent distress. Tracheostomy HEAD: Normocephalic. Normal reaction of pupils, equal size. THROAT: No erythema or exudates. NECK: No masses, no JVD. CHEST: No chest wall deformity. LUNGS: Equal air entry with no crackles, wheeze, rhonchi or dullness. CVS: S1 and S2 normal with no audible murmur, regular rhythm. ABDOMEN: No hepatosplenomegaly, normal bowel sounds, no guarding or rigidity. Peg tube in place. SPINE: No scoliosis or deformity. Surgical dressing dry and intact. SKIN: No rashes CENTRAL NERVOUS SYSTEM: Sedated, tone is normal in all 4 extremities. EXTREMITIES: There is no peripheral edema. No clubbing, no cyanosis. Peripheral pulses are intact. Assessment and Plan -Altered mental status from acute toxic and metabolic encephalopathy with episode of unresponsive, likely related to narcotics versus sepsis -Unable to rule out aspiration pneumonia -Pseudomonas pneumonia Healthcare acquired with septic shock POA -Acute hypoxic/hypercapnic respiratory failure; as indicated above; patient remains intubated with mechanical ventilation -Surgical site infection/wound dehiscence and Patient is status post surgery on 10/27/2024 for open treatment of a T8 fracture, irrigation and excisional debridement of thoracic spine wound measuring 10 x 7 x 4 cm, posterior lateral instrumented fusion of T7-T11 and cement augmentation of T8-T10 vertebral bodies; Orthopedic surgery consulted and felt the wound was noninfectious and healing well. -Leukocytosis/sepsis; continue with IV antibiotics as indicated above; patient has been pancultured -Hypernatremia -History of hypertension; propranolol 20 mg twice daily has been resumed; prazosin 2 mg twice daily on hold -Macroctyic anemia -Hyperlipidemia; currently not on any statin therapy -Hypothyroidism; levothyroxine 88 mcg daily -History of CAD -Chronic heart failure with preserved EF with no acute exacerbation -History of COPD/Asthma -PTSD/Bipolar/Borderline personality -Chronic nicotine use -Polysubstance use -Rectal prolapse -Hx seizure disorder -Gastroesophageal reflux DVT prophylaxis; SCDs/subcu heparin CODE STATUS; full code Plan -Patient was intubated and mechanically ventilated in ED -Urine drug screen positive for opiates, barbiturates, tricyclic antidepressants, benzodiazepines and marijuana concern for polysubstance use -Blood culture negative so far -Sputum culture revealing pseudomonas aeruginosa. x2 -All narcotics are currently being held -Critical care service on board -Patient continues on IV antibiotics in the form of IV zosyn. -Patient has been started on IV lasix 20 mg [id number] -Patient remains on IV Solu-Medrol -Residuals are improved and at about 100 mls and patient continues on enteral feedings at goal and tolerating -Antiseizure medications have been resumed; we do not carry briviact so patient was transitioned over to [facility]. -Monitor electrolytes and renal function -Patient is status post 1 unit of packed red blood cells with improvement in her hemoglobin -Status post PEG/Trach -Plan is for LTAC on discharge. The impression and plan of care has been dictated by Nichelle Loya, Nurse Practitioner as directed. Dr. Jayson MD I have performed a history and physical examination and medical decision making of this patient, discussed the same with the dictator, and agree with the dictators assessment and plan as written, documented as a scribe. Based on total visit time, I have performed more than 50% of this visit. Objective - Vital Signs Vital signs: Vital Signs Temp 97.3 F L 11/17/24 08:00 Pulse 90 11/17/24 12:53 Resp 24 11/17/24 11:00 BP 108/67 11/17/24 11:00 Pulse Ox 99 11/17/24 11:00 FiO2 40 11/17/24 08:53 Intake & Output 11/16/24 11/17/24 11/17/24 18:59 06:59 18:59 Intake Total 949.551 834.741 563.244 Output Total 645 1825 575 Balance 304.551 -990.259 -11.756 Weight 60.8 kg Intake: IV 283 136 255 0.9 @ KVO 40 Dextrose 5% in Water 1, 150 000 ml @ 75 mls/hr IV . [id number] [facility] Rx#:[id number] Piperacillin-Tazobactam 3 100 100 .375 gm In Sodium Chloride 0.9% 100 ml @ 25 mls/hr IVPB Q8HR [facility] Rx# :[id number] Potassium Chloride 20 meq 100 100 In Water For Injection 1 100ml.bag @ 50 mls/hr IVPB Q2H [facility] Rx#: [id number] pressure bag 33 36 15 Intake, IV Titration 206.551 148.741 88.244 Amount propofoL 1,000 mg In 206.551 148.741 88.244 Empty Bag 1 bag @ 15 MCG/ KG/MIN 4.291 mls/hr IV . [id number] [facility] Rx#:[id number] Tube Feeding 280 460 220 Other 180 90 Output: Urine 645 1825 575 Other: Voiding Method Indwelling Catheter Indwelling Catheter ABP, PAP, CO, CI - Last Documented Arterial Blood Pressure 138/71 - Labs CBC & Chem 7: 11/17/24 04:10 11/17/24 04:10 Labs: Abnormal Lab Results - Last 24 Hours (Table) 11/16/24 11/17/24 11/17/24 Range/Units 17:32 00:28 04:10 WBC 15.9 H (3.8-10.6) k/uL RBC 3.06 L (3.80-5.40) m/uL Hgb 8.6 L (11.4-16.0) gm/dL Hct 29.7 L (34.0-46.0) % MCHC 28.9 L (31.0-37.0) g/dL RDW 17.9 H (11.5-15.5) % Plt Count 652 H (150-450) k/uL Neutrophils # 15.0 H (1.3-7.7) k/uL Lymphocytes # 0.5 L (1.0-4.8) k/uL ABG pCO2 (35-45) mmHg ABG HCO3 (21-25) mmol/L ABG Total CO2 (19-24) mmol/L ABG O2 Saturation (94-97) % Hemoglobin (11.4-16.0) gm/dL Potassium (3.5-5.1) mmol/L Carbon Dioxide (22-30) mmol/L BUN (7-17) mg/dL Glucose (74-99) mg/dL POC Glucose (mg/dL) 119 H 140 H (70-110) mg/dL Total Protein (6.3-8.2) g/dL Albumin (3.5-5.0) g/dL 11/17/24 11/17/24 11/17/24 Range/Units 04:10 05:05 06:08 WBC (3.8-10.6) k/uL RBC (3.80-5.40) m/uL Hgb (11.4-16.0) gm/dL Hct (34.0-46.0) % MCHC (31.0-37.0) g/dL RDW (11.5-15.5) % Plt Count (150-450) k/uL Neutrophils # (1.3-7.7) k/uL Lymphocytes # (1.0-4.8) k/uL ABG pCO2 52 H (35-45) mmHg ABG HCO3 31 H (21-25) mmol/L ABG Total CO2 33 H (19-24) mmol/L ABG O2 Saturation 97.9 H (94-97) % Hemoglobin 8.8 L (11.4-16.0) gm/dL Potassium 3.2 L (3.5-5.1) mmol/L Carbon Dioxide 31 H (22-30) mmol/L BUN 18 H (7-17) mg/dL Glucose 128 H (74-99) mg/dL POC Glucose (mg/dL) 120 H (70-110) mg/dL Total Protein 5.6 L (6.3-8.2) g/dL Albumin 2.5 L (3.5-5.0) g/dL 11/17/24 11/17/24 Range/Units 06:12 11:35 WBC (3.8-10.6) k/uL RBC (3.80-5.40) m/uL Hgb (11.4-16.0) gm/dL Hct (34.0-46.0) % MCHC (31.0-37.0) g/dL RDW (11.5-15.5) % Plt Count (150-450) k/uL Neutrophils # (1.3-7.7) k/uL Lymphocytes # (1.0-4.8) k/uL ABG pCO2 (35-45) mmHg ABG HCO3 (21-25) mmol/L ABG Total CO2 (19-24) mmol/L ABG O2 Saturation (94-97) % Hemoglobin (11.4-16.0) gm/dL Potassium (3.5-5.1) mmol/L Carbon Dioxide (22-30) mmol/L BUN (7-17) mg/dL Glucose (74-99) mg/dL POC Glucose (mg/dL) 115 H 128 H (70-110) mg/dL Total Protein (6.3-8.2) g/dL Albumin (3.5-5.0) g/dL Assessment and Plan Time with Patient: Less than 30
[2024-11-18 00:59] LABS: Glucose,Whole Blood 168 mg/dL (70-110)
[2024-11-18 04:24] LABS: Anisocytosis Slight; Basophils % (A) 0 %; Eosinophils % (A) 0 %; HCT 30.9 % (34.0-46.0); HGB 9.1 gm/dL (11.4-16.0); Hypochromasia Marked; Lymphocytes # (A) 0.5 k/uL (1.0-4.8); Lymphocytes % (A) 2 %; MCHC 29.5 g/dL (31.0-37.0); MCV 98.4 fL (80.0-100.0); Macrocytosis Slight; Mean Platelet Volume 7.8; Monocytes # (A) 0.5 k/uL (0-1.0); Monocytes % (A) 2 %; Neutrophils # (A) 19.3 k/uL (1.3-7.7); Neutrophils % (A) 95 %; Platelet Count 659 k/uL (150-450); RBC 3.14 m/uL (3.80-5.40); RDW 17.6 % (11.5-15.5); WBC 20.3 k/uL (3.8-10.6)
[2024-11-18 04:33] LABS: African American GFR (CKD) >90 (>60 ml/min/1.73 sqM); Anion Gap 3 mmol/L; Blood Urea Nitrogen 22 mg/dL (7-17); Calcium 8.6 mg/dL (8.4-10.2); Carbon Dioxide 34 mmol/L (22-30); Chloride 104 mmol/L (98-107); Glucose 148 mg/dL (74-99); Non-African American GFR(CKD) >90 (>60 ml/min/1.73 sqM); Potassium 3.2 mmol/L (3.5-5.1); Sodium 141 mmol/L (137-145)
[2024-11-18 04:57] LABS: ABG Base Excess 6.1 mmol/L; ABG HCO3 32 mmol/L (21-25); ABG PCO2 56 mmHg (35-45); ABG PH 7.37 (7.35-7.45); ABG PO2 92 mmHg (83-108); ABG TCO2 34 mmol/L (19-24)
[2024-11-18 04:59] LABS: Allen Test Performed? no
[2024-11-18 05:12] LABS: Glucose,Whole Blood 138 mg/dL (70-110)
[2024-11-18] MEDS: POTASSIUM CHLORIDE 20 MEQ in WATER FOR INJECTION 1 100ML.BAG IVPB SCH (05:31)
--- NOTE | 2024-11-18 06:59 | XR ---
EXAMINATION TYPE: XR chest 1V portable DATE OF EXAM: 11/18/2024 CLINICAL INDICATION: Female, 54 years old with history of Mechanical ventilation, progress study. Sh ortness of breath. TECHNIQUE: Single AP portable semiupright view of the chest is obtained. COMPARISON: Chest x-ray from one day earlier and older studies. FINDINGS: Stable tracheostomy tube. Stable left sided subclavian central venous catheter. Persistent small left pleural effusion and left basilar opacity. Right lung remaining clear. Cardiac silhouette size is stable and within normal limits. Extensive surgical change to the visualized spine is redemonstrated. This makes evaluation suboptimal. Several old left lateral rib fractures are rede monstrated. IMPRESSION: Persistent small pleural effusion and associated left basilar acute infiltrate and/or ate lectasis. No significant change from one day earlier. [facility], , 11/18/2024 6:57 AM
[2024-11-18] MEDS: LORazepam 1 MG/0.5 ML VIAL IV PRN (08:08)
[2024-11-18 12:04] LABS: Glucose,Whole Blood 118 mg/dL (70-110)
--- NOTE | 2024-11-18 14:35 | P.PN ---
Subjective Progress Note Date: 11/18/24 SURGICAL PROGRESS NOTE CHIEF COMPLAINT: Respiratory failure HISTORY OF PRESENT ILLNESS: Patient is postop day #3 status post tracheostomy and PEG tube placement. Patient's tube feeds are at goal at 45 mL/h. She is tolerating the tube feeds. Afebrile. WBC 20.3 PHYSICAL EXAM: VITAL SIGNS: Reviewed. GENERAL: Well-developed in no acute distress. HEENT: Tracheostomy site clean dry and intact ABDOMEN: Soft. Nondistended. Nontender. PEG tube site dressing clean dry and intact NEUROLOGIC: Alert and oriented. Cranial nerves II through XII grossly intact. ASSESSMENT: 1. Respiratory failure status post tracheostomy placement 2. Severe protein calorie malnutrition status post PEG tube placement PLAN: -Continue tube feeds -Continue supportive care Physician Mold Design Engineer note has been reviewed by physician. Signing provider agrees with the documented findings, assessment, and plan of care. I have personally seen and examined the patient, reviewed the 3D TECHNOLOGIST /PAs history, exam and MDM and agree with the assessment and plan as written. Based on total visit time, I have performed more than 50% of the visit. As above: Patient doing well at this time. Apparently there is talk about possible transfer to long-term facility. May remove tracheostomy sutures. Continue tube feeds at goal. Will sign off. Please call if needed. Objective - Vital Signs Vital signs: Vital Signs Temp 97 F L 11/18/24 12:00 Pulse 91 11/18/24 13:00 Resp 14 11/18/24 13:00 BP 136/81 11/18/24 13:00 Pulse Ox 99 11/18/24 13:00 FiO2 40 11/18/24 12:16 Intake & Output 11/17/24 11/18/24 11/18/24 18:59 06:59 18:59 Intake Total 1008.731 861 566 Output Total 1000 1875 700 Balance 8.731 -1014 -134 Weight 60.8 kg Intake: IV 376 261 221 0.9 @ KVO 90 0 Piperacillin-Tazobactam 3 150 125 100 .375 gm In Sodium Chloride 0.9% 100 ml @ 25 mls/hr IVPB Q8HR [facility] Rx# :[id number] Potassium Chloride 20 meq 100 In Water For Injection 1 100ml.bag @ 50 mls/hr IVPB Q2H [facility]I Rx#: [id number] Potassium Chloride 20 meq 100 100 In Water For Injection 1 100ml.bag @ 50 mls/hr IVPB Q2H [facility]I Rx#: [id number] pressure bag 36 36 21 Intake, IV Titration 97.731 Amount propofoL 1,000 mg In 97.731 Empty Bag 1 bag @ 15 MCG/ KG/MIN 4.291 mls/hr IV . [id number] [facility]I Rx#:[id number] Tube Feeding 535 540 225 Other 60 120 Output: Urine 1000 1875 700 Other: Voiding Method Indwelling Catheter Indwelling Catheter ABP, PAP, CO, CI - Last Documented Arterial Blood Pressure 172/93 - Labs CBC & Chem 7: 11/18/24 04:00 11/18/24 04:00 Labs: Abnormal Lab Results - Last 24 Hours (Table) 11/17/24 11/18/24 11/18/24 Range/Units 17:43 00:58 04:00 WBC 20.3 H (3.8-10.6) k/uL RBC 3.14 L (3.80-5.40) m/uL Hgb 9.1 L (11.4-16.0) gm/dL Hct 30.9 L (34.0-46.0) % MCHC 29.5 L (31.0-37.0) g/dL RDW 17.6 H (11.5-15.5) % Plt Count 659 H (150-450) k/uL Neutrophils # 19.3 H (1.3-7.7) k/uL Lymphocytes # 0.5 L (1.0-4.8) k/uL ABG pCO2 (35-45) mmHg ABG HCO3 (21-25) mmol/L ABG Total CO2 (19-24) mmol/L ABG O2 Saturation (94-97) % Hemoglobin (11.4-16.0) gm/dL Potassium (3.5-5.1) mmol/L Carbon Dioxide (22-30) mmol/L BUN (7-17) mg/dL Glucose (74-99) mg/dL POC Glucose (mg/dL) 127 H 168 H (70-110) mg/dL 11/18/24 11/18/24 11/18/24 Range/Units 04:00 04:48 05:10 WBC (3.8-10.6) k/uL RBC (3.80-5.40) m/uL Hgb (11.4-16.0) gm/dL Hct (34.0-46.0) % MCHC (31.0-37.0) g/dL RDW (11.5-15.5) % Plt Count (150-450) k/uL Neutrophils # (1.3-7.7) k/uL Lymphocytes # (1.0-4.8) k/uL ABG pCO2 56 H (35-45) mmHg ABG HCO3 32 H (21-25) mmol/L ABG Total CO2 34 H (19-24) mmol/L ABG O2 Saturation 98.0 H (94-97) % Hemoglobin 8.8 L (11.4-16.0) gm/dL Potassium 3.2 L (3.5-5.1) mmol/L Carbon Dioxide 34 H (22-30) mmol/L BUN 22 H (7-17) mg/dL Glucose 148 H (74-99) mg/dL POC Glucose (mg/dL) 138 H (70-110) mg/dL 03// Range/Units 12:02 WBC (3.8-10.6) k/uL RBC (3.80-5.40) m/uL Hgb (11.4-16.0) gm/dL Hct (34.0-46.0) % MCHC (31.0-37.0) g/dL RDW (11.5-15.5) % Plt Count (150-450) k/uL Neutrophils # (1.3-7.7) k/uL Lymphocytes # (1.0-4.8) k/uL ABG pCO2 (35-45) mmHg ABG HCO3 (21-25) mmol/L ABG Total CO2 (19-24) mmol/L ABG O2 Saturation (94-97) % Hemoglobin (11.4-16.0) gm/dL Potassium (3.5-5.1) mmol/L Carbon Dioxide (22-30) mmol/L BUN (7-17) mg/dL Glucose (74-99) mg/dL POC Glucose (mg/dL) 118 H (70-110) mg/dL
--- NOTE | 2024-11-18 15:30 | P.PN ---
Subjective Progress Note Date: 11/18/24 Principal diagnosis: Reason for follow-up is pneumonia Patient is a 54-year-old female with a past medical history significant for COPD DVT hypertension hyperlipidemia who recently did have a cervical thoracic spine surgery revision for a nonhealing wound to the mid/upper back area patient cultures were negative has been brought to the hospital on the patient was found to be unresponsive requiring elevation and admission to the ICU Patient is status post tracheostomy and PEG tube placement completed on 11/15/2024. On today's evaluation that is 11/18/2024, the patient continues to be afebrile, the patient is intubated through the trach on 40% FiO2 hemodynamic stable not requiring any pressor support no other changes reported by the nursing staff. Patient white count is up to 20.3 creatinine is 0.66 chest x-ray persistent small effusion and left basilar atelectasis/acute infiltrate Objective - Vital Signs Vital signs: Vital Signs Temp 97 F L 11/18/24 12:00 Pulse 91 11/18/24 13:00 Resp 14 11/18/24 13:00 BP 136/81 11/18/24 13:00 Pulse Ox 99 11/18/24 13:00 FiO2 40 11/18/24 12:16 Intake & Output 11/17/24 11/18/24 11/18/24 18:59 06:59 18:59 Intake Total 1008.731 861 566 Output Total 1000 1875 700 Balance 8.731 -1014 -134 Weight 60.8 kg Intake: IV 376 261 221 0.9 @ KVO 90 0 Piperacillin-Tazobactam 3 150 125 100 .375 gm In Sodium Chloride 0.9% 100 ml @ 25 mls/hr IVPB Q8HR [facility] Rx# :[id number] Potassium Chloride 20 meq 100 In Water For Injection 1 100ml.bag @ 50 mls/hr IVPB Q2H [facility] Rx#: [id number] Potassium Chloride 20 meq 100 100 In Water For Injection 1 100ml.bag @ 50 mls/hr IVPB Q2H [facility]I Rx#: [id number] pressure bag 36 36 21 Intake, IV Titration 97.731 Amount propofoL 1,000 mg In 97.731 Empty Bag 1 bag @ 15 MCG/ KG/MIN 4.291 mls/hr IV . [id number] [facility]I Rx#:[id number] Tube Feeding 535 927 221 Other 60 120 Output: Urine 1000 1875 700 Other: Voiding Method Indwelling Catheter Indwelling Catheter ABP, PAP, CO, CI - Last Documented Arterial Blood Pressure 172/93 - Exam GENERAL DESCRIPTION: Middle-age female intubated through the trach RESPIRATORY SYSTEM: Unlabored breathing , decreased breath sounds at bases HEART: S1 S2 regular rate and rhythm , ABDOMEN: Soft , no tenderness EXTREMITIES: No edema feet - Labs CBC & Chem 7: 11/18/24 04:00 11/18/24 04:00 Labs: Abnormal Lab Results - Last 24 Hours (Table) 11/17/24 11/18/24 11/18/24 Range/Units 17:43 00:58 04:00 WBC 20.3 H (3.8-10.6) k/uL RBC 3.14 L (3.80-5.40) m/uL Hgb 9.1 L (11.4-16.0) gm/dL Hct 30.9 L (34.0-46.0) % MCHC 29.5 L (31.0-37.0) g/dL RDW 17.6 H (11.5-15.5) % Plt Count 659 H (150-450) k/uL Neutrophils # 19.3 H (1.3-7.7) k/uL Lymphocytes # 0.5 L (1.0-4.8) k/uL ABG pCO2 (35-45) mmHg ABG HCO3 (21-25) mmol/L ABG Total CO2 (19-24) mmol/L ABG O2 Saturation (94-97) % Hemoglobin (11.4-16.0) gm/dL Potassium (3.5-5.1) mmol/L Carbon Dioxide (22-30) mmol/L BUN (7-17) mg/dL Glucose (74-99) mg/dL POC Glucose (mg/dL) 127 H 168 H (70-110) mg/dL 11/18/24 11/18/24 11/18/24 Range/Units 04:00 04:48 05:10 WBC (3.8-10.6) k/uL RBC (3.80-5.40) m/uL Hgb (11.4-16.0) gm/dL Hct (34.0-46.0) % MCHC (31.0-37.0) g/dL RDW (11.5-15.5) % Plt Count (150-450) k/uL Neutrophils # (1.3-7.7) k/uL Lymphocytes # (1.0-4.8) k/uL ABG pCO2 56 H (35-45) mmHg ABG HCO3 32 H (21-25) mmol/L ABG Total CO2 34 H (19-24) mmol/L ABG O2 Saturation 98.0 H (94-97) % Hemoglobin 8.8 L (11.4-16.0) gm/dL Potassium 3.2 L (3.5-5.1) mmol/L Carbon Dioxide 34 H (22-30) mmol/L BUN 22 H (7-17) mg/dL Glucose 148 H (74-99) mg/dL POC Glucose (mg/dL) 138 H (70-110) mg/dL 11/18/24 Range/Units 12:02 WBC (3.8-10.6) k/uL RBC (3.80-5.40) m/uL Hgb (11.4-16.0) gm/dL Hct (34.0-46.0) % MCHC (31.0-37.0) g/dL RDW (11.5-15.5) % Plt Count (150-450) k/uL Neutrophils # (1.3-7.7) k/uL Lymphocytes # (1.0-4.8) k/uL ABG pCO2 (35-45) mmHg ABG HCO3 (21-25) mmol/L ABG Total CO2 (19-24) mmol/L ABG O2 Saturation (94-97) % Hemoglobin (11.4-16.0) gm/dL Potassium (3.5-5.1) mmol/L Carbon Dioxide (22-30) mmol/L BUN (7-17) mg/dL Glucose (74-99) mg/dL POC Glucose (mg/dL) 118 H (70-110) mg/dL Assessment and Plan (1) Pneumonia Current Visit: Yes Status: Acute Code(s): J18.9 - PNEUMONIA, UNSPECIFIED ORGANISM SNOMED Code(s): 242702967 (2) Abnormal CT scan, chest Current Visit: Yes Status: Acute Code(s): R93.89 - ABNORMAL FINDINGS ON DX IMAGING OF OTH BODY STRUCTURES SNOMED Code(s): 97294215884816745 (3) Leukocytosis Current Visit: No Status: Acute Code(s): D72.829 - ELEVATED WHITE BLOOD CELL COUNT, UNSPECIFIED SNOMED Code(s): 853205334 Plan: 1patient presented to hospital after the patient was found to be unresponsive at home concerning for possible drug overdose also noted to have significant finding on a chest x-ray and the CT concerning for possible pneumonia question of aspiration etiology in this patient has been around the hospital concerning for possible resistant gram-positive as well as gram-negative pathogen, the thoracic or cervical incision currently looks clean without cellulitis or any drainage 2-patient did have Pseudomonas aeruginosa in the sputum concerning for pneumonia possible aspiration, 3patient is afebrile and white count is slightly up today question steroid related will monitor closely continue with Zosyn Dictation was produced using [employer] dictation software. please excuse any grammatical, word or spelling errors.
--- NOTE | 2024-11-18 16:04 | P.PN ---
Subjective Progress Note Date: 11/18/24 Progress Note Date: 11/13/24 This is a 54-year-old female patient with a known history of COPD, hypertension, hyperlipidemia, coronary disease, congestive heart failure, DVT, hypothyroidism, seizure disorder, multiple previous back surgeries. She had most recently undergone a C2-T7 posterior lateral fusion on 09/09/2024. She developed a significant infection and wound dehiscence and was back here in the hospital and had undergone irrigation and excisional debridement of a thoracic spine wound on 10/27/2024 and discharged to home on 11/02/2024. She was brought back here to the emergency room earlier this morning after being found obtunded and unresponsive by her . She was intubated here in the emergency department. Chest x- ray revealed bilateral upper interstitial opacities concerning for pneumonia versus fluid volume overload. Evidence of COPD. Endotracheal tube and nasogastric tubes in position. CT scan of the brain revealed no acute intrac ranial process. CT angiogram ruled out pulmonary embolism. There is bilateral upper lobe reticular opacities with right greater than left raising concerns for infection. Few foci of gas identified within the left supraclavicular region and left anterior chest wall possibly with venous vasculature. CT scan of the thoracic spine reveals extensive postsurgical changes. No gross evidence of complication. White count 9.0. Hemoglobin 10.6. Platelets 800,000. INR 0.9. Sodium 144. Potassium 4.0. Bicarb 27. BUN 16. Creatinine 0.96. Glucose 111. Lactic acid 3.0. AST 86. ALT 39. Troponin 0.044. Urinalysis clean. Drug urine screen is positive for opiates, barbiturates, antidepressants, benzodiazepines and marijuana. Initial arterial blood gases on 100% FiO2 revealed a PaO2 of 34, pCO2 89 and a pH of 7.07. Follow-up blood gases on the mechanical ventilator on 100% revealed a PaO2 greater than 420, pCO2 61 and a pH of 7.20. Her current vent settings are assist-control mode at a rate of 26, tidal volume 320 and FiO2 50% and a PEEP of 5. She is sedated on propofol at 50 mcg/kg/h. She has been initiated on vancomycin and cefepime. Received Narcan without improvement initially. She received 2 L of fluid resuscitation. 11/07/2024: Patient is a 54 year old female who was admmited to the ICU on 11/06/2024 with acute hypoxic respiratory failure. She arrived to ED unresponsive. Initially thought it was narcotic overdose. Did not improve with narcan. Ultimately intubated and mechanically ventillated on 11/06 . Patient tested positive for opiates, barbiturates, tricyclic's, benzodiazepines, and marijuana. Her underlying problems include COPD, hypertension, hyperlipidemia, coronary disease, congestive heart failure, DVT, hypothyroidism, seizure disorder, multiple previous back surgeries, T2 vertebral fracture with revision of C2-T7 posterior lateral fusion on 09/09/2024 patient developed surgical wound infection and dehiscence of wound. Patient was seen today 11/07/2024. Remains intubated and mechanically ventillated on assist controlled at a rate of 30, tidal volume 320, FiO2 50%, PEEP of 5. ABG: pH 7.17/pCO2 66 /pO2 70. Currently on propofol 50 mcg/kg/min and normal saline 0.9% at 125 cc/hr. No acute events overnight. Repeat CXR showing bilateral pleural and interstitial opacities. Labs WBC 38.9 Hgb 8.2, platelets 659, CO2 21, anion gap 11, BUN 16, creatinine 0.96 CRP 26.5. Patient currently on IV vancomycin dosed by pharmacy and cefepime 2 g IVPB every 12 hours. Blood cultures are pending. MRSA/MSSA screening pending. Currently not on any tube feeding. The patient is seen on 11/08/2024 in room 262. She remains on volume assist- control, rate 30, tidal volume 320, FiO2 40%, PEEP of 5. Most recent blood gases show pO2 of 110, pCO2 of 56, pH is 7.24. The patient is on propofol at 50 mcg/kg/min, saline at 125 cc an hour which we will decrease to 75cc an hour d/t suspected dillutional anemia, and vancomycin and cefepime. Tube feedings vital HP 40 cc/hr which is goal. Blood cultures showing no growth. Left brachial ART line was placed last night. All labs, x-rays, and medications are reviewed. CXR showing bilateral interstitial opacities. White count 18.7, hemoglobin 7.0, platelet count 505,000. BUN was 19, creatinine was 0.85. We will continue to follow make recommendations along the way. All labs, x-rays, and medications are reviewed. The patient has a history of underlying COPD, hypertension, hyperlipidemia, coronary disease, heart failure, DVT, hypothyroidism, seizure disorder, and multiple surgical procedures on her cervical and thoracic spine. Prognosis is guarded. The patient is seen on 11/09/2024 in room 262. She remains on volume assist- control, rate 30, tidal volume 320, FiO2 40%, PEEP of 5. Most recent blood gases show pO2 of 89, pCO2 of 56, pH is 7.24. The patient is on propofol at 20 mcg/kg/min, saline at 75cc. Remains on vancomycin and cefepime. Yesterday was placed IV solumedrol 40 mg q8hr, but will increase to 60 mg q6hr. Tube feedings vital HP 40 cc/hr which is goal. Blood cultures showing no growth. Sputum cultures showing pseudomonas. MRSA/MSSA nares negative. Yesterday she did not tolerate being off sedation. Only lasted for 20 minutes due to her peak pressui ng and being tachypnic. She was given dilaudid yesterday which caused her to be hypotensive so she was subsequently put on levofed but has since been off it since 530a. All labs, x-rays, and medications are reviewed. CXR still showing bilateral interstitial opacities likely from atypical pneumonia. White count 17.9, hemoglobin 8.1, platelet count 572,000. BUN was 23, creatinine was 0.67. AST 35, ALT 58. We will continue to follow make recommendations along the way. All labs, x-rays, and medications are reviewed. The patient has a history of underlying COPD, hypertension, hyperlipidemia, coronary disease, heart failure, DVT, hypothyroidism, seizure disorder, and multiple surgical procedures on her cervical and thoracic spine. Prognosis is guarded. The patient is seen on 11/10/2024 in room 262. She remains on volume assist- control, rate 30, tidal volume 320, FiO2 40%, PEEP of 5. Most recent blood gases show pO2 of 78, pCO2 of 52, pH is 7.29. The patient is on propofol at 50 mcg/kg/min, saline at 75cc/hr. Remains on vancomycin and cefepime. Remains on IV solumedrol 60 mg q6hr. Tube feedings vital HP 20 cc/hr with a goal of 40. Yesterday she did not tolerate being off sedation. She was following some commands, but became agitated and hypertensive. All labs, x-rays, and medications are reviewed. CXR still showing bilateral interstitial opacities likely from atypical pneumonia. White count 18.2, hemoglobin 8.6, platelet count 625,000. BUN was 26, creatinine was 0.73. We will continue to follow make recommendations along the way. All labs, x-rays, and medications are reviewed. The patient has a history of underlying COPD, hypertension, hyperlipidemia, coronary disease, heart failure, DVT, hypothyroidism, seizure disorder, and multiple surgical procedures on her cervical and thoracic spine. Will attempt to wean off sedation today. May end up being a candidate for trach and PEG. Prognosis is guarded. The patient is seen on 11/12/2024 in room 262. She remains on volume assist- control, rate 30, tidal volume 320, FiO2 40%, PEEP of 5. Most recent blood gases show pO2 of 89, pCO2 of 54, pH is 7.29. The patient had a large differ ence in her peak and plateau pressure, suggesting increased airways resistance. Airway resistance calculation was 17 cm H20/L/sec. Dynamic compliance 11.8 mL/cm of H20. Static compliance 27 mL/cm H20. The patient is on propofol at 50 mcg/kg/min, saline at 70cc/hr. Sputum cultures showing pseudomonas. Cefepime was switched to Zosyn. Remains on IV solumedrol 60 mg q6hr. Tube feedings vital HP 30 cc/hr with a goal of 45. Yesterday she did not tolerate being off sedation. She became agitated and hypertensive. She has been on ventillator since 11/06. All labs, x-rays, and medications are reviewed. CXR showing diffuse pulmonary vascular congestation. White count 14.6, hemoglobin 7.5, platelet count 598,000. BUN was 26, creatinine was 0.77. We will continue to follow make recommendations along the way. All labs, x-rays, and medications are reviewed. The patient has a history of underlying COPD, hypertension, hyperlipidemia, coronary disease, heart failure, DVT, hypothyroidism, seizure disorder, and multiple surgical procedures on her cervical and thoracic spine. Will attempt to wean off sedation today. May end up being a candidate for trach and PEG. Prognosis is guarded. The patient is seen today November 13, 2024 in follow-up in the intensive care unit. She remains intubated and on the mechanical ventilator and assist-control mode with a rate of 30, tidal volume 320, FiO2 40% and a PEEP of 5. Morning blood gases revealed a PaO2 of 76, pCO2 53 and a pH of 7.31. She is sedated on propofol at 50 mcg/kg/min. Receiving normal saline at 75 mL/h. Being nourished with vital HP at 40 mL/h with a goal of 45 mL/h. Chest x-ray shows no change in diffuse interstitial process possibly chronic in nature. No airspace consolidation, pleural effusion or pneumothorax. Sputum culture is positive for Pseudomonas aeruginosa. Count 14.2. Hemoglobin 6.8. Platelets 584. Sodium 146. Potassium 3.6. Bicarb 28. BUN 24. Creatinine 0.7. Glucose 124. She is continued on DuoNeb inhalations, Pulmicort and performance inhalations, Solu- Medrol. Antibiotics in the form of Zosyn. On 11/14/2024, patient is being seen and follow-up. Is a very complicated case of patient with COPD who underwent an extensive spine surgery. The patient initially had a C2 T7 posterior lateral fusion that was done on 09/09/2024. The patient had a T2 vertebral fracture. Subsequently, she was discharged home to be readmitted for wound dehiscence and suspected infection. The patient underwent irrigation and excisional debridement of the thoracic spine wound and T7 T11 fusion with cement augmentation of T8 T10 vertebral bodies. The patient was discharged home to be readmitted for altered mentation and diminished level of consciousness. This was suspected to be related to excessive narcotic use along with COPD. As such, the patient was intubated and placed on mechanical ventilation the patient has failed to wean since. She has failed sedation holiday. She becomes quite restless and asynchronous with mechanical ventilator. Furthermore, she was found to have fullness in her lungs and a chest x-ray from today showing no acute pulmonary filtrates. This could be a colonization versus a true infection as the patient's initial chest x-ray at time of admission was showing extensive opacities in the lungs consistent with pneumonia. Noted does infiltrate improved pressure to 1 in the right upper lobe. The patient is currently on IV Zosyn. This morning, the patient is on assist-control mode of mechanical ventilation at rate of 30, tidal volume of 320, FiO2 of 40% with a PEEP of 5. Blood gas showed pH of 7.31 with a pCO2 of 54 and pO2 of 90. She is sedated on propofol running at 50 mcg/kg/min. She is on normal saline at rate of 75 cc an hour. Fluid balance is +1.2 L over the past 24 hours. She is on vital HP running at 45 cc an hour. White cell count of 12.7, hemoglobin is at 6.4 and a platelet count of 594. Sodium levels at 147, potassium is at 3.3, BUN 26 with a creatinine of 0.69. She remains on DuoNeb updrafts. She remains on IV Solu-Medrol 60 mg every 6 hours. She remains on IV Zosyn. On 11/15/2024, the patient is being seen for a follow-up. The patient remains intubated on mechanical ventilator and the patient is awaiting a tracheostomy and a PEG tube insertion today. This morning, the patient is on a propofol running at 50 mcg/kg/min. The patient is also on D5 half-normal saline at rate of 75 cc an hour. The patient is hemodynamically stable. The patient's blood gases from today showed a pH of 7.28 with a pCO2 of 57 and pO2 of 80 and this was done on a assist-control mode at rate of 30, tidal volume of 320, FiO2 40% with a PEEP of 5. Chest x-ray shows no acute cardiopulmonary process. ET tube is in good location. NG tube is in good location. Extensive surgical changes seen involving the thoracic spine. The white cell count of 21, hemoglobin is at 8.7 and a platelet count of 661. Sodium is at 147, chloride 114, bicarb is 29, BUN 22 with a creatinine of 0.6. Blood sugar today is at 103. This plan is to proceed with a PEG and a tracheostomy tube insertion today. This will be done by general surgery. The patient remains on IV Zosyn. On 11/16/2024, the patient is being seen for a follow-up. The patient is status post tracheostomy tube insertion and the PEG tube was also inserted for enteral feeding and nutritional support. The procedure was successful without any c omplications. The patient this morning is on propofol which is running at 50 mcg/kg/min. She assist-control mode at rate of 24, tidal volume of 350, FiO2 of 40% with a PEEP of 5. The blood gas showed a pH of 7.3 with a pCO2 of 58 and pO2 76. The peak airway pressure is at 34 and the patient remains bronchospastic and wheezy. No significant respiratory secretions. Follow-up chest x-ray was done today and the patient has developed increased interstitial marking bilaterally. No focal airspace disease or opacity. Tracheostomy tube is in good location. Postsurgical changes were also seen in the lower lobes bilaterally. The patient's white cell count is 16.6, hemoglobin is at 8 with a platelet count of 687. Sodium is at 140, potassium is at 3.6, bicarb is at 29, BUN 17 with a creatinine of 0.6. Remains on bronchodilators. Remains on IV Solu-Medrol. Remains on IV Zosyn as an empiric antibiotic coverage. Rest of the medication remain unchanged and the patient will be started on enteral feeding for nutritional support. She is also on Lovenox 40 mg subcu for DVT prophylaxis. On 11/17/2024, the patient is being seen for a follow-up. This morning, the patient has been more responsive as the patient is being weaned off the propofol. Propofol is running at 30 mcg/kg/min. She is status post a Symptom insertion. She remains on assist-control mode of mechanical ventilation at rate of 24, tidal volume of 350, FiO2 40% with a PEEP of 5. Follow-up blood gas shows improvement in acid-base status. pH of 7.38 with a pCO2 of 22 and pO2 of 94. The peak airway pressure is at 30. Fluid balance is +60 disease over the past 24 hours. Chest x-ray shows no acute pulmonary infiltrates. Previous sputum samples showed Pseudomonas aeruginosa. Remains on DuoNeb updrafts. Remains on Perforomist and Pulmicort. Remains on IV Solu-Medrol 60 mg every 6 hours. Remains on IV Zosyn. Will start enteral feeding for nutritional support. Will continue weaning the sedation. The white cell count is 15.9, improving, hemoglobin stable at 8.6 and a platelet count is at 652. Sodium is at 139, potassium is at 3.2, BUN is 18 with a creatinine of 0.6. LFTs are normal. On 11/18/2024, the patient is being seen for a follow-up. This morning, the patient is on propofol. She is arousable and she is following simple commands. She is profoundly weak. She is on assist-control mode of mechanical ventilation at rate of 24, tidal volume of 350, FiO2 40% with a PEEP of 5. Blood gas showed pH of 7.37 with a pCO2 of 50 and pO2 of 92. The peak airway pressure is 27. Chest x-ray is unchanged. No pulmonary infiltrates. The patient is on IV Lasix. Fluid balance is -1 L over the past 24 hours. The patient remains on vital HP for enteral feeding in situ support and the patient has a PEG tube in place. No other significant events overnight. The patient has not required any further sedation while being off propofol. The white cell count of 20 with a hemoglobin 9.1 and platelet count of 659. Sodium is at 141, BUN is 22 with a creatinine of 0.6 and a serum bicarb is at 34. Glucose at 138. Objective - Vital Signs Vital signs: Vital Signs Temp 97 F L 11/18/24 12:00 Pulse 80 11/18/24 15:00 Resp 12 11/18/24 15:00 BP 131/78 11/18/24 15:00 Pulse Ox 97 11/18/24 15:00 FiO2 40 11/18/24 12:16 Intake & Output 11/17/24 11/18/24 11/18/24 18:59 06:59 18:59 Intake Total 1008.731 861 692 Output Total 1000 1875 1700 Balance 8.731 -1014 -1008 Weight 60.8 kg Intake: IV 376 261 247 0.9 @ KVO 90 0 20 Piperacillin-Tazobactam 3 150 125 100 .375 gm In Sodium Chloride 0.9% 100 ml @ 25 mls/hr IVPB Q8HR [facility] Rx# :[id number] Potassium Chloride 20 meq 100 In Water For Injection 1 100ml.bag @ 50 mls/hr IVPB Q2H [facility] Rx#: [id number] Potassium Chloride 20 meq 100 100 In Water For Injection 1 100ml.bag @ 50 mls/hr IVPB Q2H [facility] Rx#: [id number] pressure bag 36 36 27 Intake, IV Titration 97.731 Amount propofoL 1,000 mg In 97.731 Empty Bag 1 bag @ 15 MCG/ KG/MIN 4.291 mls/hr IV . [id number] [facility] Rx#:[id number] Tube Feeding 535 540 325 Other 60 120 Output: Urine 1000 1875 1700 Other: Voiding Method Indwelling Catheter Indwelling Catheter Indwelling Catheter ABP, PAP, CO, CI - Last Documented Arterial Blood Pressure 153/72 - Exam GENERAL EXAM: The patient is on the mechanical ventilator. The patient tracheostomy tube in place, and the patient is currently off propofol. Following simple commands. HEAD: Normocephalic. EYES: Normal reaction of pupils, equal size. NOSE: Clear with pink turbinates. THROAT: Oral endotracheal and gastric tube secured in place. No erythema or exudates. Tracheostomy tube in place. NECK: No masses, no JVD. CHEST: No chest wall deformity. LUNGS: Equal air entry. Diminished breath sounds bilateral lung with diffuse expiratory wheezes throughout the lung bills and prolongation of the exhalation phase of breathing. CVS: S1 and S2 normal with no audible murmur, regular rhythm. ABDOMEN: No hepatosplenomegaly, normal bowel sounds, no guarding or rigidity. The patient has a PEG tube in place and the exit site is dry clean and intact. SPINE: No scoliosis or deformity SKIN: No rashes CENTRAL NERVOUS SYSTEM: Sedated, tone is normal in all 4 extremities. EXTREMITIES: There is no peripheral edema. No clubbing, no cyanosis. Peripheral pulses are intact. Arousable and following simple commands. Profound generalized weakness in all 4 extremities. - Labs CBC & Chem 7: 11/18/24 04:00 11/18/24 04:00 Labs: Abnormal Lab Results - Last 24 Hours (Table) 11/17/24 11/18/24 11/18/24 Range/Units 17:43 00:58 04:00 WBC 20.3 H (3.8-10.6) k/uL RBC 3.14 L (3.80-5.40) m/uL Hgb 9.1 L (11.4-16.0) gm/dL Hct 30.9 L (34.0-46.0) % MCHC 29.5 L (31.0-37.0) g/dL RDW 17.6 H (11.5-15.5) % Plt Count 659 H (150-450) k/uL Neutrophils # 19.3 H (1.3-7.7) k/uL Lymphocytes # 0.5 L (1.0-4.8) k/uL ABG pCO2 (35-45) mmHg ABG HCO3 (21-25) mmol/L ABG Total CO2 (19-24) mmol/L ABG O2 Saturation (94-97) % Hemoglobin (11.4-16.0) gm/dL Potassium (3.5-5.1) mmol/L Carbon Dioxide (22-30) mmol/L BUN (7-17) mg/dL Glucose (74-99) mg/dL POC Glucose (mg/dL) 127 H 168 H (70-110) mg/dL 11/18/24 11/18/24 11/18/24 Range/Units 04:00 04:48 05:10 WBC (3.8-10.6) k/uL RBC (3.80-5.40) m/uL Hgb (11.4-16.0) gm/dL Hct (34.0-46.0) % MCHC (31.0-37.0) g/dL RDW (11.5-15.5) % Plt Count (150-450) k/uL Neutrophils # (1.3-7.7) k/uL Lymphocytes # (1.0-4.8) k/uL ABG pCO2 56 H (35-45) mmHg ABG HCO3 32 H (21-25) mmol/L ABG Total CO2 34 H (19-24) mmol/L ABG O2 Saturation 98.0 H (94-97) % Hemoglobin 8.8 L (11.4-16.0) gm/dL Potassium 3.2 L (3.5-5.1) mmol/L Carbon Dioxide 34 H (22-30) mmol/L BUN 22 H (7-17) mg/dL Glucose 148 H (74-99) mg/dL POC Glucose (mg/dL) 138 H (70-110) mg/dL 11/18/24 Range/Units 12:02 WBC (3.8-10.6) k/uL RBC (3.80-5.40) m/uL Hgb (11.4-16.0) gm/dL Hct (34.0-46.0) % MCHC (31.0-37.0) g/dL RDW (11.5-15.5) % Plt Count (150-450) k/uL Neutrophils # (1.3-7.7) k/uL Lymphocytes # (1.0-4.8) k/uL ABG pCO2 (35-45) mmHg ABG HCO3 (21-25) mmol/L ABG Total CO2 (19-24) mmol/L ABG O2 Saturation (94-97) % Hemoglobin (11.4-16.0) gm/dL Potassium (3.5-5.1) mmol/L Carbon Dioxide (22-30) mmol/L BUN (7-17) mg/dL Glucose (74-99) mg/dL POC Glucose (mg/dL) 118 H (70-110) mg/dL Assessment and Plan Plan: Advanced COPD, failure to wean with chronic hypoxic and hypercapnic respiratory failure with ongoing history of the exacerbation. She was on sample was positi ve for Pseudomonas aeruginosa. Due to failure to wean, the patient was given a tracheostomy tube on 11/15/2024. Chest x-ray is clear. Follow-up blood gas showed improvement in the acid-base status. There is also improvement in the COPD exacerbation and the patient is less bronchospastic and wheezy. Acid-base status is improved and the patient has a lower peak airway pressure while being on the mechanical ventilator Acute on chronic hypoxic and hypercapnic respiratory failure due to above Advanced COPD Altered mental status, obtunded requiring intubation and mechanical ventilatory support on November 06, 2024. T 8 fracture and the patient had spine surgery. The patient was discharged from the hospital following surgery on 10/27/2024 for open treatment of a T8 fracture, irrigation and excisional debridement of thoracic spine wound measuring 10 x 7 x 4 cm, posterior lateral instrumented fusion of T7-T11 and cement augmentation of T8-T10 vertebral bodies. T2 vertebral fracture with revision of C2-T7 posterior lateral fusion on 09/09/2024 Surgical site infection and wound dehiscence, wound and blood cultures revealed no growth Acute leukocytosis, improved Acute on chronic anemia with a hemoglobin is stable for now Rectal prolapse History of hypertension History of hyperlipidemia History of coronary artery disease History of heart failure with preserved ejection fraction based on echocardiogram from July 2023 History of gastroesophageal reflux disease History of seizure disorder History of hypothyroidism History of anxiety/depression/PTSD Plan: Put the patient on a PSV of 7 and a PEEP of 5. Subsequent blood gases are fine she could be potentially placed on a trach collar. The patient is currently off sedation. Tracheostomy tube has been inserted successfully. PEG tube has been inserted successfully and the patient was started on enteral feeding for nutritional support Continue Zosyn Continue DuoNeb inhalations Continue Solu-Medrol Continue Pulmicort and Perforomist inhalations Lovenox for DVT prophylaxis Continue IV Lasix 20 mg IV push every 12 hours, fluid balance is negative. Monitor electrolytes We will continue to follow make further recommendations based on her clinical status Critical care evaluation, 32 minutes Time with Patient: Greater than 30
--- NOTE | 2024-11-18 16:23 | P.PN ---
Subjective Progress Note Date: 11/18/24 Patient is evaluated today in follow up in the intensive care unit. Patient remains intubated on the mechanical ventilator with PEEP of 5 and FiO2 of 40%. Patient remains sedated. LFTs remain elevated, white blood cell count up to 38. Blood culture pending. Patient continues on IV Vancomycin and IV cefepime. ID following. Chest xray today reveals stable upper lobe interstitial opacities. Spinal surgery evaluated the patient felt the wound was noninfectious and healing well. Patients heart rate has been in the 120s was resumed on home medication of propanolol and has had improvement in the heart rate down to the 80s this afternoon. 11/08/2024 Patient is evaluated today in follow up in the ICU. Remains intubated and sedated on the mechanical ventilator with settings at PEEP of 5 and 40% FiO2. Chest xray today reveals interstitial opacities correlating for atypical pneumonia. There is extensive fixation hardware throughout the spine. White blood cell count of 18.7, hgb 7.0, MCV 105.6. Magnesium 1.2, potassium 3.3. Remains on IV cefepime, IV vancomycin. Has been started on systemic steroids. P atient with low grade temp of 99.8 today. Blood pressure low/normal. 11/09/2024 Patient is evaluated in the Intensive care unit, family at the bedside. Patient remains on the mechanical ventilator with PEEP of 5, FiO2 of 40%. Not ready for weaning today. Chest xray reveals interstitial opacities of the lungs correlate for atypical pneumonia. Sputum positive for pseudomonas. Patient remains on IV Cefepime. Also on IV solumedrol. Patient is sedated with propofol. Normal saline is running at 75 mls/hr. White blood cell count 17.9, hgb 8.1. Sodium 145, potassium 4.1, BUN 23, creatinine 0.67. Patient with low grade temp 99 axillary. 11/10/2024 Patient evaluated today in the intensive care unit. She remains sedated and intubated on mechanical ventilator settings of PEEP of 5 with FiO2 40%. She is awake and alert although her eyes are not tracking. She does remain on propofol. Chest x-ray today reveals interstitial opacities of the lungs are unchanged. Sputum culture shows Pseudomonas x 2. Her labs today reveal a white blood cell count of 18.2, hemoglobin 8.6, platelet count of 625, sodium of 145, potassium 3.8, BUN of 26, creatinine of 0.73, magnesium 2.1. Her blood glucose is controlled. She is having some residuals with the enteral feedings per the nurse they have been decreased to 20 mL/h and will monitor the residuals closely. Patient continues on IV cefepime IV Solu-Medrol. She is sedated with IV propofol she is on normal saline at 75 mL/h. Pulmonary is considering this patient for tracheostomy and PEG tube placement 11/11/2024 Patient evaluated in the ICU patient is unable to be weaned and continues to become agitated when weaning off the propofol. Residuals are better today and tube feeds up to 30 mls/hr and she is having bowel movements. Antibiotics have been transitioned to IV zosyn. ID following closely. Labs today reveal white blood cell count 19.2, hgb 8.3, sodium 144, potassium 4.0, BUN 27, creatinine 0.66. Chest xray today reveals stable findings. 11/14/2024 Patient is evaluated today in the intensive care unit. No family able to bring patients briviact up to the hospital so she has been started on oral keppra. Continues to be sedated and intubated on the mechanical ventilator. Chest xray today reveals no new acute pulmonary process. Hemoglobin 6.4 today and patient scheduled to receive 1 unit of PRBC. White blood cell count down to 12.7. Sodium 147, potassium 3.3., BUN 26, creatinine 0.69. General surgery was consulted for PEG/Trach. 11/15/2024 Patient is evaluated in follow-up remains in the ICU she is sedated and intubated; on the mechanical ventilator with an FiO2 of 40% PEEP of 5. Patient will be going for trach and PEG tube placement. Chest x-ray today reveals no acute new pulmonary process. White blood cell count is 21.9, hemoglobin 8.7, sodium of 147 potassium 3.8, BUN 22 creatinine 0.64 magnesium 1.9. 11/16/2024 Patient is evaluated in follow-up remains in the intensive care unit. Patient is currently sedated with propofol she is currently intubated on mechanical ventilator with a FiO2 of 40% and a PEEP of 5. Patient underwent tracheostomy and PEG tube placement yesterday. Chest x-ray reveals no new acute process. Improved bilateral interstitial edema noted. Patient to be started on oral Lasix today. She continues on IV Zosyn. Her labs reveal a white blood cell count of 16.6, hemoglobin 8.7, sodium of 140, potassium 3.6, creatinine 0.64. 11/17/2024 Patient evaluated in the ICU. Remains on the mechanical ventilator intubated. Awake alert and following some commands. Status post tracheostomy and PEG tube placement. Labs today 15.9, hgb 8.6, sodium 139, potassium 3.2, BUN 18, creatinine 0.67. 11/18/2024 Patient evaluated today in the ICU and remains on the mechanical ventilator intu bated. Patient is awake alert following simple commands. Diffusely weak. She is currently off sedation. Patient is status post tracheostomy and PEG tube placement. Continues on enteral feedings. Patient will continue on Vital 1.2 with goal of 50 mls/hr. Unable to complete review of systems patient is currently intubated and sedated. Physical Examination GENERAL EXAM: Intubated, mechanically ventilated, thin 54-year-old female, on the ventilator, in no apparent distress. Tracheostomy HEAD: Normocephalic. Normal reaction of pupils, equal size. THROAT: No erythema or exudates. NECK: No masses, no JVD. CHEST: No chest wall deformity. LUNGS: Equal air entry with no crackles, wheeze, rhonchi or dullness. CVS: S1 and S2 normal with no audible murmur, regular rhythm. ABDOMEN: No hepatosplenomegaly, normal bowel sounds, no guarding or rigidity. Peg tube in place. SPINE: No scoliosis or deformity. Surgical dressing dry and intact. SKIN: No rashes CENTRAL NERVOUS SYSTEM: Sedated, tone is normal in all 4 extremities. EXTREMITIES: There is no peripheral edema. No clubbing, no cyanosis. Heather pheral pulses are intact. Assessment and Plan -Altered mental status from acute toxic and metabolic encephalopathy with episode of unresponsive, likely related to narcotics versus sepsis -Unable to rule out aspiration pneumonia -Pseudomonas pneumonia Healthcare acquired with septic shock POA -Acute hypoxic/hypercapnic respiratory failure; as indicated above; patient remains intubated with mechanical ventilation -Surgical site infection/wound dehiscence and Patient is status post surgery on 10/27/2024 for open treatment of a T8 fracture, irrigation and excisional debridement of thoracic spine wound measuring 10 x 7 x 4 cm, posterior lateral instrumented fusion of T7-T11 and cement augmentation of T8-T10 vertebral bodies; Orthopedic surgery consulted and felt the wound was noninfectious and healing well. -Leukocytosis/sepsis; continue with IV antibiotics as indicated above; patient has been pancultured -Hypernatremia -History of hypertension; propranolol 20 mg twice daily has been resumed; prazosin 2 mg twice daily on hold -Macroctyic anemia -Hyperlipidemia; currently not on any statin therapy -Hypothyroidism; levothyroxine 88 mcg daily -History of CAD -Chronic heart failure with preserved EF with no acute exacerbation -History of COPD/Asthma -PTSD/Bipolar/Borderline personality -Chronic nicotine use -Polysubstance use -Rectal prolapse -Hx seizure disorder -Gastroesophageal reflux DVT prophylaxis; SCDs/subcu heparin CODE STATUS; full code Plan -Patient was intubated and mechanically ventilated in ED. Possible extubation to trach collar today. -Urine drug screen positive for opiates, barbiturates, tricyclic antidepressants, benzodiazepines and marijuana concern for polysubstance use -Blood culture negative so far -Sputum culture revealing pseudomonas aeruginosa. x2 -All narcotics are currently being held -Critical care service on board -Patient continues on IV antibiotics in the form of IV zosyn. -Patient has been started on IV lasix 20 mg [id number] -Patient remains on IV Solu-Medrol -Residuals are improved and at about 100 mls and patient continues on enteral feedings at goal and tolerating -Antiseizure medications have been resumed; we do not carry briviact so patient was transitioned over to [facility]. -Monitor electrolytes and renal function -Patient is status post 1 unit of packed red blood cells with improvement in her hemoglobin -Status post PEG/Trach continue on enteral feedings. -Plan is for LTAC on discharge. The impression and plan of care has been dictated by Nichelle Loya Nurse Practitioner as directed. Dr. Jayson MD I have performed a history and physical examination and medical decision making of this patient, discussed the same with the dictator, and agree with the dictators assessment and plan as written, documented as a scribe. Based on total visit time, I have performed more than 50% of this visit. Objective - Vital Signs Vital signs: Vital Signs Temp 97 F L 11/18/24 12:00 Pulse 80 11/18/24 15:00 Resp 12 11/18/24 15:00 BP 131/78 11/18/24 15:00 Pulse Ox 97 11/18/24 15:00 FiO2 40 11/18/24 12:16 Intake & Output 11/17/24 11/18/24 11/18/24 18:59 06:59 18:59 Intake Total 1008.731 861 692 Output Total 1000 1875 1700 Balance 8.731 -1014 -1008 Weight 60.8 kg Intake: IV 376 261 247 0.9 @ KVO 90 0 20 Piperacillin-Tazobactam 3 150 125 100 .375 gm In Sodium Chloride 0.9% 100 ml @ 25 mls/hr IVPB Q8HR [facility] Rx# :[id number] Potassium Chloride 20 meq 100 In Water For Injection 1 100ml.bag @ 50 mls/hr IVPB Q2H [facility] Rx#: [id number] Potassium Chloride 20 meq 100 100 In Water For Injection 1 100ml.bag @ 50 mls/hr IVPB Q2H [facility] Rx#: [id number] pressure bag 36 36 27 Intake, IV Titration 97.731 Amount propofoL 1,000 mg In 97.731 Empty Bag 1 bag @ 15 MCG/ KG/MIN 4.291 mls/hr IV . [id number] VIVI Rx#:[id number] Tube Feeding 535 540 325 Other 60 120 Output: Urine 1000 1875 1700 Other: Voiding Method Indwelling Catheter Indwelling Catheter Indwelling Catheter ABP, PAP, CO, CI - Last Documented Arterial Blood Pressure 153/72 - Labs CBC & Chem 7: 11/18/24 04:00 11/18/24 04:00 Labs: Abnormal Lab Results - Last 24 Hours (Table) 11/17/24 11/18/24 11/18/24 Range/Units 17:43 00:58 04:00 WBC 20.3 H (3.8-10.6) k/uL RBC 3.14 L (3.80-5.40) m/uL Hgb 9.1 L (11.4-16.0) gm/dL Hct 30.9 L (34.0-46.0) % MCHC 29.5 L (31.0-37.0) g/dL RDW 17.6 H (11.5-15.5) % Plt Count 659 H (150-450) k/uL Neutrophils # 19.3 H (1.3-7.7) k/uL Lymphocytes # 0.5 L (1.0-4.8) k/uL ABG pCO2 (35-45) mmHg ABG HCO3 (21-25) mmol/L ABG Total CO2 (19-24) mmol/L ABG O2 Saturation (94-97) % Hemoglobin (11.4-16.0) gm/dL Potassium (3.5-5.1) mmol/L Carbon Dioxide (22-30) mmol/L BUN (7-17) mg/dL Glucose (74-99) mg/dL POC Glucose (mg/dL) 127 H 168 H (70-110) mg/dL 11/18/24 11/18/24 11/18/24 Range/Units 04:00 04:48 05:10 WBC (3.8-10.6) k/uL RBC (3.80-5.40) m/uL Hgb (11.4-16.0) gm/dL Hct (34.0-46.0) % MCHC (31.0-37.0) g/dL RDW (11.5-15.5) % Plt Count (150-450) k/uL Neutrophils # (1.3-7.7) k/uL Lymphocytes # (1.0-4.8) k/uL ABG pCO2 56 H (35-45) mmHg ABG HCO3 32 H (21-25) mmol/L ABG Total CO2 34 H (19-24) mmol/L ABG O2 Saturation 98.0 H (94-97) % Hemoglobin 8.8 L (11.4-16.0) gm/dL Potassium 3.2 L (3.5-5.1) mmol/L Carbon Dioxide 34 H (22-30) mmol/L BUN 22 H (7-17) mg/dL Glucose 148 H (74-99) mg/dL POC Glucose (mg/dL) 138 H (70-110) mg/dL 11/18/24 Range/Units 12:02 WBC (3.8-10.6) k/uL RBC (3.80-5.40) m/uL Hgb (11.4-16.0) gm/dL Hct (34.0-46.0) % MCHC (31.0-37.0) g/dL RDW (11.5-15.5) % Plt Count (150-450) k/uL Neutrophils # (1.3-7.7) k/uL Lymphocytes # (1.0-4.8) k/uL ABG pCO2 (35-45) mmHg ABG HCO3 (21-25) mmol/L ABG Total CO2 (19-24) mmol/L ABG O2 Saturation (94-97) % Hemoglobin (11.4-16.0) gm/dL Potassium (3.5-5.1) mmol/L Carbon Dioxide (22-30) mmol/L BUN (7-17) mg/dL Glucose (74-99) mg/dL POC Glucose (mg/dL) 118 H (70-110) mg/dL Assessment and Plan Time with Patient: Less than 30
[2024-11-18] MEDS: SCOPOLAMINE 1 MG/72 HR PATCH TRANSDERM SCH (17:20)
[2024-11-18 17:50] LABS: Glucose,Whole Blood 124 mg/dL (70-110)
[2024-11-18 23:56] LABS: Glucose,Whole Blood 146 mg/dL (70-110)
[2024-11-19 04:59] LABS: ABG Base Excess 8.6 mmol/L; ABG HCO3 35 mmol/L (21-25); ABG PCO2 58 mmHg (35-45); ABG PH 7.39 (7.35-7.45); ABG PO2 95 mmHg (83-108); ABG TCO2 37 mmol/L (19-24)
[2024-11-19 05:00] LABS: Allen Test Performed? No
[2024-11-19 05:13] LABS: Anisocytosis Slight; Basophils % (A) 0 %; Eosinophils % (A) 0 %; HCT 29.6 % (34.0-46.0); HGB 8.6 gm/dL (11.4-16.0); Hypochromasia Marked; Lymphocytes # (A) 0.5 k/uL (1.0-4.8); Lymphocytes % (A) 3 %; MCH 28.8 pg (25.0-35.0); MCHC 29.2 g/dL (31.0-37.0); MCV 98.9 fL (80.0-100.0); Macrocytosis Slight; Mean Platelet Volume 7.6; Monocytes # (A) 0.5 k/uL (0-1.0); Monocytes % (A) 3 %; Neutrophils # (A) 13.7 k/uL (1.3-7.7); Neutrophils % (A) 93 %; Platelet Count 627 k/uL (150-450); RBC 2.99 m/uL (3.80-5.40); RDW 17.9 % (11.5-15.5); WBC 14.8 k/uL (3.8-10.6)
[2024-11-19 05:35] LABS: African American GFR (CKD) >90 (>60 ml/min/1.73 sqM); Anion Gap 2 mmol/L; Blood Urea Nitrogen 25 mg/dL (7-17); Calcium 8.8 mg/dL (8.4-10.2); Carbon Dioxide 36 mmol/L (22-30); Chloride 103 mmol/L (98-107); Glucose 135 mg/dL (74-99); Non-African American GFR(CKD) >90 (>60 ml/min/1.73 sqM); Potassium 3.4 mmol/L (3.5-5.1); Sodium 141 mmol/L (137-145)
[2024-11-19] MEDS: POTASSIUM BICARBONATE/CIT AC 20 MEQ TABLET.EFF NG-TUBE SCH (05:50)
[2024-11-19 06:47] LABS: Glucose,Whole Blood 135 mg/dL (70-110)
--- NOTE | 2024-11-19 07:22 | XR ---
EXAMINATION TYPE: XR chest 1V portable DATE OF EXAM: 11/19/2024 4:39 AM COMPARISON: Multiple radiographs, with the most recent on 11/18/2024 TECHNIQUE: XR chest 1V portable Portable AP radiograph of the chest. CLINICAL INDICATION:Female, 54 years old with history of intubated; FINDINGS: Lungs/Pleura: Persistent small left pleural effusion with left basilar patchy opacity. Right lung is clear. Pulmonary vascularity: Unremarkable. Heart/mediastinum: Cardiomediastinal silhouette is unremarkable. Musculoskeletal: No acute osseous pathology. Extensive surgical changes of the visualized spine. Mark te left-sided rib fractures. Other findings: None Lines/Tubes: Stable tracheostomy cannula. Stable left subclavian approach central venous catheter distal tip at the low SVC. IMPRESSION: Persistent small left pleural effusion with associated basilar infiltrate and/or atelectasis. [facility], , 11/19/2024 7:20 AM
[2024-11-19] MEDS: FUROSEMIDE 20 MG TAB PO SCH (07:52)
[2024-11-19 12:22] LABS: Glucose,Whole Blood 149 mg/dL (70-110)
--- NOTE | 2024-11-19 13:06 | P.PN ---
Subjective Progress Note Date: 11/19/24 Progress Note Date: 11/13/24 This is a 54-year-old female patient with a known history of COPD, hypertension, hyperlipidemia, coronary disease, congestive heart failure, DVT, hypothyroidism, seizure disorder, multiple previous back surgeries. She had most recently undergone a C2-T7 posterior lateral fusion on 09/09/2024. She developed a significant infection and wound dehiscence and was back here in the hospital and had undergone irrigation and excisional debridement of a thoracic spine wound on 10/27/2024 and discharged to home on 11/02/2024. She was brought back here to the emergency room earlier this morning after being found obtunded and unresponsive by her . She was intubated here in the emergency department. Chest x- ray revealed bilateral upper interstitial opacities concerning for pneumonia versus fluid volume overload. Evidence of COPD. Endotracheal tube and nasogastric tubes in position. CT scan of the brain revealed no acute intrac ranial process. CT angiogram ruled out pulmonary embolism. There is bilateral upper lobe reticular opacities with right greater than left raising concerns for infection. Few foci of gas identified within the left supraclavicular region and left anterior chest wall possibly with venous vasculature. CT scan of the thoracic spine reveals extensive postsurgical changes. No gross evidence of complication. White count 9.0. Hemoglobin 10.6. Platelets 800,000. INR 0.9. Sodium 144. Potassium 4.0. Bicarb 27. BUN 16. Creatinine 0.96. Glucose 111. Lactic acid 3.0. AST 86. ALT 39. Troponin 0.044. Urinalysis clean. Drug urine screen is positive for opiates, barbiturates, antidepressants, benzodiazepines and marijuana. Initial arterial blood gases on 100% FiO2 revealed a PaO2 of 34, pCO2 89 and a pH of 7.07. Follow-up blood gases on the mechanical ventilator on 100% revealed a PaO2 greater than 420, pCO2 61 and a pH of 7.20. Her current vent settings are assist-control mode at a rate of 26, tidal volume 320 and FiO2 50% and a PEEP of 5. She is sedated on propofol at 50 mcg/kg/h. She has been initiated on vancomycin and cefepime. Received Narcan without improvement initially. She received 2 L of fluid resuscitation. 11/07/2024: Patient is a 54 year old female who was admmited to the ICU on 11/06/2024 with acute hypoxic respiratory failure. She arrived to ED unresponsive. Initially thought it was narcotic overdose. Did not improve with narcan. Ultimately intubated and mechanically ventillated on 11/06 . Patient tested positive for opiates, barbiturates, tricyclic's, benzodiazepines, and marijuana. Her underlying problems include COPD, hypertension, hyperlipidemia, coronary disease, congestive heart failure, DVT, hypothyroidism, seizure disorder, multiple previous back surgeries, T2 vertebral fracture with revision of C2-T7 posterior lateral fusion on 09/09/2024 patient developed surgical wound infection and dehiscence of wound. Patient was seen today 11/07/2024. Remains intubated and mechanically ventillated on assist controlled at a rate of 30, tidal volume 320, FiO2 50%, PEEP of 5. ABG: pH 7.17/pCO2 66 /pO2 70. Currently on propofol 50 mcg/kg/min and normal saline 0.9% at 125 cc/hr. No acute events overnight. Repeat CXR showing bilateral pleural and interstitial opacities. Labs WBC 38.9 Hgb 8.2, platelets 659, CO2 21, anion gap 11, BUN 16, creatinine 0.96 CRP 26.5. Patient currently on IV vancomycin dosed by pharmacy and cefepime 2 g IVPB every 12 hours. Blood cultures are pending. MRSA/MSSA screening pending. Currently not on any tube feeding. The patient is seen on 11/08/2024 in room 262. She remains on volume assist- control, rate 30, tidal volume 320, FiO2 40%, PEEP of 5. Most recent blood gases show pO2 of 110, pCO2 of 56, pH is 7.24. The patient is on propofol at 50 mcg/kg/min, saline at 125 cc an hour which we will decrease to 75cc an hour d/t suspected dillutional anemia, and vancomycin and cefepime. Tube feedings vital HP 40 cc/hr which is goal. Blood cultures showing no growth. Left brachial ART line was placed last night. All labs, x-rays, and medications are reviewed. CXR showing bilateral interstitial opacities. White count 18.7, hemoglobin 7.0, platelet count 505,000. BUN was 19, creatinine was 0.85. We will continue to follow make recommendations along the way. All labs, x-rays, and medications are reviewed. The patient has a history of underlying COPD, hypertension, hyperlipidemia, coronary disease, heart failure, DVT, hypothyroidism, seizure disorder, and multiple surgical procedures on her cervical and thoracic spine. Prognosis is guarded. The patient is seen on 11/09/2024 in room 262. She remains on volume assist- control, rate 30, tidal volume 320, FiO2 40%, PEEP of 5. Most recent blood gases show pO2 of 89, pCO2 of 56, pH is 7.24. The patient is on propofol at 20 mcg/kg/min, saline at 75cc. Remains on vancomycin and cefepime. Yesterday was placed IV solumedrol 40 mg q8hr, but will increase to 60 mg q6hr. Tube feedings vital HP 40 cc/hr which is goal. Blood cultures showing no growth. Sputum cultures showing pseudomonas. MRSA/MSSA nares negative. Yesterday she did not tolerate being off sedation. Only lasted for 20 minutes due to her peak pressui ng and being tachypnic. She was given dilaudid yesterday which caused her to be hypotensive so she was subsequently put on levofed but has since been off it since 530a. All labs, x-rays, and medications are reviewed. CXR still showing bilateral interstitial opacities likely from atypical pneumonia. White count 17.9, hemoglobin 8.1, platelet count 572,000. BUN was 23, creatinine was 0.67. AST 35, ALT 58. We will continue to follow make recommendations along the way. All labs, x-rays, and medications are reviewed. The patient has a history of underlying COPD, hypertension, hyperlipidemia, coronary disease, heart failure, DVT, hypothyroidism, seizure disorder, and multiple surgical procedures on her cervical and thoracic spine. Prognosis is guarded. The patient is seen on 11/10/2024 in room 262. She remains on volume assist- control, rate 30, tidal volume 320, FiO2 40%, PEEP of 5. Most recent blood gases show pO2 of 78, pCO2 of 52, pH is 7.29. The patient is on propofol at 50 mcg/kg/min, saline at 75cc/hr. Remains on vancomycin and cefepime. Remains on IV solumedrol 60 mg q6hr. Tube feedings vital HP 20 cc/hr with a goal of 40. Yesterday she did not tolerate being off sedation. She was following some commands, but became agitated and hypertensive. All labs, x-rays, and medications are reviewed. CXR still showing bilateral interstitial opacities likely from atypical pneumonia. White count 18.2, hemoglobin 8.6, platelet count 625,000. BUN was 26, creatinine was 0.73. We will continue to follow make recommendations along the way. All labs, x-rays, and medications are reviewed. The patient has a history of underlying COPD, hypertension, hyperlipidemia, coronary disease, heart failure, DVT, hypothyroidism, seizure disorder, and multiple surgical procedures on her cervical and thoracic spine. Will attempt to wean off sedation today. May end up being a candidate for trach and PEG. Prognosis is guarded. The patient is seen on 11/12/2024 in room 262. She remains on volume assist- control, rate 30, tidal volume 320, FiO2 40%, PEEP of 5. Most recent blood gases show pO2 of 89, pCO2 of 54, pH is 7.29. The patient had a large differ ence in her peak and plateau pressure, suggesting increased airways resistance. Airway resistance calculation was 17 cm H20/L/sec. Dynamic compliance 11.8 mL/cm of H20. Static compliance 27 mL/cm H20. The patient is on propofol at 50 mcg/kg/min, saline at 70cc/hr. Sputum cultures showing pseudomonas. Cefepime was switched to Zosyn. Remains on IV solumedrol 60 mg q6hr. Tube feedings vital HP 30 cc/hr with a goal of 45. Yesterday she did not tolerate being off sedation. She became agitated and hypertensive. She has been on ventillator since 11/06. All labs, x-rays, and medications are reviewed. CXR showing diffuse pulmonary vascular congestation. White count 14.6, hemoglobin 7.5, platelet count 598,000. BUN was 26, creatinine was 0.77. We will continue to follow make recommendations along the way. All labs, x-rays, and medications are reviewed. The patient has a history of underlying COPD, hypertension, hyperlipidemia, coronary disease, heart failure, DVT, hypothyroidism, seizure disorder, and multiple surgical procedures on her cervical and thoracic spine. Will attempt to wean off sedation today. May end up being a candidate for trach and PEG. Prognosis is guarded. The patient is seen today November 13, 2024 in follow-up in the intensive care unit. She remains intubated and on the mechanical ventilator and assist-control mode with a rate of 30, tidal volume 320, FiO2 40% and a PEEP of 5. Morning blood gases revealed a PaO2 of 76, pCO2 53 and a pH of 7.31. She is sedated on propofol at 50 mcg/kg/min. Receiving normal saline at 75 mL/h. Being nourished with vital HP at 40 mL/h with a goal of 45 mL/h. Chest x-ray shows no change in diffuse interstitial process possibly chronic in nature. No airspace consolidation, pleural effusion or pneumothorax. Sputum culture is positive for Pseudomonas aeruginosa. Count 14.2. Hemoglobin 6.8. Platelets 584. Sodium 146. Potassium 3.6. Bicarb 28. BUN 24. Creatinine 0.7. Glucose 124. She is continued on DuoNeb inhalations, Pulmicort and performance inhalations, Solu- Medrol. Antibiotics in the form of Zosyn. On 11/14/2024, patient is being seen and follow-up. Is a very complicated case of patient with COPD who underwent an extensive spine surgery. The patient initially had a C2 T7 posterior lateral fusion that was done on 09/09/2024. The patient had a T2 vertebral fracture. Subsequently, she was discharged home to be readmitted for wound dehiscence and suspected infection. The patient underwent irrigation and excisional debridement of the thoracic spine wound and T7 T11 fusion with cement augmentation of T8 T10 vertebral bodies. The patient was discharged home to be readmitted for altered mentation and diminished level of consciousness. This was suspected to be related to excessive narcotic use along with COPD. As such, the patient was intubated and placed on mechanical ventilation the patient has failed to wean since. She has failed sedation holiday. She becomes quite restless and asynchronous with mechanical ventilator. Furthermore, she was found to have fullness in her lungs and a chest x-ray from today showing no acute pulmonary filtrates. This could be a colonization versus a true infection as the patient's initial chest x-ray at time of admission was showing extensive opacities in the lungs consistent with pneumonia. Noted does infiltrate improved pressure to 1 in the right upper lobe. The patient is currently on IV Zosyn. This morning, the patient is on assist-control mode of mechanical ventilation at rate of 30, tidal volume of 320, FiO2 of 40% with a PEEP of 5. Blood gas showed pH of 7.31 with a pCO2 of 54 and pO2 of 90. She is sedated on propofol running at 50 mcg/kg/min. She is on normal saline at rate of 75 cc an hour. Fluid balance is +1.2 L over the past 24 hours. She is on vital HP running at 45 cc an hour. White cell count of 12.7, hemoglobin is at 6.4 and a platelet count of 594. Sodium levels at 147, potassium is at 3.3, BUN 26 with a creatinine of 0.69. She remains on DuoNeb updrafts. She remains on IV Solu-Medrol 60 mg every 6 hours. She remains on IV Zosyn. On 11/15/2024, the patient is being seen for a follow-up. The patient remains intubated on mechanical ventilator and the patient is awaiting a tracheostomy and a PEG tube insertion today. This morning, the patient is on a propofol running at 50 mcg/kg/min. The patient is also on D5 half-normal saline at rate of 75 cc an hour. The patient is hemodynamically stable. The patient's blood gases from today showed a pH of 7.28 with a pCO2 of 57 and pO2 of 80 and this was done on a assist-control mode at rate of 30, tidal volume of 320, FiO2 40% with a PEEP of 5. Chest x-ray shows no acute cardiopulmonary process. ET tube is in good location. NG tube is in good location. Extensive surgical changes seen involving the thoracic spine. The white cell count of 21, hemoglobin is at 8.7 and a platelet count of 661. Sodium is at 147, chloride 114, bicarb is 29, BUN 22 with a creatinine of 0.6. Blood sugar today is at 103. This plan is to proceed with a PEG and a tracheostomy tube insertion today. This will be done by general surgery. The patient remains on IV Zosyn. On 11/16/2024, the patient is being seen for a follow-up. The patient is status post tracheostomy tube insertion and the PEG tube was also inserted for enteral feeding and nutritional support. The procedure was successful without any c omplications. The patient this morning is on propofol which is running at 50 mcg/kg/min. She assist-control mode at rate of 24, tidal volume of 350, FiO2 of 40% with a PEEP of 5. The blood gas showed a pH of 7.3 with a pCO2 of 58 and pO2 76. The peak airway pressure is at 34 and the patient remains bronchospastic and wheezy. No significant respiratory secretions. Follow-up chest x-ray was done today and the patient has developed increased interstitial marking bilaterally. No focal airspace disease or opacity. Tracheostomy tube is in good location. Postsurgical changes were also seen in the lower lobes bilaterally. The patient's white cell count is 16.6, hemoglobin is at 8 with a platelet count of 687. Sodium is at 140, potassium is at 3.6, bicarb is at 29, BUN 17 with a creatinine of 0.6. Remains on bronchodilators. Remains on IV Solu-Medrol. Remains on IV Zosyn as an empiric antibiotic coverage. Rest of the medication remain unchanged and the patient will be started on enteral feeding for nutritional support. She is also on Lovenox 40 mg subcu for DVT prophylaxis. On 11/17/2024, the patient is being seen for a follow-up. This morning, the patient has been more responsive as the patient is being weaned off the propofol. Propofol is running at 30 mcg/kg/min. She is status post a Symptom insertion. She remains on assist-control mode of mechanical ventilation at rate of 24, tidal volume of 350, FiO2 40% with a PEEP of 5. Follow-up blood gas shows improvement in acid-base status. pH of 7.38 with a pCO2 of 22 and pO2 of 94. The peak airway pressure is at 30. Fluid balance is +60 disease over the past 24 hours. Chest x-ray shows no acute pulmonary infiltrates. Previous sputum samples showed Pseudomonas aeruginosa. Remains on DuoNeb updrafts. Remains on Perforomist and Pulmicort. Remains on IV Solu-Medrol 60 mg every 6 hours. Remains on IV Zosyn. Will start enteral feeding for nutritional support. Will continue weaning the sedation. The white cell count is 15.9, improving, hemoglobin stable at 8.6 and a platelet count is at 652. Sodium is at 139, potassium is at 3.2, BUN is 18 with a creatinine of 0.6. LFTs are normal. On 11/18/2024, the patient is being seen for a follow-up. This morning, the patient is on propofol. She is arousable and she is following simple commands. She is profoundly weak. She is on assist-control mode of mechanical ventilation at rate of 24, tidal volume of 350, FiO2 40% with a PEEP of 5. Blood gas showed pH of 7.37 with a pCO2 of 50 and pO2 of 92. The peak airway pressure is 27. Chest x-ray is unchanged. No pulmonary infiltrates. The patient is on IV Lasix. Fluid balance is -1 L over the past 24 hours. The patient remains on vital HP for enteral feeding in situ support and the patient has a PEG tube in place. No other significant events overnight. The patient has not required any further sedation while being off propofol. The white cell count of 20 with a hemoglobin 9.1 and platelet count of 659. Sodium is at 141, BUN is 22 with a creatinine of 0.6 and a serum bicarb is at 34. Glucose at 138. On 11/19/2024, the patient is being seen for a follow-up. This morning, the patient is back on the mechanical ventilator. Noted she less than a trach collar for a total of 10 hours yesterday and around 6 PM, the patient was placed back on the mechanical ventilator. This morning, she is on assist-control rate of 24, tidal volume of 350, FiO2 of 40% with a PEEP of 5. Blood gas showed a pH of 7.39 with a pCO2 of 58 and pO2 of 97. Calm and comfortable. Awake and alert and following commands and answering questions appropriately. Chest x-ray findings are essentially unchanged and stable. Some atelectatic changes in left lung base. Fluid balance is -1.7 L and the patient remains on vital HP at rate of 50 cc an hour. Blood work from today shows white cell count of 14.8, hemoglobin of 8.6 and a platelet count of 627. BUN is 25 OF 0.6 and a sodium of 141 and a potassium level is at 3.4. Objective - Vital Signs Vital signs: Vital Signs Temp 98.2 F 11/19/24 08:00 Pulse 82 11/19/24 09:00 Resp 13 11/19/24 09:00 BP 150/73 11/19/24 09:00 Pulse Ox 96 11/19/24 09:00 FiO2 40 11/19/24 08:00 Intake & Output 11/18/24 11/19/24 11/19/24 18:59 06:59 18:59 Intake Total 1064 783 319 Output Total 2100 1475 185 Balance -8926 -795 134 Weight 60.8 kg 55.9 kg Intake: IV 389 143 139 0.9 @ KVO 50 110 30 Piperacillin-Tazobactam 3 200 100 .375 gm In Sodium Chloride 0.9% 100 ml @ 25 mls/hr IVPB Q8HR [facility] Rx# :[id number] Potassium Chloride 20 meq 100 In Water For Injection 1 100ml.bag @ 50 mls/hr IVPB Q2H [facility] Rx#: [id number] pressure bag 39 33 9 Tube Feeding 525 550 150 Other 150 90 30 Output: Urine 2100 1475 185 Other: Voiding Method Indwelling Catheter Indwelling Catheter # Bowel Movements 1 ABP, PAP, CO, CI - Last Documented Arterial Blood Pressure 186/101 - Exam GENERAL EXAM: The patient is on the mechanical ventilator. The patient tracheostomy tube in place, and the patient is currently off propofol. Followi ng simple commands. HEAD: Normocephalic. EYES: Normal reaction of pupils, equal size. NOSE: Clear with pink turbinates. THROAT: Oral endotracheal and gastric tube secured in place. No erythema or exu dates. Tracheostomy tube in place. NECK: No masses, no JVD. CHEST: No chest wall deformity. LUNGS: Equal air entry. Diminished breath sounds bilateral lung with diffuse expiratory wheezes throughout the lung bills and prolongation of the exhalation phase of breathing. CVS: S1 and S2 normal with no audible murmur, regular rhythm. ABDOMEN: No hepatosplenomegaly, normal bowel sounds, no guarding or rigidity. The patient has a PEG tube in place and the exit site is dry clean and intact. SPINE: No scoliosis or deformity SKIN: No rashes CENTRAL NERVOUS SYSTEM: Sedated, tone is normal in all 4 extremities. EXTREMITIES: There is no peripheral edema. No clubbing, no cyanosis. Peripheral pulses are intact. Arousable and following simple commands. Profound generalized weakness in all 4 extremities. - Labs CBC & Chem 7: 11/19/24 04:50 11/19/24 04:50 Labs: Abnormal Lab Results - Last 24 Hours (Table) 11/18/24 11/18/24 11/18/24 Range/Units 12:02 17:47 23:55 WBC (3.8-10.6) k/uL RBC (3.80-5.40) m/uL Hgb (11.4-16.0) gm/dL Hct (34.0-46.0) % MCHC (31.0-37.0) g/dL RDW (11.5-15.5) % Plt Count (150-450) k/uL Neutrophils # (1.3-7.7) k/uL Lymphocytes # (1.0-4.8) k/uL ABG pCO2 (35-45) mmHg ABG HCO3 (21-25) mmol/L ABG Total CO2 (19-24) mmol/L ABG O2 Saturation (94-97) % Hemoglobin (11.4-16.0) gm/dL Potassium (3.5-5.1) mmol/L Carbon Dioxide (22-30) mmol/L BUN (7-17) mg/dL Glucose (74-99) mg/dL POC Glucose (mg/dL) 118 H 124 H 146 H (70-110) mg/dL 11/19/24 11/19/24 11/19/24 Range/Units 04:50 04:50 04:50 WBC 14.8 H (3.8-10.6) k/uL RBC 2.99 L (3.80-5.40) m/uL Hgb 8.6 L (11.4-16.0) gm/dL Hct 29.6 L (34.0-46.0) % MCHC 29.2 L (31.0-37.0) g/dL RDW 17.9 H (11.5-15.5) % Plt Count 627 H (150-450) k/uL Neutrophils # 13.7 H (1.3-7.7) k/uL Lymphocytes # 0.5 L (1.0-4.8) k/uL ABG pCO2 58 H (35-45) mmHg ABG HCO3 35 H (21-25) mmol/L ABG Total CO2 37 H (19-24) mmol/L ABG O2 Saturation 98.0 H (94-97) % Hemoglobin 8.7 L (11.4-16.0) gm/dL Potassium 3.4 L (3.5-5.1) mmol/L Carbon Dioxide 36 H (22-30) mmol/L BUN 25 H (7-17) mg/dL Glucose 135 H (74-99) mg/dL POC Glucose (mg/dL) (70-110) mg/dL 11/19/24 Range/Units 06:46 WBC (3.8-10.6) k/uL RBC (3.80-5.40) m/uL Hgb (11.4-16.0) gm/dL Hct (34.0-46.0) % MCHC (31.0-37.0) g/dL RDW (11.5-15.5) % Plt Count (150-450) k/uL Neutrophils # (1.3-7.7) k/uL Lymphocytes # (1.0-4.8) k/uL ABG pCO2 (35-45) mmHg ABG HCO3 (21-25) mmol/L ABG Total CO2 (19-24) mmol/L ABG O2 Saturation (94-97) % Hemoglobin (11.4-16.0) gm/dL Potassium (3.5-5.1) mmol/L Carbon Dioxide (22-30) mmol/L BUN (7-17) mg/dL Glucose (74-99) mg/dL POC Glucose (mg/dL) 135 H (70-110) mg/dL Assessment and Plan Plan: Advanced COPD, failure to wean with chronic hypoxic and hypercapnic respiratory failure with ongoing history of the exacerbation. She was on sample was positive for Pseudomonas aeruginosa. Due to failure to wean, the patient was given a tracheostomy tube on 11/15/2024. Chest x-ray is clear. The patient was able to tolerated trach collar for a total of 10 hours. The same will be done today and the patient will be taken off the mechanical ventilator and placed on a 40% trach collar. Acute on chronic hypoxic and hypercapnic respiratory failure due to above, improved acid-base status and the patient is undergoing daily trials with spontaneous breathing. Advanced COPD Altered mental status, obtunded requiring intubation and mechanical ventilatory support on November 06, 2024. T 8 fracture and the patient had spine surgery. The patient was discharged from the hospital following surgery on 10/27/2024 for open treatment of a T8 fracture, irrigation and excisional debridement of thoracic spine wound measuring 10 x 7 x 4 cm, posterior lateral instrumented fusion of T7-T11 and cement augmentation of T8-T10 vertebral bodies. T2 vertebral fracture with revision of C2-T7 posterior lateral fusion on 09/09/2024 Surgical site infection and wound dehiscence, wound and blood cultures revealed no growth Acute leukocytosis, improved Acute on chronic anemia with a hemoglobin is stable for now Rectal prolapse History of hypertension History of hyperlipidemia History of coronary artery disease History of heart failure with preserved ejection fraction based on echo cardiogram from July 2023 History of gastroesophageal reflux disease History of seizure disorder History of hypothyroidism History of anxiety/depression/PTSD Plan: Trach collar today at 40% FiO2 The patient is on no sedation Continue enteral feeding for nutritional support via PEG tube Discontinue IV Lasix Continue Zosyn Continue DuoNeb inhalations Continue Solu-Medrol Continue Pulmicort and Perforomist inhalations Lovenox for DVT prophylaxis Monitor electrolytes We will continue to follow make further recommendations based on her clinical status Critical care evaluation, 32 minutes Time with Patient: Greater than 30
--- NOTE | 2024-11-19 16:33 | P.PN ---
Subjective Progress Note Date: 11/19/24 Principal diagnosis: Reason for follow-up is pneumonia Patient is a 54-year-old female with a past medical history significant for COPD DVT hypertension hyperlipidemia who recently did have a cervical thoracic spine surgery revision for a nonhealing wound to the mid/upper back area patient cultures were negative has been brought to the hospital on the patient was found to be unresponsive requiring elevation and admission to the ICU Patient is status post tracheostomy and PEG tube placement completed on 11/15/2024. On today's evaluation that is 11/19/2024, patient did not have any fever today the patient is breathing comfortably currently on trach collar trying to communicate but not been good historian no vomiting or diarrhea has been reported not requiring any pressor support. Patient white count is down to 14.8 and creatinine 0.67 Objective - Vital Signs Vital signs: Vital Signs Temp 98.1 F 11/19/24 16:00 Pulse 71 11/19/24 16:00 Resp 15 11/19/24 16:00 BP 146/98 11/19/24 16:00 Pulse Ox 95 11/19/24 16:00 FiO2 40 11/19/24 09:54 Intake & Output 11/18/24 11/19/24 11/19/24 18:59 06:59 18:59 Intake Total 1064 783 820 Output Total 2100 1475 1560 Balance -1036 -692 -740 Weight 60.8 kg 55.9 kg Intake: IV 389 143 230 0.9 @ KVO 50 110 100 Piperacillin-Tazobactam 3 200 100 .375 gm In Sodium Chloride 0.9% 100 ml @ 25 mls/hr IVPB Q8HR [facility] Rx# :[id number] Potassium Chloride 20 meq 100 In Water For Injection 1 100ml.bag @ 50 mls/hr IVPB Q2H [facility] Rx#: [id number] pressure bag 39 33 30 Tube Feeding 525 550 500 Other 150 90 90 Output: Urine 2100 1475 1560 Other: Voiding Method Indwelling Catheter Indwelling Catheter Indwelling Catheter # Bowel Movements 1 ABP, PAP, CO, CI - Last Documented Arterial Blood Pressure 168/87 - Exam GENERAL DESCRIPTION: Middle-age female intubated through the trach RESPIRATORY SYSTEM: Unlabored breathing , decreased breath sounds at bases HEART: S1 S2 regular rate and rhythm , ABDOMEN: Soft , no tenderness EXTREMITIES: No edema feet - Labs CBC & Chem 7: 11/19/24 04:50 11/19/24 04:50 Labs: Abnormal Lab Results - Last 24 Hours (Table) 11/18/24 11/18/24 11/19/24 Range/Units 17:47 23:55 04:50 WBC 14.8 H (3.8-10.6) k/uL RBC 2.99 L (3.80-5.40) m/uL Hgb 8.6 L (11.4-16.0) gm/dL Hct 29.6 L (34.0-46.0) % MCHC 29.2 L (31.0-37.0) g/dL RDW 17.9 H (11.5-15.5) % Plt Count 627 H (150-450) k/uL Neutrophils # 13.7 H (1.3-7.7) k/uL Lymphocytes # 0.5 L (1.0-4.8) k/uL ABG pCO2 (35-45) mmHg ABG HCO3 (21-25) mmol/L ABG Total CO2 (19-24) mmol/L ABG O2 Saturation (94-97) % Hemoglobin (11.4-16.0) gm/dL Potassium (3.5-5.1) mmol/L Carbon Dioxide (22-30) mmol/L BUN (7-17) mg/dL Glucose (74-99) mg/dL POC Glucose (mg/dL) 124 H 146 H (70-110) mg/dL 11/19/24 11/19/24 11/19/24 Range/Units 04:50 04:50 06:46 WBC (3.8-10.6) k/uL RBC (3.80-5.40) m/uL Hgb (11.4-16.0) gm/dL Hct (34.0-46.0) % MCHC (31.0-37.0) g/dL RDW (11.5-15.5) % Plt Count (150-450) k/uL Neutrophils # (1.3-7.7) k/uL Lymphocytes # (1.0-4.8) k/uL ABG pCO2 58 H (35-45) mmHg ABG HCO3 35 H (21-25) mmol/L ABG Total CO2 37 H (19-24) mmol/L ABG O2 Saturation 98.0 H (94-97) % Hemoglobin 8.7 L (11.4-16.0) gm/dL Potassium 3.4 L (3.5-5.1) mmol/L Carbon Dioxide 36 H (22-30) mmol/L BUN 25 H (7-17) mg/dL Glucose 135 H (74-99) mg/dL POC Glucose (mg/dL) 135 H (70-110) mg/dL 11/19/24 Range/Units 12:19 WBC (3.8-10.6) k/uL RBC (3.80-5.40) m/uL Hgb (11.4-16.0) gm/dL Hct (34.0-46.0) % MCHC (31.0-37.0) g/dL RDW (11.5-15.5) % Plt Count (150-450) k/uL Neutrophils # (1.3-7.7) k/uL Lymphocytes # (1.0-4.8) k/uL ABG pCO2 (35-45) mmHg ABG HCO3 (21-25) mmol/L ABG Total CO2 (19-24) mmol/L ABG O2 Saturation (94-97) % Hemoglobin (11.4-16.0) gm/dL Potassium (3.5-5.1) mmol/L Carbon Dioxide (22-30) mmol/L BUN (7-17) mg/dL Glucose (74-99) mg/dL POC Glucose (mg/dL) 149 H (70-110) mg/dL Assessment and Plan (1) Pneumonia Current Visit: Yes Status: Acute Code(s): J18.9 - PNEUMONIA, UNSPECIFIED ORGANISM SNOMED Code(s): 395055617 (2) Abnormal CT scan, chest Current Visit: Yes Status: Acute Code(s): R93.89 - ABNORMAL FINDINGS ON DX IMAGING OF OTH BODY STRUCTURES SNOMED Code(s): 71334557759728965 (3) Leukocytosis Current Visit: No Status: Acute Code(s): D72.829 - ELEVATED WHITE BLOOD CELL COUNT, UNSPECIFIED SNOMED Code(s): 924767400 Plan: 1patient presented to hospital after the patient was found to be unresponsive at home concerning for possible drug overdose also noted to have significant finding on a chest x-ray and the CT concerning for possible pneumonia question of aspiration etiology in this patient has been around the hospital concerning for possible resistant gram-positive as well as gram-negative pathogen, the thoracic or cervical incision currently looks clean without cellulitis or any drainage 2-patient did have Pseudomonas aeruginosa in the sputum concerning for pneumonia possible aspiration, 3patient is afebrile and white count is trending down we will monitor closely continue with Zosyn and continue supportive care Dictation was produced using rPath dictation software. please excuse any grammatical, word or spelling errors. Time with Patient: Less than 30
--- NOTE | 2024-11-19 16:47 | P.PN ---
Subjective Progress Note Date: 11/19/24 Patient is evaluated today in follow up in the intensive care unit. Patient remains intubated on the mechanical ventilator with PEEP of 5 and FiO2 of 40%. Patient remains sedated. LFTs remain elevated, white blood cell count up to 38. Blood culture pending. Patient continues on IV Vancomycin and IV cefepime. ID following. Chest xray today reveals stable upper lobe interstitial opacities. Spinal surgery evaluated the patient felt the wound was noninfectious and healing well. Patients heart rate has been in the 120s was resumed on home medication of propanolol and has had improvement in the heart rate down to the 80s this afternoon. 11/08/2024 Patient is evaluated today in follow up in the ICU. Remains intubated and sedated on the mechanical ventilator with settings at PEEP of 5 and 40% FiO2. Chest xray today reveals interstitial opacities correlating for atypical pneumonia. There is extensive fixation hardware throughout the spine. White blood cell count of 18.7, hgb 7.0, MCV 105.6. Magnesium 1.2, potassium 3.3. Remains on IV cefepime, IV vancomycin. Has been started on systemic steroids. P atient with low grade temp of 99.8 today. Blood pressure low/normal. 11/09/2024 Patient is evaluated in the Intensive care unit, family at the bedside. Patient remains on the mechanical ventilator with PEEP of 5, FiO2 of 40%. Not ready for weaning today. Chest xray reveals interstitial opacities of the lungs correlate for atypical pneumonia. Sputum positive for pseudomonas. Patient remains on IV Cefepime. Also on IV solumedrol. Patient is sedated with propofol. Normal saline is running at 75 mls/hr. White blood cell count 17.9, hgb 8.1. Sodium 145, potassium 4.1, BUN 23, creatinine 0.67. Patient with low grade temp 99 axillary. 11/10/2024 Patient evaluated today in the intensive care unit. She remains sedated and intubated on mechanical ventilator settings of PEEP of 5 with FiO2 40%. She is awake and alert although her eyes are not tracking. She does remain on propofol. Chest x-ray today reveals interstitial opacities of the lungs are unchanged. Sputum culture shows Pseudomonas x 2. Her labs today reveal a white blood cell count of 18.2, hemoglobin 8.6, platelet count of 625, sodium of 145, potassium 3.8, BUN of 26, creatinine of 0.73, magnesium 2.1. Her blood glucose is controlled. She is having some residuals with the enteral feedings per the nurse they have been decreased to 20 mL/h and will monitor the residuals closely. Patient continues on IV cefepime IV Solu-Medrol. She is sedated with IV propofol she is on normal saline at 75 mL/h. Pulmonary is considering this patient for tracheostomy and PEG tube placement 11/11/2024 Patient evaluated in the ICU patient is unable to be weaned and continues to become agitated when weaning off the propofol. Residuals are better today and tube feeds up to 30 mls/hr and she is having bowel movements. Antibiotics have been transitioned to IV zosyn. ID following closely. Labs today reveal white blood cell count 19.2, hgb 8.3, sodium 144, potassium 4.0, BUN 27, creatinine 0.66. Chest xray today reveals stable findings. 11/14/2024 Patient is evaluated today in the intensive care unit. No family able to bring patients briviact up to the hospital so she has been started on oral keppra. Continues to be sedated and intubated on the mechanical ventilator. Chest xray today reveals no new acute pulmonary process. Hemoglobin 6.4 today and patient scheduled to receive 1 unit of PRBC. White blood cell count down to 12.7. Sodium 147, potassium 3.3., BUN 26, creatinine 0.69. General surgery was consulted for PEG/Trach. 11/15/2024 Patient is evaluated in follow-up remains in the ICU she is sedated and intubated; on the mechanical ventilator with an FiO2 of 40% PEEP of 5. Patient will be going for trach and PEG tube placement. Chest x-ray today reveals no acute new pulmonary process. White blood cell count is 21.9, hemoglobin 8.7, sodium of 147 potassium 3.8, BUN 22 creatinine 0.64 magnesium 1.9. 11/16/2024 Patient is evaluated in follow-up remains in the intensive care unit. Patient is currently sedated with propofol she is currently intubated on mechanical ventilator with a FiO2 of 40% and a PEEP of 5. Patient underwent tracheostomy and PEG tube placement yesterday. Chest x-ray reveals no new acute process. Improved bilateral interstitial edema noted. Patient to be started on oral Lasix today. She continues on IV Zosyn. Her labs reveal a white blood cell count of 16.6, hemoglobin 8.7, sodium of 140, potassium 3.6, creatinine 0.64. 11/17/2024 Patient evaluated in the ICU. Remains on the mechanical ventilator intubated. Awake alert and following some commands. Status post tracheostomy and PEG tube placement. Labs today 15.9, hgb 8.6, sodium 139, potassium 3.2, BUN 18, creatinine 0.67. 11/18/2024 Patient evaluated today in the ICU and remains on the mechanical ventilator intu bated. Patient is awake alert following simple commands. Diffusely weak. She is currently off sedation. Patient is status post tracheostomy and PEG tube placement. Continues on enteral feedings. Patient will continue on Vital 1.2 with goal of 50 mls/hr. 11/19/2024 Patient evaluated in the intensive care unit she is status post trach and PEG tube placement. She is off the propofol awake alert and oriented she states that she is scared in regards to the tracheostomy tube. Her chest x-ray today reveals persistent small left pleural effusion with associated basilar infiltrate and or atelectasis. Her labs reveal a white blood cell count of 14.8, hemoglobin 8.6, sodium of 141 potassium of 3.4, BUN of 25 creatinine of 0.67. Unable to complete review of systems patient is currently intubated and sedated. Physical Examination GENERAL EXAM: Intubated, mechanically ventilated, thin 54-year-old female, on the ventilator, in no apparent distress. Tracheostomy HEAD: Normocephalic. Normal reaction of pupils, equal size. THROAT: No erythema or exudates. NECK: No masses, no JVD. CHEST: No chest wall deformity. LUNGS: Equal air entry with no crackles, wheeze, rhonchi or dullness. CVS: S1 and S2 normal with no audible murmur, regular rhythm. ABDOMEN: No hepatosplenomegaly, normal bowel sounds, no guarding or rigidity. Peg tube in place. SPINE: No scoliosis or deformity. Surgical dressing dry and intact. SKIN: No rashes CENTRAL NERVOUS SYSTEM: Sedated, tone is normal in all 4 extremities. EXTREMITIES: There is no peripheral edema. No clubbing, no cyanosis. Peripheral pulses are intact. Assessment and Plan -Altered mental status from acute toxic and metabolic encephalopathy with ep isode of unresponsive, likely related to narcotics versus sepsis -Unable to rule out aspiration pneumonia -Pseudomonas pneumonia Healthcare acquired with septic shock POA -Acute hypoxic/hypercapnic respiratory failure; as indicated above; patient remains intubated with mechanical ventilation -Surgical site infection/wound dehiscence and Patient is status post surgery on 10/27/2024 for open treatment of a T8 fracture, irrigation and excisional debridement of thoracic spine wound measuring 10 x 7 x 4 cm, posterior lateral instrumented fusion of T7-T11 and cement augmentation of T8-T10 vertebral bodies; Orthopedic surgery consulted and felt the wound was noninfectious and healing well. -Leukocytosis/sepsis; continue with IV antibiotics as indicated above; patient has been pancultured -Hypernatremia -History of hypertension; propranolol 20 mg twice daily has been resumed; prazosin 2 mg twice daily on hold -Macroctyic anemia -Hyperlipidemia; currently not on any statin therapy -Hypothyroidism; levothyroxine 88 mcg daily -History of CAD -Chronic heart failure with preserved EF with no acute exacerbation -History of COPD/Asthma -PTSD/Bipolar/Borderline personality -Chronic nicotine use -Polysubstance use -Rectal prolapse -Hx seizure disorder -Gastroesophageal reflux DVT prophylaxis; SCDs/subcu heparin CODE STATUS; full code Plan -Patient was intubated and mechanically ventilated in ED. Possible extubation to trach collar today. -Urine drug screen positive for opiates, barbiturates, tricyclic antidepressants, benzodiazepines and marijuana concern for polysubstance use -Blood culture negative so far -Sputum culture revealing pseudomonas aeruginosa. x2 -All narcotics are currently being held -Critical care service on board -Patient continues on IV antibiotics in the form of IV zosyn. -Patient has been started on IV lasix 20 mg [id number] -Patient remains on IV Solu-Medrol -Residuals are improved and at about 100 mls and patient continues on enteral feedings at goal and tolerating -Antiseizure medications have been resumed; we do not carry briviact so patient was transitioned over to [facility]. -Monitor electrolytes and renal function -Patient is status post 1 unit of packed red blood cells with improvement in her hemoglobin -Status post PEG/Trach continue on enteral feedings. -Plan is for LTAC on discharge. The impression and plan of care has been dictated by Nichelle Loya, Nurse Practitioner as directed. Dr. Jayson MD I have performed a history and physical examination and medical decision making of this patient, discussed the same with the dictator, and agree with the dictators assessment and plan as written, documented as a scribe. Based on total visit time, I have performed more than 50% of this visit. Objective - Vital Signs Vital signs: Vital Signs Temp 98.1 F 11/19/24 16:00 Pulse 71 11/19/24 16:00 Resp 15 11/19/24 16:00 BP 146/98 11/19/24 16:00 Pulse Ox 95 11/19/24 16:00 FiO2 40 11/19/24 09:54 Intake & Output 11/18/24 11/19/24 11/19/24 18:59 06:59 18:59 Intake Total 1064 783 820 Output Total 2100 1475 1560 Balance -1036 -692 -740 Weight 60.8 kg 55.9 kg Intake: IV 389 143 230 0.9 @ KVO 50 110 100 Piperacillin-Tazobactam 3 200 100 .375 gm In Sodium Chloride 0.9% 100 ml @ 25 mls/hr IVPB Q8HR [facility] Rx# :[id number] Potassium Chloride 20 meq 100 In Water For Injection 1 100ml.bag @ 50 mls/hr IVPB Q2H [facility] Rx#: [id number] pressure bag 39 33 30 Tube Feeding 525 550 500 Other 150 90 90 Output: Urine 2100 1475 1560 Other: Voiding Method Indwelling Catheter Indwelling Catheter Indwelling Catheter # Bowel Movements 1 ABP, PAP, CO, CI - Last Documented Arterial Blood Pressure 168/87 - Labs CBC & Chem 7: 11/19/24 04:50 11/19/24 04:50 Labs: Abnormal Lab Results - Last 24 Hours (Table) 11/18/24 11/18/24 11/19/24 Range/Units 17:47 23:55 04:50 WBC 14.8 H (3.8-10.6) k/uL RBC 2.99 L (3.80-5.40) m/uL Hgb 8.6 L (11.4-16.0) gm/dL Hct 29.6 L (34.0-46.0) % MCHC 29.2 L (31.0-37.0) g/dL RDW 17.9 H (11.5-15.5) % Plt Count 627 H (150-450) k/uL Neutrophils # 13.7 H (1.3-7.7) k/uL Lymphocytes # 0.5 L (1.0-4.8) k/uL ABG pCO2 (35-45) mmHg ABG HCO3 (21-25) mmol/L ABG Total CO2 (19-24) mmol/L ABG O2 Saturation (94-97) % Hemoglobin (11.4-16.0) gm/dL Potassium (3.5-5.1) mmol/L Carbon Dioxide (22-30) mmol/L BUN (7-17) mg/dL Glucose (74-99) mg/dL POC Glucose (mg/dL) 124 H 146 H (70-110) mg/dL 11/19/24 11/19/24 11/19/24 Range/Units 04:50 04:50 06:46 WBC (3.8-10.6) k/uL RBC (3.80-5.40) m/uL Hgb (11.4-16.0) gm/dL Hct (34.0-46.0) % MCHC (31.0-37.0) g/dL RDW (11.5-15.5) % Plt Count (150-450) k/uL Neutrophils # (1.3-7.7) k/uL Lymphocytes # (1.0-4.8) k/uL ABG pCO2 58 H (35-45) mmHg ABG HCO3 35 H (21-25) mmol/L ABG Total CO2 37 H (19-24) mmol/L ABG O2 Saturation 98.0 H (94-97) % Hemoglobin 8.7 L (11.4-16.0) gm/dL Potassium 3.4 L (3.5-5.1) mmol/L Carbon Dioxide 36 H (22-30) mmol/L BUN 25 H (7-17) mg/dL Glucose 135 H (74-99) mg/dL POC Glucose (mg/dL) 135 H (70-110) mg/dL 11/19/24 Range/Units 12:19 WBC (3.8-10.6) k/uL RBC (3.80-5.40) m/uL Hgb (11.4-16.0) gm/dL Hct (34.0-46.0) % MCHC (31.0-37.0) g/dL RDW (11.5-15.5) % Plt Count (150-450) k/uL Neutrophils # (1.3-7.7) k/uL Lymphocytes # (1.0-4.8) k/uL ABG pCO2 (35-45) mmHg ABG HCO3 (21-25) mmol/L ABG Total CO2 (19-24) mmol/L ABG O2 Saturation (94-97) % Hemoglobin (11.4-16.0) gm/dL Potassium (3.5-5.1) mmol/L Carbon Dioxide (22-30) mmol/L BUN (7-17) mg/dL Glucose (74-99) mg/dL POC Glucose (mg/dL) 149 H (70-110) mg/dL Assessment and Plan Time with Patient: Less than 30
[2024-11-19 18:18] LABS: Glucose,Whole Blood 129 mg/dL (70-110)
[2024-11-20 00:07] LABS: Glucose,Whole Blood 113 mg/dL (70-110)
[2024-11-20 03:55] LABS: Anisocytosis Slight; Basophils % (A) 0 %; Eosinophils # (A) 0.4 k/uL (0-0.7); Eosinophils % (A) 3 %; HCT 28.9 % (34.0-46.0); HGB 8.4 gm/dL (11.4-16.0); Hypochromasia Marked; Lymphocytes # (A) 1.1 k/uL (1.0-4.8); Lymphocytes % (A) 8 %; MCH 28.7 pg (25.0-35.0); MCHC 29.1 g/dL (31.0-37.0); MCV 98.7 fL (80.0-100.0); Macrocytosis Slight; Mean Platelet Volume 8.5; Monocytes # (A) 0.6 k/uL (0-1.0); Monocytes % (A) 4 %; Neutrophils % (A) 85 %; Platelet Count 559 k/uL (150-450); RBC 2.93 m/uL (3.80-5.40); WBC 14.2 k/uL (3.8-10.6)
[2024-11-20 04:10] LABS: African American GFR (CKD) >90 (>60 ml/min/1.73 sqM); Anion Gap 1 mmol/L; Blood Urea Nitrogen 25 mg/dL (7-17); Calcium 8.8 mg/dL (8.4-10.2); Carbon Dioxide 38 mmol/L (22-30); Chloride 103 mmol/L (98-107); Glucose 119 mg/dL (74-99); Magnesium 1.9 mg/dL (1.6-2.3); Non-African American GFR(CKD) >90 (>60 ml/min/1.73 sqM); Potassium 3.1 mmol/L (3.5-5.1); Sodium 142 mmol/L (137-145)
[2024-11-20 04:16] LABS: ABG Base Excess 10.2 mmol/L; ABG HCO3 36 mmol/L (21-25); ABG Oxygen Saturation 97.6 % (94-97); ABG PCO2 53 mmHg (35-45); ABG PH 7.43 (7.35-7.45); ABG PO2 86 mmHg (83-108); ABG TCO2 37 mmol/L (19-24)
[2024-11-20 04:17] LABS: Allen Test Performed? No
[2024-11-20] MEDS: MAGNESIUM SULFATE-D5W PMX 1 GM in DEXTROSE/WATER 1 100ML.BAG IVPB ONE (04:27)
[2024-11-20] MEDS: POTASSIUM CHLORIDE 20 MEQ in WATER FOR INJECTION 1 100ML.BAG IVPB SCH (05:47)
[2024-11-20 05:51] LABS: Glucose,Whole Blood 115 mg/dL (70-110)
--- NOTE | 2024-11-20 07:50 | XR ---
EXAMINATION TYPE: XR chest 1V portable DATE OF EXAM: 11/20/2024 4:36 AM COMPARISON: Multiple radiographs, with the most recent on 11/19/2024 TECHNIQUE: XR chest 1V portable Portable AP radiograph of the chest. CLINICAL INDICATION:Female, 54 years old with history of pt trached; FINDINGS: Lungs/Pleura: Persistent small left pleural effusion with left basilar patchy opacity. Right lung is clear. Chronic interstitial prominence. Heart/mediastinum: Cardiomediastinal silhouette is unremarkable. Musculoskeletal: No acute osseous pathology. Extensive surgical changes of the visualized spine. Mark te left-sided rib fractures. Other findings: None Lines/Tubes: Stable tracheostomy cannula. Stable left subclavian approach central venous catheter distal tip at the low SVC. IMPRESSION: Persistent small left pleural effusion with associated basilar infiltrate and/or atelectasis. [facility], , 11/20/2024 7:47 AM
[2024-11-20] MEDS: predniSONE 20 MG TAB PO SCH (09:55)
[2024-11-20 11:55] LABS: Glucose,Whole Blood 122 mg/dL (70-110)
[2024-11-20] MEDS: POTASSIUM CHLORIDE 10 MEQ in WATER FOR INJECTION 1 100ML.BAG IVPB SCH (12:56)
--- NOTE | 2024-11-20 12:57 | P.PN ---
Subjective Progress Note Date: 11/20/24 Progress Note Date: 11/13/24 This is a 54-year-old female patient with a known history of COPD, hypertension, hyperlipidemia, coronary disease, congestive heart failure, DVT, hypothyroidism, seizure disorder, multiple previous back surgeries. She had most recently undergone a C2-T7 posterior lateral fusion on 09/09/2024. She developed a significant infection and wound dehiscence and was back here in the hospital and had undergone irrigation and excisional debridement of a thoracic spine wound on 10/27/2024 and discharged to home on 11/02/2024. She was brought back here to the emergency room earlier this morning after being found obtunded and unresponsive by her . She was intubated here in the emergency department. Chest x- ray revealed bilateral upper interstitial opacities concerning for pneumonia versus fluid volume overload. Evidence of COPD. Endotracheal tube and nasogastric tubes in position. CT scan of the brain revealed no acute intrac ranial process. CT angiogram ruled out pulmonary embolism. There is bilateral upper lobe reticular opacities with right greater than left raising concerns for infection. Few foci of gas identified within the left supraclavicular region and left anterior chest wall possibly with venous vasculature. CT scan of the thoracic spine reveals extensive postsurgical changes. No gross evidence of complication. White count 9.0. Hemoglobin 10.6. Platelets 800,000. INR 0.9. Sodium 144. Potassium 4.0. Bicarb 27. BUN 16. Creatinine 0.96. Glucose 111. Lactic acid 3.0. AST 86. ALT 39. Troponin 0.044. Urinalysis clean. Drug urine screen is positive for opiates, barbiturates, antidepressants, benzodiazepines and marijuana. Initial arterial blood gases on 100% FiO2 revealed a PaO2 of 34, pCO2 89 and a pH of 7.07. Follow-up blood gases on the mechanical ventilator on 100% revealed a PaO2 greater than 420, pCO2 61 and a pH of 7.20. Her current vent settings are assist-control mode at a rate of 26, tidal volume 320 and FiO2 50% and a PEEP of 5. She is sedated on propofol at 50 mcg/kg/h. She has been initiated on vancomycin and cefepime. Received Narcan without improvement initially. She received 2 L of fluid resuscitation. 11/07/2024: Patient is a 54 year old female who was admmited to the ICU on 11/06/2024 with acute hypoxic respiratory failure. She arrived to ED unresponsive. Initially thought it was narcotic overdose. Did not improve with narcan. Ultimately intubated and mechanically ventillated on 11/06 . Patient tested positive for opiates, barbiturates, tricyclic's, benzodiazepines, and marijuana. Her underlying problems include COPD, hypertension, hyperlipidemia, coronary disease, congestive heart failure, DVT, hypothyroidism, seizure disorder, multiple previous back surgeries, T2 vertebral fracture with revision of C2-T7 posterior lateral fusion on 09/09/2024 patient developed surgical wound infection and dehiscence of wound. Patient was seen today 11/07/2024. Remains intubated and mechanically ventillated on assist controlled at a rate of 30, tidal volume 320, FiO2 50%, PEEP of 5. ABG: pH 7.17/pCO2 66 /pO2 70. Currently on propofol 50 mcg/kg/min and normal saline 0.9% at 125 cc/hr. No acute events overnight. Repeat CXR showing bilateral pleural and interstitial opacities. Labs WBC 38.9 Hgb 8.2, platelets 659, CO2 21, anion gap 11, BUN 16, creatinine 0.96 CRP 26.5. Patient currently on IV vancomycin dosed by pharmacy and cefepime 2 g IVPB every 12 hours. Blood cultures are pending. MRSA/MSSA screening pending. Currently not on any tube feeding. The patient is seen on 11/08/2024 in room 262. She remains on volume assist- control, rate 30, tidal volume 320, FiO2 40%, PEEP of 5. Most recent blood gases show pO2 of 110, pCO2 of 56, pH is 7.24. The patient is on propofol at 50 mcg/kg/min, saline at 125 cc an hour which we will decrease to 75cc an hour d/t suspected dillutional anemia, and vancomycin and cefepime. Tube feedings vital HP 40 cc/hr which is goal. Blood cultures showing no growth. Left brachial ART line was placed last night. All labs, x-rays, and medications are reviewed. CXR showing bilateral interstitial opacities. White count 18.7, hemoglobin 7.0, platelet count 505,000. BUN was 19, creatinine was 0.85. We will continue to follow make recommendations along the way. All labs, x-rays, and medications are reviewed. The patient has a history of underlying COPD, hypertension, hyperlipidemia, coronary disease, heart failure, DVT, hypothyroidism, seizure disorder, and multiple surgical procedures on her cervical and thoracic spine. Prognosis is guarded. The patient is seen on 11/09/2024 in room 262. She remains on volume assist- control, rate 30, tidal volume 320, FiO2 40%, PEEP of 5. Most recent blood gases show pO2 of 89, pCO2 of 56, pH is 7.24. The patient is on propofol at 20 mcg/kg/min, saline at 75cc. Remains on vancomycin and cefepime. Yesterday was placed IV solumedrol 40 mg q8hr, but will increase to 60 mg q6hr. Tube feedings vital HP 40 cc/hr which is goal. Blood cultures showing no growth. Sputum cultures showing pseudomonas. MRSA/MSSA nares negative. Yesterday she did not tolerate being off sedation. Only lasted for 20 minutes due to her peak pressui ng and being tachypnic. She was given dilaudid yesterday which caused her to be hypotensive so she was subsequently put on levofed but has since been off it since 530a. All labs, x-rays, and medications are reviewed. CXR still showing bilateral interstitial opacities likely from atypical pneumonia. White count 17.9, hemoglobin 8.1, platelet count 572,000. BUN was 23, creatinine was 0.67. AST 35, ALT 58. We will continue to follow make recommendations along the way. All labs, x-rays, and medications are reviewed. The patient has a history of underlying COPD, hypertension, hyperlipidemia, coronary disease, heart failure, DVT, hypothyroidism, seizure disorder, and multiple surgical procedures on her cervical and thoracic spine. Prognosis is guarded. The patient is seen on 11/10/2024 in room 262. She remains on volume assist- control, rate 30, tidal volume 320, FiO2 40%, PEEP of 5. Most recent blood gases show pO2 of 78, pCO2 of 52, pH is 7.29. The patient is on propofol at 50 mcg/kg/min, saline at 75cc/hr. Remains on vancomycin and cefepime. Remains on IV solumedrol 60 mg q6hr. Tube feedings vital HP 20 cc/hr with a goal of 40. Yesterday she did not tolerate being off sedation. She was following some commands, but became agitated and hypertensive. All labs, x-rays, and medications are reviewed. CXR still showing bilateral interstitial opacities likely from atypical pneumonia. White count 18.2, hemoglobin 8.6, platelet count 625,000. BUN was 26, creatinine was 0.73. We will continue to follow make recommendations along the way. All labs, x-rays, and medications are reviewed. The patient has a history of underlying COPD, hypertension, hyperlipidemia, coronary disease, heart failure, DVT, hypothyroidism, seizure disorder, and multiple surgical procedures on her cervical and thoracic spine. Will attempt to wean off sedation today. May end up being a candidate for trach and PEG. Prognosis is guarded. The patient is seen on 11/12/2024 in room 262. She remains on volume assist- control, rate 30, tidal volume 320, FiO2 40%, PEEP of 5. Most recent blood gases show pO2 of 89, pCO2 of 54, pH is 7.29. The patient had a large differ ence in her peak and plateau pressure, suggesting increased airways resistance. Airway resistance calculation was 17 cm H20/L/sec. Dynamic compliance 11.8 mL/cm of H20. Static compliance 27 mL/cm H20. The patient is on propofol at 50 mcg/kg/min, saline at 70cc/hr. Sputum cultures showing pseudomonas. Cefepime was switched to Zosyn. Remains on IV solumedrol 60 mg q6hr. Tube feedings vital HP 30 cc/hr with a goal of 45. Yesterday she did not tolerate being off sedation. She became agitated and hypertensive. She has been on ventillator since 11/06. All labs, x-rays, and medications are reviewed. CXR showing diffuse pulmonary vascular congestation. White count 14.6, hemoglobin 7.5, platelet count 598,000. BUN was 26, creatinine was 0.77. We will continue to follow make recommendations along the way. All labs, x-rays, and medications are reviewed. The patient has a history of underlying COPD, hypertension, hyperlipidemia, coronary disease, heart failure, DVT, hypothyroidism, seizure disorder, and multiple surgical procedures on her cervical and thoracic spine. Will attempt to wean off sedation today. May end up being a candidate for trach and PEG. Prognosis is guarded. The patient is seen today November 13, 2024 in follow-up in the intensive care unit. She remains intubated and on the mechanical ventilator and assist-control mode with a rate of 30, tidal volume 320, FiO2 40% and a PEEP of 5. Morning blood gases revealed a PaO2 of 76, pCO2 53 and a pH of 7.31. She is sedated on propofol at 50 mcg/kg/min. Receiving normal saline at 75 mL/h. Being nourished with vital HP at 40 mL/h with a goal of 45 mL/h. Chest x-ray shows no change in diffuse interstitial process possibly chronic in nature. No airspace consolidation, pleural effusion or pneumothorax. Sputum culture is positive for Pseudomonas aeruginosa. Count 14.2. Hemoglobin 6.8. Platelets 584. Sodium 146. Potassium 3.6. Bicarb 28. BUN 24. Creatinine 0.7. Glucose 124. She is continued on DuoNeb inhalations, Pulmicort and performance inhalations, Solu- Medrol. Antibiotics in the form of Zosyn. On 11/14/2024, patient is being seen and follow-up. Is a very complicated case of patient with COPD who underwent an extensive spine surgery. The patient initially had a C2 T7 posterior lateral fusion that was done on 09/09/2024. The patient had a T2 vertebral fracture. Subsequently, she was discharged home to be readmitted for wound dehiscence and suspected infection. The patient underwent irrigation and excisional debridement of the thoracic spine wound and T7 T11 fusion with cement augmentation of T8 T10 vertebral bodies. The patient was discharged home to be readmitted for altered mentation and diminished level of consciousness. This was suspected to be related to excessive narcotic use along with COPD. As such, the patient was intubated and placed on mechanical ventilation the patient has failed to wean since. She has failed sedation holiday. She becomes quite restless and asynchronous with mechanical ventilator. Furthermore, she was found to have fullness in her lungs and a chest x-ray from today showing no acute pulmonary filtrates. This could be a colonization versus a true infection as the patient's initial chest x-ray at time of admission was showing extensive opacities in the lungs consistent with pneumonia. Noted does infiltrate improved pressure to 1 in the right upper lobe. The patient is currently on IV Zosyn. This morning, the patient is on assist-control mode of mechanical ventilation at rate of 30, tidal volume of 320, FiO2 of 40% with a PEEP of 5. Blood gas showed pH of 7.31 with a pCO2 of 54 and pO2 of 90. She is sedated on propofol running at 50 mcg/kg/min. She is on normal saline at rate of 75 cc an hour. Fluid balance is +1.2 L over the past 24 hours. She is on vital HP running at 45 cc an hour. White cell count of 12.7, hemoglobin is at 6.4 and a platelet count of 594. Sodium levels at 147, potassium is at 3.3, BUN 26 with a creatinine of 0.69. She remains on DuoNeb updrafts. She remains on IV Solu-Medrol 60 mg every 6 hours. She remains on IV Zosyn. On 11/15/2024, the patient is being seen for a follow-up. The patient remains intubated on mechanical ventilator and the patient is awaiting a tracheostomy and a PEG tube insertion today. This morning, the patient is on a propofol running at 50 mcg/kg/min. The patient is also on D5 half-normal saline at rate of 75 cc an hour. The patient is hemodynamically stable. The patient's blood gases from today showed a pH of 7.28 with a pCO2 of 57 and pO2 of 80 and this was done on a assist-control mode at rate of 30, tidal volume of 320, FiO2 40% with a PEEP of 5. Chest x-ray shows no acute cardiopulmonary process. ET tube is in good location. NG tube is in good location. Extensive surgical changes seen involving the thoracic spine. The white cell count of 21, hemoglobin is at 8.7 and a platelet count of 661. Sodium is at 147, chloride 114, bicarb is 29, BUN 22 with a creatinine of 0.6. Blood sugar today is at 103. This plan is to proceed with a PEG and a tracheostomy tube insertion today. This will be done by general surgery. The patient remains on IV Zosyn. On 11/16/2024, the patient is being seen for a follow-up. The patient is status post tracheostomy tube insertion and the PEG tube was also inserted for enteral feeding and nutritional support. The procedure was successful without any c omplications. The patient this morning is on propofol which is running at 50 mcg/kg/min. She assist-control mode at rate of 24, tidal volume of 350, FiO2 of 40% with a PEEP of 5. The blood gas showed a pH of 7.3 with a pCO2 of 58 and pO2 76. The peak airway pressure is at 34 and the patient remains bronchospastic and wheezy. No significant respiratory secretions. Follow-up chest x-ray was done today and the patient has developed increased interstitial marking bilaterally. No focal airspace disease or opacity. Tracheostomy tube is in good location. Postsurgical changes were also seen in the lower lobes bilaterally. The patient's white cell count is 16.6, hemoglobin is at 8 with a platelet count of 687. Sodium is at 140, potassium is at 3.6, bicarb is at 29, BUN 17 with a creatinine of 0.6. Remains on bronchodilators. Remains on IV Solu-Medrol. Remains on IV Zosyn as an empiric antibiotic coverage. Rest of the medication remain unchanged and the patient will be started on enteral feeding for nutritional support. She is also on Lovenox 40 mg subcu for DVT prophylaxis. On 11/17/2024, the patient is being seen for a follow-up. This morning, the patient has been more responsive as the patient is being weaned off the propofol. Propofol is running at 30 mcg/kg/min. She is status post a Symptom insertion. She remains on assist-control mode of mechanical ventilation at rate of 24, tidal volume of 350, FiO2 40% with a PEEP of 5. Follow-up blood gas shows improvement in acid-base status. pH of 7.38 with a pCO2 of 22 and pO2 of 94. The peak airway pressure is at 30. Fluid balance is +60 disease over the past 24 hours. Chest x-ray shows no acute pulmonary infiltrates. Previous sputum samples showed Pseudomonas aeruginosa. Remains on DuoNeb updrafts. Remains on Perforomist and Pulmicort. Remains on IV Solu-Medrol 60 mg every 6 hours. Remains on IV Zosyn. Will start enteral feeding for nutritional support. Will continue weaning the sedation. The white cell count is 15.9, improving, hemoglobin stable at 8.6 and a platelet count is at 652. Sodium is at 139, potassium is at 3.2, BUN is 18 with a creatinine of 0.6. LFTs are normal. On 11/18/2024, the patient is being seen for a follow-up. This morning, the patient is on propofol. She is arousable and she is following simple commands. She is profoundly weak. She is on assist-control mode of mechanical ventilation at rate of 24, tidal volume of 350, FiO2 40% with a PEEP of 5. Blood gas showed pH of 7.37 with a pCO2 of 50 and pO2 of 92. The peak airway pressure is 27. Chest x-ray is unchanged. No pulmonary infiltrates. The patient is on IV Lasix. Fluid balance is -1 L over the past 24 hours. The patient remains on vital HP for enteral feeding in situ support and the patient has a PEG tube in place. No other significant events overnight. The patient has not required any further sedation while being off propofol. The white cell count of 20 with a hemoglobin 9.1 and platelet count of 659. Sodium is at 141, BUN is 22 with a creatinine of 0.6 and a serum bicarb is at 34. Glucose at 138. On 11/19/2024, the patient is being seen for a follow-up. This morning, the patient is back on the mechanical ventilator. Noted she less than a trach collar for a total of 10 hours yesterday and around 6 PM, the patient was placed back on the mechanical ventilator. This morning, she is on assist-control rate of 24, tidal volume of 350, FiO2 of 40% with a PEEP of 5. Blood gas showed a pH of 7.39 with a pCO2 of 58 and pO2 of 97. Calm and comfortable. Awake and alert and following commands and answering questions appropriately. Chest x-ray findings are essentially unchanged and stable. Some atelectatic changes in left lung base. Fluid balance is -1.7 L and the patient remains on vital HP at rate of 50 cc an hour. Blood work from today shows white cell count of 14.8, hemoglobin of 8.6 and a platelet count of 627. BUN is 25 OF 0.6 and a sodium of 141 and a potassium level is at 3.4. On 11/20/2024, the patient is being seen for a follow-up. The patient is calm and comfortable on a trach collar at 35% and the patient has been on trach collar for the past 24 hours. No specific complaints. Respiratory secretions are scant and the patient will be taken off the scopolamine patch. No respiratory difficulties. No cough or sputum production. Continues to receive enteral feeding for nutritional support via a PEG tube. The white cell count is 14.2 with a hemoglobin 8.4 and a platelet count of 559. The blood gases from today showed a pH of 7.43 with a pCO2 of 53 and a pO2 of 86 and this was done 35% trach collar. Potassium level is replacement currently at 3.6. BUN 25 with a creatinine of 0.6. Sodium levels at 142. Objective - Vital Signs Vital signs: Vital Signs Temp 98.9 F 11/20/24 08:00 Pulse 82 11/20/24 09:00 Resp 18 11/20/24 09:00 BP 157/86 11/20/24 09:00 Pulse Ox 92 L 11/20/24 09:00 FiO2 35 11/20/24 08:00 Intake & Output 11/19/24 11/20/24 11/20/24 18:59 06:59 18:59 Intake Total 1046 1009 456 Output Total 1710 925 250 Balance -664 84 206 Weight 56.2 kg Intake: IV 356 269 326 0.9 @ KVO 120 130 20 Piperacillin-Tazobactam 3 200 100 100 .375 gm In Sodium Chloride 0.9% 100 ml @ 25 mls/hr IVPB Q8HR [facility] Rx# :[id number] Potassium Chloride 20 meq 200 In Water For Injection 1 100ml.bag @ 50 mls/hr IVPB Q2H [facility] Rx#: [id number] pressure bag 36 39 6 Tube Feeding 600 650 100 Other 90 90 30 Output: Urine 1710 925 250 Other: Voiding Method Indwelling Catheter Indwelling Catheter # Bowel Movements 1 ABP, PAP, CO, CI - Last Documented Arterial Blood Pressure 177/83 - Exam GENERAL EXAM: The patient is on the mechanical ventilator. The patient tracheostomy tube in place, and the patient is 35% trach collar HEAD: Normocephalic. EYES: Normal reaction of pupils, equal size. NOSE: Clear with pink turbinates. THROAT: Oral endotracheal and gastric tube secured in place. No erythema or exudates. Tracheostomy tube in place. NECK: No masses, no JVD. CHEST: No chest wall deformity. LUNGS: Equal air entry. Diminished breath sounds bilateral lung with diffuse expiratory wheezes throughout the lung bills and prolongation of the exhalation phase of breathing. CVS: S1 and S2 normal with no audible murmur, regular rhythm. ABDOMEN: No hepatosplenomegaly, normal bowel sounds, no guarding or rigidity. The patient has a PEG tube in place and the exit site is dry clean and intact. SPINE: No scoliosis or deformity SKIN: No rashes CENTRAL NERVOUS SYSTEM: Sedated, tone is normal in all 4 extremities. EXTREMITIES: There is no peripheral edema. No clubbing, no cyanosis. Peripheral pulses are intact. Generalized weakness in all 4 extremities - Labs CBC & Chem 7: 11/20/24 03:45 11/20/24 11:55 Labs: Abnormal Lab Results - Last 24 Hours (Table) 11/19/24 11/19/24 11/20/24 Range/Units 12:19 18:17 00:05 WBC (3.8-10.6) k/uL RBC (3.80-5.40) m/uL Hgb (11.4-16.0) gm/dL Hct (34.0-46.0) % MCHC (31.0-37.0) g/dL RDW (11.5-15.5) % Plt Count (150-450) k/uL Neutrophils # (1.3-7.7) k/uL ABG pCO2 (35-45) mmHg ABG HCO3 (21-25) mmol/L ABG Total CO2 (19-24) mmol/L ABG O2 Saturation (94-97) % Hemoglobin (11.4-16.0) gm/dL Potassium (3.5-5.1) mmol/L Carbon Dioxide (22-30) mmol/L BUN (7-17) mg/dL Glucose (74-99) mg/dL POC Glucose (mg/dL) 149 H 129 H 113 H (70-110) mg/dL 11/20/24 11/20/24 11/20/24 Range/Units 03:45 03:45 04:10 WBC 14.2 H (3.8-10.6) k/uL RBC 2.93 L (3.80-5.40) m/uL Hgb 8.4 L (11.4-16.0) gm/dL Hct 28.9 L (34.0-46.0) % MCHC 29.1 L (31.0-37.0) g/dL RDW 18.0 H (11.5-15.5) % Plt Count 559 H (150-450) k/uL Neutrophils # 12.0 H (1.3-7.7) k/uL ABG pCO2 53 H (35-45) mmHg ABG HCO3 36 H (21-25) mmol/L ABG Total CO2 37 H (19-24) mmol/L ABG O2 Saturation 97.6 H (94-97) % Hemoglobin 8.4 L (11.4-16.0) gm/dL Potassium 3.1 L (3.5-5.1) mmol/L Carbon Dioxide 38 H (22-30) mmol/L BUN 25 H (7-17) mg/dL Glucose 119 H (74-99) mg/dL POC Glucose (mg/dL) (70-110) mg/dL 11/20/24 Range/Units 05:49 WBC (3.8-10.6) k/uL RBC (3.80-5.40) m/uL Hgb (11.4-16.0) gm/dL Hct (34.0-46.0) % MCHC (31.0-37.0) g/dL RDW (11.5-15.5) % Plt Count (150-450) k/uL Neutrophils # (1.3-7.7) k/uL ABG pCO2 (35-45) mmHg ABG HCO3 (21-25) mmol/L ABG Total CO2 (19-24) mmol/L ABG O2 Saturation (94-97) % Hemoglobin (11.4-16.0) gm/dL Potassium (3.5-5.1) mmol/L Carbon Dioxide (22-30) mmol/L BUN (7-17) mg/dL Glucose (74-99) mg/dL POC Glucose (mg/dL) 115 H (70-110) mg/dL Assessment and Plan Plan: Advanced COPD, failure to wean with chronic hypoxic and hypercapnic respiratory failure with ongoing history of the exacerbation. She was on sample was positive for Pseudomonas aeruginosa. Due to failure to wean, the patient was given a tracheostomy tube on 11/15/2024. Chest x-ray is clear. The patient was able to tolerated trach collar for the past 24 hours and the patient will be kept on a trach collar at a FiO2 of 35%. Chest x-ray findings are stable. Acute on chronic hypoxic and hypercapnic respiratory failure due to above, impr maty acid-base status, please refer to the morning blood gases Advanced COPD Altered mental status, obtunded requiring intubation and mechanical ventilatory support on November 06, 2024. T 8 fracture and the patient had spine surgery. The patient was discharged from the hospital following surgery on 10/27/2024 for open treatment of a T8 fracture, irrigation and excisional debridement of thoracic spine wound measuring 10 x 7 x 4 cm, posterior lateral instrumented fusion of T7-T11 and cement augmentation of T8-T10 vertebral bodies. T2 vertebral fracture with revision of C2-T7 posterior lateral fusion on 09/09/2024 Surgical site infection and wound dehiscence, wound and blood cultures revealed no growth Acute leukocytosis, improved Acute on chronic anemia with a hemoglobin is stable for now Rectal prolapse History of hypertension History of hyperlipidemia History of coronary artery disease History of heart failure with preserved ejection fraction based on echocardiogram from July 2023 History of gastroesophageal reflux disease History of seizure disorder History of hypothyroidism History of anxiety/depression/PTSD Plan: Trach collar today at 35 % FiO2 The patient is on no sedation Continue enteral feeding for nutritional support via PEG tube Continue Zosyn Continue DuoNeb inhalations Discontinued IV Solu-Medrol start the patient on prednisone burst taper Continue Pulmicort and Perforomist inhalations Lovenox for DVT prophylaxis Monitor electrolytes We will continue to follow make further recommendations based on her clinical status swallow evaluation over the next 24 to 48 hours The patient will be downgraded Critical care evaluation, 32 minutes Time with Patient: Greater than 30
--- NOTE | 2024-11-20 14:16 | P.PN ---
Subjective Progress Note Date: 11/20/24 Patient is evaluated today in follow up in the intensive care unit. Patient remains intubated on the mechanical ventilator with PEEP of 5 and FiO2 of 40%. Patient remains sedated. LFTs remain elevated, white blood cell count up to 38. Blood culture pending. Patient continues on IV Vancomycin and IV cefepime. ID following. Chest xray today reveals stable upper lobe interstitial opacities. Spinal surgery evaluated the patient felt the wound was noninfectious and healing well. Patients heart rate has been in the 120s was resumed on home medication of propanolol and has had improvement in the heart rate down to the 80s this afternoon. 11/08/2024 Patient is evaluated today in follow up in the ICU. Remains intubated and sedated on the mechanical ventilator with settings at PEEP of 5 and 40% FiO2. Chest xray today reveals interstitial opacities correlating for atypical pneumonia. There is extensive fixation hardware throughout the spine. White blood cell count of 18.7, hgb 7.0, MCV 105.6. Magnesium 1.2, potassium 3.3. Remains on IV cefepime, IV vancomycin. Has been started on systemic steroids. P atient with low grade temp of 99.8 today. Blood pressure low/normal. 11/09/2024 Patient is evaluated in the Intensive care unit, family at the bedside. Patient remains on the mechanical ventilator with PEEP of 5, FiO2 of 40%. Not ready for weaning today. Chest xray reveals interstitial opacities of the lungs correlate for atypical pneumonia. Sputum positive for pseudomonas. Patient remains on IV Cefepime. Also on IV solumedrol. Patient is sedated with propofol. Normal saline is running at 75 mls/hr. White blood cell count 17.9, hgb 8.1. Sodium 145, potassium 4.1, BUN 23, creatinine 0.67. Patient with low grade temp 99 axillary. 11/10/2024 Patient evaluated today in the intensive care unit. She remains sedated and intubated on mechanical ventilator settings of PEEP of 5 with FiO2 40%. She is awake and alert although her eyes are not tracking. She does remain on propofol. Chest x-ray today reveals interstitial opacities of the lungs are unchanged. Sputum culture shows Pseudomonas x 2. Her labs today reveal a white blood cell count of 18.2, hemoglobin 8.6, platelet count of 625, sodium of 145, potassium 3.8, BUN of 26, creatinine of 0.73, magnesium 2.1. Her blood glucose is controlled. She is having some residuals with the enteral feedings per the nurse they have been decreased to 20 mL/h and will monitor the residuals closely. Patient continues on IV cefepime IV Solu-Medrol. She is sedated with IV propofol she is on normal saline at 75 mL/h. Pulmonary is considering this patient for tracheostomy and PEG tube placement 11/11/2024 Patient evaluated in the ICU patient is unable to be weaned and continues to become agitated when weaning off the propofol. Residuals are better today and tube feeds up to 30 mls/hr and she is having bowel movements. Antibiotics have been transitioned to IV zosyn. ID following closely. Labs today reveal white blood cell count 19.2, hgb 8.3, sodium 144, potassium 4.0, BUN 27, creatinine 0.66. Chest xray today reveals stable findings. 11/14/2024 Patient is evaluated today in the intensive care unit. No family able to bring patients briviact up to the hospital so she has been started on oral keppra. Continues to be sedated and intubated on the mechanical ventilator. Chest xray today reveals no new acute pulmonary process. Hemoglobin 6.4 today and patient scheduled to receive 1 unit of PRBC. White blood cell count down to 12.7. Sodium 147, potassium 3.3., BUN 26, creatinine 0.69. General surgery was consulted for PEG/Trach. 11/15/2024 Patient is evaluated in follow-up remains in the ICU she is sedated and intubated; on the mechanical ventilator with an FiO2 of 40% PEEP of 5. Patient will be going for trach and PEG tube placement. Chest x-ray today reveals no acute new pulmonary process. White blood cell count is 21.9, hemoglobin 8.7, sodium of 147 potassium 3.8, BUN 22 creatinine 0.64 magnesium 1.9. 11/16/2024 Patient is evaluated in follow-up remains in the intensive care unit. Patient is currently sedated with propofol she is currently intubated on mechanical ventilator with a FiO2 of 40% and a PEEP of 5. Patient underwent tracheostomy and PEG tube placement yesterday. Chest x-ray reveals no new acute process. Improved bilateral interstitial edema noted. Patient to be started on oral Lasix today. She continues on IV Zosyn. Her labs reveal a white blood cell count of 16.6, hemoglobin 8.7, sodium of 140, potassium 3.6, creatinine 0.64. 11/17/2024 Patient evaluated in the ICU. Remains on the mechanical ventilator intubated. Awake alert and following some commands. Status post tracheostomy and PEG tube placement. Labs today 15.9, hgb 8.6, sodium 139, potassium 3.2, BUN 18, creatinine 0.67. 11/18/2024 Patient evaluated today in the ICU and remains on the mechanical ventilator intu bated. Patient is awake alert following simple commands. Diffusely weak. She is currently off sedation. Patient is status post tracheostomy and PEG tube placement. Continues on enteral feedings. Patient will continue on Vital 1.2 with goal of 50 mls/hr. 11/19/2024 Patient evaluated in the intensive care unit she is status post trach and PEG tube placement. She is off the propofol awake alert and oriented she states that she is scared in regards to the tracheostomy tube. Her chest x-ray today reveals persistent small left pleural effusion with associated basilar infiltrate and or atelectasis. Her labs reveal a white blood cell count of 14.8, hemoglobin 8.6, sodium of 141 potassium of 3.4, BUN of 25 creatinine of 0.67. 11/20/2024 Patient is evaluated in follow-up in intensive care unit. Patient is status post tracheostomy and PEG tube placement. Patient has been on the trach collar overnight and doing well. She is off the mechanical ventilator at this time. Patient is awake alert oriented following commands. Patient will be moved out of the intensive care unit when a bed is available. Her chest x-ray today reveals persistent small pleural effusion with associated bibasilar infiltrate and/or atelectasis. labs today reveal a white blood cell count of 14.2, hemoglobin 8.4, sodium of 142, potassium 3.6, BUN of 25 creatinine 0.61 magnesium level of 1.9. Unable to complete review of systems patient is currently intubated and sedated. Physical Examination GENERAL EXAM: Intubated, mechanically ventilated, thin 54-year-old female, on the ventilator, in no apparent distress. Tracheostomy HEAD: Normocephalic. Normal reaction of pupils, equal size. THROAT: No erythema or exudates. NECK: No masses, no JVD. CHEST: No chest wall deformity. LUNGS: Equal air entry with no crackles, wheeze, rhonchi or dullness. CVS: S1 and S2 normal with no audible murmur, regular rhythm. ABDOMEN: No hepatosplenomegaly, normal bowel sounds, no guarding or rigidity. Peg tube in place. SPINE: No scoliosis or deformity. Surgical dressing dry and intact. SKIN: No rashes CENTRAL NERVOUS SYSTEM: Sedated, tone is normal in all 4 extremities. EXTREMITIES: There is no peripheral edema. No clubbing, no cyanosis. Peripheral pulses are intact. Assessment and Plan -Altered mental status from acute toxic and metabolic encephalopathy with episode of unresponsive, likely related to narcotics versus sepsis -Unable to rule out aspiration pneumonia -Pseudomonas pneumonia Healthcare acquired with septic shock POA -Acute hypoxic/hypercapnic respiratory failure; as indicated above; patient re presley intubated with mechanical ventilation -Surgical site infection/wound dehiscence and Patient is status post surgery on 10/27/2024 for open treatment of a T8 fracture, irrigation and excisional johana ridement of thoracic spine wound measuring 10 x 7 x 4 cm, posterior lateral instrumented fusion of T7-T11 and cement augmentation of T8-T10 vertebral bodies; Orthopedic surgery consulted and felt the wound was noninfectious and healing well. -Leukocytosis/sepsis; continue with IV antibiotics as indicated above; patient has been pancultured -Hypernatremia -History of hypertension; propranolol 20 mg twice daily has been resumed; prazosin 2 mg twice daily on hold -Macroctyic anemia -Hyperlipidemia; currently not on any statin therapy -Hypothyroidism; levothyroxine 88 mcg daily -History of CAD -Chronic heart failure with preserved EF with no acute exacerbation -History of COPD/Asthma -PTSD/Bipolar/Borderline personality -Chronic nicotine use -Polysubstance use -Rectal prolapse -Hx seizure disorder -Gastroesophageal reflux DVT prophylaxis; SCDs/subcu heparin CODE STATUS; full code Plan -Patient was intubated and mechanically ventilated in ED. patient has been extubated and is currently on a trach collar and doing well -Urine drug screen positive for opiates, barbiturates, tricyclic antidepressants, benzodiazepines and marijuana concern for polysubstance use -Blood culture negative so far -Sputum culture revealing pseudomonas aeruginosa. x2 -All narcotics are currently being held -Critical care service on board -Patient continues on IV antibiotics in the form of IV zosyn. Lasix has been discontinued Patient has been transition to oral prednisone -Residuals are improved and at about 100 mls and patient continues on enteral feedings at goal and tolerating -Antiseizure medications have been resumed; we do not carry briviact so patient was transitioned over to keppra. -Monitor electrolytes and renal function -Patient is status post 1 unit of packed red blood cells with improvement in her hemoglobin -Status post PEG/Trach continue on enteral feedings. -Plan is for LTAC on discharge. Early next week The impression and plan of care has been dictated by Nichelle Loya Nurse Practitioner as directed. Dr. Jayson MD I have performed a history and physical examination and medical decision making of this patient, discussed the same with the dictator, and agree with the dictators assessment and plan as written, documented as a scribe. Based on total visit time, I have performed more than 50% of this visit. Objective - Vital Signs Vital signs: Vital Signs Temp 97.5 F L 11/20/24 04:00 Pulse 96 11/20/24 07:00 Resp 10 L 11/20/24 07:00 BP 150/87 11/20/24 07:00 Pulse Ox 93 L 11/20/24 07:00 FiO2 35 11/20/24 04:09 Intake & Output 11/19/24 11/20/24 11/20/24 18:59 06:59 18:59 Intake Total 1046 1009 Output Total 1710 925 Balance -664 84 Weight 56.2 kg Intake: IV 356 269 0.9 @ KVO 120 130 Piperacillin-Tazobactam 3 200 100 .375 gm In Sodium Chloride 0.9% 100 ml @ 25 mls/hr IVPB Q8HR [facility] Rx# :[id number] pressure bag 36 39 Tube Feeding 600 650 Other 90 90 Output: Urine 1710 925 Other: Voiding Method Indwelling Catheter Indwelling Catheter ABP, PAP, CO, CI - Last Documented Arterial Blood Pressure 153/71 - Labs CBC & Chem 7: 11/20/24 03:45 11/20/24 11:55 Labs: Abnormal Lab Results - Last 24 Hours (Table) 11/19/24 11/19/24 11/20/24 Range/Units 12:19 18:17 00:05 WBC (3.8-10.6) k/uL RBC (3.80-5.40) m/uL Hgb (11.4-16.0) gm/dL Hct (34.0-46.0) % MCHC (31.0-37.0) g/dL RDW (11.5-15.5) % Plt Count (150-450) k/uL Neutrophils # (1.3-7.7) k/uL ABG pCO2 (35-45) mmHg ABG HCO3 (21-25) mmol/L ABG Total CO2 (19-24) mmol/L ABG O2 Saturation (94-97) % Hemoglobin (11.4-16.0) gm/dL Potassium (3.5-5.1) mmol/L Carbon Dioxide (22-30) mmol/L BUN (7-17) mg/dL Glucose (74-99) mg/dL POC Glucose (mg/dL) 149 H 129 H 113 H (70-110) mg/dL 11/20/24 11/20/24 11/20/24 Range/Units 03:45 03:45 04:10 WBC 14.2 H (3.8-10.6) k/uL RBC 2.93 L (3.80-5.40) m/uL Hgb 8.4 L (11.4-16.0) gm/dL Hct 28.9 L (34.0-46.0) % MCHC 29.1 L (31.0-37.0) g/dL RDW 18.0 H (11.5-15.5) % Plt Count 559 H (150-450) k/uL Neutrophils # 12.0 H (1.3-7.7) k/uL ABG pCO2 53 H (35-45) mmHg ABG HCO3 36 H (21-25) mmol/L ABG Total CO2 37 H (19-24) mmol/L ABG O2 Saturation 97.6 H (94-97) % Hemoglobin 8.4 L (11.4-16.0) gm/dL Potassium 3.1 L (3.5-5.1) mmol/L Carbon Dioxide 38 H (22-30) mmol/L BUN 25 H (7-17) mg/dL Glucose 119 H (74-99) mg/dL POC Glucose (mg/dL) (70-110) mg/dL 11/20/24 Range/Units 05:49 WBC (3.8-10.6) k/uL RBC (3.80-5.40) m/uL Hgb (11.4-16.0) gm/dL Hct (34.0-46.0) % MCHC (31.0-37.0) g/dL RDW (11.5-15.5) % Plt Count (150-450) k/uL Neutrophils # (1.3-7.7) k/uL ABG pCO2 (35-45) mmHg ABG HCO3 (21-25) mmol/L ABG Total CO2 (19-24) mmol/L ABG O2 Saturation (94-97) % Hemoglobin (11.4-16.0) gm/dL Potassium (3.5-5.1) mmol/L Carbon Dioxide (22-30) mmol/L BUN (7-17) mg/dL Glucose (74-99) mg/dL POC Glucose (mg/dL) 115 H (70-110) mg/dL Assessment and Plan Time with Patient: Less than 30
[2024-11-21 01:07] LABS: Glucose,Whole Blood 115 mg/dL (70-110)
[2024-11-21 05:00] LABS: Anisocytosis Slight; Basophils % (A) 0 %; Eosinophils # (A) 0.5 k/uL (0-0.7); Eosinophils % (A) 3 %; HCT 28.9 % (34.0-46.0); HGB 8.4 gm/dL (11.4-16.0); Hypochromasia Marked; Lymphocytes # (A) 0.9 k/uL (1.0-4.8); Lymphocytes % (A) 7 %; MCHC 29.1 g/dL (31.0-37.0); MCV 99.6 fL (80.0-100.0); Macrocytosis Slight; Mean Platelet Volume 8.3; Monocytes # (A) 0.6 k/uL (0-1.0); Monocytes % (A) 4 %; Neutrophils # (A) 11.3 k/uL (1.3-7.7); Neutrophils % (A) 84 %; Platelet Count 553 k/uL (150-450); RDW 18.2 % (11.5-15.5); WBC 13.4 k/uL (3.8-10.6)
[2024-11-21 05:32] LABS: African American GFR (CKD) >90 (>60 ml/min/1.73 sqM); Anion Gap 1 mmol/L; Blood Urea Nitrogen 22 mg/dL (7-17); Calcium 8.6 mg/dL (8.4-10.2); Carbon Dioxide 33 mmol/L (22-30); Chloride 106 mmol/L (98-107); Glucose 117 mg/dL (74-99); Non-African American GFR(CKD) >90 (>60 ml/min/1.73 sqM); Potassium 4.1 mmol/L (3.5-5.1); Sodium 140 mmol/L (137-145)
[2024-11-21 06:46] LABS: Glucose,Whole Blood 123 mg/dL (70-110)
[2024-11-21 12:14] LABS: Glucose,Whole Blood 130 mg/dL (70-110)
--- NOTE | 2024-11-21 14:03 | P.PN ---
Subjective Progress Note Date: 11/21/24 Principal diagnosis: Advanced COPD, failure to wean with chronic hypoxic and hypercapnic respiratory failure with ongoing history of the exacerbation., On 11/15/2024, the patient is being seen for a follow-up. The patient remains intubated on mechanical ventilator and the patient is awaiting a tracheostomy and a PEG tube insertion today. This morning, the patient is on a propofol running at 50 mcg/kg/min. The patient is also on D5 half-normal saline at rate of 75 cc an hour. The patient is hemodynamically stable. The patient's blood gases from today showed a pH of 7.28 with a pCO2 of 57 and pO2 of 80 and this was done on a assist-control mode at rate of 30, tidal volume of 320, FiO2 40% with a PEEP of 5. Chest x-ray shows no acute cardiopulmonary process. ET tube is in good location. NG tube is in good location. Extensive surgical changes seen involving the thoracic spine. The white cell count of 21, hemoglobin is at 8.7 and a platelet count of 661. Sodium is at 147, chloride 114, bicarb is 29, BUN 22 with a creatinine of 0.6. Blood sugar today is at 103. This plan is to proceed with a PEG and a tracheostomy tube insertion today. This will be done by general surgery. The patient remains on IV Zosyn. On 11/16/2024, the patient is being seen for a follow-up. The patient is status post tracheostomy tube insertion and the PEG tube was also inserted for enteral feeding and nutritional support. The procedure was successful without any complications. The patient this morning is on propofol which is running at 50 mcg/kg/min. She assist-control mode at rate of 24, tidal volume of 350, FiO2 of 40% with a PEEP of 5. The blood gas showed a pH of 7.3 with a pCO2 of 58 and pO2 76. The peak airway pressure is at 34 and the patient remains bronc hospastic and wheezy. No significant respiratory secretions. Follow-up chest x-ray was done today and the patient has developed increased interstitial marking bilaterally. No focal airspace disease or opacity. Tracheostomy tube is in good location. Postsurgical changes were also seen in the lower lobes bilaterally. The patient's white cell count is 16.6, hemoglobin is at 8 with a platelet count of 687. Sodium is at 140, potassium is at 3.6, bicarb is at 29, BUN 17 with a creatinine of 0.6. Remains on bronchodilators. Remains on IV Solu-Medrol. Remains on IV Zosyn as an empiric antibiotic coverage. Rest of the medication remain unchanged and the patient will be started on enteral f eeding for nutritional support. She is also on Lovenox 40 mg subcu for DVT prophylaxis. On 11/17/2024, the patient is being seen for a follow-up. This morning, the patient has been more responsive as the patient is being weaned off the propofol. Propofol is running at 30 mcg/kg/min. She is status post a Symptom insertion. She remains on assist-control mode of mechanical ventilation at rate of 24, tidal volume of 350, FiO2 40% with a PEEP of 5. Follow-up blood gas shows improvement in acid-base status. pH of 7.38 with a pCO2 of 22 and pO2 of 94. The peak airway pressure is at 30. Fluid balance is +60 disease over the past 24 hours. Chest x-ray shows no acute pulmonary infiltrates. Previous sputum samples showed Pseudomonas aeruginosa. Remains on DuoNeb updrafts. Remains on Perforomist and Pulmicort. Remains on IV Solu-Medrol 60 mg every 6 hours. Remains on IV Zosyn. Will start enteral feeding for nutritional support. Will continue weaning the sedation. The white cell count is 15.9, improving, hemoglobin stable at 8.6 and a platelet count is at 652. Sodium is at 139, potassium is at 3.2, BUN is 18 with a creatinine of 0.6. LFTs are normal. On 11/18/2024, the patient is being seen for a follow-up. This morning, the patient is on propofol. She is arousable and she is following simple commands. She is profoundly weak. She is on assist-control mode of mechanical ventilation at rate of 24, tidal volume of 350, FiO2 40% with a PEEP of 5. Blood gas showed pH of 7.37 with a pCO2 of 50 and pO2 of 92. The peak airway pressure is 27. Chest x-ray is unchanged. No pulmonary infiltrates. The patient is on IV Lasix. Fluid balance is -1 L over the past 24 hours. The patient remains on vital HP for enteral feeding in situ support and the patient has a PEG tube in place. No other significant events overnight. The patient has not required any further sedation while being off propofol. The white cell count of 20 with a hemoglobin 9.1 and platelet count of 659. Sodium is at 141, BUN is 22 with a creatinine of 0.6 and a serum bicarb is at 34. Glucose at 138. On 11/19/2024, the patient is being seen for a follow-up. This morning, the patient is back on the mechanical ventilator. Noted she less than a trach collar for a total of 10 hours yesterday and around 6 PM, the patient was placed back on the mechanical ventilator. This morning, she is on assist-control rate of 24, tidal volume of 350, FiO2 of 40% with a PEEP of 5. Blood gas showed a pH of 7.39 with a pCO2 of 58 and pO2 of 97. Calm and comfortable. Awake and alert and following commands and answering questions appropriately. Chest x-ray findings are essentially unchanged and stable. Some atelectatic changes in left lung base. Fluid balance is -1.7 L and the patient remains on vital HP at rate of 50 cc an hour. Blood work from today shows white cell count of 14.8, hemoglobin of 8.6 and a platelet count of 627. BUN is 25 OF 0.6 and a sodium of 141 and a potassium level is at 3.4. Patient was seen today on 11/21/2024, patient remains in the ICU, she has a trach collar in place, she is on 28% FiO2, she has a 6 Shiley disposable inner cannula, she is on enteral feeding via PEG tube receiving vital HP at 50 cc/h. Patient had her tracheostomy placed on 11/15. Doing fairly well, patient is not requiring significant amount of suctioning. Does not seem to be in distress, hence we will start addressing placement on this patient. WBC count is 13.4 hemoglobin 8.4 electrolytes are normal renal profile is normal. Previous sputum cultures from 11/08 have been positive for Pseudomonas aeruginosa, and that has been addressed and treated. Chest x-ray showed small left pleural effusion and basilar infiltrate and/or atelectasis. Objective - Vital Signs Vital signs: Vital Signs Temp 96.9 F L 11/21/24 00:00 Pulse 93 11/21/24 13:04 Resp 18 11/21/24 12:00 BP 156/62 11/21/24 12:00 Pulse Ox 95 03/17/25 12:00 FiO2 28 11/21/24 09:31 Intake & Output 11/20/24 11/21/24 11/21/24 18:59 06:59 18:59 Intake Total 1183 1454 Output Total 1150 900 Balance 33 554 Weight 56.5 kg Intake: IV 543 434 0.9 @ KVO 110 180 Piperacillin-Tazobactam 3 200 200 .375 gm In Sodium Chloride 0.9% 100 ml @ 25 mls/hr IVPB Q8HR [facility] Rx# :[id number] Potassium Chloride 20 meq 200 In Water For Injection 1 100ml.bag @ 50 mls/hr IVPB Q2H [facility] Rx#: [id number] pressure bag 33 54 Tube Feeding 550 900 Other 90 120 Output: Urine 1150 900 Other: Voiding Method Indwelling Catheter Indwelling Catheter Indwelling Catheter # Bowel Movements 1 1 ABP, PAP, CO, CI - Last Documented Arterial Blood Pressure 158/76 - Exam GENERAL EXAM: Revealed a 54-year-old female in no distress patient has trach collar in place, and she is on 28% trach collar. HEAD: Normocephalic. EYES: Normal reaction of pupils, equal size. NOSE: Clear with pink turbinates. THROAT: Tracheostomy tube is in place and intact NECK: Tracheostomy is intact. CHEST: No chest wall deformity. LUNGS: Scattered rhonchi mostly on forced expiratory maneuver otherwise unremarkable CVS: S1 and S2 normal with no audible murmur, regular rhythm. ABDOMEN: No hepatosplenomegaly, normal bowel sounds, no guarding or rigidity. The patient has a PEG tube in place and the exit site is dry clean and intact. SKIN: No rashes CENTRAL NERVOUS SYSTEM: Sedated, tone is normal in all 4 extremities. EXTREMITIES: There is no peripheral edema. No clubbing, no cyanosis. Peripheral pulses are intact. Arousable and following simple commands. Profound generalized weakness in all 4 extremities. - Labs CBC & Chem 7: 11/21/24 04:47 11/21/24 04:47 Labs: Abnormal Lab Results - Last 24 Hours (Table) 11/21/24 11/21/24 11/21/24 Range/Units 01:06 04:47 04:47 WBC 13.4 H (3.8-10.6) k/uL RBC 2.90 L (3.80-5.40) m/uL Hgb 8.4 L (11.4-16.0) gm/dL Hct 28.9 L (34.0-46.0) % MCHC 29.1 L (31.0-37.0) g/dL RDW 18.2 H (11.5-15.5) % Plt Count 553 H (150-450) k/uL Neutrophils # 11.3 H (1.3-7.7) k/uL Lymphocytes # 0.9 L (1.0-4.8) k/uL Carbon Dioxide 33 H (22-30) mmol/L BUN 22 H (7-17) mg/dL Glucose 117 H (74-99) mg/dL POC Glucose (mg/dL) 115 H (70-110) mg/dL 11/21/24 11/21/24 Range/Units 06:44 12:12 WBC (3.8-10.6) k/uL RBC (3.80-5.40) m/uL Hgb (11.4-16.0) gm/dL Hct (34.0-46.0) % MCHC (31.0-37.0) g/dL RDW (11.5-15.5) % Plt Count (150-450) k/uL Neutrophils # (1.3-7.7) k/uL Lymphocytes # (1.0-4.8) k/uL Carbon Dioxide (22-30) mmol/L BUN (7-17) mg/dL Glucose (74-99) mg/dL POC Glucose (mg/dL) 123 H 130 H (70-110) mg/dL Assessment and Plan Assessment: Impression: Acute hypoxic and hypercapnic respiratory failure secondary to acute COPD exacerbation and underlying Pseudomonas aeruginosa pneumonia patient was a failure to wean, underwent tracheostomy and PEG tube placement on 11/15, patient is presently on trach collar at 28%. T 8 fracture and the patient had spine surgery. The patient was discharged from the hospital following surgery on 10/27/2024 for open treatment of a T8 fracture, irrigation and excisional debridement of thoracic spine wound measuring 10 x 7 x 4 cm, posterior lateral instrumented fusion of T7-T11 and cement augmentation of T8-T10 vertebral bodies. T2 vertebral fracture with revision of C2-T7 posterior lateral fusion on 09/09/2024 Surgical site infection and wound dehiscence, wound and blood cultures revealed no growth Acute leukocytosis, improved Acute on chronic anemia with a hemoglobin is stable for now Rectal prolapse History of hypertension History of hyperlipidemia History of coronary artery disease History of heart failure with preserved ejection fraction based on echocardiogram from July 2023 History of gastroesophageal reflux disease History of seizure disorder History of hypothyroidism History of anxiety/depression/PTSD Recommendation: Continue trach collar at 28% Continue trach care as per protocol Continue enteral feeding via PEG tube Continue antibiotics/Zosyn until discharge. Continue DuoNeb Continue Solu-Medrol Transition to prednisone via PEG tube Continue Pulmicort and Perforomist Continue GI DVT prophylaxis Consider discharge planning to [facility]. Will continue to follow Time with Patient: Less than 30
--- NOTE | 2024-11-21 17:05 | P.PN ---
Subjective Progress Note Date: 11/21/24 Principal diagnosis: Reason for follow-up is pneumonia Patient is a 54-year-old female with a past medical history significant for COPD DVT hypertension hyperlipidemia who recently did have a cervical thoracic spine surgery revision for a nonhealing wound to the mid/upper back area patient cultures were negative has been brought to the hospital on the patient was found to be unresponsive requiring elevation and admission to the ICU Patient is status post tracheostomy and PEG tube placement completed on 11/15/2024. On today's evaluation that is 11/21/2024, patient has been afebrile, patient is currently on 6 L trach collar seem to be breathing comfortably she is more awake but not a very good historian and is very hard to communicate no medical data has been reported. Patient white count is down to 13.4 creatinine 0.61 Objective - Vital Signs Vital signs: Vital Signs Temp 96.9 F L 11/21/24 00:00 Pulse 93 11/21/24 13:04 Resp 18 11/21/24 12:00 BP 156/62 11/21/24 12:00 Pulse Ox 95 11/21/24 12:00 FiO2 28 11/21/24 09:31 Intake & Output 11/20/24 11/21/24 11/21/24 18:59 06:59 18:59 Intake Total 1183 1454 Output Total 1150 900 Balance 33 554 Weight 56.5 kg Intake: IV 543 434 0.9 @ KVO 110 180 Piperacillin-Tazobactam 3 200 200 .375 gm In Sodium Chloride 0.9% 100 ml @ 25 mls/hr IVPB Q8HR [facility] Rx# :[id number] Potassium Chloride 20 meq 200 In Water For Injection 1 100ml.bag @ 50 mls/hr IVPB Q2H [facility] Rx#: [id number] pressure bag 33 54 Tube Feeding 550 900 Other 90 120 Output: Urine 1150 900 Other: Voiding Method Indwelling Catheter Indwelling Catheter Indwelling Catheter # Bowel Movements 1 1 ABP, PAP, CO, CI - Last Documented Arterial Blood Pressure 158/76 - Exam GENERAL DESCRIPTION: Middle-age female intubated through the trach RESPIRATORY SYSTEM: Unlabored breathing , decreased breath sounds at bases HEART: S1 S2 regular rate and rhythm , ABDOMEN: Soft , no tenderness EXTREMITIES: No edema feet - Labs CBC & Chem 7: 11/21/24 04:47 11/21/24 04:47 Labs: Abnormal Lab Results - Last 24 Hours (Table) 11/21/24 11/21/24 11/21/24 Range/Units 01:06 04:47 04:47 WBC 13.4 H (3.8-10.6) k/uL RBC 2.90 L (3.80-5.40) m/uL Hgb 8.4 L (11.4-16.0) gm/dL Hct 28.9 L (34.0-46.0) % MCHC 29.1 L (31.0-37.0) g/dL RDW 18.2 H (11.5-15.5) % Plt Count 553 H (150-450) k/uL Neutrophils # 11.3 H (1.3-7.7) k/uL Lymphocytes # 0.9 L (1.0-4.8) k/uL Carbon Dioxide 33 H (22-30) mmol/L BUN 22 H (7-17) mg/dL Glucose 117 H (74-99) mg/dL POC Glucose (mg/dL) 115 H (70-110) mg/dL 11/21/24 11/21/24 Range/Units 06:44 12:12 WBC (3.8-10.6) k/uL RBC (3.80-5.40) m/uL Hgb (11.4-16.0) gm/dL Hct (34.0-46.0) % MCHC (31.0-37.0) g/dL RDW (11.5-15.5) % Plt Count (150-450) k/uL Neutrophils # (1.3-7.7) k/uL Lymphocytes # (1.0-4.8) k/uL Carbon Dioxide (22-30) mmol/L BUN (7-17) mg/dL Glucose (74-99) mg/dL POC Glucose (mg/dL) 123 H 130 H (70-110) mg/dL Assessment and Plan (1) Pneumonia Current Visit: Yes Status: Acute Code(s): J18.9 - PNEUMONIA, UNSPECIFIED ORGANISM SNOMED Code(s): 466506051 (2) Abnormal CT scan, chest Current Visit: Yes Status: Acute Code(s): R93.89 - ABNORMAL FINDINGS ON DX IMAGING OF OTH BODY STRUCTURES SNOMED Code(s): 50840235316739550 (3) Leukocytosis Current Visit: No Status: Acute Code(s): D72.829 - ELEVATED WHITE BLOOD CELL COUNT, UNSPECIFIED SNOMED Code(s): 113625844 Plan: 1patient presented to hospital after the patient was found to be unresponsive at home concerning for possible drug overdose also noted to have significant finding on a chest x-ray and the CT concerning for possible pneumonia question of aspiration etiology in this patient has been around the hospital concerning for possible resistant gram-positive as well as gram-negative pathogen, the thoracic or cervical incision currently looks clean without cellulitis or any drainage 2-patient did have Pseudomonas aeruginosa in the sputum concerning for pneumonia possible aspiration, 3patient is afebrile and white count is down to 13,000, continue Zosyn and monitor clinical course closely Dictation was produced using [employer] dictation software. please excuse any grammatical, word or spelling errors.
[2024-11-21 18:24] LABS: Glucose,Whole Blood 119 mg/dL (70-110)
[2024-11-22 02:14] LABS: Glucose,Whole Blood 120 mg/dL (70-110)
--- NOTE | 2024-11-22 05:55 | P.PN ---
Subjective Progress Note Date: 11/21/24 Patient is evaluated today in follow up in the intensive care unit. Patient remains intubated on the mechanical ventilator with PEEP of 5 and FiO2 of 40%. Patient remains sedated. LFTs remain elevated, white blood cell count up to 38. Blood culture pending. Patient continues on IV Vancomycin and IV cefepime. ID following. Chest xray today reveals stable upper lobe interstitial opacities. Spinal surgery evaluated the patient felt the wound was noninfectious and healing well. Patients heart rate has been in the 120s was resumed on home medication of propanolol and has had improvement in the heart rate down to the 80s this afternoon. 11/08/2024 Patient is evaluated today in follow up in the ICU. Remains intubated and sedated on the mechanical ventilator with settings at PEEP of 5 and 40% FiO2. C hest xray today reveals interstitial opacities correlating for atypical pneumonia. There is extensive fixation hardware throughout the spine. White blood cell count of 18.7, hgb 7.0, MCV 105.6. Magnesium 1.2, potassium 3.3. Remains on IV cefepime, IV vancomycin. Has been started on systemic steroids. Patient with low grade temp of 99.8 today. Blood pressure low/normal. 11/09/2024 Patient is evaluated in the Intensive care unit, family at the bedside. Patient remains on the mechanical ventilator with PEEP of 5, FiO2 of 40%. Not ready for weaning today. Chest xray reveals interstitial opacities of the lungs correlate for atypical pneumonia. Sputum positive for pseudomonas. Patient remains on IV Cefepime. Also on IV solumedrol. Patient is sedated with propofol. Normal saline is running at 75 mls/hr. White blood cell count 17.9, hgb 8.1. Sodium 145, potassium 4.1, BUN 23, creatinine 0.67. Patient with low grade temp 99 axillary. 11/10/2024 Patient evaluated today in the intensive care unit. She remains sedated and intubated on mechanical ventilator settings of PEEP of 5 with FiO2 40%. She is awake and alert although her eyes are not tracking. She does remain on propofol. Chest x-ray today reveals interstitial opacities of the lungs are unchanged. Sputum culture shows Pseudomonas x 2. Her labs today reveal a white blood cell count of 18.2, hemoglobin 8.6, platelet count of 625, sodium of 145, potassium 3.8, BUN of 26, creatinine of 0.73, magnesium 2.1. Her blood glucose is controlled. She is having some residuals with the enteral feedings per the nurse they have been decreased to 20 mL/h and will monitor the residuals closely. Patient continues on IV cefepime IV Solu-Medrol. She is sedated with IV propofol she is on normal saline at 75 mL/h. Pulmonary is considering this patient for tracheostomy and PEG tube placement 11/11/2024 Patient evaluated in the ICU patient is unable to be weaned and continues to become agitated when weaning off the propofol. Residuals are better today and tube feeds up to 30 mls/hr and she is having bowel movements. Antibiotics have been transitioned to IV zosyn. ID following closely. Labs today reveal white blood cell count 19.2, hgb 8.3, sodium 144, potassium 4.0, BUN 27, creatinine 0.66. Chest xray today reveals stable findings. 11/14/2024 Patient is evaluated today in the intensive care unit. No family able to bring patients briviact up to the hospital so she has been started on oral keppra. Continues to be sedated and intubated on the mechanical ventilator. Chest xray today reveals no new acute pulmonary process. Hemoglobin 6.4 today and patient scheduled to receive 1 unit of PRBC. White blood cell count down to 12.7. Sodium 147, potassium 3.3., BUN 26, creatinine 0.69. General surgery was consulted for PEG/Trach. 11/15/2024 Patient is evaluated in follow-up remains in the ICU she is sedated and intubat ed; on the mechanical ventilator with an FiO2 of 40% PEEP of 5. Patient will be going for trach and PEG tube placement. Chest x-ray today reveals no acute new pulmonary process. White blood cell count is 21.9, hemoglobin 8.7, sodium of 147 potassium 3.8, BUN 22 creatinine 0.64 magnesium 1.9. 11/16/2024 Patient is evaluated in follow-up remains in the intensive care unit. Patient is currently sedated with propofol she is currently intubated on mechanical ventilator with a FiO2 of 40% and a PEEP of 5. Patient underwent tracheostomy and PEG tube placement yesterday. Chest x-ray reveals no new acute process. Improved bilateral interstitial edema noted. Patient to be started on oral [place] today. She continues on IV Zosyn. Her labs reveal a white blood cell count of 16.6, hemoglobin 8.7, sodium of 140, potassium 3.6, creatinine 0.64. 11/17/2024 Patient evaluated in the ICU. Remains on the mechanical ventilator intubated. Awake alert and following some commands. Status post tracheostomy and PEG tube placement. Labs today 15.9, hgb 8.6, sodium 139, potassium 3.2, BUN 18, creatin ine 0.67. 11/18/2024 Patient evaluated today in the ICU and remains on the mechanical ventilator i ntubated. Patient is awake alert following simple commands. Diffusely weak. She is currently off sedation. Patient is status post tracheostomy and PEG tube placement. Continues on enteral feedings. Patient will continue on Vital 1.2 with goal of 50 mls/hr. 11/19/2024 Patient evaluated in the intensive care unit she is status post trach and PEG tube placement. She is off the propofol awake alert and oriented she states that she is scared in regards to the tracheostomy tube. Her chest x-ray today reveals persistent small left pleural effusion with associated basilar infiltrate and or atelectasis. Her labs reveal a white blood cell count of 14.8, hemoglobin 8.6, sodium of 141 potassium of 3.4, BUN of 25 creatinine of 0.67. 11/20/2024 Patient is evaluated in follow-up in intensive care unit. Patient is status post tracheostomy and PEG tube placement. Patient has been on the trach collar overnight and doing well. She is off the mechanical ventilator at this time. Patient is awake alert oriented following commands. Patient will be moved out of the intensive care unit when a bed is available. Her chest x-ray today reveals persistent small pleural effusion with associated bibasilar infiltrate and/or atelectasis. labs today reveal a white blood cell count of 14.2, hemoglobin 8.4, sodium of 142, potassium 3.6, BUN of 25 creatinine 0.61 magnesium level of 1.9. 11/21/2024 Patient is seen in follow-up today continues in the ICU on tracheostomy and PEG tube. Patient is continued on trach collar with pulmonary property caretaker following and working on transferring to [facility] for continued ongoing care. White count remains elevated and patient is maintained on antibiotics with infectious disease following. Case management following as patient requires insurance authorization which is currently pending. Possible discharge planning in the next 24 hours to LTAC Unable to complete review of systems as patient is currently lethargic and sedated. Physical Examination GENERAL EXAM: This is a 54-year-old female, currently sedated on tracheostomy, well-developed, elderly appearing, thin built HEAD: Normocephalic. Normal reaction of pupils, equal size. THROAT: No erythema or exudates. NECK: No masses, no JVD. CHEST: No chest wall deformity. LUNGS: Diminished breath sounds bilaterally with some scattered rhonchi and bronchial congestion noted CVS: S1 and S2 muffled ABDOMEN: No hepatosplenomegaly, normal bowel sounds, no guarding or rigidity. Peg tube in place. SPINE: No scoliosis or deformity. Surgical dressing dry and intact. SKIN: No rashes CENTRAL NERVOUS SYSTEM: Sedated, tone is normal in all 4 extremities. EXTREMITIES: There is no peripheral edema. No clubbing, no cyanosis. Peripheral pulses are intact. Assessment: -Altered mental status from acute toxic and metabolic encephalopathy with episode of unresponsive, likely related to narcotics versus sepsis -Unable to rule out aspiration pneumonia -Pseudomonas pneumonia Healthcare acquired with septic shock POA -Acute hypoxic/hypercapnic respiratory failure; as indicated above; patient rem ains on mechanical ventilation, status post tracheostomy and PEG tube placement -Surgical site infection/wound dehiscence and Patient is status post surgery on 10/27/2024 for open treatment of a T8 fracture, irrigation and excisional debridement of thoracic spine wound measuring 10 x 7 x 4 cm, posterior lateral instrumented fusion of T7-T11 and cement augmentation of T8-T10 vertebral bodies; Orthopedic surgery consulted and felt the wound was noninfectious and healing well. -Leukocytosis/sepsis; continue with IV antibiotics as indicated above; patient has been pancultured -Hypernatremia, improving -History of hypertension; propranolol 20 mg twice daily has been resumed; prazosin 2 mg twice daily on hold -Macroctyic anemia -Hyperlipidemia; currently not on any statin therapy -Hypothyroidism; levothyroxine 88 mcg daily -History of CAD -Chronic heart failure with preserved EF with no acute exacerbation -History of COPD/Asthma -PTSD/Bipolar/Borderline personality -Chronic nicotine use -Polysubstance use -Rectal prolapse -Hx seizure disorder -Gastroesophageal reflux DVT prophylaxis; SCDs/subcu heparin CODE STATUS; full code Plan: -Patient was intubated and mechanically ventilated in ED. patient has been extubated and is currently on a trach collar and trial weaning and working on possible LTAC with case management following and requires insurance authorization which is pending. -Urine drug screen positive for opiates, barbiturates, tricyclic antidepressants, benzodiazepines and marijuana concern for polysubstance use, narcotics being held currently -Blood culture negative so far -Sputum culture revealing pseudomonas aeruginosa. x2 -Critical care service on board -Patient continues on IV antibiotics in the form of IV zosyn. Infectious diseases following -Patient has been transition to oral prednisone -Residuals are improved and at about 100 mls and patient continues on enteral feedings at goal and tolerating, recommend aspiration precautions and head of the bed elevated 35 to 45 degrees at all times -Antiseizure medications have been resumed; we do not carry briviact so patient was transitioned over to keppra. -Monitor electrolytes and renal function -Patient is status post 1 unit of packed red blood cells this admission with improvement in her hemoglobin -Status post PEG/Trach continue on enteral feedings. -Plan is for LTAC on discharge. Requiring insurance authorization which is pending at this time The impression and plan of care has been dictated by Kristina Wells, Nurse Practitioner as directed. Dr. Dick MD I have performed a history and physical examination and medical decision making of this patient, discussed the same with the dictator, and agree with the dictators assessment and plan as written, documented as a scribe. Based on total visit time, I have performed more than 50% of this visit. Objective - Vital Signs Vital signs: Vital Signs Temp 97 F L 11/22/24 04:00 Pulse 87 11/22/24 05:14 Resp 21 11/22/24 04:00 BP 124/99 11/22/24 04:00 Pulse Ox 94 L 11/22/24 04:00 FiO2 28 11/21/24 09:31 Intake & Output 11/21/24 11/21/24 11/22/24 06:59 18:59 06:59 Intake Total 1454 900 624 Output Total 900 1100 550 Balance 554 -200 74 Weight 56.5 kg 52.2 kg Intake: IV 434 164 0.9 @ KVO 180 40 Piperacillin-Tazobactam 3 200 100 .375 gm In Sodium Chloride 0.9% 100 ml @ 25 mls/hr IVPB Q8HR [facility] Rx# :[id number] pressure bag 54 24 Tube Feeding 900 900 400 Other 120 60 Output: Urine 900 1100 550 Other: Voiding Method Indwelling Catheter Indwelling Catheter Indwelling Catheter # Bowel Movements 1 ABP, PAP, CO, CI - Last Documented Arterial Blood Pressure 158/76 - Labs CBC & Chem 7: 11/21/24 04:47 11/21/24 04:47 Labs: Abnormal Lab Results - Last 24 Hours (Table) 11/21/24 11/21/24 11/21/24 Range/Units 06:44 12:12 18:23 POC Glucose (mg/dL) 123 H 130 H 119 H (70-110) mg/dL 11/22/24 Range/Units 02:13 POC Glucose (mg/dL) 120 H (70-110) mg/dL
[2024-11-22 06:09] LABS: Anisocytosis Slight; Basophils % (A) 0 %; Eosinophils # (A) 0.4 k/uL (0-0.7); Eosinophils % (A) 3 %; HCT 31.3 % (34.0-46.0); HGB 9.1 gm/dL (11.4-16.0); Hypochromasia Marked; Lymphocytes # (A) 0.9 k/uL (1.0-4.8); Lymphocytes % (A) 7 %; MCH 28.8 pg (25.0-35.0); MCV 99.2 fL (80.0-100.0); Macrocytosis Slight; Mean Platelet Volume 7.9; Monocytes # (A) 0.5 k/uL (0-1.0); Monocytes % (A) 4 %; Neutrophils # (A) 11.3 k/uL (1.3-7.7); Neutrophils % (A) 86 %; Platelet Count 530 k/uL (150-450); RBC 3.15 m/uL (3.80-5.40); WBC 13.2 k/uL (3.8-10.6)
[2024-11-22 06:28] LABS: African American GFR (CKD) >90 (>60 ml/min/1.73 sqM); Anion Gap 4 mmol/L; Blood Urea Nitrogen 26 mg/dL (7-17); Calcium 8.9 mg/dL (8.4-10.2); Carbon Dioxide 30 mmol/L (22-30); Chloride 107 mmol/L (98-107); Glucose 124 mg/dL (74-99); Non-African American GFR(CKD) >90 (>60 ml/min/1.73 sqM); Potassium 3.7 mmol/L (3.5-5.1); Sodium 141 mmol/L (137-145)
[2024-11-22 07:01] LABS: Glucose,Whole Blood 122 mg/dL (70-110)
[2024-11-22] MEDS: POTASSIUM CHLORIDE 10 MEQ in WATER FOR INJECTION 1 100ML.BAG IVPB SCH (07:56)
--- NOTE | 2024-11-22 13:36 | P.PN ---
Subjective Progress Note Date: 11/22/24 Principal diagnosis: AMS/Nonresponsive Recent back surgery Patient seen and examined this morning. Patient is resting comfortably in bed. She is awake and alert. Patient has been on trach collar 5L O2, with pulmonary following. Patient has also had Peg tube placement and receiving nutrition via tube feed. Case management is working on transferring to select specialties for continued ongoing care. She is able to shake her head yes or no appropriately to simple questions. She was able to assist with turning to her side with moderate assist from RN to allow for suture removal of her thoracic incision. Edges are well approximated, sutures removed to the upper portion of the incision. We have left some sutures to the distal end of the incision due to delayed wound healing related to pressure on incision. These may be removed by facility when patient transfers when appropriate. Incision has been cleansed with Chloraprep swab and left open to air. Continue to turn patient q 2 hours to keep pressure from incision. Continue patient on antibiotics. Objective - Vital Signs Vital signs: Vital Signs Temp 97.0 F L 11/22/24 08:00 Pulse 93 11/22/24 09:12 Resp 22 11/22/24 08:00 BP 145/89 11/22/24 08:00 Pulse Ox 100 11/22/24 08:39 FiO2 28 11/22/24 08:39 Intake & Output 11/21/24 11/22/24 11/22/24 18:59 06:59 18:59 Intake Total 900 624 Output Total 1100 550 Balance -200 74 Weight 52.2 kg Intake: IV 164 0.9 @ KVO 40 Piperacillin-Tazobactam 3 100 .375 gm In Sodium Chloride 0.9% 100 ml @ 25 mls/hr IVPB Q8HR [facility] Rx# :[id number] pressure bag 24 Tube Feeding 900 400 Other 60 Output: Urine 1100 550 Other: Voiding Method Indwelling Catheter Indwelling Catheter Indwelling Catheter ABP, PAP, CO, CI - Last Documented Arterial Blood Pressure 158/76 - Exam Physical Examination General: The patient is awake and alert, in no acute distress. Skin: Skin is warm and dry with no obvious rashes or lesions. Surgical incision to the Thoracic spine. Edges are well approximated, sutures removed to the upper portion of the incision. We have left some sutures to the distal end of the incision due to delayed wound healing related to pressure on incision. Eye: Pupils are equal, round and reactive to light, extra-ocular movements are intact; there is normal conjunctiva bilaterally. Neck: The neck is supple, trach collar is present at 5L and dressing is CDI. Respiratory: Respirations are non-labored. Gastrointestinal: Soft, non-distended, non-tender abdomen. Back: There is no tenderness to palpation in the midline, paralumbar, parathoracic or buttocks region. There is no obvious deformity. Musculoskeletal: ROM limited secondary to patient being on mechanical ventilator and immobile for multiple days Right: Shoulder abduction 4/5, elbow flexors 4/5, wrist dorsiflexors 4/5. finger abductor 4/5, bean sprout grower 4/5, hip flexor 3/5, knee flexor 3/5, ankle dorsiflexor 3/5, ankle plantarflexion 3-/5 and extensor hallucis 3-/5 Left: Shoulder abduction 4/5, elbow flexors 4/5, wrist dorsiflexors 4/5. finger abductor 4/5, bean sprout grower 4/5, hip flexor 3/5, knee flexor 3/5, ankle dorsiflexor 3/5, ankle plantarflexion 3-/5 and extensor hallucis 3-/5. Neurological: CN 2-12 intact. There are no obvious motor or sensory deficits. Movement and coordination equal and intact. Sensory exam to light touch intact C5-T1 and intact from L2-S1. Reflexes 2/4 in bilateral upper and lower extremities. Negative Hoffmans, babinski, and clonus signs. Psychiatric: Cooperative, appropriate mood & affect, normal judgment. - Labs CBC & Chem 7: 11/22/24 05:35 11/22/24 05:35 Labs: Abnormal Lab Results - Last 24 Hours (Table) 11/21/24 11/21/24 11/22/24 Range/Units 12:12 18:23 02:13 WBC (3.8-10.6) k/uL RBC (3.80-5.40) m/uL Hgb (11.4-16.0) gm/dL Hct (34.0-46.0) % MCHC (31.0-37.0) g/dL RDW (11.5-15.5) % Plt Count (150-450) k/uL Neutrophils # (1.3-7.7) k/uL Lymphocytes # (1.0-4.8) k/uL BUN (7-17) mg/dL Glucose (74-99) mg/dL POC Glucose (mg/dL) 130 H 119 H 120 H (70-110) mg/dL 11/22/24 11/22/24 11/22/24 Range/Units 05:35 05:35 06:59 WBC 13.2 H (3.8-10.6) k/uL RBC 3.15 L (3.80-5.40) m/uL Hgb 9.1 L (11.4-16.0) gm/dL Hct 31.3 L (34.0-46.0) % MCHC 29.0 L (31.0-37.0) g/dL RDW 18.0 H (11.5-15.5) % Plt Count 530 H (150-450) k/uL Neutrophils # 11.3 H (1.3-7.7) k/uL Lymphocytes # 0.9 L (1.0-4.8) k/uL BUN 26 H (7-17) mg/dL Glucose 124 H (74-99) mg/dL POC Glucose (mg/dL) 122 H (70-110) mg/dL Assessment and Plan Assessment: Altered mental status/unresponsive Postop week 4: open treatment T8 fracture; irrigation and excisional debridement of thoracic spine wound; posterior lateral instrumented fusion T7-T11 Generalized weakness Plan: Patient to follow up in Dr. Mchugh's office when medically stable. 2. Appreciate medical management 3. Pain management - Continue with current regimen, Utilize ice therapy 20min every hour as needed. 4. Daily PT/OT, continue to encourage patient with bed exercises and increase activity as tolerated. 5. Keep pressure off thoracic incision, remaining sutures may be removed by care facility when appropriate. Keep incision clean and dry. 5. Appreciate consult.
--- NOTE | 2024-11-22 14:07 | P.PN ---
Subjective Progress Note Date: 11/22/24 Principal diagnosis: Advanced COPD, failure to wean with chronic hypoxic and hypercapnic respiratory failure with ongoing history of COPD exacerbation., On 11/15/2024, the patient is being seen for a follow-up. The patient remains intubated on mechanical ventilator and the patient is awaiting a tracheostomy and a PEG tube insertion today. This morning, the patient is on a propofol running at 50 mcg/kg/min. The patient is also on D5 half-normal saline at rate of 75 cc an hour. The patient is hemodynamically stable. The patient's blood gases from today showed a pH of 7.28 with a pCO2 of 57 and pO2 of 80 and this was done on a assist-control mode at rate of 30, tidal volume of 320, FiO2 40% with a PEEP of 5. Chest x-ray shows no acute cardiopulmonary process. ET tube is in good location. NG tube is in good location. Extensive surgical changes seen involving the thoracic spine. The white cell count of 21, hemoglobin is at 8.7 and a platelet count of 661. Sodium is at 147, chloride 114, bicarb is 29, BUN 22 with a creatinine of 0.6. Blood sugar today is at 103. This plan is to proceed with a PEG and a tracheostomy tube insertion today. This will be done by general surgery. The patient remains on IV Zosyn. On 11/16/2024, the patient is being seen for a follow-up. The patient is status post tracheostomy tube insertion and the PEG tube was also inserted for enteral feeding and nutritional support. The procedure was successful without any complications. The patient this morning is on propofol which is running at 50 mcg/kg/min. She assist-control mode at rate of 24, tidal volume of 350, FiO2 of 40% with a PEEP of 5. The blood gas showed a pH of 7.3 with a pCO2 of 58 and pO2 76. The peak airway pressure is at 34 and the patient remains bron chospastic and wheezy. No significant respiratory secretions. Follow-up chest x-ray was done today and the patient has developed increased interstitial marking bilaterally. No focal airspace disease or opacity. Tracheostomy tube is in good location. Postsurgical changes were also seen in the lower lobes bilaterally. The patient's white cell count is 16.6, hemoglobin is at 8 with a platelet count of 687. Sodium is at 140, potassium is at 3.6, bicarb is at 29, BUN 17 with a creatinine of 0.6. Remains on bronchodilators. Remains on IV Solu-Medrol. Remains on IV Zosyn as an empiric antibiotic coverage. Rest of the medication remain unchanged and the patient will be started on enteral feeding for nutritional support. She is also on Lovenox 40 mg subcu for DVT prophylaxis. On 11/17/2024, the patient is being seen for a follow-up. This morning, the patient has been more responsive as the patient is being weaned off the propofol. Propofol is running at 30 mcg/kg/min. She is status post a Symptom insertion. She remains on assist-control mode of mechanical ventilation at rate of 24, tidal volume of 350, FiO2 40% with a PEEP of 5. Follow-up blood gas shows improvement in acid-base status. pH of 7.38 with a pCO2 of 22 and pO2 of 94. The peak airway pressure is at 30. Fluid balance is +60 disease over the past 24 hours. Chest x-ray shows no acute pulmonary infiltrates. Previous sputum samples showed Pseudomonas aeruginosa. Remains on DuoNeb updrafts. Remains on Perforomist and Pulmicort. Remains on IV Solu-Medrol 60 mg every 6 hours. Remains on IV Zosyn. Will start enteral feeding for nutritional support. Will continue weaning the sedation. The white cell count is 15.9, improving, hemoglobin stable at 8.6 and a platelet count is at 652. Sodium is at 139, potassium is at 3.2, BUN is 18 with a creatinine of 0.6. LFTs are normal. On 11/18/2024, the patient is being seen for a follow-up. This morning, the patient is on propofol. She is arousable and she is following simple commands. She is profoundly weak. She is on assist-control mode of mechanical ventilation at rate of 24, tidal volume of 350, FiO2 40% with a PEEP of 5. Blood gas showed pH of 7.37 with a pCO2 of 50 and pO2 of 92. The peak airway pressure is 27. Chest x-ray is unchanged. No pulmonary infiltrates. The patient is on IV Lasix. Fluid balance is -1 L over the past 24 hours. The patient remains on vital HP for enteral feeding in situ support and the patient has a PEG tube in place. No other significant events overnight. The patient has not required any further sedation while being off propofol. The white cell count of 20 with a hemoglobin 9.1 and platelet count of 659. Sodium is at 141, BUN is 22 with a creatinine of 0.6 and a serum bicarb is at 34. Glucose at 138. On 11/19/2024, the patient is being seen for a follow-up. This morning, the patient is back on the mechanical ventilator. Noted she less than a trach collar for a total of 10 hours yesterday and around 6 PM, the patient was placed back on the mechanical ventilator. This morning, she is on assist-control rate of 24, tidal volume of 350, FiO2 of 40% with a PEEP of 5. Blood gas showed a pH of 7.39 with a pCO2 of 58 and pO2 of 97. Calm and comfortable. Awake and alert and following commands and answering questions appropriately. Chest x-ray findings are essentially unchanged and stable. Some atelectatic changes in left lung base. Fluid balance is -1.7 L and the patient remains on vital HP at rate of 50 cc an hour. Blood work from today shows white cell count of 14.8, hemoglobin of 8.6 and a platelet count of 627. BUN is 25 OF 0.6 and a sodium of 141 and a potassium level is at 3.4. Patient was seen today on 11/21/2024, patient remains in the ICU, she has a trach collar in place, she is on 28% FiO2, she has a 6 Shiley disposable inner cannula, she is on enteral feeding via PEG tube receiving vital HP at 50 cc/h. Patient had her tracheostomy placed on 11/15. Doing fairly well, patient is not requiring significant amount of suctioning. Does not seem to be in distress, hence we will start addressing placement on this patient. WBC count is 13.4 hemoglobin 8.4 electrolytes are normal renal profile is normal. Previous sputum cultures from 11/08 have been positive for Pseudomonas aeruginosa, and that has been addressed and treated. Chest x-ray showed small left pleural effusion and basilar infiltrate and/or atelectasis. Patient was seen today on 11/22/2024, remains in the ICU, patient has a trach collar in place 28% FiO2, this is a #6 Shiley, nonfenestrated, the cuff is deflated, patient is doing fairly well, she has a PEG tube in place and being fed via PEG tube. No major issues in the last 24 hours, WBC count is 13.2 hemoglobin 9.1 electrolytes are normal renal profile is normal chest x-ray from 2 days ago showed small left pleural effusion and basilar atelectasis. Objective - Vital Signs Vital signs: Vital Signs Temp 97.3 F L 11/22/24 12:00 Pulse 86 11/22/24 13:15 Resp 22 11/22/24 12:00 BP 129/57 11/22/24 12:00 Pulse Ox 93 L 11/22/24 12:00 FiO2 28 11/22/24 08:39 Intake & Output 11/21/24 11/22/24 11/22/24 18:59 06:59 18:59 Intake Total 900 624 660 Output Total 1100 550 700 Balance -200 74 -40 Weight 52.2 kg Intake: IV 164 350 0.9 @ KVO 40 50 Piperacillin-Tazobactam 3 100 100 .375 gm In Sodium Chloride 0.9% 100 ml @ 25 mls/hr IVPB Q8HR [facility] Rx# :[id number] Potassium Chloride 10 meq 200 In Water For Injection 1 100ml.bag @ 100 mls/hr IVPB Q1H [facility] Rx#: [id number] pressure bag 24 Tube Feeding 900 400 250 Other 60 60 Output: Urine 1100 550 700 Other: Voiding Method Indwelling Catheter Indwelling Catheter Indwelling Catheter # Bowel Movements 1 ABP, PAP, CO, CI - Last Documented Arterial Blood Pressure 158/76 - Exam GENERAL EXAM: Revealed a 54-year-old female in no distress patient has trach collar in place, and she is on 28% trach collar. HEAD: Normocephalic. EYES: Normal reaction of pupils, equal size. NOSE: Clear with pink turbinates. THROAT: Tracheostomy tube is in place and intact NECK: Tracheostomy is intact. CHEST: No chest wall deformity. LUNGS: Scattered rhonchi mostly on forced expiratory maneuver otherwise unremarkable CVS: S1 and S2 normal with no audible murmur, regular rhythm. ABDOMEN: No hepatosplenomegaly, normal bowel sounds, no guarding or rigidity. The patient has a PEG tube in place and the exit site is dry clean and intact. SKIN: No rashes CENTRAL NERVOUS SYSTEM: Seems to be awake arousable follows all instructions EXTREMITIES: There is no peripheral edema. No clubbing, no cyanosis. Peripheral pulses are intact. Arousable and following simple commands. Profound generalized weakness in all 4 extremities. - Labs CBC & Chem 7: 11/22/24 05:35 11/22/24 05:35 Labs: Abnormal Lab Results - Last 24 Hours (Table) 11/21/24 11/22/24 11/22/24 Range/Units 18:23 02:13 05:35 WBC 13.2 H (3.8-10.6) k/uL RBC 3.15 L (3.80-5.40) m/uL Hgb 9.1 L (11.4-16.0) gm/dL Hct 31.3 L (34.0-46.0) % MCHC 29.0 L (31.0-37.0) g/dL RDW 18.0 H (11.5-15.5) % Plt Count 530 H (150-450) k/uL Neutrophils # 11.3 H (1.3-7.7) k/uL Lymphocytes # 0.9 L (1.0-4.8) k/uL BUN (7-17) mg/dL Glucose (74-99) mg/dL POC Glucose (mg/dL) 119 H 120 H (70-110) mg/dL 11/22/24 11/22/24 Range/Units 05:35 06:59 WBC (3.8-10.6) k/uL RBC (3.80-5.40) m/uL Hgb (11.4-16.0) gm/dL Hct (34.0-46.0) % MCHC (31.0-37.0) g/dL RDW (11.5-15.5) % Plt Count (150-450) k/uL Neutrophils # (1.3-7.7) k/uL Lymphocytes # (1.0-4.8) k/uL BUN 26 H (7-17) mg/dL Glucose 124 H (74-99) mg/dL POC Glucose (mg/dL) 122 H (70-110) mg/dL Assessment and Plan Assessment: Impression: Acute hypoxic and hypercapnic respiratory failure secondary to acute COPD exacerbation and underlying Pseudomonas aeruginosa pneumonia patient was a failure to wean, underwent tracheostomy and PEG tube placement on 11/15, patient is presently on trach collar at 28%. T 8 fracture and the patient had spine surgery. The patient was discharged from the hospital following surgery on 10/27/2024 for open treatment of a T8 fracture, irrigation and excisional debridement of thoracic spine wound measuring 10 x 7 x 4 cm, posterior lateral instrumented fusion of T7-T11 and cement augmentation of T8-T10 vertebral bodies. T2 vertebral fracture with revision of C2-T7 posterior lateral fusion on 09/09/2024 Surgical site infection and wound dehiscence, wound and blood cultures revealed no growth Acute leukocytosis, improved Acute on chronic anemia with a hemoglobin is stable for now Rectal prolapse History of hypertension History of hyperlipidemia History of coronary artery disease History of heart failure with preserved ejection fraction based on echocardiogram from July 2023 History of gastroesophageal reflux disease History of seizure disorder History of hypothyroidism History of anxiety/depression/PTSD Recommendation: Continue trach collar at 28% Continue trach care as per protocol Continue enteral feeding via PEG tube Continue antibiotics/Zosyn until discharge. I believe the patient could have her antibiotics discontinued upon discharge. Continue DuoNeb Prednisone will be given instead of methylprednisolone 30 mg daily via PEG tube Continue Pulmicort and Perforomist Continue GI DVT prophylaxis Discharge planning is in progress to [facility], awaiting insurance approval. Will continue to follow Time with Patient: Less than 30
--- NOTE | 2024-11-22 16:23 | P.PN ---
Subjective Progress Note Date: 11/22/24 Principal diagnosis: Reason for follow-up is pneumonia Patient is a 54-year-old female with a past medical history significant for COPD DVT hypertension hyperlipidemia who recently did have a cervical thoracic spine surgery revision for a nonhealing wound to the mid/upper back area patient cultures were negative has been brought to the hospital on the patient was found to be unresponsive requiring elevation and admission to the ICU Patient is status post tracheostomy and PEG tube placement completed on 11/15/2024. On today's evaluation that is 11/22/2024, Patient is afebrile this morning patient seem to be breathing comfortably on 5 L trach collar trying to comm unicate but is hard to understand the question no vomiting or diarrhea has been reported. The patient white count is down to 13.2 creatinine 0.54 chest x-ray persistent small left effusion Objective - Vital Signs Vital signs: Vital Signs Temp 97.3 F L 11/22/24 12:00 Pulse 86 11/22/24 13:15 Resp 22 11/22/24 12:00 BP 129/57 11/22/24 12:00 Pulse Ox 93 L 11/22/24 12:00 FiO2 28 11/22/24 08:39 Intake & Output 11/21/24 11/22/24 11/22/24 18:59 06:59 18:59 Intake Total 900 624 660 Output Total 1100 550 700 Balance -200 74 -40 Weight 52.2 kg Intake: IV 164 350 0.9 @ KVO 40 50 Piperacillin-Tazobactam 3 100 100 .375 gm In Sodium Chloride 0.9% 100 ml @ 25 mls/hr IVPB Q8HR [facility] Rx# :[id number] Potassium Chloride 10 meq 200 In Water For Injection 1 100ml.bag @ 100 mls/hr IVPB Q1H [facility] Rx#: [id number] pressure bag 24 Tube Feeding 900 400 250 Other 60 60 Output: Urine 1100 550 700 Other: Voiding Method Indwelling Catheter Indwelling Catheter Indwelling Catheter # Bowel Movements 1 ABP, PAP, CO, CI - Last Documented Arterial Blood Pressure 158/76 - Exam GENERAL DESCRIPTION: Middle-age female intubated through the trach RESPIRATORY SYSTEM: Unlabored breathing , decreased breath sounds at bases HEART: S1 S2 regular rate and rhythm , ABDOMEN: Soft , no tenderness EXTREMITIES: No edema feet - Labs CBC & Chem 7: 11/22/24 05:35 03/18/25 05:35 Labs: Abnormal Lab Results - Last 24 Hours (Table) 11/21/24 11/22/24 11/22/24 Range/Units 18:23 02:13 05:35 WBC 13.2 H (3.8-10.6) k/uL RBC 3.15 L (3.80-5.40) m/uL Hgb 9.1 L (11.4-16.0) gm/dL Hct 31.3 L (34.0-46.0) % MCHC 29.0 L (31.0-37.0) g/dL RDW 18.0 H (11.5-15.5) % Plt Count 530 H (150-450) k/uL Neutrophils # 11.3 H (1.3-7.7) k/uL Lymphocytes # 0.9 L (1.0-4.8) k/uL BUN (7-17) mg/dL Glucose (74-99) mg/dL POC Glucose (mg/dL) 119 H 120 H (70-110) mg/dL 11/22/24 11/22/24 Range/Units 05:35 06:59 WBC (3.8-10.6) k/uL RBC (3.80-5.40) m/uL Hgb (11.4-16.0) gm/dL Hct (34.0-46.0) % MCHC (31.0-37.0) g/dL RDW (11.5-15.5) % Plt Count (150-450) k/uL Neutrophils # (1.3-7.7) k/uL Lymphocytes # (1.0-4.8) k/uL BUN 26 H (7-17) mg/dL Glucose 124 H (74-99) mg/dL POC Glucose (mg/dL) 122 H (70-110) mg/dL Assessment and Plan (1) Pneumonia Current Visit: Yes Status: Acute Code(s): J18.9 - PNEUMONIA, UNSPECIFIED ORGANISM SNOMED Code(s): 992183338 (2) Abnormal CT scan, chest Current Visit: Yes Status: Acute Code(s): R93.89 - ABNORMAL FINDINGS ON DX IMAGING OF OTH BODY STRUCTURES SNOMED Code(s): 21124127930020406 (3) Leukocytosis Current Visit: No Status: Acute Code(s): D72.829 - ELEVATED WHITE BLOOD CELL COUNT, UNSPECIFIED SNOMED Code(s): 223328072 Plan: 1patient presented to hospital after the patient was found to be unresponsive at home concerning for possible drug overdose also noted to have significant finding on a chest x-ray and the CT concerning for possible pneumonia question of aspiration etiology in this patient has been around the hospital concerning for possible resistant gram-positive as well as gram-negative pathogen, the thoracic or cervical incision currently looks clean without cellulitis or any drainage 2-patient did have Pseudomonas aeruginosa in the sputum concerning for pneumonia possible aspiration, 3patient is afebrile and white count is down to 13,000, chest x-ray chest x-ray persistent left-sided effusion and infiltrates will continue Zosyn at least 10 to 14-day course of therapy Dictation was produced using [employer] dictation software. please excuse any grammatical, word or spelling errors. Time with Patient: Less than 30
[2024-11-22 18:02] LABS: Glucose,Whole Blood 124 mg/dL (70-110)
[2024-11-22 23:59] LABS: Glucose,Whole Blood 106 mg/dL (70-110)
[2024-11-23 06:14] LABS: Glucose,Whole Blood 126 mg/dL (70-110)
--- NOTE | 2024-11-23 06:27 | P.PN ---
Subjective Progress Note Date: 11/22/24 Patient is evaluated today in follow up in the intensive care unit. Patient remains intubated on the mechanical ventilator with PEEP of 5 and FiO2 of 40%. Patient remains sedated. LFTs remain elevated, white blood cell count up to 38. Blood culture pending. Patient continues on IV Vancomycin and IV cefepime. ID following. Chest xray today reveals stable upper lobe interstitial opacities. Spinal surgery evaluated the patient felt the wound was noninfectious and healing well. Patients heart rate has been in the 120s was resumed on home medication of propanolol and has had improvement in the heart rate down to the 80s this afternoon. 11/08/2024 Patient is evaluated today in follow up in the ICU. Remains intubated and sedated on the mechanical ventilator with settings at PEEP of 5 and 40% FiO2. C hest xray today reveals interstitial opacities correlating for atypical pneumonia. There is extensive fixation hardware throughout the spine. White blood cell count of 18.7, hgb 7.0, MCV 105.6. Magnesium 1.2, potassium 3.3. Remains on IV cefepime, IV vancomycin. Has been started on systemic steroids. Patient with low grade temp of 99.8 today. Blood pressure low/normal. 11/09/2024 Patient is evaluated in the Intensive care unit, family at the bedside. Patient remains on the mechanical ventilator with PEEP of 5, FiO2 of 40%. Not ready for weaning today. Chest xray reveals interstitial opacities of the lungs correlate for atypical pneumonia. Sputum positive for pseudomonas. Patient remains on IV Cefepime. Also on IV solumedrol. Patient is sedated with propofol. Normal saline is running at 75 mls/hr. White blood cell count 17.9, hgb 8.1. Sodium 145, potassium 4.1, BUN 23, creatinine 0.67. Patient with low grade temp 99 axillary. 11/10/2024 Patient evaluated today in the intensive care unit. She remains sedated and intubated on mechanical ventilator settings of PEEP of 5 with FiO2 40%. She is awake and alert although her eyes are not tracking. She does remain on propofol. Chest x-ray today reveals interstitial opacities of the lungs are unchanged. Sputum culture shows Pseudomonas x 2. Her labs today reveal a white blood cell count of 18.2, hemoglobin 8.6, platelet count of 625, sodium of 145, potassium 3.8, BUN of 26, creatinine of 0.73, magnesium 2.1. Her blood glucose is controlled. She is having some residuals with the enteral feedings per the nurse they have been decreased to 20 mL/h and will monitor the residuals closely. Patient continues on IV cefepime IV Solu-Medrol. She is sedated with IV propofol she is on normal saline at 75 mL/h. Pulmonary is considering this patient for tracheostomy and PEG tube placement 11/11/2024 Patient evaluated in the ICU patient is unable to be weaned and continues to become agitated when weaning off the propofol. Residuals are better today and tube feeds up to 30 mls/hr and she is having bowel movements. Antibiotics have been transitioned to IV zosyn. ID following closely. Labs today reveal white blood cell count 19.2, hgb 8.3, sodium 144, potassium 4.0, BUN 27, creatinine 0.66. Chest xray today reveals stable findings. 11/14/2024 Patient is evaluated today in the intensive care unit. No family able to bring patients briviact up to the hospital so she has been started on oral keppra. Continues to be sedated and intubated on the mechanical ventilator. Chest xray today reveals no new acute pulmonary process. Hemoglobin 6.4 today and patient scheduled to receive 1 unit of PRBC. White blood cell count down to 12.7. Sodium 147, potassium 3.3., BUN 26, creatinine 0.69. General surgery was consulted for PEG/Trach. 11/15/2024 Patient is evaluated in follow-up remains in the ICU she is sedated and intubat ed; on the mechanical ventilator with an FiO2 of 40% PEEP of 5. Patient will be going for trach and PEG tube placement. Chest x-ray today reveals no acute new pulmonary process. White blood cell count is 21.9, hemoglobin 8.7, sodium of 147 potassium 3.8, BUN 22 creatinine 0.64 magnesium 1.9. 11/16/2024 Patient is evaluated in follow-up remains in the intensive care unit. Patient is currently sedated with propofol she is currently intubated on mechanical ventilator with a FiO2 of 40% and a PEEP of 5. Patient underwent tracheostomy and PEG tube placement yesterday. Chest x-ray reveals no new acute process. Improved bilateral interstitial edema noted. Patient to be started on oral [place] today. She continues on IV Zosyn. Her labs reveal a white blood cell count of 16.6, hemoglobin 8.7, sodium of 140, potassium 3.6, creatinine 0.64. 11/17/2024 Patient evaluated in the ICU. Remains on the mechanical ventilator intubated. Awake alert and following some commands. Status post tracheostomy and PEG tube placement. Labs today 15.9, hgb 8.6, sodium 139, potassium 3.2, BUN 18, creatin ine 0.67. 11/18/2024 Patient evaluated today in the ICU and remains on the mechanical ventilator i ntubated. Patient is awake alert following simple commands. Diffusely weak. She is currently off sedation. Patient is status post tracheostomy and PEG tube placement. Continues on enteral feedings. Patient will continue on Vital 1.2 with goal of 50 mls/hr. 11/19/2024 Patient evaluated in the intensive care unit she is status post trach and PEG tube placement. She is off the propofol awake alert and oriented she states that she is scared in regards to the tracheostomy tube. Her chest x-ray today reveals persistent small left pleural effusion with associated basilar infiltrate and or atelectasis. Her labs reveal a white blood cell count of 14.8, hemoglobin 8.6, sodium of 141 potassium of 3.4, BUN of 25 creatinine of 0.67. 11/20/2024 Patient is evaluated in follow-up in intensive care unit. Patient is status post tracheostomy and PEG tube placement. Patient has been on the trach collar overnight and doing well. She is off the mechanical ventilator at this time. Patient is awake alert oriented following commands. Patient will be moved out of the intensive care unit when a bed is available. Her chest x-ray today reveals persistent small pleural effusion with associated bibasilar infiltrate and/or atelectasis. labs today reveal a white blood cell count of 14.2, hemoglobin 8.4, sodium of 142, potassium 3.6, BUN of 25 creatinine 0.61 magnesium level of 1.9. 11/21/2024 Patient is seen in follow-up today continues in the ICU on tracheostomy and PEG tube. Patient is continued on trach collar with pulmonary trash collector following and working on transferring to [facility] for continued ongoing care. White count remains elevated and patient is maintained on antibiotics with infectious disease following. Case management following as patient requires insurance authorization which is currently pending. Possible discharge planning in the next 24 hours to LTAC 11/22/2024 Patient is seen in follow-up in the ICU although is a downgrade once a bed becomes available on 3 S. Insurance authorization was denied for LTAC requesting a peer to peer. Attempted to do peer to peer with multiple phone calls and insurance company reporting there was no reference number and unable to locate the denial. Will attempt to call back again with the reference number that was provided to me from the third insurance call. Patient is afebrile maintained on tracheostomy with pulmonary and infectious disease following. Orthopedics following with no plans of further surgical intervention recommending outpatient follow-up. Patient continues on trach collar with 28% FiO2. Patient needs frequent suctioning and cannulation and currently has a #6 Shiley nonfenestrated. Patient maintained on aspiration precautions with PEG tube and tolerating tube feeds thus far. Patient is significantly weak and will need extensive physical therapy on discharge. Patient was independent and ambulatory prior to this hospitalization. Review of systems: Constitutional: No reports of fatigue, fever, or chills Cardiovascular: No reports of chest pain or palpitations Respiratory: reports of shortness of breath and discomfort with tracheostomy GI: No reports of nausea, vomiting, or diarrhea : No reports of dysuria or retention Neurovascular: reports of generalized weakness All medications have been reviewed Physical Examination GENERAL EXAM: This is a 54-year-old female, currently on tracheostomy with an FiO2 of 28%, well-developed, elderly appearing, thin built HEAD: Normocephalic. Normal reaction of pupils, equal size. THROAT: No erythema or exudates. NECK: No masses, no JVD. CHEST: No chest wall deformity. LUNGS: Diminished breath sounds bilaterally with some scattered rhonchi and bronchial congestion noted CVS: S1 and S2 muffled ABDOMEN: No hepatosplenomegaly, normal bowel sounds, no guarding or rigidity. Peg tube in place. SPINE: No scoliosis or deformity. Surgical dressing dry and intact. SKIN: No rashes CENTRAL NERVOUS SYSTEM: Sedated, tone is normal in all 4 extremities. EXTREMITIES: There is no peripheral edema. No clubbing, no cyanosis. Peripheral pulses are intact. Assessment: -Altered mental status from acute toxic and metabolic encephalopathy with episode of unresponsive, likely related to narcotics versus sepsis -Unable to rule out aspiration pneumonia -Pseudomonas pneumonia Healthcare acquired with septic shock POA -Acute hypoxic/hypercapnic respiratory failure; as indicated above; patient remains on mechanical ventilation, status post tracheostomy and PEG tube placement -Surgical site infection/wound dehiscence and Patient is status post surgery on 10/27/2024 for open treatment of a T8 fracture, irrigation and excisional debrid ement of thoracic spine wound measuring 10 x 7 x 4 cm, posterior lateral instrumented fusion of T7-T11 and cement augmentation of T8-T10 vertebral bodies; Orthopedic surgery consulted and felt the wound was noninfectious and healing well. -Leukocytosis/sepsis; continue with IV antibiotics as indicated above; patient has been pancultured, improving and trending down -Hypernatremia, improving -History of hypertension; propranolol 20 mg twice daily has been resumed; prazosin 2 mg twice daily on hold -Macroctyic anemia -Hyperlipidemia; currently not on any statin therapy -Hypothyroidism; levothyroxine 88 mcg daily -History of CAD -Chronic heart failure with preserved EF with no acute exacerbation -History of COPD/Asthma -PTSD/Bipolar/Borderline personality -Chronic nicotine use -Polysubstance use -Rectal prolapse -Hx seizure disorder -Gastroesophageal reflux DVT prophylaxis; SCDs/subcu heparin CODE STATUS; full code Plan: -Patient was intubated and mechanically ventilated in ED. patient has been extubated and is currently on a trach collar with an FiO2 of 28% and tolerating trach collar off of the vent. Insurance was denied for LTAC and case management following as insurance requested a peer to peer. Attempted to call 3 times with no reference number available although was given on the third call and instructed to call back again to attempt a peer to peer. Discussed the case with case management in the event peer to peer is denied as well as patient is significantly weak and was ambulatory and independent prior to this hospitalization and needs continued PT/OT therapy for strength and mobility along with frequent suctioning and cannulation of the tracheostomy site. -Urine drug screen positive for opiates, barbiturates, tricyclic antidepressants, benzodiazepines and marijuana concern for polysubstance use, narcotics being held currently -Blood culture remain negative so far -Sputum culture revealing pseudomonas aeruginosa. x2 -Critical care service on board and has been downgraded from the ICU currently awaiting a bed on stepdown -Patient continues on IV antibiotics in the form of IV zosyn. Infectious diseases following -Patient has been transition to oral prednisone -Residuals are improved and at about 100 mls and patient continues on enteral feedings at goal and tolerating, recommend aspiration precautions and head of the bed elevated 35 to 45 degrees at all times -Antiseizure medications have been resumed; we do not carry briviact so patient was transitioned over to keppra. -Monitor electrolytes and renal function -Patient is status post 1 unit of packed red blood cells this admission with improvement in her hemoglobin -Status post PEG/Trach continue on enteral feedings. -Plan is for LTAC and/or ECF that can accommodate respiratory care with tracheostomy on discharge. Requiring insurance authorization which was denied for LTAC requesting a peer to peer which is attempting to be done Due to multiple complex medical issues, overall prognosis is guarded The impression and plan of care has been dictated by Kristina Wells, Nurse Practitioner as directed. Dr. Dick MD I have performed a history and physical examination and medical decision making of this patient, discussed the same with the dictator, and agree with the dictators assessment and plan as written, documented as a scribe. Based on total visit time, I have performed more than 50% of this visit. Objective - Vital Signs Vital signs: Vital Signs Temp 97.3 F L 11/23/24 04:00 Pulse 91 11/23/24 04:00 Resp 21 11/23/24 04:00 BP 158/97 11/23/24 04:00 Pulse Ox 96 11/23/24 04:00 FiO2 28 11/23/24 04:00 Intake & Output 11/22/24 11/22/24 11/23/24 06:59 18:59 06:59 Intake Total 624 670 Output Total 414 310 8203 Balance 74 -30 -1250 Weight 52.2 kg 52.2 kg Intake: IV 164 360 0.9 @ KVO 40 50 Invasive Line 10 10 Piperacillin-Tazobactam 3 100 100 .375 gm In Sodium Chloride 0.9% 100 ml @ 25 mls/hr IVPB Q8HR [facility] Rx# :[id number] Potassium Chloride 10 meq 200 In Water For Injection 1 100ml.bag @ 100 mls/hr IVPB Q1H [facility] Rx#: [id number] pressure bag 24 Tube Feeding 400 250 Other 60 60 Output: Urine 381 638 5719 Other: Voiding Method Indwelling Catheter Indwelling Catheter Indwelling Catheter # Bowel Movements 1 1 ABP, PAP, CO, CI - Last Documented Arterial Blood Pressure 158/76 - Labs CBC & Chem 7: 11/22/24 05:35 11/22/24 05:35 Labs: Abnormal Lab Results - Last 24 Hours (Table) 11/22/24 11/22/24 11/22/24 Range/Units 05:35 05:35 06:59 WBC 13.2 H (3.8-10.6) k/uL RBC 3.15 L (3.80-5.40) m/uL Hgb 9.1 L (11.4-16.0) gm/dL Hct 31.3 L (34.0-46.0) % MCHC 29.0 L (31.0-37.0) g/dL RDW 18.0 H (11.5-15.5) % Plt Count 530 H (150-450) k/uL Neutrophils # 11.3 H (1.3-7.7) k/uL Lymphocytes # 0.9 L (1.0-4.8) k/uL BUN 26 H (7-17) mg/dL Glucose 124 H (74-99) mg/dL POC Glucose (mg/dL) 122 H (70-110) mg/dL 11/22/24 11/23/24 Range/Units 17:59 06:13 WBC (3.8-10.6) k/uL RBC (3.80-5.40) m/uL Hgb (11.4-16.0) gm/dL Hct (34.0-46.0) % MCHC (31.0-37.0) g/dL RDW (11.5-15.5) % Plt Count (150-450) k/uL Neutrophils # (1.3-7.7) k/uL Lymphocytes # (1.0-4.8) k/uL BUN (7-17) mg/dL Glucose (74-99) mg/dL POC Glucose (mg/dL) 124 H 126 H (70-110) mg/dL
[2024-11-23 06:51] LABS: Anisocytosis Slight; Basophils % (A) 0 %; Eosinophils # (A) 0.4 k/uL (0-0.7); Eosinophils % (A) 3 %; HCT 27.3 % (34.0-46.0); HGB 8.3 gm/dL (11.4-16.0); Hypochromasia Marked; Lymphocytes # (A) 0.9 k/uL (1.0-4.8); Lymphocytes % (A) 7 %; MCH 29.6 pg (25.0-35.0); MCHC 30.6 g/dL (31.0-37.0); MCV 96.5 fL (80.0-100.0); Macrocytosis Slight; Mean Platelet Volume 7.4; Monocytes # (A) 0.5 k/uL (0-1.0); Monocytes % (A) 4 %; Neutrophils # (A) 12.1 k/uL (1.3-7.7); Neutrophils % (A) 86 %; Platelet Count 449 k/uL (150-450); RBC 2.82 m/uL (3.80-5.40); RDW 17.9 % (11.5-15.5); WBC 14.1 k/uL (3.8-10.6)
[2024-11-23 07:00] LABS: African American GFR (CKD) >90 (>60 ml/min/1.73 sqM); Anion Gap 6 mmol/L; Blood Urea Nitrogen 21 mg/dL (7-17); Calcium 9.1 mg/dL (8.4-10.2); Carbon Dioxide 27 mmol/L (22-30); Chloride 107 mmol/L (98-107); Glucose 116 mg/dL (74-99); Non-African American GFR(CKD) >90 (>60 ml/min/1.73 sqM); Potassium 3.6 mmol/L (3.5-5.1); Sodium 140 mmol/L (137-145)
[2024-11-23] MEDS: predniSONE 20 MG TAB PO SCH (10:00)
[2024-11-23 12:01] LABS: Glucose,Whole Blood 111 mg/dL (70-110)
--- NOTE | 2024-11-23 12:54 | P.PN ---
Subjective Progress Note Date: 11/23/24 The patient is seen today November 23, 2024 in follow-up on the selective care unit. She was transferred out of the intensive care unit yesterday. She is awake and alert in no acute distress. She is maintaining good O2 saturations in the 90s on 28% FiO2 via trach collar. Her tracheotomy tube is a #6 Shiley, nonfenestrated, the cuff is deflated. She is tolerating this very well. She is afebrile. Hemodynamically stable. White count 14.1. Hemoglobin 8.3. Platelets 449. Sodium 140. Potassium 3.6. Bicarb 27. BUN 21. Creatinine 0.59. Glucose 116. She remains on DuoNeb inhalations, Pulmicort and Perforomist inhalations, prednisone taper. Remains on antibiotics in the form of Zosyn per ID service. Lovenox for DVT prophylaxis. She is being nourished with vital HP at 50 cc/h. Objective - Vital Signs Vital signs: Vital Signs Temp 98.3 F 11/23/24 12:10 Pulse 89 11/23/24 12:10 Resp 20 11/23/24 12:10 BP 157/84 11/23/24 12:10 Pulse Ox 97 11/23/24 12:10 FiO2 28 11/23/24 12:10 Intake & Output 11/22/24 11/23/24 11/23/24 18:59 06:59 18:59 Intake Total 670 10 Output Total 700 1250 1000 Balance -30 -1250 -990 Weight 52.2 kg 55 kg Intake: IV 360 10 0.9 @ KVO 50 Invasive Line 10 10 10 Piperacillin-Tazobactam 3 100 .375 gm In Sodium Chloride 0.9% 100 ml @ 25 mls/hr IVPB Q8HR [facility] Rx# :[id number] Potassium Chloride 10 meq 200 In Water For Injection 1 100ml.bag @ 100 mls/hr IVPB Q1H [facility] Rx#: [id number] Tube Feeding 250 Other 60 Output: Urine 700 1250 1000 Other: Voiding Method Indwelling Catheter Indwelling Catheter Indwelling Catheter # Bowel Movements 1 1 1 ABP, PAP, CO, CI - Last Documented Arterial Blood Pressure 158/76 - Exam GENERAL EXAM: Awake, alert 54-year-old female on 28% FiO2 via trach collar, in no apparent distress. HEAD: Normocephalic. EYES: Normal reaction of pupils, equal size. NOSE: Clear with pink turbinates. THROAT: Tracheostomy tube secured in place. No erythema or exudates. NECK: No masses, no JVD. CHEST: No chest wall deformity. LUNGS: Equal air entry with no crackles, wheeze, rhonchi or dullness. CVS: S1 and S2 normal with no audible murmur, regular rhythm. ABDOMEN: No hepatosplenomegaly, normal bowel sounds, no guarding or rigidity. SPINE: No scoliosis or deformity SKIN: No rashes CENTRAL NERVOUS SYSTEM: No noted focal deficit, tone is normal in all 4 extremities. EXTREMITIES: There is no peripheral edema. No clubbing, no cyanosis. Peripheral pulses are intact. - Labs CBC & Chem 7: 11/23/24 06:11 11/23/24 06:11 Labs: Abnormal Lab Results - Last 24 Hours (Table) 11/22/24 11/23/24 11/23/24 Range/Units 17:59 06:11 06:11 WBC 14.1 H (3.8-10.6) k/uL RBC 2.82 L (3.80-5.40) m/uL Hgb 8.3 L (11.4-16.0) gm/dL Hct 27.3 L (34.0-46.0) % MCHC 30.6 L (31.0-37.0) g/dL RDW 17.9 H (11.5-15.5) % Neutrophils # 12.1 H (1.3-7.7) k/uL Lymphocytes # 0.9 L (1.0-4.8) k/uL BUN 21 H (7-17) mg/dL Glucose 116 H (74-99) mg/dL POC Glucose (mg/dL) 124 H (70-110) mg/dL 11/23/24 11/23/24 Range/Units 06:13 12:00 WBC (3.8-10.6) k/uL RBC (3.80-5.40) m/uL Hgb (11.4-16.0) gm/dL Hct (34.0-46.0) % MCHC (31.0-37.0) g/dL RDW (11.5-15.5) % Neutrophils # (1.3-7.7) k/uL Lymphocytes # (1.0-4.8) k/uL BUN (7-17) mg/dL Glucose (74-99) mg/dL POC Glucose (mg/dL) 126 H 111 H (70-110) mg/dL Assessment and Plan Assessment: Altered mental status, obtunded requiring intubation and mechanical ventilatory support on November 06, 2024. Suspect secondary to narcotics. Urine drug screen positive for opiates, barbiturates, tricyclic antidepressants, benzodiazepines and marijuana. Subsequently had undergone tracheostomy and PEG tube placement on November 15, 2024. She has been off the mechanical ventilator since November 19, 2024 and transitioned to 28% FiO2 via trach collar Acute hypoxemic and hypercapnic respiratory failure secondary to above, positive sputum culture for Pseudomonas aeruginosa, currently on Zosyn Discharge from the hospital following surgery on 10/27/2024 for open treatment of a T8 fracture, irrigation and excisional debridement of thoracic spine wound measuring 10 x 7 x 4 cm, posterior lateral instrumented fusion of T7-T11 and cement augmentation of T8-T10 vertebral bodies. Chronic obstructive pulmonary disease/asthma, currently inactive and stable T2 vertebral fracture with revision of C2-T7 posterior lateral fusion on 09/09/2024 Surgical site infection and wound dehiscence, wound and blood cultures revealed no growth Acute leukocytosis, improved Macrocytic anemia Rectal prolapse with bleeding History of hypertension History of hyperlipidemia History of coronary artery disease History of heart failure with preserved ejection fraction History of gastroesophageal reflux disease History of seizure disorder History of hypothyroidism History of anxiety/depression/PTSD Plan: The patient was seen and evaluated Labs and medications reviewed Continue Zosyn per ID service Continue DuoNeb inhalations, prednisone Continue Pulmicort and Perforomist inhalations Lovenox for DVT prophylaxis Remains on vital HP at 50 mL/h for nutritional support Maintaining good O2 saturations in the 90s on 28% trach collar Awaiting transfer to [facility] specialty pending insurance authorization This patient was seen independently by the pulmonary nurse practitioner addressing pulmonary issues I have personally seen and examined the patient, performed the documentation and the assessment and plan as written. Number of minutes spent on the visit: 25 Dictation was produced using [employer] dictation software. Please excuse any grammatical, word or spelling errors.
--- NOTE | 2024-11-23 17:14 | P.PN ---
Subjective Progress Note Date: 11/23/24 Principal diagnosis: Reason for follow-up is pneumonia Patient is a 54-year-old female with a past medical history significant for COPD DVT hypertension hyperlipidemia who recently did have a cervical thoracic spine surgery revision for a nonhealing wound to the mid/upper back area patient cultures were negative has been brought to the hospital on the patient was found to be unresponsive requiring elevation and admission to the ICU Patient is status post tracheostomy and PEG tube placement completed on 11/15/2024. On today's evaluation that is 11/23/2024,the patient denies any fever or any chills, patient is breathing comfortably trach collar slightly more awake but not with good historian no acute has been reported. Patient white count is 14.1, creatinine 0.59 Objective - Vital Signs Vital signs: Vital Signs Temp 98.3 F 11/23/24 12:10 Pulse 89 11/23/24 12:10 Resp 20 11/23/24 12:10 BP 157/84 11/23/24 12:10 Pulse Ox 97 11/23/24 12:10 FiO2 28 11/23/24 12:10 Intake & Output 11/22/24 11/23/24 11/23/24 18:59 06:59 18:59 Intake Total 670 10 Output Total 700 1250 1000 Balance -30 -1250 -990 Weight 52.2 kg 55 kg Intake: IV 360 10 0.9 @ KVO 50 Invasive Line 10 10 10 Piperacillin-Tazobactam 3 100 .375 gm In Sodium Chloride 0.9% 100 ml @ 25 mls/hr IVPB Q8HR [facility] Rx# :[id number] Potassium Chloride 10 meq 200 In Water For Injection 1 100ml.bag @ 100 mls/hr IVPB Q1H [facility] Rx#: [id number] Tube Feeding 250 Other 60 Output: Urine 700 1250 1000 Other: Voiding Method Indwelling Catheter Indwelling Catheter Indwelling Catheter # Bowel Movements 1 1 1 ABP, PAP, CO, CI - Last Documented Arterial Blood Pressure 158/76 - Exam GENERAL DESCRIPTION: Middle-age female intubated through the trach RESPIRATORY SYSTEM: Unlabored breathing , decreased breath sounds at bases HEART: S1 S2 regular rate and rhythm , ABDOMEN: Soft , no tenderness EXTREMITIES: No edema feet - Labs CBC & Chem 7: 11/23/24 06:11 11/23/24 06:11 Labs: Abnormal Lab Results - Last 24 Hours (Table) 11/22/24 11/23/24 11/23/24 Range/Units 17:59 06:11 06:11 WBC 14.1 H (3.8-10.6) k/uL RBC 2.82 L (3.80-5.40) m/uL Hgb 8.3 L (11.4-16.0) gm/dL Hct 27.3 L (34.0-46.0) % MCHC 30.6 L (31.0-37.0) g/dL RDW 17.9 H (11.5-15.5) % Neutrophils # 12.1 H (1.3-7.7) k/uL Lymphocytes # 0.9 L (1.0-4.8) k/uL BUN 21 H (7-17) mg/dL Glucose 116 H (74-99) mg/dL POC Glucose (mg/dL) 124 H (70-110) mg/dL 11/23/24 11/23/24 Range/Units 06:13 12:00 WBC (3.8-10.6) k/uL RBC (3.80-5.40) m/uL Hgb (11.4-16.0) gm/dL Hct (34.0-46.0) % MCHC (31.0-37.0) g/dL RDW (11.5-15.5) % Neutrophils # (1.3-7.7) k/uL Lymphocytes # (1.0-4.8) k/uL BUN (7-17) mg/dL Glucose (74-99) mg/dL POC Glucose (mg/dL) 126 H 111 H (70-110) mg/dL Assessment and Plan (1) Pneumonia Current Visit: Yes Status: Acute Code(s): J18.9 - PNEUMONIA, UNSPECIFIED ORGANISM SNOMED Code(s): 433408856 (2) Abnormal CT scan, chest Current Visit: Yes Status: Acute Code(s): R93.89 - ABNORMAL FINDINGS ON DX IMAGING OF OTH BODY STRUCTURES SNOMED Code(s): 32035452086601250 (3) Leukocytosis Current Visit: No Status: Acute Code(s): D72.829 - ELEVATED WHITE BLOOD CELL COUNT, UNSPECIFIED SNOMED Code(s): 734142192 Plan: 1patient presented to hospital after the patient was found to be unresponsive at home concerning for possible drug overdose also noted to have significant finding on a chest x-ray and the CT concerning for possible pneumonia question of aspiration etiology in this patient has been around the hospital concerning for possible resistant gram-positive as well as gram-negative pathogen, the thoracic or cervical incision currently looks clean without cellulitis or any drainage 2-patient did have Pseudomonas aeruginosa in the sputum concerning for pneumonia possible aspiration, 3patient is afebrile and the patient has received adequate Zosyn during this hospital stay and may not need antibiotic on discharge Dictation was produced using [employer] dictation software. please excuse any grammatical, word or spelling errors. Time with Patient: Less than 30
[2024-11-23 18:02] LABS: Glucose,Whole Blood 129 mg/dL (70-110)
[2024-11-23 23:56] LABS: Glucose,Whole Blood 104 mg/dL (70-110)
[2024-11-24 05:59] LABS: Glucose,Whole Blood 122 mg/dL (70-110)
--- NOTE | 2024-11-24 06:37 | P.PN ---
Subjective Progress Note Date: 11/23/24 Patient is evaluated today in follow up in the intensive care unit. Patient remains intubated on the mechanical ventilator with PEEP of 5 and FiO2 of 40%. Patient remains sedated. LFTs remain elevated, white blood cell count up to 38. Blood culture pending. Patient continues on IV Vancomycin and IV cefepime. ID following. Chest xray today reveals stable upper lobe interstitial opacities. Spinal surgery evaluated the patient felt the wound was noninfectious and healing well. Patients heart rate has been in the 120s was resumed on home medication of propanolol and has had improvement in the heart rate down to the 80s this afternoon. 11/08/2024 Patient is evaluated today in follow up in the ICU. Remains intubated and sedated on the mechanical ventilator with settings at PEEP of 5 and 40% FiO2. C hest xray today reveals interstitial opacities correlating for atypical pneumonia. There is extensive fixation hardware throughout the spine. White blood cell count of 18.7, hgb 7.0, MCV 105.6. Magnesium 1.2, potassium 3.3. Remains on IV cefepime, IV vancomycin. Has been started on systemic steroids. Patient with low grade temp of 99.8 today. Blood pressure low/normal. 11/09/2024 Patient is evaluated in the Intensive care unit, family at the bedside. Patient remains on the mechanical ventilator with PEEP of 5, FiO2 of 40%. Not ready for weaning today. Chest xray reveals interstitial opacities of the lungs correlate for atypical pneumonia. Sputum positive for pseudomonas. Patient remains on IV Cefepime. Also on IV solumedrol. Patient is sedated with propofol. Normal saline is running at 75 mls/hr. White blood cell count 17.9, hgb 8.1. Sodium 145, potassium 4.1, BUN 23, creatinine 0.67. Patient with low grade temp 99 axillary. 11/10/2024 Patient evaluated today in the intensive care unit. She remains sedated and intubated on mechanical ventilator settings of PEEP of 5 with FiO2 40%. She is awake and alert although her eyes are not tracking. She does remain on propofol. Chest x-ray today reveals interstitial opacities of the lungs are unchanged. Sputum culture shows Pseudomonas x 2. Her labs today reveal a white blood cell count of 18.2, hemoglobin 8.6, platelet count of 625, sodium of 145, potassium 3.8, BUN of 26, creatinine of 0.73, magnesium 2.1. Her blood glucose is controlled. She is having some residuals with the enteral feedings per the nurse they have been decreased to 20 mL/h and will monitor the residuals closely. Patient continues on IV cefepime IV Solu-Medrol. She is sedated with IV propofol she is on normal saline at 75 mL/h. Pulmonary is considering this patient for tracheostomy and PEG tube placement 11/11/2024 Patient evaluated in the ICU patient is unable to be weaned and continues to become agitated when weaning off the propofol. Residuals are better today and tube feeds up to 30 mls/hr and she is having bowel movements. Antibiotics have been transitioned to IV zosyn. ID following closely. Labs today reveal white blood cell count 19.2, hgb 8.3, sodium 144, potassium 4.0, BUN 27, creatinine 0.66. Chest xray today reveals stable findings. 11/14/2024 Patient is evaluated today in the intensive care unit. No family able to bring patients briviact up to the hospital so she has been started on oral keppra. Continues to be sedated and intubated on the mechanical ventilator. Chest xray today reveals no new acute pulmonary process. Hemoglobin 6.4 today and patient scheduled to receive 1 unit of PRBC. White blood cell count down to 12.7. Sodium 147, potassium 3.3., BUN 26, creatinine 0.69. General surgery was consulted for PEG/Trach. 11/15/2024 Patient is evaluated in follow-up remains in the ICU she is sedated and intubat ed; on the mechanical ventilator with an FiO2 of 40% PEEP of 5. Patient will be going for trach and PEG tube placement. Chest x-ray today reveals no acute new pulmonary process. White blood cell count is 21.9, hemoglobin 8.7, sodium of 147 potassium 3.8, BUN 22 creatinine 0.64 magnesium 1.9. 11/16/2024 Patient is evaluated in follow-up remains in the intensive care unit. Patient is currently sedated with propofol she is currently intubated on mechanical ventilator with a FiO2 of 40% and a PEEP of 5. Patient underwent tracheostomy and PEG tube placement yesterday. Chest x-ray reveals no new acute process. Improved bilateral interstitial edema noted. Patient to be started on oral [place] today. She continues on IV Zosyn. Her labs reveal a white blood cell count of 16.6, hemoglobin 8.7, sodium of 140, potassium 3.6, creatinine 0.64. 11/17/2024 Patient evaluated in the ICU. Remains on the mechanical ventilator intubated. Awake alert and following some commands. Status post tracheostomy and PEG tube placement. Labs today 15.9, hgb 8.6, sodium 139, potassium 3.2, BUN 18, creatin ine 0.67. 11/18/2024 Patient evaluated today in the ICU and remains on the mechanical ventilator i ntubated. Patient is awake alert following simple commands. Diffusely weak. She is currently off sedation. Patient is status post tracheostomy and PEG tube placement. Continues on enteral feedings. Patient will continue on Vital 1.2 with goal of 50 mls/hr. 11/19/2024 Patient evaluated in the intensive care unit she is status post trach and PEG tube placement. She is off the propofol awake alert and oriented she states that she is scared in regards to the tracheostomy tube. Her chest x-ray today reveals persistent small left pleural effusion with associated basilar infiltrate and or atelectasis. Her labs reveal a white blood cell count of 14.8, hemoglobin 8.6, sodium of 141 potassium of 3.4, BUN of 25 creatinine of 0.67. 11/20/2024 Patient is evaluated in follow-up in intensive care unit. Patient is status post tracheostomy and PEG tube placement. Patient has been on the trach collar overnight and doing well. She is off the mechanical ventilator at this time. Patient is awake alert oriented following commands. Patient will be moved out of the intensive care unit when a bed is available. Her chest x-ray today reveals persistent small pleural effusion with associated bibasilar infiltrate and/or atelectasis. labs today reveal a white blood cell count of 14.2, hemoglobin 8.4, sodium of 142, potassium 3.6, BUN of 25 creatinine 0.61 magnesium level of 1.9. 11/21/2024 Patient is seen in follow-up today continues in the ICU on tracheostomy and PEG tube. Patient is continued on trach collar with pulmonary vice president of instruction following and working on transferring [facility] for continued ongoing care. White count remains elevated and patient is maintained on antibiotics with infectious disease following. Case management following as patient requires insurance authorization which is currently pending. Possible discharge planning in the next 24 hours to LTAC 11/22/2024 Patient is seen in follow-up in the ICU although is a downgrade once a bed becomes available on 3 S. Insurance authorization was denied for LTAC requesting a peer to peer. Attempted to do peer to peer with multiple phone calls and insurance company reporting there was no reference number and unable to locate the denial. Will attempt to call back again with the reference number that was provided to me from the third insurance call. Patient is afebrile maintained on tracheostomy with pulmonary and infectious disease following. Orthopedics following with no plans of further surgical intervention recommending outpatient follow-up. Patient continues on trach collar with 28% FiO2. Patient needs frequent suctioning and cannulation and currently has a #6 Shiley nonfenestrated. Patient maintained on aspiration precautions with PEG tube and tolerating tube feeds thus far. Patient is significantly weak and will need extensive physical therapy on discharge. Patient was independent and ambulatory prior to this hospitalization. 11/23/2024 Patient is seen in follow-up today maintained on antibiotics with infectious disease following. Orthopedics recommending outpatient follow-up and medically stable with no further plans of surgical intervention at this time. Patient initially planning on LTAC for continued frequent suctioning and decannulation as patient did require tracheostomy and PEG tube placement. Spoe-cr-rcxo was attempted although denied recommending staying hospitalized until decannulated or possible [place] [facility]. Patient with case management following making other referrals to [facility] that provide tracheostomy care services. Patient will require insurance authorization for [place] [facility] as well and will be submitted per case management once there is an accepting facility. Patient is afebrile and white count is trending down currently at 14. Continue with aspiration precautions and monitoring PEG tube residuals closely. Review of systems: Constitutional: No reports of fatigue, fever, or chills Cardiovascular: No reports of chest pain or palpitations Respiratory: No reports of worsening shortness of breath, reports discomfort with tracheostomy GI: No reports of nausea, vomiting, or diarrhea : No reports of dysuria or retention Neurovascular: reports of generalized weakness All medications have been reviewed Physical Examination GENERAL EXAM: This is a 54-year-old female, currently on tracheostomy with an FiO2 of 28% and 5 L of oxygen, well-developed, elderly appearing, thin built HEAD: Normocephalic. Normal reaction of pupils, equal size. Tracheostomy noted with no drainage THROAT: No erythema or exudates. NECK: No masses, no JVD. CHEST: No chest wall deformity. LUNGS: Diminished breath sounds bilaterally with some scattered rhonchi and bronchial congestion noted CVS: S1 and S2 muffled ABDOMEN: No hepatosplenomegaly, normal bowel sounds, no guarding or rigidity. Peg tube in place. SPINE: No scoliosis or deformity. Surgical dressing dry and intact. SKIN: No rashes CENTRAL NERVOUS SYSTEM: Sedated, tone is normal in all 4 extremities. EXTREMITIES: There is no peripheral edema. No clubbing, no cyanosis. Peripheral pulses are intact. Assessment: -Altered mental status from acute toxic and metabolic encephalopathy with episode of unresponsive, likely related to narcotics versus sepsis, improved and at baseline -Unable to rule out aspiration pneumonia -Pseudomonas pneumonia Healthcare acquired with septic shock POA -Acute hypoxic/hypercapnic respiratory failure; as indicated above; patient remains on tracheostomy and PEG tube placement -Surgical site infection/wound dehiscence and Patient is status post surgery on 10/27/2024 for open treatment of a T8 fracture, irrigation and excisional debridement of thoracic spine wound measuring 10 x 7 x 4 cm, posterior lateral instrumented fusion of T7-T11 and cement augmentation of T8-T10 vertebral bodies; Orthopedic surgery consulted and felt the wound was noninfectious and healing well. -Leukocytosis/sepsis; continue with IV antibiotics as indicated above; patient has been pancultured, improving and trending down -Hypernatremia, improving -History of hypertension; propranolol 20 mg twice daily has been resumed; prazosin 2 mg twice daily on hold -Macroctyic anemia -Hyperlipidemia; currently not on any statin therapy -Hypothyroidism; levothyroxine 88 mcg daily -History of CAD -Chronic heart failure with preserved EF with no acute exacerbation -History of COPD/Asthma -PTSD/Bipolar/Borderline personality -Chronic nicotine use -Polysubstance use -Rectal prolapse -Hx seizure disorder -Gastroesophageal reflux DVT prophylaxis; SCDs/subcu heparin CODE STATUS; full code Plan: -Patient was intubated and mechanically ventilated in ED. patient has been extubated and is currently on a trach collar with an FiO2 of 28% and tolerating trach collar off of the vent. Insurance was denied for LTAC and case management following as insurance requested a peer to peer. Attempted peer to peer although was denied reporting she does not meet criteria for [facility] admission recommending possible ECF with tracheostomy services. Case management is following and placing referrals which are pending -Urine drug screen positive for opiates, barbiturates, tricyclic antidepressants, benzodiazepines and marijuana concern for polysubstance use, narcotics being held currently -Blood culture remain negative so far -Sputum culture revealing pseudomonas aeruginosa. x2 -Critical care service on board and has been downgraded from the ICU currently awaiting a bed on stepdown -Patient continues on IV antibiotics in the form of IV zosyn. Infectious d iseases following and will discuss further regarding discharge planning and antibiotics on discharge -Patient has been transitioned to oral prednisone -Residuals are improved and at about 100 mls and patient continues on enteral feedings at goal and tolerating, recommend aspiration precautions and head of the bed elevated 35 to 45 degrees at all times -Antiseizure medications have been resumed; we do not carry briviact so patient was transitioned over to keppra. -Monitor electrolytes and renal function -Patient is status post 1 unit of packed red blood cells this admission with improvement in her hemoglobin -Status post PEG/Trach continue on enteral feedings. -Plan is for ECF that can accommodate respiratory care with tracheostomy on discharge. Due to multiple complex medical issues, overall prognosis is guarded The impression and plan of care has been dictated by Kristina Wells, Nurse Practitioner as directed. Dr. Dick MD I have performed a history and physical examination and medical decision making of this patient, discussed the same with the dictator, and agree with the dictators assessment and plan as written, documented as a scribe. Based on total visit time, I have performed more than 50% of this visit. Objective - Vital Signs Vital signs: Vital Signs Temp 98.3 F 11/23/24 12:10 Pulse 89 11/23/24 12:10 Resp 20 11/23/24 12:10 BP 157/84 11/23/24 12:10 Pulse Ox 97 11/23/24 12:10 FiO2 28 11/23/24 12:10 Intake & Output 11/22/24 11/23/24 11/23/24 18:59 06:59 18:59 Intake Total 670 10 Output Total 700 1250 1000 Balance -30 -1250 -990 Weight 52.2 kg 55 kg Intake: IV 360 10 0.9 @ KVO 50 Invasive Line 10 10 10 Piperacillin-Tazobactam 3 100 .375 gm In Sodium Chloride 0.9% 100 ml @ 25 mls/hr IVPB Q8HR [facility]IVI Rx# :[id number] Potassium Chloride 10 meq 200 In Water For Injection 1 100ml.bag @ 100 mls/hr IVPB Q1H [facility]I Rx#: [id number] Tube Feeding 250 Other 60 Output: Urine 700 1250 1000 Other: Voiding Method Indwelling Catheter Indwelling Catheter Indwelling Catheter # Bowel Movements 1 1 1 ABP, PAP, CO, CI - Last Documented Arterial Blood Pressure 158/76 - Labs CBC & Chem 7: 11/23/24 06:11 11/23/24 06:11 Labs: Abnormal Lab Results - Last 24 Hours (Table) 11/22/24 11/23/24 11/23/24 Range/Units 17:59 06:11 06:11 WBC 14.1 H (3.8-10.6) k/uL RBC 2.82 L (3.80-5.40) m/uL Hgb 8.3 L (11.4-16.0) gm/dL Hct 27.3 L (34.0-46.0) % MCHC 30.6 L (31.0-37.0) g/dL RDW 17.9 H (11.5-15.5) % Neutrophils # 12.1 H (1.3-7.7) k/uL Lymphocytes # 0.9 L (1.0-4.8) k/uL BUN 21 H (7-17) mg/dL Glucose 116 H (74-99) mg/dL POC Glucose (mg/dL) 124 H (70-110) mg/dL 11/23/24 11/23/24 Range/Units 06:13 12:00 WBC (3.8-10.6) k/uL RBC (3.80-5.40) m/uL Hgb (11.4-16.0) gm/dL Hct (34.0-46.0) % MCHC (31.0-37.0) g/dL RDW (11.5-15.5) % Neutrophils # (1.3-7.7) k/uL Lymphocytes # (1.0-4.8) k/uL BUN (7-17) mg/dL Glucose (74-99) mg/dL POC Glucose (mg/dL) 126 H 111 H (70-110) mg/dL
[2024-11-24 07:22] LABS: Anisocytosis Slight; Basophils % (A) 0 %; Eosinophils # (A) 0.3 k/uL (0-0.7); Eosinophils % (A) 2 %; HCT 27.1 % (34.0-46.0); HGB 8.4 gm/dL (11.4-16.0); Hypochromasia Marked; Lymphocytes % (A) 7 %; MCV 96.8 fL (80.0-100.0); Macrocytosis Slight; Mean Platelet Volume 7.4; Monocytes # (A) 0.5 k/uL (0-1.0); Monocytes % (A) 3 %; Neutrophils # (A) 12.1 k/uL (1.3-7.7); Neutrophils % (A) 86 %; Platelet Count 415 k/uL (150-450); RDW 18.1 % (11.5-15.5); WBC 14.1 k/uL (3.8-10.6)
[2024-11-24 07:32] LABS: African American GFR (CKD) >90 (>60 ml/min/1.73 sqM); Anion Gap 6 mmol/L; Blood Urea Nitrogen 20 mg/dL (7-17); Calcium 8.8 mg/dL (8.4-10.2); Carbon Dioxide 26 mmol/L (22-30); Chloride 110 mmol/L (98-107); Glucose 108 mg/dL (74-99); Non-African American GFR(CKD) >90 (>60 ml/min/1.73 sqM); Potassium 3.3 mmol/L (3.5-5.1); Sodium 142 mmol/L (137-145)
--- NOTE | 2024-11-24 11:17 | P.PN ---
Subjective Progress Note Date: 11/24/24 The patient is seen today November 23, 2024 in follow-up on the selective care unit. She was transferred out of the intensive care unit yesterday. She is awake and alert in no acute distress. She is maintaining good O2 saturations in the 90s on 28% FiO2 via trach collar. Her tracheotomy tube is a #6 Shiley, nonfenestrated, the cuff is deflated. She is tolerating this very well. She is afebrile. Hemodynamically stable. White count 14.1. Hemoglobin 8.3. Platelets 449. Sodium 140. Potassium 3.6. Bicarb 27. BUN 21. Creatinine 0.59. Glucose 116. She remains on DuoNeb inhalations, Pulmicort and Perforomist inhalations, prednisone taper. Remains on antibiotics in the form of Zosyn per ID service. Lovenox for DVT prophylaxis. She is being nourished with vital HP at 50 cc/h. The patient is seen today November 24, 2024 in follow-up on the selective care unit. She is awake and alert in no acute distress. Resting comfortably in bed. She is maintaining good O2 saturations in the upper 90s on 28% FiO2 via trach collar. She is afebrile. Hemodynamically stable. She has received 1 unit of packed red blood cells this admission. Current hemoglobin 8.4. Platelets 415. White count 14.1. Sodium 142. Potassium 3.3. Bicarb 26. BUN 20. Creatinine 0.59. Glucose 108.` She remains on Zosyn for her Pseudomonas lung infection. Continued on DuoNeb inhalations, Pulmicort and Perforomist inhalations, prednisone. Lovenox for DVT prophylaxis. She remains on vital HP at 50 cc/h for nourishment. Objective - Vital Signs Vital signs: Vital Signs Temp 98.0 F 11/24/24 09:19 Pulse 86 11/24/24 10:54 Resp 18 11/24/24 09:19 BP 153/88 11/24/24 09:19 Pulse Ox 98 11/24/24 10:54 FiO2 28 11/24/24 10:54 Intake & Output 11/23/24 11/24/24 11/24/24 18:59 06:59 18:59 Intake Total 10 Output Total 1000 1275 Balance -990 -1275 Weight 54.5 kg Intake: IV 10 Invasive Line 10 10 Output: Urine 1000 1275 Other: Voiding Method Indwelling Catheter Indwelling Catheter Indwelling Catheter # Bowel Movements 1 ABP, PAP, CO, CI - Last Documented Arterial Blood Pressure 158/76 - Exam GENERAL EXAM: Awake, alert 54-year-old female, resting comfortably in bed, on 28% FiO2 via trach collar, in no apparent distress. HEAD: Normocephalic. EYES: Normal reaction of pupils, equal size. NOSE: Clear with pink turbinates. THROAT: Tracheostomy tube secured in place. No erythema or exudates. NECK: No masses, no JVD. CHEST: No chest wall deformity. LUNGS: Equal air entry with no crackles, wheeze, rhonchi or dullness. CVS: S1 and S2 normal with no audible murmur, regular rhythm. ABDOMEN: No hepatosplenomegaly, normal bowel sounds, no guarding or rigidity. SPINE: No scoliosis or deformity SKIN: No rashes CENTRAL NERVOUS SYSTEM: No noted focal deficit, tone is normal in all 4 extremities. EXTREMITIES: There is no peripheral edema. No clubbing, no cyanosis. Peripheral pulses are intact. - Labs CBC & Chem 7: 11/24/24 06:10 11/24/24 06:10 Labs: Abnormal Lab Results - Last 24 Hours (Table) 11/23/24 11/23/24 11/24/24 Range/Units 12:00 18:00 05:58 WBC (3.8-10.6) k/uL RBC (3.80-5.40) m/uL Hgb (11.4-16.0) gm/dL Hct (34.0-46.0) % RDW (11.5-15.5) % Neutrophils # (1.3-7.7) k/uL Potassium (3.5-5.1) mmol/L Chloride (98-107) mmol/L BUN (7-17) mg/dL Glucose (74-99) mg/dL POC Glucose (mg/dL) 111 H 129 H 122 H (70-110) mg/dL 11/24/24 11/24/24 Range/Units 06:10 06:10 WBC 14.1 H (3.8-10.6) k/uL RBC 2.80 L (3.80-5.40) m/uL Hgb 8.4 L (11.4-16.0) gm/dL Hct 27.1 L (34.0-46.0) % RDW 18.1 H (11.5-15.5) % Neutrophils # 12.1 H (1.3-7.7) k/uL Potassium 3.3 L (3.5-5.1) mmol/L Chloride 110 H (98-107) mmol/L BUN 20 H (7-17) mg/dL Glucose 108 H (74-99) mg/dL POC Glucose (mg/dL) (70-110) mg/dL Assessment and Plan Assessment: Altered mental status, obtunded requiring intubation and mechanical ventilatory support on November 06, 2024. Suspect secondary to narcotics. Urine drug screen positive for opiates, barbiturates, tricyclic antidepressants, benzodiazepines and marijuana. Subsequently had undergone tracheostomy and PEG tube placement on November 15, 2024. She has been off the mechanical ventilator since November 19, 2024 and transitioned to 28% FiO2 via trach collar Acute hypoxemic and hypercapnic respiratory failure secondary to above, positive sputum culture for Pseudomonas aeruginosa, currently on Zosyn Discharge from the hospital following surgery on 10/27/2024 for open treatment of a T8 fracture, irrigation and excisional debridement of thoracic spine wound measuring 10 x 7 x 4 cm, posterior lateral instrumented fusion of T7-T11 and cement augmentation of T8-T10 vertebral bodies. Chronic obstructive pulmonary disease/asthma, currently inactive and stable T2 vertebral fracture with revision of C2-T7 posterior lateral fusion on 09/09/2024 Surgical site infection and wound dehiscence, wound and blood cultures revealed no growth Acute leukocytosis, improved Macrocytic anemia Rectal prolapse with bleeding History of hypertension History of hyperlipidemia History of coronary artery disease History of heart failure with preserved ejection fraction History of gastroesophageal reflux disease History of seizure disorder History of hypothyroidism History of anxiety/depression/PTSD Plan: The patient was seen and evaluated Labs and medications reviewed Continue DuoNeb inhalations, prednisone Continue Pulmicort and Perforomist inhalations Lovenox for DVT prophylaxis Zosyn per ID service Vital HP for nutritional support Good O2 saturations in the 90s on 28% trach collar Insurance authorization denied for long-term acute care facility Case management working on placement at an extended care facility This patient was seen independently by the pulmonary nurse practitioner addressing pulmonary issues I have personally seen and examined the patient, performed the documentation and the assessment and plan as written. Number of minutes spent on the visit: 23 Dictation was produced using [employer] dictation software. Please excuse any grammatical, word or spelling errors.
[2024-11-24 12:14] LABS: Glucose,Whole Blood 135 mg/dL (70-110)
--- NOTE | 2024-11-24 15:31 | P.PN ---
Subjective Progress Note Date: 11/24/24 Principal diagnosis: Reason for follow-up is pneumonia Patient is a 54-year-old female with a past medical history significant for COPD DVT hypertension hyperlipidemia who recently did have a cervical thoracic spine surgery revision for a nonhealing wound to the mid/upper back area patient cultures were negative has been brought to the hospital on the patient was found to be unresponsive requiring elevation and admission to the ICU Patient is status post tracheostomy and PEG tube placement completed on 11/15/2024. On today's evaluation that is 11/24/2024,the patient remains to be afebrile, patient is on 5 L trach collar supplemental oxygen and breathing comfortably no chest pain or any worsening of abdominal pain or diarrhea. Patient white count is 14.1, creatinine 0.59 Objective - Vital Signs Vital signs: Vital Signs Temp 98.0 F 11/24/24 09:19 Pulse 83 11/24/24 11:28 Resp 18 11/24/24 11:28 BP 163/95 11/24/24 11:28 Pulse Ox 98 11/24/24 11:28 FiO2 28 11/24/24 10:54 Intake & Output 11/23/24 11/24/24 11/24/24 18:59 06:59 18:59 Intake Total 10 Output Total 1000 1275 750 Balance -990 -1275 -750 Weight 54.5 kg Intake: IV 10 Invasive Line 10 10 Output: Urine 1000 1275 750 Other: Voiding Method Indwelling Catheter Indwelling Catheter Indwelling Catheter # Bowel Movements 1 ABP, PAP, CO, CI - Last Documented Arterial Blood Pressure 158/76 - Exam GENERAL DESCRIPTION: Middle-age female lying in bed in no distress RESPIRATORY SYSTEM: Unlabored breathing , decreased breath sounds at bases HEART: S1 S2 regular rate and rhythm , ABDOMEN: Soft , no tenderness EXTREMITIES: No edema feet - Labs CBC & Chem 7: 11/24/24 06:10 11/24/24 06:10 Labs: Abnormal Lab Results - Last 24 Hours (Table) 11/23/24 11/24/24 11/24/24 Range/Units 18:00 05:58 06:10 WBC 14.1 H (3.8-10.6) k/uL RBC 2.80 L (3.80-5.40) m/uL Hgb 8.4 L (11.4-16.0) gm/dL Hct 27.1 L (34.0-46.0) % RDW 18.1 H (11.5-15.5) % Neutrophils # 12.1 H (1.3-7.7) k/uL Potassium (3.5-5.1) mmol/L Chloride (98-107) mmol/L BUN (7-17) mg/dL Glucose (74-99) mg/dL POC Glucose (mg/dL) 129 H 122 H (70-110) mg/dL 11/24/24 11/24/24 Range/Units 06:10 12:13 WBC (3.8-10.6) k/uL RBC (3.80-5.40) m/uL Hgb (11.4-16.0) gm/dL Hct (34.0-46.0) % RDW (11.5-15.5) % Neutrophils # (1.3-7.7) k/uL Potassium 3.3 L (3.5-5.1) mmol/L Chloride 110 H (98-107) mmol/L BUN 20 H (7-17) mg/dL Glucose 108 H (74-99) mg/dL POC Glucose (mg/dL) 135 H (70-110) mg/dL Assessment and Plan (1) Pneumonia Current Visit: Yes Status: Acute Code(s): J18.9 - PNEUMONIA, UNSPECIFIED ORGANISM SNOMED Code(s): 383635505 (2) Abnormal CT scan, chest Current Visit: Yes Status: Acute Code(s): R93.89 - ABNORMAL FINDINGS ON DX IMAGING OF OTH BODY STRUCTURES SNOMED Code(s): 04164868189006166 (3) Leukocytosis Current Visit: No Status: Acute Code(s): D72.829 - ELEVATED WHITE BLOOD CELL COUNT, UNSPECIFIED SNOMED Code(s): 590636357 Plan: 1patient presented to hospital after the patient was found to be unresponsive at home concerning for possible drug overdose also noted to have significant finding on a chest x-ray and the CT concerning for possible pneumonia question of aspiration etiology in this patient has been around the hospital concerning for possible resistant gram-positive as well as gram-negative pathogen, 2-patient did have Pseudomonas aeruginosa in the sputum concerning for pneumonia possible aspiration, 3patient is afebrile white count is slightly up possible oropharyngeal candidiasis versus steroid related will give her Diflucan and repeat CBC with a.m. lab on Zosyn but no need for IV antibiotic on discharge Dictation was produced using [employer] dictation software. please excuse any grammatical, word or spelling errors. Time with Patient: Less than 30
[2024-11-24] MEDS: POTASSIUM BICARBONATE/CIT AC 20 MEQ TABLET.EFF NG-TUBE SCH (16:00)
[2024-11-24] MEDS: FLUCONAZOLE 100 MG TAB PO ONE (16:01)
[2024-11-24 17:57] LABS: Glucose,Whole Blood 119 mg/dL (70-110)
[2024-11-24] MEDS ORDERED: IPRATROPIUM-ALBUTEROL 3 ML NEB INHALATION PRN (21:03)
[2024-11-25 00:22] LABS: Glucose,Whole Blood 128 mg/dL (70-110)
--- NOTE | 2024-11-25 06:30 | P.PN ---
Subjective Progress Note Date: 11/24/24 Patient is evaluated today in follow up in the intensive care unit. Patient remains intubated on the mechanical ventilator with PEEP of 5 and FiO2 of 40%. Patient remains sedated. LFTs remain elevated, white blood cell count up to 38. Blood culture pending. Patient continues on IV Vancomycin and IV cefepime. ID following. Chest xray today reveals stable upper lobe interstitial opacities. Spinal surgery evaluated the patient felt the wound was noninfectious and healing well. Patients heart rate has been in the 120s was resumed on home medication of propanolol and has had improvement in the heart rate down to the 80s this afternoon. 11/08/2024 Patient is evaluated today in follow up in the ICU. Remains intubated and sedated on the mechanical ventilator with settings at PEEP of 5 and 40% FiO2. C hest xray today reveals interstitial opacities correlating for atypical pneumonia. There is extensive fixation hardware throughout the spine. White blood cell count of 18.7, hgb 7.0, MCV 105.6. Magnesium 1.2, potassium 3.3. Remains on IV cefepime, IV vancomycin. Has been started on systemic steroids. Patient with low grade temp of 99.8 today. Blood pressure low/normal. 11/09/2024 Patient is evaluated in the Intensive care unit, family at the bedside. Patient remains on the mechanical ventilator with PEEP of 5, FiO2 of 40%. Not ready for weaning today. Chest xray reveals interstitial opacities of the lungs correlate for atypical pneumonia. Sputum positive for pseudomonas. Patient remains on IV Cefepime. Also on IV solumedrol. Patient is sedated with propofol. Normal saline is running at 75 mls/hr. White blood cell count 17.9, hgb 8.1. Sodium 145, potassium 4.1, BUN 23, creatinine 0.67. Patient with low grade temp 99 axillary. 11/10/2024 Patient evaluated today in the intensive care unit. She remains sedated and intubated on mechanical ventilator settings of PEEP of 5 with FiO2 40%. She is awake and alert although her eyes are not tracking. She does remain on propofol. Chest x-ray today reveals interstitial opacities of the lungs are unchanged. Sputum culture shows Pseudomonas x 2. Her labs today reveal a white blood cell count of 18.2, hemoglobin 8.6, platelet count of 625, sodium of 145, potassium 3.8, BUN of 26, creatinine of 0.73, magnesium 2.1. Her blood glucose is controlled. She is having some residuals with the enteral feedings per the nurse they have been decreased to 20 mL/h and will monitor the residuals closely. Patient continues on IV cefepime IV Solu-Medrol. She is sedated with IV propofol she is on normal saline at 75 mL/h. Pulmonary is considering this patient for tracheostomy and PEG tube placement 11/11/2024 Patient evaluated in the ICU patient is unable to be weaned and continues to become agitated when weaning off the propofol. Residuals are better today and tube feeds up to 30 mls/hr and she is having bowel movements. Antibiotics have been transitioned to IV zosyn. ID following closely. Labs today reveal white blood cell count 19.2, hgb 8.3, sodium 144, potassium 4.0, BUN 27, creatinine 0.66. Chest xray today reveals stable findings. 11/14/2024 Patient is evaluated today in the intensive care unit. No family able to bring patients briviact up to the hospital so she has been started on oral keppra. Continues to be sedated and intubated on the mechanical ventilator. Chest xray today reveals no new acute pulmonary process. Hemoglobin 6.4 today and patient scheduled to receive 1 unit of PRBC. White blood cell count down to 12.7. Sodium 147, potassium 3.3., BUN 26, creatinine 0.69. General surgery was consulted for PEG/Trach. 11/15/2024 Patient is evaluated in follow-up remains in the ICU she is sedated and intubat ed; on the mechanical ventilator with an FiO2 of 40% PEEP of 5. Patient will be going for trach and PEG tube placement. Chest x-ray today reveals no acute new pulmonary process. White blood cell count is 21.9, hemoglobin 8.7, sodium of 147 potassium 3.8, BUN 22 creatinine 0.64 magnesium 1.9. 11/16/2024 Patient is evaluated in follow-up remains in the intensive care unit. Patient is currently sedated with propofol she is currently intubated on mechanical ventilator with a FiO2 of 40% and a PEEP of 5. Patient underwent tracheostomy and PEG tube placement yesterday. Chest x-ray reveals no new acute process. Improved bilateral interstitial edema noted. Patient to be started on oral [place] today. She continues on IV Zosyn. Her labs reveal a white blood cell count of 16.6, hemoglobin 8.7, sodium of 140, potassium 3.6, creatinine 0.64. 11/17/2024 Patient evaluated in the ICU. Remains on the mechanical ventilator intubated. Awake alert and following some commands. Status post tracheostomy and PEG tube placement. Labs today 15.9, hgb 8.6, sodium 139, potassium 3.2, BUN 18, creatin ine 0.67. 11/18/2024 Patient evaluated today in the ICU and remains on the mechanical ventilator i ntubated. Patient is awake alert following simple commands. Diffusely weak. She is currently off sedation. Patient is status post tracheostomy and PEG tube placement. Continues on enteral feedings. Patient will continue on Vital 1.2 with goal of 50 mls/hr. 11/19/2024 Patient evaluated in the intensive care unit she is status post trach and PEG tube placement. She is off the propofol awake alert and oriented she states that she is scared in regards to the tracheostomy tube. Her chest x-ray today reveals persistent small left pleural effusion with associated basilar infiltrate and or atelectasis. Her labs reveal a white blood cell count of 14.8, hemoglobin 8.6, sodium of 141 potassium of 3.4, BUN of 25 creatinine of 0.67. 11/20/2024 Patient is evaluated in follow-up in intensive care unit. Patient is status post tracheostomy and PEG tube placement. Patient has been on the trach collar overnight and doing well. She is off the mechanical ventilator at this time. Patient is awake alert oriented following commands. Patient will be moved out of the intensive care unit when a bed is available. Her chest x-ray today reveals persistent small pleural effusion with associated bibasilar infiltrate and/or atelectasis. labs today reveal a white blood cell count of 14.2, hemoglobin 8.4, sodium of 142, potassium 3.6, BUN of 25 creatinine 0.61 magnesium level of 1.9. 11/21/2024 Patient is seen in follow-up today continues in the ICU on tracheostomy and PEG tube. Patient is continued on trach collar with pulmonary talent sourcer following and working on transferring [facility] for continued ongoing care. White count remains elevated and patient is maintained on antibiotics with infectious disease following. Case management following as patient requires insurance authorization which is currently pending. Possible discharge planning in the next 24 hours to LTAC 11/22/2024 Patient is seen in follow-up in the ICU although is a downgrade once a bed becomes available on 3 S. Insurance authorization was denied for LTAC requesting a peer to peer. Attempted to do peer to peer with multiple phone calls and insurance company reporting there was no reference number and unable to locate the denial. Will attempt to call back again with the reference number that was provided to me from the third insurance call. Patient is afebrile maintained on tracheostomy with pulmonary and infectious disease following. Orthopedics following with no plans of further surgical intervention recommending outpatient follow-up. Patient continues on trach collar with 28% FiO2. Patient needs frequent suctioning and cannulation and currently has a #6 Shiley nonfenestrated. Patient maintained on aspiration precautions with PEG tube and tolerating tube feeds thus far. Patient is significantly weak and will need extensive physical therapy on discharge. Patient was independent and ambulatory prior to this hospitalization. 11/23/2024 Patient is seen in follow-up today maintained on antibiotics with infectious disease following. Orthopedics recommending outpatient follow-up and medically stable with no further plans of surgical intervention at this time. Patient initially planning on LTAC for continued frequent suctioning and decannulation as patient did require tracheostomy and PEG tube placement. [id number] was attempted although denied recommending staying hospitalized until decannulated or possible fci. Patient with case management following making other referrals to [facility] that provide tracheostomy care services. Patient will require insurance authorization for fci as well and will be submitted per case management once there is an accepting facility. Patient is afebrile and white count is trending down currently at 14. Continue with aspiration precautions and monitoring PEG tube residuals closely. 11/24/2024 Patient is seen in follow-up today with no acute overnight issues noted. Patient requiring frequent suctioning via tracheostomy and continued on treatments with multiple consultations following. Infectious disease following as white count is mildly elevated with concerns of Erin will give a dose of Diflucan and continue antibiotics for now. Patient will likely not require antibiotics on discharge. Patient awaiting acceptance at an [facility] for discharge planning as patient is significantly weak and also needs continued tracheostomy care with decannulation. Patient is currently maintained on tube feeds and tolerating although per nursing staff having frequent episodes of diarrhea likely secondary to the type of tube feeding which is being adjusted by dietary. Will order C. difficile and rule out. Review of systems: Constitutional: No reports of fatigue, fever, or chills Cardiovascular: No reports of chest pain or palpitations Respiratory: No reports of worsening shortness of breath, reports discomfort with tracheostomy GI: No reports of nausea, vomiting, reports of multiple episodes of loose stool : No reports of dysuria or retention Neurovascular: reports of generalized weakness All medications have been reviewed Physical Examination GENERAL EXAM: This is a 54-year-old female, currently on tracheostomy with an FiO2 of 28% and 5 L of oxygen, well-developed, elderly appearing, thin built HEAD: Normocephalic. Normal reaction of pupils, equal size. Tracheostomy noted with no drainage on the gauze although there is significant secretions noted that required suctioning THROAT: No erythema or exudates. NECK: No masses, no JVD. CHEST: No chest wall deformity. LUNGS: Diminished breath sounds bilaterally with some scattered rhonchi and bronchial congestion noted CVS: S1 and S2 muffled ABDOMEN: No hepatosplenomegaly, normal bowel sounds, no guarding or rigidity. Peg tube in place. SPINE: No scoliosis or deformity. Surgical dressing dry and intact. SKIN: No rashes CENTRAL NERVOUS SYSTEM: No focal deficits noted, tone is normal in all 4 extremities. EXTREMITIES: There is no peripheral edema. No clubbing, no cyanosis. Peripheral pulses are intact. Assessment: -Altered mental status from acute toxic and metabolic encephalopathy with episode of unresponsive, likely related to narcotics versus sepsis, improved and at baseline -Unable to rule out aspiration pneumonia -Pseudomonas pneumonia Healthcare acquired with septic shock POA -Acute hypoxic/hypercapnic respiratory failure; as indicated above; patient remains on tracheostomy and PEG tube placement -Surgical site infection/wound dehiscence and Patient is status post surgery on 10/27/2024 for open treatment of a T8 fracture, irrigation and excisional debridement of thoracic spine wound measuring 10 x 7 x 4 cm, posterior lateral instrumented fusion of T7-T11 and cement augmentation of T8-T10 vertebral bodies; Orthopedic surgery consulted and felt the wound was noninfectious and healing well. -Leukocytosis/sepsis; continue with IV antibiotics as indicated above; patient has been pancultured, improving and trending down -Hypernatremia, improving -Diarrhea, C. difficile ruled out -History of hypertension; propranolol 20 mg twice daily has been resumed; prazosin 2 mg twice daily on hold -Macroctyic anemia -Hyperlipidemia; currently not on any statin therapy -Hypothyroidism; levothyroxine 88 mcg daily -History of CAD -Chronic heart failure with preserved EF with no acute exacerbation -History of COPD/Asthma -PTSD/Bipolar/Borderline personality -Chronic nicotine use -Polysubstance use -Rectal prolapse -Hx seizure disorder -Gastroesophageal reflux DVT prophylaxis; SCDs/subcu heparin CODE STATUS; full code Plan: -Patient was intubated and mechanically ventilated in ED. patient has been extubated and is currently on a trach collar with an FiO2 of 28% and tolerating trach collar off of the vent. Insurance was denied for LTAC and case management following as insurance requested a peer to peer. Attempted peer to peer although was denied reporting she does not meet criteria for [facility] admission recommending possible ECF with tracheostomy services. Case management is following and placing referrals which are pending -Urine drug screen positive for opiates, barbiturates, tricyclic antidepressants, benzodiazepines and marijuana concern for polysubstance use, narcotics being held currently -Blood culture remain negative so far -Sputum culture revealing pseudomonas aeruginosa. x2 and will continue on Zosyn for now per ID and will give a dose of Diflucan with concerns of Erin. Patient will likely not require antibiotics on discharge -Critical care service on board and has been downgraded from the ICU currently awaiting a bed on stepdown -Patient has been transitioned to oral prednisone -Residuals are improved and at about 100 mls and patient continues on enteral feedings at goal and tolerating, recommend aspiration precautions and head of the bed elevated 35 to 45 degrees at all times. Patient having multiple episodes of loose stool with concerns of C. difficile and specimen was sent and negative. Likely secondary to tube feeds which is being adjusted per dietary -Antiseizure medications have been resumed; we do not carry briviact so patient was transitioned over to keppra. -Monitor electrolytes and renal function -Patient is status post 1 unit of packed red blood cells this admission with improvement in her hemoglobin -Status post PEG/Trach continue on enteral feedings. -Plan is for ECF that can accommodate respiratory care with tracheostomy on discharge. Patient will also require a new insurance authorization once there is an accepting ECF Due to multiple complex medical issues, overall prognosis is guarded The impression and plan of care has been dictated by Kristina Wells, Nurse Practitioner as directed. Dr. Dick MD I have performed a history and physical examination and medical decision making of this patient, discussed the same with the dictator, and agree with the dictators assessment and plan as written, documented as a scribe. Based on total visit time, I have performed more than 50% of this visit. Objective - Vital Signs Vital signs: Vital Signs Temp 98.0 F 11/24/24 09:19 Pulse 83 11/24/24 11:28 Resp 18 11/24/24 11:28 BP 163/95 11/24/24 11:28 Pulse Ox 98 11/24/24 11:28 FiO2 28 11/24/24 10:54 Intake & Output 11/23/24 11/24/24 11/24/24 18:59 06:59 18:59 Intake Total 10 Output Total 1000 1275 750 Balance -990 -3985 -750 Weight 54.5 kg Intake: IV 10 Invasive Line 10 10 Output: Urine 1000 1275 750 Other: Voiding Method Indwelling Catheter Indwelling Catheter Indwelling Catheter # Bowel Movements 1 ABP, PAP, CO, CI - Last Documented Arterial Blood Pressure 158/76 - Labs CBC & Chem 7: 11/24/24 06:10 11/24/24 06:10 Labs: Abnormal Lab Results - Last 24 Hours (Table) 11/23/24 11/24/24 11/24/24 Range/Units 18:00 05:58 06:10 WBC 14.1 H (3.8-10.6) k/uL RBC 2.80 L (3.80-5.40) m/uL Hgb 8.4 L (11.4-16.0) gm/dL Hct 27.1 L (34.0-46.0) % RDW 18.1 H (11.5-15.5) % Neutrophils # 12.1 H (1.3-7.7) k/uL Potassium (3.5-5.1) mmol/L Chloride (98-107) mmol/L BUN (7-17) mg/dL Glucose (74-99) mg/dL POC Glucose (mg/dL) 129 H 122 H (70-110) mg/dL 11/24/24 11/24/24 Range/Units 06:10 12:13 WBC (3.8-10.6) k/uL RBC (3.80-5.40) m/uL Hgb (11.4-16.0) gm/dL Hct (34.0-46.0) % RDW (11.5-15.5) % Neutrophils # (1.3-7.7) k/uL Potassium 3.3 L (3.5-5.1) mmol/L Chloride 110 H (98-107) mmol/L BUN 20 H (7-17) mg/dL Glucose 108 H (74-99) mg/dL POC Glucose (mg/dL) 135 H (70-110) mg/dL
[2024-11-25 07:09] LABS: African American GFR (CKD) >90 (>60 ml/min/1.73 sqM); Anion Gap 9 mmol/L; Blood Urea Nitrogen 18 mg/dL (7-17); C Reactive Protein 2.2 mg/dL (<1.0); Calcium 8.8 mg/dL (8.4-10.2); Carbon Dioxide 24 mmol/L (22-30); Chloride 109 mmol/L (98-107); Glucose 122 mg/dL (74-99); Non-African American GFR(CKD) >90 (>60 ml/min/1.73 sqM); Potassium 3.2 mmol/L (3.5-5.1); Sodium 142 mmol/L (137-145)
[2024-11-25 07:19] LABS: Anisocytosis Slight; Basophils # (A) 0.1 k/uL (0-0.2); Basophils % (A) 1 %; Eosinophils # (A) 0.3 k/uL (0-0.7); Eosinophils % (A) 2 %; HCT 29.2 % (34.0-46.0); HGB 8.5 gm/dL (11.4-16.0); Hypochromasia Marked; Lymphocytes # (A) 1.1 k/uL (1.0-4.8); Lymphocytes % (A) 8 %; MCH 29.3 pg (25.0-35.0); MCHC 29.3 g/dL (31.0-37.0); MCV 100.1 fL (80.0-100.0); Macrocytosis Moderate; Mean Platelet Volume 8.1; Monocytes # (A) 0.4 k/uL (0-1.0); Monocytes % (A) 3 %; Neutrophils # (A) 11.5 k/uL (1.3-7.7); Neutrophils % (A) 85 %; Platelet Count 416 k/uL (150-450); RBC 2.92 m/uL (3.80-5.40); RDW 18.7 % (11.5-15.5); WBC 13.6 k/uL (3.8-10.6)
--- NOTE | 2024-11-25 07:58 | XR ---
EXAM: XR Chest, 1 View CLINICAL HISTORY: ITS.REASON XR Reason: sob TECHNIQUE: Frontal view of the chest. COMPARISON: No relevant prior studies available. FINDINGS: Lungs: Opacification of the left lung base. Pleural space: Left-sided pleural effusion. No pneumothorax. Heart: Unremarkable. No cardiomegaly. Mediastinum: Unremarkable. Normal mediastinal contour. Bones/joints: Partial characterization of spine fusion hardware. Degenerative changes are seen in the shoulders. No acute fracture. Vasculature: Calcifications overlie the aorta. Other findings: The right is clear. IMPRESSION: Left basilar pleural effusion with adjacent atelectasis and/or pneumonia not excluded.
[2024-11-25] MEDS: FLUCONAZOLE 100 MG TAB PO SCH (08:19)
[2024-11-25] MEDS: IPRATROPIUM-ALBUTEROL 3 ML NEB INHALATION SCH (09:25)
[2024-11-25 11:26] LABS: Glucose,Whole Blood 157 mg/dL (70-110)
[2024-11-25] MEDS: POTASSIUM BICARBONATE/CIT AC 20 MEQ TABLET.EFF NG-TUBE SCH (12:27)
--- NOTE | 2024-11-25 12:50 | P.PN ---
Subjective Progress Note Date: 11/25/24 The patient is seen today November 23, 2024 in follow-up on the selective care unit. She was transferred out of the intensive care unit yesterday. She is awake and alert in no acute distress. She is maintaining good O2 saturations in the 90s on 28% FiO2 via trach collar. Her tracheotomy tube is a #6 Shiley, nonfenestrated, the cuff is deflated. She is tolerating this very well. She is afebrile. Hemodynamically stable. White count 14.1. Hemoglobin 8.3. Platelets 449. Sodium 140. Potassium 3.6. Bicarb 27. BUN 21. Creatinine 0.59. Glucose 116. She remains on DuoNeb inhalations, Pulmicort and Perforomist inhalations, prednisone taper. Remains on antibiotics in the form of Zosyn per ID service. Lovenox for DVT prophylaxis. She is being nourished with vital HP at 50 cc/h. The patient is seen today November 24, 2024 in follow-up on the selective care unit. She is awake and alert in no acute distress. Resting comfortably in bed. She is maintaining good O2 saturations in the upper 90s on 28% FiO2 via trach collar. She is afebrile. Hemodynamically stable. She has received 1 unit of packed red blood cells this admission. Current hemoglobin 8.4. Platelets 415. White count 14.1. Sodium 142. Potassium 3.3. Bicarb 26. BUN 20. Creatinine 0.59. Glucose 108.` She remains on Zosyn for her Pseudomonas lung infection. Continued on DuoNeb inhalations, Pulmicort and Perforomist inhalations, prednisone. Lovenox for DVT prophylaxis. She remains on vital HP at 50 cc/h for nourishment. The patient is seen today November 25, 2024 in follow-up on the selective care unit. She is currently sitting up in bed. Awake and alert in no acute distress. She is maintaining O2 saturations in the 90s on 28% FiO2 via trach collar. Similar left basilar pleural effusion with adjacent atelectasis. She remains on Zosyn per ID service. White count 13.6. Hemoglobin 8.5. Platelets 416. Sodium 142. Potassium 3.2. Bicarb 24. BUN 18. Creatinine 0.63. Glucose 122. She remains on Pulmicort and Perforomist inhalations, DuoNeb inhalations, prednisone taper. Lovenox for DVT prophylaxis. She is continued on vital HP at 50 cc/h via PEG tube. Objective - Vital Signs Vital signs: Vital Signs Temp 97.8 F 11/25/24 08:23 Pulse 82 11/25/24 09:59 Resp 18 11/25/24 08:23 BP 146/84 11/25/24 08:23 Pulse Ox 94 L 11/25/24 08:23 FiO2 28 11/25/24 09:25 Intake & Output 11/24/24 11/25/24 11/25/24 18:59 06:59 18:59 Intake Total 0 345 Output Total 1650 1500 Balance -1650 345 -1500 Weight 54.5 kg 52 kg Intake: Oral 0 Tube Feeding 225 Other 120 Output: Urine 1650 1500 Other: Voiding Method Indwelling Catheter Indwelling Catheter Indwelling Catheter # Bowel Movements 1 ABP, PAP, CO, CI - Last Documented Arterial Blood Pressure 158/76 - Exam GENERAL EXAM: Awake, alert 54-year-old female, on 28% FiO2 via trach collar, in no apparent distress. HEAD: Normocephalic. EYES: Normal reaction of pupils, equal size. NOSE: Clear with pink turbinates. THROAT: Tracheostomy tube secured in place. No erythema or exudates. NECK: No masses, no JVD. CHEST: No chest wall deformity. LUNGS: Equal air entry with no crackles, wheeze, rhonchi or dullness. CVS: S1 and S2 normal with no audible murmur, regular rhythm. ABDOMEN: PEG tube exit site clean and dry. No hepatosplenomegaly, normal bowel sounds, no guarding or rigidity. SPINE: No scoliosis or deformity SKIN: No rashes CENTRAL NERVOUS SYSTEM: No noted focal deficit, tone is normal in all 4 extremities. EXTREMITIES: There is no peripheral edema. No clubbing, no cyanosis. Peripheral pulses are intact. - Labs CBC & Chem 7: 11/25/24 06:03 11/25/24 06:03 Labs: Abnormal Lab Results - Last 24 Hours (Table) 11/24/24 11/25/24 11/25/24 Range/Units 17:55 00:16 06:03 WBC 13.6 H (3.8-10.6) k/uL RBC 2.92 L (3.80-5.40) m/uL Hgb 8.5 L (11.4-16.0) gm/dL Hct 29.2 L (34.0-46.0) % MCV 100.1 H (80.0-100.0) fL MCHC 29.3 L (31.0-37.0) g/dL RDW 18.7 H (11.5-15.5) % Neutrophils # 11.5 H (1.3-7.7) k/uL Potassium (3.5-5.1) mmol/L Chloride (98-107) mmol/L BUN (7-17) mg/dL Glucose (74-99) mg/dL POC Glucose (mg/dL) 119 H 128 H (70-110) mg/dL C-Reactive Protein (<1.0) mg/dL 11/25/24 11/25/24 Range/Units 06:03 11:24 WBC (3.8-10.6) k/uL RBC (3.80-5.40) m/uL Hgb (11.4-16.0) gm/dL Hct (34.0-46.0) % MCV (80.0-100.0) fL MCHC (31.0-37.0) g/dL RDW (11.5-15.5) % Neutrophils # (1.3-7.7) k/uL Potassium 3.2 L (3.5-5.1) mmol/L Chloride 109 H (98-107) mmol/L BUN 18 H (7-17) mg/dL Glucose 122 H (74-99) mg/dL POC Glucose (mg/dL) 157 H (70-110) mg/dL C-Reactive Protein 2.2 H (<1.0) mg/dL Assessment and Plan Assessment: Altered mental status, obtunded requiring intubation and mechanical ventilatory support on November 06, 2024. Suspect secondary to narcotics. Urine drug screen positive for opiates, barbiturates, tricyclic antidepressants, benzodiazepines and marijuana. Subsequently had undergone tracheostomy and PEG tube placement on November 15, 2024. She has been off the mechanical ventilator since November 19, 2024 and transitioned to 28% FiO2 via trach collar Acute hypoxemic and hypercapnic respiratory failure secondary to above, positive sputum culture for Pseudomonas aeruginosa, currently on Zosyn Discharge from the hospital following surgery on 10/27/2024 for open treatment of a T8 fracture, irrigation and excisional debridement of thoracic spine wound yessica suring 10 x 7 x 4 cm, posterior lateral instrumented fusion of T7-T11 and cement augmentation of T8-T10 vertebral bodies. Chronic obstructive pulmonary disease/asthma, currently inactive and stable T2 vertebral fracture with revision of C2-T7 posterior lateral fusion on 09/09/2024 Surgical site infection and wound dehiscence, wound and blood cultures revealed no growth Acute leukocytosis, improved Macrocytic anemia Rectal prolapse with bleeding History of hypertension History of hyperlipidemia History of coronary artery disease History of heart failure with preserved ejection fraction History of gastroesophageal reflux disease History of seizure disorder History of hypothyroidism History of anxiety/depression/PTSD Plan: The patient was seen and evaluated Chest x-ray, labs and medications reviewed Continue DuoNeb inhalations, prednisone Continue Pulmicort and Perforomist inhalations Lovenox for DVT prophylaxis Zosyn per ID service Vital HP for nutritional support Plan is for subacute rehab possibly at [facility] or [place] This patient was seen independently by the pulmonary nurse practitioner addressing pulmonary issues I have personally seen and examined the patient, performed the documentation and the assessment and plan as written. Number of minutes spent on the visit: 24 Dictation was produced using [employer] dictation software. Please excuse any grammatical, word or spelling errors.
--- NOTE | 2024-11-25 15:02 | P.PN ---
Subjective Progress Note Date: 11/25/24 Principal diagnosis: Reason for follow-up is pneumonia Patient is a 54-year-old female with a past medical history significant for COPD DVT hypertension hyperlipidemia who recently did have a cervical thoracic spine surgery revision for a nonhealing wound to the mid/upper back area patient cultures were negative has been brought to the hospital on the patient was found to be unresponsive requiring elevation and admission to the ICU Patient is status post tracheostomy and PEG tube placement completed on 11/15/2024. On today's evaluation that is 11/25/2024, the patient continues to be afebrile, the patient is on 5 L trach collar and breathing comfortably, the Pt does not seem to be any distress is awake but not with good historian no meaningful information could be obtained. Patient white count is down to 13.6 creatinine 0.63 Objective - Vital Signs Vital signs: Vital Signs Temp 97.8 F 11/25/24 08:23 Pulse 92 11/25/24 12:43 Resp 18 11/25/24 12:43 BP 154/67 11/25/24 12:43 Pulse Ox 95 11/25/24 12:43 FiO2 28 11/25/24 12:43 Intake & Output 11/24/24 11/25/24 11/25/24 18:59 06:59 18:59 Intake Total 0 345 Output Total 1650 1500 Balance -1650 345 -1500 Weight 54.5 kg 52 kg Intake: Oral 0 Tube Feeding 225 Other 120 Output: Urine 1650 1500 Other: Voiding Method Indwelling Catheter Indwelling Catheter Indwelling Catheter # Bowel Movements 1 ABP, PAP, CO, CI - Last Documented Arterial Blood Pressure 158/76 - Exam GENERAL DESCRIPTION: Middle-age female lying in bed in no distress RESPIRATORY SYSTEM: Unlabored breathing , decreased breath sounds at bases HEART: S1 S2 regular rate and rhythm , ABDOMEN: Soft , no tenderness EXTREMITIES: No edema feet - Labs CBC & Chem 7: 11/25/24 06:03 11/25/24 06:03 Labs: Abnormal Lab Results - Last 24 Hours (Table) 11/24/24 11/25/24 11/25/24 Range/Units 17:55 00:16 06:03 WBC 13.6 H (3.8-10.6) k/uL RBC 2.92 L (3.80-5.40) m/uL Hgb 8.5 L (11.4-16.0) gm/dL Hct 29.2 L (34.0-46.0) % MCV 100.1 H (80.0-100.0) fL MCHC 29.3 L (31.0-37.0) g/dL RDW 18.7 H (11.5-15.5) % Neutrophils # 11.5 H (1.3-7.7) k/uL Potassium (3.5-5.1) mmol/L Chloride (98-107) mmol/L BUN (7-17) mg/dL Glucose (74-99) mg/dL POC Glucose (mg/dL) 119 H 128 H (70-110) mg/dL C-Reactive Protein (<1.0) mg/dL 11/25/24 11/25/24 Range/Units 06:03 11:24 WBC (3.8-10.6) k/uL RBC (3.80-5.40) m/uL Hgb (11.4-16.0) gm/dL Hct (34.0-46.0) % MCV (80.0-100.0) fL MCHC (31.0-37.0) g/dL RDW (11.5-15.5) % Neutrophils # (1.3-7.7) k/uL Potassium 3.2 L (3.5-5.1) mmol/L Chloride 109 H (98-107) mmol/L BUN 18 H (7-17) mg/dL Glucose 122 H (74-99) mg/dL POC Glucose (mg/dL) 157 H (70-110) mg/dL C-Reactive Protein 2.2 H (<1.0) mg/dL Assessment and Plan (1) Pneumonia Current Visit: Yes Status: Acute Code(s): J18.9 - PNEUMONIA, UNSPECIFIED ORGANISM SNOMED Code(s): 112915744 (2) Abnormal CT scan, chest Current Visit: Yes Status: Acute Code(s): R93.89 - ABNORMAL FINDINGS ON DX IMAGING OF OTH BODY STRUCTURES SNOMED Code(s): 18554925841069202 (3) Leukocytosis Current Visit: No Status: Acute Code(s): D72.829 - ELEVATED WHITE BLOOD CELL COUNT, UNSPECIFIED SNOMED Code(s): 062093542 Plan: 1patient presented to hospital after the patient was found to be unresponsive at home concerning for possible drug overdose also noted to have significant finding on a chest x-ray and the CT concerning for possible pneumonia question of aspiration etiology in this patient has been around the hospital concerning for possible resistant gram-positive as well as gram-negative pathogen, 2-patient did have Pseudomonas aeruginosa in the sputum concerning for pneumonia possible aspiration, 3patient is afebrile white count is trending down question of possible oropharyngeal candidiasis versus steroid related with the white count trending down with the Diflucan to continue for short course Zosyn can be safely discontinued Dictation was produced using [employer] dictation software. please excuse any grammatical, word or spelling errors. Time with Patient: Less than 30
[2024-11-25] MEDS: LOPERAMIDE 2 MG CAP PO PRN (16:10)
[2024-11-25 18:18] LABS: Glucose,Whole Blood 134 mg/dL (70-110)
[2024-11-26 05:58] LABS: Glucose,Whole Blood 140 mg/dL (70-110)
[2024-11-26 07:16] LABS: Anisocytosis Slight; Basophils % (A) 0 %; Eosinophils # (A) 0.3 k/uL (0-0.7); Eosinophils % (A) 2 %; HCT 28.7 % (34.0-46.0); HGB 8.6 gm/dL (11.4-16.0); Hypochromasia Moderate; Lymphocytes % (A) 8 %; MCH 29.7 pg (25.0-35.0); MCHC 30.1 g/dL (31.0-37.0); MCV 98.6 fL (80.0-100.0); Macrocytosis Slight; Mean Platelet Volume 7.8; Monocytes # (A) 0.4 k/uL (0-1.0); Monocytes % (A) 3 %; Neutrophils # (A) 11.4 k/uL (1.3-7.7); Neutrophils % (A) 86 %; Platelet Count 378 k/uL (150-450); RBC 2.91 m/uL (3.80-5.40); RDW 18.6 % (11.5-15.5); WBC 13.3 k/uL (3.8-10.6)
--- NOTE | 2024-11-26 07:42 | P.PN ---
Subjective Progress Note Date: 11/25/24 Patient is evaluated today in follow up in the intensive care unit. Patient remains intubated on the mechanical ventilator with PEEP of 5 and FiO2 of 40%. Patient remains sedated. LFTs remain elevated, white blood cell count up to 38. Blood culture pending. Patient continues on IV Vancomycin and IV cefepime. ID following. Chest xray today reveals stable upper lobe interstitial opacities. Spinal surgery evaluated the patient felt the wound was noninfectious and healing well. Patients heart rate has been in the 120s was resumed on home medication of propanolol and has had improvement in the heart rate down to the 80s this afternoon. 11/08/2024 Patient is evaluated today in follow up in the ICU. Remains intubated and sedated on the mechanical ventilator with settings at PEEP of 5 and 40% FiO2. C hest xray today reveals interstitial opacities correlating for atypical pneumonia. There is extensive fixation hardware throughout the spine. White blood cell count of 18.7, hgb 7.0, MCV 105.6. Magnesium 1.2, potassium 3.3. Remains on IV cefepime, IV vancomycin. Has been started on systemic steroids. Patient with low grade temp of 99.8 today. Blood pressure low/normal. 11/09/2024 Patient is evaluated in the Intensive care unit, family at the bedside. Patient remains on the mechanical ventilator with PEEP of 5, FiO2 of 40%. Not ready for weaning today. Chest xray reveals interstitial opacities of the lungs correlate for atypical pneumonia. Sputum positive for pseudomonas. Patient remains on IV Cefepime. Also on IV solumedrol. Patient is sedated with propofol. Normal saline is running at 75 mls/hr. White blood cell count 17.9, hgb 8.1. Sodium 145, potassium 4.1, BUN 23, creatinine 0.67. Patient with low grade temp 99 axillary. 11/10/2024 Patient evaluated today in the intensive care unit. She remains sedated and intubated on mechanical ventilator settings of PEEP of 5 with FiO2 40%. She is awake and alert although her eyes are not tracking. She does remain on propofol. Chest x-ray today reveals interstitial opacities of the lungs are unchanged. Sputum culture shows Pseudomonas x 2. Her labs today reveal a white blood cell count of 18.2, hemoglobin 8.6, platelet count of 625, sodium of 145, potassium 3.8, BUN of 26, creatinine of 0.73, magnesium 2.1. Her blood glucose is controlled. She is having some residuals with the enteral feedings per the nurse they have been decreased to 20 mL/h and will monitor the residuals closely. Patient continues on IV cefepime IV Solu-Medrol. She is sedated with IV propofol she is on normal saline at 75 mL/h. Pulmonary is considering this patient for tracheostomy and PEG tube placement 11/11/2024 Patient evaluated in the ICU patient is unable to be weaned and continues to become agitated when weaning off the propofol. Residuals are better today and tube feeds up to 30 mls/hr and she is having bowel movements. Antibiotics have been transitioned to IV zosyn. ID following closely. Labs today reveal white blood cell count 19.2, hgb 8.3, sodium 144, potassium 4.0, BUN 27, creatinine 0.66. Chest xray today reveals stable findings. 11/14/2024 Patient is evaluated today in the intensive care unit. No family able to bring patients briviact up to the hospital so she has been started on oral keppra. Continues to be sedated and intubated on the mechanical ventilator. Chest xray today reveals no new acute pulmonary process. Hemoglobin 6.4 today and patient scheduled to receive 1 unit of PRBC. White blood cell count down to 12.7. Sodium 147, potassium 3.3., BUN 26, creatinine 0.69. General surgery was consulted for PEG/Trach. 11/15/2024 Patient is evaluated in follow-up remains in the ICU she is sedated and intubat ed; on the mechanical ventilator with an FiO2 of 40% PEEP of 5. Patient will be going for trach and PEG tube placement. Chest x-ray today reveals no acute new pulmonary process. White blood cell count is 21.9, hemoglobin 8.7, sodium of 147 potassium 3.8, BUN 22 creatinine 0.64 magnesium 1.9. 11/16/2024 Patient is evaluated in follow-up remains in the intensive care unit. Patient is currently sedated with propofol she is currently intubated on mechanical ventilator with a FiO2 of 40% and a PEEP of 5. Patient underwent tracheostomy and PEG tube placement yesterday. Chest x-ray reveals no new acute process. Improved bilateral interstitial edema noted. Patient to be started on oral [place] today. She continues on IV Zosyn. Her labs reveal a white blood cell count of 16.6, hemoglobin 8.7, sodium of 140, potassium 3.6, creatinine 0.64. 11/17/2024 Patient evaluated in the ICU. Remains on the mechanical ventilator intubated. Awake alert and following some commands. Status post tracheostomy and PEG tube placement. Labs today 15.9, hgb 8.6, sodium 139, potassium 3.2, BUN 18, creatin ine 0.67. 11/18/2024 Patient evaluated today in the ICU and remains on the mechanical ventilator i ntubated. Patient is awake alert following simple commands. Diffusely weak. She is currently off sedation. Patient is status post tracheostomy and PEG tube placement. Continues on enteral feedings. Patient will continue on Vital 1.2 with goal of 50 mls/hr. 11/19/2024 Patient evaluated in the intensive care unit she is status post trach and PEG tube placement. She is off the propofol awake alert and oriented she states that she is scared in regards to the tracheostomy tube. Her chest x-ray today reveals persistent small left pleural effusion with associated basilar infiltrate and or atelectasis. Her labs reveal a white blood cell count of 14.8, hemoglobin 8.6, sodium of 141 potassium of 3.4, BUN of 25 creatinine of 0.67. 11/20/2024 Patient is evaluated in follow-up in intensive care unit. Patient is status post tracheostomy and PEG tube placement. Patient has been on the trach collar overnight and doing well. She is off the mechanical ventilator at this time. Patient is awake alert oriented following commands. Patient will be moved out of the intensive care unit when a bed is available. Her chest x-ray today reveals persistent small pleural effusion with associated bibasilar infiltrate and/or atelectasis. labs today reveal a white blood cell count of 14.2, hemoglobin 8.4, sodium of 142, potassium 3.6, BUN of 25 creatinine 0.61 magnesium level of 1.9. 11/21/2024 Patient is seen in follow-up today continues in the ICU on tracheostomy and PEG tube. Patient is continued on trach collar with pulmonary flash ranging crewmember following and working on [facility] for continued ongoing care. White count remains elevated and patient is maintained on antibiotics with infectious disease following. Case management following as patient requires insurance authorization which is currently pending. Possible discharge planning in the next 24 hours to LTAC 11/22/2024 Patient is seen in follow-up in the ICU although is a downgrade once a bed becomes available on 3 S. Insurance authorization was denied for LTAC requesting a peer to peer. Attempted to do peer to peer with multiple phone calls and insurance company reporting there was no reference number and unable to locate the denial. Will attempt to call back again with the reference number that was provided to me from the third insurance call. Patient is afebrile maintained on tracheostomy with pulmonary and infectious disease following. Orthopedics following with no plans of further surgical intervention recommending outpatient follow-up. Patient continues on trach collar with 28% FiO2. Patient needs frequent suctioning and cannulation and currently has a #6 Shiley nonfenestrated. Patient maintained on aspiration precautions with PEG tube and tolerating tube feeds thus far. Patient is significantly weak and will need extensive physical therapy on discharge. Patient was independent and ambulatory prior to this hospitalization. 11/23/2024 Patient is seen in follow-up today maintained on antibiotics with infectious disease following. Orthopedics recommending outpatient follow-up and medically stable with no further plans of surgical intervention at this time. Patient initially planning on LTAC for continued frequent suctioning and decannulation as patient did require tracheostomy and PEG tube placement. [id number] was attempted although denied recommending staying hospitalized until decannulated or possible penitentiary. Patient with case management following making other referrals to [facility] that provide tracheostomy care services. Patient will require insurance authorization for penitentiary as well and will be submitted per case management once there is an accepting facility. Patient is afebrile and white count is trending down currently at 14. Continue with aspiration precautions and monitoring PEG tube residuals closely. 11/24/2024 Patient is seen in follow-up today with no acute overnight issues noted. Patient requiring frequent suctioning via tracheostomy and continued on treatments with multiple consultations following. Infectious disease following as white count is mildly elevated with concerns of Erin will give a dose of Diflucan and continue antibiotics for now. Patient will likely not require antibiotics on discharge. Patient awaiting acceptance at an [facility] for discharge planning as patient is significantly weak and also needs continued tracheostomy care with decannulation. Patient is currently maintained on tube feeds and tolerating although per nursing staff having frequent episodes of diarrhea likely secondary to the type of tube feeding which is being adjusted by dietary. Will order C. difficile and rule out. 11/25/2024 Patient is seen in follow-up today maintained on antibiotics with infectious disease following and will continue current regimen. Patient will likely not require antibiotics on discharge. Case management following currently working on ECF as patient did not qualify for LTAC and looking into resources at provide tracheostomy care. Patient currently maintained on tracheostomy with an FiO2 of 28% and 5 L. Patient tolerating well continues with frequent suctioning needs and strongly recommend aspiration precautions. Patient tolerating tube feeds and has been adjusted per dietary as patient was having multiple episodes of diarrhea. C. difficile was tested and ruled out and will add Imodium as needed. Review of systems: Constitutional: No reports of fatigue, fever, or chills Cardiovascular: No reports of chest pain or palpitations Respiratory: No reports of worsening shortness of breath, reports discomfort with tracheostomy and requiring frequent suctioning GI: No reports of nausea, vomiting, reports of multiple episodes of loose stool : No reports of dysuria or retention Neurovascular: reports of generalized weakness All medications have been reviewed Physical Examination: GENERAL EXAM: This is a 54-year-old female, currently on tracheostomy with an FiO2 of 28% and 5 L of oxygen, well-developed, elderly appearing, thin built HEAD: Normocephalic. Normal reaction of pupils, equal size. Tracheostomy noted with no drainage on the gauze although there is significant secretions noted that required suctioning THROAT: No erythema or exudates. NECK: No masses, no JVD. CHEST: No chest wall deformity. LUNGS: Diminished breath sounds bilaterally with some scattered rhonchi and bronchial congestion noted CVS: S1 and S2 muffled ABDOMEN: No hepatosplenomegaly, normal bowel sounds, no guarding or rigidity. Peg tube in place. SPINE: No scoliosis or deformity. Surgical dressing dry and intact. SKIN: No rashes CENTRAL NERVOUS SYSTEM: No focal deficits noted, tone is normal in all 4 extremities. EXTREMITIES: There is no peripheral edema. No clubbing, no cyanosis. Peripheral pulses are intact. Assessment: -Altered mental status from acute toxic and metabolic encephalopathy with episode of unresponsive, likely related to narcotics versus sepsis, improved and at baseline -Likely aspiration pneumonia -Pseudomonas pneumonia Healthcare acquired with septic shock POA -Acute hypoxic/hypercapnic respiratory failure; as indicated above; patient remains on tracheostomy and PEG tube placement -Surgical site infection/wound dehiscence and Patient is status post surgery on 10/27/2024 for open treatment of a T8 fracture, irrigation and excisional debridement of thoracic spine wound measuring 10 x 7 x 4 cm, posterior lateral instrumented fusion of T7-T11 and cement augmentation of T8-T10 vertebral bodies; Orthopedic surgery consulted and felt the wound was noninfectious and healing well. -Leukocytosis/sepsis; continue with IV antibiotics as indicated above; patient has been pancultured, improving and trending down -Hypernatremia, improved -Diarrhea, C. difficile ruled out -History of hypertension; propranolol 20 mg twice daily has been resumed; prazosin 2 mg twice daily on hold -Macroctyic anemia -Hyperlipidemia; currently not on any statin therapy -Hypothyroidism; levothyroxine 88 mcg daily -History of CAD -Chronic heart failure with preserved EF with no acute exacerbation -History of COPD/Asthma -PTSD/Bipolar/Borderline personality -Chronic nicotine use -Polysubstance use -Rectal prolapse -Hx seizure disorder -Gastroesophageal reflux DVT prophylaxis; SCDs/subcu heparin CODE STATUS; full code Plan: -Patient was intubated and mechanically ventilated in ED. patient has been extubated and is currently on a trach collar with an FiO2 of 28% and tolerating trach collar off of the vent. Insurance was denied for LTAC and case management following as insurance requested a peer to peer. Attempted peer to peer although was denied reporting she does not meet criteria for [facility] admission recommending possible ECF with tracheostomy services. Case management is following and placing referrals which are pending. Multiple other referrals placed to [facility] and surrounding areas including [place] -Urine drug screen positive for opiates, barbiturates, tricyclic antidepressants, benzodiazepines and marijuana concern for polysubstance use, narcotics being held currently -Blood culture remain negative so far -Sputum culture revealing pseudomonas aeruginosa. x2 and will continue on Zosyn for now per ID and will give a dose of Diflucan with concerns of Erin. Patient will likely not require antibiotics on discharge. Patient has had adequate antibiotics during hospitalization -Patient has been transitioned to oral prednisone -Residuals are improved and at about 100 mls and patient continues on enteral feedings at goal and tolerating, recommend aspiration precautions and head of the bed elevated 35 to 45 degrees at all times. Patient having multiple episodes of loose stool with concerns of C. difficile and specimen was sent and negative. Likely secondary to tube feeds which is being adjusted per dietary. Will add Imodium as needed's -Antiseizure medications have been resumed; we do not carry briv[facility]act so [facility]. -Monitor electrolytes and renal function -Patient is status post 1 unit of packed red blood cells this admission with improvement in her hemoglobin -Status post PEG/Trach continue on enteral feedings. -Plan is for ECF that can accommodate respiratory care with tracheostomy on discharge. Patient will also require a new insurance authorization once there is an accepting ECF Due to multiple complex medical issues, overall prognosis is guarded The impression and plan of care has been dictated by Kristina Wells, Nurse Practitioner as directed. Dr. Dick MD I have performed a history and physical examination and medical decision making of this patient, discussed the same with the dictator, and agree with the dictators assessment and plan as written, documented as a scribe. Based on total visit time, I have performed more than 50% of this visit. Objective - Vital Signs Vital signs: Vital Signs Temp 98.0 F 11/25/24 20:00 Pulse 90 11/26/24 04:00 Resp 18 11/26/24 04:00 BP 144/72 11/26/24 04:00 Pulse Ox 96 11/26/24 04:00 FiO2 28 11/25/24 20:54 Intake & Output 11/25/24 11/26/24 11/26/24 18:59 06:59 18:59 Intake Total 100 Output Total 3850 650 Balance -3750 -650 Weight 50 kg Intake: Intake, IV Titration 100 Amount Piperacillin-Tazobactam 3 100 .375 gm In Sodium Chloride 0.9% 100 ml @ 25 mls/hr IVPB Q8HR [facility] Rx# :[id number] Oral 0 Output: Urine 3850 650 Other: Voiding Method Indwelling Catheter Indwelling Catheter # Bowel Movements 1 ABP, PAP, CO, CI - Last Documented Arterial Blood Pressure 158/76 - Labs CBC & Chem 7: 11/26/24 06:39 11/25/24 06:03 Labs: Abnormal Lab Results - Last 24 Hours (Table) 11/25/24 11/25/24 11/26/24 Range/Units 11:24 18:17 05:57 WBC (3.8-10.6) k/uL RBC (3.80-5.40) m/uL Hgb (11.4-16.0) gm/dL Hct (34.0-46.0) % MCHC (31.0-37.0) g/dL RDW (11.5-15.5) % Neutrophils # (1.3-7.7) k/uL POC Glucose (mg/dL) 157 H 134 H 140 H (70-110) mg/dL 11/26/24 Range/Units 06:39 WBC 13.3 H (3.8-10.6) k/uL RBC 2.91 L (3.80-5.40) m/uL Hgb 8.6 L (11.4-16.0) gm/dL Hct 28.7 L (34.0-46.0) % MCHC 30.1 L (31.0-37.0) g/dL RDW 18.6 H (11.5-15.5) % Neutrophils # 11.4 H (1.3-7.7) k/uL POC Glucose (mg/dL) (70-110) mg/dL
[2024-11-26 07:47] LABS: African American GFR (CKD) >90 (>60 ml/min/1.73 sqM); Anion Gap 6 mmol/L; Blood Urea Nitrogen 18 mg/dL (7-17); Calcium 8.8 mg/dL (8.4-10.2); Carbon Dioxide 25 mmol/L (22-30); Chloride 110 mmol/L (98-107); Glucose 127 mg/dL (74-99); Non-African American GFR(CKD) >90 (>60 ml/min/1.73 sqM); Potassium 3.6 mmol/L (3.5-5.1); Sodium 141 mmol/L (137-145)
[2024-11-26] MEDS: ZINC OXIDE PASTE (Z-GUARD) 1 APPLIC TOPICAL PRN (10:07)
--- NOTE | 2024-11-26 10:52 | P.PN ---
Subjective Progress Note Date: 11/26/24 The patient is seen today November 23, 2024 in follow-up on the selective care unit. She was transferred out of the intensive care unit yesterday. She is awake and alert in no acute distress. She is maintaining good O2 saturations in the 90s on 28% FiO2 via trach collar. Her tracheotomy tube is a #6 Shiley, nonfenestrated, the cuff is deflated. She is tolerating this very well. She is afebrile. Hemodynamically stable. White count 14.1. Hemoglobin 8.3. Platelets 449. Sodium 140. Potassium 3.6. Bicarb 27. BUN 21. Creatinine 0.59. Glucose 116. She remains on DuoNeb inhalations, Pulmicort and Perforomist inhalations, prednisone taper. Remains on antibiotics in the form of Zosyn per ID service. Lovenox for DVT prophylaxis. She is being nourished with vital HP at 50 cc/h. The patient is seen today November 24, 2024 in follow-up on the selective care unit. She is awake and alert in no acute distress. Resting comfortably in bed. She is maintaining good O2 saturations in the upper 90s on 28% FiO2 via trach collar. She is afebrile. Hemodynamically stable. She has received 1 unit of packed red blood cells this admission. Current hemoglobin 8.4. Platelets 415. White count 14.1. Sodium 142. Potassium 3.3. Bicarb 26. BUN 20. Creatinine 0.59. Glucose 108.` She remains on Zosyn for her Pseudomonas lung infection. Continued on DuoNeb inhalations, Pulmicort and Perforomist inhalations, prednisone. Lovenox for DVT prophylaxis. She remains on vital HP at 50 cc/h for nourishment. The patient is seen today November 25, 2024 in follow-up on the selective care unit. She is currently sitting up in bed. Awake and alert in no acute distress. She is maintaining O2 saturations in the 90s on 28% FiO2 via trach collar. Similar left basilar pleural effusion with adjacent atelectasis. She remains on Zosyn per ID service. White count 13.6. Hemoglobin 8.5. Platelets 416. Sodium 142. Potassium 3.2. Bicarb 24. BUN 18. Creatinine 0.63. Glucose 122. She remains on Pulmicort and Perforomist inhalations, DuoNeb inhalations, prednisone taper. Lovenox for DVT prophylaxis. She is continued on vital HP at 50 cc/h via PEG tube. The patient is seen today November 26, 2024 in follow-up on the selective care unit. She is awake and alert in no acute distress. Resting fairly comfortably in bed. She continues to maintain good O2 saturations in the 90s on 28% FiO2 via trach collar. She is being nourished with Jevity at 45 mL/h. White count 13.3. Hemoglobin 8.6. Platelets 378. Sodium 141. Potassium 3.6. Bicarb 25. BUN 18. Creatinine 0.67. Glucose 127. Elations, Pulmicort and performance and elations, prednisone taper. Lovenox for DVT prophylaxis. Continued on Zosyn per ID service. Objective - Vital Signs Vital signs: Vital Signs Temp 98.0 F 11/25/24 20:00 Pulse 78 11/26/24 08:28 Resp 18 11/26/24 04:00 BP 144/72 11/26/24 04:00 Pulse Ox 96 11/26/24 04:00 FiO2 28 11/26/24 08:06 Intake & Output 11/25/24 11/26/24 11/26/24 18:59 06:59 18:59 Intake Total 100 Output Total 3850 650 Balance -3750 -650 Weight 50 kg Intake: Intake, IV Titration 100 Amount Piperacillin-Tazobactam 3 100 .375 gm In Sodium Chloride 0.9% 100 ml @ 25 mls/hr IVPB Q8HR [facility] Rx# :[id number] Oral 0 Output: Urine 3850 650 Other: Voiding Method Indwelling Catheter Indwelling Catheter # Bowel Movements 1 ABP, PAP, CO, CI - Last Documented Arterial Blood Pressure 158/76 - Exam GENERAL EXAM: Awake, alert pleasant 54-year-old female, sitting up in bed, on 28% FiO2 via trach collar, in no apparent distress. HEAD: Normocephalic. EYES: Normal reaction of pupils, equal size. NOSE: Clear with pink turbinates. THROAT: Tracheostomy tube secured in place. No erythema or exudates. NECK: No masses, no JVD. CHEST: No chest wall deformity. LUNGS: Equal air entry with no crackles, wheeze, rhonchi or dullness. CVS: S1 and S2 normal with no audible murmur, regular rhythm. ABDOMEN: PEG tube exit site clean and dry. No hepatosplenomegaly, normal bowel sounds, no guarding or rigidity. SPINE: No scoliosis or deformity SKIN: No rashes CENTRAL NERVOUS SYSTEM: No noted focal deficit, tone is normal in all 4 extremities. EXTREMITIES: There is no peripheral edema. No clubbing, no cyanosis. Peripheral pulses are intact. - Labs CBC & Chem 7: 11/26/24 06:39 11/26/24 06:39 Labs: Abnormal Lab Results - Last 24 Hours (Table) 11/25/24 11/25/24 11/26/24 Range/Units 11:24 18:17 05:57 WBC (3.8-10.6) k/uL RBC (3.80-5.40) m/uL Hgb (11.4-16.0) gm/dL Hct (34.0-46.0) % MCHC (31.0-37.0) g/dL RDW (11.5-15.5) % Neutrophils # (1.3-7.7) k/uL Chloride (98-107) mmol/L BUN (7-17) mg/dL Glucose (74-99) mg/dL POC Glucose (mg/dL) 157 H 134 H 140 H (70-110) mg/dL 11/26/24 11/26/24 Range/Units 06:39 06:39 WBC 13.3 H (3.8-10.6) k/uL RBC 2.91 L (3.80-5.40) m/uL Hgb 8.6 L (11.4-16.0) gm/dL Hct 28.7 L (34.0-46.0) % MCHC 30.1 L (31.0-37.0) g/dL RDW 18.6 H (11.5-15.5) % Neutrophils # 11.4 H (1.3-7.7) k/uL Chloride 110 H (98-107) mmol/L BUN 18 H (7-17) mg/dL Glucose 127 H (74-99) mg/dL POC Glucose (mg/dL) (70-110) mg/dL Assessment and Plan Assessment: Altered mental status, obtunded requiring intubation and mechanical ventilatory support on November 06, 2024. Suspect secondary to narcotics. Urine drug screen positive for opiates, barbiturates, tricyclic antidepressants, benzodiazepines and marijuana. Subsequently had undergone tracheostomy and PEG tube placement on November 15, 2024. She has been off the mechanical ventilator since November 19, 2024 and transitioned to 28% FiO2 via trach collar Acute hypoxemic and hypercapnic respiratory failure secondary to above, positive sputum culture for Pseudomonas aeruginosa, completed Zosyn Discharge from the hospital following surgery on 10/27/2024 for open treatment of a T8 fracture, irrigation and excisional debridement of thoracic spine wound measuring 10 x 7 x 4 cm, posterior lateral instrumented fusion of T7-T11 and cement augmentation of T8-T10 vertebral bodies. Chronic obstructive pulmonary disease/asthma, currently inactive and stable T2 vertebral fracture with revision of C2-T7 posterior lateral fusion on 09/09/2024 Surgical site infection and wound dehiscence, wound and blood cultures revealed no growth Acute leukocytosis, improved Macrocytic anemia Rectal prolapse with bleeding History of hypertension History of hyperlipidemia History of coronary artery disease History of heart failure with preserved ejection fraction History of gastroesophageal reflux disease History of seizure disorder History of hypothyroidism History of anxiety/depression/PTSD Plan: The patient was seen and evaluated Labs and medications reviewed Continue DuoNeb inhalations, prednisone Continue Pulmicort and Perforomist inhalations Lovenox for DVT prophylaxis Zosyn discontinued Jevity for nutritional support Awaiting placement at [facility] or [facility] facilities in [place] This patient was seen independently by the pulmonary nurse practitioner addressing pulmonary issues I have personally seen and examined the patient, performed the documentation and the assessment and plan as written. Number of minutes spent on the visit: 23 Dictation was produced using [employer] dictation software. Please excuse any grammatical, word or spelling errors.
[2024-11-26 11:59] LABS: Glucose,Whole Blood 119 mg/dL (70-110)
--- NOTE | 2024-11-26 15:01 | P.PN ---
Subjective Progress Note Date: 11/26/24 Principal diagnosis: Reason for follow-up is pneumonia Patient is a 54-year-old female with a past medical history significant for COPD DVT hypertension hyperlipidemia who recently did have a cervical thoracic spine surgery revision for a nonhealing wound to the mid/upper back area patient cultures were negative has been brought to the hospital on the patient was found to be unresponsive requiring elevation and admission to the ICU Patient is status post tracheostomy and PEG tube placement completed on 11/15/2024. On today's evaluation that is 11/26/2024, patient did not have any fever and currently breathing comfortably on a 5 L trach collar mention not feeling well but did not elaborate further on her symptoms no other changes reported. Patient white count is 13.3, creatinine 0.67 stool for C. difficile is negative chest x-ray from 321 left basilar effusion with adjacent atelectasis pneumonia not excluded Objective - Vital Signs Vital signs: Vital Signs Temp 98.7 F 11/26/24 12:15 Pulse 89 11/26/24 12:15 Resp 18 11/26/24 13:09 BP 155/91 11/26/24 12:15 Pulse Ox 99 11/26/24 12:15 FiO2 28 11/26/24 08:06 Intake & Output 11/25/24 11/26/24 11/26/24 18:59 06:59 18:59 Intake Total 100 100 Output Total 3850 650 1000 Balance -3750 -650 -900 Weight 50 kg Intake: IV 100 Piperacillin-Tazobactam 3 100 .375 gm In Sodium Chloride 0.9% 100 ml @ 25 mls/hr IVPB Q8HR [facility] Rx# :[id number] Intake, IV Titration 100 Amount Piperacillin-Tazobactam 3 100 .375 gm In Sodium Chloride 0.9% 100 ml @ 25 mls/hr IVPB Q8HR [facility] Rx# :[id number] Oral 0 Output: Urine 3850 650 1000 Other: Voiding Method Indwelling Catheter Indwelling Catheter Indwelling Catheter # Bowel Movements 1 ABP, PAP, CO, CI - Last Documented Arterial Blood Pressure 158/76 - Exam GENERAL DESCRIPTION: Middle-age female lying in bed in no distress RESPIRATORY SYSTEM: Unlabored breathing , decreased breath sounds at bases HEART: S1 S2 regular rate and rhythm , ABDOMEN: Soft , no tenderness EXTREMITIES: No edema feet - Labs CBC & Chem 7: 11/26/24 06:39 11/26/24 06:39 Labs: Abnormal Lab Results - Last 24 Hours (Table) 11/25/24 11/26/24 11/26/24 Range/Units 18:17 05:57 06:39 WBC (3.8-10.6) k/uL RBC (3.80-5.40) m/uL Hgb (11.4-16.0) gm/dL Hct (34.0-46.0) % MCHC (31.0-37.0) g/dL RDW (11.5-15.5) % Neutrophils # (1.3-7.7) k/uL Chloride 110 H (98-107) mmol/L BUN 18 H (7-17) mg/dL Glucose 127 H (74-99) mg/dL POC Glucose (mg/dL) 134 H 140 H (70-110) mg/dL 11/26/24 11/26/24 Range/Units 06:39 11:56 WBC 13.3 H (3.8-10.6) k/uL RBC 2.91 L (3.80-5.40) m/uL Hgb 8.6 L (11.4-16.0) gm/dL Hct 28.7 L (34.0-46.0) % MCHC 30.1 L (31.0-37.0) g/dL RDW 18.6 H (11.5-15.5) % Neutrophils # 11.4 H (1.3-7.7) k/uL Chloride (98-107) mmol/L BUN (7-17) mg/dL Glucose (74-99) mg/dL POC Glucose (mg/dL) 119 H (70-110) mg/dL Assessment and Plan (1) Pneumonia Current Visit: Yes Status: Acute Code(s): J18.9 - PNEUMONIA, UNSPECIFIED ORGANISM SNOMED Code(s): 442500266 (2) Abnormal CT scan, chest Current Visit: Yes Status: Acute Code(s): R93.89 - ABNORMAL FINDINGS ON DX IMAGING OF OTH BODY STRUCTURES SNOMED Code(s): 34762749440852508 (3) Leukocytosis Current Visit: No Status: Acute Code(s): D72.829 - ELEVATED WHITE BLOOD CELL COUNT, UNSPECIFIED SNOMED Code(s): 369927977 Plan: 1patient presented to hospital after the patient was found to be unresponsive at home concerning for possible drug overdose also noted to have significant finding on a chest x-ray and the CT concerning for possible pneumonia question of aspiration etiology in this patient has been around the hospital concerning for possible resistant gram-positive as well as gram-negative pathogen, 2-patient did have Pseudomonas aeruginosa in the sputum concerning for pneumonia possible aspiration, 3patient is afebrile white count is trending down question of possible oropharyngeal candidiasis versus steroid related with the white count trending down with the Diflucan that will be continued x-ray still showing a left basilar atelectasis and pneumonia may continue Zosyn while inpatient Dictation was produced using [employer] dictation software. please excuse any grammatical, word or spelling errors. Time with Patient: Less than 30
--- NOTE | 2024-11-26 17:53 | PN ---
PROGRESS NOTE DATE OF SERVICE: 11/24/2024 SUBJECTIVE: This is a 54-year-old woman was admitted with aspiration pneumonia, had tracheostomy, awaiting ECF placement. No chest pain. No palpitation. PHYSICAL EXAMINATION: VITAL SIGNS: Pulse 89, blood pressure 130/50, respirations 18. CHEST: Few scattered rhonchi and crackles. ABDOMEN: Soft. NERVOUS SYSTEM: Nonfocal. LABORATORY DATA: Reviewed. ASSESSMENT: 1. Aspiration pneumonia, status post mechanical ventilation. 2. Status post tracheostomy. 3. Multiple complex medical issues. RECOMMENDATIONS: Continue current management and symptomatic treatment. Repeat labs. Otherwise, I would recommend social sciences professor evaluation for possible ECF rehab for frequent suctions and other issues. MMODL / IJN: [id number] /
[2024-11-26 18:21] LABS: Glucose,Whole Blood 134 mg/dL (70-110)
[2024-11-27 00:40] LABS: Glucose,Whole Blood 139 mg/dL (70-110)
[2024-11-27 05:58] LABS: Glucose,Whole Blood 118 mg/dL (70-110)
[2024-11-27 07:35] LABS: Anisocytosis Slight; Basophils % (A) 0 %; Eosinophils # (A) 0.2 k/uL (0-0.7); Eosinophils % (A) 2 %; HCT 26.8 % (34.0-46.0); HGB 8.3 gm/dL (11.4-16.0); Hypochromasia Marked; Lymphocytes # (A) 1.1 k/uL (1.0-4.8); Lymphocytes % (A) 9 %; MCH 30.2 pg (25.0-35.0); MCHC 31.1 g/dL (31.0-37.0); Macrocytosis Slight; Mean Platelet Volume 7.5; Monocytes # (A) 0.4 k/uL (0-1.0); Monocytes % (A) 4 %; Neutrophils # (A) 9.9 k/uL (1.3-7.7); Neutrophils % (A) 84 %; Platelet Count 365 k/uL (150-450); RBC 2.76 m/uL (3.80-5.40); RDW 18.4 % (11.5-15.5); WBC 11.9 k/uL (3.8-10.6)
[2024-11-27 07:46] LABS: African American GFR (CKD) >90 (>60 ml/min/1.73 sqM); Anion Gap 5 mmol/L; Blood Urea Nitrogen 18 mg/dL (7-17); Calcium 8.8 mg/dL (8.4-10.2); Carbon Dioxide 25 mmol/L (22-30); Chloride 112 mmol/L (98-107); Glucose 105 mg/dL (74-99); Non-African American GFR(CKD) >90 (>60 ml/min/1.73 sqM); Potassium 3.5 mmol/L (3.5-5.1); Sodium 142 mmol/L (137-145)
[2024-11-27] MEDS: POTASSIUM BICARBONATE/CIT AC 20 MEQ TABLET.EFF NG-TUBE SCH (09:32)
--- NOTE | 2024-11-27 11:39 | P.PN ---
Subjective Progress Note Date: 11/27/24 The patient is seen today November 23, 2024 in follow-up on the selective care unit. She was transferred out of the intensive care unit yesterday. She is awake and alert in no acute distress. She is maintaining good O2 saturations in the 90s on 28% FiO2 via trach collar. Her tracheotomy tube is a #6 Shiley, nonfenestrated, the cuff is deflated. She is tolerating this very well. She is afebrile. Hemodynamically stable. White count 14.1. Hemoglobin 8.3. Platelets 449. Sodium 140. Potassium 3.6. Bicarb 27. BUN 21. Creatinine 0.59. Glucose 116. She remains on DuoNeb inhalations, Pulmicort and Perforomist inhalations, prednisone taper. Remains on antibiotics in the form of Zosyn per ID service. Lovenox for DVT prophylaxis. She is being nourished with vital HP at 50 cc/h. The patient is seen today November 24, 2024 in follow-up on the selective care unit. She is awake and alert in no acute distress. Resting comfortably in bed. She is maintaining good O2 saturations in the upper 90s on 28% FiO2 via trach collar. She is afebrile. Hemodynamically stable. She has received 1 unit of packed red blood cells this admission. Current hemoglobin 8.4. Platelets 415. White count 14.1. Sodium 142. Potassium 3.3. Bicarb 26. BUN 20. Creatinine 0.59. Glucose 108.` She remains on Zosyn for her Pseudomonas lung infection. Continued on DuoNeb inhalations, Pulmicort and Perforomist inhalations, prednisone. Lovenox for DVT prophylaxis. She remains on vital HP at 50 cc/h for nourishment. The patient is seen today November 25, 2024 in follow-up on the selective care unit. She is currently sitting up in bed. Awake and alert in no acute distress. She is maintaining O2 saturations in the 90s on 28% FiO2 via trach collar. Similar left basilar pleural effusion with adjacent atelectasis. She remains on Zosyn per ID service. White count 13.6. Hemoglobin 8.5. Platelets 416. Sodium 142. Potassium 3.2. Bicarb 24. BUN 18. Creatinine 0.63. Glucose 122. She remains on Pulmicort and Perforomist inhalations, DuoNeb inhalations, prednisone taper. Lovenox for DVT prophylaxis. She is continued on vital HP at 50 cc/h via PEG tube. The patient is seen today November 26, 2024 in follow-up on the selective care unit. She is awake and alert in no acute distress. Resting fairly comfortably in bed. She continues to maintain good O2 saturations in the 90s on 28% FiO2 via trach collar. She is being nourished with Jevity at 45 mL/h. White count 13.3. Hemoglobin 8.6. Platelets 378. Sodium 141. Potassium 3.6. Bicarb 25. BUN 18. Creatinine 0.67. Glucose 127. Elations, Pulmicort and performance and elations, prednisone taper. Lovenox for DVT prophylaxis. Continued on Zosyn per ID service. The patient is seen today November 27, 2024 in follow-up on the selective care unit. She is currently sitting up in a chair. Awake and alert in no acute distress. Denies any worsening shortness of breath, cough or congestion. She is maintaining good O2 saturations in the 90s on 28% trach collar. She is afebrile. Hemodynamically stable. She is being nourished with Jevity tube feedings at 45 mL/h. She is continued on DuoNeb inhalations, Pulmicort and Perforomist inhalations, Singulair, prednisone taper. Lovenox for DVT prophylaxis. White count 11.9. Hemoglobin 8.3. Platelets 365. Sodium 142. Potassium 3.5. Bicarb 25. BUN 18. Creatinine 0.62. Glucose 105. Objective - Vital Signs Vital signs: Vital Signs Temp 98.1 F 11/27/24 08:30 Pulse 82 11/27/24 08:42 Resp 16 11/27/24 08:30 BP 155/84 11/27/24 08:30 Pulse Ox 100 11/27/24 08:30 FiO2 28 11/26/24 08:06 Intake & Output 11/26/24 11/27/24 11/27/24 18:59 06:59 18:59 Intake Total 595 Output Total 5670 850 Balance -855 -850 Weight 49 kg Intake: IV 100 Piperacillin-Tazobactam 3 100 .375 gm In Sodium Chloride 0.9% 100 ml @ 25 mls/hr IVPB Q8HR [facility] Rx# :[id number] Tube Feeding 495 Output: Urine 1450 850 Other: Voiding Method Indwelling Catheter Indwelling Catheter Indwelling Catheter # Voids 1 ABP, PAP, CO, CI - Last Documented Arterial Blood Pressure 158/76 - Exam GENERAL EXAM: Awake, pleasant 54-year-old female, sitting up in a chair at the bedside, on 28% FiO2 via trach collar, in no apparent distress. HEAD: Normocephalic. EYES: Normal reaction of pupils, equal size. NOSE: Clear with pink turbinates. THROAT: Tracheostomy tube secured in place. No erythema or exudates. NECK: No masses, no JVD. CHEST: No chest wall deformity. LUNGS: Equal air entry with no crackles, wheeze, rhonchi or dullness. CVS: S1 and S2 normal with no audible murmur, regular rhythm. ABDOMEN: PEG tube exit site clean and dry. No hepatosplenomegaly, normal bowel sounds, no guarding or rigidity. SPINE: No scoliosis or deformity SKIN: No rashes CENTRAL NERVOUS SYSTEM: No noted focal deficit, tone is normal in all 4 extremities. EXTREMITIES: There is no peripheral edema. No clubbing, no cyanosis. Peripheral pulses are intact. - Labs CBC & Chem 7: 11/27/24 06:55 11/27/24 06:55 Labs: Abnormal Lab Results - Last 24 Hours (Table) 11/26/24 11/26/24 11/27/24 Range/Units 11:56 18:19 00:37 WBC (3.8-10.6) k/uL RBC (3.80-5.40) m/uL Hgb (11.4-16.0) gm/dL Hct (34.0-46.0) % RDW (11.5-15.5) % Neutrophils # (1.3-7.7) k/uL Chloride (98-107) mmol/L BUN (7-17) mg/dL Glucose (74-99) mg/dL POC Glucose (mg/dL) 119 H 134 H 139 H (70-110) mg/dL 11/27/24 11/27/24 11/27/24 Range/Units 05:56 06:55 06:55 WBC 11.9 H (3.8-10.6) k/uL RBC 2.76 L (3.80-5.40) m/uL Hgb 8.3 L (11.4-16.0) gm/dL Hct 26.8 L (34.0-46.0) % RDW 18.4 H (11.5-15.5) % Neutrophils # 9.9 H (1.3-7.7) k/uL Chloride 112 H (98-107) mmol/L BUN 18 H (7-17) mg/dL Glucose 105 H (74-99) mg/dL POC Glucose (mg/dL) 118 H (70-110) mg/dL Assessment and Plan Assessment: Altered mental status, obtunded requiring intubation and mechanical ventilatory support on November 06, 2024. Suspect secondary to narcotics. Urine drug screen positive for opiates, barbiturates, tricyclic antidepressants, benzodiazepines and marijuana. Subsequently had undergone tracheostomy and PEG tube placement on November 15, 2024. She has been off the mechanical ventilator since November 19, 2024 and transitioned to 28% FiO2 via trach collar Acute hypoxemic and hypercapnic respiratory failure secondary to above, positive sputum culture for Pseudomonas aeruginosa, completed Zosyn Discharge from the hospital following surgery on 10/27/2024 for open treatment of a T8 fracture, irrigation and excisional debridement of thoracic spine wound measuring 10 x 7 x 4 cm, posterior lateral instrumented fusion of T7-T11 and cement augmentation of T8-T10 vertebral bodies. Chronic obstructive pulmonary disease/asthma, currently inactive and stable T2 vertebral fracture with revision of C2-T7 posterior lateral fusion on 09/09/2024 Surgical site infection and wound dehiscence, wound and blood cultures revealed no growth Acute leukocytosis, improved Macrocytic anemia Rectal prolapse with bleeding History of hypertension History of hyperlipidemia History of coronary artery disease History of heart failure with preserved ejection fraction History of gastroesophageal reflux disease History of seizure disorder History of hypothyroidism History of anxiety/depression/PTSD Plan: The patient was seen and evaluated Labs and medications reviewed Continue DuoNeb inhalations Continue a prednisone taper Continue Pulmicort and Perforomist inhalations Lovenox for DVT prophylaxis Jevity for nutritional support Awaiting placement at a subacute rehabilitation facility This patient was seen independently by the pulmonary nurse practitioner addressing pulmonary issues I have personally seen and examined the patient, performed the documentation and the assessment and plan as written. Number of minutes spent on the visit: 24 Dictation was produced using [employer] dictation software. Please excuse any grammatical, word or spelling errors.
[2024-11-27 12:13] LABS: Glucose,Whole Blood 157 mg/dL (70-110)
--- NOTE | 2024-11-27 15:22 | P.PN ---
Subjective Progress Note Date: 11/27/24 Principal diagnosis: Reason for follow-up is pneumonia Patient is a 54-year-old female with a past medical history significant for COPD DVT hypertension hyperlipidemia who recently did have a cervical thoracic spine surgery revision for a nonhealing wound to the mid/upper back area patient cultures were negative has been brought to the hospital on the patient was found to be unresponsive requiring elevation and admission to the ICU Patient is status post tracheostomy and PEG tube placement completed on 11/15/2024. On today's evaluation that is 11/27/2024, Patient is afebrile patient is currently on 5 L trach collar oxygen is breathing comfortably denies any chest pain did have a cough no nausea vomiting abdominal pain want to eat. Patient white count is down to 11.9 creatinine 0.62 Objective - Vital Signs Vital signs: Vital Signs Temp 97.7 F 11/27/24 11:40 Pulse 94 11/27/24 11:40 Resp 16 11/27/24 11:40 BP 159/95 11/27/24 11:40 Pulse Ox 98 11/27/24 11:40 FiO2 28 11/26/24 08:06 Intake & Output 11/26/24 11/27/24 11/27/24 18:59 06:59 18:59 Intake Total 595 300 Output Total 1450 850 800 Balance -855 -850 -500 Weight 49 kg Intake: IV 100 Piperacillin-Tazobactam 3 100 .375 gm In Sodium Chloride 0.9% 100 ml @ 25 mls/hr IVPB Q8HR [facility] Rx# :[id number] Tube Feeding 495 300 Output: Urine 1450 850 800 Other: Voiding Method Indwelling Catheter Indwelling Catheter Indwelling Catheter # Voids 1 # Bowel Movements 2 ABP, PAP, CO, CI - Last Documented Arterial Blood Pressure 158/76 - Exam GENERAL DESCRIPTION: Middle-age female lying in bed in no distress RESPIRATORY SYSTEM: Unlabored breathing , decreased breath sounds at bases HEART: S1 S2 regular rate and rhythm , ABDOMEN: Soft , no tenderness EXTREMITIES: No edema feet - Labs CBC & Chem 7: 11/27/24 06:55 11/27/24 06:55 Labs: Abnormal Lab Results - Last 24 Hours (Table) 11/26/24 11/27/24 11/27/24 Range/Units 18:19 00:37 05:56 WBC (3.8-10.6) k/uL RBC (3.80-5.40) m/uL Hgb (11.4-16.0) gm/dL Hct (34.0-46.0) % RDW (11.5-15.5) % Neutrophils # (1.3-7.7) k/uL Chloride (98-107) mmol/L BUN (7-17) mg/dL Glucose (74-99) mg/dL POC Glucose (mg/dL) 134 H 139 H 118 H (70-110) mg/dL 11/27/24 11/27/24 11/27/24 Range/Units 06:55 06:55 12:11 WBC 11.9 H (3.8-10.6) k/uL RBC 2.76 L (3.80-5.40) m/uL Hgb 8.3 L (11.4-16.0) gm/dL Hct 26.8 L (34.0-46.0) % RDW 18.4 H (11.5-15.5) % Neutrophils # 9.9 H (1.3-7.7) k/uL Chloride 112 H (98-107) mmol/L BUN 18 H (7-17) mg/dL Glucose 105 H (74-99) mg/dL POC Glucose (mg/dL) 157 H (70-110) mg/dL Assessment and Plan (1) Pneumonia Current Visit: Yes Status: Acute Code(s): J18.9 - PNEUMONIA, UNSPECIFIED ORGANISM SNOMED Code(s): 241021701 (2) Abnormal CT scan, chest Current Visit: Yes Status: Acute Code(s): R93.89 - ABNORMAL FINDINGS ON DX IMAGING OF OTH BODY STRUCTURES SNOMED Code(s): 83978133916493956 (3) Leukocytosis Current Visit: No Status: Acute Code(s): D72.829 - ELEVATED WHITE BLOOD CELL COUNT, UNSPECIFIED SNOMED Code(s): 691958008 Plan: 1patient presented to hospital after the patient was found to be unresponsive at home concerning for possible drug overdose also noted to have significant finding on a chest x-ray and the CT concerning for possible pneumonia question of aspiration etiology in this patient has been around the hospital concerning for possible resistant gram-positive as well as gram-negative pathogen, 2-patient did have Pseudomonas aeruginosa in the sputum concerning for pneumonia possible aspiration, for which the patient has received adequate Zosyn therapy 3patient is afebrile white count is down to 11,000 continue with the Diflucan Zosyn has been discontinued Dictation was produced using [employer] software. please excuse any grammatical, word or spelling errors. Time with Patient: Less than 30
[2024-11-27 19:08] LABS: Glucose,Whole Blood 106 mg/dL (70-110)
--- NOTE | 2024-11-27 22:15 | PN ---
PROGRESS NOTE DATE OF SERVICE: 11/27/2024 SUBJECTIVE: This 54-year-old woman was admitted with aspiration pneumonia and mechanical ventilation, is awaiting ECF placement. No chest pain. No palpitation. EXAM: VITAL SIGNS: Pulse 94, blood pressure 150/95, respiratory rate . CHEST: A few scattered rhonchi and crackles. NECK: Tracheostomy. ABDOMEN: Soft. LABORATORY DATA: WBC 11.9, rest of the labs are noted. ASSESSMENT: 1. Aspiration pneumonia, status post mechanical ventilation. 2. Tracheostomy. 3. Multiple complex medical issues. RECOMMENDATIONS: Recommend to continue current management, continue symptomatic treatment. Await ECF. Frequent tracheal suctioning can be performed. Further recommendations to follow. Refer to previous chart. MMODL / IJN: [id number] /
[2024-11-27 23:15] LABS: Glucose,Whole Blood 108 mg/dL (70-110)
[2024-11-28 05:49] LABS: Glucose,Whole Blood 122 mg/dL (70-110)
[2024-11-28] MEDS: predniSONE 20 MG TAB PO SCH (09:14)
[2024-11-28 12:03] LABS: Glucose,Whole Blood 138 mg/dL (70-110)
--- NOTE | 2024-11-28 15:14 | P.PN ---
Subjective Progress Note Date: 11/28/24 Principal diagnosis: Respiratory failure. The patient is seen today November 23, 2024 in follow-up on the selective care unit. She was transferred out of the intensive care unit yesterday. She is awake and alert in no acute distress. She is maintaining good O2 saturations in the 90s on 28% FiO2 via trach collar. Her tracheotomy tube is a #6 Shiley, nonfenestrated, the cuff is deflated. She is tolerating this very well. She is afebrile. Hemodynamically stable. White count 14.1. Hemoglobin 8.3. Platelets 449. Sodium 140. Potassium 3.6. Bicarb 27. BUN 21. Creatinine 0.59. Glucose 116. She remains on DuoNeb inhalations, Pulmicort and Perforomist inhalations, prednisone taper. Remains on antibiotics in the form of Zosyn per ID service. Lovenox for DVT prophylaxis. She is being nourished with vital HP at 50 cc/h. The patient is seen today November 24, 2024 in follow-up on the selective care unit. She is awake and alert in no acute distress. Resting comfortably in bed. She is maintaining good O2 saturations in the upper 90s on 28% FiO2 via trach collar. She is afebrile. Hemodynamically stable. She has received 1 unit of packed red blood cells this admission. Current hemoglobin 8.4. Platelets 415. White count 14.1. Sodium 142. Potassium 3.3. Bicarb 26. BUN 20. Creatinine 0.59. Glucose 108.` She remains on Zosyn for her Pseudomonas lung infection. Continued on DuoNeb inhalations, Pulmicort and Perforomist inhalations, prednisone. Lovenox for DVT prophylaxis. She remains on vital HP at 50 cc/h for nourishment. The patient is seen today November 25, 2024 in follow-up on the selective care unit. She is currently sitting up in bed. Awake and alert in no acute distress. She is maintaining O2 saturations in the 90s on 28% FiO2 via trach collar. Similar left basilar pleural effusion with adjacent atelectasis. She remains on Zosyn per ID service. White count 13.6. Hemoglobin 8.5. Platelets 416. Sodium 142. Potassium 3.2. Bicarb 24. BUN 18. Creatinine 0.63. Glucose 122. She remains on Pulmicort and Perforomist inhalations, DuoNeb inhalations, prednisone taper. Lovenox for DVT prophylaxis. She is continued on vital HP at 50 cc/h via PEG tube. The patient is seen today November 26, 2024 in follow-up on the selective care unit. She is awake and alert in no acute distress. Resting fairly comfortably in bed. She continues to maintain good O2 saturations in the 90s on 28% FiO2 via trach collar. She is being nourished with Jevity at 45 mL/h. White count 13.3. Hemoglobin 8.6. Platelets 378. Sodium 141. Potassium 3.6. Bicarb 25. BUN 18. Creatinine 0.67. Glucose 127. Elations, Pulmicort and performance and elations, prednisone taper. Lovenox for DVT prophylaxis. Continued on Zosyn per ID service. The patient is seen today November 27, 2024 in follow-up on the selective care unit. She is currently sitting up in a chair. Awake and alert in no acute distress. Denies any worsening shortness of breath, cough or congestion. She is maintaining good O2 saturations in the 90s on 28% trach collar. She is afebrile. Hemodynamically stable. She is being nourished with Jevity tube feedings at 45 mL/h. She is continued on DuoNeb inhalations, Pulmicort and Perforomist inhalations, Singulair, prednisone taper. Lovenox for DVT prophylaxis. White count 11.9. Hemoglobin 8.3. Platelets 365. Sodium 142. Potassium 3.5. Bicarb 25. BUN 18. Creatinine 0.62. Glucose 105. Progress note dated November 28, 2024. 54-year-old female who is seen today in room 381. The patient has not been in the hospital for 22 days. She is status post tracheostomy and PEG tube placement on November 15, for respiratory failure and failure to wean from mechanical ventilation. Currently, she is on a 28% trach collar. Clinically, she appears relatively stable although she does appear weak. She is in no acute distress. No new laboratory data from today other than a glucose of 138. From November 07 and from November 08, sputum show evidence of Pseudomonas aeruginosa. No recent chest x-ray. Objective - Vital Signs Vital signs: Vital Signs Temp 98.7 F 11/28/24 08:00 Pulse 89 11/28/24 14:00 Resp 18 11/28/24 14:00 BP 155/98 11/28/24 12:00 Pulse Ox 100 11/28/24 12:00 FiO2 28 11/28/24 09:38 Intake & Output 11/27/24 11/28/24 11/28/24 18:59 06:59 18:59 Intake Total 600 Output Total 800 1300 Balance -200 -1300 Weight 44.5 kg 44.5 kg Intake: Tube Feeding 600 Output: Urine 800 1300 Other: Voiding Method Indwelling Catheter Indwelling Catheter Indwelling Catheter # Bowel Movements 2 1 ABP, PAP, CO, CI - Last Documented Arterial Blood Pressure 158/76 - Exam No acute distress, oriented 3. HEENT examination is grossly unremarkable. Mucous membranes are moist. No oral lesions. Neck supple. Full range of motion. No adenopathy thyromegaly or neck vein distention. The patient has a midline tracheostomy. A 28% trach collar is noted. Cardiovascular examination reveals regular rhythm rate. S1-S2 normal. No S3 or S4. No discernible murmur noted. Heart sounds are distant. Lungs reveal clear breath sounds. Breath sounds are equal bilaterally. No adventitious lung sounds including wheezes rhonchi or crackles. Abdomen soft bowel sounds are heard. No masses or tenderness. Extremities are intact. No cyanosis clubbing or edema. Skin is without rash or lesion. Neurologic examination is brief but nonfocal. - Labs CBC & Chem 7: 11/27/24 06:55 11/27/24 06:55 Labs: Abnormal Lab Results - Last 24 Hours (Table) 11/28/24 11/28/24 Range/Units 05:48 12:01 POC Glucose (mg/dL) 122 H 138 H (70-110) mg/dL Assessment and Plan Assessment: Altered mental status, obtunded requiring intubation and mechanical ventilatory support on November 06, 2024. Suspect secondary to narcotics. Urine drug screen positive for opiates, barbiturates, tricyclic antidepressants, benzodiazepines and marijuana. Subsequently had undergone tracheostomy and PEG tube placement on November 15, 2024. She has been off the mechanical ventilator since November 19, 2024 and transitioned to 28% FiO2 via trach collar. Acute hypoxemic and hypercapnic respiratory failure secondary to above, positive sputum culture for Pseudomonas aeruginosa. Discharge from the hospital following surgery on 10/27/2024 for open treatment of a T8 fracture, irrigation and excisional debridement of thoracic spine wound measuring 10 x 7 x 4 cm, posterior lateral instrumented fusion of T7-T11 and cement augmentation of T8-T10 vertebral bodies. Chronic obstructive pulmonary disease/asthma. T2 vertebral fracture with revision of C2-T7 posterior lateral fusion on 09/09/2024. . Surgical site infection and wound dehiscence. Acute leukocytosis, improved. Macrocytic anemia. Rectal prolapse with bleeding. History of hypertension. History of hyperlipidemia. History of coronary artery disease. History of heart failure with preserved ejection fraction. History of gastroesophageal reflux disease. History of seizure disorder. History of hypothyroidism. History of anxiety/depression/PTSD. Plan: Plan dated November 28, 2024. The patient was seen today in room 381. She continues on updraft treatments, and a prednisone taper. She also continues on Pulmicort, and formoterol. She continues on both GI and DVT prophylaxis. She has a tracheostomy tube at the midline. She is on a 28% trach collar. She is getting [facility] for nutritional support. The patient is apparently going to be discharged to subacute rehab. Labs, x-rays, medications are reviewed. We will continue to follow. Prognosis is guarded. She remains a full code. Time with Patient: Less than 30
--- NOTE | 2024-11-28 16:56 | P.PN ---
Subjective Progress Note Date: 11/28/24 Principal diagnosis: Reason for follow-up is pneumonia Patient is a 54-year-old female with a past medical history significant for COPD DVT hypertension hyperlipidemia who recently did have a cervical thoracic spine surgery revision for a nonhealing wound to the mid/upper back area patient cultures were negative has been brought to the hospital on the patient was found to be unresponsive requiring elevation and admission to the ICU Patient is status post tracheostomy and PEG tube placement completed on 11/15/2024. On today's evaluation that is 11/28/2024, patient has been afebrile, patient is breathing comfortably and is currently on 5 L trach collar patient has been complaining of some cough and chest pain nausea but no vomiting and no diarrhea. No new lab has been repeated today Objective - Vital Signs Vital signs: Vital Signs Temp 98.7 F 11/28/24 08:00 Pulse 84 11/28/24 13:01 Resp 18 11/28/24 12:00 BP 155/98 11/28/24 12:00 Pulse Ox 100 11/28/24 12:00 FiO2 28 11/28/24 09:38 Intake & Output 11/27/24 11/28/24 11/28/24 18:59 06:59 18:59 Intake Total 600 Output Total 800 1300 Balance -200 -1300 Weight 44.5 kg 44.5 kg Intake: Tube Feeding 600 Output: Urine 800 1300 Other: Voiding Method Indwelling Catheter Indwelling Catheter Indwelling Catheter # Bowel Movements 2 1 ABP, PAP, CO, CI - Last Documented Arterial Blood Pressure 158/76 - Exam GENERAL DESCRIPTION: Middle-age female lying in bed in no distress RESPIRATORY SYSTEM: Unlabored breathing , decreased breath sounds at bases HEART: S1 S2 regular rate and rhythm , ABDOMEN: Soft , no tenderness EXTREMITIES: No edema feet - Labs CBC & Chem 7: 11/27/24 06:55 11/27/24 06:55 Labs: Abnormal Lab Results - Last 24 Hours (Table) 11/28/24 11/28/24 Range/Units 05:48 12:01 POC Glucose (mg/dL) 122 H 138 H (70-110) mg/dL Assessment and Plan (1) Pneumonia Current Visit: Yes Status: Acute Code(s): J18.9 - PNEUMONIA, UNSPECIFIED ORGANISM SNOMED Code(s): 237069184 (2) Abnormal CT scan, chest Current Visit: Yes Status: Acute Code(s): R93.89 - ABNORMAL FINDINGS ON DX IMAGING OF OTH BODY STRUCTURES SNOMED Code(s): 13762043475365780 (3) Leukocytosis Current Visit: No Status: Acute Code(s): D72.829 - ELEVATED WHITE BLOOD CELL COUNT, UNSPECIFIED SNOMED Code(s): 090842399 Plan: 1patient presented to hospital after the patient was found to be unresponsive at home concerning for possible drug overdose also noted to have significant finding on a chest x-ray and the CT concerning for possible pneumonia question of aspiration etiology in this patient has been around the hospital concerning for possible resistant gram-positive as well as gram-negative pathogen, 2-patient did have Pseudomonas aeruginosa in the sputum concerning for pneumonia possible aspiration, for which the patient has received adequate Zosyn therapy 3patient is afebrile white count is down to 11,000 as of yesterday, no CBC has been done today patient to continue with the Diflucan and monitor clinical course closely Dictation was produced using [employer] dictation software. please excuse any grammatical, word or spelling errors. Time with Patient: Less than 30
[2024-11-28 18:08] LABS: Glucose,Whole Blood 115 mg/dL (70-110)
--- NOTE | 2024-11-29 04:58 | P.PN ---
Subjective Progress Note Date: 11/28/24 Patient is evaluated today in follow up in the intensive care unit. Patient remains intubated on the mechanical ventilator with PEEP of 5 and FiO2 of 40%. Patient remains sedated. LFTs remain elevated, white blood cell count up to 38. Blood culture pending. Patient continues on IV Vancomycin and IV cefepime. ID following. Chest xray today reveals stable upper lobe interstitial opacities. Spinal surgery evaluated the patient felt the wound was noninfectious and healing well. Patients heart rate has been in the 120s was resumed on home medication of propanolol and has had improvement in the heart rate down to the 80s this afternoon. 11/08/2024 Patient is evaluated today in follow up in the ICU. Remains intubated and sedated on the mechanical ventilator with settings at PEEP of 5 and 40% FiO2. C hest xray today reveals interstitial opacities correlating for atypical pneumonia. There is extensive fixation hardware throughout the spine. White blood cell count of 18.7, hgb 7.0, MCV 105.6. Magnesium 1.2, potassium 3.3. Remains on IV cefepime, IV vancomycin. Has been started on systemic steroids. Patient with low grade temp of 99.8 today. Blood pressure low/normal. 11/09/2024 Patient is evaluated in the Intensive care unit, family at the bedside. Patient remains on the mechanical ventilator with PEEP of 5, FiO2 of 40%. Not ready for weaning today. Chest xray reveals interstitial opacities of the lungs correlate for atypical pneumonia. Sputum positive for pseudomonas. Patient remains on IV Cefepime. Also on IV solumedrol. Patient is sedated with propofol. Normal saline is running at 75 mls/hr. White blood cell count 17.9, hgb 8.1. Sodium 145, potassium 4.1, BUN 23, creatinine 0.67. Patient with low grade temp 99 axillary. 11/10/2024 Patient evaluated today in the intensive care unit. She remains sedated and intubated on mechanical ventilator settings of PEEP of 5 with FiO2 40%. She is awake and alert although her eyes are not tracking. She does remain on propofol. Chest x-ray today reveals interstitial opacities of the lungs are unchanged. Sputum culture shows Pseudomonas x 2. Her labs today reveal a white blood cell count of 18.2, hemoglobin 8.6, platelet count of 625, sodium of 145, potassium 3.8, BUN of 26, creatinine of 0.73, magnesium 2.1. Her blood glucose is controlled. She is having some residuals with the enteral feedings per the nurse they have been decreased to 20 mL/h and will monitor the residuals closely. Patient continues on IV cefepime IV Solu-Medrol. She is sedated with IV propofol she is on normal saline at 75 mL/h. Pulmonary is considering this patient for tracheostomy and PEG tube placement 11/11/2024 Patient evaluated in the ICU patient is unable to be weaned and continues to become agitated when weaning off the propofol. Residuals are better today and tube feeds up to 30 mls/hr and she is having bowel movements. Antibiotics have been transitioned to IV zosyn. ID following closely. Labs today reveal white blood cell count 19.2, hgb 8.3, sodium 144, potassium 4.0, BUN 27, creatinine 0.66. Chest xray today reveals stable findings. 11/14/2024 Patient is evaluated today in the intensive care unit. No family able to bring patients briviact up to the hospital so she has been started on oral keppra. Continues to be sedated and intubated on the mechanical ventilator. Chest xray today reveals no new acute pulmonary process. Hemoglobin 6.4 today and patient scheduled to receive 1 unit of PRBC. White blood cell count down to 12.7. Sodium 147, potassium 3.3., BUN 26, creatinine 0.69. General surgery was consulted for PEG/Trach. 11/15/2024 Patient is evaluated in follow-up remains in the ICU she is sedated and intubat ed; on the mechanical ventilator with an FiO2 of 40% PEEP of 5. Patient will be going for trach and PEG tube placement. Chest x-ray today reveals no acute new pulmonary process. White blood cell count is 21.9, hemoglobin 8.7, sodium of 147 potassium 3.8, BUN 22 creatinine 0.64 magnesium 1.9. 11/16/2024 Patient is evaluated in follow-up remains in the intensive care unit. Patient is currently sedated with propofol she is currently intubated on mechanical ventilator with a FiO2 of 40% and a PEEP of 5. Patient underwent tracheostomy and PEG tube placement yesterday. Chest x-ray reveals no new acute process. Improved bilateral interstitial edema noted. Patient to be started on oral [place] today. She continues on IV Zosyn. Her labs reveal a white blood cell count of 16.6, hemoglobin 8.7, sodium of 140, potassium 3.6, creatinine 0.64. 11/17/2024 Patient evaluated in the ICU. Remains on the mechanical ventilator intubated. Awake alert and following some commands. Status post tracheostomy and PEG tube placement. Labs today 15.9, hgb 8.6, sodium 139, potassium 3.2, BUN 18, creatin ine 0.67. 11/18/2024 Patient evaluated today in the ICU and remains on the mechanical ventilator i ntubated. Patient is awake alert following simple commands. Diffusely weak. She is currently off sedation. Patient is status post tracheostomy and PEG tube placement. Continues on enteral feedings. Patient will continue on Vital 1.2 with goal of 50 mls/hr. 11/19/2024 Patient evaluated in the intensive care unit she is status post trach and PEG tube placement. She is off the propofol awake alert and oriented she states that she is scared in regards to the tracheostomy tube. Her chest x-ray today reveals persistent small left pleural effusion with associated basilar infiltrate and or atelectasis. Her labs reveal a white blood cell count of 14.8, hemoglobin 8.6, sodium of 141 potassium of 3.4, BUN of 25 creatinine of 0.67. 11/20/2024 Patient is evaluated in follow-up in intensive care unit. Patient is status post tracheostomy and PEG tube placement. Patient has been on the trach collar overnight and doing well. She is off the mechanical ventilator at this time. Patient is awake alert oriented following commands. Patient will be moved out of the intensive care unit when a bed is available. Her chest x-ray today reveals persistent small pleural effusion with associated bibasilar infiltrate and/or atelectasis. labs today reveal a white blood cell count of 14.2, hemoglobin 8.4, sodium of 142, potassium 3.6, BUN of 25 creatinine 0.61 magnesium level of 1.9. 11/21/2024 Patient is seen in follow-up today continues in the ICU on tracheostomy and PEG tube. Patient is continued on trach collar with pulmonary field insurance sales manager following and working on transferring [facility] for continued ongoing care. White count remains elevated and patient is maintained on antibiotics with infectious disease following. Case management following as patient requires insurance authorization which is currently pending. Possible discharge planning in the next 24 hours to LTAC 11/22/2024 Patient is seen in follow-up in the ICU although is a downgrade once a bed becomes available on 3 S. Insurance authorization was denied for LTAC requesting a peer to peer. Attempted to do peer to peer with multiple phone calls and insurance company reporting there was no reference number and unable to locate the denial. Will attempt to call back again with the reference number that was provided to me from the third insurance call. Patient is afebrile maintained on tracheostomy with pulmonary and infectious disease following. Orthopedics following with no plans of further surgical intervention recommending outpatient follow-up. Patient continues on trach collar with 28% FiO2. Patient needs frequent suctioning and cannulation and currently has a #6 Shiley nonfenestrated. Patient maintained on aspiration precautions with PEG tube and tolerating tube feeds thus far. Patient is significantly weak and will need extensive physical therapy on discharge. Patient was independent and ambulatory prior to this hospitalization. 11/23/2024 Patient is seen in follow-up today maintained on antibiotics with infectious disease following. Orthopedics recommending outpatient follow-up and medically stable with no further plans of surgical intervention at this time. Patient initially planning on LTAC for continued frequent suctioning and decannulation as patient did require tracheostomy and PEG tube placement. [id number] was attempted although denied recommending staying hospitalized until decannulated or possible penitentiary. Patient with case management following making other referrals to [facility] that provide tracheostomy care services. Patient will require insurance authorization for penitentiary as well and will be submitted per case management once there is an accepting facility. Patient is afebrile and white count is trending down currently at 14. Continue with aspiration precautions and monitoring PEG tube residuals closely. 11/24/2024 Patient is seen in follow-up today with no acute overnight issues noted. Patient requiring frequent suctioning via tracheostomy and continued on treatments with multiple consultations following. Infectious disease following as white count is mildly elevated with concerns of Erin will give a dose of Diflucan and continue antibiotics for now. Patient will likely not require antibiotics on discharge. Patient awaiting acceptance at an [facility] for discharge planning as patient is significantly weak and also needs continued tracheostomy care with decannulation. Patient is currently maintained on tube feeds and tolerating although per nursing staff having frequent episodes of diarrhea likely secondary to the type of tube feeding which is being adjusted by dietary. Will order C. difficile and rule out. 11/25/2024 Patient is seen in follow-up today maintained on antibiotics with infectious disease following and will continue current regimen. Patient will likely not require antibiotics on discharge. Case management following currently working on ECF as patient did not qualify for LTAC and looking into resources at provide tracheostomy care. Patient currently maintained on tracheostomy with an FiO2 of 28% and 5 L. Patient tolerating well continues with frequent suctioning needs and strongly recommend aspiration precautions. Patient tolerating tube feeds and has been adjusted per dietary as patient was having multiple episodes of diarrhea. C. difficile was tested and ruled out and will add Imodium as needed. 11/28/2024 Patient is seen in follow-up currently sitting up in the chair today. Patient is significantly weak with prolonged hospitalization and case management and physical therapy following recommending ECF for continued tracheostomy care with frequent suctioning as well as PT/OT therapy. Patient is tolerating tube feeds and will continue current regimen with aspiration precautions. Will have speech reevaluate and is scheduled to undergo MBS later today or possibly tomorrow morning. Case management has an accepting ECF and is pending insurance authorization. Patient is afebrile and white count is trending down. Patient is continued on antibiotics although will not require antibiotics on discharge. Infectious diseases following. Review of systems: Constitutional: No reports of fatigue, fever, or chills Cardiovascular: No reports of chest pain or palpitations Respiratory: No reports of worsening shortness of breath, reports frequent suctioning GI: No reports of nausea, vomiting, reports of improving loose stools, reports to feeling hungry and wants to eat : No reports of dysuria or retention Neurovascular: reports of generalized weakness All medications have been reviewed Physical Examination: GENERAL EXAM: This is a 54-year-old female, currently on tracheostomy with an FiO2 of 28% and 5 L of oxygen, well-developed, elderly appearing, thin built HEAD: Normocephalic. Normal reaction of pupils, equal size. Tracheostomy noted with no drainage on the gauze although there is significant secretions noted that required suctioning THROAT: No erythema or exudates. NECK: No masses, no JVD. CHEST: No chest wall deformity. LUNGS: Diminished breath sounds bilaterally with some scattered rhonchi and bronchial congestion noted, able to deep cough at times CVS: S1 and S2 muffled ABDOMEN: No hepatosplenomegaly, normal bowel sounds, no guarding or rigidity. Peg tube in place. SPINE: No scoliosis or deformity. Surgical dressing dry and intact. SKIN: No rashes CENTRAL NERVOUS SYSTEM: No focal deficits noted, tone is normal in all 4 extremities. Diffusely weak EXTREMITIES: There is no peripheral edema. No clubbing, no cyanosis. Peripheral pulses are intact. Assessment: -Altered mental status from acute toxic and metabolic encephalopathy with episode of unresponsive, likely related to narcotics versus sepsis, improved and at baseline -Likely aspiration pneumonia -Pseudomonas pneumonia Healthcare acquired with septic shock POA -Acute hypoxic/hypercapnic respiratory failure; as indicated above; patient remains on tracheostomy and PEG tube placement -Surgical site infection/wound dehiscence and Patient is status post surgery on 10/27/2024 for open treatment of a T8 fracture, irrigation and excisional debridement of thoracic spine wound measuring 10 x 7 x 4 cm, posterior lateral instrumented fusion of T7-T11 and cement augmentation of T8-T10 vertebral bodies; Orthopedic surgery consulted and felt the wound was noninfectious and healing well. -Leukocytosis/sepsis; continue with IV antibiotics as indicated above; patient has been pancultured, improving and trending down -Hypernatremia, improved -Diarrhea, C. difficile ruled out -History of hypertension; propranolol 20 mg twice daily has been resumed; prazosin 2 mg twice daily on hold -Macroctyic anemia -Hyperlipidemia; currently not on any statin therapy -Hypothyroidism; levothyroxine 88 mcg daily -History of CAD -Chronic heart failure with preserved EF with no acute exacerbation -History of COPD/Asthma -PTSD/Bipolar/Borderline personality -Chronic nicotine use -Polysubstance use -Rectal prolapse -Hx seizure disorder -Gastroesophageal reflux DVT prophylaxis; SCDs/subcu heparin CODE STATUS; full code Plan: -Patient was intubated and mechanically ventilated in ED. patient has been extubated and is currently on a trach collar with an FiO2 of 28% and tolerating trach collar off of the vent. Insurance was denied for LTAC and case management following as insurance requested a peer to peer. Attempted peer to peer although was denied reporting she does not meet criteria for [facility] recommending possible ECF with tracheostomy services. Case management is following and has placed multiple referrals and has been accepted at [facility] in [place] who can accommodate frequent tracheostomy suctioning and care pending insurance authorization. Insurance authorization admitted by [facility] liaison and currently pending -Blood culture remain negative with infectious disease following and will not require antibiotics on discharge. Continue current regimen during hospitalization -Sputum culture revealing pseudomonas aeruginosa. x2 and will continue on Zosyn for now per ID and will give a dose of Diflucan with concerns of Erin. Patient will likely not require antibiotics on discharge. Patient has had adequate antibiotics during hospitalization -Patient has been transitioned to oral prednisone and tapering -Patient reports to feeling hungry and would like to try to eat. Will have speech reevaluate for possible MBS today or tomorrow morning -Antiseizure medications have been resumed; we do not carry briviact so patient was transitioned over to keppra. -Monitor electrolytes and renal function, replace electrolytes per protocol -Plan is for ECF that can accommodate respiratory care with tracheostomy on dis charge. Patient will also require a new insurance authorization which per case management has been submitted and pending at this time. [facility] has accepted pending this authorization Due to multiple complex medical issues, overall prognosis is guarded Possible discharge planning in the next 24 to 48 hours The impression and plan of care has been dictated by Kristina Wells, Nurse Practitioner as directed. Dr. Lora MD I have performed a history and physical examination and medical decision making of this patient, discussed the same with the dictator, and agree with the dictators assessment and plan as written, documented as a scribe. Based on total visit time, I have performed more than 50% of this visit. Objective - Vital Signs Vital signs: Vital Signs Temp 98.1 F 11/29/24 04:00 Pulse 89 11/29/24 04:00 Resp 18 11/29/24 04:00 BP 146/83 11/29/24 04:00 Pulse Ox 95 11/29/24 04:28 FiO2 28 11/29/24 04:28 Intake & Output 11/28/24 11/28/24 11/29/24 06:59 18:59 06:59 Output Total 1300 Balance -1300 Weight 44.5 kg 44.5 kg Output: Urine 1300 Other: Voiding Method Indwelling Catheter Indwelling Catheter Indwelling Catheter # Voids 1,000 # Bowel Movements 1 ABP, PAP, CO, CI - Last Documented Arterial Blood Pressure 158/76 - Labs CBC & Chem 7: 11/27/24 06:55 11/27/24 06:55 Labs: Abnormal Lab Results - Last 24 Hours (Table) 11/28/24 11/28/24 11/28/24 Range/Units 05:48 12:01 18:06 POC Glucose (mg/dL) 122 H 138 H 115 H (70-110) mg/dL
[2024-11-29 06:05] LABS: Glucose,Whole Blood 119 mg/dL (70-110)
[2024-11-29 08:14] LABS: Glucose,Whole Blood 122 mg/dL (70-110)
--- NOTE | 2024-11-29 11:43 | FL ---
EXAMINATION TYPE: FL barium swallow w video DATE OF EXAM: 11/29/2024 11:37 AM COMPARISON: None. CLINICAL INDICATION: Female, 54 years old with history of r/o aspiration; A number of thin and thick substances were ingested under the care of the department of speech pathol ogy. There is no evidence of aspiration or penetration. There is transient penetration with thin ba rium and nectar. Mild vallecular residuals. DAP 132.00. Fluoroscopy time 1 minute 36. IMPRESSION: 1. Transient penetration with thin barium and nectar. [facility], , 11/29/2024 11:40 AM
[2024-11-29 12:03] LABS: Glucose,Whole Blood 129 mg/dL (70-110)
--- NOTE | 2024-11-29 12:17 | P.PN ---
Subjective Progress Note Date: 11/22/24 Principal diagnosis: Respiratory failure. The patient is seen today November 23, 2024 in follow-up on the selective care unit. She was transferred out of the intensive care unit yesterday. She is awake and alert in no acute distress. She is maintaining good O2 saturations in the 90s on 28% FiO2 via trach collar. Her tracheotomy tube is a #6 Shiley, nonfenestrated, the cuff is deflated. She is tolerating this very well. She is afebrile. Hemodynamically stable. White count 14.1. Hemoglobin 8.3. Platelets 449. Sodium 140. Potassium 3.6. Bicarb 27. BUN 21. Creatinine 0.59. Glucose 116. She remains on DuoNeb inhalations, Pulmicort and Perforomist inhalations, prednisone taper. Remains on antibiotics in the form of Zosyn per ID service. Lovenox for DVT prophylaxis. She is being nourished with vital HP at 50 cc/h. The patient is seen today November 24, 2024 in follow-up on the selective care unit. She is awake and alert in no acute distress. Resting comfortably in bed. She is maintaining good O2 saturations in the upper 90s on 28% FiO2 via trach collar. She is afebrile. Hemodynamically stable. She has received 1 unit of packed red blood cells this admission. Current hemoglobin 8.4. Platelets 415. White count 14.1. Sodium 142. Potassium 3.3. Bicarb 26. BUN 20. Creatinine 0.59. Glucose 108.` She remains on Zosyn for her Pseudomonas lung infection. Continued on DuoNeb inhalations, Pulmicort and Perforomist inhalations, prednisone. Lovenox for DVT prophylaxis. She remains on vital HP at 50 cc/h for nourishment. The patient is seen today November 25, 2024 in follow-up on the selective care unit. She is currently sitting up in bed. Awake and alert in no acute distress. She is maintaining O2 saturations in the 90s on 28% FiO2 via trach collar. Similar left basilar pleural effusion with adjacent atelectasis. She remains on Zosyn per ID service. White count 13.6. Hemoglobin 8.5. Platelets 416. Sodium 142. Potassium 3.2. Bicarb 24. BUN 18. Creatinine 0.63. Glucose 122. She remains on Pulmicort and Perforomist inhalations, DuoNeb inhalations, prednisone taper. Lovenox for DVT prophylaxis. She is continued on vital HP at 50 cc/h via PEG tube. The patient is seen today November 26, 2024 in follow-up on the selective care unit. She is awake and alert in no acute distress. Resting fairly comfortably in bed. She continues to maintain good O2 saturations in the 90s on 28% FiO2 via trach collar. She is being nourished with Jevity at 45 mL/h. White count 13.3. Hemoglobin 8.6. Platelets 378. Sodium 141. Potassium 3.6. Bicarb 25. BUN 18. Creatinine 0.67. Glucose 127. Elations, Pulmicort and performance and elations, prednisone taper. Lovenox for DVT prophylaxis. Continued on Zosyn per ID service. The patient is seen today November 27, 2024 in follow-up on the selective care unit. She is currently sitting up in a chair. Awake and alert in no acute distress. Denies any worsening shortness of breath, cough or congestion. She is maintaining good O2 saturations in the 90s on 28% trach collar. She is afebrile. Hemodynamically stable. She is being nourished with Jevity tube feedings at 45 mL/h. She is continued on DuoNeb inhalations, Pulmicort and Perforomist inhalations, Singulair, prednisone taper. Lovenox for DVT prophylaxis. White count 11.9. Hemoglobin 8.3. Platelets 365. Sodium 142. Potassium 3.5. Bicarb 25. BUN 18. Creatinine 0.62. Glucose 105. Progress note dated November 28, 2024. 54-year-old female who is seen today in room 381. The patient has not been in the hospital for 22 days. She is status post tracheostomy and PEG tube placement on November 15, for respiratory failure and failure to wean from mechanical ventilation. Currently, she is on a 28% trach collar. Clinically, she appears relatively stable although she does appear weak. She is in no acute distress. No new laboratory data from today other than a glucose of 138. From November 07 and from November 08, sputum show evidence of Pseudomonas aeruginosa. No recent chest x-ray. Progress note dated November 29, 2024. 54-year-old female seen today in room 381. She has not been in the hospital for 23 days. She was initially seen in the intensive care unit, after surgery. The patient is getting Jevity at 45 cc an hour. She has a midline tracheostomy and is receiving oxygen via trach collar, at 28%. We are going to change her to a uncuffed fenestrated tracheostomy tube. She did pass her swallow evaluation. Maybe later this week, she can be decannulated. Today's labs only include a glucose of 129. Objective - Vital Signs Vital signs: Vital Signs Temp 97.1 F L 11/29/24 08:09 Pulse 97 11/29/24 11:00 Resp 20 11/29/24 08:33 BP 140/83 11/29/24 08:09 Pulse Ox 96 11/29/24 08:33 FiO2 28 11/29/24 10:43 Intake & Output 11/28/24 11/29/24 11/29/24 18:59 06:59 18:59 Output Total 925 Balance -925 Weight 44.5 kg 47.5 kg Output: Urine 925 Other: Voiding Method Indwelling Catheter Indwelling Catheter # Voids 1,000 1 ABP, PAP, CO, CI - Last Documented Arterial Blood Pressure 158/76 - Exam No acute distress, oriented 3. HEENT examination is grossly unremarkable. Mucous membranes are moist. No oral lesions. Neck supple. Full range of motion. No adenopathy thyromegaly or neck vein distention. The patient has a midline tracheostomy. A 28% trach collar is noted. Cardiovascular examination reveals regular rhythm rate. S1-S2 normal. No S3 or S4. No discernible murmur noted. Heart sounds are distant. Lungs reveal clear breath sounds. Breath sounds are equal bilaterally. No adventitious lung sounds including wheezes rhonchi or crackles. Abdomen soft bowel sounds are heard. No masses or tenderness. Extremities are intact. No cyanosis clubbing or edema. Skin is without rash or lesion. Neurologic examination is brief but nonfocal. - Labs CBC & Chem 7: 11/27/24 06:55 11/27/24 06:55 Labs: Abnormal Lab Results - Last 24 Hours (Table) 11/28/24 11/29/24 11/29/24 Range/Units 18:06 00:19 06:04 POC Glucose (mg/dL) 115 H 122 H 119 H (70-110) mg/dL 11/29/24 Range/Units 12:02 POC Glucose (mg/dL) 129 H (70-110) mg/dL Assessment and Plan Assessment: Altered mental status, obtunded requiring intubation and mechanical ventilatory support on November 06, 2024. Suspect secondary to narcotics. Urine drug screen positive for opiates, barbiturates, tricyclic antidepressants, benzodiazepines and marijuana. Subsequently had undergone tracheostomy and PEG tube placement on November 15, 2024. She has been off the mechanical ventilator since November 19, 2024 and transitioned to 28% FiO2 via trach collar. Acute hypoxemic and hypercapnic respiratory failure secondary to above, positive sputum culture for Pseudomonas aeruginosa. Discharge from the hospital following surgery on 10/27/2024 for open treatment of a T8 fracture, irrigation and excisional debridement of thoracic spine wound measuring 10 x 7 x 4 cm, posterior lateral instrumented fusion of T7-T11 and cement augmentation of T8-T10 vertebral bodies. Chronic obstructive pulmonary disease/asthma. T2 vertebral fracture with revision of C2-T7 posterior lateral fusion on 09/09/2024. . Surgical site infection and wound dehiscence. Acute leukocytosis, improved. Macrocytic anemia. Rectal prolapse with bleeding. History of hypertension. History of hyperlipidemia. History of coronary artery disease. History of heart failure with preserved ejection fraction. History of gastroesophageal reflux disease. History of seizure disorder. History of hypothyroidism. History of anxiety/depression/PTSD. Plan: Plan dated November 28, 2024. The patient was seen today in room 381. She continues on updraft treatments, and a prednisone taper. She also continues on Pulmicort, and formoterol. She continues on both GI and DVT prophylaxis. She has a tracheostomy tube at the midline. She is on a 28% trach collar. She is getting [facility] for nutritional support. The patient is apparently going to be discharged to subacute rehab. Labs, x-rays, medications are reviewed. We will continue to follow. Prognosis is guarded. She remains a full code. Plan dated November 29, 2024. The patient passed her swallow evaluation today. We will convert her tracheostomy tube to a uncuffed fenestrated tube. Maybe later this week, if she is not having issues with airway secretions, and her oxygenation is good, the patient can be decannulated. Labs include only a glucose. We will continue to follow make recommendations along the way. Prognosis is guarded. Dictation was produced using [employer] software. Please excuse any grammatical, word or spelling errors. Time with Patient: Less than 30
--- NOTE | 2024-11-29 15:02 | P.PN ---
Subjective Progress Note Date: 11/29/24 Principal diagnosis: Reason for follow-up is pneumonia Patient is a 54-year-old female with a past medical history significant for COPD DVT hypertension hyperlipidemia who recently did have a cervical thoracic spine surgery revision for a nonhealing wound to the mid/upper back area patient cultures were negative has been brought to the hospital on the patient was found to be unresponsive requiring elevation and admission to the ICU Patient is status post tracheostomy and PEG tube placement completed on 11/15/2024. On today's evaluation that is 11/29/2024, Patient is afebrile this morning patient currently on 5 L trach collar mention not feeling that good no chest pain or any worsening cough reported no diarrhea has been reported patient apparently did well with the swallow. No new lab has been repeated today Objective - Vital Signs Vital signs: Vital Signs Temp 97.1 F L 11/29/24 08:09 Pulse 87 11/29/24 12:00 Resp 20 11/29/24 14:00 BP 162/103 11/29/24 12:00 Pulse Ox 97 11/29/24 12:00 FiO2 28 11/29/24 10:43 Intake & Output 11/28/24 11/29/24 11/29/24 18:59 06:59 18:59 Output Total 925 Balance -925 Weight 44.5 kg 47.5 kg Output: Urine 925 Other: Voiding Method Indwelling Catheter Indwelling Catheter # Voids 1,000 1 ABP, PAP, CO, CI - Last Documented Arterial Blood Pressure 158/76 - Exam GENERAL DESCRIPTION: Middle-age female lying in bed in no distress RESPIRATORY SYSTEM: Unlabored breathing , decreased breath sounds at bases HEART: S1 S2 regular rate and rhythm , ABDOMEN: Soft , no tenderness EXTREMITIES: No edema feet - Labs CBC & Chem 7: 11/27/24 06:55 11/27/24 06:55 Labs: Abnormal Lab Results - Last 24 Hours (Table) 11/28/24 11/29/24 11/29/24 Range/Units 18:06 00:19 06:04 POC Glucose (mg/dL) 115 H 122 H 119 H (70-110) mg/dL 11/29/24 Range/Units 12:02 POC Glucose (mg/dL) 129 H (70-110) mg/dL Assessment and Plan (1) Pneumonia Current Visit: Yes Status: Acute Code(s): J18.9 - PNEUMONIA, UNSPECIFIED ORGANISM SNOMED Code(s): 932044556 (2) Abnormal CT scan, chest Current Visit: Yes Status: Acute Code(s): R93.89 - ABNORMAL FINDINGS ON DX IMAGING OF OTH BODY STRUCTURES SNOMED Code(s): 79767357735972941 (3) Leukocytosis Current Visit: No Status: Acute Code(s): D72.829 - ELEVATED WHITE BLOOD CELL COUNT, UNSPECIFIED SNOMED Code(s): 072480773 Plan: 1patient presented to hospital after the patient was found to be unresponsive at home concerning for possible drug overdose also noted to have significant finding on a chest x-ray and the CT concerning for possible pneumonia question of aspiration etiology in this patient has been around the hospital concerning for possible resistant gram-positive as well as gram-negative pathogen, 2-patient did have Pseudomonas aeruginosa in the sputum concerning for pneumonia possible aspiration, for which the patient has received adequate Zosyn therapy 3patient is afebrile white count is down to 11,000 on last check, no CBC has been done today 4patient to continue with the Diflucan and monitor clinical course closely Dictation was produced using [employer] dictation software. please excuse any grammatical, word or spelling errors.
[2024-11-29 17:59] LABS: Glucose,Whole Blood 156 mg/dL (70-110)
[2024-11-30 00:01] LABS: Glucose,Whole Blood 119 mg/dL (70-110)
[2024-11-30 05:58] LABS: Glucose,Whole Blood 149 mg/dL (70-110)
--- NOTE | 2024-11-30 09:42 | P.PN ---
Subjective Progress Note Date: 11/29/24 Patient is evaluated today in follow up in the intensive care unit. Patient remains intubated on the mechanical ventilator with PEEP of 5 and FiO2 of 40%. Patient remains sedated. LFTs remain elevated, white blood cell count up to 38. Blood culture pending. Patient continues on IV Vancomycin and IV cefepime. ID following. Chest xray today reveals stable upper lobe interstitial opacities. Spinal surgery evaluated the patient felt the wound was noninfectious and healing well. Patients heart rate has been in the 120s was resumed on home medication of propanolol and has had improvement in the heart rate down to the 80s this afternoon. 11/08/2024 Patient is evaluated today in follow up in the ICU. Remains intubated and sedated on the mechanical ventilator with settings at PEEP of 5 and 40% FiO2. C hest xray today reveals interstitial opacities correlating for atypical pneumonia. There is extensive fixation hardware throughout the spine. White blood cell count of 18.7, hgb 7.0, MCV 105.6. Magnesium 1.2, potassium 3.3. Remains on IV cefepime, IV vancomycin. Has been started on systemic steroids. Patient with low grade temp of 99.8 today. Blood pressure low/normal. 11/09/2024 Patient is evaluated in the Intensive care unit, family at the bedside. Patient remains on the mechanical ventilator with PEEP of 5, FiO2 of 40%. Not ready for weaning today. Chest xray reveals interstitial opacities of the lungs correlate for atypical pneumonia. Sputum positive for pseudomonas. Patient remains on IV Cefepime. Also on IV solumedrol. Patient is sedated with propofol. Normal saline is running at 75 mls/hr. White blood cell count 17.9, hgb 8.1. Sodium 145, potassium 4.1, BUN 23, creatinine 0.67. Patient with low grade temp 99 axillary. 11/10/2024 Patient evaluated today in the intensive care unit. She remains sedated and intubated on mechanical ventilator settings of PEEP of 5 with FiO2 40%. She is awake and alert although her eyes are not tracking. She does remain on propofol. Chest x-ray today reveals interstitial opacities of the lungs are unchanged. Sputum culture shows Pseudomonas x 2. Her labs today reveal a white blood cell count of 18.2, hemoglobin 8.6, platelet count of 625, sodium of 145, potassium 3.8, BUN of 26, creatinine of 0.73, magnesium 2.1. Her blood glucose is controlled. She is having some residuals with the enteral feedings per the nurse they have been decreased to 20 mL/h and will monitor the residuals closely. Patient continues on IV cefepime IV Solu-Medrol. She is sedated with IV propofol she is on normal saline at 75 mL/h. Pulmonary is considering this patient for tracheostomy and PEG tube placement 11/11/2024 Patient evaluated in the ICU patient is unable to be weaned and continues to become agitated when weaning off the propofol. Residuals are better today and tube feeds up to 30 mls/hr and she is having bowel movements. Antibiotics have been transitioned to IV zosyn. ID following closely. Labs today reveal white blood cell count 19.2, hgb 8.3, sodium 144, potassium 4.0, BUN 27, creatinine 0.66. Chest xray today reveals stable findings. 11/14/2024 Patient is evaluated today in the intensive care unit. No family able to bring patients briviact up to the hospital so she has been started on oral keppra. Continues to be sedated and intubated on the mechanical ventilator. Chest xray today reveals no new acute pulmonary process. Hemoglobin 6.4 today and patient scheduled to receive 1 unit of PRBC. White blood cell count down to 12.7. Sodium 147, potassium 3.3., BUN 26, creatinine 0.69. General surgery was consulted for PEG/Trach. 11/15/2024 Patient is evaluated in follow-up remains in the ICU she is sedated and intubat ed; on the mechanical ventilator with an FiO2 of 40% PEEP of 5. Patient will be going for trach and PEG tube placement. Chest x-ray today reveals no acute new pulmonary process. White blood cell count is 21.9, hemoglobin 8.7, sodium of 147 potassium 3.8, BUN 22 creatinine 0.64 magnesium 1.9. 11/16/2024 Patient is evaluated in follow-up remains in the intensive care unit. Patient is currently sedated with propofol she is currently intubated on mechanical ventilator with a FiO2 of 40% and a PEEP of 5. Patient underwent tracheostomy and PEG tube placement yesterday. Chest x-ray reveals no new acute process. Improved bilateral interstitial edema noted. Patient to be started on oral [place] today. She continues on IV Zosyn. Her labs reveal a white blood cell count of 16.6, hemoglobin 8.7, sodium of 140, potassium 3.6, creatinine 0.64. 11/17/2024 Patient evaluated in the ICU. Remains on the mechanical ventilator intubated. Awake alert and following some commands. Status post tracheostomy and PEG tube placement. Labs today 15.9, hgb 8.6, sodium 139, potassium 3.2, BUN 18, creatin ine 0.67. 11/18/2024 Patient evaluated today in the ICU and remains on the mechanical ventilator i ntubated. Patient is awake alert following simple commands. Diffusely weak. She is currently off sedation. Patient is status post tracheostomy and PEG tube placement. Continues on enteral feedings. Patient will continue on Vital 1.2 with goal of 50 mls/hr. 11/19/2024 Patient evaluated in the intensive care unit she is status post trach and PEG tube placement. She is off the propofol awake alert and oriented she states that she is scared in regards to the tracheostomy tube. Her chest x-ray today reveals persistent small left pleural effusion with associated basilar infiltrate and or atelectasis. Her labs reveal a white blood cell count of 14.8, hemoglobin 8.6, sodium of 141 potassium of 3.4, BUN of 25 creatinine of 0.67. 11/20/2024 Patient is evaluated in follow-up in intensive care unit. Patient is status post tracheostomy and PEG tube placement. Patient has been on the trach collar overnight and doing well. She is off the mechanical ventilator at this time. Patient is awake alert oriented following commands. Patient will be moved out of the intensive care unit when a bed is available. Her chest x-ray today reveals persistent small pleural effusion with associated bibasilar infiltrate and/or atelectasis. labs today reveal a white blood cell count of 14.2, hemoglobin 8.4, sodium of 142, potassium 3.6, BUN of 25 creatinine 0.61 magnesium level of 1.9. 11/21/2024 Patient is seen in follow-up today continues in the ICU on tracheostomy and PEG tube. Patient is continued on trach collar with pulmonary compliance lead following and working on [facility] for continued ongoing care. White count remains elevated and patient is maintained on antibiotics with infectious disease following. Case management following as patient requires insurance authorization which is currently pending. Possible discharge planning in the next 24 hours to LTAC 11/22/2024 Patient is seen in follow-up in the ICU although is a downgrade once a bed becomes available on 3 S. Insurance authorization was denied for LTAC requesting a peer to peer. Attempted to do peer to peer with multiple phone calls and insurance company reporting there was no reference number and unable to locate the denial. Will attempt to call back again with the reference number that was provided to me from the third insurance call. Patient is afebrile maintained on tracheostomy with pulmonary and infectious disease following. Orthopedics following with no plans of further surgical intervention recommending outpatient follow-up. Patient continues on trach collar with 28% FiO2. Patient needs frequent suctioning and cannulation and currently has a #6 Shiley nonfenestrated. Patient maintained on aspiration precautions with PEG tube and tolerating tube feeds thus far. Patient is significantly weak and will need extensive physical therapy on discharge. Patient was independent and ambulatory prior to this hospitalization. 11/23/2024 Patient is seen in follow-up today maintained on antibiotics with infectious disease following. Orthopedics recommending outpatient follow-up and medically stable with no further plans of surgical intervention at this time. Patient initially planning on LTAC for continued frequent suctioning and decannulation as patient did require tracheostomy and PEG tube placement. [id number] was attempted although denied recommending staying hospitalized until decannulated or possible mcfp. Patient with case management following making other referrals to [facility] that provide tracheostomy care services. Patient will require insurance authorization for mcfp as well and will be submitted per case management once there is an accepting facility. Patient is afebrile and white count is trending down currently at 14. Continue with aspiration precautions and monitoring PEG tube residuals closely. 11/24/2024 Patient is seen in follow-up today with no acute overnight issues noted. Patient requiring frequent suctioning via tracheostomy and continued on treatments with multiple consultations following. Infectious disease following as white count is mildly elevated with concerns of Erin will give a dose of Diflucan and continue antibiotics for now. Patient will likely not require antibiotics on discharge. Patient awaiting acceptance at an [facility] for discharge planning as patient is significantly weak and also needs continued tracheostomy care with decannulation. Patient is currently maintained on tube feeds and tolerating although per nursing staff having frequent episodes of diarrhea likely secondary to the type of tube feeding which is being adjusted by dietary. Will order C. difficile and rule out. 11/25/2024 Patient is seen in follow-up today maintained on antibiotics with infectious disease following and will continue current regimen. Patient will likely not require antibiotics on discharge. Case management following currently working on ECF as patient did not qualify for LTAC and looking into resources at provide tracheostomy care. Patient currently maintained on tracheostomy with an FiO2 of 28% and 5 L. Patient tolerating well continues with frequent suctioning needs and strongly recommend aspiration precautions. Patient tolerating tube feeds and has been adjusted per dietary as patient was having multiple episodes of diarrhea. C. difficile was tested and ruled out and will add Imodium as needed. 11/28/2024 Patient is seen in follow-up currently sitting up in the chair today. Patient is significantly weak with prolonged hospitalization and case management and physical therapy following recommending ECF for continued tracheostomy care with frequent suctioning as well as PT/OT therapy. Patient is tolerating tube feeds and will continue current regimen with aspiration precautions. Will have speech reevaluate and is scheduled to undergo MBS later today or possibly tomorrow morning. Case management has an accepting ECF and is pending insurance authorization. Patient is afebrile and white count is trending down. Patient is continued on antibiotics although will not require antibiotics on discharge. Infectious diseases following. 11/29/2024 Patient is seen in follow-up today being followed by speech scheduled to undergo modified barium swallow study today as patient reports she would like to eat. Patient continues with trach collar and PEG tube and is maintained on tube feeds and tolerating. Patient needs constant suctioning and education regarding trach eostomy care. Case management is following arranging for discharge planning to ECF for continued strength and mobility as well as tracheostomy and respiratory care. Patient is afebrile with no reports of chest pain or shortness of breath. Patient continues on Diflucan and has completed the course of antibiotics for Pseudomonas aeruginosa in the sputum. Infectious diseases following and will no t require antibiotics on discharge. Review of systems: Constitutional: No reports of fatigue, fever, or chills Cardiovascular: No reports of chest pain or palpitations Respiratory: No reports of worsening shortness of breath, reports frequent suctioning GI: No reports of nausea, vomiting, reports of improving loose stools, reports to feeling hungry and wants to eat : No reports of dysuria or retention Neurovascular: reports of generalized weakness All medications have been reviewed Physical Examination: GENERAL EXAM: This is a 54-year-old female, currently on tracheostomy with an FiO2 of 28% and 5 L of oxygen, well-developed, elderly appearing, thin built HEAD: Normocephalic. Normal reaction of pupils, equal size. Tracheostomy noted with no drainage on the gauze although there is significant secretions noted that required suctioning THROAT: No erythema or exudates. NECK: No masses, no JVD. CHEST: No chest wall deformity. LUNGS: Diminished breath sounds bilaterally with some scattered rhonchi and bronchial congestion noted, able to deep cough at times CVS: S1 and S2 muffled ABDOMEN: No hepatosplenomegaly, normal bowel sounds, no guarding or rigidity. Peg tube in place. SPINE: No scoliosis or deformity. Surgical dressing dry and intact. SKIN: No rashes CENTRAL NERVOUS SYSTEM: No focal deficits noted, tone is normal in all 4 extremities. Diffusely weak EXTREMITIES: There is no peripheral edema. No clubbing, no cyanosis. Peripheral pulses are intact. Assessment: -Altered mental status from acute toxic and metabolic encephalopathy with episode of unresponsive, likely related to narcotics versus sepsis, improved and at baseline -Likely aspiration pneumonia -Pseudomonas pneumonia Healthcare acquired with septic shock POA -Acute hypoxic/hypercapnic respiratory failure; as indicated above; patient remains on tracheostomy and PEG tube placement -Surgical site infection/wound dehiscence and Patient is status post surgery on 10/27/2024 for open treatment of a T8 fracture, irrigation and excisional debridement of thoracic spine wound measuring 10 x 7 x 4 cm, posterior lateral instrumented fusion of T7-T11 and cement augmentation of T8-T10 vertebral bodies; Orthopedic surgery consulted and felt the wound was noninfectious and healing well. -Leukocytosis/sepsis; continue with IV antibiotics as indicated above; patient has been pancultured, improving and trending down -Hypernatremia, improved -Diarrhea, C. difficile ruled out -History of hypertension; propranolol 20 mg twice daily has been resumed; prazosin 2 mg twice daily on hold -Macroctyic anemia -Hyperlipidemia; currently not on any statin therapy -Hypothyroidism; levothyroxine 88 mcg daily -History of CAD -Chronic heart failure with preserved EF with no acute exacerbation -History of COPD/Asthma -PTSD/Bipolar/Borderline personality -Chronic nicotine use -Polysubstance use -Rectal prolapse -Hx seizure disorder -Gastroesophageal reflux DVT prophylaxis; SCDs/subcu heparin CODE STATUS; full code Plan: -Patient was intubated and mechanically ventilated in ED. patient has been extubated and is currently on a trach collar with an FiO2 of 28% and tolerating trach collar off of the vent. Insurance was denied for LTAC and case management following as insurance requested a peer to peer. Attempted peer to peer although was denied reporting she does not meet criteria for [facility] admission recommending possible ECF with tracheostomy services. Case management is following and has placed multiple referrals and has been accepted at [facility] in [place] who can accommodate frequent tracheostomy suctioning and care pending insurance authorization. Insurance authorization admitted by [facility] liaison and currently pending -Blood culture remain negative with infectious disease following and will not require antibiotics on discharge. Continue current regimen during hospitalization -Sputum culture revealing pseudomonas aeruginosa. x2 and has completed adequate IV antibiotics in the form of Zosyn per ID and is continued on Diflucan with concerns of Erin. Patient will likely not require antibiotics on discharge. Patient has had adequate antibiotics during hospitalization -Patient has been transitioned to oral prednisone and tapering -Patient reports to feeling hungry and would like to try to eat. Patient underwent modified barium and is being started on a dysphagia diet. Strongly recommend aspiration precautions and assistance with meals and head of the bed elevated 30 to 45 degrees at all times. -Antiseizure medications have been resumed; we do not carry briviact so patient was transitioned over to keppra. -Monitor electrolytes and renal function, replace electrolytes per protocol -Plan is for ECF that can accommodate respiratory care with tracheostomy on discharge. Patient will also require a new insurance authorization which per case management has been submitted and pending at this time. [facility] reviewing and will be submitting for insurance authorization Due to multiple complex medical issues, overall prognosis is guarded Possible discharge planning in the next 24 to 48 hours The impression and plan of care has been dictated by Kristina Wells, Nurse Practitioner as directed. Dr. Lora MD I have performed a history and physical examination and medical decision making of this patient, discussed the same with the dictator, and agree with the dictators assessment and plan as written, documented as a scribe. Based on total visit time, I have performed more than 50% of this visit. Objective - Vital Signs Vital signs: Vital Signs Temp 97.1 F L 11/29/24 08:09 Pulse 97 11/29/24 11:00 Resp 20 11/29/24 08:33 BP 140/83 11/29/24 08:09 Pulse Ox 96 11/29/24 08:33 FiO2 28 11/29/24 10:43 Intake & Output 11/28/24 11/29/24 11/29/24 18:59 06:59 18:59 Output Total 925 Balance -925 Weight 44.5 kg 47.5 kg Output: Urine 925 Other: Voiding Method Indwelling Catheter Indwelling Catheter # Voids 1,000 1 ABP, PAP, CO, CI - Last Documented Arterial Blood Pressure 158/76 - Labs CBC & Chem 7: 11/27/24 06:55 11/27/24 06:55 Labs: Abnormal Lab Results - Last 24 Hours (Table) 11/28/24 11/28/24 11/29/24 Range/Units 12:01 18:06 00:19 POC Glucose (mg/dL) 138 H 115 H 122 H (70-110) mg/dL 11/29/24 Range/Units 06:04 POC Glucose (mg/dL) 119 H (70-110) mg/dL
--- NOTE | 2024-11-30 12:10 | P.PN ---
Subjective Progress Note Date: 11/30/24 Principal diagnosis: Respiratory failure. The patient is seen today November 23, 2024 in follow-up on the selective care unit. She was transferred out of the intensive care unit yesterday. She is awake and alert in no acute distress. She is maintaining good O2 saturations in the 90s on 28% FiO2 via trach collar. Her tracheotomy tube is a #6 Shiley, nonfenestrated, the cuff is deflated. She is tolerating this very well. She is afebrile. Hemodynamically stable. White count 14.1. Hemoglobin 8.3. Platelets 449. Sodium 140. Potassium 3.6. Bicarb 27. BUN 21. Creatinine 0.59. Glucose 116. She remains on DuoNeb inhalations, Pulmicort and Perforomist inhalations, prednisone taper. Remains on antibiotics in the form of Zosyn per ID service. Lovenox for DVT prophylaxis. She is being nourished with vital HP at 50 cc/h. The patient is seen today November 24, 2024 in follow-up on the selective care unit. She is awake and alert in no acute distress. Resting comfortably in bed. She is maintaining good O2 saturations in the upper 90s on 28% FiO2 via trach collar. She is afebrile. Hemodynamically stable. She has received 1 unit of packed red blood cells this admission. Current hemoglobin 8.4. Platelets 415. White count 14.1. Sodium 142. Potassium 3.3. Bicarb 26. BUN 20. Creatinine 0.59. Glucose 108.` She remains on Zosyn for her Pseudomonas lung infection. Continued on DuoNeb inhalations, Pulmicort and Perforomist inhalations, prednisone. Lovenox for DVT prophylaxis. She remains on vital HP at 50 cc/h for nourishment. The patient is seen today November 25, 2024 in follow-up on the selective care unit. She is currently sitting up in bed. Awake and alert in no acute distress. She is maintaining O2 saturations in the 90s on 28% FiO2 via trach collar. Similar left basilar pleural effusion with adjacent atelectasis. She remains on Zosyn per ID service. White count 13.6. Hemoglobin 8.5. Platelets 416. Sodium 142. Potassium 3.2. Bicarb 24. BUN 18. Creatinine 0.63. Glucose 122. She remains on Pulmicort and Perforomist inhalations, DuoNeb inhalations, prednisone taper. Lovenox for DVT prophylaxis. She is continued on vital HP at 50 cc/h via PEG tube. The patient is seen today November 26, 2024 in follow-up on the selective care unit. She is awake and alert in no acute distress. Resting fairly comfortably in bed. She continues to maintain good O2 saturations in the 90s on 28% FiO2 via trach collar. She is being nourished with Jevity at 45 mL/h. White count 13.3. Hemoglobin 8.6. Platelets 378. Sodium 141. Potassium 3.6. Bicarb 25. BUN 18. Creatinine 0.67. Glucose 127. Elations, Pulmicort and performance and elations, prednisone taper. Lovenox for DVT prophylaxis. Continued on Zosyn per ID service. The patient is seen today November 27, 2024 in follow-up on the selective care unit. She is currently sitting up in a chair. Awake and alert in no acute distress. Denies any worsening shortness of breath, cough or congestion. She is maintaining good O2 saturations in the 90s on 28% trach collar. She is afebrile. Hemodynamically stable. She is being nourished with Jevity tube feedings at 45 mL/h. She is continued on DuoNeb inhalations, Pulmicort and Perforomist inhalations, Singulair, prednisone taper. Lovenox for DVT prophylaxis. White count 11.9. Hemoglobin 8.3. Platelets 365. Sodium 142. Potassium 3.5. Bicarb 25. BUN 18. Creatinine 0.62. Glucose 105. Progress note dated November 28, 2024. 54-year-old female who is seen today in room 381. The patient has not been in the hospital for 22 days. She is status post tracheostomy and PEG tube placement on November 15, for respiratory failure and failure to wean from mechanical ventilation. Currently, she is on a 28% trach collar. Clinically, she appears relatively stable although she does appear weak. She is in no acute distress. No new laboratory data from today other than a glucose of 138. From November 07 and from November 08, sputum show evidence of Pseudomonas aeruginosa. No recent chest x-ray. Progress note dated November 29, 2024. 54-year-old female seen today in room 381. She has not been in the hospital for 23 days. She was initially seen in the intensive care unit, after surgery. The patient is getting Jevity at 45 cc an hour. She has a midline tracheostomy and is receiving oxygen via trach collar, at 28%. We are going to change her to a uncuffed fenestrated tracheostomy tube. She did pass her swallow evaluation. Maybe later this week, she can be decannulated. Today's labs only include a glucose of 129. Progress note dated November 30, 2024. 54-year-old female seen today in room 381. She continues on trach collar 28%. The patient is also receiving Jevity at 45 cc an hour. The patient appears to be doing relatively well. She is awake and alert. No distress. No respiratory distress. The patient is still coughing up with some thick amount of secretions, and for that reason, she will not be decannulated at this time. We could advance her tracheostomy tube, to an uncuffed fenestrated tube. No new labs today other than a glucose of 149. Objective - Vital Signs Vital signs: Vital Signs Temp 99.3 F 11/30/24 11:30 Pulse 84 11/30/24 11:30 Resp 19 11/30/24 11:30 BP 150/77 11/30/24 11:30 Pulse Ox 100 11/30/24 09:19 FiO2 28 11/30/24 09:19 Intake & Output 11/29/24 11/30/24 11/30/24 18:59 06:59 18:59 Intake Total 240 10 Output Total 1300 Balance 240 -1300 10 Weight 47.5 kg Intake: IV 10 Invasive Line 1 10 Oral 240 Output: Urine 1300 Other: Voiding Method Indwelling Catheter Indwelling Catheter ABP, PAP, CO, CI - Last Documented Arterial Blood Pressure 158/76 - Exam No acute distress, oriented 3. HEENT examination is grossly unremarkable. Mucous membranes are moist. No oral lesions. Neck supple. Full range of motion. No adenopathy thyromegaly or neck vein distention. The patient has a midline tracheostomy. A 28% trach collar is noted. Cardiovascular examination reveals regular rhythm rate. S1-S2 normal. No S3 or S4. No discernible murmur noted. Heart sounds are distant. Lungs reveal clear breath sounds. Breath sounds are equal bilaterally. No adventitious lung sounds including wheezes rhonchi or crackles. Abdomen soft bowel sounds are heard. No masses or tenderness. Extremities are intact. No cyanosis clubbing or edema. Skin is without rash or lesion. Neurologic examination is brief but nonfocal. - Labs CBC & Chem 7: 11/27/24 06:55 11/27/24 06:55 Labs: Abnormal Lab Results - Last 24 Hours (Table) 11/29/24 11/29/24 11/30/24 Range/Units 17:57 23:59 05:56 POC Glucose (mg/dL) 156 H 119 H 149 H (70-110) mg/dL Assessment and Plan Assessment: Altered mental status, obtunded requiring intubation and mechanical ventilatory support on November 06, 2024. Suspect secondary to narcotics. Urine drug screen positive for opiates, barbiturates, tricyclic antidepressants, benzodiazepines and marijuana. Subsequently had undergone tracheostomy and PEG tube placement on November 15, 2024. She has been off the mechanical ventilator since November 19, 2024 and transitioned to 28% FiO2 via trach collar. Acute hypoxemic and hypercapnic respiratory failure secondary to above, positive sputum culture for Pseudomonas aeruginosa. Discharge from the hospital following surgery on 10/27/2024 for open treatment of a T8 fracture, irrigation and excisional debridement of thoracic spine wound measuring 10 x 7 x 4 cm, posterior lateral instrumented fusion of T7-T11 and cement augmentation of T8-T10 vertebral bodies. Chronic obstructive pulmonary disease/asthma. T2 vertebral fracture with revision of C2-T7 posterior lateral fusion on 09/09/2024. Surgical site infection and wound dehiscence. Acute leukocytosis, improved. Macrocytic anemia. Rectal prolapse with bleeding. History of hypertension. History of hyperlipidemia. History of coronary artery disease. History of heart failure with preserved ejection fraction. History of gastroesophageal reflux disease. History of seizure disorder. History of hypothyroidism. History of anxiety/depression/PTSD. Plan: Plan dated November 28, 2024. The patient was seen today in room 381. She continues on updraft treatments, and a prednisone taper. She also continues on Pulmicort, and formoterol. She continues on both GI and DVT prophylaxis. She has a tracheostomy tube at the midline. She is on a 28% trach collar. She is getting Jevity for nutritional support. The patient is apparently going to be discharged to subacute rehab. Labs, x-rays, medications are reviewed. We will continue to follow. Prognosis is guarded. She remains a full code. Plan dated November 29, 2024. The patient passed her swallow evaluation today. We will convert her tracheostomy tube to a uncuffed fenestrated tube. Maybe later this week, if she is not having issues with airway secretions, and her oxygenation is good, the patient can be decannulated. Labs include only a glucose. We will continue to follow make recommendations along the way. Prognosis is guarded. Dictation was produced using [employer] software. Please excuse any grammatical, word or spelling errors. Plan dated November 30, 2024. The patient continues on 28% trach collar. We were going to switch her tracheostomy tube to an uncuffed fenestrated tube, but the patient is still having issues with secretions. The patient also may be discharged from the hospital in the near future, and therefore, no changes were made today. The patient continues on 20% trach collar. She is getting Jevity at 45 cc an hour. No IV fluids. Labs, x-rays, and medications are reviewed. We will continue to follow with patient, make recommendations along the way. Prognosis is guarded. Dictation was produced using [employer] software. Please excuse any grammatical, word or spelling errors. Time with Patient: Less than 30
[2024-11-30 12:35] LABS: Glucose,Whole Blood 127 mg/dL (70-110)
--- NOTE | 2024-11-30 13:38 | XR ---
EXAMINATION TYPE: XR chest 1V portable DATE OF EXAM: 11/30/2024 1:31 PM COMPARISON: Multiple radiographs, with the most recent on 11/20/2024 TECHNIQUE: XR chest 1V portable Portable AP radiograph of the chest. CLINICAL INDICATION:Female, 54 years old with history of hypoxia, poss aspiration; FINDINGS: Lungs/Pleura: No pleural effusion, pneumothorax, focal consolidation. Chronic interstitial prominence . Hyperinflation. Heart/mediastinum: Cardiomediastinal silhouette is unremarkable. Musculoskeletal: No acute osseous pathology. Extensive surgical changes of the visualized spine. Mark te left-sided rib fractures. Other findings: None Lines/Tubes: Stable tracheostomy cannula. IMPRESSION: 1. Resolution of previously demonstrated small left pleural effusion and basilar airspace opacity. N o focal consolidation. 2. COPD changes. [facility], , 11/30/2024 1:36 PM
--- NOTE | 2024-11-30 17:10 | P.PN ---
Subjective Progress Note Date: 11/30/24 Principal diagnosis: Reason for follow-up is pneumonia Patient is a 54-year-old female with a past medical history significant for COPD DVT hypertension hyperlipidemia who recently did have a cervical thoracic spine surgery revision for a nonhealing wound to the mid/upper back area patient cultures were negative has been brought to the hospital on the patient was found to be unresponsive requiring elevation and admission to the ICU Patient is status post tracheostomy and PEG tube placement completed on 11/15/2024. On today's evaluation that is 11/30/2024,the patient denies any fever or any chills, patient is breathing comfortably currently on 5 L trach collar no chest pain or worsening of the abdominal pain or diarrhea. No new lab has been obtained today Objective - Vital Signs Vital signs: Vital Signs Temp 99.3 F 11/30/24 11:30 Pulse 92 11/30/24 13:02 Resp 19 11/30/24 11:30 BP 150/77 11/30/24 11:30 Pulse Ox 100 11/30/24 09:19 FiO2 28 11/30/24 09:19 Intake & Output 11/29/24 11/30/24 11/30/24 18:59 06:59 18:59 Intake Total 240 10 Output Total 1300 Balance 240 -1300 10 Weight 47.5 kg Intake: IV 10 Invasive Line 1 10 Oral 240 Output: Urine 1300 Other: Voiding Method Indwelling Catheter Indwelling Catheter ABP, PAP, CO, CI - Last Documented Arterial Blood Pressure 158/76 - Exam GENERAL DESCRIPTION: Middle-age female lying in bed in no distress RESPIRATORY SYSTEM: Unlabored breathing , decreased breath sounds at bases HEART: S1 S2 regular rate and rhythm , ABDOMEN: Soft , no tenderness EXTREMITIES: No edema feet - Labs CBC & Chem 7: 11/27/24 06:55 11/27/24 06:55 Labs: Abnormal Lab Results - Last 24 Hours (Table) 11/29/24 11/29/24 11/30/24 Range/Units 17:57 23:59 05:56 POC Glucose (mg/dL) 156 H 119 H 149 H (70-110) mg/dL 11/30/24 Range/Units 12:31 POC Glucose (mg/dL) 127 H (70-110) mg/dL Assessment and Plan (1) Pneumonia Current Visit: Yes Status: Acute Code(s): J18.9 - PNEUMONIA, UNSPECIFIED ORGANISM SNOMED Code(s): 500188212 (2) Abnormal CT scan, chest Current Visit: Yes Status: Acute Code(s): R93.89 - ABNORMAL FINDINGS ON DX IMAGING OF OTH BODY STRUCTURES SNOMED Code(s): 66629240878214041 (3) Leukocytosis Current Visit: No Status: Acute Code(s): D72.829 - ELEVATED WHITE BLOOD CELL COUNT, UNSPECIFIED SNOMED Code(s): 086118479 Plan: 1patient presented to hospital after the patient was found to be unresponsive at home concerning for possible drug overdose also noted to have significant finding on a chest x-ray and the CT concerning for possible pneumonia question of aspiration etiology in this patient has been around the hospital concerning for possible resistant gram-positive as well as gram-negative pathogen, 2-patient did have Pseudomonas aeruginosa in the sputum concerning for pneumonia possible aspiration, for which the patient has received adequate Zosyn therapy 3patient is afebrile white count is down to 11,000 on last check, she will continue short course of oral Diflucan and monitor clinical course closely Dictation was produced using [employer] dictation software. please excuse any grammatical, word or spelling errors. Time with Patient: Less than 30
[2024-11-30] MEDS: HYDROcodone/APAP 5-325MG 1 EACH TAB PO PRN (17:36)
[2024-11-30 18:17] LABS: Glucose,Whole Blood 139 mg/dL (70-110)
[2024-12-01 01:31] LABS: Glucose,Whole Blood 110 mg/dL (70-110)
--- NOTE | 2024-12-01 06:10 | P.PN ---
Subjective Progress Note Date: 11/30/24 Patient is evaluated today in follow up in the intensive care unit. Patient remains intubated on the mechanical ventilator with PEEP of 5 and FiO2 of 40%. Patient remains sedated. LFTs remain elevated, white blood cell count up to 38. Blood culture pending. Patient continues on IV Vancomycin and IV cefepime. ID following. Chest xray today reveals stable upper lobe interstitial opacities. Spinal surgery evaluated the patient felt the wound was noninfectious and healing well. Patients heart rate has been in the 120s was resumed on home medication of propanolol and has had improvement in the heart rate down to the 80s this afternoon. 11/08/2024 Patient is evaluated today in follow up in the ICU. Remains intubated and sedated on the mechanical ventilator with settings at PEEP of 5 and 40% FiO2. C hest xray today reveals interstitial opacities correlating for atypical pneumonia. There is extensive fixation hardware throughout the spine. White blood cell count of 18.7, hgb 7.0, MCV 105.6. Magnesium 1.2, potassium 3.3. Remains on IV cefepime, IV vancomycin. Has been started on systemic steroids. Patient with low grade temp of 99.8 today. Blood pressure low/normal. 11/09/2024 Patient is evaluated in the Intensive care unit, family at the bedside. Patient remains on the mechanical ventilator with PEEP of 5, FiO2 of 40%. Not ready for weaning today. Chest xray reveals interstitial opacities of the lungs correlate for atypical pneumonia. Sputum positive for pseudomonas. Patient remains on IV Cefepime. Also on IV solumedrol. Patient is sedated with propofol. Normal saline is running at 75 mls/hr. White blood cell count 17.9, hgb 8.1. Sodium 145, potassium 4.1, BUN 23, creatinine 0.67. Patient with low grade temp 99 axillary. 11/10/2024 Patient evaluated today in the intensive care unit. She remains sedated and intubated on mechanical ventilator settings of PEEP of 5 with FiO2 40%. She is awake and alert although her eyes are not tracking. She does remain on propofol. Chest x-ray today reveals interstitial opacities of the lungs are unchanged. Sputum culture shows Pseudomonas x 2. Her labs today reveal a white blood cell count of 18.2, hemoglobin 8.6, platelet count of 625, sodium of 145, potassium 3.8, BUN of 26, creatinine of 0.73, magnesium 2.1. Her blood glucose is controlled. She is having some residuals with the enteral feedings per the nurse they have been decreased to 20 mL/h and will monitor the residuals closely. Patient continues on IV cefepime IV Solu-Medrol. She is sedated with IV propofol she is on normal saline at 75 mL/h. Pulmonary is considering this patient for tracheostomy and PEG tube placement 11/11/2024 Patient evaluated in the ICU patient is unable to be weaned and continues to become agitated when weaning off the propofol. Residuals are better today and tube feeds up to 30 mls/hr and she is having bowel movements. Antibiotics have been transitioned to IV zosyn. ID following closely. Labs today reveal white blood cell count 19.2, hgb 8.3, sodium 144, potassium 4.0, BUN 27, creatinine 0.66. Chest xray today reveals stable findings. 11/14/2024 Patient is evaluated today in the intensive care unit. No family able to bring patients briviact up to the hospital so she has been started on oral keppra. Continues to be sedated and intubated on the mechanical ventilator. Chest xray today reveals no new acute pulmonary process. Hemoglobin 6.4 today and patient scheduled to receive 1 unit of PRBC. White blood cell count down to 12.7. Sodium 147, potassium 3.3., BUN 26, creatinine 0.69. General surgery was consulted for PEG/Trach. 11/15/2024 Patient is evaluated in follow-up remains in the ICU she is sedated and intubat ed; on the mechanical ventilator with an FiO2 of 40% PEEP of 5. Patient will be going for trach and PEG tube placement. Chest x-ray today reveals no acute new pulmonary process. White blood cell count is 21.9, hemoglobin 8.7, sodium of 147 potassium 3.8, BUN 22 creatinine 0.64 magnesium 1.9. 11/16/2024 Patient is evaluated in follow-up remains in the intensive care unit. Patient is currently sedated with propofol she is currently intubated on mechanical ventilator with a FiO2 of 40% and a PEEP of 5. Patient underwent tracheostomy and PEG tube placement yesterday. Chest x-ray reveals no new acute process. Improved bilateral interstitial edema noted. Patient to be started on oral [place] today. She continues on IV Zosyn. Her labs reveal a white blood cell count of 16.6, hemoglobin 8.7, sodium of 140, potassium 3.6, creatinine 0.64. 11/17/2024 Patient evaluated in the ICU. Remains on the mechanical ventilator intubated. Awake alert and following some commands. Status post tracheostomy and PEG tube placement. Labs today 15.9, hgb 8.6, sodium 139, potassium 3.2, BUN 18, creatin ine 0.67. 11/18/2024 Patient evaluated today in the ICU and remains on the mechanical ventilator i ntubated. Patient is awake alert following simple commands. Diffusely weak. She is currently off sedation. Patient is status post tracheostomy and PEG tube placement. Continues on enteral feedings. Patient will continue on Vital 1.2 with goal of 50 mls/hr. 11/19/2024 Patient evaluated in the intensive care unit she is status post trach and PEG tube placement. She is off the propofol awake alert and oriented she states that she is scared in regards to the tracheostomy tube. Her chest x-ray today reveals persistent small left pleural effusion with associated basilar infiltrate and or atelectasis. Her labs reveal a white blood cell count of 14.8, hemoglobin 8.6, sodium of 141 potassium of 3.4, BUN of 25 creatinine of 0.67. 11/20/2024 Patient is evaluated in follow-up in intensive care unit. Patient is status post tracheostomy and PEG tube placement. Patient has been on the trach collar overnight and doing well. She is off the mechanical ventilator at this time. Patient is awake alert oriented following commands. Patient will be moved out of the intensive care unit when a bed is available. Her chest x-ray today reveals persistent small pleural effusion with associated bibasilar infiltrate and/or atelectasis. labs today reveal a white blood cell count of 14.2, hemoglobin 8.4, sodium of 142, potassium 3.6, BUN of 25 creatinine 0.61 magnesium level of 1.9. 11/21/2024 Patient is seen in follow-up today continues in the ICU on tracheostomy and PEG tube. Patient is continued on trach collar with pulmonary software test developer following and working on transferring to [facility] for continued ongoing care. White count remains elevated and patient is maintained on antibiotics with infectious disease following. Case management following as patient requires insurance authorization which is currently pending. Possible discharge planning in the next 24 hours to LTAC 11/22/2024 Patient is seen in follow-up in the ICU although is a downgrade once a bed becomes available on 3 S. Insurance authorization was denied for LTAC requesting a peer to peer. Attempted to do peer to peer with multiple phone calls and insurance company reporting there was no reference number and unable to locate the denial. Will attempt to call back again with the reference number that was provided to me from the third insurance call. Patient is afebrile maintained on tracheostomy with pulmonary and infectious disease following. Orthopedics following with no plans of further surgical intervention recommending outpatient follow-up. Patient continues on trach collar with 28% FiO2. Patient needs frequent suctioning and cannulation and currently has a #6 Shiley nonfenestrated. Patient maintained on aspiration precautions with PEG tube and tolerating tube feeds thus far. Patient is significantly weak and will need extensive physical therapy on discharge. Patient was independent and ambulatory prior to this hospitalization. 11/23/2024 Patient is seen in follow-up today maintained on antibiotics with infectious disease following. Orthopedics recommending outpatient follow-up and medically stable with no further plans of surgical intervention at this time. Patient initially planning on LTAC for continued frequent suctioning and decannulation as patient did require tracheostomy and PEG tube placement. [id number] was attempted although denied recommending staying hospitalized until decannulated or possible penitentiary. Patient with case management following making other referrals to [facility] that provide tracheostomy care services. Patient will require insurance authorization for penitentiary as well and will be submitted per case management once there is an accepting facility. Patient is afebrile and white count is trending down currently at 14. Continue with aspiration precautions and monitoring PEG tube residuals closely. 11/24/2024 Patient is seen in follow-up today with no acute overnight issues noted. Patient requiring frequent suctioning via tracheostomy and continued on treatments with multiple consultations following. Infectious disease following as white count is mildly elevated with concerns of Erin will give a dose of Diflucan and continue antibiotics for now. Patient will likely not require antibiotics on discharge. Patient awaiting acceptance at an [facility] for discharge planning as patient is significantly weak and also needs continued tracheostomy care with decannulation. Patient is currently maintained on tube feeds and tolerating although per nursing staff having frequent episodes of diarrhea likely secondary to the type of tube feeding which is being adjusted by dietary. Will order C. difficile and rule out. 11/25/2024 Patient is seen in follow-up today maintained on antibiotics with infectious disease following and will continue current regimen. Patient will likely not require antibiotics on discharge. Case management following currently working on ECF as patient did not qualify for LTAC and looking into resources at provide tracheostomy care. Patient currently maintained on tracheostomy with an FiO2 of 28% and 5 L. Patient tolerating well continues with frequent suctioning needs and strongly recommend aspiration precautions. Patient tolerating tube feeds and has been adjusted per dietary as patient was having multiple episodes of diarrhea. C. difficile was tested and ruled out and will add Imodium as needed. 11/28/2024 Patient is seen in follow-up currently sitting up in the chair today. Patient is significantly weak with prolonged hospitalization and case management and physical therapy following recommending ECF for continued tracheostomy care with frequent suctioning as well as PT/OT therapy. Patient is tolerating tube feeds and will continue current regimen with aspiration precautions. Will have speech reevaluate and is scheduled to undergo MBS later today or possibly tomorrow morning. Case management has an accepting ECF and is pending insurance authorization. Patient is afebrile and white count is trending down. Patient is continued on antibiotics although will not require antibiotics on discharge. Infectious diseases following. 11/29/2024 Patient is seen in follow-up today being followed by speech scheduled to undergo modified barium swallow study today as patient reports she would like to eat. Patient continues with trach collar and PEG tube and is maintained on tube feeds and tolerating. Patient needs constant suctioning and education regarding trach eostomy care. Case management is following arranging for discharge planning to ECF for continued strength and mobility as well as tracheostomy and respiratory care. Patient is afebrile with no reports of chest pain or shortness of breath. Patient continues on Diflucan and has completed the course of antibiotics for Pseudomonas aeruginosa in the sputum. Infectious diseases following and will no t require antibiotics on discharge. 11/30/2024 Patient is seen and evaluated in follow-up today was advanced in diet per speech although per pulmonary would like to keep the patient n.p.o. and possibly assess the cannulating in the next few days. Patient is tolerating tube feeds at this time would recommend aspiration precautions with head of the bed elevated. Patient has been accepted at [facility] currently awaiting insurance authorization. Patient is afebrile and denies chest pain. Patient continues to report shortness of breath and has frequent secretions that needs suctioning. Review of systems: Constitutional: No reports of fatigue, fever, or chills Cardiovascular: No reports of chest pain or palpitations Respiratory: No reports of worsening shortness of breath, reports frequent suc tioning GI: No reports of nausea, vomiting, reports of improving loose stools, reports to feeling hungry and wants to eat : No reports of dysuria or retention Neurovascular: reports of generalized weakness All medications have been reviewed Physical Examination: GENERAL EXAM: This is a 54-year-old female, currently on tracheostomy with an FiO2 of 28% and 5 L of oxygen, well-developed, elderly appearing, thin built HEAD: Normocephalic. Normal reaction of pupils, equal size. Tracheostomy noted with no drainage on the gauze although there is significant secretions noted that required suctioning THROAT: No erythema or exudates. NECK: No masses, no JVD. CHEST: No chest wall deformity. LUNGS: Diminished breath sounds bilaterally with some scattered rhonchi and bronchial congestion noted, able to deep cough at times CVS: S1 and S2 muffled ABDOMEN: No hepatosplenomegaly, normal bowel sounds, no guarding or rigidity. Peg tube in place. SPINE: No scoliosis or deformity. Surgical dressing dry and intact. SKIN: No rashes CENTRAL NERVOUS SYSTEM: No focal deficits noted, tone is normal in all 4 extremities. Diffusely weak EXTREMITIES: There is no peripheral edema. No clubbing, no cyanosis. Peripheral pulses are intact. Assessment: -Altered mental status from acute toxic and metabolic encephalopathy with episode of unresponsive, likely related to narcotics versus sepsis, improved and at baseline -Likely aspiration pneumonia -Pseudomonas pneumonia Healthcare acquired with septic shock POA -Acute hypoxic/hypercapnic respiratory failure; as indicated above; patient remains on tracheostomy and PEG tube placement -Surgical site infection/wound dehiscence and Patient is status post surgery on 10/27/2024 for open treatment of a T8 fracture, irrigation and excisional debridement of thoracic spine wound measuring 10 x 7 x 4 cm, posterior lateral instrumented fusion of T7-T11 and cement augmentation of T8-T10 vertebral bodies; Orthopedic surgery consulted and felt the wound was noninfectious and healing well. -Leukocytosis/sepsis, improving and trending down -Hypernatremia, improved -Diarrhea, C. difficile ruled out -History of hypertension; propranolol 20 mg twice daily has been resumed; prazosin 2 mg twice daily on hold -Macroctyic anemia -Hyperlipidemia; currently not on any statin therapy -Hypothyroidism; levothyroxine 88 mcg daily -History of CAD -Chronic heart failure with preserved EF with no acute exacerbation -History of COPD/Asthma -PTSD/Bipolar/Borderline personality -Chronic nicotine use -Polysubstance use -Rectal prolapse -Hx seizure disorder -Gastroesophageal reflux DVT prophylaxis; SCDs/subcu heparin CODE STATUS; full code Plan: -Patient was intubated and mechanically ventilated in ED. patient has been extubated and is currently on a trach collar with an FiO2 of 28% and tolerating trach collar off of the vent. Insurance was denied for LTAC and case management following and has been accepted at [facility] in [place] who can accommodate frequent tracheostomy suctioning and care pending insurance authorization. Insurance authorization admitted by [facility] liaison and currently pending -Blood culture remain negative with infectious disease following and will not require antibiotics on discharge. Continue current regimen during hospitalization -Sputum culture revealing pseudomonas aeruginosa. x2 and has completed adequate IV antibiotics in the form of Zosyn per ID and is continued on Diflucan with concerns of Erin. Patient will likely not require antibiotics on discharge. Patient has had adequate antibiotics during hospitalization -Patient has been transitioned to oral prednisone and tapering, currently on 20 mg daily -Patient reports to feeling hungry and would like to try to eat. Patient underwent modified barium and is being started on a dysphagia diet. Strongly recommend aspiration precautions and assistance with meals and head of the bed elevated 30 to 45 degrees at all times. Per pulmonary would like to keep the patient n.p.o. as they are discussing possibly decannulation for evaluation. -Antiseizure medications have been resumed; we do not carry briviact so patient was transitioned over to keppra. -Monitor electrolytes and renal function, replace electrolytes per protocol -Plan is for ECF that can accommodate respiratory care with tracheostomy on discharge. Patient will also require a new insurance authorization which per case management has been submitted and pending at this time. [facility] reviewing and will be submitting for insurance authorization Due to multiple complex medical issues, overall prognosis is guarded Will discuss further with other consultations regarding possible discharge planning in the next 2 days The impression and plan of care has been dictated by Kristina Wells, Nurse Practitioner as directed. Dr. Lora MD I have performed a history and physical examination and medical decision making of this patient, discussed the same with the dictator, and agree with the dictators assessment and plan as written, documented as a scribe. Based on total visit time, I have performed more than 50% of this visit. Objective - Vital Signs Vital signs: Vital Signs Temp 98.4 F 11/30/24 07:35 Pulse 93 11/30/24 09:39 Resp 20 11/30/24 07:35 BP 133/86 11/30/24 07:35 Pulse Ox 100 11/30/24 09:19 FiO2 28 11/30/24 09:19 Intake & Output 11/29/24 11/30/24 11/30/24 18:59 06:59 18:59 Intake Total 240 10 Output Total 1300 Balance 240 -1300 10 Weight 47.5 kg Intake: IV 10 Invasive Line 1 10 Oral 240 Output: Urine 1300 Other: Voiding Method Indwelling Catheter Indwelling Catheter ABP, PAP, CO, CI - Last Documented Arterial Blood Pressure 158/76 - Labs CBC & Chem 7: 11/27/24 06:55 11/27/24 06:55 Labs: Abnormal Lab Results - Last 24 Hours (Table) 11/29/24 11/29/24 11/29/24 Range/Units 12:02 17:57 23:59 POC Glucose (mg/dL) 129 H 156 H 119 H (70-110) mg/dL 11/30/24 Range/Units 05:56 POC Glucose (mg/dL) 149 H (70-110) mg/dL
[2024-12-01 06:23] LABS: Glucose,Whole Blood 129 mg/dL (70-110)
[2024-12-01 06:45] LABS: Anisocytosis Slight; Basophils % (A) 0 %; Eosinophils # (A) 0.3 k/uL (0-0.7); Eosinophils % (A) 3 %; HCT 27.2 % (34.0-46.0); HGB 8.2 gm/dL (11.4-16.0); Hypochromasia Moderate; Lymphocytes # (A) 1.2 k/uL (1.0-4.8); Lymphocytes % (A) 11 %; MCH 29.5 pg (25.0-35.0); MCV 98.3 fL (80.0-100.0); Macrocytosis Slight; Mean Platelet Volume 8.4; Monocytes # (A) 0.4 k/uL (0-1.0); Monocytes % (A) 4 %; Neutrophils # (A) 8.4 k/uL (1.3-7.7); Neutrophils % (A) 81 %; Platelet Count 399 k/uL (150-450); RBC 2.76 m/uL (3.80-5.40); RDW 18.3 % (11.5-15.5); WBC 10.4 k/uL (3.8-10.6)
[2024-12-01 07:02] LABS: African American GFR (CKD) >90 (>60 ml/min/1.73 sqM); Anion Gap 7 mmol/L; Blood Urea Nitrogen 23 mg/dL (7-17); Calcium 9.1 mg/dL (8.4-10.2); Carbon Dioxide 23 mmol/L (22-30); Chloride 106 mmol/L (98-107); Glucose 121 mg/dL (74-99); Non-African American GFR(CKD) >90 (>60 ml/min/1.73 sqM); Potassium 3.6 mmol/L (3.5-5.1); Sodium 136 mmol/L (137-145)
[2024-12-01 11:27] LABS: Glucose,Whole Blood 110 mg/dL (70-110)
--- NOTE | 2024-12-01 12:06 | P.DS ---
Providers Date of admission: 11/06/24 14:06 Expected date of discharge: 12/01/24 Attending physician: Tavia Masterson MD Consults: 11/06/24 14:06 Consult Physician Stat Consulting Provider: Jadyn Starkey Consult Reason/Comments: Critical care management Do you want consulting provider notified?: Yes Consult Physician Urgent Consulting Provider: Leonel Mchugh Consult Reason/Comments: Wound infection Do you want consulting provider notified?: Yes Consult Physician Urgent Consulting Provider: Chevy Chang Consult Reason/Comments: Wound infection Do you want consulting provider notified?: Yes Primary care physician: Harpreet Ballard Hospital Course: Final diagnosis Altered mental status from acute toxic and metabolic encephalopathy with episode of unresponsive, likely related to narcotics versus sepsis, improved and at baseline -Likely aspiration pneumonia -Pseudomonas pneumonia Healthcare acquired with septic shock POA -Acute hypoxic/hypercapnic respiratory failure; as indicated above; patient remains on tracheostomy and PEG tube placement -Surgical site infection/wound dehiscence and Patient is status post surgery on 10/27/2024 for open treatment of a T8 fracture, irrigation and excisional debridement of thoracic spine wound measuring 10 x 7 x 4 cm, posterior lateral instrumented fusion of T7-T11 and cement augmentation of T8-T10 vertebral bodies; Orthopedic surgery consulted and felt the wound was noninfectious and healing well. -Leukocytosis/sepsis, improving and trending down -Hypernatremia, improved -Diarrhea, C. difficile ruled out -History of hypertension; propranolol 20 mg twice daily has been resumed; prazosin 2 mg twice daily on hold -Macroctyic anemia -Hyperlipidemia; currently not on any statin therapy -Hypothyroidism; levothyroxine 88 mcg daily -History of CAD -Chronic heart failure with preserved EF with no acute exacerbation -History of COPD/Asthma -PTSD/Bipolar/Borderline personality -Chronic nicotine use -Polysubstance use -Rectal prolapse -Hx seizure disorder -Gastroesophageal reflux DVT prophylaxis; SCDs/subcu heparin CODE STATUS; full code Discharge disposition Patient is being discharged in a stable condition with guarded prognosis to [facility]. Patient will follow-up with Dr. Ballard in the outpatient setting upon discharge. Patient is to continue with current medications including Diflucan for 10 days on discharge and close outpatient follow-up with orthopedics and pulmonary as scheduled. Total time taken is greater than 35 minutes. Hospital course This is a 54-year-old female who was recently admitted due to respiratory failure and altered mental status and obtunded with concerns of narcotic use and also highly concerned for aspiration pneumonia. Patient did have positive sputum cultures with Pseudomonas maintained on antibiotics with prolonged hospitalization is currently continued on Diflucan and will for 10 days as patient's repeat sputum culture showing Erin. Patient did require mechanical ventilation in the ICU and he has transition to tracheostomy with PEG tube placement. Patient was recently just reevaluated by speech on the and modified barium swallow study was performed and passed and is recommending dysphagia diet level 2 ground with strict aspiration precautions. Patient to continue with tracheostomy and [facility] Recommend patient to follow-up with orthopedics for her chronic back and recent surgery as well as pulmonary outpatient for this tracheostomy. Patient has been cleared for discharge to [facility] by consultations and will be going to [facility] and has received insurance authorization. Please refer to other consultation notes for further HPI. Currently no reports of chest pain, shortness of breath, or palpitations. Patient is afebrile. No reports of nausea or vomiting and patient is tolerating diet. Patient will be going to [facility] today. Guarded prognosis Physical exam: Gen: This is a 54-year-old female who is awake, alert and oriented x 2-3, baseline, well-developed, elderly appearing, thin built HEENT: Head is atraumatic, normocephalic. Pupils equal, round. Sclerae is anicteric. NECK: Supple. No JVD. No lymphadenopathy. No thyromegaly. LUNGS: Diminished breath sounds bilaterally with some bronchial congestion noted in the upper airways along with coarse rhonchi. No intercostal retractions. HEART: S1, S2 are muffled ABDOMEN: Soft. Thin. Bowel sounds are present. No masses. No tenderness. PEG tube noted EXTREMITIES: No pedal edema. No calf tenderness. NEUROLOGICAL: Patient is awake, alert and oriented x2-3. Cranial nerves 2 through 12 are grossly intact. Diffusely weak Please refer to medication reconciliation sheet for a list of medications. The impression and plan of care has been dictated by Kristina Wells, Nurse Practitioner as directed. Dr. Lora MD I have performed a history and examination and MDM of this patient, discussed the same with the dictator, and agree with the dictator's assessment and plan as written ,documented as a scribe. Based on total visit time, I have performed more than 50% of the visit. Patient Condition at Discharge: Fair Plan - Discharge Summary Discharge Rx Participant: Yes New Discharge Prescriptions: New predniSONE [Deltasone] 20 mg PO DAILY tab Fluconazole [Diflucan] 100 mg PO DAILY 10 Days #10 tab Ipratropium-Albuterol Nebulize [Duoneb 0.5 mg-3 mg/3 ml Soln] 3 ml INHALATION RT-QID each Ipratropium-Albuterol Nebulize [Duoneb 0.5 mg-3 mg/3 ml Soln] 3 ml INHALATION RT-Q2H PRN each PRN Reason: Shortness Of Breath Or Wheezing Enoxaparin [Lovenox] 40 mg SQ DAILY each HYDROcodone/APAP 5-325MG [Rockwood 5-325] 1 each PO Q6HR PRN #6 tab PRN Reason: Moderate To Severe Pain (4-10) Loperamide [Imodium] 2 mg PO QID PRN cap PRN Reason: Diarrhea Formoterol Fumarate [Perforomist] 20 mcg INHALATION RT-BID ml Continue Sertraline [Zoloft] 200 mg PO DAILY Asenapine Maleate [Saphris] 10 mg SUBLINGUAL BID Pantoprazole Sodium [Protonix] 40 mg PO BID Albuterol Sulfate [Proair Hfa] 2 puff INHALATION RT-QID PRN PRN Reason: Shortness Of Breath Prazosin HCl [Minipress] 2 mg PO BID@1700,2100 Fluticasone/Umeclidin/Vilanter [Trelegy Ellipta 100-62.5-25] 1 puff INHALATION RT-DAILY Brivaracetam [Briviact] 100 mg PO BID Budesonide [Pulmicort] 0.5 mg INHALATION RT-BID PRN PRN Reason: Shortness Of Breath Fluticasone Nasal Lowell [Flonase Nasal Lowell] 1 spray EA NOSTRIL DAILY Propranolol [Inderal] 20 mg PO BID Cholecalciferol (Vitamin D3) [Vitamin D3 (50 Mcg = 2000 Iu)] 50 mcg PO DAILY Acetaminophen Tab [Tylenol] 500 mg PO Q6HR PRN PRN Reason: Mild Pain (Scale 1 To 3) Tamsulosin HCl [Flomax] 0.4 mg PO DAILY #30 capsule Topiramate [Trokendi Xr] 100 mg PO DAILY rOPINIRole HCL [Requip] 2 mg PO BID Cetirizine HCl [Zyrtec] 10 mg PO DAILY Levothyroxine Sodium [Synthroid] 88 mcg PO DAILY Montelukast [Singulair] 10 mg PO HS busPIRone HCL 15 mg PO TID Albuterol Nebulized [Ventolin Nebulized] 2.5 mg INHALATION RT-BID Daily-Kylee(With Folic Acid) 400mcg Tablet 1 tab PO DAILY Changed Furosemide [Lasix] 20 mg PO DAILY #0 Gabapentin [Neurontin] 300 mg PO TID #0 Discontinued Butalb/Acetaminophen/Caffeine [Fioricet 50-325-40] 1 tab PO Q6H PRN PRN Reason: Migraine Headache Ipratropium-Albuterol Nebulize [Duoneb 0.5 mg-3 mg/3 ml Soln] 3 ml INHALATION RT-QID Ibuprofen [Motrin] 800 mg PO Q8H PRN PRN Reason: Moderate Pain (Scale 4 To 6) cefaDROXiL [Duricef] 500 mg PO Q12HR 5 Days #10 cap Cyclobenzaprine [Flexeril] 10 mg PO TID #21 tab HYDROcodone/APAP 10-325MG [Rockwood 10-325] 1 tab PO Q6HR PRN #28 tab PRN Reason: Pain Sennosides/Docusate Sodium [Senna Plus 8.6-50 mg Softgel] 1 cap PO DAILY cloBAZam [Sympazan] 10 mg PO BID hydrOXYzine pamoate [Vistaril] 50 mg PO TID PRN PRN Reason: Anxiety rOPINIRole HCL [Requip] 1 mg PO BID Discharge Medication List Asenapine Maleate [Saphris] 10 mg SUBLINGUAL BID 04/30/17 [History] Sertraline [Zoloft] 200 mg PO DAILY 04/30/17 [History] Pantoprazole Sodium [Protonix] 40 mg PO BID 01/07/19 [History] Topiramate [Trokendi Xr] 100 mg PO DAILY 04/15/21 [History] Albuterol Sulfate [Proair Hfa] 2 puff INHALATION RT-QID PRN 05/10/21 [History] Prazosin HCl [Minipress] 2 mg PO BID@1700,2100 05/10/21 [History] rOPINIRole HCL [Requip] 2 mg PO BID 05/10/21 [History] Fluticasone/Umeclidin/Vilanter [Trelegy Ellipta 100-62.5-25] 1 puff INHALATION RT-DAILY 12/10/22 [History] Brivaracetam [Briviact] 100 mg PO BID 07/10/23 [History] Budesonide [Pulmicort] 0.5 mg INHALATION RT-BID PRN 07/27/23 [History] Cetirizine HCl [Zyrtec] 10 mg PO DAILY 07/27/23 [History] Fluticasone Nasal Lowell [Flonase Nasal Lowell] 1 spray EA NOSTRIL DAILY 07/27/23 [History] Levothyroxine Sodium [Synthroid] 88 mcg PO DAILY 07/27/23 [History] Propranolol [Inderal] 20 mg PO BID 07/27/23 [History] Acetaminophen Tab [Tylenol] 500 mg PO Q6HR PRN 10/25/24 [History] Albuterol Nebulized [Ventolin Nebulized] 2.5 mg INHALATION RT-BID 10/25/24 [History] Cholecalciferol (Vitamin D3) [Vitamin D3 (50 Mcg = 2000 Iu)] 50 mcg PO DAILY 10/25/24 [History] Montelukast [Singulair] 10 mg PO HS 10/25/24 [History] busPIRone HCL 15 mg PO TID 10/25/24 [History] Tamsulosin HCl [Flomax] 0.4 mg PO DAILY #30 capsule 11/03/24 [Rx] Daily-Kylee(With Folic Acid) 400mcg Tablet 1 tab PO DAILY 11/06/24 [History] Enoxaparin [Lovenox] 40 mg SQ DAILY each 12/01/24 [Rx] Fluconazole [Diflucan] 100 mg PO DAILY 10 Days #10 tab 12/01/24 [Rx] Formoterol Fumarate [Perforomist] 20 mcg INHALATION RT-BID ml 12/01/24 [Rx] Furosemide [Lasix] 20 mg PO DAILY #0 12/01/24 [Rx] Gabapentin [Neurontin] 300 mg PO TID #0 12/01/24 [Rx] HYDROcodone/APAP 5-325MG [Rockwood 5-325] 1 each PO Q6HR PRN #6 tab 12/01/24 [Rx] Ipratropium-Albuterol Nebulize [Duoneb 0.5 mg-3 mg/3 ml Soln] 3 ml INHALATION RT-Q2H PRN each 12/01/24 [Rx] Ipratropium-Albuterol Nebulize [Duoneb 0.5 mg-3 mg/3 ml Soln] 3 ml INHALATION RT-QID each 12/01/24 [Rx] Loperamide [Imodium] 2 mg PO QID PRN cap 12/01/24 [Rx] predniSONE [Deltasone] 20 mg PO DAILY tab 12/01/24 [Rx] Follow up Appointment(s)/Referral(s): Harpreet Ballard [Primary Care Provider] - 1-2 days Leonel Mchugh DO [Doctor of Osteopathic Medicine] - 4 Weeks Activity/Diet/Wound Care/Special Instructions: Incision care: Keep pressure off thoracic incision, remaining sutures may be removed by care facility when appropriate. Keep incision clean and dry. Continue patient on antibiotics Daily PT/OT, continue to encourage patient with bed exercises and increase activity as tolerated.
[2024-12-01] MEDS: NICOTINE 21MG/24HR PATCH TRANSDERM SCH (13:15)
--- NOTE | 2024-12-01 14:00 | P.PN ---
Subjective Progress Note Date: 12/01/24 Principal diagnosis: Reason for follow-up is pneumonia Patient is a 54-year-old female with a past medical history significant for COPD DVT hypertension hyperlipidemia who recently did have a cervical thoracic spine surgery revision for a nonhealing wound to the mid/upper back area patient cultures were negative has been brought to the hospital on the patient was found to be unresponsive requiring elevation and admission to the ICU Patient is status post tracheostomy and PEG tube placement completed on 11/15/2024. On today's evaluation that is 12/01/2024,the patient remains to be afebrile, patient is on trach collar supplemental oxygen and denies any shortness of breath no chest pain or any worsening cough.Patient denies having any nausea or vomiting, no abdominal pain and no diarrhea. Patient white count is 10.4, creatinine 0.63 Objective - Vital Signs Vital signs: Vital Signs Temp 98.6 F 12/01/24 01:25 Pulse 92 12/01/24 11:30 Resp 16 12/01/24 07:12 BP 145/81 12/01/24 07:12 Pulse Ox 98 12/01/24 07:46 FiO2 28 12/01/24 07:46 Intake & Output 11/30/24 12/01/24 12/01/24 18:59 06:59 18:59 Intake Total 20 Output Total 1200 750 250 Balance -1180 -750 -250 Weight 47.5 kg Intake: IV 20 Invasive Line 1 20 Output: Urine 1200 750 250 Other: Voiding Method Indwelling Catheter Indwelling Catheter # Voids 1 # Bowel Movements 1 ABP, PAP, CO, CI - Last Documented Arterial Blood Pressure 158/76 - Exam GENERAL DESCRIPTION: Middle-age female lying in bed in no distress RESPIRATORY SYSTEM: Unlabored breathing , decreased breath sounds at bases HEART: S1 S2 regular rate and rhythm , ABDOMEN: Soft , no tenderness EXTREMITIES: No edema feet - Labs CBC & Chem 7: 12/01/24 05:56 12/01/24 05:56 Labs: Abnormal Lab Results - Last 24 Hours (Table) 11/30/24 12/01/24 12/01/24 Range/Units 18:15 05:56 05:56 RBC 2.76 L (3.80-5.40) m/uL Hgb 8.2 L (11.4-16.0) gm/dL Hct 27.2 L (34.0-46.0) % MCHC 30.0 L (31.0-37.0) g/dL RDW 18.3 H (11.5-15.5) % Neutrophils # 8.4 H (1.3-7.7) k/uL Sodium 136 L (137-145) mmol/L BUN 23 H (7-17) mg/dL Glucose 121 H (74-99) mg/dL POC Glucose (mg/dL) 139 H (70-110) mg/dL 12/01/24 Range/Units 06:22 RBC (3.80-5.40) m/uL Hgb (11.4-16.0) gm/dL Hct (34.0-46.0) % MCHC (31.0-37.0) g/dL RDW (11.5-15.5) % Neutrophils # (1.3-7.7) k/uL Sodium (137-145) mmol/L BUN (7-17) mg/dL Glucose (74-99) mg/dL POC Glucose (mg/dL) 129 H (70-110) mg/dL Assessment and Plan (1) Pneumonia Current Visit: Yes Status: Acute Code(s): J18.9 - PNEUMONIA, UNSPECIFIED ORGANISM SNOMED Code(s): 900873650 (2) Abnormal CT scan, chest Current Visit: Yes Status: Acute Code(s): R93.89 - ABNORMAL FINDINGS ON DX IMAGING OF OTH BODY STRUCTURES SNOMED Code(s): 68417721169654240 (3) Leukocytosis Current Visit: No Status: Acute Code(s): D72.829 - ELEVATED WHITE BLOOD CELL COUNT, UNSPECIFIED SNOMED Code(s): 858542251 Plan: 1patient presented to hospital after the patient was found to be unresponsive at home concerning for possible drug overdose also noted to have significant finding on a chest x-ray and the CT concerning for possible pneumonia question of aspiration etiology in this patient has been around the hospital concerning for possible resistant gram-positive as well as gram-negative pathogen, 2-patient did have Pseudomonas aeruginosa in the sputum concerning for pneumonia possible aspiration, for which the patient has received adequate Zosyn therapy 3patient is afebrile white count has normalized, patient will continue the short course of oral Diflucan and no need for antibiotics on discharge Dictation was produced using [employer] dictation software. please excuse any grammatical, word or spelling errors. Time with Patient: Less than 30
--- NOTE | 2024-12-01 14:14 | P.PN ---
Subjective Progress Note Date: 12/01/24 The patient is seen today November 23, 2024 in follow-up on the selective care unit. She was transferred out of the intensive care unit yesterday. She is awake and alert in no acute distress. She is maintaining good O2 saturations in the 90s on 28% FiO2 via trach collar. Her tracheotomy tube is a #6 Shiley, nonfenestrated, the cuff is deflated. She is tolerating this very well. She is afebrile. Hemodynamically stable. White count 14.1. Hemoglobin 8.3. Platelets 449. Sodium 140. Potassium 3.6. Bicarb 27. BUN 21. Creatinine 0.59. Glucose 116. She remains on DuoNeb inhalations, Pulmicort and Perforomist inhalations, prednisone taper. Remains on antibiotics in the form of Zosyn per ID service. Lovenox for DVT prophylaxis. She is being nourished with vital HP at 50 cc/h. The patient is seen today November 24, 2024 in follow-up on the selective care unit. She is awake and alert in no acute distress. Resting comfortably in bed. She is maintaining good O2 saturations in the upper 90s on 28% FiO2 via trach collar. She is afebrile. Hemodynamically stable. She has received 1 unit of packed red blood cells this admission. Current hemoglobin 8.4. Platelets 415. White count 14.1. Sodium 142. Potassium 3.3. Bicarb 26. BUN 20. Creatinine 0.59. Glucose 108.` She remains on Zosyn for her Pseudomonas lung infection. Continued on DuoNeb inhalations, Pulmicort and Perforomist inhalations, prednisone. Lovenox for DVT prophylaxis. She remains on vital HP at 50 cc/h for nourishment. The patient is seen today November 25, 2024 in follow-up on the selective care unit. She is currently sitting up in bed. Awake and alert in no acute distress. She is maintaining O2 saturations in the 90s on 28% FiO2 via trach collar. Similar left basilar pleural effusion with adjacent atelectasis. She remains on Zosyn per ID service. White count 13.6. Hemoglobin 8.5. Platelets 416. Sodium 142. Potassium 3.2. Bicarb 24. BUN 18. Creatinine 0.63. Glucose 122. She remains on Pulmicort and Perforomist inhalations, DuoNeb inhalations, prednisone taper. Lovenox for DVT prophylaxis. She is continued on vital HP at 50 cc/h via PEG tube. The patient is seen today November 26, 2024 in follow-up on the selective care unit. She is awake and alert in no acute distress. Resting fairly comfortably in bed. She continues to maintain good O2 saturations in the 90s on 28% FiO2 via trach collar. She is being nourished with Jevity at 45 mL/h. White count 13.3. Hemoglobin 8.6. Platelets 378. Sodium 141. Potassium 3.6. Bicarb 25. BUN 18. Creatinine 0.67. Glucose 127. Elations, Pulmicort and performance and elations, prednisone taper. Lovenox for DVT prophylaxis. Continued on Zosyn per ID service. The patient is seen today November 27, 2024 in follow-up on the selective care unit. She is currently sitting up in a chair. Awake and alert in no acute distress. Denies any worsening shortness of breath, cough or congestion. She is maintaining good O2 saturations in the 90s on 28% trach collar. She is afebrile. Hemodynamically stable. She is being nourished with Jevity tube feedings at 45 mL/h. She is continued on DuoNeb inhalations, Pulmicort and Perforomist inhalations, Singulair, prednisone taper. Lovenox for DVT prophylaxis. White count 11.9. Hemoglobin 8.3. Platelets 365. Sodium 142. Potassium 3.5. Bicarb 25. BUN 18. Creatinine 0.62. Glucose 105. The patient is seen today December 01, 2024 in follow-up on the regular medical floor. She is currently awake and alert in no acute distress. He is maintaining good O2 saturations in the 90s on 28% trach collar. She continues to be nourished with Jevity tube feedings at 45 mL/h. She is continued on DuoNeb and elations, Pulmicort and performance inhalations, prednisone taper. Lovenox for DVT prophylaxis. Continued on Diflucan. NicoDerm patch in place. White count 10.4. Hemoglobin 8.2. Platelets 399. Sodium 136. Potassium 3.6. Bicarb 23. BUN 23. Creatinine 0.63. Glucose 121. Objective - Vital Signs Vital signs: Vital Signs Temp 98.6 F 12/01/24 01:25 Pulse 92 12/01/24 11:30 Resp 16 12/01/24 07:12 BP 145/81 12/01/24 07:12 Pulse Ox 98 12/01/24 07:46 FiO2 28 12/01/24 07:46 Intake & Output 11/30/24 12/01/24 12/01/24 18:59 06:59 18:59 Intake Total 20 Output Total 1200 750 250 Balance -1180 -750 -250 Weight 47.5 kg Intake: IV 20 Invasive Line 1 20 Output: Urine 1200 750 250 Other: Voiding Method Indwelling Catheter Indwelling Catheter # Voids 1 # Bowel Movements 1 ABP, PAP, CO, CI - Last Documented Arterial Blood Pressure 158/76 - Exam GENERAL EXAM: Awake, pleasant 54-year-old female, resting comfortably, on 28% FiO2 via trach collar, in no apparent distress. HEAD: Normocephalic. EYES: Normal reaction of pupils, equal size. NOSE: Clear with pink turbinates. THROAT: Tracheostomy tube secured in place. No erythema or exudates. NECK: No masses, no JVD. CHEST: No chest wall deformity. LUNGS: Equal air entry with no crackles, wheeze, rhonchi or dullness. CVS: S1 and S2 normal with no audible murmur, regular rhythm. ABDOMEN: PEG tube exit site clean and dry. No hepatosplenomegaly, normal bowel sounds, no guarding or rigidity. SPINE: No scoliosis or deformity SKIN: No rashes CENTRAL NERVOUS SYSTEM: No noted focal deficit, tone is normal in all 4 extremities. EXTREMITIES: There is no peripheral edema. No clubbing, no cyanosis. Peripheral pulses are intact. - Labs CBC & Chem 7: 12/01/24 05:56 12/01/24 05:56 Labs: Abnormal Lab Results - Last 24 Hours (Table) 11/30/24 12/01/24 12/01/24 Range/Units 18:15 05:56 05:56 RBC 2.76 L (3.80-5.40) m/uL Hgb 8.2 L (11.4-16.0) gm/dL Hct 27.2 L (34.0-46.0) % MCHC 30.0 L (31.0-37.0) g/dL RDW 18.3 H (11.5-15.5) % Neutrophils # 8.4 H (1.3-7.7) k/uL Sodium 136 L (137-145) mmol/L BUN 23 H (7-17) mg/dL Glucose 121 H (74-99) mg/dL POC Glucose (mg/dL) 139 H (70-110) mg/dL 12/01/24 Range/Units 06:22 RBC (3.80-5.40) m/uL Hgb (11.4-16.0) gm/dL Hct (34.0-46.0) % MCHC (31.0-37.0) g/dL RDW (11.5-15.5) % Neutrophils # (1.3-7.7) k/uL Sodium (137-145) mmol/L BUN (7-17) mg/dL Glucose (74-99) mg/dL POC Glucose (mg/dL) 129 H (70-110) mg/dL Assessment and Plan Assessment: Altered mental status, obtunded requiring intubation and mechanical ventilatory support on November 06, 2024. Suspect secondary to narcotics. Urine drug screen positive for opiates, barbiturates, tricyclic antidepressants, benzodiazepines and marijuana. Subsequently had undergone tracheostomy and PEG tube placement on November 15, 2024. She has been off the mechanical ventilator since November 19, 2024 and transitioned to 28% FiO2 via trach collar Acute hypoxemic and hypercapnic respiratory failure secondary to above, positive sputum culture for Pseudomonas aeruginosa, completed Zosyn Discharge from the hospital following surgery on 10/27/2024 for open treatment of a T8 fracture, irrigation and excisional debridement of thoracic spine wound measuring 10 x 7 x 4 cm, posterior lateral instrumented fusion of T7-T11 and cement augmentation of T8-T10 vertebral bodies. Chronic obstructive pulmonary disease/asthma, currently inactive and stable T2 vertebral fracture with revision of C2-T7 posterior lateral fusion on 09/09/2024 Surgical site infection and wound dehiscence, wound and blood cultures revealed no growth Acute leukocytosis, improved Macrocytic anemia Rectal prolapse with bleeding History of hypertension History of hyperlipidemia History of coronary artery disease History of heart failure with preserved ejection fraction History of gastroesophageal reflux disease History of seizure disorder History of hypothyroidism History of anxiety/depression/PTSD Plan: The patient was seen and evaluated Labs and medications reviewed Her trach is changed out for a fenestrated uncuffed Shiley Continue DuoNeb inhalations Continue a prednisone taper Continue Pulmicort and Perforomist inhalations Lovenox for DVT prophylaxis Jevity for nutritional support Awaiting placement at [facility] I have personally seen and examined the patient, performed the documentation and the assessment and plan as written. Number of minutes spent on the visit: 10 Dictation was produced using [employer] - is now [employer] dictation software. Please excuse any grammatical, word or spelling errors.
[2024-12-01 15:25] VITALS: BMI 17.9
--- NOTE | 2024-12-01 15:58 | P.PN ---
Progress Note - Text Progress Note Date: 12/01/24 The patient previously had a #6 Shiley cuffed nonfenestrated trach tube in place. Today, without incident, I replaced the tracheostomy tube, with a #4 Shiley fenestrated uncuffed tracheostomy tube. The patient tolerated the procedure well without any difficulty. The tube was secured. The respiratory therapist will attempt to get the patient a Passy-Eric valve.
[2024-12-01 16:31] LABS: Glucose,Whole Blood 143 mg/dL (70-110)
[2024-12-01 21:00] LABS: Glucose,Whole Blood 113 mg/dL (70-110)
[2024-12-02 01:48] LABS: Glucose,Whole Blood 101 mg/dL (70-110)
[2024-12-02 06:11] LABS: Glucose,Whole Blood 120 mg/dL (70-110)
[2024-12-02 08:16] VITALS: BP 126/73; RESP 17; TEMP 98.5
[2024-12-02 11:12] VITALS: PULSE 104
--- NOTE | 2024-12-02 11:14 | P.PN ---
Subjective Progress Note Date: 12/02/24 Principal diagnosis: Respiratory failure. The patient is seen today November 23, 2024 in follow-up on the selective care unit. She was transferred out of the intensive care unit yesterday. She is awake and alert in no acute distress. She is maintaining good O2 saturations in the 90s on 28% FiO2 via trach collar. Her tracheotomy tube is a #6 Shiley, nonfenestrated, the cuff is deflated. She is tolerating this very well. She is afebrile. Hemodynamically stable. White count 14.1. Hemoglobin 8.3. Platelets 449. Sodium 140. Potassium 3.6. Bicarb 27. BUN 21. Creatinine 0.59. Glucose 116. She remains on DuoNeb inhalations, Pulmicort and Perforomist inhalations, prednisone taper. Remains on antibiotics in the form of Zosyn per ID service. Lovenox for DVT prophylaxis. She is being nourished with vital HP at 50 cc/h. The patient is seen today November 24, 2024 in follow-up on the selective care unit. She is awake and alert in no acute distress. Resting comfortably in bed. She is maintaining good O2 saturations in the upper 90s on 28% FiO2 via trach collar. She is afebrile. Hemodynamically stable. She has received 1 unit of packed red blood cells this admission. Current hemoglobin 8.4. Platelets 415. White count 14.1. Sodium 142. Potassium 3.3. Bicarb 26. BUN 20. Creatinine 0.59. Glucose 108.` She remains on Zosyn for her Pseudomonas lung infection. Continued on DuoNeb inhalations, Pulmicort and Perforomist inhalations, prednisone. Lovenox for DVT prophylaxis. She remains on vital HP at 50 cc/h for nourishment. The patient is seen today November 25, 2024 in follow-up on the selective care unit. She is currently sitting up in bed. Awake and alert in no acute distress. She is maintaining O2 saturations in the 90s on 28% FiO2 via trach collar. Similar left basilar pleural effusion with adjacent atelectasis. She remains on Zosyn per ID service. White count 13.6. Hemoglobin 8.5. Platelets 416. Sodium 142. Potassium 3.2. Bicarb 24. BUN 18. Creatinine 0.63. Glucose 122. She remains on Pulmicort and Perforomist inhalations, DuoNeb inhalations, prednisone taper. Lovenox for DVT prophylaxis. She is continued on vital HP at 50 cc/h via PEG tube. The patient is seen today November 26, 2024 in follow-up on the selective care unit. She is awake and alert in no acute distress. Resting fairly comfortably in bed. She continues to maintain good O2 saturations in the 90s on 28% FiO2 via trach collar. She is being nourished with Jevity at 45 mL/h. White count 13.3. Hemoglobin 8.6. Platelets 378. Sodium 141. Potassium 3.6. Bicarb 25. BUN 18. Creatinine 0.67. Glucose 127. Elations, Pulmicort and performance and elations, prednisone taper. Lovenox for DVT prophylaxis. Continued on Zosyn per ID service. The patient is seen today November 27, 2024 in follow-up on the selective care unit. She is currently sitting up in a chair. Awake and alert in no acute distress. Denies any worsening shortness of breath, cough or congestion. She is maintaining good O2 saturations in the 90s on 28% trach collar. She is afebrile. Hemodynamically stable. She is being nourished with Jevity tube feedings at 45 mL/h. She is continued on DuoNeb inhalations, Pulmicort and Perforomist inhalations, Singulair, prednisone taper. Lovenox for DVT prophylaxis. White count 11.9. Hemoglobin 8.3. Platelets 365. Sodium 142. Potassium 3.5. Bicarb 25. BUN 18. Creatinine 0.62. Glucose 105. Progress note dated November 28, 2024. 54-year-old female who is seen today in room 381. The patient has not been in the hospital for 22 days. She is status post tracheostomy and PEG tube placement on November 15, for respiratory failure and failure to wean from mechanical ventilation. Currently, she is on a 28% trach collar. Clinically, she appears relatively stable although she does appear weak. She is in no acute distress. No new laboratory data from today other than a glucose of 138. From November 07 and from November 08, sputum show evidence of Pseudomonas aeruginosa. No recent chest x-ray. Progress note dated November 29, 2024. 54-year-old female seen today in room 381. She has not been in the hospital for 23 days. She was initially seen in the intensive care unit, after surgery. The patient is getting Jevity at 45 cc an hour. She has a midline tracheostomy and is receiving oxygen via trach collar, at 28%. We are going to change her to a uncuffed fenestrated tracheostomy tube. She did pass her swallow evaluation. Maybe later this week, she can be decannulated. Today's labs only include a glucose of 129. Progress note dated November 30, 2024. 54-year-old female seen today in room 381. She continues on trach collar 28%. The patient is also receiving Jevity at 45 cc an hour. The patient appears to be doing relatively well. She is awake and alert. No distress. No respiratory distress. The patient is still coughing up with some thick amount of secretions, and for that reason, she will not be decannulated at this time. We could advance her tracheostomy tube, to an uncuffed fenestrated tube. No new labs today other than a glucose of 149. Progress note dated December 02, 2024. 54-year-old female seen today in room 462. The patient continues on 28% trach collar. The patient is not receiving any IV fluids. The patient's tube feeds are turned off. The patient apparently is going to be discharged to a detention in [place], [place], at 10 AM. The patient is resting comfortably in bed. She is alert and awake. Her tracheostomy tube was changed the other day. We placed a Shiley tube, that was uncuffed, and is fenestrated. She also has a [place] valve. No new labs today other than a glucose of 120. Objective - Vital Signs Vital signs: Vital Signs Temp 98.5 F 12/02/24 07:34 Pulse 100 12/02/24 08:37 Resp 17 12/02/24 07:34 BP 126/73 12/02/24 07:34 Pulse Ox 98 12/02/24 08:07 FiO2 28 12/02/24 08:07 Intake & Output 12/01/24 12/02/24 12/02/24 18:59 06:59 18:59 Output Total 250 150 Balance -250 -150 Weight 47.5 kg 46.5 kg Output: Urine 250 150 Other: Voiding Method Bedside Commode Toilet Diaper # Voids 3 3 # Bowel Movements 2 ABP, PAP, CO, CI - Last Documented Arterial Blood Pressure 158/76 - Exam No acute distress, oriented 3. HEENT examination is grossly unremarkable. Mucous membranes are moist. No oral lesions. Neck supple. Full range of motion. No adenopathy thyromegaly or neck vein distention. The patient has a midline tracheostomy. A 28% trach collar is noted. Cardiovascular examination reveals regular rhythm rate. S1-S2 normal. No S3 or S4. No discernible murmur noted. Heart sounds are distant. Lungs reveal clear breath sounds. Breath sounds are equal bilaterally. No adventitious lung sounds including wheezes rhonchi or crackles. Abdomen soft bowel sounds are heard. No masses or tenderness. Extremities are intact. No cyanosis clubbing or edema. Skin is without rash or lesion. Neurologic examination is brief but nonfocal. - Labs CBC & Chem 7: 12/01/24 05:56 12/01/24 05:56 Labs: Abnormal Lab Results - Last 24 Hours (Table) 12/01/24 12/01/24 12/02/24 Range/Units 16:29 20:58 06:09 POC Glucose (mg/dL) 143 H 113 H 120 H (70-110) mg/dL Assessment and Plan Assessment: Altered mental status, obtunded requiring intubation and mechanical ventilatory support on November 06, 2024. Suspect secondary to narcotics. Urine drug screen positive for opiates, barbiturates, tricyclic antidepressants, benzodiazepines and marijuana. Subsequently had undergone tracheostomy and PEG tube placement on November 15, 2024. She has been off the mechanical ventilator since November 19, 2024 and transitioned to 28% FiO2 via trach collar. Acute hypoxemic and hypercapnic respiratory failure secondary to above, positive sputum culture for Pseudomonas aeruginosa. Discharge from the hospital following surgery on 10/27/2024 for open treatment of a T8 fracture, irrigation and excisional debridement of thoracic spine wound measuring 10 x 7 x 4 cm, posterior lateral instrumented fusion of T7-T11 and cement augmentation of T8-T10 vertebral bodies. Chronic obstructive pulmonary disease/asthma. T2 vertebral fracture with revision of C2-T7 posterior lateral fusion on 09/09/2024. Surgical site infection and wound dehiscence. Acute leukocytosis, improved. Macrocytic anemia. Rectal prolapse with bleeding. History of hypertension. History of hyperlipidemia. History of coronary artery disease. History of heart failure with preserved ejection fraction. History of gastroesophageal reflux disease. History of seizure disorder. History of hypothyroidism. History of anxiety/depression/PTSD. Plan: Plan dated November 28, 2024. The patient was seen today in room 381. She continues on updraft treatments, and a prednisone taper. She also continues on Pulmicort, and formoterol. She continues on both GI and DVT prophylaxis. She has a tracheostomy tube at the midline. She is on a 28% trach collar. She is getting Jevity for nutritional support. The patient is apparently going to be discharged to subacute rehab. Labs, x-rays, medications are reviewed. We will continue to follow. Prognosis is guarded. She remains a full code. Plan dated November 29, 2024. The patient passed her swallow evaluation today. We will convert her tracheostomy tube to a uncuffed fenestrated tube. Maybe later this week, if she is not having issues with airway secretions, and her oxygenation is good, the patient can be decannulated. Labs include only a glucose. We will continue to follow make recommendations along the way. Prognosis is guarded. Dictation was produced using [employer] software. Please excuse any grammatical, word or spelling errors. Plan dated November 30, 2024. The patient continues on 28% trach collar. We were going to switch her tr acheostomy tube to an uncuffed fenestrated tube, but the patient is still having issues with secretions. The patient also may be discharged from the hospital in the near future, and therefore, no changes were made today. The patient continues on 20% trach collar. She is getting Jevity at 45 cc an hour. No IV fluids. Labs, x-rays, and medications are reviewed. We will continue to follow with patient, make recommendations along the way. Prognosis is guarded. Dictation was produced using [employer] software. Please excuse any grammatical, word or spelling errors. Plan dated December 02, 2024. The patient appears to be doing relatively well. She is awake and alert. She is resting comfortably in bed. She has a tracheostomy tube, in the midline of the neck. She is using a 28% trach collar. No IV fluids. Tube feedings have been turned off. The patient has a #4 Shiley uncuffed fenestrated tracheostomy tube. She also has a Pass[place] valve that may use periodically. Labs, x-rays, and all medications are reviewed. The patient will be discharged to a detention in [place], [place] today. Prognosis is guarded. Dictation was produced using [employer] dictation software. Please excuse any grammatical, word or spelling errors. Time with Patient: Less than 30
--- NOTE | 2024-12-02 14:39 | P.PN ---
Subjective Progress Note Date: 12/02/24 Principal diagnosis: Reason for follow-up is pneumonia Patient is a 54-year-old female with a past medical history significant for COPD DVT hypertension hyperlipidemia who recently did have a cervical thoracic spine surgery revision for a nonhealing wound to the mid/upper back area patient cultures were negative has been brought to the hospital on the patient was found to be unresponsive requiring elevation and admission to the ICU Patient is status post tracheostomy and PEG tube placement completed on 11/15/2024. On today's evaluation that is 12/02/2024, the patient continues to be afebrile, the patient is on trach collar and breathing comfortably, the Pt does not seem to be any distress sleeping comfortably and no significant changes reported. Patient did have a white count of 10.4 as of yesterday with a creatinine 0.63 Objective - Vital Signs Vital signs: Vital Signs Temp 98.5 F 12/02/24 07:34 Pulse 104 H 12/02/24 11:23 Resp 17 12/02/24 07:34 BP 126/73 12/02/24 07:34 Pulse Ox 98 12/02/24 08:07 FiO2 28 12/02/24 08:07 Intake & Output 12/01/24 12/02/24 12/02/24 18:59 06:59 18:59 Output Total 250 150 Balance -250 -150 Weight 47.5 kg 46.5 kg Output: Urine 250 150 Other: Voiding Method Bedside Commode Toilet Diaper # Voids 3 3 # Bowel Movements 2 ABP, PAP, CO, CI - Last Documented Arterial Blood Pressure 158/76 - Exam GENERAL DESCRIPTION: Middle-age female lying in bed in no distress RESPIRATORY SYSTEM: Unlabored breathing , decreased breath sounds at bases HEART: S1 S2 regular rate and rhythm , ABDOMEN: Soft , no tenderness EXTREMITIES: No edema feet - Labs CBC & Chem 7: 12/01/24 05:56 12/01/24 05:56 Labs: Abnormal Lab Results - Last 24 Hours (Table) 12/01/24 12/01/24 12/02/24 Range/Units 16:29 20:58 06:09 POC Glucose (mg/dL) 143 H 113 H 120 H (70-110) mg/dL Assessment and Plan (1) Pneumonia Status: Acute Code(s): J18.9 - PNEUMONIA, UNSPECIFIED ORGANISM SNOMED Code(s): 658900769 (2) Abnormal CT scan, chest Status: Acute Code(s): R93.89 - ABNORMAL FINDINGS ON DX IMAGING OF OTH BODY STRUCTURES SNOMED Code(s): 31181062261457971 (3) Leukocytosis Status: Acute Code(s): D72.829 - ELEVATED WHITE BLOOD CELL COUNT, UNSPECIFIED SNOMED Code(s): 327360086 Plan: 1patient presented to hospital after the patient was found to be unresponsive at home concerning for possible drug overdose also noted to have significant finding on a chest x-ray and the CT concerning for possible pneumonia question of aspiration etiology in this patient has been around the hospital concerning for possible resistant gram-positive as well as gram-negative pathogen, 2-patient did have Pseudomonas aeruginosa in the sputum concerning for pneumonia possible aspiration, for which the patient has received adequate Zosyn therapy 3patient is afebrile white count has normalized, we will consider short course of oral Diflucan on discharge Dictation was produced using [employer] dictation software. please excuse any grammatical, word or spelling errors. Time with Patient: Less than 30
--- NOTE | 2024-12-06 07:40 | CDI ---
Documentation Clarification Form Date: 12/06/2024 From: Evita Sadler Admit Date: 11/06/2024 02:06:00 PM Patient Name: Rosario Weinstein Visit Number: [id number] Discharge Date: 12/02/2024 01:10:00 PM ATTENTION: The Clinical Documentation Specialists (CDI) and [facility] Coding Staff appreciate your assistance in clarifying documentation. Please respond to the clarification below the line at the bottom and electronically sign. The CDI & [facility] Coding staff will review the response and follow-up if needed. Please note: Queries are made part of the Legal Health Record. If you have any questions, please contact the author of this message via ITS. Doctor/Provider: Mónica Paulino, A hospital acquired sacrum deep tissue pressure ulcer is documented by Nursing Wound Assessment on 11/09. On sacral pressure ulcer change to Stage II. Based on this information and the findings below, is there an additional diagnosis that is clinically appropriate for this patient? History/Risk Factors: 54 year old female presents to the ED via EMS unresponsive. She was intubated in the ED. Recent admission forwoundinfection with surgery on 10/27. Medical history:Asthma,Heart Failure,COPD, fibromyalgia,GERD,HTN,MIandPneumonia.11/06, HP. Clinical Indicators: Necrosis 76-100%, no drainage. Location: Sacrum Wound description: Area around coccyx is red and sluggish to soumya but is blanchable Treatment: Foam with border, zinc oxide Is there an additional diagnosis that is clinically appropriate for this patient? [ X ] Sacrum Pressure Ulcer Stage 2 [ ] Sacrum Deep Tissue Injury [ ] Other condition, please specify [ ] Unable to determine Clinical Definitions: Stage 1 Pressure Ulcer: intact skin, non-blanching redness of local area Stage 2 Pressure Ulcer: Partial thickness, loss of dermis, pink wound bed Stage 3 Pressure Ulcer: Full thickness tissue loss Stage 4 Pressure Ulcer: Full thickness tissue loss with exposed bone, tendon, or muscle. Unstageable pressure ulcer: Full thickness tissue loss in which the base of the ulcer is covered by slough (yellow, dawkins, dominguez, green or brown) and/or eschar (dawkins, brown or black) in the wound bed. MTDD
--- NOTE | 2024-12-15 18:20 | P.DS ---
Providers Date of admission: 11/06/24 14:06 Expected date of discharge: 12/02/24 Attending physician: Tavia Masterson MD Consults: 11/06/24 14:06 Consult Physician Stat Consulting Provider: Jadyn Starkey Consult Reason/Comments: Critical care management Do you want consulting provider notified?: Yes Consult Physician Urgent Consulting Provider: Leonel Mchugh Consult Reason/Comments: Wound infection Do you want consulting provider notified?: Yes Consult Physician Urgent Consulting Provider: Chevy Chang Consult Reason/Comments: Wound infection Do you want consulting provider notified?: Yes Primary care physician: Harpreet Ballard Hospital Course: Final diagnosis Altered mental status from acute toxic and metabolic encephalopathy with episode of unresponsive, likely related to narcotics versus sepsis, improved and at baseline -Likely aspiration pneumonia -Pseudomonas pneumonia Healthcare acquired with septic shock POA -Acute hypoxic/hypercapnic respiratory failure; as indicated above; patient remains on tracheostomy and PEG tube placement -Surgical site infection/wound dehiscence and Patient is status post surgery on 10/27/2024 for open treatment of a T8 fracture, irrigation and excisional debridement of thoracic spine wound measuring 10 x 7 x 4 cm, posterior lateral instrumented fusion of T7-T11 and cement augmentation of T8-T10 vertebral bodies; Orthopedic surgery consulted and felt the wound was noninfectious and healing well. -Leukocytosis/sepsis, improving and trending down -Hypernatremia, improved -Diarrhea, C. difficile ruled out -History of hypertension -Macroctyic anemia -Hyperlipidemia; currently not on any statin therapy -Hypothyroidism; levothyroxine 88 mcg daily -History of CAD -Chronic heart failure with preserved EF with no acute exacerbation -History of COPD/Asthma -PTSD/Bipolar/Borderline personality -Chronic nicotine use -Polysubstance use -Rectal prolapse -Hx seizure disorder -Gastroesophageal reflux DVT prophylaxis; SCDs/subcu heparin CODE STATUS; full code Discharge disposition Patient is being discharged in a stable condition with guarded prognosis to [facility]. Patient will follow-up with Dr. Ballard in the outpatient setting upon discharge. Patient is to continue with current medications including Diflucan for 10 days on discharge and close outpatient follow-up with orthopedics and pulmonary as scheduled. Total time taken is greater than 35 minutes. Hospital course This is a 54-year-old female who was recently admitted due to respiratory failure and altered mental status and obtunded with concerns of narcotic use and also highly concerned for aspiration pneumonia. Patient did have positive sputum cultures with Pseudomonas maintained on antibiotics with prolonged hospitalization is currently continued on Diflucan and will for 10 days as patient's repeat sputum culture showing Erin. Patient did require mechanical ventilation in the ICU and he has transition to tracheostomy with PEG tube placement. Patient was recently just reevaluated by speech on the and modified barium swallow study was performed and passed and is recommending dysphagia diet level 2 ground with strict aspiration precautions. Patient to continue with tracheostomy and possible outpatient decannulation in the outpatient setting. Recommend patient to follow-up with orthopedics for her chronic back and recent surgery as well as pulmonary outpatient for this tracheostomy. Patient has been cleared for discharge to [facility] by consultations and will be going to [facility] and has received insurance authorization. Please refer to other consultation notes for further HPI. Currently no reports of chest pain, shortness of breath, or palpitations. Patient is afebrile. No reports of nausea or vomiting and patient is tolerating diet. Patient will be going to [facility] today. Guarded prognosis 12/02/2024 Patient has been seen and evaluated by pulmonary and tracheostomy tube has been transition to #4 Shiley uncuffed fenestrated in [facility] has been updated. Able to accommodate the patient today and patient will be discharged. Guarded prognosis and high risk for readmissions given significant comorbidities. Physical exam: Gen: This is a 54-year-old female who is awake, alert and oriented x 2-3, baseline, well-developed, elderly appearing, thin built HEENT: Head is atraumatic, normocephalic. Pupils equal, round. Sclerae is anicteric. NECK: Supple. No JVD. No lymphadenopathy. No thyromegaly. LUNGS: Diminished breath sounds bilaterally with some bronchial congestion noted in the upper airways along with coarse rhonchi. No intercostal retractions. HEART: S1, S2 are muffled ABDOMEN: Soft. Thin. Bowel sounds are present. No masses. No tenderness. PEG tube noted EXTREMITIES: No pedal edema. No calf tenderness. NEUROLOGICAL: Patient is awake, alert and oriented x2-3. Cranial nerves 2 through 12 are grossly intact. Diffusely weak Please refer to medication reconciliation sheet for a list of medications. The impression and plan of care has been dictated by Kristina Wells, Nurse Practitioner as directed. Dr. Jann MD I have performed a history and examination and MDM of this patient, discussed the same with the dictator, and agree with the dictator's assessment and plan as written ,documented as a scribe. Based on total visit time, I have performed more than 50% of the visit. Patient Condition at Discharge: Fair Plan - Discharge Summary Discharge Rx Participant: Yes New Discharge Prescriptions: New Ipratropium-Albuterol Nebulize [Duoneb 0.5 mg-3 mg/3 ml Soln] 3 ml INHALATION RT-QID each Enoxaparin [Lovenox] 40 mg SQ DAILY each Formoterol Fumarate [Perforomist] 20 mcg INHALATION RT-BID ml Continue Asenapine Maleate [Saphris] 10 mg SUBLINGUAL BID Pantoprazole Sodium [Protonix] 40 mg PEG/G-TUBE BID Albuterol Sulfate [Proair Hfa] 2 puff INHALATION RT-Q6H PRN PRN Reason: Shortness Of Breath Prazosin HCl [Minipress] 2 mg PEG/G-TUBE BID Fluticasone/Umeclidin/Vilanter [Trelegy Ellipta 100-62.5-25] 1 puff INHALATION RT-DAILY Brivaracetam [Briviact] 100 mg PEG/G-TUBE BID Budesonide [Pulmicort] 0.5 mg INHALATION RT-Q12H PRN PRN Reason: Shortness Of Breath Fluticasone Nasal [place] [Flonase Nasal [place]] 1 spr EA NOSTRIL DAILY Propranolol [Inderal] 20 mg PEG/G-TUBE BID Cholecalciferol (Vitamin D3) [Vitamin D3 (50 Mcg = 2000 Iu)] 50 mcg PEG/G- TUBE DAILY Acetaminophen Tab [Tylenol] 500 mg PEG/G-TUBE Q6HR PRN PRN Reason: Pain Topiramate [Trokendi Xr] 100 mg PEG/G-TUBE DAILY rOPINIRole HCL [Requip] 2 mg PEG/G-TUBE BID Cetirizine HCl [Zyrtec] 10 mg PEG/G-TUBE DAILY Levothyroxine Sodium [Synthroid] 88 mcg PEG/G-TUBE DAILY Montelukast [Singulair] 10 mg PEG/G-TUBE HS busPIRone HCL 15 mg PEG/G-TUBE TID Discontinued Butalb/Acetaminophen/Caffeine [Fioricet 50-325-40] 1 tab PO Q6H PRN PRN Reason: Migraine Headache Ipratropium-Albuterol Nebulize [Duoneb 0.5 mg-3 mg/3 ml Soln] 3 ml INHALATION RT-QID Furosemide [Lasix] 40 mg PO DAILY Ibuprofen [Motrin] 800 mg PO Q8H PRN PRN Reason: Moderate Pain (Scale 4 To 6) cefaDROXiL [Duricef] 500 mg PO Q12HR 5 Days #10 cap Cyclobenzaprine [Flexeril] 10 mg PO TID #21 tab HYDROcodone/APAP 10-325MG [[place] 10-325] 1 tab PO Q6HR PRN #28 tab PRN Reason: Pain Sennosides/Docusate Sodium [Senna Plus 8.6-50 mg Softgel] 1 cap PO DAILY cloBAZam [Sympazan] 10 mg PO BID hydrOXYzine pamoate [Vistaril] 50 mg PO TID PRN PRN Reason: Anxiety rOPINIRole HCL [Requip] 1 mg PO BID Gabapentin [Neurontin] 800 mg PO TID No Action Fluconazole [Diflucan] 100 mg PEG/G-TUBE DAILY Folic Acid 0.4 mg PEG/G-TUBE DAILY Gabapentin [Neurontin] 100 mg PEG/G-TUBE TID Loperamide [Imodium] 2 mg PEG/G-TUBE Q6H PRN PRN Reason: Diarrhea Sertraline HCl 200 mg PEG/G-TUBE DAILY Tamsulosin HCl [Flomax] 0.4 mg PEG/G-TUBE DAILY Nicotine 14Mg/24Hr Patch [Habitrol] 1 patch TRANSDERM DAILY patch Furosemide [Lasix] 20 mg PEG/G-TUBE DAILY Ipratropium-Albuterol Nebulize [Duoneb 0.5 mg-3 mg/3 ml Soln] 3 ml INHALATION RT-Q2H PRN PRN Reason: Shortness Of Breath Magnesium Hydroxide [Milk of Magnesia Concentrate] 7,200 mg PEG/G-TUBE DAILY PRN PRN Reason: Constipation Multivitamins, Thera [Multivitamin (formulary)] 1 tab PEG/G-TUBE DAILY Thiamine [Vitamin B-1] 100 mg PO DAILY tab ALPRAZolam [Xanax] 0.5 mg PO BID PRN #4 tab PRN Reason: Anxiety HYDROcodone/APAP 5-325MG [[place] 5-325] 1 tab PEG/G-TUBE Q6HR PRN #4 tab PRN Reason: discomfort Discharge Medication List Asenapine Maleate [Saphris] 10 mg SUBLINGUAL BID 04/30/17 [History] Pantoprazole Sodium [Protonix] 40 mg PEG/G-TUBE BID 01/07/19 [History] Topiramate [Trokendi Xr] 100 mg PEG/G-TUBE DAILY 04/15/21 [History] Albuterol Sulfate [Proair Hfa] 2 puff INHALATION RT-Q6H PRN 05/10/21 [History] Prazosin HCl [Minipress] 2 mg PEG/G-TUBE BID 05/10/21 [History] rOPINIRole HCL [Requip] 2 mg PEG/G-TUBE BID 05/10/21 [History] Fluticasone/Umeclidin/Vilanter [Trelegy Ellipta 100-62.5-25] 1 puff INHALATION RT-DAILY 12/10/22 [History] Brivaracetam [Briviact] 100 mg PEG/G-TUBE BID 07/10/23 [History] Budesonide [Pulmicort] 0.5 mg INHALATION RT-Q12H PRN 07/27/23 [History] Cetirizine HCl [Zyrtec] 10 mg PEG/G-TUBE DAILY 07/27/23 [History] Fluticasone Nasal [place] [Flonase Nasal [place]] 1 spr EA NOSTRIL DAILY 07/27/23 [History] Levothyroxine Sodium [Synthroid] 88 mcg PEG/G-TUBE DAILY 07/27/23 [History] Propranolol [Inderal] 20 mg PEG/G-TUBE BID 07/27/23 [History] Acetaminophen Tab [Tylenol] 500 mg PEG/G-TUBE Q6HR PRN 10/25/24 [History] Cholecalciferol (Vitamin D3) [Vitamin D3 (50 Mcg = 2000 Iu)] 50 mcg PEG/G-TUBE DAILY 10/25/24 [History] Montelukast [Singulair] 10 mg PEG/G-TUBE HS 10/25/24 [History] busPIRone HCL 15 mg PEG/G-TUBE TID 10/25/24 [History] Enoxaparin [Lovenox] 40 mg SQ DAILY each 12/01/24 [Rx] Formoterol Fumarate [Perforomist] 20 mcg INHALATION RT-BID ml 12/01/24 [Rx] Ipratropium-Albuterol Nebulize [Duoneb 0.5 mg-3 mg/3 ml Soln] 3 ml INHALATION RT-QID each 12/01/24 [Rx] Fluconazole [Diflucan] 100 mg PEG/G-TUBE DAILY 12/04/24 [History] Folic Acid 0.4 mg PEG/G-TUBE DAILY 12/04/24 [History] Furosemide [Lasix] 20 mg PEG/G-TUBE DAILY 12/04/24 [History] Gabapentin [Neurontin] 100 mg PEG/G-TUBE TID 12/04/24 [History] Ipratropium-Albuterol Nebulize [Duoneb 0.5 mg-3 mg/3 ml Soln] 3 ml INHALATION RT-Q2H PRN 12/04/24 [History] Loperamide [Imodium] 2 mg PEG/G-TUBE Q6H PRN 12/04/24 [History] Magnesium Hydroxide [Milk of Magnesia Concentrate] 7,200 mg PEG/G-TUBE DAILY PRN 12/04/24 [History] Multivitamins, Thera [Multivitamin (formulary)] 1 tab PEG/G-TUBE DAILY 12/04/24 [History] Sertraline HCl 200 mg PEG/G-TUBE DAILY 12/04/24 [History] Tamsulosin HCl [Flomax] 0.4 mg PEG/G-TUBE DAILY 12/04/24 [History] ALPRAZolam [Xanax] 0.5 mg PO BID PRN #4 tab 12/12/24 [Rx] HYDROcodone/APAP 5-325MG [[place] 5-325] 1 tab PEG/G-TUBE Q6HR PRN #4 tab 12/12/24 [Rx] Nicotine 14Mg/24Hr Patch [Habitrol] 1 patch TRANSDERM DAILY patch 12/12/24 [Rx] Thiamine [Vitamin B-1] 100 mg PO DAILY tab 12/12/24 [Rx] Follow up Appointment(s)/Referral(s): Harpreet Ballard [Primary Care Provider] - 1-2 days Leonel Mchugh DO [Doctor of Osteopathic Medicine] - 10 Days Activity/Diet/Wound Care/Special Instructions: Incision care: Keep pressure off thoracic incision. TURN Q2H. keep incision approximated. Keep incision clean and dry. Continue patient on Diflucan Daily PT/OT, continue to encourage patient with bed exercises and increase activity as tolerated. Patient now has a #4 Shiley fenestrated uncuffed tracheostomy tube that was replaced by pulmonary on 12/02/2019 Continue aspiration precautions head of the bed elevated 30-45 Patient is continued on tube feeds consisting of Jevity 1.5 with a goal of 45 an hour continuous and every 4 hours free water bolus flushes of 100 cc Patient to follow-up with orthopedics outpatient Discharge Disposition: TRANSFER TO SNF/ECF
--- NOTE | 2024-12-20 11:47 | P.PN ---
Subjective Patient is evaluated today in follow up in the intensive care unit. Patient remains intubated on the mechanical ventilator with PEEP of 5 and FiO2 of 40%. Patient remains sedated. LFTs remain elevated, white blood cell count up to 38. Blood culture pending. Patient continues on IV Vancomycin and IV cefepime. ID following. Chest xray today reveals stable upper lobe interstitial opacities. Spinal surgery evaluated the patient felt the wound was noninfectious and healing well. Patients heart rate has been in the 120s was resumed on home medication of propanolol and has had improvement in the heart rate down to the 80s this afternoon. 11/08/2024 Patient is evaluated today in follow up in the ICU. Remains intubated and sedated on the mechanical ventilator with settings at PEEP of 5 and 40% FiO2. Chest xray today reveals interstitial opacities correlating for atypical pneumonia. There is extensive fixation hardware throu in the she remains getting normal sinus 70 mL/h 11/09/2024 Patient is evaluated in the Intensive care unit, family at the bedside. Patient remains on the mechanical ventilator with PEEP of 5, FiO2 of 40%. Not ready for weaning today. Chest xray reveals interstitial opacities of the lungs correlate for atypical pneumonia. Sputum positive for pseudomonas. Patient remains on IV Cefepime. Also on IV solumedrol. Patient is sedated with propofol. Normal saline is running at 75 mls/hr. White blood cell count 17.9, hgb 8.1. Sodium 145, potassium 4.1, BUN 23, creatinine 0.67. Patient with low grade temp 99 axillary. 11/10/2024 Patient evaluated today in the intensive care unit. She remains sedated and intubated on mechanical ventilator settings of PEEP of 5 with FiO2 40%. She is awake and alert although her eyes are not tracking. She does remain on propofol. Chest x-ray today reveals interstitial opacities of the lungs are unchanged. Sputum culture shows Pseudomonas x 2. Her labs today reveal a white blood cell count of 18.2, hemoglobin 8.6, platelet count of 625, sodium of 145, potassium 3.8, BUN of 26, creatinine of 0.73, magnesium 2.1. Her blood glucose is controlled. She is having some residuals with the enteral feedings per the nurse they have been decreased to 20 mL/h and will monitor the residuals closely. Patient continues on IV cefepime IV Solu-Medrol. She is sedated with IV propofol she is on normal saline at 75 mL/h. Pulmonary is considering this patient for tracheostomy and PEG tube placement 11/11/2024 Patient evaluated in the ICU patient is unable to be weaned and continues to become agitated when weaning off the propofol. Residuals are better today and tube feeds up to 30 mls/hr and she is having bowel movements. Antibiotics have been transitioned to IV zosyn. ID following closely. Labs today reveal white blood cell count 19.2, hgb 8.3, sodium 144, potassium 4.0, BUN 27, creatinine 0.66. Chest xray today reveals stable findings. 11/12 Patient intubated and sedated in the ICU She remains on normal saline 75 mL/h she also remains on IV Zosyn Unable to complete review of systems patient is currently intubated and sedated. Objective - Vital Signs Vital signs: Vital Signs Temp 99.4 F 11/12/24 08:00 Pulse 96 11/12/24 11:00 Resp 141 H 11/12/24 11:00 BP 137/81 11/12/24 11:00 Pulse Ox 92 L 11/12/24 11:00 FiO2 40 11/12/24 08:58 Intake & Output 11/11/24 11/12/24 11/12/24 18:59 06:59 18:59 Intake Total 8737.718 5747.298 555 Output Total 820 1200 510 Balance 612.665 343.298 45 Weight 56.1 kg 57.6 kg Intake: IV 810 975 405 0.9 @ KVO 5 Piperacillin-Tazobactam 3 100 .375 gm In Sodium Chloride 0.9% 100 ml @ 25 mls/hr IVPB Q8HR [facility] Rx# :[id number] Sodium Chloride 0.9% 1, 810 975 300 000 ml @ 75 mls/hr IV . [id number] [facility] Rx#:[id number] Intake, IV Titration 182.665 178.298 Amount Cefepime 2 gm In Sodium 100 Chloride 0.9% 100 ml @ 25 mls/hr IVPB Q8HR [facility] Rx# :[id number] propofoL 1,000 mg In 82.665 178.298 Empty Bag 1 bag @ 15 MCG/ KG/MIN 4.291 mls/hr IV . [id number] [facility] Rx#:[id number] Tube Feeding 310 390 120 Other 130 30 Output: Urine 820 1200 510 Other: Voiding Method Indwelling Catheter Indwelling Catheter ABP, PAP, CO, CI - Last Documented Arterial Blood Pressure 172/46 - Exam -GENERAL: The patient is intubated and sedated HEENT: Pupils are round and equally reacting to light. EOMI. No scleral icterus. No conjunctival pallor. Normocephalic, atraumatic. No pharyngeal erythema. No thyromegaly. CARDIOVASCULAR: S1 and S2 present. No murmurs, rubs, or gallops. PULMONARY: Chest is clear to auscultation, no wheezing , no crackles. ABDOMEN: Soft, nontender, nondistended, normoactive bowel sounds. No palpable organomegaly. MUSCULOSKELETAL: No joint swelling or deformity. EXTREMITIES: No cyanosis, clubbing, or pedal edema. NEUROLOGICAL: Gross neurological examination did not reveal any focal deficits. SKIN: No rashes. no petechiae. - Labs CBC & Chem 7: 12/01/24 05:56 12/01/24 05:56 Labs: Abnormal Lab Results - Last 24 Hours (Table) 11/11/24 11/11/24 11/12/24 Range/Units 17:26 23:20 05:06 WBC (3.8-10.6) k/uL RBC (3.80-5.40) m/uL Hgb (11.4-16.0) gm/dL Hct (34.0-46.0) % MCV (80.0-100.0) fL MCHC (31.0-37.0) g/dL RDW (11.5-15.5) % Plt Count (150-450) k/uL Neutrophils # (1.3-7.7) k/uL ABG pH (7.35-7.45) ABG pCO2 (35-45) mmHg ABG HCO3 (21-25) mmol/L ABG Total CO2 (19-24) mmol/L Hemoglobin (11.4-16.0) gm/dL Sodium (137-145) mmol/L Chloride (98-107) mmol/L BUN (7-17) mg/dL Glucose (74-99) mg/dL POC Glucose (mg/dL) 130 H 124 H 135 H (70-110) mg/dL 03/08/25 03/08/25 03/08/25 Range/Units 05:37 05:37 08:44 WBC 14.6 H (3.8-10.6) k/uL RBC 2.53 L (3.80-5.40) m/uL Hgb 7.5 L (11.4-16.0) gm/dL Hct 26.9 L (34.0-46.0) % MCV 106.3 H (80.0-100.0) fL MCHC 28.0 L (31.0-37.0) g/dL RDW 16.0 H (11.5-15.5) % Plt Count 598 H (150-450) k/uL Neutrophils # 12.9 H (1.3-7.7) k/uL ABG pH 7.29 L (7.35-7.45) ABG pCO2 54 H (35-45) mmHg ABG HCO3 26 H (21-25) mmol/L ABG Total CO2 28 H (19-24) mmol/L Hemoglobin 7.6 L (11.4-16.0) gm/dL Sodium 146 H (137-145) mmol/L Chloride 116 H (98-107) mmol/L BUN 26 H (7-17) mg/dL Glucose 131 H (74-99) mg/dL POC Glucose (mg/dL) (70-110) mg/dL 11/12/24 Range/Units 11:45 WBC (3.8-10.6) k/uL RBC (3.80-5.40) m/uL Hgb (11.4-16.0) gm/dL Hct (34.0-46.0) % MCV (80.0-100.0) fL MCHC (31.0-37.0) g/dL RDW (11.5-15.5) % Plt Count (150-450) k/uL Neutrophils # (1.3-7.7) k/uL ABG pH (7.35-7.45) ABG pCO2 (35-45) mmHg ABG HCO3 (21-25) mmol/L ABG Total CO2 (19-24) mmol/L Hemoglobin (11.4-16.0) gm/dL Sodium (137-145) mmol/L Chloride (98-107) mmol/L BUN (7-17) mg/dL Glucose (74-99) mg/dL POC Glucose (mg/dL) 151 H (70-110) mg/dL Microbiology - Last 24 Hours (Table) 11/06/24 12:36 Blood Culture - Final Blood Assessment and Plan Assessment: -Altered mental status from acute toxic and metabolic encephalopathy with episode of unresponsive, likely related to narcotics versus sepsis -Unable to rule out aspiration pneumonia -Pseudomonas pneumonia Healthcare acquired with septic shock POA -Acute hypoxic/hypercapnic respiratory failure; as indicated above; patient mike ins intubated with mechanical ventilation -Surgical site infection/wound dehiscence and Patient is status post surgery on 10/27/2024 for open treatment of a T8 fracture, irrigation and excisional debri anastasiya of thoracic spine wound measuring 10 x 7 x 4 cm, posterior lateral instrumented fusion of T7-T11 and cement augmentation of T8-T10 vertebral bodies; Orthopedic surgery consulted and felt the wound was noninfectious and healing well. -Leukocytosis/sepsis; continue with IV antibiotics as indicated above; patient has been pancultured -History of hypertension; propranolol 20 mg twice daily has been resumed; prazosin 2 mg twice daily on hold -Macroctyic anemia -Hyperlipidemia; currently not on any statin therapy -Hypothyroidism; levothyroxine 88 mcg daily -History of CAD -Chronic heart failure with preserved EF with no acute exacerbation -History of COPD/Asthma -PTSD/Bipolar/Borderline personality -Chronic nicotine use -Polysubstance use -Rectal prolapse -Hx seizure disorder -Gastroesophageal reflux DVT prophylaxis; SCDs/subcu heparin CODE STATUS; full code Plan: -Patient was intubated and mechanically ventilated in ED -Urine drug screen positive for opiates, barbiturates, tricyclic antidepressants, benzodiazepines and marijuana concern for polysubstance use -Blood culture pending -Sputum culture preliminary revealing pseudomonas aeruginosa. -All narcotics are currently being held -Critical care service on board -Patient has been placed on IV antibiotics in form of cefepime and vancomycin -Continue IV Solu-Medrol -Enteral feedings have been decreased to 20 mL/h secondary to large volume residuals. She is having bowel movements -Antiseizure medications have been resumed -Monitor electrolytes and renal function -Critical care service will attempt to wean patient off sedation today. She may be a candidate for trach and PEG tube placement.
--- NOTE | 2024-12-20 11:48 | P.PN ---
Subjective Patient is evaluated today in follow up in the intensive care unit. Patient remains intubated on the mechanical ventilator with PEEP of 5 and FiO2 of 40%. Patient remains sedated. LFTs remain elevated, white blood cell count up to 38. Blood culture pending. Patient continues on IV Vancomycin and IV cefepime. ID following. Chest xray today reveals stable upper lobe interstitial opacities. Spinal surgery evaluated the patient felt the wound was noninfectious and healing well. Patients heart rate has been in the 120s was resumed on home medication of propanolol and has had improvement in the heart rate down to the 80s this afternoon. 11/08/2024 Patient is evaluated today in follow up in the ICU. Remains intubated and sedated on the mechanical ventilator with settings at PEEP of 5 and 40% FiO2. Chest xray today reveals interstitial opacities correlating for atypical pneumonia. There is extensive fixation hardware throu in the she remains getting normal sinus 70 mL/h 11/09/2024 Patient is evaluated in the Intensive care unit, family at the bedside. Patient remains on the mechanical ventilator with PEEP of 5, FiO2 of 40%. Not ready for weaning today. Chest xray reveals interstitial opacities of the lungs correlate for atypical pneumonia. Sputum positive for pseudomonas. Patient remains on IV Cefepime. Also on IV solumedrol. Patient is sedated with propofol. Normal saline is running at 75 mls/hr. White blood cell count 17.9, hgb 8.1. Sodium 145, potassium 4.1, BUN 23, creatinine 0.67. Patient with low grade temp 99 axillary. 11/10/2024 Patient evaluated today in the intensive care unit. She remains sedated and intubated on mechanical ventilator settings of PEEP of 5 with FiO2 40%. She is awake and alert although her eyes are not tracking. She does remain on propofol. Chest x-ray today reveals interstitial opacities of the lungs are unchanged. Sputum culture shows Pseudomonas x 2. Her labs today reveal a white blood cell count of 18.2, hemoglobin 8.6, platelet count of 625, sodium of 145, potassium 3.8, BUN of 26, creatinine of 0.73, magnesium 2.1. Her blood glucose is controlled. She is having some residuals with the enteral feedings per the nurse they have been decreased to 20 mL/h and will monitor the residuals closely. Patient continues on IV cefepime IV Solu-Medrol. She is sedated with IV propofol she is on normal saline at 75 mL/h. Pulmonary is considering this patient for tracheostomy and PEG tube placement 11/11/2024 Patient evaluated in the ICU patient is unable to be weaned and continues to become agitated when weaning off the propofol. Residuals are better today and tube feeds up to 30 mls/hr and she is having bowel movements. Antibiotics have been transitioned to IV zosyn. ID following closely. Labs today reveal white blood cell count 19.2, hgb 8.3, sodium 144, potassium 4.0, BUN 27, creatinine 0.66. Chest xray today reveals stable findings. 11/12 Patient intubated and sedated in the ICU She remains on normal saline 75 mL/h she also remains on IV Zosyn Unable to complete review of systems patient is currently intubated and sedated. 11/13 Patient intubated and sedated in the ICU Vent management with the help of pulmonary/critical care team She remains on normal saline 75 mL/h she also remains on IV Zosyn Chest x-ray reviewed by me showing no change Unable to complete review of systems patient is currently intubated and sedated. Objective - Vital Signs Vital signs: Vital Signs Temp 99.9 F H 11/13/24 10:00 Pulse 85 11/13/24 11:00 Resp 30 H 11/13/24 11:00 BP 137/81 11/12/24 11:00 Pulse Ox 99 11/13/24 11:00 FiO2 40 11/13/24 08:48 Intake & Output 11/12/24 11/13/24 11/13/24 17:59 06:59 18:59 Intake Total 756.539 Output Total 630 Balance 126.539 Weight Intake: IV 415 0.9 @ KVO 25 Piperacillin-Tazobactam 3 .375 gm In Sodium Chloride 0.9% 100 ml @ 25 mls/hr IVPB Q8HR [facility] Rx# :[id number] Sodium Chloride 0.9% 1, 375 000 ml @ 75 mls/hr IV . [id number] [facility] Rx#:[id number] pressure bag 15 Intake, IV Titration 96.539 Amount propofoL 1,000 mg In 96.539 Empty Bag 1 bag @ 15 MCG/ KG/MIN 4.291 mls/hr IV . [id number] [facility] Rx#:[id number] Tube Feeding 215 Other 30 Output: Urine 630 Other: Voiding Method Indwelling Catheter ABP, PAP, CO, CI - Last Documented Arterial Blood Pressure 163/75 - Exam -GENERAL: The patient is intubated and sedated HEENT: Pupils are round and equally reacting to light. EOMI. No scleral icterus. No conjunctival pallor. Normocephalic, atraumatic. No pharyngeal erythema. No thyromegaly. CARDIOVASCULAR: S1 and S2 present. No murmurs, rubs, or gallops. PULMONARY: Chest is clear to auscultation, no wheezing , no crackles. ABDOMEN: Soft, nontender, nondistended, normoactive bowel sounds. No palpable organomegaly. MUSCULOSKELETAL: No joint swelling or deformity. EXTREMITIES: No cyanosis, clubbing, or pedal edema. NEUROLOGICAL: Gross neurological examination did not reveal any focal deficits. SKIN: No rashes. no petechiae. - Labs CBC & Chem 7: 12/01/24 05:56 12/01/24 05:56 Labs: Abnormal Lab Results - Last 24 Hours (Table) 11/12/24 11/12/24 11/12/24 Range/Units 11:45 17:34 23:11 WBC (3.8-10.6) k/uL RBC (3.80-5.40) m/uL Hgb (11.4-16.0) gm/dL Hct (34.0-46.0) % MCV (80.0-100.0) fL MCHC (31.0-37.0) g/dL RDW (11.5-15.5) % Plt Count (150-450) k/uL ABG pH (7.35-7.45) ABG pCO2 (35-45) mmHg ABG pO2 (83-108) mmHg ABG HCO3 (21-25) mmol/L ABG Total CO2 (19-24) mmol/L Hemoglobin (11.4-16.0) gm/dL Sodium (137-145) mmol/L Chloride (98-107) mmol/L BUN (7-17) mg/dL Glucose (74-99) mg/dL POC Glucose (mg/dL) 151 H 152 H 135 H (70-110) mg/dL 11/13/24 11/13/24 11/13/24 Range/Units 05:00 05:00 05:42 WBC 14.2 H (3.8-10.6) k/uL RBC 2.25 L (3.80-5.40) m/uL Hgb 6.8 L* (11.4-16.0) gm/dL Hct 23.5 L (34.0-46.0) % MCV 104.5 H (80.0-100.0) fL MCHC 29.1 L (31.0-37.0) g/dL RDW 15.6 H (11.5-15.5) % Plt Count 584 H (150-450) k/uL ABG pH (7.35-7.45) ABG pCO2 (35-45) mmHg ABG pO2 (83-108) mmHg ABG HCO3 (21-25) mmol/L ABG Total CO2 (19-24) mmol/L Hemoglobin (11.4-16.0) gm/dL Sodium 146 H (137-145) mmol/L Chloride 116 H (98-107) mmol/L BUN 24 H (7-17) mg/dL Glucose 124 H (74-99) mg/dL POC Glucose (mg/dL) 134 H (70-110) mg/dL 11/13/24 Range/Units 06:12 WBC (3.8-10.6) k/uL RBC (3.80-5.40) m/uL Hgb (11.4-16.0) gm/dL Hct (34.0-46.0) % MCV (80.0-100.0) fL MCHC (31.0-37.0) g/dL RDW (11.5-15.5) % Plt Count (150-450) k/uL ABG pH 7.31 L (7.35-7.45) ABG pCO2 53 H (35-45) mmHg ABG pO2 76 L (83-108) mmHg ABG HCO3 27 H (21-25) mmol/L ABG Total CO2 28 H (19-24) mmol/L Hemoglobin 7.2 L (11.4-16.0) gm/dL Sodium (137-145) mmol/L Chloride (98-107) mmol/L BUN (7-17) mg/dL Glucose (74-99) mg/dL POC Glucose (mg/dL) (70-110) mg/dL Assessment and Plan Assessment: -Altered mental status from acute toxic and metabolic encephalopathy with episode of unresponsive, likely related to narcotics versus sepsis -Unable to rule out aspiration pneumonia -Pseudomonas pneumonia Healthcare acquired with septic shock POA -Acute hypoxic/hypercapnic respiratory failure; as indicated above; patient remains intubated with mechanical ventilation -Surgical site infection/wound dehiscence and Patient is status post surgery on 10/27/2024 for open treatment of a T8 fracture, irrigation and excisional debridement of thoracic spine wound measuring 10 x 7 x 4 cm, posterior lateral instrumented fusion of T7-T11 and cement augmentation of T8-T10 vertebral bodies; Orthopedic surgery consulted and felt the wound was noninfectious and healing well. -Leukocytosis/sepsis; continue with IV antibiotics as indicated above; patient has been pancultured -History of hypertension; propranolol 20 mg twice daily has been resumed; prazosin 2 mg twice daily on hold -Macroctyic anemia -Hyperlipidemia; currently not on any statin therapy -Hypothyroidism; levothyroxine 88 mcg daily -History of CAD -Chronic heart failure with preserved EF with no acute exacerbation -History of COPD/Asthma -PTSD/Bipolar/Borderline personality -Chronic nicotine use -Polysubstance use -Rectal prolapse -Hx seizure disorder -Gastroesophageal reflux DVT prophylaxis; SCDs/subcu heparin CODE STATUS; full code Plan: -Patient was intubated and mechanically ventilated in ED -Urine drug screen positive for opiates, barbiturates, tricyclic antide pressants, benzodiazepines and marijuana concern for polysubstance use -Blood culture pending -Sputum culture preliminary revealing pseudomonas aeruginosa. -All narcotics are currently being held -Critical care service on board -Patient has been placed on IV antibiotics in form of cefepime and vancomycin -Continue IV Solu-Medrol -Enteral feedings have been decreased to 20 mL/h secondary to large volume residuals. She is having bowel movements -Antiseizure medications have been resumed -Monitor electrolytes and renal function -Critical care service will attempt to wean patient off sedation today. She may be a candidate for trach and PEG tube placement.
== END 2024-12-02 13:10 | DRG 5 ==
LOC: EC 10:07 → 2SICU 14:06 → 3SCARD 11-22 15:37 → 4SSUR 11-30 23:17
PROVIDERS: ADMIT Internal Medicine; ATTEND Internal Medicine
PROC: 0BH17EZ Insertion of Endotracheal Airway into Trachea, Via Natural or Artificial Opening (ICD-10-PCS; 2024-11-06)
PROC: 5A1955Z Respiratory Ventilation, Greater than 96 Consecutive Hours (ICD-10-PCS; 2024-11-06)
PROC: 3E0G76Z Introduction of Nutritional Substance into Upper GI, Via Natural or Artificial Opening (ICD-10-PCS; 2024-11-06)
PROC: 0D9670Z Drainage of Stomach with Drainage Device, Via Natural or Artificial Opening (ICD-10-PCS; 2024-11-06)
PROC: 03HY32Z Insertion of Monitoring Device into Upper Artery, Percutaneous Approach (ICD-10-PCS; 2024-11-07)
PROC: 4A133B1 Monitoring of Arterial Pressure, Peripheral, Percutaneous Approach (ICD-10-PCS; 2024-11-07)
PROC: 4A133J1 Monitoring of Arterial Pulse, Peripheral, Percutaneous Approach (ICD-10-PCS; 2024-11-07)
PROC: 3E033XZ Introduction of Vasopressor into Peripheral Vein, Percutaneous Approach (ICD-10-PCS; 2024-11-08)
PROC: 03HY32Z Insertion of Monitoring Device into Upper Artery, Percutaneous Approach (ICD-10-PCS; 2024-11-12)
PROC: 4A133B1 Monitoring of Arterial Pressure, Peripheral, Percutaneous Approach (ICD-10-PCS; 2024-11-12)
PROC: 4A133J1 Monitoring of Arterial Pulse, Peripheral, Percutaneous Approach (ICD-10-PCS; 2024-11-12)
PROC: 05H633Z Insertion of Infusion Device into Left Subclavian Vein, Percutaneous Approach (ICD-10-PCS; 2024-11-12)
PROC: 30243N1 Transfusion of Nonautologous Red Blood Cells into Central Vein, Percutaneous Approach (ICD-10-PCS; 2024-11-14)
PROC: 3E0G76Z Introduction of Nutritional Substance into Upper GI, Via Natural or Artificial Opening (ICD-10-PCS; 2024-11-15)
PROC: 0B110F4 Bypass Trachea to Cutaneous with Tracheostomy Device, Open Approach (ICD-10-PCS; principal; 2024-11-15 09:40)
PROC: 0DH63UZ Insertion of Feeding Device into Stomach, Percutaneous Approach (ICD-10-PCS; principal; 2024-11-15 09:40)
DX: A41.9 Sepsis, unspecified organism (principal); R65.21 Severe sepsis with septic shock; J15.1 Pneumonia due to Pseudomonas; E43 Unspecified severe protein-calorie malnutrition; Z68.1 Body mass index [BMI] 19.9 or less, adult; Z71.3 Dietary counseling and surveillance; I11.0 Hypertensive heart disease with heart failure; I50.32 Chronic diastolic (congestive) heart failure; F31.9 Bipolar disorder, unspecified; G25.81 Restless legs syndrome; G40.909 Epilepsy, unspecified, not intractable, without status epilepticus; I25.2 Old myocardial infarction; I25.10 Atherosclerotic heart disease of native coronary artery without angina pectoris; M79.7 Fibromyalgia; K62.3 Rectal prolapse; F43.10 Post-traumatic stress disorder, unspecified; Y95 Nosocomial condition; F41.9 Anxiety disorder, unspecified; F60.3 Borderline personality disorder; F17.200 Nicotine dependence, unspecified, uncomplicated; E78.5 Hyperlipidemia, unspecified; E87.0 Hyperosmolality and hypernatremia; G92.8 Other toxic encephalopathy; L89.152 Pressure ulcer of sacral region, stage 2; J69.0 Pneumonitis due to inhalation of food and vomit; K21.9 Gastro-esophageal reflux disease without esophagitis; J44.0 Chronic obstructive pulmonary disease with (acute) lower respiratory infection; J96.21 Acute and chronic respiratory failure with hypoxia; J96.22 Acute and chronic respiratory failure with hypercapnia; E03.9 Hypothyroidism, unspecified; D53.9 Nutritional anemia, unspecified; T40.601A Poisoning by unspecified narcotics, accidental (unintentional), initial encounter; T81.30XD Disruption of wound, unspecified, subsequent encounter; S22.029 Unspecified fracture of second thoracic vertebra; E55.9 Vitamin D deficiency, unspecified; G43.909 Migraine, unspecified, not intractable, without status migrainosus; K58.9 Irritable bowel syndrome, unspecified; J98.11 Atelectasis; K62.5 Hemorrhage of anus and rectum; R19.7 Diarrhea, unspecified; Z79.51 Long term (current) use of inhaled steroids; Z79.890 Hormone replacement therapy; Z79.899 Other long term (current) drug therapy; Z86.718 Personal history of other venous thrombosis and embolism; Z98.1 Arthrodesis status; Y92.009 Unspecified place in unspecified non-institutional (private) residence as the place of occurrence of the external cause
CPT/HCPCS: 31500; 36415; 36600; 43246; 70450; 71045; 71275; 72129; 74230; 80048; 80053; 80306; 81001; 82140; 82607; 82746; 82805; 83605; 83735; 84132; 84145; 84484; 85025; 85027; 85610; 85730; 86140; 86850; 86900; 86901; 86920; 87040; 87070; 87077; 87186; 87205; 87324; 93005; 94002; 94003; 94640; 94760; 96361; 96365; 96366; 96368; 96375; 99291

== ENCOUNTER 2024-12-04 10:40 | Inpatient (IN) | payer OTHER ==
--- NOTE | 2024-12-04 11:21 | P.PN ---
Progress Note - Text Progress Note Date: 12/04/24 Spoke with ED provider. Wound dehiscence due to suture removal by the rehab facility before clearing with this surgeon. Pt needs washout and closure. NPO. Medicine admit due to complex medical patient with long history of COPD, CHF, multisubstance use/abse recently VDRF due to OD with multiple medical comorbid conditions. Plan for tomorrow washout and wound closure. ABx to start now. She was never infected before. Will get cultures intraop.
--- NOTE | 2024-12-04 12:14 | ED ---
General Adult HPI - General Chief complaint: Back Pain/Injury Stated complaint: post op pain Time Seen by Provider: 12/04/24 11:05 Source: patient, EMS Mode of arrival: EMS Limitations: physical limitation - History of Present Illness Initial comments: 54-year-old female who presents to the emergency department as a transfer from [facility]. Patient is currently residing at the [facility]. Patient had extended hospitalization with vent dependence. Patient currently has a trach. She was taken from her extended care facility to [facility] as this was the closest facility. This was for wound dehiscence. [facility] did evaluate the patient and felt she needed to be transferred back to the facility where her orthopedic surgeon is. They did perform a CT which demonstrated extensive surgical changes of the thoracolumbar spine with pedicle screws and interbody rods. Discectomy changes at T2-3. Vertebroplasty's at multiple levels. Small foci of subcutaneous air in the soft tissues posterior to T10, 12 and L1. Patient has no white count or fever. Cr 0.6 - Related Data Home Medications Medication Instructions Recorded Confirmed Asenapine Maleate [Saphris] 10 mg SUBLINGUAL BID 04/30/17 12/04/24 Pantoprazole Sodium [Protonix] 40 mg PEG/G-TUBE BID 01/07/19 12/04/24 Topiramate [Trokendi Xr] 100 mg PEG/G-TUBE DAILY 04/15/21 12/04/24 Albuterol Sulfate [Proair Hfa] 2 puff INHALATION RT-Q6H PRN 05/10/21 12/04/24 Prazosin HCl [Minipress] 2 mg PEG/G-TUBE BID 05/10/21 12/04/24 rOPINIRole HCL [Requip] 2 mg PEG/G-TUBE BID 05/10/21 12/04/24 Fluticasone/Umeclidin/Vilanter 1 puff INHALATION RT-DAILY 12/10/22 12/04/24 [Trelegy Ellipta 100-62.5-25] Brivaracetam [Briviact] 100 mg PEG/G-TUBE BID 07/10/23 12/04/24 Budesonide [Pulmicort] 0.5 mg INHALATION RT-Q12H PRN 07/27/23 12/04/24 Cetirizine HCl [Zyrtec] 10 mg PEG/G-TUBE DAILY 07/27/23 12/04/24 Fluticasone Nasal [place] [Flonase 1 spr EA NOSTRIL DAILY 07/27/23 12/04/24 Nasal [place]] Levothyroxine Sodium [Synthroid] 88 mcg PEG/G-TUBE DAILY 07/27/23 12/04/24 Propranolol [Inderal] 20 mg PEG/G-TUBE BID 07/27/23 12/04/24 Acetaminophen Tab [Tylenol] 500 mg PEG/G-TUBE Q6HR PRN 10/25/24 12/04/24 Cholecalciferol (Vitamin D3) 50 mcg PEG/G-TUBE DAILY 10/25/24 12/04/24 [Vitamin D3 (50 Mcg = 2000 Iu)] Montelukast [Singulair] 10 mg PEG/G-TUBE HS 10/25/24 12/04/24 busPIRone HCL 15 mg PEG/G-TUBE TID 10/25/24 12/04/24 Fluconazole [Diflucan] 100 mg PEG/G-TUBE DAILY 12/04/24 12/04/24 Folic Acid 0.4 mg PEG/G-TUBE DAILY 12/04/24 12/04/24 Furosemide [Lasix] 20 mg PEG/G-TUBE DAILY 12/04/24 12/04/24 Gabapentin [Neurontin] 100 mg PEG/G-TUBE TID 12/04/24 12/04/24 HYDROcodone/APAP 5-325MG [[place] 1 tab PEG/G-TUBE Q6HR PRN 12/04/24 12/04/24 5-325] Ipratropium-Albuterol Nebulize 3 ml INHALATION RT-Q2H PRN 12/04/24 12/04/24 [Duoneb 0.5 mg-3 mg/3 ml Soln] Loperamide [Imodium] 2 mg PEG/G-TUBE Q6H PRN 12/04/24 12/04/24 Magnesium Hydroxide [Milk of 7,200 mg PEG/G-TUBE DAILY PRN 12/04/24 12/04/24 Magnesia Concentrate] Multivitamins, Thera [Multivitamin 1 tab PEG/G-TUBE DAILY 12/04/24 12/04/24 (formulary)] Sertraline HCl 200 mg PEG/G-TUBE DAILY 12/04/24 12/04/24 Tamsulosin HCl [Flomax] 0.4 mg PEG/G-TUBE DAILY 12/04/24 12/04/24 predniSONE [Deltasone] See Taper PEG/G-TUBE DAILY 12/04/24 12/04/24 Previous Rx's Medication Instructions Recorded Enoxaparin [Lovenox] 40 mg SQ DAILY each 12/01/24 Formoterol Fumarate [Perforomist] 20 mcg INHALATION RT-BID ml 12/01/24 Ipratropium-Albuterol Nebulize 3 ml INHALATION RT-QID each 12/01/24 [Duoneb 0.5 mg-3 mg/3 ml Soln] Allergies Allergy/AdvReac Type Severity Reaction Status Date / Time bee venom protein (honey bee) Allergy Anaphylaxis Verified 12/04/24 14:41 Review of Systems ROS Statement: Those systems with pertinent positive or pertinent negative responses have been documented in the HPI. ROS Other: All systems not noted in ROS Statement are negative. Past Medical History Past Medical History: Asthma, Heart Failure, COPD, Deep Vein Thrombosis (DVT), Eye Disorder, Fibromyalgia, GERD/Reflux, Hyperlipidemia, Hypertension, Memory Impairment, Myocardial Infarction (MA), Osteoarthritis (OA), Pneumonia, Seizure Disorder, Skin Disorder, Syncope, Thyroid Disorder Additional Past Medical History / Comment(s): IBS, colitis, restless legs flexed syndrome, daily migraines, Vitamin D deficiency, benign left breast mass, gastritis, short term memory loss. Vision - "sees an orange aura." BILAT CATARACTS Last seizure 09/22/2024, PT STATES THAT DR. VILLALBA IS AWARE"Legs are weak and balance is off." checked bone marrow for cancer. Pt has pressure ulcer over lower incision from surgery on 09/09/2024. States she had a blood clot in leg but not sure which leg or when Last Myocardial Infarction Date:: 2009 History of Any Multi-Drug Resistant Organisms: None Reported Past Surgical History: Back Surgery, Hysterectomy, Orthopedic Surgery Additional Past Surgical History / Comment(s): D&C, bilateral knee arthroscopy. Past Anesthesia/Blood Transfusion Reactions: No Reported Reaction Additional Past Anesthesia/Blood Transfusion Reaction / Comment(s): severe anxiety coming out of anesthesia,no hx blood transfusion Past Psychological History: Anxiety, Bipolar, Depression, PTSD Smoking Status: Current every day smoker Past Alcohol Use History: None Reported Past Drug Use History: Marijuana - Past Family History Father Family Medical History: Cancer Additional Family Medical History / Comment(s): Father of pancreatic cancer at the age of 62yrs. and lung cancer Mother Family Medical History: Congestive Heart Failure (CHF) Additional Family Medical History / Comment(s): Mother of CHF at the age of 60yrs. Brother(s) Additional Family Medical History / Comment(s): Patient had 1 brother that at 5 months of age. Sister(s) Family Medical History: Deep Vein Thrombosis (DVT) Additional Family Medical History / Comment(s): Patient has one sister with history of depression and bipolar. Patient has 2 half-sisters and one at age 26 from overdose. Patient does not have any children. General Exam Limitations: physical limitation General appearance: alert, in no apparent distress Head exam: Present: atraumatic, normocephalic, normal inspection Eye exam: Present: normal appearance, PERRL, EOMI. Absent: scleral icterus, conjunctival injection, periorbital swelling ENT exam: Present: normal exam, mucous membranes moist Neck exam: Present: normal inspection. Absent: tenderness, meningismus, l ymphadenopathy Respiratory exam: Present: normal lung sounds bilaterally. Absent: respiratory distress, wheezes, rales, rhonchi, stridor Cardiovascular Exam: Present: regular rate, normal rhythm, normal heart sounds. Absent: systolic murmur, diastolic murmur, rubs, gallop, clicks GI/Abdominal exam: Present: soft, normal bowel sounds. Absent: distended, tenderness, guarding, rebound, rigid Extremities exam: Present: normal inspection, full ROM, normal capillary refill. Absent: tenderness, pedal edema, joint swelling, calf tenderness Back exam: Present: other (Well-healed, long surgical incision over the midline spine with central area of dehiscence measuring 5 cm x 2 cm. No pustular drainage. No exposed hardware) Neurological exam: Present: alert, oriented X3, CN II-XII intact Psychiatric exam: Present: normal affect, normal mood Skin exam: Present: warm, dry, intact, normal color. Absent: rash Course Vital Signs 12/04/24 12/04/24 12/04/24 11:02 14:00 15:50 Temperature 98.4 F Pulse Rate 76 84 93 Respiratory 18 18 18 Rate Blood Pressure 148/89 164/103 158/98 O2 Sat by Pulse 94 L 94 L 94 L Oximetry Medical Decision Making - Medical Decision Making Was pt. sent in by a medical professional or institution (KESHIA Mccullough, TRACK HOE OPERATOR, urgent care, hospital, or mcc...) When possible be specific @ -Patient was sent by [facility] [place] Did you speak to anyone other than the patient for history (EMS, parent, family, police, friend...)? What history was obtained from this source @ -Spoke with transferring physician for the patient Did you review nursing and triage notes (agree or disagree)? Why? @ -I reviewed and agree with nursing and triage notes Were old charts reviewed (outside hosp., previous admission, EMS record, old EKG, old radiological studies, urgent care reports/EKG's, mcc records)? Report findings @ -I reviewed the laboratory studies that were completed on the patient from today at [facility] Differential Diagnosis (chest pain, altered mental status, abdominal pain women, abdominal pain men, vaginal bleeding, weakness, fever, dyspnea, syncope, headache, dizziness, GI bleed, back pain, seizure, CVA, palpatations, mental health, musculoskeletal)? @ -Wound dehiscence, epidural hematoma, epidural abscess, bacteremia EKG interpreted by me (3pts min.). @ -Not done X-rays interpreted by me (1pt min.). @ -None done CT interpreted by me (1pt min.). @ -None done U/S interpreted by me (1pt. min.). @ -None done What testing was considered but not performed or refused? (CT, X-rays, U/S, labs)? Why? @ -None What meds were considered but not given or refused? Why? @ -None Did you discuss the management of the patient with other professionals (professionals i.e. KESHIA Mccullough, TRACK HOE OPERATOR, lab, RT, psych nurse, social studies department chair, personnel specialist, teacher, environmental protection officer, spring encaser)? Give summary @ -Spoke with Dr. Mchugh and Dr. capps for the admission Was smoking cessation discussed for >3mins.? @ -No Was critical care preformed (if so, how long)? @ -No Were there social determinants of health that impacted care today? How? (Homelessness, low income, unemployed, alcoholism, drug addiction, transportation, low edu. Level, literacy, decrease access to med. care, custodial, rehab)? @ -No Was there de-escalation of care discussed even if they declined (Discuss DNR or withdrawal of care, Hospice)? DNR status @ -No What co-morbidities impacted this encounter? (DM, HTN, Smoking, COPD, CAD, Cancer, CVA, ARF, Chemo, Hep., AIDS, mental health diagnosis, sleep apnea, morbid obesity)? @ -Heart failure, COPD, hypertension Was patient admitted / discharged? Hospital course, mention meds given and route, prescriptions, significant lab abnormalities, going to OR and other pertinent info. @ -Upon arrival patient seen and evaluated in bed 6. I did review the packet that does come with the patient. I spoke with Dr. Mchugh. He recommends antibiotics and admission to medicine. Patient will be made n.p.o. at midnight for surgery in the morning. Patient was agreeable to this and she was admitted to the floor in stable condition Undiagnosed new problem with uncertain prognosis? @ -No Drug Therapy requiring intensive monitoring for toxicity (Heparin, Nitro, Insulin, Cardizem)? @ -No Were any procedures done? @ -No Diagnosis/symptom? @ -Acute back wound dehiscence Acute, or Chronic, or Acute on Chronic? @ -Acute Uncomplicated (without systemic symptoms) or Complicated (systemic symptoms)? @ -Complicated Side effects of treatment? @ -No Exacerbation, Progression, or Severe Exacerbation? @ -No Poses a threat to life or bodily function? How? (Chest pain, USA, MA, pneumonia, PE, COPD, DKA, ARF, appy, cholecystitis, CVA, Diverticulitis, Homicidal, Suicidal, threat to staff... and all critical care pts) @ -No - Lab Data Result diagrams: 12/10/24 05:59 12/10/24 05:59 Disposition Clinical Impression: Postoperative wound dehiscence Disposition: ADMITTED IP TO THIS [facility] Condition: Stable Is patient prescribed a controlled substance at d/c from ED?: No Time of Disposition: 13:05 Decision to Admit Reason: Admit from EC Decision Date: 12/04/24 Decision Time: 13:05
[2024-12-04] MEDS ORDERED: VANCOMYCIN IV PER PHARMACY 1 EACH MISC MISCELLANE PRN (13:08)
[2024-12-04] MEDS ORDERED: NALOXONE 0.4 MG/ML 1 ML VIAL IV PRN (13:09)
--- NOTE | 2024-12-04 13:45 | P.CONS ---
History of Present Illness - Reason for Consult Consult date: 12/04/24 Wound dehiscence Requesting physician: Lakesha Wooten - Chief Complaint Wound dehiscence x 1 day - History of Present Illness Patient is a 54-year-old female with a past medical history significant for Asthma, Heart Failure, COPD, Deep Vein Thrombosis (DVT), Eye Disorder, Fibromyalgia, GERD/Reflux, Hyperlipidemia, Hypertension, Memory Impairment, Myocardial Infarction ([place]), Osteoarthritis (OA), Pneumonia, Seizure Disorder, Skin Disorder, Syncope, Thyroid Disorder, recent prolonged stay in the hospital with acute respiratory failure and did have a Pseudomonas pneumonia patient was subsequent stabilized and discharged to the senior living patient now has been brought back to the hospital concerning for dehiscence of her mid thoracic spine incision that has been noticed at the senior living with the patient was subsequently was sent to the [facility] for evaluation with the patient did have a CT did shows extensive surgical changes in the thoracolumbar spine and there was concern for subcutaneous air and soft tissue swelling with concern for possible infection patient was transferred to [facility] to be evaluated by her primary surgeon patient has been started on vancomycin gentamicin infectious disease was consulted for further management of antibiotic therapy patient currently denies having any fever or any chills patient is breathing comfortably on trach collar he denies any chest pain occasional cough no nausea no vomiting patient mention she is feeling hot would like to eat did have some dull aching pain to the back area but denies any worsening or any significant drainage patient presentation hospital was afebrile labs pending Review of Systems Positive point and negatives has been mentioned in the HPI, complete review of systems was performed and all other systems are negative Past Medical History Past Medical History: Asthma, Heart Failure, COPD, Deep Vein Thrombosis (DVT), Eye Disorder, Fibromyalgia, GERD/Reflux, Hyperlipidemia, Hypertension, Memory Impairment, Myocardial Infarction ([place]), Osteoarthritis (OA), Pneumonia, Seizure Disorder, Skin Disorder, Syncope, Thyroid Disorder Additional Past Medical History / Comment(s): IBS, colitis, restless legs flexed syndrome, daily migraines, Vitamin D deficiency, benign left breast mass, gastritis, short term memory loss. Vision - "sees an orange aura." BILAT CATARACTS Last seizure 09/22/2024, PT STATES THAT DR. VILLALBA IS AWARE"Legs are weak and balance is off." checked bone marrow for cancer. Pt has pressure ulcer over lower incision from surgery on 09/09/2024. States she had a blood clot in leg but not sure which leg or when Last Myocardial Infarction Date:: 2009 History of Any Multi-Drug Resistant Organisms: None Reported Past Surgical History: Back Surgery, Hysterectomy, Orthopedic Surgery Additional Past Surgical History / Comment(s): D&C, bilateral knee arthroscopy. Past Anesthesia/Blood Transfusion Reactions: No Reported Reaction Additional Past Anesthesia/Blood Transfusion Reaction / Comm: severe anxiety coming out of anesthesia,no hx blood transfusion Past Psychological History: Anxiety, Bipolar, Depression, PTSD Smoking Status: Current every day smoker Past Alcohol Use History: None Reported Past Drug Use History: Marijuana - Past Family History Father Family Medical History: Cancer Additional Family Medical History / Comment(s): Father of pancreatic cancer at the age of 62yrs. and lung cancer Mother Family Medical History: Congestive Heart Failure (CHF) Additional Family Medical History / Comment(s): Mother of CHF at the age of 60yrs. Brother(s) Additional Family Medical History / Comment(s): Patient had 1 brother that at 5 months of age. Sister(s) Family Medical History: Deep Vein Thrombosis (DVT) Additional Family Medical History / Comment(s): Patient has one sister with history of depression and bipolar. Patient has 2 half-sisters and one at age 26 from overdose. Patient does not have any children. Medications and Allergies Home Medications Medication Instructions Recorded Confirmed Type Asenapine Maleate [Saphris] 10 mg SUBLINGUAL BID 04/30/17 12/04/24 History Pantoprazole Sodium [Protonix] 40 mg PEG/G-TUBE BID 01/07/19 12/04/24 History Topiramate [Trokendi Xr] 100 mg PEG/G-TUBE DAILY 04/15/21 12/04/24 History Albuterol Sulfate [Proair Hfa] 2 puff INHALATION RT-Q6H PRN 05/10/21 12/04/24 History Prazosin HCl [Minipress] 2 mg PEG/G-TUBE BID 05/10/21 12/04/24 History rOPINIRole HCL [Requip] 2 mg PEG/G-TUBE BID 05/10/21 12/04/24 History Fluticasone/Umeclidin/Vilanter 1 puff INHALATION RT-DAILY 12/10/22 12/04/24 History [Trelegy Ellipta 100-62.5-25] Brivaracetam [Briviact] 100 mg PEG/G-TUBE BID 07/10/23 12/04/24 History Budesonide [Pulmicort] 0.5 mg INHALATION RT-Q12H PRN 07/27/23 12/04/24 History Cetirizine HCl [Zyrtec] 10 mg PEG/G-TUBE DAILY 07/27/23 12/04/24 History Fluticasone Nasal [place] [Flonase 1 spr EA NOSTRIL DAILY 07/27/23 12/04/24 History Nasal [place]] Levothyroxine Sodium [Synthroid] 88 mcg PEG/G-TUBE DAILY 07/27/23 12/04/24 History Propranolol [Inderal] 20 mg PEG/G-TUBE BID 07/27/23 12/04/24 History Acetaminophen Tab [Tylenol] 500 mg PEG/G-TUBE Q6HR PRN 10/25/24 12/04/24 History Cholecalciferol (Vitamin D3) 50 mcg PEG/G-TUBE DAILY 10/25/24 12/04/24 History [Vitamin D3 (50 Mcg = 2000 Iu)] Montelukast [Singulair] 10 mg PEG/G-TUBE HS 10/25/24 12/04/24 History busPIRone HCL 15 mg PEG/G-TUBE TID 10/25/24 12/04/24 History Enoxaparin [Lovenox] 40 mg SQ DAILY each 12/01/24 12/04/24 Rx Formoterol Fumarate [Perforomist] 20 mcg INHALATION RT-BID ml 12/01/24 12/04/24 Rx Ipratropium-Albuterol Nebulize 3 ml INHALATION RT-QID each 12/01/24 12/04/24 Rx [Duoneb 0.5 mg-3 mg/3 ml Soln] Fluconazole [Diflucan] 100 mg PEG/G-TUBE DAILY 12/04/24 12/04/24 History Folic Acid 0.4 mg PEG/G-TUBE DAILY 12/04/24 12/04/24 History Furosemide [Lasix] 20 mg PEG/G-TUBE DAILY 12/04/24 12/04/24 History Gabapentin [Neurontin] 100 mg PEG/G-TUBE TID 12/04/24 12/04/24 History HYDROcodone/APAP 5-325MG [[place] 1 tab PEG/G-TUBE Q6HR PRN 12/04/24 12/04/24 History 5-325] Ipratropium-Albuterol Nebulize 3 ml INHALATION RT-Q2H PRN 12/04/24 12/04/24 History [Duoneb 0.5 mg-3 mg/3 ml Soln] Loperamide [Imodium] 2 mg PEG/G-TUBE Q6H PRN 12/04/24 12/04/24 History Magnesium Hydroxide [Milk of 7,200 mg PEG/G-TUBE DAILY PRN 12/04/24 12/04/24 History Magnesia Concentrate] Multivitamins, Thera [Multivitamin 1 tab PEG/G-TUBE DAILY 12/04/24 12/04/24 History (formulary)] Sertraline HCl 200 mg PEG/G-TUBE DAILY 12/04/24 12/04/24 History Tamsulosin HCl [Flomax] 0.4 mg PEG/G-TUBE DAILY 12/04/24 12/04/24 History predniSONE [Deltasone] See Taper PEG/G-TUBE DAILY 12/04/24 12/04/24 History Allergies Allergy/AdvReac Type Severity Reaction Status Date / Time bee venom protein (honey bee) Allergy Anaphylaxis Verified 12/04/24 14:41 Physical Exam Vitals: Vital Signs Temp Pulse Resp BP Pulse Ox 12/04/24 11:02 98.4 F 76 18 148/89 94 L Intake and Output 12/03/24 12/04/24 12/04/24 22:59 06:59 14:59 Other: Weight 54.431 kg GENERAL DESCRIPTION: Middle-age female lying in bed, no distress. No tachypnea or accessory muscle of respiration use. HEENT: Shows Pallor , no scleral icterus. Oral mucous membrane is dry. NECK: Trach site is currently dressed LUNGS: Unlabored breathing. Clear to auscultation anteriorly. No wheeze or crackle. HEART: S1, S2, regular rate and rhythm. No loud murmur ABDOMEN: Soft, no tenderness , guarding or rigidity, no organomegaly EXTREMITIES: No edema of feet. SKIN: Patient did have a mid thoracic spine wound dehiscence which is deep no foul-smelling drainage was noticed. NEUROLOGICAL: The patient is awake, alert, oriented x3, mood and affect normal. Results CBC & Chem 7: 12/06/24 11:22 12/06/24 13:06 Assessment and Plan (1) Postoperative wound dehiscence Current Visit: Yes Status: Acute Code(s): T81.31XA - DISRUPTION OF EXTERNAL OPERATION (SURGICAL) WOUND, NEC, INIT SNOMED Code(s): 829380742 Plan: 1patient with a complicated history of multiple surgery to the thoracic spine recently subsequently did have a admission to the hospital with acute respiratory failure and Pseudomonas pneumonia now being presented to the hospital with a wound dehiscence to the mid thoracic spine which seem to be deep in the bones palpable underlying infection not entirely excluded keeping in mind the patient has been in and out of the hospital will need to cover for resistant gram-positive's and gram-negative pathogen 2we will obtain blood culture and we will check inflammatory markers 3continue vancomycin pharmacy to dose however discontinue gentamicin to decrease risk of nephrotoxicity and will add cefepime for gram-negative coverage 4await operative washout and deep cultures scheduled for tomorrow We will follow on clinical condition and cultures to further adjust medication if needed Thank you for this consultation we will follow the patient along with you Dictation was produced using [employer] dictation software. please excuse any grammatical, word or spelling errors. Time with Patient: Greater than 30
[2024-12-04] MEDS: VANCOMYCIN 1,000 MG in SODIUM CHLORIDE 0.9% 250 ML IVPB ONE (13:54)
[2024-12-04] MEDS: GENTAMICIN PER PHARMACY MISCELLANE SCH (14:20)
[2024-12-04 15:19] LABS: African American GFR (CKD) >90 (>60 ml/min/1.73 sqM); Non-African American GFR(CKD) >90 (>60 ml/min/1.73 sqM)
[2024-12-04] MEDS ORDERED: LOPERAMIDE 2 MG CAP PEG/G-TUBE PRN (16:52)
[2024-12-04] MEDS ORDERED: ALBUTEROL HFA INHALER INHALATION PRN (16:52)
[2024-12-04] MEDS: ENOXAPARIN 40 MG/0.4 ML SYRINGE SQ SCH (17:53)
[2024-12-04] MEDS: HYDROcodone/APAP 5-325MG 1 EACH TAB PEG/G-TUBE PRN (17:53)
[2024-12-04] MEDS: LORATADINE 10 MG TAB PEG/G-TUBE SCH (17:54)
[2024-12-04] MEDS: PANTOPRAZOLE 40 MG TABLET PO SCH (17:54)
[2024-12-04] MEDS: CHOLECALCIFEROL 25 MCG (1000 IU) TABLET PEG/G-TUBE SCH (17:54)
[2024-12-04] MEDS: SERTRALINE 100 MG TAB PEG/G-TUBE SCH (17:54)
[2024-12-04] MEDS: TAMSULOSIN 0.4 MG CAP.ER.24H PO SCH (17:54)
[2024-12-04] MEDS: GABAPENTIN 100 MG CAP PEG/G-TUBE SCH (17:54)
[2024-12-04] MEDS: FOLIC ACID 1 MG TAB PEG/G-TUBE SCH (17:54)
[2024-12-04] MEDS: busPIRone HCl 10 MG TAB PEG/G-TUBE SCH (17:54)
[2024-12-04] MEDS: FLUCONAZOLE 100 MG TAB PEG/G-TUBE SCH (17:55)
[2024-12-04] MEDS: CEFEPIME 2 GM in SODIUM CHLORIDE 0.9% 100 ML IVPB SCH (17:55)
--- NOTE | 2024-12-04 19:57 | P.HPIM ---
History of Present Illness This is a pleasant 54 years old female with past medical history of multiple medical problems. Including recent hospitalization to this facility about a month ago for similar problem of infected surgical site at the back. Patient was sent from her [facility] for open surgical wound in the middle of her back. Patient was in this facility about a month ago for similar problem. Also she is a known case of tracheostomy she says she is on 4 L oxygen via trach collar. She denies chest pain. No significant dyspnea but she is on exam she still have some wheezing. She required 5 L slightly more of oxygen than her baseline She has pain in the middle of the back where she has open wound with no surrounding cellulitis Also she is s/p tube but no abdominal pain or tenderness. No urinary complaint. No headache dizziness. She is generally weak She denies smoking alcohol or illicit drugs. Review of Systems Review of systems CONSTITUTIONAL: No fever, no malaise, no fatigue. HEENT: No recent visual problems or hearing problems. Denied any sore throat. CARDIOVASCULAR: No orthopnea, PND, no palpitations, no syncope. PULMONARY: No chest wall tenderness, no hemoptysis. GASTROINTESTINAL: No diarrhea, no nausea, no vomiting, no abdominal pain. Normoactive bowel sounds. NEUROLOGICAL: No headaches, no weakness, no numbness. HEMATOLOGICAL: Denies any bleeding or petechiae. GENITOURINARY: Denies any burning micturition, frequency, or urgency. MUSCULOSKELETAL/RHEUMATOLOGICAL: Denies any joint pain, swelling ENDOCRINE: Denies any polyuria or polydipsia. Past Medical History Past Medical History: Asthma, Heart Failure, COPD, Deep Vein Thrombosis (DVT), Eye Disorder, Fibromyalgia, GERD/Reflux, Hyperlipidemia, Hypertension, Memory Impairment, Myocardial Infarction ([place]), Osteoarthritis (OA), Pneumonia, Seizure Disorder, Skin Disorder, Syncope, Thyroid Disorder Additional Past Medical History / Comment(s): IBS, colitis, restless legs flexed syndrome, daily migraines, Vitamin D deficiency, benign left breast mass, gastri tis, short term memory loss. Vision - "sees an orange aura." BILAT CATARACTS Last seizure 09/22/2024, PT STATES THAT DR. VILLALBA IS AWARE"Legs are weak and balance is off." checked bone marrow for cancer. Pt has pressure ulcer over lower incision from surgery on 09/09/2024. States she had a blood clot in leg but not sure which leg or when Last Myocardial Infarction Date:: 2009 History of Any Multi-Drug Resistant Organisms: None Reported Past Surgical History: Back Surgery, Hysterectomy, Orthopedic Surgery Additional Past Surgical History / Comment(s): D&C, bilateral knee arthroscopy. Past Anesthesia/Blood Transfusion Reactions: No Reported Reaction Additional Past Anesthesia/Blood Transfusion Reaction / Comment(s): severe anxiety coming out of anesthesia,no hx blood transfusion Past Psychological History: Anxiety, Bipolar, Depression, PTSD Smoking Status: Current every day smoker Past Alcohol Use History: None Reported Past Drug Use History: Marijuana - Past Family History Father Family Medical History: Cancer Additional Family Medical History / Comment(s): Father of pancreatic cancer at the age of 62yrs. and lung cancer Mother Family Medical History: Congestive Heart Failure (CHF) Additional Family Medical History / Comment(s): Mother of CHF at the age of 60yrs. Brother(s) Additional Family Medical History / Comment(s): Patient had 1 brother that at 5 months of age. Sister(s) Family Medical History: Deep Vein Thrombosis (DVT) Additional Family Medical History / Comment(s): Patient has one sister with history of depression and bipolar. Patient has 2 half-sisters and one at age 26 from overdose. Patient does not have any children. Medications and Allergies Home Medications Medication Instructions Recorded Confirmed Type Asenapine Maleate [Saphris] 10 mg SUBLINGUAL BID 04/30/17 12/04/24 History Pantoprazole Sodium [Protonix] 40 mg PEG/G-TUBE BID 01/07/19 12/04/24 History Topiramate [Trokendi Xr] 100 mg PEG/G-TUBE DAILY 04/15/21 12/04/24 History Albuterol Sulfate [Proair Hfa] 2 puff INHALATION RT-Q6H PRN 05/10/21 12/04/24 History Prazosin HCl [Minipress] 2 mg PEG/G-TUBE BID 05/10/21 12/04/24 History rOPINIRole HCL [Requip] 2 mg PEG/G-TUBE BID 05/10/21 12/04/24 History Fluticasone/Umeclidin/Vilanter 1 puff INHALATION RT-DAILY 12/10/22 12/04/24 History [Trelegy Ellipta 100-62.5-25] Brivaracetam [Briviact] 100 mg PEG/G-TUBE BID 07/10/23 12/04/24 History Budesonide [Pulmicort] 0.5 mg INHALATION RT-Q12H PRN 07/27/23 12/04/24 History Cetirizine HCl [Zyrtec] 10 mg PEG/G-TUBE DAILY 07/27/23 12/04/24 History Fluticasone Nasal [place] [Flonase 1 spr EA NOSTRIL DAILY 07/27/23 12/04/24 History Nasal [place]] Levothyroxine Sodium [Synthroid] 88 mcg PEG/G-TUBE DAILY 07/27/23 12/04/24 History Propranolol [Inderal] 20 mg PEG/G-TUBE BID 07/27/23 12/04/24 History Acetaminophen Tab [Tylenol] 500 mg PEG/G-TUBE Q6HR PRN 10/25/24 12/04/24 History Cholecalciferol (Vitamin D3) 50 mcg PEG/G-TUBE DAILY 10/25/24 12/04/24 History [Vitamin D3 (50 Mcg = 2000 Iu)] Montelukast [Singulair] 10 mg PEG/G-TUBE HS 10/25/24 12/04/24 History busPIRone HCL 15 mg PEG/G-TUBE TID 10/25/24 12/04/24 History Enoxaparin [Lovenox] 40 mg SQ DAILY each 12/01/24 12/04/24 Rx Formoterol Fumarate [Perforomist] 20 mcg INHALATION RT-BID ml 12/01/24 12/04/24 Rx Ipratropium-Albuterol Nebulize 3 ml INHALATION RT-QID each 12/01/24 12/04/24 Rx [Duoneb 0.5 mg-3 mg/3 ml Soln] Fluconazole [Diflucan] 100 mg PEG/G-TUBE DAILY 12/04/24 12/04/24 History Folic Acid 0.4 mg PEG/G-TUBE DAILY 12/04/24 12/04/24 History Furosemide [Lasix] 20 mg PEG/G-TUBE DAILY 12/04/24 12/04/24 History Gabapentin [Neurontin] 100 mg PEG/G-TUBE TID 12/04/24 12/04/24 History HYDROcodone/APAP 5-325MG [[place] 1 tab PEG/G-TUBE Q6HR PRN 12/04/24 12/04/24 History 5-325] Ipratropium-Albuterol Nebulize 3 ml INHALATION RT-Q2H PRN 12/04/24 12/04/24 History [Duoneb 0.5 mg-3 mg/3 ml Soln] Loperamide [Imodium] 2 mg PEG/G-TUBE Q6H PRN 12/04/24 12/04/24 History Magnesium Hydroxide [Milk of 7,200 mg PEG/G-TUBE DAILY PRN 12/04/24 12/04/24 History Magnesia Concentrate] Multivitamins, Thera [Multivitamin 1 tab PEG/G-TUBE DAILY 12/04/24 12/04/24 History (formulary)] Sertraline HCl 200 mg PEG/G-TUBE DAILY 12/04/24 12/04/24 History Tamsulosin HCl [Flomax] 0.4 mg PEG/G-TUBE DAILY 12/04/24 12/04/24 History predniSONE [Deltasone] See Taper PEG/G-TUBE DAILY 12/04/24 12/04/24 History Allergies Allergy/AdvReac Type Severity Reaction Status Date / Time bee venom protein (honey bee) Allergy Anaphylaxis Verified 12/04/24 14:41 Physical Exam Vitals: Vital Signs Temp Pulse Resp BP Pulse Ox FiO2 12/04/24 16:15 95 28 12/04/24 15:50 93 18 158/98 94 L 12/04/24 14:00 84 18 164/103 94 L 12/04/24 11:02 98.4 F 76 18 148/89 94 L Intake and Output 12/04/24 12/04/24 12/04/24 06:59 14:59 22:59 Other: Weight 54.431 kg GENERAL: The patient is alert and oriented x3, not in any acute distress. Well developed, well nourished. Thin built HEENT: Pupils are round and equally reacting to light. EOMI. No scleral icterus. No conjunctival pallor. Normocephalic, atraumatic. No pharyngeal erythema. No thyromegaly. CARDIOVASCULAR: S1 and S2 present. No murmurs, rubs, or gallops. -PULMONARY: Chest is clear to auscultation, no wheezing , no crackles. Status post tracheostomy on trach collar ABDOMEN: Soft, nontender, nondistended, normoactive bowel sounds. No palpable organomegaly. -MUSCULOSKELETAL: No joint swelling or deformity. Deep open wound, central, vertical in the middle of her back with no significant purulent discharge or surrounding cellulitis EXTREMITIES: No cyanosis, clubbing, or pedal edema. NEUROLOGICAL: Gross neurological examination did not reveal any focal deficits. SKIN: No rashes. no petechiae. Results CBC & Chem 7: 12/04/24 14:17 Assessment and Plan Assessment: Surgical wound dehiscence of the thoracic spine wound, status post debridement prior to discharge last month. status post tracheostomy on trach collar and PEG tube placement Acute on chronic hypoxic respiratory failure Mild acute COPD exacerbation CHF Chronic hypoxic hypercapnic respiratory failure Hypertension Hyperlipidemia Hypothyroidism Seizure disorder History of DVT Chronic anemia Rectal prolapse Depression and PTSD Plan: Orthopedic team are planning for another excisional debridement of the thoracic spine infected wound Continue with antibiotic, currently on IV vancomycin and IV cefepime Infectious disease consult Continue with oxygen therapy Continue with bronchodilator as needed Protonix Continue with prednisone 10 mg daily Labs and medication were reviewed.. Continue same treatment. Continue with symptomatic treatment. Resume home medication. Monitor labs and vitals. DVT and GI prophylaxis. Further recommendations as per clinical course of the patient DVT prophylaxis: Subcutaneous Lovenox GI Prophylaxis: Pepcid PT/OT: Pending Prognosis is guarded
[2024-12-04] MEDS: PRAZOSIN 1 MG CAP PEG/G-TUBE SCH (20:33)
[2024-12-04] MEDS: ACETAMINOPHEN TAB 500 MG TAB PEG/G-TUBE PRN (20:33)
[2024-12-04] MEDS: MONTELUKAST 10 MG TAB PEG/G-TUBE SCH (20:33)
[2024-12-04] MEDS: ASENAPINE 5 MG TAB SUBLINGUAL SCH (20:34)
[2024-12-04] MEDS: PROPRANOLOL 20 MG TAB PEG/G-TUBE SCH (20:34)
[2024-12-04] MEDS: FLUTICASONE NASAL 50MCG/SPRAY 16GM BTL EA NOSTRIL SCH (20:38)
[2024-12-04] MEDS: FORMOTEROL FUMARATE 20 MCG/2 ML NEBU INHALATION SCH (20:41)
[2024-12-04] MEDS: IPRATROPIUM-ALBUTEROL 3 ML NEB INHALATION SCH (20:41)
[2024-12-04] MEDS: TOPIRAMATE 100 MG TAB PEG/G-TUBE SCH (21:45)
[2024-12-04] MEDS: NON FORMULARY DRUG (Brivaracetam [Briviact] 100 MG Tablet) PEG/G-TUBE SCH (23:28)
[2024-12-05] MEDS: VANCOMYCIN 1,000 MG in SODIUM CHLORIDE 0.9% 250 ML IVPB SCH (02:23)
[2024-12-05] MEDS: LEVOTHYROXINE 88 MCG TAB PEG/G-TUBE SCH (06:45)
[2024-12-05] MEDS ORDERED: NON FORMULARY DRUG (Fluticasone/Umeclidin/Vilanter [Trelegy Ellipta 100-62.5-25] 1 EACH Bl INHALATION SCH (08:00)
[2024-12-05 09:24] LABS: BUN/Creat Ratio 23.33 Ratio (12.00-20.00); Calcium 8.4 mg/dL (8.7-10.3); Carbon Dioxide 21.2 mmol/L (21.6-31.8); Chloride 105 mmol/L (96-109); Glucose 78 mg/dL (70-110); Potassium 3.4 mmol/L (3.5-5.5); Sodium 137 mmol/L (135-145)
[2024-12-05] MEDS: predniSONE 10 MG TAB PEG/G-TUBE SCH (09:30)
[2024-12-05] MEDS: FUROSEMIDE 20 MG TAB PEG/G-TUBE SCH (09:32)
[2024-12-05] MEDS: MULTIVITAMINS, THERA 1 EACH TAB PEG/G-TUBE SCH (09:32)
--- NOTE | 2024-12-05 09:32 | P.CNOR ---
History of Present Illness - [facility] Consult date: 12/05/24 Requesting physician: Lakesha Wooten Consult reason: other (wound dehiscence) History of present illness: Patient is a 54-year-old female who presents to the emergency department at [facility] as a transfer from rehab due to thoracolumbar wound dehiscence. Patient has had several spine surgeries and has had a problem healing multiple wounds with multiple washouts and revisions over the past couple years. Patient was just recently in the hospital admitted for four weeks after being found unresponsive at home. incision and drainage planned for later today. Patient denies any fever/chills. Denies any other problems at this time. Past Medical History Past Medical History: Asthma, Heart Failure, COPD, Deep Vein Thrombosis (DVT), Eye Disorder, Fibromyalgia, GERD/Reflux, Hyperlipidemia, Hypertension, Memory Impairment, Myocardial Infarction ([place]), Osteoarthritis (OA), Pneumonia, Seizure Disorder, Skin Disorder, Syncope, Thyroid Disorder Additional Past Medical History / Comment(s): IBS, colitis, restless legs flexed syndrome, daily migraines, Vitamin D deficiency, benign left breast mass, gastritis, short term memory loss. Vision - "sees an orange aura." BILAT CATARACTS Last seizure 09/22/2024, PT STATES THAT DR. VILLALBA IS AWARE"Legs are weak and balance is off." checked bone marrow for cancer. Pt has pressure ulcer over lower incision from surgery on 09/09/2024. States she had a blood clot in leg but not sure which leg or when Last Myocardial Infarction Date:: 2009 History of Any Multi-Drug Resistant Organisms: None Reported Past Surgical History: Back Surgery, Hysterectomy, Orthopedic Surgery Additional Past Surgical History / Comment(s): D&C, bilateral knee arthroscopy. Past Anesthesia/Blood Transfusion Reactions: No Reported Reaction Additional Past Anesthesia/Blood Transfusion Reaction / Comm: severe anxiety coming out of anesthesia,no hx blood transfusion Past Psychological History: Anxiety, Bipolar, Depression, PTSD Smoking Status: Current every day smoker Past Alcohol Use History: None Reported Past Drug Use History: Marijuana - Past Family History Father Family Medical History: Cancer Additional Family Medical History / Comment(s): Father of pancreatic cancer at the age of 62yrs. and lung cancer Mother Family Medical History: Congestive Heart Failure (CHF) Additional Family Medical History / Comment(s): Mother of CHF at the age of 60yrs. Brother(s) Additional Family Medical History / Comment(s): Patient had 1 brother that at 5 months of age. Sister(s) Family Medical History: Deep Vein Thrombosis (DVT) Additional Family Medical History / Comment(s): Patient has one sister with hi story of depression and bipolar. Patient has 2 half-sisters and one at age 26 from overdose. Patient does not have any children. Medications and Allergies Home Medications Medication Instructions Recorded Confirmed Type Asenapine Maleate [Saphris] 10 mg SUBLINGUAL BID 04/30/17 12/04/24 History Pantoprazole Sodium [Protonix] 40 mg PEG/G-TUBE BID 01/07/19 12/04/24 History Topiramate [Trokendi Xr] 100 mg PEG/G-TUBE DAILY 04/15/21 12/04/24 History Albuterol Sulfate [Proair Hfa] 2 puff INHALATION RT-Q6H PRN 05/10/21 12/04/24 History Prazosin HCl [Minipress] 2 mg PEG/G-TUBE BID 05/10/21 12/04/24 History rOPINIRole HCL [Requip] 2 mg PEG/G-TUBE BID 05/10/21 12/04/24 History Fluticasone/Umeclidin/Vilanter 1 puff INHALATION RT-DAILY 12/10/22 12/04/24 History [Trelegy Ellipta 100-62.5-25] Brivaracetam [Briviact] 100 mg PEG/G-TUBE BID 07/10/23 12/04/24 History Budesonide [Pulmicort] 0.5 mg INHALATION RT-Q12H PRN 07/27/23 12/04/24 History Cetirizine HCl [Zyrtec] 10 mg PEG/G-TUBE DAILY 07/27/23 12/04/24 History Fluticasone Nasal [place] [Flonase 1 spr EA NOSTRIL DAILY 07/27/23 12/04/24 History Nasal [place]] Levothyroxine Sodium [Synthroid] 88 mcg PEG/G-TUBE DAILY 07/27/23 12/04/24 History Propranolol [Inderal] 20 mg PEG/G-TUBE BID 07/27/23 12/04/24 History Acetaminophen Tab [Tylenol] 500 mg PEG/G-TUBE Q6HR PRN 10/25/24 12/04/24 History Cholecalciferol (Vitamin D3) 50 mcg PEG/G-TUBE DAILY 10/25/24 12/04/24 History [Vitamin D3 (50 Mcg = 2000 Iu)] Montelukast [Singulair] 10 mg PEG/G-TUBE HS 10/25/24 12/04/24 History busPIRone HCL 15 mg PEG/G-TUBE TID 10/25/24 12/04/24 History Enoxaparin [Lovenox] 40 mg SQ DAILY each 12/01/24 12/04/24 Rx Formoterol Fumarate [Perforomist] 20 mcg INHALATION RT-BID ml 12/01/24 12/04/24 Rx Ipratropium-Albuterol Nebulize 3 ml INHALATION RT-QID each 12/01/24 12/04/24 Rx [Duoneb 0.5 mg-3 mg/3 ml Soln] Fluconazole [Diflucan] 100 mg PEG/G-TUBE DAILY 12/04/24 12/04/24 History Folic Acid 0.4 mg PEG/G-TUBE DAILY 12/04/24 12/04/24 History Furosemide [Lasix] 20 mg PEG/G-TUBE DAILY 12/04/24 12/04/24 History Gabapentin [Neurontin] 100 mg PEG/G-TUBE TID 12/04/24 12/04/24 History HYDROcodone/APAP 5-325MG [[place] 1 tab PEG/G-TUBE Q6HR PRN 12/04/24 12/04/24 History 5-325] Ipratropium-Albuterol Nebulize 3 ml INHALATION RT-Q2H PRN 12/04/24 12/04/24 History [Duoneb 0.5 mg-3 mg/3 ml Soln] Loperamide [Imodium] 2 mg PEG/G-TUBE Q6H PRN 12/04/24 12/04/24 History Magnesium Hydroxide [Milk of 7,200 mg PEG/G-TUBE DAILY PRN 12/04/24 12/04/24 History Magnesia Concentrate] Multivitamins, Thera [Multivitamin 1 tab PEG/G-TUBE DAILY 12/04/24 12/04/24 History (formulary)] Sertraline HCl 200 mg PEG/G-TUBE DAILY 12/04/24 12/04/24 History Tamsulosin HCl [Flomax] 0.4 mg PEG/G-TUBE DAILY 12/04/24 12/04/24 History predniSONE [Deltasone] See Taper PEG/G-TUBE DAILY 12/04/24 12/04/24 History Allergies Allergy/AdvReac Type Severity Reaction Status Date / Time bee venom protein (honey bee) Allergy Anaphylaxis Verified 12/04/24 14:41 Physical Examination -10 cm wound dehiscence on thoracolumbar spine. Negative for any active drainage. Negative for any significant ecchymosis or erythema. Sensation is equal, symmetric, bilateral intact throughout the upper and lower extremities. There is some generalized tenderness to patient throughout the spine on exam. Nontender on rest of exam. Patient does have good range of motion throughout bilateral upper and lower extremities on exam. 4/5 in all major motor groups in bilateral upper and lower extremities. Radial pulse intact bilaterally. Negative Homans, Suhas, clonus bilaterally. Results - Labs Result Diagrams: 12/05/24 03:29 Assessment and Plan Assessment: 1. Wound dehiscence thoracolumbar spine s/p multiple spine surgeries and multiple I&D's Plan: 1. Wound dehiscence thoracolumbar spine s/p multiple spine surgeries and multiple I&D's -surgery has been scheduled for later today, 12/05/2024 for revision incision and drainage and irrigation debridement with closure. Patient to be n.p.o. at this time. Pain medication as needed. Weightbearing as tolerated with walker. We will continue to follow patient during stay in hospital. 2. Appreciate medical management and other specialty recommendation 3. Pain management - norco; tylenol 4. DVT prophylaxis - lovenox 5. GI prophylaxis - milk of mag; protoonix 6. PT/OT -weightbearing as tolerated with walker and assistance 7. Encourage incentive spirometer use 8. Appreciate consult Time with Patient: Less than 30
[2024-12-05] MEDS: BUDESONIDE 0.5 MG/2 ML NEBU INHALATION PRN (09:57)
[2024-12-05 10:13] LABS: Basophils # (A) 0.04 X 10*3/uL (0.00-0.10); Basophils % (A) 0.5 %; Eosinophils % (A) 3.8 %; HCT 24.6 % (37.2-46.3); HGB 7.5 g/dL (12.0-15.0); Lymphocytes # (A) 1.59 X 10*3/uL (0.90-5.00); Lymphocytes % (A) 20.2 %; MCH 30.2 pg (27.0-32.0); MCHC 30.5 g/dL (32.0-37.0); MCV 99.2 FL (80.0-97.0); Mean Platelet Volume 10.8 FL (9.5-12.2); Monocytes # (A) 0.57 X 10*3/uL (0.20-1.00); Monocytes % (A) 7.3 %; NRBC Per 100 WBC 0 X 10*3/uL (0.00-0.01); Neutrophils # (A) 5.34 X 10*3/uL (1.80-7.70); Neutrophils % (A) 67.9 %; Platelet Count 356 X 10*3/uL (140-440); RBC 2.48 X 10*6/uL (4.10-5.20); RDW 18.6 % (11.5-14.5); WBC 7.86 X 10*3/uL (4.50-10.00)
[2024-12-05] MEDS ORDERED: LORazepam 1 MG/0.5 ML VIAL IV PRN (12:34)
[2024-12-05] MEDS: IV FLUID CONTINUATION 1,000 ML IV ONE (13:18)
[2024-12-05] MEDS: IPRATROPIUM-ALBUTEROL 3 ML NEB INHALATION PRN (13:24)
[2024-12-05] MEDS: ONDANSETRON 4 MG/2 ML VIAL IVP STA (13:31)
[2024-12-05] MEDS ORDERED: fentaNYL (PF) 50 MCG/ML 2 ML AMP ONE (14:05)
[2024-12-05] MEDS ORDERED: PHENYLEPHRINE-0.9% NACL SYG 1,000 MCG/10 ML SYRINGE ONE (14:05)
[2024-12-05] MEDS ORDERED: VASOPRESSIN 20 UNIT/ML 1 ML VIAL ONE (14:05)
[2024-12-05] MEDS ORDERED: SUCCINYLCHOLINE CHLORIDE 200 MG/10 ML VIAL IV ONE (14:05)
[2024-12-05] MEDS ORDERED: LIDOCAINE 1% INJ 10MG/ML (20 ML MDV) ONE (14:05)
[2024-12-05] MEDS ORDERED: ePHEDrine 50 MG/ML 1 ML VIAL ONE (14:05)
[2024-12-05] MEDS ORDERED: WATER FOR INJECTION, STERILE 10 ML VIAL IV ONE (14:05)
[2024-12-05] MEDS ORDERED: PROPOFOL 10 MG/ML 20 ML VIAL IV ONE (14:05)
--- NOTE | 2024-12-05 14:28 | P.PN ---
Progress Note - Text Progress Note Date: 12/05/24 LATASHA TAPIA [facility] PROVIDER: MICHELLEMIKE Dec 05, 2024 2:00?PM SPINE SURGERY CLINICAL AND RISK REVIEW CLAUDIA CH is a 54 YO FEMALE presenting for evaluation of THORACOLUMBAR WOUND DEHISCENCE. It was my pleasure to have seen and examined CLAUDIA CH. In our visit today we have had a chance to go over subjective complaints, physical examination findings and treatments including the natural course history without intervention and various interventional options. The patient's imaging demonstrates the following findings: STABLE POST OP FINDINGS AFTER FRACTURE AND FIXATION On a physical exam,CLAUDIA CH demonstrates the following findings: OPEN THORACOLUMBAR WOUND, CAUDAL 10 CM OF WOUND OPENED UP AT REHAB FACILITY PAIN RELATED NO FEVERS OR CHILLS RECOVERED MOTOR EXAM AND SENSORY EXAM I have explained to the patient that as their condition progresses it will cause further neurological deficits and eventual paralysis. Based on the patients imaging, physical exam, and the rapid progression and disabling nature of their symptoms, at this time I recommend surgery in the form of a: IRRIGATION AND DEBRIDEMENT WITH CLOSURE OF THORACOLUMBAR SPINE. I discussed the risk and benefits of this procedure at length with CLAUDIA CH. The patient has agreed to consider pursuing the procedure above mentioned. Prior to surgery, they should follow up with her PCP (Cardio, ID, IM etc) for clearance. Questions were invited and answered, and the patient wishes to proceed as outlined below. Currently, I am recommending: IRRIGATION AND DEBRIDEMENT WITH CLOSURE OF THORACOLUMBAR SPINE Obtain appropriate presurgical workup and clearances as discussed with the patie nt. Review of surgical risks and benefits as well as an educational packet on the proposed surgical procedure. Risks: All surgical procedures come with inherent risks, including those related to positioning, anesthesia, intraoperative findings, and postoperative complications. It is important to understand that surgery does not come with any guarantee of a successful outcome as complications and adverse events are always possible. The patient was given a handout in the office today discussing the surgical procedure and risks associated with the intervention, both of which were discussed with the patient. These risks include but are not limited to the following: Experiencing same, different or even worse symptoms in back, neck, arms, or legs compared to before surgery. Requiring further surgery or other forms of treatment presently or at some time in the future at same or other levels of the intended spine surgery. On an extreme but fortunately relatively rare basis severe complications such as blindness, stroke, heart attack, temporary and/or permanent nerve injury, paralysis, coma, or may occur, sometimes without known explanation. Surgical complications may include but are not limited to risk of infection, fluid accumulation in the surgical dissection site, including a seroma or hematoma, that requires additional surgery, wound drainage, bleeding, new numbness or weakness, vision changes/loss, spinal fluid leakage, non-healing and/or infected incision, headaches, difficulty or inability to swallow, hoarseness, hemopneumothorax, pneumothorax, impotence, retrograde ejaculation, vaginal dryness; injury to nerves, spinal cord, blood vessels, lymphatics or other vital organs (i.e., bowel injury, injury to the great vessels); heterotopic bone formation; complications related to the hardware such as screws, rods, cages including misplaced hardware, device failure, instrumentation at the wrong spine level, hardware fracture/breakage, or hardware loosening; vertebral failure of the spinal column above or below the newly placed hardware; retained surgical instrumentations or devices and the need for further surgery. Medical risks of the planned spine surgery include but are not limited to generalized Infections to the whole body or local areas outside of the surgical site (sepsis), heart attack, bleeding, anaphylaxis, meningitis, seizure, epile psy, hearing loss, burn lópez, laceration of the head or other areas of the body, bruising, hypersensitivity of the skin, bladder over distension; allergic reaction; shoulder injury related to positioning; fat, blood and air clots to other areas of the body like heart, lungs, brain; failure of internal organs such as lungs, kidneys, liver and excessive bleeding. If blood transfusions are necessary, note that transfusions may cause intolerance reactions such as anaphylaxis or other complex reactions. Despite best efforts, the results of spine surgery might not heal in terms of bone, soft tissues such as skin, fascia, ligaments, and joints. Additionally, in order to achieve best possible results, spine surgery may be carried out beyond the initially planned levels and involve decompression, fusion including insertion of hardware at levels other than the original intended area of surgical interest change some portions of the procedure in order to ensure the best possible outcomes. With spine surgery and spinal fusion, there are different off label uses of instrumentation (devices, implants and hardware) as well as biological substances (bone morphogenic proteins, demineralized bone matrix) as well as using extra bone from allograft sources (i.e. cadaver bone) or autograft (iliac crest bone, ribs, or the spine itself). The patient has been given information about these practices and their inherent risks and benefits. The patient has had a chance to review all the listed information, has been given print outs detailing this information, and has had all his/her questions answered to their satisfaction. It was my pleasure to have seen and examined CLAUDIA CH. In our visit today we have had a chance to go over my understanding of our patient's current condition, the natural course history without intervention and various interventional options. Questions were invited and answered, and the patient wishes to proceed as outlined above. I have seen and examined the patient for 25 minutes and we have spent more than 50% of the time in repeat and detailed counseling about the patient's condition, its natural course history without and as much as can be predicted with surgery and re-review of various surgical treatment options. In conclusion, CLAUDIA CH and their family requested we proceed with the above suggested surgery and are willing to accept risks and limitations of the suggested surgery as the nature of the disease process and our best attempts at treatment for the condition. In our visit today the patient and I have had a chance to go over my unders tanding of their current condition, the natural course history without intervention and various interventional options. Questions were invited and answered, and the patient wishes to proceed as outlined above. I will be sure to keep you updated after the patient returns here for further follow-up. Thank you again for your referral. Please do not hesitate to contact me if you have any further questions. Signed and authenticated by: Dec 05, 2024 2:20?PM EDT DO Latasha Jaimeson [facility] [id number] [facility], [address] [address] This document is confidential, intended only for the named recipient(s) and may contain information that is privileged or exempt from disclosure under applicable law. If you are not the intended recipient(s), you are notified that the dissemination, distribution or copying of this information is strictly prohibited. If you received this message in error, please notify the sender then delete this message.
[2024-12-05] MEDS: ceFAZolin 3,000 MG in SODIUM CHLORIDE 0.9% IRRIGATIO 3,000 ML IRRIGATION ONE (14:46)
[2024-12-05] MEDS: GENTAMICIN 80 MG in SODIUM CHLORIDE 0.9% IRRIGATIO 3,000 ML IRRIGATION ONE (14:46)
[2024-12-05] MEDS: VANCOMYCIN 1,000 MG VIAL MISCELLANE ONE (14:54)
[2024-12-05] MEDS: LACTATED RINGERS 1,000 ML IV ONE (15:10)
--- NOTE | 2024-12-05 15:16 | P.OP ---
Date of Procedure: 12/05/24 Preoperative Diagnosis: 1. THORACOLUMBAR WOUND DEHISCENCE 2. S/P REVISION STABILIZATION AND FUSION FOR MULTIPLE T SPINE FRACTURES 3. RECENT HOSPITALIZATION FOR OD AND FOUND DOWN 4. COMPLEX MEDICAL PATIENT Postoperative Diagnosis: 1. THORACOLUMBAR WOUND DEHISCENCE 2. S/P REVISION STABILIZATION AND FUSION FOR MULTIPLE T SPINE FRACTURES 3. RECENT HOSPITALIZATION FOR OD AND FOUND DOWN 4. COMPLEX MEDICAL PATIENT Procedure(s) Performed: 1. IRRIGATION AND EXCISIONAL DEBRIDEMENT OF THORACOLUMBAR SPINE WOUND 10X4X3 CM SKIN, SOFT TISSUE, MUSCLE USING THE FOLLOWING: -KINFE TO EXCISE SKIN AND SOFT TISSUES -CURETTE TO SCRAPE SUBQ AND MUSCLE -IRRIGANT Implants: NONE Anesthesia: GETA Surgeon: Leonel Mchugh Employment Trainer #1: Bob Small (WAS PRESENT AND ASSISTED WITH ALL ASPECTS OF THE CASE FROM POSITIONING TO DRESSING PLACEMENT) Estimated Blood Loss (ml): 20 IV fluids (ml): 800 Urine output (ml): 250 Pathology: other (X2 THORACOLUMBAR WOUND 1 AND 2) Condition: stable Disposition: PACU Indications for Procedure: CLAUDIA CH is a 54 YO FEMALE presenting for evaluation of THORACOLUMBAR WOUND DEHISCENCE. It was my pleasure to have seen and examined CLAUDIA CH. SHE RECENTLY WENT TO REHAB AND HER SUTURES WERE REMOVED. THIS HAS CAUSED HER TO HAVE DEHISCENCE OF HER WOUND. SHE REPRESENTED DUE TO THIS. In our visit today we have had a chance to go over subjective complaints, physical examination findings and treatments including the natural course history without intervention and various interventional options. The patient's imaging demonstrates the following findings: STABLE POST OP FINDINGS AFTER FRACTURE AND FIXATION On a physical exam,CLAUDIA CH demonstrates the following findings: OPEN THORACOLUMBAR WOUND, CAUDAL 10 CM OF WOUND OPENED UP AT REHAB FACILITY PAIN RELATED NO FEVERS OR CHILLS RECOVERED MOTOR EXAM AND SENSORY EXAM I have explained to the patient that as their condition progresses it will cause further neurological deficits and eventual paralysis. Based on the patients imaging, physical exam, and the rapid progression and disabling nature of their symptoms, at this time I recommend surgery in the form of a: IRRIGATION AND DEBRIDEMENT WITH CLOSURE OF THORACOLUMBAR SPINE. I discussed the risk and benefits of this procedure at length with CLAUDIA CH. The patient has agreed to consider pursuing the procedure above mentioned. Prior to surgery, they should follow up with her PCP (Cardio, ID, IM etc) for clearance. Questions were invited and answered, and the patient wishes to proceed as outlined below. Currently, I am recommending: IRRIGATION AND DEBRIDEMENT WITH CLOSURE OF THORACOLUMBAR SPINE Description of Procedure: THORACOLUMBAR INCISION AND DRAINAGE WITH IRRIGATION AND DEBRIDEMENT The patient was seen and examined in the preoperative area. All preoperative protocols were followed. Informed consent was obtained, risks and benefits of the procedure were discussed at length. Risks including bleeding infection damage to the surrounding tissue and risk of reoperation were discussed with the patient. Risk of anesthesia up to and including was discussed with the patient. These are outlined in the risk review. They were willing to accept these risks and all of the risks of surgery. The patient was given a weight- based dose of antibiotics FROM THE FLOOR with a weight-based dose of vancomycin. The patient was seen and evaluated by the anesthesia team who deemed them fit for surgery. The site was marked, the patient was willing to proceed with the p rocedure. The patient was transferred to the operative suite by the Department of anesthesia. They were then drifted off to sleep by the department anesthesia and GETA was performed. The patient tolerated this well. Howell catheter was placed by nursing staff, atraumatically. Once confirmation of lines and ventilation the patient was transferred to a prone Valentino table very carefully. All bony prominences including wrists, elbows, axilla, chest, hips, and thighs, and feet were padded very well. Special attention was paid to the genitalia and these were padded accordingly. SCDs were placed on bilateral lower extremities and were connected. Arms were well padded and placed on arm boards up and out in the 90/90 position. Once in position, again we confirmed good ventilation capabilities and that lines were running appropriately. The patient's thoracolumbar spine was then exposed. 1010s were placed outlining the incision site. Standard alcohol was used to clean the incision site and allowed to dry. Operative briefing was performed with all teams and everyone in agreement to proceed. The patient was then prepped and draped in a normal sterile fashion. Timeout was then performed and all parties were in agreement with the procedure to be performed. Dehisced portion of the wound was inspected there was no opening of the facia deep or communication with good healing. There was only skin and soft tissues open. The wound was then cultured. Copious irrigation was then done. The area which was open on the skin was ellipticized with a skin knife and removed. The tract was then removed using a skin knife and Bovie. We then once again irrigated with Betadine solution and 1 L. This was allowed to stand for 1 minute as well. We then irrigated this out with normal sterile saline and continued with debridement. Irrisept 1 L was then used again and let stand for 1 minute was then followed by normal sterile saline washout. We then ended with 1 L of Betadine solution which was then let stand for 1 minute and irrigated out completely. We then irrigated with 3 L of an Ancef solution along with 3 L of gentamicin solution along with 6 L of normal sterile saline well debriding skin soft tissue in this area removing any loose or necrotic type tissue. Hemostasis was achieved. 1 g of vancomycin powder was placed deep in the wound. Once these were placed we proceeded with layered closure first in the deep fascia with #1 PDS in a simple fashion. This was then over sewn with 0 PDS stratafix, unidirectional. Deep subcu tissues were closed with 0 Vicryl superficial subcu tissues closed with 2-0 Vicryl and skin was closed with 2-0 nylon in a simple fashion. wound edges approximated very well. The drain was then sewn in place with a stitch. The drain was connected and had good suction and inflow. The wound was then cleaned and dressed sterilely with Adaptic 4 x 4s ABDs and foam tape. The patient was transferred back to their hospital bed atraumatically. The patient was then awakened and extubated by the department of anesthesia having tolerated the procedure very well with no complications. They were transferred to the postoperative care unit in stable condition.
[2024-12-05] MEDS: VANCOMYCIN TROUGH DUE 1 EACH MISC MISCELLANE ONE (16:17)
--- NOTE | 2024-12-05 19:00 | P.CNPUL ---
History of Present Illness Consult date: 12/05/24 Reason for consult: COPD History of present illness: On 12/05/2024, patient is being seen in consultation for COPD and complications of a previous thoracolumbar wound dehiscence. The patient has advanced COPD and she is chronically debilitated due to various other comorbidities which include coronary artery disease, hypertension, hyperlipidemia, hypothyroidism, seizure disorder, chronic anxiety/depression/PTSD. Noted the patient had back pain with progressive neurologic deficits due to cervical myelopathy and neck pain with upper and lower extremity weakness. The patient underwent a C3-7 ACDF for severe spondylosis, deformity and stenosis in addition to bilateral laminectomy and partial medial facetectomy and foraminotomy and his initial surgery was done on 07/15/2023. Subsequently, the patient was found to have a T2 vertebral body fracture with distal junctional failure of C2-T2 decompression and fusion. The patient also had a T2-T3 severe kyphosis. The patient underwent an open T2 vertebral body treatment with T2-3 osteotomy for deformity correction and posterior lateral and interbody fusion and revision of the C2-T7 posterolateral instrumented fusion and insertion of a biomechanical device T2-3, cage #1. Subsequently, the patient was taken again to the operating room on 10/27/2024 for dehiscence of the thoracic spine wound and a T8 burst compression fracture with kyphotic deformity. The patient at that time underwent open treatment of T8 fracture and irrigation excisional debridement of the thoracic spine wound and cement augmentation of T8, T9 and T10 vertebral bodies. Postop, the patient presented to us to the emergency room with respiratory failure, obtunded, responsive and she had to be intubated. She remained on the mechanical ventilator and she failed to wean as the patient is known to have advanced COPD. During the course of her illness, she was tested positive for Pseudomonas aeruginosa in her lungs. She was treated accordingly. Ultimately, the patient underwent a tracheostomy tube insertion, she was weaned off to mechanical ventilator and she was liberated from the mechanical ventilator. She was discharged to an [facility] and following that, she was transferred to [facility] for his ongoing wound dehiscence. Based on that, the patient was transferred back to our facility for further care. CAT scan of the spine demonstrated extensive surgical changes of the thoracolumbar spine with pedicle screws and interbody rods. Small foci of subcutaneous air in the soft tissue was present p osterior to T10, T12 and L1. The patient was afebrile the patient was hemodynamically stable. Normal renal function. Based on that, the patient will be taken again to the operating room for irrigation and excisional debridement of the wound. For now, the patient was restarted on vancomycin cefepime and Diflucan. She has PEG tube for enteral feeding and nutritional support. She remains on 10 mg of prednisone. The patient is currently on 28% trach collar, 5 L of oxygen with a pulse ox of 98%. The patient's white cell count is at 7.8 with a hemoglobin 7.5 and a platelet count of 356. Sodium is at 137, potassium is at 3.4, BUN is 14 with a creatinine of 0.6. Serum calcium level is at 8.4. The patient remains on DuoNeb nebulized treatments [id number]. The patient is on a combination of Perforomist and Pulmicort nebulized treatments twice a day. The patient is on a maintenance prednisone of 10 mg p.o. daily regarding her advanced COPD. The chest x-ray from 11/30/2024 shows COPD without any acute abnormalities. Hemodynamically stable. Review of Systems Constitutional: Reports fatigue, Reports poor appetite, Reports weight loss Eyes: denies as per HPI, denies blurred vision, denies bulging eye, denies d ecreased vision, denies diplopia, denies discharge, denies dry eye, denies irritation, denies itching, denies pain, denies photophobia, denies loss of peripheral vision, denies loss of vision, denies tunnel vision/blind spots Ears: deny: decreased hearing, ear discharge, earache, tinnitus Ears, nose, mouth and throat: Reports as per HPI Breasts: absent: as per HPI, change in shape, gynecomastia, masses, nipple discharge, pain, skin changes, swelling Cardiovascular: Reports as per HPI, Reports decreased exercise tolerance Respiratory: Reports dyspnea, Reports home oxygen, Reports wheezing Gastrointestinal: Reports as per HPI Genitourinary: Reports as per HPI Menstruation: Reports as per HPI Musculoskeletal: Reports as per HPI, Reports gait dysfunction, Reports limit ation of motion, Reports muscle weakness Musculoskeletal: absent: ankle pain, ankle stiffness, ankle swelling, as per HPI, elbow pain, elbow stiffness, elbow swelling, foot pain, foot stiffness, foot swelling, hand pain, hand stiffness, hand swelling, hip pain, hip stiffness , hip swelling, knee pain, knee stiffness, knee swelling, shoulder pain, shoulder stiffness, shoulder swelling, wrist pain, wrist stiffness, wrist swelling Integumentary: Reports as per HPI Neurological: Reports gait dysfunction, Reports lack of coordination, Reports motor disturbance, Reports seizures, Reports weakness Psychiatric: Reports as per HPI, Reports confusion Endocrine: Reports fatigue Hematologic/Lymphatic: Reports as per HPI Allergic/Immunologic: Reports as per HPI Past Medical History Past Medical History: Asthma, Heart Failure, COPD, Deep Vein Thrombosis (DVT), Eye Disorder, Fibromyalgia, GERD/Reflux, Hyperlipidemia, Hypertension, Memory Impairment, Myocardial Infarction (RI), Osteoarthritis (OA), Pneumonia, Seizure Disorder, Skin Disorder, Syncope, Thyroid Disorder Additional Past Medical History / Comment(s): IBS, colitis, restless legs flexed syndrome, daily migraines, Vitamin D deficiency, benign left breast mass, gastritis, short term memory loss. Vision - "sees an orange aura." BILAT CATARACTS Last seizure 09/22/2024, PT STATES THAT DR. VILLALBA IS AWARE"Legs are weak and balance is off." checked bone marrow for cancer. Pt has pressure ulcer over lower incision from surgery on 09/09/2024. States she had a blood clot in leg but not sure which leg or when Last Myocardial Infarction Date:: 2009 History of Any Multi-Drug Resistant Organisms: None Reported Past Surgical History: Back Surgery, Hysterectomy, Orthopedic Surgery Additional Past Surgical History / Comment(s): D&C, bilateral knee arthroscopy. Past Anesthesia/Blood Transfusion Reactions: No Reported Reaction Additional Past Anesthesia/Blood Transfusion Reaction / Comment(s): severe anxiety coming out of anesthesia,no hx blood transfusion Past Psychological History: Anxiety, Bipolar, Depression, PTSD Smoking Status: Current every day smoker Past Alcohol Use History: None Reported Past Drug Use History: Marijuana - Past Family History Father Family Medical History: Cancer Additional Family Medical History / Comment(s): Father of pancreatic cancer at the age of 62yrs. and lung cancer Mother Family Medical History: Congestive Heart Failure (CHF) Additional Family Medical History / Comment(s): Mother of CHF at the age of 60yrs. Brother(s) Additional Family Medical History / Comment(s): Patient had 1 brother that at 5 months of age. Sister(s) Family Medical History: Deep Vein Thrombosis (DVT) Additional Family Medical History / Comment(s): Patient has one sister with history of depression and bipolar. Patient has 2 half-sisters and one at age 26 from overdose. Patient does not have any children. Medications and Allergies Home Medications Medication Instructions Recorded Confirmed Type Asenapine Maleate [Saphris] 10 mg SUBLINGUAL BID 04/30/17 12/04/24 History Pantoprazole Sodium [Protonix] 40 mg PEG/G-TUBE BID 01/07/19 12/04/24 History Topiramate [Trokendi Xr] 100 mg PEG/G-TUBE DAILY 04/15/21 12/04/24 History Albuterol Sulfate [Proair Hfa] 2 puff INHALATION RT-Q6H PRN 05/10/21 12/04/24 History Prazosin HCl [Minipress] 2 mg PEG/G-TUBE BID 05/10/21 12/04/24 History rOPINIRole HCL [Requip] 2 mg PEG/G-TUBE BID 05/10/21 12/04/24 History Fluticasone/Umeclidin/Vilanter 1 puff INHALATION RT-DAILY 12/10/22 12/04/24 History [Trelegy Ellipta 100-62.5-25] Brivaracetam [Briviact] 100 mg PEG/G-TUBE BID 07/10/23 12/04/24 History Budesonide [Pulmicort] 0.5 mg INHALATION RT-Q12H PRN 07/27/23 12/04/24 History Cetirizine HCl [Zyrtec] 10 mg PEG/G-TUBE DAILY 07/27/23 12/04/24 History Fluticasone Nasal Grant [Flonase 1 spr EA NOSTRIL DAILY 07/27/23 12/04/24 History Nasal Grant] Levothyroxine Sodium [Synthroid] 88 mcg PEG/G-TUBE DAILY 07/27/23 12/04/24 History Propranolol [Inderal] 20 mg PEG/G-TUBE BID 07/27/23 12/04/24 History Acetaminophen Tab [Tylenol] 500 mg PEG/G-TUBE Q6HR PRN 10/25/24 12/04/24 History Cholecalciferol (Vitamin D3) 50 mcg PEG/G-TUBE DAILY 10/25/24 12/04/24 History [Vitamin D3 (50 Mcg = 2000 Iu)] Montelukast [Singulair] 10 mg PEG/G-TUBE HS 10/25/24 12/04/24 History busPIRone HCL 15 mg PEG/G-TUBE TID 10/25/24 12/04/24 History Enoxaparin [Lovenox] 40 mg SQ DAILY each 12/01/24 12/04/24 Rx Formoterol Fumarate [Perforomist] 20 mcg INHALATION RT-BID ml 12/01/24 12/04/24 Rx Ipratropium-Albuterol Nebulize 3 ml INHALATION RT-QID each 12/01/24 12/04/24 Rx [Duoneb 0.5 mg-3 mg/3 ml Soln] Fluconazole [Diflucan] 100 mg PEG/G-TUBE DAILY 12/04/24 12/04/24 History Folic Acid 0.4 mg PEG/G-TUBE DAILY 12/04/24 12/04/24 History Furosemide [Lasix] 20 mg PEG/G-TUBE DAILY 12/04/24 12/04/24 History Gabapentin [Neurontin] 100 mg PEG/G-TUBE TID 12/04/24 12/04/24 History HYDROcodone/APAP 5-325MG [[place] 1 tab PEG/G-TUBE Q6HR PRN 12/04/24 12/04/24 H istory 5-325] Ipratropium-Albuterol Nebulize 3 ml INHALATION RT-Q2H PRN 12/04/24 12/04/24 His tory [Duoneb 0.5 mg-3 mg/3 ml Soln] Loperamide [Imodium] 2 mg PEG/G-TUBE Q6H PRN 12/04/24 12/04/24 History Magnesium Hydroxide [Milk of 7,200 mg PEG/G-TUBE DAILY PRN 12/04/24 12/04/24 History Magnesia Concentrate] Multivitamins, Thera [Multivitamin 1 tab PEG/G-TUBE DAILY 12/04/24 12/04/24 History (formulary)] Sertraline HCl 200 mg PEG/G-TUBE DAILY 12/04/24 12/04/24 History Tamsulosin HCl [Flomax] 0.4 mg PEG/G-TUBE DAILY 12/04/24 12/04/24 History predniSONE [Deltasone] See Taper PEG/G-TUBE DAILY 12/04/24 12/04/24 History Allergies Allergy/AdvReac Type Severity Reaction Status Date / Time bee venom protein (honey bee) Allergy Anaphylaxis Verified 12/04/24 14:41 Physical Exam Vitals: Vital Signs Temp Pulse Pulse Resp BP BP Pulse Ox 12/05/24 13:08 97.3 F L 86 17 150/82 95 12/05/24 10:53 16 98 12/05/24 10:30 84 12/05/24 10:19 84 12/05/24 10:18 84 12/05/24 09:57 80 12/05/24 06:57 98.2 F 84 20 153/90 96 12/05/24 03:20 96 12/05/24 02:15 98.0 F 76 18 148/92 97 12/04/24 23:57 12/04/24 23:00 82 16 12/04/24 21:03 94 12/04/24 20:53 95 12/04/24 20:52 90 12/04/24 20:42 93 12/04/24 19:39 98.2 F 82 16 155/88 97 12/04/24 16:15 95 12/04/24 15:50 93 18 158/98 94 L 12/04/24 14:00 84 18 164/103 94 L FiO2 12/05/24 13:08 12/05/24 10:53 12/05/24 10:30 12/05/24 10:19 12/05/24 10:18 12/05/24 09:57 28 12/05/24 06:57 12/05/24 03:20 28 12/05/24 02:15 12/04/24 23:57 28 12/04/24 23:00 12/04/24 21:03 12/04/24 20:53 12/04/24 20:52 12/04/24 20:42 12/04/24 19:39 12/04/24 16:15 28 12/04/24 15:50 12/04/24 14:00 Intake and Output 12/04/24 12/05/24 12/05/24 22:59 06:59 14:59 Intake Total 350 Balance 350 Intake: Intake, IV Titration 350 Amount Cefepime 2 gm In Sodium 100 Chloride 0.9% 100 ml @ 25 mls/hr IVPB Q8HR [facility] Rx# :[id number] Vancomycin 1,000 mg In 250 Sodium Chloride 0.9% 250 ml @ 125 mls/hr IVPB Q12H [facility] Rx#:[id number] Other: Voiding Method External Catheter Incontinent # Voids 1 5 Weight 54.431 kg GENERAL EXAM: Awake, pleasant 54-year-old female, resting comfortably, on 28% FiO2 via trach collar, in no apparent distress. HEAD: Normocephalic. EYES: Normal reaction of pupils, equal size. NOSE: Clear with pink turbinates. THROAT: Tracheostomy tube secured in place. No erythema or exudates. NECK: No masses, no JVD. CHEST: No chest wall deformity. LUNGS: Equal air entry with no crackles, wheeze, rhonchi or dullness. CVS: S1 and S2 normal with no audible murmur, regular rhythm. ABDOMEN: PEG tube exit site clean and dry. No hepatosplenomegaly, normal bowel sounds, no guarding or rigidity. SPINE: No scoliosis or deformity CENTRAL NERVOUS SYSTEM: No noted focal deficit, tone is normal in all 4 extremities. Patient does have good range of motion throughout bilateral upper and lower extremities on exam. 4/5 in all major motor groups in bilateral upper and lower extremities. Radial pulse intact bilaterally. Negative Homans, Hayley adams, clonus bilaterally. EXTREMITIES: There is no peripheral edema. No clubbing, no cyanosis. Per ipheral pulses are intact. Skin A 10 cm wound dehiscence on thoracolumbar spine. Negative for any active drainage. Negative for any significant ecchymosis or erythema. Sensation is equal, symmetric, bilateral intact throughout the upper and lower extremities. There is some generalized tenderness to patient throughout the spine on exam. Nontender on rest of exam. Results - Laboratory Findings CBC and BMP: 12/05/24 03:29 12/05/24 03:29 Abnormal lab findings: Abnormal Labs 12/04/24 12/05/24 12/05/24 14:17 03: 03:29 RBC 2.48 L Hgb 7.5 L Hct 24.6 L MCV 99.2 H MCHC 30.5 L RDW 18.6 H ESR 37 H Potassium 3.4 L Carbon Dioxide 21.2 L BUN/Creatinine Ratio 23.33 H Calcium 8.4 L Assessment and Plan Plan: Thoracolumbar wound dehiscence awaiting surgical irrigation and excisional debridement by spine surgery. Patient is currently covered with broad-spectrum antibiotics including cefepime, vancomycin and Diflucan. Hemodynamically stable. Afebrile. Advanced COPD, status post tracheostomy tube insertion for failure to wean off the mechanical ventilator. The patient is currently on 28% trach collar. Chronic hypoxemic respiratory failure, remains on 28% trach collar Chronic dyspnea secondary to above Multiple spine surgeries including - T8 fracture. The patient was discharged from the hospital following surgery on 10/27/2024 for open treatment of a T8 fracture, irrigation and excisional debridement of thoracic spine wound measuring 10 x 7 x 4 cm, posterior lateral instrumented fusion of T7-T11 and cement augmentation of T8-T10 vertebral bodies. - T2 vertebral fracture with revision of C2-T7 posterior lateral fusion on 09/09/2024 - C3-7 ACDF for severe spondylosis, deformity and stenosis in addition to bilateral laminectomy and partial medial facetectomy and foraminotomy and his initial surgery was done on 07/15/2023 Surgical site infection and wound dehiscence, wound and blood cultures revealed no growth Acute leukocytosis, improved Macrocytic anemia Rectal prolapse with bleeding History of hypertension History of hyperlipidemia History of coronary artery disease History of heart failure with preserved ejection fraction History of gastroesophageal reflux disease History of seizure disorder History of hypothyroidism History of anxiety/depression/PTSD Plan Patient is stable on 28% trach collar Continue DuoNeb inhalations Continue a prednisone currently on 10 mg dose maintenance Continue DuoNeb updrafts Continue Pulmicort and Perforomist inhalations Broad-spectrum antibiotic coverage with a combination of cefepime vancomycin and Diflucan Lovenox for DVT prophylaxis [facility] for nutritional support Patient is to undergo excisional debridement and irrigation by spine surgery of the dehisced thoracolumbar wound. Obtain a baseline chest x-ray Will continue to follow Resume home medications
--- NOTE | 2024-12-06 03:55 | P.PN ---
Subjective Date of service for this note is 12/05/2024 This is a pleasant 54 years old female with past medical history of multiple me dical problems. Including recent hospitalization to this facility about a month ago for similar problem of infected surgical site at the back. Patient was sent from her [facility] for open surgical wound in the middle of her back. Patient was in this facility about a month ago for similar problem. Also she is a known case of tracheostomy she says she is on 4 L oxygen via trach collar. She denies chest pain. No significant dyspnea but she is on exam she still have some wheezing. She required 5 L slightly more of oxygen than her baseline She has pain in the middle of the back where she has open wound with no surrounding cellulitis Also she is s/p tube but no abdominal pain or tenderness. No urinary complaint. No headache dizziness. She is generally weak She denies smoking alcohol or illicit drugs. 12/05 Patient also on seizure medication brivaracetam which is not formulary in this hospital and it is switched to Keppra 500 mg twice daily. Also on gabapentin and Topamax. Patient was still complaining from back pain. Patient underwent excisional debridement of the thoracolumbar infected surgical wound. She was mildly tachypneic requiring 5 to 6 L of oxygen more than baseline of 4 L/min. Via trach collar Currently patient is still covered with antibiotic IV vancomycin and IV cefepime pending culture results Active Medications Generic Name Dose Route Start Last Admin Trade Name Freq PRN Reason Stop Dose Admin Acetaminophen 500 mg 12/04/24 16:52 12/04/24 20:33 Acetaminophen Tab 500 Mg Tab PEG/G-TUBE 500 mg Q6HR PRN Administration Pain Hydrocodone Bitart/Acetaminophen 1 each 12/04/24 16:52 12/06/24 02:36 Hydrocodone/Apap 5-325mg 1 Each Tab PEG/G-TUBE 1 each Q6HR PRN Administration discomfort Albuterol/Ipratropium 3 ml 12/04/24 16:52 12/05/24 13:24 Ipratropium-Albuterol 3 Ml Neb INHALATION 3 ml RT-Q2H PRN Administration Shortness Of Breath Albuterol/Ipratropium 3 ml 12/04/24 20:00 12/05/24 21:02 Ipratropium-Albuterol 3 Ml Neb INHALATION 3 ml RT-QID VVII Administration Asenapine 10 mg 12/04/24 21:00 12/05/24 21:30 Asenapine 5 Mg Tab SUBLINGUAL 10 mg BID VIVI Administration Budesonide 0.5 mg 12/04/24 16:52 12/05/24 21:02 Budesonide 0.5 Mg/2 Ml Nebu INHALATION 0.5 mg RT-Q12H PRN Administration Shortness Of Breath Buspirone HCl 15 mg 12/04/24 17:00 12/05/24 21:31 Buspirone Hcl 10 Mg Tab PEG/G-TUBE 15 mg TID VIVI Administration Cholecalciferol 50 mcg 12/04/24 17:00 12/05/24 09:30 Cholecalciferol 25 Mcg (1000 Iu) Tablet PEG/G-TUBE 50 mcg DAILY VIVI Administration Enoxaparin Sodium 40 mg 12/04/24 17:00 12/05/24 09:34 Enoxaparin 40 Mg/0.4 Ml Syringe SQ Not Given DAILY VIVI Fluconazole 100 mg 12/04/24 17:00 12/05/24 09:31 Fluconazole 100 Mg Tab PEG/G-TUBE 12/12/24 23:00 100 mg DAILY VIVI Administration Protocol Fluticasone Propionate 1 spray 12/04/24 17:00 12/05/24 09:42 Fluticasone Nasal 50mcg/[place] 16gm Btl EA NOSTRIL Not Given DAILY VIVI Folic Acid 0.5 mg 12/04/24 17:00 12/05/24 09:31 Folic Acid 1 Mg Tab PEG/G-TUBE 0.5 mg DAILY VIVI Administration Formoterol Fumarate 20 mcg 12/04/24 20:00 12/05/24 21:02 Formoterol Fumarate 20 Mcg/2 Ml Nebu INHALATION 20 mcg RT-BID VIVI Administration Furosemide 20 mg 12/05/24 09:00 12/05/24 09:32 Furosemide 20 Mg Tab PEG/G-TUBE 20 mg DAILY VIVI Administration Gabapentin 100 mg 12/04/24 17:00 12/05/24 21:29 Gabapentin 100 Mg Cap PEG/G-TUBE 100 mg TID VIVI Administration Cefepime HCl 2 gm/ Sodium 100 mls @ 25 mls/hr 12/04/24 16:00 12/06/24 00:53 Chloride IVPB 25 mls/hr Q8HR VIVI Administration Protocol Vancomycin HCl 1,000 mg/ 250 mls @ 125 mls/hr 12/05/24 02:00 12/06/24 02:35 Sodium Chloride IVPB 125 mls/hr Q12H VIVI Administration Levetiracetam 500 mg 12/06/24 09:00 Levetiracetam 500 Mg Tab PO Q12HR VIVI Levothyroxine Sodium 88 mcg 12/05/24 06:30 12/05/24 06:45 Levothyroxine 88 Mcg Tab PEG/G-TUBE 88 mcg DAILY@0630 VIVI Administration Loperamide HCl 2 mg 12/04/24 16:52 Loperamide 2 Mg Cap PEG/G-TUBE Q6H PRN Diarrhea Loratadine 10 mg 12/04/24 17:00 12/05/24 09:32 Loratadine 10 Mg Tab PEG/G-TUBE 10 mg DAILY VIVI Administration Lorazepam 1 mg 12/05/24 12:34 Lorazepam 1 Mg/0.5 Ml Vial IV Q4HR PRN Seizures Magnesium Hydroxide 2,400 mg 12/04/24 16:52 Magnesium Hydroxide 2,400 Mg/30 Ml Cup PEG/G-TUBE DAILY PRN Constipation Miscellaneous Information 0 each 12/06/24 13:00 Vancomycin Trough Due 1 Each Misc MISCELLANE 12/06/24 13:01 DIRECTED ONE Montelukast Sodium 10 mg 12/04/24 21:00 12/05/24 21:30 Montelukast 10 Mg Tab PEG/G-TUBE 10 mg HS VIVI Administration Multivitamins 1 each 12/05/24 09:00 12/05/24 09:32 Multivitamins, Thera 1 Each Tab PEG/G-TUBE 1 each DAILY VIVI Administration Naloxone HCl 0.2 mg 12/04/24 13:09 Naloxone 0.4 Mg/Ml 1 Ml Vial IV Q2M PRN Opioid Reversal Non-Formulary Medication 100 mg 12/04/24 21:00 12/05/24 21:36 Brivaracetam [Briviact] PEG/G-TUBE Not Given BID VIVI Pantoprazole Sodium 40 mg 12/04/24 17:30 12/05/24 16:22 Pantoprazole 40 Mg Tablet PO 40 mg AC-BID VIVI Administration Prazosin HCl 2 mg 12/04/24 21:00 12/05/24 21:30 Prazosin 1 Mg Cap PEG/G-TUBE 2 mg BID VIVI Administration Prednisone 10 mg 12/05/24 09:00 12/05/24 09:30 Prednisone 10 Mg Tab PEG/G-TUBE 12/07/24 12:00 10 mg DAILY VIVI Administration Propranolol HCl 20 mg 12/04/24 21:00 12/05/24 21:30 Propranolol 20 Mg Tab PEG/G-TUBE 20 mg BID VIVI Administration Ropinirole HCl 2 mg 12/04/24 21:00 12/05/24 21:30 Ropinirole Hcl 1 Mg Tab PEG/G-TUBE 2 mg BID VIVI Administration Sertraline HCl 200 mg 12/04/24 17:00 12/05/24 09:31 Sertraline 100 Mg Tab PEG/G-TUBE 200 mg DAILY VIVI Administration Tamsulosin HCl 0.4 mg 12/04/24 17:00 12/05/24 09:32 Tamsulosin 0.4 Mg Cap.Er.24h PO 0.4 mg DAILY VIVI Administration Topiramate 50 mg 12/04/24 21:00 12/05/24 21:31 Topiramate 100 Mg Tab PEG/G-TUBE 50 mg BID VIVI Administration Objective - Vital Signs Vital signs: Vital Signs Temp 97.9 F 12/06/24 02:00 Pulse 81 12/06/24 02:00 Resp 18 12/05/24 17:20 BP 102/66 12/06/24 02:00 Pulse Ox 96 12/06/24 02:00 FiO2 28 12/06/24 00:02 Intake & Output 12/05/24 12/05/24 12/06/24 06:59 18:59 06:59 Intake Total 1202 237 Output Total 770 400 Balance 432 -163 Weight 54.431 kg Intake: IV 1202 Oral 237 Output: Urine 750 400 Uretheral (Howell) 500 Estimated Blood Loss 20 Other: Voiding Method External Catheter Incontinent Indwelling Catheter # Voids 1 5 - Exam GENERAL: The patient is alert and oriented x3, not in any acute distress. Well developed, well nourished. Thin built HEENT: Pupils are round and equally reacting to light. EOMI. No scleral icterus. No conjunctival pallor. Normocephalic, atraumatic. No pharyngeal erythema. No thyromegaly. CARDIOVASCULAR: S1 and S2 present. No murmurs, rubs, or gallops. -PULMONARY: Chest is clear to auscultation, no wheezing , no crackles. Status post tracheostomy on trach collar ABDOMEN: Soft, nontender, nondistended, normoactive bowel sounds. No palpable organomegaly. -MUSCULOSKELETAL: No joint swelling or deformity. Deep open wound, central, vertical in the middle of her back with no significant purulent discharge or surrounding cellulitis EXTREMITIES: No cyanosis, clubbing, or pedal edema. NEUROLOGICAL: Gross neurological examination did not reveal any focal deficits. SKIN: No rashes. no petechiae. - Labs CBC & Chem 7: 12/05/24 03:29 12/05/24 03:29 Labs: Abnormal Lab Results - Last 24 Hours (Table) 12/04/24 12/05/24 12/05/24 Range/Units 14:17 03: 03:29 RBC 2.48 L (4.10-5.20) X 10*6/uL Hgb 7.5 L (12.0-15.0) g/dL Hct 24.6 L (37.2-46.3) % MCV 99.2 H (80.0-97.0) FL MCHC 30.5 L (32.0-37.0) g/dL RDW 18.6 H (11.5-14.5) % ESR 37 H (0-30) mm/Hr Potassium 3.4 L (3.5-5.5) mmol/L Carbon Dioxide 21.2 L (21.6-31.8) mmol/L BUN/Creatinine Ratio 23.33 H (12.00-20.00) Ratio Calcium 8.4 L (8.7-10.3) mg/dL Assessment and Plan Assessment: Surgical wound dehiscence of the thoracic spine wound, status post debridement prior to discharge last month. S/p surgical excisional debridement and irrigation on 12/05/2024 status post tracheostomy on trach collar and PEG tube placement Acute on chronic hypoxic respiratory failure Mild acute COPD exacerbation Seizure disorder CHF Chronic hypoxic hypercapnic respiratory failure Hypertension Hyperlipidemia Hypothyroidism Seizure disorder History of DVT Chronic anemia Rectal prolapse Depression and PTSD Plan: Patient's status post excisional debridement of the thoracic spine infected wound. Follow-up wound culture Continue with antibiotic, currently on IV vancomycin and IV cefepime Infectious disease consult Continue with oxygen therapy Continue with bronchodilator as needed Protonix Patient on multiple seizure medication, Keppra (brivaracetam is nonformulary) and gabapentin and Topamax Continue with prednisone 10 mg daily Labs and medication were reviewed.. Continue same treatment. Continue with symptomatic treatment. Resume home medication. Monitor labs and vitals. DVT a nd GI prophylaxis. Further recommendations as per clinical course of the patient DVT prophylaxis: Subcutaneous Lovenox GI Prophylaxis: Pepcid
[2024-12-06] MEDS: levETIRAcetam 500 MG TAB PO SCH (08:34)
[2024-12-06 11:46] LABS: Anisocytosis Slight; Basophils % (A) 0 %; Eosinophils # (A) 0.1 k/uL (0-0.7); Eosinophils % (A) 2 %; HCT 28.6 % (34.0-46.0); HGB 8.8 gm/dL (11.4-16.0); Hypochromasia Marked; Lymphocytes # (A) 0.6 k/uL (1.0-4.8); Lymphocytes % (A) 8 %; MCH 29.9 pg (25.0-35.0); MCHC 30.6 g/dL (31.0-37.0); MCV 97.9 fL (80.0-100.0); Macrocytosis Slight; Mean Platelet Volume 7.7; Monocytes # (A) 0.2 k/uL (0-1.0); Monocytes % (A) 3 %; Neutrophils # (A) 6.4 k/uL (1.3-7.7); Neutrophils % (A) 86 %; Platelet Count 340 k/uL (150-450); RBC 2.93 m/uL (3.80-5.40); RDW 17.9 % (11.5-15.5); WBC 7.4 k/uL (3.8-10.6)
[2024-12-06 11:57] LABS: ALT 36 U/L (4-34); AST 22 U/L (14-36); African American GFR (CKD) 69 (>60 ml/min/1.73 sqM); Albumin 3.5 g/dL (3.5-5.0); Albumin/Globulin Ratio 1.2; Alkaline Phosphatase 67 U/L (38-126); Anion Gap 12 mmol/L; Blood Urea Nitrogen 18 mg/dL (7-17); Calcium 8.7 mg/dL (8.4-10.2); Carbon Dioxide 23 mmol/L (22-30); Chloride 102 mmol/L (98-107); Glucose 150 mg/dL (74-99); Non-African American GFR(CKD) 60 (>60 ml/min/1.73 sqM); Sodium 137 mmol/L (137-145); Total Bilirubin 0.3 mg/dL (0.2-1.3); Total Protein 6.5 g/dL (6.3-8.2)
--- NOTE | 2024-12-06 13:06 | P.PN ---
Subjective Progress Note Date: 12/06/24 Principal diagnosis: Status post irrigation and debridement thoracolumbar wound Patient evaluated today at bedside, she is resting in her hospital bed having lunch, her significant other is also present. Patient is having mild discomfort to the thoracolumbar region near the incision. She also complains of some sacral discomfort. It was noted at surgery she had a very early sacral decubitus ulcer beginning in that region, a bandage was placed. surgical dressing remains intact at this time. She denies any headaches, headedness, chest pain or shortness of breath Objective - Vital Signs Vital signs: Vital Signs Temp 97.2 F L 12/06/24 06:54 Pulse 74 12/06/24 12:34 Resp 18 12/06/24 06:54 BP 111/60 12/06/24 06:54 Pulse Ox 96 12/06/24 08:40 FiO2 28 12/06/24 08:40 Intake & Output 12/05/24 12/06/24 12/06/24 18:59 06:59 18:59 Intake Total 1202 237 Output Total 770 800 Balance 432 -563 Weight 54.431 kg 49.5 kg Intake: IV 1202 Oral 237 Output: Urine 750 800 Uretheral (Howell) 500 Estimated Blood Loss 20 Other: Voiding Method Incontinent Indwelling Catheter # Voids 5 - Exam Postoperative dressing is in good position and condition, no surrounding erythema or soft tissue swelling noted. The Optifoam dressing is in place over the sacral wound. Patient has minimal tenderness with palpation of the thoracolumbar spine. Range of motion is intact in all majormuscle groups of the bilateral upper and lower extremities, no focal deficits appreciated. 4/5 strength appreciated in the bilateral upper and lower extremities in all major muscle groups. Calves are soft, no tenderness with palpation. Sensory exam to light touch throughout the bilateral upper and lower extremities are intact. Radial and ulnar pulses are 2+ bilaterally, dorsalis pedis pulses are 2+ b ilaterally. - Labs CBC & Chem 7: 12/06/24 11:22 12/06/24 11:22 Labs: Abnormal Lab Results - Last 24 Hours (Table) 12/06/24 12/06/24 Range/Units 11:22 11:22 RBC 2.93 L (3.80-5.40) m/uL Hgb 8.8 L (11.4-16.0) gm/dL Hct 28.6 L (34.0-46.0) % MCHC 30.6 L (31.0-37.0) g/dL RDW 17.9 H (11.5-15.5) % Lymphocytes # 0.6 L (1.0-4.8) k/uL Potassium 3.0 L (3.5-5.1) mmol/L BUN 18 H (7-17) mg/dL Creatinine 1.07 H (0.52-1.04) mg/dL Glucose 150 H (74-99) mg/dL ALT 36 H (4-34) U/L Microbiology - Last 24 Hours (Table) 12/04/24 14:17 Blood Culture - Preliminary Blood Assessment and Plan Assessment: Postoperative day #1 status post irrigation and debridement with closure of thoracolumbar wound Thoracolumbar wound dehiscence Multiple medical comorbidities Plan: Pain control, continue current medications GI and DVT prophylaxis, continue current medication Monitor surgical dressing, leave in place at this time. Will change the next 24-48 hours Low concern for infection at time of surgery, await culture and sensitivity results Weight-bear as tolerated with walker PT/OT recommendations Other medical specialty recommendations appreciated Discharge planning: Anticipate discharge to inpatient versus subacute rehab Time with Patient: Less than 30
--- NOTE | 2024-12-06 13:51 | P.CONS ---
History of Present Illness - Reason for Consult Consult date: 12/06/24 rehab recommendations - Chief Complaint debility s/p I & D of thorcacolumbar surgical site - History of Present Illness Ms. Rosario Weinstein is a 54-year-old engaged right handed female who lives with her significant other in a single-story apartment (house broke up into apartments) with 4 steps to enter. Prior to her recent surgery she was able to ambulate with a cane, independent with ADLs. Her fianc did the driving, he is able to assist as needed. Significant other is home 30/03, also other friends available. She currently receives services through [facility] and does have a public guardian. Patient was admitted to the hospital from [facility]. Patient initially presented there from [facility] subacute rehab. Patient was thereafter a recent thoracolumbar discectomy and fusion with Dr. Mchugh. Patient also has a recent history of OD 2/2 polysubstance abuse resulting in ventilator dependent respiratory failure requiring tracheostomy and PEG tube. Per records sutures were removed at the subacute rehab without clearance from the surgeon. Patient ended up with surgical wound dehiscence which required washout and closure. Imaging revealed a small foci of air in the soft tissues at T 1, 12, L1. On December 05, 2024 patient went for thoracolumbar wound incision and drainage with washout with Dr. Mchugh. Intraoperative cultures were taken, pending results. She is currently on fluconazole, cefepime, Vanco. PM&R was consulted for rehabilitation recommendations. Patient was seen by therapies, mod assist for bathing and lower body dressing, min assist for upper body dressing, grooming, ambulation for 6 feet. Of note patient was only at subacute rehab for approximately 2 days before returning to the hospital. 12/06/24: Patient states she is doing okay, is quite sore from the procedure yesterday. She denies current chest pain and abdominal pain. She denies issues with bowel and bladder, had a recent bowel movement. She has been having a lot of phlegm from her trach, but has been able to clear it. She spoke with pulmonology and they do not want her to be decannulated yet at this time as she has had multiple transfers to and from facilities. She is on 5 L trach collar. She has been tolerating an oral diet. She reports numbness in her bilateral hands from her elbows to her fingertips, also reports hand weakness. She reports that has numbness and tingling in her legs from mid thigh down to her toes, legs feel weak. Review of Systems reviewed, as above in subjective Past Medical History Past Medical History: Asthma, Heart Failure, COPD, Deep Vein Thrombosis (DVT), Eye Disorder, Fibromyalgia, GERD/Reflux, Hyperlipidemia, Hypertension, Memory Impairment, Myocardial Infarction ([place]), Osteoarthritis (OA), Pneumonia, Seizure Disorder, Skin Disorder, Syncope, Thyroid Disorder Additional Past Medical History / Comment(s): IBS, colitis, restless legs flexed syndrome, daily migraines, Vitamin D deficiency, benign left breast mass, gastritis, short term memory loss. Vision - "sees an orange aura." BILAT CATARACTS Last seizure 09/22/2024, PT STATES THAT DR. VILLALBA IS AWARE"Legs are weak and balance is off." checked bone marrow for cancer. Pt has pressure ulcer over lower incision from surgery on 09/09/2024. States she had a blood clot in leg but not sure which leg or when Last Myocardial Infarction Date:: 2009 History of Any Multi-Drug Resistant Organisms: None Reported Past Surgical History: Back Surgery, Hysterectomy, Orthopedic Surgery Additional Past Surgical History / Comment(s): D&C, bilateral knee arthroscopy. Past Anesthesia/Blood Transfusion Reactions: No Reported Reaction Additional Past Anesthesia/Blood Transfusion Reaction / Comm: severe anxiety coming out of anesthesia,no hx blood transfusion Past Psychological History: Anxiety, Bipolar, Depression, PTSD Smoking Status: Current every day smoker Past Alcohol Use History: None Reported Past Drug Use History: Marijuana - Past Family History Father Family Medical History: Cancer Additional Family Medical History / Comment(s): Father of pancreatic cancer at the age of 62yrs. and lung cancer Mother Family Medical History: Congestive Heart Failure (CHF) Additional Family Medical History / Comment(s): Mother of CHF at the age of 60yrs. Brother(s) Additional Family Medical History / Comment(s): Patient had 1 brother that at 5 months of age. Sister(s) Family Medical History: Deep Vein Thrombosis (DVT) Additional Family Medical History / Comment(s): Patient has one sister with h istory of depression and bipolar. Patient has 2 half-sisters and one at age 26 from overdose. Patient does not have any children. Medications and Allergies Home Medications Medication Instructions Recorded Confirmed Type Asenapine Maleate [Saphris] 10 mg SUBLINGUAL BID 04/30/17 12/04/24 History Pantoprazole Sodium [Protonix] 40 mg PEG/G-TUBE BID 01/07/19 12/04/24 History Topiramate [Trokendi Xr] 100 mg PEG/G-TUBE DAILY 04/15/21 12/04/24 History Albuterol Sulfate [Proair Hfa] 2 puff INHALATION RT-Q6H PRN 05/10/21 12/04/24 History Prazosin HCl [Minipress] 2 mg PEG/G-TUBE BID 05/10/21 12/04/24 History rOPINIRole HCL [Requip] 2 mg PEG/G-TUBE BID 05/10/21 12/04/24 History Fluticasone/Umeclidin/Vilanter 1 puff INHALATION RT-DAILY 12/10/22 12/04/24 History [Trelegy Ellipta 100-62.5-25] Brivaracetam [Briviact] 100 mg PEG/G-TUBE BID 07/10/23 12/04/24 History Budesonide [Pulmicort] 0.5 mg INHALATION RT-Q12H PRN 07/27/23 12/04/24 History Cetirizine HCl [Zyrtec] 10 mg PEG/G-TUBE DAILY 07/27/23 12/04/24 History Fluticasone Nasal [place] [Flonase 1 spr EA NOSTRIL DAILY 07/27/23 12/04/24 History Nasal [place]] Levothyroxine Sodium [Synthroid] 88 mcg PEG/G-TUBE DAILY 07/27/23 12/04/24 History Propranolol [Inderal] 20 mg PEG/G-TUBE BID 07/27/23 12/04/24 History Acetaminophen Tab [Tylenol] 500 mg PEG/G-TUBE Q6HR PRN 10/25/24 12/04/24 History Cholecalciferol (Vitamin D3) 50 mcg PEG/G-TUBE DAILY 10/25/24 12/04/24 History [Vitamin D3 (50 Mcg = 2000 Iu)] Montelukast [Singulair] 10 mg PEG/G-TUBE HS 10/25/24 12/04/24 History busPIRone HCL 15 mg PEG/G-TUBE TID 10/25/24 12/04/24 History Enoxaparin [Lovenox] 40 mg SQ DAILY each 12/01/24 12/04/24 Rx Formoterol Fumarate [Perforomist] 20 mcg INHALATION RT-BID ml 12/01/24 12/04/24 Rx Ipratropium-Albuterol Nebulize 3 ml INHALATION RT-QID each 12/01/24 12/04/24 Rx [Duoneb 0.5 mg-3 mg/3 ml Soln] Fluconazole [Diflucan] 100 mg PEG/G-TUBE DAILY 12/04/24 12/04/24 History Folic Acid 0.4 mg PEG/G-TUBE DAILY 12/04/24 12/04/24 History Furosemide [Lasix] 20 mg PEG/G-TUBE DAILY 12/04/24 12/04/24 History Gabapentin [Neurontin] 100 mg PEG/G-TUBE TID 12/04/24 12/04/24 History HYDROcodone/APAP 5-325MG [[place] 1 tab PEG/G-TUBE Q6HR PRN 12/04/24 12/04/24 History 5-325] Ipratropium-Albuterol Nebulize 3 ml INHALATION RT-Q2H PRN 12/04/24 12/04/24 History [Duoneb 0.5 mg-3 mg/3 ml Soln] Loperamide [Imodium] 2 mg PEG/G-TUBE Q6H PRN 12/04/24 12/04/24 History Magnesium Hydroxide [Milk of 7,200 mg PEG/G-TUBE DAILY PRN 12/04/24 12/04/24 History Magnesia Concentrate] Multivitamins, Thera [Multivitamin 1 tab PEG/G-TUBE DAILY 12/04/24 12/04/24 History (formulary)] Sertraline HCl 200 mg PEG/G-TUBE DAILY 12/04/24 12/04/24 History Tamsulosin HCl [Flomax] 0.4 mg PEG/G-TUBE DAILY 12/04/24 12/04/24 History predniSONE [Deltasone] See Taper PEG/G-TUBE DAILY 12/04/24 12/04/24 History Allergies Allergy/AdvReac Type Severity Reaction Status Date / Time bee venom protein (honey bee) Allergy Anaphylaxis Verified 12/04/24 14:41 Physical Exam Vitals: Vital Signs Temp Pulse Pulse Pulse Resp BP BP 12/06/24 12:34 74 12/06/24 12:24 72 12/06/24 09:14 86 12/06/24 09:00 82 12/06/24 08:59 82 12/06/24 08:40 12/06/24 08:37 80 12/06/24 06:54 97.2 F L 81 18 111/60 12/06/24 02:00 97.9 F 81 102/66 12/06/24 00:02 12/05/24 21:23 82 12/05/24 21:13 80 12/05/24 21:12 80 12/05/24 21:02 80 12/05/24 20:00 98.1 F 82 106/68 12/05/24 17:38 76 12/05/24 17:26 72 12/05/24 17:20 94 18 118/70 12/05/24 17:05 91 18 125/72 12/05/24 16:50 81 126/68 12/05/24 16:35 97.6 F 80 128/73 12/05/24 16:20 74 133/77 12/05/24 15:56 73 16 120/60 12/05/24 15:41 73 16 120/63 12/05/24 15:26 97.2 F L 77 16 126/77 12/05/24 13:08 97.3 F L 86 17 150/82 Pulse Ox FiO2 12/06/24 12:34 12/06/24 12:24 12/06/24 09:14 12/06/24 09:00 12/06/24 08:59 12/06/24 08:40 96 28 12/06/24 08:37 12/06/24 06:54 95 12/06/24 02:00 96 12/06/24 00:02 28 12/05/24 21:23 12/05/24 21:13 12/05/24 21:12 12/05/24 21:02 12/05/24 20:00 96 12/05/24 17:38 12/05/24 17:26 12/05/24 17:20 98 12/05/24 17:05 96 12/05/24 16:50 95 12/05/24 16:35 95 12/05/24 16:20 98 12/05/24 15:56 100 12/05/24 15:41 100 12/05/24 15:26 94 L 12/05/24 13:08 95 Intake and Output 12/05/24 12/06/24 12/06/24 22:59 06:59 14:59 Intake Total 437 Output Total 1170 400 Balance -733 -400 Intake: IV 200 Oral 237 Output: Urine 1150 400 Uretheral (Howell) 500 Estimated Blood Loss 20 Other: Voiding Method Indwelling Catheter Weight 49.5 kg General: [Well-developed, thin female, laying in bed, no acute distress, significant other at bedside] HEENT: [NC/AT, external ears intact, hearing intact to conversational speech, glasses, trach in place with trach mask] Cardiovascular: [B/L calves are supple, nontender, no cords, without peripheral edema, no cardiac distress] Respiratory: [Even and unlabored breathing on 5 L O2 via trach mask] Abdomen: [Soft, nontender, nondistended; PEG tube] Genitourinary: [No suprapubic tenderness] Musculoskeletal: [Generalized weakness, lower extremity greater than upper extremity] MMT UE Sh Abd EE EF FABD WE HG Right [4] [4-] [4] [4] [] [4] Left [4] [4-] [4] [4] [] [4] MMT LE HF KE DF EHL Right [3] [3] [4] [4] Left [3] [3] [4] [4] Skin: [tracheostomy, peg tube, surgical back incision not visualized, dressed Neurological: [Alert and oriented] x [4]. CN II-XII: [Grossly intact. Speech is clear, fluent] Reflexes Biceps Triceps Brachioradialis Patella Achilles Babinski Hoffmans Right [1] [] [1] [0] [0] [] [] Left [1] [] [1] [0] [0] [] [] Sensation: [Decreased sensation to light touch bilateral arms from mid forearm to fingertips, decrease sensation to mid thigh to toes] Psychiatric: [Mood calm, affect appropriate, cooperative.] Results CBC & Chem 7: 12/06/24 11:22 12/06/24 11:22 Labs: Abnormal Lab Results - Last 24 Hours (Table) 12/06/24 12/06/24 Range/Units 11:22 11:22 RBC 2.93 L (3.80-5.40) m/uL Hgb 8.8 L (11.4-16.0) gm/dL Hct 28.6 L (34.0-46.0) % MCHC 30.6 L (31.0-37.0) g/dL RDW 17.9 H (11.5-15.5) % Lymphocytes # 0.6 L (1.0-4.8) k/uL Potassium 3.0 L (3.5-5.1) mmol/L BUN 18 H (7-17) mg/dL Creatinine 1.07 H (0.52-1.04) mg/dL Glucose 150 H (74-99) mg/dL ALT 36 H (4-34) U/L Microbiology - Last 24 Hours (Table) 12/04/24 14:17 Blood Culture - Preliminary Blood Assessment and Plan Assessment: #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 s/p (10/27/2024) open treatment of a T8 fracture, irrigation and excisional debridement of thoracic spine wound measuring 10 x 7 x 4 cm, posterior lateral instrumented fusion of T7-T11 and cement augmentation of T8-T10 vertebral bodies -Orthospine following #Debility secondary to Surgical wound dehiscence of the recent thoracolumbar spine S/p surgical excisional debridement and irrigation on 12/05/2024 -Vanco, Fluconazole, and Cefepime per NOV -pending surgical culture results -therapies # History of recent tracheostomy on trach collar and PEG tube placement -12/06 patient on 5L trach mask #Acute on chronic hypoxic respiratory failure #Recent history of VDRF 2/ polysubstance abuse and OD #Mild acute COPD exacerbation #Seizure disorder #Comorbidities: CHF, Hypertension, Hyperlipidemia, Hypothyroidism, History of DVT, Chronic anemia, Rectal prolapse, Depression and PTSD # Pain Management -Gabapentin 100 mg TID, Tylenol prn, [place] 5/325 mg Q 6 hrs prn, Requip -prednisone # Your medical dx and management Dispo: Patient is performing below her baseline level of function. She was recently at [facility] in [place] for a very brief time (2 days). Recommending inp atient rehab given her complex case, her ability to tolerate 3 hours of therapy a day, and her motivation to return home with support. Patient will need insurance authorization. Patient seen and examined in coordination with Dr Liliya Parrish. Thank you for consulting our services.
[2024-12-06] MEDS: VANCOMYCIN TROUGH DUE 1 EACH MISC MISCELLANE ONE (13:59)
[2024-12-06 14:08] LABS: African American GFR (CKD) 83 (>60 ml/min/1.73 sqM); Non-African American GFR(CKD) 72 (>60 ml/min/1.73 sqM)
--- NOTE | 2024-12-06 15:22 | P.PN ---
Subjective Progress Note Date: 12/05/24 Principal diagnosis: Reason for follow-up is thoracic spine incision dehiscence Patient is a 54-year-old female with a past medical history significant for Asthma, Heart Failure, COPD, Deep Vein Thrombosis (DVT), Eye Disorder, Fibromyalgia, GERD/Reflux, Hyperlipidemia, Hypertension, Memory Impairment, Myocardial Infarction ([place]), Osteoarthritis (OA), Pneumonia, Seizure Disorder, Skin Disorder, Syncope, Thyroid Disorder, multiple surgeries on the thoracic spine with readmission to the hospital concerning for wound dehiscence. On today's evaluation that is 12/05/2024, patient has been afebrile, patient is breathing comfortably and is currently on room air, patient denies having any significant cough no chest pain, patient denies nausea vomiting or diarrhea and no abdominal pain. Patient white count 7.86 creatinine 0.6 ESR is 37 Objective - Vital Signs Vital signs: Vital Signs Temp 97.3 F L 12/05/24 13:08 Pulse 86 12/05/24 13:08 Resp 17 12/05/24 13:08 BP 150/82 12/05/24 13:08 Pulse Ox 95 12/05/24 13:08 FiO2 28 12/05/24 09:57 Intake & Output 12/04/24 12/05/24 12/05/24 18:59 06:59 18:59 Intake Total 350 200 Balance 350 200 Weight 54.431 kg 54.431 kg Intake: IV 200 Intake, IV Titration 350 Amount Cefepime 2 gm In Sodium 100 Chloride 0.9% 100 ml @ 25 mls/hr IVPB Q8HR [facility] Rx# :[id number] Vancomycin 1,000 mg In 250 Sodium Chloride 0.9% 250 ml @ 125 mls/hr IVPB Q12H [facility] Rx#:[id number] Other: Voiding Method External Catheter Incontinent # Voids 1 5 - Exam GENERAL DESCRIPTION: Middle-age female lying in bed in no distress RESPIRATORY SYSTEM: Unlabored breathing , clear auscultation anteriorly HEART: S1 S2 regular rate and rhythm , ABDOMEN: Soft , no tenderness EXTREMITIES: No edema feet - Labs CBC & Chem 7: 12/06/24 11:22 12/06/24 13:06 Labs: Abnormal Lab Results - Last 24 Hours (Table) 12/04/24 12/05/24 12/05/24 Range/Units 14:17 03:29 03:29 RBC 2.48 L (4.10-5.20) X 10*6/uL Hgb 7.5 L (12.0-15.0) g/dL Hct 24.6 L (37.2-46.3) % MCV 99.2 H (80.0-97.0) FL MCHC 30.5 L (32.0-37.0) g/dL RDW 18.6 H (11.5-14.5) % ESR 37 H (0-30) mm/Hr Potassium 3.4 L (3.5-5.5) mmol/L Carbon Dioxide 21.2 L (21.6-31.8) mmol/L BUN/Creatinine Ratio 23.33 H (12.00-20.00) Ratio Calcium 8.4 L (8.7-10.3) mg/dL Assessment and Plan (1) Postoperative wound dehiscence Current Visit: Yes Status: Acute Code(s): T81.31XA - DISRUPTION OF EXTERNAL OPERATION (SURGICAL) WOUND, NEC, INIT SNOMED Code(s): 284759503 Plan: 1patient with a complicated history of multiple surgery to the thoracic spine recently subsequently did have a admission to the hospital with acute respiratory failure and Pseudomonas pneumonia now being presented to the hospital with a wound dehiscence to the mid thoracic spine which seem to be deep, underlying infection not entirely excluded keeping in mind the patient has been in and out of the hospital will need to cover for resistant gram-positive's and gram-negative pathogen 2blood culture has been obtained ESR mildly elevated at 37 3patient to continue vancomycin pharmacy to dose and cefepime for gram-negative coverage while waiting for the culture to finalize, surgery scheduled for this afternoon Dictation was produced using [employer] dictation software. please excuse any grammatical, word or spelling errors. Time with Patient: Less than 30
--- NOTE | 2024-12-06 15:23 | P.PN ---
Subjective Progress Note Date: 12/06/24 Principal diagnosis: Reason for follow-up is thoracic spine incision dehiscence Patient is a 54-year-old female with a past medical history significant for Asthma, Heart Failure, COPD, Deep Vein Thrombosis (DVT), Eye Disorder, Fibromyalgia, GERD/Reflux, Hyperlipidemia, Hypertension, Memory Impairment, Myocardial Infarction ([place]), Osteoarthritis (OA), Pneumonia, Seizure Disorder, Skin Disorder, Syncope, Thyroid Disorder, multiple surgeries on the thoracic spine with readmission to the hospital concerning for wound dehiscence.Patient is status post irrigation and excisional requirement of the thoracolumbar spine wound, with removal of the skin soft tissue and subcu muscle as well as cultures obtained on 12/05/2024 On today's evaluation that is 12/06/2024, Patient is afebrile this morning patient is sleepy but arousable she is breathing comfortably on trach collar no chest pain no cough no abdominal pain or any worsening pain to the thoracic spine. Patient did have a white count of 7.4, creatinine 1.07 Vanco trough elevated at 23.1 Objective - Vital Signs Vital signs: Vital Signs Temp 98.1 F 12/06/24 14:29 Pulse 80 12/06/24 14:29 Resp 18 12/06/24 14:29 BP 107/63 12/06/24 14:29 Pulse Ox 98 12/06/24 14:29 FiO2 28 12/06/24 08:40 Intake & Output 12/05/24 12/06/24 12/06/24 18:59 06:59 18:59 Intake Total 1202 237 Output Total 770 800 Balance 432 -563 Weight 54.431 kg 49.5 kg Intake: IV 1202 Oral 237 Output: Urine 750 800 Uretheral (Howell) 500 Estimated Blood Loss 20 Other: Voiding Method Incontinent Indwelling Catheter # Voids 5 - Exam GENERAL DESCRIPTION: Middle-age female lying in bed in no distress RESPIRATORY SYSTEM: Unlabored breathing , clear auscultation anteriorly HEART: S1 S2 regular rate and rhythm , ABDOMEN: Soft , no tenderness EXTREMITIES: No edema feet - Labs CBC & Chem 7: 12/06/24 11:22 12/06/24 13:06 Labs: Abnormal Lab Results - Last 24 Hours (Table) 12/06/24 12/06/24 12/06/24 Range/Units 11:22 11:22 13:06 RBC 2.93 L (3.80-5.40) m/uL Hgb 8.8 L (11.4-16.0) gm/dL Hct 28.6 L (34.0-46.0) % MCHC 30.6 L (31.0-37.0) g/dL RDW 17.9 H (11.5-15.5) % Lymphocytes # 0.6 L (1.0-4.8) k/uL Potassium 3.0 L (3.5-5.1) mmol/L BUN 18 H (7-17) mg/dL Creatinine 1.07 H (0.52-1.04) mg/dL Glucose 150 H (74-99) mg/dL ALT 36 H (4-34) U/L Vancomycin Trough 33.1 H* ug/mL Microbiology - Last 24 Hours (Table) 12/04/24 14:17 Blood Culture - Preliminary Blood Assessment and Plan (1) Postoperative wound dehiscence Current Visit: Yes Status: Acute Code(s): T81.31XA - DISRUPTION OF EXTERNAL OPERATION (SURGICAL) WOUND, NEC, INIT SNOMED Code(s): 561741298 Plan: 1patient with a complicated history of multiple surgery to the thoracic spine recently subsequently did have a admission to the hospital with acute respiratory failure and Pseudomonas pneumonia now being presented to the hospital with a wound dehiscence to the mid thoracic spine which seem to be deep, underlying infection not entirely excluded keeping in mind the patient has been in and out of the hospital will need to cover for resistant gram-positive's and gram-negative pathogen 2blood culture has been obtained ESR mildly elevated at 37 3patient is status post surgical debridement cultures are currently pending, to continue vancomycin pharmacy to dose her however the dose need to be adjusted to keep the trough around 15 and watch creatinine closely, continue cefepime for gram-negative coverage while waiting for the culture to finalize. Dictation was produced using [employer] software. please excuse any grammatical, word or spelling errors. Time with Patient: Less than 30
--- NOTE | 2024-12-06 16:03 | P.PN ---
Subjective Progress Note Date: 12/06/24 On 12/05/2024, patient is being seen in consultation for COPD and complications of a previous thoracolumbar wound dehiscence. The patient has advanced COPD and she is chronically debilitated due to various other comorbidities which include coronary artery disease, hypertension, hyperlipidemia, hypothyroidism, seizure disorder, chronic anxiety/depression/PTSD. Noted the patient had back pain with progressive neurologic deficits due to cervical myelopathy and neck pain with upper and lower extremity weakness. The patient underwent a C3-7 ACDF for severe spondylosis, deformity and stenosis in addition to bilateral laminectomy and partial medial facetectomy and foraminotomy and his initial surgery was done on 07/15/2023. Subsequently, the patient was found to have a T2 vertebral body fracture with distal junctional failure of C2-T2 decompression and fusion. The patient also had a T2-T3 severe kyphosis. The patient underwent an open T2 vertebral body treatment with T2-3 osteotomy for deformity correction and posterior lateral and interbody fusion and revision of the C2-T7 posterolateral instrumented fusion and insertion of a biomechanical device T2-3, cage #1. Subsequently, the patient was taken again to the operating room on 10/27/2024 for dehiscence of the thoracic spine wound and a T8 burst compression fracture with kyphotic deformity. The patient at that time underwent open treatment of T8 fracture and irrigation excisional debridement of the thoracic spine wound and cement augmentation of T8, T9 and T10 vertebral bodies. Postop, the patient presented to us to the emergency room with respiratory failure, obtunded, responsive and she had to be intubated. She remained on the mechanical ventilator and she failed to wean as the patient is known to have advanced COPD. During the course of her illness, she was tested positive for Pseudomonas aeruginosa in her lungs. She was treated accordingly. Ultimately, the patient underwent a tracheostomy tube insertion, she was weaned off to mechanical ventilator and she was liberated from the mechanical ventilator. She was di scharged to an [facility] and following that, she was transferred to [facility] for his ongoing wound dehiscence. Based on that, the patient was transferred back to our facility for further care. CAT scan of the spine demonstrated extensive surgical changes of the thoracolumbar spine with pedicle screws and interbody rods. Small foci of subcutaneous air in the soft tissue was present posterior to T10, T12 and L1. The patient was afebrile the patient was hemodynamically stable. Normal renal function. Based on that, the patient will be taken again to the operating room for irrigation and excisional debridement of the wound. For now, the patient was restarted on vancomycin cefepime and Diflucan. She has PEG tube for enteral feeding and nutritional support. She remains on 10 mg of prednisone. The patient is currently on 28% trach collar, 5 L of oxygen with a pulse ox of 98%. The patient's white cell count is at 7.8 with a hemoglobin 7.5 and a platelet count of 356. Sodium is at 137, potassium is at 3.4, BUN is 14 with a creatinine of 0.6. Serum calcium level is at 8.4. The patient remains on DuoNeb nebulized treatments [id number]. The patient is on a combination of Perforomist and Pulmicort nebulized treatments twice a day. The patient is on a maintenance prednisone of 10 mg p.o. daily regarding her advanced COPD. The chest x-ray from 11/30/2024 shows COPD without any acute abnormalities. Hemodynamically stable. On 12/06/2024, the patient is being seen for a follow-up. The patient is resting comfortably in bed. She has a #4 Shiley fenestrated tracheostomy tube and she is able to talk and she has a speaking valve. No respiratory distress. She is able to swallow and she is not utilizing her PEG tube. She underwent x-ray with debridement and irrigation of the thoracolumbar wound. She remains on IV cefepime and Diflucan. Respiratory status is stable. No significant cough sputum production chest tightness or wheezing. She is quite weak and debilit ated. Nevertheless, she is awake and alert and communicating. Spine surgery is on the case. ID is also on the case. Pending wound cultures. No other significant events overnight. Objective - Vital Signs Vital signs: Vital Signs Temp 97.2 F L 12/06/24 06:54 Pulse 86 12/06/24 09:14 Resp 18 12/06/24 06:54 BP 111/60 12/06/24 06:54 Pulse Ox 96 12/06/24 08:40 FiO2 28 12/06/24 08:40 Intake & Output 12/05/24 12/06/24 12/06/24 18:59 06:59 18:59 Intake Total 1202 237 Output Total 770 800 Balance 432 -563 Weight 54.431 kg 49.5 kg Intake: IV 1202 Oral 237 Output: Urine 750 800 Uretheral (Howell) 500 Estimated Blood Loss 20 Other: Voiding Method Incontinent Indwelling Catheter # Voids 5 - Exam GENERAL EXAM: Awake, pleasant 54-year-old female, resting comfortably, on 28% FiO2 via trach collar, in no apparent distress. HEAD: Normocephalic. EYES: Normal reaction of pupils, equal size. NOSE: Clear with pink turbinates. THROAT: Tracheostomy tube secured in place. No erythema or exudates. NECK: No masses, no JVD. CHEST: No chest wall deformity. LUNGS: Equal air entry with no crackles, wheeze, rhonchi or dullness. CVS: S1 and S2 normal with no audible murmur, regular rhythm. ABDOMEN: PEG tube exit site clean and dry. No hepatosplenomegaly, normal bowel sounds, no guarding or rigidity. SPINE: No scoliosis or deformity CENTRAL NERVOUS SYSTEM: No noted focal deficit, tone is normal in all 4 extremities. Patient does have good range of motion throughout bilateral upper and lower extremities on exam. 4/5 in all major motor groups in bilateral upper and lower extremities. Radial pulse intact bilaterally. Negative Homans, Suhas, clonus bilaterally. EXTREMITIES: There is no peripheral edema. No clubbing, no cyanosis. Peripheral pulses are intact. Skin A 10 cm wound dehiscence on thoracolumbar spine. Negative for any active drainage. Negative for any significant ecchymosis or erythema. Sensation is equal, symmetric, bilateral intact throughout the upper and lower extremities. There is some generalized tenderness to patient throughout the spine on exam. Nontender on rest of exam. - Labs CBC & Chem 7: 12/06/24 11:22 12/06/24 13:06 Labs: Abnormal Lab Results - Last 24 Hours (Table) 12/06/24 12/06/24 Range/Units 11:22 11:22 RBC 2.93 L (3.80-5.40) m/uL Hgb 8.8 L (11.4-16.0) gm/dL Hct 28.6 L (34.0-46.0) % MCHC 30.6 L (31.0-37.0) g/dL RDW 17.9 H (11.5-15.5) % Lymphocytes # 0.6 L (1.0-4.8) k/uL Potassium 3.0 L (3.5-5.1) mmol/L BUN 18 H (7-17) mg/dL Creatinine 1.07 H (0.52-1.04) mg/dL Glucose 150 H (74-99) mg/dL ALT 36 H (4-34) U/L Microbiology - Last 24 Hours (Table) 12/04/24 14:17 Blood Culture - Preliminary Blood Assessment and Plan Plan: Thoracolumbar wound dehiscence awaiting surgical irrigation and excisional debridement by spine surgery. Patient is currently covered with broad-spectrum antibiotics including cefepime, vancomycin and Diflucan. Hemodynamically stable. Afebrile. The patient is postop day #1. Awaiting cultures. Covered with a combination of cefepime, vancomycin and Diflucan. ID is on the case. Advanced COPD, status post tracheostomy tube insertion for failure to wean off t he mechanical ventilator. The patient is currently on 28% trach collar. Chronic hypoxemic respiratory failure, remains on 28% trach collar Chronic dyspnea secondary to above Multiple spine surgeries including - T8 fracture. The patient was discharged from the hospital following surgery on 10/27/2024 for open treatment of a T8 fracture, irrigation and excisional debridement of thoracic spine wound measuring 10 x 7 x 4 cm, posterior lateral instrumented fusion of T7-T11 and cement augmentation of T8-T10 vertebral bodies. - T2 vertebral fracture with revision of C2-T7 posterior lateral fusion on 09/09/2024 - C3-7 ACDF for severe spondylosis, deformity and stenosis in addition to bilate ral laminectomy and partial medial facetectomy and foraminotomy and his initial surgery was done on 07/15/2023 Surgical site infection and wound dehiscence, wound and blood cultures revealed no growth Acute leukocytosis, improved Macrocytic anemia Rectal prolapse with bleeding History of hypertension History of hyperlipidemia History of coronary artery disease History of heart failure with preserved ejection fraction History of gastroesophageal reflux disease History of seizure disorder History of hypothyroidism History of anxiety/depression/PTSD Plan Overall respiratory status remains stable The patient is #4 fenestrated Shiley tracheostomy tube and she is able to talk and converse Patient is stable on 28% trach collar Continue DuoNeb inhalations Continue a prednisone currently on 10 mg dose maintenance Continue DuoNeb updrafts Continue Pulmicort and Perforomist inhalations Broad-spectrum antibiotic coverage with a combination of cefepime vancomycin and Diflucan, awaiting wound cultures post irrigation and incisional debridement Lovenox for DVT prophylaxis Advance oral diet as tolerated Obtain a baseline chest x-ray in a.m. Will continue to follow Resume home medications
[2024-12-06] MEDS ORDERED: Potassium Replacement Protocol 1 EACH MISC MISCELLANE PRN (16:04)
--- NOTE | 2024-12-06 16:42 | XR ---
EXAMINATION TYPE: XR chest 1V portable DATE OF EXAM: 12/06/2024 4:29 PM COMPARISON: Chest radiographs from 11/30/2024 CLINICAL INDICATION: Female, 54 years old with history of shortness of breath; [facility] TECHNIQUE: XR chest 1V portable Frontal view of the chest. FINDINGS: Lungs/Pleura: Prominent interstitial lung markings are seen scattered throughout the lungs. No eviden ce of focal consolidation, pneumothorax or pleural effusion. Pulmonary vascularity: Unremarkable. Heart/mediastinum: Cardiomediastinal silhouette is unremarkable. Musculoskeletal: No acute osseous pathology. Extensive surgical changes throughout the spine appear i ntact. IMPRESSION: 1. Chronic changes without acute pulmonary process. No significant change from prior. 2. Extensive surgical changes throughout the spine appear intact. [facility], , 12/06/2024 4:39 PM
[2024-12-06] MEDS: THIAMINE 100 MG TAB PO SCH (17:11)
[2024-12-06] MEDS: POTASSIUM BICARBONATE/CIT AC 20 MEQ TABLET.EFF NG-TUBE SCH (17:11)
[2024-12-06] MEDS: CEFEPIME 2 GM in SODIUM CHLORIDE 0.9% 100 ML IVPB SCH (20:23)
[2024-12-06] MEDS: MAGNESIUM HYDROXIDE 2,400 MG/30 ML CUP PEG/G-TUBE PRN (20:35)
[2024-12-06] MEDS: ALPRAZolam 0.5 MG TAB PO PRN (23:49)
[2024-12-07 04:51] LABS: African American GFR (CKD) 79 (>60 ml/min/1.73 sqM); Non-African American GFR(CKD) 68 (>60 ml/min/1.73 sqM)
[2024-12-07 04:56] LABS: Vancomycin,Random 21.6 ug/mL
[2024-12-07 05:50] LABS: Anion Gap 9 mmol/L; Blood Urea Nitrogen 20 mg/dL (7-17); Calcium 8.7 mg/dL (8.4-10.2); Carbon Dioxide 25 mmol/L (22-30); Chloride 105 mmol/L (98-107); Glucose 109 mg/dL (74-99); Sodium 139 mmol/L (137-145)
--- NOTE | 2024-12-07 06:10 | P.PN ---
Subjective Progress Note Date: 12/06/24 This is a pleasant 54 years old female with past medical history of multiple medical problems. Including recent hospitalization to this facility about a month ago for similar problem of infected surgical site at the back. Patient was sent from her [facility] for open surgical wound in the middle of her back. Patient was in this facility about a month ago for similar problem. Also she is a known case of tracheostomy she says she is on 4 L oxygen via trach collar. She denies chest pain. No significant dyspnea but she is on exam she still have some wheezing. She required 5 L slightly more of oxygen than her baseline She has pain in the middle of the back where she has open wound with no surrounding cellulitis Also she is s/p tube but no abdominal pain or tenderness. No urinary complaint. No headache dizziness. She is generally weak She denies smoking alcohol or illicit drugs. 12/05 Patient also on seizure medication brivaracetam which is not formulary in this hospital and it is switched to Keppra 500 mg twice daily. Also on gabapentin and Topamax. Patient was still complaining from back pain. Patient underwent excisional debridement of the thoracolumbar infected surgical wound. She was mildly tachypneic requiring 5 to 6 L of oxygen more than baseline of 4 L/min. Via trach collar Currently patient is still covered with antibiotic IV vancomycin and IV cefepime pending culture results 12/06/2024 Patient is seen in follow-up today currently sitting up in the chair working with physical therapy and case management following looking to possible inpatient rehab. Multiple consultations following including orthopedics and infectious disease maintained on antibiotics awaiting cultures to determine appropriate antibiotics on discharge. Patient continues to have tracheostomy and was evaluated by speech maintained on dysphagia diet. Patient does have a legal guardian and working on discharge planning. Patient is afebrile and white count is normal at this time. Patient is asking if her tracheostomy has been removed. Review of systems: Constitutional: No reports of fatigue, fever, or chills Cardiovascular: No reports of chest pain or palpitations Respiratory: No reports of shortness of breath or cough GI: No reports of nausea, vomiting, or diarrhea : No reports of dysuria or retention Neurovascular: reports of generalized weakness All medications have been reviewed Physical exam: Gen: This is a 54-year-old female who is awake, alert and oriented x 2-3, baseli ne, thin built, elderly appearing HEENT: Head is atraumatic, normocephalic. Pupils equal, round. Sclerae is anicteric. NECK: Supple. No JVD. No lymphadenopathy. No thyromegaly. LUNGS: Diminished breath sounds bilaterally with some coarse scattered rhonchi. No intercostal retractions. HEART: S1, S2 are muffled ABDOMEN: Soft. Thin. Bowel sounds are present. No masses. No tenderness. PEG tube noted EXTREMITIES: No pedal edema. No calf tenderness. NEUROLOGICAL: Patient is awake, alert and oriented x2-3. Cranial nerves 2 through 12 are grossly intact. Diffusely weak Assessment: Surgical wound dehiscence of the thoracic spine wound, status post debridement prior to discharge last month. S/p surgical excisional debridement and irrigation on 12/05/2024 status post tracheostomy on trach collar and PEG tube placement Acute on chronic hypoxic respiratory failure Mild acute COPD exacerbation Seizure disorder CHF Chronic hypoxic hypercapnic respiratory failure Hypertension Hyperlipidemia Hypothyroidism Seizure disorder History of DVT Chronic anemia Rectal prolapse Depression and PTSD GI prophylaxis DVT prophylaxis Full code Plan: Patient's status post excisional debridement of the thoracic spine infected wound. Follow-up wound culture with infectious disease following maintained on cefepime and vancomycin. Vanco trough elevated at 33 and vancomycin being discontinued. Currently awaiting finalized cultures to determine discharge antibiotics Orthopedics following recommending to continue with local wound care continue with oxygen therapy Continue with bronchodilator as needed Patient was evaluated by speech maintained on dysphagia diet and tolerating well. Continue with aspiration precautions with supervision with meals and head of the bed elevated 30 to 45 degrees at all times Encouraged increase activity as tolerated with getting up in the chair more frequently Follow-up on repeat labs. Replace electrolytes per protocol. Patient on multiple seizure medication, Keppra (brivaracetam is nonformulary) and gabapentin and Topamax Continue with prednisone 10 mg daily to finish the taper Case management following working on discharge planning and looking into possible inpatient rehab. Due to multiple complex medical issues, overall prognosis is guarded The impression and plan of care has been dictated by Kristina Wells, Nurse Practitioner as directed. Dr. Dick MD I have performed a history and examination and MDM of this patient, discussed the same with the dictator, and agree with the dictator's assessment and plan as written ,documented as a scribe. Based on total visit time, I have performed more than 50% of the visit. Objective - Vital Signs Vital signs: Vital Signs Temp 97.9 F 12/07/24 00:15 Pulse 84 12/07/24 00:15 Resp 17 12/07/24 00:15 BP 112/68 12/07/24 00:15 Pulse Ox 95 12/07/24 00:15 FiO2 28 12/07/24 02:30 Intake & Output 12/06/24 12/06/24 12/07/24 06:59 18:59 06:59 Intake Total 237 340 Output Total 800 1000 Balance -563 -660 Weight 49.5 kg Intake: Intake, IV Titration 340 Amount Cefepime 2 gm In Sodium 100 Chloride 0.9% 100 ml @ 25 mls/hr IVPB Q12H [facility] Rx# :[id number] IV Fluid Continuation 1, 240 000 ml @ 0 mls/hr IV .STK -[facility] ONE Rx#:[id number] Oral 237 Output: Urine 800 1000 Other: Voiding Method Indwelling Catheter Indwelling Catheter # Bowel Movements 1 - Labs CBC & Chem 7: 12/06/24 11:22 12/07/24 03:46 Labs: Abnormal Lab Results - Last 24 Hours (Table) 12/06/24 12/06/24 12/06/24 Range/Units 11:22 11:22 13:06 RBC 2.93 L (3.80-5.40) m/uL Hgb 8.8 L (11.4-16.0) gm/dL Hct 28.6 L (34.0-46.0) % MCHC 30.6 L (31.0-37.0) g/dL RDW 17.9 H (11.5-15.5) % Lymphocytes # 0.6 L (1.0-4.8) k/uL Potassium 3.0 L (3.5-5.1) mmol/L BUN 18 H (7-17) mg/dL Creatinine 1.07 H (0.52-1.04) mg/dL Glucose 150 H (74-99) mg/dL ALT 36 H (4-34) U/L Vancomycin Trough 33.1 H* ug/mL 12/07/24 Range/Units 03:46 RBC (3.80-5.40) m/uL Hgb (11.4-16.0) gm/dL Hct (34.0-46.0) % MCHC (31.0-37.0) g/dL RDW (11.5-15.5) % Lymphocytes # (1.0-4.8) k/uL Potassium 3.0 L (3.5-5.1) mmol/L BUN 20 H (7-17) mg/dL Creatinine (0.52-1.04) mg/dL Glucose 109 H (74-99) mg/dL ALT (4-34) U/L Vancomycin Trough ug/mL Microbiology - Last 24 Hours (Table) 12/04/24 14:17 Blood Culture - Preliminary Blood 12/05/24 15:05 Gram Stain - Preliminary Other - Other
--- NOTE | 2024-12-07 07:41 | XR ---
EXAMINATION TYPE: XR chest 1V portable DATE OF EXAM: 12/07/2024 6:52 AM COMPARISON: 12/06/2024 CLINICAL INDICATION: Female, 54 years old with history of shortness of breath, , FINDINGS: Tracheostomy cannula present. Extensive posterior spinal fusion hardware throughout the visualized sp ine. Heart normal size. Mild interstitial density is similar. No nakul consolidation or pleural effus ion. IMPRESSION: Similar mild interstitial density. Correlate to exclude mild pulmonary vascular congestion or subtle underlying interstitial pneumonitis or atypical infection. [facility], , 12/07/2024 7:39 AM
[2024-12-07 08:27] LABS: Basophils # (A) 0.04 X 10*3/uL (0.00-0.10); Basophils % (A) 0.5 %; Eosinophils # (A) 0.24 X 10*3/uL (0.04-0.35); Eosinophils % (A) 3.2 %; HGB 7.1 g/dL (12.0-15.0); Lymphocytes % (A) 22.6 %; MCHC 30.9 g/dL (32.0-37.0); MCV 100.4 FL (80.0-97.0); Mean Platelet Volume 10.3 FL (9.5-12.2); Monocytes # (A) 0.68 X 10*3/uL (0.20-1.00); NRBC Per 100 WBC 0 X 10*3/uL (0.00-0.01); Neutrophils # (A) 4.84 X 10*3/uL (1.80-7.70); Neutrophils % (A) 64.3 %; Platelet Count 305 X 10*3/uL (140-440); RBC 2.29 X 10*6/uL (4.10-5.20); RDW 18.8 % (11.5-14.5); WBC 7.53 X 10*3/uL (4.50-10.00)
--- NOTE | 2024-12-07 10:34 | P.PN ---
Subjective Progress Note Date: 12/07/24 Principal diagnosis: Status post irrigation and debridement thoracolumbar wound Patient evaluated today at bedside, she is resting in her hospital bed having lunch, her significant other is also present. Patient is having mild discomfort to the thoracolumbar region near the incision. She also complains of some sacral discomfort. It was noted at surgery she had a very early sacral decubitus ulcer beginning in that region, a bandage was placed. surgical dressing remains intact at this time. She denies any headaches, headedness, chest pain or shortness of breath Objective - Vital Signs Vital signs: Vital Signs Temp 97.6 F 12/07/24 07:00 Pulse 74 12/07/24 07:00 Resp 18 12/07/24 07:00 BP 117/70 12/07/24 07:00 Pulse Ox 100 12/07/24 07:00 FiO2 28 12/07/24 02:30 Intake & Output 12/06/24 12/07/24 12/07/24 18:59 06:59 18:59 Intake Total 340 Output Total 1000 500 Balance -660 -500 Intake: Intake, IV Titration 340 Amount Cefepime 2 gm In Sodium 100 Chloride 0.9% 100 ml @ 25 mls/hr IVPB Q12H [facility] Rx# :[id number] IV Fluid Continuation 1, 240 000 ml @ 0 mls/hr IV .K -[facility] Rx#:[id number] Output: Urine 1000 500 Other: Voiding Method Indwelling Catheter Indwelling Catheter # Bowel Movements 1 - Exam Postoperative dressing is in good position and condition, no surrounding erythema or soft tissue swelling noted. The Optifoam dressing is in place over the sacral wound. Patient has minimal tenderness with palpation of the thoracolumbar spine. Range of motion is intact in all majormuscle groups of the bilateral upper and lower extremities, no focal deficits appreciated. 4/5 strength appreciated in the bilateral upper and lower extremities in all major muscle groups. Calves are soft, no tenderness with palpation. Sensory exam to light touch throughout the bilateral upper and lower extremities are intact. Radial and ulnar pulses are 2+ bilaterally, dorsalis pedis pulses are 2+ bilaterally. - Labs CBC & Chem 7: 12/07/24 03:46 12/07/24 03:46 Labs: Abnormal Lab Results - Last 24 Hours (Table) 12/06/24 12/06/24 12/06/24 Range/Units 11:22 11:22 13:06 RBC 2.93 L (3.80-5.40) m/uL Hgb 8.8 L (11.4-16.0) gm/dL Hct 28.6 L (34.0-46.0) % MCV (80.0-97.0) [place] MCHC 30.6 L (31.0-37.0) g/dL RDW 17.9 H (11.5-15.5) % Lymphocytes # 0.6 L (1.0-4.8) k/uL Potassium 3.0 L (3.5-5.1) mmol/L BUN 18 H (7-17) mg/dL Creatinine 1.07 H (0.52-1.04) mg/dL Glucose 150 H (74-99) mg/dL ALT 36 H (4-34) U/L Vancomycin Trough 33.1 H* ug/mL 12/07/24 12/07/24 Range/Units 03:46 03:46 RBC 2.29 L (3.80-5.40) m/uL Hgb 7.1 L (11.4-16.0) gm/dL Hct 23.0 L (34.0-46.0) % MCV 100.4 H (80.0-97.0) [place] MCHC 30.9 L (31.0-37.0) g/dL RDW 18.8 H (11.5-15.5) % Lymphocytes # (1.0-4.8) k/uL Potassium 3.0 L (3.5-5.1) mmol/L BUN 20 H (7-17) mg/dL Creatinine (0.52-1.04) mg/dL Glucose 109 H (74-99) mg/dL ALT (4-34) U/L Vancomycin Trough ug/mL Microbiology - Last 24 Hours (Table) 12/04/24 14:17 Blood Culture - Preliminary Blood 12/05/24 15:05 Gram Stain - Preliminary Other - Other Assessment and Plan Assessment: Postoperative day #2 status post irrigation and debridement with closure of thoracolumbar wound Thoracolumbar wound dehiscence Multiple medical comorbidities Plan: Pain control, continue current medications GI and DVT prophylaxis, continue current medication Monitor surgical dressing, leave in place at this time. Will change on 12/08/2024 Low concern for infection at time of surgery, await culture and sensitivity results Weight-bear as tolerated with walker PT/OT recommendations Other medical specialty recommendations appreciated Discharge planning: Anticipate discharge to inpatient versus subacute rehab Time with Patient: Less than 30
[2024-12-07] MEDS: VANCOMYCIN 1,000 MG in SODIUM CHLORIDE 0.9% 250 ML IVPB ONE (11:50)
--- NOTE | 2024-12-07 12:52 | P.PN ---
Subjective Progress Note Date: 12/07/24 Principal diagnosis: Reason for follow-up is thoracic spine incision dehiscence Patient is a 54-year-old female with a past medical history significant for Asthma, Heart Failure, COPD, Deep Vein Thrombosis (DVT), Eye Disorder, Fibromyalgia, GERD/Reflux, Hyperlipidemia, Hypertension, Memory Impairment, Myocardial Infarction (MD), Osteoarthritis (OA), Pneumonia, Seizure Disorder, Skin Disorder, Syncope, Thyroid Disorder, multiple surgeries on the thoracic spine with readmission to the hospital concerning for wound dehiscence.Patient is status post irrigation and excisional requirement of the thoracolumbar spine wound, with removal of the skin soft tissue and subcu muscle as well as cultures obtained on 12/05/2024 On today's evaluation that is 12/07/2024,the patient denies any fever or any chills, patient is breathing comfortably on trach collar, the patient is sleepy but arousable in no distress no vomiting diarrhea or any other changes reported. Patient white count 7.53 creatinine 0.96 cultures currently pending Objective - Vital Signs Vital signs: Vital Signs Temp 97.6 F 12/07/24 07:00 Pulse 74 12/07/24 07:00 Resp 18 12/07/24 07:00 BP 117/70 12/07/24 07:00 Pulse Ox 100 12/07/24 07:00 FiO2 28 12/07/24 02:30 Intake & Output 12/06/24 12/07/24 12/07/24 18:59 06:59 18:59 Intake Total 340 Output Total 1000 1500 Balance -660 -1500 Intake: Intake, IV Titration 340 Amount Cefepime 2 gm In Sodium 100 Chloride 0.9% 100 ml @ 25 mls/hr IVPB Q12H [facility] Rx# :[id number] IV Fluid Continuation 1, 240 000 ml @ 0 mls/hr IV .STK -MED ONE Rx#:[id number] Output: Urine 1000 1500 Other: Voiding Method Indwelling Catheter Indwelling Catheter # Bowel Movements 1 - Exam GENERAL DESCRIPTION: Middle-age female lying in bed in no distress RESPIRATORY SYSTEM: Unlabored breathing , clear auscultation anteriorly HEART: S1 S2 regular rate and rhythm , ABDOMEN: Soft , no tenderness EXTREMITIES: No edema feet - Labs CBC & Chem 7: 12/07/24 03:46 12/07/24 03:46 Labs: Abnormal Lab Results - Last 24 Hours (Table) 12/06/24 12/07/24 12/07/24 Range/Units 13:06 03:46 03:46 RBC 2.29 L (4.10-5.20) X 10*6/uL Hgb 7.1 L (12.0-15.0) g/dL Hct 23.0 L (37.2-46.3) % MCV 100.4 H (80.0-97.0) FL MCHC 30.9 L (32.0-37.0) g/dL RDW 18.8 H (11.5-14.5) % Potassium 3.0 L (3.5-5.1) mmol/L BUN 20 H (7-17) mg/dL Glucose 109 H (74-99) mg/dL Vancomycin Trough 33.1 H* ug/mL Microbiology - Last 24 Hours (Table) 12/04/24 14:17 Blood Culture - Preliminary Blood 12/05/24 15:05 Gram Stain - Preliminary Other - Other Assessment and Plan (1) Postoperative wound dehiscence Current Visit: Yes Status: Acute Code(s): T81.31XA - DISRUPTION OF EXTERNAL OPERATION (SURGICAL) WOUND, NEC, INIT SNOMED Code(s): 266718651 Plan: 1patient with a complicated history of multiple surgery to the thoracic spine recently subsequently did have a admission to the hospital with acute respiratory failure and Pseudomonas pneumonia now being presented to the hospital with a wound dehiscence to the mid thoracic spine which seem to be deep, underlying infection not entirely excluded keeping in mind the patient has been in and out of the hospital will need to cover for resistant gram-positive's and gram-negative pathogen 2blood culture has been obtained ESR mildly elevated at 37 3patient is status post surgical debridement cultures are currently pending, currently being treated with vancomycin pharmacy to dose and cefepime, while waiting for the culture to finalize to determine discharge antibiotics. Dictation was produced using [employer] dictation software. please excuse any grammatical, word or spelling errors. Time with Patient: Less than 30
--- NOTE | 2024-12-07 15:59 | P.PN ---
Subjective Progress Note Date: 12/07/24 On 12/05/2024, patient is being seen in consultation for COPD and complications of a previous thoracolumbar wound dehiscence. The patient has advanced COPD and she is chronically debilitated due to various other comorbidities which include coronary artery disease, hypertension, hyperlipidemia, hypothyroidism, seizure disorder, chronic anxiety/depression/PTSD. Noted the patient had back pain with progressive neurologic deficits due to cervical myelopathy and neck pain with upper and lower extremity weakness. The patient underwent a C3-7 ACDF for severe spondylosis, deformity and stenosis in addition to bilateral laminectomy and partial medial facetectomy and foraminotomy and his initial surgery was done on 07/15/2023. Subsequently, the patient was found to have a T2 vertebral body fracture with distal junctional failure of C2-T2 decompression and fusion. The patient also had a T2-T3 severe kyphosis. The patient underwent an open T2 vertebral body treatment with T2-3 osteotomy for deformity correction and posterior lateral and interbody fusion and revision of the C2-T7 posterolateral instrumented fusion and insertion of a biomechanical device T2-3, cage #1. Subsequently, the patient was taken again to the operating room on 10/27/2024 for dehiscence of the thoracic spine wound and a T8 burst compression fracture with kyphotic deformity. The patient at that time underwent open treatment of T8 fracture and irrigation excisional debridement of the thoracic spine wound and cement augmentation of T8, T9 and T10 vertebral bodies. Postop, the patient presented to us to the emergency room with respiratory failure, obtunded, responsive and she had to be intubated. She remained on the mechanical ventilator and she failed to wean as the patient is known to have advanced COPD. During the course of her illness, she was tested positive for Pseudomonas aeruginosa in her lungs. She was treated accordingly. Ultimately, the patient underwent a tracheostomy tube insertion, she was weaned off to mechanical ventilator and she was liberated from the mechanical ventilator. She was di scharged to an [facility] and following that, she was transferred to [facility] for his ongoing wound dehiscence. Based on that, the patient was transferred back to our facility for further care. CAT scan of the spine demonstrated extensive surgical changes of the thoracolumbar spine with pedicle screws and interbody rods. Small foci of subcutaneous air in the soft tissue was present posterior to T10, T12 and L1. The patient was afebrile the patient was hemodynamically stable. Normal renal function. Based on that, the patient will be taken again to the operating room for irrigation and excisional debridement of the wound. For now, the patient was restarted on vancomycin cefepime and Diflucan. She has PEG tube for enteral feeding and nutritional support. She remains on 10 mg of prednisone. The patient is currently on 28% trach collar, 5 L of oxygen with a pulse ox of 98%. The patient's white cell count is at 7.8 with a hemoglobin 7.5 and a platelet count of 356. Sodium is at 137, potassium is at 3.4, BUN is 14 with a creatinine of 0.6. Serum calcium level is at 8.4. The patient remains on DuoNeb nebulized treatments [id number]. The patient is on a combination of Perforomist and Pulmicort nebulized treatments twice a day. The patient is on a maintenance prednisone of 10 mg p.o. daily regarding her advanced COPD. The chest x-ray from 11/30/2024 shows COPD without any acute abnormalities. Hemodynamically stable. On 12/06/2024, the patient is being seen for a follow-up. The patient is resting comfortably in bed. She has a #4 Shiley fenestrated tracheostomy tube and she is able to talk and she has a speaking valve. No respiratory distress. She is able to swallow and she is not utilizing her PEG tube. She underwent x-ray with debridement and irrigation of the thoracolumbar wound. She remains on IV cefepime and Diflucan. Respiratory status is stable. No significant cough sputum production chest tightness or wheezing. She is quite weak and debilit ated. Nevertheless, she is awake and alert and communicating. Spine surgery is on the case. ID is also on the case. Pending wound cultures. No other significant events overnight. On 12/07/2024, the patient is being seen for a follow-up. The patient is calm and comfortable and she has no specific complaints. She wanted to have her tracheostomy tube decannulated. However, I explained to her at length that this is not the right time to have her tracheostomy decannulated. Her respiratory status is stable. Nevertheless, we needed a secure airway should she need any further surgical intervention regarding her thoracolumbar wound. She is on a 28% trach collar and she is calm and comfortable. No significant respiratory secretions. Chest x-ray was noted from today and the patient has some mild interstitial densities without any acute airspace disease or consolidation. Tracheostomy tube is in a good location. Otherwise, no other new complaints. She remains on broad-spectrum antibiotics. Cultures are still pending. She remains on a combination of cefepime vancomycin and Diflucan. Hemodynamically stable. Blood work shows a white cell count of 7, hemoglobin of 7.1 and a plate let count of 305. BUN is 20 with a creatinine 0.9 and a sodium levels at 139, potassium is at 3.0 that needs to be replaced. ID is also on the case. Objective - Vital Signs Vital signs: Vital Signs Temp 97.6 F 12/07/24 07:00 Pulse 74 12/07/24 07:00 Resp 18 12/07/24 07:00 BP 117/70 12/07/24 07:00 Pulse Ox 100 12/07/24 07:00 FiO2 28 12/07/24 02:30 Intake & Output 12/06/24 12/07/24 12/07/24 18:59 06:59 18:59 Intake Total 340 Output Total 1000 1500 Balance -660 -1500 Intake: Intake, IV Titration 340 Amount Cefepime 2 gm In Sodium 100 Chloride 0.9% 100 ml @ 25 mls/hr IVPB Q12H [facility] Rx# :[id number] IV Fluid Continuation 1, 240 000 ml @ 0 mls/hr IV .STK -MED ONE Rx#:[id number] Output: Urine 1000 1500 Other: Voiding Method Indwelling Catheter Indwelling Catheter # Bowel Movements 1 - Exam GENERAL EXAM: Awake, pleasant 54-year-old female, resting comfortably, on 28% FiO2 via trach collar, in no apparent distress. HEAD: Normocephalic. EYES: Normal reaction of pupils, equal size. NOSE: Clear with pink turbinates. THROAT: Tracheostomy tube secured in place. No erythema or exudates. NECK: No masses, no JVD. CHEST: No chest wall deformity. LUNGS: Equal air entry with no crackles, wheeze, rhonchi or dullness. CVS: S1 and S2 normal with no audible murmur, regular rhythm. ABDOMEN: PEG tube exit site clean and dry. No hepatosplenomegaly, normal bowel sounds, no guarding or rigidity. SPINE: No scoliosis or deformity CENTRAL NERVOUS SYSTEM: No noted focal deficit, tone is normal in all 4 extremities. Patient does have good range of motion throughout bilateral upper and lower extremities on exam. 4/5 in all major motor groups in bilateral upper and lower extremities. Radial pulse intact bilaterally. Negative Homans, Suhas, clonus bilaterally. EXTREMITIES: There is no peripheral edema. No clubbing, no cyanosis. Peripheral pulses are intact. Skin A 10 cm wound dehiscence on thoracolumbar spine. Negative for any active drainage. Negative for any significant ecchymosis or erythema. Sensation is equal, symmetric, bilateral intact throughout the upper and lower extremities. There is some generalized tenderness to patient throughout the spine on exam. Nontender on rest of exam. - Labs CBC & Chem 7: 12/07/24 03:46 12/07/24 03:46 Labs: Abnormal Lab Results - Last 24 Hours (Table) 12/06/24 12/07/24 12/07/24 Range/Units 13:06 03:46 03:46 RBC 2.29 L (4.10-5.20) X 10*6/uL Hgb 7.1 L (12.0-15.0) g/dL Hct 23.0 L (37.2-46.3) % MCV 100.4 H (80.0-97.0) FL MCHC 30.9 L (32.0-37.0) g/dL RDW 18.8 H (11.5-14.5) % Potassium 3.0 L (3.5-5.1) mmol/L BUN 20 H (7-17) mg/dL Glucose 109 H (74-99) mg/dL Vancomycin Trough 33.1 H* ug/mL Microbiology - Last 24 Hours (Table) 12/04/24 14:17 Blood Culture - Preliminary Blood 12/05/24 15:05 Gram Stain - Preliminary Other - Other Assessment and Plan Plan: Thoracolumbar wound dehiscence awaiting surgical irrigation and excisional de bridement by spine surgery. Patient is currently covered with broad-spectrum antibiotics including cefepime, vancomycin and Diflucan. Hemodynamically stable. Afebrile. The patient is postop day # 2 awaiting cultures. Covered with a combination of cefepime, vancomycin and Diflucan. ID is on the case. Advanced COPD, status post tracheostomy tube insertion for failure to wean off the mechanical ventilator. The patient is currently on 28% trach collar. Chronic hypoxemic respiratory failure, remains on 28% trach collar Chronic dyspnea secondary to above Multiple spine surgeries including - T8 fracture. The patient was discharged from the hospital following surgery on 10/27/2024 for open treatment of a T8 fracture, irrigation and excisional debridement of thoracic spine wound measuring 10 x 7 x 4 cm, posterior lateral instrumented fusion of T7-T11 and cement augmentation of T8-T10 vertebral bodies. - T2 vertebral fracture with revision of C2-T7 posterior lateral fusion on 11/2024 - C3-7 ACDF for severe spondylosis, deformity and stenosis in addition to bilateral laminectomy and partial medial facetectomy and foraminotomy and his initial surgery was done on 07/15/2023 Surgical site infection and wound dehiscence, wound and blood cultures revealed no growth Acute leukocytosis, improved Macrocytic anemia Rectal prolapse with bleeding History of hypertension History of hyperlipidemia History of coronary artery disease History of heart failure with preserved ejection fraction History of gastroesophageal reflux disease History of seizure disorder History of hypothyroidism History of anxiety/depression/PTSD Plan Overall respiratory status remains stable. The patient is not a candidate for tracheostomy tube decannulation at this point in time. She is stable and the tracheostomy tube needs to be kept in place. The patient is #4 fenestrated Shiley tracheostomy tube and she is able to talk and converse Patient is stable on 28% trach collar Continue DuoNeb inhalations Continue a prednisone currently on 10 mg dose maintenance Continue DuoNeb updrafts Continue Pulmicort and Perforomist inhalations Broad-spectrum antibiotic coverage with a combination of cefepime vancomycin and Diflucan, awaiting wound cultures post irrigation and incisional debridement Lovenox for DVT prophylaxis Advance oral diet as tolerated Chest x-ray was noted Will follow Time with Patient: Greater than 30
[2024-12-07] MEDS: NICOTINE 14MG/24HR PATCH TRANSDERM SCH (16:04)
[2024-12-07] MEDS ORDERED: Potassium Replacement Protocol 1 EACH MISC MISCELLANE PRN (21:37)
[2024-12-07] MEDS: POTASSIUM BICARBONATE/CIT AC 20 MEQ TABLET.EFF NG-TUBE SCH (23:43)
--- NOTE | 2024-12-08 07:20 | P.PN ---
Progress Note - Text Progress Note Date: 12/08/24 PT DOING WELL POSTOP. WAS EATING AND SITTING UP. CX NEGATIVE SO FAR. ID ON. CONT WITH SUPPORTIVE CARE. PAIN CONTROL, GI/DVT PPX. ENCOURAGE AMBULATION. PT/OT DAILY. INCREASE STRENGTH AND AMBULATION MAINTAIN WOUND CLEAN AND DRY. LEAVE STITCHES IN FOR AT LEAST 14-21 DAYS. DC PLANNING. STABLE PER SPINE.
[2024-12-08 07:52] LABS: African American GFR (CKD) 80 (>60 ml/min/1.73 sqM); Anion Gap 6 mmol/L; Blood Urea Nitrogen 29 mg/dL (7-17); Calcium 8.7 mg/dL (8.4-10.2); Carbon Dioxide 27 mmol/L (22-30); Chloride 101 mmol/L (98-107); Glucose 97 mg/dL (74-99); Magnesium 1.4 mg/dL (1.6-2.3); Non-African American GFR(CKD) 70 (>60 ml/min/1.73 sqM); Potassium 3.8 mmol/L (3.5-5.1); Sodium 134 mmol/L (137-145)
[2024-12-08] MEDS ORDERED: Magnesium Replacement Protocol 1 EACH MISC MISCELLANE PRN (09:05)
--- NOTE | 2024-12-08 09:08 | P.PN ---
Subjective Progress Note Date: 12/07/24 This is a pleasant 54 years old female with past medical history of multiple medical problems. Including recent hospitalization to this facility about a month ago for similar problem of infected surgical site at the back. Patient was sent from her [facility] for open surgical wound in the middle of her back. Patient was in this facility about a month ago for similar problem. Also she is a known case of tracheostomy she says she is on 4 L oxygen via trach collar. She denies chest pain. No significant dyspnea but she is on exam she still have some wheezing. She required 5 L slightly more of oxygen than her baseline She has pain in the middle of the back where she has open wound with no surrounding cellulitis Also she is s/p tube but no abdominal pain or tenderness. No urinary complaint. No headache dizziness. She is generally weak She denies smoking alcohol or illicit drugs. 12/05 Patient also on seizure medication brivaracetam which is not formulary in this hospital and it is switched to Keppra 500 mg twice daily. Also on gabapentin and Topamax. Patient was still complaining from back pain. Patient underwent excisional debridement of the thoracolumbar infected surgical wound. She was mildly tachypneic requiring 5 to 6 L of oxygen more than baseline of 4 L/min. Via trach collar Currently patient is still covered with antibiotic IV vancomycin and IV cefepime pending culture results 12/06/2024 Patient is seen in follow-up today currently sitting up in the chair working with physical therapy and case management following looking to possible inpatient rehab. Multiple consultations following including orthopedics and infectious disease maintained on antibiotics awaiting cultures to determine appropriate antibiotics on discharge. Patient continues to have tracheostomy and was evaluated by speech maintained on dysphagia diet. Patient does have a legal guardian and working on discharge planning. Patient is afebrile and white count is normal at this time. Patient is asking if her tracheostomy has been removed. 12/07/2024 Patient is seen in follow-up today awaiting cultures to determine discharge antibiotics with infectious disease and orthopedics following. Case management also following working on inpatient rehab possibly in [place] or [facility] and will require insurance authorization. Patient is tolerating diet and would continue on aspiration precautions and supervision with meals. Patient is afebrile and denies chest pain or shortness of breath. Continue with local wound care per orthopedics and infectious disease. Hemoglobin is 7.1 today and will transfuse 1 unit of PRBC. Follow-up on repeat labs in AM. Review of systems: Constitutional: No reports of fatigue, fever, or chills Cardiovascular: No reports of chest pain or palpitations Respiratory: No reports of shortness of breath or cough GI: No reports of nausea, vomiting, or diarrhea : No reports of dysuria or retention Neurovascular: reports of generalized weakness All medications have been reviewed Physical exam: Gen: This is a 54-year-old female who is awake, alert and oriented x 2-3, baseline, thin built, elderly appearing HEENT: Head is atraumatic, normocephalic. Pupils equal, round. Sclerae is anicteric. NECK: Supple. No JVD. No lymphadenopathy. No thyromegaly. LUNGS: Diminished breath sounds bilaterally with some coarse scattered rhonchi. No intercostal retractions. HEART: S1, S2 are muffled ABDOMEN: Soft. Thin. Bowel sounds are present. No masses. No tenderness. PEG tube noted EXTREMITIES: No pedal edema. No calf tenderness. NEUROLOGICAL: Patient is awake, alert and oriented x2-3. Cranial nerves 2 through 12 are grossly intact. Diffusely weak Assessment: Surgical wound dehiscence of the thoracic spine wound, status post debridement prior to discharge last month. S/p surgical excisional debridement and irrigation on 12/05/2024 status post tracheostomy on trach collar and PEG tube placement Acute on chronic hypoxic respiratory failure Mild acute COPD exacerbation Seizure disorder CHF Chronic hypoxic hypercapnic respiratory failure Hypertension Hyperlipidemia Hypothyroidism Seizure disorder History of DVT Chronic anemia Rectal prolapse Depression and PTSD GI prophylaxis DVT prophylaxis Full code Plan: Patient's status post excisional debridement of the thoracic spine infected wound. Follow-up wound culture with infectious disease following maintained on cefepime and vancomycin. Vanco trough elevated at 33 and vancomycin being discontinued. Currently awaiting finalized cultures to determine discharge antibiotics. Cultures thus far negative Orthopedics following recommending to continue with local wound care continue with oxygen therapy and tracheostomy care with frequent suctioning Continue with bronchodilator as needed Patient was evaluated by speech maintained on dysphagia diet and tolerating well. Continue with aspiration precautions with supervision with meals and head of the bed elevated 30 to 45 degrees at all times Encouraged increase activity as tolerated with getting up in the chair more frequently Hemoglobin 7.1 with no active bleeding noted although will give 1 unit of PRBC and follow-up on repeat labs. Replace electrolytes per protocol. Patient on multiple seizure medication, Keppra (brivaracetam is nonformulary) and gabapentin and Topamax Continue with prednisone 10 mg daily to finish the taper, finish the taper Case management following working on discharge planning and looking into possible inpatient rehab in [facility] Due to multiple complex medical issues, overall prognosis is guarded The impression and plan of care has been dictated by Kristina Wells, Nurse Practitioner as directed. Dr. Dick MD I have performed a history and examination and MDM of this patient, discussed the same with the dictator, and agree with the dictator's assessment and plan as written ,documented as a scribe. Based on total visit time, I have performed more than 50% of the visit. Objective - Vital Signs Vital signs: Vital Signs Temp 98.1 F 12/07/24 20:42 Pulse 89 12/07/24 21:21 Resp 17 12/07/24 20:42 BP 144/87 12/07/24 20:42 Pulse Ox 97 12/07/24 20:42 FiO2 28 12/07/24 20:47 Intake & Output 12/07/24 12/07/24 12/08/24 06:59 18:59 06:59 Intake Total 340 Output Total 1000 1500 Balance -660 -1500 Intake: Intake, IV Titration 340 Amount Cefepime 2 gm In Sodium 100 Chloride 0.9% 100 ml @ 25 mls/hr IVPB Q12H [facility] Rx# :[id number] IV Fluid Continuation 1, 240 000 ml @ 0 mls/hr IV .STK -[facility] ONE Rx#:[id number] Output: Urine 1000 1500 Other: Voiding Method Indwelling Catheter Indwelling Catheter # Bowel Movements 1 1 - Labs CBC & Chem 7: 12/07/24 03:46 12/08/24 07:16 Labs: Abnormal Lab Results - Last 24 Hours (Table) 12/07/24 12/07/24 Range/Units 03:46 03:46 RBC 2.29 L (4.10-5.20) X 10*6/uL Hgb 7.1 L (12.0-15.0) g/dL Hct 23.0 L (37.2-46.3) % MCV 100.4 H (80.0-97.0) FL MCHC 30.9 L (32.0-37.0) g/dL RDW 18.8 H (11.5-14.5) % Potassium 3.0 L (3.5-5.1) mmol/L BUN 20 H (7-17) mg/dL Glucose 109 H (74-99) mg/dL Microbiology - Last 24 Hours (Table) 12/05/24 15:05 Anaerobic Culture - Preliminary Other - Other 12/05/24 15:05 Gram Stain - Preliminary Other - Other Wound Culture - Preliminary 12/04/24 14:17 Blood Culture - Preliminary Blood
[2024-12-08 09:26] LABS: Vancomycin,Random 18.4 ug/mL
[2024-12-08 10:39] LABS: Basophils # (A) 0.05 X 10*3/uL (0.00-0.10); Basophils % (A) 0.5 %; Eosinophils # (A) 0.31 X 10*3/uL (0.04-0.35); Eosinophils % (A) 3.2 %; HCT 31.7 % (37.2-46.3); HGB 9.8 g/dL (12.0-15.0); Lymphocytes # (A) 2.07 X 10*3/uL (0.90-5.00); Lymphocytes % (A) 21.5 %; MCH 30.2 pg (27.0-32.0); MCHC 30.9 g/dL (32.0-37.0); MCV 97.5 FL (80.0-97.0); Mean Platelet Volume 10.3 FL (9.5-12.2); Monocytes # (A) 0.87 X 10*3/uL (0.20-1.00); NRBC Per 100 WBC 0 X 10*3/uL (0.00-0.01); Neutrophils % (A) 65.4 %; Platelet Count 305 X 10*3/uL (140-440); RBC 3.25 X 10*6/uL (4.10-5.20); WBC 9.64 X 10*3/uL (4.50-10.00)
[2024-12-08] MEDS: POTASSIUM BICARBONATE/CIT AC 20 MEQ TABLET.EFF PO SCH (10:43)
[2024-12-08] MEDS: MAGNESIUM SULFATE-D5W PMX 1 GM in DEXTROSE/WATER 1 100ML.BAG IVPB SCH (10:49)
[2024-12-08] MEDS: VANCOMYCIN 1,000 MG in SODIUM CHLORIDE 0.9% 250 ML IVPB SCH (13:39)
[2024-12-08 14:16] VITALS: BMI 16.2
--- NOTE | 2024-12-08 15:00 | P.PN ---
Subjective Progress Note Date: 12/08/24 Principal diagnosis: Reason for follow-up is thoracic spine incision dehiscence Patient is a 54-year-old female with a past medical history significant for Asthma, Heart Failure, COPD, Deep Vein Thrombosis (DVT), Eye Disorder, Fibromyalgia, GERD/Reflux, Hyperlipidemia, Hypertension, Memory Impairment, Myocardial Infarction (NE), Osteoarthritis (OA), Pneumonia, Seizure Disorder, Skin Disorder, Syncope, Thyroid Disorder, multiple surgeries on the thoracic spine with readmission to the hospital concerning for wound dehiscence.Patient is status post irrigation and excisional requirement of the thoracolumbar spine wound, with removal of the skin soft tissue and subcu muscle as well as cultures obtained on 12/05/2024 On today's evaluation that is 12/08/2024,the patient remains to be afebrile, patient is on 28% trach collar supplemental oxygen and denies any shortness of breath no chest pain or cough.Patient denies having any nausea or vomiting, no abdominal pain and no diarrhea or pain to the mid back area. Patient white count is 9.64 creatinine 0.95 Vanco random is 18.4 culture have been negative so far Objective - Vital Signs Vital signs: Vital Signs Temp 97.9 F 12/08/24 07:30 Pulse 83 12/08/24 07:30 Resp 17 12/08/24 07:30 BP 150/89 12/08/24 07:30 Pulse Ox 100 12/08/24 07:30 FiO2 28 12/08/24 00:08 Intake & Output 12/07/24 12/08/24 12/08/24 18:59 06:59 18:59 Intake Total 310 Output Total 1500 1300 Balance -1500 -990 Weight 45.5 kg Intake: Blood Product 310 Rc As-1 Unit 310 [id number] Output: Urine 1500 1300 Other: Voiding Method Indwelling Catheter Indwelling Catheter Indwelling Catheter # Bowel Movements 1 - Exam GENERAL DESCRIPTION: Middle-age female lying in bed in no distress RESPIRATORY SYSTEM: Unlabored breathing , clear auscultation anteriorly HEART: S1 S2 regular rate and rhythm , ABDOMEN: Soft , no tenderness Mid back incision is intact no swelling redness - Labs CBC & Chem 7: 12/08/24 07:16 12/08/24 07:16 Labs: Abnormal Lab Results - Last 24 Hours (Table) 04/11/0112/08/24 12/08/24 Range/Units 23:12 07:16 07:16 RBC 3.25 L (4.10-5.20) X 10*6/uL Hgb 9.8 L (12.0-15.0) g/dL Hct 31.7 L (37.2-46.3) % MCV 97.5 H (80.0-97.0) FL MCHC 30.9 L (32.0-37.0) g/dL RDW 18.0 H (11.5-14.5) % Sodium 134 L (137-145) mmol/L BUN 29 H (7-17) mg/dL Magnesium 1.4 L (1.6-2.3) mg/dL Crossmatch See Detail Microbiology - Last 24 Hours (Table) 12/05/24 15:03 Anaerobic Culture - Preliminary Other - Other 12/05/24 15:03 Gram Stain - Preliminary Other - Other Wound Culture - Preliminary 12/04/24 14:17 Blood Culture - Preliminary Blood 12/05/24 15:05 Anaerobic Culture - Preliminary Other - Other 12/05/24 15:05 Gram Stain - Preliminary Other - Other Wound Culture - Preliminary Assessment and Plan (1) Postoperative wound dehiscence Current Visit: Yes Status: Acute Code(s): T81.31XA - DISRUPTION OF EXTERNAL OPERATION (SURGICAL) WOUND, NEC, INIT SNOMED Code(s): 239041746 Plan: 1patient with a complicated history of multiple surgery to the thoracic spine recently subsequently did have a admission to the hospital with acute respiratory failure and Pseudomonas pneumonia now being presented to the hospital with a wound dehiscence to the mid thoracic spine which seem to be deep, underlying infection not entirely excluded keeping in mind the patient has been in and out of the hospital will need to cover for resistant gram-positive's and gram-negative pathogen 2blood culture has been obtained ESR mildly elevated at 37 3patient is status post surgical debridement cultures are so far negative, currently being treated with vancomycin pharmacy to dose and cefepime, however if the culture remains to be negative there will be no need for antibiotics on d ischarge Dictation was produced using [employer] dictation software. please excuse any grammatical, word or spelling errors. Time with Patient: Less than 30
--- NOTE | 2024-12-08 19:59 | XR ---
EXAMINATION TYPE: XR chest 1V DATE OF EXAM: 12/08/2024 7:51 PM COMPARISON: Multiple radiographs, with the most recent on 12/07/2024 TECHNIQUE: XR chest 1V Portable AP radiograph of the chest. CLINICAL INDICATION:Female, 54 years old with history of food stuck , aspiration; FINDINGS: Lungs/Pleura: Similar diffuse interstitial prominence. No evidence of focal consolidation, pneumothor ax or pleural effusion. Heart/mediastinum: Cardiomediastinal silhouette is unremarkable. Musculoskeletal: No acute osseous pathology. Extensive surgical changes throughout the spine appear i ntact. Other: Tracheostomy cannula is in stable position. PEG tube overlying the left upper quadrant. IMPRESSION: Minor mild diffuse interstitial prominence without nakul consolidation. Correlate to exclude mild pul monary vascular congestion or subtle underlying interstitial pneumonitis or atypical infection. [facility] Jeronimo, , 12/08/2024 7:57 PM
[2024-12-08] MEDS: ONDANSETRON 4 MG/2 ML VIAL IVP PRN (20:18)
--- NOTE | 2024-12-08 23:10 | P.PN ---
Subjective Progress Note Date: 12/08/24 On 12/05/2024, patient is being seen in consultation for COPD and complications of a previous thoracolumbar wound dehiscence. The patient has advanced COPD and she is chronically debilitated due to various other comorbidities which include coronary artery disease, hypertension, hyperlipidemia, hypothyroidism, seizure disorder, chronic anxiety/depression/PTSD. Noted the patient had back pain with progressive neurologic deficits due to cervical myelopathy and neck pain with upper and lower extremity weakness. The patient underwent a C3-7 ACDF for severe spondylosis, deformity and stenosis in addition to bilateral laminectomy and partial medial facetectomy and foraminotomy and his initial surgery was done on 07/15/2023. Subsequently, the patient was found to have a T2 vertebral body fracture with distal junctional failure of C2-T2 decompression and fusion. The patient also had a T2-T3 severe kyphosis. The patient underwent an open T2 vertebral body treatment with T2-3 osteotomy for deformity correction and posterior lateral and interbody fusion and revision of the C2-T7 posterolateral instrumented fusion and insertion of a biomechanical device T2-3, cage #1. Subsequently, the patient was taken again to the operating room on 10/27/2024 for dehiscence of the thoracic spine wound and a T8 burst compression fracture with kyphotic deformity. The patient at that time underwent open treatment of T8 fracture and irrigation excisional debridement of the thoracic spine wound and cement augmentation of T8, T9 and T10 vertebral bodies. Postop, the patient presented to us to the emergency room with respiratory failure, obtunded, responsive and she had to be intubated. She remained on the mechanical ventilator and she failed to wean as the patient is known to have advanced COPD. During the course of her illness, she was tested positive for Pseudomonas aeruginosa in her lungs. She was treated accordingly. Ultimately, the patient underwent a tracheostomy tube insertion, she was weaned off to mechanical ventilator and she was liberated from the mechanical ventilator. She was di scharged to an [facility] and following that, she [place] [facility] [place] dehiscence. Based on that, the patient was transferred back to our facility for further care. CAT scan of the spine demonstrated extensive surgical changes of the thoracolumbar spine with pedicle screws and interbody rods. Small foci of subcutaneous air in the soft tissue was present posterior to T10, T12 and L1. The patient was afebrile the patient was hemodynamically stable. Normal renal function. Based on that, the patient will be taken again to the operating room for irrigation and excisional debridement of the wound. For now, the patient was restarted on vancomycin cefepime and Diflucan. She has PEG tube for enteral feeding and nutritional support. She remains on 10 mg of prednisone. The patient is currently on 28% trach collar, 5 L of oxygen with a pulse ox of 98%. The patient's white cell count is at 7.8 with a hemoglobin 7.5 and a platelet count of 356. Sodium is at 137, potassium is at 3.4, BUN is 14 with a creatinine of 0.6. Serum calcium level is at 8.4. The patient remains on DuoNeb nebulized treatments [id number]. The patient is on a combination of Perforomist and Pulmicort nebulized treatments twice a day. The patient is on a maintenance prednisone of 10 mg p.o. daily regarding her advanced COPD. The chest x-ray from 11/30/2024 shows COPD without any acute abnormalities. Hemodynamically stable. On 12/06/2024, the patient is being seen for a follow-up. The patient is resting comfortably in bed. She has a #4 Shiley fenestrated tracheostomy tube and she is able to talk and she has a speaking valve. No respiratory distress. She is able to swallow and she is not utilizing her PEG tube. She underwent x-ray with debridement and irrigation of the thoracolumbar wound. She remains on IV cefepime and Diflucan. Respiratory status is stable. No significant cough sputum production chest tightness or wheezing. She is quite weak and debilit ated. Nevertheless, she is awake and alert and communicating. Spine surgery is on the case. ID is also on the case. Pending wound cultures. No other significant events overnight. On 12/07/2024, the patient is being seen for a follow-up. The patient is calm and comfortable and she has no specific complaints. She wanted to have her tracheostomy tube decannulated. However, I explained to her at length that this is not the right time to have her tracheostomy decannulated. Her respiratory status is stable. Nevertheless, we needed a secure airway should she need any further surgical intervention regarding her thoracolumbar wound. She is on a 28% trach collar and she is calm and comfortable. No significant respiratory secretions. Chest x-ray was noted from today and the patient has some mild interstitial densities without any acute airspace disease or consolidation. Tracheostomy tube is in a good location. Otherwise, no other new complaints. She remains on broad-spectrum antibiotics. Cultures are still pending. She remains on a combination of cefepime vancomycin and Diflucan. Hemodynamically stable. Blood work shows a white cell count of 7, hemoglobin of 7.1 and a plate let count of 305. BUN is 20 with a creatinine 0.9 and a sodium levels at 139, potassium is at 3.0 that needs to be replaced. ID is also on the case. On 12/08/2024, the patient has no new complaints. She does have some loose respiratory secretions that she is able to cough out. Her tracheostomy tube accidentally fell out. I had to reinsert the tube back again and she was given a new number for fenestrated Shiley tracheostomy tube and the insertion was done without any major difficulties. The white cell count is at 9.6 with a hemoglobin 9.8 and a platelet count of 305. Sodium is 134, BUN 29 with a creatinine of 0.9. Potassium level is at 3.8. Medications remain unchanged. She remains on bronchodilators. She remains on antibiotics and she remains also on Lovenox for DVT prophylaxis. She remains on cefepime, and vancomycin. ID is on the case. The surgical wound site over the thoracolumbar area is dry clean and intact. The patient is tolerating her diet. No new complaints. Objective - Vital Signs Vital signs: Vital Signs Temp 97.9 F 12/08/24 07:30 Pulse 83 12/08/24 07:30 Resp 17 12/08/24 07:30 BP 150/89 12/08/24 07:30 Pulse Ox 100 12/08/24 07:30 FiO2 28 12/08/24 00:08 Intake & Output 12/07/24 12/08/24 12/08/24 18:59 06:59 18:59 Intake Total 310 Output Total 1500 1300 Balance -1500 -990 Weight 45.5 kg Intake: Blood Product 310 Rc As-1 Unit 310 [id number] Output: Urine 1500 1300 Other: Voiding Method Indwelling Catheter Indwelling Catheter Indwelling Catheter # Bowel Movements 1 - Exam GENERAL EXAM: Awake, pleasant 54-year-old female, resting comfortably, on 28% FiO2 via trach collar, in no apparent distress. HEAD: Normocephalic. EYES: Normal reaction of pupils, equal size. NOSE: Clear with pink turbinates. THROAT: Tracheostomy tube secured in place. No erythema or exudates. NECK: No masses, no JVD. CHEST: No chest wall deformity. LUNGS: Equal air entry with no crackles, wheeze, rhonchi or dullness. CVS: S1 and S2 normal with no audible murmur, regular rhythm. ABDOMEN: PEG tube exit site clean and dry. No hepatosplenomegaly, normal bowel sounds, no guarding or rigidity. SPINE: No scoliosis or deformity CENTRAL NERVOUS SYSTEM: No noted focal deficit, tone is normal in all 4 extremities. Patient does have good range of motion throughout bilateral upper and lower extremities on exam. 4/5 in all major motor groups in bilateral upper and lower extremities. Radial pulse intact bilaterally. Negative Homans, Suhas, clonus bilaterally. EXTREMITIES: There is no peripheral edema. No clubbing, no cyanosis. Peripher al pulses are intact. Skin A 10 cm wound dehiscence on thoracolumbar spine. Negative for any active drainage. Negative for any significant ecchymosis or erythema. Sensation is equal, symmetric, bilateral intact throughout the upper and lower extremities. There is some generalized tenderness to patient throughout the spine on exam. Nontender on rest of exam. - Labs CBC & Chem 7: 12/08/24 07:16 12/08/24 07:16 Labs: Abnormal Lab Results - Last 24 Hours (Table) 12/07/24 12/08/24 12/08/24 Range/Units 23:12 07:16 07:16 RBC 3.25 L (4.10-5.20) X 10*6/uL Hgb 9.8 L (12.0-15.0) g/dL Hct 31.7 L (37.2-46.3) % MCV 97.5 H (80.0-97.0) FL MCHC 30.9 L (32.0-37.0) g/dL RDW 18.0 H (11.5-14.5) % Sodium 134 L (137-145) mmol/L BUN 29 H (7-17) mg/dL Magnesium 1.4 L (1.6-2.3) mg/dL Crossmatch See Detail Microbiology - Last 24 Hours (Table) 12/05/24 15:03 Anaerobic Culture - Preliminary Other - Other 12/05/24 15:03 Gram Stain - Preliminary Other - Other Wound Culture - Preliminary 12/04/24 14:17 Blood Culture - Preliminary Blood 12/05/24 15:05 Anaerobic Culture - Preliminary Other - Other 12/05/24 15:05 Gram Stain - Preliminary Other - Other Wound Culture - Preliminary Assessment and Plan Plan: Thoracolumbar wound dehiscence awaiting surgical irrigation and excisional debridement by spine surgery. Patient is currently covered with broad-spectrum antibiotics including cefepime, vancomycin and Diflucan. Hemodynamically stable. Afebrile. The patient is postop day # 3 awaiting cultures. Covered with a combination of cefepime, vancomycin. ID is on the case. Advanced COPD, status post tracheostomy tube insertion for failure to wean off the mechanical ventilator. The patient is currently on 28% trach collar. Chronic hypoxemic respiratory failure, remains on 28% trach collar Chronic dyspnea secondary to above Multiple spine surgeries including - T8 fracture. The patient was discharged from the hospital following surgery on 10/27/2024 for open treatment of a T8 fracture, irrigation and excisional debridement of thoracic spine wound measuring 10 x 7 x 4 cm, posterior lateral instrumented fusion of T7-T11 and cement augmentation of T8-T10 vertebral bodies. - T2 vertebral fracture with revision of C2-T7 posterior lateral fusion on 09/09/2024 - C3-7 ACDF for severe spondylosis, deformity and stenosis in addition to bila teral laminectomy and partial medial facetectomy and foraminotomy and his initial surgery was done on 07/15/2023 Surgical site infection and wound dehiscence, wound and blood cultures revealed no growth Acute leukocytosis, improved Macrocytic anemia Rectal prolapse with bleeding History of hypertension History of hyperlipidemia History of coronary artery disease History of heart failure with preserved ejection fraction History of gastroesophageal reflux disease History of seizure disorder History of hypothyroidism History of anxiety/depression/PTSD Plan Overall respiratory status remains stable. The patient is not a candidate for tracheostomy tube decannulation at this point in time. She is stable and the tracheostomy tube needs to be kept in place. The tracheostomy tube was exchanged today as the previous insert the tube accidentally fell out The patient is #4 fenestrated Shiley tracheostomy tube and she is able to talk and converse Patient is stable on 28% trach collar Continue DuoNeb inhalations Continue a prednisone currently on 10 mg dose maintenance Continue DuoNeb updrafts Continue Pulmicort and Perforomist inhalations Broad-spectrum antibiotic coverage with a combination of cefepime vancomycin , awaiting wound cultures post irrigation and incisional debridement Lovenox for DVT prophylaxis Advance oral diet as tolerated Chest x-ray was noted Will follow
[2024-12-09 05:12] LABS: African American GFR (CKD) 80 (>60 ml/min/1.73 sqM); Magnesium 1.9 mg/dL (1.6-2.3); Non-African American GFR(CKD) 70 (>60 ml/min/1.73 sqM)
--- NOTE | 2024-12-09 06:35 | P.PN ---
Subjective Progress Note Date: 12/08/24 This is a pleasant 54 years old female with past medical history of multiple medical problems. Including recent hospitalization to this facility about a month ago for similar problem of infected surgical site at the back. Patient was sent from her ECF for open surgical wound in the middle of her back. Patient was in this facility about a month ago for similar problem. Also she is a known case of tracheostomy she says she is on 4 L oxygen via trach collar. She denies chest pain. No significant dyspnea but she is on exam she still have some wheezing. She required 5 L slightly more of oxygen than her baseline She has pain in the middle of the back where she has open wound with no surrounding cellulitis Also she is s/p tube but no abdominal pain or tenderness. No urinary complaint. No headache dizziness. She is generally weak She denies smoking alcohol or illicit drugs. 12/05 Patient also on seizure medication brivaracetam which is not formulary in this hospital and it is switched to Keppra 500 mg twice daily. Also on gabapentin and Topamax. Patient was still complaining from back pain. Patient underwent excisional debridement of the thoracolumbar infected surgical wound. She was mildly tachypneic requiring 5 to 6 L of oxygen more than baseline of 4 L/min. Via trach collar Currently patient is still covered with antibiotic IV vancomycin and IV cefepime pending culture results 12/06/2024 Patient is seen in follow-up today currently sitting up in the chair working with physical therapy and case management following looking to possible inpatient rehab. Multiple consultations following including orthopedics and infectious disease maintained on antibiotics awaiting cultures to determine appropriate antibiotics on discharge. Patient continues to have tracheostomy and was evaluated by speech maintained on dysphagia diet. Patient does have a legal guardian and working on discharge planning. Patient is afebrile and white count is normal at this time. Patient is asking if her tracheostomy has been removed. 12/07/2024 Patient is seen in follow-up today awaiting cultures to determine discharge antibiotics with infectious disease and orthopedics following. Case management also following working on inpatient rehab possibly in [place] or [facility] and will require insurance authorization. Patient is tolerating diet and would continue on aspiration precautions and supervision with meals. Patient is afebrile and denies chest pain or shortness of breath. Continue with local wound care per orthopedics and infectious disease. Hemoglobin is 7.1 today and will transfuse 1 unit of PRBC. Follow-up on repeat labs in AM. 12/08/2024 Patient is seen in follow-up and apparently took her tracheostomy cannula out per nursing staff. Pulmonary at bedside replacing #4 Shiley uncuffed fenestrated tube with no difficulties. Patient is able to tolerate oral intake although would strongly recommend aspiration with cautions as patient is high risk. Continue with head of the bed elevated 30 to 45 degrees at all times. Case management following continue to await insurance authorization from possible inpatient rehab versus ECF. Patient would benefit greatly from inpatient rehab. Encouraged increased activity as tolerated. Will continue tracheostomy with no plans of decannulation at this time. Review of systems: Constitutional: No reports of fatigue, fever, or chills Cardiovascular: No reports of chest pain or palpitations Respiratory: No reports of shortness of breath or cough GI: No reports of nausea, vomiting, or diarrhea : No reports of dysuria or retention Neurovascular: reports of generalized weakness All medications have been reviewed Physical exam: Gen: This is a 54-year-old female who is awake, alert and oriented x 2-3, baseline, thin built, elderly appearing HEENT: Head is atraumatic, normocephalic. Pupils equal, round. Sclerae is anicteric. NECK: Supple. No JVD. No lymphadenopathy. No thyromegaly. LUNGS: Diminished breath sounds bilaterally with some coarse scattered rhonchi. No intercostal retractions. HEART: S1, S2 are muffled ABDOMEN: Soft. Thin. Bowel sounds are present. No masses. No tenderness. PEG tube noted EXTREMITIES: No pedal edema. No calf tenderness. NEUROLOGICAL: Patient is awake, alert and oriented x2-3. Cranial nerves 2 through 12 are grossly intact. Diffusely weak Assessment: Surgical wound dehiscence of the thoracic spine wound, status post debridement prior to discharge last month. S/p surgical excisional debridement and irrigation on 12/05/2024 status post tracheostomy on trach collar and PEG tube placement Acute on chronic hypoxic respiratory failure Mild acute COPD exacerbation Seizure disorder CHF Chronic hypoxic hypercapnic respiratory failure Hypertension Hyperlipidemia Hypothyroidism Seizure disorder History of DVT Chronic anemia Rectal prolapse Depression and PTSD GI prophylaxis DVT prophylaxis Full code Plan: Patient's status post excisional debridement of the thoracic spine infected wound. Follow-up wound culture with infectious disease following maintained on cefepime and vancomycin. Vanco trough elevated at 33 and vancomycin being discontinued. Currently awaiting finalized cultures to determine discharge antibiotics. Cultures thus far negative Orthopedics following recommending to continue with local wound care continue with oxygen therapy and tracheostomy care with frequent suctioning. Apparently per nursing staff patient pulled tracheostomy cannula out and is status post replacement with #4 Shiley fenestrated uncuffed with pulmonary at bedside. No plans of D cannulization at this time and tracheostomy tube is to remain in place. Continue with bronchodilator as needed Patient was evaluated by speech maintained on dysphagia diet and tolerating well. Continue with aspiration precautions with supervision with meals and head of the bed elevated 30 to 45 degrees at all times. Patient is extremely high risk for aspiration Encouraged increase activity as tolerated with getting up in the chair more frequently Hemoglobin improved status post 1 unit of PRBC and is 9.2 today. Follow-up on repeat labs and replace electrolytes per protocol Patient on multiple seizure medication, Keppra (brivaracetam is nonformulary) and gabapentin and Topamax Continue with prednisone 10 mg daily to finish the taper, finish the taper Case management following working on discharge planning and looking into possible inpatient rehab in [facility] Due to multiple complex medical issues, overall prognosis is guarded The impression and plan of care has been dictated by Kristina Wells, Nurse Practitioner as directed. Dr. Dick MD I have performed a history and examination and MDM of this patient, discussed the same with the dictator, and agree with the dictator's assessment and plan as written ,documented as a scribe. Based on total visit time, I have performed more than 50% of the visit. Objective - Vital Signs Vital signs: Vital Signs Temp 97.9 F 12/08/24 07:30 Pulse 83 12/08/24 07:30 Resp 17 12/08/24 07:30 BP 150/89 12/08/24 07:30 Pulse Ox 100 12/08/24 07:30 FiO2 28 12/08/24 00:08 Intake & Output 12/07/24 12/08/24 12/08/24 18:59 06:59 18:59 Intake Total 310 Output Total 1500 1300 Balance -1500 -990 Weight 45.5 kg Intake: Blood Product 310 Rc As-1 Unit 310 [id number] Output: Urine 1500 1300 Other: Voiding Method Indwelling Catheter Indwelling Catheter Indwelling Catheter # Bowel Movements 1 - Labs CBC & Chem 7: 12/08/24 07:16 12/09/24 04:28 Labs: Abnormal Lab Results - Last 24 Hours (Table) 12/07/24 12/08/24 Range/Units 23:12 07:16 Sodium 134 L (137-145) mmol/L BUN 29 H (7-17) mg/dL Magnesium 1.4 L (1.6-2.3) mg/dL Crossmatch See Detail Microbiology - Last 24 Hours (Table) 12/04/24 14:17 Blood Culture - Preliminary Blood 12/05/24 15:05 Anaerobic Culture - Preliminary Other - Other 12/05/24 15:05 Gram Stain - Preliminary Other - Other Wound Culture - Preliminary
--- NOTE | 2024-12-09 13:32 | P.PN ---
Progress Note - Text Progress Note Date: 12/09/24 Patient was seen at bedside this morning lying the semirecumbent position with dressing present over lumbar spine. Dressing changed at bedside. Incision appears to be healing well. Cultures negative so far. Infectious disease on. Continue with supportive care, pain control GI/DVT prophylaxis. Encourage ambulation PT/OT daily increase strength and ambulation. Maintain wound clean and dry. Leave stitches in for at least 14 to 21 days. Patient stable for an orthopedic standpoint for discharge. [facility] signing off at this time. Defer the rest of the management to the primary medical team. Please do not hesitate to contact us for any further questions. Patient to follow-up in office in [address] Mchugh.
--- NOTE | 2024-12-09 15:55 | P.PN ---
Subjective Progress Note Date: 12/09/24 Principal diagnosis: Reason for follow-up is thoracic spine incision dehiscence Patient is a 54-year-old female with a past medical history significant for Asthma, Heart Failure, COPD, Deep Vein Thrombosis (DVT), Eye Disorder, Fibromyalgia, GERD/Reflux, Hyperlipidemia, Hypertension, Memory Impairment, Myocardial Infarction (AL), Osteoarthritis (OA), Pneumonia, Seizure Disorder, Skin Disorder, Syncope, Thyroid Disorder, multiple surgeries on the thoracic spine with readmission to the hospital concerning for wound dehiscence.Patient is status post irrigation and excisional requirement of the thoracolumbar spine wound, with removal of the skin soft tissue and subcu muscle as well as cultures obtained on 12/05/2024 On today's evaluation that is 12/09/2024, the patient continues to be afebrile, the patient is on 4 L trach collar and breathing comfortably, the Pt denies having any chest pain or any worsening cough, the patient denies having any abdominal pain no vomiting or any diarrhea, patient mention feeling better wants to go home no new labs has been obtained today culture has been negative so far Objective - Vital Signs Vital signs: Vital Signs Temp 98.5 F 12/09/24 07:34 Pulse 80 12/09/24 09:49 Resp 17 12/09/24 07:34 BP 118/85 12/09/24 07:34 Pulse Ox 96 12/09/24 07:34 FiO2 28 12/09/24 09:24 Intake & Output 12/08/24 12/09/24 12/09/24 18:59 06:59 18:59 Intake Total 1060 Output Total 4025 1100 Balance -4025 -40 Weight 45.5 kg Intake: Oral 1060 Output: Urine 4025 1100 Other: Voiding Method Indwelling Catheter Indwelling Catheter Indwelling Catheter - Exam GENERAL DESCRIPTION: Middle-age female lying in bed in no distress RESPIRATORY SYSTEM: Unlabored breathing , clear auscultation anteriorly HEART: S1 S2 regular rate and rhythm , ABDOMEN: Soft , no tenderness Mid back incision is intact no swelling redness - Labs CBC & Chem 7: 12/08/24 07:16 12/09/24 04:28 Labs: Microbiology - Last 24 Hours (Table) 12/05/24 15:03 Gram Stain - Preliminary Other - Other Wound Culture - Preliminary 12/05/24 15:05 Gram Stain - Preliminary Other - Other Wound Culture - Preliminary 12/05/24 15:03 Anaerobic Culture - Preliminary Other - Other Assessment and Plan (1) Postoperative wound dehiscence Current Visit: Yes Status: Acute Code(s): T81.31XA - DISRUPTION OF EXTERNAL OPERATION (SURGICAL) WOUND, NEC, INIT SNOMED Code(s): 315013332 Plan: 1patient with a complicated history of multiple surgery to the thoracic spine recently subsequently did have a admission to the hospital with acute respiratory failure and Pseudomonas pneumonia now being presented to the hospital with a wound dehiscence to the mid thoracic spine which seem to be deep, underlying infection not entirely excluded keeping in mind the patient has been in and out of the hospital will need to cover for resistant gram-positive's and gram-negative pathogen 2blood culture has been obtained ESR mildly elevated at 37 3patient is status post surgical debridement cultures are so far negative, currently being treated with vancomycin pharmacy to dose and cefepime, with a culture negative so far not recommending any PICC line or IV antibiotics on discharge Dictation was produced using [employer] dictation software. please excuse any grammatical, word or spelling errors. Time with Patient: Less than 30
--- NOTE | 2024-12-09 17:33 | P.PN ---
Subjective Progress Note Date: 12/09/24 On 12/05/2024, patient is being seen in consultation for COPD and complications of a previous thoracolumbar wound dehiscence. The patient has advanced COPD and she is chronically debilitated due to various other comorbidities which include coronary artery disease, hypertension, hyperlipidemia, hypothyroidism, seizure disorder, chronic anxiety/depression/PTSD. Noted the patient had back pain with progressive neurologic deficits due to cervical myelopathy and neck pain with upper and lower extremity weakness. The patient underwent a C3-7 ACDF for severe spondylosis, deformity and stenosis in addition to bilateral laminectomy and partial medial facetectomy and foraminotomy and his initial surgery was done on 07/15/2023. Subsequently, the patient was found to have a T2 vertebral body fracture with distal junctional failure of C2-T2 decompression and fusion. The patient also had a T2-T3 severe kyphosis. The patient underwent an open T2 vertebral body treatment with T2-3 osteotomy for deformity correction and posterior lateral and interbody fusion and revision of the C2-T7 posterolateral instrumented fusion and insertion of a biomechanical device T2-3, cage #1. Subsequently, the patient was taken again to the operating room on 10/27/2024 for dehiscence of the thoracic spine wound and a T8 burst compression fracture with kyphotic deformity. The patient at that time underwent open treatment of T8 fracture and irrigation excisional debridement of the thoracic spine wound and cement augmentation of T8, T9 and T10 vertebral bodies. Postop, the patient presented to us to the emergency room with respiratory failure, obtunded, responsive and she had to be intubated. She remained on the mechanical ventilator and she failed to wean as the patient is known to have advanced COPD. During the course of her illness, she was tested positive for Pseudomonas aeruginosa in her lungs. She was treated accordingly. Ultimately, the patient underwent a tracheostomy tube insertion, she was weaned off to mechanical ventilator and she was liberated from the mechanical ventilator. She was di scharged to an [facility] and following that, she was transferred to [facility] for his ongoing wound dehiscence. Based on that, the patient was transferred back to our facility for further care. CAT scan of the spine demonstrated extensive surgical changes of the thoracolumbar spine with pedicle screws and interbody rods. Small foci of subcutaneous air in the soft tissue was present posterior to T10, T12 and L1. The patient was afebrile the patient was hemodynamically stable. Normal renal function. Based on that, the patient will be taken again to the operating room for irrigation and excisional debridement of the wound. For now, the patient was restarted on vancomycin cefepime and Diflucan. She has PEG tube for enteral feeding and nutritional support. She remains on 10 mg of prednisone. The patient is currently on 28% trach collar, 5 L of oxygen with a pulse ox of 98%. The patient's white cell count is at 7.8 with a hemoglobin 7.5 and a platelet count of 356. Sodium is at 137, potassium is at 3.4, BUN is 14 with a creatinine of 0.6. Serum calcium level is at 8.4. The patient remains on DuoNeb nebulized treatments [id number]. The patient is on a combination of Perforomist and Pulmicort nebulized treatments twice a day. The patient is on a maintenance prednisone of 10 mg p.o. daily regarding her advanced COPD. The chest x-ray from 11/30/2024 shows COPD without any acute abnormalities. Hemodynamically stable. On 12/06/2024, the patient is being seen for a follow-up. The patient is resting comfortably in bed. She has a #4 Shiley fenestrated tracheostomy tube and she is able to talk and she has a speaking valve. No respiratory distress. She is able to swallow and she is not utilizing her PEG tube. She underwent x-ray with debridement and irrigation of the thoracolumbar wound. She remains on IV cefepime and Diflucan. Respiratory status is stable. No significant cough sputum production chest tightness or wheezing. She is quite weak and debilit ated. Nevertheless, she is awake and alert and communicating. Spine surgery is on the case. ID is also on the case. Pending wound cultures. No other significant events overnight. On 12/07/2024, the patient is being seen for a follow-up. The patient is calm and comfortable and she has no specific complaints. She wanted to have her tracheostomy tube decannulated. However, I explained to her at length that this is not the right time to have her tracheostomy decannulated. Her respiratory status is stable. Nevertheless, we needed a secure airway should she need any further surgical intervention regarding her thoracolumbar wound. She is on a 28% trach collar and she is calm and comfortable. No significant respiratory secretions. Chest x-ray was noted from today and the patient has some mild interstitial densities without any acute airspace disease or consolidation. Tracheostomy tube is in a good location. Otherwise, no other new complaints. She remains on broad-spectrum antibiotics. Cultures are still pending. She remains on a combination of cefepime vancomycin and Diflucan. Hemodynamically stable. Blood work shows a white cell count of 7, hemoglobin of 7.1 and a plate let count of 305. BUN is 20 with a creatinine 0.9 and a sodium levels at 139, potassium is at 3.0 that needs to be replaced. ID is also on the case. On 12/08/2024, the patient has no new complaints. She does have some loose respiratory secretions that she is able to cough out. Her tracheostomy tube accidentally fell out. I had to reinsert the tube back again and she was given a new number for fenestrated Shiley tracheostomy tube and the insertion was done without any major difficulties. The white cell count is at 9.6 with a hemoglobin 9.8 and a platelet count of 305. Sodium is 134, BUN 29 with a creatinine of 0.9. Potassium level is at 3.8. Medications remain unchanged. She remains on bronchodilators. She remains on antibiotics and she remains also on Lovenox for DVT prophylaxis. She remains on cefepime, and vancomycin. ID is on the case. The surgical wound site over the thoracolumbar area is dry clean and intact. The patient is tolerating her diet. No new complaints. 12/09/2024, the patient is resting comfortably in bed. Tracheostomy tube is still in good location. Some loose respiratory secretions. No other new complaints otherwise. She is on IV antibiotics. No other significant events overnight. Hemodynamically stable. Orthopedic surgery is on the case. Surgical wound site is covered with appropriate dressing. Objective - Vital Signs Vital signs: Vital Signs Temp 98.5 F 12/09/24 07:34 Pulse 80 12/09/24 12:43 Resp 17 12/09/24 07:34 BP 118/85 12/09/24 07:34 Pulse Ox 96 12/09/24 07:34 FiO2 28 12/09/24 09:24 Intake & Output 12/08/24 12/09/24 12/09/24 18:59 06:59 18:59 Intake Total 1060 Output Total 4025 1100 Balance -4025 -40 Weight 45.5 kg Intake: Oral 1060 Output: Urine 4025 1100 Other: Voiding Method Indwelling Catheter Indwelling Catheter Indwelling Catheter - Exam GENERAL EXAM: Awake, pleasant 54-year-old female, resting comfortably, on 28% FiO2 via trach collar, in no apparent distress. HEAD: Normocephalic. EYES: Normal reaction of pupils, equal size. NOSE: Clear with pink turbinates. THROAT: Tracheostomy tube secured in place. No erythema or exudates. NECK: No masses, no JVD. CHEST: No chest wall deformity. LUNGS: Equal air entry with no crackles, wheeze, rhonchi or dullness. CVS: S1 and S2 normal with no audible murmur, regular rhythm. ABDOMEN: PEG tube exit site clean and dry. No hepatosplenomegaly, normal bowel sounds, no guarding or rigidity. SPINE: No scoliosis or deformity CENTRAL NERVOUS SYSTEM: No noted focal deficit, tone is normal in all 4 extremities. Patient does have good range of motion throughout bilateral upper and lower extremities on exam. 4/5 in all major motor groups in bilateral upper and lower extremities. Radial pulse intact bilaterally. Negative Homans, Suhas, clonus bilaterally. EXTREMITIES: There is no peripheral edema. No clubbing, no cyanosis. Peripheral pulses are intact. Skin A 10 cm wound dehiscence on thoracolumbar spine. Negative for any active drainage. Negative for any significant ecchymosis or erythema. Sensation is equal, symmetric, bilateral intact throughout the upper and lower extremities. There is some generalized tenderness to patient throughout the spine on exam. Nontender on rest of exam. - Labs CBC & Chem 7: 12/08/24 07:16 12/09/24 04:28 Labs: Microbiology - Last 24 Hours (Table) 12/05/24 15:03 Gram Stain - Preliminary Other - Other Wound Culture - Preliminary 12/05/24 15:05 Gram Stain - Preliminary Other - Other Wound Culture - Preliminary 12/05/24 15:03 Anaerobic Culture - Preliminary Other - Other Assessment and Plan Plan: Thoracolumbar wound dehiscence awaiting surgical irrigation and excisional de bridement by spine surgery. Patient is currently covered with broad-spectrum antibiotics including cefepime, vancomycin and Diflucan. Hemodynamically stable. Afebrile. The patient is postop day # 4 awaiting cultures. Covered with a combination of cefepime, vancomycin. ID is on the case. Advanced COPD, status post tracheostomy tube insertion for failure to wean off the mechanical ventilator. The patient is currently on 28% trach collar. Chronic hypoxemic respiratory failure, remains on 28% trach collar Chronic dyspnea secondary to above Multiple spine surgeries including - T8 fracture. The patient was discharged from the hospital following surgery on 10/27/2024 for open treatment of a T8 fracture, irrigation and excisional debridement of thoracic spine wound measuring 10 x 7 x 4 cm, posterior lateral instrumented fusion of T7-T11 and cement augmentation of T8-T10 vertebral varun dies. - T2 vertebral fracture with revision of C2-T7 posterior lateral fusion on 09/09/2024 - C3-7 ACDF for severe spondylosis, deformity and stenosis in addition to bilateral laminectomy and partial medial facetectomy and foraminotomy and his initial surgery was done on 07/15/2023 Surgical site infection and wound dehiscence, wound and blood cultures revealed no growth Acute leukocytosis, improved Macrocytic anemia Rectal prolapse with bleeding History of hypertension History of hyperlipidemia History of coronary artery disease History of heart failure with preserved ejection fraction History of gastroesophageal reflux disease History of seizure disorder History of hypothyroidism History of anxiety/depression/PTSD Plan Respiratory status remains stable and the patient remains on 28% trach collar Overall respiratory status remains stable. The patient is not a candidate for tracheostomy tube decannulation at this point in time. She is stable and the tracheostomy tube needs to be kept in place. The tracheostomy tube was exchanged today as the previous insert the tube accidentally fell out The patient is #4 fenestrated Shiley tracheostomy tube and she is able to talk and converse Continue DuoNeb inhalations Continue a prednisone currently on 10 mg dose maintenance Continue DuoNeb updrafts Continue Pulmicort and Perforomist inhalations Broad-spectrum antibiotic coverage with a combination of cefepime vancomycin , awaiting wound cultures post irrigation and incisional debridement Lovenox for DVT prophylaxis Advance oral diet as tolerated Chest x-ray was noted Awaiting final recommendations from ID and spine surgery regarding her discharge and long-term care. This will include also antibiotic therapy.
--- NOTE | 2024-12-10 07:41 | P.PN ---
Subjective Progress Note Date: 12/09/24 This is a pleasant 54 years old female with past medical history of multiple medical problems. Including recent hospitalization to this facility about a month ago for similar problem of infected surgical site at the back. Patient was sent from her [facility] for open surgical wound in the middle of her back. Patient was in this facility about a month ago for similar problem. Also she is a known case of tracheostomy she says she is on 4 L oxygen via trach collar. She denies chest pain. No significant dyspnea but she is on exam she still have some wheezing. She required 5 L slightly more of oxygen than her baseline She has pain in the middle of the back where she has open wound with no surrounding cellulitis Also she is s/p tube but no abdominal pain or tenderness. No urinary complaint. No headache dizziness. She is generally weak She denies smoking alcohol or illicit drugs. 12/05 Patient also on seizure medication brivaracetam which is not formulary in this hospital and it is switched to Keppra 500 mg twice daily. Also on gabapentin and Topamax. Patient was still complaining from back pain. Patient underwent excisional debridement of the thoracolumbar infected surgical wound. She was mildly tachypneic requiring 5 to 6 L of oxygen more than baseline of 4 L/min. Via trach collar Currently patient is still covered with antibiotic IV vancomycin and IV cefepime pending culture results 12/06/2024 Patient is seen in follow-up today currently sitting up in the chair working with physical therapy and case management following looking to possible inpatient rehab. Multiple consultations following including orthopedics and infectious disease maintained on antibiotics awaiting cultures to determine appropriate antibiotics on discharge. Patient continues to have tracheostomy and was evaluated by speech maintained on dysphagia diet. Patient does have a legal guardian and working on discharge planning. Patient is afebrile and white count is normal at this time. Patient is asking if her tracheostomy has been removed. 12/07/2024 Patient is seen in follow-up today awaiting cultures to determine discharge antibiotics with infectious disease and orthopedics following. Case management also following working on inpatient rehab possibly in [place] or [facility] and will require insurance authorization. Patient is tolerating diet and would continue on aspiration precautions and supervision with meals. Patient is afebrile and denies chest pain or shortness of breath. Continue with local wound care per orthopedics and infectious disease. Hemoglobin is 7.1 today and will transfuse 1 unit of PRBC. Follow-up on repeat labs in AM. 12/08/2024 Patient is seen in follow-up and apparently took her tracheostomy cannula out per nursing staff. Pulmonary at bedside replacing #4 Shiley uncuffed fenestrated tube with no difficulties. Patient is able to tolerate oral intake although would strongly recommend aspiration with cautions as patient is high risk. Continue with head of the bed elevated 30 to 45 degrees at all times. Case management following continue to await insurance authorization from possible inpatient rehab versus ECF. Patient would benefit greatly from inpatient rehab. Encouraged increased activity as tolerated. Will continue tracheostomy with no plans of decannulation at this time. 12/09/2024 Patient is seen in follow-up with no acute overnight issues noted. Patient being followed by multiple consultations maintained on antibiotics and per ID will not require IV antibiotics on discharge as cultures thus far remain negative. Continue local wound care per orthopedics of the back. Case management following making arrangements for discharge planning. Patient has been denied inpatient rehab and will likely be returning to [facility] for continued care. Patient requires insurance authorization which is pending at this time. Patient does have a legal guardian. Review of systems: Constitutional: No reports of fatigue, fever, or chills Cardiovascular: No reports of chest pain or palpitations Respiratory: No reports of shortness of breath or cough GI: No reports of nausea, vomiting, or diarrhea : No reports of dysuria or retention Neurovascular: reports of generalized weakness All medications have been reviewed Physical exam: Gen: This is a 54-year-old female who is awake, alert and oriented x 2-3, baseline, thin built, elderly appearing HEENT: Head is atraumatic, normocephalic. Pupils equal, round. Sclerae is anicteric. NECK: Supple. No JVD. No lymphadenopathy. No thyromegaly. LUNGS: Diminished breath sounds bilaterally with some coarse scattered rhonchi. No intercostal retractions. HEART: S1, S2 are muffled ABDOMEN: Soft. Thin. Bowel sounds are present. No masses. No tenderness. PEG tube noted EXTREMITIES: No pedal edema. No calf tenderness. NEUROLOGICAL: Patient is awake, alert and oriented x2-3. Cranial nerves 2 through 12 are grossly intact. Diffusely weak Assessment: Surgical wound dehiscence of the thoracic spine wound, status post debridement prior to discharge last month. S/p surgical excisional debridement and irrigation on 12/05/2024 status post tracheostomy on trach collar and PEG tube placement Acute on chronic hypoxic respiratory failure Mild acute COPD exacerbation Seizure disorder CHF Chronic hypoxic hypercapnic respiratory failure Hypertension Hyperlipidemia Hypothyroidism Seizure disorder History of DVT Chronic anemia Rectal prolapse Depression and PTSD GI prophylaxis DVT prophylaxis Full code Plan: Patient's status post excisional debridement of the thoracic spine infected wound. Follow-up wound culture with infectious disease following maintained on cefepime and vancomycin. Vanco trough elevated at 33 and vancomycin being discontinued. Currently awaiting finalized cultures to determine discharge antibiotics. Cultures thus far negative Orthopedics following recommending to continue with local wound care. Per ID recommendations, likely no antibiotics on discharge as cultures remain negative continue with oxygen therapy and tracheostomy care with frequent suctioning. Currently has #4 Shiley fenestrated uncuffed. No plans of D cannulization at this time and tracheostomy tube is to remain in place. Continue with bronchodilator as needed Patient was evaluated by speech maintained on dysphagia diet and tolerating well. Continue with aspiration precautions with supervision with meals and head of the bed elevated 30 to 45 degrees at all times. Patient is extremely high risk for aspiration Encouraged increase activity as tolerated with getting up in the chair more frequently Follow-up on repeat labs and replace electrolytes per protocol Patient on multiple seizure medication, Keppra (brivaracetam is nonformulary) and gabapentin and Topamax and will continue Keppra in the hospital Continue with prednisone 10 mg daily to finish the taper, finish the taper Case management following working on discharge planning and was looking into possible inpatient rehab in [place] or [facility] although have been denied and patient will likely return to [facility]. Patient requires insurance Auth which has been submitted and pending Due to multiple complex medical issues, overall prognosis is guarded The impression and plan of care has been dictated by Kristina Wells, Nurse Practitioner as directed. Dr. Dick MD I have performed a history and examination and MDM of this patient, discussed the same with the dictator, and agree with the dictator's assessment and plan as written ,documented as a scribe. Based on total visit time, I have performed more than 50% of the visit. Objective - Vital Signs Vital signs: Vital Signs Temp 98.5 F 12/09/24 07:34 Pulse 80 12/09/24 12:43 Resp 17 12/09/24 07:34 BP 118/85 12/09/24 07:34 Pulse Ox 96 12/09/24 07:34 FiO2 28 12/09/24 09:24 Intake & Output 12/08/24 12/09/24 12/09/24 18:59 06:59 18:59 Intake Total 1060 Output Total 4025 1100 Balance -4025 -40 Weight 45.5 kg Intake: Oral 1060 Output: Urine 4025 1100 Other: Voiding Method Indwelling Catheter Indwelling Catheter Indwelling Catheter - Labs CBC & Chem 7: 12/08/24 07:16 12/09/24 04:28 Labs: Microbiology - Last 24 Hours (Table) 12/05/24 15:03 Gram Stain - Preliminary Other - Other Wound Culture - Preliminary 12/05/24 15:05 Gram Stain - Preliminary Other - Other Wound Culture - Preliminary 12/05/24 15:03 Anaerobic Culture - Preliminary Other - Other
[2024-12-10 09:43] LABS: Basophils # (A) 0.05 X 10*3/uL (0.00-0.10); Basophils % (A) 0.6 %; Eosinophils # (A) 0.46 X 10*3/uL (0.04-0.35); Eosinophils % (A) 5.1 %; HCT 28.8 % (37.2-46.3); HGB 8.8 g/dL (12.0-15.0); Lymphocytes # (A) 1.74 X 10*3/uL (0.90-5.00); Lymphocytes % (A) 19.3 %; MCHC 30.6 g/dL (32.0-37.0); MCV 98.3 FL (80.0-97.0); Mean Platelet Volume 9.9 FL (9.5-12.2); Monocytes # (A) 0.84 X 10*3/uL (0.20-1.00); Monocytes % (A) 9.3 %; NRBC Per 100 WBC 0 X 10*3/uL (0.00-0.01); Neutrophils # (A) 5.84 X 10*3/uL (1.80-7.70); Neutrophils % (A) 64.7 %; Platelet Count 331 X 10*3/uL (140-440); RBC 2.93 X 10*6/uL (4.10-5.20); RDW 18.2 % (11.5-14.5); WBC 9.02 X 10*3/uL (4.50-10.00)
[2024-12-10 09:48] LABS: BUN/Creat Ratio 36.88 Ratio (12.00-20.00); Blood Urea Nitrogen 29.5 mg/dL (9.0-27.0); Calcium 8.8 mg/dL (8.7-10.3); Carbon Dioxide 26.2 mmol/L (21.6-31.8); Chloride 103 mmol/L (96-109); Glucose 98 mg/dL (70-110); Magnesium 1.8 mg/dL (1.5-2.4); Potassium 4.6 mmol/L (3.5-5.5); Sodium 138 mmol/L (135-145)
--- NOTE | 2024-12-10 14:55 | P.PN ---
Subjective Progress Note Date: 12/10/24 Principal diagnosis: Reason for follow-up is thoracic spine incision dehiscence Patient is a 54-year-old female with a past medical history significant for Asthma, Heart Failure, COPD, Deep Vein Thrombosis (DVT), Eye Disorder, Fibromyalgia, GERD/Reflux, Hyperlipidemia, Hypertension, Memory Impairment, Myocardial Infarction ([place]), Osteoarthritis (OA), Pneumonia, Seizure Disorder, Skin Disorder, Syncope, Thyroid Disorder, multiple surgeries on the thoracic spine with readmission to the hospital concerning for wound dehiscence.Patient is status post irrigation and excisional requirement of the thoracolumbar spine wound, with removal of the skin soft tissue and subcu muscle as well as cultures obtained on 12/05/2024 On today's evaluation that is 12/10/2024, patient did not have any fever and denies any chills, patient is breathing comfortably on trach collar, patient slightly sleepy today he did not answer any question no vomiting or diarrhea has been reported. Patient white count 9.02, creatinine 0.8 culture remains to be negative Objective - Vital Signs Vital signs: Vital Signs Temp 98.4 F 12/10/24 06:49 Pulse 84 12/10/24 12:23 Resp 18 12/10/24 06:49 BP 116/69 12/10/24 06:49 Pulse Ox 96 12/10/24 06:49 FiO2 28 12/10/24 09:17 Intake & Output 12/09/24 12/10/24 12/10/24 18:59 06:59 18:59 Output Total 450 Balance -450 Weight 32 kg Output: Urine 450 Other: Voiding Method Indwelling Catheter Indwelling Catheter # Voids 2 # Bowel Movements 1 - Exam GENERAL DESCRIPTION: Middle-age female lying in bed in no distress RESPIRATORY SYSTEM: Unlabored breathing , clear auscultation anteriorly HEART: S1 S2 regular rate and rhythm , ABDOMEN: Soft , no tenderness Mid back incision is intact no swelling redness - Labs CBC & Chem 7: 12/10/24 05:59 12/10/24 05:59 Labs: Abnormal Lab Results - Last 24 Hours (Table) 12/10/24 12/10/24 Range/Units 05:59 05:59 RBC 2.93 L (4.10-5.20) X 10*6/uL Hgb 8.8 L (12.0-15.0) g/dL Hct 28.8 L (37.2-46.3) % MCV 98.3 H (80.0-97.0) FL MCHC 30.6 L (32.0-37.0) g/dL RDW 18.2 H (11.5-14.5) % Immature Gran # 0.09 H (0.00-0.04) X 10*3/uL Eosinophils # 0.46 H (0.04-0.35) X 10*3/uL BUN 29.5 H (9.0-27.0) mg/dL BUN/Creatinine Ratio 36.88 H (12.00-20.00) Ratio Microbiology - Last 24 Hours (Table) 12/04/24 14:17 Blood Culture - Final Blood 12/05/24 15:03 Anaerobic Culture - Final Other - Other 12/05/24 15:05 Anaerobic Culture - Final Other - Other 12/05/24 15:05 Gram Stain - Final Other - Other Wound Culture - Final 12/05/24 15:03 Gram Stain - Final Other - Other Wound Culture - Final Assessment and Plan (1) Postoperative wound dehiscence Current Visit: Yes Status: Acute Code(s): T81.31XA - DISRUPTION OF EXTERNAL OPERATION (SURGICAL) WOUND, NEC, INIT SNOMED Code(s): 136389031 Plan: 1patient with a complicated history of multiple surgery to the thoracic spine recently subsequently did have a admission to the hospital with acute respiratory failure and Pseudomonas pneumonia now being presented to the hospital with a wound dehiscence to the mid thoracic spine which seem to be deep, underlying infection not entirely excluded keeping in mind the patient has been in and out of the hospital will need to cover for resistant gram-positive's and gram-negative pathogen 2blood culture has been obtained ESR mildly elevated at 37 3patient is status post surgical debridement cultures are so far negative, culture has been negative I will go ahead and discontinue cefepime and vancomycin and monitor the patient closely off antibiotic Dictation was produced using [employer] dictation software. please excuse any grammatical, word or spelling errors. Time with Patient: Less than 30
--- NOTE | 2024-12-10 15:25 | P.PN ---
Subjective Progress Note Date: 12/10/24 On 12/05/2024, patient is being seen in consultation for COPD and complications of a previous thoracolumbar wound dehiscence. The patient has advanced COPD and she is chronically debilitated due to various other comorbidities which include coronary artery disease, hypertension, hyperlipidemia, hypothyroidism, seizure disorder, chronic anxiety/depression/PTSD. Noted the patient had back pain with progressive neurologic deficits due to cervical myelopathy and neck pain with upper and lower extremity weakness. The patient underwent a C3-7 ACDF for severe spondylosis, deformity and stenosis in addition to bilateral laminectomy and partial medial facetectomy and foraminotomy and his initial surgery was done on 07/15/2023. Subsequently, the patient was found to have a T2 vertebral body fracture with distal junctional failure of C2-T2 decompression and fusion. The patient also had a T2-T3 severe kyphosis. The patient underwent an open T2 vertebral body treatment with T2-3 osteotomy for deformity correction and posterior lateral and interbody fusion and revision of the C2-T7 posterolateral instrumented fusion and insertion of a biomechanical device T2-3, cage #1. Subsequently, the patient was taken again to the operating room on 10/27/2024 for dehiscence of the thoracic spine wound and a T8 burst compression fracture with kyphotic deformity. The patient at that time underwent open treatment of T8 fracture and irrigation excisional debridement of the thoracic spine wound and cement augmentation of T8, T9 and T10 vertebral bodies. Postop, the patient presented to us to the emergency room with respiratory failure, obtunded, responsive and she had to be intubated. She remained on the mechanical ventilator and she failed to wean as the patient is known to have advanced COPD. During the course of her illness, she was tested positive for Pseudomonas aeruginosa in her lungs. She was treated accordingly. Ultimately, the patient underwent a tracheostomy tube insertion, she was weaned off to mechanical ventilator and she was liberated from the mechanical ventilator. She was di scharged to an [facility] and following that, she was transferred to [facility] for his ongoing wound dehiscence. Based on that, the patient was transferred back to our facility for further care. CAT scan of the spine demonstrated extensive surgical changes of the thoracolumbar spine with pedicle screws and interbody rods. Small foci of subcutaneous air in the soft tissue was present posterior to T10, T12 and L1. The patient was afebrile the patient was hemodynamically stable. Normal renal function. Based on that, the patient will be taken again to the operating room for irrigation and excisional debridement of the wound. For now, the patient was restarted on vancomycin cefepime and Diflucan. She has PEG tube for enteral feeding and nutritional support. She remains on 10 mg of prednisone. The patient is currently on 28% trach collar, 5 L of oxygen with a pulse ox of 98%. The patient's white cell count is at 7.8 with a hemoglobin 7.5 and a platelet count of 356. Sodium is at 137, potassium is at 3.4, BUN is 14 with a creatinine of 0.6. Serum calcium level is at 8.4. The patient remains on DuoNeb nebulized treatments [id number]. The patient is on a combination of Perforomist and Pulmicort nebulized treatments twice a day. The patient is on a maintenance prednisone of 10 mg p.o. daily regarding her advanced COPD. The chest x-ray from 11/30/2024 shows COPD without any acute abnormalities. Hemodynamically stable. On 12/06/2024, the patient is being seen for a follow-up. The patient is resting comfortably in bed. She has a #4 Shiley fenestrated tracheostomy tube and she is able to talk and she has a speaking valve. No respiratory distress. She is able to swallow and she is not utilizing her PEG tube. She underwent x-ray with debridement and irrigation of the thoracolumbar wound. She remains on IV cefepime and Diflucan. Respiratory status is stable. No significant cough sputum production chest tightness or wheezing. She is quite weak and debilit ated. Nevertheless, she is awake and alert and communicating. Spine surgery is on the case. ID is also on the case. Pending wound cultures. No other significant events overnight. On 12/07/2024, the patient is being seen for a follow-up. The patient is calm and comfortable and she has no specific complaints. She wanted to have her tracheostomy tube decannulated. However, I explained to her at length that this is not the right time to have her tracheostomy decannulated. Her respiratory status is stable. Nevertheless, we needed a secure airway should she need any further surgical intervention regarding her thoracolumbar wound. She is on a 28% trach collar and she is calm and comfortable. No significant respiratory secretions. Chest x-ray was noted from today and the patient has some mild interstitial densities without any acute airspace disease or consolidation. Tracheostomy tube is in a good location. Otherwise, no other new complaints. She remains on broad-spectrum antibiotics. Cultures are still pending. She remains on a combination of cefepime vancomycin and Diflucan. Hemodynamically stable. Blood work shows a white cell count of 7, hemoglobin of 7.1 and a plate let count of 305. BUN is 20 with a creatinine 0.9 and a sodium levels at 139, potassium is at 3.0 that needs to be replaced. ID is also on the case. On 12/08/2024, the patient has no new complaints. She does have some loose respiratory secretions that she is able to cough out. Her tracheostomy tube accidentally fell out. I had to reinsert the tube back again and she was given a new number for fenestrated Shiley tracheostomy tube and the insertion was done without any major difficulties. The white cell count is at 9.6 with a hemoglobin 9.8 and a platelet count of 305. Sodium is 134, BUN 29 with a creatinine of 0.9. Potassium level is at 3.8. Medications remain unchanged. She remains on bronchodilators. She remains on antibiotics and she remains also on Lovenox for DVT prophylaxis. She remains on cefepime, and vancomycin. ID is on the case. The surgical wound site over the thoracolumbar area is dry clean and intact. The patient is tolerating her diet. No new complaints. 12/09/2024, the patient is resting comfortably in bed. Tracheostomy tube is still in good location. Some loose respiratory secretions. No other new complaints otherwise. She is on IV antibiotics. No other significant events overnight. Hemodynamically stable. Orthopedic surgery is on the case. Surgical wound site is covered with appropriate dressing. On 12/10/2024, the patient is resting comfortably in bed. Tracheostomy tube is in place. Secretions are scant. No significant respiratory distress. Cultures from the wound came back negative. The patient accordingly was taken off antibiotics. ID is on the case. White cell count is at 9 with a hemoglobin of 8.8 and a platelet count of 331. Electrolytes are all within normal limits. Troponins are negative. No new complaints otherwise for now. Objective - Vital Signs Vital signs: Vital Signs Temp 98.4 F 12/10/24 06:49 Pulse 88 12/10/24 09:31 Resp 18 12/10/24 06:49 BP 116/69 12/10/24 06:49 Pulse Ox 96 12/10/24 06:49 FiO2 28 12/10/24 09:17 Intake & Output 12/09/24 12/10/24 12/10/24 18:59 06:59 18:59 Output Total 450 Balance -450 Weight 32 kg Output: Urine 450 Other: Voiding Method Indwelling Catheter Indwelling Catheter # Voids 2 # Bowel Movements 1 - Exam GENERAL EXAM: Awake, pleasant 54-year-old female, resting comfortably, on 28% FiO2 via trach collar, in no apparent distress. HEAD: Normocephalic. EYES: Normal reaction of pupils, equal size. NOSE: Clear with pink turbinates. THROAT: Tracheostomy tube secured in place. No erythema or exudates. NECK: No masses, no JVD. CHEST: No chest wall deformity. LUNGS: Equal air entry with no crackles, wheeze, rhonchi or dullness. CVS: S1 and S2 normal with no audible murmur, regular rhythm. ABDOMEN: PEG tube exit site clean and dry. No hepatosplenomegaly, normal bowel sounds, no guarding or rigidity. SPINE: No scoliosis or deformity CENTRAL NERVOUS SYSTEM: No noted focal deficit, tone is normal in all 4 extremities. Patient does have good range of motion throughout bilateral upper and lower extremities on exam. 4/5 in all major motor groups in bilateral upper and lower extremities. Radial pulse intact bilaterally. Negative Homans, Suhas, clonus bilaterally. EXTREMITIES: There is no peripheral edema. No clubbing, no cyanosis. Peripheral pulses are intact. Skin A 10 cm wound dehiscence on thoracolumbar spine. Negative for any active drainage. Negative for any significant ecchymosis or erythema. Sensation is equal, symmetric, bilateral intact throughout the upper and lower extremities. There is some generalized tenderness to patient throughout the spine on exam. Nontender on rest of exam. - Labs CBC & Chem 7: 12/10/24 05:59 12/10/24 05:59 Labs: Abnormal Lab Results - Last 24 Hours (Table) 12/10/24 12/10/24 Range/Units 05:59 05:59 RBC 2.93 L (4.10-5.20) X 10*6/uL Hgb 8.8 L (12.0-15.0) g/dL Hct 28.8 L (37.2-46.3) % MCV 98.3 H (80.0-97.0) FL MCHC 30.6 L (32.0-37.0) g/dL RDW 18.2 H (11.5-14.5) % Immature Gran # 0.09 H (0.00-0.04) X 10*3/uL Eosinophils # 0.46 H (0.04-0.35) X 10*3/uL BUN 29.5 H (9.0-27.0) mg/dL BUN/Creatinine Ratio 36.88 H (12.00-20.00) Ratio Microbiology - Last 24 Hours (Table) 12/04/24 14:17 Blood Culture - Final Blood 12/05/24 15:03 Anaerobic Culture - Final Other - Other 12/05/24 15:05 Anaerobic Culture - Final Other - Other 12/05/24 15:05 Gram Stain - Final Other - Other Wound Culture - Final 12/05/24 15:03 Gram Stain - Final Other - Other Wound Culture - Final Assessment and Plan Plan: Thoracolumbar wound dehiscence awaiting surgical irrigation and excisional debridement by spine surgery. Patient is currently covered with broad-spectrum antibiotics including cefepime, vancomycin and Diflucan. Hemodynamically stable. Afebrile. The patient is postop day # 5 awaiting cultures. Antibiotics has been discontinued. Cultures are negative. Advanced COPD, status post tracheostomy tube insertion for failure to wean off the mechanical ventilator. The patient is currently on 28% trach collar. Chronic hypoxemic respiratory failure, remains on 28% trach collar Chronic dyspnea secondary to above Multiple spine surgeries including - T8 fracture. The patient was discharged from the hospital following surgery on 10/27/2024 for open treatment of a T8 fracture, irrigation and excisional debridement of thoracic spine wound measuring 10 x 7 x 4 cm, posterior lateral instrumented fusion of T7-T11 and cement augmentation of T8-T10 vertebral bodies. - T2 vertebral fracture with revision of C2-T7 posterior lateral fusion on 09/09/2024 - C3-7 ACDF for severe spondylosis, deformity and stenosis in addition to bilateral laminectomy and partial medial facetectomy and foraminotomy and his initial surgery was done on 07/15/2023 Surgical site infection and wound dehiscence, wound and blood cultures revealed no growth Acute leukocytosis, improved Macrocytic anemia Rectal prolapse with bleeding History of hypertension History of hyperlipidemia History of coronary artery disease History of heart failure with preserved ejection fraction History of gastroesophageal reflux disease History of seizure disorder History of hypothyroidism History of anxiety/depression/PTSD Plan Respiratory status remains stable and the patient remains on 28% trach collar Overall respiratory status remains stable. The patient is not a candidate for tracheostomy tube decannulation at this point in time. She is stable and the tracheostomy tube needs to be kept in place. The tracheostomy tube was exchanged today as the previous insert the tube accidentally fell out The patient is #4 fenestrated [place] tracheostomy tube and she is able to talk and converse Continue DuoNeb inhalations Continue a prednisone currently on 10 mg dose maintenance Continue DuoNeb updrafts Continue Pulmicort and Perforomist inhalations Discharge planning is in progress
--- NOTE | 2024-12-11 02:23 | PN ---
PROGRESS NOTE DATE OF SERVICE: 12/10/2024 SUBJECTIVE: This is a woman, who was admitted with multiple medical problems, surgical wound dehiscence, also had a trach collar and PEG tube placement also. The patient is slated to return to [facility] in [place] for continued care. Insurance authorization is pending. The patient has a legal guardian. The patient will be closely monitored at this time. Hemoglobin is 8.8. PAST MEDICAL HISTORY: Reviewed. REVIEW OF SYSTEMS: Fourteen-point review of systems negative except as mentioned earlier. CURRENT MEDICATIONS: Reviewed. PHYSICAL EXAMINATION: VITAL SIGNS: Pulse is 84, blood pressure 116/69, respirations 18. HEENT: Conjunctivae normal. NECK: Has tracheostomy. CARDIOVASCULAR: S1, S2. RESPIRATIONS: Breath sounds diminished at the bases. Bilaterally scattered rhonchi and crackles. ABDOMEN: Soft, nontender. LABORATORY DATA: Reviewed. ASSESSMENT: 1. Surgical wound dehiscence with thoracic spine wound, status post debridement. 2. Status post surgical excision and debridement. 3. Status post tracheostomy and trach collar and PEG tube placement. 4. Acute on chronic hypoxic respiratory failure. 5. Chronic obstructive pulmonary disease exacerbation. 6. Seizure disorder. 7. Congestive heart failure. 8. Multiple complex medical issues. RECOMMENDATIONS: Recommended to continue with current management, continue with symptomatic treatment. The cultures are negative so far. I would recommend to continue the current medications including bronchodilators and closely follow with Social Work and Case Management for a safe discharge. Otherwise, prognosis is extremely guarded because of multiple complex medical issues. Further recommendations to follow. MMODL / IJN: [id number] / MTDD
[2024-12-11 11:16] LABS: Basophils # (A) 0.06 X 10*3/uL (0.00-0.10); Basophils % (A) 0.7 %; Eosinophils # (A) 0.41 X 10*3/uL (0.04-0.35); Eosinophils % (A) 4.6 %; HGB 9.1 g/dL (12.0-15.0); Lymphocytes # (A) 2.08 X 10*3/uL (0.90-5.00); Lymphocytes % (A) 23.1 %; MCHC 30.3 g/dL (32.0-37.0); Mean Platelet Volume 9.8 FL (9.5-12.2); Monocytes # (A) 1.02 X 10*3/uL (0.20-1.00); Monocytes % (A) 11.3 %; NRBC Per 100 WBC 0 X 10*3/uL (0.00-0.01); Neutrophils # (A) 5.33 X 10*3/uL (1.80-7.70); Neutrophils % (A) 59.1 %; Platelet Count 345 X 10*3/uL (140-440); RBC 3.03 X 10*6/uL (4.10-5.20); RDW 17.7 % (11.5-14.5); WBC 9.01 X 10*3/uL (4.50-10.00)
--- NOTE | 2024-12-11 11:37 | P.PN ---
Subjective Progress Note Date: 12/11/24 On 12/05/2024, patient is being seen in consultation for COPD and complications of a previous thoracolumbar wound dehiscence. The patient has advanced COPD and she is chronically debilitated due to various other comorbidities which include coronary artery disease, hypertension, hyperlipidemia, hypothyroidism, seizure disorder, chronic anxiety/depression/PTSD. Noted the patient had back pain with progressive neurologic deficits due to cervical myelopathy and neck pain with upper and lower extremity weakness. The patient underwent a C3-7 ACDF for severe spondylosis, deformity and stenosis in addition to bilateral laminectomy and partial medial facetectomy and foraminotomy and his initial surgery was done on 07/15/2023. Subsequently, the patient was found to have a T2 vertebral body fracture with distal junctional failure of C2-T2 decompression and fusion. The patient also had a T2-T3 severe kyphosis. The patient underwent an open T2 vertebral body treatment with T2-3 osteotomy for deformity correction and posterior lateral and interbody fusion and revision of the C2-T7 posterolateral instrumented fusion and insertion of a biomechanical device T2-3, cage #1. Subsequently, the patient was taken again to the operating room on 10/27/2024 for dehiscence of the thoracic spine wound and a T8 burst compression fracture with kyphotic deformity. The patient at that time underwent open treatment of T8 fracture and irrigation excisional debridement of the thoracic spine wound and cement augmentation of T8, T9 and T10 vertebral bodies. Postop, the patient presented to us to the emergency room with respiratory failure, obtunded, responsive and she had to be intubated. She remained on the mechanical ventilator and she failed to wean as the patient is known to have advanced COPD. During the course of her illness, she was tested positive for Pseudomonas aeruginosa in her lungs. She was treated accordingly. Ultimately, the patient underwent a tracheostomy tube insertion, she was weaned off to mechanical ventilator and she was liberated from the mechanical ventilator. She was di scharged to an [facility] and following that, she was transferred to [facility] for his ongoing wound dehiscence. Based on that, the patient was transferred back to our facility for further care. CAT scan of the spine demonstrated extensive surgical changes of the thoracolumbar spine with pedicle screws and interbody rods. Small foci of subcutaneous air in the soft tissue was present posterior to T10, T12 and L1. The patient was afebrile the patient was hemodynamically stable. Normal renal function. Based on that, the patient will be taken again to the operating room for irrigation and excisional debridement of the wound. For now, the patient was restarted on vancomycin cefepime and Diflucan. She has PEG tube for enteral feeding and nutritional support. She remains on 10 mg of prednisone. The patient is currently on 28% trach collar, 5 L of oxygen with a pulse ox of 98%. The patient's white cell count is at 7.8 with a hemoglobin 7.5 and a platelet count of 356. Sodium is at 137, potassium is at 3.4, BUN is 14 with a creatinine of 0.6. Serum calcium level is at 8.4. The patient remains on DuoNeb nebulized treatments [id number]. The patient is on a combination of Perforomist and Pulmicort nebulized treatments twice a day. The patient is on a maintenance prednisone of 10 mg p.o. daily regarding her advanced COPD. The chest x-ray from 11/30/2024 shows COPD without any acute abnormalities. Hemodynamically stable. On 12/06/2024, the patient is being seen for a follow-up. The patient is resting comfortably in bed. She has a #4 Shiley fenestrated tracheostomy tube and she is able to talk and she has a speaking valve. No respiratory distress. She is able to swallow and she is not utilizing her PEG tube. She underwent x-ray with debridement and irrigation of the thoracolumbar wound. She remains on IV cefepime and Diflucan. Respiratory status is stable. No significant cough sputum production chest tightness or wheezing. She is quite weak and debilit ated. Nevertheless, she is awake and alert and communicating. Spine surgery is on the case. ID is also on the case. Pending wound cultures. No other significant events overnight. On 12/07/2024, the patient is being seen for a follow-up. The patient is calm and comfortable and she has no specific complaints. She wanted to have her tracheostomy tube decannulated. However, I explained to her at length that this is not the right time to have her tracheostomy decannulated. Her respiratory status is stable. Nevertheless, we needed a secure airway should she need any further surgical intervention regarding her thoracolumbar wound. She is on a 28% trach collar and she is calm and comfortable. No significant respiratory secretions. Chest x-ray was noted from today and the patient has some mild interstitial densities without any acute airspace disease or consolidation. Tracheostomy tube is in a good location. Otherwise, no other new complaints. She remains on broad-spectrum antibiotics. Cultures are still pending. She remains on a combination of cefepime vancomycin and Diflucan. Hemodynamically stable. Blood work shows a white cell count of 7, hemoglobin of 7.1 and a plate let count of 305. BUN is 20 with a creatinine 0.9 and a sodium levels at 139, potassium is at 3.0 that needs to be replaced. ID is also on the case. On 12/08/2024, the patient has no new complaints. She does have some loose respiratory secretions that she is able to cough out. Her tracheostomy tube accidentally fell out. I had to reinsert the tube back again and she was given a new number for fenestrated Shiley tracheostomy tube and the insertion was done without any major difficulties. The white cell count is at 9.6 with a hemoglobin 9.8 and a platelet count of 305. Sodium is 134, BUN 29 with a creatinine of 0.9. Potassium level is at 3.8. Medications remain unchanged. She remains on bronchodilators. She remains on antibiotics and she remains also on Lovenox for DVT prophylaxis. She remains on cefepime, and vancomycin. ID is on the case. The surgical wound site over the thoracolumbar area is dry clean and intact. The patient is tolerating her diet. No new complaints. 12/09/2024, the patient is resting comfortably in bed. Tracheostomy tube is still in good location. Some loose respiratory secretions. No other new complaints otherwise. She is on IV antibiotics. No other significant events overnight. Hemodynamically stable. Orthopedic surgery is on the case. Surgical wound site is covered with appropriate dressing. On 12/10/2024, the patient is resting comfortably in bed. Tracheostomy tube is in place. Secretions are scant. No significant respiratory distress. Cultures from the wound came back negative. The patient accordingly was taken off antibiotics. ID is on the case. White cell count is at 9 with a hemoglobin of 8.8 and a platelet count of 331. Electrolytes are all within normal limits. Troponins are negative. No new complaints otherwise for now. On 12/11/2024, no new complaints and the patient's condition is stable. Tracheostomy still in place and the patient is on a 28% trach collar. No significant respiratory secretions. Pulse ox 98% on room air oxygen. White cell count is at 9 with a hemoglobin of 9 and a platelet count of 345. Discharge planning is in progress. Objective - Vital Signs Vital signs: Vital Signs Temp 98.7 F 12/11/24 07:19 Pulse 100 12/11/24 08:47 Resp 18 12/11/24 07:19 BP 121/76 12/11/24 07:19 Pulse Ox 99 12/11/24 08:21 FiO2 28 12/11/24 08:21 Intake & Output 12/10/24 12/11/24 12/11/24 18:59 06:59 18:59 Intake Total 790 Output Total 450 Balance -450 790 Weight 33 kg Intake: Oral 790 Output: Urine 450 Other: Voiding Method Bedside Commode Bedside Commode # Voids 2 # Bowel Movements 1 - Exam GENERAL EXAM: Awake, pleasant 54-year-old female, resting comfortably, on 28% FiO2 via trach collar, in no apparent distress. HEAD: Normocephalic. EYES: Normal reaction of pupils, equal size. NOSE: Clear with pink turbinates. THROAT: Tracheostomy tube secured in place. No erythema or exudates. NECK: No masses, no JVD. CHEST: No chest wall deformity. LUNGS: Equal air entry with no crackles, wheeze, rhonchi or dullness. CVS: S1 and S2 normal with no audible murmur, regular rhythm. ABDOMEN: PEG tube exit site clean and dry. No hepatosplenomegaly, normal bowel sounds, no guarding or rigidity. SPINE: No scoliosis or deformity CENTRAL NERVOUS SYSTEM: No noted focal deficit, tone is normal in all 4 extremities. Patient does have good range of motion throughout bilateral upper and lower extremities on exam. 4/5 in all major motor groups in bilateral upper and lower extremities. Radial pulse intact bilaterally. Negative Homans, Suhas, clonus bilaterally. EXTREMITIES: There is no peripheral edema. No clubbing, no cyanosis. Peripheral pulses are intact. Skin A 10 cm wound dehiscence on thoracolumbar spine. Negative for any active drainage. Negative for any significant ecchymosis or erythema. Sensation is equal, symmetric, bilateral intact throughout the upper and lower extremities. There is some generalized tenderness to patient throughout the spine on exam. Nontender on rest of exam. - Labs CBC & Chem 7: 12/11/24 03:23 12/10/24 05:59 Labs: Abnormal Lab Results - Last 24 Hours (Table) 12/10/24 12/10/24 Range/Units 05:59 05:59 RBC 2.93 L (4.10-5.20) X 10*6/uL Hgb 8.8 L (12.0-15.0) g/dL Hct 28.8 L (37.2-46.3) % MCV 98.3 H (80.0-97.0) FL MCHC 30.6 L (32.0-37.0) g/dL RDW 18.2 H (11.5-14.5) % Immature Gran # 0.09 H (0.00-0.04) X 10*3/uL Eosinophils # 0.46 H (0.04-0.35) X 10*3/uL BUN 29.5 H (9.0-27.0) mg/dL BUN/Creatinine Ratio 36.88 H (12.00-20.00) Ratio Assessment and Plan Plan: Thoracolumbar wound dehiscence awaiting surgical irrigation and excisional debridement by spine surgery. Patient is currently covered with broad-spectrum antibiotics including cefepime, vancomycin and Diflucan. Hemodynamically stable. Afebrile. The patient is postop day # 5 awaiting cultures. Antibiotics has been discontinued. Cultures are negative. Advanced COPD, status post tracheostomy tube insertion for failure to wean off the mechanical ventilator. The patient is currently on 28% trach collar. Chronic hypoxemic respiratory failure, remains on 28% trach collar Chronic dyspnea secondary to above Multiple spine surgeries including - T8 fracture. The patient was discharged from the hospital following surgery on 10/27/2024 for open treatment of a T8 fracture, irrigation and excisional debridement of thoracic spine wound measuring 10 x 7 x 4 cm, posterior lateral instrumented fusion of T7-T11 and cement augmentation of T8-T10 vertebral bodies. - T2 vertebral fracture with revision of C2-T7 posterior lateral fusion on 09/09/2024 - C3-7 ACDF for severe spondylosis, deformity and stenosis in addition to bilateral laminectomy and partial medial facetectomy and foraminotomy and his initial surgery was done on 07/15/2023 Surgical site infection and wound dehiscence, wound and blood cultures revealed no growth Acute leukocytosis, improved Macrocytic anemia Rectal prolapse with bleeding History of hypertension History of hyperlipidemia History of coronary artery disease History of heart failure with preserved ejection fraction History of gastroesophageal reflux disease History of seizure disorder History of hypothyroidism History of anxiety/depression/PTSD Plan Respiratory status remains stable and the patient remains on 28% trach collar Overall respiratory status remains stable. The patient is not a candidate for tracheostomy tube decannulation at this point in time. She is stable and the tracheostomy tube needs to be kept in place. The tracheostomy tube was exchanged today as the previous insert the tube accidentally fell out The patient is #4 fenestrated Shiley tracheostomy tube and she is able to talk and converse Continue DuoNeb inhalations Continue a prednisone currently on 10 mg dose maintenance Continue DuoNeb updrafts Continue Pulmicort and Perforomist inhalations Discharge planning is in progress, pulmonary critical services will sign off.
[2024-12-11 11:50] LABS: Chloride 102 mmol/L (96-109); Glucose 113 mg/dL (70-110); Potassium 4.6 mmol/L (3.5-5.5); Sodium 141 mmol/L (135-145)
[2024-12-11 11:51] LABS: Calcium 9.2 mg/dL (8.7-10.3); Carbon Dioxide 29.6 mmol/L (21.6-31.8)
--- NOTE | 2024-12-11 13:26 | P.PN ---
Subjective Progress Note Date: 12/11/24 Principal diagnosis: Reason for follow-up is thoracic spine incision dehiscence Patient is a 54-year-old female with a past medical history significant for Asthma, Heart Failure, COPD, Deep Vein Thrombosis (DVT), Eye Disorder, Fibromyalgia, GERD/Reflux, Hyperlipidemia, Hypertension, Memory Impairment, Myocardial Infarction (DC), Osteoarthritis (OA), Pneumonia, Seizure Disorder, Skin Disorder, Syncope, Thyroid Disorder, multiple surgeries on the thoracic spine with readmission to the hospital concerning for wound dehiscence.Patient is status post irrigation and excisional requirement of the thoracolumbar spine wound, with removal of the skin soft tissue and subcu muscle as well as cultures obtained on 12/05/2024 On today's evaluation that is 12/11/2024, Patient is afebrile patient is currently on trach collar and denies having any shortness of breath, the patient denies any chest pain or any worsening cough, the patient denies any nausea vomiting did not have any abdominal pain and no diarrhea. Patient white count 9.01, creatinine 1.0 culture remains to be negative Objective - Vital Signs Vital signs: Vital Signs Temp 98.7 F 12/11/24 07:19 Pulse 96 12/11/24 11:56 Resp 18 12/11/24 07:19 BP 121/76 12/11/24 07:19 Pulse Ox 99 12/11/24 08:21 FiO2 28 12/11/24 08:21 Intake & Output 12/10/24 12/11/24 12/11/24 18:59 06:59 18:59 Intake Total 790 Output Total 450 Balance -450 790 Weight 33 kg Intake: Oral 790 Output: Urine 450 Other: Voiding Method Bedside Commode Bedside Commode # Voids 2 # Bowel Movements 1 - Exam GENERAL DESCRIPTION: Middle-age female lying in bed in no distress RESPIRATORY SYSTEM: Unlabored breathing , clear auscultation anteriorly HEART: S1 S2 regular rate and rhythm , ABDOMEN: Soft , no tenderness Mid back incision is intact no swelling redness - Labs CBC & Chem 7: 12/11/24 03:23 12/11/24 03:23 Labs: Abnormal Lab Results - Last 24 Hours (Table) 12/11/24 12/11/24 Range/Units 03:23 03:23 RBC 3.03 L (4.10-5.20) X 10*6/uL Hgb 9.1 L (12.0-15.0) g/dL Hct 30.0 L (37.2-46.3) % MCV 99.0 H (80.0-97.0) FL MCHC 30.3 L (32.0-37.0) g/dL RDW 17.7 H (11.5-14.5) % Immature Gran # 0.11 H (0.00-0.04) X 10*3/uL Monocytes # 1.02 H (0.20-1.00) X 10*3/uL Eosinophils # 0.41 H (0.04-0.35) X 10*3/uL BUN 31.0 H (9.0-27.0) mg/dL BUN/Creatinine Ratio 31.00 H (12.00-20.00) Ratio Glucose 113 H (70-110) mg/dL Assessment and Plan (1) Postoperative wound dehiscence Current Visit: Yes Status: Acute Code(s): T81.31XA - DISRUPTION OF EXTERNAL OPERATION (SURGICAL) WOUND, NEC, INIT SNOMED Code(s): 989852959 Plan: 1patient with a complicated history of multiple surgery to the thoracic spine recently subsequently did have a admission to the hospital with acute respiratory failure and Pseudomonas pneumonia now being presented to the hospital with a wound dehiscence to the mid thoracic spine which seem to be deep, underlying infection not entirely excluded keeping in mind the patient has been in and out of the hospital will need to cover for resistant gram-positive's and gram-negative pathogen 2blood culture has been obtained ESR mildly elevated at 37 3patient is status post surgical debridement cultures are so far negative, culture has been negative and the patient antibiotics were discontinued yesterday will monitor the patient closely off antibiotic therapy at this point Dictation was produced using [employer] dictation software. please excuse any grammatical, word or spelling errors. Time with Patient: Less than 30
--- NOTE | 2024-12-12 05:32 | PN ---
PROGRESS NOTE DATE OF SERVICE: 12/11/2024 SUBJECTIVE: This is a 54-year-old woman, who was admitted with surgical wound dehiscence with spinal wound. She is being closely monitored. The patient had tracheostomy. No chest pain or palpitation. She wanted to go home at this time. OBJECTIVE: VITAL SIGNS: Pulse is 96, blood pressure 120/76, respirations 18. CHEST: A few scattered rhonchi and crackles. ABDOMEN: Soft. NERVOUS SYSTEM: Nonfocal. LABORATORY DATA: Potassium noted. ASSESSMENT: 1. Surgical wound dehiscence and thoracic spine wound, status post debridement. 2. Status post surgical excision and debridement. 3. Status post tracheostomy and trach collar and PEG tube placement. 4. Acute on chronic hypoxic respiratory failure. 5. Chronic obstructive pulmonary disease acute exacerbation. 6. Multiple complex medical issues. RECOMMENDATIONS: Recommend to continue current management and continue with symptomatic treatment. Continue with bronchodilators. Repeat labs. Closely follow with [facility]. Possible discharge planning in the next 24 hours. MMODL / IJN: [id number] /
[2024-12-12 08:18] LABS: Basophils # (A) 0.08 X 10*3/uL (0.00-0.10); Basophils % (A) 0.9 %; Eosinophils # (A) 0.44 X 10*3/uL (0.04-0.35); Eosinophils % (A) 4.8 %; HCT 29.7 % (37.2-46.3); HGB 9.2 g/dL (12.0-15.0); Lymphocytes # (A) 2.27 X 10*3/uL (0.90-5.00); Lymphocytes % (A) 24.7 %; MCH 30.9 pg (27.0-32.0); MCV 99.7 FL (80.0-97.0); Mean Platelet Volume 9.8 FL (9.5-12.2); NRBC Per 100 WBC 0 X 10*3/uL (0.00-0.01); Neutrophils # (A) 5.18 X 10*3/uL (1.80-7.70); Neutrophils % (A) 56.2 %; Platelet Count 329 X 10*3/uL (140-440); RBC 2.98 X 10*6/uL (4.10-5.20); RDW 17.4 % (11.5-14.5)
[2024-12-12 08:33] VITALS: BP 108/66; RESP 17; TEMP 97.6
[2024-12-12 08:38] LABS: Blood Urea Nitrogen 34.3 mg/dL (9.0-27.0); Calcium 9.3 mg/dL (8.7-10.3); Carbon Dioxide 28.7 mmol/L (21.6-31.8); Chloride 97 mmol/L (96-109); Glucose 107 mg/dL (70-110); Potassium 4.5 mmol/L (3.5-5.5); Sodium 136 mmol/L (135-145)
[2024-12-12 11:21] VITALS: PULSE 92
--- NOTE | 2024-12-12 12:23 | P.PN ---
Subjective Progress Note Date: 12/12/24 Principal diagnosis: Reason for follow-up is thoracic spine incision dehiscence Patient is a 54-year-old female with a past medical history significant for Asthma, Heart Failure, COPD, Deep Vein Thrombosis (DVT), Eye Disorder, Fibromyalgia, GERD/Reflux, Hyperlipidemia, Hypertension, Memory Impairment, Myocardial Infarction ([place]), Osteoarthritis (OA), Pneumonia, Seizure Disorder, Skin Disorder, Syncope, Thyroid Disorder, multiple surgeries on the thoracic spine with readmission to the hospital concerning for wound dehiscence.Patient is status post irrigation and excisional requirement of the thoracolumbar spine wound, with removal of the skin soft tissue and subcu muscle as well as cultures obtained on 12/05/2024 On today's evaluation that is 12/12/2024, patient has been afebrile, patient is breathing comfortably and is currently on 5 L trach collar, patient denies having any chest pain or any worsening cough, patient mention feeling better is going home today. Patient white count is 9.20 creatinine is 1.0 culture remains to be negative Objective - Vital Signs Vital signs: Vital Signs Temp 97.6 F 12/12/24 08:15 Pulse 92 12/12/24 11:31 Resp 17 12/12/24 08:15 BP 108/66 12/12/24 08:15 Pulse Ox 95 12/12/24 08:15 FiO2 28 12/12/24 11:17 Intake & Output 12/11/24 12/12/24 12/12/24 18:59 06:59 18:59 Other: Voiding Method Bedside Commode Bedside Commode # Voids 1 # Bowel Movements 1 - Exam GENERAL DESCRIPTION: Middle-age female lying in bed in no distress RESPIRATORY SYSTEM: Unlabored breathing , clear auscultation anteriorly HEART: S1 S2 regular rate and rhythm , ABDOMEN: Soft , no tenderness Mid back incision is intact no swelling redness - Labs CBC & Chem 7: 12/12/24 03:06 12/12/24 03:06 Labs: Abnormal Lab Results - Last 24 Hours (Table) 12/12/24 12/12/24 Range/Units 03:06 03:06 RBC 2.98 L (4.10-5.20) X 10*6/uL Hgb 9.2 L (12.0-15.0) g/dL Hct 29.7 L (37.2-46.3) % MCV 99.7 H (80.0-97.0) FL MCHC 31.0 L (32.0-37.0) g/dL RDW 17.4 H (11.5-14.5) % Immature Gran # 0.13 H (0.00-0.04) X 10*3/uL Monocytes # 1.10 H (0.20-1.00) X 10*3/uL Eosinophils # 0.44 H (0.04-0.35) X 10*3/uL BUN 34.3 H (9.0-27.0) mg/dL BUN/Creatinine Ratio 34.30 H (12.00-20.00) Ratio Assessment and Plan (1) Postoperative wound dehiscence Current Visit: Yes Status: Acute Code(s): T81.31XA - DISRUPTION OF EXTERNAL OPERATION (SURGICAL) WOUND, NEC, INIT SNOMED Code(s): 544154857 Plan: 1patient with a complicated history of multiple surgery to the thoracic spine recently subsequently did have a admission to the hospital with acute respiratory failure and Pseudomonas pneumonia now being presented to the hospital with a wound dehiscence to the mid thoracic spine which seem to be deep, underlying infection not entirely excluded keeping in mind the patient has been in and out of the hospital will need to cover for resistant gram-positive's and gram-negative pathogen 2blood culture has been obtained ESR mildly elevated at 37 3patient is status post surgical debridement cultures has been negative and the patient is currently doing well off antibiotic for the last few days recommend no antibiotic on discharge Dictation was produced using [employer] software. please excuse any grammatical, word or spelling errors.
--- NOTE | 2024-12-12 13:25 | P.PN ---
Subjective Progress Note Date: 12/12/24 The patient is seen today December 12, 2024 in follow-up on the medical floor. She is currently sitting up in bed. Talking on the phone with her finger over her tracheostomy. She remains on trach collar 28% with O2 saturations in the 90s. She denies any worsening shortness of breath, cough or congestion. She remains afebrile. Hemodynamically stable. White count 9.2. Hemoglobin 9.2. Platelets 329. Sodium 136. Potassium 4.5. Bicarb 29. BUN 34. Creatinine 1.0. Glucose 107. She is continued on DuoNeb inhalations, Pulmicort and Perforomist inhalations, Singulair. NicoDerm patch remains in place. Lovenox for DVT prophylaxis. Remains on oral diuretics. Objective - Vital Signs Vital signs: Vital Signs Temp 97.6 F 12/12/24 08:15 Pulse 92 12/12/24 11:31 Resp 17 12/12/24 08:15 BP 108/66 12/12/24 08:15 Pulse Ox 95 12/12/24 08:15 FiO2 28 12/12/24 11:17 Intake & Output 12/11/24 12/12/24 12/12/24 18:59 06:59 18:59 Other: Voiding Method Bedside Commode Bedside Commode # Voids 1 # Bowel Movements 1 - Exam GENERAL EXAM: Alert, active, pleasant 54-year-old female, on 28% FiO2 via trach collar comfortable in no apparent distress. HEAD: Normocephalic. EYES: Normal reaction of pupils, equal size. NOSE: Clear with pink turbinates. THROAT: Tracheostomy tube secured in place. No erythema or exudates. NECK: No masses, no JVD. CHEST: No chest wall deformity. LUNGS: Equal air entry with no crackles, wheeze, rhonchi or dullness. CVS: S1 and S2 normal with no audible murmur, regular rhythm. ABDOMEN: No hepatosplenomegaly, normal bowel sounds, no guarding or rigidity. SPINE: No scoliosis or deformity SKIN: No rashes CENTRAL NERVOUS SYSTEM: No focal deficits, tone is normal in all 4 extremities. EXTREMITIES: There is no peripheral edema. No clubbing, no cyanosis. Peripheral pulses are intact. - Labs CBC & Chem 7: 12/12/24 03:06 12/12/24 03:06 Labs: Abnormal Lab Results - Last 24 Hours (Table) 12/12/24 12/12/24 Range/Units 03:06 03:06 RBC 2.98 L (4.10-5.20) X 10*6/uL Hgb 9.2 L (12.0-15.0) g/dL Hct 29.7 L (37.2-46.3) % MCV 99.7 H (80.0-97.0) FL MCHC 31.0 L (32.0-37.0) g/dL RDW 17.4 H (11.5-14.5) % Immature Gran # 0.13 H (0.00-0.04) X 10*3/uL Monocytes # 1.10 H (0.20-1.00) X 10*3/uL Eosinophils # 0.44 H (0.04-0.35) X 10*3/uL BUN 34.3 H (9.0-27.0) mg/dL BUN/Creatinine Ratio 34.30 H (12.00-20.00) Ratio Assessment and Plan Assessment: Thoracolumbar wound dehiscence, status post irrigation and excisional debridement of the thoracolumbar spine wound 10 x 4 x 3 cm on December 05, 2024. Cultures were negative. Advanced COPD, status post tracheostomy tube insertion for failure to wean off the mechanical ventilator. The patient is currently on 28% trach collar. Chronic hypoxemic respiratory failure, remains on 28% trach collar Chronic dyspnea secondary to above Multiple spine surgeries including - T8 fracture. The patient was discharged from the hospital following surgery on 10/27/2024 for open treatment of a T8 fracture, irrigation and excisional debridement of thoracic spine wound measuring 10 x 7 x 4 cm, posterior lateral instrumented fusion of T7-T11 and cement augmentation of T8-T10 vertebral bodies. - T2 vertebral fracture with revision of C2-T7 posterior lateral fusion on 09/09/2024 - C3-7 ACDF for severe spondylosis, deformity and stenosis in addition to bilateral laminectomy and partial medial facetectomy and foraminotomy and his initial surgery was done on 07/15/2023 Surgical site infection and wound dehiscence, wound and blood cultures revealed no growth Acute leukocytosis, improved Macrocytic anemia Rectal prolapse with bleeding History of hypertension History of hyperlipidemia History of coronary artery disease History of heart failure with preserved ejection fraction History of gastroesophageal reflux disease History of seizure disorder History of hypothyroidism History of anxiety/depression/PTSD Plan: The patient was seen and evaluated Medications and labs reviewed Remains stable on 28% FiO2 via trach collar Tracheostomy tube remains in place No pulmonary complaints Remains on DuoNeb inhalations Remains on Pulmicort and Perforomist inhalations Remains on Singulair Educated regarding smoking cessation NicoDerm patch remains in place Lovenox for DVT prophylaxis Completed antibiotics Plan is for decannulation once fully recovered Plan is to return to [facility], possibly today This patient was seen independently by the pulmonary nurse practitioner herlinda arias pulmonary issues I have personally seen and examined the patient, performed the documentation and the assessment and plan as written. Number of minutes spent on the visit: 25 Dictation was produced using [email or web address] dictation software. Please excuse any grammatical, word or spelling errors
--- NOTE | 2024-12-12 13:59 | P.DS ---
Providers Date of admission: 12/04/24 13:09 Expected date of discharge: 12/12/24 Attending physician: Dustin Martinez MD Consults: 12/04/24 13:09 Consult Physician Routine Consulting Provider: Leonel Mchugh Consult Reason/Comments: wound dehiscence Do you want consulting provider notified?: Already Contacted Consult Physician Urgent Consulting Provider: Sergo Rivera Consult Reason/Comments: chronic resp failure with trach Do you want consulting provider notified?: Already Contacted 12/04/24 13:11 Consult Physician Urgent Consulting Provider: Chevy Chang Consult Reason/Comments: wound dehiscence Do you want consulting provider notified?: Yes 12/06/24 10:45 Consult Physician Routine Consulting Provider: Eduardo Capellan Consult Reason/Comments: evaluate for IPR Do you want consulting provider notified?: Yes Primary care physician: Harpreet Ballard Hospital Course: Final diagnosis Surgical wound dehiscence of the thoracic spine wound, status post debridement prior to discharge last month. S/p surgical excisional debridement and irrigation on 12/05/2024 cultures are negative and has completed adequate antibiotics status post tracheostomy on trach collar and PEG tube placement, currently continues with a #4 Shiley, fenestrated, uncuffed on 28% Acute on chronic hypoxic respiratory failure Mild acute COPD exacerbation Seizure disorder CHF Chronic hypoxic hypercapnic respiratory failure Hypertension Hyperlipidemia Hypothyroidism Seizure disorder History of DVT Chronic anemia Rectal prolapse, chronic Depression and PTSD GI prophylaxis DVT prophylaxis Full code Discharge disposition Patient is being discharged in a stable condition with guarded prognosis to [facility]. Patient will follow-up with Dr. Ballard in the outpatient setting upon discharge. Patient is to continue with outpatient follow-up with orthopedics in 1 to 2 weeks and also outpatient follow-up once cleared by orthopedics to general surgery for chronic rectal prolapse and possible intervention. Total time taken is greater than 35 minutes. Hospital course This is a 54-year-old female who was recently admitted with wound dehiscence from her previous surgical site of her T8 compression fracture being closely monitored with multiple consultations including infectious disease, orthopedics following. Patient was maintained on IV antibiotics and repeat cultures from surgery are negative and patient has received adequate antibiotic therapy and will not be continued on antibiotics on discharge. Patient has been cleared by orthopedics recommending outpatient follow-up and continuing with local wound care to the back. Patient with chronic rectal prolapse was seen and evaluated by general surgery on previous admissions recommending outpatient follow-up for possible intervention. Patient continues with tracheostomy at 28% with a #4 Shiley fenestrated uncuffed and was evaluated by pulmonary recommends to continue with tracheostomy at this time. Patient also with PEG tube and continues on Jevity 1.5 continuous with a goal rate of 45 mL and 1080 mL total daily including 100 cc of free water flushes every 4 hours. Recommend aspiration precautions and head of the bed elevated 30 to 45 degrees at all times. Supervision with meals. Patient was seen and evaluated by speech and is maintained on regular diet although is high risk for aspirating especially when lethargic from narcotic use. Patient to continue with Ensure and live supplements 3 times daily between meals and recommend outpatient follow-up. Please refer to other consultation notes for further HPI. Patient was evaluated by inpatient rehab although does not qualify recommend returning to ECF for continued strength and mobility. Patient wanted to go home although has a lot of needs and higher level of care that she may not be able to handle and has a legal public guardian who is recommending ECF. Currently no reports of chest pain, shortness of breath, or palpitations. Patient is afebrile. No reports of nausea or vomiting and patient is tolerating diet. Patient will be going to [facility] today. Guarded prognosis and high risk for readmissions. Physical exam: Gen: This is a 54-year-old female who is awake, alert and oriented x 3, well- developed, thin built, appears older than stated age HEENT: Head is atraumatic, normocephalic. Pupils equal, round. Sclerae is anicteric. NECK: Supple. No JVD. No lymphadenopathy. No thyromegaly. Tracheostomy noted. LUNGS: Diminished breath sounds bilaterally otherwise clear to auscultation. No wheezes or rhonchi. Some upper bronchial congestion noted but able to clear. No intercostal retractions. HEART: Regular rate and rhythm. No murmur. ABDOMEN: Soft. Bowel sounds are present. No masses. No tenderness. PEG tube noted EXTREMITIES: No pedal edema. No calf tenderness. NEUROLOGICAL: Patient is awake, alert and oriented x3. Cranial nerves 2 through 12 are grossly intact. Diffusely weak Please refer to medication reconciliation sheet for a list of medications. The impression and plan of care has been dictated by Kristina Wells, Nurse Practitioner as directed. Dr. Dick MD I have performed a history and examination and MDM of this patient, discussed the same with the dictator, and agree with the dictator's assessment and plan as written ,documented as a scribe. Based on total visit time, I have performed more than 50% of the visit. Patient Condition at Discharge: Stable Plan - Discharge Summary Discharge Rx Participant: Yes New Discharge Prescriptions: New Nicotine 14Mg/24Hr Patch [Habitrol] 1 patch TRANSDERM DAILY patch Thiamine [Vitamin B-1] 100 mg PO DAILY tab ALPRAZolam [Xanax] 0.5 mg PO BID PRN #4 tab PRN Reason: Anxiety Continue Asenapine Maleate [Saphris] 10 mg SUBLINGUAL BID Pantoprazole Sodium [Protonix] 40 mg PEG/G-TUBE BID Albuterol Sulfate [Proair Hfa] 2 puff INHALATION RT-Q6H PRN PRN Reason: Shortness Of Breath Prazosin HCl [Minipress] 2 mg PEG/G-TUBE BID Fluticasone/Umeclidin/Vilanter [Trelegy Ellipta 100-62.5-25] 1 puff INHALATION RT-DAILY Brivaracetam [Briviact] 100 mg PEG/G-TUBE BID Budesonide [Pulmicort] 0.5 mg INHALATION RT-Q12H PRN PRN Reason: Shortness Of Breath Fluticasone Nasal [place] [Flonase Nasal [place]] 1 spr EA NOSTRIL DAILY Propranolol [Inderal] 20 mg PEG/G-TUBE BID Cholecalciferol (Vitamin D3) [Vitamin D3 (50 Mcg = 2000 Iu)] 50 mcg PEG/G- TUBE DAILY Acetaminophen Tab [Tylenol] 500 mg PEG/G-TUBE Q6HR PRN PRN Reason: Pain Ipratropium-Albuterol Nebulize [Duoneb 0.5 mg-3 mg/3 ml Soln] 3 ml INHALATION RT-QID each Enoxaparin [Lovenox] 40 mg SQ DAILY each Fluconazole [Diflucan] 100 mg PEG/G-TUBE DAILY Folic Acid 0.4 mg PEG/G-TUBE DAILY Gabapentin [Neurontin] 100 mg PEG/G-TUBE TID Loperamide [Imodium] 2 mg PEG/G-TUBE Q6H PRN PRN Reason: Diarrhea Sertraline HCl 200 mg PEG/G-TUBE DAILY Tamsulosin HCl [Flomax] 0.4 mg PEG/G-TUBE DAILY Topiramate [Trokendi Xr] 100 mg PEG/G-TUBE DAILY rOPINIRole HCL [Requip] 2 mg PEG/G-TUBE BID Cetirizine HCl [Zyrtec] 10 mg PEG/G-TUBE DAILY Levothyroxine Sodium [Synthroid] 88 mcg PEG/G-TUBE DAILY Montelukast [Singulair] 10 mg PEG/G-TUBE HS busPIRone HCL 15 mg PEG/G-TUBE TID Formoterol Fumarate [Perforomist] 20 mcg INHALATION RT-BID ml Furosemide [Lasix] 20 mg PEG/G-TUBE DAILY Ipratropium-Albuterol Nebulize [Duoneb 0.5 mg-3 mg/3 ml Soln] 3 ml INHALATION RT-Q2H PRN PRN Reason: Shortness Of Breath Magnesium Hydroxide [Milk of Magnesia Concentrate] 7,200 mg PEG/G-TUBE DAILY PRN PRN Reason: Constipation Multivitamins, Thera [Multivitamin (formulary)] 1 tab PEG/G-TUBE DAILY Changed HYDROcodone/APAP 5-325MG [Sacred Heart 5-325] 1 tab PEG/G-TUBE Q6HR PRN #4 tab PRN Reason: discomfort Discontinued predniSONE [Deltasone] See Taper PEG/G-TUBE DAILY Discharge Medication List Asenapine Maleate [Saphris] 10 mg SUBLINGUAL BID 04/30/17 [History] Pantoprazole Sodium [Protonix] 40 mg PEG/G-TUBE BID 01/07/19 [History] Topiramate [Trokendi Xr] 100 mg PEG/G-TUBE DAILY 04/15/21 [History] Albuterol Sulfate [Proair Hfa] 2 puff INHALATION RT-Q6H PRN 05/10/21 [History] Prazosin HCl [Minipress] 2 mg PEG/G-TUBE BID 05/10/21 [History] rOPINIRole HCL [Requip] 2 mg PEG/G-TUBE BID 05/10/21 [History] Fluticasone/Umeclidin/Vilanter [Trelegy Ellipta 100-62.5-25] 1 puff INHALATION RT-DAILY 12/10/22 [History] Brivaracetam [Briviact] 100 mg PEG/G-TUBE BID 07/10/23 [History] Budesonide [Pulmicort] 0.5 mg INHALATION RT-Q12H PRN 07/27/23 [History] Cetirizine HCl [Zyrtec] 10 mg PEG/G-TUBE DAILY 07/27/23 [History] Fluticasone Nasal [place] [Flonase Nasal [place]] 1 spr EA NOSTRIL DAILY 07/27/23 [History] Levothyroxine Sodium [Synthroid] 88 mcg PEG/G-TUBE DAILY 07/27/23 [History] Propranolol [Inderal] 20 mg PEG/G-TUBE BID 07/27/23 [History] Acetaminophen Tab [Tylenol] 500 mg PEG/G-TUBE Q6HR PRN 10/25/24 [History] Cholecalciferol (Vitamin D3) [Vitamin D3 (50 Mcg = 2000 Iu)] 50 mcg PEG/G-TUBE DAILY 10/25/24 [History] Montelukast [Singulair] 10 mg PEG/G-TUBE HS 10/25/24 [History] busPIRone HCL 15 mg PEG/G-TUBE TID 10/25/24 [History] Enoxaparin [Lovenox] 40 mg SQ DAILY each 12/01/24 [Rx] Formoterol Fumarate [Perforomist] 20 mcg INHALATION RT-BID ml 12/01/24 [Rx] Ipratropium-Albuterol Nebulize [Duoneb 0.5 mg-3 mg/3 ml Soln] 3 ml INHALATION RT-QID each 12/01/24 [Rx] Fluconazole [Diflucan] 100 mg PEG/G-TUBE DAILY 12/04/24 [History] Folic Acid 0.4 mg PEG/G-TUBE DAILY 12/04/24 [History] Furosemide [Lasix] 20 mg PEG/G-TUBE DAILY 12/04/24 [History] Gabapentin [Neurontin] 100 mg PEG/G-TUBE TID 12/04/24 [History] Ipratropium-Albuterol Nebulize [Duoneb 0.5 mg-3 mg/3 ml Soln] 3 ml INHALATION RT-Q2H PRN 12/04/24 [History] Loperamide [Imodium] 2 mg PEG/G-TUBE Q6H PRN 12/04/24 [History] Magnesium Hydroxide [Milk of Magnesia Concentrate] 7,200 mg PEG/G-TUBE DAILY PRN 12/04/24 [History] Multivitamins, Thera [Multivitamin (formulary)] 1 tab PEG/G-TUBE DAILY 12/04/24 [History] Sertraline HCl 200 mg PEG/G-TUBE DAILY 12/04/24 [History] Tamsulosin HCl [Flomax] 0.4 mg PEG/G-TUBE DAILY 12/04/24 [History] ALPRAZolam [Xanax] 0.5 mg PO BID PRN #4 tab 12/12/24 [Rx] HYDROcodone/APAP 5-325MG [Sacred Heart 5-325] 1 tab PEG/G-TUBE Q6HR PRN #4 tab 12/12/24 [Rx] Nicotine 14Mg/24Hr Patch [Habitrol] 1 patch TRANSDERM DAILY patch 12/12/24 [Rx] Thiamine [Vitamin B-1] 100 mg PO DAILY tab 12/12/24 [Rx] Follow up Appointment(s)/Referral(s): Adonay Agee MD [Medical Doctor] - 1 Week (Follow-up outpatient to discuss surgical options for rectal prolapse) Harpreet Ballard [Primary Care Provider] - 1-2 days Leonel Mchugh DO [Doctor of Osteopathic Medicine] - 2 Weeks Activity/Diet/Wound Care/Special Instructions: [facility] [place] [facility] [place] 1. keep incision clean, dry, intact 2. weight bear as tolerated with walker 3. pain meds as needed 4. follow up in office in 2 weeks w/Dr. Mchugh 5. contact [facility] with any questions at [phone] Discharge Disposition: TRANSFER TO SNF/ECF
== END 2024-12-12 15:31 | DRG 813 ==
LOC: EC 10:40 → 4SSUR 13:09
PROVIDERS: ADMIT Internal Medicine; ATTEND Internal Medicine
PROC: 3E0G76Z Introduction of Nutritional Substance into Upper GI, Via Natural or Artificial Opening (ICD-10-PCS; 2024-12-05)
PROC: 0JB70ZZ Excision of Back Subcutaneous Tissue and Fascia, Open Approach (ICD-10-PCS; principal; 2024-12-05 07:30)
DX: T81.31XA Disruption of external operation (surgical) wound, not elsewhere classified, initial encounter (principal); T81.41XA Infection following a procedure, superficial incisional surgical site, initial encounter; D53.9 Nutritional anemia, unspecified; G95.9 Disease of spinal cord, unspecified; F19.10 Other psychoactive substance abuse, uncomplicated; J44.1 Chronic obstructive pulmonary disease with (acute) exacerbation; J96.21 Acute and chronic respiratory failure with hypoxia; K62.3 Rectal prolapse; I11.0 Hypertensive heart disease with heart failure; J96.22 Acute and chronic respiratory failure with hypercapnia; Z93.0 Tracheostomy status; I50.32 Chronic diastolic (congestive) heart failure; L89.159 Pressure ulcer of sacral region, unspecified stage; E03.9 Hypothyroidism, unspecified; E78.5 Hyperlipidemia, unspecified; F17.200 Nicotine dependence, unspecified, uncomplicated; F31.9 Bipolar disorder, unspecified; F41.9 Anxiety disorder, unspecified; F43.10 Post-traumatic stress disorder, unspecified; T50.91 Poisoning by, adverse effect of and underdosing of multiple unspecified drugs, medicaments and biological substances; G25.81 Restless legs syndrome; G40.909 Epilepsy, unspecified, not intractable, without status epilepticus; G43.909 Migraine, unspecified, not intractable, without status migrainosus; K58.1 Irritable bowel syndrome with constipation; Z87.01 Personal history of pneumonia (recurrent); I25.2 Old myocardial infarction; K21.9 Gastro-esophageal reflux disease without esophagitis; I25.10 Atherosclerotic heart disease of native coronary artery without angina pectoris; R20.0 Anesthesia of skin; R53.81 Other malaise; Z79.899 Other long term (current) drug therapy; Z93.1 Gastrostomy status; Z98.1 Arthrodesis status; Z71.3 Dietary counseling and surveillance
CPT/HCPCS: 71045; 80048; 80053; 80202; 82565; 83735; 84484; 85025; 85652; 86140; 86850; 86900; 86901; 86920; 87040; 87070; 87075; 87205; 94640; 94664; 94760; 96365; 96366; 99285

== ENCOUNTER 2025-02-14 12:15 | Inpatient (IN) | payer OTHER ==
[2025-02-14] MEDS: SODIUM CHLORIDE 0.9% 1,000 ML IV ONE ×2 (12:35→12:55)
[2025-02-14 12:46] LABS: ABG Base Excess -11.9 mmol/L; ABG HCO3 17 mmol/L (21-25); ABG Oxygen Saturation 92.8 % (94-97); ABG PCO2 52 mmHg (35-45); ABG PO2 75 mmHg (83-108); ABG TCO2 19 mmol/L (19-24); Allen Test Performed? Yes
[2025-02-14 12:47] LABS: ABG PH 7.13 (7.35-7.45)
--- NOTE | 2025-02-14 12:51 | ED ---
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 Patient is agonal upon arrival requiring BVM through trach. She is hypotensive and hypoxic. Patient is able to respond somewhat to commands but is unable to give a detailed history. - Related Data Home Medications Medication Instructions Recorded Confirmed Asenapine Maleate [Saphris] 10 mg SUBLINGUAL BID 04/30/17 12/04/24 Pantoprazole Sodium [Protonix] 40 mg PEG/G-TUBE BID 01/07/19 12/04/24 Topiramate [Trokendi Xr] 100 mg PEG/G-TUBE DAILY 04/15/21 12/04/24 Albuterol Sulfate [Proair Hfa] 2 puff INHALATION RT-Q6H PRN 05/10/21 12/04/24 Prazosin HCl [Minipress] 2 mg PEG/G-TUBE BID 05/10/21 12/04/24 rOPINIRole HCL [Requip] 2 mg PEG/G-TUBE BID 05/10/21 12/04/24 Fluticasone/Umeclidin/Vilanter 1 puff INHALATION RT-DAILY 12/10/22 12/04/24 [Trelegy Ellipta 100-62.5-25] Brivaracetam [Briviact] 100 mg PEG/G-TUBE BID 07/10/23 12/04/24 Budesonide [Pulmicort] 0.5 mg INHALATION RT-Q12H PRN 07/27/23 12/04/24 Cetirizine HCl [Zyrtec] 10 mg PEG/G-TUBE DAILY 07/27/23 12/04/24 Fluticasone Nasal [place] [Flonase 1 spr EA NOSTRIL DAILY 07/27/23 12/04/24 Nasal [place]] Levothyroxine Sodium [Synthroid] 88 mcg PEG/G-TUBE DAILY 07/27/23 12/04/24 Propranolol [Inderal] 20 mg PEG/G-TUBE BID 07/27/23 12/04/24 Acetaminophen Tab [Tylenol] 500 mg PEG/G-TUBE Q6HR PRN 10/25/24 12/04/24 Cholecalciferol (Vitamin D3) 50 mcg PEG/G-TUBE DAILY 10/25/24 12/04/24 [Vitamin D3 (50 Mcg = 2000 Iu)] Montelukast [Singulair] 10 mg PEG/G-TUBE HS 10/25/24 12/04/24 busPIRone HCL 15 mg PEG/G-TUBE TID 10/25/24 12/04/24 Fluconazole [Diflucan] 100 mg PEG/G-TUBE DAILY 12/04/24 12/04/24 Folic Acid 0.4 mg PEG/G-TUBE DAILY 12/04/24 12/04/24 Furosemide [Lasix] 20 mg PEG/G-TUBE DAILY 12/04/24 12/04/24 Gabapentin [Neurontin] 100 mg PEG/G-TUBE TID 12/04/24 12/04/24 Ipratropium-Albuterol Nebulize 3 ml INHALATION RT-Q2H PRN 12/04/24 12/04/24 [Duoneb 0.5 mg-3 mg/3 ml Soln] Loperamide [Imodium] 2 mg PEG/G-TUBE Q6H PRN 12/04/24 12/04/24 Magnesium Hydroxide [Milk of 7,200 mg PEG/G-TUBE DAILY PRN 12/04/24 12/04/24 Magnesia Concentrate] Multivitamins, Thera [Multivitamin 1 tab PEG/G-TUBE DAILY 12/04/24 12/04/24 (formulary)] Sertraline HCl 200 mg PEG/G-TUBE DAILY 12/04/24 12/04/24 Tamsulosin HCl [Flomax] 0.4 mg PEG/G-TUBE DAILY 12/04/24 12/04/24 Previous Rx's Medication Instructions Recorded Enoxaparin [Lovenox] 40 mg SQ DAILY each 12/01/24 Formoterol Fumarate [Perforomist] 20 mcg INHALATION RT-BID ml 12/01/24 Ipratropium-Albuterol Nebulize 3 ml INHALATION RT-QID each 12/01/24 [Duoneb 0.5 mg-3 mg/3 ml Soln] ALPRAZolam [Xanax] 0.5 mg PO BID PRN #4 tab 12/12/24 HYDROcodone/APAP 5-325MG [Laie 1 tab PEG/G-TUBE Q6HR PRN #4 tab 12/12/24 5-325] Nicotine 14Mg/24Hr Patch [Habitrol] 1 patch TRANSDERM DAILY patch 12/12/24 Thiamine [Vitamin B-1] 100 mg PO DAILY tab 12/12/24 Allergies Allergy/AdvReac Type Severity Reaction Status Date / Time bee venom protein (honey bee) Allergy Anaphylaxis Verified 02/14/25 12:33 Review of Systems ROS Statement: Those systems with pertinent positive or pertinent negative responses have been documented in the HPI. ROS Other: All systems not noted in ROS Statement are negative. Past Medical History Past Medical History: Asthma, Heart Failure, COPD, Deep Vein Thrombosis (DVT), Eye Disorder, Fibromyalgia, GERD/Reflux, Hyperlipidemia, Hypertension, Memory Impairment, Myocardial Infarction ([place]), Osteoarthritis (OA), Pneumonia, Seizure Disorder, Skin Disorder, Syncope, Thyroid Disorder Additional Past Medical History / Comment(s): IBS, colitis, restless legs flexed syndrome, daily migraines, Vitamin D deficiency, benign left breast mass, gastritis, short term memory loss. Vision - "sees an orange aura." BILAT CATARACTS Last seizure 09/22/2024, PT STATES THAT DR. VILLALBA IS AWARE"Legs are weak and balance is off." checked bone marrow for cancer. Pt has pressure ulcer over lower incision from surgery on 09/09/2024. States she had a blood clot in leg but not sure which leg or when Last Myocardial Infarction Date:: 2009 History of Any Multi-Drug Resistant Organisms: None Reported Past Surgical History: Back Surgery, Hysterectomy, Orthopedic Surgery Additional Past Surgical History / Comment(s): D&C, bilateral knee arthroscopy. Past Anesthesia/Blood Transfusion Reactions: No Reported Reaction Additional Past Anesthesia/Blood Transfusion Reaction / Comment(s): severe anxiety coming out of anesthesia,no hx blood transfusion Past Psychological History: Anxiety, Bipolar, Depression, PTSD Smoking Status: Current every day smoker Past Alcohol Use History: None Reported Past Drug Use History: Marijuana - Past Family History Father Family Medical History: Cancer Additional Family Medical History / Comment(s): Father of pancreatic cancer at the age of 62yrs. and lung cancer Mother Family Medical History: Congestive Heart Failure (CHF) Additional Family Medical History / Comment(s): Mother of CHF at the age of 60yrs. Brother(s) Additional Family Medical History / Comment(s): Patient had 1 brother that at 5 months of age. Sister(s) Family Medical History: Deep Vein Thrombosis (DVT) Additional Family Medical History / Comment(s): Patient has one sister with history of depression and bipolar. Patient has 2 half-sisters and one at age 26 from overdose. Patient does not have any children. General Exam Limitations: no limitations General appearance: lethargic, in distress Head exam: Present: atraumatic, normocephalic Eye exam: Present: normal appearance, PERRL ENT exam: Present: normal exam, mucous membranes dry Respiratory exam: Present: respiratory distress, decreased breath sounds Cardiovascular Exam: Present: regular rate, normal rhythm GI/Abdominal exam: Present: distended, tenderness Extremities exam: Present: normal inspection, normal capillary refill Neurological exam: Absent: alert, oriented X3 Skin exam: Present: dry, cyanosis, pallor Course Vital Signs 02/14/25 02/14/25 02/14/25 12:25 12:28 12:59 Temperature Pulse Rate 64 67 Respiratory 12 20 Rate Blood Pressure 50/21 46/32 O2 Sat by Pulse 97 56 L Oximetry Fraction of 40 Inspired Oxygen (FIO2) 02/14/25 02/14/25 02/14/25 13:28 13:32 13:37 Temperature Pulse Rate 76 Respiratory 20 Rate Blood Pressure 85/60 O2 Sat by Pulse 72 L Oximetry Fraction of 50 50 Inspired Oxygen (FIO2) 02/14/25 02/14/25 02/14/25 13:52 14:09 14:42 Temperature 97.5 F L Pulse Rate 75 69 74 Respiratory 20 20 20 Rate Blood Pressure 107/76 97/64 95/64 O2 Sat by Pulse 100 100 100 Oximetry Fraction of Inspired Oxygen (FIO2) Procedures - Central Line Placement Right Femoral Consent Obtained: emergent situation Patient Placed on Monitor/Pulse Ox: Yes Prep: mask, gloves Central Line Prep: Chlorhexidine scrub Ultrasound Used for Placement: Yes Central Line Lumen Inserted: triple Bloods Obtained for Lab: Yes Central Line Position: good blood return, all ports aspirated, flushed, capped, sutured in place with nylon Dressing Applied: Tegaderm Patient Tolerated Procedure: well Complications: none Medical Decision Making - Medical Decision Making Was pt. sent in by a medical professional or institution (KESHIA Mccullough, [facility] [employer], urgent care, hospital, or [facility]...) When possible be specific @ -No Did you speak to anyone other than the patient for history (EMS, parent, family, police, friend...)? What history was obtained from this source @ -No Did you review nursing and triage notes (agree or disagree)? Why? @ -I reviewed and agree with nursing and triage notes Were old charts reviewed (outside hosp., previous admission, EMS record, old EKG, old radiological studies, urgent care reports/EKG's, [facility] records)? Report findings @ -No old charts were reviewed Differential Altered Mental Status: Hypoglycemia, DKA, hypercapnia, ETOH, overdose, CO poisoning, trauma, myxedema coma, HTN encephalopathy, infection, encephalitis, psychosis, intercranial hemorrhage, hepatic encephalopathy, meningitis, CVA, this is not meant to be an all-inclusive list EKG interpreted by me (3pts min.). @ -Sinus rhythm rate of 65 MO interval 169, QRS duration 894, QTc 463 T wave inversion in V2 and V3. X-rays interpreted by me (1pt min.). @ -[Chest x-ray shows increased lung markings, no consolidated pneumonia. CT interpreted by me (1pt min.). @CT brain and abdomen pelvis negative for acute findings. U/S interpreted by me (1pt. min.). @ -None done What testing was considered but not performed or refused? (CT, X-rays, U/S, labs)? Why? @ -None What meds were considered but not given or refused? Why? @ -None Did you discuss the management of the patient with other professionals (prof nani i.e. KESHIA Mccullough, [employer], lab, RT, psych nurse, director social, drafter (cad) electronic, teacher, drug abuse resistance education officer, geriatric case manager)? Give summary @ -Case discussed with Dr. Starkey, will accept to the ICU, case discussed with [facility], will accept admission Was smoking cessation discussed for >3mins.? @ -No Was critical care preformed (if so, how long)? @ -Yes, 35 minutes Were there social determinants of health that impacted care today? How? (Homelessness, low income, unemployed, alcoholism, drug addiction, transport ation, low edu. Level, literacy, decrease access to med. care, fci, rehab)? @ -No Was there de-escalation of care discussed even if they declined (Discuss DNR or withdrawal of care, Hospice)? DNR status @ -No What co-morbidities impacted this encounter? (DM, HTN, Smoking, COPD, CAD, Cancer, CVA, ARF, Chemo, Hep., AIDS, mental health diagnosis, sleep apnea, morbid obesity)? @ -Respiratory failure requiring tracheostomy Was patient admitted / discharged? Hospital course, mention meds given and route, prescriptions, significant lab abnormalities, going to OR and other pertinent info. @ -54-year-old female presents an extremis, syncopal versus seizure episode. Patient is hypoxic, hypercarbic, agonal respirations and hypotensive upon arrival. IV is established, initial fluid boluses do not improve blood pressure. Patient required central line for vasopressors. Her trach is switched for a cuffed tracheostomy tube and the patient is placed on a ventilator. CT brain, CT on pelvis, chest x-ray, laboratory testing is all obtained. Patient is prophylactically given antibiotics for sepsis and septic shock. She will be maintained on a vent and IV pressors and taken to the ICU for further evaluation and treatment. Undiagnosed new problem with uncertain prognosis? @ -No Drug Therapy requiring intensive monitoring for toxicity (Heparin, Nitro, Insulin, Cardizem)? @ -No Were any procedures done? @Yes, right femoral central line Diagnosis/symptom? @ -Septic shock, respiratory failure Acute, or Chronic, or Acute on Chronic? @ -[Acute Uncomplicated (without systemic symptoms) or Complicated (systemic symptoms)? @ -Complicated Side effects of treatment? @ -No Exacerbation, Progression, or Severe Exacerbation? @ -No Poses a threat to life or bodily function? How? (Chest pain, [place], [place], pneumonia, PE, COPD, DKA, ARF, appy, cholecystitis, CVA, Diverticulitis, Homicidal, Mary cidal, threat to staff... and all critical care pts) @Yes, sepsis, respiratory failure. - Lab Data Result diagrams: 02/14/25 12:57 02/14/25 12:57 Lab Results 02/14/25 02/14/25 02/14/25 Range/Units 12:43 12:57 12:57 WBC 8.40 (4.50-10.00) 10*3/uL RBC 4.04 L (4.10-5.20) 10*6/uL Hgb 10.7 L (12.0-15.0) g/dL Hct 36.1 L (37.2-46.3) % MCV 89.4 (80.0-97.0) fL MCH 26.5 L (27.0-32.0) pg MCHC 29.6 L (32.0-37.0) g/dL Plt Count 209 (140-440) 10*3/uL MPV 11.1 (9.5-12.2) fL Immature Gran % (Auto) 0.7 % Neutrophils % 44.8 % Lymphocytes % 39.6 % Monocytes % 12.0 % Eosinophils % 1.9 % Basophils % 1.0 % Immature Gran # 0.06 H (0.00-0.04) 10*3/uL Neutrophils # 3.76 (1.80-7.70) 10*3/uL Lymphocytes # 3.33 (0.90-5.00) 10*3/uL Monocytes # 1.01 H (0.20-1.00) 10*3/uL Eosinophils # 0.16 (0.04-0.35) 10*3/uL Basophils # 0.08 (0.00-0.10) 10*3/uL Manual Slide Review Performed PT (10.0-12.5) sec INR (<1.2) APTT (22.0-30.0) sec Sample Site rrad ABG pH 7.13 L* (7.35-7.45) ABG pCO2 52 H (35-45) mmHg ABG pO2 75 L (83-108) mmHg ABG HCO3 17 L (21-25) mmol/L ABG Total CO2 19 (19-24) mmol/L ABG O2 Saturation 92.8 L (94-97) % ABG Base Excess -11.9 mmol/L James Test Yes Hemoglobin 10.1 L (11.4-16.0) gm/dL FiO2 40 % Sodium 136 L (137-145) mmol/L Potassium 4.3 (3.5-5.1) mmol/L Chloride 105 (98-107) mmol/L Carbon Dioxide 18 L (22-30) mmol/L Anion Gap 13 mmol/L BUN 29 H (7-17) mg/dL Creatinine 1.51 H (0.52-1.04) mg/dL Est GFR (CKD-EPI)AfAm 46 (>60 ml/min/1.73 sqM) Est GFR (CKD-EPI)NonAf 40 (>60 ml/min/1.73 sqM) Glucose 161 H (74-99) mg/dL Plasma Lactic Acid Memo (0.7-2.0) mmol/L Calcium 8.2 L (8.4-10.2) mg/dL Magnesium 1.9 (1.6-2.3) mg/dL Total Bilirubin 0.6 (0.2-1.3) mg/dL AST 47 H (14-36) U/L ALT 33 (4-34) U/L Alkaline Phosphatase 94 (38-126) U/L Troponin I (0.000-0.034) ng/mL Total Protein 6.6 (6.3-8.2) g/dL Albumin 3.5 (3.5-5.0) g/dL Urine Color Urine Appearance (Clear) Urine pH (5.0-8.0) Ur Specific [place] (1.001-1.035) Urine Protein (Negative) Urine Glucose (UA) (Negative) Urine Ketones (Negative) Urine Blood (Negative) Urine Nitrite (Negative) Urine Bilirubin (Negative) Urine Urobilinogen (<2.0) mg/dL Ur Leukocyte Esterase (Negative) Urine RBC (0-5) /hpf Urine WBC (0-5) /hpf Urine WBC Clumps (None) /hpf Ur Squamous Epith Cells (0-4) /hpf Urine Bacteria (None) /hpf Hyaline Casts (0-2) /lpf Urine Mucus (None) /hpf 02/14/25 02/14/25 02/14/25 Range/Units 12:57 12:57 13:50 WBC (4.50-10.00) 10*3/uL RBC (4.10-5.20) 10*6/uL Hgb (12.0-15.0) g/dL Hct (37.2-46.3) % MCV (80.0-97.0) fL MCH (27.0-32.0) pg MCHC (32.0-37.0) g/dL Plt Count (140-440) 10*3/uL MPV (9.5-12.2) fL Immature Gran % (Auto) % Neutrophils % % Lymphocytes % % Monocytes % % Eosinophils % % Basophils % % Immature Gran # (0.00-0.04) 10*3/uL Neutrophils # (1.80-7.70) 10*3/uL Lymphocytes # (0.90-5.00) 10*3/uL Monocytes # (0.20-1.00) 10*3/uL Eosinophils # (0.04-0.35) 10*3/uL Basophils # (0.00-0.10) 10*3/uL Manual Slide Review PT 13.4 H (10.0-12.5) sec INR 1.3 H (<1.2) APTT 21.2 L (22.0-30.0) sec Sample Site ABG pH (7.35-7.45) ABG pCO2 (35-45) mmHg ABG pO2 (83-108) mmHg ABG HCO3 (21-25) mmol/L ABG Total CO2 (19-24) mmol/L ABG O2 Saturation (94-97) % ABG Base Excess mmol/L James Test Hemoglobin (11.4-16.0) gm/dL FiO2 % Sodium (137-145) mmol/L Potassium (3.5-5.1) mmol/L Chloride (98-107) mmol/L Carbon Dioxide (22-30) mmol/L Anion Gap mmol/L BUN (7-17) mg/dL Creatinine (0.52-1.04) mg/dL Est GFR (CKD-EPI)AfAm (>60 ml/min/1.73 sqM) Est GFR (CKD-EPI)NonAf (>60 ml/min/1.73 sqM) Glucose (74-99) mg/dL Plasma Lactic Acid Memo 3.3 H* (0.7-2.0) mmol/L Calcium (8.4-10.2) mg/dL Magnesium (1.6-2.3) mg/dL Total Bilirubin (0.2-1.3) mg/dL AST (14-36) U/L ALT (4-34) U/L Alkaline Phosphatase (38-126) U/L Troponin I <0.012 (0.000-0.034) ng/mL Total Protein (6.3-8.2) g/dL Albumin (3.5-5.0) g/dL Urine Color Urine Appearance (Clear) Urine pH (5.0-8.0) Ur Specific [place] (1.001-1.035) Urine Protein (Negative) Urine Glucose (UA) (Negative) Urine Ketones (Negative) Urine Blood (Negative) Urine Nitrite (Negative) Urine Bilirubin (Negative) Urine Urobilinogen (<2.0) mg/dL Ur Leukocyte Esterase (Negative) Urine RBC (0-5) /hpf Urine WBC (0-5) /hpf Urine WBC Clumps (None) /hpf Ur Squamous Epith Cells (0-4) /hpf Urine Bacteria (None) /hpf Hyaline Casts (0-2) /lpf Urine Mucus (None) /hpf 02/14/25 02/14/25 Range/Units 14:34 15:11 WBC (4.50-10.00) 10*3/uL RBC (4.10-5.20) 10*6/uL Hgb (12.0-15.0) g/dL Hct (37.2-46.3) % MCV (80.0-97.0) fL MCH (27.0-32.0) pg MCHC (32.0-37.0) g/dL Plt Count (140-440) 10*3/uL MPV (9.5-12.2) fL Immature Gran % (Auto) % Neutrophils % % Lymphocytes % % Monocytes % % Eosinophils % % Basophils % % Immature Gran # (0.00-0.04) 10*3/uL Neutrophils # (1.80-7.70) 10*3/uL Lymphocytes # (0.90-5.00) 10*3/uL Monocytes # (0.20-1.00) 10*3/uL Eosinophils # (0.04-0.35) 10*3/uL Basophils # (0.00-0.10) 10*3/uL Manual Slide Review PT (10.0-12.5) sec INR (<1.2) APTT (22.0-30.0) sec Sample Site r brach ABG pH 7.16 L* (7.35-7.45) ABG pCO2 57 H (35-45) mmHg ABG pO2 83 (83-108) mmHg ABG HCO3 20 L (21-25) mmol/L ABG Total CO2 22 (19-24) mmol/L ABG O2 Saturation 95.4 (94-97) % ABG Base Excess -8.6 mmol/L James Test na Hemoglobin 10.2 L (11.4-16.0) gm/dL FiO2 50 % Sodium (137-145) mmol/L Potassium (3.5-5.1) mmol/L Chloride (98-107) mmol/L Carbon Dioxide (22-30) mmol/L Anion Gap mmol/L BUN (7-17) mg/dL Creatinine (0.52-1.04) mg/dL Est GFR (CKD-EPI)AfAm (>60 ml/min/1.73 sqM) Est GFR (CKD-EPI)NonAf (>60 ml/min/1.73 sqM) Glucose (74-99) mg/dL Plasma Lactic Acid Memo (0.7-2.0) mmol/L Calcium (8.4-10.2) mg/dL Magnesium (1.6-2.3) mg/dL Total Bilirubin (0.2-1.3) mg/dL AST (14-36) U/L ALT (4-34) U/L Alkaline Phosphatase (38-126) U/L Troponin I (0.000-0.034) ng/mL Total Protein (6.3-8.2) g/dL Albumin (3.5-5.0) g/dL Urine Color Yellow Urine Appearance Cloudy H (Clear) Urine pH 6.5 (5.0-8.0) Ur Specific [place] 1.024 (1.001-1.035) Urine Protein 3+ H (Negative) Urine Glucose (UA) Trace H (Negative) Urine Ketones Negative (Negative) Urine Blood Small H (Negative) Urine Nitrite Negative (Negative) Urine Bilirubin Negative (Negative) Urine Urobilinogen <2.0 (<2.0) mg/dL Ur Leukocyte Esterase Negative (Negative) Urine RBC 22 H (0-5) /hpf Urine WBC 6 H (0-5) /hpf Urine WBC Clumps Few H (None) /hpf Ur Squamous Epith Cells 4 (0-4) /hpf Urine Bacteria Rare H (None) /hpf Hyaline Casts 7 H (0-2) /lpf Urine Mucus Many H (None) /hpf Critical Care Time Critical Care Time: Yes Total Critical Care Time: 35 Disposition Clinical Impression: Acute hypoxic on chronic hypercapnic respiratory failure, Unresponsive, Dehydration, Septic shock Disposition: ADMITTED IP TO THIS HOSP Condition: Serious Is patient prescribed a controlled substance at d/c from ED?: No Referrals: None,Stated [Primary Care Provider] - 1-2 days Time of Disposition: 15:31
[2025-02-14 13:02] LABS: Basophils # (A) 0.08 10*3/uL (0.00-0.10); Eosinophils # (A) 0.16 10*3/uL (0.04-0.35); Eosinophils % (A) 1.9 %; HCT 36.1 % (37.2-46.3); HGB 10.7 g/dL (12.0-15.0); Lymphocytes # (A) 3.33 10*3/uL (0.90-5.00); Lymphocytes % (A) 39.6 %; MCH 26.5 pg (27.0-32.0); MCHC 29.6 g/dL (32.0-37.0); MCV 89.4 fL (80.0-97.0); Mean Platelet Volume 11.1 fL (9.5-12.2); Monocytes # (A) 1.01 10*3/uL (0.20-1.00); Neutrophils # (A) 3.76 10*3/uL (1.80-7.70); Neutrophils % (A) 44.8 %; RBC 4.04 10*6/uL (4.10-5.20); RDW 15.8 % (11.5-14.5)
[2025-02-14 13:04] LABS: Platelet Count 209 10*3/uL (140-440)
[2025-02-14] MEDS: NOREPINEPHRINE 32 MG in SODIUM CHLORIDE 0.9% 218 ML IV ONE (13:10)
[2025-02-14] MEDS: KETAMINE 10 MG/ML 20 ML VIAL IV STA (13:20)
[2025-02-14 13:22] LABS: ALT 33 U/L (4-34); African American GFR (CKD) 46 (>60 ml/min/1.73 sqM); Anion Gap 13 mmol/L; Blood Urea Nitrogen 29 mg/dL (7-17); Calcium 8.2 mg/dL (8.4-10.2); Carbon Dioxide 18 mmol/L (22-30); Chloride 105 mmol/L (98-107); Glucose 161 mg/dL (74-99); Non-African American GFR(CKD) 40 (>60 ml/min/1.73 sqM); Sodium 136 mmol/L (137-145); Total Bilirubin 0.6 mg/dL (0.2-1.3)
[2025-02-14 13:49] LABS: Magnesium 1.9 mg/dL (1.6-2.3); Potassium 4.3 mmol/L (3.5-5.1); Total Protein 6.6 g/dL (6.3-8.2)
[2025-02-14 13:50] LABS: AST 47 U/L (14-36); Albumin 3.5 g/dL (3.5-5.0); Alkaline Phosphatase 94 U/L (38-126)
--- NOTE | 2025-02-14 13:50 | XR ---
EXAMINATION TYPE: XR chest 1V portable DATE OF EXAM: 02/14/2025 1:41 PM COMPARISON: 12/08/2024 CLINICAL INDICATION: Female, 54 years old with history of AMS/MARIELLE, TECHNIQUE: XR chest 1V portable view(s) obtained. FINDINGS: Extensive fixation screws and rods are present through the thoracic spine The heart size is normal. The pulmonary vasculature is prominent. The lungs are clear. IMPRESSION: 1. Correlation for volume overload. [facility], , 02/14/2025 1:48 PM
[2025-02-14 14:17] LABS: INR 1.3 (<1.2); Partial Thromboplastin Time 21.2 sec (22.0-30.0); Prothrombin Time 13.4 sec (10.0-12.5)
--- NOTE | 2025-02-14 14:50 | CT ---
EXAMINATION TYPE: CT brain wo con DATE OF EXAM: 02/14/2025 COMPARISON: 11/06/2024 CLINICAL INDICATION: Female, 54 years old with history of AMS; PHH, Pt brought in by EMS, pt went unr esponsive at Dr's office. CT DLP: 1093.4 mGycm Automated exposure control for dose reduction was used. Findings: The ventricles, basal cisterns and sulci over the convexities are within normal limits and there is n o mass effect or shift of midline structures. No abnormal density is seen throughout the brain parenchyma and there is no acute intra or extra-axia l hemorrhage. The posterior fossa including the brainstem, fourth ventricle and cerebellar pontine angles appear no rmal. Intraorbital contents appear normal and symmetric. Visualized paranasal sinuses and mastoid air cells are well aerated. The calvarium is intact. IMPRESSION: No significant abnormality seen. There is no acute bleed or mass effect. [facility], , 02/14/2025 2:48 PM
--- NOTE | 2025-02-14 14:56 | CT ---
EXAMINATION TYPE: CT abdomen pelvis w con DATE OF EXAM: 02/14/2025 COMPARISON: 05/24/2021 CLINICAL INDICATION: Female, 54 years old with history of Pain/distention; PHH, Abdominal pain and di stention. Did not give oral contrast. TECHNIQUE: Performed without Oral Contrast and with IV Contrast, patient injected with 80 ml mL of Isovue 300. CT DLP: [address] CTDI: mGy Automated exposure control for dose reduction was used. FINDINGS: There is a small right pleural effusion. There is a PEG tube within the stomach. The gallbladder is normal without distention, wall thickening, or gallstones. There is no biliary hal marina dilatation. There is no focal mass or organomegaly involving the liver, pancreas, spleen or adrenal glands. There is no solid renal mass or hydronephrosis and there is homogeneous contrast enhancement of the r enal parenchyma. The caliber the abdominal aorta is normal is no retroperitoneal adenopathy or hemorr deangelo. The bowel loops are normal in caliber and there is no evidence of dilatation or obstruction. No infla mmatory changes are identified in the bowel wall or mesentery. There is mild ascites in the gallbladder fossa and adjacent to the liver. There is a small amount of free fluid within the pelvis There is surgical absence of uterus. There is a Howell catheter within. There are postsurgical changes in the dorsal spine The osseous structures and soft tissues are intact. IMPRESSION: 1. Small right pleural effusion. 2. Mild ascites 3. PEG tube within the stomach. 4. Howell catheter within the urinary bladder. [facility], , 02/14/2025 2:53 PM
[2025-02-14 15:06] LABS: Appearance,Urine Cloudy (Clear); Bacteria,Urine Rare /hpf; Bilirubin,Urine Negative (Negative); Blood,Urine Small (Negative); Color,Urine Yellow; Glucose,Urine (UA) Trace (Negative); Hyaline Casts,Urine 7 /lpf (0-2); Ketones,Urine Negative (Negative); Leukocyte Esterase,Urine Negative (Negative); Mucus,Urine Many /hpf; Nitrite,Urine Negative (Negative); PH, Urine 6.5 (5.0-8.0); Protein,Urine 3+ (Negative); RBC,Urine 22 /hpf (0-5); Specific Gravity,Urine 1.024 (1.001-1.035); Squamous Epithelial Cell,Urine 4 /hpf (0-4); Urobilinogen,Urine <2.0 mg/dL (<2.0); WBC,Urine 6 /hpf (0-5)
[2025-02-14 15:16] LABS: ABG Base Excess -8.6 mmol/L; ABG HCO3 20 mmol/L (21-25); ABG Oxygen Saturation 95.4 % (94-97); ABG PCO2 57 mmHg (35-45); ABG PO2 83 mmHg (83-108); ABG TCO2 22 mmol/L (19-24)
[2025-02-14 15:17] LABS: ABG PH 7.16 (7.35-7.45)
[2025-02-14] MEDS ORDERED: NALOXONE 0.4 MG/ML 1 ML VIAL IV PRN (15:24)
[2025-02-14] MEDS ORDERED: ACETAMINOPHEN SUPPOSITORY 650 MG SUPP RECTAL PRN (15:24)
[2025-02-14] MEDS ORDERED: IPRATROPIUM-ALBUTEROL 3 ML NEB INHALATION PRN (15:24)
[2025-02-14] MEDS ORDERED: VANCOMYCIN IV PER PHARMACY 1 EACH MISC MISCELLANE PRN (15:26)
[2025-02-14] MEDS: VANCOMYCIN 1,000 MG in SODIUM CHLORIDE 0.9% 250 ML IVPB STA (16:04)
[2025-02-14] MEDS: LACTATED RINGERS 1,000 ML IV SCH (16:08)
--- NOTE | 2025-02-14 16:09 | P.CNPUL ---
History of Present Illness Consult date: 02/14/25 Requesting physician: Sergo Echavarria Reason for consult: other (Mechanical ventilator/critical care management) Chief complaint: Syncopal episode History of present illness: This is a 54-year-old female patient with a known history of chronic obstructive pulmonary disease, chronic hypoxic respiratory failure, previous significant spine and neck surgery requiring prolonged mechanical ventilation and subsequent tracheostomy tube placement, seizure disorder, hypothyroidism, anxiety/depre ssion, hypertension, hyperlipidemia, coronary artery disease. She was seen in our office earlier today and had what appeared to be either a seizure or syncopal episode and was sent here to the emergency room for the same. CT scan of the brain revealed no significant abnormality. No acute bleed or mass effect. CT scan of the abdomen revealed a small right pleural effusion. Mild ascites. PEG tube catheter in place. Howell catheter in place. The patient remained obtunded and hypotensive and was placed on the mechanical ventilator. Currently on assist-control mode at a rate of 20. Tidal volume 300. FiO2 50% and a PEEP of 5. Follow-up blood gases revealed a PO2 of 83, PCO2 of 57 and a pH of 7.23. Her respiratory rate was increased to 26. She is also requiring norepinephrine currently at 0.15 mcg/kg/min. She is on propofol at 10 mcg/kg/min. White count 8.0. Hemoglobin 10.7. Platelets 209. Sodium 136. Potassium 4.3. Bicarb 18. BUN 29. Creatinine 1.51. Glucose 161. Urinalysis cloudy with 3+ protein and trace glucose and few WBCs. She is seen in consultation in the emergency department. Remains obtunded. Currently afebrile. Mean arterial pressure 74. Review of Systems ROS unobtainable: due to endotracheal tube Past Medical History Past Medical History: Asthma, Heart Failure, COPD, Deep Vein Thrombosis (DVT), Eye Disorder, Fibromyalgia, GERD/Reflux, Hyperlipidemia, Hypertension, Memory Impairment, Myocardial Infarction (PA), Osteoarthritis (OA), Pneumonia, Seizure Disorder, Skin Disorder, Syncope, Thyroid Disorder Additional Past Medical History / Comment(s): IBS, colitis, restless legs flexed syndrome, daily migraines, Vitamin D deficiency, benign left breast mass, gastritis, short term memory loss. Vision - "sees an orange aura." BILAT CATARACTS Last seizure 09/22/2024, PT STATES THAT DR. VILLALBA IS AWARE"Legs are weak and balance is off." checked bone marrow for cancer. Pt has pressure ulcer over lower incision from surgery on 09/09/2024. States she had a blood clot in leg but not sure which leg or when Last Myocardial Infarction Date:: 2009 History of Any Multi-Drug Resistant Organisms: None Reported Past Surgical History: Back Surgery, Hysterectomy, Orthopedic Surgery Additional Past Surgical History / Comment(s): D&C, bilateral knee arthroscopy. Past Anesthesia/Blood Transfusion Reactions: No Reported Reaction Additional Past Anesthesia/Blood Transfusion Reaction / Comment(s): severe anxiety coming out of anesthesia,no hx blood transfusion Past Psychological History: Anxiety, Bipolar, Depression, PTSD Smoking Status: Current every day smoker Past Alcohol Use History: None Reported Past Drug Use History: Marijuana - Past Family History Father Family Medical History: Cancer Additional Family Medical History / Comment(s): Father of pancreatic cancer at the age of 62yrs. and lung cancer Mother Family Medical History: Congestive Heart Failure (CHF) Additional Family Medical History / Comment(s): Mother of CHF at the age of 60yrs. Brother(s) Additional Family Medical History / Comment(s): Patient had 1 brother that at 5 months of age. Sister(s) Family Medical History: Deep Vein Thrombosis (DVT) Additional Family Medical History / Comment(s): Patient has one sister with history of depression and bipolar. Patient has 2 half-sisters and one at age 26 from overdose. Patient does not have any children. Medications and Allergies Home Medications Medication Instructions Recorded Confirmed Type Asenapine Maleate [Saphris] 10 mg SUBLINGUAL BID 04/30/17 12/04/24 History Pantoprazole Sodium [Protonix] 40 mg PEG/G-TUBE BID 01/07/19 12/04/24 History Topiramate [Trokendi Xr] 100 mg PEG/G-TUBE DAILY 04/15/21 12/04/24 History Albuterol Sulfate [Proair Hfa] 2 puff INHALATION RT-Q6H PRN 05/10/21 12/04/24 History Prazosin HCl [Minipress] 2 mg PEG/G-TUBE BID 05/10/21 12/04/24 History rOPINIRole HCL [Requip] 2 mg PEG/G-TUBE BID 05/10/21 12/04/24 History Fluticasone/Umeclidin/Vilanter 1 puff INHALATION RT-DAILY 12/10/22 12/04/24 History [Trelegy Ellipta 100-62.5-25] Brivaracetam [Briviact] 100 mg PEG/G-TUBE BID 07/10/23 12/04/24 History Budesonide [Pulmicort] 0.5 mg INHALATION RT-Q12H PRN 07/27/23 12/04/24 History Cetirizine HCl [Zyrtec] 10 mg PEG/G-TUBE DAILY 07/27/23 12/04/24 History Fluticasone Nasal [place] [Flonase 1 spr EA NOSTRIL DAILY 07/27/23 12/04/24 History Nasal [place]] Levothyroxine Sodium [Synthroid] 88 mcg PEG/G-TUBE DAILY 07/27/23 12/04/24 History Propranolol [Inderal] 20 mg PEG/G-TUBE BID 07/27/23 12/04/24 History Acetaminophen Tab [Tylenol] 500 mg PEG/G-TUBE Q6HR PRN 10/25/24 12/04/24 History Cholecalciferol (Vitamin D3) 50 mcg PEG/G-TUBE DAILY 10/25/24 12/04/24 History [Vitamin D3 (50 Mcg = 2000 Iu)] Montelukast [Singulair] 10 mg PEG/G-TUBE HS 10/25/24 12/04/24 History busPIRone HCL 15 mg PEG/G-TUBE TID 10/25/24 12/04/24 History Enoxaparin [Lovenox] 40 mg SQ DAILY each 12/01/24 12/04/24 Rx Formoterol Fumarate [Perforomist] 20 mcg INHALATION RT-BID ml 12/01/24 12/04/24 Rx Ipratropium-Albuterol Nebulize 3 ml INHALATION RT-QID each 12/01/24 12/04/24 Rx [Duoneb 0.5 mg-3 mg/3 ml Soln] Fluconazole [Diflucan] 100 mg PEG/G-TUBE DAILY 12/04/24 12/04/24 History Folic Acid 0.4 mg PEG/G-TUBE DAILY 12/04/24 12/04/24 History Furosemide [Lasix] 20 mg PEG/G-TUBE DAILY 12/04/24 12/04/24 History Gabapentin [Neurontin] 100 mg PEG/G-TUBE TID 12/04/24 12/04/24 History Ipratropium-Albuterol Nebulize 3 ml INHALATION RT-Q2H PRN 12/04/24 12/04/24 History [Duoneb 0.5 mg-3 mg/3 ml Soln] Loperamide [Imodium] 2 mg PEG/G-TUBE Q6H PRN 12/04/24 12/04/24 History Magnesium Hydroxide [Milk of 7,200 mg PEG/G-TUBE DAILY PRN 12/04/24 12/04/24 History Magnesia Concentrate] Multivitamins, Thera [Multivitamin 1 tab PEG/G-TUBE DAILY 12/04/24 12/04/24 History (formulary)] Sertraline HCl 200 mg PEG/G-TUBE DAILY 12/04/24 12/04/24 History Tamsulosin HCl [Flomax] 0.4 mg PEG/G-TUBE DAILY 12/04/24 12/04/24 History ALPRAZolam [Xanax] 0.5 mg PO BID PRN #4 tab 12/12/24 Rx HYDROcodone/APAP 5-325MG [[place] 1 tab PEG/G-TUBE Q6HR PRN #4 tab 12/12/24 Rx 5-325] Nicotine 14Mg/24Hr Patch [Habitrol] 1 patch TRANSDERM DAILY patch 12/12/24 Rx Thiamine [Vitamin B-1] 100 mg PO DAILY tab 12/12/24 Rx Allergies Allergy/AdvReac Type Severity Reaction Status Date / Time bee venom protein (honey bee) Allergy Anaphylaxis Verified 02/14/25 12:33 Physical Exam Vitals: Vital Signs Temp Pulse Resp BP Pulse Ox FiO2 02/14/25 14:42 97.5 F L 74 20 95/64 100 02/14/25 14:09 69 20 97/64 100 02/14/25 13:52 75 20 107/76 100 02/14/25 13:37 50 02/14/25 13:32 76 20 85/60 72 L 02/14/25 13:28 50 02/14/25 12:59 67 20 46/32 56 L 02/14/25 12:28 64 12 50/21 97 02/14/25 12:25 40 Intake and Output 02/14/25 02/14/25 02/14/25 06:59 14:59 22:59 Intake Total 6.727 Balance 6.727 Intake: Intake, IV Titration 6.727 Amount Norepinephrine 32 mg In 6.727 Sodium Chloride 0.9% 218 ml @ 0.03 MCG/KG/MIN 0. 893 mls/hr IV .Q24H ONE Rx#:[id number] Other: Weight 63.503 kg GENERAL EXAM: Intubated, sedated 54-year-old female patient on the mechanical ventilator. HEAD: Normocephalic. EYES: Normal reaction of pupils, equal size. NOSE: Clear with pink turbinates. THROAT: #4 Shiley cuffed tracheostomy tube secured in place. No erythema or exudates. NECK: No masses, no JVD. CHEST: No chest wall deformity. LUNGS: Equal air entry with no crackles, wheeze, rhonchi or dullness. CVS: S1 and S2 normal with no audible murmur, regular rhythm. ABDOMEN: PEG tube exit site clean and dry. No hepatosplenomegaly, normal bowel sounds, no guarding or rigidity. SPINE: No scoliosis or deformity SKIN: No rashes CENTRAL NERVOUS SYSTEM: Obtunded, sedated, tone is normal in all 4 extremities. EXTREMITIES: There is no peripheral edema. No clubbing, no cyanosis. Peripheral pulses are intact. Results - Laboratory Findings CBC and BMP: 02/14/25 12:57 02/14/25 12:57 ABG ABG pH 7.16 (7.35-7.45) L* 02/14/25 15:11 ABG pCO2 57 mmHg (35-45) H 02/14/25 15:11 ABG pO2 83 mmHg (83-108) 02/14/25 15:11 ABG O2 Saturation 95.4 % (94-97) 02/14/25 15:11 PT/INR, D-dimer PT 13.4 sec (10.0-12.5) H 02/14/25 13:50 INR 1.3 (<1.2) H 02/14/25 13:50 Abnormal lab findings: Abnormal Labs 02/14/25 02/14/25 02/14/25 12:43 12:57 12:57 RBC 4.04 L Hgb 10.7 L Hct 36.1 L MCH 26.5 L MCHC 29.6 L Immature Gran # 0.06 H Monocytes # 1.01 H PT INR APTT ABG pH 7.13 L* ABG pCO2 52 H ABG pO2 75 L ABG HCO3 17 L ABG O2 Saturation 92.8 L Hemoglobin 10.1 L Sodium 136 L Carbon Dioxide 18 L BUN 29 H Creatinine 1.51 H Glucose 161 H Plasma Lactic Acid Memo Calcium 8.2 L AST 47 H Urine Appearance Urine Protein Urine Glucose (UA) Urine Blood Urine RBC Urine WBC Urine WBC Clumps Urine Bacteria Hyaline Casts Urine Mucus 02/14/25 02/14/25 02/14/25 12:57 13:50 14:34 RBC Hgb Hct MCH MCHC Immature Gran # Monocytes # PT 13.4 H INR 1.3 H APTT 21.2 L ABG pH ABG pCO2 ABG pO2 ABG HCO3 ABG O2 Saturation Hemoglobin Sodium Carbon Dioxide BUN Creatinine Glucose Plasma Lactic Acid Memo 3.3 H* Calcium AST Urine Appearance Cloudy H Urine Protein 3+ H Urine Glucose (UA) Trace H Urine Blood Small H Urine RBC 22 H Urine WBC 6 H Urine WBC Clumps Few H Urine Bacteria Rare H Hyaline Casts 7 H Urine Mucus Many H 02/14/25 15:11 RBC Hgb Hct MCH MCHC Immature Gran # Monocytes # PT INR APTT ABG pH 7.16 L* ABG pCO2 57 H ABG pO2 ABG HCO3 20 L ABG O2 Saturation Hemoglobin 10.2 L Sodium Carbon Dioxide BUN Creatinine Glucose Plasma Lactic Acid Memo Calcium AST Urine Appearance Urine Protein Urine Glucose (UA) Urine Blood Urine RBC Urine WBC Urine WBC Clumps Urine Bacteria Hyaline Casts Urine Mucus - Diagnostic Findings Chest x-ray: image reviewed Assessment and Plan Assessment: Unresponsive, obtunded of unclear etiology. Possible seizure and remains postictal versus syncopal episode Acute hypoxemic respiratory failure secondary to above requiring mechanical ventilatory support. Uncuffed trach changed out to a cuffed #4 Shiley History of prolonged respiratory failure requiring tracheostomy and PEG tube placement Multiple neck and spine surgeries including thoracolumbar wound dehiscence Advanced chronic obstructive pulmonary disease Hypertension Hyperlipidemia Coronary disease History of congestive heart failure History of seizure disorder Hypothyroidism History of anxiety/depression/PTSD Plan: The patient was seen and evaluated Chest x-ray, labs and medications reviewed Arterial blood gases reviewed Mechanical ventilator adjustments made CT scan of the brain reviewed no acute process Remains hypotensive requiring norepinephrine Lightly sedated on propofol Initiate DuoNeb and elations Initiated on vancomycin To be transferred up to the intensive care unit We will continue to follow and make further recommendations based on her clinical status I have personally seen and examined the patient, performed the documentation and the assessment and plan as written. Number of minutes spent on the visit: 20 Dictation was produced using [employer] ([employer] dictation software. Please excuse any grammatical, word or spelling errors. Time with Patient: Greater than 30
[2025-02-14] MEDS: IPRATROPIUM-ALBUTEROL 3 ML NEB INHALATION SCH (16:39)
[2025-02-14] MEDS: FORMOTEROL FUMARATE 20 MCG/2 ML NEBU INHALATION SCH (19:54)
[2025-02-14] MEDS: BUDESONIDE 1 MG/2 ML NEBU INHALATION SCH (19:54)
[2025-02-14] MEDS: methylPREDNISolone SOD SUCCI 125 MG/2 ML VIAL IV SCH (20:10)
[2025-02-14] MEDS: PIPERACILLIN-TAZOBACTAM 3.375 GM in SODIUM CHLORIDE 0.9% 100 ML IVPB SCH (20:13)
--- NOTE | 2025-02-14 20:47 | HP ---
HISTORY AND PHYSICAL CHIEF COMPLAINT: Shortness of breath and change in mental status. HISTORY OF PRESENT ILLNESS: This 54-year-old woman with a past medical history of multiple medical problems including chronic tracheostomy and as well as COPD, was recently admitted with surgical wound dehiscence on thoracic spine. Currently, the patient was found to be short of breath and obtunded and the patient was taken to [facility]. The patient was mechanically ventilated, intubated and started on broad-spectrum IV antibiotics and is now admitted for further evaluation and treatment. There is no history of fever, rigors, or chills. The patient is unable to provide a coherent history at this time. The patient is being mechanically intubated through the tracheostomy. Dr. Starkey's evaluation is in progress. PAST MEDICAL HISTORY: History of COPD, CHF, DVT. Rest of the history and rest of the chart is also reviewed. HOME MEDICATIONS: Reviewed, include. Dose and rest of medications reviewed. ALLERGIES: Bee venom. Rest of allergies noted. FAMILY HISTORY: History of pancreatic cancer and lung cancer. SOCIAL HISTORY: Previous history of smoking. REVIEW OF SYSTEMS: A 14-point review of systems negative except as mentioned earlier. PHYSICAL EXAMINATION: VITAL SIGNS: Pulse is 80, blood pressure 135/80, respirations 27, and pulse oximetry 100% on mechanical ventilation. Amortization Clerk vent settings are noted. HEENT: Conjunctivae normal. NECK: Tracheostomy. CARDIOVASCULAR: S1, S2. RESPIRATIONS: Bilateral scattered rhonchi next. ABDOMEN: Soft, nontender. LEGS: No edema. No swelling. NERVOUS SYSTEM: Could not be tested, sedated. LABORATORY DATA: Reviewed. ASSESSMENT: 1. Chronic obstructive pulmonary disease exacerbation with acute hypoxic hypercarbic respiratory failure, on mechanical ventilation. 2. History of asthma. 3. History of deep vein thrombosis. 4. History of fibromyalgia. 5. History of congestive heart failure. 6. History of myocardial infarction. 7. History of pneumonia. 8. History of anxiety, bipolar, depression, posttraumatic stress disorder. 9. History of recent surgical wound dehiscence of thoracic spine. 10.History of seizure disorder. 11.Multiple complex medical issues. RECOMMENDATION AND DISCUSSION: I would recommend to continue the mechanical ventilation, continue the broad- spectrum IV and bronchodilators, steroids, closely follow with Dr. Starkey. The patient is hypothermic and hypotensive also, warming blanket and Levophed drip. Closely monitor. Guarded prognosis. Further recommendations to follow. Continue with the current medications. Initiate Zosyn at this time and obtain the cultures and may be tapered on antibiotics subsequently, once the patient is improving. Also, recommend Infectious Disease evaluation with Dr. Chang. Also, see orders for details. MMODL / IJN: [id number] / MTDD
[2025-02-14 21:54] LABS: Glucose,Whole Blood 95 mg/dL (70-110)
[2025-02-14 23:15] LABS: Glucose,Whole Blood 112 mg/dL (70-110)
[2025-02-14 23:27] LABS: ABG Base Excess -6.6 mmol/L; ABG HCO3 22 mmol/L (21-25); ABG Oxygen Saturation 93.3 % (94-97); ABG PCO2 57 mmHg (35-45); ABG PO2 74 mmHg (83-108); ABG TCO2 24 mmol/L (19-24); Allen Test Performed? Yes
[2025-02-14 23:29] LABS: ABG PH 7.19 (7.35-7.45)
[2025-02-14] MEDS ORDERED: ACETAMINOPHEN TAB 500 MG TAB PO PRN (23:43)
--- NOTE | 2025-02-15 00:13 | P.PCN ---
Date of Procedure: 02/15/25 Preoperative Diagnosis: Acute hypoxemic and hypercapnic respiratory failure; hypotension/shock Postoperative Diagnosis: Acute hypoxemic and hypercapnic respiratory failure; hypotension/shock Procedure(s) Performed: Insertion of left brachial arterial line Indications for Procedure: Hemodynamic monitoring and frequent blood draws Description of Procedure: Informed consent was obtained, and a procedural timeout was performed . The patient was placed in supine position. The left brachial region was prepared in a sterile fashion, and a sterile drape was applied. The left brachial artery was palpated, easily cannulated, and a guidewire was placed. A Cook catheter was inserted over the guidewire, and the guidewire was removed. There was good arterial blood flow, good arterial waveform, and no complications. The line was secured with using a 3-0 silk suture.
[2025-02-15] MEDS: HEPARIN SODIUM,PORCINE 5,000 UNIT/ML 1 ML VIAL SQ SCH (00:57)
[2025-02-15] MEDS: FUROSEMIDE 20 MG TAB PEG/G-TUBE SCH (00:57)
[2025-02-15] MEDS: CYCLOBENZAPRINE 10 MG TAB PEG/G-TUBE SCH (00:58)
--- NOTE | 2025-02-15 01:21 | XR ---
EXAM: XR Abdomen, 1 View CLINICAL HISTORY: ITS.REASON XR Reason: peg tube placement- TECHNIQUE: Frontal supine view of the abdomen/pelvis. COMPARISON: No relevant prior studies available. FINDINGS: Gastrointestinal tract: Unremarkable. No dilation. Bones/joints: Posterior thoracolumbar fusion hardware. Cement kyphoplasty at the inferior-most level. Tubes, lines and devices: Peg tube projects over the stomach. No contrast was injected. IMPRESSION: Peg tube projects over the stomach. No contrast was injected.
[2025-02-15 04:51] LABS: ABG Base Excess -4.3 mmol/L; ABG HCO3 22 mmol/L (21-25); ABG Oxygen Saturation 97.4 % (94-97); ABG PCO2 47 mmHg (35-45); ABG PH 7.29 (7.35-7.45); ABG PO2 90 mmHg (83-108); ABG TCO2 24 mmol/L (19-24)
[2025-02-15 04:52] LABS: Allen Test Performed? no
[2025-02-15 05:01] LABS: Basophils # (A) 0.06 10*3/uL (0.00-0.10); Basophils % (A) 0.7 %; HCT 31.6 % (37.2-46.3); HGB 9.6 g/dL (12.0-15.0); Lymphocytes # (A) 0.57 10*3/uL (0.90-5.00); Lymphocytes % (A) 6.7 %; MCH 26.5 pg (27.0-32.0); MCHC 30.4 g/dL (32.0-37.0); MCV 87.3 fL (80.0-97.0); Mean Platelet Volume 8.3 fL (9.5-12.2); Monocytes # (A) 0.24 10*3/uL (0.20-1.00); Monocytes % (A) 2.8 %; Neutrophils # (A) 7.61 10*3/uL (1.80-7.70); Neutrophils % (A) 89.1 %; Platelet Count 304 10*3/uL (140-440); RBC 3.62 10*6/uL (4.10-5.20); RDW 15.6 % (11.5-14.5); WBC 8.54 10*3/uL (4.50-10.00)
[2025-02-15 05:16] LABS: African American GFR (CKD) 86 (>60 ml/min/1.73 sqM); Anion Gap 10 mmol/L; Blood Urea Nitrogen 21 mg/dL (7-17); Carbon Dioxide 23 mmol/L (22-30); Chloride 106 mmol/L (98-107); Glucose 98 mg/dL (74-99); Magnesium 1.4 mg/dL (1.6-2.3); Non-African American GFR(CKD) 75 (>60 ml/min/1.73 sqM); Potassium 2.8 mmol/L (3.5-5.1); Sodium 139 mmol/L (137-145)
[2025-02-15] MEDS ORDERED: Magnesium Replacement Protocol 1 EACH MISC MISCELLANE PRN (05:39)
[2025-02-15] MEDS ORDERED: Potassium Replacement Protocol 1 EACH MISC MISCELLANE PRN (05:39)
[2025-02-15] MEDS: MAGNESIUM SULFATE-D5W PMX 1 GM in DEXTROSE/WATER 1 100ML.BAG IVPB SCH (05:58)
[2025-02-15] MEDS: POTASSIUM BICARBONATE/CIT AC 20 MEQ TABLET.EFF NG-TUBE SCH (05:59)
[2025-02-15] MEDS: PANTOPRAZOLE 40 MG/10 ML VIAL IV SCH (08:15)
[2025-02-15] MEDS: TOPIRAMATE 25 MG TAB PEG/G-TUBE SCH (08:16)
[2025-02-15] MEDS: LEVOTHYROXINE 88 MCG TAB PEG/G-TUBE SCH (08:16)
[2025-02-15] MEDS: VANCOMYCIN 1,000 MG in SODIUM CHLORIDE 0.9% 250 ML IVPB SCH ×2 (08:18→21:28)
--- NOTE | 2025-02-15 08:36 | XR ---
EXAMINATION TYPE: XR chest 1V portable DATE OF EXAM: 02/15/2025 3:58 AM COMPARISON: None. CLINICAL INDICATION: Female, 54 years old with history of chf, TECHNIQUE: XR chest 1V portable view(s) obtained. FINDINGS: The heart size is normal. The pulmonary vasculature is normal. Minimal right costophrenic angle pleural fluid may be present Pedicle screws and fixation rods throughout the thoracic spine IMPRESSION: 1. Normal right pleural effusion. [facility], , 02/15/2025 8:34 AM
[2025-02-15] MEDS: DEXMEDETOMIDINE/0.9% NACL(PMX) 400 MCG in EMPTY BAG 1 BAG IV SCH (09:29)
[2025-02-15] MEDS: HALOPERIDOL LACTATE 5 MG/ML 1 ML VIAL IVP PRN (12:52)
[2025-02-15 13:35] LABS: HCT 28.5 % (37.2-46.3); HGB 8.8 g/dL (12.0-15.0); MCH 26.8 pg (27.0-32.0); MCHC 30.9 g/dL (32.0-37.0); MCV 86.9 fL (80.0-97.0); Mean Platelet Volume 8.7 fL (9.5-12.2); Platelet Count 267 10*3/uL (140-440); RBC 3.28 10*6/uL (4.10-5.20); RDW 15.8 % (11.5-14.5); WBC 8.37 10*3/uL (4.50-10.00)
--- NOTE | 2025-02-15 14:18 | P.PN ---
Subjective Progress Note Date: 02/15/25 Principal diagnosis: Acute hypoxic and hypercapnic respiratory failure and sepsis. This is a 54-year-old female patient with a known history of chronic obstructive pulmonary disease, chronic hypoxic respiratory failure, previous significant spine and neck surgery requiring prolonged mechanical ventilation and subsequent tracheostomy tube placement, seizure disorder, hypothyroidism, anxiety/depression, hypertension, hyperlipidemia, coronary artery disease. She was seen in our office earlier today and had what appeared to be either a seizure or syncopal episode and was sent here to the emergency room for the same. CT scan of the brain revealed no significant abnormality. No acute bleed or mass effect. CT scan of the abdomen revealed a small right pleural effusion. Mild ascites. PEG tube catheter in place. Howell catheter in place. The patient remained obtunded and hypotensive and was placed on the mechanical ventilator. Currently on assist-control mode at a rate of 20. Tidal volume 300. FiO2 50% and a PEEP of 5. Follow-up blood gases revealed a PO2 of 83, PCO2 of 57 and a pH of 7.23. Her respiratory rate was increased to 26. She is also requiring norepinephrine currently at 0.15 mcg/kg/min. She is on propofol at 10 mcg/kg/min. White count 8.0. Hemoglobin 10.7. Platelets 209. Sodium 136. Potassium 4.3. Bicarb 18. BUN 29. Creatinine 1.51. Glucose 161. Urinalysis cloudy with 3+ protein and trace glucose and few WBCs. She is seen in consultation in the emergency department. Remains obtunded. Currently afebrile. Mean arterial pressure 74. Patient was seen today on 02/15/2025, remains in the ICU, intubated and mechanically ventilated, patient is on assist-control rate of 30 tidal volume 350 FiO2 50% PEEP of 5 ABG showed a pO2 of 90 pCO2 47 pH of 7.29. Patient still on propofol at 40 mcg/kg/min she is also on norepinephrine at 0.04 mcg/kg/min LR at 130 cc/h remains empirically on Zosyn and vancomycin, her blood cultures are positive for gram-positive cocci, I suspect the patient is having bacteremia from her previous surgical wound/spine. Hence we will consult infectious disease will also consult orthopedic to evaluate. Patient was comfortable during my evaluation and she was placed on pressure support of 14 and CPAP, she was tolerating that quite well, however later on patient developed worsening mental status, and agitation, and wanted to be discharged home as soon as possible. Patient was given Haldol, she was also given Precedex, but she remained agitated, she also developed some black tarry stools. Hemoglobin had a minimal drop, hence the patient will be placed back on assist-control mode of mechanical ventilation, will continue with antibiotics, and obviously the patient is not ready for any discharge. She is obviously septic, and she has acute toxic metabolic encephalopathy from her sepsis and septic shock picture. WBC count is 8.3 hemoglobin 8.8, basic metabolic profile is normal potassium is 2.8 BUN is 21 creatinine 0.89 Objective - Vital Signs Vital signs: Vital Signs Temp 98.2 F 02/15/25 12:00 Pulse 81 02/15/25 13:30 Resp 14 02/15/25 13:30 BP 95/53 02/15/25 13:30 Pulse Ox 100 02/15/25 13:30 FiO2 50 02/15/25 13:33 Intake & Output 02/14/25 02/15/25 02/15/25 18:59 06:59 18:59 Intake Total 40.099 1983.466 957.264 Output Total 1600 1005 Balance 40.099 383.466 -47.736 Weight 63.503 kg 53 kg 53 kg Intake: Intake, IV Titration 40.099 1873.466 907.264 Amount Dexmedetomidine/0.9% NaCl 23.475 (Pmx) 400 mcg In Empty Bag 1 bag @ 0.2 MCG/KG/HR 2.65 mls/hr IV .Q24H [facility] Rx#:[id number] Lactated Ringers 1,000 ml 1300 560 @ 75 mls/hr IV .[id number] [facility] Rx#:[id number] Magnesium Sulfate-D5w Pmx 200 1 gm In Dextrose/Water 1 100ml.bag @ 100 mls/hr IVPB Q1H [facility] Rx#: [id number] Norepinephrine 32 mg In 19.493 35.092 2.918 Sodium Chloride 0.9% 218 ml @ 0.03 MCG/KG/MIN 0. 893 mls/hr IV .Q24H ONE Rx#:[id number] Piperacillin-Tazobactam 3 200 .375 gm In Sodium Chloride 0.9% 100 ml @ 25 mls/hr IVPB Q8H [facility] Rx#: [id number] Vancomycin 1,000 mg In 250 Sodium Chloride 0.9% 250 ml @ 125 mls/hr IVPB ONCE [facility] Rx#:[id number] propofoL 1,000 mg In 20.606 138.374 70.871 Empty Bag 1 bag @ 15 MCG/ KG/MIN 5.715 mls/hr IV . [id number] [facility] Rx#:[id number] Oral 0 Other 110 50 Output: Urine 1600 1005 Other: Voiding Method Indwelling Catheter Indwelling Catheter ABP, PAP, CO, CI - Last Documented Arterial Blood Pressure 100/51 - Exam GENERAL EXAM: Intubated, arousable, follows simple instructions patient was calm on propofol, however she became extremely agitated on Precedex and on pressure support and CPAP. HEAD: Normocephalic. EYES: Normal reaction of pupils, equal size. NOSE: Clear with pink turbinates. THROAT: #4 Shiley cuffed tracheostomy tube secured in place. No erythema or exudates. NECK: No masses, no JVD. CHEST: No chest wall deformity. LUNGS: Equal air entry with no crackles, wheeze, rhonchi or dullness. CVS: S1 and S2 normal with no audible murmur, regular rhythm. ABDOMEN: PEG tube exit site clean and dry. No hepatosplenomegaly, normal bowel sounds, no guarding or rigidity. SKIN: No rashes CENTRAL NERVOUS SYSTEM: Arousable follows instructions, no gross deficit, EXTREMITIES: There is no peripheral edema. No clubbing, no cyanosis. Peripheral pulses are intact. - Labs CBC & Chem 7: 02/15/25 13:24 02/15/25 04:50 Labs: Abnormal Lab Results - Last 24 Hours (Table) 02/14/25 02/14/25 02/14/25 Range/Units 12:57 12:57 12:57 RBC (4.10-5.20) 10*6/uL Hgb (12.0-15.0) g/dL Hct (37.2-46.3) % MCH (27.0-32.0) pg MCHC (32.0-37.0) g/dL MPV (9.5-12.2) fL Immature Gran # (0.00-0.04) 10*3/uL Lymphocytes # (0.90-5.00) 10*3/uL Monocytes # 1.01 H (0.20-1.00) 10*3/uL Eosinophils # (0.04-0.35) 10*3/uL PT (10.0-12.5) sec INR (<1.2) APTT (22.0-30.0) sec ABG pH (7.35-7.45) ABG pCO2 (35-45) mmHg ABG pO2 (83-108) mmHg ABG HCO3 (21-25) mmol/L ABG O2 Saturation (94-97) % Hemoglobin (11.4-16.0) gm/dL Sodium 136 L (137-145) mmol/L Potassium (3.5-5.1) mmol/L Carbon Dioxide 18 L (22-30) mmol/L BUN 29 H (7-17) mg/dL Creatinine 1.51 H (0.52-1.04) mg/dL Glucose 161 H (74-99) mg/dL POC Glucose (mg/dL) (70-110) mg/dL Plasma Lactic Acid Memo 3.3 H* (0.7-2.0) mmol/L Calcium 8.2 L (8.4-10.2) mg/dL Magnesium (1.6-2.3) mg/dL AST 47 H (14-36) U/L Urine Appearance (Clear) Urine Protein (Negative) Urine Glucose (UA) (Negative) Urine Blood (Negative) Urine RBC (0-5) /hpf Urine WBC (0-5) /hpf Urine WBC Clumps (None) /hpf Urine Bacteria (None) /hpf Hyaline Casts (0-2) /lpf Urine Mucus (None) /hpf 02/14/25 02/14/25 02/14/25 Range/Units 13:50 14:34 15:11 RBC (4.10-5.20) 10*6/uL Hgb (12.0-15.0) g/dL Hct (37.2-46.3) % MCH (27.0-32.0) pg MCHC (32.0-37.0) g/dL MPV (9.5-12.2) fL Immature Gran # (0.00-0.04) 10*3/uL Lymphocytes # (0.90-5.00) 10*3/uL Monocytes # (0.20-1.00) 10*3/uL Eosinophils # (0.04-0.35) 10*3/uL PT 13.4 H (10.0-12.5) sec INR 1.3 H (<1.2) APTT 21.2 L (22.0-30.0) sec ABG pH 7.16 L* (7.35-7.45) ABG pCO2 57 H (35-45) mmHg ABG pO2 (83-108) mmHg ABG HCO3 20 L (21-25) mmol/L ABG O2 Saturation (94-97) % Hemoglobin 10.2 L (11.4-16.0) gm/dL Sodium (137-145) mmol/L Potassium (3.5-5.1) mmol/L Carbon Dioxide (22-30) mmol/L BUN (7-17) mg/dL Creatinine (0.52-1.04) mg/dL Glucose (74-99) mg/dL POC Glucose (mg/dL) (70-110) mg/dL Plasma Lactic Acid Memo (0.7-2.0) mmol/L Calcium (8.4-10.2) mg/dL Magnesium (1.6-2.3) mg/dL AST (14-36) U/L Urine Appearance Cloudy H (Clear) Urine Protein 3+ H (Negative) Urine Glucose (UA) Trace H (Negative) Urine Blood Small H (Negative) Urine RBC 22 H (0-5) /hpf Urine WBC 6 H (0-5) /hpf Urine WBC Clumps Few H (None) /hpf Urine Bacteria Rare H (None) /hpf Hyaline Casts 7 H (0-2) /lpf Urine Mucus Many H (None) /hpf 02/14/25 02/14/25 02/14/25 Range/Units 16:43 23:14 23:26 RBC (4.10-5.20) 10*6/uL Hgb (12.0-15.0) g/dL Hct (37.2-46.3) % MCH (27.0-32.0) pg MCHC (32.0-37.0) g/dL MPV (9.5-12.2) fL Immature Gran # (0.00-0.04) 10*3/uL Lymphocytes # (0.90-5.00) 10*3/uL Monocytes # (0.20-1.00) 10*3/uL Eosinophils # (0.04-0.35) 10*3/uL PT (10.0-12.5) sec INR (<1.2) APTT (22.0-30.0) sec ABG pH 7.19 L* (7.35-7.45) ABG pCO2 57 H (35-45) mmHg ABG pO2 74 L (83-108) mmHg ABG HCO3 (21-25) mmol/L ABG O2 Saturation 93.3 L (94-97) % Hemoglobin 10.4 L (11.4-16.0) gm/dL Sodium (137-145) mmol/L Potassium (3.5-5.1) mmol/L Carbon Dioxide (22-30) mmol/L BUN (7-17) mg/dL Creatinine (0.52-1.04) mg/dL Glucose (74-99) mg/dL POC Glucose (mg/dL) 112 H (70-110) mg/dL Plasma Lactic Acid Memo 3.4 H* (0.7-2.0) mmol/L Calcium (8.4-10.2) mg/dL Magnesium (1.6-2.3) mg/dL AST (14-36) U/L Urine Appearance (Clear) Urine Protein (Negative) Urine Glucose (UA) (Negative) Urine Blood (Negative) Urine RBC (0-5) /hpf Urine WBC (0-5) /hpf Urine WBC Clumps (None) /hpf Urine Bacteria (None) /hpf Hyaline Casts (0-2) /lpf Urine Mucus (None) /hpf 02/15/25 02/15/25 02/15/25 Range/Units 04:47 04:50 04:50 RBC 3.62 L (4.10-5.20) 10*6/uL Hgb 9.6 L (12.0-15.0) g/dL Hct 31.6 L (37.2-46.3) % MCH 26.5 L (27.0-32.0) pg MCHC 30.4 L (32.0-37.0) g/dL MPV 8.3 L (9.5-12.2) fL Immature Gran # 0.06 H (0.00-0.04) 10*3/uL Lymphocytes # 0.57 L (0.90-5.00) 10*3/uL Monocytes # (0.20-1.00) 10*3/uL Eosinophils # 0.00 L (0.04-0.35) 10*3/uL PT (10.0-12.5) sec INR (<1.2) APTT (22.0-30.0) sec ABG pH 7.29 L (7.35-7.45) ABG pCO2 47 H (35-45) mmHg ABG pO2 (83-108) mmHg ABG HCO3 (21-25) mmol/L ABG O2 Saturation 97.4 H (94-97) % Hemoglobin 9.9 L (11.4-16.0) gm/dL Sodium (137-145) mmol/L Potassium 2.8 L (3.5-5.1) mmol/L Carbon Dioxide (22-30) mmol/L BUN 21 H (7-17) mg/dL Creatinine (0.52-1.04) mg/dL Glucose (74-99) mg/dL POC Glucose (mg/dL) (70-110) mg/dL Plasma Lactic Acid Memo (0.7-2.0) mmol/L Calcium 8.0 L (8.4-10.2) mg/dL Magnesium 1.4 L (1.6-2.3) mg/dL AST (14-36) U/L Urine Appearance (Clear) Urine Protein (Negative) Urine Glucose (UA) (Negative) Urine Blood (Negative) Urine RBC (0-5) /hpf Urine WBC (0-5) /hpf Urine WBC Clumps (None) /hpf Urine Bacteria (None) /hpf Hyaline Casts (0-2) /lpf Urine Mucus (None) /hpf 02/15/25 Range/Units 13:24 RBC 3.28 L (4.10-5.20) 10*6/uL Hgb 8.8 L (12.0-15.0) g/dL Hct 28.5 L (37.2-46.3) % MCH 26.8 L (27.0-32.0) pg MCHC 30.9 L (32.0-37.0) g/dL MPV 8.7 L (9.5-12.2) fL Immature Gran # (0.00-0.04) 10*3/uL Lymphocytes # (0.90-5.00) 10*3/uL Monocytes # (0.20-1.00) 10*3/uL Eosinophils # (0.04-0.35) 10*3/uL PT (10.0-12.5) sec INR (<1.2) APTT (22.0-30.0) sec ABG pH (7.35-7.45) ABG pCO2 (35-45) mmHg ABG pO2 (83-108) mmHg ABG HCO3 (21-25) mmol/L ABG O2 Saturation (94-97) % Hemoglobin (11.4-16.0) gm/dL Sodium (137-145) mmol/L Potassium (3.5-5.1) mmol/L Carbon Dioxide (22-30) mmol/L BUN (7-17) mg/dL Creatinine (0.52-1.04) mg/dL Glucose (74-99) mg/dL POC Glucose (mg/dL) (70-110) mg/dL Plasma Lactic Acid Memo (0.7-2.0) mmol/L Calcium (8.4-10.2) mg/dL Magnesium (1.6-2.3) mg/dL AST (14-36) U/L Urine Appearance (Clear) Urine Protein (Negative) Urine Glucose (UA) (Negative) Urine Blood (Negative) Urine RBC (0-5) /hpf Urine WBC (0-5) /hpf Urine WBC Clumps (None) /hpf Urine Bacteria (None) /hpf Hyaline Casts (0-2) /lpf Urine Mucus (None) /hpf Microbiology - Last 24 Hours (Table) 02/14/25 13:32 Blood Culture Gram Stain - Preliminary Blood Blood Culture - Preliminary Molecular ID 02/14/25 13:33 Gram Stain - Preliminary Sputum Sputum Culture - Preliminary Pseudomonas spec Assessment and Plan Assessment: Impression: Acute hypoxic and hypercapnic respiratory failure most likely secondary bacteremia with sepsis and septic shock with acute metabolic encephalopath =Acute hypoxemic respiratory failure secondary to above requiring mechanical ventilatory support. Uncuffed trach changed out to a cuffed #4 Shiley History of prolonged respiratory failure requiring tracheostomy and PEG tube placement Multiple neck and spine surgeries including thoracolumbar wound dehiscence Advanced chronic obstructive pulmonary disease Hypertension Hyperlipidemia Coronary disease History of congestive heart failure History of seizure disorder Hypothyroidism History of anxiety/depression/PTSD Recommendation: Continue ventilatory support Continue hemodynamic support Continue IV fluids Continue antibiotics vancomycin and Zosyn Continue GI DVT prophylaxis Continue close monitoring of blood cultures Patient to be seen by infectious disease and by orthopedics regarding her neck and spine surgery including thoracolumbar wound dehiscence Will continue to follow Prognosis is guarded Patient is critically ill Critical care time is 40 minutes Time with Patient: Greater than 30
[2025-02-15] MEDS ORDERED: ACETAMINOPHEN TAB 500 MG TAB PEG/G-TUBE PRN (16:34)
[2025-02-15] MEDS ORDERED: hydrOXYzine pamoate 25 MG CAP PEG/G-TUBE PRN (16:34)
[2025-02-15] MEDS ORDERED: ALBUTEROL HFA INHALER INHALATION PRN (16:34)
[2025-02-15] MEDS: busPIRone HCl 5 MG TAB PEG/G-TUBE SCH (17:11)
[2025-02-15] MEDS: NOREPINEPHRINE 32 MG in SODIUM CHLORIDE 0.9% 218 ML IV SCH (17:45)
[2025-02-15] MEDS: GABAPENTIN 400 MG CAP PEG/G-TUBE SCH (17:47)
[2025-02-15] MEDS: SERTRALINE 100 MG TAB PEG/G-TUBE SCH (17:50)
[2025-02-15] MEDS: TAMSULOSIN 0.4 MG CAP.ER.24H PO SCH (17:51)
[2025-02-15] MEDS ORDERED: IPRATROPIUM-ALBUTEROL 3 ML NEB INHALATION SCH (20:00)
[2025-02-15] MEDS ORDERED: BUDESONIDE 0.5 MG/2 ML NEBU INHALATION SCH (20:00)
--- NOTE | 2025-02-15 20:54 | PN ---
PROGRESS NOTE DATE OF SERVICE: 02/15/2025 SUBJECTIVE: This is a 54-year-old woman was admitted with shortness of breath, change in mental status, acute hypoxic respiratory failure, septic shock, is being closely monitored. The patient on mechanical ventilation, which is being titrated down at this time. The chest x-ray was reviewed. The abdominal x-ray showed PEG tube. PAST MEDICAL HISTORY: Reviewed. REVIEW OF SYSTEMS: Could not be taken. CURRENT MEDICATIONS: Reviewed. PHYSICAL EXAMINATION: VITAL SIGNS: Pulse is 81, blood pressure 95/53, respirations 14. HEENT: Conjunctivae normal. NECK: Tracheostomy. CARDIOVASCULAR: S1, S2. RESPIRATIONS: Bilateral scattered rhonchi and crackles. ABDOMEN: Soft. NERVOUS SYSTEM: Nonfocal. LABORATORY DATA: Reviewed. ASSESSMENT: 1. Chronic obstructive pulmonary disease exacerbation with acute hypoxic, hypercarbic respiratory failure, on mechanical ventilation. 2. Possible sepsis with Pseudomonas. 3. Possible Pseudomonas pneumonia. 4. History of asthma. 5. History of deep vein thrombosis. 6. History of fibromyalgia. 7. Change in mental status, acute delirium. 8. Congestive heart failure history. 9. History of myocardial infarction. 10.History of anxiety, bipolar, depression, posttraumatic stress disorder. 11.History of recent surgical wound dehiscence in thoracic spine. 12.History of seizure disorder. 13.Multiple complex medical issues. RECOMMENDATION: Recommend to continue current management and continue symptomatic treatment. Otherwise, the patient is on IV Zosyn at this time empirically and we will await ID of the blood cultures as well as sputum culture. Infectious Disease and Pulmonary and multiple consultants are following the patient closely. Prognosis extremely guarded because of multiple complex medical issues. Further recommendation to continue mechanical ventilation. Closely follow with Dr. Starkey in the ICU. MMODL / IJN: [id number] /
[2025-02-15] MEDS: NON FORMULARY DRUG (Brivaracetam [Briviact] 100 MG Tablet) PEG/G-TUBE SCH (21:28)
[2025-02-15] MEDS: MONTELUKAST 10 MG TAB PEG/G-TUBE SCH (22:07)
[2025-02-15] MEDS: PRAZOSIN 1 MG CAP PEG/G-TUBE SCH (22:18)
[2025-02-15] MEDS: PROPRANOLOL 20 MG TAB PEG/G-TUBE SCH (22:18)
--- NOTE | 2025-02-15 22:53 | P.CONS ---
History of Present Illness - Reason for Consult Consult date: 02/15/25 Sepsis Requesting physician: Leighann Jennings - Chief Complaint Decrease level of responsiveness x 1 day - History of Present Illness Patient is a 54-year-old female with a past medical history significant for hypertension hyperlipidemia fibromyalgia chronic back pain in this patient who did have multiple surgeries to the thoracic spine and on her last admission in the hospital patient did have a prolonged mechanical ventilation subsequently tracheostomy tube placement patient was evaluated at pulmonary office yesterday and apparently the patient did have seizure or syncopal episode for the patient was advised to go to the hospital on presentation to the hospital patient was afebrile and no fever have been called subsequently patient was nontachycardic or hypotensive he did have low O2 sat documented of 56% for the patient has been intubated and admitted to the ICU patient did have white count of 8.40 with a left shift BUN and creatinine was mildly elevated liver enzymes are normal urine has been positive patient did have chest x-ray correlate for volume overload she also have abdominal pelvis CT small right effusion mild ascites patient was started on vancomycin and Zosyn infectious disease was consulted regarding sepsis most information has been obtained from review the chart as the patient is currently intubated on the vent however able to communicate by answering yes and no to most of the question asked Review of Systems Positive points has been mentioned in HPI complete review could not be obtained because of his underlying mental status Past Medical History Past Medical History: Asthma, Heart Failure, COPD, Deep Vein Thrombosis (DVT), Eye Disorder, Fibromyalgia, GERD/Reflux, Hyperlipidemia, Hypertension, Memory Impairment, Myocardial Infarction (MD), Osteoarthritis (OA), Pneumonia, Seizure Disorder, Skin Disorder, Syncope, Thyroid Disorder Additional Past Medical History / Comment(s): IBS, colitis, restless legs flexed syndrome, daily migraines, Vitamin D deficiency, benign left breast mass, gastritis, short term memory loss. Vision - "sees an orange aura." BILAT CATARACTS Last seizure 09/22/2024, PT STATES THAT DR. VILLALBA IS AWARE"Legs are weak and balance is off." checked bone marrow for cancer. Pt has pressure ulcer over lower incision from surgery on 09/09/2024. States she had a blood clot in leg but not sure which leg or when Last Myocardial Infarction Date:: 2009 History of Any Multi-Drug Resistant Organisms: None Reported Past Surgical History: Back Surgery, Hysterectomy, Orthopedic Surgery Additional Past Surgical History / Comment(s): D&C, bilateral knee arthroscopy. Past Anesthesia/Blood Transfusion Reactions: No Reported Reaction Additional Past Anesthesia/Blood Transfusion Reaction / Comm: severe anxiety coming out of anesthesia,no hx blood transfusion Past Psychological History: Anxiety, Bipolar, Depression, PTSD Additional Psychological History / Comment(s): Borderline personality disorder. Smoking Status: Current every day smoker Past Alcohol Use History: None Reported Additional Past Alcohol Use History / Comment(s): Patient is a smoker of 1/2per day. Smoked 2 ppd since she was 17 years of age. Past Drug Use History: Marijuana Additional Drug Use History / Comment(s): Has been using Marijuana since age 16. Currently uses once a day. - Past Family History Father Family Medical History: Cancer Additional Family Medical History / Comment(s): Father of pancreatic cancer at the age of 62yrs. and lung cancer Mother Family Medical History: Congestive Heart Failure (CHF) Additional Family Medical History / Comment(s): Mother of CHF at the age of 60yrs. Brother(s) Additional Family Medical History / Comment(s): Patient had 1 brother that at 5 months of age. Sister(s) Family Medical History: Deep Vein Thrombosis (DVT) Additional Family Medical History / Comment(s): Patient has one sister with history of depression and bipolar. Patient has 2 half-sisters and one at age 26 from overdose. Patient does not have any children. Medications and Allergies Home Medications Medication Instructions Recorded Confirmed Type Asenapine Maleate [Saphris] 10 mg SUBLINGUAL BID 04/30/17 02/14/25 History Pantoprazole Sodium [Protonix] 40 mg PEG/G-TUBE DAILY 01/07/19 02/14/25 History Topiramate [Trokendi Xr] 100 mg PEG/G-TUBE DAILY@0600 04/15/21 02/14/25 History Albuterol Sulfate [Proair Hfa] 2 puff INHALATION RT-Q6H PRN 05/10/21 02/14/25 History Prazosin HCl [Minipress] 2 mg PEG/G-TUBE BID 05/10/21 02/14/25 History rOPINIRole HCL [Requip] 2 mg PEG/G-TUBE BID 05/10/21 02/14/25 History Fluticasone/Umeclidin/Vilanter 1 puff INHALATION RT-DAILY 12/10/22 02/14/25 History [Trelegy Ellipta 100-62.5-25] Brivaracetam [Briviact] 100 mg PEG/G-TUBE BID 07/10/23 02/14/25 History Cetirizine HCl [Zyrtec] 10 mg PEG/G-TUBE DAILY 07/27/23 02/14/25 History Fluticasone Nasal [place] [Flonase 1 spr EA NOSTRIL DAILY 07/27/23 02/14/25 History Nasal [place]] Levothyroxine Sodium [Synthroid] 88 mcg PEG/G-TUBE DAILY 07/27/23 02/14/25 History Propranolol [Inderal] 20 mg PEG/G-TUBE BID 07/27/23 02/14/25 History Acetaminophen Tab [Tylenol] 500 mg PEG/G-TUBE Q6HR PRN 10/25/24 02/14/25 History Cholecalciferol (Vitamin D3) 50 mcg PEG/G-TUBE DAILY 10/25/24 02/14/25 History [Vitamin D3 (50 Mcg = 2000 Iu)] Montelukast [Singulair] 10 mg PEG/G-TUBE HS 10/25/24 02/14/25 History busPIRone HCL 15 mg PEG/G-TUBE TID 10/25/24 02/14/25 History Ipratropium-Albuterol Nebulize 3 ml INHALATION RT-QID each 12/01/24 02/14/25 Rx [Duoneb 0.5 mg-3 mg/3 ml Soln] Folic Acid 0.4 mg PEG/G-TUBE DAILY 12/04/24 02/14/25 History Multivitamins, Thera [Multivitamin 1 tab PEG/G-TUBE DAILY 12/04/24 02/14/25 History (formulary)] Sertraline HCl 200 mg PEG/G-TUBE DAILY 12/04/24 02/14/25 History Tamsulosin HCl [Flomax] 0.4 mg PEG/G-TUBE DAILY 12/04/24 02/14/25 History ALPRAZolam [Xanax] 0.5 mg PEG/G-TUBE BID PRN 02/14/25 02/14/25 History Acetaminophen-Codeine 300-30mg 1 tab PEG/G-TUBE TID PRN 02/14/25 02/14/25 History [Tylenol w/codeine #3] Budesonide [Pulmicort] 0.5 mg INHALATION RT-BID 02/14/25 02/14/25 History Butalb/APAP/Caff 50-325-40Mg 1 tab PEG/G-TUBE Q8H PRN 02/14/25 02/14/25 History [Fioricet 50-325-40] Cyclobenzaprine [Flexeril] 10 mg PEG/G-TUBE BID 02/14/25 02/14/25 History Fluticasone Propion/Salmeterol 1 puff PO RT-Q12H 02/14/25 02/14/25 History [Advair 100-50 Diskus] Furosemide [Lasix] 20 mg PEG/G-TUBE BID 02/14/25 02/14/25 History Gabapentin [Neurontin] 800 mg PEG/G-TUBE TID 02/14/25 02/14/25 History HYDROcodone/APAP 5-325MG [[place] 1 tab PEG/G-TUBE Q8H PRN 02/14/25 02/14/25 History 5-325] Ibuprofen [Motrin] 800 mg PEG/G-TUBE Q8H PRN 02/14/25 02/14/25 History Sennosides 8.6 mg PEG/G-TUBE DAILY 02/14/25 02/14/25 History Umeclidinium [place] [Incruse 1 puff INHALATION RT-DAILY 02/14/25 02/14/25 History Ellipta] hydrOXYzine pamoate [Vistaril] 50 mg PEG/G-TUBE TID PRN 02/14/25 02/14/25 History rOPINIRole HCL [Requip] 1 mg PEG/G-TUBE BID 02/14/25 02/14/25 History Allergies Allergy/AdvReac Type Severity Reaction Status Date / Time bee venom protein (honey bee) Allergy Anaphylaxis Verified 02/14/25 16:49 eszopiclone [From Lunesta] Allergy per PCP Verified 02/14/25 16:49 office list gabapentin Allergy per PCP Verified 02/14/25 16:49 office list but currently taking pregabalin [From Lyrica] Allergy per PCP Verified 02/14/25 16:49 office list Physical Exam Vitals: Vital Signs Temp Pulse Pulse Resp BP BP Pulse Ox 02/15/25 09:00 82 30 H 106/68 100 02/15/25 08:48 80 02/15/25 08:45 79 30 H 91/66 100 02/15/25 08:36 76 02/15/25 08:35 76 02/15/25 08:30 87 30 H 123/76 98 02/15/25 08:22 74 02/15/25 08:20 02/15/25 08:15 71 30 H 108/71 100 02/15/25 08:00 98.1 F 72 30 H 81/67 99 02/15/25 07:58 02/15/25 07:45 79 30 H 95/56 99 02/15/25 07:30 84 30 H 118/69 100 02/15/25 07:15 72 30 H 118/67 99 02/15/25 07:00 73 30 H 124/69 98 02/15/25 06:45 73 30 H 125/71 99 02/15/25 06:30 77 30 H 123/69 99 02/15/25 06:15 77 30 H 129/70 99 02/15/25 06:00 97.9 F 78 30 H 132/73 99 02/15/25 05:45 80 30 H 138/71 99 02/15/25 05:30 83 30 H 141/77 98 02/15/25 05:15 80 30 H 100/60 98 02/15/25 05:00 66 30 H 100/60 98 02/15/25 04:45 76 30 H 98 02/15/25 04:30 78 30 H 118/65 99 02/15/25 04:15 79 30 H 113/81 99 02/15/25 04:00 77 30 H 104/90 99 02/15/25 03:59 02/15/25 03:57 30 H 02/15/25 03:56 02/15/25 03:45 81 30 H 117/68 100 02/15/25 03:30 75 30 H 124/72 99 02/15/25 03:15 76 30 H 123/69 99 02/15/25 03:00 75 30 H 123/66 99 02/15/25 02:45 79 30 H 124/66 100 02/15/25 02:30 80 31 H 124/69 100 02/15/25 02:15 81 30 H 118/67 100 02/15/25 02:00 79 30 H 121/68 100 02/15/25 01:45 78 30 H 125/68 100 02/15/25 01:30 78 30 H 121/65 100 02/15/25 01:15 78 30 H 125/67 100 02/15/25 01:00 97.8 F 82 30 H 128/70 100 02/15/25 00:45 85 30 H 116/70 100 02/15/25 00:30 83 30 H 136/77 100 02/15/25 00:15 82 30 H 119/73 100 02/15/25 00:11 02/15/25 00:00 90 30 H 121/73 99 02/14/25 23:45 89 30 H 114/69 98 02/14/25 23:30 92 25 H 97 02/14/25 23:15 90 26 H 113/73 99 02/14/25 23:00 90 26 H 105/86 99 02/14/25 22:45 89 26 H 113/68 99 02/14/25 22:30 92 27 H 112/65 97 02/14/25 22:15 95 26 H 114/70 100 02/14/25 22:07 97.6 F 93 26 H 114/70 99 02/14/25 22:00 86 26 H 100 02/14/25 21:45 109/67 02/14/25 21:00 90 18 109/67 100 02/14/25 20:21 76 02/14/25 20:07 76 02/14/25 20:06 74 02/14/25 19:57 02/14/25 19:56 77 02/14/25 19:42 75 18 104/69 100 02/14/25 18:46 74 20 105/69 100 02/14/25 17:30 80 27 H 135/89 100 02/14/25 17:00 75 26 H 148/91 100 02/14/25 16:45 74 26 H 02/14/25 16:41 02/14/25 16:39 70 26 H 02/14/25 16:20 72 26 H 152/92 97 02/14/25 16:00 72 26 H 141/90 99 02/14/25 15:01 69 16 95/64 99 02/14/25 14:42 97.5 F L 74 20 95/64 100 02/14/25 14:09 69 20 97/64 100 02/14/25 13:52 75 20 107/76 100 02/14/25 13:37 02/14/25 13:32 76 20 85/60 72 L 02/14/25 13:28 02/14/25 12:59 67 20 46/32 56 L 02/14/25 12:28 64 12 50/21 97 02/14/25 12:25 FiO2 02/15/25 09:00 02/15/25 08:48 02/15/25 08:45 02/15/25 08:36 02/15/25 08:35 02/15/25 08:30 02/15/25 08:22 02/15/25 08:20 50 02/15/25 08:15 02/15/25 08:00 50 02/15/25 07:58 50 02/15/25 07:45 02/15/25 07:30 02/15/25 07:15 02/15/25 07:00 50 02/15/25 06:45 50 02/15/25 06:30 50 02/15/25 06:15 50 02/15/25 06:00 50 02/15/25 05:45 50 02/15/25 05:30 50 02/15/25 05:15 50 02/15/25 05:00 50 02/15/25 04:45 02/15/25 04:30 02/15/25 04:15 50 02/15/25 04:00 50 02/15/25 03:59 50 02/15/25 03:57 02/15/25 03:56 50 02/15/25 03:45 50 02/15/25 03:30 50 02/15/25 03:15 50 02/15/25 03:00 50 02/15/25 02:45 50 02/15/25 02:30 50 02/15/25 02:15 50 02/15/25 02:00 50 02/15/25 01:45 50 02/15/25 01:30 50 02/15/25 01:15 50 02/15/25 01:00 50 02/15/25 00:45 50 02/15/25 00:30 50 02/15/25 00:15 50 02/15/25 00:11 50 02/15/25 00:00 50 02/14/25 23:45 50 02/14/25 23:30 50 02/14/25 23:15 50 02/14/25 23:00 50 02/14/25 22:45 50 02/14/25 22:30 50 02/14/25 22:15 50 02/14/25 22:07 02/14/25 22:00 50 02/14/25 21:45 02/14/25 21:00 02/14/25 20:21 02/14/25 20:07 02/14/25 20:06 02/14/25 19:57 50 02/14/25 19:56 02/14/25 19:42 02/14/25 18:46 02/14/25 17:30 02/14/25 17:00 02/14/25 16:45 02/14/25 16:41 50 02/14/25 16:39 02/14/25 16:20 02/14/25 16:00 02/14/25 15:01 02/14/25 14:42 02/14/25 14:09 02/14/25 13:52 02/14/25 13:37 50 02/14/25 13:32 02/14/25 13:28 50 02/14/25 12:59 02/14/25 12:28 02/14/25 12:25 40 Intake and Output 02/14/25 02/15/25 02/15/25 22:59 06:59 14:59 Intake Total 397.919 0569.934 633.789 Output Total 300 1300 180 Balance 12.904 403.934 453.789 Intake: Intake, IV Titration 168.261 9572.934 583.789 Amount Lactated Ringers 1,000 ml 130 1170 260 @ 130 mls/hr IV .Q7H42M [facility] Rx#:[id number] Magnesium Sulfate-D5w Pmx 200 1 gm In Dextrose/Water 1 100ml.bag @ 100 mls/hr IVPB Q1H [facility] Rx#: [id number] Norepinephrine 32 mg In 12.766 35.092 2.918 Sodium Chloride 0.9% 218 ml @ 0.03 MCG/KG/MIN 0. 893 mls/hr IV .Q24H ONE Rx#:[id number] Piperacillin-Tazobactam 3 100 100 .375 gm In Sodium Chloride 0.9% 100 ml @ 25 mls/hr IVPB Q8H [facility] Rx#: [id number] Vancomycin 1,000 mg In 250 Sodium Chloride 0.9% 250 ml @ 125 mls/hr IVPB ONCE [facility] Rx#:[id number] propofoL 1,000 mg In 70.138 88.842 70.871 Empty Bag 1 bag @ 15 MCG/ KG/MIN 5.715 mls/hr IV . [id number] [facility] Rx#:[id number] Oral 0 0 Other 110 50 Output: Urine 300 1300 180 Other: Voiding Method Indwelling Catheter Indwelling Catheter Weight 63.503 kg 53 kg ABP, PAP, CO, CI - Last 8 Hours Arterial Blood Pressure 121/66 Arterial Blood Pressure 114/62 Arterial Blood Pressure 140/74 Arterial Blood Pressure 129/66 Arterial Blood Pressure 126/67 Arterial Blood Pressure 99/54 Arterial Blood Pressure 117/60 Arterial Blood Pressure 135/66 Arterial Blood Pressure 131/63 Arterial Blood Pressure 143/67 Arterial Blood Pressure 140/66 Arterial Blood Pressure 138/66 Arterial Blood Pressure 142/66 Arterial Blood Pressure 153/72 Arterial Blood Pressure 160/75 Arterial Blood Pressure 157/74 Arterial Blood Pressure 108/47 Arterial Blood Pressure 134/60 Arterial Blood Pressure 106/46 Arterial Blood Pressure 128/58 Arterial Blood Pressure 123/57 Arterial Blood Pressure 117/55 Arterial Blood Pressure 140/65 Arterial Blood Pressure 149/69 Arterial Blood Pressure 143/67 Arterial Blood Pressure 148/69 Arterial Blood Pressure 143/66 Arterial Blood Pressure 135/70 Arterial Blood Pressure 132/62 Arterial Blood Pressure 142/67 GENERAL DESCRIPTION: Middle-age female intubated on the vent through the trach HEENT: Shows Pallor , no scleral icterus. Oral mucous membrane is dry. NECK: Trachea central, no thyromegaly. LUNGS: Unlabored breathing. Decreased breath sounds at the base HEART: S1, S2, regular rate and rhythm. No loud murmur ABDOMEN: Soft, no tenderness , guarding or rigidity, no organomegaly EXTREMITIES: No edema of feet. SKIN: No rash, no masses palpable. NEUROLOGICAL: The patient is awake and respond appropriately to question asked Results CBC & Chem 7: 02/16/25 05:02/16/25 05:25 Labs: Abnormal Lab Results - Last 24 Hours (Table) 02/14/25 02/14/25 02/14/25 Range/Units 12:43 12:57 12:57 RBC 4.04 L (4.10-5.20) 10*6/uL Hgb 10.7 L (12.0-15.0) g/dL Hct 36.1 L (37.2-46.3) % MCH 26.5 L (27.0-32.0) pg MCHC 29.6 L (32.0-37.0) g/dL MPV (9.5-12.2) fL Immature Gran # 0.06 H (0.00-0.04) 10*3/uL Lymphocytes # (0.90-5.00) 10*3/uL Monocytes # 1.01 H (0.20-1.00) 10*3/uL Eosinophils # (0.04-0.35) 10*3/uL PT (10.0-12.5) sec INR (<1.2) APTT (22.0-30.0) sec ABG pH 7.13 L* (7.35-7.45) ABG pCO2 52 H (35-45) mmHg ABG pO2 75 L (83-108) mmHg ABG HCO3 17 L (21-25) mmol/L ABG O2 Saturation 92.8 L (94-97) % Hemoglobin 10.1 L (11.4-16.0) gm/dL Sodium 136 L (137-145) mmol/L Potassium (3.5-5.1) mmol/L Carbon Dioxide 18 L (22-30) mmol/L BUN 29 H (7-17) mg/dL Creatinine 1.51 H (0.52-1.04) mg/dL Glucose 161 H (74-99) mg/dL POC Glucose (mg/dL) (70-110) mg/dL Plasma Lactic Acid Memo (0.7-2.0) mmol/L Calcium 8.2 L (8.4-10.2) mg/dL Magnesium (1.6-2.3) mg/dL AST 47 H (14-36) U/L Urine Appearance (Clear) Urine Protein (Negative) Urine Glucose (UA) (Negative) Urine Blood (Negative) Urine RBC (0-5) /hpf Urine WBC (0-5) /hpf Urine WBC Clumps (None) /hpf Urine Bacteria (None) /hpf Hyaline Casts (0-2) /lpf Urine Mucus (None) /hpf 02/14/25 02/14/25 02/14/25 Range/Units 12:57 13:50 14:34 RBC (4.10-5.20) 10*6/uL Hgb (12.0-15.0) g/dL Hct (37.2-46.3) % MCH (27.0-32.0) pg MCHC (32.0-37.0) g/dL MPV (9.5-12.2) fL Immature Gran # (0.00-0.04) 10*3/uL Lymphocytes # (0.90-5.00) 10*3/uL Monocytes # (0.20-1.00) 10*3/uL Eosinophils # (0.04-0.35) 10*3/uL PT 13.4 H (10.0-12.5) sec INR 1.3 H (<1.2) APTT 21.2 L (22.0-30.0) sec ABG pH (7.35-7.45) ABG pCO2 (35-45) mmHg ABG pO2 (83-108) mmHg ABG HCO3 (21-25) mmol/L ABG O2 Saturation (94-97) % Hemoglobin (11.4-16.0) gm/dL Sodium (137-145) mmol/L Potassium (3.5-5.1) mmol/L Carbon Dioxide (22-30) mmol/L BUN (7-17) mg/dL Creatinine (0.52-1.04) mg/dL Glucose (74-99) mg/dL POC Glucose (mg/dL) (70-110) mg/dL Plasma Lactic Acid Memo 3.3 H* (0.7-2.0) mmol/L Calcium (8.4-10.2) mg/dL Magnesium (1.6-2.3) mg/dL AST (14-36) U/L Urine Appearance Cloudy H (Clear) Urine Protein 3+ H (Negative) Urine Glucose (UA) Trace H (Negative) Urine Blood Small H (Negative) Urine RBC 22 H (0-5) /hpf Urine WBC 6 H (0-5) /hpf Urine WBC Clumps Few H (None) /hpf Urine Bacteria Rare H (None) /hpf Hyaline Casts 7 H (0-2) /lpf Urine Mucus Many H (None) /hpf 02/14/25 02/14/25 02/14/25 Range/Units 15:11 16:43 23:14 RBC (4.10-5.20) 10*6/uL Hgb (12.0-15.0) g/dL Hct (37.2-46.3) % MCH (27.0-32.0) pg MCHC (32.0-37.0) g/dL MPV (9.5-12.2) fL Immature Gran # (0.00-0.04) 10*3/uL Lymphocytes # (0.90-5.00) 10*3/uL Monocytes # (0.20-1.00) 10*3/uL Eosinophils # (0.04-0.35) 10*3/uL PT (10.0-12.5) sec INR (<1.2) APTT (22.0-30.0) sec ABG pH 7.16 L* (7.35-7.45) ABG pCO2 57 H (35-45) mmHg ABG pO2 (83-108) mmHg ABG HCO3 20 L (21-25) mmol/L ABG O2 Saturation (94-97) % Hemoglobin 10.2 L (11.4-16.0) gm/dL Sodium (137-145) mmol/L Potassium (3.5-5.1) mmol/L Carbon Dioxide (22-30) mmol/L BUN (7-17) mg/dL Creatinine (0.52-1.04) mg/dL Glucose (74-99) mg/dL POC Glucose (mg/dL) 112 H (70-110) mg/dL Plasma Lactic Acid Memo 3.4 H* (0.7-2.0) mmol/L Calcium (8.4-10.2) mg/dL Magnesium (1.6-2.3) mg/dL AST (14-36) U/L Urine Appearance (Clear) Urine Protein (Negative) Urine Glucose (UA) (Negative) Urine Blood (Negative) Urine RBC (0-5) /hpf Urine WBC (0-5) /hpf Urine WBC Clumps (None) /hpf Urine Bacteria (None) /hpf Hyaline Casts (0-2) /lpf Urine Mucus (None) /hpf 02/14/25 02/15/25 02/15/25 Range/Units 23:26 04:47 04:50 RBC 3.62 L (4.10-5.20) 10*6/uL Hgb 9.6 L (12.0-15.0) g/dL Hct 31.6 L (37.2-46.3) % MCH 26.5 L (27.0-32.0) pg MCHC 30.4 L (32.0-37.0) g/dL MPV 8.3 L (9.5-12.2) fL Immature Gran # 0.06 H (0.00-0.04) 10*3/uL Lymphocytes # 0.57 L (0.90-5.00) 10*3/uL Monocytes # (0.20-1.00) 10*3/uL Eosinophils # 0.00 L (0.04-0.35) 10*3/uL PT (10.0-12.5) sec INR (<1.2) APTT (22.0-30.0) sec ABG pH 7.19 L* 7.29 L (7.35-7.45) ABG pCO2 57 H 47 H (35-45) mmHg ABG pO2 74 L (83-108) mmHg ABG HCO3 (21-25) mmol/L ABG O2 Saturation 93.3 L 97.4 H (94-97) % Hemoglobin 10.4 L 9.9 L (11.4-16.0) gm/dL Sodium (137-145) mmol/L Potassium (3.5-5.1) mmol/L Carbon Dioxide (22-30) mmol/L BUN (7-17) mg/dL Creatinine (0.52-1.04) mg/dL Glucose (74-99) mg/dL POC Glucose (mg/dL) (70-110) mg/dL Plasma Lactic Acid Memo (0.7-2.0) mmol/L Calcium (8.4-10.2) mg/dL Magnesium (1.6-2.3) mg/dL AST (14-36) U/L Urine Appearance (Clear) Urine Protein (Negative) Urine Glucose (UA) (Negative) Urine Blood (Negative) Urine RBC (0-5) /hpf Urine WBC (0-5) /hpf Urine WBC Clumps (None) /hpf Urine Bacteria (None) /hpf Hyaline Casts (0-2) /lpf Urine Mucus (None) /hpf 02/15/25 Range/Units 04:50 RBC (4.10-5.20) 10*6/uL Hgb (12.0-15.0) g/dL Hct (37.2-46.3) % MCH (27.0-32.0) pg MCHC (32.0-37.0) g/dL MPV (9.5-12.2) fL Immature Gran # (0.00-0.04) 10*3/uL Lymphocytes # (0.90-5.00) 10*3/uL Monocytes # (0.20-1.00) 10*3/uL Eosinophils # (0.04-0.35) 10*3/uL PT (10.0-12.5) sec INR (<1.2) APTT (22.0-30.0) sec ABG pH (7.35-7.45) ABG pCO2 (35-45) mmHg ABG pO2 (83-108) mmHg ABG HCO3 (21-25) mmol/L ABG O2 Saturation (94-97) % Hemoglobin (11.4-16.0) gm/dL Sodium (137-145) mmol/L Potassium 2.8 L (3.5-5.1) mmol/L Carbon Dioxide (22-30) mmol/L BUN 21 H (7-17) mg/dL Creatinine (0.52-1.04) mg/dL Glucose (74-99) mg/dL POC Glucose (mg/dL) (70-110) mg/dL Plasma Lactic Acid Memo (0.7-2.0) mmol/L Calcium 8.0 L (8.4-10.2) mg/dL Magnesium 1.4 L (1.6-2.3) mg/dL AST (14-36) U/L Urine Appearance (Clear) Urine Protein (Negative) Urine Glucose (UA) (Negative) Urine Blood (Negative) Urine RBC (0-5) /hpf Urine WBC (0-5) /hpf Urine WBC Clumps (None) /hpf Urine Bacteria (None) /hpf Hyaline Casts (0-2) /lpf Urine Mucus (None) /hpf Microbiology - Last 24 Hours (Table) 02/14/25 13:33 Gram Stain - Preliminary Sputum Assessment and Plan (1) Unresponsive Current Visit: Yes Status: Acute Code(s): R41.89 - OTH SYMPTOMS AND SIGNS W COGNITIVE FUNCTIONS AND AWARENESS SNOMED Code(s): 229453193 (2) Pneumonia Current Visit: No Status: Acute Code(s): J18.9 - PNEUMONIA, UNSPECIFIED ORGANISM SNOMED Code(s): 322709529 Plan: 1patient presented to hospital with episode of unresponsiveness/seizure patient noted to be significantly hypoxic requiring intubation and this patient did have a chronic tracheostomy from a previous episode of following intubation and resp iratory failure, possible component of pneumonia/UTI not entirely excluded 2-patient to continue with the vancomycin however switch Zosyn to cefepime to decrease risk of nephrotoxicity while waiting for the culture to finalize We will follow on clinical condition and cultures to further adjust medication if needed Thank you for this consultation we will follow the patient along with you Dictation was produced using [employer] dictation software. please excuse any grammatical, word or spelling errors. Time with Patient: Greater than 30
[2025-02-15] MEDS: BUTALB/APAP/CAFF 50-325-40MG TAB PO PRN (23:44)
[2025-02-16] MEDS: CEFEPIME 2 GM in SODIUM CHLORIDE 0.9% 100 ML IVPB SCH (00:27)
[2025-02-16] MEDS: HYDROcodone/APAP 5-325MG 1 EACH TAB PEG/G-TUBE PRN (03:37)
[2025-02-16 05:13] LABS: ABG Base Excess 2.3 mmol/L; ABG HCO3 27 mmol/L (21-25); ABG Oxygen Saturation 99.8 % (94-97); ABG PCO2 41 mmHg (35-45); ABG PH 7.43 (7.35-7.45); ABG PO2 139 mmHg (83-108); ABG TCO2 28 mmol/L (19-24)
[2025-02-16 05:15] LABS: Allen Test Performed? no
[2025-02-16 05:35] LABS: Basophils # (A) 0.04 10*3/uL (0.00-0.10); Basophils % (A) 0.5 %; HCT 27.3 % (37.2-46.3); HGB 8.5 g/dL (12.0-15.0); Lymphocytes # (A) 0.77 10*3/uL (0.90-5.00); Lymphocytes % (A) 10.5 %; MCH 26.6 pg (27.0-32.0); MCHC 31.1 g/dL (32.0-37.0); MCV 85.3 fL (80.0-97.0); Monocytes # (A) 0.32 10*3/uL (0.20-1.00); Monocytes % (A) 4.4 %; Neutrophils # (A) 6.19 10*3/uL (1.80-7.70); Neutrophils % (A) 84.2 %; Platelet Count 270 10*3/uL (140-440); RDW 15.9 % (11.5-14.5); WBC 7.35 10*3/uL (4.50-10.00)
[2025-02-16 05:44] LABS: African American GFR (CKD) >90 (>60 ml/min/1.73 sqM); Anion Gap 6 mmol/L; Blood Urea Nitrogen 18 mg/dL (7-17); Calcium 8.4 mg/dL (8.4-10.2); Carbon Dioxide 26 mmol/L (22-30); Chloride 105 mmol/L (98-107); Glucose 114 mg/dL (74-99); Magnesium 1.8 mg/dL (1.6-2.3); Non-African American GFR(CKD) >90 (>60 ml/min/1.73 sqM); Potassium 3.2 mmol/L (3.5-5.1); Sodium 137 mmol/L (137-145)
[2025-02-16] MEDS: MAGNESIUM SULFATE-D5W PMX 1 GM in DEXTROSE/WATER 1 100ML.BAG IVPB ONE (06:18)
[2025-02-16] MEDS: POTASSIUM BICARBONATE/CIT AC 20 MEQ TABLET.EFF NG-TUBE SCH (06:19)
[2025-02-16 06:58] LABS: Glucose,Whole Blood 155 mg/dL (70-110)
[2025-02-16] MEDS ORDERED: NON FORMULARY DRUG (Fluticasone/Umeclidin/Vilanter [Trelegy Ellipta 100-62.5-25] 1 EACH Bl INHALATION SCH (08:00)
[2025-02-16] MEDS ORDERED: NON FORMULARY DRUG (Umeclidinium Bromide [Incruse Ellipta] 62.5 MCG Each) INHALATION SCH (08:00)
[2025-02-16] MEDS: FOLIC ACID 1 MG TAB PEG/G-TUBE SCH (08:08)
[2025-02-16] MEDS: SENNOSIDES 8.6 MG TAB PEG/G-TUBE SCH (08:08)
[2025-02-16] MEDS: LORATADINE 10 MG TAB PEG/G-TUBE SCH (08:08)
[2025-02-16] MEDS: CHOLECALCIFEROL 25 MCG (1000 IU) TABLET PEG/G-TUBE SCH (08:08)
[2025-02-16] MEDS: FLUTICASONE NASAL 50MCG/SPRAY 16GM BTL EA NOSTRIL SCH (08:11)
--- NOTE | 2025-02-16 08:12 | XR ---
EXAMINATION TYPE: XR chest 1V portable DATE OF EXAM: 02/16/2025 6:34 AM COMPARISON: 02/15/2025 CLINICAL INDICATION: Female, 54 years old with history of mechanical ventilation, difficulty breathin g TECHNIQUE: XR chest 1V portable view(s) obtained. FINDINGS: The heart size is normal. The pulmonary vasculature is normal. Mild increased lung markings present diffusely. Correlate for volume overload Tracheostomy tube is in midline. Multiple fixation screws and rods are present through the thoracic s pine. Previous minimal right pleural effusion not as evident. IMPRESSION: 1. Suggestion of mild diffuse volume overload. 2. Tracheostomy tube midline. [facility], , 02/16/2025 8:10 AM
[2025-02-16] MEDS: MULTIVITAMINS, THERA 1 EACH TAB PEG/G-TUBE SCH (08:34)
[2025-02-16] MEDS: ALPRAZolam 0.5 MG TAB PEG/G-TUBE PRN (11:29)
--- NOTE | 2025-02-16 12:13 | P.PN ---
Subjective Progress Note Date: 02/16/25 Principal diagnosis: Acute hypoxic and hypercapnic respiratory failure and sepsis. This is a 54-year-old female patient with a known history of chronic obstructive pulmonary disease, chronic hypoxic respiratory failure, previous significant spine and neck surgery requiring prolonged mechanical ventilation and subsequent tracheostomy tube placement, seizure disorder, hypothyroidism, anxiety/depression, hypertension, hyperlipidemia, coronary artery disease. She was seen in our office earlier today and had what appeared to be either a seizure or syncopal episode and was sent here to the emergency room for the same. CT scan of the brain revealed no significant abnormality. No acute bleed or mass effect. CT scan of the abdomen revealed a small right pleural effusion. Mild ascites. PEG tube catheter in place. Howell catheter in place. The patient remained obtunded and hypotensive and was placed on the mechanical ventilator. Currently on assist-control mode at a rate of 20. Tidal volume 300. FiO2 50% and a PEEP of 5. Follow-up blood gases revealed a PO2 of 83, PCO2 of 57 and a pH of 7.23. Her respiratory rate was increased to 26. She is also requiring norepinephrine currently at 0.15 mcg/kg/min. She is on propofol at 10 mcg/kg/min. White count 8.0. Hemoglobin 10.7. Platelets 209. Sodium 136. Potassium 4.3. Bicarb 18. BUN 29. Creatinine 1.51. Glucose 161. Urinalysis cloudy with 3+ protein and trace glucose and few WBCs. She is seen in consultation in the emergency department. Remains obtunded. Currently afebrile. Mean arterial pressure 74. Patient was seen today on 02/15/2025, remains in the ICU, intubated and mechanically ventilated, patient is on assist-control rate of 30 tidal volume 350 FiO2 50% PEEP of 5 ABG showed a pO2 of 90 pCO2 47 pH of 7.29. Patient still on propofol at 40 mcg/kg/min she is also on norepinephrine at 0.04 mcg/kg/min LR at 130 cc/h remains empirically on Zosyn and vancomycin, her blood cultures are positive for gram-positive cocci, I suspect the patient is having bacteremia from her previous surgical wound/spine. Hence we will consult infectious disease will also consult orthopedic to evaluate. Patient was comfortable during my evaluation and she was placed on pressure support of 14 and CPAP, she was tolerating that quite well, however later on patient developed worsening mental status, and agitation, and wanted to be discharged home as soon as possible. Patient was given Haldol, she was also given Precedex, but she remained agitated, she also developed some black tarry stools. Hemoglobin had a minimal drop, hence the patient will be placed back on assist-control mode of mechanical ventilation, will continue with antibiotics, and obviously the patient is not ready for any discharge. She is obviously septic, and she has acute toxic metabolic encephalopathy from her sepsis and septic shock picture. WBC count is 8.3 hemoglobin 8.8, basic metabolic profile is normal potassium is 2.8 BUN is 21 creatinine 0.89 Patient was seen today on 02/16/2025, remains in the ICU, intubated mechanically ventilated, patient is wide-awake even on propofol at 50 mcg/kg/min. Blood cultures came back positive remains on cefepime and vancomycin, patient will be seen by infectious disease on consultation. On assist-control rate 30 tidal volume 350 FiO2 40% PEEP of 5 ABG showed a pO2 of 139 pCO2 41 pH of 7.43. Chest x-ray no evidence of active disease. CBC is relatively normal except for hemoglobin of 8.5 basic metabolic profile is normal except for potassium of 3.2. Magnesium today is 1.8. Patient is awake, follows all instructions, hands and planning to go the patient a trial of pressure support and CPAP, may even consider transitioning the patient to trach collar again today. Depending on how she does on pressure support and CPAP and off propofol. Objective - Vital Signs Vital signs: Vital Signs Temp 98.2 F 02/16/25 12:00 Pulse 99 02/16/25 12:00 Resp 10 L 02/16/25 12:00 BP 103/67 02/16/25 12:00 Pulse Ox 94 L 02/16/25 12:00 FiO2 60 02/16/25 12:00 Intake & Output 02/15/25 02/16/25 02/16/25 18:59 06:59 18:59 Intake Total 9081.298 7170.526 1230.00 Output Total 1295 1395 1350 Balance 136.043 380.526 -120.00 Weight 53 kg 57.2 kg Intake: Intake, IV Titration 7709.886 0969.526 1000.00 Amount Cefepime 2 gm In Sodium 100 100 Chloride 0.9% 100 ml @ 25 mls/hr IVPB Q8HR [facility] Rx# :[id number] Dexmedetomidine/0.9% NaCl 23.475 (Pmx) 400 mcg In Empty Bag 1 bag @ 0.2 MCG/KG/HR 2.65 mls/hr IV .Q24H [facility] Rx#:[id number] Lactated Ringers 1,000 ml 935 825 450 @ 75 mls/hr IV .[id number] [facility] Rx#:[id number] Magnesium Sulfate-D5w Pmx 100 1 gm In Dextrose/Water 1 100ml.bag @ 100 mls/hr IVPB ONCE [facility] Rx#: [id number] Norepinephrine 32 mg In 2.918 Sodium Chloride 0.9% 218 ml @ 0.03 MCG/KG/MIN 0. 893 mls/hr IV .Q24H [facility] Rx#:[id number] Piperacillin-Tazobactam 3 100 .375 gm In Sodium Chloride 0.9% 100 ml @ 25 mls/hr IVPB Q8H [facility] Rx#: [id number] Vancomycin 1,000 mg In 250 Sodium Chloride 0.9% 250 ml @ 125 mls/hr IVPB ONCE [facility] Rx#:[id number] Vancomycin 1,000 mg In 250 Sodium Chloride 0.9% 250 ml @ 125 mls/hr IVPB Q12H [facility] Rx#:[id number] Vancomycin 1,000 mg In 250 Sodium Chloride 0.9% 250 ml @ 125 mls/hr IVPB Q16H [facility] Rx#:[id number] propofoL 1,000 mg In 169.650 120.526 100.00 Empty Bag 1 bag @ 15 MCG/ KG/MIN 5.715 mls/hr IV . [id number] [facility] Rx#:[id number] Tube Feeding 260 190 Other 50 120 40 Output: Urine 1295 1395 1350 Other: Voiding Method Indwelling Catheter Indwelling Catheter Indwelling Catheter # Bowel Movements 1 ABP, PAP, CO, CI - Last Documented Arterial Blood Pressure 69/60 - Exam GENERAL EXAM: Intubated, fully awake in spite of propofol, follows all instructions HEAD: Normocephalic. EYES: Normal reaction of pupils, equal size. NOSE: Clear with pink turbinates. THROAT: #4 Shiley cuffed tracheostomy tube secured in place. No erythema or exudates. NECK: No masses, no JVD. CHEST: No chest wall deformity. LUNGS: Equal air entry with no crackles, wheeze, rhonchi or dullness. CVS: S1 and S2 normal with no audible murmur, regular rhythm. ABDOMEN: PEG tube exit site clean and dry. No hepatosplenomegaly, normal bowel sounds, no guarding or rigidity. SKIN: No rashes CENTRAL NERVOUS SYSTEM: Awake no focal deficit EXTREMITIES: There is no peripheral edema. No clubbing, no cyanosis. Peripheral pulses are intact. - Labs CBC & Chem 7: 02/16/25 05:02/16/25 05:25 Labs: Abnormal Lab Results - Last 24 Hours (Table) 02/15/25 02/16/25 02/16/25 Range/Units 13:24 05:08 05:25 RBC 3.28 L (4.10-5.20) 10*6/uL Hgb 8.8 L (12.0-15.0) g/dL Hct 28.5 L (37.2-46.3) % MCH 26.8 L (27.0-32.0) pg MCHC 30.9 L (32.0-37.0) g/dL MPV 8.7 L (9.5-12.2) fL Lymphocytes # (0.90-5.00) 10*3/uL Eosinophils # (0.04-0.35) 10*3/uL ABG pO2 139 H (83-108) mmHg ABG HCO3 27 H (21-25) mmol/L ABG Total CO2 28 H (19-24) mmol/L ABG O2 Saturation 99.8 H (94-97) % Hemoglobin 8.7 L (11.4-16.0) gm/dL Potassium 3.2 L (3.5-5.1) mmol/L BUN 18 H (7-17) mg/dL Glucose 114 H (74-99) mg/dL POC Glucose (mg/dL) (70-110) mg/dL 02/16/25 02/16/25 Range/Units 05:25 06:57 RBC 3.20 L (4.10-5.20) 10*6/uL Hgb 8.5 L (12.0-15.0) g/dL Hct 27.3 L (37.2-46.3) % MCH 26.6 L (27.0-32.0) pg MCHC 31.1 L (32.0-37.0) g/dL MPV 9.0 L (9.5-12.2) fL Lymphocytes # 0.77 L (0.90-5.00) 10*3/uL Eosinophils # 0.00 L (0.04-0.35) 10*3/uL ABG pO2 (83-108) mmHg ABG HCO3 (21-25) mmol/L ABG Total CO2 (19-24) mmol/L ABG O2 Saturation (94-97) % Hemoglobin (11.4-16.0) gm/dL Potassium (3.5-5.1) mmol/L BUN (7-17) mg/dL Glucose (74-99) mg/dL POC Glucose (mg/dL) 155 H (70-110) mg/dL Microbiology - Last 24 Hours (Table) 02/14/25 13:32 Blood Culture Gram Stain - Preliminary Blood Blood Culture - Preliminary Staphylococcus simulans Molecular ID 02/14/25 13:33 Gram Stain - Preliminary Sputum Sputum Culture - Preliminary Pseudomonas spec Assessment and Plan Assessment: Impression: Acute hypoxic and hypercapnic respiratory failure most likely secondary bacteremia with sepsis and septic shock with acute metabolic encephalopath =Acute hypoxemic respiratory failure secondary to above requiring mechanical ventilatory support. Uncuffed trach changed out to a cuffed #4 Shiley History of prolonged respiratory failure requiring tracheostomy and PEG tube placement Multiple neck and spine surgeries including thoracolumbar wound dehiscence Advanced chronic obstructive pulmonary disease Hypertension Hyperlipidemia Coronary disease History of congestive heart failure History of seizure disorder Hypothyroidism History of anxiety/depression/PTSD Recommendation: Continue ventilatory support however will try pressure support and CPAP and maybe even consider going to trach collar. Continue IV fluids Continue antibiotics vancomycin and cefepime as recommended by infectious disease Continue GI DVT prophylaxis Follow-up on blood culture Infectious disease consultation was appreciated Will continue to follow Prognosis is guarded Patient is critically ill Critical care time is 32 minutes Time with Patient: Greater than 30
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
[2025-02-16] MEDS ORDERED: Magnesium Replacement Protocol 1 EACH MISC MISCELLANE PRN (13:57)
--- NOTE | 2025-02-16 15:59 | P.PN ---
Subjective Progress Note Date: 02/16/25 Principal diagnosis: Reason for follow-up is pneumonia/positive blood culture Patient is a 54-year-old female with a past medical history significant for hypertension hyperlipidemia fibromyalgia chronic back pain in this patient who did have multiple surgeries to the thoracic spine admitted to the hospital concerning for pneumonia/sepsis. On today's evaluation that is 02/16/2025,the patient is afebrile patient has been extubated currently on trach collar patient denies having any chest pain denies any worsening cough or sputum production no abdominal pain or diarrhea. Patient white count 7.35, creatinine 0.65 sputum is growing Pseudomonas blood culture with Staphylococcus simulans Objective - Vital Signs Vital signs: Vital Signs Temp 98.2 F 02/16/25 12:00 Pulse 93 02/16/25 13:00 Resp 17 02/16/25 13:00 BP 116/75 02/16/25 13:00 Pulse Ox 92 L 02/16/25 13:00 FiO2 60 02/16/25 12:00 Intake & Output 02/15/25 02/16/25 02/16/25 18:59 06:59 18:59 Intake Total 2717.816 8438.526 1345.00 Output Total 1295 1395 1550 Balance 136.043 380.526 -205.00 Weight 53 kg 57.2 kg Intake: Intake, IV Titration 0127.661 7310.526 1075.00 Amount Cefepime 2 gm In Sodium 100 100 Chloride 0.9% 100 ml @ 25 mls/hr IVPB Q8HR [facility] Rx# :[id number] Dexmedetomidine/0.9% NaCl 23.475 (Pmx) 400 mcg In Empty Bag 1 bag @ 0.2 MCG/KG/HR 2.65 mls/hr IV .Q24H [facility] Rx#:[id number] Lactated Ringers 1,000 ml 935 825 525 @ 75 mls/hr IV .[id number] [facility] Rx#:[id number] Magnesium Sulfate-D5w Pmx 100 1 gm In Dextrose/Water 1 100ml.bag @ 100 mls/hr IVPB ONCE ONE Rx#: [id number] Norepinephrine 32 mg In 2.918 Sodium Chloride 0.9% 218 ml @ 0.03 MCG/KG/MIN 0. 893 mls/hr IV .Q24H [facility] Rx#:[id number] Piperacillin-Tazobactam 3 100 .375 gm In Sodium Chloride 0.9% 100 ml @ 25 mls/hr IVPB Q8H [facility] Rx#: [id number] Vancomycin 1,000 mg In 250 Sodium Chloride 0.9% 250 ml @ 125 mls/hr IVPB ONCE [facility] Rx#:[id number] Vancomycin 1,000 mg In 250 Sodium Chloride 0.9% 250 ml @ 125 mls/hr IVPB Q12H [facility] Rx#:[id number] Vancomycin 1,000 mg In 250 Sodium Chloride 0.9% 250 ml @ 125 mls/hr IVPB Q16H [facility] Rx#:[id number] propofoL 1,000 mg In 169.650 120.526 100.00 Empty Bag 1 bag @ 15 MCG/ KG/MIN 5.715 mls/hr IV . [id number] [facility] Rx#:[id number] Tube Feeding 260 230 Other 50 120 40 Output: Urine 1295 1395 1550 Other: Voiding Method Indwelling Catheter Indwelling Catheter Indwelling Catheter # Bowel Movements 1 ABP, PAP, CO, CI - Last Documented Arterial Blood Pressure 71/63 - Exam GENERAL DESCRIPTION: Middle-age female lying in bed in no distress RESPIRATORY SYSTEM: Unlabored breathing , decreased breath sounds at bases HEART: S1 S2 regular rate and rhythm , ABDOMEN: Soft , no tenderness EXTREMITIES: No edema feet - Labs CBC & Chem 7: 02/16/25 05:25 02/16/25 05:25 Labs: Abnormal Lab Results - Last 24 Hours (Table) 02/16/25 02/16/25 02/16/25 Range/Units 05:08 05:25 05:25 RBC 3.20 L (4.10-5.20) 10*6/uL Hgb 8.5 L (12.0-15.0) g/dL Hct 27.3 L (37.2-46.3) % MCH 26.6 L (27.0-32.0) pg MCHC 31.1 L (32.0-37.0) g/dL MPV 9.0 L (9.5-12.2) fL Lymphocytes # 0.77 L (0.90-5.00) 10*3/uL Eosinophils # 0.00 L (0.04-0.35) 10*3/uL ABG pO2 139 H (83-108) mmHg ABG HCO3 27 H (21-25) mmol/L ABG Total CO2 28 H (19-24) mmol/L ABG O2 Saturation 99.8 H (94-97) % Hemoglobin 8.7 L (11.4-16.0) gm/dL Potassium 3.2 L (3.5-5.1) mmol/L BUN 18 H (7-17) mg/dL Glucose 114 H (74-99) mg/dL POC Glucose (mg/dL) (70-110) mg/dL 02/16/25 Range/Units 06:57 RBC (4.10-5.20) 10*6/uL Hgb (12.0-15.0) g/dL Hct (37.2-46.3) % MCH (27.0-32.0) pg MCHC (32.0-37.0) g/dL MPV (9.5-12.2) fL Lymphocytes # (0.90-5.00) 10*3/uL Eosinophils # (0.04-0.35) 10*3/uL ABG pO2 (83-108) mmHg ABG HCO3 (21-25) mmol/L ABG Total CO2 (19-24) mmol/L ABG O2 Saturation (94-97) % Hemoglobin (11.4-16.0) gm/dL Potassium (3.5-5.1) mmol/L BUN (7-17) mg/dL Glucose (74-99) mg/dL POC Glucose (mg/dL) 155 H (70-110) mg/dL Microbiology - Last 24 Hours (Table) 02/14/25 13:32 Blood Culture Gram Stain - Preliminary Blood Blood Culture - Preliminary Staphylococcus simulans Molecular ID 02/14/25 13:33 Gram Stain - Preliminary Sputum Sputum Culture - Preliminary Pseudomonas spec Assessment and Plan (1) Pneumonia Current Visit: No Status: Acute Code(s): J18.9 - PNEUMONIA, UNSPECIFIED ORGANISM SNOMED Code(s): 715824784 (2) Positive blood culture Current Visit: Yes Status: Acute Code(s): R78.81 - BACTEREMIA SNOMED Code(s): 833149577 Plan: 1patient presented to hospital with episode of unresponsiveness/seizure patient noted to be significantly hypoxic requiring intubation and this patient did have a chronic tracheostomy from a previous episode of following intubation and respiratory failure, possible component of pneumonia/UTI not entirely excluded 2-patient did have positive blood culture with Staphylococcus simulans question of skin contamination versus true pathogen blood culture has been repeated 3sputum is growing Pseudomonas sensitivities pending continue with the vancomycin and cefepime while waiting for the culture to finalize Dictation was produced using [employer] dictation software. please excuse any grammatical, word or spelling errors. Time with Patient: Less than 30
[2025-02-16] MEDS: NICOTINE 21MG/24HR PATCH TRANSDERM SCH (16:10)
--- NOTE | 2025-02-16 17:35 | PN ---
PROGRESS NOTE DATE OF SERVICE: 02/16/2025 SUBJECTIVE: This is a 54-year-old woman was admitted with sepsis, hypotension, acute respiratory failure is on mechanical ventilation, which is being titrated off at this time. The patient is on pressure support only. Her sensorium has improved. The patient is on broad spectrum IV antibiotics. Dr. Starkey is following the patient closely. Chest x- ray did show some improvement. The sputum culture showed Pseudomonas and blood culture showed Staph, possibly contaminant. PAST MEDICAL HISTORY: Reviewed. REVIEW OF SYSTEMS: Could not be taken. CURRENT MEDICATIONS: Reviewed. PHYSICAL EXAMINATION: VITAL SIGNS: Pulse is 100, blood pressure 140/90, and respiration 11. HEENT: Conjunctivae normal. NECK: Tracheostomy. CARDIOVASCULAR: S1 and S2. RESPIRATION: Bilateral scattered rhonchi and crackles. ABDOMEN: Soft. LABORATORY DATA: Noted. ASSESSMENT: 1. Chronic obstructive pulmonary disease acute exacerbation with acute hypoxic hypercarbic respiratory failure, status post mechanical ventilation. 2. Possibly sepsis, Pseudomonas and Pseudomonas pneumonia. 3. History of asthma. 4. History of deep venous thrombosis. 5. History of fibromyalgia. 6. Change in mental status, acute delirium. 7. Congestive heart failure history. 8. History of myocardial infarctions, anxiety, bipolar, depression, posttraumatic stress disorder. 9. History of recent surgical wound dehiscence and thoracic spine. 10.History of seizure disorder. 11.Multiple complex medical issues. RECOMMENDATIONS AND DISCUSSION: Recommend to continue current management and continue symptomatic treatment. Otherwise I would repeat blood cultures and continue the antibiotics. Repeat labs. Potassium supplementation. Guarded prognosis, because of multiple complex medical issues. Further recommendations to follow. MMODL / IJN: [id number] /
[2025-02-16] MEDS: VANCOMYCIN TROUGH DUE 1 EACH MISC MISCELLANE ONE (18:12)
[2025-02-16 20:22] LABS: Glucose,Whole Blood 140 mg/dL (70-110)
[2025-02-17 00:17] LABS: Glucose,Whole Blood 178 mg/dL (70-110)
[2025-02-17] MEDS: HALOPERIDOL LACTATE 5 MG/ML 1 ML VIAL IVP PRN (02:32)
[2025-02-17 04:47] LABS: HCT 29.7 % (37.2-46.3); HGB 8.8 g/dL (12.0-15.0); Lymphocytes # (A) 0.57 10*3/uL (0.90-5.00); Lymphocytes % (A) 5.2 %; MCHC 29.6 g/dL (32.0-37.0); MCV 87.6 fL (80.0-97.0); Mean Platelet Volume 8.7 fL (9.5-12.2); Monocytes # (A) 0.63 10*3/uL (0.20-1.00); Monocytes % (A) 5.8 %; Neutrophils # (A) 9.63 10*3/uL (1.80-7.70); Neutrophils % (A) 88.4 %; Platelet Count 291 10*3/uL (140-440); RBC 3.39 10*6/uL (4.10-5.20); RDW 16.1 % (11.5-14.5); WBC 10.89 10*3/uL (4.50-10.00)
[2025-02-17 05:08] LABS: African American GFR (CKD) >90 (>60 ml/min/1.73 sqM); Anion Gap 4 mmol/L; Blood Urea Nitrogen 24 mg/dL (7-17); Calcium 8.4 mg/dL (8.4-10.2); Carbon Dioxide 32 mmol/L (22-30); Chloride 106 mmol/L (98-107); Glucose 128 mg/dL (74-99); Magnesium 1.9 mg/dL (1.6-2.3); Non-African American GFR(CKD) >90 (>60 ml/min/1.73 sqM); Potassium 3.6 mmol/L (3.5-5.1); Sodium 142 mmol/L (137-145)
[2025-02-17] MEDS ORDERED: Potassium Replacement Protocol 1 EACH MISC MISCELLANE PRN (05:58)
[2025-02-17 06:19] LABS: Glucose,Whole Blood 118 mg/dL (70-110)
[2025-02-17] MEDS: MAGNESIUM SULFATE-D5W PMX 1 GM in DEXTROSE/WATER 1 100ML.BAG IVPB ONE (06:33)
[2025-02-17] MEDS: POTASSIUM CHLORIDE ER 20 MEQ TAB.ER PO SCH (06:34)
--- NOTE | 2025-02-17 07:22 | P.PN ---
Subjective This is a pleasant 54 years old female with past medical history of multiple medical problems as below Patient was admitted on 02/14 for being unresponsive. Patient was hypotensive on admission 50/21 on admission and heart rate was 64. Patient found to have septic shock and she was admitted to the ICU requiring pressors, currently she is awake alert blood pressure is stable does not need any pressors. She required mechanical ventilation via tracheostomy. Currently she denies any breathing difficulty or chest pain. She still have a lot of secretions via her tracheostomy tube. Her tube feeding was held overnight, patient requested. Residual was checked was low. Currently patient feels improved, she is up in bed awake and alert tracheostomy in place. Abdomen soft denies any specific complaint. Also she is hemodynamically stable and afebrile. Labs from today showing WBC 10.8, hemoglobin 8.8. BMP is unremarkable and glucose controlled. Vancomycin trough is 20.5 Objective - Vital Signs Vital signs: Vital Signs Temp 98.7 F 02/16/25 20:00 Pulse 96 02/17/25 07:00 Resp 16 02/17/25 07:00 BP 125/74 02/17/25 07:00 Pulse Ox 98 02/17/25 07:00 FiO2 40 02/17/25 07:00 Intake & Output 02/16/25 02/17/25 02/17/25 18:59 06:59 18:59 Intake Total 1940.00 3575 Output Total 2115 975 Balance -175.00 2600 Weight 59.8 kg Intake: IV 240 KVO 240 Intake, IV Titration 1450.00 1425 Amount Cefepime 2 gm In Sodium 100 100 Chloride 0.9% 100 ml @ 25 mls/hr IVPB Q8HR [facility] Rx# :[id number] Lactated Ringers 1,000 ml 900 975 @ 75 mls/hr IV .[id number] [facility] Rx#:[id number] Magnesium Sulfate-D5w Pmx 100 1 gm In Dextrose/Water 1 100ml.bag @ 100 mls/hr IVPB ONCE ONE Rx#: [id number] Magnesium Sulfate-D5w Pmx 100 1 gm In Dextrose/Water 1 100ml.bag @ 100 mls/hr IVPB ONCE ONE Rx#: [id number] Vancomycin 1,000 mg In 250 250 Sodium Chloride 0.9% 250 ml @ 125 mls/hr IVPB Q12H [facility] Rx#:[id number] propofoL 1,000 mg In 100.00 Empty Bag 1 bag @ 15 MCG/ KG/MIN 5.715 mls/hr IV . [id number] [facility] Rx#:[id number] Oral 1500 Tube Feeding 430 290 Other 60 120 Output: Urine 2115 975 Other: Voiding Method Indwelling Catheter Indwelling Catheter # Voids 1 # Bowel Movements 1 ABP, PAP, CO, CI - Last Documented Arterial Blood Pressure 140/79 - Exam GENERAL: The patient is alert and oriented x3, not in any acute distress. Well developed, well nourished. HEENT: Pupils are round and equally reacting to light. EOMI. No scleral icterus. No conjunctival pallor. Normocephalic, atraumatic. No pharyngeal erythema. No thyromegaly. CARDIOVASCULAR: S1 and S2 present. No murmurs, rubs, or gallops. -PULMONARY: Chest is clear to auscultation, no wheezing , no crackles. S/p tracheostomy -ABDOMEN: Soft, nontender, nondistended, normoactive bowel sounds. No palpable organomegaly. Status post PEG tube MUSCULOSKELETAL: No joint swelling or deformity. EXTREMITIES: No cyanosis, clubbing, or pedal edema. NEUROLOGICAL: Gross neurological examination did not reveal any focal deficits. SKIN: No rashes. no petechiae. - Labs CBC & Chem 7: 02/17/25 04:13 02/17/25 04:13 Labs: Abnormal Lab Results - Last 24 Hours (Table) 02/16/25 02/17/25 02/17/25 Range/Units 20:19 00:15 04:13 WBC 10.89 H (4.50-10.00) 10*3/uL RBC 3.39 L (4.10-5.20) 10*6/uL Hgb 8.8 L (12.0-15.0) g/dL Hct 29.7 L (37.2-46.3) % MCH 26.0 L (27.0-32.0) pg MCHC 29.6 L (32.0-37.0) g/dL MPV 8.7 L (9.5-12.2) fL Immature Gran # 0.06 H (0.00-0.04) 10*3/uL Neutrophils # 9.63 H (1.80-7.70) 10*3/uL Lymphocytes # 0.57 L (0.90-5.00) 10*3/uL Eosinophils # 0.00 L (0.04-0.35) 10*3/uL Carbon Dioxide (22-30) mmol/L BUN (7-17) mg/dL Glucose (74-99) mg/dL POC Glucose (mg/dL) 140 H 178 H (70-110) mg/dL 02/17/25 02/17/25 Range/Units 04:13 06:17 WBC (4.50-10.00) 10*3/uL RBC (4.10-5.20) 10*6/uL Hgb (12.0-15.0) g/dL Hct (37.2-46.3) % MCH (27.0-32.0) pg MCHC (32.0-37.0) g/dL MPV (9.5-12.2) fL Immature Gran # (0.00-0.04) 10*3/uL Neutrophils # (1.80-7.70) 10*3/uL Lymphocytes # (0.90-5.00) 10*3/uL Eosinophils # (0.04-0.35) 10*3/uL Carbon Dioxide 32 H (22-30) mmol/L BUN 24 H (7-17) mg/dL Glucose 128 H (74-99) mg/dL POC Glucose (mg/dL) 118 H (70-110) mg/dL Microbiology - Last 24 Hours (Table) 02/15/25 23:49 Gram Stain - Preliminary Abdomen Wound Culture - Preliminary 02/14/25 13:32 Blood Culture Gram Stain - Preliminary Blood Blood Culture - Preliminary Staphylococcus simulans Molecular ID Assessment and Plan Assessment: Septic shock Acute hypoxic hypercapnic respiratory failure on mechanical ventilation Pneumonia Acute COPD exacerbation Dysphagia status post PEG Chronic respiratory failure status post tracheostomy Multiple neck and spine surgery with history of wound dehiscence Hypertension Hyperlipidemia CHF Seizure disorder Hypothyroidism Plan: Continue with antibiotics IV cefepime and vancomycin Infectious disease consult Continue with IV hydration Continue with steroids Pulmonary team consult Off pressors labs and medication were reviewed.. Continue same treatment. Continue with symptomatic treatment. Resume home medication. Monitor labs and vitals. DVT and GI prophylaxis. Further recommendations as per clinical course of the patient DVT prophylaxis: Subcutaneous heparin GI Prophylaxis: Pe Protonix PT/OT: Pending Prognosis is guarded
[2025-02-17 12:29] LABS: Glucose,Whole Blood 222 mg/dL (70-110)
--- NOTE | 2025-02-17 12:29 | XR ---
EXAMINATION TYPE: XR chest 1V portable DATE OF EXAM: 02/17/2025 5:36 AM COMPARISON: None. CLINICAL INDICATION: Female, 54 years old with history of ICU managment-post trach vent, TECHNIQUE: XR chest 1V portable view(s) obtained. FINDINGS: The heart size is normal. The pulmonary vasculature is normal. The lungs are clear. Tracheostomy is in the midline. IMPRESSION: 1. No acute pulmonary process. [facility], , 02/17/2025 12:27 PM
[2025-02-17 12:51] VITALS: BMI 22.6
--- NOTE | 2025-02-17 13:35 | P.PN ---
Subjective Progress Note Date: 02/17/25 Principal diagnosis: Acute hypoxic and hypercapnic respiratory failure and sepsis. This is a 54-year-old female patient with a known history of chronic obstructive pulmonary disease, chronic hypoxic respiratory failure, previous significant spine and neck surgery requiring prolonged mechanical ventilation and subsequent tracheostomy tube placement, seizure disorder, hypothyroidism, anxiety/depression, hypertension, hyperlipidemia, coronary artery disease. She was seen in our office earlier today and had what appeared to be either a seizure or syncopal episode and was sent here to the emergency room for the same. CT scan of the brain revealed no significant abnormality. No acute bleed or mass effect. CT scan of the abdomen revealed a small right pleural effusion. Mild ascites. PEG tube catheter in place. Howell catheter in place. The patient remained obtunded and hypotensive and was placed on the mechanical ventilator. Currently on assist-control mode at a rate of 20. Tidal volume 300. FiO2 50% and a PEEP of 5. Follow-up blood gases revealed a PO2 of 83, PCO2 of 57 and a pH of 7.23. Her respiratory rate was increased to 26. She is also requiring norepinephrine currently at 0.15 mcg/kg/min. She is on propofol at 10 mcg/kg/min. White count 8.0. Hemoglobin 10.7. Platelets 209. Sodium 136. Potassium 4.3. Bicarb 18. BUN 29. Creatinine 1.51. Glucose 161. Urinalysis cloudy with 3+ protein and trace glucose and few WBCs. She is seen in consultation in the emergency department. Remains obtunded. Currently afebrile. Mean arterial pressure 74. Patient was seen today on 02/15/2025, remains in the ICU, intubated and mechanically ventilated, patient is on assist-control rate of 30 tidal volume 350 FiO2 50% PEEP of 5 ABG showed a pO2 of 90 pCO2 47 pH of 7.29. Patient still on propofol at 40 mcg/kg/min she is also on norepinephrine at 0.04 mcg/kg/min LR at 130 cc/h remains empirically on Zosyn and vancomycin, her blood cultures are positive for gram-positive cocci, I suspect the patient is having bacteremia from her previous surgical wound/spine. Hence we will consult infectious disease will also consult orthopedic to evaluate. Patient was comfortable during my evaluation and she was placed on pressure support of 14 and CPAP, she was tolerating that quite well, however later on patient developed worsening mental status, and agitation, and wanted to be discharged home as soon as possible. Patient was given Haldol, she was also given Precedex, but she remained agitated, she also developed some black tarry stools. Hemoglobin had a minimal drop, hence the patient will be placed back on assist-control mode of mechanical ventilation, will continue with antibiotics, and obviously the patient is not ready for any discharge. She is obviously septic, and she has acute toxic metabolic encephalopathy from her sepsis and septic shock picture. WBC count is 8.3 hemoglobin 8.8, basic metabolic profile is normal potassium is 2.8 BUN is 21 creatinine 0.89 Patient was seen today on 02/16/2025, remains in the ICU, intubated mechanically ventilated, patient is wide-awake even on propofol at 50 mcg/kg/min. Blood cultures came back positive remains on cefepime and vancomycin, patient will be seen by infectious disease on consultation. On assist-control rate 30 tidal volume 350 FiO2 40% PEEP of 5 ABG showed a pO2 of 139 pCO2 41 pH of 7.43. Chest x-ray no evidence of active disease. CBC is relatively normal except for hemoglobin of 8.5 basic metabolic profile is normal except for potassium of 3.2. Magnesium today is 1.8. Patient is awake, follows all instructions, hands and planning to go the patient a trial of pressure support and CPAP, may even consider transitioning the patient to trach collar again today. Depending on how she does on pressure support and CPAP and off propofol. Seen today on 02/17/2025, patient remains in the ICU, she is now on trach collar, awake, does not seem to be in any distress, she developed significant agitation yesterday, and she required Haldol which seemed to work for the patient. Remains on antibiotics remains on bronchodilators, she is also on Solu-Medrol, she has a trach collar at 40%, LR at 75 cc/h. Sputum is positive for Pseudomonas aeruginosa, blood was positive for Staphylococcus simulans being followed by infectious disease, on vancomycin, and on cefepime infectious disease on the case would likely recommend stopping vancomycin as staph simulans. It is likely a skin contamination. But continue cefepime or transition the patient to oral antipseudomonal drug/Cipro or Levaquin as the patient seems to be insisting on going home as soon as possible. I have a feeling she may even sign out AGAINST MEDICAL ADVICE. Labs today were reviewed WBC is 10.8 hemoglobin 8.8 electrolytes are normal renal profile is normal chest x-ray continues to show no evidence of acute pulmonary process Objective - Vital Signs Vital signs: Vital Signs Temp 98.4 F 02/17/25 12:00 Pulse 84 02/17/25 13:00 Resp 16 02/17/25 13:00 BP 111/69 02/17/25 12:00 Pulse Ox 97 02/17/25 13:00 FiO2 35 02/17/25 12:26 Intake & Output 02/16/25 02/17/25 02/17/25 18:59 06:59 18:59 Intake Total 1940.00 3575 825 Output Total 2115 975 650 Balance -175.00 2600 175 Weight 59.8 kg 59.8 kg Intake: IV 240 450 Cefepime 2 gm In Sodium 100 Chloride 0.9% 100 ml @ 25 mls/hr IVPB Q8HR [facility] Rx# :[id number] KVO 240 100 Vancomycin 1,000 mg In 250 Sodium Chloride 0.9% 250 ml @ 125 mls/hr IVPB Q12H [facility] Rx#:[id number] Intake, IV Titration 1450.00 1425 375 Amount Cefepime 2 gm In Sodium 100 100 Chloride 0.9% 100 ml @ 25 mls/hr IVPB Q8HR [facility] Rx# :[id number] Lactated Ringers 1,000 ml 900 975 375 @ 75 mls/hr IV .[id number] [facility] Rx#:[id number] Magnesium Sulfate-D5w Pmx 100 1 gm In Dextrose/Water 1 100ml.bag @ 100 mls/hr IVPB ONCE ONE Rx#: [id number] Magnesium Sulfate-D5w Pmx 100 1 gm In Dextrose/Water 1 100ml.bag @ 100 mls/hr IVPB ONCE ONE Rx#: [id number] Vancomycin 1,000 mg In 250 250 Sodium Chloride 0.9% 250 ml @ 125 mls/hr IVPB Q12H [facility] Rx#:[id number] propofoL 1,000 mg In 100.00 Empty Bag 1 bag @ 15 MCG/ KG/MIN 5.715 mls/hr IV . [id number] [facility] Rx#:[id number] Oral 1500 Tube Feeding 430 290 0 Other 60 120 Output: Urine 2115 975 650 Other: Voiding Method Indwelling Catheter Indwelling Catheter Indwelling Catheter # Voids 1 # Bowel Movements 1 ABP, PAP, CO, CI - Last Documented Arterial Blood Pressure 123/63 - Exam GENERAL EXAM: On trach collar, in no distress HEAD: Normocephalic. EYES: Normal reaction of pupils, equal size. NOSE: Clear with pink turbinates. THROAT: #4 Shiley cuffed tracheostomy tube secured in place. No erythema or exudates. NECK: No masses, no JVD. CHEST: No chest wall deformity. LUNGS: Equal air entry with no crackles, wheeze, rhonchi or dullness. CVS: S1 and S2 normal with no audible murmur, regular rhythm. ABDOMEN: PEG tube exit site clean and dry. No hepatosplenomegaly, normal bowel sounds, no guarding or rigidity. SKIN: No rashes CENTRAL NERVOUS SYSTEM: Awake no focal deficit EXTREMITIES: There is no peripheral edema. No clubbing, no cyanosis. Peripheral pulses are intact. - Labs CBC & Chem 7: 02/17/25 04:13 02/17/25 04:13 Labs: Abnormal Lab Results - Last 24 Hours (Table) 02/16/25 02/17/25 02/17/25 Range/Units 20:19 00:15 04:13 WBC 10.89 H (4.50-10.00) 10*3/uL RBC 3.39 L (4.10-5.20) 10*6/uL Hgb 8.8 L (12.0-15.0) g/dL Hct 29.7 L (37.2-46.3) % MCH 26.0 L (27.0-32.0) pg MCHC 29.6 L (32.0-37.0) g/dL MPV 8.7 L (9.5-12.2) fL Immature Gran # 0.06 H (0.00-0.04) 10*3/uL Neutrophils # 9.63 H (1.80-7.70) 10*3/uL Lymphocytes # 0.57 L (0.90-5.00) 10*3/uL Eosinophils # 0.00 L (0.04-0.35) 10*3/uL Carbon Dioxide (22-30) mmol/L BUN (7-17) mg/dL Glucose (74-99) mg/dL POC Glucose (mg/dL) 140 H 178 H (70-110) mg/dL 02/17/25 02/17/25 02/17/25 Range/Units 04:13 06:17 12:28 WBC (4.50-10.00) 10*3/uL RBC (4.10-5.20) 10*6/uL Hgb (12.0-15.0) g/dL Hct (37.2-46.3) % MCH (27.0-32.0) pg MCHC (32.0-37.0) g/dL MPV (9.5-12.2) fL Immature Gran # (0.00-0.04) 10*3/uL Neutrophils # (1.80-7.70) 10*3/uL Lymphocytes # (0.90-5.00) 10*3/uL Eosinophils # (0.04-0.35) 10*3/uL Carbon Dioxide 32 H (22-30) mmol/L BUN 24 H (7-17) mg/dL Glucose 128 H (74-99) mg/dL POC Glucose (mg/dL) 118 H 222 H (70-110) mg/dL Microbiology - Last 24 Hours (Table) 02/14/25 13:33 Gram Stain - Final Sputum Sputum Culture - Final Pseudomonas aeruginosa 02/15/25 18:31 Nasal Screen MRSA/MSSA - Final Nasopharyngeal Swab 02/15/25 23:49 Gram Stain - Preliminary Abdomen Wound Culture - Preliminary 02/14/25 13:32 Blood Culture Gram Stain - Preliminary Blood Blood Culture - Preliminary Staphylococcus simulans Molecular ID Assessment and Plan Assessment: Impression: Acute hypoxic and hypercapnic respiratory failure most likely secondary bacteremia with sepsis and septic shock with acute metabolic encephalopathy =Acute hypoxemic respiratory failure secondary to above requiring mechanical ventilatory support. Uncuffed trach changed out to a cuffed #4 Shiley History of prolonged respiratory failure requiring tracheostomy and PEG tube placement Multiple neck and spine surgeries including thoracolumbar wound dehiscence Advanced chronic obstructive pulmonary disease Hypertension Hyperlipidemia Coronary disease History of congestive heart failure History of seizure disorder Hypothyroidism History of anxiety/depression/PTSD Pseudomonal tracheobronchitis, on cefepime. Recommendation: Continue trach collar Transfer patient to the medical surgical floor Continue antibiotics as per ID considering stopping vancomycin and use oral antibiotic to replace cefepime for Pseudomonas tracheobronchitis Continue GI DVT prophylaxis Will continue to follow Prognosis is guarded Patient will likely go home AMA as she is insisting on being discharged. Will continue to follow Time with Patient: Less than 30
[2025-02-17] MEDS: MEROPENEM 1 GM in SODIUM CHLORIDE 0.9% 100 ML IVPB SCH (16:56)
[2025-02-17] MEDS: IBUPROFEN 800 MG TAB PEG/G-TUBE PRN (21:03)
[2025-02-18] MEDS: VANCOMYCIN 1,000 MG in SODIUM CHLORIDE 0.9% 250 ML IVPB SCH (03:34)
--- NOTE | 2025-02-18 12:53 | P.PN ---
Subjective This is a pleasant 54 years old female with past medical history of multiple medical problems as below Patient was admitted on 02/14 for being unresponsive. Patient was hypotensive on admission 50/21 on admission and heart rate was 64. Patient found to have septic shock and she was admitted to the ICU requiring pressors, currently she is awake alert blood pressure is stable does not need any pressors. She required mechanical ventilation via tracheostomy. Currently she denies any breathing difficulty or chest pain. She still have a lot of secretions via her tracheostomy tube. Her tube feeding was held overnight, patient requested. Residual was checked was low. Currently patient feels improved, she is up in bed awake and alert tracheostomy in place. Abdomen soft denies any specific complaint. Also she is hemodynamically stable and afebrile. Labs from today showing WBC 10.8, hemoglobin 8.8. BMP is unremarkable and glucose controlled. Vancomycin trough is 20.5 02/18 She is moved of the ICU to select units yesterday She is walking in the room freely but she is connected through her tracheostomy tube to the oxygen on the wall. Currently requiring 8 units via nasal cannula Patient looks relaxed and smiling requesting to be discharged. Informed the patient she is not ready for discharge she is on IV antibiotics and IV steroids and IV fluids. She agrees to stay. No other new complaints Howell catheter in place Objective - Vital Signs Vital signs: Vital Signs Temp 98.4 F 02/18/25 03:13 Pulse 90 02/18/25 08:48 Resp 18 02/18/25 03:13 BP 104/69 02/18/25 03:13 Pulse Ox 97 02/18/25 08:27 FiO2 35 02/18/25 08:27 Intake & Output 02/17/25 02/18/25 02/18/25 18:59 06:59 18:59 Intake Total 1205 Output Total 1395 750 225 Balance -190 -750 -225 Weight 59.8 kg 59.6 kg Intake: IV 530 Cefepime 2 gm In Sodium 100 Chloride 0.9% 100 ml @ 25 mls/hr IVPB Q8HR [facility] Rx# :[id number] KVO 180 Vancomycin 1,000 mg In 250 Sodium Chloride 0.9% 250 ml @ 125 mls/hr IVPB Q12H [facility] Rx#:[id number] Intake, IV Titration 675 Amount Lactated Ringers 1,000 ml 675 @ 75 mls/hr IV .[id number] [facility] Rx#:[id number] Tube Feeding 0 Output: Urine 1395 750 225 Other: Voiding Method Indwelling Catheter Indwelling Catheter # Bowel Movements 1 ABP, PAP, CO, CI - Last Documented Arterial Blood Pressure 99/57 - Exam GENERAL: The patient is alert and oriented x3, not in any acute distress. Well developed, well nourished. HEENT: Pupils are round and equally reacting to light. EOMI. No scleral icterus. No conjunctival pallor. Normocephalic, atraumatic. No pharyngeal erythema. No thyromegaly. CARDIOVASCULAR: S1 and S2 present. No murmurs, rubs, or gallops. -PULMONARY: Chest is clear to auscultation, no wheezing , no crackles. S/p tracheostomy -ABDOMEN: Soft, nontender, nondistended, normoactive bowel sounds. No palpable organomegaly. Status post PEG tube MUSCULOSKELETAL: No joint swelling or deformity. EXTREMITIES: No cyanosis, clubbing, or pedal edema. NEUROLOGICAL: Gross neurological examination did not reveal any focal deficits. SKIN: No rashes. no petechiae. - Labs CBC & Chem 7: 02/17/25 04:13 02/17/25 04:13 Labs: Abnormal Lab Results - Last 24 Hours (Table) 02/17/25 Range/Units 12:28 POC Glucose (mg/dL) 222 H (70-110) mg/dL Microbiology - Last 24 Hours (Table) 02/15/25 23:49 Anaerobic Culture - Preliminary Catheter Site 02/16/25 14:06 Blood Culture - Preliminary Blood 02/15/25 23:49 Gram Stain - Final Abdomen Wound Culture - Final Erin albicans 02/14/25 13:32 Blood Culture Gram Stain - Final Blood Blood Culture - Final Staphylococcus simulans Dermabacter hominis Molecular ID 02/14/25 13:33 Gram Stain - Final Sputum Sputum Culture - Final Pseudomonas aeruginosa 02/15/25 18:31 Nasal Screen MRSA/MSSA - Final Nasopharyngeal Swab Assessment and Plan Assessment: Septic shock Acute hypoxic hypercapnic respiratory failure on mechanical ventilation Pneumonia Acute COPD exacerbation Dysphagia status post PEG Chronic respiratory failure status post tracheostomy Multiple neck and spine surgery with history of wound dehiscence Hypertension Hyperlipidemia CHF Seizure disorder Hypothyroidism Plan: Continue with antibiotics IV cefepime and vancomycin Infectious disease consult Continue with IV hydration Continue with steroids Pulmonary team consult Off pressors labs and medication were reviewed.. Continue same treatment. Continue with symptomatic treatment. Resume home medication. Monitor labs and vitals. DVT and GI prophylaxis. Further recommendations as per clinical course of the patient DVT prophylaxis: Subcutaneous heparin GI Prophylaxis: Pe Protonix PT/OT: Pending Prognosis is guarded
--- NOTE | 2025-02-18 14:28 | P.PN ---
Subjective Progress Note Date: 02/18/25 Principal diagnosis: Acute hypoxic and hypercapnic respiratory failure and sepsis. This is a 54-year-old female patient with a known history of chronic obstructive pulmonary disease, chronic hypoxic respiratory failure, previous significant spine and neck surgery requiring prolonged mechanical ventilation and subsequent tracheostomy tube placement, seizure disorder, hypothyroidism, anxiety/depression, hypertension, hyperlipidemia, coronary artery disease. She was seen in our office earlier today and had what appeared to be either a seizure or syncopal episode and was sent here to the emergency room for the same. CT scan of the brain revealed no significant abnormality. No acute bleed or mass effect. CT scan of the abdomen revealed a small right pleural effusion. Mild ascites. PEG tube catheter in place. Howell catheter in place. The patient remained obtunded and hypotensive and was placed on the mechanical ventilator. Currently on assist-control mode at a rate of 20. Tidal volume 300. FiO2 50% and a PEEP of 5. Follow-up blood gases revealed a PO2 of 83, PCO2 of 57 and a pH of 7.23. Her respiratory rate was increased to 26. She is also requiring norepinephrine currently at 0.15 mcg/kg/min. She is on propofol at 10 mcg/kg/min. White count 8.0. Hemoglobin 10.7. Platelets 209. Sodium 136. Potassium 4.3. Bicarb 18. BUN 29. Creatinine 1.51. Glucose 161. Urinalysis cloudy with 3+ protein and trace glucose and few WBCs. She is seen in consultation in the emergency department. Remains obtunded. Currently afebrile. Mean arterial pressure 74. Patient was seen today on 02/15/2025, remains in the ICU, intubated and mechanically ventilated, patient is on assist-control rate of 30 tidal volume 350 FiO2 50% PEEP of 5 ABG showed a pO2 of 90 pCO2 47 pH of 7.29. Patient still on propofol at 40 mcg/kg/min she is also on norepinephrine at 0.04 mcg/kg/min LR at 130 cc/h remains empirically on Zosyn and vancomycin, her blood cultures are positive for gram-positive cocci, I suspect the patient is having bacteremia from her previous surgical wound/spine. Hence we will consult infectious disease will also consult orthopedic to evaluate. Patient was comfortable during my evaluation and she was placed on pressure support of 14 and CPAP, she was tolerating that quite well, however later on patient developed worsening mental status, and agitation, and wanted to be discharged home as soon as possible. Patient was given Haldol, she was also given Precedex, but she remained agitated, she also developed some black tarry stools. Hemoglobin had a minimal drop, hence the patient will be placed back on assist-control mode of mechanical ventilation, will continue with antibiotics, and obviously the patient is not ready for any discharge. She is obviously septic, and she has acute toxic metabolic encephalopathy from her sepsis and septic shock picture. WBC count is 8.3 hemoglobin 8.8, basic metabolic profile is normal potassium is 2.8 BUN is 21 creatinine 0.89 Patient was seen today on 02/16/2025, remains in the ICU, intubated mechanically ventilated, patient is wide-awake even on propofol at 50 mcg/kg/min. Blood cultures came back positive remains on cefepime and vancomycin, patient will be seen by infectious disease on consultation. On assist-control rate 30 tidal volume 350 FiO2 40% PEEP of 5 ABG showed a pO2 of 139 pCO2 41 pH of 7.43. Chest x-ray no evidence of active disease. CBC is relatively normal except for hemoglobin of 8.5 basic metabolic profile is normal except for potassium of 3.2. Magnesium today is 1.8. Patient is awake, follows all instructions, hands and planning to go the patient a trial of pressure support and CPAP, may even consider transitioning the patient to trach collar again today. Depending on how she does on pressure support and CPAP and off propofol. Seen today on 02/17/2025, patient remains in the ICU, she is now on trach collar, awake, does not seem to be in any distress, she developed significant agitation yesterday, and she required Haldol which seemed to work for the patient. Remains on antibiotics remains on bronchodilators, she is also on Solu-Medrol, she has a trach collar at 40%, LR at 75 cc/h. Sputum is positive for Pseudomonas aeruginosa, blood was positive for Staphylococcus simulans being followed by infectious disease, on vancomycin, and on cefepime infectious disease on the case would likely recommend stopping vancomycin as staph simulans. It is likely a skin contamination. But continue cefepime or transition the patient to oral antipseudomonal drug/Cipro or Levaquin as the patient seems to be insisting on going home as soon as possible. I have a feeling she may even sign out AGAINST MEDICAL ADVICE. Labs today were reviewed WBC is 10.8 hemoglobin 8.8 electrolytes are normal renal profile is normal chest x-ray continues to show no evidence of acute pulmonary process Seen today on 02/18/2025, patient keeps insisting on being discharged home, however the patient is still requiring treatment with IV antibiotics for her pseudomonal infection. She is being followed by multiple consultants including infectious disease. I saw this patient yesterday in the ICU and I transferred to medical floor, she has a trach collar in place, she has a tracheostomy, still requiring 40% FiO2 on trach collar. Apparently she was convinced by the admi tting physician to stay in the hospital for now. CBC is relatively normal hemoglobin is 8.8 electrolytes are normal renal profile is normal repeat blood cultures from 02/16 are pending. Objective - Vital Signs Vital signs: Vital Signs Temp 98.4 F 02/18/25 03:13 Pulse 84 02/18/25 12:00 Resp 16 02/18/25 12:00 BP 95/57 02/18/25 12:00 Pulse Ox 98 02/18/25 12:00 FiO2 35 02/18/25 08:27 Intake & Output 02/17/25 02/18/25 02/18/25 18:59 06:59 18:59 Intake Total 1205 236 Output Total 1629 397 7251 Balance -190 750 1564 Weight 59.8 kg 59.6 kg Intake: IV 530 Cefepime 2 gm In Sodium 100 Chloride 0.9% 100 ml @ 25 mls/hr IVPB Q8HR [facility] Rx# :[id number] KVO 180 Vancomycin 1,000 mg In 250 Sodium Chloride 0.9% 250 ml @ 125 mls/hr IVPB Q12H [facility] Rx#:[id number] Intake, IV Titration 675 Amount Lactated Ringers 1,000 ml 675 @ 75 mls/hr IV .[id number] [facility] Rx#:[id number] Oral 236 Tube Feeding 0 Output: Urine 0549 604 2531 Other: Voiding Method Indwelling Catheter Indwelling Catheter Indwelling Catheter # Bowel Movements 1 ABP, PAP, CO, CI - Last Documented Arterial Blood Pressure 99/57 - Exam GENERAL EXAM: On trach collar, in no distress HEAD: Normocephalic. EYES: Normal reaction of pupils, equal size. NOSE: Clear with pink turbinates. THROAT: #4 Shiley cuffed tracheostomy tube secured in place. No erythema or exudates. NECK: No masses, no JVD. CHEST: No chest wall deformity. LUNGS: Equal air entry with no crackles, wheeze, rhonchi or dullness. CVS: S1 and S2 normal with no audible murmur, regular rhythm. ABDOMEN: PEG tube exit site clean and dry. No hepatosplenomegaly, normal bowel sounds, no guarding or rigidity. SKIN: No rashes CENTRAL NERVOUS SYSTEM: Awake no focal deficit, oriented x 3 EXTREMITIES: There is no peripheral edema. No clubbing, no cyanosis. Peripheral pulses are intact. - Labs CBC & Chem 7: 02/17/25 04:13 02/17/25 04:13 Labs: Microbiology - Last 24 Hours (Table) 02/15/25 23:49 Anaerobic Culture - Preliminary Catheter Site 02/16/25 14:06 Blood Culture - Preliminary Blood 02/15/25 23:49 Gram Stain - Final Abdomen Wound Culture - Final Erin albicans 02/14/25 13:32 Blood Culture Gram Stain - Final Blood Blood Culture - Final Staphylococcus simulans Dermabacter hominis Molecular ID Assessment and Plan Assessment: Impression: Acute hypoxic and hypercapnic respiratory failure most likely secondary bacteremia with sepsis and septic shock with acute metabolic encephalopathy =Acute hypoxemic respiratory failure secondary to above requiring mechanical ventilatory support. Uncuffed trach changed out to a cuffed #4 Shiley History of prolonged respiratory failure requiring tracheostomy and PEG tube placement Multiple neck and spine surgeries including thoracolumbar wound dehiscence Advanced chronic obstructive pulmonary disease Hypertension Hyperlipidemia Coronary disease History of congestive heart failure History of seizure disorder Hypothyroidism History of anxiety/depression/PTSD Pseudomonal tracheobronchitis, on cefepime. Recommendation: Continue trach collar Continue antibiotics as per ID considering stopping vancomycin and use oral antibiotic to replace cefepime for Pseudomonas tracheobronchitis Continue GI DVT prophylaxis Will continue to follow Prognosis is guarded Patient will likely go home AMA as she is insisting on being discharged. Will continue to follow Time with Patient: Less than 30
--- NOTE | 2025-02-18 14:35 | P.PN ---
Subjective Progress Note Date: 02/17/25 Principal diagnosis: Reason for follow-up is pneumonia/positive blood culture Patient is a 54-year-old female with a past medical history significant for hypertension hyperlipidemia fibromyalgia chronic back pain in this patient who did have multiple surgeries to the thoracic spine admitted to the hospital concerning for pneumonia/sepsis. On today's evaluation that is 02/17/2025, the patient continues to be afebrile, the patient is on trach collar and breathing comfortably, the Pt denies having any chest pain or worsening cough, the patient denies having any abdominal pain no vomiting or any diarrhea has been reported by the nursing staff. Patient white count is 10.89, creatinine 0.76 blood culture repeat has been negative so far Objective - Vital Signs Vital signs: Vital Signs Temp 98.4 F 02/17/25 12:00 Pulse 77 02/17/25 14:00 Resp 15 02/17/25 14:00 BP 100/61 02/17/25 14:00 Pulse Ox 96 02/17/25 14:00 FiO2 35 02/17/25 12:26 Intake & Output 02/16/25 02/17/25 02/17/25 18:59 06:59 18:59 Intake Total 1940.00 3575 920 Output Total 2115 975 1075 Balance -175.00 2600 -155 Weight 59.8 kg 59.8 kg Intake: IV 240 470 Cefepime 2 gm In Sodium 100 Chloride 0.9% 100 ml @ 25 mls/hr IVPB Q8HR [facility] Rx# :[id number] KVO 240 120 Vancomycin 1,000 mg In 250 Sodium Chloride 0.9% 250 ml @ 125 mls/hr IVPB Q12H [facility] Rx#:[id number] Intake, IV Titration 1450.00 1425 450 Amount Cefepime 2 gm In Sodium 100 100 Chloride 0.9% 100 ml @ 25 mls/hr IVPB Q8HR [facility] Rx# :[id number] Lactated Ringers 1,000 ml 900 975 450 @ 75 mls/hr IV .[id number] [facility] Rx#:[id number] Magnesium Sulfate-D5w Pmx 100 1 gm In Dextrose/Water 1 100ml.bag @ 100 mls/hr IVPB ONCE ONE Rx#: [id number] Magnesium Sulfate-D5w Pmx 100 1 gm In Dextrose/Water 1 100ml.bag @ 100 mls/hr IVPB ONCE ONE Rx#: [id number] Vancomycin 1,000 mg In 250 250 Sodium Chloride 0.9% 250 ml @ 125 mls/hr IVPB Q12H [facility] Rx#:[id number] propofoL 1,000 mg In 100.00 Empty Bag 1 bag @ 15 MCG/ KG/MIN 5.715 mls/hr IV . [id number] [facility] Rx#:[id number] Oral 1500 Tube Feeding 430 290 0 Other 60 120 Output: Urine 2115 975 1075 Other: Voiding Method Indwelling Catheter Indwelling Catheter Indwelling Catheter # Voids 1 # Bowel Movements 1 ABP, PAP, CO, CI - Last Documented Arterial Blood Pressure 99/57 - Exam GENERAL DESCRIPTION: Middle-age female lying in bed in no distress RESPIRATORY SYSTEM: Unlabored breathing , decreased breath sounds at bases HEART: S1 S2 regular rate and rhythm , ABDOMEN: Soft , no tenderness EXTREMITIES: No edema feet - Labs CBC & Chem 7: 02/17/25 04:13 02/17/25 04:13 Labs: Abnormal Lab Results - Last 24 Hours (Table) 02/16/25 02/17/25 02/17/25 Range/Units 20:19 00:15 04:13 WBC 10.89 H (4.50-10.00) 10*3/uL RBC 3.39 L (4.10-5.20) 10*6/uL Hgb 8.8 L (12.0-15.0) g/dL Hct 29.7 L (37.2-46.3) % MCH 26.0 L (27.0-32.0) pg MCHC 29.6 L (32.0-37.0) g/dL MPV 8.7 L (9.5-12.2) fL Immature Gran # 0.06 H (0.00-0.04) 10*3/uL Neutrophils # 9.63 H (1.80-7.70) 10*3/uL Lymphocytes # 0.57 L (0.90-5.00) 10*3/uL Eosinophils # 0.00 L (0.04-0.35) 10*3/uL Carbon Dioxide (22-30) mmol/L BUN (7-17) mg/dL Glucose (74-99) mg/dL POC Glucose (mg/dL) 140 H 178 H (70-110) mg/dL 02/17/25 02/17/25 02/17/25 Range/Units 04:13 06:17 12:28 WBC (4.50-10.00) 10*3/uL RBC (4.10-5.20) 10*6/uL Hgb (12.0-15.0) g/dL Hct (37.2-46.3) % MCH (27.0-32.0) pg MCHC (32.0-37.0) g/dL MPV (9.5-12.2) fL Immature Gran # (0.00-0.04) 10*3/uL Neutrophils # (1.80-7.70) 10*3/uL Lymphocytes # (0.90-5.00) 10*3/uL Eosinophils # (0.04-0.35) 10*3/uL Carbon Dioxide 32 H (22-30) mmol/L BUN 24 H (7-17) mg/dL Glucose 128 H (74-99) mg/dL POC Glucose (mg/dL) 118 H 222 H (70-110) mg/dL Microbiology - Last 24 Hours (Table) 02/14/25 13:32 Blood Culture Gram Stain - Final Blood Blood Culture - Final Staphylococcus simulans Dermabacter hominis Molecular ID 02/14/25 13:33 Gram Stain - Final Sputum Sputum Culture - Final Pseudomonas aeruginosa 02/15/25 18:31 Nasal Screen MRSA/MSSA - Final Nasopharyngeal Swab 02/15/25 23:49 Gram Stain - Preliminary Abdomen Wound Culture - Preliminary Assessment and Plan (1) Pneumonia Current Visit: No Status: Acute Code(s): J18.9 - PNEUMONIA, UNSPECIFIED ORGANISM SNOMED Code(s): 448489025 (2) Positive blood culture Current Visit: Yes Status: Acute Code(s): R78.81 - BACTEREMIA SNOMED Code(s): 367794321 Plan: 1patient presented to hospital with episode of unresponsiveness/seizure patient noted to be significantly hypoxic requiring intubation and this patient did have a chronic tracheostomy from a previous episode of following intubation and respiratory failure, possible component of pneumonia/UTI not entirely excluded 2-patient did have positive blood culture with Staphylococcus simulans question of skin contamination versus true pathogen blood culture has been repeated 3sputum is growing Pseudomonas which is resistant to the cefepime and Zosyn, however switched by therapy to meropenem 1 g every 8 hours Dictation was produced using [employer] dictation software. please excuse any grammatical, word or spelling errors. Time with Patient: Less than 30
--- NOTE | 2025-02-18 14:36 | P.PN ---
Subjective Progress Note Date: 02/18/25 Principal diagnosis: Reason for follow-up is pneumonia/positive blood culture Patient is a 54-year-old female with a past medical history significant for hypertension hyperlipidemia fibromyalgia chronic back pain in this patient who did have multiple surgeries to the thoracic spine admitted to the hospital concerning for pneumonia/sepsis. On today's evaluation that is 02/19/2024, patient did have a temperature of 98.4 F this morning and denies having any chills, patient is on trach collar and breathing comfortably seems to be upset about her pain medication and want to leave denies any nausea vomiting abdominal pain or diarrhea. No new lab has been obtained today Objective - Vital Signs Vital signs: Vital Signs Temp 98.4 F 02/18/25 03:13 Pulse 84 02/18/25 12:00 Resp 16 02/18/25 12:00 BP 95/57 02/18/25 12:00 Pulse Ox 98 02/18/25 12:00 FiO2 35 02/18/25 08:27 Intake & Output 02/17/25 02/18/25 02/18/25 18:59 06:59 18:59 Intake Total 1205 118 Output Total 1395 750 925 Balance -190 750 -807 Weight 59.8 kg 59.6 kg Intake: IV 530 Cefepime 2 gm In Sodium 100 Chloride 0.9% 100 ml @ 25 mls/hr IVPB Q8HR [facility] Rx# :[id number] KVO 180 Vancomycin 1,000 mg In 250 Sodium Chloride 0.9% 250 ml @ 125 mls/hr IVPB Q12H [facility] Rx#:[id number] Intake, IV Titration 675 Amount Lactated Ringers 1,000 ml 675 @ 75 mls/hr IV .[id number] [facility] Rx#:[id number] Oral 118 Tube Feeding 0 Output: Urine 1395 750 925 Other: Voiding Method Indwelling Catheter Indwelling Catheter Indwelling Catheter # Bowel Movements 1 ABP, PAP, CO, CI - Last Documented Arterial Blood Pressure 99/57 - Exam GENERAL DESCRIPTION: Middle-age female lying in bed in no distress RESPIRATORY SYSTEM: Unlabored breathing , decreased breath sounds at bases HEART: S1 S2 regular rate and rhythm , ABDOMEN: Soft , no tenderness EXTREMITIES: No edema feet - Labs CBC & Chem 7: 02/17/25 04:13 02/17/25 04:13 Labs: Microbiology - Last 24 Hours (Table) 02/15/25 23:49 Anaerobic Culture - Preliminary Catheter Site 02/16/25 14:06 Blood Culture - Preliminary Blood 02/15/25 23:49 Gram Stain - Final Abdomen Wound Culture - Final Erin albicans 02/14/25 13:32 Blood Culture Gram Stain - Final Blood Blood Culture - Final Staphylococcus simulans Dermabacter hominis Molecular ID Assessment and Plan (1) Pneumonia Current Visit: No Status: Acute Code(s): J18.9 - PNEUMONIA, UNSPECIFIED ORGANISM SNOMED Code(s): 453030002 (2) Positive blood culture Current Visit: Yes Status: Acute Code(s): R78.81 - BACTEREMIA SNOMED Code(s): 122235242 Plan: 1patient presented to hospital with episode of unresponsiveness/seizure patient noted to be significantly hypoxic requiring intubation and this patient did have a chronic tracheostomy from a previous episode of following intubation and respiratory failure, possible component of pneumonia/UTI not entirely excluded 2-patient did have positive blood culture with Staphylococcus simulans question of skin contamination versus true pathogen blood culture has been repeated which are negative so far 3sputum is growing Pseudomonas which is resistant to the cefepime and Zosyn, for which the patient is being treated with meropenem 1 g every 8 hours, with a blood culture repeat negative will discontinue vancomycin Dictation was produced using [employer] dictation software. please excuse any gr ammatical, word or spelling errors. Time with Patient: Less than 30
--- NOTE | 2025-02-19 12:01 | P.PN ---
Subjective Progress Note Date: 02/19/25 The patient is seen today February 19, 2025 in follow-up on the regular medical floor. She is currently sitting up in a chair at the bedside. Awake and alert in no acute distress. Maintaining good O2 saturations in the 90s on 28% trach collar. She has been afebrile. Hemodynamically stable. Follow-up blood cultures revealed no growth. Sputum sample was positive for Pseudomonas aeruginosa. No new labs today. She remains on DuoNeb and elations, Pulmicort and performance inhalations, Singulair. She is continued on antibiotics in the form of meropenem. Objective - Vital Signs Vital signs: Vital Signs Temp 98.5 F 02/19/25 08:46 Pulse 88 02/19/25 11:48 Resp 18 02/19/25 11:48 BP 130/81 02/19/25 11:48 Pulse Ox 92 L 02/19/25 11:48 FiO2 28 02/19/25 08:46 Intake & Output 02/18/25 02/19/25 02/19/25 18:59 06:59 18:59 Intake Total 458 40 118 Output Total 2675 Balance -2217 40 118 Weight 59.8 kg Intake: Oral 458 40 118 Output: Urine 2675 Other: Voiding Method Indwelling Catheter Toilet Toilet Bedside Commode Bedside Commode # Voids 2 # Bowel Movements 1 2 ABP, PAP, CO, CI - Last Documented Arterial Blood Pressure 99/57 - Exam GENERAL EXAM: Alert, 54-year-old female, on 28% FiO2 via trach collar, comfortable in no apparent distress. HEAD: Normocephalic. EYES: Normal reaction of pupils, equal size. NOSE: Clear with pink turbinates. THROAT: No erythema or exudates. NECK: No masses, no JVD. Tracheostomy tube secured in place CHEST: No chest wall deformity. LUNGS: Equal air entry with no crackles, wheeze, rhonchi or dullness. CVS: S1 and S2 normal with no audible murmur, regular rhythm. ABDOMEN: No hepatosplenomegaly, normal bowel sounds, no guarding or rigidity. SPINE: No scoliosis or deformity SKIN: No rashes CENTRAL NERVOUS SYSTEM: No focal deficits, tone is normal in all 4 extremities. EXTREMITIES: There is no peripheral edema. No clubbing, no cyanosis. Peripheral pulses are intact. - Labs CBC & Chem 7: 02/17/25 04:13 02/17/25 04:13 Labs: Microbiology - Last 24 Hours (Table) 02/16/25 14:06 Blood Culture - Preliminary Blood Assessment and Plan Assessment: Acute hypoxemic and hypercapnic respiratory failure secondary to sepsis with septic shock and acute metabolic encephalopathy requiring mechanical ventilatory support. Uncuffed trach changed out to a cuffed #4 Shiley History of prolonged respiratory failure requiring tracheostomy and PEG tube placement Multiple neck and spine surgeries including thoracolumbar wound dehiscence Advanced chronic obstructive pulmonary disease Hypertension Hyperlipidemia Coronary disease History of congestive heart failure History of seizure disorder Hypothyroidism History of anxiety/depression/PTSD Plan: The patient was seen and evaluated Medications reviewed Remained stable on 28% FiO2 via trach collar Continued on DuoNeb inhalations Continued on Pulmicort and Perforomist inhalations Continued on Singulair Antibiotics per ID service Currently on meropenem Case management working on discharge plan This patient was seen independently by the pulmonary nurse practitioner addressing pulmonary issues I have personally seen and examined the patient, performed the documentation and the assessment and plan as written. Number of minutes spent on the visit: 25 Dictation was produced using [employer] dictation software. Please excuse any grammatical, word or spelling errors.
--- NOTE | 2025-02-19 14:05 | P.PN ---
Subjective This is a pleasant 54 years old female with past medical history of multiple medical problems as below Patient was admitted on 02/14 for being unresponsive. Patient was hypotensive on admission 50/21 on admission and heart rate was 64. Patient found to have septic shock and she was admitted to the ICU requiring pressors, currently she is awake alert blood pressure is stable does not need any pressors. She required mechanical ventilation via tracheostomy. Currently she denies any breathing difficulty or chest pain. She still have a lot of secretions via her tracheostomy tube. Her tube feeding was held overnight, patient requested. Residual was checked was low. Currently patient feels improved, she is up in bed awake and alert tracheostomy in place. Abdomen soft denies any specific complaint. Also she is hemodynamically stable and afebrile. Labs from today showing WBC 10.8, hemoglobin 8.8. BMP is unremarkable and glucose controlled. Vancomycin trough is 20.5 02/18 She is moved of the ICU to select units yesterday She is walking in the room freely but she is connected through her tracheostomy tube to the oxygen on the wall. Currently requiring 8 units via nasal cannula Patient looks relaxed and smiling requesting to be discharged. Informed the patient she is not ready for discharge she is on IV antibiotics and IV steroids and IV fluids. She agrees to stay. No other new complaints Howell catheter in place 02/19 Patient up in chair Has not 6-7 bowel movements this morning no abdominal pain Patient feels fine Patient asked to be discharged, told the patient she is not ready She is still on 5 L oxygen via trach collar She is still on meropenem Ringer lactate 75 metoprolol and IV subdural 60 mg Plan of care discussed with the patient and she agrees Objective - Vital Signs Vital signs: Vital Signs Temp 98.5 F 02/19/25 08:46 Pulse 83 02/19/25 12:25 Resp 18 02/19/25 11:48 BP 130/81 02/19/25 11:48 Pulse Ox 92 L 02/19/25 11:48 FiO2 24 02/19/25 12:18 Intake & Output 02/18/25 02/19/25 02/19/25 18:59 06:59 18:59 Intake Total 458 40 236 Output Total 2675 Balance -2217 40 236 Weight 59.8 kg Intake: Oral 458 40 236 Output: Urine 2675 Other: Voiding Method Indwelling Catheter Toilet Bedside Commode Bedside Commode # Voids 2 3 # Bowel Movements 1 2 2 ABP, PAP, CO, CI - Last Documented Arterial Blood Pressure 99/57 - Exam GENERAL: The patient is alert and oriented x3, not in any acute distress. Well developed, well nourished. HEENT: Pupils are round and equally reacting to light. EOMI. No scleral icterus. No conjunctival pallor. Normocephalic, atraumatic. No pharyngeal erythema. No thyromegaly. CARDIOVASCULAR: S1 and S2 present. No murmurs, rubs, or gallops. -PULMONARY: Chest is clear to auscultation, no wheezing , no crackles. S/p tracheostomy -ABDOMEN: Soft, nontender, nondistended, normoactive bowel sounds. No palpable organomegaly. Status post PEG tube MUSCULOSKELETAL: No joint swelling or deformity. EXTREMITIES: No cyanosis, clubbing, or pedal edema. NEUROLOGICAL: Gross neurological examination did not reveal any focal deficits. SKIN: No rashes. no petechiae. - Labs CBC & Chem 7: 02/17/25 04:13 02/17/25 04:13 Labs: Microbiology - Last 24 Hours (Table) 02/16/25 14:06 Blood Culture - Preliminary Blood Assessment and Plan Assessment: Septic shock Acute hypoxic hypercapnic respiratory failure on mechanical ventilation Pneumonia Acute COPD exacerbation Dysphagia status post PEG Chronic respiratory failure status post tracheostomy Multiple neck and spine surgery with history of wound dehiscence Hypertension Hyperlipidemia CHF Seizure disorder Hypothyroidism Plan: Continue with antibiotics iv meropenem Infectious disease consult Continue with IV hydration Continue with steroids Pulmonary team consult labs and medication were reviewed.. Continue same treatment. Continue with symptomatic treatment. Resume home medication. Monitor labs and vitals. DVT a nd GI prophylaxis. Further recommendations as per clinical course of the patient DVT prophylaxis: Subcutaneous heparin GI Prophylaxis: Pe Protonix PT/OT: Pending Prognosis is guarded
--- NOTE | 2025-02-19 15:43 | P.PN ---
Subjective Progress Note Date: 02/19/25 Principal diagnosis: Reason for follow-up is pneumonia/positive blood culture Patient is a 54-year-old female with a past medical history significant for hypertension hyperlipidemia fibromyalgia chronic back pain in this patient who did have multiple surgeries to the thoracic spine admitted to the hospital concerning for pneumonia/sepsis. On today's evaluation that is 02/19/2025, Patient is afebrile patient is currently on 5 L trach collar and is breathing comfortably P denies having any chest pain or worsening cough no nausea vomiting no abdominal pain no diarrhea wants to go home. No new lab has been obtained today blood culture repeat has been negative Objective - Vital Signs Vital signs: Vital Signs Temp 98.5 F 02/19/25 08:46 Pulse 91 02/19/25 15:34 Resp 17 02/19/25 15:34 BP 124/71 02/19/25 15:34 Pulse Ox 93 L 02/19/25 15:34 FiO2 24 02/19/25 15:34 Intake & Output 02/18/25 02/19/25 02/19/25 18:59 06:59 18:59 Intake Total 458 40 236 Output Total 2675 Balance -2217 40 236 Weight 59.8 kg Intake: Oral 458 40 236 Output: Urine 2675 Other: Voiding Method Indwelling Catheter Toilet Bedside Commode Bedside Commode # Voids 2 3 # Bowel Movements 1 2 2 ABP, PAP, CO, CI - Last Documented Arterial Blood Pressure 99/57 - Exam GENERAL DESCRIPTION: Middle-age female lying in bed in no distress RESPIRATORY SYSTEM: Unlabored breathing , decreased breath sounds at bases HEART: S1 S2 regular rate and rhythm , ABDOMEN: Soft , no tenderness EXTREMITIES: No edema feet - Labs CBC & Chem 7: 02/17/25 04:13 02/17/25 04:13 Labs: Microbiology - Last 24 Hours (Table) 02/16/25 14:06 Blood Culture - Preliminary Blood Assessment and Plan (1) Pneumonia Current Visit: No Status: Acute Code(s): J18.9 - PNEUMONIA, UNSPECIFIED ORGANISM SNOMED Code(s): 386011434 (2) Positive blood culture Current Visit: Yes Status: Acute Code(s): R78.81 - BACTEREMIA SNOMED Code(s): 950561759 Plan: 1patient presented to hospital with episode of unresponsiveness/seizure patient noted to be significantly hypoxic requiring intubation and this patient did have a chronic tracheostomy from a previous episode of following intubation and respi ratory failure, possible component of pneumonia/UTI not entirely excluded 2-patient did have positive blood culture with Staphylococcus simulans question of skin contamination versus true pathogen blood culture has been repeated which are negative so far 3sputum is growing Pseudomonas which is resistant to the cefepime and Zosyn, patient is currently treated with meropenem 1 g every 8 hours, plan will be for total of 7-day course of therapy cannot use oral Cipro because of drug interaction with multiple of her other medication Dictation was produced using [employer] software. please excuse any grammatical, word or spelling errors. Time with Patient: Less than 30
[2025-02-19] MEDS: Acetaminophen-Codeine 300-30mg TAB PEG/G-TUBE PRN (17:31)
[2025-02-20 05:06] LABS: Basophils # (A) 0.02 10*3/uL (0.00-0.10); Basophils % (A) 0.2 %; Eosinophils # (A) 0.02 10*3/uL (0.04-0.35); Eosinophils % (A) 0.2 %; HCT 35.7 % (37.2-46.3); HGB 10.7 g/dL (12.0-15.0); Lymphocytes # (A) 1.12 10*3/uL (0.90-5.00); Lymphocytes % (A) 9.3 %; MCH 26.2 pg (27.0-32.0); MCV 87.3 fL (80.0-97.0); Mean Platelet Volume 8.4 fL (9.5-12.2); Monocytes # (A) 0.52 10*3/uL (0.20-1.00); Monocytes % (A) 4.3 %; Neutrophils # (A) 10.23 10*3/uL (1.80-7.70); Neutrophils % (A) 85.3 %; Platelet Count 332 10*3/uL (140-440); RBC 4.09 10*6/uL (4.10-5.20); RDW 16.3 % (11.5-14.5); WBC 11.99 10*3/uL (4.50-10.00)
[2025-02-20 05:50] LABS: African American GFR (CKD) >90 (>60 ml/min/1.73 sqM); Anion Gap 2 mmol/L; Blood Urea Nitrogen 22 mg/dL (7-17); Calcium 8.6 mg/dL (8.4-10.2); Carbon Dioxide 34 mmol/L (22-30); Chloride 101 mmol/L (98-107); Glucose 131 mg/dL (74-99); Magnesium 1.7 mg/dL (1.6-2.3); Non-African American GFR(CKD) 87 (>60 ml/min/1.73 sqM); Potassium 3.9 mmol/L (3.5-5.1); Sodium 137 mmol/L (137-145)
--- NOTE | 2025-02-20 16:56 | P.PN ---
Subjective Progress Note Date: 02/20/25 The patient is seen today February 19, 2025 in follow-up on the regular medical floor. She is currently sitting up in a chair at the bedside. Awake and alert in no acute distress. Maintaining good O2 saturations in the 90s on 28% trach collar. She has been afebrile. Hemodynamically stable. Follow-up blood cultures revealed no growth. Sputum sample was positive for Pseudomonas aeruginosa. No new labs today. She remains on DuoNeb and elations, Pulmicort and performance inhalations, Singulair. She is continued on antibiotics in the form of meropenem. The patient is seen today February 20, 2025 in follow-up on the regular medical floor. She is awake and alert in no acute distress. Sitting up in bed. Maintaining O2 saturations in the 90s on 28% FiO2 via trach collar. She has been afebrile. Hemodynamically stable. White count 11.9. Hemoglobin 10.7. Platelets 332. Sodium 137. Potassium 3.9. Bicarb 34. BUN 22. Creatinine 0.79. Glucose 131. She remains on DuoNeb inhalations, Pulmicort and Perforomist inhalations, Singulair, Solu-Medrol. She is continued on antibiotics in the form of meropenem. Objective - Vital Signs Vital signs: Vital Signs Temp 98.1 F 02/20/25 09:02 Pulse 96 02/20/25 16:00 Resp 16 02/20/25 16:00 BP 138/85 02/20/25 16:00 Pulse Ox 93 L 02/20/25 16:00 FiO2 21 02/20/25 08:27 Intake & Output 02/19/25 02/20/25 02/20/25 18:59 06:59 18:59 Intake Total 236 280 Balance 236 280 Weight 59.7 kg 59.7 kg Intake: Oral 236 280 Other: Voiding Method Bedside Commode Bedside Commode Bedside Commode # Voids 3 1 1 # Bowel Movements 2 3 ABP, PAP, CO, CI - Last Documented Arterial Blood Pressure 99/57 - Exam GENERAL EXAM: Alert, 54-year-old female, sitting up in bed, on 28% FiO2 via trach collar, in no apparent distress. HEAD: Normocephalic. EYES: Normal reaction of pupils, equal size. NOSE: Clear with pink turbinates. THROAT: No erythema or exudates. NECK: No masses, no JVD. Tracheostomy tube secured in place CHEST: No chest wall deformity. LUNGS: Equal air entry with no crackles, wheeze, rhonchi or dullness. CVS: S1 and S2 normal with no audible murmur, regular rhythm. ABDOMEN: No hepatosplenomegaly, normal bowel sounds, no guarding or rigidity. SPINE: No scoliosis or deformity SKIN: No rashes CENTRAL NERVOUS SYSTEM: No focal deficits, tone is normal in all 4 extremities. EXTREMITIES: There is no peripheral edema. No clubbing, no cyanosis. Peripheral pulses are intact. - Labs CBC & Chem 7: 02/20/25 04:49 02/20/25 04:49 Labs: Abnormal Lab Results - Last 24 Hours (Table) 02/20/25 02/20/25 Range/Units 04:49 04:49 WBC 11.99 H (4.50-10.00) 10*3/uL RBC 4.09 L (4.10-5.20) 10*6/uL Hgb 10.7 L (12.0-15.0) g/dL Hct 35.7 L (37.2-46.3) % MCH 26.2 L (27.0-32.0) pg MCHC 30.0 L (32.0-37.0) g/dL MPV 8.4 L (9.5-12.2) fL Immature Gran # 0.08 H (0.00-0.04) 10*3/uL Neutrophils # 10.23 H (1.80-7.70) 10*3/uL Eosinophils # 0.02 L (0.04-0.35) 10*3/uL Carbon Dioxide 34 H (22-30) mmol/L BUN 22 H (7-17) mg/dL Glucose 131 H (74-99) mg/dL Microbiology - Last 24 Hours (Table) 02/16/25 14:06 Blood Culture - Preliminary Blood 02/15/25 23:49 Anaerobic Culture - Final Catheter Site Assessment and Plan Assessment: Acute hypoxemic and hypercapnic respiratory failure secondary to sepsis with septic shock and acute metabolic encephalopathy requiring mechanical ventilatory support. Uncuffed trach changed out to a cuffed #4 Shiley. Currently on trach collar at 28% FiO2 History of prolonged respiratory failure requiring tracheostomy and PEG tube placement Multiple neck and spine surgeries including thoracolumbar wound dehiscence Advanced chronic obstructive pulmonary disease Hypertension Hyperlipidemia Coronary disease History of congestive heart failure History of seizure disorder Hypothyroidism History of anxiety/depression/PTSD Plan: The patient was seen and evaluated Medications, microbiology and labs reviewed Remained stable on 28% FiO2 via trach collar Continued on DuoNeb inhalations Continued on Pulmicort and Perforomist inhalations Discontinue Solu-Medrol Initiated prednisone taper Continued on Singulair Currently on meropenem for a total 7-day course Midline placed Case management working on ECF placement I have personally seen and examined the patient, performed the documentation and the assessment and plan as written. Number of minutes spent on the visit: 10 Dictation was produced using [employer] dictation software. Please excuse any grammatical, word or spelling errors.
[2025-02-20] MEDS: MEROPENEM 1 GM in SODIUM CHLORIDE 0.9% 100 ML IVPB SCH (18:35)
--- NOTE | 2025-02-21 05:15 | P.PN ---
Subjective Progress Note Date: 02/20/25 This is a pleasant 54 years old female with past medical history of multiple medical problems as below Patient was admitted on 02/14 for being unresponsive. Patient was hypotensive on admission 50/21 on admission and heart rate was 64. Patient found to have septic shock and she was admitted to the ICU requiring pressors, currently she is awake alert blood pressure is stable does not need any pressors. She required mechanical ventilation via tracheostomy. Currently she denies any breathing difficulty or chest pain. She still have a lot of secretions via her tracheostomy tube. Her tube feeding was held overnight, patient requested. Residual was checked was low. Currently patient feels improved, she is up in bed awake and alert tracheostomy in place. Abdomen soft denies any specific complaint. Also she is hemodynamically stable and afebrile. Labs from today showing WBC 10.8, hemoglobin 8.8. BMP is unremarkable and glucose controlled. Vancomycin trough is 20.5 02/18 She is moved of the ICU to select units yesterday She is walking in the room freely but she is connected through her tracheostomy tube to the oxygen on the wall. Currently requiring 8 units via nasal cannula Patient looks relaxed and smiling requesting to be discharged. Informed the patient she is not ready for discharge she is on IV antibiotics and IV steroids and IV fluids. She agrees to stay. No other new complaints Howell catheter in place 02/19 Patient up in chair Has not 6-7 bowel movements this morning no abdominal pain Patient feels fine Patient asked to be discharged, told the patient she is not ready She is still on 5 L oxygen via trach collar She is still on meropenem Ringer lactate 75 metoprolol and IV subdural 60 mg Plan of care discussed with the patient and she agrees 02/20/2025 Patient is seen in follow-up currently sitting up in bed reports she just received her midline and would like to discharge home. Patient does have a guardian who would like her to go to [facility] for continued IV antibiotic therapy. Case management is following make arrangements and [facility]. Patient continues on trach collar at 5 L and tolerating well. Patient reports is tolerating diet with no reported nausea or vomiting.. Will discuss further with other consultations regarding discharge planning. Patient will also require insurance Auth for case management. Review of systems: Constitutional: No reports of fatigue, fever, or chills Cardiovascular: No reports of chest pain or palpitations Respiratory: No reports of shortness of breath or cough GI: No reports of nausea, vomiting, reporting some loose stool but improving : No reports of dysuria or retention Neurovascular: No reports of weakness or numbness All medications have been reviewed Physical exam: GENERAL: The patient is alert and oriented x3, not in any acute distress. Well developed, well nourished. Thin built HEENT: Pupils are round and equally reacting to light. EOMI. No scleral icterus. No conjunctival pallor. Normocephalic, atraumatic. No pharyngeal erythema. No thyromegaly. CARDIOVASCULAR: S1 and S2 muffled PULMONARY: Chest is clear to auscultation, no wheezing , no crackles. tracheostomy noted ABDOMEN: Soft, nontender, nondistended, normoactive bowel sounds. No palpable organomegaly. Patient has a PEG tube MUSCULOSKELETAL: No joint swelling or deformity. EXTREMITIES: No cyanosis, clubbing, or pedal edema. NEUROLOGICAL: Gross neurological examination did not reveal any focal deficits. Diffusely weak SKIN: No rashes. no petechiae. Assessment: Septic shock Acute hypoxic hypercapnic respiratory failure on mechanical ventilation Pneumonia Acute COPD exacerbation Dysphagia status post PEG Chronic respiratory failure status post tracheostomy Multiple neck and spine surgery with history of wound dehiscence Hypertension Hyperlipidemia CHF history Seizure disorder Hypothyroidism GI prophylaxis DVT prophylaxis Full code Plan: Continue with antibiotics iv meropenem Infectious disease following and patient is to receive a midline as patient will require IV antibiotics on discharge Patient would like to go home although patient has a guardian and patient will be going to [facility] on discharge for continued IV antibiotic therapy. Case management following making arrangements and placing referrals. Patient will also require insurance authorization for discharge Continue to encourage increase activity as tolerated Recommend continued aspiration precautions at all times Due to multiple complex medical issues, overall prognosis is guarded The impression and plan of care has been dictated by Kristina Wells, Nurse Practitioner as directed. Dr. Dick MD I have performed a history and examination and MDM of this patient, discussed the same with the dictator, and agree with the dictator's assessment and plan as written ,documented as a scribe. Based on total visit time, I have performed more than 50% of the visit. Objective - Vital Signs Vital signs: Vital Signs Temp 98.1 F 02/21/25 03:52 Pulse 86 02/21/25 03:52 Resp 15 02/21/25 03:52 BP 110/63 02/21/25 03:52 Pulse Ox 91 L 02/21/25 03:52 FiO2 21 02/20/25 08:27 Intake & Output 02/20/25 02/20/25 02/21/25 06:59 18:59 06:59 Intake Total 280 Balance 280 Weight 59.7 kg 59.7 kg 59.6 kg Intake: Oral 280 Other: Voiding Method Bedside Commode Bedside Commode Bedside Commode # Voids 1 1 2 # Bowel Movements 3 ABP, PAP, CO, CI - Last Documented Arterial Blood Pressure 99/57 - Labs CBC & Chem 7: 02/20/25 04:49 02/20/25 04:49 Labs: Abnormal Lab Results - Last 24 Hours (Table) 02/20/25 Range/Units 04:49 Carbon Dioxide 34 H (22-30) mmol/L BUN 22 H (7-17) mg/dL Glucose 131 H (74-99) mg/dL
[2025-02-21 07:22] LABS: Basophils # (A) 0.03 10*3/uL (0.00-0.10); Basophils % (A) 0.2 %; Eosinophils # (A) 0.29 10*3/uL (0.04-0.35); Eosinophils % (A) 2.4 %; HCT 36.5 % (37.2-46.3); HGB 11.1 g/dL (12.0-15.0); Lymphocytes # (A) 2.98 10*3/uL (0.90-5.00); Lymphocytes % (A) 24.3 %; MCH 26.2 pg (27.0-32.0); MCHC 30.4 g/dL (32.0-37.0); MCV 86.1 fL (80.0-97.0); Mean Platelet Volume 8.6 fL (9.5-12.2); Monocytes # (A) 1.11 10*3/uL (0.20-1.00); Monocytes % (A) 9.1 %; Neutrophils # (A) 7.78 10*3/uL (1.80-7.70); Neutrophils % (A) 63.4 %; Platelet Count 321 10*3/uL (140-440); RBC 4.24 10*6/uL (4.10-5.20); RDW 16.9 % (11.5-14.5); WBC 12.26 10*3/uL (4.50-10.00)
[2025-02-21 07:33] LABS: African American GFR (CKD) >90 (>60 ml/min/1.73 sqM); Anion Gap 2 mmol/L; Blood Urea Nitrogen 22 mg/dL (7-17); Calcium 8.4 mg/dL (8.4-10.2); Carbon Dioxide 33 mmol/L (22-30); Chloride 101 mmol/L (98-107); Glucose 95 mg/dL (74-99); Non-African American GFR(CKD) >90 (>60 ml/min/1.73 sqM); Potassium 3.5 mmol/L (3.5-5.1); Sodium 136 mmol/L (137-145)
[2025-02-21] MEDS: predniSONE 10 MG TAB PO SCH (08:26)
--- NOTE | 2025-02-21 14:04 | P.PN ---
Subjective Progress Note Date: 02/21/25 The patient is seen today February 19, 2025 in follow-up on the regular medical floor. She is currently sitting up in a chair at the bedside. Awake and alert in no acute distress. Maintaining good O2 saturations in the 90s on 28% trach collar. She has been afebrile. Hemodynamically stable. Follow-up blood cultures revealed no growth. Sputum sample was positive for Pseudomonas aeruginosa. No new labs today. She remains on DuoNeb and elations, Pulmicort and performance inhalations, Singulair. She is continued on antibiotics in the form of meropenem. The patient is seen today February 20, 2025 in follow-up on the regular medical floor. She is awake and alert in no acute distress. Sitting up in bed. Maintaining O2 saturations in the 90s on 28% FiO2 via trach collar. She has been afebrile. Hemodynamically stable. White count 11.9. Hemoglobin 10.7. Platelets 332. Sodium 137. Potassium 3.9. Bicarb 34. BUN 22. Creatinine 0.79. Glucose 131. She remains on DuoNeb inhalations, Pulmicort and Perforomist inhalations, Singulair, Solu-Medrol. She is continued on antibiotics in the form of meropenem. The patient is seen today February 21, 2025 in follow-up on the regular medical floor. She is sitting up in a chair at the bedside. Awake and alert in no acute distress. Maintaining O2 saturations in the 90s on room air oxygen. Speaking valve in place. White count 12.2. Hemoglobin 11.1. Platelets 321. Sodium 136. Potassium 3.5. Bicarb 33. BUN 22. Creatinine 0.69. Glucose 95. She remains on bronchodilators and steroids. NicoDerm patch in place. Continued on meropenem. She is anxious to be discharged. Objective - Vital Signs Vital signs: Vital Signs Temp 98.6 F 02/21/25 12:00 Pulse 88 02/21/25 12:54 Resp 16 02/21/25 12:00 BP 116/82 02/21/25 12:00 Pulse Ox 90 L 02/21/25 12:00 FiO2 21 02/20/25 08:27 Intake & Output 02/20/25 02/21/25 02/21/25 18:59 06:59 18:59 Intake Total 480 Balance 480 Weight 59.7 kg 59.6 kg Intake: Oral 480 Other: Voiding Method Bedside Commode Bedside Commode Bedside Commode # Voids 1 2 # Bowel Movements 3 ABP, PAP, CO, CI - Last Documented Arterial Blood Pressure 99/57 - Exam GENERAL EXAM: Alert, pleasant 54-year-old female, sitting up in a chair, on room air oxygen, in no apparent distress. HEAD: Normocephalic. EYES: Normal reaction of pupils, equal size. NOSE: Clear with pink turbinates. THROAT: No erythema or exudates. NECK: No masses, no JVD. Tracheostomy tube secured in place with speaking valve. CHEST: No chest wall deformity. LUNGS: Equal air entry with no crackles, wheeze, rhonchi or dullness. CVS: S1 and S2 normal with no audible murmur, regular rhythm. ABDOMEN: No hepatosplenomegaly, normal bowel sounds, no guarding or rigidity. SPINE: No scoliosis or deformity SKIN: No rashes CENTRAL NERVOUS SYSTEM: No focal deficits, tone is normal in all 4 extremities. EXTREMITIES: There is no peripheral edema. No clubbing, no cyanosis. Peripheral pulses are intact. - Labs CBC & Chem 7: 02/21/25 06:54 02/21/25 06:54 Labs: Abnormal Lab Results - Last 24 Hours (Table) 02/21/25 02/21/25 Range/Units 06:54 06:54 WBC 12.26 H (4.50-10.00) 10*3/uL Hgb 11.1 L (12.0-15.0) g/dL Hct 36.5 L (37.2-46.3) % MCH 26.2 L (27.0-32.0) pg MCHC 30.4 L (32.0-37.0) g/dL MPV 8.6 L (9.5-12.2) fL Immature Gran # 0.07 H (0.00-0.04) 10*3/uL Neutrophils # 7.78 H (1.80-7.70) 10*3/uL Monocytes # 1.11 H (0.20-1.00) 10*3/uL Sodium 136 L (137-145) mmol/L Carbon Dioxide 33 H (22-30) mmol/L BUN 22 H (7-17) mg/dL Assessment and Plan Assessment: Acute hypoxemic and hypercapnic respiratory failure secondary to sepsis with septic shock and acute metabolic encephalopathy requiring mechanical ventilatory support. Uncuffed trach changed out to a cuffed #4 Shiley with speaking valve. Currently on room air oxygen History of prolonged respiratory failure requiring tracheostomy and PEG tube pl acement Multiple neck and spine surgeries including thoracolumbar wound dehiscence Advanced chronic obstructive pulmonary disease Hypertension Hyperlipidemia Coronary disease History of congestive heart failure History of seizure disorder Hypothyroidism History of anxiety/depression/PTSD Plan: The patient was seen and evaluated Medications and labs reviewed Remained stable on room air oxygen Continued on DuoNeb inhalations Continued on Pulmicort and Perforomist inhalations Continued on prednisone taper Continued on Singulair Continued on meropenem for a total 7-day course Midline placed Cleared for discharge Plan is for [facility] pending authorization I have personally seen and examined the patient, performed the documentation and the assessment and plan as written. Number of minutes spent on the visit: 10 Dictation was produced using [employer] dictation software. Please excuse any grammatical, word or spelling errors.
--- NOTE | 2025-02-21 16:39 | P.PN ---
Subjective Progress Note Date: 02/20/25 Principal diagnosis: Reason for follow-up is pneumonia/positive blood culture Patient is a 54-year-old female with a past medical history significant for hypertension hyperlipidemia fibromyalgia chronic back pain in this patient who did have multiple surgeries to the thoracic spine admitted to the hospital concerning for pneumonia/sepsis. On today's evaluation that is 02/20/2025, patient has been afebrile, patient is breathing comfortably and is currently on room air, patient denies having any chest pain and cough has decreased in intensity, patient denies nausea vomiting or diarrhea and no abdominal pain. Patient did have a white count of 11.99, creatinine 0.79 Objective - Vital Signs Vital signs: Vital Signs Temp 98.1 F 02/20/25 09:02 Pulse 104 H 02/20/25 09:02 Resp 16 02/20/25 09:02 BP 154/78 02/20/25 09:02 Pulse Ox 93 L 02/20/25 09:02 FiO2 21 02/20/25 08:27 Intake & Output 02/19/25 02/20/25 02/20/25 18:59 06:59 18:59 Intake Total 236 280 Balance 236 280 Weight 59.7 kg Intake: Oral 236 280 Other: Voiding Method Bedside Commode Bedside Commode Bedside Commode # Voids 3 1 1 # Bowel Movements 2 ABP, PAP, CO, CI - Last Documented Arterial Blood Pressure 99/57 - Exam GENERAL DESCRIPTION: Middle-age female lying in bed in no distress RESPIRATORY SYSTEM: Unlabored breathing , decreased breath sounds at bases HEART: S1 S2 regular rate and rhythm , ABDOMEN: Soft , no tenderness EXTREMITIES: No edema feet - Labs CBC & Chem 7: 02/21/25 06:54 02/21/25 06:54 Labs: Abnormal Lab Results - Last 24 Hours (Table) 02/20/25 02/20/25 Range/Units 04:49 04:49 WBC 11.99 H (4.50-10.00) 10*3/uL RBC 4.09 L (4.10-5.20) 10*6/uL Hgb 10.7 L (12.0-15.0) g/dL Hct 35.7 L (37.2-46.3) % MCH 26.2 L (27.0-32.0) pg MCHC 30.0 L (32.0-37.0) g/dL MPV 8.4 L (9.5-12.2) fL Immature Gran # 0.08 H (0.00-0.04) 10*3/uL Neutrophils # 10.23 H (1.80-7.70) 10*3/uL Eosinophils # 0.02 L (0.04-0.35) 10*3/uL Carbon Dioxide 34 H (22-30) mmol/L BUN 22 H (7-17) mg/dL Glucose 131 H (74-99) mg/dL Microbiology - Last 24 Hours (Table) 02/16/25 14:06 Blood Culture - Preliminary Blood 02/15/25 23:49 Anaerobic Culture - Final Catheter Site Assessment and Plan (1) Pneumonia Current Visit: No Status: Acute Code(s): J18.9 - PNEUMONIA, UNSPECIFIED ORGANISM SNOMED Code(s): 667192717 (2) Positive blood culture Current Visit: Yes Status: Acute Code(s): R78.81 - BACTEREMIA SNOMED Code (s): 256283122 Plan: 1patient presented to hospital with episode of unresponsiveness/seizure patient noted to be significantly hypoxic requiring intubation and this patient did have a chronic tracheostomy from a previous episode of following intubation and respiratory failure, possible component of pneumonia/UTI not entirely excluded 2-patient did have positive blood culture with Staphylococcus simulans question of skin contamination versus true pathogen blood culture has been repeated which are negative so far 3sputum is growing Pseudomonas which is resistant to the cefepime and Zosyn, patient is currently treated with meropenem 1 g every 8 hours, to finish a 7- day course of therapy total Dictation was produced using [email or web address] dictation software. please excuse any grammatical, word or spelling errors. Time with Patient: Less than 30
--- NOTE | 2025-02-21 16:40 | P.PN ---
Subjective Progress Note Date: 02/21/25 Principal diagnosis: Reason for follow-up is pneumonia/positive blood culture Patient is a 54-year-old female with a past medical history significant for hypertension hyperlipidemia fibromyalgia chronic back pain in this patient who did have multiple surgeries to the thoracic spine admitted to the hospital concerning for pneumonia/sepsis. On today's evaluation that is 02/21/2025, Patient is afebrile this morning patient denies having any chest pain shortness of breath or any worsening cough, the patient is currently on room air, patient denies any abdominal pain no diarrhea no nausea no vomiting. Patient white count is 12.26, creatinine 0.69 Objective - Vital Signs Vital signs: Vital Signs Temp 98.6 F 02/21/25 12:00 Pulse 88 02/21/25 12:54 Resp 16 02/21/25 12:00 BP 116/82 02/21/25 12:00 Pulse Ox 90 L 02/21/25 12:00 FiO2 21 02/20/25 08:27 Intake & Output 02/20/25 02/21/25 02/21/25 18:59 06:59 18:59 Intake Total 480 Balance 480 Weight 59.7 kg 59.6 kg Intake: Oral 480 Other: Voiding Method Bedside Commode Bedside Commode Bedside Commode # Voids 1 2 # Bowel Movements 3 ABP, PAP, CO, CI - Last Documented Arterial Blood Pressure 99/57 - Exam GENERAL DESCRIPTION: Middle-age female lying in bed in no distress RESPIRATORY SYSTEM: Unlabored breathing , decreased breath sounds at bases HEART: S1 S2 regular rate and rhythm , ABDOMEN: Soft , no tenderness EXTREMITIES: No edema feet - Labs CBC & Chem 7: 02/21/25 06:54 02/21/25 06:54 Labs: Abnormal Lab Results - Last 24 Hours (Table) 02/21/25 02/21/25 Range/Units 06:54 06:54 WBC 12.26 H (4.50-10.00) 10*3/uL Hgb 11.1 L (12.0-15.0) g/dL Hct 36.5 L (37.2-46.3) % MCH 26.2 L (27.0-32.0) pg MCHC 30.4 L (32.0-37.0) g/dL MPV 8.6 L (9.5-12.2) fL Immature Gran # 0.07 H (0.00-0.04) 10*3/uL Neutrophils # 7.78 H (1.80-7.70) 10*3/uL Monocytes # 1.11 H (0.20-1.00) 10*3/uL Sodium 136 L (137-145) mmol/L Carbon Dioxide 33 H (22-30) mmol/L BUN 22 H (7-17) mg/dL Assessment and Plan (1) Pneumonia Current Visit: No Status: Acute Code(s): J18.9 - PNEUMONIA, UNSPECIFIED ORGANISM SNOMED Code(s): 574303352 (2) Positive blood culture Current Visit: Yes Status: Acute Code(s): R78.81 - BACTEREMIA SNOMED Code(s): 004080722 Plan: 1patient presented to hospital with episode of unresponsiveness/seizure patient noted to be significantly hypoxic requiring intubation and this patient did have a chronic tracheostomy from a previous episode of following intubation and respiratory failure, possible component of pneumonia/UTI not entirely excluded 2-patient did have positive blood culture with Staphylococcus simulans question of skin contamination versus true pathogen blood culture has been repeated which are negative so far 3sputum is growing Pseudomonas which is resistant to the cefepime and Zosyn, patient is currently treated with meropenem 1 g every 8 hours plan is for a total 7-day course of therapy currently waiting for placement Dictation was produced using [employer] dictation software. please excuse any grammatical, word or spelling errors. Time with Patient: Less than 30
--- NOTE | 2025-02-22 05:31 | P.PN ---
Subjective Progress Note Date: 02/21/25 This is a pleasant 54 years old female with past medical history of multiple medical problems as below Patient was admitted on 02/14 for being unresponsive. Patient was hypotensive on admission 50/21 on admission and heart rate was 64. Patient found to have septic shock and she was admitted to the ICU requiring pressors, currently she is awake alert blood pressure is stable does not need any pressors. She required mechanical ventilation via tracheostomy. Currently she denies any breathing difficulty or chest pain. She still have a lot of secretions via her tracheostomy tube. Her tube feeding was held overnight, patient requested. Residual was checked was low. Currently patient feels improved, she is up in bed awake and alert tracheostomy in place. Abdomen soft denies any specific complaint. Also she is hemodynamically stable and afebrile. Labs from today showing WBC 10.8, hemoglobin 8.8. BMP is unremarkable and glucose controlled. Vancomycin trough is 20.5 02/18 She is moved of the ICU to select units yesterday She is walking in the room freely but she is connected through her tracheostomy tube to the oxygen on the wall. Currently requiring 8 units via nasal cannula Patient looks relaxed and smiling requesting to be discharged. Informed the patient she is not ready for discharge she is on IV antibiotics and IV steroids and IV fluids. She agrees to stay. No other new complaints Howell catheter in place 02/19 Patient up in chair Has not 6-7 bowel movements this morning no abdominal pain Patient feels fine Patient asked to be discharged, told the patient she is not ready She is still on 5 L oxygen via trach collar She is still on meropenem Ringer lactate 75 metoprolol and IV subdural 60 mg Plan of care discussed with the patient and she agrees 02/20/2025 Patient is seen in follow-up currently sitting up in bed reports she just received her midline and would like to discharge home. Patient does have a guardian who would like her to go to [facility] for continued IV antibiotic therapy. Case management is following make arrangements and [facility]. Patient continues on trach collar at 5 L and tolerating well. Patient reports is tolerating diet with no reported nausea or vomiting.. Will discuss further with other consultations regarding discharge planning. Patient will also require insurance Auth for case management. 02/21/2025 Patient seen in follow-up sitting up in the chair with significant other at the bedside. Patient will require IV antibiotics on discharge for 1 week per infectious disease and case management following submitting referrals to ECF's and awaiting insurance authorization. Angely Hubertus is reviewing at this time. Patient is afebrile denies any worsening shortness of breath and tolerating current regimen. Patient was adamant about going home although his legal guardian and given patient needs IV antibiotics on discharge, patient will go to ECF for continued IV antibiotic therapy. Review of systems: Constitutional: No reports of fatigue, fever, or chills Cardiovascular: No reports of chest pain or palpitations Respiratory: No reports of shortness of breath or cough GI: No reports of nausea, vomiting, reporting some loose stool but improving : No reports of dysuria or retention Neurovascular: No reports of weakness or numbness All medications have been reviewed Physical exam: GENERAL: The patient is alert and oriented x3, not in any acute distress. Well developed, well nourished. Thin built HEENT: Pupils are round and equally reacting to light. EOMI. No scleral icterus. No conjunctival pallor. Normocephalic, atraumatic. No pharyngeal erythema. No thyromegaly. CARDIOVASCULAR: S1 and S2 muffled PULMONARY: Chest is clear to auscultation, no wheezing , no crackles. tracheostomy noted ABDOMEN: Soft, nontender, nondistended, normoactive bowel sounds. No palpable o rganomegaly. Patient has a PEG tube MUSCULOSKELETAL: No joint swelling or deformity. EXTREMITIES: No cyanosis, clubbing, or pedal edema. NEUROLOGICAL: Gross neurological examination did not reveal any focal deficits. Diffusely weak SKIN: No rashes. no petechiae. Assessment: Septic shock Acute hypoxic hypercapnic respiratory failure on mechanical ventilation Pneumonia Acute COPD exacerbation Dysphagia status post PEG Chronic respiratory failure status post tracheostomy Multiple neck and spine surgery with history of wound dehiscence Hypertension Hyperlipidemia CHF history Seizure disorder Hypothyroidism GI prophylaxis DVT prophylaxis Full code Plan: Infectious disease following and patient is to continue on IV antibiotics in the form of meropenem for 1 week at discharge. Patient has received a midlinee a midline as patient will require IV antibiotics on discharge Patient would like to go home although patient has a guardian and patient will be going to ECF on discharge for continued IV antibiotic therapy. Case management following making arrangements and placing referrals. Angely Sabrina is reviewing. Patient will also require insurance authorization for discharge Continue to encourage increase activity as tolerated Recommend continued aspiration precautions at all times We will follow-up on repeat labs in the a.m. continue to monitor kidney functions and electrolytes. Recommend to replace electrolytes per protocol Due to multiple complex medical issues, overall prognosis is guarded The impression and plan of care has been dictated by Kristina Wells, Nurse Practitioner as directed. Dr. Dick MD I have performed a history and examination and MDM of this patient, discussed the same with the dictator, and agree with the dictator's assessment and plan as written ,documented as a scribe. Based on total visit time, I have performed more than 50% of the visit. Objective - Vital Signs Vital signs: Vital Signs Temp 98.0 F 02/22/25 00:00 Pulse 85 02/22/25 02:45 Resp 16 02/22/25 00:00 BP 120/68 02/22/25 04:21 Pulse Ox 93 L 02/22/25 02:45 FiO2 21 02/20/25 08:27 Intake & Output 02/21/25 02/21/25 02/22/25 06:59 18:59 06:59 Intake Total 480 Balance 480 Weight 59.6 kg Intake: Oral 480 Other: Voiding Method Bedside Commode Bedside Commode Bedside Commode # Voids 2 2 ABP, PAP, CO, CI - Last Documented Arterial Blood Pressure 99/57 - Labs CBC & Chem 7: 02/21/25 06:54 02/21/25 06:54 Labs: Abnormal Lab Results - Last 24 Hours (Table) 02/21/25 02/21/25 Range/Units 06:54 06:54 WBC 12.26 H (4.50-10.00) 10*3/uL Hgb 11.1 L (12.0-15.0) g/dL Hct 36.5 L (37.2-46.3) % MCH 26.2 L (27.0-32.0) pg MCHC 30.4 L (32.0-37.0) g/dL MPV 8.6 L (9.5-12.2) fL Immature Gran # 0.07 H (0.00-0.04) 10*3/uL Neutrophils # 7.78 H (1.80-7.70) 10*3/uL Monocytes # 1.11 H (0.20-1.00) 10*3/uL Sodium 136 L (137-145) mmol/L Carbon Dioxide 33 H (22-30) mmol/L BUN 22 H (7-17) mg/dL Microbiology - Last 24 Hours (Table) 02/16/25 14:06 Blood Culture - Final Blood
[2025-02-22 07:12] LABS: Basophils # (A) 0.03 10*3/uL (0.00-0.10); Basophils % (A) 0.3 %; Eosinophils % (A) 1.9 %; HGB 10.1 g/dL (12.0-15.0); Lymphocytes # (A) 2.63 10*3/uL (0.90-5.00); MCH 25.4 pg (27.0-32.0); MCHC 29.7 g/dL (32.0-37.0); MCV 85.4 fL (80.0-97.0); Mean Platelet Volume 8.9 fL (9.5-12.2); Monocytes # (A) 1.03 10*3/uL (0.20-1.00); Monocytes % (A) 9.8 %; Neutrophils % (A) 62.5 %; Platelet Count 306 10*3/uL (140-440); RBC 3.98 10*6/uL (4.10-5.20); RDW 16.8 % (11.5-14.5); WBC 10.54 10*3/uL (4.50-10.00)
[2025-02-22 07:26] LABS: African American GFR (CKD) >90 (>60 ml/min/1.73 sqM); Anion Gap 3 mmol/L; Blood Urea Nitrogen 18 mg/dL (7-17); Calcium 8.4 mg/dL (8.4-10.2); Carbon Dioxide 35 mmol/L (22-30); Chloride 99 mmol/L (98-107); Glucose 112 mg/dL (74-99); Magnesium 1.7 mg/dL (1.6-2.3); Non-African American GFR(CKD) >90 (>60 ml/min/1.73 sqM); Potassium 3.4 mmol/L (3.5-5.1); Sodium 137 mmol/L (137-145)
--- NOTE | 2025-02-22 13:14 | P.DS ---
Providers Date of admission: 02/14/25 15:25 Expected date of discharge: 02/22/25 Attending physician: Leighann Jennings Consults: 02/14/25 15:24 Consult Physician Stat Consulting Provider: Jadyn Starkey Consult Reason/Comments: Shock Do you want consulting provider notified?: Already Contacted 02/14/25 19:19 Consult Physician Routine Consulting Provider: Chevy Chang Consult Reason/Comments: sepsis Do you want consulting provider notified?: Yes 02/15/25 13:56 Consult Physician Routine Consulting Provider: Leonel Mchugh Consult Reason/Comments: Bacteremia Do you want consulting provider notified?: Yes Primary care physician: Stated None Hospital Course: Final Diagnosis Septic shock Acute hypoxic hypercapnic respiratory failure on mechanical ventilation Pneumonia Acute COPD exacerbation Dysphagia status post PEG Chronic respiratory failure status post tracheostomy Multiple neck and spine surgery with history of wound dehiscence Hypertension Hyperlipidemia CHF history Seizure disorder Hypothyroidism GI prophylaxis DVT prophylaxis Full code Discharge disposition Patient is being discharged in stable condition with guarded prognosis to [facility] for continued IV abx therapy. Patient to follow up with infectious disease, orthopedics, as well as pulmonary outpatient. Total time taken is greater than 35 minutes. Hospital course This is a pleasant 54 years old female with past medical history of multiple medical problems as below Patient was admitted on 02/14 for being unresponsive. Patient was hypotensive on admission 50/21 on admission and heart rate was 64. Patient found to have septic shock and she was admitted to the ICU requiring pressors, currently she is awake alert blood pressure is stable does not need any pressors. She required mechanical ventilation via tracheostomy. Currently she denies any breathing difficulty or chest pain. She still have a lot of secretions via her tracheostomy tube. Her tube feeding was held overnight, patient requested. Residual was checked was low. Currently patient feels improved, she is up in bed awake and alert tracheostomy in place. Abdomen soft denies any specific complaint. Also she is hemodynamically stable and afebrile. Labs from today showing WBC 10.8, hemoglobin 8.8. BMP is unremarkable and glucose controlled. Vancomycin trough is 20.5 02/18 She is moved of the ICU to select units yesterday She is walking in the room freely but she is connected through her tracheostomy tube to the oxygen on the wall. Currently requiring 8 units via nasal cannula Patient looks relaxed and smiling requesting to be discharged. Informed the patient she is not ready for discharge she is on IV antibiotics and IV steroids and IV fluids. She agrees to stay. No other new complaints Howell catheter in place 02/19 Patient up in chair Has not 6-7 bowel movements this morning no abdominal pain Patient feels fine Patient asked to be discharged, told the patient she is not ready She is still on 5 L oxygen via trach collar She is still on meropenem Ringer lactate 75 metoprolol and IV subdural 60 mg Plan of care discussed with the patient and she agrees 02/20/2025 Patient is seen in follow-up currently sitting up in bed reports she just received her midline and would like to discharge home. Patient does have a guardian who would like her to go to ECF for continued IV antibiotic therapy. Case management is following make arrangements and placing referrals to excepting ECF. Patient continues on trach collar at 5 L and tolerating well. Patient reports is tolerating diet with no reported nausea or vomiting.. Will discuss further with other consultations regarding discharge planning. Patient will also require insurance Auth for case management. 02/21/2025 Patient seen in follow-up sitting up in the chair with significant other at the bedside. Patient will require IV antibiotics on discharge for 1 week per infectious disease and case management following submitting referrals to ECF's and awaiting insurance authorization. [facility] is reviewing at this time. Patient is afebrile denies any worsening shortness of breath and tolerating current regimen. Patient was adamant about going home although his legal guardian and given patient needs IV antibiotics on discharge, patient will go to ECF for continued IV antibiotic therapy. 02/22/2025 Patient has received insurance authorization to [facility] and has been cleared by consultations for discharge to ECF. Patient has a midline and is to continue with IV antibiotics on discharge for 7 days. Legal guardian is aware and agreeable to [facility] for continued IV abx therapy. Please refer to other consultation notes for further HPI. Physical exam: GENERAL: The patient is alert and oriented x3, not in any acute distress. Well developed, well nourished. Thin built HEENT: Pupils are round and equally reacting to light. EOMI. No scleral icterus. No conjunctival pallor. Normocephalic, atraumatic. No pharyngeal erythema. No thyromegaly. CARDIOVASCULAR: S1 and S2 muffled PULMONARY: Chest is clear to auscultation, no wheezing , no crackles. tracheostomy noted ABDOMEN: Soft, nontender, nondistended, normoactive bowel sounds. No palpable organomegaly. Patient has a PEG tube MUSCULOSKELETAL: No joint swelling or deformity. EXTREMITIES: No cyanosis, clubbing, or pedal edema. NEUROLOGICAL: Gross neurological examination did not reveal any focal deficits. Diffusely weak SKIN: No rashes. no petechiae. The impression and plan of care has been dictated by Kristina Wells, Nurse Practitioner as directed. Dr. Dick MD I have performed a history and examination and MDM of this patient, discussed the same with the dictator, and agree with the dictator's assessment and plan as written ,documented as a scribe. Based on total visit time, I have performed more than 50% of the visit. Patient Condition at Discharge: Fair Plan - Discharge Summary Discharge Rx Participant: Yes New Discharge Prescriptions: New Ipratropium-Albuterol Nebulize [Duoneb 0.5 mg-3 mg/3 ml Soln] 3 ml INHALATION RT-QID each Ipratropium-Albuterol Nebulize [Duoneb 0.5 mg-3 mg/3 ml Soln] 3 ml INHALATION RT-Q4H PRN each PRN Reason: Shortness Of Breath Or Wheezing Meropenem [Merrem] 1 gm IVPB Q8H 7 Days #21 each predniSONE 30 mg PO DAILY tab Nicotine 21Mg/24Hr Patch [Habitrol] 1 patch TRANSDERM DAILY patch Heparin Sodium,Porcine (1 ml) [Heparin Sodium] 5,000 unit SQ Q12HR each Formoterol Fumarate [Perforomist] 20 mcg INHALATION RT-BID ml Continue Pantoprazole Sodium [Protonix] 40 mg PEG/G-TUBE DAILY Albuterol Sulfate [Proair Hfa] 2 puff INHALATION RT-Q6H PRN PRN Reason: Shortness Of Breath Prazosin HCl [Minipress] 2 mg PEG/G-TUBE BID Fluticasone/Umeclidin/Vilanter [Trelegy Ellipta 100-62.5-25] 1 puff INHALATION RT-DAILY Brivaracetam [Briviact] 100 mg PEG/G-TUBE BID Fluticasone Nasal [place] [Flonase Nasal [place]] 1 spr EA NOSTRIL DAILY Propranolol [Inderal] 20 mg PEG/G-TUBE BID Cholecalciferol (Vitamin D3) [Vitamin D3 (50 Mcg = 2000 Iu)] 50 mcg PEG/G- TUBE DAILY Acetaminophen Tab [Tylenol] 500 mg PEG/G-TUBE Q6HR PRN PRN Reason: Pain Folic Acid 0.4 mg PEG/G-TUBE DAILY Sertraline HCl 200 mg PEG/G-TUBE DAILY Tamsulosin HCl [Flomax] 0.4 mg PEG/G-TUBE DAILY Ibuprofen [Motrin] 800 mg PEG/G-TUBE Q8H PRN PRN Reason: Moderate Pain (Scale 4 To 6) Umeclidinium [place] [Incruse Ellipta] 1 puff INHALATION RT-DAILY Gabapentin [Neurontin] 800 mg PEG/G-TUBE TID Topiramate [Trokendi Xr] 100 mg PEG/G-TUBE DAILY@0600 rOPINIRole HCL [Requip] 2 mg PEG/G-TUBE BID Cetirizine HCl [Zyrtec] 10 mg PEG/G-TUBE DAILY Levothyroxine Sodium [Synthroid] 88 mcg PEG/G-TUBE DAILY Montelukast [Singulair] 10 mg PEG/G-TUBE HS busPIRone HCL 15 mg PEG/G-TUBE TID Multivitamins, Thera [Multivitamin (formulary)] 1 tab PEG/G-TUBE DAILY Butalb/APAP/Caff 50-325-40Mg [Fioricet 50-325-40] 1 tab PEG/G-TUBE Q8H PRN PRN Reason: Migraine Headache Sennosides 8.6 mg PEG/G-TUBE DAILY rOPINIRole HCL [Requip] 1 mg PEG/G-TUBE BID Cyclobenzaprine [Flexeril] 10 mg PEG/G-TUBE BID Budesonide [Pulmicort] 0.5 mg INHALATION RT-BID hydrOXYzine pamoate [Vistaril] 50 mg PEG/G-TUBE TID PRN PRN Reason: Anxiety Furosemide [Lasix] 20 mg PEG/G-TUBE BID Acetaminophen-Codeine 300-30mg [Tylenol w/codeine #3] 1 tab PEG/G-TUBE TID PRN #4 tab PRN Reason: Moderate Pain (Scale 4 To 6) Changed ALPRAZolam [Xanax] 0.5 mg PEG/G-TUBE BID PRN #4 tab PRN Reason: Anxiety HYDROcodone/APAP 5-325MG [[place] 5-325] 1 tab PEG/G-TUBE Q8H PRN #4 tab PRN Reason: Moderate Pain (Scale 4 To 6) Discontinued Asenapine Maleate [Saphris] 10 mg SUBLINGUAL BID Ipratropium-Albuterol Nebulize [Duoneb 0.5 mg-3 mg/3 ml Soln] 3 ml INHALATION RT-QID each Fluticasone Propion/Salmeterol [Advair 100-50 Diskus] 1 puff PO RT-Q12H Discharge Medication List Pantoprazole Sodium [Protonix] 40 mg PEG/G-TUBE DAILY 01/07/19 [History] Topiramate [Trokendi Xr] 100 mg PEG/G-TUBE DAILY@0600 04/15/21 [History] Albuterol Sulfate [Proair Hfa] 2 puff INHALATION RT-Q6H PRN 05/10/21 [History] Prazosin HCl [Minipress] 2 mg PEG/G-TUBE BID 05/10/21 [History] rOPINIRole HCL [Requip] 2 mg PEG/G-TUBE BID 05/10/21 [History] Fluticasone/Umeclidin/Vilanter [Trelegy Ellipta 100-62.5-25] 1 puff INHALATION RT-DAILY 12/10/22 [History] Brivaracetam [Briviact] 100 mg PEG/G-TUBE BID 07/10/23 [History] Cetirizine HCl [Zyrtec] 10 mg PEG/G-TUBE DAILY 07/27/23 [History] Fluticasone Nasal [place] [Flonase Nasal [place]] 1 spr EA NOSTRIL DAILY 07/27/23 [History] Levothyroxine Sodium [Synthroid] 88 mcg PEG/G-TUBE DAILY 07/27/23 [History] Propranolol [Inderal] 20 mg PEG/G-TUBE BID 07/27/23 [History] Acetaminophen Tab [Tylenol] 500 mg PEG/G-TUBE Q6HR PRN 10/25/24 [History] Cholecalciferol (Vitamin D3) [Vitamin D3 (50 Mcg = 2000 Iu)] 50 mcg PEG/G-TUBE DAILY 10/25/24 [History] Montelukast [Singulair] 10 mg PEG/G-TUBE HS 10/25/24 [History] busPIRone HCL 15 mg PEG/G-TUBE TID 10/25/24 [History] Folic Acid 0.4 mg PEG/G-TUBE DAILY 12/04/24 [History] Multivitamins, Thera [Multivitamin (formulary)] 1 tab PEG/G-TUBE DAILY 12/04/24 [History] Sertraline HCl 200 mg PEG/G-TUBE DAILY 12/04/24 [History] Tamsulosin HCl [Flomax] 0.4 mg PEG/G-TUBE DAILY 12/04/24 [History] Budesonide [Pulmicort] 0.5 mg INHALATION RT-BID 02/14/25 [History] Butalb/APAP/Caff 50-325-40Mg [Fioricet 50-325-40] 1 tab PEG/G-TUBE Q8H PRN 02/14/25 [History] Cyclobenzaprine [Flexeril] 10 mg PEG/G-TUBE BID 02/14/25 [History] Furosemide [Lasix] 20 mg PEG/G-TUBE BID 02/14/25 [History] Gabapentin [Neurontin] 800 mg PEG/G-TUBE TID 02/14/25 [History] Ibuprofen [Motrin] 800 mg PEG/G-TUBE Q8H PRN 02/14/25 [History] Sennosides 8.6 mg PEG/G-TUBE DAILY 02/14/25 [History] Umeclidinium [place] [Incruse Ellipta] 1 puff INHALATION RT-DAILY 02/14/25 [History] hydrOXYzine pamoate [Vistaril] 50 mg PEG/G-TUBE TID PRN 02/14/25 [History] rOPINIRole HCL [Requip] 1 mg PEG/G-TUBE BID 02/14/25 [History] ALPRAZolam [Xanax] 0.5 mg PEG/G-TUBE BID PRN #4 tab 02/22/25 [Rx] Acetaminophen-Codeine 300-30mg [Tylenol w/codeine #3] 1 tab PEG/G-TUBE TID PRN #4 tab 02/22/25 [Rx] Formoterol Fumarate [Perforomist] 20 mcg INHALATION RT-BID ml 02/22/25 [Rx] HYDROcodone/APAP 5-325MG [[place] 5-325] 1 tab PEG/G-TUBE Q8H PRN #4 tab 02/22/25 [Rx] Heparin Sodium,Porcine (1 ml) [Heparin Sodium] 5,000 unit SQ Q12HR each 02/22/25 [Rx] Ipratropium-Albuterol Nebulize [Duoneb 0.5 mg-3 mg/3 ml Soln] 3 ml INHALATION RT-Q4H PRN each 02/22/25 [Rx] Ipratropium-Albuterol Nebulize [Duoneb 0.5 mg-3 mg/3 ml Soln] 3 ml INHALATION RT-QID each 02/22/25 [Rx] Meropenem [Merrem] 1 gm IVPB Q8H 7 Days #21 each 02/22/25 [Rx] Nicotine 21Mg/24Hr Patch [Habitrol] 1 patch TRANSDERM DAILY patch 02/22/25 [Rx] predniSONE 30 mg PO DAILY tab 02/22/25 [Rx] Follow up Appointment(s)/Referral(s): [facility], [NON-STAFF] - 1 Week Leonel Mchugh DO [Doctor of Osteopathic Medicine] - 03/01/25 10:30 am Joan Dumont MD [STAFF PHYSICIAN] - 2 Weeks Activity/Diet/Wound Care/Special Instructions: Patient is going to [place] activity as tolerated continue with heart healthy diet pt does have a peg tube and would recommend continuing to flush daily in the event it is used again continue with IV abx for 7 days on discharge follow up with ortho on discharge follow up with ID on discharge Discharge Disposition: TRANSFER TO SNF/ECF
--- NOTE | 2025-02-22 15:12 | P.PN ---
Subjective Progress Note Date: 02/22/25 The patient is seen today February 19, 2025 in follow-up on the regular medical floor. She is currently sitting up in a chair at the bedside. Awake and alert in no acute distress. Maintaining good O2 saturations in the 90s on 28% trach collar. She has been afebrile. Hemodynamically stable. Follow-up blood cultures revealed no growth. Sputum sample was positive for Pseudomonas aeruginosa. No new labs today. She remains on DuoNeb and elations, Pulmicort and performance inhalations, Singulair. She is continued on antibiotics in the form of meropenem. The patient is seen today February 20, 2025 in follow-up on the regular medical floor. She is awake and alert in no acute distress. Sitting up in bed. Maintaining O2 saturations in the 90s on 28% FiO2 via trach collar. She has been afebrile. Hemodynamically stable. White count 11.9. Hemoglobin 10.7. Platelets 332. Sodium 137. Potassium 3.9. Bicarb 34. BUN 22. Creatinine 0.79. Glucose 131. She remains on DuoNeb inhalations, Pulmicort and Perforomist inhalations, Singulair, Solu-Medrol. She is continued on antibiotics in the form of meropenem. The patient is seen today February 21, 2025 in follow-up on the regular medical floor. She is sitting up in a chair at the bedside. Awake and alert in no acute distress. Maintaining O2 saturations in the 90s on room air oxygen. Speaking valve in place. White count 12.2. Hemoglobin 11.1. Platelets 321. Sodium 136. Potassium 3.5. Bicarb 33. BUN 22. Creatinine 0.69. Glucose 95. She remains on bronchodilators and steroids. NicoDerm patch in place. Continued on meropenem. She is anxious to be discharged. The patient is seen today February 22, 2025 in follow-up on the selective care unit. She is awake and alert in no acute distress. Resting comfortably in bed. Maintaining good O2 saturations in the 90s on room air oxygen. Speaking valve in place to the tracheostomy tube. Denies any worsening shortness of breath, cough or congestion. She is continued on DuoNeb inhalations, Pulmicort and performance inhalations, Singulair and a prednisone taper. NicoDerm patch in place. She remains on antibiotics in the form of meropenem. Heparin for DVT prophylaxis. Remains on oral diuretics. White count 10.5. Hemoglobin 10.1. Platelets 306. Sodium 137. Potassium 3.4. Bicarb 35. BUN 18. Creatinine 0.75. Glucose 112. Objective - Vital Signs Vital signs: Vital Signs Temp 98.5 F 02/22/25 12:00 Pulse 95 02/22/25 12:35 Resp 16 02/22/25 12:00 BP 154/92 02/22/25 12:00 Pulse Ox 91 L 02/22/25 12:00 FiO2 21 02/20/25 08:27 Intake & Output 02/21/25 02/22/25 02/22/25 18:59 06:59 18:59 Intake Total 480 540 Balance 480 540 Weight 60 kg Intake: Oral 480 540 Other: Voiding Method Bedside Commode Bedside Commode Bedside Commode # Voids 2 ABP, PAP, CO, CI - Last Documented Arterial Blood Pressure 99/57 - Exam GENERAL EXAM: Alert, weak 54-year-old female, sitting up in a chair, on room air oxygen, in no apparent distress. HEAD: Normocephalic. EYES: Normal reaction of pupils, equal size. NOSE: Clear with pink turbinates. THROAT: No erythema or exudates. NECK: No masses, no JVD. Tracheostomy tube secured in place with speaking valve. CHEST: No chest wall deformity. LUNGS: Equal air entry with no crackles, wheeze, rhonchi or dullness. CVS: S1 and S2 normal with no audible murmur, regular rhythm. ABDOMEN: No hepatosplenomegaly, normal bowel sounds, no guarding or rigidity. SPINE: No scoliosis or deformity SKIN: No rashes CENTRAL NERVOUS SYSTEM: No focal deficits, tone is normal in all 4 extremities. EXTREMITIES: There is no peripheral edema. No clubbing, no cyanosis. Peripheral pulses are intact. - Labs CBC & Chem 7: 02/22/25 06:29 02/22/25 06:29 Labs: Abnormal Lab Results - Last 24 Hours (Table) 02/22/25 02/22/25 Range/Units 06: 06:29 WBC 10.54 H (4.50-10.00) 10*3/uL RBC 3.98 L (4.10-5.20) 10*6/uL Hgb 10.1 L (12.0-15.0) g/dL Hct 34.0 L (37.2-46.3) % MCH 25.4 L (27.0-32.0) pg MCHC 29.7 L (32.0-37.0) g/dL MPV 8.9 L (9.5-12.2) fL Immature Gran # 0.05 H (0.00-0.04) 10*3/uL Monocytes # 1.03 H (0.20-1.00) 10*3/uL Potassium 3.4 L (3.5-5.1) mmol/L Carbon Dioxide 35 H (22-30) mmol/L BUN 18 H (7-17) mg/dL Glucose 112 H (74-99) mg/dL Microbiology - Last 24 Hours (Table) 02/16/25 14:06 Blood Culture - Final Blood Assessment and Plan Assessment: Acute hypoxemic and hypercapnic respiratory failure secondary to sepsis with septic shock and acute metabolic encephalopathy requiring mechanical ventilatory support. Uncuffed trach changed out to a cuffed #4 Shiley with speaking valve. Currently on room air oxygen History of prolonged respiratory failure requiring tracheostomy and PEG tube placement Multiple neck and spine surgeries including thoracolumbar wound dehiscence Advanced chronic obstructive pulmonary disease Hypertension Hyperlipidemia Coronary disease History of congestive heart failure History of seizure disorder Hypothyroidism History of anxiety/depression/PTSD Plan: The patient was seen and evaluated Medications and labs reviewed Remained stable on room air oxygen Continue DuoNeb inhalations Continue Pulmicort and Perforomist inhalations Continue prednisone taper Continue Singulair Heparin for DVT prophylax Continue meropenem for a total 7-day course Plan is for [facility] possibly today I have personally seen and examined the patient, performed the documentation and the assessment and plan as written. Number of minutes spent on the visit: 10 Dictation was produced using [employer] dictation software. Please excuse any grammatical, word or spelling errors.
[2025-02-22] MEDS: ASENAPINE 5 MG TAB SUBLINGUAL SCH (16:44)
[2025-02-22] MEDS ORDERED: IBUPROFEN ORAL SUSP 2,400 MG/120 ML BOTTLE PEG/G-TUBE PRN (21:42)
--- NOTE | 2025-02-22 23:03 | P.PN ---
Subjective Progress Note Date: 02/22/25 Principal diagnosis: Reason for follow-up is pneumonia/positive blood culture Patient is a 54-year-old female with a past medical history significant for hypertension hyperlipidemia fibromyalgia chronic back pain in this patient who did have multiple surgeries to the thoracic spine admitted to the hospital concerning for pneumonia/sepsis. On today's evaluation that is 02/22/2025,the patient denies any fever or any chills, patient is breathing comfortably on room air, the patient denies chest pain shortness of breath and no significant cough, patient denies abdominal pain, no nausea vomiting or diarrhea.. Patient white count is 10.54 creatinine 0.75 Objective - Vital Signs Vital signs: Vital Signs Temp 98.5 F 02/22/25 12:00 Pulse 90 02/22/25 16:25 Resp 16 02/22/25 12:00 BP 154/92 02/22/25 12:00 Pulse Ox 91 L 02/22/25 12:00 FiO2 21 02/20/25 08:27 Intake & Output 02/21/25 02/22/25 02/22/25 18:59 06:59 18:59 Intake Total 480 540 Balance 480 540 Weight 60 kg Intake: Oral 480 540 Other: Voiding Method Bedside Commode Bedside Commode Bedside Commode # Voids 2 ABP, PAP, CO, CI - Last Documented Arterial Blood Pressure 99/57 - Exam GENERAL DESCRIPTION: Middle-age female lying in bed in no distress RESPIRATORY SYSTEM: Unlabored breathing , decreased breath sounds at bases HEART: S1 S2 regular rate and rhythm , ABDOMEN: Soft , no tenderness EXTREMITIES: No edema feet - Labs CBC & Chem 7: 02/22/25 06:29 02/22/25 06:29 Labs: Abnormal Lab Results - Last 24 Hours (Table) 02/22/25 02/22/25 Range/Units 06:29 06:29 WBC 10.54 H (4.50-10.00) 10*3/uL RBC 3.98 L (4.10-5.20) 10*6/uL Hgb 10.1 L (12.0-15.0) g/dL Hct 34.0 L (37.2-46.3) % MCH 25.4 L (27.0-32.0) pg MCHC 29.7 L (32.0-37.0) g/dL MPV 8.9 L (9.5-12.2) fL Immature Gran # 0.05 H (0.00-0.04) 10*3/uL Monocytes # 1.03 H (0.20-1.00) 10*3/uL Potassium 3.4 L (3.5-5.1) mmol/L Carbon Dioxide 35 H (22-30) mmol/L BUN 18 H (7-17) mg/dL Glucose 112 H (74-99) mg/dL Microbiology - Last 24 Hours (Table) 02/16/25 14:06 Blood Culture - Final Blood Assessment and Plan (1) Pneumonia Current Visit: No Status: Acute Code(s): J18.9 - PNEUMONIA, UNSPECIFIED ORGANISM SNOMED Code(s): 087831338 (2) Positive blood culture Current Visit: Yes Status: Acute Code(s): R78.81 - BACTEREMIA SNOMED Code(s): 703453592 Plan: 1patient presented to hospital with episode of unresponsiveness/seizure patient noted to be significantly hypoxic requiring intubation and this patient did have a chronic tracheostomy from a previous episode of following intubation and respiratory failure, possible component of pneumonia/UTI not entirely excluded 2-patient did have positive blood culture with Staphylococcus simulans question of skin contamination versus true pathogen blood culture has been repeated which are negative so far 3sputum is growing Pseudomonas which is resistant to the cefepime and Zosyn, patient is currently treated with meropenem 1 g every 8 hours, today is day 5 out of 7 of her antibiotic therapy Dictation was produced using [employer] dictation software. please excuse any grammatical, word or spelling errors. Time with Patient: Less than 30
--- NOTE | 2025-02-23 13:59 | P.PN ---
Subjective Progress Note Date: 02/23/25 The patient is seen today February 19, 2025 in follow-up on the regular medical floor. She is currently sitting up in a chair at the bedside. Awake and alert in no acute distress. Maintaining good O2 saturations in the 90s on 28% trach collar. She has been afebrile. Hemodynamically stable. Follow-up blood cultures revealed no growth. Sputum sample was positive for Pseudomonas aeruginosa. No new labs today. She remains on DuoNeb and elations, Pulmicort and performance inhalations, Singulair. She is continued on antibiotics in the form of meropenem. The patient is seen today February 20, 2025 in follow-up on the regular medical floor. She is awake and alert in no acute distress. Sitting up in bed. Maintaining O2 saturations in the 90s on 28% FiO2 via trach collar. She has been afebrile. Hemodynamically stable. White count 11.9. Hemoglobin 10.7. Platelets 332. Sodium 137. Potassium 3.9. Bicarb 34. BUN 22. Creatinine 0.79. Glucose 131. She remains on DuoNeb inhalations, Pulmicort and Perforomist inhalations, Singulair, Solu-Medrol. She is continued on antibiotics in the form of meropenem. The patient is seen today February 21, 2025 in follow-up on the regular medical floor. She is sitting up in a chair at the bedside. Awake and alert in no acute distress. Maintaining O2 saturations in the 90s on room air oxygen. Speaking valve in place. White count 12.2. Hemoglobin 11.1. Platelets 321. Sodium 136. Potassium 3.5. Bicarb 33. BUN 22. Creatinine 0.69. Glucose 95. She remains on bronchodilators and steroids. NicoDerm patch in place. Continued on meropenem. She is anxious to be discharged. The patient is seen today February 22, 2025 in follow-up on the selective care unit. She is awake and alert in no acute distress. Resting comfortably in bed. Maintaining good O2 saturations in the 90s on room air oxygen. Speaking valve in place to the tracheostomy tube. Denies any worsening shortness of breath, cough or congestion. She is continued on DuoNeb inhalations, Pulmicort and performance inhalations, Singulair and a prednisone taper. NicoDerm patch in place. She remains on antibiotics in the form of meropenem. Heparin for DVT prophylaxis. Remains on oral diuretics. White count 10.5. Hemoglobin 10.1. Platelets 306. Sodium 137. Potassium 3.4. Bicarb 35. BUN 18. Creatinine 0.75. Glucose 112. The patient is seen today February 23, 2025 in follow-up on the selective care unit. She is currently sitting up in a chair at the bedside. Awake and alert in no acute distress. Maintaining good O2 saturations in the 90s on room air oxygen. Afebrile. Hemodynamically stable. Continued on DuoNeb and elations, Pulmicort and performance inhalations, prednisone taper. NicoDerm patch in place. Heparin for DVT prophylaxis. Remains on meropenem per ID service. No new labs today. Objective - Vital Signs Vital signs: Vital Signs Temp 98.1 F 02/23/25 08:00 Pulse 92 02/23/25 12:02 Resp 18 02/23/25 13:11 BP 147/86 02/23/25 11:25 Pulse Ox 92 L 02/23/25 11:25 FiO2 21 02/20/25 08:27 Intake & Output 02/22/25 02/23/25 02/23/25 18:59 06:59 18:59 Intake Total 240 0 Balance 240 0 Weight 57.7 kg Intake: Oral 240 0 Other: Voiding Method Toilet Toilet Toilet # Voids 2 1 # Bowel Movements 1 ABP, PAP, CO, CI - Last Documented Arterial Blood Pressure 99/57 - Exam GENERAL EXAM: Alert, weak, pleasant 54-year-old female, up in a chair, on room air, in no apparent distress. HEAD: Normocephalic. EYES: Normal reaction of pupils, equal size. NOSE: Clear with pink turbinates. THROAT: No erythema or exudates. NECK: No masses, no JVD. Tracheostomy tube secured in place with speaking valve. CHEST: No chest wall deformity. LUNGS: Equal air entry with no crackles, wheeze, rhonchi or dullness. CVS: S1 and S2 normal with no audible murmur, regular rhythm. ABDOMEN: No hepatosplenomegaly, normal bowel sounds, no guarding or rigidity. SPINE: No scoliosis or deformity SKIN: No rashes CENTRAL NERVOUS SYSTEM: No focal deficits, tone is normal in all 4 extremities. EXTREMITIES: There is no peripheral edema. No clubbing, no cyanosis. Peripheral pulses are intact. - Labs CBC & Chem 7: 02/22/25 06:29 02/22/25 06:29 Assessment and Plan Assessment: Acute hypoxemic and hypercapnic respiratory failure secondary to sepsis with septic shock and acute metabolic encephalopathy requiring mechanical ventilatory support. Uncuffed trach changed out to a cuffed #4 Shiley with speaking valve. Currently on room air oxygen History of prolonged respiratory failure requiring tracheostomy and PEG tube placement Multiple neck and spine surgeries including thoracolumbar wound dehiscence Advanced chronic obstructive pulmonary disease Hypertension Hyperlipidemia Coronary disease History of congestive heart failure History of seizure disorder Hypothyroidism History of anxiety/depression/PTSD Plan: The patient was seen and evaluated Medications reviewed Stable on room air oxygen Continue DuoNeb inhalations Continue Pulmicort and Perforomist inhalations Continue prednisone taper Continue Singulair Heparin for DVT prophylax Continue meropenem for a total 7-day course Plan is for [facility] possibly today I have personally seen and examined the patient, performed the documentation and the assessment and plan as written. Number of minutes spent on the visit: 10 Dictation was produced using [employer] dictation software. Please excuse any grammatical, word or spelling errors.
[2025-02-23] MEDS: FUROSEMIDE 10 MG/ML 4 ML VIAL IV STA (17:12)
[2025-02-23] MEDS ORDERED: Acetaminophen-Codeine 300-30mg TAB PO PRN (20:13)
[2025-02-23] MEDS ORDERED: hydrOXYzine pamoate 25 MG CAP PO PRN (20:14)
[2025-02-23] MEDS: NON FORMULARY DRUG (Brivaracetam [Briviact] 100 MG Tablet) PO SCH (21:00)
[2025-02-23] MEDS: busPIRone HCl 5 MG TAB PO SCH (21:00)
[2025-02-23] MEDS: GABAPENTIN 400 MG CAP PO SCH (21:01)
[2025-02-23] MEDS: FUROSEMIDE 20 MG TAB PO SCH (21:02)
[2025-02-23] MEDS: PRAZOSIN 1 MG CAP PO SCH (21:02)
[2025-02-23] MEDS: PROPRANOLOL 20 MG TAB PO SCH (21:02)
[2025-02-23] MEDS: CYCLOBENZAPRINE 10 MG TAB PO SCH (21:02)
[2025-02-23] MEDS: TOPIRAMATE 25 MG TAB PO SCH (21:04)
[2025-02-23] MEDS: MONTELUKAST 10 MG TAB PO SCH (21:05)
[2025-02-23] MEDS: ALPRAZolam 0.5 MG TAB PO PRN (21:05)
--- NOTE | 2025-02-23 22:26 | P.PN ---
Subjective Progress Note Date: 02/23/25 Principal diagnosis: Reason for follow-up is pneumonia/positive blood culture Patient is a 54-year-old female with a past medical history significant for hypertension hyperlipidemia fibromyalgia chronic back pain in this patient who did have multiple surgeries to the thoracic spine admitted to the hospital concerning for pneumonia/sepsis. On today's evaluation that is 02/23/2025,the patient remains to be afebrile, patient is on room air not requiring supplemental oxygen and denies any shortness of breath no chest pain and cough has decreased in intensity.Patient denies having any nausea or vomiting, no abdominal pain and no diarrhea has been reported. Patient white count 10.54 as of yesterday no CBC was done today Objective - Vital Signs Vital signs: Vital Signs Temp 98.1 F 02/23/25 08:00 Pulse 92 02/23/25 12:02 Resp 18 02/23/25 11:25 BP 147/86 02/23/25 11:25 Pulse Ox 92 L 02/23/25 11:25 FiO2 21 02/20/25 08:27 Intake & Output 02/22/25 02/23/25 02/23/25 18:59 06:59 18:59 Intake Total 240 0 Balance 240 0 Weight 57.7 kg Intake: Oral 240 0 Other: Voiding Method Toilet Toilet Toilet # Voids 2 1 # Bowel Movements 1 ABP, PAP, CO, CI - Last Documented Arterial Blood Pressure 99/57 - Exam GENERAL DESCRIPTION: Middle-age female lying in bed in no distress RESPIRATORY SYSTEM: Unlabored breathing , decreased breath sounds at bases HEART: S1 S2 regular rate and rhythm , ABDOMEN: Soft , no tenderness EXTREMITIES: No edema feet - Labs CBC & Chem 7: 02/22/25 06:29 02/22/25 06:29 Assessment and Plan (1) Pneumonia Current Visit: No Status: Acute Code(s): J18.9 - PNEUMONIA, UNSPECIFIED ORGANISM SNOMED Code(s): 597928836 (2) Positive blood culture Current Visit: Yes Status: Acute Code(s): R78.81 - BACTEREMIA SNOMED Code(s): 316537562 Plan: 1patient presented to hospital with episode of unresponsiveness/seizure patient noted to be significantly hypoxic requiring intubation and this patient did have a chronic tracheostomy from a previous episode of following intubation and respiratory failure, possible component of pneumonia/UTI not entirely excluded 2-patient did have positive blood culture with Staphylococcus simulans question of skin contamination versus true pathogen blood culture has been repeated which are negative so far 3sputum is growing Pseudomonas which is resistant to the cefepime and Zosyn, patient is currently treated with meropenem 1 g every 8 hours, today is day 6 out of 7 of her antibiotic therapy and the patient will be to go home after 4 PM dose tomorrow afternoon this was discussed with the [employer]RET SAW OPERATOR for admitting team Dictation was produced using [employer] dictation software. please excuse any grammatical, word or spelling errors. Time with Patient: Less than 30
[2025-02-24] MEDS: IBUPROFEN 400 MG TAB PO PRN (00:40)
[2025-02-24] MEDS: HYDROcodone/APAP 5-325MG 1 EACH TAB PO PRN (04:12)
--- NOTE | 2025-02-24 05:52 | P.PN ---
Subjective Progress Note Date: 02/23/25 This is a pleasant 54 years old female with past medical history of multiple medical problems as below Patient was admitted on 02/14 for being unresponsive. Patient was hypotensive on admission 50/21 on admission and heart rate was 64. Patient found to have septic shock and she was admitted to the ICU requiring pressors, currently she is awake alert blood pressure is stable does not need any pressors. She required mechanical ventilation via tracheostomy. Currently she denies any breathing difficulty or chest pain. She still have a lot of secretions via her tracheostomy tube. Her tube feeding was held overnight, patient requested. Residual was checked was low. Currently patient feels improved, she is up in bed awake and alert tracheostomy in place. Abdomen soft denies any specific complaint. Also she is hemodynamically stable and afebrile. Labs from today showing WBC 10.8, hemoglobin 8.8. BMP is unremarkable and glucose controlled. Vancomycin trough is 20.5 02/18 She is moved of the ICU to select units yesterday She is walking in the room freely but she is connected through her tracheostomy tube to the oxygen on the wall. Currently requiring 8 units via nasal cannula Patient looks relaxed and smiling requesting to be discharged. Informed the patient she is not ready for discharge she is on IV antibiotics and IV steroids and IV fluids. She agrees to stay. No other new complaints Howell catheter in place 02/19 Patient up in chair Has not 6-7 bowel movements this morning no abdominal pain Patient feels fine Patient asked to be discharged, told the patient she is not ready She is still on 5 L oxygen via trach collar She is still on meropenem Ringer lactate 75 metoprolol and IV subdural 60 mg Plan of care discussed with the patient and she agrees 02/20/2025 Patient is seen in follow-up currently sitting up in bed reports she just received her midline and would like to discharge home. Patient does have a guardian who would like her to go to [facility] for continued IV antibiotic therapy. Case management is following make arrangements and [facility]. Patient continues on trach collar at 5 L and tolerating well. Patient reports is tolerating diet with no reported nausea or vomiting.. Will discuss further with other consultations regarding discharge planning. Patient will also require insurance Auth for case management. 02/21/2025 Patient seen in follow-up sitting up in the chair with significant other at the bedside. Patient will require IV antibiotics on discharge for 1 week per infectious disease and case management following submitting referrals to ECF's and awaiting insurance authorization. [facility] is reviewing at this time. Patient is afebrile denies any worsening shortness of breath and tolerating current regimen. Patient was adamant about going home although his legal guardian and given patient needs IV antibiotics on discharge, patient will go to ECF for continued IV antibiotic therapy. 02/23/2025 Patient is seen in follow-up today with no acute overnight issues noted. Patient apparently did not receive insurance authorization and has been denied going to ECF. Legal guardian was contacted and patient is not to return home with IV antibiotic therapy. Patient per infectious disease will require 1 additional day of IV antibiotics to complete the 7-day course and will likely be discharged home with home care in the next 24 hours. Patient is afebrile with no reports of chest pain or shortness of breath. Patient has been tolerating diet and will continue current regimen. Recommend flushing PEG tube to ensure patency in the event that is being used again. Patient to continue with aspiration precautions. Patient is reporting overall bloating and feeling puffy, will give 1 dose of Lasix. Will follow-up on repeat labs in the a.m. and discussed with case management regarding discharge planning. Review of systems: Constitutional: No reports of fatigue, fever, or chills Cardiovascular: No reports of chest pain or palpitations Respiratory: No reports of shortness of breath or cough GI: No reports of nausea, vomiting, reporting some loose stool but improving : No reports of dysuria or retention Neurovascular: No reports of weakness or numbness All medications have been reviewed Physical exam: GENERAL: The patient is alert and oriented x3, not in any acute distress. Well developed, well nourished. Thin built HEENT: Pupils are round and equally reacting to light. EOMI. No scleral icterus. No conjunctival pallor. Normocephalic, atraumatic. No pharyngeal erythema. No thyromegaly. CARDIOVASCULAR: S1 and S2 muffled PULMONARY: Chest is clear to auscultation, no wheezing , no crackles. tracheostomy noted ABDOMEN: Soft, nontender, nondistended, normoactive bowel sounds. No palpable organomegaly. Patient has a PEG tube MUSCULOSKELETAL: No joint swelling or deformity. EXTREMITIES: No cyanosis, clubbing, or pedal edema. NEUROLOGICAL: Gross neurological examination did not reveal any focal deficits. Diffusely weak SKIN: No rashes. no petechiae. Assessment: Septic shock Acute hypoxic hypercapnic respiratory failure on mechanical ventilation Pneumonia Acute COPD exacerbation Dysphagia status post PEG Chronic respiratory failure status post tracheostomy Multiple neck and spine surgery with history of wound dehiscence Hypertension Hyperlipidemia CHF history Seizure disorder Hypothyroidism GI prophylaxis DVT prophylaxis Full code Plan: Infectious disease following and patient is to continue on IV antibiotics in the form of meropenem for 1 week. Plan was for going to [facility] for continued IV antibiotic therapy although insurance authorization has been denied. Legal guardian does not want patient going home with IV antibiotics and patient will complete course during hospitalization. Discussed with infectious disease and patient is to receive 1 more day of IV antibiotics with discharge planning in process for 02/24/2025. Case management/social work following making discharge planning arrangements and will continue with home care outpatient continue to encourage increase activity as tolerated Recommend continued aspiration precautions at all times We will follow-up on repeat labs in the a.m. continue to monitor kidney functions and electrolytes. Recommend to replace electrolytes per protocol Patient was reporting some overall swelling and puffiness feeling possibly secondary to IV fluids fluids have been discontinued and patient will be given a dose of Lasix Due to multiple complex medical issues, overall prognosis is guarded Possible discharge planning in the next 24 hours The impression and plan of care has been dictated by Kristina Wells, Nurse Practitioner as directed. Dr. Dick MD I have performed a history and examination and MDM of this patient, discussed the same with the dictator, and agree with the dictator's assessment and plan as written ,documented as a scribe. Based on total visit time, I have performed more than 50% of the visit. Objective - Vital Signs Vital signs: Vital Signs Temp 98.1 F 02/23/25 08:00 Pulse 92 02/23/25 12:02 Resp 18 02/23/25 13:11 BP 147/86 02/23/25 11:25 Pulse Ox 92 L 02/23/25 11:25 FiO2 21 02/20/25 08:27 Intake & Output 02/22/25 02/23/25 02/23/25 18:59 06:59 18:59 Intake Total 240 0 Balance 240 0 Weight 57.7 kg Intake: Oral 240 0 Other: Voiding Method Toilet Toilet Toilet # Voids 2 1 # Bowel Movements 1 ABP, PAP, CO, CI - Last Documented Arterial Blood Pressure 99/57 - Labs CBC & Chem 7: 02/22/25 06:29 02/22/25 06:29
[2025-02-24] MEDS: LEVOTHYROXINE 88 MCG TAB PO SCH (06:38)
[2025-02-24 08:52] LABS: African American GFR (CKD) >90 (>60 ml/min/1.73 sqM); Anion Gap 2 mmol/L; Blood Urea Nitrogen 20 mg/dL (7-17); Calcium 8.6 mg/dL (8.4-10.2); Carbon Dioxide 32 mmol/L (22-30); Chloride 101 mmol/L (98-107); Glucose 96 mg/dL (74-99); Magnesium 1.7 mg/dL (1.6-2.3); Non-African American GFR(CKD) >90 (>60 ml/min/1.73 sqM); Potassium 3.5 mmol/L (3.5-5.1); Sodium 135 mmol/L (137-145)
[2025-02-24] MEDS: CHOLECALCIFEROL 25 MCG (1000 IU) TABLET PO SCH (10:33)
[2025-02-24] MEDS: SERTRALINE 100 MG TAB PO SCH (10:33)
[2025-02-24] MEDS: LORATADINE 10 MG TAB PO SCH (10:34)
[2025-02-24] MEDS: SENNOSIDES 8.6 MG TAB PO SCH (10:34)
[2025-02-24] MEDS: FOLIC ACID 1 MG TAB PO SCH (10:35)
[2025-02-24] MEDS: MULTIVITAMINS, THERA 1 EACH TAB PO SCH (10:41)
--- NOTE | 2025-02-24 14:02 | P.PN ---
Subjective Progress Note Date: 02/24/25 Principal diagnosis: Septic shock. The patient is seen today February 19, 2025 in follow-up on the regular medical floor. She is currently sitting up in a chair at the bedside. Awake and alert in no acute distress. Maintaining good O2 saturations in the 90s on 28% trach collar. She has been afebrile. Hemodynamically stable. Follow-up blood cultures revealed no growth. Sputum sample was positive for Pseudomonas aeruginosa. No new labs today. She remains on DuoNeb and elations, Pulmicort and performance inhalations, Singulair. She is continued on antibiotics in the form of meropenem. The patient is seen today February 20, 2025 in follow-up on the regular medical floor. She is awake and alert in no acute distress. Sitting up in bed. Maintaining O2 saturations in the 90s on 28% FiO2 via trach collar. She has been afebrile. Hemodynamically stable. White count 11.9. Hemoglobin 10.7. Platelets 332. Sodium 137. Potassium 3.9. Bicarb 34. BUN 22. Creatinine 0 .79. Glucose 131. She remains on DuoNeb inhalations, Pulmicort and Perforomist inhalations, Singulair, Solu-Medrol. She is continued on antibiotics in the form of meropenem. The patient is seen today February 21, 2025 in follow-up on the regular medical floor. She is sitting up in a chair at the bedside. Awake and alert in no acute distress. Maintaining O2 saturations in the 90s on room air oxygen. Speaking valve in place. White count 12.2. Hemoglobin 11.1. Platelets 321. Sodium 136. Potassium 3.5. Bicarb 33. BUN 22. Creatinine 0.69. Glucose 95. She remains on bronchodilators and steroids. NicoDerm patch in place. Continued on meropenem. She is anxious to be discharged. The patient is seen today February 22, 2025 in follow-up on the selective care unit. She is awake and alert in no acute distress. Resting comfortably in bed. Maintaining good O2 saturations in the 90s on room air oxygen. Speaking valve in place to the tracheostomy tube. Denies any worsening shortness of breath, cough or congestion. She is continued on DuoNeb inhalations, Pulmicort and performance inhalations, Singulair and a prednisone taper. NicoDerm patch in place. She remains on antibiotics in the form of meropenem. Heparin for DVT prophylaxis. Remains on oral diuretics. White count 10.5. Hemoglobin 10.1. Platelets 306. Sodium 137. Potassium 3.4. Bicarb 35. BUN 18. Creatinine 0. 75. Glucose 112. The patient is seen today February 23, 2025 in follow-up on the selective care unit. She is currently sitting up in a chair at the bedside. Awake and alert in no acute distress. Maintaining good O2 saturations in the 90s on room air oxygen. Afebrile. Hemodynamically stable. Continued on DuoNeb and elations, Pulmicort and performance inhalations, prednisone taper. NicoDerm patch in place. Heparin for DVT prophylaxis. Remains on meropenem per ID service. No new labs today. Progress note dated March 04, 2025. 54-year-old female seen in room 375. She is resting comfortably. She has a tracheostomy tube in. She has a speaking valve in. She is not requiring any supplemental oxygen, and has not required oxygen, for the last 3 to 4 days. She is receiving meropenem, every 8 hours. She is on room air. No IV fluids. From the pulmonary standpoint, she stable for discharge. Additional antibiotics, may be keeping her in the hospital. Current laboratory data includes a sodium 135, potassium 3.5, chlorides 101, CO2 32, BUN 20, creatinine 0.7. Glucose is 96. Calcium 8.6, magnesium 1.7. Objective - Vital Signs Vital signs: Vital Signs Temp 98.0 F 02/24/25 08:00 Pulse 92 02/24/25 12:12 Resp 17 02/24/25 08:00 BP 159/84 02/24/25 08:00 Pulse Ox 94 L 02/24/25 08:00 FiO2 21 02/23/25 20:30 Intake & Output 02/23/25 02/24/25 02/24/25 18:59 06:59 18:59 Intake Total 480 240 Balance 480 240 Weight 57.4 kg Intake: Oral 480 240 Other: Voiding Method Toilet Toilet # Voids 4 2 # Bowel Movements 1 ABP, PAP, CO, CI - Last Documented Arterial Blood Pressure 99/57 - Exam No acute distress, oriented 3. Not requiring any supplemental oxygen. HEENT examination is grossly unremarkable. Mucous membranes are moist. No oral lesions. Neck supple. Full range of motion. No adenopathy thyromegaly or neck vein distention. The patient has a midline tracheostomy tube, with a speaking valve. Cardiovascular examination reveals regular rhythm rate. S1-S2 normal. No S3 or S4. No discernible murmur noted. Lungs reveal clear breath sounds. Breath sounds are equal bilaterally. No adventitious lung sounds including wheezes rhonchi or crackles. Abdomen soft bowel sounds are heard. No masses or tenderness. Extremities are intact. No cyanosis clubbing or edema. Skin is without rash or lesion. Neurologic examination is brief but nonfocal. - Labs CBC & Chem 7: 02/22/25 06:29 02/24/25 07:44 Labs: Abnormal Lab Results - Last 24 Hours (Table) 02/24/25 Range/Units 07:44 Sodium 135 L (137-145) mmol/L Carbon Dioxide 32 H (22-30) mmol/L BUN 20 H (7-17) mg/dL Assessment and Plan Assessment: Acute hypoxemic and hypercapnic respiratory failure secondary to sepsis with septic shock and acute metabolic encephalopathy requiring mechanical ventilatory support. Uncuffed trach changed out to a cuffed #4 Shiley with speaking valve. History of prolonged respiratory failure requiring tracheostomy and PEG tube placement. Multiple neck and spine surgeries including thoracolumbar wound dehiscence. Advanced chronic obstructive pulmonary disease. Hypertension. Hyperlipidemia. Coronary disease. History of congestive heart failure. History of seizure disorder. Hypothyroidism. History of anxiety/depression/PTSD. Plan: Plan dated February 24, 2025. The patient is seen and evaluated, room 375. She is sitting in the chair next to the hospital bed. She is awake and alert. No distress. Clinically, she has been doing well. She has not required any supplemental oxygen for the last 3 to 4 days. She is not manifesting any signs or symptoms of respiratory distress. Labs, x-rays, medications are reviewed. The patient is receiving meropenem every 8 hours. From the pulmonary perspective, the patient could be considered for discharge. Moving forward, we will see the patient only as needed. Dictation was produced using [employer] software. Please excuse any grammatical, word or spelling errors. Time with Patient: Less than 30
--- NOTE | 2025-02-24 15:36 | P.PN ---
Subjective Progress Note Date: 02/24/25 Principal diagnosis: Reason for follow-up is pneumonia/positive blood culture Patient is a 54-year-old female with a past medical history significant for hypertension hyperlipidemia fibromyalgia chronic back pain in this patient who did have multiple surgeries to the thoracic spine admitted to the hospital concerning for pneumonia/sepsis. On today's evaluation that is 02/24/2025, the patient continues to be afebrile, the patient is on room air and breathing comfortably, the Pt denies having any chest pain and cough is significant decrease in intensity, the patient denies having any abdominal pain no vomiting or any diarrhea mention feeling better wants to go home. Patient did have a creatinine 0.70 white count was 10.54 as of 02/22/2025 Objective - Vital Signs Vital signs: Vital Signs Temp 98.4 F 02/24/25 12:00 Pulse 92 02/24/25 12:12 Resp 18 02/24/25 12:00 BP 144/78 02/24/25 12:00 Pulse Ox 95 02/24/25 12:00 FiO2 21 02/23/25 20:30 Intake & Output 02/23/25 02/24/25 02/24/25 18:59 06:59 18:59 Intake Total 480 480 Balance 480 480 Weight 57.4 kg Intake: Oral 480 480 Other: Voiding Method Toilet Toilet Toilet # Voids 4 2 2 # Bowel Movements 1 ABP, PAP, CO, CI - Last Documented Arterial Blood Pressure 99/57 - Exam GENERAL DESCRIPTION: Middle-age female lying in bed in no distress RESPIRATORY SYSTEM: Unlabored breathing , decreased breath sounds at bases HEART: S1 S2 regular rate and rhythm , ABDOMEN: Soft , no tenderness EXTREMITIES: No edema feet - Labs CBC & Chem 7: 02/22/25 06:29 02/24/25 07:44 Labs: Abnormal Lab Results - Last 24 Hours (Table) 02/24/25 Range/Units 07:44 Sodium 135 L (137-145) mmol/L Carbon Dioxide 32 H (22-30) mmol/L BUN 20 H (7-17) mg/dL Assessment and Plan (1) Pneumonia Current Visit: No Status: Acute Code(s): J18.9 - PNEUMONIA, UNSPECIFIED ORGANISM SNOMED Code(s): 053302715 (2) Positive blood culture Current Visit: Yes Status: Acute Code(s): R78.81 - BACTEREMIA SNOMED Code(s): 989190268 Plan: 1patient presented to hospital with episode of unresponsiveness/seizure patient noted to be significantly hypoxic requiring intubation and this patient did have a chronic tracheostomy from a previous episode of following intubation and respiratory failure, possible component of pneumonia/UTI not entirely excluded 2-patient did have positive blood culture with Staphylococcus simulans question of skin contamination versus true pathogen blood culture has been repeated which are negative so far 3sputum is growing Pseudomonas which is resistant to the cefepime and Zosyn, patient is currently treated with meropenem 1 g every 8 hours, today is day 7 out of 7 of her antibiotic therapy and the patient will be to go home after 4 PM dose this afternoon this was discussed with PRODUCTION MACHINE SHOP SUPERVISOR of admitting at the bedside Dictation was produced using [employer] dictation software. please excuse any grammatical, word or spelling errors. Time with Patient: Less than 30
[2025-02-24 17:03] VITALS: BP 136/81; PULSE 87; RESP 19; TEMP 98.1
== END 2025-02-24 17:20 | disposition home health service (06) | DRG 720 ==
LOC: EC 12:15 → 2SICU 15:25 → 3SCARD 02-17 17:39
PROVIDERS: ADMIT Hospitalist; ATTEND Hospitalist
PROC: 0B21XFZ Change Tracheostomy Device in Trachea, External Approach (ICD-10-PCS; principal; 2025-02-14)
PROC: 5A1945Z Respiratory Ventilation, 24-96 Consecutive Hours (ICD-10-PCS; principal; 2025-02-14)
PROC: 3E043XZ Introduction of Vasopressor into Central Vein, Percutaneous Approach (ICD-10-PCS; 2025-02-14)
PROC: 06HY33Z Insertion of Infusion Device into Lower Vein, Percutaneous Approach (ICD-10-PCS; 2025-02-14)
PROC: 4A133B1 Monitoring of Arterial Pressure, Peripheral, Percutaneous Approach (ICD-10-PCS; 2025-02-15)
PROC: 03HY32Z Insertion of Monitoring Device into Upper Artery, Percutaneous Approach (ICD-10-PCS; 2025-02-15)
PROC: 4A133J1 Monitoring of Arterial Pulse, Peripheral, Percutaneous Approach (ICD-10-PCS; 2025-02-15)
PROC: 05HA33Z Insertion of Infusion Device into Left Brachial Vein, Percutaneous Approach (ICD-10-PCS; 2025-02-20)
DX: A41.52 Sepsis due to Pseudomonas (principal); R65.21 Severe sepsis with septic shock; J96.22 Acute and chronic respiratory failure with hypercapnia; J15.1 Pneumonia due to Pseudomonas; J96.21 Acute and chronic respiratory failure with hypoxia; G92.8 Other toxic encephalopathy; Z93.0 Tracheostomy status; I50.9 Heart failure, unspecified; G40.909 Epilepsy, unspecified, not intractable, without status epilepticus; F31.9 Bipolar disorder, unspecified; T81.31XA Disruption of external operation (surgical) wound, not elsewhere classified, initial encounter; Z93.1 Gastrostomy status; F60.3 Borderline personality disorder; J44.1 Chronic obstructive pulmonary disease with (acute) exacerbation; J44.0 Chronic obstructive pulmonary disease with (acute) lower respiratory infection; R18.8 Other ascites; R13.10 Dysphagia, unspecified; I11.0 Hypertensive heart disease with heart failure; I25.10 Atherosclerotic heart disease of native coronary artery without angina pectoris; E03.9 Hypothyroidism, unspecified; G25.81 Restless legs syndrome; M79.7 Fibromyalgia; K21.9 Gastro-esophageal reflux disease without esophagitis; E78.5 Hyperlipidemia, unspecified; Z16.19 Resistance to other specified beta lactam antibiotics; Z16.12 Extended spectrum beta lactamase (ESBL) resistance; G43.909 Migraine, unspecified, not intractable, without status migrainosus; F43.10 Post-traumatic stress disorder, unspecified; F17.210 Nicotine dependence, cigarettes, uncomplicated; E86.0 Dehydration; K58.9 Irritable bowel syndrome, unspecified; G89.29 Other chronic pain; M54.9 Dorsalgia, unspecified; F41.9 Anxiety disorder, unspecified; R19.5 Other fecal abnormalities; I25.2 Old myocardial infarction; Z79.51 Long term (current) use of inhaled steroids; Z79.890 Hormone replacement therapy; Z79.899 Other long term (current) drug therapy; Z87.01 Personal history of pneumonia (recurrent); Z86.718 Personal history of other venous thrombosis and embolism; Z88.8 Allergy status to other drugs, medicaments and biological substances
CPT/HCPCS: 36410; 36415; 36600; 51702; 70450; 71045; 74018; 74177; 76937; 80048; 80053; 80202; 81001; 82805; 83605; 83735; 84484; 85025; 85027; 85610; 85730; 87040; 87070; 87075; 87077; 87186; 87205; 93005; 94002; 94003; 94640; 94760; 96361; 96365; 96366; 96368; 99291

== ENCOUNTER 2025-03-18 12:06 | Emergency (ER) | payer OTHER ==
[2025-03-18 12:10] VITALS: PULSE 0; RESP 0
--- NOTE | 2025-03-18 12:17 | ED ---
General Adult HPI - General Chief complaint: Cardiac Arrest/CPR Stated complaint: Cardiac Arrest Time Seen by Provider: 03/18/25 12:09 Source: EMS, RN notes reviewed, old records reviewed Mode of arrival: EMS Limitations: altered mental status - History of Present Illness Initial comments: 54-year-old female presenting as [id number]-oclasaps cardiac arrest. Patient was found by paramedics cold in a warm environment. Patient was in asystole. CPR was initiated and the patient was transported to the hospital. There was the possibility of a DNR although this was not confirmed. The patient had significant past medical history she had tracheostomy and PEG tube. She had a recent admission for sepsis approximately 1 month ago. The patient was in asys tole without any signs of life. Bedside echo was performed and showed cardiac standstill. Pupils were fixed and dilated. No spontaneous respirations - Related Data Home Medications Medication Instructions Recorded Confirmed Pantoprazole Sodium [Protonix] 40 mg PEG/G-TUBE DAILY 01/07/19 02/14/25 Topiramate [Trokendi Xr] 100 mg PEG/G-TUBE DAILY@0600 04/15/21 02/14/25 Albuterol Sulfate [Proair Hfa] 2 puff INHALATION RT-Q6H PRN 05/10/21 02/14/25 Prazosin HCl [Minipress] 2 mg PEG/G-TUBE BID 05/10/21 02/14/25 rOPINIRole HCL [Requip] 2 mg PEG/G-TUBE BID 05/10/21 02/14/25 Fluticasone/Umeclidin/Vilanter 1 puff INHALATION RT-DAILY 12/10/22 02/14/25 [Trelegy Ellipta 100-62.5-25] Brivaracetam [Briviact] 100 mg PEG/G-TUBE BID 07/10/23 02/14/25 Cetirizine HCl [Zyrtec] 10 mg PEG/G-TUBE DAILY 07/27/23 02/14/25 Fluticasone Nasal [place] [Flonase 1 spr EA NOSTRIL DAILY 07/27/23 02/14/25 Nasal [place]] Levothyroxine Sodium [Synthroid] 88 mcg PEG/G-TUBE DAILY 07/27/23 02/14/25 Propranolol [Inderal] 20 mg PEG/G-TUBE BID 07/27/23 02/14/25 Acetaminophen Tab [Tylenol] 500 mg PEG/G-TUBE Q6HR PRN 10/25/24 02/14/25 Cholecalciferol (Vitamin D3) 50 mcg PEG/G-TUBE DAILY 10/25/24 02/14/25 [Vitamin D3 (50 Mcg = 2000 Iu)] Montelukast [Singulair] 10 mg PEG/G-TUBE HS 10/25/24 02/14/25 busPIRone HCL 15 mg PEG/G-TUBE TID 10/25/24 02/14/25 Folic Acid 0.4 mg PEG/G-TUBE DAILY 12/04/24 02/14/25 Multivitamins, Thera [Multivitamin 1 tab PEG/G-TUBE DAILY 12/04/24 02/14/25 (formulary)] Sertraline HCl 200 mg PEG/G-TUBE DAILY 12/04/24 02/14/25 Tamsulosin HCl [Flomax] 0.4 mg PEG/G-TUBE DAILY 12/04/24 02/14/25 Budesonide [Pulmicort] 0.5 mg INHALATION RT-BID 02/14/25 02/14/25 Butalb/APAP/Caff 50-325-40Mg 1 tab PEG/G-TUBE Q8H PRN 02/14/25 02/14/25 [Fioricet 50-325-40] Cyclobenzaprine [Flexeril] 10 mg PEG/G-TUBE BID 02/14/25 02/14/25 Furosemide [Lasix] 20 mg PEG/G-TUBE BID 02/14/25 02/14/25 Gabapentin [Neurontin] 800 mg PEG/G-TUBE TID 02/14/25 02/14/25 Ibuprofen [Motrin] 800 mg PEG/G-TUBE Q8H PRN 02/14/25 02/14/25 Sennosides 8.6 mg PEG/G-TUBE DAILY 02/14/25 02/14/25 Umeclidinium [place] [Incruse 1 puff INHALATION RT-DAILY 02/14/25 02/14/25 Ellipta] hydrOXYzine pamoate [Vistaril] 50 mg PEG/G-TUBE TID PRN 02/14/25 02/14/25 rOPINIRole HCL [Requip] 1 mg PEG/G-TUBE BID 02/14/25 02/14/25 Previous Rx's Medication Instructions Recorded ALPRAZolam [Xanax] 0.5 mg PEG/G-TUBE BID PRN #4 tab 02/22/25 Acetaminophen-Codeine 300-30mg 1 tab PEG/G-TUBE TID PRN #4 tab 02/22/25 [Tylenol w/codeine #3] Formoterol Fumarate [Perforomist] 20 mcg INHALATION RT-BID ml 02/22/25 HYDROcodone/APAP 5-325MG [[place] 1 tab PEG/G-TUBE Q8H PRN #4 tab 02/22/25 5-325] Heparin Sodium,Porcine (1 ml) 5,000 unit SQ Q12HR each 02/22/25 [Heparin Sodium] Ipratropium-Albuterol Nebulize 3 ml INHALATION RT-Q4H PRN each 02/22/25 [Duoneb 0.5 mg-3 mg/3 ml Soln] Ipratropium-Albuterol Nebulize 3 ml INHALATION RT-QID each 02/22/25 [Duoneb 0.5 mg-3 mg/3 ml Soln] Nicotine 21Mg/24Hr Patch [Habitrol] 1 patch TRANSDERM DAILY patch 02/22/25 Asenapine [Saphris] 10 mg SUBLINGUAL BID tab 02/23/25 HYDROcodone/APAP 5-325MG [[place] 1 each PO Q8H PRN tab 02/24/25 5-325] predniSONE See Taper PO DIRECTED #18 tab 02/24/25 Allergies Allergy/AdvReac Type Severity Reaction Status Date / Time bee venom protein (honey bee) Allergy Anaphylaxis Verified 02/14/25 16:49 eszopiclone [From Lunesta] Allergy per PCP Verified 02/14/25 16:49 office list gabapentin Allergy per PCP Verified 02/14/25 16:49 office list but currently taking pregabalin [From Lyrica] Allergy per PCP Verified 02/14/25 16:49 office list Review of Systems ROS Statement: Those systems with pertinent positive or pertinent negative responses have been documented in the HPI. ROS Other: All systems not noted in ROS Statement are negative. Past Medical History Past Medical History: Asthma, Heart Failure, COPD, Deep Vein Thrombosis (DVT), Eye Disorder, Fibromyalgia, GERD/Reflux, Hyperlipidemia, Hypertension, Memory Impairment, Myocardial Infarction ([place]), Osteoarthritis (OA), Pneumonia, Seizure Disorder, Skin Disorder, Syncope, Thyroid Disorder Additional Past Medical History / Comment(s): IBS, colitis, restless legs flexed syndrome, daily migraines, Vitamin D deficiency, benign left breast mass, gastritis, short term memory loss. Vision - "sees an orange aura." BILAT CATARACTS Last seizure 09/22/2024, PT STATES THAT DR. VILLALBA IS AWARE"Legs are weak and balance is off." checked bone marrow for cancer. Pt has pressure ulcer over lower incision from surgery on 09/09/2024. States she had a blood clot in leg but not sure which leg or when Last Myocardial Infarction Date:: 2009 History of Any Multi-Drug Resistant Organisms: None Reported Past Surgical History: Back Surgery, Hysterectomy, Orthopedic Surgery Additional Past Surgical History / Comment(s): D&C, bilateral knee arthroscopy. Past Anesthesia/Blood Transfusion Reactions: No Reported Reaction Additional Past Anesthesia/Blood Transfusion Reaction / Comment(s): severe anxiety coming out of anesthesia,no hx blood transfusion Past Psychological History: Anxiety, Bipolar, Depression, PTSD Smoking Status: Current every day smoker Past Alcohol Use History: None Reported Past Drug Use History: Marijuana - Past Family History Father Family Medical History: Cancer Additional Family Medical History / Comment(s): Father of pancreatic cancer at the age of 62yrs. and lung cancer Mother Family Medical History: Congestive Heart Failure (CHF) Additional Family Medical History / Comment(s): Mother of CHF at the age of 60yrs. Brother(s) Additional Family Medical History / Comment(s): Patient had 1 brother that at 5 months of age. Sister(s) Family Medical History: Deep Vein Thrombosis (DVT) Additional Family Medical History / Comment(s): Patient has one sister with history of depression and bipolar. Patient has 2 half-sisters and one at age 26 from overdose. Patient does not have any children. General Exam General appearance: other Eye exam: Present: other (Pupils are 7 mm, fixed) ENT exam: Present: mucous membranes dry Respiratory exam: Present: other (Tracheostomy, BVM to assist respirations by paramedics upon arrival) Cardiovascular Exam: Present: other (Asystole on the monitor, no spontaneous heart sounds, cardiac standstill on echo) GI/Abdominal exam: Present: soft. Absent: distended Neurological exam: Present: other (No corneal reflex, no pupillary reflex, no spontaneous movement) Skin exam: Present: cyanosis, pallor Course Vital Signs 03/18/25 12:08 Pulse Rate 0 L Respiratory 0 L Rate Medical Decision Making - Medical Decision Making Was pt. sent in by a medical professional or institution ([facility]IA Mccullough, [facility], urgent care, hospital, or [facility]...) When possible be specific @ -No Did you speak to anyone other than the patient for history (EMS, parent, family, police, friend...)? What history was obtained from this source @ -No Did you review nursing and triage notes (agree or disagree)? Why? @ -I reviewed and agree with nursing and triage notes Were old charts reviewed (outside hosp., previous admission, EMS record, old EKG, old radiological studies, urgent care reports/EKG's, [facility] records)? Report findings @ -No old charts were reviewed Differential Diagnosis cardiac arrest, H's and T's EKG interpreted by me (3pts min.). @Asystole on the monitor X-rays interpreted by me (1pt min.). @ -None done CT interpreted by me (1pt min.). @ -None done U/S interpreted by me (1pt. min.). @ -None done What testing was considered but not performed or refused? (CT, X-rays, U/S, labs)? Why? @ -None What meds were considered but not given or refused? Why? @ -None Did you discuss the management of the patient with other professionals (professionals i.e. KESHIA Mccullough, [facility] [employer], lab, RT, psych nurse, hospital social worker, spanner operator, teacher, community resource officer, embedded case manager)? Give summary @ -No Was smoking cessation discussed for >3mins.? @ -No Was critical care preformed (if so, how long)? @ -No Were there social determinants of health that impacted care today? How? (H omelessness, low income, unemployed, alcoholism, drug addiction, transportation, low edu. Level, literacy, decrease access to med. care, senior care, rehab)? @ -No Was there de-escalation of care discussed even if they declined (Discuss DNR or withdrawal of care, Hospice)? DNR status @ -Possible DNR What co-morbidities impacted this encounter? (DM, HTN, Smoking, COPD, CAD, Cancer, CVA, ARF, Chemo, Hep., AIDS, mental health diagnosis, sleep apnea, morbid obesity)? @ -History of tracheostomy and PEG tube Was patient admitted / discharged? Hospital course, mention meds given and route, prescriptions, significant lab abnormalities, going to OR and other pertinent info. @54-year-old female, [id number] cardiac arrest, patient has no signs of life. Pupils are fixed and dilated. She is asystole on the monitor. No spontaneous respiration, no cardiac movement on bedside echo. Time of is called at 1208. The medical record technician will be contacted. Patient's primary care is Dr. Ballard he has been notified. Family will be notified. Undiagnosed new problem with uncertain prognosis? @ -No Drug Therapy requiring intensive monitoring for toxicity (Heparin, Nitro, Insulin, Cardizem)? @ -No Were any procedures done? @ -No Diagnosis/symptom? @Cardiopulmonary arrest Acute, or Chronic, or Acute on Chronic? @Acute Uncomplicated (without systemic symptoms) or Complicated (systemic symptoms)? @ -Default Side effects of treatment? @ -No Exacerbation, Progression, or Severe Exacerbation? @ -No Poses a threat to life or bodily function? How? (Chest pain, [place], [place], pneumonia, PE, COPD, DKA, ARF, appy, cholecystitis, CVA, Diverticulitis, Homicidal, Suicidal, threat to staff... and all critical care pts) @ - Disposition Clinical Impression: Cardiac arrest Disposition: Condition: Undetermined Is patient prescribed a controlled substance at d/c from ED?: No Referrals: None,Stated [REFERRING] - 1-2 days Time of Disposition: 12:08 Preliminary Cause of : Cardiopulmonary arrest
== END 2025-03-18 14:13 | disposition expired ==
LOC: SUPCPDRO 12:06 → EC 12:06
DX: I46.9 Cardiac arrest, cause unspecified (principal); F17.200 Nicotine dependence, unspecified, uncomplicated; Z91.030 Bee allergy status; Z88.8 Allergy status to other drugs, medicaments and biological substances
CPT/HCPCS: 99285